=== PATIENT | female | born 1965 | race Caucasian/White ===

== ENCOUNTER 2017-01-14 04:50 | Inpatient (IN) | payer BC, OTHER ==
[~2017-01-14] VITALS: Ht 170.2 cm; Wt 108.0 kg
[2017-01-14] VITALS (9 sets, daily range): BP systolic 130–183; BP diastolic 80–98
[~2017-01-14 04:50] MED LIST: AC500T; DULA0.75 SQ; ENAL5TAB PO; ESTR2TAB PO; FENO145T2 PO; FLUC200T PO; GLIM4TAB PO; HCT25T PO; LEVO125T6 PO; LVT.15T; MECL25TA3 PO; MEDR2.5T PO; MELO-195 PO; METF-380 PO; ONDA4TAB8 SL; OXYC-12 PO; ROSU10TA12 PO; SCP1.5TD TD; SITA50TA PO; VENL150T4 PO
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
[2017-01-14] MEDS ORDERED: NS IV 1000 ML 1,000 ML IV ONE ×2 (05:16→07:37)
[2017-01-14 05:23] LABS: BASOPHILS % (AUTO) 0 % (0-10); EOSINOPHILS # (AUTO) 0.1 10^3/uL (0.0-0.3); EOSINOPHILS % (AUTO) 1 % (0-10); LYMPHOCYTES # (AUTO) 1.2 X 10^3 (1.0-4.0); LYMPHOCYTES % (AUTO) 9 % (12-44); MEAN CORPUSCULAR HEMOGLOBIN 32 PG (25-34); MEAN CORPUSCULAR HGB CONC 35 G/DL (32-36); MEAN CORPUSCULAR VOLUME 90 FL (80-99); MEAN PLATELET VOLUME 10.8 FL (7.4-10.4); MONOCYTES # (AUTO) 1.1 X 10^3 (0.0-1.0); MONOCYTES % (AUTO) 8 % (0-12); NEUTROPHILS # (AUTO) 11.3 X 10^3 (1.8-7.8); NEUTROPHILS % (AUTO) 83 % (42-75); PLATELET COUNT 231 10^3/uL (130-400); RED BLOOD COUNT 4.09 10^6/uL (4.35-5.85); RED CELL DISTRIBUTION WIDTH 13.3 % (10.0-14.5); WHITE BLOOD COUNT 13.7 10^3/uL (4.3-11.0)
--- NOTE | 2017-01-14 05:24 | ED Abdominal Pain ---
General Chief Complaint: Abdominal/GI Problems Stated Complaint: ABD & BACK PAIN Nursing Triage Note: PT TO ED 5 W/ FOR C/O ABD, EPIGASTRIC PAIN, N/V ONSET 0 LAST NOC AFTER EATING A BAKED CHICKEN FROM [employer]. Sepsis Screen: No Definite Risk Source of Information: Patient, Spouse Exam Limitations: No Limitations (RIO HATFIELD) History of Present Illness Time Seen By Provider: 05:10 Initial Comments Patient has ER by private conveyance with chief complaint that after eating some baked chicken last night she began to experience epigastric pain and nausea with some vomiting nonbloody nonbilious approximately 1800 yesterday. She was unable sleep fairly well overnight and it was not getting better she was continuing to have nausea so he came to the ER. She does not have any history of coronary disease. She has had her gallbladder out but not appendix. She does not know she has diverticula of the colon. She says she's felt chills and lack she has a fever all night. She took Tylenol with little to no relief. She's having no shortness of breath or cough. She does not have pain on deep inspiration. She's had no acid reflux. Her pain does not improve with defecation. She had a bowel movement yesterday morning that was normal and formed. No diarrhea. (RIO HATFIELD) Allergies and Home Medications Allergies Coded Allergies: Codeine (Unverified Allergy, Mild, 06/16/08) Home Medications Dulaglutide 0.75 Mg/0.5 Ml Pen.injctr, 0.75 MG SQ UD, (Reported) Enalapril Maleate 5 Mg Tablet, 5 MG PO DAILY, (Reported) Estradiol 2 Mg Tablet, 2 MG PO DAILY, (Reported) Fluconazole 200 Mg Tablet, 200 MG PO UD, (Reported) 2x weekly Glimepiride 4 Mg Tablet, 4 MG PO DAILY, (Reported) Hydrochlorothiazide 25 Mg Tab, 25 MG PO DAILY, (Reported) Levothyroxine Sodium 125 Mcg Tablet, 1 EACH PO DAILY, (Reported) Meclizine HCl 25 Mg Tablet, 25 MG PO Q6H PRN for VERTIGO, #30 Ref 0 Prescribed by: ROSSANA BAE on 08/08/152035 Medroxyprogesterone Acetate 2.5 Mg Tablet, 2.5 MG PO DAILY, (Reported) Meloxicam 15 Mg Tablet, 15 MG PO DAILY, (Reported) Metformin Hcl 1,000 Mg Tablet, 1 EACH PO BID WITH MEALS, (Reported) Ondansetron 4 Mg Tab.rapdis, 4 MG SL Q4H PRN for NAUSEA/VOMITING, #10 Prescribed by: GRACIELA GILMORE on 01/04/15 5913 Venlafaxine Hcl 150 Mg Tab.osm.24, 150 MG PO DAILY, (Reported) Review of Systems Constitutional: chills, fever, malaise EENTM: No Blurred Vision, No Double Vision Respiratory: Denies Cough, Denies Shortness of Air Cardiovascular: Denies Chest Pain, Denies Lightheadedness, Denies Syncope Gastrointestinal: See HPI, Abdominal Pain, Denies Constipated, Denies Diarrhea , Nausea, Vomiting Genitourinary: Denies Burning, Denies Discharge Musculoskeletal: back pain (lumbar new), No joint pain Skin: No pruritus, No rash Psychiatric/Neurological: Denies Headache, Denies Numbness, Denies Paresthesia (RIO HATFIELD) Past Lxasolg-Rehicl-Upjsvn Hx Patient Social History Alcohol Use: Denies Use Recreational Drug Use: No Smoking Status: Never a Smoker Recent Foreign Travel: No Contact w/Someone Who Travel: No Recent Infectious Disease Expo: No Recent Hopitalizations: No Physical Abuse: No Sexual Abuse: No Mistreated: No Fear: No (RIO HATFIELD) Seasonal Allergies Seasonal Allergies: No (RIO HATFIELD) Surgeries History of Surgeries: Yes (08/11/14 B[employer] SERV[employer] shunt for treatment of hydrocephalus) Surgeries: Gallbladder (RIO HATFIELD) Respiratory History of Respiratory Disorde: No (RIO HATFIELD) Cardiovascular History of Cardiac Disorders: Yes Cardiac Disorders: High Cholesterol, Hypertension (RIO HATFIELD) Neurological History of Neurological Disord: Yes (HYDROCEPHALUS, WITH POOR BALANCE AND URINARY INCONTINENCE) Neurological Disorders: Headaches /Migraines (RIO HATFIELD) Gastrointestinal History of Gastrointestinal Di: No (RIO HATFIELD) Musculoskeletal History of Musculoskeletal Dis: Yes Musculoskeletal Disorders: Arthritis, Chronic Back Pain (RIO HATFIELD) Endocrine History of Endocrine Disorders: Yes Endocrine Disorders: Hypothyroidsim, Diabetes, Non-Insulin dep (RIO HATFIELD) Cancer History of Cancer: No (RIO HATFIELD) Psychosocial History of Psychiatric Problem: No Suicide Risk Score: 0 (RIO HATFIELD) Integumentary History of Skin or Integumenta: No (RIO HATFIELD) Blood Transfusions History of Blood Disorders: No (RIO HATFIELD) Family Medical History Significant Family History: No Pertinent Family Hx (RIO HATFIELD) Physical Exam Vital Signs VS - Last 72 Hours, by Label 01/14/17 04:55 Temp 94.4 Pulse 73 Resp 18 B/P (MAP) 153/93 Pulse Ox 97 O2 Delivery Room Air (GRACIELA COOPER MD) Vital Signs Capillary Refill : Less Than 3 Seconds (RIO HATFIELD) General Appearance: WD/WN, mild distress HEENT: PERRL/EOMI, pharynx normal Neck: non-tender, supple, normal inspection Respiratory: chest non-tender, lungs clear, normal breath sounds, no respiratory distress Cardiovascular: normal peripheral pulses, regular rate, rhythm, no edema, systolic murmur (03/07) Peripheral Pulses: 2+ Dorsalis Pedis (R), 2+ Left Dors-Pedis (L) Gastrointestinal: normal bowel sounds, guarding, No rebound, tenderness ( epigastric, right upper quadrant but diffusely tender everywhere), No hepatomegaly, No spleenomegaly Extremities: non-tender, normal inspection, no pedal edema, no calf tenderness , normal capillary refill Back: normal inspection, no CVA tenderness Neurologic/Psychiatric: alert, normal mood/affect, oriented x 3 Skin: normal color, warm/dry (RIO HATFIELD) Focused Exam Evaluation Lactate Level Laboratory Tests 01/14/17 05:18: Lactic Acid Level 3.15*H 01/14/17 07:02: Lactic Acid Level 3.60*H (GRACIELA COOPER MD) Lactic Acid Level Laboratory Tests Test 01/14/17 05:18 01/14/17 07:02 Lactic Acid Level 3.15 MMOL/L (0.50-2.00) *H 3.60 MMOL/L (0.50-2.00) *H (GRACIELA COOPER MD) Progress/Results/Core Measures Results/Orders Lab Results Laboratory Tests Test 01/14/17 05:11 01/14/17 05:18 01/14/17 06:46 01/14/17 07:02 Range/Units White Blood Count 13.7 H 4.3-11.0 10^3/uL Red Blood Count 4.09 L 4.35-5.85 10^6/uL Hemoglobin 12.9 11.5-16.0 G/DL Hematocrit 37 35-52 % Mean Corpuscular Volume 90 80-99 FL Mean Corpuscular Hemoglobin 32 25-34 PG Mean Corpuscular Hemoglobin Concent 35 32-36 G/DL Red Cell Distribution Width 13.3 10.0-14.5 % Platelet Count 231 130-400 10^3/uL Mean Platelet Volume 10.8 H 7.4-10.4 FL Neutrophils (%) (Auto) 83 H 42-75 % Lymphocytes (%) (Auto) 9 L 12-44 % Monocytes (%) (Auto) 8 0-12 % Eosinophils (%) (Auto) 1 0-10 % Basophils (%) (Auto) 0 0-10 % Neutrophils # (Auto) 11.3 H 1.8-7.8 X 10^3 Lymphocytes # (Auto) 1.2 1.0-4.0 X 10^3 Monocytes # (Auto) 1.1 H 0.0-1.0 X 10^3 Eosinophils # (Auto) 0.1 0.0-0.3 10^3/uL Basophils # (Auto) 0.0 0.0-0.1 10^3/uL Prothrombin Time 11.0 L 12.2-14.7 SEC INR Comment 0.8 0.8-1.4 Activated Partial Thromboplast Time 29 24-35 SEC Sodium Level 127 L 135-145 MMOL/L Potassium Level 3.2 L 3.6-5.0 MMOL/L Chloride Level 89 L 98-107 MMOL/L Carbon Dioxide Level 9 *L 21-32 MMOL/L Anion Gap 29 H 5-14 MMOL/L Blood Urea Nitrogen 15 7-18 MG/DL Creatinine 0.77 0.60-1.30 MG/DL Estimat Glomerular Filtration Rate > 60 BUN/Creatinine Ratio 19 Glucose Level 282 H 70-105 MG/DL Calcium Level 9.2 8.5-10.1 MG/DL Magnesium Level 1.9 1.8-2.4 MG/DL Total Bilirubin 0.4 0.1-1.0 MG/DL Aspartate Amino Transf (AST/SGOT) 18 5-34 U/L Alanine Aminotransferase (ALT/SGPT) 32 0-55 U/L Alkaline Phosphatase 73 40-136 U/L Total Protein 8.0 6.4-8.2 GM/DL Albumin 3.8 3.2-4.5 GM/DL Lipase 7007 H 8-78 U/L Salicylates Level < 5.0 L 5.0-20.0 MG/DL Acetaminophen Level < 10 L 10-30 UG/ML Serum Alcohol < 10 <10 MG/DL Lactic Acid Level 3.15 *H 3.60 *H 0.50-2.00 MMOL/L Urine Color YELLOW Urine Clarity CLEAR Urine pH 8 5-9 Urine Specific [place] 1.010 L 1.016-1.022 Urine Protein 1+ H NEGATIVE Urine Glucose (UA) 4+ H NEGATIVE Urine Ketones 3+ H NEGATIVE Urine Nitrite NEGATIVE NEGATIVE Urine Bilirubin NEGATIVE NEGATIVE Urine Urobilinogen NORMAL NORMAL MG/DL Urine Leukocyte Esterase NEGATIVE NEGATIVE Urine RBC (Auto) NEGATIVE NEGATIVE Urine RBC NONE /HPF Urine WBC NONE /HPF Urine Squamous Epithelial Cells 0-2 /HPF Urine Crystals NONE /LPF Urine Bacteria NEGATIVE /HPF Urine Casts NONE /LPF Urine Mucus NEGATIVE /LPF Urine Culture Indicated NO Carboxyhemoglobin 2.5 0.5-2.5 % (GRACIELA COOPER MD) My Orders Orders - GRACIELA COOPER MD Promethazine Injection (Phenergan Injec (01/14/17 06:45) Promethazine Injection (Phenergan Injec (01/14/17 06:29) Morphine Injection (Morphine Injection (01/14/17 06:45) Ns Iv 1000 Ml (Sodium Chloride 0.9%) (01/14/17 07:37) (GRACIELA COOPER MD) Medications Given in ED Current Medications Medications Dose Ordered Sig/Shabana Route Start Time Stop Time Status Last Admin Dose Admin Fentanyl Citrate 50 mcg ONCE ONCE IVP 01/14/17 05:30 01/14/17 05:31 DC 01/14/17 05:26 50 MCG Iohexol 100 ml ONCE ONCE IV 01/14/17 06:30 01/14/17 06:31 DC 01/14/17 06:30 100 ML Ondansetron HCl 4 mg ONCE ONCE IVP 01/14/17 05:30 01/14/17 05:31 DC 01/14/17 05:26 4 MG Ondansetron HCl 4 mg ONCE ONCE IVP 01/14/17 06:00 01/14/17 06:01 DC 01/14/17 06:00 4 MG Piperacillin Sod/ Tazobactam Sod 4.5 gm/Sodium Chloride 100 ml @ 200 mls/hr ONCE ONCE IV 01/14/17 06:00 01/14/17 06:29 DC 01/14/17 07:29 200 MLS/HR Promethazine HCl 25 mg ONCE ONCE IVP 01/14/17 06:45 01/14/17 06:46 DC 01/14/17 06:41 25 MG Sodium Chloride 100 ml ONCE ONCE IV 01/14/17 06:30 01/14/17 06:31 DC 01/14/17 06:30 80 ML Sodium Chloride 1,000 ml @ 0 mls/hr Q0M ONCE IV 01/14/17 05:16 01/14/17 05:19 DC 01/14/17 05:26 1,000 MLS/HR (GRACIELA COOPER MD) Vital Signs/I&O Vital Sign - Last 12Hours 01/14/17 04:55 Temp 94.4 Pulse 73 Resp 18 B/P (MAP) 153/93 Pulse Ox 97 O2 Delivery Room Air (GRACIELA COOPER MD) Blood Pressure Mean: 113 Progress Note #1: Time: 05:30 Progress Note Pancreatitis versus diverticulitis versus PUD versus mesenteric ischemia. Progress Note #2: Time: 06:06 Progress Note Patient has an anion gap metabolic acidosis so we'll add an ethanol, salicylate , Tylenol, carboxyhemoglobin to her lab battery. She's improving somewhat with fluids. Progress Note #3: Time: 06:20 Progress Note Care transferred to Dr. Gilmore. Discussed case lab imaging and plan to get imaging of abdomen and chest looking for a source of the metabolic acidosis and lactic acidosis. (RIO HATFIELD) Progress Note #1: Time: 06:43 Progress Note Care of this patient was assumed from Dr. Hatfield. Case was reviewed in detail with Dr. Hatfield. We discussed labs and viewed the CT together. There are significant inflammatory changes in the upper abdomen around the duodenum. No free air was identified. Radiologist read is pending. Patient is still feeling rather ill with nausea and pain. Phenergan 25 mg has been ordered to be administered with the next liter of normal saline. Patient has received 1 L of saline so far. She will also receive a dose of Zosyn as intra-abdominal infection is presumed based on CT results. Blood cultures have been drawn. Morphine will be given for further pain relief. [employer] shunt was noted on the CT scan and terminates in the right lower abdomen. It does not seem to be involved in any area of inflammation seen on imaging. Progress Note #2: Time: 07:[address] scan revealed pancreatitis. Lipase was 7007. Patient reports her pain was not completely relieved with morphine. Nausea is improving with Phenergan. Patient has now received 2 L of IV fluids. Zosyn is being initiated. Case was reviewed with Dr. Dunham who agrees with admission. Sepsis will be included on the diagnoses as it cannot be ruled out at this time. Potassium 10 mEq is also being run. Consult for PICC line will be added to admission orders as patient has poor venous potential. (GRACIELA COOPER MD) Diagnostic Imaging Diagonstic Imaging: Xray Plain Films/CT/US/NM/MRI: chest (2v) Reviewed: Reviewed by Me Diagonstic Imaging: CT Plain Films/CT/US/NM/MRI: abdomen, pelvis (with contrast) Reviewed: Reviewed Night Joseph Study, Reviewed by Me (RIO HATFIELD) Comments CT scans viewed by me and [employer] report reviewed. See report below: 1. Acute pancreatitis without pancreatic necrosis or peripherally enhancing peripancreatic fluid collection. 2. Status post cholecystectomy without, and bile duct dilatation. 3. Hepatomegaly with steatosis. 4. B[employer] shunt. 5. Small sliding hiatal hernia. (GRACIELA COOPER MD) Transfer of Care Transfer of Care Time: 06:21 Care transferred to: Dr. Gilmore (RIO HATFIELD) Departure Communication (Admissions) Time/Spoke to Admitting Phy: 07:[address] Dunham (GRACIELA COOPER MD) Impression Impression: Primary Impression: Acute pancreatitis Qualified Codes: K85.90 - Acute pancreatitis without necrosis or infection, unspecified Additional Impressions: Metabolic acidosis Hypokalemia Hyponatremia Hypochloremia Sepsis Qualified Codes: A41.9 - Sepsis, unspecified organism Disposition: 09 ADMITTED INPATIENT Condition: Improved Admissions Decision to Admit Reason: Admit from ER (General) Decision to Admit/Date: Jan 14, 2017 Time/Decision to Admit Time: 06:04 (RIO HATFIELD) Decision to Admit Reason: Admit from ER (General) Decision to Admit/Date: Jan 14, 2017 Time/Decision to Admit Time: 06:04 (GRACIELA COOPER MD) Departure-Patient Inst. Referrals: ROSS DUNHAM MD (PCP/Family) Primary Care Physician Copy Copies To 1: ROSS DUNHAM MD, TITUS J Jan 14, 2017 05:24 GRACIELA COOPER MD Jan 14, 2017 06:49
[2017-01-14] MEDS ORDERED: fentaNYL INJECTION 100 MCG/2 ML AMP IVP ONE (05:30)
[2017-01-14] MEDS ORDERED: ONDANSETRON 4 MG/2 ML (SDV) Z0FRAN IVP ONE ×2 (05:30→06:00)
[2017-01-14 05:50] LABS: ALANINE AMINOTRANSFERASE 32 U/L (0-55); ALBUMIN 3.8 GM/DL (3.2-4.5); ASPARTATE AMINO TRANSFERASE 18 U/L (5-34); BILIRUBIN,TOTAL 0.4 MG/DL (0.1-1.0); BLOOD UREA NITROGEN 15 MG/DL (7-18); BUN/CREATININE RATIO 19; CALCIUM 9.2 MG/DL (8.5-10.1); CHLORIDE 89 MMOL/L (98-107); CREATININE SERUM 0.77 MG/DL (0.60-1.30); GFR ESTIMATED > 60; GLUCOSE 282 MG/DL (70-105); MAGNESIUM 1.9 MG/DL (1.8-2.4); POTASSIUM 3.2 MMOL/L (3.6-5.0); SODIUM 127 MMOL/L (135-145)
[2017-01-14 05:56] LABS: ANION GAP 29 MMOL/L (5-14); CARBON DIOXIDE 9 MMOL/L (21-32)
[2017-01-14 05:59] LABS: INR 0.8 (0.8-1.4)
[2017-01-14] MEDS ORDERED: PIPERACILLIN SODIUM/TAZOBACTAM 4.5 GM in NS (IVPB) 100 ML IV ONE (06:00)
[2017-01-14] MEDS ORDERED: POTASSIUM CL 10MEQ/50ML IVPB 50 ML IV ONE (06:15)
[2017-01-14 06:27] LABS: ALCOHOL < 10 MG/DL (<10)
[2017-01-14 06:29] LABS: ACETAMINOPHEN < 10 UG/ML (10-30)
[2017-01-14] MEDS ORDERED: PROMETHAZINE INJ 25 MG/ML (PHENERGAN) AMP ONE (06:29)
[2017-01-14] MEDS ORDERED: NS 100 ML (IVPB) BAG IV ONE (06:30)
[2017-01-14] MEDS ORDERED: IOHEXOL 350 MG/ML 100 ML (OMNIPAQUE 350) VIAL IV ONE (06:30)
[2017-01-14] MEDS: NS IV 1000 ML 1,000 ML IV SCH ×3 (06:41→10:42)
[2017-01-14 06:44] LABS: LIPASE 7007 U/L (8-78)
[2017-01-14] MEDS ORDERED: morphine INJ 10 MG/ML 1ML (SYR OR VIAL) IVP ONE (06:45)
[2017-01-14] MEDS ORDERED: PROMETHAZINE INJ 25 MG/ML (PHENERGAN) AMP IVP ONE (06:45)
[2017-01-14 06:49] LABS: SALICYLATE < 5.0 MG/DL (5.0-20.0)
[2017-01-14 06:54] LABS: BILIRUBIN,URINE NEGATIVE (NEGATIVE); KETONES,URINE 3+ (NEGATIVE); LEUKOCYTE ESTERASE ,URINE NEGATIVE (NEGATIVE); NITRITE,URINE NEGATIVE (NEGATIVE); PH,URINE 8 (5-9); PROTEIN,URINE 1+ (NEGATIVE); UROBILINOGEN,URINE NORMAL (NORMAL)
[2017-01-14 07:01] LABS: SQUAMOUS EPITHELIAL CELL,UR 0-2 /HPF
--- NOTE | 2017-01-14 07:55 | Diagnostic Imaging Report ---
PROCEDURE: CT abdomen and pelvis with contrast. TECHNIQUE: Multiple contiguous axial images were obtained through the abdomen and pelvis after administration of intravenous contrast. INDICATION: Nausea after eating chicken. FINDINGS: Lung bases are clear. There is edema surrounding the head of the pancreas. The head of the pancreas is slightly enlarged. Body and tail of the pancreas appear normal. Pancreatic duct is not dilated. Bile ducts are not dilated. There is hepatomegaly with hepatic steatosis. The spleen appears normal. The adrenal glands are normal. The kidneys appear normal. There is normal enhancement of the abdominal organs and vessels following IV contrast. Stomach and small bowel are not distended. The colon shows normal stool and gas pattern. No pelvic masses. Bladder appears normal. RN ONCOLOGY CLINICAL shunt is noted in the right side of the abdomen. IMPRESSION: 1. Hepatomegaly with hepatic steatosis. 2. Findings are consistent with acute pancreatitis. No evidence of pancreatic necrosis or hemorrhage. Dictated by: Dictated on workstation # [id number]
--- NOTE | 2017-01-14 07:56 | Diagnostic Imaging Report ---
INDICATION: Nausea and vomiting. FINDINGS: PA and lateral chest show the lungs to be well-aerated and clear. Heart is not enlarged. No pulmonary edema. No pneumothorax or pleural effusion. IMPRESSION: Normal PA and lateral chest. Dictated by: Dictated on workstation # [id number]
--- NOTE | 2017-01-14 08:43 | History & Physicial ---
History of Present Illness History of Present Illness Reason for visit/HPI PT IS A 51 Y/O FEMALE WHO IS KNOWN TO ME FROM CLINIC. SHE PRESENTED TO THE HOSPITAL WITH COMPLAINT OF NAUSEA, ABDOMINAL PAIN, AND WAS FOUND TO HAVE ACUTE PANCREATITIS AND METABOLIC ACIDOSIS. Date of Admission Jan 14, 2017 at 07:37 Time Seen by Provider: 08:45 I consulted on this patient on 01/14/17 08:38 Attending Physician Ross Dunham MD Admitting Physician Ross Dunham MD Consult Allergies and Home Medications Allergies Coded Allergies: codeine (Unverified Allergy, Mild, 06/16/08) Home Medications Dulaglutide 0.75 Mg/0.5 Ml Pen.injctr, 0.75 MG INJ Tu, (Reported) Enalapril Maleate 5 Mg Tablet, 5 MG PO DAILY, (Reported) Estradiol 2 Mg Tablet, 2 MG PO HS, (Reported) Fenofibrate Nanocrystallized 145 Mg Tablet, 145 MG PO HS, (Reported) LAST FILLED #30 10-08-16 Fluconazole 200 Mg Tablet, 200 MG PO MoTh, (Reported) Glimepiride 4 Mg Tablet, 4 MG PO DAILY, (Reported) Hydrochlorothiazide 25 Mg Tablet, 25 MG PO DAILY, (Reported) Levothyroxine Sodium 125 Mcg Tablet, 125 MCG PO DAILY, (Reported) Medroxyprogesterone Acetate 2.5 Mg Tablet, 2.5 MG PO DAILY, (Reported) Meloxicam 15 Mg Tablet, 15 MG PO DAILY, (Reported) Metformin HCl 1,000 Mg Tablet, 1,000 MG PO BID, (Reported) Pravastatin Sodium 10 Mg Tablet, 10 MG PO HS, (Reported) Venlafaxine HCl 150 Mg Cap.er.24h, 150 MG PO 1900, (Reported) Past Xkuqerd-Tzfdtf-Mkryiv Hx Patient Social History Living Status: [place] Employed/Student: employed Alcohol Use: Denies Use Recreational Drug Use: No Smoking Status: Never a Smoker 2nd Hand Smoke Exposure: No Physical Abuse Screen: No Sexual Abuse: No Recent Foreign Travel: No Contact w/other who traveled: No Recent Hopitalizations: No Recent Infectious Disease Expo: No Seasonal Allergies Seasonal Allergies: No Surgeries Yes (08/11/14 POSTAL MAIL CARRIER shunt for treatment of hydrocephalus) Gallbladder Respiratory No Cardiovascular Yes High Cholesterol, Hypertension Neurological Yes (HYDROCEPHALUS, WITH POOR BALANCE AND URINARY INCONTINENCE) Headaches /Migraines Gastrointestinal No Musculoskeletal Yes Arthritis, Chronic Back Pain Endocrine History of Endocrine Disorders: Yes Endocrine Disorders: Hypothyroidsim, Diabetes, Non-Insulin dep Cancer No Psychosocial History of Psychiatric Problem: Yes Behavioral Health Disorders: Depression Integumentary History of Skin or Integumenta: No Blood Transfusions History of Blood Disorders: No Reviewed Nursing Assessment Reviewed/Agree w Nursing PMH: Yes Family Medical History Significant Family History: Hypertension Constitutional: No chills, fever, malaise, weakness EENTM: No hoarseness, No throat pain Respiratory: No cough, No dyspnea on exertion, No short of breath Cardiovascular: No chest pain, No edema, No palpitations Gastrointestinal: abdominal pain, diarrhea, nausea, vomiting Genitourinary: no symptoms reported Musculoskeletal: No back pain, No muscle stiffness, No muscle weakness Skin: no symptoms reported Psychiatric/Neurological: Denies Anxiety, Denies Depressed All Other Systems Reviewed Negative Unless Noted: Yes Physical Exam Vital Signs Vital Sign - Last 12Hours 01/14/17 04:55 Temp 94.4 Pulse 73 Resp 18 B/P (MAP) 153/93 Pulse Ox 97 O2 Delivery Room Air Capillary Refill : Less Than 3 Seconds General Appearance: WD/WN, Mild Distress Eyes: Bilateral Eye Normal Inspection, Bilateral Eye PERRL, Bilateral Eye EOMI HEENT: PERRL/EOMI, Pharynx Normal Neck: Full Range of Motion, Non Tender, Supple Respiratory: Chest Non Tender, Lungs Clear, Normal Breath Sounds, No Accessory Muscle Use Cardiovascular: Tachycardia Gastrointestinal: Soft, Tenderness (DIFFUSELY) Rectal: Deferred Back: Normal Inspection Extremity: Normal Capillary Refill, Non Tender, No Calf Tenderness, No Pedal Edema Neurologic/Psychiatric: Alert, Oriented x3, Normal Mood/Affect Skin: Warm/Dry Lymphatic: No Adenopathy Assessment/Plan Assessment and Plan ACUTE PANCREATITIS SEPSIS METABOLIC ACIDOSIS HYPONATREMIA HYPOKALEMIA DIABETES MELLITUS HYPERTENSION ACUTE PANCREATITIS - IV ANTIBIOTICS, IV FLUIDS, NPO EXCEPT ICE CHIPS CT SCAN IMPRESSION FOLLOWS: IMPRESSION: 1. Hepatomegaly with hepatic steatosis. 2. Findings are consistent with acute pancreatitis. No evidence of pancreatic necrosis or hemorrhage. SEPSIS - ON ZOSYN IV METABOLIC ACIDOSIS - MONITOR LABS, SUPPORTIVE CARE WITH IV FLUIDS, ANTICIPATE IMPROVEMENT PT IS HYDRATED AND HER SEPSIS AND ACUTE PANCREATITIS IS TREATED. HYPONATREMIA AND HYPOKALEMIA - SUPPORTIVE CARE, IV FLUIDS, MONITOR LABS. DIABETES MELLITUS - MONITOR LABS, WILL TREAT WITH INSULIN IV PRN, HOLD ALL HOME DIABETIC MEDICATIONS. HYPERTENSION - CHRONIC - MONITOR PRESSURE HOLD ORAL HOME MEDICATIONS. DVT PROPHYLAXIS WILL BE WITH SCD'S AND LOVENOX. GI PROPHYLAXIS WITH IV PROTONIX Problems: Admission Diagnosis ACUTE PANCREATITIS SEPSIS METABOLIC ACIDOSIS HYPONATREMIA HYPOKALEMIA DIABETES MELLITUS HYPERTENSION ROSS DUNHAM MD Jan 14, 2017 08:43
[2017-01-14] MEDS ORDERED: fentaNYL INJECTION 100 MCG/2 ML AMP IVP PRN (09:00)
[2017-01-14] MEDS ORDERED: NS IV 1000 ML 1,000 ML IV SCH (09:04)
[2017-01-14] MEDS ORDERED: NS IV 1000 ML 2,500 ML IV PRN (09:15)
[2017-01-14] MEDS ORDERED: NALOXONE 0.4 MG/ML 1 ML (NARCAN) VIAL IV PRN (09:15)
[2017-01-14] MEDS ORDERED: diphenhydrAMINE 50 MG/ML INJ (BENADRYL) IV PRN (09:15)
[2017-01-14] MEDS ORDERED: PROMETHAZINE INJ 25 MG/ML (PHENERGAN) AMP IV PRN (09:30)
[2017-01-14] MEDS: FAMOTIDINE 20MG/2ML IV (PEPCID) IV SCH ×2 (09:43→21:22)
[2017-01-14] MEDS: ENOXAPARIN 40 MG/0.4 ML (LOVENOX) SYR SC SCH (09:43)
[2017-01-14] MEDS ORDERED: PRAV10TA PO (10:11)
[2017-01-14] MEDS ORDERED: ENAL5TAB PO (10:11)
[2017-01-14] MEDS ORDERED: DULA0.75 INJ (10:11)
[2017-01-14] MEDS ORDERED: VENL150C98 PO (10:11)
[2017-01-14] MEDS ORDERED: GLIM4TAB PO (10:11)
[2017-01-14] MEDS ORDERED: LEVO125T6 PO (10:11)
[2017-01-14] MEDS ORDERED: HYDR25TA4 PO (10:11)
[2017-01-14] MEDS ORDERED: ESTR2TAB PO (10:11)
[2017-01-14] MEDS ORDERED: FENO145T20 PO (10:11)
[2017-01-14] MEDS: fentaNYL PCA 300 MCG/30 ML VIAL IV PRN ×2 (10:18→23:01)
[2017-01-14] MEDS ORDERED: MELO15TA39 PO (10:20)
[2017-01-14] MEDS ORDERED: METF1000 PO (10:20)
[2017-01-14] MEDS ORDERED: FLUC200T5 PO (10:20)
[2017-01-14] MEDS ORDERED: MEDR2.5T PO (10:26)
[2017-01-14] MEDS: inSUlin (REGULAR) HUMAN 1 UNIT/0.01 ML (CHARGE PER UNIT) SC SCH ×2 (12:10→17:59)
[2017-01-14] MEDS: ONDANSETRON 4 MG/2 ML (SDV) Z0FRAN IV PRN (13:30)
[2017-01-14] MEDS ORDERED: INFLUENZA TRIvalent 2017-2018 0.5 ML/45 MCG SYR IM ONE (14:15)
[2017-01-14] MEDS: NS W/KCL 20 MEQ/L 1,000 ML IV SCH ×3 (14:23→22:43)
[2017-01-14] MEDS: PIPERACILLIN/TAZOBACTAM 4.5 GM/NS 100 ML IVPB IV SCH ×4 (14:23→21:22)
[2017-01-14] MEDS ORDERED: NS (IVPB) 0 ML ONE (22:30)
[2017-01-14] MEDS ORDERED: CEFUROXIME 750 MG (ZINACEF) VIAL ONE (22:30)
[2017-01-15] VITALS: BP 137/88
[2017-01-15] MEDS: inSUlin (REGULAR) HUMAN 1 UNIT/0.01 ML (CHARGE PER UNIT) SC SCH ×5 (00:18→21:43)
[2017-01-15] MEDS: ONDANSETRON 4 MG/2 ML (SDV) Z0FRAN IV PRN (02:48)
[2017-01-15 04:00] VITALS: BP 124/89
[2017-01-15] MEDS: PIPERACILLIN/TAZOBACTAM 4.5 GM/NS 100 ML IVPB IV SCH ×6 (05:45→21:07)
[2017-01-15 06:05] LABS: MEAN PLATELET VOLUME 11.4 FL (7.4-10.4); RED BLOOD COUNT 4.79 10^6/uL (4.35-5.85); RED CELL DISTRIBUTION WIDTH 14.6 % (10.0-14.5); WHITE BLOOD COUNT 6.2 10^3/uL (4.3-11.0)
[2017-01-15] MEDS: NS W/KCL 20 MEQ/L 1,000 ML IV SCH (06:32)
[2017-01-15 06:43] LABS: ALANINE AMINOTRANSFERASE 23 U/L (0-55); ALBUMIN 2.9 GM/DL (3.2-4.5); ASPARTATE AMINO TRANSFERASE 25 U/L (5-34); BILIRUBIN,TOTAL 0.4 MG/DL (0.1-1.0); BLOOD UREA NITROGEN 16 MG/DL (7-18); BUN/CREATININE RATIO 16; CALCIUM 6.2 MG/DL (8.5-10.1); CHLORIDE 103 MMOL/L (98-107); CREATININE SERUM 0.99 MG/DL (0.60-1.30); GFR ESTIMATED 59; GLUCOSE 340 MG/DL (70-105); POTASSIUM 4.5 MMOL/L (3.6-5.0); SODIUM 132 MMOL/L (135-145); TOTAL PROTEIN 6.9 GM/DL (6.4-8.2)
[2017-01-15 06:45] LABS: ANION GAP 24 MMOL/L (5-14)
[2017-01-15 06:55] LABS: CARBON DIOXIDE < 5 MMOL/L (21-32)
[2017-01-15 08:00] VITALS: BP 128/80
--- NOTE | 2017-01-15 08:27 | Progress Note (SOAP) ---
Subjective Date Seen by Provider: Jan 15, 2017 Time Seen by Provider: 08:25 Subjective/Events-last exam PT REPORTS THAT SHE DOES FEEL A LITTLE BIT BETTER TODAY COMPARED TO YESTERDAY. SHE REPORTS THAT SHE IS TOLERATING THE ICE CHIPS WITHOUT INCIDENT AND THAT SHE THINKS HER PAIN IS IMPROVED TODAY. Review of Systems General: No Chills, Fatigue HEENT: No Head Aches, No Dysphasia, No Sore Throat Pulmonary: No Dyspnea, No Cough Cardiovascular: No: Chest Pain, Palpitations Gastrointestinal: Abdominal Pain, No: Nausea Genitourinary: No Dysuria, Frequency Musculoskeletal: No: back pain Neurological: No: Weakness, Confusion Objective Exam Vital Signs Date Time Temp Pulse Resp B/P (MAP) Pulse Ox O2 Delivery O2 Flow Rate FiO2 01/15/17 06:34 92 Room Air 01/15/17 05:48 18 01/15/17 04:00 97.3 123 28 124/89 94 Room Air 01/15/17 02:29 92 Room Air 01/15/17 00:00 97.0 126 25 137/88 95 Room Air 01/14/17 23:01 18 01/14/17 23:01 18 01/14/17 22:25 91 Room Air 01/14/17 20:25 98.7 120 18 134/82 95 Room Air 01/14/17 19:17 92 Room Air 01/14/17 18:03 99.5 125 20 130/81 94 Room Air 01/14/17 17:29 125 20 138/81 95 Room Air 01/14/17 16:00 99.1 111 18 161/89 95 Room Air 01/14/17 15:13 117 18 165/95 94 Room Air 01/14/17 15:01 95 Room Air 01/14/17 14:52 114 19 162/94 95 Room Air 01/14/17 14:41 98.3 115 19 170/92 93 Room Air 01/14/17 14:15 93 Room Air 01/14/17 12:00 97.8 108 28 181/98 94 Room Air 01/14/17 10:35 97 Room Air 01/14/17 09:10 97.8 89 20 183/80 96 Room Air 01/14/17 08:45 80 18 99 Capillary Refill : Less Than 3 Seconds General Appearance: No Apparent Distress, WD/WN HEENT: PERRL/EOMI, Pharynx Normal Neck: Full Range of Motion, Supple Respiratory: Chest Non Tender, Lungs Clear, Normal Breath Sounds, No Accessory Muscle Use Cardiovascular: Regular Rate, Rhythm, No Edema Gastrointestinal: distended, other (DECREASED BOWEL SOUNDS, TENDER TO PALPATION OVER EPIGASTRUM, RIGHT AND LEFT UPPER QUADRANTS, BUT NOT IN LOWER ABDOMEN) Extremity: Normal Capillary Refill Neurologic/Psychiatric: Alert, Oriented x3, No Motor/Sensory Deficits, Normal Mood/Affect Skin: Warm/Dry Lymphatic: No Adenopathy Results Lab Laboratory Tests 01/14/17 13:08: Glucometer 252H 01/14/17 13:19: Lactic Acid Level 3.30*H 01/14/17 17:48: Glucometer 292H 01/15/17 00:04: Glucometer 319H 01/15/17 05:24: Glucometer 291H 01/15/17 05:44: White Blood Count 6.2, Red Blood Count 4.79, Hemoglobin 14.5, Hematocrit 44, Mean Corpuscular Volume 91, Mean Corpuscular Hemoglobin 30, Mean Corpuscular Hemoglobin Concent 33, Red Cell Distribution Width 14.6H, Platelet Count 331, Mean Platelet Volume 11.4H, Sodium Level 132L, Potassium Level 4.5, Chloride Level 103, Carbon Dioxide Level < 5*L, Anion Gap 24H, Blood Urea Nitrogen 16, Creatinine 0.99, Estimat Glomerular Filtration Rate 59, BUN/Creatinine Ratio 16 , Glucose Level 340H, Calcium Level 6.2L, Total Bilirubin 0.4, Aspartate Amino Transf (AST/SGOT) 25, Alanine Aminotransferase (ALT/SGPT) 23, Alkaline Phosphatase 45, Total Protein 6.9, Albumin 2.9L Assessment/Plan Assessment/Plan Assess & Plan/Chief Complaint ACUTE PANCREATITIS SEPSIS METABOLIC ACIDOSIS HYPONATREMIA HYPOKALEMIA DIABETES MELLITUS HYPERTENSION ACUTE PANCREATITIS - IV ANTIBIOTICS, IV FLUIDS, NPO EXCEPT ICE CHIPS CT SCAN IMPRESSION FOLLOWS: IMPRESSION: 1. Hepatomegaly with hepatic steatosis. 2. Findings are consistent with acute pancreatitis. No evidence of pancreatic necrosis or hemorrhage. SEPSIS - ON ZOSYN IV METABOLIC ACIDOSIS - MONITOR LABS - CO2 LOW THIS MORNING - CRITICALLY LOW BELOW 5 - PT TO BE GIVEN SODIUM BICARB THIS MORNING, MONITOR LABS AT 1400, SUPPORTIVE CARE WITH IV FLUIDS, ANTICIPATE IMPROVEMENT PT IS HYDRATED AND HER SEPSIS AND ACUTE PANCREATITIS IS TREATED. HYPONATREMIA AND HYPOKALEMIA - SUPPORTIVE CARE, IV FLUIDS, MONITOR LABS. DIABETES MELLITUS - MONITOR LABS, WILL TREAT WITH INSULIN SQ - CHANGE TO SLIDING SCALE B, HOLD ALL HOME DIABETIC MEDICATIONS. HYPERTENSION - CHRONIC - MONITOR PRESSURE HOLD ORAL HOME MEDICATIONS. DVT PROPHYLAXIS WILL BE WITH SCD'S AND LOVENOX. GI PROPHYLAXIS WITH IV PROTONIX Clinical Quality Measures DVT/VTE Risk/Contraindication: Risk Factor Score Per Nursin RFS Level Per Nursing on Admit: 4+=Very High ROSS MCNALLY MD Jan 15, 2017 08:27
[2017-01-15] MEDS: SENNA W/DOCUSATE (SENOKOT S) TABLET PO SCH (08:46)
[2017-01-15] MEDS: FAMOTIDINE 20MG/2ML IV (PEPCID) IV SCH ×2 (08:48→21:07)
[2017-01-15] MEDS: ENOXAPARIN 40 MG/0.4 ML (LOVENOX) SYR SC SCH (08:53)
[2017-01-15] MEDS: SODIUM BICARBONATE 8.4% VIAL 75 MEQ in 1/2 NS IV SOLUTION 1,000 ML IV SCH ×2 (09:24→18:07)
[2017-01-15 12:00] VITALS: BP 159/96
[2017-01-15] MEDS: fentaNYL PCA 300 MCG/30 ML VIAL IV PRN (12:34)
[2017-01-15 14:43] LABS: BLOOD UREA NITROGEN 17 MG/DL (7-18); BUN/CREATININE RATIO 19; CHLORIDE 104 MMOL/L (98-107); CREATININE SERUM 0.89 MG/DL (0.60-1.30); GFR ESTIMATED > 60; GLUCOSE 272 MG/DL (70-105); SODIUM 134 MMOL/L (135-145)
[2017-01-15 14:48] LABS: ANION GAP 22 MMOL/L (5-14); CALCIUM 5.9 MG/DL (8.5-10.1); CARBON DIOXIDE 8 MMOL/L (21-32)
[2017-01-15 14:49] LABS: POTASSIUM 3.9 MMOL/L (3.6-5.0)
[2017-01-15 15:57] VITALS: BP 127/81
[2017-01-15 19:43] VITALS: BP 127/81
[2017-01-16] VITALS (10 sets, daily range): BP systolic 137–176; BP diastolic 72–89
[2017-01-16] MEDS: fentaNYL PCA 300 MCG/30 ML VIAL IV PRN ×2 (00:51→13:24)
[2017-01-16] MEDS: SODIUM BICARBONATE 8.4% VIAL 75 MEQ in 1/2 NS IV SOLUTION 1,000 ML IV SCH ×4 (01:58→22:39)
[2017-01-16] MEDS: ONDANSETRON 4 MG/2 ML (SDV) Z0FRAN IV PRN (03:16)
[2017-01-16] MEDS: inSUlin (REGULAR) HUMAN 1 UNIT/0.01 ML (CHARGE PER UNIT) SC SCH ×3 (05:33→16:10)
[2017-01-16] MEDS: PIPERACILLIN/TAZOBACTAM 4.5 GM/NS 100 ML IVPB IV SCH ×6 (06:39→22:39)
[2017-01-16 07:47] LABS: RED BLOOD COUNT 4.01 10^6/uL (4.35-5.85); RED CELL DISTRIBUTION WIDTH 14.2 % (10.0-14.5); WHITE BLOOD COUNT 8.4 10^3/uL (4.3-11.0)
[2017-01-16 08:04] LABS: ALANINE AMINOTRANSFERASE 20 U/L (0-55); ALBUMIN 2.7 GM/DL (3.2-4.5); ANION GAP 21 MMOL/L (5-14); ASPARTATE AMINO TRANSFERASE 22 U/L (5-34); BILIRUBIN,TOTAL 0.4 MG/DL (0.1-1.0); BLOOD UREA NITROGEN 18 MG/DL (7-18); BUN/CREATININE RATIO 25; CARBON DIOXIDE 13 MMOL/L (21-32); CHLORIDE 101 MMOL/L (98-107); CREATININE SERUM 0.72 MG/DL (0.60-1.30); GFR ESTIMATED > 60; GLUCOSE 202 MG/DL (70-105); LIPASE 435 U/L (8-78); POTASSIUM 3.3 MMOL/L (3.6-5.0); SODIUM 135 MMOL/L (135-145); TOTAL PROTEIN 6.1 GM/DL (6.4-8.2)
[2017-01-16 08:08] LABS: CALCIUM 5.3 MG/DL (8.5-10.1)
[2017-01-16] MEDS: SENNA W/DOCUSATE (SENOKOT S) TABLET PO SCH (08:31)
[2017-01-16] MEDS: FAMOTIDINE 20MG/2ML IV (PEPCID) IV SCH ×2 (08:39→22:39)
[2017-01-16] MEDS: ENOXAPARIN 40 MG/0.4 ML (LOVENOX) SYR SC SCH (08:40)
--- NOTE | 2017-01-16 08:48 | Progress Note (SOAP) ---
Subjective Date Seen by Provider: Jan 16, 2017 Time Seen by Provider: 08:40 Subjective/Events-last exam PT REPORTS THAT SHE IS FEELING BETTER TODAY EXCEPT FOR HER BACK HURTS AND SHE ACHES FROM THE BED AND THE CHAIR. SHE STATES THAT HER STOMACH IS STILL PAINFUL , BUT IT IS BETTER THAN ON ADMISSION AND FEELS BETTER THAN IT DID YESTERDAY. SHE HAS BEEN BELCHING, BUT HAS NOT PASSED ANY GAS. Review of Systems General: Fatigue HEENT: No Head Aches Pulmonary: No Dyspnea, No Cough Cardiovascular: No: Chest Pain, Palpitations Gastrointestinal: No: Nausea, Abdominal Pain Genitourinary: Frequency Musculoskeletal: back pain Neurological: Weakness, No: Confusion Objective Exam Vital Signs Date Time Temp Pulse Resp B/P (MAP) Pulse Ox O2 Delivery O2 Flow Rate FiO2 01/16/17 05:30 21 01/16/17 04:52 97.4 115 36 145/74 92 Room Air 01/16/17 02:37 92 Room Air 01/16/17 00:51 32 01/16/17 00:00 98.5 117 30 176/72 94 Room Air 01/15/17 22:22 92 Room Air 01/15/17 19:43 98.1 131 32 127/81 95 Room Air 01/15/17 18:45 95 Room Air 01/15/17 18:00 43 01/15/17 15:57 97.1 118 43 127/81 95 Room Air 01/15/17 14:06 95 Room Air 01/15/17 12:34 27 01/15/17 12:00 96.5 119 40 159/96 95 Room Air 01/15/17 10:33 94 Room Air Capillary Refill : Less Than 3 Seconds General Appearance: No Apparent Distress, WD/WN HEENT: PERRL/EOMI, Pharynx Normal Neck: Full Range of Motion, Supple Respiratory: Chest Non Tender, Lungs Clear, Normal Breath Sounds Cardiovascular: Regular Rate, Rhythm, No Edema Gastrointestinal: other (DECREASED BOWEL SOUNDS - BUT IMPROVED FROM YESTERDAY - 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, BUT IS IMPROVED OVERALL) Extremity: Normal Capillary Refill, Pedal Edema (1+) Neurologic/Psychiatric: Alert, Oriented x3, Normal Mood/Affect Skin: Normal Color, Warm/Dry Lymphatic: No Adenopathy Results Lab Laboratory Tests 01/15/17 11:17: Glucometer 277H 01/15/17 14:10: Sodium Level 134L, Potassium Level 3.9, Chloride Level 104, Carbon Dioxide Level 8*L, Anion Gap 22H, Blood Urea Nitrogen 17, Creatinine 0.89, Estimat Glomerular Filtration Rate > 60, BUN/Creatinine Ratio 19, Glucose Level 272H, Calcium Level 5.9*L 01/15/17 15:56: Glucometer 248H 01/15/17 21:09: Glucometer 201H 01/16/17 05:20: Glucometer 222H 01/16/17 07:25: White Blood Count 8.4, Red Blood Count 4.01L, Hemoglobin 12.2, Hematocrit 37, Mean Corpuscular Volume 92, Mean Corpuscular Hemoglobin 30, Mean Corpuscular Hemoglobin Concent 33, Red Cell Distribution Width 14.2, Platelet Count 255, Mean Platelet Volume 11.0H, Sodium Level 135, Potassium Level 3.3L, Chloride Level 101, Carbon Dioxide Level 13L, Anion Gap 21H, Blood Urea Nitrogen 18, Creatinine 0.72, Estimat Glomerular Filtration Rate > 60, BUN/Creatinine Ratio 25, Glucose Level 202H, Calcium Level 5.3*L, Total Bilirubin 0.4, Aspartate Amino Transf (AST/SGOT) 22, Alanine Aminotransferase (ALT/SGPT) 20, Alkaline Phosphatase 43, Total Protein 6.1L, Albumin 2.7L, Lipase 435H Microbiology 01/14/17 Blood Culture - Preliminary, Resulted No growth Assessment/Plan Assessment/Plan Assess & Plan/Chief Complaint ACUTE PANCREATITIS SEPSIS METABOLIC ACIDOSIS HYPONATREMIA HYPOKALEMIA DIABETES MELLITUS HYPERTENSION ACUTE PANCREATITIS - IV ANTIBIOTICS, IV FLUIDS, NPO EXCEPT ICE CHIPS AND ADDED JELLO TODAY, LIPASE HAS IMPROVED SIGNIFICANTLY CT SCAN IMPRESSION FOLLOWS: IMPRESSION: 1. Hepatomegaly with hepatic steatosis. 2. Findings are consistent with acute pancreatitis. No evidence of pancreatic necrosis or hemorrhage. SEPSIS - ON ZOSYN IV METABOLIC ACIDOSIS - MONITOR LABS - CO2 LOW THIS MORNING - BUT IMPROVED FROM 5 YESTERDAY - CONTINUE WITH IV FLUIDS WITH SODIUM BICARB IN FLUIDS, HOPEFULLY TOMORROW, THE ON-CALL PHYSICIAN CAN DECREASE OR STOP THE SODIUM BICARB FLUIDS AND JUST GIVE NORMAL SALINE - ANTICIPATE IMPROVEMENT PT IS HYDRATED AND HER SEPSIS AND ACUTE PANCREATITIS IS TREATED. HYPONATREMIA AND HYPOKALEMIA AND HYPOMAGNESEMIA - HYPONATREMIA - IMPROVED, HYPOKALEMIA -AND HYPOMAGNESEMIA - GIVE POTASSIUM AND MAGNESIUM IV TODAY - SUPPORTIVE CARE, IV FLUIDS, MONITOR LABS. DIABETES MELLITUS - MONITOR LABS, WILL TREAT WITH INSULIN SQ - CHANGED TO SLIDING SCALE B, HOLD ALL HOME DIABETIC MEDICATIONS. HYPERTENSION - CHRONIC - MONITOR PRESSURE HOLD ORAL HOME MEDICATIONS. DVT PROPHYLAXIS WILL BE WITH SCD'S AND LOVENOX. GI PROPHYLAXIS WITH IV PROTONIX Clinical Quality Measures DVT/VTE Risk/Contraindication: Risk Factor Score Per Nursin RFS Level Per Nursing on Admit: 4+=Very High ROSS MCNALLY MD Jan 16, 2017 08:48
[2017-01-16] MEDS: POTASSIUM CL 10MEQ/50ML IVPB 50 ML IV SCH ×4 (09:32→23:18)
[2017-01-16] MEDS: CALCIUM CARBONATE 500 MG (TUMS) TAB.CHEW PO SCH ×3 (09:32→22:45)
[2017-01-16] MEDS ORDERED: FUROSEMIDE 40 MG/4 ML INJ (LASIX) IVP NR (09:45)
[2017-01-16] MEDS: MAGNESIUM 1 GM/100 ML IVPB 100 ML IV SCH ×4 (09:53→23:18)
[2017-01-16 22:17] LABS: BASOPHILS % (AUTO) 0 % (0-10); EOSINOPHILS # (AUTO) 0.2 10^3/uL (0.0-0.3); EOSINOPHILS % (AUTO) 2 % (0-10); LYMPHOCYTES # (AUTO) 1.3 X 10^3 (1.0-4.0); LYMPHOCYTES % (AUTO) 14 % (12-44); MEAN CORPUSCULAR HEMOGLOBIN 31 PG (25-34); MEAN CORPUSCULAR HGB CONC 34 G/DL (32-36); MEAN CORPUSCULAR VOLUME 91 FL (80-99); MEAN PLATELET VOLUME 10.5 FL (7.4-10.4); MONOCYTES # (AUTO) 0.5 X 10^3 (0.0-1.0); MONOCYTES % (AUTO) 5 % (0-12); NEUTROPHILS # (AUTO) 7.4 X 10^3 (1.8-7.8); NEUTROPHILS % (AUTO) 79 % (42-75); PLATELET COUNT 226 10^3/uL (130-400); RED BLOOD COUNT 3.54 10^6/uL (4.35-5.85); RED CELL DISTRIBUTION WIDTH 14.1 % (10.0-14.5); WHITE BLOOD COUNT 9.4 10^3/uL (4.3-11.0)
[2017-01-16 22:35] LABS: ALBUMIN 2.7 GM/DL (3.2-4.5); ANION GAP 19 MMOL/L (5-14); BLOOD UREA NITROGEN 16 MG/DL (7-18); BUN/CREATININE RATIO 22; CARBON DIOXIDE 17 MMOL/L (21-32); CHLORIDE 95 MMOL/L (98-107); CREATININE SERUM 0.73 MG/DL (0.60-1.30); GFR ESTIMATED > 60; GLUCOSE 195 MG/DL (70-105); POTASSIUM 3.1 MMOL/L (3.6-5.0); SODIUM 131 MMOL/L (135-145)
[2017-01-16 22:41] LABS: CALCIUM 5.4 MG/DL (8.5-10.1)
[2017-01-16 22:43] LABS: TROPONIN I < 0.30 NG/ML (<0.30)
[2017-01-16] MEDS ORDERED: POTASSIUM CL 10MEQ/50ML IVPB 400 ML IV ONE (23:07)
[2017-01-16] MEDS ORDERED: MAGNESIUM 1 GM/100 ML IVPB 200 ML IV ONE (23:07)
[2017-01-16] MEDS ORDERED: INJECT IV ONE (23:30)
[2017-01-16] MEDS ORDERED: NORMAL SALINE IV ONE (23:30)
[2017-01-16] MEDS ORDERED: CALCIUM GLUCONATE 10% IV ONE (23:30)
[2017-01-16 23:39] LABS: ABG BASE EXCESS 1.5 MMOL/L (-2.5-2.5); ABG HCO3 25 MMOL/L (23-27); ABG OXYGEN SATURATION 92 % (94-100); ABG PCO2 37 MMHG (35-45); ABG PH 7.45 (7.37-7.43); ABG PO2 58 MMHG (79-93); ABG TCO2 26.1 MMOL/L (21.0-31.0); ALLENS TEST YES-POS
[2017-01-16 23:40] LABS: PATIENT TEMP 99.7
[2017-01-16] MEDS ORDERED: CALCIUM GLUC. 10% 4.65 MEQ/10 ML VIAL ONE ×3 (23:47→23:59)
[2017-01-16] MEDS ORDERED: NS IV 500 ML 500 ML ONE (23:57)
[2017-01-17] VITALS (21 sets, daily range): BP systolic 125–171; BP diastolic 60–93
[2017-01-17] MEDS: inSUlin (REGULAR) HUMAN 1 UNIT/0.01 ML (CHARGE PER UNIT) SC SCH ×5 (00:07→20:44)
[2017-01-17] MEDS: POTASSIUM CL 10MEQ/50ML IVPB 50 ML IV SCH ×7 (00:07→05:14)
[2017-01-17] MEDS: MAGNESIUM 1 GM/100 ML IVPB 100 ML IV SCH ×2 (00:23→05:14)
[2017-01-17 01:39] LABS: BILIRUBIN,URINE NEGATIVE (NEGATIVE); KETONES,URINE 3+ (NEGATIVE); LEUKOCYTE ESTERASE ,URINE NEGATIVE (NEGATIVE); NITRITE,URINE NEGATIVE (NEGATIVE); PH,URINE 6 (5-9); PROTEIN,URINE 3+ (NEGATIVE); UROBILINOGEN,URINE NORMAL (NORMAL)
[2017-01-17] MEDS ORDERED: SODIUM BICARB 8.4% 50 MEQ/50 ML (ABBOTT) SYR IV ONE (01:45)
[2017-01-17] MEDS ORDERED: FUROSEMIDE 40 MG/4 ML INJ (LASIX) IV ONE (01:45)
[2017-01-17 04:36] LABS: MEAN PLATELET VOLUME 10.5 FL (7.4-10.4); RED BLOOD COUNT 3.54 10^6/uL (4.35-5.85); RED CELL DISTRIBUTION WIDTH 14.1 % (10.0-14.5); WHITE BLOOD COUNT 9.1 10^3/uL (4.3-11.0)
[2017-01-17 05:03] LABS: ALANINE AMINOTRANSFERASE 19 U/L (0-55); ALBUMIN 2.7 GM/DL (3.2-4.5); ANION GAP 14 MMOL/L (5-14); ASPARTATE AMINO TRANSFERASE 24 U/L (5-34); BILIRUBIN,TOTAL 0.5 MG/DL (0.1-1.0); BLOOD UREA NITROGEN 13 MG/DL (7-18); BUN/CREATININE RATIO 18; CALCIUM 6.8 MG/DL (8.5-10.1); CARBON DIOXIDE 21 MMOL/L (21-32); CHLORIDE 95 MMOL/L (98-107); CREATININE SERUM 0.74 MG/DL (0.60-1.30); GFR ESTIMATED > 60; GLUCOSE 198 MG/DL (70-105); MAGNESIUM 2.2 MG/DL (1.8-2.4); PHOSPHORUS 1.3 MG/DL (2.3-4.7); POTASSIUM 3.6 MMOL/L (3.6-5.0); SODIUM 130 MMOL/L (135-145); TOTAL PROTEIN 6.1 GM/DL (6.4-8.2)
[2017-01-17] MEDS: KCL 20 MEQ TAB (K-DUR) PO SCH (05:15)
[2017-01-17] MEDS: PIPERACILLIN/TAZOBACTAM 4.5 GM/NS 100 ML IVPB IV SCH ×6 (05:51→21:52)
[2017-01-17] MEDS: fentaNYL PCA 300 MCG/30 ML VIAL IV PRN ×2 (06:45→20:46)
[2017-01-17] MEDS: SODIUM BICARBONATE 8.4% VIAL 75 MEQ in 1/2 NS IV SOLUTION 1,000 ML IV SCH (07:45)
[2017-01-17] MEDS: FAMOTIDINE 20MG/2ML IV (PEPCID) IV SCH ×2 (08:30→20:31)
[2017-01-17] MEDS: ENOXAPARIN 40 MG/0.4 ML (LOVENOX) SYR SC SCH (08:30)
[2017-01-17] MEDS: CALCIUM CARBONATE 500 MG (TUMS) TAB.CHEW PO SCH ×3 (08:30→20:31)
[2017-01-17] MEDS: SENNA W/DOCUSATE (SENOKOT S) TABLET PO SCH (08:30)
--- NOTE | 2017-01-17 08:52 | Diagnostic Imaging Report ---
INDICATION: Dyspnea. Comparison with 01/14/2017. FINDINGS: There has been development of bilateral basilar atelectasis. There does appear to be a small left basilar pleural effusion as well now. The heart is not enlarged. The upper lungs are clear. There is no evidence of pulmonary edema. Right PICC line is present tip overlying the superior vena caval shadow at the cavoatrial junction. IMPRESSION: 1. Satisfactory PICC line position. 2. Development of bilateral basilar atelectasis with probable small left basilar effusion. Dictated by: Dictated on workstation # [id number]
--- NOTE | 2017-01-17 11:47 | Progress Note-Hospitalist ---
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 She was transferred up to the ICU I conferred with Dr. Kay for consultation for pancreatitis and Dr. Cunha for respiratory failure and eICU. Patient required BiPAP initiation along with Lasix of 40 mg IV resulted in 2200 mL of urinary output with improved status but still requiring BiPAP periodically. Pancreatitis was reported to have been caused by Trulicity. Patient appears to be much improved with bicarbonate of 21 but will obtain echocardiogram and consult with cardiology in case pulmonary edema is from systolic dysfunction. She reports she is treated for high blood pressure never had any heart problems and she is a nonsmoker. Potassium and phosphorus are both low so we'll have pharmacy dose and supplement No fever, vital signs stable but blood pressure mildly elevated, chronically ill , pleasant, oriented 3, BiPAP on when I walked in the room Tachycardic at 92 bpm, diminished breath sounds all reynaga Noted trace edema lower extremities Laboratory Tests 01/16/17 22:05 01/17/17 04:29 Assessment: Acute respiratory failure requiring ICU transfer last night and BiPAP initiated with still periodic use today Volume overload responding to Lasix IV but consulting cardiology in obtaining echocardiogram to check systolic function Previous metabolic acidosis now resolved so HLIVF Diabetes mellitus Hyperlipidemia Hyponatremia Anemia of acute illness Hypothyroidism Anxiety and depression Hypokalemia Hypophosphatemia Plan: Maintain in ICU ECHO Cardiology consultation Monitor labs Replace potassium and phosphorus Monitor closely Lasix IV Insulin to manage sugars Consult Dr Kay for pancreatitis in case necrotizing status should occur Check lipase today GEORGE FOSTER DO Jan 17, 2017 11:47
--- NOTE | 2017-01-17 12:25 | Consultation-Cardiology ---
HPI-Cardiology Cardiology Consultation: Date of Consultation 01/17/17 Date of Admission Attending Physician Tavia Dunham MD Admitting Physician Tavia Dunham MD Consulting Physician Cecil JOINER MD HPI: Time Seen by Provider: 14:59 Chief Complaint: Shortness of breath, abdominal pain This is a 51-year-old lady who has history of diabetes, passive smoking, hypertension. She presents with abdominal pain and shortness of breath. She has been diagnosed with drug-induced pancreatitis. She's feeling well much better with improved abdominal pain. Her shortness of breath is also improved. She denies any chest pain. She also denies any other cardiac symptoms especially syncope, near-syncope, palpitations. She denies any orthopnea or PND. She denies any weight gain. Review of Systems-Cardiology Review of Systems Constitutional: No As described under HPI, No no symptoms reported, No chills, No fever, No lightheadedness, No malaise, No tiredness, No weight loss, No weight gain, No other Eyes: No As described under HPI, No no symptoms reported, No blindness, No blurred vision, No contact lenses, No drainage, No decreased acuity, No foreign body sensation, No glasses, No inflammation, No pain, No photophobia, No previous injury, No shadows, No tunnel vision, No other, No vision change Ears/Nose/Throat: No As described under HPI, No no symptoms reported, No chronic hearing loss, No epistaxis, No ear discharge, No ear pain, No loose teeth, No mouth pain, No mouth swelling, No nasal drainage, No nose pain, No recent hearing loss, No throat pain, No throat swelling, No ulcerations, No other Respiratory: shortness of breath Cardiovascular: No no symptoms reported, No As described under HPI, No chest pain, No edema, No irregular heart rate, No lightheadedness, No palpitations, No syncope, No other Gastrointestinal: abdominal pain Genitourinary: No no symptoms reported, No As described under HPI, No burning, No dysuria, No discharge, No frequency, No flank pain, No hematuria, No incontinence, No pain, No urgency, No other, No urine frequency changes, No urine coloration changes Musculoskeletal: No no symptoms reported, No As describe under HPI, No back pain, No gout, No joint pain, No joint swelling, No muscle pain, No muscle stiffness, No neck pain, No other Skin: No no symptoms reported, No As described under HPI, No change in color, No change in hair/nails, No dryness, No lesions, No lumps, No rash, No other, No skin related problems, No ulcerations, No rash on exposed areas, No ulcerations on exposed areas Psychiatric/Neurological: No no symptoms reported, No As described under HPI, No anxiety, No depression, No emotional problems, No headache, No numbness, No pre-existing deficit, No seizure, No tingling, No tremors, No weakness, No other , No focal weakness, No syncope Hematologic: No no symptoms reported, No As described under HPI, No anemia, No blood clots, No easy bleeding, No easy bruising, No swollen glands, No other, No bleeding abnormalities All Other Systems Reviewed Negative Unless Noted: Yes GBL-Fguoby-Gngfza Hx Patient Social History Living Status: [place] LIVES IN [place] Employed/Student: employed Alcohol Use: Denies Use Recreational Drug Use: No Smoking Status: Never a Smoker 2nd Hand Smoke Exposure: No Recent Foreign Travel: No Recent Infectious Disease Expo: No Hospitalization with Isolation: Denies Physical Abuse Screen: No Sexual Abuse: No Past Medical History PMH As described under Assessment. Family Medical History Family History: Arthritis Asthma Cardiovascular disease Diabetes mellitus Hypertension Myocardial infarction Osteoporosis Psychosocial problem Respiratory disorder Allergies and Home Medications Allergies Coded Allergies: codeine (Unverified Allergy, Mild, 06/16/08) Home Medications Dulaglutide 0.75 Mg/0.5 Ml Pen.injctr, 0.75 MG INJ Tu, (Reported) Enalapril Maleate 5 Mg Tablet, 5 MG PO DAILY, (Reported) Estradiol 2 Mg Tablet, 2 MG PO HS, (Reported) Fenofibrate Nanocrystallized 145 Mg Tablet, 145 MG PO HS, (Reported) LAST FILLED #30 10-08-16 Fluconazole 200 Mg Tablet, 200 MG PO MoTh, (Reported) Glimepiride 4 Mg Tablet, 4 MG PO DAILY, (Reported) Hydrochlorothiazide 25 Mg Tablet, 25 MG PO DAILY, (Reported) Levothyroxine Sodium 125 Mcg Tablet, 125 MCG PO DAILY, (Reported) Medroxyprogesterone Acetate 2.5 Mg Tablet, 2.5 MG PO DAILY, (Reported) Meloxicam 15 Mg Tablet, 15 MG PO DAILY, (Reported) Metformin HCl 1,000 Mg Tablet, 1,000 MG PO BID, (Reported) Pravastatin Sodium 10 Mg Tablet, 10 MG PO HS, (Reported) Venlafaxine HCl 150 Mg Cap.er.24h, 150 MG PO 1900, (Reported) Physical Exam-Cardiology Physical Exam Vital Signs/I&O Vital Sign - Last 12Hours 01/17/17 01/17/17 01/17/17 01/17/17 03:00 04:00 04:00 04:10 Temp 98.9 Pulse 87 89 98 Resp 23 13 28 B/P (MAP) 125/79 129/70 Pulse Ox 94 96 97 99 O2 Delivery NIV Bilevel NIV Bilevel NIV Bilevel O2 Flow Rate 40.00 40.00 40.00 FiO2 40 01/17/17 01/17/17 01/17/17 01/17/17 04:12 05:00 06:00 06:00 Pulse 104 92 101 Resp 25 16 18 14 B/P (MAP) 144/76 141/66 Pulse Ox 97 95 93 O2 Delivery NIV Bilevel NIV Bilevel NIV Bilevel O2 Flow Rate 35.00 35.00 35.00 01/17/17 01/17/17 01/17/17 01/17/17 06:15 07:00 08:09 08:09 Temp 96.7 Pulse 93 92 Resp 26 B/P (MAP) 153/85 Pulse Ox 93 96 O2 Delivery Nasal Cannula Nasal Cannula Nasal Cannula O2 Flow Rate 3.00 4.00 4.00 01/17/17 01/17/17 01/17/17 01/17/17 09:30 10:10 11:37 12:35 Temp 97.8 Pulse 94 Resp 35 Pulse Ox 94 O2 Delivery Nasal Cannula Nasal Cannula Nasal Cannula O2 Flow Rate 4.00 35.00 4.00 4.00 01/17/17 01/17/17 13:00 13:42 Pulse 93 Pulse Ox 92 O2 Delivery Nasal Cannula O2 Flow Rate 3.00 Capillary Refill : Less Than 3 Seconds Constitutional: No appears stated age, No AAO x 3, No apparent distress, No PERRL, No well-developed, No well-nourished, No other HEENT: No PERRL, No normal ENT inspection, No TMs normal, No pharynx normal, No scleral icterus (R), No scleral icterus (L), No pale conjunctivae (R), No pale conjunctivae (L), No photophobia, No TM abnormal (R), No TM abnormal (L), No pharyngeal erythema, No tonsillar exudate, No other, No discharge, No EOMI, No hearing is well preserved, No hard of hearing, No oral hygience is good, No ulceration, No xanthelasmas are seen Neck: No non-tender, No full range of motion, No supple, No normal inspection, No carotid bruit, No limited range of motion, No lymphadenopathy (R), No lymphadenopathy (L), No tender lateral, No tender midline, No thyromegaly, No other, No carotid pulses are 2 + bilaterally, No with good upstrokes Respiratory: No accessory muscle use, No respiratory distress, No chest tender , No chest expansion is symmetric, No chest is bilaterally symmetric, No lungs clear to percussion, No lungs clear to auscultation, No crackles, No rhonchi, No rales, No stridor, No wheezing, No pleural rub, No other Cardiovascular: No regular rate-rhythm, No irregularly irregular, No extra beats, No parasternal heave is noted, No JVD, No edema, No bradycardia, No tachycardia, No point of maximal impulse, No cardiac thrills are palpable, No S1 and S2, No gallop/S3, No gallop/S4, No diastolic murmur, No systolic murmur, No friction rub, No click, No other Gastrointestinal: No tender, No soft, No round, No distended, No pulsatile mass , No organomegaly, No guarding, No rebound, No tenderness, No hernia, No mass, No audible bowel sounds, No abnormal bowel sounds, No abdominal bruits, No spleenomegaly, No other Rectal: deferred Extremities: No normal range of motion, No non-tender, No normal inspection, No pedal edema, No calf tenderness, No normal capillary refill, No pelvis stable , No calf tenderness, No inflammation, No pedal edema, No slow capillary refill , No swelling, No other, No abrasion, No clubbing, No cyanosis, No ecchymosis, No laceration, No no lower extremity edema bilateral, No significant edema, No tenderness, No wound Neurologic/Psychiatric: No desktop manager II-XII nml as tested, No no motor/sensory deficits, No alert, No normal mood/affect, No oriented x 3, No abnormal cerebellar tests, No abnormal desktop manager II-XII, No abnormal gait, No aphasia, No EOM palsy, No facial droop, No motor weakness, No sensory deficit, No depressed affect, No disoriented x 3, No other, No grossly intact, No power is 5/5 both on sides Skin: No normal color, No warm/dry, No cyanosis, No cool, No diaphoresis, No damp, No ecchymosis, No jaundice, No mottled, No pallor, No rash, No tattoos/ piercings, No ulcerations, No rash on exposed areas, No ulcerations on exposed areas, No other Data Review Labs Laboratory Tests 01/16/17 15:38: Glucometer 199H 01/16/17 22:05: White Blood Count 9.4, Red Blood Count 3.54L, Hemoglobin 10.9L, Hematocrit 32L, Mean Corpuscular Volume 91, Mean Corpuscular Hemoglobin 31, Mean Corpuscular Hemoglobin Concent 34, Red Cell Distribution Width 14.1, Platelet Count 226, Mean Platelet Volume 10.5H, Neutrophils (%) (Auto) 79H, Lymphocytes (%) (Auto) 14, Monocytes (%) (Auto) 5, Eosinophils (%) (Auto) 2, Basophils (%) (Auto) 0, Neutrophils # (Auto) 7.4, Lymphocytes # (Auto) 1.3, Monocytes # (Auto) 0.5, Eosinophils # (Auto) 0.2, Basophils # (Auto) 0.0, Sodium Level 131L, Potassium Level 3.1L, Chloride Level 95L, Carbon Dioxide Level 17L, Anion Gap 19H, Blood Urea Nitrogen 16, Creatinine 0.73, Estimat Glomerular Filtration Rate > 60, BUN/ Creatinine Ratio 22, Glucose Level 195H, Hemoglobin A1c 6.6H, Lactic Acid Level 0.77, Calcium Level 5.4*L, Magnesium Level 2.0, Troponin I < 0.30, Albumin 2.7L 01/16/17 23:25: Blood Gas Puncture Site LT RADIAL, Blood Gas Patient Temperature 99.7, Arterial Blood pH 7.45H, Arterial Blood Partial Pressure CO2 37, Arterial Blood Partial Pressure O2 58L, Arterial Blood HCO3 25, Arterial Blood Total CO2 26.1, Arterial Blood Oxygen Saturation 92L, Arterial Blood Base Excess 1.5, Ignacio Test YES-POS, Blood Gas Ventilator Setting NO, Blood Gas Inspired Oxygen 2LNC 01/17/17 01:03: Urine Color YELLOW, Urine Clarity CLEAR, Urine pH 6, Urine Specific [place] 1.015L, Urine Protein 3+H, Urine Glucose (UA) 4+H, Urine Ketones 3+H, Urine Nitrite NEGATIVE, Urine Bilirubin NEGATIVE, Urine Urobilinogen NORMAL, Urine Leukocyte Esterase NEGATIVE, Urine RBC (Auto) 2+H, Urine RBC NONE, Urine WBC NONE, Urine Squamous Epithelial Cells 2-5, Urine Crystals PRESENTH, Urine Amorphous Sediment FEW BENITO URATESH, Urine Bacteria NEGATIVE, Urine Casts NONE, Urine Mucus NEGATIVE, Urine Culture Indicated NO 01/17/17 04:29: White Blood Count 9.1, Red Blood Count 3.54L, Hemoglobin 10.7L, Hematocrit 32L, Mean Corpuscular Volume 92, Mean Corpuscular Hemoglobin 30, Mean Corpuscular Hemoglobin Concent 33, Red Cell Distribution Width 14.1, Platelet Count 244, Mean Platelet Volume 10.5H, Sodium Level 130L, Potassium Level 3.6, Chloride Level 95L, Carbon Dioxide Level 21, Anion Gap 14, Blood Urea Nitrogen 13, Creatinine 0.74, Estimat Glomerular Filtration Rate > 60, BUN/Creatinine Ratio 18, Glucose Level 198H, Calcium Level 6.8L, Phosphorus Level 1.3L, Magnesium Level 2.2, Total Bilirubin 0.5, Aspartate Amino Transf (AST/SGOT) 24, Alanine Aminotransferase (ALT/SGPT) 19, Alkaline Phosphatase 46, Troponin I < 0.30, Total Protein 6.1L, Albumin 2.7L, Lipase 273H 01/17/17 11:36: Glucometer 166H 01/17/17 12:30: B-Type Natriuretic Peptide 82.4 Microbiology 01/14/17 Blood Culture - Preliminary, Resulted No growth ECG Impression ECG Comment No EKG found. A/P-Cardiology Assessment/Admission Diagnosis 1. Pancreatitis, 2. Shortness of breath, 3. Diabetes, 4. Hypertension Plan 1. Pancreatitis, deferred to primary team. 2. Shortness of breath: Normal echocardiogram. Normal BNP. Euvolemic on examination. No congestive heart failure. May require nuclear stress testing as an outpatient to rule out ischemic heart disease due to significant coronary artery disease risk factors including diabetes. 3. Diabetes, deferred to primary team. 4. Hypertension: Slightly elevated today. Thank you for your consultation. Please call me if you have any questions. Lola Joiner MD, FACP, FACC, FSCAI, FHRS, CCDS Interventional Cardiology Cardiac Electrophysiology Vascular Medicine and Endovascular Interventions Clinical Quality Measures DVT/VTE Risk/Contraindication: Risk Factor Score Per Nursin RFS Level Per Nursing on Admit: 4+=Very High Cecil JOINER MD Jan 17, 2017 12:25 pm
[2017-01-17 12:47] LABS: LIPASE 273 U/L (8-78)
[2017-01-17 12:53] LABS: TROPONIN I < 0.30 NG/ML (<0.30)
[2017-01-17] MEDS ORDERED: RT-ALBUTEROL/IPRATROPIUM 3 ML (DUONEB) VIAL ONE (13:22)
[2017-01-17] MEDS: NS IV 1000 ML 1,000 ML IV SCH (13:31)
[2017-01-17] MEDS: RT-ALBUTEROL/IPRATROPIUM 3 ML (DUONEB) VIAL INH SCH ×2 (13:40→19:05)
[2017-01-17] MEDS ORDERED: POTASSIUM PHOSPHATE IV NR (13:47)
[2017-01-17] MEDS ORDERED: NS IV NR (13:47)
[2017-01-17] MEDS ORDERED: CALCIUM CHLORIDE 1 GM/10 ML (IMS) SYR INJ NR (15:00)
--- NOTE | 2017-01-17 19:55 | Consultation ---
History of Present Illness History of Present Illness Patient Consulted On(la/time) 01/17/17 19:53 Date Seen by Provider: Jan 17, 2017 Time Seen by Provider: 14:58 Reason for Visit: Abdominal pain with the discovery of pancreatitis History of Present Illness acute onset of upper abdominal pain resulting in ER visit. CT scan and laboratory analysis indicated pancreatitis possibly of idiopathic nature. Previous cholecystectomy for gallstones. LFTs normal. Allergies and Home Medications Allergies Coded Allergies: codeine (Unverified Allergy, Mild, 06/16/08) Home Medications Dulaglutide 0.75 Mg/0.5 Ml Pen.injctr, 0.75 MG INJ Tu, (Reported) Enalapril Maleate 5 Mg Tablet, 5 MG PO DAILY, (Reported) Estradiol 2 Mg Tablet, 2 MG PO HS, (Reported) Fenofibrate Nanocrystallized 145 Mg Tablet, 145 MG PO HS, (Reported) LAST FILLED #30 10-08-16 Fluconazole 200 Mg Tablet, 200 MG PO MoTh, (Reported) Glimepiride 4 Mg Tablet, 4 MG PO DAILY, (Reported) Hydrochlorothiazide 25 Mg Tablet, 25 MG PO DAILY, (Reported) Levothyroxine Sodium 125 Mcg Tablet, 125 MCG PO DAILY, (Reported) Medroxyprogesterone Acetate 2.5 Mg Tablet, 2.5 MG PO DAILY, (Reported) Meloxicam 15 Mg Tablet, 15 MG PO DAILY, (Reported) Metformin HCl 1,000 Mg Tablet, 1,000 MG PO BID, (Reported) Pravastatin Sodium 10 Mg Tablet, 10 MG PO HS, (Reported) Venlafaxine HCl 150 Mg Cap.er.24h, 150 MG PO 1900, (Reported) Past Luxetgf-Ebdbye-Lerhfc Hx Patient Social History Alcohol Use: Denies Use Recreational Drug Use: No Smoking Status: Never a Smoker 2nd Hand Smoke Exposure: No Recent Foreign Travel: No Contact w/Someone Who Travel: No Recent Infectious Disease Expo: No Recent Hopitalizations: No Physical Abuse: No Sexual Abuse: No Mistreated: No Fear: No Seasonal Allergies Seasonal Allergies: No Surgeries History of Surgeries: Yes (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) Surgeries: Gallbladder Respiratory History of Respiratory Disorde: No Cardiovascular History of Cardiac Disorders: Yes Cardiac Disorders: High Cholesterol, Hypertension Neurological History of Neurological Disord: Yes (HYDROCEPHALUS, WITH POOR BALANCE AND URINARY INCONTINENCE) Neurological Disorders: Headaches /Migraines Gastrointestinal History of Gastrointestinal Di: No Musculoskeletal History of Musculoskeletal Dis: Yes Musculoskeletal Disorders: Arthritis, Chronic Back Pain Endocrine History of Endocrine Disorders: Yes Endocrine Disorders: Hypothyroidsim, Diabetes, Non-Insulin dep Cancer History of Cancer: No Psychosocial History of Psychiatric Problem: Yes Behavioral Health Disorders: Depression Suicide Risk Score: 0 Integumentary History of Skin or Integumenta: No Blood Transfusions History of Blood Disorders: No Reviewed Nursing Assessment Reviewed/Agree w Nursing PMH: Yes Family Medical History Significant Family History: Hypertension Family Medial History: Arthritis Asthma Cardiovascular disease Diabetes mellitus Hypertension Myocardial infarction Osteoporosis Psychosocial problem Respiratory disorder Review of Systems-General Constitutional: malaise EENTM: no symptoms reported Respiratory: dyspnea on exertion Cardiovascular: no symptoms reported Gastrointestinal: see HPI Genitourinary: no symptoms reported Musculoskeletal: joint pain Skin: no symptoms reported Psychiatric/Neurological: No Symptoms Reported Physical Exam-General Problems Physical Exam Vital Signs Vital Sign - Last 12Hours 01/14/17 01/16/17 01/17/17 04:55 10:00 04:00 Temp 94.4 Pulse 73 Resp 18 B/P (MAP) 153/93 Pulse Ox 97 O2 Delivery Room Air O2 Flow Rate 2.00 FiO2 40 Capillary Refill : Less Than 3 Seconds General Appearance: no apparent distress HEENT: normal ENT inspection Respiratory: decreased breath sounds Cardiovascular: regular rate, rhythm Gastrointestinal: tenderness Neurologic/Psychiatric: alert Skin: warm/dry Comments minimal tenderness over the epigastric region. Assessment/Plan Assessment/Plan Admission Diagnosis/Plan lady with idiopathic and otitis. Amylase and lipase trending down. We'll continue to observe. Hypocalcemia possibly secondary to pancreatitis, being replaced. Clinical Quality Measures DVT/VTE Risk/Contraindication: Risk Factor Score Per Nursin RFS Level Per Nursing on Admit: 4+=Very High JEOVANY LONG MD Jan 17, 2017 7:55 pm
[2017-01-18] VITALS (18 sets, daily range): BP systolic 132–173; BP diastolic 68–97
[2017-01-18] MEDS: RT-ALBUTEROL/IPRATROPIUM 3 ML (DUONEB) VIAL INH SCH ×4 (02:24→19:09)
[2017-01-18 05:06] LABS: BASOPHILS % (AUTO) 0 % (0-10); EOSINOPHILS # (AUTO) 0.3 10^3/uL (0.0-0.3); EOSINOPHILS % (AUTO) 4 % (0-10); LYMPHOCYTES # (AUTO) 0.9 X 10^3 (1.0-4.0); LYMPHOCYTES % (AUTO) 12 % (12-44); MEAN CORPUSCULAR HEMOGLOBIN 30 PG (25-34); MEAN CORPUSCULAR HGB CONC 32 G/DL (32-36); MEAN CORPUSCULAR VOLUME 93 FL (80-99); MEAN PLATELET VOLUME 10.2 FL (7.4-10.4); MONOCYTES # (AUTO) 0.8 X 10^3 (0.0-1.0); MONOCYTES % (AUTO) 11 % (0-12); NEUTROPHILS # (AUTO) 5.4 X 10^3 (1.8-7.8); NEUTROPHILS % (AUTO) 72 % (42-75); PLATELET COUNT 202 10^3/uL (130-400); RED BLOOD COUNT 3.22 10^6/uL (4.35-5.85); WHITE BLOOD COUNT 7.5 10^3/uL (4.3-11.0)
[2017-01-18 05:27] LABS: AMYLASE 58 U/L (25-125); ANION GAP 13 MMOL/L (5-14); BLOOD UREA NITROGEN 8 MG/DL (7-18); BUN/CREATININE RATIO 13; CALCIUM 7.2 MG/DL (8.5-10.1); CARBON DIOXIDE 22 MMOL/L (21-32); CHLORIDE 101 MMOL/L (98-107); CREATININE SERUM 0.63 MG/DL (0.60-1.30); GFR ESTIMATED > 60; GLUCOSE 175 MG/DL (70-105); LIPASE 206 U/L (8-78); MAGNESIUM 1.9 MG/DL (1.8-2.4); PHOSPHORUS 1.7 MG/DL (2.3-4.7); POTASSIUM 3.4 MMOL/L (3.6-5.0); SODIUM 136 MMOL/L (135-145)
[2017-01-18] MEDS: MAGNESIUM 1 GM/100 ML IVPB 100 ML IV SCH (06:22)
[2017-01-18] MEDS: KCL 20 MEQ TAB (K-DUR) PO SCH (06:22)
[2017-01-18] MEDS: POTASSIUM CL 10MEQ/50ML IVPB 50 ML IV SCH (06:22)
[2017-01-18] MEDS: PIPERACILLIN/TAZOBACTAM 4.5 GM/NS 100 ML IVPB IV SCH ×6 (06:39→21:17)
[2017-01-18] MEDS: inSUlin (REGULAR) HUMAN 1 UNIT/0.01 ML (CHARGE PER UNIT) SC SCH (06:39)
[2017-01-18] MEDS: fentaNYL PCA 300 MCG/30 ML VIAL IV PRN ×2 (06:41→17:47)
[2017-01-18] MEDS: FAMOTIDINE 20MG/2ML IV (PEPCID) IV SCH ×2 (09:09→20:04)
[2017-01-18] MEDS: FUROSEMIDE 40 MG/4 ML INJ (LASIX) IVP SCH (09:09)
[2017-01-18] MEDS: ENOXAPARIN 40 MG/0.4 ML (LOVENOX) SYR SC SCH (09:10)
[2017-01-18] MEDS: SENNA W/DOCUSATE (SENOKOT S) TABLET PO SCH (09:10)
[2017-01-18] MEDS: CALCIUM CARBONATE 500 MG (TUMS) TAB.CHEW PO SCH ×3 (09:10→20:04)
--- NOTE | 2017-01-18 09:49 | Diagnostic Imaging Report ---
INDICATION: Dyspnea. COMPARISON: 01/17/2017 FINDINGS: Upright portable view of the chest is obtained. Lung volume is low. Right PICC line is stable. There is increasing bilateral basilar atelectasis with probable small effusions. There is no evidence of pneumothorax. IMPRESSION: Allowing for low lung volumes, there is increasing bilateral basilar airspace disease/atelectasis and worsening bilateral pleural effusions. Dictated by: Dictated on workstation # [id number]
--- NOTE | 2017-01-18 11:39 | Cardiology Progress Note ---
Cardiology SOAP Progress Note Subjective: Improved shortness of breath. Still complains of mild abdominal discomfort. Objective: I&O/Vital Signs Vital Sign - Last 12Hours 01/18/17 01/18/17 01/18/17 01/18/17 00:00 00:00 00:05 01:00 Temp 99.1 Pulse 98 101 93 Resp 30 33 14 B/P (MAP) 160/69 154/71 Pulse Ox 95 96 97 95 O2 Delivery NIV Bilevel NIV Bilevel NIV Bilevel O2 Flow Rate 35.00 35.00 35.00 FiO2 40 01/18/17 01/18/17 01/18/17 01/18/17 01:00 02:00 02:24 02:30 Pulse 93 92 104 108 Resp 18 35 22 B/P (MAP) 153/83 Pulse Ox 93 94 89 O2 Delivery NIV Bilevel High Flow N/C O2 Flow Rate 35.00 35.00 7.00 01/18/17 01/18/17 01/18/17 01/18/17 03:00 04:00 04:00 04:15 Temp 99.2 Pulse 112 103 Resp 38 26 B/P (MAP) 163/97 161/76 Pulse Ox 93 95 O2 Delivery Nasal Cannula Nasal Cannula Nasal Cannula Nasal Cannula O2 Flow Rate 7.00 7.00 5.00 5.00 01/18/17 01/18/17 01/18/17 01/18/17 05:00 06:00 06:30 06:46 Pulse 98 90 Resp 20 19 16 B/P (MAP) 157/73 152/81 Pulse Ox 98 95 97 O2 Delivery Nasal Cannula Nasal Cannula O2 Flow Rate 5.00 5.00 5.00 01/18/17 01/18/17 01/18/17 01/18/17 07:00 07:00 08:00 08:00 Pulse 92 92 90 Resp 15 14 B/P (MAP) 155/77 145/75 Pulse Ox 97 93 O2 Delivery Nasal Cannula Nasal Cannula Nasal Cannula O2 Flow Rate 5.00 5.00 5.00 01/18/17 01/18/17 01/18/17 01/18/17 08:58 09:00 09:00 10:00 Temp 98.5 Pulse 103 111 Resp 21 34 B/P (MAP) 160/75 169/73 Pulse Ox 98 93 95 O2 Delivery Nasal Cannula Nasal Cannula Nasal Cannula O2 Flow Rate 5.00 5.00 5.00 Weight (Pounds): 238 Weight (Ounces): 9.0 Weight (Calculated Kilograms): [id number] Constitutional: No appears stated age, No AAO x 3, No apparent distress, No PERRL, No well-developed, No well-nourished, No other Respiratory: No accessory muscle use, No respiratory distress, No chest tender , No chest expansion is symmetric, No chest is bilaterally symmetric, No lungs clear to percussion, No lungs clear to auscultation, No crackles, No rhonchi, No rales, No stridor, No wheezing, No pleural rub, No other Cardiovascular: No regular rate-rhythm, No irregularly irregular, No extra beats, No parasternal heave is noted, No JVD, No edema, No bradycardia, No tachycardia, No point of maximal impulse, No cardiac thrills are palpable, No S1 and S2, No gallop/S3, No gallop/S4, No diastolic murmur, No systolic murmur, No friction rub, No click, No other Gastrointestional: No tender, No soft, No round, No distended, No pulsatile mass, No organomegaly, No guarding, No rebound, No tenderness, No hernia, No mass, No audible bowel sounds, No abnormal bowel sounds, No abdominal bruits, No spleenomegaly, No other Extremities: No normal range of motion, No non-tender, No normal inspection, No pedal edema, No calf tenderness, No normal capillary refill, No pelvis stable , No calf tenderness, No inflammation, No pedal edema, No slow capillary refill , No swelling, No other, No abrasion, No clubbing, No cyanosis, No ecchymosis, No laceration, No no lower extremity edema bilateral, No significant edema, No tenderness, No wound Neurologic/Psychiatric: No sand miller II-XII nml as tested, No no motor/sensory deficits, No alert, No normal mood/affect, No oriented x 3, No abnormal cerebellar tests, No abnormal sand miller II-XII, No abnormal gait, No aphasia, No EOM palsy, No facial droop, No motor weakness, No sensory deficit, No depressed affect, No disoriented x 3, No other, No grossly intact, No power is 5/5 both on sides Skin: No normal color, No warm/dry, No cyanosis, No cool, No diaphoresis, No damp, No ecchymosis, No jaundice, No mottled, No pallor, No rash, No tattoos/ piercings, No ulcerations, No rash on exposed areas, No ulcerations on exposed areas, No other Results/Procedures: Labs Laboratory Tests 01/17/17 12:30: B-Type Natriuretic Peptide 82.4 01/17/17 17:03: Glucometer 151H 01/17/17 20:37: Glucometer 181H 01/18/17 04:57: White Blood Count 7.5, Red Blood Count 3.22L, Hemoglobin 9.6L, Hematocrit 30L, Mean Corpuscular Volume 93, Mean Corpuscular Hemoglobin 30, Mean Corpuscular Hemoglobin Concent 32, Red Cell Distribution Width 14.0, Platelet Count 202, Mean Platelet Volume 10.2, Neutrophils (%) (Auto) 72, Lymphocytes (%) (Auto) 12 , Monocytes (%) (Auto) 11, Eosinophils (%) (Auto) 4, Basophils (%) (Auto) 0, Neutrophils # (Auto) 5.4, Lymphocytes # (Auto) 0.9L, Monocytes # (Auto) 0.8, Eosinophils # (Auto) 0.3, Basophils # (Auto) 0.0, Sodium Level 136, Potassium Level 3.4L, Chloride Level 101, Carbon Dioxide Level 22, Anion Gap 13, Blood Urea Nitrogen 8, Creatinine 0.63, Estimat Glomerular Filtration Rate > 60, BUN/ Creatinine Ratio 13, Glucose Level 175H, Calcium Level 7.2L, Phosphorus Level 1.7L, Magnesium Level 1.9, Amylase Level 58, Lipase 206H Microbiology 01/14/17 Blood Culture - Preliminary, Resulted No growth A/P: Assessment/Dx: 1. Pancreatitis, 2. Shortness of breath, 3. Diabetes, 4. Hypertension Plan: 1. Pancreatitis, deferred to primary team. 2. Shortness of breath: Normal echocardiogram. Normal BNP. Euvolemic on examination. No congestive heart failure. May require nuclear stress testing as an outpatient to rule out ischemic heart disease due to significant coronary artery disease risk factors including diabetes. 3. Diabetes, deferred to primary team. 4. Hypertension: Slightly elevated today. Thank you for your consultation. Please call me if you have any questions. Lola Joiner MD, FACP, FACC, FSCAI, FHRS, CCDS Interventional Cardiology Cardiac Electrophysiology Vascular Medicine and Endovascular Interventions Cecil JOINER MD Jan 18, 2017 11:38 am
[2017-01-18] MEDS ORDERED: NS IV NR (12:00)
[2017-01-18] MEDS ORDERED: POTASSIUM PHOSPHATE IV NR (12:00)
--- NOTE | 2017-01-18 13:20 | Progress Note (SOAP) ---
Subjective Date Seen by Provider: Jan 18, 2017 Time Seen by Provider: 12:35 Subjective/Events-last exam continues to improve and reports minimal epigastric pain. Passing flatus. Review of Systems General: No Chills, No Night Sweats, No Fatigue, No Malaise HEENT: No Head Aches, No Eye Pain, No Ear Pain, No Dysphasia, No Sinus Congestion, No Post Nasal Drip, No Sore Throat Pulmonary: No Dyspnea, No Cough, No Pleuritic Chest Pain Cardiovascular: No: Chest Pain, Palpitations, Orthopnea, Paroxysmal Noc. Dyspnea, Edema, Lt Headedness Gastrointestinal: Abdominal Pain Genitourinary: No Dysuria, No Frequency, No Incontinence, No Hematuria, No Retention Musculoskeletal: No: other, neck pain, shoulder pain, arm pain, back pain, hand pain, leg pain, foot pain Neurological: No: Weakness, Numbness, Incoordination, Change in speech, Confusion, Seizures, Other Objective Exam Vital Signs Date Time Temp Pulse Resp B/P (MAP) Pulse Ox O2 Delivery O2 Flow Rate FiO2 01/18/17 12:00 Nasal Cannula 5.00 01/18/17 12:00 96 27 147/74 93 Nasal Cannula 5.00 01/18/17 11:00 109 41 132/72 94 Nasal Cannula 5.00 01/18/17 10:00 111 34 169/73 95 Nasal Cannula 5.00 01/18/17 09:00 103 21 160/75 93 Nasal Cannula 5.00 01/18/17 09:00 98.5 01/18/17 08:58 98 Nasal Cannula 5.00 01/18/17 08:00 Nasal Cannula 5.00 01/18/17 08:00 90 14 145/75 93 Nasal Cannula 5.00 01/18/17 07:00 92 01/18/17 07:00 92 15 155/77 97 Nasal Cannula 5.00 01/18/17 06:46 97 5.00 01/18/17 06:30 16 01/18/17 06:00 90 19 152/81 95 Nasal Cannula 5.00 01/18/17 05:00 98 20 157/73 98 Nasal Cannula 5.00 01/18/17 04:15 99.2 Nasal Cannula 5.00 01/18/17 04:00 Nasal Cannula 5.00 01/18/17 04:00 103 26 161/76 95 Nasal Cannula 7.00 01/18/17 03:00 112 38 163/97 93 Nasal Cannula 7.00 01/18/17 02:30 108 22 89 High Flow N/C 7.00 01/18/17 02:24 104 35 94 35.00 01/18/17 02:00 92 18 153/83 93 NIV Bilevel 35.00 01/18/17 01:00 93 01/18/17 01:00 93 14 154/71 95 NIV Bilevel 35.00 01/18/17 00:05 101 33 97 35.00 01/18/17 00:00 96 NIV Bilevel 40 01/18/17 00:00 99.1 98 30 160/69 95 NIV Bilevel 35.00 01/17/17 23:00 104 31 156/74 93 Nasal Cannula 4.00 01/17/17 22:00 94 38 151/70 94 Nasal Cannula 4.00 01/17/17 21:00 96 29 154/80 97 Nasal Cannula 4.00 01/17/17 20:00 96 Nasal Cannula 4.00 01/17/17 20:00 98.1 101 38 167/80 96 Nasal Cannula 4.00 01/17/17 19:05 95 Nasal Cannula 4.50 01/17/17 19:00 100 01/17/17 19:00 100 22 165/84 90 Nasal Cannula 4.00 01/17/17 18:24 28 01/17/17 18:00 101 28 166/93 98 Nasal Cannula 4.00 01/17/17 17:00 89 28 164/85 93 Nasal Cannula 4.00 01/17/17 16:00 87 18 171/79 94 Nasal Cannula 4.00 01/17/17 16:00 Nasal Cannula 4.00 01/17/17 16:00 99.3 01/17/17 15:50 93 36 01/17/17 15:00 94 32 95 Nasal Cannula 4.00 01/17/17 14:00 103 25 147/80 91 Nasal Cannula 4.00 01/17/17 13:42 92 Nasal Cannula 3.00 I & O 01/19/17 07:00 Intake Total 340 ml Output Total 2825 ml Balance -2485 ml Capillary Refill : Less Than 3 Seconds General Appearance: No Apparent Distress HEENT: Normal ENT Inspection Neck: Normal Inspection Respiratory: Lungs Clear Cardiovascular: Tachycardia Gastrointestinal: soft, tenderness Extremity: Normal Inspection Neurologic/Psychiatric: Alert, Oriented x3 Skin: Warm/Dry Results Lab Laboratory Tests 01/17/17 17:03: Glucometer 151H 01/17/17 20:37: Glucometer 181H 01/18/17 04:57: White Blood Count 7.5, Red Blood Count 3.22L, Hemoglobin 9.6L, Hematocrit 30L, Mean Corpuscular Volume 93, Mean Corpuscular Hemoglobin 30, Mean Corpuscular Hemoglobin Concent 32, Red Cell Distribution Width 14.0, Platelet Count 202, Mean Platelet Volume 10.2, Neutrophils (%) (Auto) 72, Lymphocytes (%) (Auto) 12 , Monocytes (%) (Auto) 11, Eosinophils (%) (Auto) 4, Basophils (%) (Auto) 0, Neutrophils # (Auto) 5.4, Lymphocytes # (Auto) 0.9L, Monocytes # (Auto) 0.8, Eosinophils # (Auto) 0.3, Basophils # (Auto) 0.0, Sodium Level 136, Potassium Level 3.4L, Chloride Level 101, Carbon Dioxide Level 22, Anion Gap 13, Blood Urea Nitrogen 8, Creatinine 0.63, Estimat Glomerular Filtration Rate > 60, BUN/ Creatinine Ratio 13, Glucose Level 175H, Calcium Level 7.2L, Phosphorus Level 1.7L, Magnesium Level 1.9, Amylase Level 58, Lipase 206H 01/18/17 12:36: Glucometer 168H Microbiology 01/14/17 Blood Culture - Preliminary, Resulted No growth Assessment/Plan Assessment/Plan Assess & Plan/Chief Complaint lady with idiopathic and otitis. Amylase and lipase trending down. We'll continue to observe. Hypocalcemia possibly secondary to pancreatitis, being replaced. lady with resolving pancreatitis. Potassium phosphorus low, being replaced. Lipase declining Final Diagnosis acute, idiopathic pancreatitis Clinical Quality Measures DVT/VTE Risk/Contraindication: Risk Factor Score Per Nursin RFS Level Per Nursing on Admit: 4+=Very High JEOVANY LONG MD Jan 18, 2017 1:20 pm
--- NOTE | 2017-01-18 13:25 | Progress Note-Hospitalist ---
Progress Note Progress Notes/Assess & Plan Date Seen 01/18/17 Time Seen by Provider: 11:15 Diagonsis/Assessment & Plan Pt doing well Transferring to the floor Lipase near normal TV doing well IV Lasix helping ECHO nl and Cardiology has no concerns Checked meds and labs No fever, vital signs stable, chronically ill, pleasant, oriented 3, O2 on Tachycardic at 92 bpm, dCTAB improved Noted trace edema lower extremities Laboratory Tests 01/18/17 04:57 Assessment: Acute respiratory failure requiring ICU transfer Thursday night and BiPAP initiated but now on NC Volume overload responding to Lasix IV but consulted cardiology and nl echocardiogram and stable status Previous metabolic acidosis now resolved Diabetes mellitus Hyperlipidemia Hyponatremia Anemia of acute illness Hypothyroidism Anxiety and depression Hypokalemia Hypophosphatemia Plan: Tx to floor ECHO reviewed Cardiology consultation appreciated Monitor labs Replace potassium and phosphorus Monitor closely Lasix IV Insulin to manage sugars Consult Dr Kay for pancreatitis in case necrotizing status should occur Check lipase tomorrow GEORGE FOSTER DO Jan 18, 2017 13:25
[2017-01-18 16:05] LABS: CALCIUM PH 7.39
[2017-01-18 16:08] LABS: CALCIUM IONIZED 0.63 mmol/L (1.16-1.32); CORRECTED IONIZED CALCIUM 0.63 mmol/L (1.16-1.32)
[2017-01-18] MEDS: NS IV 1000 ML 1,000 ML IV SCH (17:38)
[2017-01-18] MEDS: inSUlin ASPART (NovoLOG) 1 UNIT/0.01 ML (CHARGE PER UNIT) SC SCH ×2 (17:38→21:17)
[2017-01-18] MEDS: ACETAMINOPHEN 325 MG TABLET/CAPLET (TYLENOL) PO PRN (21:20)
[2017-01-19 00:39] VITALS: BP 164/72
[2017-01-19] MEDS: RT-ALBUTEROL/IPRATROPIUM 3 ML (DUONEB) VIAL INH SCH ×4 (02:28→22:36)
[2017-01-19 04:30] VITALS: BP 171/78
[2017-01-19] MEDS: inSUlin ASPART (NovoLOG) 1 UNIT/0.01 ML (CHARGE PER UNIT) SC SCH ×4 (05:40→21:06)
[2017-01-19] MEDS: PIPERACILLIN/TAZOBACTAM 4.5 GM/NS 100 ML IVPB IV SCH ×6 (06:10→21:07)
[2017-01-19] MEDS: VENlafaxine XR 75 MG (EFFEXOR XR) CAP PO SCH (06:10)
[2017-01-19 06:22] LABS: BASOPHILS % (AUTO) 0 % (0-10); EOSINOPHILS # (AUTO) 0.4 10^3/uL (0.0-0.3); EOSINOPHILS % (AUTO) 5 % (0-10); LYMPHOCYTES # (AUTO) 0.9 X 10^3 (1.0-4.0); LYMPHOCYTES % (AUTO) 12 % (12-44); MEAN CORPUSCULAR HEMOGLOBIN 30 PG (25-34); MEAN CORPUSCULAR HGB CONC 32 G/DL (32-36); MEAN CORPUSCULAR VOLUME 94 FL (80-99); MEAN PLATELET VOLUME 10.3 FL (7.4-10.4); MONOCYTES # (AUTO) 1.3 X 10^3 (0.0-1.0); MONOCYTES % (AUTO) 17 % (0-12); NEUTROPHILS # (AUTO) 5.2 X 10^3 (1.8-7.8); NEUTROPHILS % (AUTO) 66 % (42-75); PLATELET COUNT 213 10^3/uL (130-400); RED BLOOD COUNT 3.08 10^6/uL (4.35-5.85); WHITE BLOOD COUNT 7.9 10^3/uL (4.3-11.0)
[2017-01-19 06:38] LABS: ALANINE AMINOTRANSFERASE 20 U/L (0-55); ALBUMIN 2.7 GM/DL (3.2-4.5); ANION GAP 12 MMOL/L (5-14); ASPARTATE AMINO TRANSFERASE 18 U/L (5-34); BILIRUBIN,TOTAL 0.4 MG/DL (0.1-1.0); BLOOD UREA NITROGEN 7 MG/DL (7-18); BUN/CREATININE RATIO 11; CALCIUM 8.3 MG/DL (8.5-10.1); CARBON DIOXIDE 23 MMOL/L (21-32); CHLORIDE 100 MMOL/L (98-107); CREATININE SERUM 0.66 MG/DL (0.60-1.30); GFR ESTIMATED > 60; GLUCOSE 195 MG/DL (70-105); LIPASE 166 U/L (8-78); POTASSIUM 3.5 MMOL/L (3.6-5.0); SODIUM 135 MMOL/L (135-145); TOTAL PROTEIN 5.8 GM/DL (6.4-8.2)
--- NOTE | 2017-01-19 06:45 | Pulmonary Consultation ---
History of Present Illness History of Present Illness Date of Consultation 01/19/17 06:40 Time Seen by Provider: 06:40 Date of Admission Reason for Visit: Abdominal pain with the discovery of pancreatitis History of Present Illness 51yo presented secondary to worsening abdominal pain and SOB. Pt has a hx of pancreatitis. Pt was dx with acute pancreatitis upon admission. She is getting IVF and surgery is following. Shortness of breath, abdominal pain This is a 51-year-old lady who has history of diabetes, passive smoking, hypertension. She presents with abdominal pain and shortness of breath. She has been diagnosed with drug-induced pancreatitis. She's feeling well much better with improved abdominal pain. Her shortness of breath is also improved. She denies any chest pain. She also denies any other cardiac symptoms especially syncope, near-syncope, palpitations. She denies any orthopnea or PND. She denies any weight gain. Allergies and Home Medications Allergies Coded Allergies: codeine (Unverified Allergy, Mild, 06/16/08) Home Medications Dulaglutide 0.75 Mg/0.5 Ml Pen.injctr, 0.75 MG INJ Tu, (Reported) Enalapril Maleate 5 Mg Tablet, 5 MG PO DAILY, (Reported) Estradiol 2 Mg Tablet, 2 MG PO HS, (Reported) Fenofibrate Nanocrystallized 145 Mg Tablet, 145 MG PO HS, (Reported) LAST FILLED #30 10-08-16 Fluconazole 200 Mg Tablet, 200 MG PO MoTh, (Reported) Glimepiride 4 Mg Tablet, 4 MG PO DAILY, (Reported) Hydrochlorothiazide 25 Mg Tablet, 25 MG PO DAILY, (Reported) Levothyroxine Sodium 125 Mcg Tablet, 125 MCG PO DAILY, (Reported) Medroxyprogesterone Acetate 2.5 Mg Tablet, 2.5 MG PO DAILY, (Reported) Meloxicam 15 Mg Tablet, 15 MG PO DAILY, (Reported) Metformin HCl 1,000 Mg Tablet, 1,000 MG PO BID, (Reported) Pravastatin Sodium 10 Mg Tablet, 10 MG PO HS, (Reported) Venlafaxine HCl 150 Mg Cap.er.24h, 150 MG PO 1900, (Reported) Past Rfmrpgl-Dekwnv-Inveby Hx Patient Social History Alcohol Use: Denies Use Recreational Drug Use: No Smoking Status: Never a Smoker 2nd Hand Smoke Exposure: No Recent Foreign Travel: No Contact w/Someone Who Travel: No Recent Infectious Disease Expo: No Recent Hopitalizations: No Physical Abuse: No Sexual Abuse: No Mistreated: No Fear: No Seasonal Allergies Seasonal Allergies: No Surgeries History of Surgeries: Yes (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 for treatment of hydrocephalus) Surgeries: Gallbladder Respiratory History of Respiratory Disorde: No Cardiovascular History of Cardiac Disorders: Yes Cardiac Disorders: High Cholesterol, Hypertension Neurological History of Neurological Disord: Yes (HYDROCEPHALUS, WITH POOR BALANCE AND URINARY INCONTINENCE) Neurological Disorders: Headaches /Migraines Gastrointestinal History of Gastrointestinal Di: No Musculoskeletal History of Musculoskeletal Dis: Yes Musculoskeletal Disorders: Arthritis, Chronic Back Pain Endocrine History of Endocrine Disorders: Yes Endocrine Disorders: Hypothyroidsim, Diabetes, Non-Insulin dep Cancer History of Cancer: No Psychosocial History of Psychiatric Problem: Yes Behavioral Health Disorders: Depression Suicide Risk Score: 0 Integumentary History of Skin or Integumenta: No Blood Transfusions History of Blood Disorders: No Reviewed Nursing Assessment Reviewed/Agree w Nursing PMH: Yes Family Medical History Significant Family History: Hypertension Family Medial History: Arthritis Asthma Cardiovascular disease Diabetes mellitus Hypertension Myocardial infarction Osteoporosis Psychosocial problem Respiratory disorder Exam Exam Vital Signs Date Time Temp Pulse Resp B/P (MAP) Pulse Ox O2 Delivery O2 Flow Rate FiO2 01/19/17 04:30 98.2 98 29 171/78 96 Nasal Cannula 5.00 01/19/17 02:30 95 Nasal Cannula 4.00 01/19/17 00:39 98.8 93 30 164/72 95 Nasal Cannula 5.00 01/18/17 20:20 98.3 95 24 143/68 94 Nasal Cannula 5.00 01/18/17 19:14 96 Nasal Cannula 5.00 01/18/17 17:47 20 01/18/17 16:39 99.2 100 27 168/70 96 Nasal Cannula 5.00 01/18/17 16:00 Nasal Cannula 5.00 01/18/17 13:10 101.0 92 20 173/75 97 Nasal Cannula 5.00 01/18/17 13:10 Nasal Cannula 5.00 01/18/17 12:00 Nasal Cannula 5.00 01/18/17 12:00 96 27 147/74 93 Nasal Cannula 5.00 01/18/17 11:00 109 41 132/72 94 Nasal Cannula 5.00 01/18/17 10:00 111 34 169/73 95 Nasal Cannula 5.00 01/18/17 09:00 103 21 160/75 93 Nasal Cannula 5.00 01/18/17 09:00 98.5 01/18/17 08:58 98 Nasal Cannula 5.00 01/18/17 08:00 Nasal Cannula 5.00 01/18/17 08:00 90 14 145/75 93 Nasal Cannula 5.00 01/18/17 07:00 92 01/18/17 07:00 92 15 155/77 97 Nasal Cannula 5.00 01/18/17 06:46 97 5.00 General Appearance: No Apparent Distress HEENT: Normal ENT Inspection Neck: Normal Inspection Respiratory: Lungs Clear Cardiovascular: Tachycardia Capillary Refill: Less Than 3 Seconds Peripheral Pulses: 2+ Dorsalis Pedis (R), 2+ Left Dors-Pedis (L) Gastrointestinal: soft, tenderness Extremity: Normal Inspection Neurologic/Psychiatric: Alert, Oriented x3 Skin: Warm/Dry Lymphatic: No Adenopathy Results Lab Laboratory Tests 01/18/17 04:57 01/19/17 06:00 Assessment/Plan Assessment/Plan Acute respiratory failure - improved -BiPAP PRN -Oxygen -SVNs Acute pancreatitis -Surgery following -Appears to be improving -Pt is on Zosyn DM Hyponatremia Anxiety/depression 254 Clinical Quality Measures DVT/VTE Risk/Contraindication: Risk Factor Score Per Nursin RFS Level Per Nursing on Admit: 4+=Very High ANNY NEGRETE DO Jan 19, 2017 06:45
[2017-01-19 08:00] VITALS: BP 158/80
[2017-01-19] MEDS: FUROSEMIDE 40 MG/4 ML INJ (LASIX) IVP SCH (08:18)
[2017-01-19] MEDS: LEVOTHYROXINE 125 MCG (LEVOTHROID) TABLET PO SCH (08:19)
[2017-01-19] MEDS: ENOXAPARIN 40 MG/0.4 ML (LOVENOX) SYR SC SCH (08:19)
[2017-01-19] MEDS: CALCIUM CARBONATE 500 MG (TUMS) TAB.CHEW PO SCH ×3 (08:19→21:06)
[2017-01-19] MEDS: FAMOTIDINE 20MG/2ML IV (PEPCID) IV SCH ×2 (08:20→21:06)
[2017-01-19] MEDS: SENNA W/DOCUSATE (SENOKOT S) TABLET PO SCH (08:37)
[2017-01-19] MEDS: ACETAMINOPHEN 325 MG TABLET/CAPLET (TYLENOL) PO PRN ×3 (08:37→21:07)
[2017-01-19] MEDS ORDERED: ENALAPRIL 5 MG (VASOTEC) TAB PO SCH ×2 (09:00)
--- NOTE | 2017-01-19 09:22 | Progress Note (SOAP) ---
Objective Exam Vital Signs Date Time Temp Pulse Resp B/P (MAP) Pulse Ox O2 Delivery O2 Flow Rate FiO2 01/19/17 06:37 29 01/19/17 04:30 98.2 98 29 171/78 96 Nasal Cannula 5.00 01/19/17 02:30 95 Nasal Cannula 4.00 01/19/17 00:39 98.8 93 30 164/72 95 Nasal Cannula 5.00 01/18/17 20:20 98.3 95 24 143/68 94 Nasal Cannula 5.00 01/18/17 19:14 96 Nasal Cannula 5.00 01/18/17 17:47 20 01/18/17 16:39 99.2 100 27 168/70 96 Nasal Cannula 5.00 01/18/17 16:00 Nasal Cannula 5.00 01/18/17 13:10 101.0 92 20 173/75 97 Nasal Cannula 5.00 01/18/17 13:10 Nasal Cannula 5.00 01/18/17 12:00 Nasal Cannula 5.00 01/18/17 12:00 96 27 147/74 93 Nasal Cannula 5.00 01/18/17 11:00 109 41 132/72 94 Nasal Cannula 5.00 01/18/17 10:00 111 34 169/73 95 Nasal Cannula 5.00 I & O 01/20/17 07:00 Intake Total 100 ml Balance 100 ml Capillary Refill : Less Than 3 Seconds Results Lab Laboratory Tests 01/18/17 12:36: Glucometer 168H 01/18/17 15:53: Glucometer 238H 01/18/17 21:00: Glucometer 279H 01/19/17 05:34: Glucometer 191H 01/19/17 06:00: White Blood Count 7.9, Red Blood Count 3.08L, Hemoglobin 9.2L, Hematocrit 29L, Mean Corpuscular Volume 94, Mean Corpuscular Hemoglobin 30, Mean Corpuscular Hemoglobin Concent 32, Red Cell Distribution Width 14.0, Platelet Count 213, Mean Platelet Volume 10.3, Neutrophils (%) (Auto) 66, Lymphocytes (%) (Auto) 12 , Monocytes (%) (Auto) 17H, Eosinophils (%) (Auto) 5, Basophils (%) (Auto) 0, Neutrophils # (Auto) 5.2, Lymphocytes # (Auto) 0.9L, Monocytes # (Auto) 1.3H, Eosinophils # (Auto) 0.4H, Basophils # (Auto) 0.0, Sodium Level 135, Potassium Level 3.5L, Chloride Level 100, Carbon Dioxide Level 23, Anion Gap 12, Blood Urea Nitrogen 7, Creatinine 0.66, Estimat Glomerular Filtration Rate > 60, BUN/ Creatinine Ratio 11, Glucose Level 195H, Calcium Level 8.3L, Total Bilirubin 0.4 , Aspartate Amino Transf (AST/SGOT) 18, Alanine Aminotransferase (ALT/SGPT) 20, Alkaline Phosphatase 50, Total Protein 5.8L, Albumin 2.7L, Lipase 166H Microbiology 01/14/17 Blood Culture - Preliminary, Resulted No growth Assessment/Plan Assessment/Plan Assess & Plan/Chief Complaint ACUTE PANCREATITIS SEPSIS METABOLIC ACIDOSIS HYPONATREMIA HYPOKALEMIA DIABETES MELLITUS HYPERTENSION ACUTE PANCREATITIS - IV ANTIBIOTICS, IV FLUIDS, NPO EXCEPT ICE CHIPS AND ADDED JELLO TODAY, LIPASE HAS IMPROVED SIGNIFICANTLY CT SCAN IMPRESSION FOLLOWS: IMPRESSION: 1. Hepatomegaly with hepatic steatosis. 2. Findings are consistent with acute pancreatitis. No evidence of pancreatic necrosis or hemorrhage. SEPSIS - ON ZOSYN IV METABOLIC ACIDOSIS - MONITOR LABS - CO2 LOW THIS MORNING - BUT IMPROVED FROM 5 YESTERDAY - CONTINUE WITH IV FLUIDS WITH SODIUM BICARB IN FLUIDS, HOPEFULLY TOMORROW, THE ON-CALL PHYSICIAN CAN DECREASE OR STOP THE SODIUM BICARB FLUIDS AND JUST GIVE NORMAL SALINE - ANTICIPATE IMPROVEMENT PT IS HYDRATED AND HER SEPSIS AND ACUTE PANCREATITIS IS TREATED. HYPONATREMIA AND HYPOKALEMIA AND HYPOMAGNESEMIA - HYPONATREMIA - IMPROVED, HYPOKALEMIA -AND HYPOMAGNESEMIA - GIVE POTASSIUM AND MAGNESIUM IV TODAY - SUPPORTIVE CARE, IV FLUIDS, MONITOR LABS. DIABETES MELLITUS - MONITOR LABS, WILL TREAT WITH INSULIN SQ - CHANGED TO SLIDING SCALE B, HOLD ALL HOME DIABETIC MEDICATIONS. HYPERTENSION - CHRONIC - MONITOR PRESSURE HOLD ORAL HOME MEDICATIONS. DVT PROPHYLAXIS WILL BE WITH SCD'S AND LOVENOX. GI PROPHYLAXIS WITH IV PROTONIX Clinical Quality Measures DVT/VTE Risk/Contraindication: Risk Factor Score Per Nursin RFS Level Per Nursing on Admit: 4+=Very High ROSS MCNALLY MD Jan 19, 2017 09:22
--- NOTE | 2017-01-19 10:24 | Cardiology Progress Note ---
Cardiology SOAP Progress Note Subjective: No significant cardiac symptoms Objective: I&O/Vital Signs Vital Sign - Last 12Hours 01/19/17 01/19/17 01/19/17 01/19/17 00:39 02:30 04:30 06:37 Temp 98.8 98.2 Pulse 93 98 Resp 30 29 29 B/P (MAP) 164/72 171/78 Pulse Ox 95 95 96 O2 Delivery Nasal Cannula Nasal Cannula Nasal Cannula O2 Flow Rate 5.00 4.00 5.00 01/19/17 01/19/17 08:00 09:54 Temp 99.1 Pulse 99 Resp 22 B/P (MAP) 158/80 Pulse Ox 95 96 O2 Delivery Nasal Cannula Nasal Cannula O2 Flow Rate 5.00 2.00 Weight (Pounds): 239 Weight (Ounces): 6.0 Weight (Calculated Kilograms): 108.610600 Constitutional: No appears stated age, No AAO x 3, No apparent distress, No PERRL, No well-developed, No well-nourished, No other Respiratory: No accessory muscle use, No respiratory distress, No chest tender , No chest expansion is symmetric, No chest is bilaterally symmetric, No lungs clear to percussion, No lungs clear to auscultation, No crackles, No rhonchi, No rales, No stridor, No wheezing, No pleural rub, No other Cardiovascular: No regular rate-rhythm, No irregularly irregular, No extra beats, No parasternal heave is noted, No JVD, No edema, No bradycardia, No tachycardia, No point of maximal impulse, No cardiac thrills are palpable, No S1 and S2, No gallop/S3, No gallop/S4, No diastolic murmur, No systolic murmur, No friction rub, No click, No other Gastrointestional: No tender, No soft, No round, No distended, No pulsatile mass, No organomegaly, No guarding, No rebound, No tenderness, No hernia, No mass, No audible bowel sounds, No abnormal bowel sounds, No abdominal bruits, No spleenomegaly, No other Extremities: No normal range of motion, No non-tender, No normal inspection, No pedal edema, No calf tenderness, No normal capillary refill, No pelvis stable , No calf tenderness, No inflammation, No pedal edema, No slow capillary refill , No swelling, No other, No abrasion, No clubbing, No cyanosis, No ecchymosis, No laceration, No no lower extremity edema bilateral, No significant edema, No tenderness, No wound Neurologic/Psychiatric: No banjo repairer II-XII nml as tested, No no motor/sensory deficits, No alert, No normal mood/affect, No oriented x 3, No abnormal cerebellar tests, No abnormal banjo repairer II-XII, No abnormal gait, No aphasia, No EOM palsy, No facial droop, No motor weakness, No sensory deficit, No depressed affect, No disoriented x 3, No other, No grossly intact, No power is 5/5 both on sides Skin: No normal color, No warm/dry, No cyanosis, No cool, No diaphoresis, No damp, No ecchymosis, No jaundice, No mottled, No pallor, No rash, No tattoos/ piercings, No ulcerations, No rash on exposed areas, No ulcerations on exposed areas, No other Results/Procedures: Labs Laboratory Tests 01/18/17 12:36: Glucometer 168H 01/18/17 15:53: Glucometer 238H 01/18/17 21:00: Glucometer 279H 01/19/17 05:34: Glucometer 191H 01/19/17 06:00: White Blood Count 7.9, Red Blood Count 3.08L, Hemoglobin 9.2L, Hematocrit 29L, Mean Corpuscular Volume 94, Mean Corpuscular Hemoglobin 30, Mean Corpuscular Hemoglobin Concent 32, Red Cell Distribution Width 14.0, Platelet Count 213, Mean Platelet Volume 10.3, Neutrophils (%) (Auto) 66, Lymphocytes (%) (Auto) 12 , Monocytes (%) (Auto) 17H, Eosinophils (%) (Auto) 5, Basophils (%) (Auto) 0, Neutrophils # (Auto) 5.2, Lymphocytes # (Auto) 0.9L, Monocytes # (Auto) 1.3H, Eosinophils # (Auto) 0.4H, Basophils # (Auto) 0.0, Sodium Level 135, Potassium Level 3.5L, Chloride Level 100, Carbon Dioxide Level 23, Anion Gap 12, Blood Urea Nitrogen 7, Creatinine 0.66, Estimat Glomerular Filtration Rate > 60, BUN/ Creatinine Ratio 11, Glucose Level 195H, Calcium Level 8.3L, Total Bilirubin 0.4 , Aspartate Amino Transf (AST/SGOT) 18, Alanine Aminotransferase (ALT/SGPT) 20, Alkaline Phosphatase 50, Total Protein 5.8L, Albumin 2.7L, Lipase 166H Microbiology 01/14/17 Blood Culture - Preliminary, Resulted No growth A/P: Assessment/Dx: 1. Pancreatitis, 2. Shortness of breath, 3. Diabetes, 4. Hypertension Plan: 1. Pancreatitis, deferred to primary team. 2. Shortness of breath: Normal echocardiogram. Normal BNP. Euvolemic on examination. No congestive heart failure. May require nuclear stress testing as an outpatient to rule out ischemic heart disease due to significant coronary artery disease risk factors including diabetes. 3. Diabetes, deferred to primary team. 4. Hypertension: Still elevated. Outpatient dose of enalapril started yesterday. We will double the dose of enalapril. Thank you for your consultation. Please call me if you have any questions. Lola Joiner MD, FACP, FACC, FSCAI, FHRS, CCDS Interventional Cardiology Cardiac Electrophysiology Vascular Medicine and Endovascular Interventions Cecil JOINER MD Jan 19, 2017 10:24
[2017-01-19] MEDS: fentaNYL PCA 300 MCG/30 ML VIAL IV PRN (11:03)
[2017-01-19 12:00] VITALS: BP 176/78
--- NOTE | 2017-01-19 12:01 | Progress Note (SOAP) ---
Subjective Date Seen by Provider: Jan 19, 2017 Time Seen by Provider: 07:15 Subjective/Events-last exam abdominal pain much improved. Passing flatus. Lipase declining Review of Systems General: No Chills, No Night Sweats, No Fatigue, No Malaise HEENT: No Head Aches, No Eye Pain, No Ear Pain, No Dysphasia, No Sinus Congestion, No Post Nasal Drip, No Sore Throat Pulmonary: No Dyspnea, No Cough, No Pleuritic Chest Pain Cardiovascular: No: Chest Pain, Palpitations, Orthopnea, Paroxysmal Noc. Dyspnea, Edema, Lt Headedness Gastrointestinal: Abdominal Pain Genitourinary: No Dysuria, No Frequency, No Incontinence, No Hematuria, No Retention Neurological: No: Weakness, Numbness, Incoordination, Change in speech, Confusion, Seizures, Other Objective Exam Vital Signs Date Time Temp Pulse Resp B/P (MAP) Pulse Ox O2 Delivery O2 Flow Rate FiO2 01/19/17 11:03 20 01/19/17 09:54 96 Nasal Cannula 2.00 01/19/17 08:00 99.1 99 22 158/80 95 Nasal Cannula 5.00 01/19/17 06:37 29 01/19/17 04:30 98.2 98 29 171/78 96 Nasal Cannula 5.00 01/19/17 02:30 95 Nasal Cannula 4.00 01/19/17 00:39 98.8 93 30 164/72 95 Nasal Cannula 5.00 01/18/17 20:20 98.3 95 24 143/68 94 Nasal Cannula 5.00 01/18/17 19:14 96 Nasal Cannula 5.00 01/18/17 17:47 20 01/18/17 16:39 99.2 100 27 168/70 96 Nasal Cannula 5.00 01/18/17 16:00 Nasal Cannula 5.00 01/18/17 13:10 101.0 92 20 173/75 97 Nasal Cannula 5.00 01/18/17 13:10 Nasal Cannula 5.00 01/18/17 12:00 Nasal Cannula 5.00 01/18/17 12:00 96 27 147/74 93 Nasal Cannula 5.00 I & O 01/20/17 06:59 Intake Total 100 ml Balance 100 ml Capillary Refill : Less Than 3 Seconds General Appearance: No Apparent Distress Neck: Normal Inspection Respiratory: Lungs Clear Cardiovascular: Regular Rate, Rhythm Gastrointestinal: soft, tenderness Extremity: Normal Inspection Neurologic/Psychiatric: Oriented x3 Skin: Warm/Dry Other comments mild epigastric tenderness. Results Lab Laboratory Tests 01/18/17 12:36: Glucometer 168H 01/18/17 15:53: Glucometer 238H 01/18/17 21:00: Glucometer 279H 01/19/17 05:34: Glucometer 191H 01/19/17 06:00: White Blood Count 7.9, Red Blood Count 3.08L, Hemoglobin 9.2L, Hematocrit 29L, Mean Corpuscular Volume 94, Mean Corpuscular Hemoglobin 30, Mean Corpuscular Hemoglobin Concent 32, Red Cell Distribution Width 14.0, Platelet Count 213, Mean Platelet Volume 10.3, Neutrophils (%) (Auto) 66, Lymphocytes (%) (Auto) 12 , Monocytes (%) (Auto) 17H, Eosinophils (%) (Auto) 5, Basophils (%) (Auto) 0, Neutrophils # (Auto) 5.2, Lymphocytes # (Auto) 0.9L, Monocytes # (Auto) 1.3H, Eosinophils # (Auto) 0.4H, Basophils # (Auto) 0.0, Sodium Level 135, Potassium Level 3.5L, Chloride Level 100, Carbon Dioxide Level 23, Anion Gap 12, Blood Urea Nitrogen 7, Creatinine 0.66, Estimat Glomerular Filtration Rate > 60, BUN/ Creatinine Ratio 11, Glucose Level 195H, Calcium Level 8.3L, Total Bilirubin 0.4 , Aspartate Amino Transf (AST/SGOT) 18, Alanine Aminotransferase (ALT/SGPT) 20, Alkaline Phosphatase 50, Total Protein 5.8L, Albumin 2.7L, Lipase 166H 01/19/17 11:36: Glucometer 214H Microbiology 01/14/17 Blood Culture - Preliminary, Resulted No growth Assessment/Plan Assessment/Plan Assess & Plan/Chief Complaint lady with idiopathic and otitis. Amylase and lipase trending down. We'll continue to observe. Hypocalcemia possibly secondary to pancreatitis, being replaced. lady with resolving pancreatitis. Potassium phosphorus low, being replaced. Lipase declining Final Diagnosis acute, idiopathic pancreatitis Clinical Quality Measures DVT/VTE Risk/Contraindication: Risk Factor Score Per Nursin RFS Level Per Nursing on Admit: 4+=Very High JEOVANY LONG MD Jan 19, 2017 12:01 pm
[2017-01-19] MEDS: NS IV 1000 ML 1,000 ML IV SCH (14:47)
[2017-01-19 16:00] VITALS: BP 172/79
[2017-01-19 20:00] VITALS: BP 180/82
[2017-01-20] VITALS: BP 171/73
[2017-01-20] MEDS: RT-ALBUTEROL/IPRATROPIUM 3 ML (DUONEB) VIAL INH SCH ×3 (03:24→10:10)
[2017-01-20 04:00] VITALS: BP 168/64
[2017-01-20] MEDS: inSUlin ASPART (NovoLOG) 1 UNIT/0.01 ML (CHARGE PER UNIT) SC SCH (06:10)
[2017-01-20] MEDS: VENlafaxine XR 75 MG (EFFEXOR XR) CAP PO SCH (06:10)
[2017-01-20] MEDS: PIPERACILLIN/TAZOBACTAM 4.5 GM/NS 100 ML IVPB IV SCH ×2 (06:10)
[2017-01-20] MEDS: NS IV 1000 ML 1,000 ML IV SCH (06:13)
[2017-01-20 08:00] VITALS: BP 192/88
[2017-01-20] MEDS ORDERED: INFLUENZA TRIvalent 2017-2018 0.5 ML/45 MCG SYR IM ONE (08:41)
[2017-01-20] MEDS: CALCIUM CARBONATE 500 MG (TUMS) TAB.CHEW PO SCH (08:44)
[2017-01-20] MEDS: FAMOTIDINE 20MG/2ML IV (PEPCID) IV SCH (08:44)
[2017-01-20] MEDS: LEVOTHYROXINE 125 MCG (LEVOTHROID) TABLET PO SCH (08:44)
[2017-01-20] MEDS: FUROSEMIDE 40 MG/4 ML INJ (LASIX) IVP SCH (08:44)
[2017-01-20] MEDS: SENNA W/DOCUSATE (SENOKOT S) TABLET PO SCH (08:44)
[2017-01-20] MEDS: ENOXAPARIN 40 MG/0.4 ML (LOVENOX) SYR SC SCH (08:45)
[2017-01-20] MEDS ORDERED: ENALAPRIL 10 MG (VASOTEC) TAB PO SCH (09:00)
--- NOTE | 2017-01-20 09:30 | Discharge Summary ---
Diagnosis/Chief Complaint Date of Admission Jan 14, 2017 at 7:37 am Date of Discharge Admission Diagnosis Admission Diagnosis ACUTE PANCREATITIS SEPSIS METABOLIC ACIDOSIS HYPONATREMIA HYPOKALEMIA DIABETES MELLITUS HYPERTENSION Reason Hospital Visit PT IS A 51 Y/O FEMALE WHO IS KNOWN TO ME FROM CLINIC. SHE PRESENTED TO THE HOSPITAL WITH COMPLAINT OF NAUSEA, ABDOMINAL PAIN, AND WAS FOUND TO HAVE ACUTE PANCREATITIS AND METABOLIC ACIDOSIS. Discharge Summary Discharge Physical Examination Allergies: Coded Allergies: codeine (Unverified Allergy, Mild, 06/16/08) Vitals & I&Os Vital Signs Date Time Temp Pulse Resp B/P (MAP) Pulse Ox O2 Delivery O2 Flow Rate FiO2 01/20/17 08:00 97.5 87 20 192/88 96 Nasal Cannula 3.00 01/18/17 00:00 40 Hospital Course Pending Labs Laboratory Tests 01/20/17 05:59: Glucometer 186 Discharge Instructions to patient/family Please see electronic discharge instructions given to patient. Discharge Medications Reviewed and agree with Discharge Medication list on patient's Discharge Instruction sheet Clinical Quality Measures DVT/VTE Risk/Contraindication: Risk Factor Score Per Nursin RFS Level Per Nursing on Admit: 4+=Very High ROSS MCNALLY MD Jan 20, 2017 9:30 am
[2017-01-20] MEDS ORDERED: PRAV10TA PO (09:39)
[2017-01-20] MEDS ORDERED: [UNRECOGNIZED DRUG - SUPPLY] (09:39)
[2017-01-20] MEDS ORDERED: FENO145T20 PO (09:39)
[2017-01-20] MEDS ORDERED: OXYC-197 PO (09:39)
[2017-01-20] MEDS ORDERED: INSU100I29 SQ (09:39)
[2017-01-20] MEDS ORDERED: ENAL10TA PO (09:39)
--- NOTE | 2017-01-20 09:41 | Discharge Inst-Complex ---
PDI Med Rec & Follow Up Appt. New Medications: Insulin Detemir (Levemir Flextouch) 100 Unit/1 Ml Insuln.pen 15 UNIT SQ DAILY for 30 Days, #1 EA 4 Refills Oxycodone HCl/Acetaminophen (Percocet 5-325 mg Tablet) 1 Each Tablet 1 EACH PO TID PRN for PAIN-MILD TO MODERATE for 30 Days, #30 TAB [pen needle 32g 5/16] () 1 BOX 1 for 90 Days, #90 B 6 Refills 32 guage 5/16 inch needles for insulin pen use with levemir rx Enalapril Maleate (Enalapril Maleate) 10 Mg Tablet 10 MG PO BID, #30 TAB 6 Refills Changed Medications: Fenofibrate Nanocrystallized (Fenofibrate) 145 Mg Tablet 145 MG PO HS, #30 TAB 6 Refills (Changed from: Refills: ; LAST FILLED #30 10-08-16 ) hold until 02/18/17, then resume medications Pravastatin Sodium (Pravastatin Sodium) 10 Mg Tablet 10 MG PO HS for 30 Days, #30 TAB 6 Refills (Changed from: Refills: ) hold until 02/18/17 - then resume medication Continued Medications: Estradiol (Estradiol Tablet) 2 Mg Tablet 2 MG PO HS, TAB Fluconazole (Fluconazole) 200 Mg Tablet 200 MG PO MoTh, TAB Hydrochlorothiazide (Hydrochlorothiazide) 25 Mg Tablet 25 MG PO DAILY, TAB Levothyroxine Sodium (Levothyroxine Sodium) 125 Mcg Tablet 125 MCG PO DAILY, TAB Medroxyprogesterone Acetate (Provera) 2.5 Mg Tablet 2.5 MG PO DAILY, TAB Meloxicam (Meloxicam) 15 Mg Tablet 15 MG PO DAILY, TAB Venlafaxine HCl (Venlafaxine HCl ER) 150 Mg Cap.er.24h 150 MG PO 1900, CAP Discontinued Medications: Dulaglutide (Trulicity) 0.75 Mg/0.5 Ml Pen.injctr 0.75 MG INJ Tu, EA Enalapril Maleate (Enalapril Maleate) 5 Mg Tablet 5 MG PO DAILY, TAB Glimepiride (Glimepiride) 4 Mg Tablet 4 MG PO DAILY, TAB Metformin HCl (Metformin HCl) 1,000 Mg Tablet 1000 MG PO BID, TAB Prescription: Transmitted to Pharmacy Activity, Diet and PDI Resume Normal Activity: Yes Discharge Diet: Other Diet (bland diet) Diet for 24 Hours: No Alcohol, No [place] [employer], No Spicy Foods Diet After 24 Hours: Clear Liquid if Nauseous Drink 6-8 Glasses of Fluid/Day: Yes Driving Instructions: No Driving for 24 Hours May Return to Work/School/Day: May Return to Work ( on 01/26/17) Symptoms to Reoprt to DrBartolo: Appetite Changes, Diarrhea(Persistant), Nausea/ Vomiting, Shortness of Breath For Problems or Questions: Contact Your Physician, Go to Emergency Room Infection Signs and Symptoms: Temperature Above 101 F ROSS MCNALLY MD Jan 20, 2017 9:40 am
[2017-01-20] MEDS ORDERED: inSUlin DETERMIR 1 UNIT/0.01 ML (LEVEMIR) CHARGE PER UNIT SQ NR (09:52)
[2017-01-20 11:09] VITALS: BP 192/88
[2017-01-20] MEDS ORDERED: FAMOTIDINE 20 MG (PEPCID) TABLET PO SCH (21:00)
== END 2017-01-20 11:09 | disposition home or self-care (01) | DRG 871 ==
LOC: EDUNIT# 04:50 → ER 04:52 → 4TH 07:37 → ICU 01-16 20:25 → 4TH 01-18 13:10
PROVIDERS: ADMIT Family Medicine; ATTEND Family Medicine
DX: A41.9 Sepsis, unspecified organism (principal); K85.30 Drug induced acute pancreatitis without necrosis or infection; T38.3X5A Adverse effect of insulin and oral hypoglycemic [antidiabetic] drugs, initial encounter; J96.00 Acute respiratory failure, unspecified whether with hypoxia or hypercapnia; E87.2 Acidosis; E87.1 Hypo-osmolality and hyponatremia; E87.6 Hypokalemia; E87.8 Other disorders of electrolyte and fluid balance, not elsewhere classified; G91.9 Hydrocephalus, unspecified; E11.9 Type 2 diabetes mellitus without complications; I10 Essential (primary) hypertension; E78.00 Pure hypercholesterolemia, unspecified; E03.9 Hypothyroidism, unspecified; E83.51 Hypocalcemia; E87.70 Fluid overload, unspecified; D64.9 Anemia, unspecified; Z98.2 Presence of cerebrospinal fluid drainage device; Z23 Encounter for immunization
CPT/HCPCS: 36415; 36569; 71010; 71020; 74177; 76937; 80048; 80053; 80320; 80329; 81000; 82010; 82040; 82150; 82330; 82375; 82805; 82962; 83036; 83605; 83690; 83735; 83880; 83930; 84100; 84484; 85025; 85027; 85610; 85730; 87040; 93306; 94640; 94660; 94664; 94760; 96361; 96365; 96375; 96376

== ENCOUNTER → 2017-02-27 | Outpatient (CLI) | payer BC ==
[~2017-02-27] MED LIST changes: +DULA0.75 INJ; +ENAL10TA PO; +FENO145T20 PO; +FLUC200T5 PO; +HYDR25TA4 PO; +INSU100I29 SQ; +MELO15TA39 PO; +METF1000 PO; +OXYC-197 PO; +PRAV10TA PO; +VENL150C98 PO; +[UNRECOGNIZED DRUG - SUPPLY]
== END ==
LOC: RAD 11:00
PROVIDERS: ATTEND Nurse Practitioner Family
DX: Z12.31 Encounter for screening mammogram for malignant neoplasm of breast (principal)
CPT/HCPCS: 77067

== ENCOUNTER → 2017-06-26 | Outpatient (CLI) | payer BC ==
[~2017-06-26] MED LIST changes: -FENO145T20 PO; +FENO145T37 PO; -METF1000 PO; +METF10002 PO
--- NOTE | 2017-06-26 13:32 | Diagnostic Imaging Report ---
PROCEDURE: CT head without contrast. TECHNIQUE: Multiple contiguous axial images were obtained through the brain without the use of intravenous contrast. INDICATION: Dizziness and hydrocephalus. COMPARISON: Comparison is made with prior head CT from 08/08/2015. 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 Tip is in the region of the third ventricle. The degree of ventricular dilatation is stable when compared with prior CT. No sulcal effacement, midline shift or hemorrhage is detected. Cisterns are patent. IMPRESSION: Stable head CT and ventriculomegaly when compared with prior examination from 08/08/2015. Dictated by: Dictated on workstation # [id number]
== END ==
LOC: RAD 12:48
PROVIDERS: ATTEND Nurse Practitioner
DX: G91.9 Hydrocephalus, unspecified (principal); R42 Dizziness and giddiness
CPT/HCPCS: 70450

== ENCOUNTER → 2018-10-07 | Emergency (ER) | payer BC ==
[~2018-10-07] MED LIST changes: +ASPI-983 PO; +ATOR80TA76 PO; +BIOT5000 PO; +CHOL200059 PO; +METF-399 PO; -METF10002 PO; +METO-387 PO; +OMG1KC PO; -OXYC-197 PO; +OXYC1TAB87 PO; +PANT40TA3 PO; +PRAV40TA2 PO; +TICA90TA PO
--- NOTE | 2018-10-07 17:00 | NUR ---
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 NOW STATES SHE IS ONLY HAVING BACK PAIN. PT LEFT WITHOUT BEING SEEN.
== END | disposition left against medical advice (07) ==
LOC: EDUNIT# 16:38 → ER 16:39
DX: R07.9 Chest pain, unspecified (principal); M54.9 Dorsalgia, unspecified

== ENCOUNTER 2018-10-08 10:12 | Inpatient (IN) | payer BC ==
[~2018-10-08] VITALS: Ht 170.2 cm; Wt 87.5 kg
[2018-10-08] VITALS (16 sets, daily range): BP systolic 105–161; BP diastolic 75–103
[2018-10-08] MEDS: NS IV 1000 ML 1,000 ML IV SCH (10:10)
[~2018-10-08 10:12] MED LIST changes: -ASPI-983 PO; +ASPIRIN 81 MG CHEW (CHILDREN'S ASA) ONE; -ATOR80TA76 PO; -BIOT5000 PO; -CHOL200059 PO; -HEParin (CATH LAB) 1,000 ML IV ONE; -HEParin (CATH LAB) 2,000 ML IV ONE; -HEParin 1000 UNIT/ML (10ML VIAL) FOR BOLUS ONE; -LIDOCAINE 1% INJ 20 ML 20 ML VIAL ONE; -METO-387 PO; -MIDAZOLAM 5 MG/5 ML (VERSED) VIAL ONE; -NS IV 1000 ML 1,000 ML ONE; -OMG1KC PO; -ONDANSETRON 4 MG/2 ML (SDV) Z0FRAN ONE; -PANT40TA3 PO; -PRAV40TA2 PO; -TICA90TA PO; -fentaNYL INJECTION 100 MCG/2 ML AMP ONE
--- NOTE | 2018-10-08 10:12 | NUR ---
324 mg baby aspirin given to patient
[2018-10-08] MEDS ORDERED: ASPIRIN 81 MG CHEW (CHILDREN'S ASA) PO ONE (10:15)
--- NOTE | 2018-10-08 10:26 | NUR ---
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
[2018-10-08 10:28] LABS: BASOPHILS % (AUTO) 0 % (0-10); EOSINOPHILS # (AUTO) 0.1 10^3/uL (0.0-0.3); EOSINOPHILS % (AUTO) 1 % (0-10); HEMATOCRIT 44 % (35-52); HEMOGLOBIN 14.5 G/DL (11.5-16.0); LYMPHOCYTES % (AUTO) 17 % (12-44); MEAN CORPUSCULAR HEMOGLOBIN 29 PG (25-34); MEAN CORPUSCULAR HGB CONC 33 G/DL (32-36); MEAN CORPUSCULAR VOLUME 89 FL (80-99); MEAN PLATELET VOLUME 10.7 FL (7.4-10.4); MONOCYTES # (AUTO) 0.5 X 10^3 (0.0-1.0); MONOCYTES % (AUTO) 5 % (0-12); NEUTROPHILS # (AUTO) 9.2 X 10^3 (1.8-7.8); NEUTROPHILS % (AUTO) 78 % (42-75); PLATELET COUNT 302 10^3/uL (130-400); RED CELL DISTRIBUTION WIDTH 13.8 % (10.0-14.5); WHITE BLOOD COUNT 11.8 10^3/uL (4.3-11.0)
--- OUTSIDE RECORDS SUMMARY | 2018-10-08 10:28 | XMS REPORT | CCD ---
Author Author [facility] Organization [facility] Address [address] [place] [address] Phone Care Team Providers Care Electronics Recycler Name Role Phone PP Unavailable CCM Unavailable Summary Purpose Interface Exchange Insurance Providers Payer name Policy type / Coverage type Covered green party ID Effective Begin Date Effective End Date Blue Cross Blue [facility] Blue Cross/Blue [facility] [id number] Unknown Family history Mother Diagnosis Age At Onset Cancer Unknown Arthritis Unknown Depression Unknown Hyperlipidemia Unknown Diabetes mellitus Type 2 Unknown Social History Social History Element Codes Description Effective Dates Marital status Unknown Yinka 08/07/2014 Number of children Unknown 0 08/07/2014 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 [employer] 08/07/[address]: 248453445 Never smoker 08/07/[address]: 863976610 Never drinks alcohol 08/07/2014 Allergies, Adverse Reactions, Alerts Substance Reaction Codes Entered Date Inactivated Date Status CODEINE emesis RxNorm: 2670 08/07/2014 No Inactive Date Active Past Medical History Illness Codes Condition Status Onset Date Resolved Date Essential (primary) hypertension ICD-9: 401.9 ICD-10: I10 Active 08/06/2014 Unknown Type 2 diabetes mellitus with hyperglycemia ICD-9: 250.00 ICD-10: E11.65 Active 03/11/2018 Unknown Acute recurrent maxillary sinusitis ICD-9: 461.0 ICD-10: J01.01 Active 06/06/2015 Unknown Mixed hyperlipidemia ICD- 9: 272.2 ICD-10: E78.2 Active 03/11/2018 Unknown Other allergic rhinitis ICD-9: 477.8 ICD-10: J30.89 Active 03/26/2016 Unknown Paresthesia of skin ICD- 9: 782.0 ICD-10: R20.2 Active 02/17/2018 Unknown Pain in right shoulder ICD-9: 719.41 ICD-10: M25.511 Active 12/21/2017 Unknown Rash and other nonspecific skin eruption ICD-9: 782.1 ICD-10: R21 Active 12/21/2017 Unknown Localized edema ICD-9: 782.3 ICD-10: R60.0 Active 11/30/2017 Unknown Other acute sinusitis ICD- 9: 461.8 ICD-10: J01.80 Active 03/26/2016 Unknown Other specified hypothyroidism ICD-9: 244.8 ICD-10: E03.8 Active 11/07/2016 Unknown Acute sinusitis, unspecified ICD-9: 461.9 ICD-10: J01.90 Active 12/06/2014 Unknown Cough ICD-9: 786.2 ICD-10: R05 Active 03/26/2016 Unknown Headache ICD-9: 784.0 ICD-10: R51 Active 05/19/2017 Unknown Acute laryngopharyngitis ICD-9: 465.0 ICD-10: J06.0 Active 04/16/2017 Unknown Left lower quadrant pain ICD-9: 789.04 ICD-10: R10.32 Active 02/10/2017 Unknown Other muscle spasm ICD- 9: 728.85 ICD-10: M62.838 Active 02/02/2017 Unknown Pain in thoracic spine ICD-9: 724.1 ICD-10: M54.6 Active 02/02/2017 Unknown Epigastric pain ICD-9: 789.06 ICD-10: R10.13 Active 01/27/2017 Unknown Other acute pancreatitis without necrosis or infection ICD-9: 577.0 ICD-10: K85.80 Active 01/27/2017 Unknown Type 2 diabetes mellitus without complications ICD-9: 250.00 ICD-10: E11.9 Active 01/27/2017 Unknown Actinic keratosis ICD-9: 702.0 ICD-10: L57.0 Active 11/07/2016 Unknown Bilateral primary osteoarthritis of hip ICD-9: 715.95 ICD-10: M16.0 Active 11/07/2016 Unknown Type 1 diabetes mellitus without complications ICD-9: 250.00 ICD-10: E10.9 Active 11/07/2016 Unknown Pure hyperglyceridemia ICD-9: 272.1 ICD-10: E78.1 Active 09/06/2014 Unknown (Idiopathic) normal pressure hydrocephalus ICD-9: 331.5 ICD-10: G91.2 Active 08/06/2014 Unknown Acute upper respiratory infection, unspecified ICD-9: 465.9 ICD-10: J06.9 Active 06/12/2015 Unknown Other acute nonsuppurative otitis media, right ear ICD-9: 381.00 ICD-10: H65.191 Active 06/12/2015 Unknown Allergic rhinitis due to pollen ICD-9: 477.0 ICD-10: J30.1 Active 06/06/2015 Unknown Dizziness and giddiness ICD-9: 780.4 ICD-10: R42 Active 03/12/2015 Unknown Nausea with vomiting, unspecified ICD-9: 787.01 ICD-10: R11.2 Active 03/12/2015 Unknown Allergic rhinitis, unspecified ICD-9: 477.9 ICD-10: J30.9 Active 12/06/2014 Unknown Hypertriglyceridemia ICD- 9: 272.1 Active 09/06/2014 Unknown Diabetes Unknown Active 08/07/2014 Unknown Hypertension Unknown Active 08/07/2014 Unknown Abnormal gait ICD-9: 781.2 Active 08/06/2014 Unknown DIABETES TYPE II ICD-9: 250.00 Active 08/06/2014 Unknown ESSENTIAL HYPERTENSION ICD-9: 401.9 Active 08/06/2014 Unknown NPH (normal pressure hydrocephalus) ICD-9: 331.5 Active 08/06/2014 Unknown VITAMIN D DEFICIENCY ICD- 9: 268.9 Active 08/06/2014 Unknown Problems Condition Codes Effective Dates Condition Status Essential (primary) hypertension ICD-9: 401.9 ICD-10: I10 08/06/2014 Active Type 2 diabetes mellitus with hyperglycemia ICD-9: 250.00 ICD-10: E11.65 03/11/2018 Active Acute recurrent maxillary sinusitis ICD-9: 461.0 ICD-10: J01.01 06/06/2015 Active Mixed hyperlipidemia ICD- 9: 272.2 ICD-10: E78.2 03/11/2018 Active Other allergic rhinitis ICD-9: 477.8 ICD-10: J30.89 03/26/2016 Active Paresthesia of skin ICD- 9: 782.0 ICD-10: R20.2 02/17/2018 Active Pain in right shoulder ICD-9: 719.41 ICD-10: M25.511 12/21/2017 Active Rash and other nonspecific skin eruption ICD-9: 782.1 ICD-10: R21 12/21/2017 Active Localized edema ICD-9: 782.3 ICD-10: R60.0 11/30/2017 Active Other acute sinusitis ICD- 9: 461.8 ICD-10: J01.80 03/26/2016 Active Other specified hypothyroidism ICD-9: 244.8 ICD-10: E03.8 11/07/2016 Active Acute sinusitis, unspecified ICD-9: 461.9 ICD-10: J01.90 12/06/2014 Active Cough ICD-9: 786.2 ICD-10: R05 03/26/2016 Active Headache ICD-9: 784.0 ICD-10: R51 05/19/2017 Active Acute laryngopharyngitis ICD-9: 465.0 ICD-10: J06.0 04/16/2017 Active Left lower quadrant pain ICD-9: 789.04 ICD-10: R10.32 02/10/2017 Active Other muscle spasm ICD- 9: 728.85 ICD-10: M62.838 02/02/2017 Active Pain in thoracic spine ICD-9: 724.1 ICD-10: M54.6 02/02/2017 Active Epigastric pain ICD-9: 789.06 ICD-10: R10.13 01/27/2017 Active Other acute pancreatitis without necrosis or infection ICD-9: 577.0 ICD-10: K85.80 01/27/2017 Active Type 2 diabetes mellitus without complications ICD-9: 250.00 ICD-10: E11.9 01/27/2017 Active Actinic keratosis ICD-9: 702.0 ICD-10: L57.0 11/07/2016 Active Bilateral primary osteoarthritis of hip ICD-9: 715.95 ICD-10: M16.0 11/07/2016 Active Type 1 diabetes mellitus without complications ICD-9: 250.00 ICD-10: E10.9 11/07/2016 Active Pure hyperglyceridemia ICD-9: 272.1 ICD-10: E78.1 09/06/2014 Active (Idiopathic) normal pressure hydrocephalus ICD-9: 331.5 ICD-10: G91.2 08/06/2014 Active Acute upper respiratory infection, unspecified ICD-9: 465.9 ICD-10: J06.9 06/12/2015 Active Other acute nonsuppurative otitis media, right ear ICD-9: 381.00 ICD-10: H65.191 06/12/2015 Active Allergic rhinitis due to pollen ICD-9: 477.0 ICD-10: J30.1 06/06/2015 Active Dizziness and giddiness ICD-9: 780.4 ICD-10: R42 03/12/2015 Active Nausea with vomiting, unspecified ICD-9: 787.01 ICD-10: R11.2 03/12/2015 Active Allergic rhinitis, unspecified ICD-9: 477.9 ICD-10: J30.9 12/06/2014 Active Hypertriglyceridemia ICD- 9: 272.1 09/06/2014 Active Diabetes Unknown 08/07/2014 Active Hypertension Unknown 08/07/2014 Active Abnormal gait ICD-9: 781.2 08/06/2014 Active DIABETES TYPE II ICD-9: 250.00 08/06/2014 Active ESSENTIAL HYPERTENSION ICD-9: 401.9 08/06/2014 Active NPH (normal pressure hydrocephalus) ICD-9: 331.5 08/06/2014 Active VITAMIN D DEFICIENCY ICD- 9: 268.9 08/06/2014 Active Medications Medication Codes Instructions Start Date Stop Date Status Fill Instructions Levemir FlexTouch U-100 Insulin 100 unit/mL (3 mL) subcutaneous pen RxNorm: 622133 INJECT 40 UNITS SUBCUTANEOUSLY EVERY MORNING AND 35 UNITS EVERY DAY AT BEDTIME. 09/28/2018 No Stop Date Active levothyroxine 125 mcg tablet RxNorm: 323163 TAKE 1 TABLET BY MOUTH ONCE DAILY 08/26/2018 No Stop Date Active levothyroxine 125 mcg tablet RxNorm: 894413 TAKE 1 TABLET BY MOUTH ONCE DAILY 08/11/2018 No Stop Date Active hydrochlorothiazide 25 mg tablet RxNorm: 891246 TAKE 1 TABLET BY MOUTH ONCE DAILY 08/02/2018 No Stop Date Active Levemir FlexTouch U-100 Insulin 100 unit/mL (3 mL) subcutaneous pen RxNorm: 624297 35-40 Unit(s) SQ BID 07/09/2018 07/08/2018 Inactive INCREASE TO 40 UNITS Q AM AND 35 UNTIS Q HS Levemir FlexTouch U-100 Insulin 100 unit/mL (3 mL) subcutaneous pen RxNorm: 651214 35-40 Unit(s) SQ BID 07/09/2018 09/27/2018 Inactive INCREASE TO 40 UNITS Q AM AND 35 UNTIS Q HS doxycycline hyclate 100 mg tablet RxNorm: 2095050 1 Tablet(s) PO BID 07/09/2018 07/18/2018 Inactive venlafaxine ER 150 mg capsule,extended release 24 hr RxNorm: 295623 TAKE 1 CAPSULE BY MOUTH ONCE DAILY 06/08/2018 No Stop Date Active Levemir FlexTouch U-100 Insulin 100 unit/mL (3 mL) subcutaneous pen RxNorm: 913721 30 Unit(s) SQ BID 06/04/2018 07/08/2018 Inactive update RX -increase to 35 units BID if blood sugars over 200 Augmentin 875 mg-125 mg tablet RxNorm: 260106 1 Tablet(s) PO BID 06/04/2018 06/10/2018 Inactive hydrochlorothiazide 25 mg tablet RxNorm: 597539 TAKE 1 TABLET BY MOUTH ONCE DAILY 03/23/2018 08/01/2018 Inactive Levemir FlexTouch U-100 Insulin 100 unit/mL (3 mL) subcutaneous pen RxNorm: 555715 30 Unit(s) SQ QAM and 25 Units SQ QPM 03/18/2018 06/03/2018 Inactive Levemir FlexTouch U-100 Insulin 100 unit/mL (3 mL) subcutaneous pen RxNorm: 757222 Unit(s) 03/11/2018 03/17/2018 Inactive 30 q am and 25 units q PM pravastatin 40 mg tablet RxNorm: 323743 1 Tablet(s) PO daily take with coenzyme q 10 daily 03/03/2018 02/25/2019 Active Levemir FlexTouch U-100 Insulin 100 unit/mL (3 mL) subcutaneous pen RxNorm: 368883 Unit(s) INJECT 25 UNITS SUBCUTANEOUSLY TWICE DAILY 03/03/2018 03/10/2018 Inactive pravastatin 10 mg tablet RxNorm: 627102 1 Tablet(s) PO daily take with coenzyme q 10 daily 02/26/2018 03/02/2018 Inactive prednisone 20 mg tablet RxNorm: 790756 2 Tablet(s) PO daily 02/17/2018 02/21/2018 Inactive levothyroxine 125 mcg tablet RxNorm: 490983 TAKE 1 TABLET BY MOUTH ONCE DAILY 01/11/2018 08/10/2018 Inactive cyclobenzaprine 5 mg tablet RxNorm: 272839 1 Tablet(s) PO TID as needed 12/28/2017 01/11/2018 Inactive Zorvolex 35 mg capsule RxNorm: 7644377 1 Capsule(s) PO TID as needed 12/25/2017 05/23/2018 Inactive Levemir FlexTouch U-100 Insulin 100 unit/mL (3 mL) subcutaneous pen RxNorm: 936360 INJECT 2O UNITS SUBCUTANEOUSLY TWICE DAILY 12/21/2017 03/02/2018 Inactive cyclobenzaprine 5 mg tablet RxNorm: 511099 1 Tablet(s) PO TID as needed 12/21/2017 12/25/2017 Inactive doxycycline hyclate 100 mg capsule RxNorm: 3603671 1 Capsule(s) PO BID 12/21/2017 12/30/2017 Inactive venlafaxine ER 150 mg capsule,extended release 24 hr RxNorm: 019459 TAKE 1 CAPSULE BY MOUTH ONCE DAILY 12/10/2017 06/07/2018 Inactive Singulair 10 mg tablet RxNorm: 003351 1 Tablet(s) PO daily 12/03/2017 12/02/2017 Inactive Singulair 10 mg tablet RxNorm: 532526 1 Tablet(s) PO daily 12/03/2017 01/01/2018 Inactive Zithromax Z-Kulwant 250 mg tablet RxNorm: 686940 1 Tablet(s) PO UD 12/03/2017 03/10/2018 Inactive z pack as directed Kenalog 40 mg/mL suspension for injection RxNorm: 1039811 1 Milliliter(s) Inj 11/30/2017 11/30/2017 Inactive prednisone 20 mg tablet RxNorm: 321408 2 Tablet(s) PO daily 11/30/2017 12/04/2017 Inactive Augmentin 875 mg-125 mg tablet RxNorm: 395537 1 Tablet(s) PO BID 11/27/2017 11/26/2017 Inactive Augmentin 875 mg-125 mg tablet RxNorm: 891373 1 Tablet(s) PO BID 11/27/2017 12/03/2017 Inactive Zorvolex 35 mg capsule RxNorm: 8514243 1 Capsule(s) PO TID as needed 11/09/2017 12/24/2017 Inactive hydrochlorothiazide 25 mg tablet RxNorm: 576634 1 Tablet(s) PO daily 10/22/2017 02/18/2018 Inactive enalapril maleate 5 mg tablet RxNorm: 176915 1 Tablet(s) PO daily TAKE ONE TABLET BY MOUTH ONCE DAILY 08/21/2017 02/16/2018 Inactive Levemir FlexTouch U-100 Insulin 100 unit/mL (3 mL) subcutaneous pen RxNorm: 026106 20 Unit(s) SQ BID 07/30/2017 12/20/2017 Inactive levothyroxine 125 mcg tablet RxNorm: 456018 TAKE ONE TABLET BY MOUTH ONCE DAILY 06/29/2017 01/10/2018 Inactive venlafaxine ER 150 mg capsule,extended release 24 hr RxNorm: 852590 1 Capsule(s) PO daily TAKE ONE CAPSULE BY MOUTH ONCE DAILY 06/08/2017 12/04/2017 Inactive prednisone 20 mg tablet RxNorm: 983230 1 Tablet(s) PO daily 06/02/2017 06/06/2017 Inactive prednisone 20 mg tablet RxNorm: 906143 1 Tablet(s) PO daily 06/01/2017 06/05/2017 Inactive Kenalog 40 mg/mL suspension for injection RxNorm: 1544716 1 Milliliter(s) Inj 05/28/2017 05/28/2017 Inactive cefdinir 300 mg capsule RxNorm: 301575 1 Capsule(s) PO BID 05/28/2017 06/03/2017 Inactive ceftriaxone 500 mg solution for injection RxNorm: 5075118 1 Inj 05/28/2017 05/28/2017 Inactive prednisone 20 mg tablet RxNorm: 508762 1 Tablet(s) PO daily 05/28/2017 05/31/2017 Inactive Keflex 500 mg capsule RxNorm: 926602 1 Capsule(s) PO TID 05/26/2017 06/01/2017 Inactive Keflex 500 mg capsule RxNorm: 529220 1 Capsule(s) PO TID 05/26/2017 05/25/2017 Inactive hydrocodone 10 mg-chlorpheniramine 8 mg/5 mL oral susp extend.rel 12hr RxNorm: 7421734 5-10 Milliliter(s) PO TID as needed 04/16/2017 No Stop Date Active Tussionex Pennkinetic ER 10 mg-8 mg/5 mL suspension,extended release RxNorm: 7128555 5 Milliliter(s) PO BID 04/16/2017 04/27/2017 Inactive Zithromax Z-Kulwant 250 mg tablet RxNorm: 115755 1 Tablet(s) PO UD 03/25/2017 04/15/2017 Inactive z pack as directed enalapril maleate 5 mg tablet RxNorm: 408779 TAKE ONE TABLET BY MOUTH ONCE DAILY 02/26/2017 08/20/2017 Inactive Levemir FlexTouch 100 unit/mL (3 mL) subcutaneous insulin pen RxNorm: 575381 20 Unit(s) SQ BID 02/10/2017 07/11/2017 Inactive Zorvolex 35 mg capsule RxNorm: 1649559 1 Capsule(s) PO TID as needed 02/10/2017 11/08/2017 Inactive valacyclovir 1 gram tablet RxNorm: 297022 1 Tablet(s) PO TID 02/10/2017 02/16/2017 Inactive Levemir FlexTouch 100 unit/mL (3 mL) subcutaneous insulin pen RxNorm: 605979 20 Unit(s) SQ BID 02/04/2017 02/09/2017 Inactive cyclobenzaprine 5 mg tablet RxNorm: 237121 1 Tablet(s) PO qhs x 3 nights and TID as needed muscle spasms 02/02/2017 No Stop Date Active levothyroxine 125 mcg tablet RxNorm: 415275 TAKE ONE TABLET BY MOUTH ONCE DAILY 12/08/2016 06/05/2017 Inactive venlafaxine ER 150 mg capsule,extended release 24 hr RxNorm: 112513 TAKE ONE CAPSULE BY MOUTH ONCE DAILY 12/01/2016 05/29/2017 Inactive Zorvolex 35 mg capsule RxNorm: 7980156 1 Capsule(s) PO TID as needed do not take meloxicam at the same time 11/07/2016 No Stop Date Active enalapril maleate 5 mg tablet RxNorm: 241339 TAKE ONE TABLET BY MOUTH ONCE DAILY 10/31/2016 12/29/2016 Inactive meloxicam 15 mg tablet RxNorm: 071759 TAKE ONE TABLET BY MOUTH ONCE DAILY 10/30/2016 03/10/2018 Inactive meloxicam 15 mg tablet RxNorm: 543073 TAKE ONE TABLET BY MOUTH ONCE DAILY 10/24/2016 10/29/2016 Inactive enalapril maleate 5 mg tablet RxNorm: 686327 TAKE ONE TABLET BY MOUTH ONCE DAILY 10/24/2016 10/30/2016 Inactive venlafaxine ER 150 mg capsule,extended release 24 hr RxNorm: 325160 TAKE ONE CAPSULE BY MOUTH ONCE DAILY 06/16/2016 11/12/2016 Inactive meloxicam 15 mg tablet RxNorm: 621364 TAKE ONE TABLET BY MOUTH ONCE DAILY 06/09/2016 10/06/2016 Inactive enalapril maleate 5 mg tablet RxNorm: 846102 TAKE ONE TABLET BY MOUTH ONCE DAILY 06/02/2016 09/29/2016 Inactive Zithromax Z-Kulwant 250 mg tablet RxNorm: 582866 1 Tablet(s) PO UD 05/21/2016 06/15/2016 Inactive levothyroxine 125 mcg tablet RxNorm: 600109 Tablet(s) TAKE ONE TABLET BY MOUTH ONCE DAILY 04/15/2016 10/11/2016 Inactive Levaquin 500 mg tablet RxNorm: 380486 1 Tablet(s) PO daily 04/03/2016 04/09/2016 Inactive Levaquin 500 mg tablet RxNorm: 415603 1 Tablet(s) PO daily 04/03/2016 04/02/2016 Inactive prednisone 20 mg tablet RxNorm: 439038 2 Tablet(s) PO daily 03/28/2016 04/01/2016 Inactive Zithromax Z-Kulwant 250 mg tablet RxNorm: 761187 1 Tablet(s) PO UD 03/26/2016 03/30/2016 Inactive zpack Kenalog 40 mg/mL suspension for injection RxNorm: 7060183 Milliliter(s) Inj 03/26/2016 03/26/2016 Inactive Zofran ODT 4 mg disintegrating tablet RxNorm: 597716 DISSOLVE ONE TABLET IN MOUTH EVERY 6 HOURS NEEDED 02/22/2016 02/29/2016 Inactive venlafaxine ER 150 mg capsule,extended release 24 hr RxNorm: 568934 TAKE ONE CAPSULE BY MOUTH ONCE DAILY 02/18/2016 06/15/2016 Inactive meloxicam 15 mg tablet RxNorm: 392707 TAKE ONE TABLET BY MOUTH ONCE DAILY 02/04/2016 06/02/2016 Inactive aspirin 81 mg chewable tablet RxNorm: 632156 1 Tablet(s) PO daily 12/13/2015 12/06/2016 Inactive biotin 2,500 mcg tablet RxNorm: 867907 1 Tablet(s) PO daily 12/13/2015 09/07/2016 Inactive hydrochlorothiazide 25 mg tablet RxNorm: 712786 1 Tablet(s) PO daily 12/13/2015 04/10/2016 Inactive enalapril maleate 5 mg tablet RxNorm: 486702 TAKE ONE TABLET BY MOUTH ONCE DAILY 11/22/2015 05/19/2016 Inactive venlafaxine ER 150 mg capsule,extended release 24 hr RxNorm: 844168 TAKE ONE CAPSULE BY MOUTH ONCE DAILY 11/14/2015 02/11/2016 Inactive levothyroxine 125 mcg tablet RxNorm: 868853 Tablet(s) TAKE ONE TABLET BY MOUTH ONCE DAILY 11/06/2015 04/14/2016 Inactive levothyroxine 125 mcg tablet RxNorm: 457249 Tablet(s) TAKE ONE TABLET BY MOUTH ONCE DAILY 08/06/2015 11/03/2015 Inactive meclizine 25 mg tablet RxNorm: 779122 1/2-1 Tablet(s) PO Q6 as needed 07/16/2015 No Stop Date Active Flonase Allergy Relief 50 mcg/actuation nasal spray,suspension RxNorm: 1 [place] NASAL daily 06/13/2015 No Stop Date Active prednisone 20 mg tablet RxNorm: 318177 2 Tablet(s) PO daily 06/13/2015 06/17/2015 Inactive Augmentin 875 mg-125 mg tablet RxNorm: 371427 1 Tablet(s) PO BID 06/13/2015 06/19/2015 Inactive Zithromax Z-Kulwant 250 mg tablet RxNorm: 246438 1 Tablet(s) PO UD 06/07/2015 06/11/2015 Inactive zpack Kenalog 40 mg/mL suspension for injection RxNorm: 3928274 Milliliter(s) Inj 06/07/2015 06/07/2015 Inactive venlafaxine ER 150 mg capsule,extended release 24 hr RxNorm: 131746 TAKE ONE CAPSULE BY MOUTH ONCE DAILY 05/14/2015 11/09/2015 Inactive Augmentin 500 mg-125 mg tablet RxNorm: 702667 1 Tablet(s) PO TID 04/25/2015 05/04/2015 Inactive Augmentin 500 mg-125 mg tablet RxNorm: 333469 1 Tablet(s) PO TID 04/25/2015 04/24/2015 Inactive pravastatin 10 mg tablet RxNorm: 835169 1 Tablet(s) PO daily take with coenzyme q 10 daily 03/21/2015 03/20/2015 Inactive DC crestor pravastatin 10 mg tablet RxNorm: 064625 1 Tablet(s) PO daily take with coenzyme q 10 daily 03/21/2015 07/18/2015 Inactive DC crestor Zofran ODT 4 mg disintegrating tablet RxNorm: 597176 1 Tablet(s) PO Q6 PRN 03/13/2015 02/21/2016 Inactive levothyroxine 125 mcg tablet RxNorm: 140382 TAKE ONE TABLET BY MOUTH ONCE DAILY 02/13/2015 08/05/2015 Inactive meloxicam 15 mg tablet RxNorm: 963240 1 Tablet(s) PO daily 01/28/2015 01/22/2016 Inactive Zofran 4 mg tablet RxNorm: 630643 1 Tablet(s) PO Q6-8H as needed nausea 01/24/2015 No Stop Date Active Trulicity 1.5 mg/0.5 mL subcutaneous pen injector RxNorm: 8763889 0.75mg Milliliter(s) SQ QW 01/10/2015 03/10/2018 Inactive venlafaxine ER 150 mg capsule,extended release 24 hr RxNorm: 964190 1 Capsule(s) PO daily 01/10/2015 05/09/2015 Inactive enalapril maleate 5 mg tablet RxNorm: 076281 1 Tablet(s) PO daily 01/04/2015 07/02/2015 Inactive amoxicillin 500 mg tablet RxNorm: 755206 1 Tablet(s) PO BID 12/07/2014 12/06/2014 Inactive Probiotic & Acidophilus 300 million cell-250 mg capsule RxNorm: 1 Capsule(s) PO BID 12/07/2014 12/16/2014 Inactive amoxicillin 500 mg tablet RxNorm: 961486 1 Tablet(s) PO BID 12/07/2014 12/16/2014 Inactive Kenalog 40 mg/mL suspension for injection RxNorm: 9097249 1 Milliliter(s) Inj 12/07/2014 12/07/2014 Inactive meloxicam 15 mg tablet RxNorm: 732691 1 Tablet(s) PO daily 10/24/2014 10/23/2014 Inactive meloxicam 15 mg tablet RxNorm: 277923 1 Tablet(s) PO daily 10/24/2014 01/27/2015 Inactive azithromycin 500 mg tablet RxNorm: 014863 1 Tablet(s) PO daily 10/11/2014 10/15/2014 Inactive azithromycin 500 mg tablet RxNorm: 487388 1 Tablet(s) PO daily 10/11/2014 10/10/2014 Inactive levothyroxine 125 mcg tablet RxNorm: 619206 1 Tablet(s) PO daily 10/06/2014 02/02/2015 Inactive enalapril maleate 5 mg tablet RxNorm: 132408 1 Tablet(s) PO daily 08/29/2014 12/26/2014 Inactive enalapril maleate 5 mg tablet RxNorm: 265453 1 Tablet(s) PO daily 08/25/2014 08/28/2014 Inactive Medroxy oral RxNorm: 0905166 oral No Start Date Active Vitamin D3 5,000 unit tablet RxNorm: 921315 1 Tablet(s) PO daily No Start Date Active fluconazole 200 mg tablet RxNorm: 072121 Tablet(s) PO No Start Date Active estradiol 2 mg tablet RxNorm: 080295 1 Tablet(s) PO daily No Start Date Active fenofibrate nanocrystallized 145 mg tablet RxNorm: 385729 1 Tablet(s) PO daily No Start Date Active hydrocodone 5 mg-acetaminophen 325 mg tablet RxNorm: 845418 1-2 Tablet(s) PO Q4-6H as needed No Start Date Active enalapril maleate 5 mg tablet RxNorm: 457847 1 Tablet(s) PO daily No Start Date 08/24/2014 Inactive glimepiride 4 mg tablet RxNorm: 674886 1 Tablet(s) PO daily No Start Date 01/26/2017 Inactive meclizine 25 mg tablet RxNorm: 050707 1/2-1 Tablet(s) PO Q6 as needed No Start Date 07/15/2015 Inactive Trulicity 0.75 mg/0.5 mL subcutaneous pen injector RxNorm: 9207064 0.75mg Milliliter(s) SQ QW No Start Date 01/09/2015 Inactive metformin 1,000 mg tablet RxNorm: 387290 Tablet(s) PO BID No Start Date 01/26/2017 Inactive venlafaxine ER 150 mg capsule,extended release 24 hr RxNorm: 170170 1 Capsule(s) PO daily No Start Date 01/09/2015 Inactive meloxicam 15 mg tablet RxNorm: 971189 1 Tablet(s) PO daily No Start Date 10/23/2014 Inactive levothyroxine 125 mcg tablet RxNorm: 897859 1 Tablet(s) PO daily No Start Date 10/05/2014 Inactive Levemir FlexTouch 100 unit/mL (3 mL) subcutaneous insulin pen RxNorm: 516130 15 Unit(s) SQ daily No Start Date 02/03/2017 Inactive Zithromax Z-Kulwant 250 mg tablet RxNorm: 995314 1 Tablet(s) PO UD No Start Date 05/20/2016 Inactive Fish Oil 1,000 mg capsule RxNorm: 1 Capsule(s) PO BID No Start Date 11/04/2016 Inactive Zofran 4 mg tablet RxNorm: 237009 1 Tablet(s) PO Q6-8H as needed nausea No Start Date 01/23/2015 Inactive Crestor 10 mg tablet RxNorm: 719717 1 Tablet(s) PO daily No Start Date 03/20/2015 Inactive Medication Administered Medication Codes Instructions Start Date Status Kenalog 40 mg/mL suspension for injection RxNorm: 0591114 1Milliliter 11/30/2017 No longer Active Kenalog 40 mg/mL suspension for injection RxNorm: 0843086 1Milliliter 05/28/2017 No longer Active ceftriaxone 500 mg solution for injection RxNorm: 3101962 1 05/28/2017 No longer Active Kenalog 40 mg/mL suspension for injection RxNorm: 0262966 Milliliter 03/26/2016 No longer Active Kenalog 40 mg/mL suspension for injection RxNorm: 2101711 Milliliter 06/07/2015 No longer Active Kenalog 40 mg/mL suspension for injection RxNorm: 9930951 1Milliliter 12/07/2014 No longer Active Immunizations Vaccine Codes Date Status Influenza CVX: 141 11/26/2017 completed Assessments Condition Codes Effective Dates Type 2 diabetes mellitus with hyperglycemia ICD-10: E11.65 ICD-9: 250.00 09/17/2018 Essential (primary) hypertension ICD-10: I10 ICD-9: 401.9 09/17/2018 Acute recurrent maxillary sinusitis ICD-10: J01.01 ICD-9: 461.0 07/09/2018 Other allergic rhinitis ICD-10: J30.89 ICD-9: 477.8 06/04/2018 Mixed hyperlipidemia ICD-10: E78.2 ICD-9: 272.2 06/04/2018 Paresthesia of skin ICD-10: R20.2 ICD-9: 782.0 02/17/2018 Rash and other nonspecific skin eruption ICD-10: R21 ICD-9: 782.1 12/21/2017 Pain in right shoulder ICD-10: M25.511 ICD-9: 719.41 12/21/2017 Localized edema ICD-10: R60.0 ICD-9: 782.3 11/30/2017 Other acute sinusitis ICD-10: J01.80 ICD-9: 461.8 11/30/2017 Cough ICD-10: R05 ICD-9: 786.2 05/28/2017 Headache ICD-10: R51 ICD-9: 784.0 05/19/2017 Acute laryngopharyngitis ICD-10: J06.0 ICD-9: 465.0 04/16/2017 Left lower quadrant pain ICD-10: R10.32 ICD-9: 789.04 02/10/2017 Pain in thoracic spine ICD-10: M54.6 ICD-9: 724.1 02/02/2017 Other muscle spasm ICD-10: M62.838 ICD-9: 728.85 02/02/2017 Type 2 diabetes mellitus without complications ICD-10: E11.9 ICD-9: 250.00 01/27/2017 Other acute pancreatitis without necrosis or infection ICD-10: K85.80 ICD-9: 577.0 01/27/2017 Epigastric pain ICD-10: R10.13 ICD-9: 789.06 01/27/2017 Other specified hypothyroidism ICD-10: E03.8 ICD-9: 244.8 11/07/2016 Actinic keratosis ICD-10: L57.0 ICD-9: 702.0 11/07/2016 Bilateral primary osteoarthritis of hip ICD-10: M16.0 ICD-9: 715.95 11/07/2016 Type 1 diabetes mellitus without complications ICD-10: E10.9 ICD-9: 250.00 11/07/2016 Pure hyperglyceridemia ICD-10: E78.1 ICD-9: 272.1 12/13/2015 (Idiopathic) normal pressure hydrocephalus ICD-10: G91.2 ICD-9: 331.5 08/15/2015 Acute upper respiratory infection, unspecified ICD-10: J06.9 ICD-9: 465.9 06/13/2015 Other acute nonsuppurative otitis media, right ear ICD-10: H65.191 ICD-9: 381.00 06/13/2015 Allergic rhinitis due to pollen ICD-10: J30.1 ICD-9: 477.0 06/07/2015 Dizziness and giddiness ICD-10: R42 ICD-9: 780.4 03/13/2015 Nausea with vomiting, unspecified ICD-10: R11.2 ICD-9: 787.01 03/13/2015 Allergic rhinitis, unspecified ICD-10: J30.9 ICD-9: 477.9 12/07/2014 Acute sinusitis, unspecified ICD-10: J01.90 ICD-9: 461.9 12/07/2014 NPH (normal pressure hydrocephalus) ICD-9: 331.5 09/07/2014 ESSENTIAL HYPERTENSION ICD-9: 401.9 09/07/2014 Hypertriglyceridemia ICD-9: 272.1 09/07/2014 DIABETES TYPE II ICD-9: 250.00 09/07/2014 VITAMIN D DEFICIENCY ICD-9: 268.9 08/07/2014 Abnormal gait ICD-9: 781.2 08/07/2014 Reason For Visit Reason For Visit Effective Dates Notes diabetes mellitus 09/17/2018 diabetes mellitus 07/09/2018 diabetes mellitus 06/04/2018 hyperlipidemia 03/11/2018 hand pain 02/17/2018 shoulder pain 12/21/2017 sinus congestion 11/30/2017 sinus congestion 05/28/2017 headache 05/19/2017 cough 04/16/2017 flank pain 02/10/2017 back pain 02/02/2017 Hospital Follow Up 01/27/2017 hypertension 11/07/2016 cough 03/26/2016 hypertension 12/13/2015 Hospital Follow Up 08/15/2015 cough 06/13/2015 earache 06/07/2015 hypertension 03/13/2015 with nausea and vomiting headache 12/07/2014 headache 09/07/2014 headache 08/07/2014 Results Observation Observation Code Item Item Code Result Date CHEM 14 [id number] AST TNP:Lab Request 01/27/2017 CHEM 14 [id number] ALT TNP:Lab Request 01/27/2017 CHEM 14 [id number] BUN TNP:Lab Request 01/27/2017 CHEM 14 [id number] ALBUMIN TNP:Lab Request 01/27/2017 CHEM 14 [id number] CHLORIDE TNP:Lab Request 01/27/2017 CHEM 14 [id number] Bili Total TNP:Lab Request 01/27/2017 CHEM 14 [id number] ALK PHOS TNP:Lab Request 01/27/2017 CHEM 14 [id number] SODIUM TNP:Lab Request 01/27/2017 CHEM 14 [id number] CREATININE TNP:Lab Request 01/27/2017 CHEM 14 [id number] CALCIUM TNP:Lab Request 01/27/2017 CHEM 14 [id number] POTASSIUM TNP:Lab Request 01/27/2017 CHEM 14 [id number] TOTAL PROTEIN TNP:Lab Request 01/27/2017 CHEM 14 [id number] GLUCOSE TNP:Lab Request 01/27/2017 CHEM 14 [id number] Bicarbonate TNP:Lab Request 01/27/2017 CHEM 14 [id number] AGAP TNP:Lab Request 01/27/2017 AMYLASE [id number] Amylase Lvl TNP:Lab Request 01/27/2017 LIPID GRP [id number] CHOLESTEROL 273 mg/dL 2016 LIPID GRP Triglyceride 583 mg/dL 2016 LIPID GRP HDL CHOLESTEROL 48 mg/dL 2016 LIPID GRP [id number] Chol/HDL Ratio 5.69 ratio 2016 LIPID GRP [id number] NON-HDL Chol 225 mg/dL 2016 LIPID GRP LDL Cholesterol N/A Trig >400 2016 A1C HPLC [id number] Hgb A1c 31234-9 7.3 % 2016 TSH [id number] TSH 1.340 uIU/mL 2016 FREE T4 [id number] T4 Free 1.60 ng/dL 2016 MEAN GLUC [id number] Calc Mean Gluc 163 mg/dL 2016 GFR CALC [id number] GFR Non Afr Amr >60 mL/min 2016 GFR CALC [id number] GFR Afr Amr >60 mL/min 2016 CBC [id number] WBC 8.1 10e9/L 2016 CBC [id number] RBC 4.41 10e12/L 2016 CBC [id number] HEMOGLOBIN 13.2 g/dL 2016 CBC [id number] HEMATOCRIT 39.6 % 2016 CBC [id number] MCV 89.8 fL 2016 CBC [id number] MCH 29.9 pg 2016 CBC [id number] MCHC 33.3 g/dL 2016 CBC [id number] PLATELET COUNT 298 10e9/L 2016 CBC [id number] Mean Plt Volume 10.5 fL 2016 CBC [id number] Neut Auto 61.3 % 2016 CBC [id number] Lymph Auto 26.3 % 2016 CBC [id number] [place] Auto 7.7 % 2016 CBC [id number] RDW 13.6 % 2016 CBC [id number] Eos Auto 4.2 % 2016 CBC [id number] Baso Auto 0.5 % 2016 CBC [id number] Neutrophil Abs 4.97 10e9/L 2016 CBC [id number] Lymphocyte Abs 2.13 10e9/L 2016 CBC [id number] Monocyte Abs 0.62 10e9/L 2016 CBC [id number] Eosinophil Abs 0.34 10e9/L 2016 CBC [id number] RDW-SD 44.1 fL 2016 CBC [id number] Basophil Abs 0.04 10e9/L 2016 CHEM 14 [id number] AST 19 U/L 2016 CHEM 14 [id number] ALT 26 U/L 2016 CHEM 14 [id number] BUN 20 mg/dL 2016 CHEM 14 [id number] ALBUMIN 4.1 g/dL 2016 CHEM 14 [id number] CHLORIDE 99 mmol/L 2016 CHEM 14 [id number] Bili Total 0.3 mg/dL 2016 CHEM 14 [id number] ALK PHOS 55 U/L 2016 CHEM 14 [id number] SODIUM 135 mmol/L 2016 CHEM 14 [id number] CREATININE 0.87 mg/dL 2016 CHEM 14 [id number] CALCIUM 9.3 mg/dL 2016 CHEM 14 [id number] POTASSIUM 4.0 mmol/L 2016 CHEM 14 [id number] TOTAL PROTEIN 7.0 g/dL 2016 CHEM 14 [id number] GLUCOSE 149 mg/dL 2016 CHEM 14 [id number] Bicarbonate 26 mmol/L 2016 CHEM 14 [id number] AGAP 10 mmol/L 2016 Review of Systems System Result Effective Dates Constitutional No recent illness 09/17/2018 Constitutional No anorexia 09/17/2018 Constitutional No night sweats 09/17/2018 Constitutional No chills 09/17/2018 Constitutional No diaphoresis 09/17/2018 Constitutional No fatigue 09/17/2018 Constitutional No fever 09/17/2018 Constitutional No insomnia 09/17/2018 Constitutional No malaise 09/17/2018 Constitutional No weight loss 09/17/2018 Constitutional No weight gain 09/17/2018 Eyes No blindness 09/17/2018 Eyes No vision change 09/17/2018 Cardiovascular No chest pain/pressure 09/17/2018 Cardiovascular No dyspnea 09/17/2018 Respiratory No chest congestion 09/17/2018 Respiratory No chest tightness 09/17/2018 Respiratory No cigarette smoking 09/17/2018 Respiratory No cough 09/17/2018 Respiratory No dyspnea on exertion 09/17/2018 Respiratory No dyspnea 09/17/2018 Respiratory passive smoking 09/17/2018 Gastrointestinal No constipation 09/17/2018 Gastrointestinal No diarrhea 09/17/2018 Genitourinary/Nephrology No dysuria 09/17/2018 Genitourinary/Nephrology No nocturia 09/17/2018 Genitourinary/Nephrology No urinary urgency 09/17/2018 Genitourinary/Nephrology No urinary frequency 09/17/2018 Musculoskeletal No back pain 09/17/2018 Musculoskeletal No muscle weakness 09/17/2018 Musculoskeletal No myalgias 09/17/2018 Dermatologic No rash 09/17/2018 Dermatologic No sores 09/17/2018 Neurologic No alteration of consciousness 09/17/2018 Neurologic No mental status change 09/17/2018 Psychiatric depression 09/17/2018 Psychiatric anxiety 09/17/2018 Constitutional recent illness 07/09/2018 Constitutional No anorexia 07/09/2018 Constitutional No night sweats 07/09/2018 Constitutional chills 07/09/2018 Constitutional diaphoresis 07/09/2018 Constitutional fatigue 07/09/2018 Constitutional fever 07/09/2018 Constitutional No insomnia 07/09/2018 Constitutional No malaise 07/09/2018 Constitutional No weight loss 07/09/2018 Constitutional No weight gain 07/09/2018 Eyes No blindness 07/09/2018 Eyes No vision change 07/09/2018 Cardiovascular No chest pain/pressure 07/09/2018 Cardiovascular No dyspnea 07/09/2018 Respiratory No chest congestion 07/09/2018 Respiratory No chest tightness 07/09/2018 Respiratory No cigarette smoking 07/09/2018 Respiratory No cough 07/09/2018 Respiratory No dyspnea on exertion 07/09/2018 Respiratory No dyspnea 07/09/2018 Respiratory passive smoking 07/09/2018 Gastrointestinal No constipation 07/09/2018 Gastrointestinal No diarrhea 07/09/2018 Genitourinary/Nephrology No dysuria 07/09/2018 Genitourinary/Nephrology No nocturia 07/09/2018 Genitourinary/Nephrology No urinary urgency 07/09/2018 Genitourinary/Nephrology No urinary frequency 07/09/2018 Musculoskeletal No back pain 07/09/2018 Musculoskeletal No muscle weakness 07/09/2018 Musculoskeletal No myalgias 07/09/2018 Dermatologic No rash 07/09/2018 Dermatologic No sores 07/09/2018 Neurologic No alteration of consciousness 07/09/2018 Neurologic No mental status change 07/09/2018 Neurologic paresthesia 07/09/2018 Psychiatric anxiety 07/09/2018 Psychiatric depression 07/09/2018 Ears/Nose/Throat/Neck headache 07/09/2018 Constitutional recent illness 06/04/2018 Constitutional No anorexia 06/04/2018 Constitutional No night sweats 06/04/2018 Constitutional No chills 06/04/2018 Constitutional No diaphoresis 06/04/2018 Constitutional No fatigue 06/04/2018 Constitutional No fever 06/04/2018 Constitutional No insomnia 06/04/2018 Constitutional No malaise 06/04/2018 Constitutional No weight loss 06/04/2018 Constitutional No weight gain 06/04/2018 Eyes No blindness 06/04/2018 Eyes No vision change 06/04/2018 Cardiovascular No chest pain/pressure 06/04/2018 Cardiovascular No dyspnea 06/04/2018 Respiratory No chest congestion 06/04/2018 Respiratory No chest tightness 06/04/2018 Respiratory No cigarette smoking 06/04/2018 Respiratory No cough 06/04/2018 Respiratory No dyspnea on exertion 06/04/2018 Respiratory No dyspnea 06/04/2018 Respiratory passive smoking 06/04/2018 Gastrointestinal No constipation 06/04/2018 Gastrointestinal No diarrhea 06/04/2018 Genitourinary/Nephrology No dysuria 06/04/2018 Genitourinary/Nephrology No nocturia 06/04/2018 Genitourinary/Nephrology No urinary urgency 06/04/2018 Genitourinary/Nephrology No urinary frequency 06/04/2018 Musculoskeletal No muscle weakness 06/04/2018 Musculoskeletal No myalgias 06/04/2018 Dermatologic No rash 06/04/2018 Dermatologic No sores 06/04/2018 Neurologic No alteration of consciousness 06/04/2018 Neurologic No mental status change 06/04/2018 Neurologic paresthesia 06/04/2018 Psychiatric anxiety 06/04/2018 Psychiatric depression 06/04/2018 Musculoskeletal No back pain 06/04/2018 Constitutional No recent illness 03/11/2018 Constitutional No chills 03/11/2018 Constitutional No fever 03/11/2018 Eyes No blindness 03/11/2018 Ears/Nose/Throat/Neck No nasal discharge 03/11/2018 Cardiovascular No chest pain/pressure 03/11/2018 Cardiovascular No dyspnea 03/11/2018 Respiratory No cough 03/11/2018 Respiratory No dyspnea 03/11/2018 Musculoskeletal back pain 03/11/2018 Neurologic No alteration of consciousness 03/11/2018 Neurologic No mental status change 03/11/2018 Neurologic paresthesia 03/11/2018 Constitutional No anorexia 03/11/2018 Constitutional No night sweats 03/11/2018 Constitutional No diaphoresis 03/11/2018 Constitutional No fatigue 03/11/2018 Constitutional No insomnia 03/11/2018 Constitutional No malaise 03/11/2018 Eyes No vision change 03/11/2018 Ears/Nose/Throat/Neck No dental pain 03/11/2018 Ears/Nose/Throat/Neck No headache 03/11/2018 Ears/Nose/Throat/Neck No nasal allergies 03/11/2018 Ears/Nose/Throat/Neck No sore throat 03/11/2018 Ears/Nose/Throat/Neck No snoring 03/11/2018 Respiratory No chest congestion 03/11/2018 Respiratory No chest tightness 03/11/2018 Respiratory No cigarette smoking 03/11/2018 Respiratory No dyspnea on exertion 03/11/2018 Respiratory passive smoking 03/11/2018 Gastrointestinal No constipation 03/11/2018 Gastrointestinal No diarrhea 03/11/2018 Genitourinary/Nephrology No dysuria 03/11/2018 Genitourinary/Nephrology No nocturia 03/11/2018 Genitourinary/Nephrology No urinary urgency 03/11/2018 Genitourinary/Nephrology No urinary frequency 03/11/2018 Musculoskeletal joint complaint 03/11/2018 Musculoskeletal No muscle weakness 03/11/2018 Musculoskeletal No myalgias 03/11/2018 Dermatologic No rash 03/11/2018 Dermatologic No sores 03/11/2018 Psychiatric anxiety 03/11/2018 Psychiatric depression 03/11/2018 Constitutional No weight loss 03/11/2018 Constitutional No weight gain 03/11/2018 Constitutional No recent illness 02/17/2018 Constitutional No chills 02/17/2018 Constitutional No fever 02/17/2018 Eyes No eye erythema 02/17/2018 Ears/Nose/Throat/Neck No nasal discharge 02/17/2018 Cardiovascular No chest pain/pressure 02/17/2018 Cardiovascular No dyspnea 02/17/2018 Respiratory No cough 02/17/2018 Respiratory No dyspnea 02/17/2018 Neurologic No alteration of consciousness 02/17/2018 Neurologic No mental status change 02/17/2018 Musculoskeletal back pain 02/17/2018 Neurologic paresthesia 02/17/2018 Constitutional No recent illness 12/21/2017 Constitutional No chills 12/21/2017 Constitutional No diaphoresis 12/21/2017 Constitutional No fever 12/21/2017 Eyes No eye erythema 12/21/2017 Ears/Nose/Throat/Neck No nasal discharge 12/21/2017 Cardiovascular No chest pain/pressure 12/21/2017 Cardiovascular No dyspnea 12/21/2017 Respiratory No cough 12/21/2017 Gastrointestinal No abdominal pain 12/21/2017 Musculoskeletal joint complaint 12/21/2017 Dermatologic rash 12/21/2017 Neurologic No alteration of consciousness 12/21/2017 Neurologic No mental status change 12/21/2017 Constitutional recent illness 11/30/2017 Constitutional No chills 11/30/2017 Constitutional No diaphoresis 11/30/2017 Constitutional No fever 11/30/2017 Eyes No eye erythema 11/30/2017 Ears/Nose/Throat/Neck nasal allergies 11/30/2017 Ears/Nose/Throat/Neck nasal discharge 11/30/2017 Ears/Nose/Throat/Neck postnasal drip 11/30/2017 Ears/Nose/Throat/Neck sinus congestion 11/30/2017 Ears/Nose/Throat/Neck No sore throat 11/30/2017 Cardiovascular No chest pain/pressure 11/30/2017 Cardiovascular No dyspnea 11/30/2017 Respiratory No chest congestion 11/30/2017 Respiratory cough 11/30/2017 Respiratory No dyspnea 11/30/2017 Gastrointestinal No abdominal pain 11/30/2017 Gastrointestinal No constipation 11/30/2017 Gastrointestinal No diarrhea 11/30/2017 Gastrointestinal No nausea 11/30/2017 Gastrointestinal No vomiting 11/30/2017 Dermatologic No rash 11/30/2017 Neurologic No alteration of consciousness 11/30/2017 Neurologic No mental status change 11/30/2017 Ears/Nose/Throat/Neck headache 11/30/2017 Cardiovascular edema 11/30/2017 Constitutional recent illness 05/28/2017 Constitutional No chills 05/28/2017 Constitutional No diaphoresis 05/28/2017 Constitutional No fever 05/28/2017 Eyes No blindness 05/28/2017 Ears/Nose/Throat/Neck No nasal allergies 05/28/2017 Ears/Nose/Throat/Neck No nasal discharge 05/28/2017 Cardiovascular No chest pain/pressure 05/28/2017 Cardiovascular No dyspnea 05/28/2017 Cardiovascular No fatigue 05/28/2017 Respiratory No cough 05/28/2017 Respiratory No dyspnea 05/28/2017 Gastrointestinal No abdominal pain 05/28/2017 Gastrointestinal No constipation 05/28/2017 Gastrointestinal No diarrhea 05/28/2017 Gastrointestinal No nausea 05/28/2017 Gastrointestinal No vomiting 05/28/2017 Musculoskeletal arthralgia(s) 05/28/2017 Musculoskeletal joint complaint 05/28/2017 Dermatologic No rash 05/28/2017 Dermatologic actinic keratosis 05/28/2017 Neurologic No alteration of consciousness 05/28/2017 Neurologic No mental status change 05/28/2017 Ears/Nose/Throat/Neck dizziness 05/28/2017 Ears/Nose/Throat/Neck sinus congestion 05/28/2017 Constitutional recent illness 04/16/2017 Constitutional No anorexia 04/16/2017 Constitutional night sweats 04/16/2017 Constitutional chills 04/16/2017 Constitutional diaphoresis 04/16/2017 Constitutional No fatigue 04/16/2017 Constitutional No fever 04/16/2017 Constitutional No insomnia 04/16/2017 Constitutional No malaise 04/16/2017 Eyes No eye discharge 04/16/2017 Eyes No eye erythema 04/16/2017 Ears/Nose/Throat/Neck dizziness 04/16/2017 Ears/Nose/Throat/Neck No headache 04/16/2017 Ears/Nose/Throat/Neck nasal allergies 04/16/2017 Ears/Nose/Throat/Neck nasal discharge 04/16/2017 Ears/Nose/Throat/Neck otalgia 04/16/2017 Ears/Nose/Throat/Neck sinus congestion 04/16/2017 Ears/Nose/Throat/Neck No sore throat 04/16/2017 Cardiovascular No chest pain/pressure 04/16/2017 Cardiovascular No dyspnea 04/16/2017 Respiratory No productive sputum 04/16/2017 Respiratory No chest congestion 04/16/2017 Respiratory cough 04/16/2017 Gastrointestinal No abdominal pain 04/16/2017 Gastrointestinal No constipation 04/16/2017 Gastrointestinal No diarrhea 04/16/2017 Genitourinary/Nephrology No dysuria 04/16/2017 Musculoskeletal No joint complaint 04/16/2017 Dermatologic No rash 04/16/2017 Neurologic No alteration of consciousness 04/16/2017 Constitutional No recent illness 02/10/2017 Constitutional No chills 02/10/2017 Constitutional No diaphoresis 02/10/2017 Constitutional No fever 02/10/2017 Eyes No eye erythema 02/10/2017 Ears/Nose/Throat/Neck No nasal discharge 02/10/2017 Ears/Nose/Throat/Neck No nasal allergies 02/10/2017 Cardiovascular No chest pain/pressure 02/10/2017 Respiratory No chest congestion 02/10/2017 Respiratory No cough 02/10/2017 Gastrointestinal abdominal pain 02/10/2017 Gastrointestinal No constipation 02/10/2017 Gastrointestinal No diarrhea 02/10/2017 Gastrointestinal No hematochezia 02/10/2017 Gastrointestinal No melena 02/10/2017 Gastrointestinal No nausea 02/10/2017 Gastrointestinal No vomiting 02/10/2017 Gastrointestinal No gastroesophageal reflux 02/10/2017 Genitourinary/Nephrology No dysuria 02/10/2017 Genitourinary/Nephrology flank pain 02/10/2017 Genitourinary/Nephrology No hematuria 02/10/2017 Genitourinary/Nephrology No urinary frequency 02/10/2017 Genitourinary/Nephrology No urinary retention/hesitancy 02/10/2017 Musculoskeletal No joint complaint 02/10/2017 Dermatologic No rash 02/10/2017 Neurologic No alteration of consciousness 02/10/2017 Neurologic No mental status change 02/10/2017 Constitutional recent illness 02/02/2017 Constitutional No chills 02/02/2017 Constitutional No fatigue 02/02/2017 Constitutional No fever 02/02/2017 Constitutional No insomnia 02/02/2017 Constitutional malaise 02/02/2017 Ears/Nose/Throat/Neck dizziness 02/02/2017 Ears/Nose/Throat/Neck No dysphagia 02/02/2017 Ears/Nose/Throat/Neck headache 02/02/2017 Ears/Nose/Throat/Neck No hearing loss 02/02/2017 Ears/Nose/Throat/Neck No nasal allergies 02/02/2017 Ears/Nose/Throat/Neck No sore throat 02/02/2017 Ears/Nose/Throat/Neck No postnasal drip 02/02/2017 Ears/Nose/Throat/Neck No sinus congestion 02/02/2017 Cardiovascular No chest pain/pressure 02/02/2017 Cardiovascular No dyspnea 02/02/2017 Cardiovascular No edema 02/02/2017 Cardiovascular No exercise intolerance 02/02/2017 Cardiovascular No fatigue 02/02/2017 Cardiovascular near-syncope/dizziness 02/02/2017 Respiratory No chest tightness 02/02/2017 Respiratory No cough 02/02/2017 Respiratory No dyspnea 02/02/2017 Respiratory No pedal edema 02/02/2017 Gastrointestinal abdominal pain 02/02/2017 Gastrointestinal No constipation 02/02/2017 Gastrointestinal No diarrhea 02/02/2017 Gastrointestinal No gastroesophageal reflux 02/02/2017 Musculoskeletal No stiffness 02/02/2017 Musculoskeletal No swelling 02/02/2017 Musculoskeletal muscle weakness 02/02/2017 Musculoskeletal No myalgias 02/02/2017 Dermatologic No rash 02/02/2017 Dermatologic No sores 02/02/2017 Psychiatric No anxiety 02/02/2017 Psychiatric No depression 02/02/2017 Musculoskeletal back pain 02/02/2017 Constitutional recent illness 01/27/2017 Constitutional No chills 01/27/2017 Constitutional No diaphoresis 01/27/2017 Constitutional No fever 01/27/2017 Eyes No blindness 01/27/2017 Ears/Nose/Throat/Neck No nasal allergies 01/27/2017 Ears/Nose/Throat/Neck No nasal discharge 01/27/2017 Cardiovascular No chest pain/pressure 01/27/2017 Cardiovascular No dyspnea 01/27/2017 Cardiovascular No fatigue 01/27/2017 Respiratory No cough 01/27/2017 Respiratory No dyspnea 01/27/2017 Gastrointestinal abdominal pain 01/27/2017 Gastrointestinal No constipation 01/27/2017 Gastrointestinal No diarrhea 01/27/2017 Gastrointestinal No nausea 01/27/2017 Gastrointestinal No vomiting 01/27/2017 Musculoskeletal arthralgia(s) 01/27/2017 Musculoskeletal joint complaint 01/27/2017 Dermatologic No rash 01/27/2017 Dermatologic actinic keratosis 01/27/2017 Neurologic No alteration of consciousness 01/27/2017 Neurologic No mental status change 01/27/2017 Constitutional fatigue 01/27/2017 Constitutional malaise 01/27/2017 Constitutional No recent illness 11/07/2016 Constitutional No chills 11/07/2016 Constitutional No diaphoresis 11/07/2016 Constitutional No fever 11/07/2016 Eyes No eye erythema 11/07/2016 Ears/Nose/Throat/Neck No nasal discharge 11/07/2016 Ears/Nose/Throat/Neck No nasal allergies 11/07/2016 Cardiovascular No chest pain/pressure 11/07/2016 Cardiovascular No dyspnea 11/07/2016 Cardiovascular No fatigue 11/07/2016 Respiratory No cough 11/07/2016 Respiratory No dyspnea 11/07/2016 Gastrointestinal No abdominal pain 11/07/2016 Gastrointestinal No constipation 11/07/2016 Gastrointestinal No diarrhea 11/07/2016 Gastrointestinal No vomiting 11/07/2016 Gastrointestinal No nausea 11/07/2016 Musculoskeletal joint complaint 11/07/2016 Musculoskeletal arthralgia(s) 11/07/2016 Dermatologic No rash 11/07/2016 Dermatologic actinic keratosis 11/07/2016 Neurologic No alteration of consciousness 11/07/2016 Neurologic No mental status change 11/07/2016 Constitutional recent illness 03/26/2016 Constitutional No chills 03/26/2016 Constitutional No diaphoresis 03/26/2016 Constitutional No fever 03/26/2016 Eyes No eye erythema 03/26/2016 Ears/Nose/Throat/Neck nasal allergies 03/26/2016 Ears/Nose/Throat/Neck nasal discharge 03/26/2016 Ears/Nose/Throat/Neck postnasal drip 03/26/2016 Ears/Nose/Throat/Neck sinus congestion 03/26/2016 Ears/Nose/Throat/Neck No sore throat 03/26/2016 Cardiovascular No chest pain/pressure 03/26/2016 Cardiovascular No dyspnea 03/26/2016 Respiratory cough 03/26/2016 Respiratory No dyspnea 03/26/2016 Gastrointestinal No abdominal pain 03/26/2016 Gastrointestinal No constipation 03/26/2016 Gastrointestinal No diarrhea 03/26/2016 Gastrointestinal No nausea 03/26/2016 Gastrointestinal No vomiting 03/26/2016 Dermatologic No rash 03/26/2016 Neurologic No alteration of consciousness 03/26/2016 Neurologic No mental status change 03/26/2016 Respiratory productive sputum 03/26/2016 Constitutional No recent illness 12/13/2015 Constitutional No anorexia 12/13/2015 Constitutional No night sweats 12/13/2015 Constitutional No chills 12/13/2015 Constitutional No diaphoresis 12/13/2015 Constitutional No fatigue 12/13/2015 Constitutional No fever 12/13/2015 Constitutional No insomnia 12/13/2015 Constitutional No malaise 12/13/2015 Eyes No vision change 12/13/2015 Ears/Nose/Throat/Neck No dental pain 12/13/2015 Ears/Nose/Throat/Neck No headache 12/13/2015 Ears/Nose/Throat/Neck No nasal allergies 12/13/2015 Ears/Nose/Throat/Neck No nasal discharge 12/13/2015 Ears/Nose/Throat/Neck No sore throat 12/13/2015 Ears/Nose/Throat/Neck No snoring 12/13/2015 Cardiovascular No chest pain/pressure 12/13/2015 Respiratory No chest congestion 12/13/2015 Respiratory No chest tightness 12/13/2015 Respiratory No cigarette smoking 12/13/2015 Respiratory No cough 12/13/2015 Respiratory No dyspnea on exertion 12/13/2015 Respiratory No dyspnea 12/13/2015 Respiratory passive smoking 12/13/2015 Gastrointestinal No constipation 12/13/2015 Gastrointestinal No diarrhea 12/13/2015 Genitourinary/Nephrology No dysuria 12/13/2015 Genitourinary/Nephrology No nocturia 12/13/2015 Genitourinary/Nephrology No urinary urgency 12/13/2015 Genitourinary/Nephrology No urinary frequency 12/13/2015 Musculoskeletal joint complaint 12/13/2015 Musculoskeletal No muscle weakness 12/13/2015 Musculoskeletal No myalgias 12/13/2015 Dermatologic No rash 12/13/2015 Dermatologic No sores 12/13/2015 Psychiatric anxiety 12/13/2015 Psychiatric depression 12/13/2015 Neurologic No dizziness 12/13/2015 Neurologic No headache 12/13/2015 Neurologic No neck pain 12/13/2015 Neurologic No syncope 12/13/2015 Constitutional No recent illness 08/15/2015 Constitutional No anorexia 08/15/2015 Constitutional No night sweats 08/15/2015 Constitutional No chills 08/15/2015 Constitutional No diaphoresis 08/15/2015 Constitutional No fatigue 08/15/2015 Constitutional No fever 08/15/2015 Constitutional No insomnia 08/15/2015 Constitutional No malaise 08/15/2015 Eyes No vision change 08/15/2015 Ears/Nose/Throat/Neck No dental pain 08/15/2015 Ears/Nose/Throat/Neck No headache 08/15/2015 Ears/Nose/Throat/Neck No nasal allergies 08/15/2015 Ears/Nose/Throat/Neck No nasal discharge 08/15/2015 Ears/Nose/Throat/Neck No snoring 08/15/2015 Ears/Nose/Throat/Neck No sore throat 08/15/2015 Cardiovascular No chest pain/pressure 08/15/2015 Respiratory No chest congestion 08/15/2015 Respiratory No chest tightness 08/15/2015 Respiratory No cigarette smoking 08/15/2015 Respiratory No cough 08/15/2015 Respiratory No dyspnea on exertion 08/15/2015 Respiratory No dyspnea 08/15/2015 Respiratory passive smoking 08/15/2015 Gastrointestinal No constipation 08/15/2015 Gastrointestinal No diarrhea 08/15/2015 Genitourinary/Nephrology No dysuria 08/15/2015 Genitourinary/Nephrology No nocturia 08/15/2015 Genitourinary/Nephrology No urinary urgency 08/15/2015 Genitourinary/Nephrology No urinary frequency 08/15/2015 Musculoskeletal joint complaint 08/15/2015 Musculoskeletal No muscle weakness 08/15/2015 Musculoskeletal No myalgias 08/15/2015 Dermatologic No rash 08/15/2015 Dermatologic No sores 08/15/2015 Psychiatric anxiety 08/15/2015 Psychiatric depression 08/15/2015 Constitutional recent illness 06/13/2015 Constitutional night sweats 06/13/2015 Constitutional chills 06/13/2015 Constitutional No fatigue 06/13/2015 Constitutional No fever 06/13/2015 Constitutional No insomnia 06/13/2015 Constitutional No malaise 06/13/2015 Eyes No eye discharge 06/13/2015 Eyes No eye erythema 06/13/2015 Ears/Nose/Throat/Neck dizziness 06/13/2015 Ears/Nose/Throat/Neck headache 06/13/2015 Ears/Nose/Throat/Neck nasal allergies 06/13/2015 Ears/Nose/Throat/Neck nasal discharge 06/13/2015 Ears/Nose/Throat/Neck otalgia 06/13/2015 Ears/Nose/Throat/Neck sinus congestion 06/13/2015 Ears/Nose/Throat/Neck No sore throat 06/13/2015 Cardiovascular No chest pain/pressure 06/13/2015 Cardiovascular No dyspnea 06/13/2015 Respiratory No productive sputum 06/13/2015 Respiratory No chest congestion 06/13/2015 Respiratory cough 06/13/2015 Gastrointestinal No abdominal pain 06/13/2015 Gastrointestinal No constipation 06/13/2015 Gastrointestinal No diarrhea 06/13/2015 Genitourinary/Nephrology No dysuria 06/13/2015 Musculoskeletal No joint complaint 06/13/2015 Dermatologic No rash 06/13/2015 Neurologic No alteration of consciousness 06/13/2015 Constitutional recent illness 06/07/2015 Constitutional No anorexia 06/07/2015 Constitutional night sweats 06/07/2015 Constitutional chills 06/07/2015 Constitutional diaphoresis 06/07/2015 Constitutional No fatigue 06/07/2015 Constitutional No fever 06/07/2015 Constitutional No insomnia 06/07/2015 Constitutional No malaise 06/07/2015 Constitutional No weight loss 06/07/2015 Constitutional No weight gain 06/07/2015 Eyes No eye erythema 06/07/2015 Eyes No eye discharge 06/07/2015 Ears/Nose/Throat/Neck dizziness 06/07/2015 Ears/Nose/Throat/Neck No headache 06/07/2015 Ears/Nose/Throat/Neck nasal allergies 06/07/2015 Ears/Nose/Throat/Neck nasal discharge 06/07/2015 Ears/Nose/Throat/Neck otalgia 06/07/2015 Ears/Nose/Throat/Neck sinus congestion 06/07/2015 Ears/Nose/Throat/Neck No sore throat 06/07/2015 Cardiovascular No chest pain/pressure 06/07/2015 Cardiovascular No dyspnea 06/07/2015 Respiratory No productive sputum 06/07/2015 Respiratory No chest congestion 06/07/2015 Respiratory cough 06/07/2015 Gastrointestinal No abdominal pain 06/07/2015 Gastrointestinal No constipation 06/07/2015 Gastrointestinal No diarrhea 06/07/2015 Genitourinary/Nephrology No dysuria 06/07/2015 Musculoskeletal No joint complaint 06/07/2015 Dermatologic No rash 06/07/2015 Neurologic No alteration of consciousness 06/07/2015 Constitutional No recent illness 03/13/2015 Constitutional No anorexia 03/13/2015 Constitutional No night sweats 03/13/2015 Constitutional No chills 03/13/2015 Constitutional No diaphoresis 03/13/2015 Constitutional No fatigue 03/13/2015 Constitutional No fever 03/13/2015 Constitutional No insomnia 03/13/2015 Constitutional No malaise 03/13/2015 Constitutional weight loss 03/13/2015 Constitutional No weight gain 03/13/2015 Constitutional obesity 03/13/2015 Eyes No vision change 03/13/2015 Ears/Nose/Throat/Neck No dental pain 03/13/2015 Ears/Nose/Throat/Neck No headache 03/13/2015 Ears/Nose/Throat/Neck No nasal allergies 03/13/2015 Ears/Nose/Throat/Neck No nasal discharge 03/13/2015 Ears/Nose/Throat/Neck No snoring 03/13/2015 Ears/Nose/Throat/Neck No sore throat 03/13/2015 Cardiovascular No chest pain/pressure 03/13/2015 Respiratory No chest congestion 03/13/2015 Respiratory No chest tightness 03/13/2015 Respiratory No cigarette smoking 03/13/2015 Respiratory No cough 03/13/2015 Respiratory No dyspnea on exertion 03/13/2015 Respiratory No dyspnea 03/13/2015 Gastrointestinal No constipation 03/13/2015 Gastrointestinal No diarrhea 03/13/2015 Genitourinary/Nephrology No dysuria 03/13/2015 Respiratory passive smoking 03/13/2015 Genitourinary/Nephrology No urinary urgency 03/13/2015 Genitourinary/Nephrology No urinary frequency 03/13/2015 Genitourinary/Nephrology No nocturia 03/13/2015 Musculoskeletal joint complaint 03/13/2015 Musculoskeletal No muscle weakness 03/13/2015 Musculoskeletal No myalgias 03/13/2015 Dermatologic No rash 03/13/2015 Dermatologic No sores 03/13/2015 Psychiatric anxiety 03/13/2015 Psychiatric depression 03/13/2015 Constitutional No fever 12/07/2014 Constitutional fatigue 12/07/2014 Eyes No vision change 12/07/2014 Cardiovascular No chest pain/pressure 12/07/2014 Cardiovascular No dyspnea 12/07/2014 Respiratory No chest congestion 12/07/2014 Gastrointestinal No constipation 12/07/2014 Gastrointestinal No diarrhea 12/07/2014 Genitourinary/Nephrology No urinary incontinence 12/07/2014 Dermatologic No rash 12/07/2014 Neurologic dizziness 12/07/2014 Constitutional fatigue 09/07/2014 Constitutional No fever 09/07/2014 Constitutional No insomnia 09/07/2014 Constitutional No malaise 09/07/2014 Constitutional No weight loss 09/07/2014 Constitutional No weight gain 09/07/2014 Constitutional No recent illness 09/07/2014 Constitutional No anorexia 09/07/2014 Constitutional No night sweats 09/07/2014 Constitutional No chills 09/07/2014 Constitutional No diaphoresis 09/07/2014 Eyes No eye erythema 09/07/2014 Ears/Nose/Throat/Neck dizziness 09/07/2014 Ears/Nose/Throat/Neck No headache 09/07/2014 Cardiovascular No chest pain/pressure 09/07/2014 Cardiovascular No dyspnea 09/07/2014 Cardiovascular No edema 09/07/2014 Respiratory No productive sputum 09/07/2014 Respiratory cough 09/07/2014 Gastrointestinal No constipation 09/07/2014 Gastrointestinal No diarrhea 09/07/2014 Genitourinary/Nephrology urinary incontinence 09/07/2014 Musculoskeletal joint complaint 09/07/2014 Dermatologic No rash 09/07/2014 Dermatologic No sores 09/07/2014 Neurologic No alteration of consciousness 09/07/2014 Neurologic gait abnormality 09/07/2014 Neurologic memory loss 09/07/2014 Psychiatric No anxiety 09/07/2014 Psychiatric depression 09/07/2014 Endocrine No dry or coarse skin 09/07/2014 Hematologic/Lymphatic No abnormal bleeding and bruising 09/07/2014 Constitutional recent illness 08/07/2014 Constitutional No chills 08/07/2014 Constitutional No fatigue 08/07/2014 Constitutional No fever 08/07/2014 Constitutional No insomnia 08/07/2014 Constitutional malaise 08/07/2014 Eyes No blindness 08/07/2014 Eyes No vision change 08/07/2014 Ears/Nose/Throat/Neck No dental pain 08/07/2014 Ears/Nose/Throat/Neck dizziness 08/07/2014 Ears/Nose/Throat/Neck No dysphagia 08/07/2014 Ears/Nose/Throat/Neck headache 08/07/2014 Ears/Nose/Throat/Neck No hearing loss 08/07/2014 Ears/Nose/Throat/Neck No nasal allergies 08/07/2014 Ears/Nose/Throat/Neck No sore throat 08/07/2014 Ears/Nose/Throat/Neck No postnasal drip 08/07/2014 Ears/Nose/Throat/Neck No sinus congestion 08/07/2014 Cardiovascular No chest pain/pressure 08/07/2014 Cardiovascular No dyspnea 08/07/2014 Cardiovascular No edema 08/07/2014 Cardiovascular No exercise intolerance 08/07/2014 Cardiovascular No fatigue 08/07/2014 Cardiovascular near-syncope/dizziness 08/07/2014 Respiratory No chest tightness 08/07/2014 Respiratory No cough 08/07/2014 Respiratory No dyspnea 08/07/2014 Respiratory No pedal edema 08/07/2014 Gastrointestinal No abdominal pain 08/07/2014 Gastrointestinal No constipation 08/07/2014 Gastrointestinal No diarrhea 08/07/2014 Gastrointestinal No gastroesophageal reflux 08/07/2014 Gastrointestinal No nausea 08/07/2014 Gastrointestinal No vomiting 08/07/2014 Genitourinary/Nephrology No dysuria 08/07/2014 Genitourinary/Nephrology No nocturia 08/07/2014 Genitourinary/Nephrology No urinary incontinence 08/07/2014 Musculoskeletal No stiffness 08/07/2014 Musculoskeletal No swelling 08/07/2014 Musculoskeletal No muscle weakness 08/07/2014 Musculoskeletal No myalgias 08/07/2014 Dermatologic No rash 08/07/2014 Dermatologic No sores 08/07/2014 Neurologic dizziness 08/07/2014 Neurologic headache 08/07/2014 Neurologic No neck pain 08/07/2014 Psychiatric No anxiety 08/07/2014 Psychiatric No depression 08/07/2014 Physical Exam Exam Name System Name Item Name Status Result Effective Dates Notes Full Exam - General 1994 Constitutional general appearance Overall: well developed 09/17/2018 None Full Exam - General 1994 Constitutional general appearance Overall: in no acute distress 09/17/2018 None Full Exam - General 1994 Constitutional general appearance Overall: well nourished 09/17/2018 None Full Exam - General 1994 Eyes conjunctiva/eyelids Overall: conjunctiva clear 09/17/2018 None Full Exam - General 1994 Eyes conjunctiva/eyelids Overall: cornea clear 09/17/2018 None Full Exam - General 1994 Eyes conjunctiva/eyelids Overall: eyelids normal 09/17/2018 None Full Exam - General 1994 Eyes pupils and irises Overall: pupils equal, round, reactive to light and accomodation 09/17/2018 None Full Exam - General 1994 Ears/Nose/Throat external ear Overall: normal appearance 09/17/2018 None Full Exam - General 1995 Ears/Nose/Throat external ear Overall: no masses 09/17/2018 None Full Exam - General 1994 Ears/Nose/Throat external ear Overall: normal mastoids 09/17/2018 None Full Exam - General 1995 Ears/Nose/Throat external nose Overall: benign appearance 09/17/2018 None Full Exam - General 1995 Ears/Nose/Throat external nose Overall: no masses 09/17/2018 None Full Exam - General 1994 Ears/Nose/Throat external nose Overall: non-tender 09/17/2018 None Full Exam - General 1994 Ears/Nose/Throat otoscopic exam Overall: external auditory canals clear 09/17/2018 None Full Exam - General 1994 Ears/Nose/Throat otoscopic exam Overall: tympanic membranes clear 09/17/2018 None Full Exam - General 1994 Ears/Nose/Throat lips/teeth/gingiva Overall: benign lips 09/17/2018 None Full Exam - General 1995 Ears/Nose/Throat lips/teeth/gingiva Overall: normal dentition 09/17/2018 None Full Exam - General 1995 Ears/Nose/Throat lips/teeth/gingiva Overall: benign gingiva 09/17/2018 None Full Exam - General 1995 Ears/Nose/Throat lips/teeth/gingiva Overall: no masses 09/17/2018 None Full Exam - General 1994 Ears/Nose/Throat oral cavity/pharynx/larynx Overall: oral mucosa clear 09/17/2018 None Full Exam - General 1994 Ears/Nose/Throat oral cavity/pharynx/larynx Overall: oropharyngeal mucosa clear 09/17/2018 None Full Exam - General 1995 Ears/Nose/Throat oral cavity/pharynx/larynx Overall: no masses 09/17/2018 None Full Exam - General 1994 Respiratory auscultation Overall: breath sounds clear bilaterally 09/17/2018 None Full Exam - General 1994 Respiratory respiratory effort/rhythm Overall: no retractions 09/17/2018 None Full Exam - General 1994 Respiratory respiratory effort/rhythm Overall: normal rate 09/17/2018 None Full Exam - General 1994 Cardiovascular extremities Overall: no clubbing 09/17/2018 None Full Exam - General 1994 Cardiovascular auscultation of heart Overall: regular rate 09/17/2018 None Full Exam - General 1994 Cardiovascular auscultation of heart Overall: normal heart sounds 09/17/2018 None Full Exam - General 1994 Cardiovascular auscultation of heart Overall: no murmurs 09/17/2018 None Full Exam - General 1994 Abdomen abdominal exam Overall: no tenderness 09/17/2018 None Full Exam - General 1994 Abdomen abdominal exam Overall: normal bowel sounds 09/17/2018 None Full Exam - General 1994 Musculoskeletal gait and station Overall: normal gait 09/17/2018 None Full Exam - General 1994 Musculoskeletal gait and station Overall: normal station 09/17/2018 None Full Exam - General 1994 Musculoskeletal head and neck Overall: head atraumatic 09/17/2018 None Full Exam - General 1994 Musculoskeletal head and neck Overall: cervical spine benign 09/17/2018 None Full Exam - General 1994 Integument inspection of skin Overall: no rash, lesions 09/17/2018 None Full Exam - General 1994 Psychiatric orientation/consciousness Overall: oriented to person, place and time 09/17/2018 None Full Exam - General 1994 Psychiatric behavior/psychomotor activity Overall: no tics, normal psychomotor activity 09/17/2018 None Full Exam - General 1994 Psychiatric mood and affect Overall: normal mood and affect 09/17/2018 None Full Exam - General 1994 Psychiatric appearance Overall: well-groomed, good eye contact 09/17/2018 None Full Exam - General 1994 Constitutional general appearance Overall: well developed 07/09/2018 None Full Exam - General 1994 Constitutional general appearance Overall: in no acute distress 07/09/2018 None Full Exam - General 1994 Constitutional general appearance Overall: well nourished 07/09/2018 None Full Exam - General 1994 Eyes conjunctiva/eyelids Overall: conjunctiva clear 07/09/2018 None Full Exam - General 1994 Eyes conjunctiva/eyelids Overall: eyelids normal 07/09/2018 None Full Exam - General 1994 Eyes pupils and irises Overall: pupils equal, round, reactive to light and accomodation 07/09/2018 None Full Exam - General 1994 Ears/Nose/Throat otoscopic exam Overall: external auditory canals clear 07/09/2018 None Full Exam - General 1994 Ears/Nose/Throat otoscopic exam Tympanic membrane: bulging 07/09/2018 None Full Exam - General 1994 Ears/Nose/Throat lips/teeth/gingiva Overall: benign lips 07/09/2018 None Full Exam - General 1994 Ears/Nose/Throat oral cavity/pharynx/larynx Overall: oral mucosa clear 07/09/2018 None Full Exam - General 1994 Ears/Nose/Throat oral cavity/pharynx/larynx Overall: oropharyngeal mucosa clear 07/09/2018 None Full Exam - General 1994 Respiratory auscultation Overall: breath sounds clear bilaterally 07/09/2018 None Full Exam - General 1994 Respiratory respiratory effort/rhythm Overall: no retractions 07/09/2018 None Full Exam - General 1994 Respiratory respiratory effort/rhythm Overall: normal rate 07/09/2018 None Full Exam - General 1994 Cardiovascular auscultation of heart Overall: regular rate 07/09/2018 None Full Exam - General 1994 Cardiovascular auscultation of heart Overall: normal heart sounds 07/09/2018 None Full Exam - General 1994 Abdomen abdominal exam Overall: no tenderness 07/09/2018 None Full Exam - General 1994 Abdomen abdominal exam Overall: normal bowel sounds 07/09/2018 None Full Exam - General 1994 Lymphatic neck nodes Overall: anterior cervical chain benign 07/09/2018 None Full Exam - General 1994 Lymphatic neck nodes Overall: posterior cervical chain benign 07/09/2018 None Full Exam - General 1994 Musculoskeletal head and neck Overall: head atraumatic 07/09/2018 None Full Exam - General 1994 Psychiatric orientation/consciousness Overall: oriented to person, place and time 07/09/2018 None Full Exam - General 1994 Psychiatric mood and affect Overall: normal mood and affect 07/09/2018 None Full Exam - General 1994 Psychiatric appearance Overall: well-groomed, good eye contact 07/09/2018 None Full Exam - General 1994 Constitutional general appearance Overall: well developed 06/04/2018 None Full Exam - General 1994 Constitutional general appearance Overall: in no acute distress 06/04/2018 None Full Exam - General 1994 Constitutional general appearance Overall: well nourished 06/04/2018 None Full Exam - General 1994 Eyes conjunctiva/eyelids Overall: conjunctiva clear 06/04/2018 None Full Exam - General 1994 Eyes conjunctiva/eyelids Overall: cornea clear 06/04/2018 None Full Exam - General 1994 Eyes conjunctiva/eyelids Overall: eyelids normal 06/04/2018 None Full Exam - General 1994 Eyes pupils and irises Overall: pupils equal, round, reactive to light and accomodation 06/04/2018 None Full Exam - General 1995 Ears/Nose/Throat external ear Overall: normal appearance 06/04/2018 None Full Exam - General 1995 Ears/Nose/Throat external ear Overall: no masses 06/04/2018 None Full Exam - General 1995 Ears/Nose/Throat external ear Overall: normal mastoids 06/04/2018 None Full Exam - General 1995 Ears/Nose/Throat external nose Overall: benign appearance 06/04/2018 None Full Exam - General 1995 Ears/Nose/Throat external nose Overall: no masses 06/04/2018 None Full Exam - General 1995 Ears/Nose/Throat external nose Overall: non-tender 06/04/2018 None Full Exam - General 1995 Ears/Nose/Throat otoscopic exam Overall: external auditory canals clear 06/04/2018 None Full Exam - General 1995 Ears/Nose/Throat otoscopic exam Overall: tympanic membranes clear 06/04/2018 None Full Exam - General 1994 Ears/Nose/Throat lips/teeth/gingiva Overall: benign lips 06/04/2018 None Full Exam - General 1994 Ears/Nose/Throat lips/teeth/gingiva Overall: normal dentition 06/04/2018 None Full Exam - General 1994 Ears/Nose/Throat lips/teeth/gingiva Overall: benign gingiva 06/04/2018 None Full Exam - General 1995 Ears/Nose/Throat lips/teeth/gingiva Overall: no masses 06/04/2018 None Full Exam - General 1994 Ears/Nose/Throat oral cavity/pharynx/larynx Overall: oral mucosa clear 06/04/2018 None Full Exam - General 1994 Ears/Nose/Throat oral cavity/pharynx/larynx Overall: oropharyngeal mucosa clear 06/04/2018 None Full Exam - General 1994 Ears/Nose/Throat oral cavity/pharynx/larynx Overall: no masses 06/04/2018 None Full Exam - General 1994 Respiratory auscultation Overall: breath sounds clear bilaterally 06/04/2018 None Full Exam - General 1994 Respiratory respiratory effort/rhythm Overall: no retractions 06/04/2018 None Full Exam - General 1994 Respiratory respiratory effort/rhythm Overall: normal rate 06/04/2018 None Full Exam - General 1994 Cardiovascular extremities Overall: no clubbing 06/04/2018 None Full Exam - General 1994 Cardiovascular auscultation of heart Overall: regular rate 06/04/2018 None Full Exam - General 1994 Cardiovascular auscultation of heart Overall: normal heart sounds 06/04/2018 None Full Exam - General 1994 Cardiovascular auscultation of heart Overall: no murmurs 06/04/2018 None Full Exam - General 1994 Abdomen abdominal exam Overall: no tenderness 06/04/2018 None Full Exam - General 1994 Abdomen abdominal exam Overall: normal bowel sounds 06/04/2018 None Full Exam - General 1994 Musculoskeletal gait and station Overall: normal gait 06/04/2018 None Full Exam - General 1994 Musculoskeletal gait and station Overall: normal station 06/04/2018 None Full Exam - General 1994 Musculoskeletal head and neck Overall: head atraumatic 06/04/2018 None Full Exam - General 1994 Musculoskeletal head and neck Overall: cervical spine benign 06/04/2018 None Full Exam - General 1994 Integument inspection of skin Overall: no rash, lesions 06/04/2018 None Full Exam - General 1994 Psychiatric orientation/consciousness Overall: oriented to person, place and time 06/04/2018 None Full Exam - General 1994 Psychiatric behavior/psychomotor activity Overall: no tics, normal psychomotor activity 06/04/2018 None Full Exam - General 1994 Psychiatric mood and affect Overall: normal mood and affect 06/04/2018 None Full Exam - General 1994 Psychiatric appearance Overall: well-groomed, good eye contact 06/04/2018 None Full Exam - General 1994 Constitutional general appearance Overall: well developed 03/11/2018 None Full Exam - General 1994 Constitutional general appearance Overall: in no acute distress 03/11/2018 None Full Exam - General 1994 Constitutional general appearance Overall: well nourished 03/11/2018 None Full Exam - General 1994 Eyes conjunctiva/eyelids Overall: conjunctiva clear 03/11/2018 None Full Exam - General 1994 Eyes conjunctiva/eyelids Overall: cornea clear 03/11/2018 None Full Exam - General 1994 Eyes conjunctiva/eyelids Overall: eyelids normal 03/11/2018 None Full Exam - General 1994 Eyes pupils and irises Overall: pupils equal, round, reactive to light and accomodation 03/11/2018 None Full Exam - General 1994 Ears/Nose/Throat external ear Overall: normal appearance 03/11/2018 None Full Exam - General 1994 Ears/Nose/Throat external ear Overall: no masses 03/11/2018 None Full Exam - General 1994 Ears/Nose/Throat external ear Overall: normal mastoids 03/11/2018 None Full Exam - General 1994 Ears/Nose/Throat external nose Overall: benign appearance 03/11/2018 None Full Exam - General 1995 Ears/Nose/Throat external nose Overall: no masses 03/11/2018 None Full Exam - General 1995 Ears/Nose/Throat external nose Overall: non-tender 03/11/2018 None Full Exam - General 1995 Ears/Nose/Throat otoscopic exam Overall: external auditory canals clear 03/11/2018 None Full Exam - General 1995 Ears/Nose/Throat otoscopic exam Overall: tympanic membranes clear 03/11/2018 None Full Exam - General 1995 Ears/Nose/Throat lips/teeth/gingiva Overall: benign lips 03/11/2018 None Full Exam - General 1995 Ears/Nose/Throat lips/teeth/gingiva Overall: normal dentition 03/11/2018 None Full Exam - General 1995 Ears/Nose/Throat lips/teeth/gingiva Overall: benign gingiva 03/11/2018 None Full Exam - General 1995 Ears/Nose/Throat lips/teeth/gingiva Overall: no masses 03/11/2018 None Full Exam - General 1994 Ears/Nose/Throat oral cavity/pharynx/larynx Overall: oral mucosa clear 03/11/2018 None Full Exam - General 1994 Ears/Nose/Throat oral cavity/pharynx/larynx Overall: oropharyngeal mucosa clear 03/11/2018 None Full Exam - General 1995 Ears/Nose/Throat oral cavity/pharynx/larynx Overall: no masses 03/11/2018 None Full Exam - General 1994 Respiratory auscultation Overall: breath sounds clear bilaterally 03/11/2018 None Full Exam - General 1994 Respiratory respiratory effort/rhythm Overall: no retractions 03/11/2018 None Full Exam - General 1994 Respiratory respiratory effort/rhythm Overall: normal rate 03/11/2018 None Full Exam - General 1994 Cardiovascular extremities Overall: no clubbing 03/11/2018 None Full Exam - General 1994 Cardiovascular auscultation of heart Overall: regular rate 03/11/2018 None Full Exam - General 1994 Cardiovascular auscultation of heart Overall: normal heart sounds 03/11/2018 None Full Exam - General 1994 Cardiovascular auscultation of heart Overall: no murmurs 03/11/2018 None Full Exam - General 1994 Abdomen abdominal exam Overall: no tenderness 03/11/2018 None Full Exam - General 1994 Abdomen abdominal exam Overall: normal bowel sounds 03/11/2018 None Full Exam - General 1994 Musculoskeletal gait and station Overall: normal gait 03/11/2018 None Full Exam - General 1994 Musculoskeletal gait and station Overall: normal station 03/11/2018 None Full Exam - General 1994 Musculoskeletal head and neck Overall: head atraumatic 03/11/2018 None Full Exam - General 1994 Musculoskeletal head and neck Overall: cervical spine benign 03/11/2018 None Full Exam - General 1994 Integument inspection of skin Overall: no rash, lesions 03/11/2018 None Full Exam - General 1994 Psychiatric orientation/consciousness Overall: oriented to person, place and time 03/11/2018 None Full Exam - General 1994 Psychiatric behavior/psychomotor activity Overall: no tics, normal psychomotor activity 03/11/2018 None Full Exam - General 1994 Psychiatric mood and affect Overall: normal mood and affect 03/11/2018 None Full Exam - General 1994 Psychiatric appearance Overall: well-groomed, good eye contact 03/11/2018 None Full Exam - Orthopedics Constitutional general appearance Overall: well nourished 02/17/2018 None Full Exam - Orthopedics Constitutional general appearance Overall: well developed 02/17/2018 None Full Exam - Orthopedics Constitutional general appearance Overall: in no acute distress 02/17/2018 None Full Exam - Orthopedics Eyes conjunctiva/eyelids Overall: conjunctiva clear 02/17/2018 None Full Exam - Orthopedics Eyes conjunctiva/eyelids Overall: eyelids normal 02/17/2018 None Full Exam - Orthopedics Ears/Nose/Throat lips/teeth/gingiva Overall: benign lips 02/17/2018 None Full Exam - Orthopedics Ears/Nose/Throat oral cavity/pharynx/larynx Overall: oral mucosa clear 02/17/2018 None Full Exam - Orthopedics Respiratory respiratory effort/rhythm Overall: no retractions 02/17/2018 None Full Exam - Orthopedics Respiratory respiratory effort/rhythm Overall: normal rate 02/17/2018 None Full Exam - Orthopedics Psychiatric orientation/consciousness Overall: oriented to person, place and time 02/17/2018 None Full Exam - Orthopedics Psychiatric mood and affect Overall: normal mood and affect 02/17/2018 None Full Exam - Orthopedics Psychiatric appearance Overall: well-groomed, good eye contact 02/17/2018 None Full Exam - Orthopedics MS: head/neck insp & palp - H/N Overall: head atraumatic 02/17/2018 None Full Exam - Orthopedics MS: left upper extremity insp & palp - LUE Tinel's: negative wrist 02/17/2018 None Full Exam - Orthopedics MS: left upper extremity insp & palp - LUE Ignacio's: negative 02/17/2018 within normal limits Full Exam - Orthopedics MS: left upper extremity range of motion - LUE Overall: full range of motion in wrist 02/17/2018 None Full Exam - Orthopedics MS: left upper extremity range of motion - LUE Overall: full range of motion in fingers 02/17/2018 None Full Exam - Orthopedics Cardiovascular examination of vasculature Overall: no clubbing, cyanosis, edema 02/17/2018 None Full Exam - Orthopedics Cardiovascular examination of vasculature Overall: good capillary refill 02/17/2018 None Full Exam - Orthopedics Cardiovascular examination of vasculature Overall: warm extremities 02/17/2018 None Full Exam - General 1994 Constitutional general appearance Overall: well developed 12/21/2017 None Full Exam - General 1994 Constitutional general appearance Overall: in no acute distress 12/21/2017 None Full Exam - General 1994 Constitutional general appearance Overall: well nourished 12/21/2017 None Full Exam - General 1994 Eyes conjunctiva/eyelids Overall: eyelids normal 12/21/2017 None Full Exam - General 1994 Eyes conjunctiva/eyelids Overall: conjunctiva clear 12/21/2017 None Full Exam - General 1994 Eyes conjunctiva/eyelids Overall: cornea clear 12/21/2017 None Full Exam - General 1994 Ears/Nose/Throat lips/teeth/gingiva Overall: benign lips 12/21/2017 None Full Exam - General 1994 Ears/Nose/Throat oral cavity/pharynx/larynx Overall: oral mucosa clear 12/21/2017 None Full Exam - General 1994 Respiratory respiratory effort/rhythm Overall: normal rate 12/21/2017 None Full Exam - General 1994 Respiratory respiratory effort/rhythm Overall: no retractions 12/21/2017 None Full Exam - General 1994 Musculoskeletal head and neck Overall: head atraumatic 12/21/2017 None Full Exam - General 1994 Musculoskeletal upper extremity ROM - shoulder: pain with abduction 12/21/2017 None Full Exam - General 1994 Musculoskeletal upper extremity ROM - shoulder: pain with adduction 12/21/2017 None Full Exam - General 1994 Musculoskeletal upper extremity ROM - shoulder: pain with external rotation 12/21/2017 None Full Exam - General 1994 Musculoskeletal upper extremity ROM - shoulder: pain with internal rotation 12/21/2017 None Full Exam - General 1994 Musculoskeletal upper extremity ROM - shoulder: pain with shoulder flexion 12/21/2017 None Full Exam - General 1994 Musculoskeletal upper extremity ROM - shoulder: pain with shoulder extension 12/21/2017 None Full Exam - General 1994 Neurologic cranial nerves Overall: crainial nerves 2 - 12 grossly intact 12/21/2017 None Full Exam - General 1994 Integument inspection of skin Location: abdomen 12/21/2017 None Full Exam - General 1994 Integument inspection of skin Location: back 12/21/2017 None Full Exam - General 1994 Integument inspection of skin Location: left leg 12/21/2017 None Full Exam - General 1994 Integument inspection of skin Location: right leg 12/21/2017 None Full Exam - General 1994 Integument inspection of skin Pigmentation: erythematous 12/21/2017 None Full Exam - General 1994 Integument inspection of skin Rash/Lesions: papule 12/21/2017 None Full Exam - General 1994 Psychiatric orientation/consciousness Overall: oriented to person, place and time 12/21/2017 None Full Exam - General 1994 Psychiatric mood and affect Overall: normal mood and affect 12/21/2017 None Full Exam - General 1994 Psychiatric appearance Overall: well-groomed, good eye contact 12/21/2017 None Full Exam - ENT Constitutional general appearance Overall: well nourished 11/30/2017 None Full Exam - ENT Constitutional general appearance Overall: well developed 11/30/2017 None Full Exam - ENT Constitutional general appearance Overall: in no acute distress 11/30/2017 None Full Exam - ENT Ears/Nose/Throat otoscopic exam Overall: external auditory canals normal 11/30/2017 None Full Exam - ENT Ears/Nose/Throat otoscopic exam Left tympanic membrane: air-fluid level 11/30/2017 None Full Exam - ENT Ears/Nose/Throat otoscopic exam Right tympanic membrane: air-fluid level 11/30/2017 None Full Exam - ENT Ears/Nose/Throat nasal mucosa, septum, turbinates Drainage: clear 11/30/2017 None Full Exam - ENT Ears/Nose/Throat nasal mucosa, septum, turbinates Drainage: yellow 11/30/2017 None Full Exam - ENT Ears/Nose/Throat lips/teeth/gingiva Overall: benign lips 11/30/2017 None Full Exam - ENT Ears/Nose/Throat oropharynx Posterior Pharynx: clear post nasal drainage 11/30/2017 None Full Exam - ENT Face and Head palpation Left maxillary sinus: tender 11/30/2017 None Full Exam - ENT Face and Head palpation Right maxillary sinus: tender 11/30/2017 None Full Exam - ENT Respiratory inspection Overall: no retractions 11/30/2017 None Full Exam - ENT Respiratory inspection Overall: normal rate 11/30/2017 None Full Exam - ENT Respiratory auscultation Overall: breath sounds clear bilaterally 11/30/2017 None Full Exam - ENT Cardiovascular auscultation of heart Overall: regular rate 11/30/2017 None Full Exam - ENT Cardiovascular auscultation of heart Overall: normal heart sounds 11/30/2017 None Full Exam - ENT Lymphatic palpation of lymph nodes Overall: anterior cervical chain benign 11/30/2017 None Full Exam - ENT Lymphatic palpation of lymph nodes Overall: posterior cervical chain benign 11/30/2017 None Full Exam - ENT Neurologic mood and affect Overall: normal mood 11/30/2017 None Full Exam - ENT Neurologic mood and affect Overall: normal affect 11/30/2017 None Full Exam - ENT Neurologic orientation Overall: oriented to person, place and time 11/30/2017 None Full Exam - ENT Ears/Nose/Throat otoscopic exam Left tympanic membrane: erythematous 11/30/2017 mild Full Exam - ENT Cardiovascular examination of vasculature Edema: non-pitting 11/30/2017 trace Full Exam - ENT Cardiovascular examination of vasculature Edema: bilateral 11/30/2017 to ankles Full Exam - General 1994 Constitutional general appearance Overall: well developed 05/28/2017 None Full Exam - General 1994 Constitutional general appearance Overall: in no acute distress 05/28/2017 None Full Exam - General 1994 Constitutional general appearance Overall: well nourished 05/28/2017 None Full Exam - General 1994 Eyes conjunctiva/eyelids Overall: conjunctiva clear 05/28/2017 None Full Exam - General 1994 Eyes conjunctiva/eyelids Overall: eyelids normal 05/28/2017 None Full Exam - General 1994 Eyes pupils and irises Overall: pupils equal, round, reactive to light and accomodation 05/28/2017 None Full Exam - General 1994 Ears/Nose/Throat lips/teeth/gingiva Overall: benign lips 05/28/2017 None Full Exam - General 1994 Ears/Nose/Throat oral cavity/pharynx/larynx Overall: oral mucosa clear 05/28/2017 None Full Exam - General 1994 Ears/Nose/Throat oral cavity/pharynx/larynx Overall: oropharyngeal mucosa clear 05/28/2017 None Full Exam - General 1994 Respiratory auscultation Overall: breath sounds clear bilaterally 05/28/2017 None Full Exam - General 1994 Respiratory respiratory effort/rhythm Overall: no retractions 05/28/2017 None Full Exam - General 1994 Respiratory respiratory effort/rhythm Overall: normal rate 05/28/2017 None Full Exam - General 1994 Cardiovascular auscultation of heart Overall: regular rate 05/28/2017 None Full Exam - General 1994 Cardiovascular auscultation of heart Overall: normal heart sounds 05/28/2017 None Full Exam - General 1994 Abdomen abdominal exam Overall: no tenderness 05/28/2017 None Full Exam - General 1994 Abdomen abdominal exam Overall: normal bowel sounds 05/28/2017 None Full Exam - General 1994 Lymphatic neck nodes Overall: anterior cervical chain benign 05/28/2017 None Full Exam - General 1994 Lymphatic neck nodes Overall: posterior cervical chain benign 05/28/2017 None Full Exam - General 1994 Musculoskeletal head and neck Overall: head atraumatic 05/28/2017 None Full Exam - General 1994 Psychiatric orientation/consciousness Overall: oriented to person, place and time 05/28/2017 None Full Exam - General 1994 Psychiatric mood and affect Overall: normal mood and affect 05/28/2017 None Full Exam - General 1994 Psychiatric appearance Overall: well-groomed, good eye contact 05/28/2017 None Full Exam - General 1994 Ears/Nose/Throat otoscopic exam Overall: external auditory canals clear 05/28/2017 None Full Exam - General 1994 Ears/Nose/Throat otoscopic exam Tympanic membrane: bulging 05/28/2017 None Full Exam - ENT Constitutional general appearance Overall: well nourished 04/16/2017 None Full Exam - ENT Constitutional general appearance Overall: well developed 04/16/2017 None Full Exam - ENT Constitutional general appearance Overall: in no acute distress 04/16/2017 None Full Exam - ENT Ears/Nose/Throat otoscopic exam Overall: external auditory canals normal 04/16/2017 None Full Exam - ENT Ears/Nose/Throat otoscopic exam Overall: tympanic membranes normal 04/16/2017 None Full Exam - ENT Ears/Nose/Throat oropharynx Overall: oral mucosa clear 04/16/2017 None Full Exam - ENT Face and Head palpation Left maxillary sinus: tender 04/16/2017 None Full Exam - ENT Face and Head palpation Right maxillary sinus: tender 04/16/2017 None Full Exam - ENT Respiratory inspection Overall: no retractions 04/16/2017 None Full Exam - ENT Respiratory inspection Overall: normal rate 04/16/2017 None Full Exam - ENT Respiratory auscultation Overall: breath sounds clear bilaterally 04/16/2017 None Full Exam - ENT Cardiovascular auscultation of heart Overall: regular rate 04/16/2017 None Full Exam - ENT Cardiovascular auscultation of heart Overall: normal heart sounds 04/16/2017 None Full Exam - ENT Lymphatic palpation of lymph nodes Overall: anterior cervical chain benign 04/16/2017 None Full Exam - ENT Lymphatic palpation of lymph nodes Overall: posterior cervical chain benign 04/16/2017 None Full Exam - ENT Integument inspection of skin Overall: no rash, lesions 04/16/2017 None Full Exam - ENT Neurologic orientation Overall: oriented to person, place and time 04/16/2017 None Full Exam - General 1994 Constitutional general appearance Overall: well developed 02/10/2017 None Full Exam - General 1994 Constitutional general appearance Overall: in no acute distress 02/10/2017 None Full Exam - General 1994 Constitutional general appearance Overall: well nourished 02/10/2017 None Full Exam - General 1994 Eyes conjunctiva/eyelids Overall: conjunctiva clear 02/10/2017 None Full Exam - General 1994 Eyes conjunctiva/eyelids Overall: cornea clear 02/10/2017 None Full Exam - General 1994 Eyes conjunctiva/eyelids Overall: eyelids normal 02/10/2017 None Full Exam - General 1994 Ears/Nose/Throat lips/teeth/gingiva Overall: benign lips 02/10/2017 None Full Exam - General 1994 Ears/Nose/Throat oral cavity/pharynx/larynx Overall: oral mucosa clear 02/10/2017 None Full Exam - General 1994 Ears/Nose/Throat oral cavity/pharynx/larynx Overall: oropharyngeal mucosa clear 02/10/2017 None Full Exam - General 1994 Respiratory auscultation Overall: breath sounds clear bilaterally 02/10/2017 None Full Exam - General 1994 Respiratory respiratory effort/rhythm Overall: no retractions 02/10/2017 None Full Exam - General 1994 Respiratory respiratory effort/rhythm Overall: normal rate 02/10/2017 None Full Exam - General 1994 Cardiovascular auscultation of heart Overall: regular rate 02/10/2017 None Full Exam - General 1994 Cardiovascular auscultation of heart Overall: normal heart sounds 02/10/2017 None Full Exam - General 1994 Abdomen abdominal exam Overall: normal bowel sounds 02/10/2017 None Full Exam - General 1994 Abdomen abdominal exam Overall: no tenderness 02/10/2017 None Full Exam - General 1994 Abdomen abdominal exam Lower quadrant: tender to palpation 02/10/2017 None Full Exam - General 1994 Abdomen abdominal exam Lower quadrant: dull pain 02/10/2017 None Full Exam - General 1994 Abdomen abdominal exam Lower quadrant: no guarding 02/10/2017 None Full Exam - General 1994 Abdomen abdominal exam Lower quadrant: no rebound tenderness 02/10/2017 None Full Exam - General 1994 Abdomen abdominal exam Lower quadrant: soft 02/10/2017 None Full Exam - General 1994 Musculoskeletal gait and station Overall: normal station 02/10/2017 None Full Exam - General 1994 Musculoskeletal gait and station Overall: normal gait 02/10/2017 None Full Exam - General 1994 Musculoskeletal head and neck Overall: head atraumatic 02/10/2017 None Full Exam - General 1994 Integument inspection of skin Overall: no rash, lesions 02/10/2017 None Full Exam - General 1994 Neurologic cranial nerves Overall: crainial nerves 2 - 12 grossly intact 02/10/2017 None Full Exam - General 1994 Psychiatric orientation/consciousness Overall: oriented to person, place and time 02/10/2017 None Full Exam - General 1994 Psychiatric mood and affect Overall: normal mood and affect 02/10/2017 None Full Exam - General 1994 Psychiatric appearance Overall: well-groomed, good eye contact 02/10/2017 None Full Exam - General 1994 Constitutional general appearance Development: well developed 02/02/2017 None Full Exam - General 1994 Constitutional general appearance Development: appears stated age 1202/02/2017 None Full Exam - General 1994 Constitutional general appearance Hygiene/Attention to Grooming: good hygiene 02/02/2017 None Full Exam - General 1994 Eyes conjunctiva/eyelids Overall: conjunctiva clear 02/02/2017 None Full Exam - General 1994 Eyes conjunctiva/eyelids Overall: cornea clear 02/02/2017 None Full Exam - General 1994 Eyes conjunctiva/eyelids Overall: eyelids normal 02/02/2017 None Full Exam - General 1994 Eyes pupils and irises Overall: pupils equal, round, reactive to light and accomodation 02/02/2017 None Full Exam - General 1994 Ears/Nose/Throat otoscopic exam Overall: external auditory canals clear 02/02/2017 None Full Exam - General 1994 Ears/Nose/Throat otoscopic exam Overall: tympanic membranes clear 02/02/2017 None Full Exam - General 1994 Ears/Nose/Throat lips/teeth/gingiva Overall: benign lips 02/02/2017 None Full Exam - General 1994 Ears/Nose/Throat lips/teeth/gingiva Overall: normal dentition 02/02/2017 None Full Exam - General 1994 Ears/Nose/Throat oral cavity/pharynx/larynx Overall: oral mucosa clear 02/02/2017 None Full Exam - General 1994 Ears/Nose/Throat oral cavity/pharynx/larynx Overall: oropharyngeal mucosa clear 02/02/2017 None Full Exam - General 1994 Ears/Nose/Throat oral cavity/pharynx/larynx Overall: hypopharynx benign 02/02/2017 None Full Exam - General 1994 Ears/Nose/Throat oral cavity/pharynx/larynx Overall: no masses 02/02/2017 None Full Exam - General 1994 Respiratory auscultation Overall: breath sounds clear bilaterally 02/02/2017 None Full Exam - General 1994 Respiratory respiratory effort/rhythm Overall: no retractions 02/02/2017 None Full Exam - General 1994 Respiratory respiratory effort/rhythm Overall: normal rate 02/02/2017 None Full Exam - General 1994 Cardiovascular extremities Overall: no clubbing 02/02/2017 None Full Exam - General 1994 Cardiovascular auscultation of heart Overall: regular rate 02/02/2017 None Full Exam - General 1994 Cardiovascular auscultation of heart Overall: normal heart sounds 02/02/2017 None Full Exam - General 1994 Musculoskeletal spine, ribs and pelvis Overall: good posture 02/02/2017 None Full Exam - General 1994 Musculoskeletal head and neck Overall: head atraumatic 02/02/2017 None Full Exam - General 1994 Musculoskeletal head and neck Overall: cervical spine benign 02/02/2017 None Full Exam - General 1994 Integument inspection of skin Overall: few scattered moles, no gross abnormalities 02/02/2017 None Full Exam - General 1994 Psychiatric orientation/consciousness Overall: oriented to person, place and time 02/02/2017 None Full Exam - General 1994 Psychiatric mood and affect Overall: normal mood and affect 02/02/2017 None Full Exam - General 1994 Musculoskeletal spine, ribs and pelvis Spine: tender @ thoracic spine 02/02/2017 under bra-line Full Exam - General 1994 Constitutional general appearance Overall: well developed 01/27/2017 None Full Exam - General 1994 Constitutional general appearance Overall: in no acute distress 01/27/2017 None Full Exam - General 1994 Constitutional general appearance Overall: well nourished 01/27/2017 None Full Exam - General 1994 Eyes conjunctiva/eyelids Overall: conjunctiva clear 01/27/2017 None Full Exam - General 1994 Eyes conjunctiva/eyelids Overall: eyelids normal 01/27/2017 None Full Exam - General 1994 Eyes pupils and irises Overall: pupils equal, round, reactive to light and accomodation 01/27/2017 None Full Exam - General 1994 Ears/Nose/Throat otoscopic exam Overall: external auditory canals clear 01/27/2017 None Full Exam - General 1994 Ears/Nose/Throat otoscopic exam Overall: tympanic membranes clear 01/27/2017 None Full Exam - General 1994 Ears/Nose/Throat lips/teeth/gingiva Overall: benign lips 01/27/2017 None Full Exam - General 1994 Ears/Nose/Throat oral cavity/pharynx/larynx Overall: oral mucosa clear 01/27/2017 None Full Exam - General 1994 Ears/Nose/Throat oral cavity/pharynx/larynx Overall: oropharyngeal mucosa clear 01/27/2017 None Full Exam - General 1994 Respiratory auscultation Overall: breath sounds clear bilaterally 01/27/2017 None Full Exam - General 1994 Respiratory respiratory effort/rhythm Overall: no retractions 01/27/2017 None Full Exam - General 1994 Respiratory respiratory effort/rhythm Overall: normal rate 01/27/2017 None Full Exam - General 1994 Cardiovascular auscultation of heart Overall: regular rate 01/27/2017 None Full Exam - General 1994 Cardiovascular auscultation of heart Overall: normal heart sounds 01/27/2017 None Full Exam - General 1994 Abdomen abdominal exam Overall: normal bowel sounds 01/27/2017 None Full Exam - General 1994 Lymphatic neck nodes Overall: anterior cervical chain benign 01/27/2017 None Full Exam - General 1994 Lymphatic neck nodes Overall: posterior cervical chain benign 01/27/2017 None Full Exam - General 1994 Musculoskeletal spine, ribs and pelvis Palpation: tender at greater trochanter 01/27/2017 None Full Exam - General 1994 Musculoskeletal head and neck Overall: head atraumatic 01/27/2017 None Full Exam - General 1994 Integument inspection of skin Location: face 01/27/2017 forehead - small [place] Full Exam - General 1994 Neurologic cranial nerves Overall: crainial nerves 2 - 12 grossly intact 01/27/2017 None Full Exam - General 1994 Psychiatric orientation/consciousness Overall: oriented to person, place and time 01/27/2017 None Full Exam - General 1994 Psychiatric mood and affect Overall: normal mood and affect 01/27/2017 None Full Exam - General 1994 Psychiatric appearance Overall: well-groomed, good eye contact 01/27/2017 None Full Exam - General 1994 Abdomen abdominal exam Upper quadrant: tender to palpation 01/27/2017 None Full Exam - General 1994 Constitutional general appearance Overall: well developed 11/07/2016 None Full Exam - General 1994 Constitutional general appearance Overall: in no acute distress 11/07/2016 None Full Exam - General 1994 Constitutional general appearance Overall: well nourished 11/07/2016 None Full Exam - General 1994 Eyes conjunctiva/eyelids Overall: conjunctiva clear 11/07/2016 None Full Exam - General 1994 Eyes conjunctiva/eyelids Overall: eyelids normal 11/07/2016 None Full Exam - General 1994 Eyes pupils and irises Overall: pupils equal, round, reactive to light and accomodation 11/07/2016 None Full Exam - General 1994 Ears/Nose/Throat otoscopic exam Overall: external auditory canals clear 11/07/2016 None Full Exam - General 1994 Ears/Nose/Throat otoscopic exam Overall: tympanic membranes clear 11/07/2016 None Full Exam - General 1994 Ears/Nose/Throat lips/teeth/gingiva Overall: benign lips 11/07/2016 None Full Exam - General 1994 Ears/Nose/Throat oral cavity/pharynx/larynx Overall: oral mucosa clear 11/07/2016 None Full Exam - General 1994 Ears/Nose/Throat oral cavity/pharynx/larynx Overall: oropharyngeal mucosa clear 11/07/2016 None Full Exam - General 1994 Respiratory respiratory effort/rhythm Overall: no retractions 11/07/2016 None Full Exam - General 1994 Respiratory respiratory effort/rhythm Overall: normal rate 11/07/2016 None Full Exam - General 1994 Respiratory auscultation Overall: breath sounds clear bilaterally 11/07/2016 None Full Exam - General 1994 Cardiovascular auscultation of heart Overall: regular rate 11/07/2016 None Full Exam - General 1994 Cardiovascular auscultation of heart Overall: normal heart sounds 11/07/2016 None Full Exam - General 1994 Abdomen abdominal exam Overall: normal bowel sounds 11/07/2016 None Full Exam - General 1994 Abdomen abdominal exam Overall: no tenderness 11/07/2016 None Full Exam - General 1994 Lymphatic neck nodes Overall: posterior cervical chain benign 11/07/2016 None Full Exam - General 1994 Lymphatic neck nodes Overall: anterior cervical chain benign 11/07/2016 None Full Exam - General 1994 Musculoskeletal head and neck Overall: head atraumatic 11/07/2016 None Full Exam - General 1994 Musculoskeletal spine, ribs and pelvis Palpation: tender at greater trochanter 11/07/2016 None Full Exam - General 1994 Neurologic cranial nerves Overall: crainial nerves 2 - 12 grossly intact 11/07/2016 None Full Exam - General 1994 Psychiatric orientation/consciousness Overall: oriented to person, place and time 11/07/2016 None Full Exam - General 1994 Psychiatric mood and affect Overall: normal mood and affect 11/07/2016 None Full Exam - General 1994 Psychiatric appearance Overall: well-groomed, good eye contact 11/07/2016 None Full Exam - General 1994 Integument inspection of skin Location: face 11/07/2016 forehead - small [place] Full Exam - ENT Constitutional general appearance Overall: well nourished 03/26/2016 None Full Exam - ENT Constitutional general appearance Overall: well developed 03/26/2016 None Full Exam - ENT Constitutional general appearance Overall: in no acute distress 03/26/2016 None Full Exam - ENT Ears/Nose/Throat otoscopic exam Overall: external auditory canals normal 03/26/2016 None Full Exam - ENT Ears/Nose/Throat otoscopic exam Left tympanic membrane: air-fluid level 03/26/2016 None Full Exam - ENT Ears/Nose/Throat otoscopic exam Right tympanic membrane: air-fluid level 03/26/2016 None Full Exam - ENT Ears/Nose/Throat nasal mucosa, septum, turbinates Drainage: clear 03/26/2016 None Full Exam - ENT Ears/Nose/Throat nasal mucosa, septum, turbinates Drainage: yellow 03/26/2016 None Full Exam - ENT Ears/Nose/Throat lips/teeth/gingiva Overall: benign lips 03/26/2016 None Full Exam - ENT Ears/Nose/Throat oropharynx Posterior Pharynx: clear post nasal drainage 03/26/2016 None Full Exam - ENT Respiratory inspection Overall: no retractions 03/26/2016 None Full Exam - ENT Respiratory inspection Overall: normal rate 03/26/2016 None Full Exam - ENT Respiratory auscultation Overall: breath sounds clear bilaterally 03/26/2016 None Full Exam - ENT Cardiovascular auscultation of heart Overall: regular rate 03/26/2016 None Full Exam - ENT Cardiovascular auscultation of heart Overall: normal heart sounds 03/26/2016 None Full Exam - ENT Lymphatic palpation of lymph nodes Overall: anterior cervical chain benign 03/26/2016 None Full Exam - ENT Lymphatic palpation of lymph nodes Overall: posterior cervical chain benign 03/26/2016 None Full Exam - ENT Neurologic mood and affect Overall: normal mood 03/26/2016 None Full Exam - ENT Neurologic mood and affect Overall: normal affect 03/26/2016 None Full Exam - ENT Neurologic orientation Overall: oriented to person, place and time 03/26/2016 None Full Exam - General 1994 Constitutional general appearance Overall: well developed 12/13/2015 None Full Exam - General 1994 Constitutional general appearance Overall: in no acute distress 12/13/2015 None Full Exam - General 1994 Constitutional general appearance Overall: well nourished 12/13/2015 None Full Exam - General 1994 Eyes conjunctiva/eyelids Overall: conjunctiva clear 12/13/2015 None Full Exam - General 1994 Eyes conjunctiva/eyelids Overall: cornea clear 12/13/2015 None Full Exam - General 1994 Eyes conjunctiva/eyelids Overall: eyelids normal 12/13/2015 None Full Exam - General 1994 Eyes pupils and irises Overall: pupils equal, round, reactive to light and accomodation 12/13/2015 None Full Exam - General 1994 Ears/Nose/Throat external ear Overall: normal appearance 12/13/2015 None Full Exam - General 1994 Ears/Nose/Throat external ear Overall: no masses 12/13/2015 None Full Exam - General 1994 Ears/Nose/Throat external ear Overall: normal mastoids 12/13/2015 None Full Exam - General 1994 Ears/Nose/Throat external nose Overall: benign appearance 12/13/2015 None Full Exam - General 1994 Ears/Nose/Throat external nose Overall: no masses 12/13/2015 None Full Exam - General 1994 Ears/Nose/Throat external nose Overall: non-tender 12/13/2015 None Full Exam - General 1994 Ears/Nose/Throat otoscopic exam Overall: external auditory canals clear 12/13/2015 None Full Exam - General 1994 Ears/Nose/Throat otoscopic exam Overall: tympanic membranes clear 12/13/2015 None Full Exam - General 1994 Ears/Nose/Throat lips/teeth/gingiva Overall: benign lips 12/13/2015 None Full Exam - General 1994 Ears/Nose/Throat lips/teeth/gingiva Overall: normal dentition 12/13/2015 None Full Exam - General 1994 Ears/Nose/Throat lips/teeth/gingiva Overall: benign gingiva 12/13/2015 None Full Exam - General 1994 Ears/Nose/Throat lips/teeth/gingiva Overall: no masses 12/13/2015 None Full Exam - General 1994 Ears/Nose/Throat oral cavity/pharynx/larynx Overall: oral mucosa clear 12/13/2015 None Full Exam - General 1994 Ears/Nose/Throat oral cavity/pharynx/larynx Overall: oropharyngeal mucosa clear 12/13/2015 None Full Exam - General 1994 Ears/Nose/Throat oral cavity/pharynx/larynx Overall: no masses 12/13/2015 None Full Exam - General 1994 Respiratory auscultation Overall: breath sounds clear bilaterally 12/13/2015 None Full Exam - General 1994 Respiratory respiratory effort/rhythm Overall: no retractions 12/13/2015 None Full Exam - General 1994 Respiratory respiratory effort/rhythm Overall: normal rate 12/13/2015 None Full Exam - General 1994 Cardiovascular extremities Overall: no clubbing 12/13/2015 None Full Exam - General 1994 Cardiovascular auscultation of heart Overall: regular rate 12/13/2015 None Full Exam - General 1994 Cardiovascular auscultation of heart Overall: normal heart sounds 12/13/2015 None Full Exam - General 1994 Cardiovascular auscultation of heart Overall: no murmurs 12/13/2015 None Full Exam - General 1994 Abdomen abdominal exam Overall: no tenderness 12/13/2015 None Full Exam - General 1994 Abdomen abdominal exam Overall: normal bowel sounds 12/13/2015 None Full Exam - General 1994 Musculoskeletal gait and station Overall: normal gait 12/13/2015 None Full Exam - General 1994 Musculoskeletal gait and station Overall: normal station 12/13/2015 None Full Exam - General 1994 Musculoskeletal head and neck Overall: head atraumatic 12/13/2015 None Full Exam - General 1994 Musculoskeletal head and neck Overall: cervical spine benign 12/13/2015 None Full Exam - General 1994 Integument inspection of skin Overall: no rash, lesions 12/13/2015 None Full Exam - General 1994 Psychiatric orientation/consciousness Overall: oriented to person, place and time 12/13/2015 None Full Exam - General 1994 Psychiatric behavior/psychomotor activity Overall: no tics, normal psychomotor activity 12/13/2015 None Full Exam - General 1994 Psychiatric mood and affect Overall: normal mood and affect 12/13/2015 None Full Exam - General 1994 Psychiatric appearance Overall: well-groomed, good eye contact 12/13/2015 None Full Exam - General 1994 Constitutional general appearance Overall: well developed 08/15/2015 None Full Exam - General 1994 Constitutional general appearance Overall: in no acute distress 08/15/2015 None Full Exam - General 1994 Constitutional general appearance Overall: well nourished 08/15/2015 None Full Exam - General 1994 Eyes conjunctiva/eyelids Overall: conjunctiva clear 08/15/2015 None Full Exam - General 1994 Eyes conjunctiva/eyelids Overall: cornea clear 08/15/2015 None Full Exam - General 1994 Eyes conjunctiva/eyelids Overall: eyelids normal 08/15/2015 None Full Exam - General 1994 Eyes pupils and irises Overall: pupils equal, round, reactive to light and accomodation 08/15/2015 None Full Exam - General 1994 Ears/Nose/Throat external ear Overall: normal appearance 08/15/2015 None Full Exam - General 1994 Ears/Nose/Throat external ear Overall: no masses 08/15/2015 None Full Exam - General 1994 Ears/Nose/Throat external ear Overall: normal mastoids 08/15/2015 None Full Exam - General 1994 Ears/Nose/Throat external nose Overall: benign appearance 08/15/2015 None Full Exam - General 1994 Ears/Nose/Throat external nose Overall: no masses 08/15/2015 None Full Exam - General 1994 Ears/Nose/Throat external nose Overall: non-tender 08/15/2015 None Full Exam - General 1994 Ears/Nose/Throat otoscopic exam Overall: external auditory canals clear 08/15/2015 None Full Exam - General 1994 Ears/Nose/Throat otoscopic exam Overall: tympanic membranes clear 08/15/2015 None Full Exam - General 1994 Ears/Nose/Throat lips/teeth/gingiva Overall: benign lips 08/15/2015 None Full Exam - General 1994 Ears/Nose/Throat lips/teeth/gingiva Overall: normal dentition 08/15/2015 None Full Exam - General 1994 Ears/Nose/Throat lips/teeth/gingiva Overall: benign gingiva 08/15/2015 None Full Exam - General 1994 Ears/Nose/Throat lips/teeth/gingiva Overall: no masses 08/15/2015 None Full Exam - General 1994 Ears/Nose/Throat oral cavity/pharynx/larynx Overall: oral mucosa clear 08/15/2015 None Full Exam - General 1994 Ears/Nose/Throat oral cavity/pharynx/larynx Overall: oropharyngeal mucosa clear 08/15/2015 None Full Exam - General 1994 Ears/Nose/Throat oral cavity/pharynx/larynx Overall: no masses 08/15/2015 None Full Exam - General 1994 Respiratory auscultation Overall: breath sounds clear bilaterally 08/15/2015 None Full Exam - General 1994 Respiratory respiratory effort/rhythm Overall: no retractions 08/15/2015 None Full Exam - General 1994 Respiratory respiratory effort/rhythm Overall: normal rate 08/15/2015 None Full Exam - General 1994 Cardiovascular extremities Overall: no clubbing 08/15/2015 None Full Exam - General 1994 Cardiovascular auscultation of heart Overall: regular rate 08/15/2015 None Full Exam - General 1994 Cardiovascular auscultation of heart Overall: normal heart sounds 08/15/2015 None Full Exam - General 1994 Cardiovascular auscultation of heart Overall: no murmurs 08/15/2015 None Full Exam - General 1994 Abdomen abdominal exam Overall: no tenderness 08/15/2015 None Full Exam - General 1994 Abdomen abdominal exam Overall: normal bowel sounds 08/15/2015 None Full Exam - General 1994 Musculoskeletal gait and station Overall: normal gait 08/15/2015 None Full Exam - General 1994 Musculoskeletal gait and station Overall: normal station 08/15/2015 None Full Exam - General 1994 Musculoskeletal head and neck Overall: head atraumatic 08/15/2015 None Full Exam - General 1994 Musculoskeletal head and neck Overall: cervical spine benign 08/15/2015 None Full Exam - General 1994 Integument inspection of skin Overall: no rash, lesions 08/15/2015 None Full Exam - General 1994 Psychiatric orientation/consciousness Overall: oriented to person, place and time 08/15/2015 None Full Exam - General 1994 Psychiatric behavior/psychomotor activity Overall: no tics, normal psychomotor activity 08/15/2015 None Full Exam - General 1994 Psychiatric mood and affect Overall: normal mood and affect 08/15/2015 None Full Exam - General 1994 Psychiatric appearance Overall: well-groomed, good eye contact 08/15/2015 None Full Exam - ENT Constitutional general appearance Overall: well nourished 06/13/2015 None Full Exam - ENT Constitutional general appearance Overall: well developed 06/13/2015 None Full Exam - ENT Constitutional general appearance Overall: in no acute distress 06/13/2015 None Full Exam - ENT Ears/Nose/Throat otoscopic exam Overall: external auditory canals normal 06/13/2015 None Full Exam - ENT Ears/Nose/Throat oropharynx Overall: oral mucosa clear 06/13/2015 None Full Exam - ENT Face and Head palpation Left maxillary sinus: tender 06/13/2015 None Full Exam - ENT Face and Head palpation Right maxillary sinus: tender 06/13/2015 None Full Exam - ENT Respiratory inspection Overall: no retractions 06/13/2015 None Full Exam - ENT Respiratory inspection Overall: normal rate 06/13/2015 None Full Exam - ENT Respiratory auscultation Overall: breath sounds clear bilaterally 06/13/2015 None Full Exam - ENT Cardiovascular auscultation of heart Overall: regular rate 06/13/2015 None Full Exam - ENT Cardiovascular auscultation of heart Overall: normal heart sounds 06/13/2015 None Full Exam - ENT Lymphatic palpation of lymph nodes Overall: anterior cervical chain benign 06/13/2015 None Full Exam - ENT Lymphatic palpation of lymph nodes Overall: posterior cervical chain benign 06/13/2015 None Full Exam - ENT Integument inspection of skin Overall: no rash, lesions 06/13/2015 None Full Exam - ENT Neurologic orientation Overall: oriented to person, place and time 06/13/2015 None Full Exam - ENT Ears/Nose/Throat otoscopic exam Right tympanic membrane: erythematous 06/13/2015 None Full Exam - ENT Constitutional general appearance Overall: well nourished 06/07/2015 None Full Exam - ENT Constitutional general appearance Overall: well developed 06/07/2015 None Full Exam - ENT Constitutional general appearance Overall: in no acute distress 06/07/2015 None Full Exam - ENT Neurologic orientation Overall: oriented to person, place and time 06/07/2015 None Full Exam - ENT Integument inspection of skin Overall: no rash, lesions 06/07/2015 None Full Exam - ENT Lymphatic palpation of lymph nodes Overall: anterior cervical chain benign 06/07/2015 None Full Exam - ENT Lymphatic palpation of lymph nodes Overall: posterior cervical chain benign 06/07/2015 None Full Exam - ENT Cardiovascular auscultation of heart Overall: regular rate 06/07/2015 None Full Exam - ENT Cardiovascular auscultation of heart Overall: normal heart sounds 06/07/2015 None Full Exam - ENT Respiratory auscultation Overall: breath sounds clear bilaterally 06/07/2015 None Full Exam - ENT Respiratory inspection Overall: no retractions 06/07/2015 None Full Exam - ENT Respiratory inspection Overall: normal rate 06/07/2015 None Full Exam - ENT Ears/Nose/Throat otoscopic exam Overall: external auditory canals normal 06/07/2015 None Full Exam - ENT Ears/Nose/Throat otoscopic exam Overall: tympanic membranes normal 06/07/2015 None Full Exam - ENT Ears/Nose/Throat oropharynx Overall: oral mucosa clear 06/07/2015 None Full Exam - ENT Face and Head palpation Left maxillary sinus: tender 06/07/2015 None Full Exam - ENT Face and Head palpation Right maxillary sinus: tender 06/07/2015 None Full Exam - General 1994 Constitutional general appearance Overall: well nourished 03/13/2015 None Full Exam - General 1994 Constitutional general appearance Overall: well developed 03/13/2015 None Full Exam - General 1994 Constitutional general appearance Overall: in no acute distress 03/13/2015 None Full Exam - General 1994 Eyes pupils and irises Overall: pupils equal, round, reactive to light and accomodation 03/13/2015 None Full Exam - General 1994 Eyes conjunctiva/eyelids Overall: conjunctiva clear 03/13/2015 None Full Exam - General 1994 Eyes conjunctiva/eyelids Overall: eyelids normal 03/13/2015 None Full Exam - General 1994 Eyes conjunctiva/eyelids Overall: cornea clear 03/13/2015 None Full Exam - General 1994 Ears/Nose/Throat oral cavity/pharynx/larynx Overall: oropharyngeal mucosa clear 03/13/2015 None Full Exam - General 1994 Ears/Nose/Throat oral cavity/pharynx/larynx Overall: no masses 03/13/2015 None Full Exam - General 1994 Ears/Nose/Throat oral cavity/pharynx/larynx Overall: oral mucosa clear 03/13/2015 None Full Exam - General 1994 Ears/Nose/Throat lips/teeth/gingiva Overall: benign gingiva 03/13/2015 None Full Exam - General 1994 Ears/Nose/Throat lips/teeth/gingiva Overall: no masses 03/13/2015 None Full Exam - General 1994 Ears/Nose/Throat lips/teeth/gingiva Overall: normal dentition 03/13/2015 None Full Exam - General 1994 Ears/Nose/Throat lips/teeth/gingiva Overall: benign lips 03/13/2015 None Full Exam - General 1994 Ears/Nose/Throat external nose Overall: benign appearance 03/13/2015 None Full Exam - General 1994 Ears/Nose/Throat external nose Overall: non-tender 03/13/2015 None Full Exam - General 1994 Ears/Nose/Throat external nose Overall: no masses 03/13/2015 None Full Exam - General 1994 Ears/Nose/Throat otoscopic exam Overall: tympanic membranes clear 03/13/2015 None Full Exam - General 1994 Ears/Nose/Throat otoscopic exam Overall: external auditory canals clear 03/13/2015 None Full Exam - General 1994 Ears/Nose/Throat external ear Overall: no masses 03/13/2015 None Full Exam - General 1994 Ears/Nose/Throat external ear Overall: normal appearance 03/13/2015 None Full Exam - General 1994 Ears/Nose/Throat external ear Overall: normal mastoids 03/13/2015 None Full Exam - General 1994 Respiratory respiratory effort/rhythm Overall: normal rate 03/13/2015 None Full Exam - General 1994 Respiratory respiratory effort/rhythm Overall: no retractions 03/13/2015 None Full Exam - General 1994 Respiratory auscultation Overall: breath sounds clear bilaterally 03/13/2015 None Full Exam - General 1994 Cardiovascular extremities Overall: no clubbing 03/13/2015 None Full Exam - General 1994 Cardiovascular auscultation of heart Overall: regular rate 03/13/2015 None Full Exam - General 1994 Cardiovascular auscultation of heart Overall: normal heart sounds 03/13/2015 None Full Exam - General 1994 Cardiovascular auscultation of heart Overall: no murmurs 03/13/2015 None Full Exam - General 1994 Abdomen abdominal exam Overall: no tenderness 03/13/2015 None Full Exam - General 1994 Abdomen abdominal exam Overall: normal bowel sounds 03/13/2015 None Full Exam - General 1994 Musculoskeletal head and neck Overall: cervical spine benign 03/13/2015 None Full Exam - General 1994 Musculoskeletal head and neck Overall: head atraumatic 03/13/2015 None Full Exam - General 1994 Musculoskeletal gait and station Overall: normal station 03/13/2015 None Full Exam - General 1994 Musculoskeletal gait and station Overall: normal gait 03/13/2015 None Full Exam - General 1994 Integument inspection of skin Overall: no rash, lesions 03/13/2015 None Full Exam - General 1994 Psychiatric orientation/consciousness Overall: oriented to person, place and time 03/13/2015 None Full Exam - General 1994 Psychiatric behavior/psychomotor activity Overall: no tics, normal psychomotor activity 03/13/2015 None Full Exam - General 1994 Psychiatric mood and affect Overall: normal mood and affect 03/13/2015 None Full Exam - General 1994 Psychiatric appearance Overall: well-groomed, good eye contact 03/13/2015 None Full Exam - General 1994 Constitutional general appearance Overall: well developed 12/07/2014 None Full Exam - General 1994 Constitutional general appearance Overall: in no acute distress 12/07/2014 None Full Exam - General 1994 Constitutional general appearance Overall: well nourished 12/07/2014 None Full Exam - General 1994 Eyes conjunctiva/eyelids Overall: conjunctiva clear 12/07/2014 None Full Exam - General 1994 Eyes conjunctiva/eyelids Overall: cornea clear 12/07/2014 None Full Exam - General 1994 Eyes conjunctiva/eyelids Overall: eyelids normal 12/07/2014 None Full Exam - General 1994 Eyes pupils and irises Overall: pupils equal, round, reactive to light and accomodation 12/07/2014 None Full Exam - General 1994 Ears/Nose/Throat otoscopic exam Overall: external auditory canals clear 12/07/2014 None Full Exam - General 1994 Ears/Nose/Throat otoscopic exam Overall: tympanic membranes clear 12/07/2014 None Full Exam - General 1994 Respiratory auscultation Overall: breath sounds clear bilaterally 12/07/2014 None Full Exam - General 1994 Cardiovascular auscultation of heart Overall: regular rate 12/07/2014 None Full Exam - General 1994 Cardiovascular auscultation of heart Overall: normal heart sounds 12/07/2014 None Full Exam - General 1994 Abdomen abdominal exam Overall: no tenderness 12/07/2014 None Full Exam - General 1994 Abdomen abdominal exam Overall: normal bowel sounds 12/07/2014 None Full Exam - General 1994 Psychiatric orientation/consciousness Overall: oriented to person, place and time 12/07/2014 None Full Exam - General 1994 Ears/Nose/Throat internal nose Sinus tenderness: left frontal 12/07/2014 None Full Exam - General 1994 Ears/Nose/Throat internal nose Sinus tenderness: right frontal 12/07/2014 None Full Exam - General 1994 Ears/Nose/Throat internal nose Sinus tenderness: left maxillary 12/07/2014 None Full Exam - General 1994 Ears/Nose/Throat internal nose Sinus tenderness: right maxillary 12/07/2014 None Full Exam - General 1994 Ears/Nose/Throat internal nose Turbinates: boggy 12/07/2014 None Full Exam - General 1994 Ears/Nose/Throat internal nose Nasal cavity: mucosal exudate 12/07/2014 None Full Exam - General 1994 Constitutional general appearance Development: well developed 09/07/2014 None Full Exam - General 1994 Constitutional general appearance Development: appears stated age 0709/07/2014 None Full Exam - General 1994 Constitutional general appearance Hygiene/Attention to Grooming: good hygiene 09/07/2014 None Full Exam - General 1994 Eyes conjunctiva/eyelids Overall: conjunctiva clear 09/07/2014 None Full Exam - General 1994 Eyes conjunctiva/eyelids Overall: cornea clear 09/07/2014 None Full Exam - General 1994 Eyes conjunctiva/eyelids Overall: eyelids normal 09/07/2014 None Full Exam - General 1994 Eyes pupils and irises Overall: pupils equal, round, reactive to light and accomodation 09/07/2014 None Full Exam - General 1994 Ears/Nose/Throat otoscopic exam Overall: external auditory canals clear 09/07/2014 None Full Exam - General 1994 Ears/Nose/Throat otoscopic exam Overall: tympanic membranes clear 09/07/2014 None Full Exam - General 1994 Ears/Nose/Throat lips/teeth/gingiva Overall: benign lips 09/07/2014 None Full Exam - General 1994 Ears/Nose/Throat lips/teeth/gingiva Overall: normal dentition 09/07/2014 None Full Exam - General 1994 Ears/Nose/Throat oral cavity/pharynx/larynx Overall: oral mucosa clear 09/07/2014 None Full Exam - General 1994 Ears/Nose/Throat oral cavity/pharynx/larynx Overall: oropharyngeal mucosa clear 09/07/2014 None Full Exam - General 1994 Ears/Nose/Throat oral cavity/pharynx/larynx Overall: hypopharynx benign 09/07/2014 None Full Exam - General 1994 Ears/Nose/Throat oral cavity/pharynx/larynx Overall: no masses 09/07/2014 None Full Exam - General 1994 Respiratory auscultation Overall: breath sounds clear bilaterally 09/07/2014 None Full Exam - General 1994 Respiratory respiratory effort/rhythm Overall: no retractions 09/07/2014 None Full Exam - General 1994 Respiratory respiratory effort/rhythm Overall: normal rate 09/07/2014 None Full Exam - General 1994 Cardiovascular extremities Overall: no clubbing 09/07/2014 None Full Exam - General 1994 Cardiovascular auscultation of heart Overall: regular rate 09/07/2014 None Full Exam - General 1994 Cardiovascular auscultation of heart Overall: normal heart sounds 09/07/2014 None Full Exam - General 1994 Abdomen abdominal exam Overall: no tenderness 09/07/2014 None Full Exam - General 1994 Abdomen abdominal exam Overall: normal bowel sounds 09/07/2014 None Full Exam - General 1994 Lymphatic neck nodes Overall: anterior cervical chain benign 09/07/2014 None Full Exam - General 1994 Lymphatic neck nodes Overall: posterior cervical chain benign 09/07/2014 None Full Exam - General 1994 Musculoskeletal spine, ribs and pelvis Overall: spine benign 09/07/2014 None Full Exam - General 1994 Musculoskeletal spine, ribs and pelvis Overall: sacroiliac joint benign 09/07/2014 None Full Exam - General 1994 Musculoskeletal spine, ribs and pelvis Overall: good posture 09/07/2014 None Full Exam - General 1994 Musculoskeletal head and neck Overall: head atraumatic 09/07/2014 None Full Exam - General 1994 Musculoskeletal head and neck Overall: cervical spine benign 09/07/2014 None Full Exam - General 1994 Integument inspection of skin Overall: few scattered moles, no gross abnormalities 09/07/2014 None Full Exam - General 1994 Psychiatric orientation/consciousness Overall: oriented to person, place and time 09/07/2014 None Full Exam - General 1994 Psychiatric mood and affect Overall: normal mood and affect 09/07/2014 None Full Exam - General 1994 Constitutional general appearance Development: well developed 08/07/2014 None Full Exam - General 1994 Constitutional general appearance Development: appears stated age 0608/07/2014 None Full Exam - General 1994 Constitutional general appearance Hygiene/Attention to Grooming: good hygiene 08/07/2014 None Full Exam - General 1994 Eyes conjunctiva/eyelids Overall: conjunctiva clear 08/07/2014 None Full Exam - General 1994 Eyes conjunctiva/eyelids Overall: cornea clear 08/07/2014 None Full Exam - General 1994 Eyes conjunctiva/eyelids Overall: eyelids normal 08/07/2014 None Full Exam - General 1994 Eyes pupils and irises Overall: pupils equal, round, reactive to light and accomodation 08/07/2014 None Full Exam - General 1994 Ears/Nose/Throat otoscopic exam Overall: external auditory canals clear 08/07/2014 None Full Exam - General 1994 Ears/Nose/Throat otoscopic exam Overall: tympanic membranes clear 08/07/2014 None Full Exam - General 1994 Ears/Nose/Throat lips/teeth/gingiva Overall: benign lips 08/07/2014 None Full Exam - General 1994 Ears/Nose/Throat lips/teeth/gingiva Overall: normal dentition 08/07/2014 None Full Exam - General 1994 Ears/Nose/Throat oral cavity/pharynx/larynx Overall: oral mucosa clear 08/07/2014 None Full Exam - General 1994 Ears/Nose/Throat oral cavity/pharynx/larynx Overall: oropharyngeal mucosa clear 08/07/2014 None Full Exam - General 1994 Ears/Nose/Throat oral cavity/pharynx/larynx Overall: hypopharynx benign 08/07/2014 None Full Exam - General 1994 Ears/Nose/Throat oral cavity/pharynx/larynx Overall: no masses 08/07/2014 None Full Exam - General 1994 Respiratory auscultation Overall: breath sounds clear bilaterally 08/07/2014 None Full Exam - General 1994 Respiratory respiratory effort/rhythm Overall: no retractions 08/07/2014 None Full Exam - General 1994 Respiratory respiratory effort/rhythm Overall: normal rate 08/07/2014 None Full Exam - General 1994 Cardiovascular extremities Overall: no clubbing 08/07/2014 None Full Exam - General 1994 Cardiovascular auscultation of heart Overall: regular rate 08/07/2014 None Full Exam - General 1994 Cardiovascular auscultation of heart Overall: normal heart sounds 08/07/2014 None Full Exam - General 1994 Abdomen abdominal exam Overall: no tenderness 08/07/2014 None Full Exam - General 1994 Abdomen abdominal exam Overall: normal bowel sounds 08/07/2014 None Full Exam - General 1994 Lymphatic neck nodes Overall: anterior cervical chain benign 08/07/2014 None Full Exam - General 1994 Lymphatic neck nodes Overall: posterior cervical chain benign 08/07/2014 None Full Exam - General 1994 Musculoskeletal spine, ribs and pelvis Overall: spine benign 08/07/2014 None Full Exam - General 1994 Musculoskeletal spine, ribs and pelvis Overall: sacroiliac joint benign 08/07/2014 None Full Exam - General 1994 Musculoskeletal spine, ribs and pelvis Overall: good posture 08/07/2014 None Full Exam - General 1994 Musculoskeletal head and neck Overall: head atraumatic 08/07/2014 None Full Exam - General 1994 Musculoskeletal head and neck Overall: cervical spine benign 08/07/2014 None Full Exam - General 1994 Integument inspection of skin Overall: few scattered moles, no gross abnormalities 08/07/2014 None Full Exam - General 1994 Psychiatric orientation/consciousness Overall: oriented to person, place and time 08/07/2014 None Full Exam - General 1994 Psychiatric mood and affect Overall: normal mood and affect 08/07/2014 None Procedures Procedure Codes Date TRIAMCINOLONE ACET INJ NOS CPT-4: J3301 11/30/2017 TRIAMCINOLONE ACET INJ NOS CPT-4: J3301 05/28/2017 ROCEPHIN, PER 250 MG CPT- 4: J0696 05/28/2017 THER/PROPH/DIAG INJ SC/IM CPT-4: 00660 05/19/2017 KETOROLAC TROMETHAMINE INJ CPT-4: J1885 05/19/2017 TRIAMCINOLONE ACET INJ NOS CPT-4: J3301 03/26/2016 TRIAMCINOLONE ACET INJ NOS CPT-4: J3301 06/07/2015 THER/PROPH/DIAG INJ SC/IM CPT-4: 70021 12/07/2014 TRIAMCINOLONE ACET INJ NOS CPT-4: J3301 12/07/2014 Vital Signs Date Vital 09/17/2018 Blood Pressure 1: 132/68 Code: 8480-6 BMI: 31.3 Code: 36283-7 Heart Rate 1: 88 bpm Height: 5'7" SpO2: 99% Weight: 200 lbs 07/09/2018 Blood Pressure 1: 138/82 Code: 8480-6 BMI: 31.6 Code: 44714-7 Heart Rate 1: 82 bpm Height: 5'7" SpO2: 96% Weight: 202 lbs 06/04/2018 Blood Pressure 1: 144/76 Code: 8480-6 BMI: 32.0 Code: 95083-3 Heart Rate 1: 82 bpm Height: 5'7" SpO2: 96% Temperature: 36.5 (C) / 97.7 (F) Weight: 204 lbs 03/11/2018 Blood Pressure 1: 142/82 Code: 8480-6 BMI: 32.1 Code: 47228-8 Heart Rate 1: 87 bpm Height: 5'7" SpO2: 97% Weight: 205 lbs 02/17/2018 Blood Pressure 1: 132/76 Code: 8480-6 BMI: 33.5 Code: 10386-5 Heart Rate 1: 92 bpm Height: 5'7" SpO2: 98% Weight: 214 lbs 12/21/2017 Blood Pressure 1: 154/78 Code: 8480-6 BMI: 33.5 Code: 32450-6 Heart Rate 1: 93 bpm Height: 5'7" SpO2: 96% Weight: 214 lbs 11/30/2017 Blood Pressure 1: 148/88 Code: 8480-6 BMI: 33.5 Code: 11508-1 Heart Rate 1: 80 bpm Height: 5'7" SpO2: 97% Temperature: 36.9 (C) / 98.5 (F) Weight: 214 lbs 05/28/2017 Blood Pressure 1: 128/70 Code: 8480-6 BMI: 31.3 Code: 25126-6 Heart Rate 1: 103 bpm Height: 5'7" SpO2: 98% Temperature: 36.7 (C) / 98.1 (F) Weight: 200 lbs 05/19/2017 Blood Pressure 1: 150/72 Code: 8480-6 04/16/2017 Blood Pressure 1: 146/88 Code: 8480-6 BMI: 31.3 Code: 11481-2 Heart Rate 1: 96 bpm Height: 5'7" SpO2: 94% Temperature: 37.2 (C) / 99.0 (F) Weight: 200 lbs 02/10/2017 Blood Pressure 1: 132/72 Code: 8480-6 BMI: 31.3 Code: 08474-5 Heart Rate 1: 99 bpm Height: 5'7" SpO2: 97% Weight: 200 lbs 02/02/2017 Blood Pressure 1: 140/68 Code: 8480-6 BMI: 31.4 Code: 74478-2 Heart Rate 1: 82 bpm Height: 5'7" SpO2: 97% Weight: 200 lbs 8 oz 01/27/2017 Blood Pressure 1: 142/80 Code: 8480-6 BMI: 32.2 Code: 46091-2 Height: 5'7" Temperature: 37.2 (C) / 98.9 (F) Weight: 205 lbs 8 oz 11/07/2016 Blood Pressure 1: 148/82 Code: 8480-6 BMI: 32.7 Code: 70868-9 Heart Rate 1: 106 bpm Height: 5'7" SpO2: 97% Weight: 209 lbs 03/26/2016 Blood Pressure 1: 140/86 Code: 8480-6 Heart Rate 1: 90 bpm Height: SpO2: 97% Weight: 12/13/2015 Blood Pressure 1: 132/72 Code: 8480-6 BMI: 31.2 Code: 50736-6 Heart Rate 1: 84 bpm Height: 5'7" SpO2: 98% Weight: 199 lbs 08/15/2015 Blood Pressure 1: 138/88 Code: 8480-6 BMI: 32.1 Code: 45484-2 Heart Rate 1: 94 bpm Height: 5'7" SpO2: 97% Weight: 205 lbs 06/13/2015 Blood Pressure 1: 188/88 Code: 8480-6 Blood Pressure 1: 146/78 Code: 8480-6 BMI: 32.6 Code: 86635-0 Heart Rate 1: 97 bpm Height: 5'7" SpO2: 98% Weight: 208 lbs 06/07/2015 Blood Pressure 1: 128/82 Code: 8480-6 BMI: 32.4 Code: 87687-0 Heart Rate 1: 80 bpm Height: 5'7" SpO2: 99% Weight: 207 lbs 03/13/2015 Blood Pressure 1: 124/70 Code: 8480-6 BMI: 31.6 Code: 79629-2 Heart Rate 1: 103 bpm Height: 5'7" Respiratory Rate: 18 bpm SpO2: 97% Temperature: 36.6 (C) / 97.8 (F) Weight: 202 lbs 12/07/2014 Blood Pressure 1: 140/80 Code: 8480-6 BMI: 32.3 Code: 43425-3 Heart Rate 1: 97 bpm Height: 5'7" SpO2: 99% Weight: 206 lbs 09/07/2014 Blood Pressure 1: 132/78 Code: 8480-6 BMI: 31.2 Code: 03780-2 Heart Rate 1: 92 bpm Height: 5'7" Weight: 199 lbs 08/07/2014 Blood Pressure 1: 140/84 Code: 8480-6 Heart Rate 1: 96 bpm Height: 5'7" Weight: Functional Status No Functional Status data History of Present Illness Symptom Name Status Result Effective Date Notes Quality insulin dependent 09/17/2018 None Quality chronic 09/17/2018 None Severity severe 09/17/2018 None Alleviating Factors insulin 09/17/2018 None Exacerbating Factors diet 09/17/2018 None Nutrition ADA diet 09/17/2018 trying to avoid carbs -eggs and jordan for breakfast, salad or sandwich for lunch, supper is sometimes mazzios sandwiches, spaghetti frequently, quesadillas, hot ham and cheese from [employer] Pertinent Findings Denies dizziness 09/17/2018 None Pertinent Findings Denies dyspnea 09/17/2018 None Pertinent Findings Denies nausea 09/17/2018 None Pertinent Findings numbness 09/17/2018 None Pertinent Findings tingling 09/17/2018 None Onset of Symptom onset as an adult 09/17/2018 None Test results HgbA1c level 12.1 09/17/2018 None Glucose monitoring occasional glucose testing 09/17/2018 None Quality insulin dependent 07/09/2018 None Quality chronic 07/09/2018 None Severity severe 07/09/2018 None Alleviating Factors insulin 07/09/2018 None Exacerbating Factors diet 07/09/2018 None Nutrition ADA diet 07/09/2018 trying to avoid carbs -eggs and jordan for breakfast, salad or sandwich for lunch, supper is sometimes mazzios sandwiches, spaghetti frequently, quesadillas, hot ham and cheese from [employer] Pertinent Findings Denies dizziness 07/09/2018 None Pertinent Findings Denies dyspnea 07/09/2018 None Pertinent Findings Denies nausea 07/09/2018 None Pertinent Findings numbness 07/09/2018 None Pertinent Findings tingling 07/09/2018 None Onset of Symptom onset as an adult 07/09/2018 None Onset and Resolution sudden in onset 07/09/2018 None Onset of Symptom 3 days ago 07/09/2018 None Severity mild 07/09/2018 None Frequency of Episodes increasing 07/09/2018 None Length of Episodes 3 days 07/09/2018 None Significant Medical Conditions allergic rhinitis 07/09/2018 None Triggers Denies allergens 07/09/2018 None Pertinent Findings Denies facial pain 07/09/2018 None Pertinent Findings Denies fever 07/09/2018 None Location on both sides 07/09/2018 None Quality acute 07/09/2018 None Glucose monitoring occasional glucose testing 07/09/2018 None Glucose monitoring daily 07/09/2018 None Quality insulin dependent 06/04/2018 None Quality chronic 06/04/2018 None Severity severe 06/04/2018 None Alleviating Factors insulin 06/04/2018 None Exacerbating Factors diet 06/04/2018 None Pertinent Findings Denies dizziness 06/04/2018 None Pertinent Findings Denies dyspnea 06/04/2018 None Pertinent Findings Denies nausea 06/04/2018 None Pertinent Findings numbness 06/04/2018 None Pertinent Findings tingling 06/04/2018 None Onset and Resolution sudden in onset 06/04/2018 None Onset of Symptom 3 days ago 06/04/2018 None Severity mild 06/04/2018 None Frequency of Episodes increasing 06/04/2018 None Length of Episodes 3 days 06/04/2018 None Significant Medical Conditions allergic rhinitis 06/04/2018 None Pertinent Findings Denies fever 06/04/2018 None Location on both sides 06/04/2018 None Quality acute 06/04/2018 None Triggers Denies allergens 06/04/2018 None Test results HgbA1c level 12.5 06/04/2018 None Onset of Symptom onset as an adult 06/04/2018 None Blood glucose levels greater than 120 06/04/2018 270s in the morning Glucose monitoring daily 06/04/2018 in the morning Nutrition ADA diet 06/04/2018 trying to avoid carbs -eggs and jordan for breakfast, salad or sandwich for lunch, supper is sometimes mazzios sandwiches, spaghetti frequently, quesadillas, hot ham and cheese from [employer] Pertinent Findings Denies facial pain 06/04/2018 None Test results HgbA1c level 11.3 03/11/2018 None Onset of Symptom during adulthood 03/11/2018 None Onset and Resolution gradual in onset 03/11/2018 None Exacerbating Factors diet 03/11/2018 None Quality decreased HDL 03/11/2018 None Quality increased cholesterol 03/11/2018 None Quality increased TG 03/11/2018 None Quality chronic 03/11/2018 None Quality insulin dependent 03/11/2018 None Severity severe 03/11/2018 None Alleviating Factors insulin 03/11/2018 None Exacerbating Factors diet 03/11/2018 None Glucose monitoring Denies daily 03/11/2018 or twice daily Test results Pt checking blood glucose at home, see scanned readings 03/11/2018 -Brought her meter Pertinent Findings Denies dizziness 03/11/2018 None Pertinent Findings Denies dyspnea 03/11/2018 None Pertinent Findings Denies nausea 03/11/2018 None Pertinent Findings numbness 03/11/2018 None Pertinent Findings tingling 03/11/2018 None Severity severe 03/11/2018 None Frequency of Episodes increasing 03/11/2018 None Significant Medical Conditions diabetes 03/11/2018 None Significant Medications statin 03/11/2018 None Triggers no known associated factors 03/11/2018 None Location on the left 02/17/2018 None Location on the right 02/17/2018 None Quality numbness 02/17/2018 None Quality constant 02/17/2018 None Quality throbbing 02/17/2018 None Quality worsening 02/17/2018 None Onset and Resolution gradual in onset 02/17/2018 None Onset of Symptom 1 months ago 02/17/2018 None Frequency of Episodes daily 02/17/2018 None Pertinent Findings numbness 02/17/2018 None Pertinent Findings tingling 02/17/2018 None shoulder pain Quality aching 12/21/2017 None shoulder pain Quality constant 12/21/2017 None shoulder pain Onset and Resolution sudden in onset 12/21/2017 None shoulder pain Onset and Resolution ongoing 12/21/2017 None shoulder pain Onset of Symptom 2 weeks ago 12/21/2017 None shoulder pain Frequency of Episodes daily 12/21/2017 None shoulder pain Limitation on Activities moderately limits activities 12/21/2017 None rash Location-Major on the upper body 12/21/2017 None rash Location-Major on the lower body 12/21/2017 None rash Color red 12/21/2017 None rash Onset and Resolution sudden in onset 12/21/2017 None rash Onset of Symptom 1 month ago 12/21/2017 None sinus congestion Location frontal sinuses 11/30/2017 None sinus congestion Quality constant 11/30/2017 None sinus congestion Quality fullness 11/30/2017 None sinus congestion Quality pain 11/30/2017 None sinus congestion Quality pressure 11/30/2017 None sinus congestion Onset and Resolution sudden in onset 11/30/2017 None sinus congestion Onset of Symptom 1 weeks ago 11/30/2017 None sinus congestion Frequency of Episodes daily 11/30/2017 None sore throat Location diffusely 11/30/2017 None sore throat Quality aching 11/30/2017 None sore throat Quality constant 11/30/2017 None sore throat Quality burning 11/30/2017 None sore throat Onset and Resolution sudden in onset 11/30/2017 None sore throat Onset of Symptom 1 weeks ago 11/30/2017 None earache Location both ears 11/30/2017 None earache Onset and Resolution sudden in onset 11/30/2017 None earache Onset of Symptom 1 weeks ago 11/30/2017 None edema Onset and Resolution gradual in onset 11/30/2017 None edema Onset of Symptom 1 months ago 11/30/2017 None edema Frequency of Episodes daily 11/30/2017 None edema Location on both ankles 11/30/2017 None edema Quality constant 11/30/2017 None headache Location diffusely 05/28/2017 None headache Quality constant 05/28/2017 None headache Onset and Resolution sudden in onset 05/28/2017 None headache Onset of Symptom 1 days ago 05/28/2017 None sinus congestion Quality constant 05/28/2017 None sinus congestion Quality fullness 05/28/2017 None sinus congestion Onset and Resolution ongoing 05/28/2017 None headache Location diffusely 05/19/2017 None headache Quality constant 05/19/2017 None headache Onset and Resolution sudden in onset 05/19/2017 None headache Onset of Symptom 1 days ago 05/19/2017 None cough Quality acute 04/16/2017 None cough Onset and Resolution sudden in onset 04/16/2017 None cough Location in the throat 04/16/2017 None cough Onset of Symptom 2 days ago 04/16/2017 None cough Pertinent Findings Denies chills 04/16/2017 None cough Pertinent Findings Denies dyspnea 04/16/2017 None cough Pertinent Findings fever 04/16/2017 None cough Pertinent Findings hoarseness 04/16/2017 None cough Pertinent Findings ill contacts 04/16/2017 None cough Pertinent Findings muscle aches 04/16/2017 None cough Pertinent Findings Denies nasal congestion 04/16/2017 None cough Pertinent Findings Denies purulent sputum 04/16/2017 None cough Pertinent Findings Denies post nasal drip 04/16/2017 None sore throat Location diffusely 04/16/2017 None sore throat Quality aching 04/16/2017 None sore throat Quality acute 04/16/2017 None sore throat Onset and Resolution sudden in onset 04/16/2017 None sore throat Onset of Symptom 2 days ago 04/16/2017 None sore throat Pertinent Findings cough 04/16/2017 None sore throat Pertinent Findings decreased energy level 04/16/2017 None sore throat Pertinent Findings fever 04/16/2017 None sore throat Pertinent Findings hoarseness 04/16/2017 None sore throat Pertinent Findings ill contacts 04/16/2017 None sore throat Pertinent Findings lymphadenopathy 04/16/2017 None sore throat Alleviating Factors rest 04/16/2017 None sore throat Exacerbating Factors activity 04/16/2017 None flank pain Location on the left 02/10/2017 None flank pain Quality constant 02/10/2017 None flank pain Quality stabbing 02/10/2017 None flank pain Quality aching 02/10/2017 None flank pain Onset and Resolution sudden in onset 02/10/2017 None flank pain Onset of Symptom 2 days ago 02/10/2017 None back pain Location in the midline of in the middle back area 02/02/2017 None back pain Quality acute 02/02/2017 None back pain Quality intermittent 02/02/2017 None back pain Quality sharp 02/02/2017 None back pain Onset and Resolution sudden in onset 02/02/2017 None back pain Onset of Symptom hours ago 02/02/2017 None back pain Triggers exertion 02/02/2017 (breathing) back pain Mechanism of injury unknown 02/02/2017 None Hospital Follow Up Quality acute illness 01/27/2017 None Hospital Follow Up Pertinent Findings pain 01/27/2017 None Hospital Follow Up Pertinent Findings Other: _ 01/27/2017 None Hospital Follow Up Exacerbating Factors activity 01/27/2017 None Hospital Follow Up Exacerbating Factors eating 01/27/2017 None hypertension Onset and Resolution ongoing 11/07/2016 None hypertension Onset of Symptom during adulthood 11/07/2016 None hypertension Blood Pressure Values not checking blood pressure at home 11/07/2016 None hypertension Alleviating Factors medication 11/07/2016 None hypertension Pertinent Findings Denies dyspnea 11/07/2016 None diabetes mellitus Alleviating Factors medication 11/07/2016 None diabetes mellitus Exacerbating Factors diet 11/07/2016 None diabetes mellitus Pertinent Findings Denies nausea 11/07/2016 None hypothyroid Onset and Resolution ongoing 11/07/2016 None hypothyroid Alleviating Factors medication 11/07/2016 None skin lesion Onset and Resolution sudden in onset 11/07/2016 None skin lesion Onset of Symptom 2 months ago 11/07/2016 None skin lesion Location on the forehead 11/07/2016 None skin lesion Quality enlarging 11/07/2016 None skin lesion Quality firm 11/07/2016 None skin lesion Quality raised 11/07/2016 None hypertension Pertinent Findings Denies edema 11/07/2016 None arthritis Alleviating Factors NSAID's 11/07/2016 None arthritis Exacerbating Factors activity 11/07/2016 None arthritis Location hips 11/07/2016 None arthritis Location on the left 11/07/2016 None arthritis Pertinent Findings Denies fever 11/07/2016 None cough Location in the lung 03/26/2016 None cough Quality productive 03/26/2016 None cough Onset and Resolution sudden in onset 03/26/2016 None cough Pertinent Findings Denies dyspnea 03/26/2016 None cough Pertinent Findings Denies fever 03/26/2016 None earache Location both ears 03/26/2016 None earache Quality acute 03/26/2016 None sinus congestion Location maxillary sinuses 03/26/2016 None sinus congestion Location on both sides 03/26/2016 None sinus congestion Quality acute 03/26/2016 None sinus congestion Onset and Resolution sudden in onset 03/26/2016 None sinus congestion Onset of Symptom 2-3 days ago 03/26/2016 None sinus congestion Pertinent Findings Denies fever 03/26/2016 None sinus congestion Pertinent Findings cough 03/26/2016 None hypertension Onset and Resolution ongoing 12/13/2015 None hypertension Onset of Symptom during adulthood 12/13/2015 None hypertension Blood Pressure Values not checking blood pressure at home 12/13/2015 None hypertension Alleviating Factors medication 12/13/2015 None hypertension Pertinent Findings dizziness 12/13/2015 off and on hypertension Pertinent Findings Denies dyspnea 12/13/2015 None hypertension Pertinent Findings Denies edema 12/13/2015 None diabetes mellitus Test results Pt checking blood glucose readings, did not bring results to clinic 12/13/2015 None diabetes mellitus Glucose monitoring occasional glucose testing 12/13/2015 None diabetes mellitus Alleviating Factors medication 12/13/2015 None diabetes mellitus Exacerbating Factors diet 12/13/2015 None diabetes mellitus Pertinent Findings Denies nausea 12/13/2015 None hypothyroid Onset and Resolution ongoing 12/13/2015 None hypothyroid Alleviating Factors medication 12/13/2015 None earache Location left ear 12/13/2015 None earache Quality acute 12/13/2015 None earache Triggers allergies 12/13/2015 None Hospital Follow Up _ Other: headache and dizziness 08/15/2015 None Hospital Follow Up Quality acute 08/15/2015 None Hospital Follow Up Onset of Symptom 8 days ago 08/15/2015 None Hospital Follow Up Onset and Resolution resolved 08/15/2015 None earache Location both ears 06/13/2015 None earache Quality acute 06/13/2015 None earache Onset and Resolution ongoing 06/13/2015 None earache Severity mild 06/13/2015 None earache Frequency of Episodes increasing 06/13/2015 None earache Significant Medical Conditions allergic rhinitis 06/13/2015 None earache Triggers weather change 06/13/2015 None sinus congestion Onset of Symptom 1 weeks ago 06/13/2015 None cough Location in the throat 06/13/2015 None cough Quality dry 06/13/2015 None cough Onset and Resolution sudden in onset 06/13/2015 None cough Frequency of Episodes daily 06/13/2015 None earache Location both ears 06/07/2015 None earache Onset of Symptom 3 days ago 06/07/2015 None earache Quality acute 06/07/2015 None earache Onset and Resolution ongoing 06/07/2015 None earache Severity mild 06/07/2015 None earache Frequency of Episodes increasing 06/07/2015 None earache Significant Medical Conditions allergic rhinitis 06/07/2015 None earache Triggers weather change 06/07/2015 None hypertension Quality chronic 03/13/2015 None hypertension Onset and Resolution ongoing 03/13/2015 None hypertension Onset of Symptom _ years ago 03/13/2015 None diabetes mellitus Quality non-insulin dependent 03/13/2015 None diabetes mellitus Severity moderate 03/13/2015 None diabetes mellitus Quality chronic 03/13/2015 None diabetes mellitus Test results Pt not checking blood glucose readings at home 03/13/2015 only checking once a week. last bs check was 160s dizziness Quality acute 03/13/2015 None dizziness Onset and Resolution sudden in onset 03/13/2015 None dizziness Onset of Symptom 2-3 months ago 03/13/2015 None diabetes mellitus Test results HgbA1c level 7.3 03/13/[address] Lucero headache Location diffusely 12/07/2014 None headache Quality aching 12/07/2014 None headache Quality dull 12/07/2014 None headache Quality constant 12/07/2014 None headache Onset and Resolution gradual in onset 12/07/2014 None headache Onset of Symptom 1 days ago 12/07/2014 None headache Pertinent Findings dizziness 12/07/2014 None headache Pertinent Findings facial pain 12/07/2014 None headache Pertinent Findings Denies nausea 12/07/2014 None headache Pertinent Findings Denies photophobia 12/07/2014 None headache Location diffusely 09/07/2014 improvement with shunt placement- 6-12-15- Dr Ruvalcaba in [place] did surgery headache Onset and Resolution ongoing 09/07/2014 None headache Onset of Symptom 20 years ago 09/07/2014 None headache Pertinent Findings Denies blurred vision 09/07/2014 None headache Pertinent Findings dizziness 09/07/2014 None diabetes mellitus Quality NIDDM 09/07/2014 None diabetes mellitus Pertinent Findings dizziness 09/07/2014 occasional diabetes mellitus Glucose monitoring occasional glucose testing 09/07/2014 None gait abnormality Onset and Resolution ongoing 09/07/2014 got better after shunt placement- but is unsteady since end of July using cane again. Reports that she sees Peg again in September- having incontinent episodes- was happening before shunt placement happening daily, now maybe twice per week headache Quality improving 09/07/2014 None diabetes mellitus Test results Pt checking blood glucose readings, did not bring results to clinic 09/07/2014 None diabetes mellitus Significant Medications insulin 09/07/2014 None diabetes mellitus Alleviating Factors medication 09/07/2014 None gait abnormality Quality chronic 09/07/2014 None gait abnormality Onset of Symptom during adulthood 09/07/2014 None gait abnormality Frequency of Episodes decreasing 09/07/2014 None headache Location diffusely 08/07/2014 None headache Onset and Resolution ongoing 08/07/2014 None headache Onset of Symptom 20 years ago 08/07/2014 None headache Pertinent Findings Denies blurred vision 08/07/2014 None headache Pertinent Findings dizziness 08/07/2014 None diabetes mellitus Quality NIDDM 08/07/2014 None diabetes mellitus Pertinent Findings dizziness 08/07/2014 None diabetes mellitus Glucose monitoring daily 08/07/2014 164 last night diabetes mellitus Test results Pt checking blood glucose readings, did not bring results to clinic 08/07/2014 she began taking them again. She is keeping them for endocrinoligist. Advance Directives No Advance Directive data Encounters Encounter Performer Location Codes Date ([id number]) [id number] EST. PATIENT, LEVEL IV Diagnosis: Type 2 diabetes mellitus with hyperglycemia[ICD10: E11.65] Diagnosis: Essential (primary) hypertension[ICD10: I10] [facility] CPT-4: 16524 09/17/2018 ([id number]) [id number] EST. PATIENT, LEVEL IV Diagnosis: Type 2 diabetes mellitus with hyperglycemia[ICD10: E11.65] Diagnosis: Essential (primary) hypertension[ICD10: I10] Diagnosis: Acute recurrent maxillary sinusitis[ICD10: J01.01] Kaylan Dunham MD, [facility] CPT-4: 30393 07/09/2018 ([id number]) [id number] EST. PATIENT, LEVEL IV Diagnosis: Type 2 diabetes mellitus with hyperglycemia[ICD10: E11.65] Diagnosis: Mixed hyperlipidemia[ICD10: E78.2] Diagnosis: Other allergic rhinitis[ICD10: J30.89] Kaylan Dunham MD, [facility] CPT-4: 06776 06/04/2018 ([id number]) 09545 EST. PATIENT, LEVEL IV Diagnosis: Type 2 diabetes mellitus with hyperglycemia[ICD10: E11.65] Diagnosis: Mixed hyperlipidemia[ICD10: E78.2] Diagnosis: Essential (primary) hypertension[ICD10: I10] Kaylan Dunham MD, [facility] CPT-4: 85496 03/11/2018 [id number] EST. PATIENT, LEVEL III Diagnosis: Paresthesia of skin[ICD10: R20.2] Aditi Dunham MD, [facility] CPT-4: 70537 02/17/2018 13580 EST. PATIENT, LEVEL IV Diagnosis: Pain in right shoulder[ICD10: M25.511] Diagnosis: Rash and other nonspecific skin eruption[ICD10: R21] Aditi Dunham MD, [facility] CPT-4: 90644 12/21/2017 [id number] EST. PATIENT, LEVEL IV Diagnosis: Other acute sinusitis[ICD10: J01.80] Diagnosis: Other allergic rhinitis[ICD10: J30.89] Diagnosis: Localized edema[ICD10: R60.0] Aditi Dunham MD, [facility] CPT-4: 92557 11/30/2017 ([id number]) 66560 EST. PATIENT, LEVEL III Diagnosis: Acute recurrent maxillary sinusitis[ICD10: J01.01] Diagnosis: Cough[ICD10: R05] Tavia Dunham MD, [facility] CPT-4: 70016 05/28/2017 ([id number]) 82523 EST. PATIENT, LEVEL III Diagnosis: Acute laryngopharyngitis[ICD10: J06.0] Diagnosis: Cough[ICD10: R05] Tavia Dunham MD, [facility] CPT-4: 96123 04/16/2017 [id number] EST. PATIENT, LEVEL III Diagnosis: Left lower quadrant pain[ICD10: R10.32] Aditi Dunham MD, [facility] CPT-4: 46377 02/10/2017 ([id number]) 74534 EST. PATIENT, LEVEL III Diagnosis: Pain in thoracic spine[ICD10: M54.6] Diagnosis: Other muscle spasm[ICD10: M62.838] Tavia Dunham MD, [facility] CPT- 4: 40727 02/02/2017 ([id number]) 43723 EST. PATIENT, LEVEL IV Diagnosis: Other acute pancreatitis without necrosis or infection[ICD10: K85.80] Diagnosis: Epigastric pain[ICD10: R10.13] Diagnosis: Type 2 diabetes mellitus without complications[ICD10: E11.9] Tavia Dunham MD, [facility] CPT-4: 95637 01/27/2017 [id number] EST. PATIENT, LEVEL IV Diagnosis: Essential (primary) hypertension[ICD10: I10] Diagnosis: Type 1 diabetes mellitus without complications[ICD10: E10.9] Diagnosis: Other specified hypothyroidism[ICD10: E03.8] Diagnosis: Bilateral primary osteoarthritis of hip[ICD10: M16.0] Diagnosis: Actinic keratosis[ICD10: L57.0] Aditi Dunham MD, [facility] CPT-4: 22686 11/07/2016 31590 EST. PATIENT, LEVEL III Diagnosis: Other acute sinusitis[ICD10: J01.80] Diagnosis: Other allergic rhinitis[ICD10: J30.89] Diagnosis: Cough[ICD10: R05] Aditi Dunham MD, [facility] CPT-4: 11227 03/26/2016 ([id number]) 72001 EST. PATIENT, LEVEL IV Diagnosis: Essential (primary) hypertension[ICD10: I10] Diagnosis: Pure hyperglyceridemia[ICD10: E78.1] Tavia Dunham MD, [facility] CPT- 4: 34947 12/13/2015 ([id number]) 47609 EST. PATIENT, LEVEL III Diagnosis: Essential (primary) hypertension[ICD10: I10] Diagnosis: (Idiopathic) normal pressure hydrocephalus[ICD10: G91.2] Tavia Dunham MD, [facility] CPT-4: 97628 08/15/2015 31690 EST. PATIENT, LEVEL III Diagnosis: Other acute nonsuppurative otitis media, right ear[ICD10: H65.191] Diagnosis: Acute upper respiratory infection, unspecified[ICD10: J06.9] Aditi Dunham MD, [facility] CPT-4: 65497 06/13/2015 ([id number]) 15981 EST. PATIENT, LEVEL III Diagnosis: Acute recurrent maxillary sinusitis[ICD10: J01.01] Diagnosis: Allergic rhinitis due to pollen[ICD10: J30.1] Kaylan Dunham MD, [facility] CPT-4: 56058 06/07/2015 ([id number]) 31837 EST. PATIENT, LEVEL IV Diagnosis: (Idiopathic) normal pressure hydrocephalus[ICD10: G91.2] Diagnosis: Essential (primary) hypertension[ICD10: I10] Diagnosis: Dizziness and giddiness[ICD10: R42] Diagnosis: Nausea with vomiting, unspecified[ICD10: R11.2] Kaylan Dunham MD, [facility] CPT-4: 18537 03/13/2015 [id number] EST. PATIENT, LEVEL III Diagnosis: Acute sinusitis, unspecified[ICD10: J01.90] Diagnosis: Allergic rhinitis, unspecified[ICD10: J30.9] Tavia Dunham MD, [facility] CPT-4: 69172 12/07/2014 [id number]) 39731 EST. PATIENT, LEVEL IV Diagnosis: ESSENTIAL HYPERTENSION[ICD9: 401.9] Diagnosis: DIABETES TYPE II[ICD9: 250.00] Diagnosis: NPH (normal pressure hydrocephalus)[ICD9: 331.5] Diagnosis: Hypertriglyceridemia[ICD9: 272.1] Kaylan Dunham MD, [facility] CPT- 4: 28740 09/07/2014 ([id number]) OFFICE/OUTPATIENT VISIT NEW Diagnosis: DIABETES TYPE II[ICD9: 250.00] Diagnosis: ESSENTIAL HYPERTENSION[ICD9: 401.9] Diagnosis: NPH (normal pressure hydrocephalus)[ICD9: 331.5] Diagnosis: Abnormal gait[ICD9: 781.2] Diagnosis: VITAMIN D DEFICIENCY[ICD9: 268.9] Tavia Dunham MD, [facility] CPT- 4: 63250 08/07/2014 Plan of Care Planned Activity Notes Codes Status Date Visit Plan: Diabetes Mellitus - Uncontrolled - I have recommended for the patient to have follow up labs prior to the next office visit. The patient has been instructed to continue with current medications as previously directed, continue with regular FSBS monitoring to assure continued control of diabetes. Pt to call for any acute concerns, complaints, or if the blood glucose readings are starting to become less controlled. I have recommended for the patient to follow more strictly to the diabetic diet as discussed in clinic to allow for greater blood glucose control. Hypertension - well controlled - continue with current medications, continue with no added salt diet. Pt has been encouraged to exercise daily. The pt has been advised to call the office if there are any acute concerns about change in blood pressure readings at home. 09/17/2018 [facility]ment: [facility] [phone] [phone] (30 min) Complex 09/17/2018 Patient Education: Patient Medication Summary Completed 09/17/2018 Patient Education: Hypertension Completed 09/17/2018 Patient Education: Patient Medication Summary Completed 09/13/2018 Care Plan: CBC Pending 09/13/2018 Care Plan: CHEM 14 Pending 09/13/2018 Care Plan: A1C HPLC [facility] : 48271-5 Pending 09/13/2018 Appointment: Kay[facility] Mel[facility]el[facility] [phone] [phone] (15 min) Moderate 09/10/2018 Visit Plan: Hypertension - well controlled - continue with current medications, continue with no added salt diet. Pt has been encouraged to exercise daily. The pt has been advised to call the office if there are any acute concerns about change in blood pressure readings at home. Diabetes Mellitus - Uncontrolled - per recent FSBS reports. I have recommended for the patient to have follow up labs prior to the next office visit. The patient has been instructed to continue with current medications as previously directed, continue with regular FSBS monitoring to assure continued control of diabetes. Pt to call for any acute concerns, complaints, or if the blood glucose readings are starting to become less controlled. I have recommended for the patient to follow more strictly to the diabetic diet as discussed in clinic to allow for greater blood glucose control. Sinusitis - Pt has acute infection - pain in face, maxillary region, Pt informed to use decongestant, RX given to patient, sinus rinses also recommended. Call if symptoms do not show improvement. 07/09/2018 Appointment: Kay[facility] Melendez [facility]el[facility] [phone] [phone] (30 min) Complex 07/09/2018 Patient Education: Patient Medication Summary Completed 07/09/2018 Patient Education: Hypertension Completed 07/09/2018 Visit Plan: Diabetes Mellitus - Uncontrolled - per recent FSBS reports. I have recommended for the patient to have follow up labs prior to the next office visit. The patient has been instructed to continue with current medications as previously directed, continue with regular FSBS monitoring to assure continued control of diabetes. Pt to call for any acute concerns, complaints, or if the blood glucose readings are starting to become less controlled. I have recommended for the patient to follow more strictly to the diabetic diet as discussed in clinic to allow for greater blood glucose control. Hyperlipidemia - pt has been counseled about appropriate diet, exercise, and need for low fat food choices. I have discussed the need for the patient to take medications as prescribed. If the patient has negative side effects from the medication, they are to CALL the office and not abruptly discontinue the medication without discussion with a practitioner in the office. We will check labs in 3-6 months for follow up on the patient's chronic medical problem and to assure normal liver response to medications. Allergies - chronic - recommended pt to use allergy medication as prescribed. Pt has been counseled as to the appropriate use of the medication. Pt to call if allergy symptoms are not controlled with the medication. If using nasal spray, instructions as follows: Nasal spray- use twice daily, one spray per nostril twice daily, after 30 minutes, rinse out nose with saline spray.. Use opposite hand per nostril to spray in the nasal steroid allergy spray. 06/04/2018 Appointment: Kay[facility] Melendez [facility]el[facility] [phone] [phone] (30 min) Complex 06/04/2018 Patient Education: Patient Medication Summary Completed 06/04/2018 Patient Education: Cholesterol Management Completed 06/04/2018 Patient Education: Patient Medication Summary Completed 05/25/2018 Care Plan: A1C HPLC LOINC : 56061-8 Pending 05/25/2018 Referral: Ammon Joiner Patient informed. Referral info faxed. Completed 03/24/2018 Visit Plan: Diabetes Mellitus - Uncontrolled - per recent FSBS reports. I have recommended for the patient to have follow up labs prior to the next office visit. The patient has been instructed to continue with current medications as previously directed, continue with regular FSBS monitoring to assure continued control of diabetes. Pt to call for any acute concerns, complaints, or if the blood glucose readings are starting to become less controlled. I have recommended for the patient to follow more strictly to the diabetic diet as discussed in clinic to allow for greater blood glucose control. Hyperlipidemia - pt has been counseled about appropriate diet, exercise, and need for low fat food choices. I have discussed the need for the patient to take medications as prescribed. If the patient has negative side effects from the medication, they are to CALL the office and not abruptly discontinue the medication without discussion with a practitioner in the office. We will check labs in 3-6 months for follow up on the patient's chronic medical problem and to assure normal liver response to medications. Hypertension - well controlled - continue with current medications, continue with no added salt diet. Pt has been encouraged to exercise daily. The pt has been advised to call the office if there are any acute concerns about change in blood pressure readings at home. 03/11/2018 Appointment: Kaylan Melendez WPtel: [phone] [phone] (30 min) Complex 03/11/2018 Patient Education: Patient Medication Summary Completed 03/11/2018 Patient Education: Cholesterol Management Completed 03/11/2018 Patient Education: Hypertension Completed 03/11/2018 Care Plan: Referral Order SNOMED-CT : [id number] Pending 03/11/2018 Visit Plan: Parasthesia - ongoing for about a month - will send RX and refer pt for EMG - The pt is to use prn antiinflammatories to manage acute pain. The patient is to call the office if the pain is worsening or does not improve. 02/17/2018 Appointment: Aditi Hamilton [facility]el[facility] [phone] [phone] (15 min) Moderate 02/17/2018 Patient Education: Patient Medication Summary Completed 02/17/2018 Visit Plan: Right shoulder pain - The pt is to use prn antiinflammatories to manage acute pain. The patient is to call the office if the pain is worsening or does not improve. Rash/Cellulitis - The patient was instructed in appropriate wound care. The patient was instructed to use the antibiotic as per RX. The patient is to call for any change in symptoms, increase in size of the lesion, increase in pain, worsening redness, warmth, discharge. 12/21/2017 Appointment: Aditi Hamilton WPtel: [phone] [facility] (15 min) Moderate 12/21/2017 Patient Education: Patient Medication Summary Completed 12/21/2017 Appointment: Tavia Dunham WPtel: [phone] [facility] (15 min) Moderate 12/02/2017 Visit Plan: Sinusitis - Pt has acute infection - pain in face, maxillary region, Pt informed to use decongestant, RX given to patient, sinus rinses also recommended. Call if symptoms do not show improvement. Allergies - chronic - recommended pt to use allergy medication as prescribed. Pt has been counseled as to the appropriate use of the medication. Pt to call if allergy symptoms are not controlled with the medication. If using nasal spray, instructions as follows: Nasal spray- use twice daily, one spray per nostril twice daily, after 30 minutes, rinse out nose with saline spray.. Use opposite hand per nostril to spray in the nasal steroid allergy spray. Edema - pt has been advised to elevate legs to prevent dependent edema, compression has been recommended to help to naturally decrease peripheral edema. Diuretic use has been discussed and pt has been instructed in appropriate use of such medication as necessary to further attempt to reduce peripheral edema. 11/30/2017 Appointment: Aditi Hamilton WPtel: [phone] [phone] (15 min) Moderate 11/30/2017 Patient Education: Patient Medication Summary Completed 11/30/2017 Care Plan: Comp Metabolic Pending 11/30/2017 Care Plan: Cbc With Differential Pending 11/30/2017 Care Plan: %Hba1C LOINC : 65220-0 Pending 11/30/2017 Care Plan: Lipid Pending 11/30/2017 Care Plan: Tsh Pending 11/30/2017 Care Plan: Free T4 Pending 11/30/2017 Appointment: Tavia Dunham WPtel: [phone] [facility] [place] (15 min) Moderate 11/26/2017 Appointment: Kaylan Melendez WPtel: [phone] [phone] [place] (30 min) Complex 08/13/2017 Appointment: Tavia Dunham WPtel: [phone] [phone] [place] (15 min) Moderate 08/04/2017 Appointment: Tavia Dunham WPtel: [phone] [facility] [place] (15 min) Moderate 07/20/2017 Visit Plan: Sinusitis - Pt has acute infection - pain in face, maxillary region, Pt informed to use decongestant, RX given to patient, sinus rinses also recommended. Call if symptoms do not show improvement. kenalog and rocephin shot today 05/28/2017 Visit Plan: Sinusitis - Pt has acute infection - pain in face, maxillary region, Pt informed to use decongestant, RX given to patient, sinus rinses also recommended. Call if symptoms do not show improvement. kenalog and rocephin shot today 05/28/2017 [facility]ment: [phone] [facility] [place] (30 min) Complex 05/28/2017 Patient Education: Patient Medication Summary Completed 05/28/2017 Appointment: Injection 05/19/2017 Patient Education: Patient Medication Summary Completed 05/19/2017 Visit Plan: URI - Pt advised to increase fluids, vitamin C. Discussed natural and expected course of this diagnosis and need to alert me if symptoms do not follow expected course, or if any worse. RX sent to patient's pharmacy. 04/16/2017 Appointment: [facility]ham [facility]Ptel[facility] [phone] [facility] [place] (15 min) Moderate 04/16/2017 Patient Education: Patient Medication Summary Completed 04/16/2017 Visit Plan: Left side pain - negative UA - no rash present, but pain starts in her back flank area and wraps around to the side - will treat like shingles, pt is to notify clinic if symptoms do not improve, if they worsen, or with any changes, questions, or concerns. 02/10/2017 Appointment: Aditi Hamilton WPtel: [phone] [phone] (15 min) Moderate 02/10/2017 Patient Education: Patient Medication Summary Completed 02/10/2017 Patient Education: Obesity Completed 02/10/2017 Visit Plan: Pain in Thoracic spine with muscle spasm - ibuprofen 600mg three times daily x 3 days, rx for cyclobenzaprine. 02/02/2017 Appointment: Tavia Dunham WPtel: [phone] [phone] (15 min) Moderate 02/02/2017 Patient Education: Patient Medication Summary Completed 02/02/2017 Patient Education: Obesity Completed 02/02/2017 Visit Plan: Diabetes Mellitus - Uncontrolled - per recent FSBS reports. I have recommended for the patient to have follow up labs prior to the next office visit. The patient has been instructed to continue with current medications as previously directed, continue with regular FSBS monitoring to assure continued control of diabetes. Pt to call for any acute concerns, complaints, or if the blood glucose readings are starting to become less controlled. I have recommended for the patient to follow more strictly to the diabetic diet as discussed in clinic to allow for greater blood glucose control. Hypertension - well controlled - continue with current medications, continue with no added salt diet. Pt has been encouraged to exercise daily. The pt has been advised to call the office if there are any acute concerns about change in blood pressure readings at home. Abdominal pain and recent pancreatitis - low fat diet, check repeat labs today. 01/27/2017 Appointment: [facility]Ptel[facility] [phone] [facility] (15 min) Moderate 01/27/2017 Patient Education: Patient Medication Summary Completed 01/27/2017 Patient Education: Obesity Completed 01/27/2017 Visit Plan: Hypertension - well controlled - continue with current medications, continue with no added salt diet. Pt has been encouraged to exercise daily. The pt has been advised to call the office if there are any acute concerns about change in blood pressure readings at home. Diabetes Mellitus - controlled - per recent FSBS reports. I have recommended for the patient to have follow up labs prior to the next office visit. The patient has been instructed to continue with current medications as previously directed, continue with regular FSBS monitoring to assure continued control of diabetes. Pt to call for any acute concerns, complaints, or if the blood glucose readings are starting to become less controlled. Hypothyroidism - pt with chronic hypothyroidism, continue with current medication, will monitor pt to signs or symptoms of lack of adequate supplementation. Pt is to continue with current dose of medication unless directed otherwise. Check labs at regular intervals wither q 3 months or q 6 months based on previous levels of control. Arthritis- occasionally uncontrolled symptoms- recommend pt to take antiinflammatory as directed for pain control. Use tylenol for break through pain symptoms. 11/07/2016 Appointment: Aditi Hamilton WPtel: [address] [place], [place] [phone] (30 min) [facility] 11/07/2016 Patient Education: Patient Medication Summary Completed 11/07/2016 Patient Education: Obesity Completed 11/07/2016 Patient Education: Hypertension Completed 11/07/2016 Visit Plan: Sinusitis - Pt has acute infection - pain in face, maxillary region, Pt informed to use decongestant, RX given to patient, sinus rinses also recommended. Call if symptoms do not show improvement. Allergies - chronic - recommended pt to use allergy medication as prescribed. Pt has been counseled as to the appropriate use of the medication. Pt to call if allergy symptoms are not controlled with the medication. If using nasal spray, instructions as follows: Nasal spray- use twice daily, one spray per nostril twice daily, after 30 minutes, rinse out nose with saline spray.. Use opposite hand per nostril to spray in the nasal steroid allergy spray. 03/26/2016 Visit Plan: Sinusitis - Pt has acute infection - pain in face, maxillary region, Pt informed to use decongestant, RX given to patient, sinus rinses also recommended. Call if symptoms do not show improvement. Allergies - chronic - recommended pt to use allergy medication as prescribed. Pt has been counseled as to the appropriate use of the medication. Pt to call if allergy symptoms are not controlled with the medication. If using nasal spray, instructions as follows: Nasal spray- use twice daily, one spray per nostril twice daily, after 30 minutes, rinse out nose with saline spray.. Use opposite hand per nostril to spray in the nasal steroid allergy spray. 03/26/2016 Appointment: Aditi Hamilton [facility]el: [phone] [phone] (30 min) Complex 03/26/2016 Patient Education: Patient Medication Summary Completed 03/26/2016 Visit Plan: Hypertension - well controlled - continue with current medications, continue with no added salt diet. Pt has been encouraged to exercise daily. The pt has been advised to call the office if there are any acute concerns about change in blood pressure readings at home. Hyperlipidemia - pt has been counseled about appropriate diet, exercise, and need for low fat food choices. I have discussed the need for the patient to take medications as prescribed. If the patient has negative side effects from the medication, they are to CALL the office and not abruptly discontinue the medication without discussion with a practitioner in the office. We will check labs in 3-6 months for follow up on the patient's chronic medical problem and to assure normal liver response to medications. 12/13/2015 Appointment: [facility] Dunham [facility]el[facility] [phone] [facility] (15 min) Moderate 12/13/2015 Patient Education: Patient Medication Summary Completed 12/13/2015 Patient Education: Obesity Completed 12/13/2015 Visit Plan: Hypertension - well controlled - continue with current medications, continue with no added salt diet. Pt has been encouraged to exercise daily. The pt has been advised to call the office if there are any acute concerns about change in blood pressure readings at home. Hydrocephalus - pt doing well - shunt appears to be working well. 08/15/2015 Patient Education: Patient Medication Summary Completed 08/15/2015 Patient Education: Obesity Completed 08/15/2015 Visit Plan: Otitis Media - discussed the diagnosis with the patient, script sent electronically to the pharmacy for treatment of the infection. The disease course was discussed and the need to notify the clinic if symptoms do not improve or if they acutely worsen. URI - Pt advised to increase fluids, vitamin C. Discussed natural and expected course of this diagnosis and need to alert me if symptoms do not follow expected course, or if any worse. RX sent to patient's pharmacy. 06/13/2015 Patient Education: Patient Medication Summary Completed 06/13/2015 Patient Education: Obesity Completed 06/13/2015 Visit Plan: Sinusitis - Pt has acute infection - pain in face, maxillary region, Pt informed to use decongestant, RX given to patient, sinus rinses also recommended. Call if symptoms do not show improvement. Allergies - chronic - recommended pt to use allergy medication as prescribed. Pt has been counseled as to the appropriate use of the medication. Pt to call if allergy symptoms are not controlled with the medication. Kenalog injection today in the office. 06/07/2015 Patient Education: Patient Medication Summary Completed 06/07/2015 Patient Education: Obesity Completed 06/07/2015 Visit Plan: NPH-increased dizziness/nausea/vomiting since adjustment of shunt-discussed with Dr Dunham-keep follow up appointment with neurologist as scheduled-will refill zofran odt to use as needed-call if symptoms worsen or new symptoms develop-patient verbalized understanding of plan. Hypertension - well controlled - continue with current medications, continue with no added salt diet. Pt has been encouraged to exercise daily. The pt has been advised to call the office if there are any acute concerns about change in blood pressure readings at home. Diabetes Mellitus - I have recommended for the patient to have follow up labs prior to the next office visit. The patient has been instructed to continue with current medications as previously directed, continue with regular FSBS monitoring to assure continued control of diabetes. Pt to call for any acute concerns, complaints, or if the blood glucose readings are starting to become less controlled. 03/13/2015 Appointment: (30 min) Complex 03/13/2015 Patient Education: Patient Medication Summary Completed 03/13/2015 Patient Education: Hypertension Completed 03/13/2015 Visit Plan: Acute Sinusitis - Tenderness of frontal and maxillary sinuses. Nasal congestion. Will prescribe Amoxicillin 500 mg PO BID for 10 days. Kenalog shot today. Follow up if symptoms do not improve, or get worse, or with any other concern. 12/07/2014 Appointment: (15 min) Moderate 12/07/2014 Patient Education: Patient Medication Summary Completed 12/07/2014 Visit Plan: Hypertension - well controlled - continue with current medications, continue with no added salt diet. Pt has been encouraged to exercise daily. The pt has been advised to call the office if there are any acute concerns about change in blood pressure readings at home. Diabetes Mellitus - controlled - per recent FSBS reports. I have recommended for the patient to have follow up labs prior to the next office visit. The patient has been instructed to continue with current medications as previously directed, continue with regular FSBS monitoring to assure continued control of diabetes. Pt to call for any acute concerns, complaints, or if the blood glucose readings are starting to become less controlled. Elevated triglycerides-ok to increase fish oil to twice daily-will consider gemfibrozil if level does not improve with fish oil and dietary modifications-low fat diet-no fried foods, fatty foods, fast foods, etc. Patient verbalized understanding of plan. NPH-recent shunt placement by Dr Ruvalcaba-symptoms significantly improved 09/07/2014 Appointment: (15 min) Moderate 09/07/2014 Patient Education: Patient Medication Summary Completed 09/07/2014 Patient Education: Hypertension Completed 09/07/2014 Visit Plan: Diabetes Mellitus - controlled - per recent FSBS reports. I have recommended for the patient to have follow up labs prior to the next office visit. The patient has been instructed to continue with current medications as previously directed, continue with regular FSBS monitoring to assure continued control of diabetes. Pt to call for any acute concerns, complaints, or if the blood glucose readings are starting to become less controlled. Hypertension - well controlled - continue with current medications, continue with no added salt diet. Pt has been encouraged to exercise daily. The pt has been advised to call the office if there are any acute concerns about change in blood pressure readings at home. NPH with Gait abnormality - pt to have surgery this Thursday - will have evaluation post surgically - Pt to start on therapy post surgery - she will call with report of where she wants therapy. Vitamin D deficiency - start on supplement. 08/07/2014 Appointment: Tavia Dunham WPtel[id number] [place] [facility] New Patient 08/07/2014 Patient Education: Patient Medication Summary Completed 08/07/2014 Patient Education: Hypertension Completed 08/07/2014 Referral: Ammon Joiner Referral Appointment Requested Instructions Comment take a probiotic while on antibiotic - take culturelle 1 tab twice daily . Sinusitis - Pt has acute infection - pain in face, maxillary region, Pt informed to use decongestant, RX given to patient, sinus rinses also recommended. Call if symptoms do not show improvement. kenalog and rocephin shot today . Hypertension - well controlled - continue with current medications, continue with no added salt diet. Pt has been encouraged to exercise daily. The pt has been advised to call the office if there are any acute concerns about change in blood pressure readings at home. Diabetes Mellitus - controlled - per recent FSBS reports. I have recommended for the patient to have follow up labs prior to the next office visit. The patient has been instructed to continue with current medications as previously directed, continue with regular FSBS monitoring to assure continued control of diabetes. Pt to call for any acute concerns, complaints, or if the blood glucose readings are starting to become less controlled. Hypothyroidism - pt with chronic hypothyroidism, continue with current medication, will monitor pt to signs or symptoms of lack of adequate supplementation. Pt is to continue with current dose of medication unless directed otherwise. Check labs at regular intervals wither q 3 months or q 6 months based on previous levels of control. Arthritis- occasionally uncontrolled symptoms- recommend pt to take antiinflammatory as directed for pain control. Use tylenol for break through pain symptoms. . Hypertension - well controlled - continue with current medications, continue with no added salt diet. Pt has been encouraged to exercise daily. The pt has been advised to call the office if there are any acute concerns about change in blood pressure readings at home. Hydrocephalus - pt doing well - shunt appears to be working well. increase the levemir to 15 units in the morning and 10 units at night - call or fax a list of your blood glucose to the office next thursday . Diabetes Mellitus - Uncontrolled - per recent FSBS reports. I have recommended for the patient to have follow up labs prior to the next office visit. The patient has been instructed to continue with current medications as previously directed, continue with regular FSBS monitoring to assure continued control of diabetes. Pt to call for any acute concerns, complaints, or if the blood glucose readings are starting to become less controlled. I have recommended for the patient to follow more strictly to the diabetic diet as discussed in clinic to allow for greater blood glucose control. Hypertension - well controlled - continue with current medications, continue with no added salt diet. Pt has been encouraged to exercise daily. The pt has been advised to call the office if there are any acute concerns about change in blood pressure readings at home. Abdominal pain and recent pancreatitis - low fat diet, check repeat labs today. . NPH-increased dizziness/nausea/vomiting since adjustment of shunt-discussed with Dr Dunham-keep follow up appointment with neurologist as scheduled-will refill zofran odt to use as needed-call if symptoms worsen or new symptoms develop-patient verbalized understanding of plan. Hypertension - well controlled - continue with current medications, continue with no added salt diet. Pt has been encouraged to exercise daily. The pt has been advised to call the office if there are any acute concerns about change in blood pressure readings at home. Diabetes Mellitus - I have recommended for the patient to have follow up labs prior to the next office visit. The patient has been instructed to continue with current medications as previously directed, continue with regular FSBS monitoring to assure continued control of diabetes. Pt to call for any acute concerns, complaints, or if the blood glucose readings are starting to become less controlled. . Left side pain - negative UA - no rash present, but pain starts in her back flank area and wraps around to the side - will treat like shingles, pt is to notify clinic if symptoms do not improve, if they worsen, or with any changes, questions, or concerns. . Hypertension - well controlled - continue with current medications, continue with no added salt diet. Pt has been encouraged to exercise daily. The pt has been advised to call the office if there are any acute concerns about change in blood pressure readings at home. Hyperlipidemia - pt has been counseled about appropriate diet, exercise, and need for low fat food choices. I have discussed the need for the patient to take medications as prescribed. If the patient has negative side effects from the medication, they are to CALL the office and not abruptly discontinue the medication without discussion with a practitioner in the office. We will check labs in 3-6 months for follow up on the patient's chronic medical problem and to assure normal liver response to medications. RECOMMEND ZYRTEC OR LAURENT INCREASE LEVEMIR TO 30 UNITS TWICE DAILY IF BLOOD SUGARS STILL OVER 200, INCREASE TO 35 UNITS TWICE DAILY . Diabetes Mellitus - Uncontrolled - per recent FSBS reports. I have recommended for the patient to have follow up labs prior to the next office visit. The patient has been instructed to continue with current medications as previously directed, continue with regular FSBS monitoring to assure continued control of diabetes. Pt to call for any acute concerns, complaints, or if the blood glucose readings are starting to become less controlled. I have recommended for the patient to follow more strictly to the diabetic diet as discussed in clinic to allow for greater blood glucose control. Hyperlipidemia - pt has been counseled about appropriate diet, exercise, and need for low fat food choices. I have discussed the need for the patient to take medications as prescribed. If the patient has negative side effects from the medication, they are to CALL the office and not abruptly discontinue the medication without discussion with a practitioner in the office. We will check labs in 3-6 months for follow up on the patient's chronic medical problem and to assure normal liver response to medications. Allergies - chronic - recommended pt to use allergy medication as prescribed. Pt has been counseled as to the appropriate use of the medication. Pt to call if allergy symptoms are not controlled with the medication. If using nasal spray, instructions as follows: Nasal spray- use twice daily, one spray per nostril twice daily, after 30 minutes, rinse out nose with saline spray.. Use opposite hand per nostril to spray in the nasal steroid allergy spray. . Sinusitis - Pt has acute infection - pain in face, maxillary region, Pt informed to use decongestant, RX given to patient, sinus rinses also recommended. Call if symptoms do not show improvement. Allergies - chronic - recommended pt to use allergy medication as prescribed. Pt has been counseled as to the appropriate use of the medication. Pt to call if allergy symptoms are not controlled with the medication. If using nasal spray, instructions as follows: Nasal spray- use twice daily, one spray per nostril twice daily, after 30 minutes, rinse out nose with saline spray.. Use opposite hand per nostril to spray in the nasal steroid allergy spray. . Sinusitis - Pt has acute infection - pain in face, maxillary region, Pt informed to use decongestant, RX given to patient, sinus rinses also recommended. Call if symptoms do not show improvement. Allergies - chronic - recommended pt to use allergy medication as prescribed. Pt has been counseled as to the appropriate use of the medication. Pt to call if allergy symptoms are not controlled with the medication. If using nasal spray, instructions as follows: Nasal spray- use twice daily, one spray per nostril twice daily, after 30 minutes, rinse out nose with saline spray.. Use opposite hand per nostril to spray in the nasal steroid allergy spray. increase levemir to 40 units in the morning and continue 35 units at bedtime repeat labs in 2 months . Hypertension - well controlled - continue with current medications, continue with no added salt diet. Pt has been encouraged to exercise daily. The pt has been advised to call the office if there are any acute concerns about change in blood pressure readings at home. Diabetes Mellitus - Uncontrolled - per recent FSBS reports. I have recommended for the patient to have follow up labs prior to the next office visit. The patient has been instructed to continue with current medications as previously directed, continue with regular FSBS monitoring to assure continued control of diabetes. Pt to call for any acute concerns, complaints, or if the blood glucose readings are starting to become less controlled. I have recommended for the patient to follow more strictly to the diabetic diet as discussed in clinic to allow for greater blood glucose control. Sinusitis - Pt has acute infection - pain in face, maxillary region, Pt informed to use decongestant, RX given to patient, sinus rinses also recommended. Call if symptoms do not show improvement. vitamin D 2000 to 5000 units daily. biotin supplement . Diabetes Mellitus - controlled - per recent FSBS reports. I have recommended for the patient to have follow up labs prior to the next office visit. The patient has been instructed to continue with current medications as previously directed, continue with regular FSBS monitoring to assure continued control of diabetes. Pt to call for any acute concerns, complaints, or if the blood glucose readings are starting to become less controlled. Hypertension - well controlled - continue with current medications, continue with no added salt diet. Pt has been encouraged to exercise daily. The pt has been advised to call the office if there are any acute concerns about change in blood pressure readings at home. NPH with Gait abnormality - pt to have surgery this Thursday - will have evaluation post surgically - Pt to start on therapy post surgery - she will call with report of where she wants therapy. Vitamin D deficiency - start on supplement. ibuprofen 600mg three times a day x 5 days. . Right shoulder pain - The pt is to use prn antiinflammatories to manage acute pain. The patient is to call the office if the pain is worsening or does not improve. Rash/Cellulitis - The patient was instructed in appropriate wound care. The patient was instructed to use the antibiotic as per RX. The patient is to call for any change in symptoms, increase in size of the lesion, increase in pain, worsening redness, warmth, discharge. . Parasthesia - ongoing for about a month - will send RX and refer pt for EMG - The pt is to use prn antiinflammatories to manage acute pain. The patient is to call the office if the pain is worsening or does not improve. OK TO INCREASE FISH OIL TO TWICE DAILY RECOMMENDED BY DR LUCERO IF TRIGLYCERIDES ARE STILL ELEVATED WITH NEXT LABS, WE CAN CONSIDER STARTING THE GEMFIBROZIL CUT BACK ON FRIED FOODS, FATTY FOODS, FAST FOODS, ETC . Hypertension - well controlled - continue with current medications, continue with no added salt diet. Pt has been encouraged to exercise daily. The pt has been advised to call the office if there are any acute concerns about change in blood pressure readings at home. Diabetes Mellitus - controlled - per recent FSBS reports. I have recommended for the patient to have follow up labs prior to the next office visit. The patient has been instructed to continue with current medications as previously directed, continue with regular FSBS monitoring to assure continued control of diabetes. Pt to call for any acute concerns, complaints, or if the blood glucose readings are starting to become less controlled. Elevated triglycerides-ok to increase fish oil to twice daily-will consider gemfibrozil if level does not improve with fish oil and dietary modifications- low fat diet-no fried foods, fatty foods, fast foods, etc. Patient verbalized understanding of plan. NPH-recent shunt placement by Dr Ruvalcaba-symptoms significantly improved Continue augmentin steroid shot today - start steroid pills tomorrow if needed allergy medicine like zyrtec over the counter will check labs swelling - use compression stockings, keep feet elevated when sitting, decrease salt intake. . Sinusitis - Pt has acute infection - pain in face, maxillary region, Pt informed to use decongestant, RX given to patient, sinus rinses also recommended. Call if symptoms do not show improvement. Allergies - chronic - recommended pt to use allergy medication as prescribed. Pt has been counseled as to the appropriate use of the medication. Pt to call if allergy symptoms are not controlled with the medication. If using nasal spray, instructions as follows: Nasal spray- use twice daily, one spray per nostril twice daily, after 30 minutes, rinse out nose with saline spray.. Use opposite hand per nostril to spray in the nasal steroid allergy spray. Edema - pt has been advised to elevate legs to prevent dependent edema, compression has been recommended to help to naturally decrease peripheral edema. Diuretic use has been discussed and pt has been instructed in appropriate use of such medication as necessary to further attempt to reduce peripheral edema. . Acute Sinusitis - Tenderness of frontal and maxillary sinuses. Nasal congestion. Will prescribe Amoxicillin 500 mg PO BID for 10 days. Kenalog shot today. Follow up if symptoms do not improve, or get worse, or with any other concern. take a probiotic while on antibiotic - take culturelle 1 tab twice daily . Sinusitis - Pt has acute infection - pain in face, maxillary region, Pt informed to use decongestant, RX given to patient, sinus rinses also recommended. Call if symptoms do not show improvement. kenalog and rocephin shot today . URI - Pt advised to increase fluids, vitamin C. Discussed natural and expected course of this diagnosis and need to alert me if symptoms do not follow expected course, or if any worse. RX sent to patient's pharmacy. Kenalog injection today in the office . Sinusitis - Pt has acute infection - pain in face, maxillary region, Pt informed to use decongestant, RX given to patient, sinus rinses also recommended. Call if symptoms do not show improvement. Allergies - chronic - recommended pt to use allergy medication as prescribed. Pt has been counseled as to the appropriate use of the medication. Pt to call if allergy symptoms are not controlled with the medication. Kenalog injection today in the office. ibuprofen 600mg three times daily x 3 days . Pain in Thoracic spine with muscle spasm - ibuprofen 600mg three times daily x 3 days, rx for cyclobenzaprine. Refer to Dr Joiner bring blood sugars in 3 weeks increase levemir to 30 units in the morning and 25 units in the evening . Diabetes Mellitus - Uncontrolled - per recent FSBS reports. I have recommended for the patient to have follow up labs prior to the next office visit. The patient has been instructed to continue with current medications as previously directed, continue with regular FSBS monitoring to assure continued control of diabetes. Pt to call for any acute concerns, complaints, or if the blood glucose readings are starting to become less controlled. I have recommended for the patient to follow more strictly to the diabetic diet as discussed in clinic to allow for greater blood glucose control. Hyperlipidemia - pt has been counseled about appropriate diet, exercise, and need for low fat food choices. I have discussed the need for the patient to take medications as prescribed. If the patient has negative side effects from the medication, they are to CALL the office and not abruptly discontinue the medication without discussion with a practitioner in the office. We will check labs in 3-6 months for follow up on the patient's chronic medical problem and to assure normal liver response to medications. Hypertension - well controlled - continue with current medications, continue with no added salt diet. Pt has been encouraged to exercise daily. The pt has been advised to call the office if there are any acute concerns about change in blood pressure readings at home. . Otitis Media - discussed the diagnosis with the patient, script sent electronically to the pharmacy for treatment of the infection. The disease course was discussed and the need to notify the clinic if symptoms do not improve or if they acutely worsen. URI - Pt advised to increase fluids, vitamin C. Discussed natural and expected course of this diagnosis and need to alert me if symptoms do not follow expected course, or if any worse. RX sent to patient's pharmacy. INCREASE TO 45 UNITS TWICE DAILY X 1 WEEK THEN INCREASE TO 50UNITS IN THE MORNING AND 45 UNITS AT NIGHT NEXT STEP IS MEAL TIME INSULIN CONSIDER CONTINUE GLUCOSE MONITOR . Diabetes Mellitus - Uncontrolled - I have recommended for the patient to have follow up labs prior to the next office visit. The patient has been instructed to continue with current medications as previously directed, continue with regular FSBS monitoring to assure continued control of diabetes. Pt to call for any acute concerns, complaints, or if the blood glucose readings are starting to become less controlled. I have recommended for the patient to follow more strictly to the diabetic diet as discussed in clinic to allow for greater blood glucose control. Hypertension - well controlled - continue with current medications, continue with no added salt diet. Pt has been encouraged to exercise daily. The pt has been advised to call the office if there are any acute concerns about change in blood pressure readings at home.
--- NOTE | 2018-10-08 10:31 | ED Chest Pain ---
General Stated Complaint: ABDNORMAL EKG Source: patient Exam Limitations: no limitations History of Present Illness Date Seen by Provider: Oct 08, 2018 Time Seen by Provider: 10:15 Initial Comments 53-year-old female brought in with abnormal EKG. Patient was getting the outpatient EKG at the heart center. Patient was found to have an acute MA in her inferior and lateral leads.. Patient has no chest pain at this time had chest pain yesterday. Patient denies any shortness of breath nausea vomiting fevers or chills. Allergies and Home Medications Allergies Coded Allergies: codeine (Unverified Allergy, Mild, 06/16/08) Home Medications Enalapril Maleate 10 Mg Tablet, 10 MG PO BID Prescribed by: ROSS MCNALLY on 01/20/17938 Estradiol 2 Mg Tablet, 2 MG PO HS, (Reported) Fenofibrate Nanocrystallized 145 Mg Tablet, 145 MG PO HS hold until 02/18/17, then resume medications Prescribed by: ROSS MCNALLY on 01/20/17938 Fluconazole 200 Mg Tablet, 200 MG PO MoTh, (Reported) Hydrochlorothiazide 25 Mg Tablet, 25 MG PO DAILY, (Reported) Insulin Detemir 100 Unit/1 Ml Insuln.pen, 15 UNIT SQ DAILY Prescribed by: ROSS MCNALLY on 01/20/17938 Levothyroxine Sodium 125 Mcg Tablet, 125 MCG PO DAILY, (Reported) Medroxyprogesterone Acetate 2.5 Mg Tablet, 2.5 MG PO DAILY, (Reported) Meloxicam 15 Mg Tablet, 15 MG PO DAILY, (Reported) Oxycodone HCl/Acetaminophen 1 Each Tablet, 1 EACH PO TID PRN for PAIN-MILD TO MODERATE Prescribed by: ROSS MCNALLY on 01/20/17938 Pravastatin Sodium 10 Mg Tablet, 10 MG PO HS hold until 02/18/17 - then resume medication Prescribed by: ROSS MCNALLY on 01/20/17938 Venlafaxine HCl 150 Mg Cap.er.24h, 150 MG PO 1900, (Reported) Patient Home Medication List Home Medication List Reviewed: Yes Review of Systems Review of Systems Constitutional: No chills, No diaphoresis, No fever Respiratory: No Symptoms Reported Cardiovascular: See HPI Gastrointestinal: No Symptoms Reported Genitourinary: No Symptoms Reported Musculoskeletal: no symptoms reported Skin: no symptoms reported Past Xtlvnin-Sbqryn-Szjocj Hx Past Med/Social Hx: Reviewed Nursing Past Med/Soc Hx Patient Social History 2nd Hand Smoke Exposure: No Recent Hopitalizations: No Immunizations Up To Date Date of Influenza Vaccine: Jan 20, 2017 Seasonal Allergies Seasonal Allergies: No Past Medical History Surgeries: Yes (08/11/14 SENIOR PROCESS ANALYST shunt for treatment of hydrocephalus) Gallbladder Respiratory: No Cardiac: Yes High Cholesterol, Hypertension Neurological: Yes (HYDROCEPHALUS, WITH POOR BALANCE AND URINARY INCONTINENCE) Headaches /Migraines Gastrointestinal: No Musculoskeletal: Yes Arthritis, Chronic Back Pain Endocrine: Yes Hypothyroidsim, Diabetes, Non-Insulin dep Cancer: No Psychosocial: Yes Depression Integumentary: No Blood Disorders: No Family Medical History Arthritis Asthma Cardiovascular disease Diabetes mellitus Hypertension Myocardial infarction Osteoporosis Psychosocial problem Respiratory disorder Hypertension Physical Exam Vital Signs Capillary Refill : Height, Weight, BMI Height: 5'7.00" Weight: 238lbs. 2.0oz. [id number]; 33.2 BMI Method:Stated General Appearance: No Apparent Distress, WD/WN Respiratory: Chest Non Tender, Lungs Clear, Normal Breath Sounds Cardiovascular: Regular Rate, Rhythm, No Edema Gastrointestinal: Non Tender, Soft Neurologic/Psychiatric: Alert, Oriented x3, Normal Mood/Affect, chemical weigher II-XII Norm as Tested Skin: Normal Color Progress/Results/Core Measures Results/Orders Lab Results Laboratory Tests Test 10/08/18 10:21 Range/Units White Blood Count 11.8 H 4.3-11.0 10^3/uL Red Blood Count 4.96 4.35-5.85 10^6/uL Hemoglobin 14.5 11.5-16.0 G/DL Hematocrit 44 35-52 % Mean Corpuscular Volume 89 80-99 FL Mean Corpuscular Hemoglobin 29 25-34 PG Mean Corpuscular Hemoglobin Concent 33 32-36 G/DL Red Cell Distribution Width 13.8 10.0-14.5 % Platelet Count 302 130-400 10^3/uL Mean Platelet Volume 10.7 H 7.4-10.4 FL Neutrophils (%) (Auto) 78 H 42-75 % Lymphocytes (%) (Auto) 17 12-44 % Monocytes (%) (Auto) 5 0-12 % Eosinophils (%) (Auto) 1 0-10 % Basophils (%) (Auto) 0 0-10 % Neutrophils # (Auto) 9.2 H 1.8-7.8 X 10^3 Lymphocytes # (Auto) 2.0 1.0-4.0 X 10^3 Monocytes # (Auto) 0.5 0.0-1.0 X 10^3 Eosinophils # (Auto) 0.1 0.0-0.3 10^3/uL Basophils # (Auto) 0.0 0.0-0.1 10^3/uL My Orders Orders - TENA,CLAYTON L DO Cbc With Automated Diff (10/08/18 10:15) Magnesium (10/08/18 10:15) Chest 1 View, Ap/Pa Only (10/08/18 10:15) Ekg Tracing (10/08/18 10:15) Cardiac Profile 1 (10/08/18 10:15) Comprehensive Metabolic Panel (10/08/18 10:15) Myoglobin Serum (10/08/18 10:15) Protime With Inr (10/08/18 10:15) Partial Thromboplastin Time (10/08/18 10:15) O2 (10/08/18 10:15) Monitor-Rhythm Ecg Trace Only (10/08/18 10:15) Lipid Panel (10/09/18 06:00) Ed Iv/Invasive Line Start (10/08/18 10:15) Aspirin Chewable Tablet (Baby Aspirin Ch (10/08/18 10:15) Aspirin Chewable Tablet (Baby Aspirin Ch (10/08/18 10:11) Medications Given in ED Current Medications Medications Dose Ordered Sig/Shabana Route Start Time Stop Time Status Last Admin Dose Admin Aspirin 81 mg STK-MED ONCE .ROUTE 10/08/18 10:11 10/08/18 10:18 DC 10/08/18 10:11 81 MG Progress Progress Note : Progress Note Patient was seen by Dr. Pruitt in the ER. Computer Numerical Control Grinder was activated and patient transferred to the Computer Numerical Control Grinder in stable condition. Initial ECG Impression Date: Oct 08, 2018 Initial ECG Impression Time: 10:15 Initial ECG Rhythm: Normal Sinus Initial ECG Impression: Acute MA Comment Elevation in 2-3 aVF and the lateral leads V3 through V6 with reciprocal changes in V1 and V2 Departure Impression Primary Impression: ST elevation (STEMI) myocardial infarction Qualified Codes: I21.3 - ST elevation (STEMI) myocardial infarction of unspecified site Disposition: 09 ADMITTED INPATIENT Condition: Stable Departure-Patient Inst. Referrals: ROSS MCNALLY MD (PCP/Family) Primary Care Physician CLAYTON TENA DO Oct 08, 2018 10:31
--- OUTSIDE RECORDS SUMMARY | 2018-10-08 10:31 | XMS REPORT | CCD ---
Author Author [facility] Organization [facility] Address [address] [place] [address] Phone Care Team Providers Care Hand Potter Name Role Phone PP Unavailable CCM Unavailable Summary Purpose Interface Exchange Insurance Providers Payer name Policy type / Coverage type Covered green party ID Effective Begin Date Effective End Date Blue Cross Blue [facility] Blue Cross/Blue [facility] [id number] Unknown Family history Mother Diagnosis Age At Onset Cancer Unknown Arthritis Unknown Depression Unknown Hyperlipidemia Unknown Diabetes mellitus Type 2 Unknown Social History Social History Element Codes Description Effective Dates Marital status Unknown [place] 08/07/2014 Number of children Unknown 0 08/07/2014 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[employer] 08/07/[address]: 052091570 Never smoker 08/07/[address]: 444684887 Never drinks alcohol 08/07/2014 Allergies, Adverse Reactions, [...] Start Date Stop Date Status Fill Instructions levothyroxine 125 mcg tablet RxNorm: 270968 TAKE 1 TABLET BY MOUTH ONCE DAILY 08/26/2018 No Stop Date Active levothyroxine 125 mcg tablet RxNorm: 634408 TAKE 1 TABLET BY MOUTH ONCE DAILY 08/11/2018 No Stop Date Active hydrochlorothiazide 25 mg tablet RxNorm: 057782 TAKE 1 TABLET BY MOUTH ONCE DAILY 08/02/2018 No Stop Date Active Levemir FlexTouch U-100 Insulin 100 unit/mL (3 mL) subcutaneous pen RxNorm: 633732 35-40 Unit(s) SQ BID 07/09/2018 11/05/2018 Active INCREASE TO 40 UNITS Q AM AND 35 UNTIS Q HS Levemir FlexTouch U-100 Insulin 100 unit/mL (3 mL) subcutaneous pen RxNorm: 295816 35-40 Unit(s) SQ BID 07/09/2018 07/08/2018 Inactive INCREASE TO 40 UNITS Q AM AND 35 UNTIS Q HS doxycycline hyclate 100 mg tablet RxNorm: 8874784 1 Tablet(s) PO BID 07/09/2018 07/18/2018 Inactive venlafaxine ER 150 mg capsule,extended release 24 hr RxNorm: 096047 TAKE 1 CAPSULE BY MOUTH ONCE DAILY 06/08/2018 No Stop Date Active Levemir FlexTouch U-100 Insulin 100 unit/mL (3 mL) subcutaneous pen RxNorm: 415975 30 Unit(s) SQ BID 06/04/2018 07/08/2018 Inactive update RX -increase to 35 units BID if blood sugars over 200 Augmentin 875 mg-125 mg tablet RxNorm: 017909 1 Tablet(s) PO BID 06/04/2018 06/10/2018 Inactive hydrochlorothiazide 25 mg tablet RxNorm: 273697 TAKE 1 TABLET BY MOUTH ONCE DAILY 03/23/2018 08/01/2018 Inactive Levemir FlexTouch U-100 Insulin 100 unit/mL (3 mL) subcutaneous pen RxNorm: 928423 30 Unit(s) SQ QAM and 25 Units SQ QPM 03/18/2018 06/03/2018 Inactive Levemir FlexTouch U-100 Insulin 100 unit/mL (3 mL) subcutaneous pen RxNorm: 664043 Unit(s) 03/11/2018 03/17/2018 Inactive 30 q am and 25 units q PM pravastatin 40 mg tablet RxNorm: 825121 1 Tablet(s) PO daily take with coenzyme q 10 daily 03/03/2018 02/25/2019 Active Levemir FlexTouch U-100 Insulin 100 unit/mL (3 mL) subcutaneous pen RxNorm: 813568 Unit(s) INJECT 25 UNITS SUBCUTANEOUSLY TWICE DAILY 03/03/2018 03/10/2018 Inactive pravastatin 10 mg tablet RxNorm: 350837 1 Tablet(s) PO daily take with coenzyme q 10 daily 02/26/2018 03/02/2018 Inactive prednisone 20 mg tablet RxNorm: 796294 2 Tablet(s) PO daily 02/17/2018 02/21/2018 Inactive levothyroxine 125 mcg tablet RxNorm: 467983 TAKE 1 TABLET BY MOUTH ONCE DAILY 01/11/2018 08/10/2018 Inactive cyclobenzaprine 5 mg tablet RxNorm: 791113 1 Tablet(s) PO TID as needed 12/28/2017 01/11/2018 Inactive Zorvolex 35 mg capsule RxNorm: 4793676 1 Capsule(s) PO TID as needed 12/25/2017 05/23/2018 Inactive Levemir FlexTouch U-100 Insulin 100 unit/mL (3 mL) subcutaneous pen RxNorm: 131639 INJECT 2O UNITS SUBCUTANEOUSLY TWICE DAILY 12/21/2017 03/02/2018 Inactive cyclobenzaprine 5 mg tablet RxNorm: 694477 1 Tablet(s) PO TID as needed 12/21/2017 12/25/2017 Inactive doxycycline hyclate 100 mg capsule RxNorm: 6331319 1 Capsule(s) PO BID 12/21/2017 12/30/2017 Inactive venlafaxine ER 150 mg capsule,extended release 24 hr RxNorm: 775717 TAKE 1 CAPSULE BY MOUTH ONCE DAILY 12/10/2017 06/07/2018 Inactive Singulair 10 mg tablet RxNorm: 127290 1 Tablet(s) PO daily 12/03/2017 12/02/2017 Inactive Singulair 10 mg tablet RxNorm: 605292 1 Tablet(s) PO daily 12/03/2017 01/01/2018 Inactive Zithromax Z-Kulwant 250 mg tablet RxNorm: 082732 1 Tablet(s) PO UD 12/03/2017 03/10/2018 Inactive z pack as directed Kenalog 40 mg/mL suspension for injection RxNorm: 8565919 1 Milliliter(s) Inj 11/30/2017 11/30/2017 Inactive prednisone 20 mg tablet RxNorm: 858691 2 Tablet(s) PO daily 11/30/2017 12/04/2017 Inactive Augmentin 875 mg-125 mg tablet RxNorm: 101872 1 Tablet(s) PO BID 11/27/2017 11/26/2017 Inactive Augmentin 875 mg-125 mg tablet RxNorm: 177664 1 Tablet(s) PO BID 11/27/2017 12/03/2017 Inactive Zorvolex 35 mg capsule RxNorm: 9757368 1 Capsule(s) PO TID as needed 11/09/2017 12/24/2017 Inactive hydrochlorothiazide 25 mg tablet RxNorm: 386504 1 Tablet(s) PO daily 10/22/2017 02/18/2018 Inactive enalapril maleate 5 mg tablet RxNorm: 511178 1 Tablet(s) PO daily TAKE ONE TABLET BY MOUTH ONCE DAILY 08/21/2017 02/16/2018 Inactive Levemir FlexTouch U-100 Insulin 100 unit/mL (3 mL) subcutaneous pen RxNorm: 675657 20 Unit(s) SQ BID 07/30/2017 12/20/2017 Inactive levothyroxine 125 mcg tablet RxNorm: 519583 TAKE ONE TABLET BY MOUTH ONCE DAILY 06/29/2017 01/10/2018 Inactive venlafaxine ER 150 mg capsule,extended release 24 hr RxNorm: 050817 1 Capsule(s) PO daily TAKE ONE CAPSULE BY MOUTH ONCE DAILY 06/08/2017 12/04/2017 Inactive prednisone 20 mg tablet RxNorm: 575728 1 Tablet(s) PO daily 06/02/2017 06/06/2017 Inactive prednisone 20 mg tablet RxNorm: 483227 1 Tablet(s) PO daily 06/01/2017 06/05/2017 Inactive Kenalog 40 mg/mL suspension for injection RxNorm: 2622853 1 Milliliter(s) Inj 05/28/2017 05/28/2017 Inactive cefdinir 300 mg capsule RxNorm: 960041 1 Capsule(s) PO BID 05/28/2017 06/03/2017 Inactive ceftriaxone 500 mg solution for injection RxNorm: 1507027 1 Inj 05/28/2017 05/28/2017 Inactive prednisone 20 mg tablet RxNorm: 233008 1 Tablet(s) PO daily 05/28/2017 05/31/2017 Inactive Keflex 500 mg capsule RxNorm: 250181 1 Capsule(s) PO TID 05/26/2017 06/01/2017 Inactive Keflex 500 mg capsule RxNorm: 564130 1 Capsule(s) PO TID 05/26/2017 05/25/2017 Inactive hydrocodone 10 mg-chlorpheniramine 8 mg/5 mL oral susp extend.rel 12hr RxNorm: 2377272 5-10 Milliliter(s) PO TID as needed 04/16/2017 No Stop Date Active Tussionex Pennkinetic ER 10 mg-8 mg/5 mL suspension,extended release RxNorm: 9138965 5 Milliliter(s) PO BID 04/16/2017 04/27/2017 Inactive Zithromax Z-Kulwant 250 mg tablet RxNorm: 612436 1 Tablet(s) PO UD 03/25/2017 04/15/2017 Inactive z pack as directed enalapril maleate 5 mg tablet RxNorm: 965276 TAKE ONE TABLET BY MOUTH ONCE DAILY 02/26/2017 08/20/2017 Inactive Levemir FlexTouch 100 unit/mL (3 mL) subcutaneous insulin pen RxNorm: 789345 20 Unit(s) SQ BID 02/10/2017 07/11/2017 Inactive Zorvolex 35 mg capsule RxNorm: 4977453 1 Capsule(s) PO TID as needed 02/10/2017 11/08/2017 Inactive valacyclovir 1 gram tablet RxNorm: 225073 1 Tablet(s) PO TID 02/10/2017 02/16/2017 Inactive Levemir FlexTouch 100 unit/mL (3 mL) subcutaneous insulin pen RxNorm: 203670 20 Unit(s) SQ BID 02/04/2017 02/09/2017 Inactive cyclobenzaprine 5 mg tablet RxNorm: 961843 1 Tablet(s) PO qhs x 3 nights and TID as needed muscle spasms 02/02/2017 No Stop Date Active levothyroxine 125 mcg tablet RxNorm: 462743 TAKE ONE TABLET BY MOUTH ONCE DAILY 12/08/2016 06/05/2017 Inactive venlafaxine ER 150 mg capsule,extended release 24 hr RxNorm: 241659 TAKE ONE CAPSULE BY MOUTH ONCE DAILY 12/01/2016 05/29/2017 Inactive Zorvolex 35 mg capsule RxNorm: 3798823 1 Capsule(s) PO TID as needed do not take meloxicam at the same time 11/07/2016 No Stop Date Active enalapril maleate 5 mg tablet RxNorm: 495117 TAKE ONE TABLET BY MOUTH ONCE DAILY 10/31/2016 12/29/2016 Inactive meloxicam 15 mg tablet RxNorm: 230626 TAKE ONE TABLET BY MOUTH ONCE DAILY 10/30/2016 03/10/2018 Inactive meloxicam 15 mg tablet RxNorm: 050049 TAKE ONE TABLET BY MOUTH ONCE DAILY 10/24/2016 10/29/2016 Inactive enalapril maleate 5 mg tablet RxNorm: 652026 TAKE ONE TABLET BY MOUTH ONCE DAILY 10/24/2016 10/30/2016 Inactive venlafaxine ER 150 mg capsule,extended release 24 hr RxNorm: 547594 TAKE ONE CAPSULE BY MOUTH ONCE DAILY 06/16/2016 11/12/2016 Inactive meloxicam 15 mg tablet RxNorm: 320551 TAKE ONE TABLET BY MOUTH ONCE DAILY 06/09/2016 10/06/2016 Inactive enalapril maleate 5 mg tablet RxNorm: 979659 TAKE ONE TABLET BY MOUTH ONCE DAILY 06/02/2016 09/29/2016 Inactive Zithromax Z-Kulwant 250 mg tablet RxNorm: 597974 1 Tablet(s) PO UD 05/21/2016 06/15/2016 Inactive levothyroxine 125 mcg tablet RxNorm: 177434 Tablet(s) TAKE ONE TABLET BY MOUTH ONCE DAILY 04/15/2016 10/11/2016 Inactive Levaquin 500 mg tablet RxNorm: 882166 1 Tablet(s) PO daily 04/03/2016 04/09/2016 Inactive Levaquin 500 mg tablet RxNorm: 815721 1 Tablet(s) PO daily 04/03/2016 04/02/2016 Inactive prednisone 20 mg tablet RxNorm: 874723 2 Tablet(s) PO daily 03/28/2016 04/01/2016 Inactive Zithromax Z-Kulwant 250 mg tablet RxNorm: 227312 1 Tablet(s) PO UD 03/26/2016 03/30/2016 Inactive zpack Kenalog 40 mg/mL suspension for injection RxNorm: 2322442 Milliliter(s) Inj 03/26/2016 03/26/2016 Inactive Zofran ODT 4 mg disintegrating tablet RxNorm: 215757 DISSOLVE ONE TABLET IN MOUTH EVERY 6 HOURS NEEDED 02/22/2016 02/29/2016 Inactive venlafaxine ER 150 mg capsule,extended release 24 hr RxNorm: 580130 TAKE ONE CAPSULE BY MOUTH ONCE DAILY 02/18/2016 06/15/2016 Inactive meloxicam 15 mg tablet RxNorm: 864990 TAKE ONE TABLET BY MOUTH ONCE DAILY 02/04/2016 06/02/2016 Inactive aspirin 81 mg chewable tablet RxNorm: 471126 1 Tablet(s) PO daily 12/13/2015 12/06/2016 Inactive biotin 2,500 mcg tablet RxNorm: 064349 1 Tablet(s) PO daily 12/13/2015 09/07/2016 Inactive hydrochlorothiazide 25 mg tablet RxNorm: 564279 1 Tablet(s) PO daily 12/13/2015 04/10/2016 Inactive enalapril maleate 5 mg tablet RxNorm: 200775 TAKE ONE TABLET BY MOUTH ONCE DAILY 11/22/2015 05/19/2016 Inactive venlafaxine ER 150 mg capsule,extended release 24 hr RxNorm: 893725 TAKE ONE CAPSULE BY MOUTH ONCE DAILY 11/14/2015 02/11/2016 Inactive levothyroxine 125 mcg tablet RxNorm: 315973 Tablet(s) TAKE ONE TABLET BY MOUTH ONCE DAILY 11/06/2015 04/14/2016 Inactive levothyroxine 125 mcg tablet RxNorm: 070968 Tablet(s) TAKE ONE TABLET BY MOUTH ONCE DAILY 08/06/2015 11/03/2015 Inactive meclizine 25 mg tablet RxNorm: 439080 1/2-1 Tablet(s) PO Q6 as needed 07/16/2015 No Stop Date Active Flonase Allergy Relief 50 mcg/actuation nasal spray,suspension RxNorm: 1 [place] NASAL daily 06/13/2015 No Stop Date Active prednisone 20 mg tablet RxNorm: 879276 2 Tablet(s) PO daily 06/13/2015 06/17/2015 Inactive Augmentin 875 mg-125 mg tablet RxNorm: 064664 1 Tablet(s) PO BID 06/13/2015 06/19/2015 Inactive Zithromax Z-Kulwant 250 mg tablet RxNorm: 067924 1 Tablet(s) PO UD 06/07/2015 06/11/2015 Inactive zpack Kenalog 40 mg/mL suspension for injection RxNorm: 4677535 Milliliter(s) Inj 06/07/2015 06/07/2015 Inactive venlafaxine ER 150 mg capsule,extended release 24 hr RxNorm: 386190 TAKE ONE CAPSULE BY MOUTH ONCE DAILY 05/14/2015 11/09/2015 Inactive Augmentin 500 mg-125 mg tablet RxNorm: 333442 1 Tablet(s) PO TID 04/25/2015 05/04/2015 Inactive Augmentin 500 mg-125 mg tablet RxNorm: 898849 1 Tablet(s) PO TID 04/25/2015 04/24/2015 Inactive pravastatin 10 mg tablet RxNorm: 679408 1 Tablet(s) PO daily take with coenzyme q 10 daily 03/21/2015 03/20/2015 Inactive DC crestor pravastatin 10 mg tablet RxNorm: 364239 1 Tablet(s) PO daily take with coenzyme q 10 daily 03/21/2015 07/18/2015 Inactive DC crestor Zofran ODT 4 mg disintegrating tablet RxNorm: 685672 1 Tablet(s) PO Q6 PRN 03/13/2015 02/21/2016 Inactive levothyroxine 125 mcg tablet RxNorm: 259392 TAKE ONE TABLET BY MOUTH ONCE DAILY 02/13/2015 08/05/2015 Inactive meloxicam 15 mg tablet RxNorm: 452740 1 Tablet(s) PO daily 01/28/2015 01/22/2016 Inactive Zofran 4 mg tablet RxNorm: 296335 1 Tablet(s) PO Q6-8H as needed nausea 01/24/2015 No Stop Date Active Trulicity 1.5 mg/0.5 mL subcutaneous pen injector RxNorm: 0271316 0.75mg Milliliter(s) SQ QW 01/10/2015 03/10/2018 Inactive venlafaxine ER 150 mg capsule,extended release 24 hr RxNorm: 314318 1 Capsule(s) PO daily 01/10/2015 05/09/2015 Inactive enalapril maleate 5 mg tablet RxNorm: 791063 1 Tablet(s) PO daily 01/04/2015 07/02/2015 Inactive amoxicillin 500 mg tablet RxNorm: 808441 1 Tablet(s) PO BID 12/07/2014 12/06/2014 Inactive Probiotic & Acidophilus 300 million cell-250 mg capsule RxNorm: 1 Capsule(s) PO BID 12/07/2014 12/16/2014 Inactive amoxicillin 500 mg tablet RxNorm: 779706 1 Tablet(s) PO BID 12/07/2014 12/16/2014 Inactive Kenalog 40 mg/mL suspension for injection RxNorm: 8907911 1 Milliliter(s) Inj 12/07/2014 12/07/2014 Inactive meloxicam 15 mg tablet RxNorm: 580021 1 Tablet(s) PO daily 10/24/2014 10/23/2014 Inactive meloxicam 15 mg tablet RxNorm: 039039 1 Tablet(s) PO daily 10/24/2014 01/27/2015 Inactive azithromycin 500 mg tablet RxNorm: 576665 1 Tablet(s) PO daily 10/11/2014 10/15/2014 Inactive azithromycin 500 mg tablet RxNorm: 476978 1 Tablet(s) PO daily 10/11/2014 10/10/2014 Inactive levothyroxine 125 mcg tablet RxNorm: 328378 1 Tablet(s) PO daily 10/06/2014 02/02/2015 Inactive enalapril maleate 5 mg tablet RxNorm: 885072 1 Tablet(s) PO daily 08/29/2014 12/26/2014 Inactive enalapril maleate 5 mg tablet RxNorm: 029104 1 Tablet(s) PO daily 08/25/2014 08/28/2014 Inactive Medroxy oral RxNorm: 8969123 oral No Start Date Active Vitamin D3 5,000 unit tablet RxNorm: 496302 1 Tablet(s) PO daily No Start Date Active fluconazole 200 mg tablet RxNorm: 677165 Tablet(s) PO No Start Date Active estradiol 2 mg tablet RxNorm: 315304 1 Tablet(s) PO daily No Start Date Active fenofibrate nanocrystallized 145 mg tablet RxNorm: 097410 1 Tablet(s) PO daily No Start Date Active hydrocodone 5 mg-acetaminophen 325 mg tablet RxNorm: 309290 1-2 Tablet(s) PO Q4-6H as needed No Start Date Active enalapril maleate 5 mg tablet RxNorm: 781542 1 Tablet(s) PO daily No Start Date 08/24/2014 Inactive glimepiride 4 mg tablet RxNorm: 290742 1 Tablet(s) PO daily No Start Date 01/26/2017 Inactive meclizine 25 mg tablet RxNorm: 182098 1/2-1 Tablet(s) PO Q6 as needed No Start Date 07/15/2015 Inactive Trulicity 0.75 mg/0.5 mL subcutaneous pen injector RxNorm: 1491942 0.75mg Milliliter(s) SQ QW No Start Date 01/09/2015 Inactive metformin 1,000 mg tablet RxNorm: 174542 Tablet(s) PO BID No Start Date 01/26/2017 Inactive venlafaxine ER 150 mg capsule,extended release 24 hr RxNorm: 001090 1 Capsule(s) PO daily No Start Date 01/09/2015 Inactive meloxicam 15 mg tablet RxNorm: 545257 1 Tablet(s) PO daily No Start Date 10/23/2014 Inactive levothyroxine 125 mcg tablet RxNorm: 515305 1 Tablet(s) PO daily No Start Date 10/05/2014 Inactive Levemir FlexTouch 100 unit/mL (3 mL) subcutaneous insulin pen RxNorm: 260859 15 Unit(s) SQ daily No Start Date 02/03/2017 Inactive Zithromax Z-Kulwant 250 mg tablet RxNorm: 136642 1 Tablet(s) PO UD No Start Date 05/20/2016 Inactive Fish Oil 1,000 mg capsule RxNorm: 1 Capsule(s) PO BID No Start Date 11/04/2016 Inactive Zofran 4 mg tablet RxNorm: 942229 1 Tablet(s) PO Q6-8H as needed nausea No Start Date 01/23/2015 Inactive Crestor 10 mg tablet RxNorm: 772417 1 Tablet(s) PO daily No Start Date 03/20/2015 Inactive Medication Administered Medication Codes Instructions Start Date Status Kenalog 40 mg/mL suspension for injection RxNorm: 0536599 1Milliliter 11/30/2017 No longer Active Kenalog 40 mg/mL suspension for injection RxNorm: 9632253 1Milliliter 05/28/2017 No longer Active ceftriaxone 500 mg solution for injection RxNorm: 1235460 1 05/28/2017 No longer Active Kenalog 40 mg/mL suspension for injection RxNorm: 0778922 Milliliter 03/26/2016 No longer Active Kenalog 40 mg/mL suspension for injection RxNorm: 7062844 Milliliter 06/07/2015 No longer Active Kenalog 40 mg/mL suspension for injection RxNorm: 0605642 1Milliliter 12/07/2014 No longer Active Immunizations Vaccine [...] Item Item Code Result Date CHEM 14 [id number] AST TNP:Lab Request 01/27/2017 CHEM 14 [id number] ALT TNP:Lab Request 01/27/2017 CHEM 14 [id number] BUN TNP:Lab Request 01/27/2017 CHEM 14 [id number] ALBUMIN TNP:Lab Request 01/27/2017 CHEM 14 [id number] CHLORIDE TNP:Lab Request 01/27/2017 CHEM 14 [id number] Bili Total TNP:Lab Request 01/27/2017 CHEM 14 [id number] ALK PHOS TNP:Lab Request 01/27/2017 CHEM 14 [id number] SODIUM TNP:Lab Request 01/27/2017 CHEM 14 [id number] CREATININE TNP:Lab Request 01/27/2017 CHEM 14 [id number] CALCIUM TNP:Lab Request 01/27/2017 CHEM 14 [id number] POTASSIUM TNP:Lab Request 01/27/2017 CHEM 14 [id number] TOTAL PROTEIN TNP:Lab Request 01/27/2017 CHEM 14 [id number] GLUCOSE TNP:Lab Request 01/27/2017 CHEM 14 [id number] Bicarbonate TNP:Lab Request 01/27/2017 CHEM 14 [id number] AGAP TNP:Lab Request 01/27/2017 AMYLASE [id number] Amylase Lvl TNP:Lab Request 01/27/2017 LIPID GRP CHOLESTEROL 273 mg/dL 2016 LIPID GRP Triglyceride 583 mg/dL 2016 LIPID GRP HDL CHOLESTEROL 48 mg/dL 2016 LIPID GRP Chol/HDL Ratio 5.69 ratio 2016 LIPID GRP NON-HDL Chol 225 mg/dL 2016 LIPID GRP LDL Cholesterol N/A Trig >400 2016 A1C HPLC 7573647 Hgb A1c 69158-2 7.3 % 2016 TSH [id number] TSH 1.340 uIU/mL 2016 FREE T4 8938061 T4 Free 1.60 ng/dL 2016 MEAN GLUC 4700724 Calc Mean Gluc 163 mg/dL 2016 GFR CALC 5045785 GFR Non Afr Amr >60 mL/min 2016 GFR CALC 6454852 GFR Afr Amr >60 mL/min 2016 CBC 2794536 WBC 8.1 10e9/L 2016 CBC [id number] RBC 4.41 10e12/L 2016 CBC 3790719 HEMOGLOBIN 13.2 g/dL 2016 CBC 2538242 HEMATOCRIT 39.6 % 2016 CBC 8302422 MCV 89.8 fL 2016 CBC 0104840 MCH 29.9 pg 2016 CBC 3904993 MCHC 33.3 g/dL 2016 CBC [id number] PLATELET COUNT 298 10e9/L 2016 CBC 8852664 Mean Plt Volume 10.5 fL 2016 CBC 3863421 Neut Auto 61.3 % 2016 CBC [id number] Lymph Auto 26.3 % 2016 CBC 1665680 [place] Auto 7.7 % 2016 CBC 0324608 RDW 13.6 % 2016 CBC 4769262 Eos Auto 4.2 % 2016 CBC 6892154 Baso Auto 0.5 % 2016 CBC 3627479 Neutrophil Abs 4.97 10e9/L 2016 CBC 6953198 Lymphocyte Abs 2.13 10e9/L 2016 CBC 0038719 Monocyte Abs 0.62 10e9/L 2016 CBC 1965608 Eosinophil Abs 0.34 10e9/L 2016 CBC 0003079 RDW-SD 44.1 fL 2016 CBC 4220452 Basophil Abs 0.04 10e9/L 2016 CHEM 14 5969359 AST 19 U/L 2016 CHEM 14 7058120 ALT 26 U/L 2016 CHEM 14 4917762 BUN 20 mg/dL 2016 CHEM 14 4786249 ALBUMIN 4.1 g/dL 2016 CHEM 14 7138581 CHLORIDE 99 mmol/L 2016 CHEM 14 5061015 Bili Total 0.3 mg/dL 2016 CHEM 14 3818307 ALK PHOS 55 U/L 2016 CHEM 14 9234445 SODIUM 135 mmol/L 2016 CHEM 14 2828865 CREATININE 0.87 mg/dL 2016 CHEM 14 0830102 CALCIUM 9.3 mg/dL 2016 CHEM 14 2458013 POTASSIUM 4.0 mmol/L 2016 CHEM 14 3180576 TOTAL PROTEIN 7.0 g/dL 2016 CHEM 14 4161788 GLUCOSE 149 mg/dL 2016 CHEM 14 1386645 Bicarbonate 26 mmol/L 2016 CHEM 14 5704680 AGAP 10 mmol/L 2016 Review of Systems [...] masses 09/17/2018 None Full Exam - General 1995 Ears/Nose/Throat external ear Overall: normal mastoids 09/17/2018 None Full Exam - General 1995 Ears/Nose/Throat external nose Overall: benign appearance 09/17/2018 None Full Exam - General 1995 Ears/Nose/Throat external nose Overall: no masses 09/17/2018 None Full Exam - General 1995 Ears/Nose/Throat external nose Overall: non-tender 09/17/2018 None Full Exam - General 1995 Ears/Nose/Throat otoscopic exam Overall: external auditory canals clear 09/17/2018 None Full Exam - General 1995 Ears/Nose/Throat otoscopic exam Overall: tympanic membranes clear 09/17/2018 None Full Exam - General 1995 Ears/Nose/Throat lips/teeth/gingiva Overall: benign lips 09/17/2018 None Full Exam - General 1995 Ears/Nose/Throat lips/teeth/gingiva Overall: normal dentition 09/17/2018 None Full Exam - General 1995 Ears/Nose/Throat lips/teeth/gingiva Overall: benign gingiva 09/17/2018 None Full Exam - General 1995 Ears/Nose/Throat lips/teeth/gingiva Overall: no masses 09/17/2018 None Full Exam - General 1995 Ears/Nose/Throat oral cavity/pharynx/larynx Overall: oral mucosa clear 09/17/2018 None Full Exam - General 1995 Ears/Nose/Throat oral cavity/pharynx/larynx Overall: oropharyngeal mucosa clear [...] accomodation 06/04/2018 None Full Exam - General 1994 Ears/Nose/Throat external ear Overall: normal appearance 06/04/2018 None Full Exam - General 1994 Ears/Nose/Throat external ear Overall: no masses 06/04/2018 None Full Exam - General 1994 Ears/Nose/Throat external ear Overall: normal mastoids 06/04/2018 None Full Exam - General 1994 Ears/Nose/Throat external nose Overall: benign appearance 06/04/2018 None Full Exam - General 1994 Ears/Nose/Throat external nose Overall: no masses 06/04/2018 None Full Exam - General 1994 Ears/Nose/Throat external nose Overall: non-tender 06/04/2018 None Full Exam - General 1994 [...] gingiva 06/04/2018 None Full Exam - General 1994 Ears/Nose/Throat lips/teeth/gingiva Overall: no masses 06/04/2018 None [...] sounds 06/04/2018 None Full Exam - General 1995 Musculoskeletal gait and station Overall: normal gait [...] mastoids 03/11/2018 None Full Exam - General 1995 Ears/Nose/Throat external nose Overall: benign appearance 03/11/2018 None Full Exam - General 1995 Ears/Nose/Throat external nose Overall: no masses 03/11/2018 None Full Exam - General 1994 Ears/Nose/Throat external nose Overall: non-tender 03/11/2018 None Full Exam - General 1994 Ears/Nose/Throat otoscopic exam Overall: external auditory canals clear 03/11/2018 None Full Exam - General 1994 Ears/Nose/Throat otoscopic exam Overall: tympanic membranes clear 03/11/2018 None Full Exam - General 1994 Ears/Nose/Throat lips/teeth/gingiva Overall: benign lips 03/11/2018 None Full Exam - General 1994 Ears/Nose/Throat lips/teeth/gingiva Overall: normal dentition 03/11/2018 None Full Exam - General 1994 Ears/Nose/Throat lips/teeth/gingiva Overall: benign gingiva 03/11/2018 None Full Exam - General 1994 Ears/Nose/Throat lips/teeth/gingiva Overall: no masses 03/11/2018 None Full Exam - General 1994 Ears/Nose/Throat oral cavity/pharynx/larynx Overall: oral mucosa clear 03/11/2018 None Full Exam - General 1994 Ears/Nose/Throat oral cavity/pharynx/larynx Overall: oropharyngeal mucosa clear 03/11/2018 None Full Exam - General 1994 Ears/Nose/Throat oral cavity/pharynx/larynx Overall: no masses 03/11/2018 [...] 4: J0696 05/28/2017 THER/PROPH/DIAG INJ SC/IM CPT-4: 03786 05/19/2017 KETOROLAC TROMETHAMINE INJ CPT-4: J1885 05/19/2017 TRIAMCINOLONE ACET INJ NOS CPT-4: J3301 03/26/2016 TRIAMCINOLONE ACET INJ NOS CPT-4: J3301 06/07/2015 THER/PROPH/DIAG INJ SC/IM CPT-4: 12086 12/07/2014 TRIAMCINOLONE ACET INJ NOS CPT-4: J3301 12/07/2014 Vital Signs Date Vital 09/17/2018 Blood Pressure 1: 132/68 Code: 8480-6 BMI: 31.3 Code: 05666-8 Heart Rate 1: 88 bpm Height: 5'7" SpO2: 99% Weight: 200 lbs 07/09/2018 Blood Pressure 1: 138/82 Code: 8480-6 BMI: 31.6 Code: 24257-7 Heart Rate 1: 82 bpm Height: 5'7" SpO2: 96% Weight: 202 lbs 06/04/2018 Blood Pressure 1: 144/76 Code: 8480-6 BMI: 32.0 Code: 40602-4 Heart Rate 1: 82 bpm Height: 5'7" SpO2: 96% Temperature: 36.5 (C) / 97.7 (F) Weight: 204 lbs 03/11/2018 Blood Pressure 1: 142/82 Code: 8480-6 BMI: 32.1 Code: 66702-3 Heart Rate 1: 87 bpm Height: 5'7" SpO2: 97% Weight: 205 lbs 02/17/2018 Blood Pressure 1: 132/76 Code: 8480-6 BMI: 33.5 Code: 90440-8 Heart Rate 1: 92 bpm Height: 5'7" SpO2: 98% Weight: 214 lbs 12/21/2017 Blood Pressure 1: 154/78 Code: 8480-6 BMI: 33.5 Code: 63006-0 Heart Rate 1: 93 bpm Height: 5'7" SpO2: 96% Weight: 214 lbs 11/30/2017 Blood Pressure 1: 148/88 Code: 8480-6 BMI: 33.5 Code: 29549-5 Heart Rate 1: 80 bpm Height: 5'7" SpO2: 97% Temperature: 36.9 (C) / 98.5 (F) Weight: 214 lbs 05/28/2017 Blood Pressure 1: 128/70 Code: 8480-6 BMI: 31.3 Code: 77868-2 Heart Rate 1: 103 bpm Height: 5'7" SpO2: 98% Temperature: 36.7 (C) / 98.1 (F) Weight: 200 lbs 05/19/2017 Blood Pressure 1: 150/72 Code: 8480-6 04/16/2017 Blood Pressure 1: 146/88 Code: 8480-6 BMI: 31.3 Code: 41589-9 Heart Rate 1: 96 bpm Height: 5'7" SpO2: 94% Temperature: 37.2 (C) / 99.0 (F) Weight: 200 lbs 02/10/2017 Blood Pressure 1: 132/72 Code: 8480-6 BMI: 31.3 Code: 93675-2 Heart Rate 1: 99 bpm Height: 5'7" SpO2: 97% Weight: 200 lbs 02/02/2017 Blood Pressure 1: 140/68 Code: 8480-6 BMI: 31.4 Code: 81321-5 Heart Rate 1: 82 bpm Height: 5'7" SpO2: 97% Weight: 200 lbs 8 oz 01/27/2017 Blood Pressure 1: 142/80 Code: 8480-6 BMI: 32.2 Code: 61907-1 Height: 5'7" Temperature: 37.2 (C) / 98.9 (F) Weight: 205 lbs 8 oz 11/07/2016 Blood Pressure 1: 148/82 Code: 8480-6 BMI: 32.7 Code: 32182-3 Heart Rate 1: 106 bpm Height: 5'7" SpO2: 97% Weight: 209 lbs 03/26/2016 Blood Pressure 1: 140/86 Code: 8480-6 Heart Rate 1: 90 bpm Height: SpO2: 97% Weight: 12/13/2015 Blood Pressure 1: 132/72 Code: 8480-6 BMI: 31.2 Code: 66234-8 Heart Rate 1: 84 bpm Height: 5'7" SpO2: 98% Weight: 199 lbs 08/15/2015 Blood Pressure 1: 138/88 Code: 8480-6 BMI: 32.1 Code: 51542-5 Heart Rate 1: 94 bpm Height: 5'7" SpO2: 97% Weight: 205 lbs 06/13/2015 Blood Pressure 1: 188/88 Code: 8480-6 Blood Pressure 1: 146/78 Code: 8480-6 BMI: 32.6 Code: 19924-5 Heart Rate 1: 97 bpm Height: 5'7" SpO2: 98% Weight: 208 lbs 06/07/2015 Blood Pressure 1: 128/82 Code: 8480-6 BMI: 32.4 Code: 61228-7 Heart Rate 1: 80 bpm Height: 5'7" SpO2: 99% Weight: 207 lbs 03/13/2015 Blood Pressure 1: 124/70 Code: 8480-6 BMI: 31.6 Code: 61501-6 Heart Rate 1: 103 bpm Height: 5'7" Respiratory Rate: 18 bpm SpO2: 97% Temperature: 36.6 (C) / 97.8 (F) Weight: 202 lbs 12/07/2014 Blood Pressure 1: 140/80 Code: 8480-6 BMI: 32.3 Code: 41191-9 Heart Rate 1: 97 bpm Height: 5'7" SpO2: 99% Weight: 206 lbs 09/07/2014 Blood Pressure 1: 132/78 Code: 8480-6 BMI: 31.2 Code: 78784-3 Heart Rate 1: 92 bpm Height: 5'7" [...] with shunt placement- 6-12-15- Dr Ruvalcaba in [place] did surgery headache Onset and Resolution ongoing [...] data Encounters Encounter Performer Location Codes Date ([id number]) 13816 EST. PATIENT, LEVEL IV Diagnosis: Type 2 diabetes mellitus with hyperglycemia[ICD10: E11.65] Diagnosis: Essential (primary) hypertension[ICD10: I10] Kaylan Dunham MD, [facility] CPT-4: 35484 09/17/2018 ([id number] EST. PATIENT, LEVEL IV Diagnosis: Type 2 diabetes mellitus with hyperglycemia[ICD10: E11.65] Diagnosis: Essential (primary) hypertension[ICD10: I10] Diagnosis: Acute recurrent maxillary sinusitis[ICD10: J01.01] Kaylan Dunham MD, [facility] CPT-4: 81356 07/09/2018 [id number]) 93804 EST. PATIENT, LEVEL IV Diagnosis: Type 2 diabetes mellitus with hyperglycemia[ICD10: E11.65] Diagnosis: Mixed hyperlipidemia[ICD10: E78.2] Diagnosis: Other allergic rhinitis[ICD10: J30.89] Kaylan Dunham MD, [facility] CPT-4: 24601 06/04/2018 ([id number]) 62146 EST. PATIENT, LEVEL IV Diagnosis: Type 2 diabetes mellitus with hyperglycemia[ICD10: E11.65] Diagnosis: Mixed hyperlipidemia[ICD10: E78.2] Diagnosis: Essential (primary) hypertension[ICD10: I10] Kaylan Dunham MD, [facility] CPT-4: 07427 03/11/2018 83816 EST. PATIENT, LEVEL III Diagnosis: Paresthesia of skin[ICD10: R20.2] Aditi Dunham MD, [facility] CPT-4: 96166 02/17/2018 66923 EST. PATIENT, LEVEL IV Diagnosis: Pain in right shoulder[ICD10: M25.511] Diagnosis: Rash and other nonspecific skin eruption[ICD10: R21] Aditi Dunham MD, [facility] CPT-4: 76288 12/21/2017 75041 EST. PATIENT, LEVEL IV Diagnosis: Other acute sinusitis[ICD10: J01.80] Diagnosis: Other allergic rhinitis[ICD10: J30.89] Diagnosis: Localized edema[ICD10: R60.0] Aditi Dunham MD, [facility] CPT-4: 70007 11/30/2017 ([id number]) 42546 EST. PATIENT, LEVEL III Diagnosis: Acute recurrent maxillary sinusitis[ICD10: J01.01] Diagnosis: Cough[ICD10: R05] Tavia Dunham MD, [facility] CPT-4: 63360 05/28/2017 ([id number]) 43576 EST. PATIENT, LEVEL III Diagnosis: Acute laryngopharyngitis[ICD10: J06.0] Diagnosis: Cough[ICD10: R05] Tavia Dunham MD, [facility] CPT-4: 13877 04/16/2017 20690 EST. PATIENT, LEVEL III Diagnosis: Left lower quadrant pain[ICD10: R10.32] Aditi Dunham MD, [facility] CPT-4: 58067 02/10/2017 ([id number]) 91819 EST. PATIENT, LEVEL III Diagnosis: Pain in thoracic spine[ICD10: M54.6] Diagnosis: Other muscle spasm[ICD10: M62.838] Tavia Dunham MD, [facility] CPT- 4: 81191 02/02/2017 ([id number]) 37953 EST. PATIENT, LEVEL IV Diagnosis: Other acute pancreatitis without necrosis or infection[ICD10: K85.80] Diagnosis: Epigastric pain[ICD10: R10.13] Diagnosis: Type 2 diabetes mellitus without complications[ICD10: E11.9] Tavia Dunham MD, [facility] CPT-4: 46171 01/27/2017 83763 EST. PATIENT, LEVEL IV Diagnosis: Essential (primary) hypertension[ICD10: I10] Diagnosis: Type 1 diabetes mellitus without complications[ICD10: E10.9] Diagnosis: Other specified hypothyroidism[ICD10: E03.8] Diagnosis: Bilateral primary osteoarthritis of hip[ICD10: M16.0] Diagnosis: Actinic keratosis[ICD10: L57.0] Aditi Dunham MD, [facility] CPT-4: 52452 11/07/2016 05783 EST. PATIENT, LEVEL III Diagnosis: Other acute sinusitis[ICD10: J01.80] Diagnosis: Other allergic rhinitis[ICD10: J30.89] Diagnosis: Cough[ICD10: R05] Aditi Dunham MD, [facility] CPT-4: 78699 03/26/2016 ([id number]) 24559 EST. PATIENT, LEVEL IV Diagnosis: Essential (primary) hypertension[ICD10: I10] Diagnosis: Pure hyperglyceridemia[ICD10: E78.1] Tavia Dunham MD, [facility] CPT- 4: 98431 12/13/2015 ([id number]) 77221 EST. PATIENT, LEVEL III Diagnosis: Essential (primary) hypertension[ICD10: I10] Diagnosis: (Idiopathic) normal pressure hydrocephalus[ICD10: G91.2] Tavia Dunham MD, [facility] CPT-4: 93935 08/15/2015 33408 EST. PATIENT, LEVEL III Diagnosis: Other acute nonsuppurative otitis media, right ear[ICD10: H65.191] Diagnosis: Acute upper respiratory infection, unspecified[ICD10: J06.9] Aditi Dunham MD, [facility] CPT-4: 60586 06/13/2015 ([id number]) 96808 EST. PATIENT, LEVEL III Diagnosis: Acute recurrent maxillary sinusitis[ICD10: J01.01] Diagnosis: Allergic rhinitis due to pollen[ICD10: J30.1] Kaylan Dunham MD, [facility] CPT-4: 67129 06/07/2015 ([id number]) 17078 EST. PATIENT, LEVEL IV Diagnosis: (Idiopathic) normal pressure hydrocephalus[ICD10: G91.2] Diagnosis: Essential (primary) hypertension[ICD10: I10] Diagnosis: Dizziness and giddiness[ICD10: R42] Diagnosis: Nausea with vomiting, unspecified[ICD10: R11.2] Kaylan Dunham MD, [facility] CPT-4: 76312 03/13/2015 79541 EST. PATIENT, LEVEL III Diagnosis: Acute sinusitis, unspecified[ICD10: J01.90] Diagnosis: Allergic rhinitis, unspecified[ICD10: J30.9] Tavia Dunham MD, [facility] CPT-4: 34807 12/07/2014 ([id number]) 57422 EST. PATIENT, LEVEL IV Diagnosis: ESSENTIAL HYPERTENSION[ICD9: 401.9] Diagnosis: DIABETES TYPE II[ICD9: 250.00] Diagnosis: NPH (normal pressure hydrocephalus)[ICD9: 331.5] Diagnosis: Hypertriglyceridemia[ICD9: 272.1] Kaylan Dunham MD, [facility] CPT- 4: 24048 09/07/2014 ([id number]) OFFICE/OUTPATIENT VISIT NEW Diagnosis: DIABETES TYPE II[ICD9: 250.00] Diagnosis: ESSENTIAL HYPERTENSION[ICD9: 401.9] Diagnosis: NPH (normal pressure hydrocephalus)[ICD9: 331.5] Diagnosis: Abnormal gait[ICD9: 781.2] Diagnosis: VITAMIN D DEFICIENCY[ICD9: 268.9] Tavia Dunham MD, [facility] CPT- 4: 74341 08/07/2014 Plan of Care Planned Activity Notes [...] at home. 09/17/2018 Appointment: Kaylan Melendez WPtel: [phone] [phone] (30 min) Complex 09/17/2018 Patient Education: Patient Medication Summary Completed 09/17/2018 Patient Education: Hypertension Completed 09/17/2018 Patient Education: Patient Medication Summary Completed 09/13/2018 Care Plan: CBC Pending 09/13/2018 Care Plan: CHEM 14 Pending 09/13/2018 Care Plan: A1C HPLC [facility] : 57309-5 Pending 09/13/2018 Appointment: Kaylan Melendez WPtel: [phone] [phone] (15 min) Moderate 09/10/2018 Visit Plan: Hypertension [...] improvement. 07/09/2018 [facility]ment[phone] ([facility] min) Complex 07/09/2018 Patient Education: Patient [...] allergy spray. 06/04/2018 Appointment: Kaylan Melendez WPtel: [address] [place], [place] [phone] (30 min) [facility] 06/04/2018 Patient Education: Patient Medication Summary Completed 06/04/2018 Patient Education: Cholesterol Management Completed 06/04/2018 Patient Education: Patient Medication Summary Completed 05/25/2018 Care Plan: A1C HPLC [facility] : 15330-4 Pending 05/25/2018 Referral: Ammon Joiner Patient informed. [...] home. 03/11/2018 Appointment: [phone] [phone] (30 min) Complex 03/11/2018 Patient Education: Patient Medication Summary Completed 03/11/2018 Patient Education: Cholesterol Management Completed 03/11/2018 Patient Education: Hypertension Completed 03/11/2018 Care Plan: Referral Order SNOMED-CT : [id number] Pending 03/11/2018 Visit Plan: Parasthesia - ongoing for about a month - will send RX and refer pt for EMG - The pt is to use prn antiinflammatories to manage acute pain. The patient is to call the office if the pain is worsening or does not improve. 02/17/2018 Appointment: [phone] [facility] (15 min) Moderate 02/17/2018 Patient Education: Patient [...] discharge. 12/21/2017 Appointment: Aditi Hamilton WPtel: [phone] [facility] (15 min) Moderate 12/21/2017 Patient Education: Patient Medication Summary Completed 12/21/2017 Appointment: Tavia Dunham WPtel: [facility]0 [facility] (15 min) Moderate 12/02/2017 Visit Plan: Sinusitis [...] peripheral edema. 11/30/2017 Appointment: Aditi Hamilton WPtel: [facility] (15 min) Moderate 11/30/2017 Patient Education: Patient Medication Summary Completed 11/30/2017 Care Plan: Comp Metabolic Pending 11/30/2017 Care Plan: Cbc With Differential Pending 11/30/2017 Care Plan: %Hba1C LOINC : 58552-3 Pending 11/30/2017 Care Plan: Lipid Pending 11/30/2017 Care Plan: Tsh Pending 11/30/2017 Care Plan: Free T4 Pending 11/30/2017 [facility]ment[phone] ([facility] min) Moderate 11/26/2017 Appointment: Kaylan Melendez WPtel: [phone] [phone] [place] (30 min) Complex 08/13/2017 Appointment: Tavia Dunham WPtel: [phone] [facility] [place] (15 min) Moderate 08/04/2017 Appointment: Tavia Dunham WPtel: [phone] [facility] [place] (15 min) Moderate 07/20/2017 Visit Plan: [...] shot today 05/28/2017 Appointment: Tavia Dunham WPtel: [phone] [facility] [place] (30 min) Complex 05/28/2017 Patient Education: [...] patient's pharmacy. 04/16/2017 Appointment: Tavia Dunham WPtel: [phone] [facility] [place] (15 min) Moderate 04/16/2017 Patient Education: [...] or concerns. 02/10/2017 Appointment: [facility] Hamilton [phone] [facility] (15 min) Moderate 02/10/2017 Patient Education: Patient Medication Summary Completed 02/10/2017 Patient Education: Obesity Completed 02/10/2017 Visit Plan: Pain in Thoracic spine with muscle spasm - ibuprofen 600mg three times daily x 3 days, rx for cyclobenzaprine. 02/02/2017 Appointment: Tavia Dunham WPtel: [facility] (15 min) Moderate 02/02/2017 Patient Education: Patient [...] labs today. 01/27/2017 Appointment: Tavia Dunham WPtel: [facility] (15 min) Moderate 01/27/2017 Patient Education: Patient [...] pain symptoms. 11/07/2016 Appointment: [facility] Hamilton [facility]el[facility] [phone] [facility] (30 min) Complex 11/07/2016 Patient Education: Patient Medication Summary Completed [...] allergy spray. 03/26/2016 Appointment: [facility] Hamilton [facility]el[facility] [phone] [phone] (30 min) Complex 03/26/2016 Patient Education: Patient [...] to medications. 12/13/2015 Appointment: [facility] [phone] [facility] (15 min) Moderate 12/13/2015 Patient Education: Patient [...] on supplement. 08/07/2014 Appointment: Tavia Dunham WPtel: [address] [place], [place] [address] [place] (S) New Patient 08/07/2014 Patient Education: [...] readings are starting to become less controlled. INCREASE TO 45 UNITS TWICE DAILY X [...] in blood pressure readings at home. . Left side pain - negative UA [...]
--- OUTSIDE RECORDS SUMMARY | 2018-10-08 10:34 | XMS REPORT | CCD ---
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 Name Role Phone PP Unavailable CCM Unavailable Summary Purpose Interface Exchange Insurance Providers Payer name Policy type / Coverage type Covered alliance party ID Effective Begin Date Effective End Date Blue Cross Blue [facility] Blue Cross/Blue [facility] [id number] Unknown Family history Mother Diagnosis Age At Onset Cancer Unknown Arthritis Unknown Depression Unknown Hyperlipidemia Unknown Diabetes mellitus Type 2 Unknown Social History Social History Element Codes Description Effective Dates Marital status Unknown [place] 08/07/2014 Number of children Unknown 0 08/07/2014 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 08/07/[address]: 698842249 Never smoker 08/07/[address]: 990179914 Never drinks alcohol 08/07/2014 Allergies, Adverse Reactions, [...] Fill Instructions levothyroxine 125 mcg tablet RxNorm: 269496 TAKE 1 TABLET BY MOUTH ONCE DAILY 08/26/2018 No Stop Date Active levothyroxine 125 mcg tablet RxNorm: 004373 TAKE 1 TABLET BY MOUTH ONCE DAILY 08/11/2018 No Stop Date Active hydrochlorothiazide 25 mg tablet RxNorm: 447182 TAKE 1 TABLET BY MOUTH ONCE DAILY 08/02/2018 No Stop Date Active Levemir FlexTouch U-100 Insulin 100 unit/mL (3 mL) subcutaneous pen RxNorm: 909442 35-40 Unit(s) SQ BID 07/09/2018 11/05/2018 Active INCREASE TO 40 UNITS Q AM AND 35 UNTIS Q HS Levemir FlexTouch U-100 Insulin 100 unit/mL (3 mL) subcutaneous pen RxNorm: 081170 35-40 Unit(s) SQ BID 07/09/2018 07/08/2018 Inactive INCREASE TO 40 UNITS Q AM AND 35 UNTIS Q HS doxycycline hyclate 100 mg tablet RxNorm: 4166941 1 Tablet(s) PO BID 07/09/2018 07/18/2018 Inactive venlafaxine ER 150 mg capsule,extended release 24 hr RxNorm: 286818 TAKE 1 CAPSULE BY MOUTH ONCE DAILY 06/08/2018 No Stop Date Active Levemir FlexTouch U-100 Insulin 100 unit/mL (3 mL) subcutaneous pen RxNorm: 080377 30 Unit(s) SQ BID 06/04/2018 07/08/2018 Inactive update RX -increase to 35 units BID if blood sugars over 200 Augmentin 875 mg-125 mg tablet RxNorm: 419789 1 Tablet(s) PO BID 06/04/2018 06/10/2018 Inactive hydrochlorothiazide 25 mg tablet RxNorm: 607358 TAKE 1 TABLET BY MOUTH ONCE DAILY 03/23/2018 08/01/2018 Inactive Levemir FlexTouch U-100 Insulin 100 unit/mL (3 mL) subcutaneous pen RxNorm: 289536 30 Unit(s) SQ QAM and 25 Units SQ QPM 03/18/2018 06/03/2018 Inactive Levemir FlexTouch U-100 Insulin 100 unit/mL (3 mL) subcutaneous pen RxNorm: 933756 Unit(s) 03/11/2018 03/17/2018 Inactive 30 q am and 25 units q PM pravastatin 40 mg tablet RxNorm: 758955 1 Tablet(s) PO daily take with coenzyme q 10 daily 03/03/2018 02/25/2019 Active Levemir FlexTouch U-100 Insulin 100 unit/mL (3 mL) subcutaneous pen RxNorm: 342890 Unit(s) INJECT 25 UNITS SUBCUTANEOUSLY TWICE DAILY 03/03/2018 03/10/2018 Inactive pravastatin 10 mg tablet RxNorm: 035171 1 Tablet(s) PO daily take with coenzyme q 10 daily 02/26/2018 03/02/2018 Inactive prednisone 20 mg tablet RxNorm: 945855 2 Tablet(s) PO daily 02/17/2018 02/21/2018 Inactive levothyroxine 125 mcg tablet RxNorm: 871213 TAKE 1 TABLET BY MOUTH ONCE DAILY 01/11/2018 08/10/2018 Inactive cyclobenzaprine 5 mg tablet RxNorm: 292941 1 Tablet(s) PO TID as needed 12/28/2017 01/11/2018 Inactive Zorvolex 35 mg capsule RxNorm: 9760430 1 Capsule(s) PO TID as needed 12/25/2017 05/23/2018 Inactive Levemir FlexTouch U-100 Insulin 100 unit/mL (3 mL) subcutaneous pen RxNorm: 672049 INJECT 2O UNITS SUBCUTANEOUSLY TWICE DAILY 12/21/2017 03/02/2018 Inactive cyclobenzaprine 5 mg tablet RxNorm: 381539 1 Tablet(s) PO TID as needed 12/21/2017 12/25/2017 Inactive doxycycline hyclate 100 mg capsule RxNorm: 2420125 1 Capsule(s) PO BID 12/21/2017 12/30/2017 Inactive venlafaxine ER 150 mg capsule,extended release 24 hr RxNorm: 947232 TAKE 1 CAPSULE BY MOUTH ONCE DAILY 12/10/2017 06/07/2018 Inactive Singulair 10 mg tablet RxNorm: 917264 1 Tablet(s) PO daily 12/03/2017 12/02/2017 Inactive Singulair 10 mg tablet RxNorm: 942667 1 Tablet(s) PO daily 12/03/2017 01/01/2018 Inactive Zithromax Z-Kulwant 250 mg tablet RxNorm: 024356 1 Tablet(s) PO UD 12/03/2017 03/10/2018 Inactive z pack as directed Kenalog 40 mg/mL suspension for injection RxNorm: 0569755 1 Milliliter(s) Inj 11/30/2017 11/30/2017 Inactive prednisone 20 mg tablet RxNorm: 065920 2 Tablet(s) PO daily 11/30/2017 12/04/2017 Inactive Augmentin 875 mg-125 mg tablet RxNorm: 394436 1 Tablet(s) PO BID 11/27/2017 11/26/2017 Inactive Augmentin 875 mg-125 mg tablet RxNorm: 708203 1 Tablet(s) PO BID 11/27/2017 12/03/2017 Inactive Zorvolex 35 mg capsule RxNorm: 5778624 1 Capsule(s) PO TID as needed 11/09/2017 12/24/2017 Inactive hydrochlorothiazide 25 mg tablet RxNorm: 310605 1 Tablet(s) PO daily 10/22/2017 02/18/2018 Inactive enalapril maleate 5 mg tablet RxNorm: 842030 1 Tablet(s) PO daily TAKE ONE TABLET BY MOUTH ONCE DAILY 08/21/2017 02/16/2018 Inactive Levemir FlexTouch U-100 Insulin 100 unit/mL (3 mL) subcutaneous pen RxNorm: 473703 20 Unit(s) SQ BID 07/30/2017 12/20/2017 Inactive levothyroxine 125 mcg tablet RxNorm: 900650 TAKE ONE TABLET BY MOUTH ONCE DAILY 06/29/2017 01/10/2018 Inactive venlafaxine ER 150 mg capsule,extended release 24 hr RxNorm: 328714 1 Capsule(s) PO daily TAKE ONE CAPSULE BY MOUTH ONCE DAILY 06/08/2017 12/04/2017 Inactive prednisone 20 mg tablet RxNorm: 231504 1 Tablet(s) PO daily 06/02/2017 06/06/2017 Inactive prednisone 20 mg tablet RxNorm: 914517 1 Tablet(s) PO daily 06/01/2017 06/05/2017 Inactive Kenalog 40 mg/mL suspension for injection RxNorm: 1002634 1 Milliliter(s) Inj 05/28/2017 05/28/2017 Inactive cefdinir 300 mg capsule RxNorm: 580850 1 Capsule(s) PO BID 05/28/2017 06/03/2017 Inactive ceftriaxone 500 mg solution for injection RxNorm: 3215763 1 Inj 05/28/2017 05/28/2017 Inactive prednisone 20 mg tablet RxNorm: 210388 1 Tablet(s) PO daily 05/28/2017 05/31/2017 Inactive Keflex 500 mg capsule RxNorm: 420633 1 Capsule(s) PO TID 05/26/2017 06/01/2017 Inactive Keflex 500 mg capsule RxNorm: 162944 1 Capsule(s) PO TID 05/26/2017 05/25/2017 Inactive hydrocodone 10 mg-chlorpheniramine 8 mg/5 mL oral susp extend.rel 12hr RxNorm: 1682601 5-10 Milliliter(s) PO TID as needed 04/16/2017 No Stop Date Active Tussionex Pennkinetic ER 10 mg-8 mg/5 mL suspension,extended release RxNorm: 6516863 5 Milliliter(s) PO BID 04/16/2017 04/27/2017 Inactive Zithromax Z-Kulwant 250 mg tablet RxNorm: 904916 1 Tablet(s) PO UD 03/25/2017 04/15/2017 Inactive z pack as directed enalapril maleate 5 mg tablet RxNorm: 807224 TAKE ONE TABLET BY MOUTH ONCE DAILY 02/26/2017 08/20/2017 Inactive Levemir FlexTouch 100 unit/mL (3 mL) subcutaneous insulin pen RxNorm: 586783 20 Unit(s) SQ BID 02/10/2017 07/11/2017 Inactive Zorvolex 35 mg capsule RxNorm: 7250364 1 Capsule(s) PO TID as needed 02/10/2017 11/08/2017 Inactive valacyclovir 1 gram tablet RxNorm: 573339 1 Tablet(s) PO TID 02/10/2017 02/16/2017 Inactive Levemir FlexTouch 100 unit/mL (3 mL) subcutaneous insulin pen RxNorm: 606982 20 Unit(s) SQ BID 02/04/2017 02/09/2017 Inactive cyclobenzaprine 5 mg tablet RxNorm: 890063 1 Tablet(s) PO qhs x 3 nights and TID as needed muscle spasms 02/02/2017 No Stop Date Active levothyroxine 125 mcg tablet RxNorm: 785027 TAKE ONE TABLET BY MOUTH ONCE DAILY 12/08/2016 06/05/2017 Inactive venlafaxine ER 150 mg capsule,extended release 24 hr RxNorm: 937708 TAKE ONE CAPSULE BY MOUTH ONCE DAILY 12/01/2016 05/29/2017 Inactive Zorvolex 35 mg capsule RxNorm: 4960263 1 Capsule(s) PO TID as needed do not take meloxicam at the same time 11/07/2016 No Stop Date Active enalapril maleate 5 mg tablet RxNorm: 256977 TAKE ONE TABLET BY MOUTH ONCE DAILY 10/31/2016 12/29/2016 Inactive meloxicam 15 mg tablet RxNorm: 589935 TAKE ONE TABLET BY MOUTH ONCE DAILY 10/30/2016 03/10/2018 Inactive meloxicam 15 mg tablet RxNorm: 102150 TAKE ONE TABLET BY MOUTH ONCE DAILY 10/24/2016 10/29/2016 Inactive enalapril maleate 5 mg tablet RxNorm: 783862 TAKE ONE TABLET BY MOUTH ONCE DAILY 10/24/2016 10/30/2016 Inactive venlafaxine ER 150 mg capsule,extended release 24 hr RxNorm: 305190 TAKE ONE CAPSULE BY MOUTH ONCE DAILY 06/16/2016 11/12/2016 Inactive meloxicam 15 mg tablet RxNorm: 932355 TAKE ONE TABLET BY MOUTH ONCE DAILY 06/09/2016 10/06/2016 Inactive enalapril maleate 5 mg tablet RxNorm: 433982 TAKE ONE TABLET BY MOUTH ONCE DAILY 06/02/2016 09/29/2016 Inactive Zithromax Z-Kulwant 250 mg tablet RxNorm: 634566 1 Tablet(s) PO UD 05/21/2016 06/15/2016 Inactive levothyroxine 125 mcg tablet RxNorm: 281811 Tablet(s) TAKE ONE TABLET BY MOUTH ONCE DAILY 04/15/2016 10/11/2016 Inactive Levaquin 500 mg tablet RxNorm: 534919 1 Tablet(s) PO daily 04/03/2016 04/09/2016 Inactive Levaquin 500 mg tablet RxNorm: 797670 1 Tablet(s) PO daily 04/03/2016 04/02/2016 Inactive prednisone 20 mg tablet RxNorm: 344865 2 Tablet(s) PO daily 03/28/2016 04/01/2016 Inactive Zithromax Z-Kulwant 250 mg tablet RxNorm: 263566 1 Tablet(s) PO UD 03/26/2016 03/30/2016 Inactive zpack Kenalog 40 mg/mL suspension for injection RxNorm: 3701844 Milliliter(s) Inj 03/26/2016 03/26/2016 Inactive Zofran ODT 4 mg disintegrating tablet RxNorm: 414283 DISSOLVE ONE TABLET IN MOUTH EVERY 6 HOURS NEEDED 02/22/2016 02/29/2016 Inactive venlafaxine ER 150 mg capsule,extended release 24 hr RxNorm: 487804 TAKE ONE CAPSULE BY MOUTH ONCE DAILY 02/18/2016 06/15/2016 Inactive meloxicam 15 mg tablet RxNorm: 619356 TAKE ONE TABLET BY MOUTH ONCE DAILY 02/04/2016 06/02/2016 Inactive aspirin 81 mg chewable tablet RxNorm: 253114 1 Tablet(s) PO daily 12/13/2015 12/06/2016 Inactive biotin 2,500 mcg tablet RxNorm: 392646 1 Tablet(s) PO daily 12/13/2015 09/07/2016 Inactive hydrochlorothiazide 25 mg tablet RxNorm: 661198 1 Tablet(s) PO daily 12/13/2015 04/10/2016 Inactive enalapril maleate 5 mg tablet RxNorm: 790213 TAKE ONE TABLET BY MOUTH ONCE DAILY 11/22/2015 05/19/2016 Inactive venlafaxine ER 150 mg capsule,extended release 24 hr RxNorm: 203623 TAKE ONE CAPSULE BY MOUTH ONCE DAILY 11/14/2015 02/11/2016 Inactive levothyroxine 125 mcg tablet RxNorm: 406856 Tablet(s) TAKE ONE TABLET BY MOUTH ONCE DAILY 11/06/2015 04/14/2016 Inactive levothyroxine 125 mcg tablet RxNorm: 499461 Tablet(s) TAKE ONE TABLET BY MOUTH ONCE DAILY 08/06/2015 11/03/2015 Inactive meclizine 25 mg tablet RxNorm: 218968 1/2-1 Tablet(s) PO Q6 as needed 07/16/2015 No Stop Date Active Flonase Allergy Relief 50 mcg/actuation nasal spray,suspension RxNorm: 1 Manti NASAL daily 06/13/2015 No Stop Date Active prednisone 20 mg tablet RxNorm: 165427 2 Tablet(s) PO daily 06/13/2015 06/17/2015 Inactive Augmentin 875 mg-125 mg tablet RxNorm: 820975 1 Tablet(s) PO BID 06/13/2015 06/19/2015 Inactive Zithromax Z-Kulwant 250 mg tablet RxNorm: 779801 1 Tablet(s) PO UD 06/07/2015 06/11/2015 Inactive zpack Kenalog 40 mg/mL suspension for injection RxNorm: 2022294 Milliliter(s) Inj 06/07/2015 06/07/2015 Inactive venlafaxine ER 150 mg capsule,extended release 24 hr RxNorm: 880444 TAKE ONE CAPSULE BY MOUTH ONCE DAILY 05/14/2015 11/09/2015 Inactive Augmentin 500 mg-125 mg tablet RxNorm: 428633 1 Tablet(s) PO TID 04/25/2015 05/04/2015 Inactive Augmentin 500 mg-125 mg tablet RxNorm: 598367 1 Tablet(s) PO TID 04/25/2015 04/24/2015 Inactive pravastatin 10 mg tablet RxNorm: 955746 1 Tablet(s) PO daily take with coenzyme q 10 daily 03/21/2015 03/20/2015 Inactive DC crestor pravastatin 10 mg tablet RxNorm: 814131 1 Tablet(s) PO daily take with coenzyme q 10 daily 03/21/2015 07/18/2015 Inactive DC crestor Zofran ODT 4 mg disintegrating tablet RxNorm: 441579 1 Tablet(s) PO Q6 PRN 03/13/2015 02/21/2016 Inactive levothyroxine 125 mcg tablet RxNorm: 399066 TAKE ONE TABLET BY MOUTH ONCE DAILY 02/13/2015 08/05/2015 Inactive meloxicam 15 mg tablet RxNorm: 536255 1 Tablet(s) PO daily 01/28/2015 01/22/2016 Inactive Zofran 4 mg tablet RxNorm: 228235 1 Tablet(s) PO Q6-8H as needed nausea 01/24/2015 No Stop Date Active Trulicity 1.5 mg/0.5 mL subcutaneous pen injector RxNorm: 8838216 0.75mg Milliliter(s) SQ QW 01/10/2015 03/10/2018 Inactive venlafaxine ER 150 mg capsule,extended release 24 hr RxNorm: 672352 1 Capsule(s) PO daily 01/10/2015 05/09/2015 Inactive enalapril maleate 5 mg tablet RxNorm: 872881 1 Tablet(s) PO daily 01/04/2015 07/02/2015 Inactive amoxicillin 500 mg tablet RxNorm: 370349 1 Tablet(s) PO BID 12/07/2014 12/06/2014 Inactive Probiotic & Acidophilus 300 million cell-250 mg capsule RxNorm: 1 Capsule(s) PO BID 12/07/2014 12/16/2014 Inactive amoxicillin 500 mg tablet RxNorm: 503886 1 Tablet(s) PO BID 12/07/2014 12/16/2014 Inactive Kenalog 40 mg/mL suspension for injection RxNorm: 5344166 1 Milliliter(s) Inj 12/07/2014 12/07/2014 Inactive meloxicam 15 mg tablet RxNorm: 804698 1 Tablet(s) PO daily 10/24/2014 10/23/2014 Inactive meloxicam 15 mg tablet RxNorm: 785246 1 Tablet(s) PO daily 10/24/2014 01/27/2015 Inactive azithromycin 500 mg tablet RxNorm: 218672 1 Tablet(s) PO daily 10/11/2014 10/15/2014 Inactive azithromycin 500 mg tablet RxNorm: 937623 1 Tablet(s) PO daily 10/11/2014 10/10/2014 Inactive levothyroxine 125 mcg tablet RxNorm: 109681 1 Tablet(s) PO daily 10/06/2014 02/02/2015 Inactive enalapril maleate 5 mg tablet RxNorm: 342265 1 Tablet(s) PO daily 08/29/2014 12/26/2014 Inactive enalapril maleate 5 mg tablet RxNorm: 670603 1 Tablet(s) PO daily 08/25/2014 08/28/2014 Inactive Medroxy oral RxNorm: 4593200 oral No Start Date Active Vitamin D3 5,000 unit tablet RxNorm: 414349 1 Tablet(s) PO daily No Start Date Active fluconazole 200 mg tablet RxNorm: 548184 Tablet(s) PO No Start Date Active estradiol 2 mg tablet RxNorm: 178056 1 Tablet(s) PO daily No Start Date Active fenofibrate nanocrystallized 145 mg tablet RxNorm: 456756 1 Tablet(s) PO daily No Start Date Active hydrocodone 5 mg-acetaminophen 325 mg tablet RxNorm: 880577 1-2 Tablet(s) PO Q4-6H as needed No Start Date Active enalapril maleate 5 mg tablet RxNorm: 605005 1 Tablet(s) PO daily No Start Date 08/24/2014 Inactive glimepiride 4 mg tablet RxNorm: 615435 1 Tablet(s) PO daily No Start Date 01/26/2017 Inactive meclizine 25 mg tablet RxNorm: 653895 1/2-1 Tablet(s) PO Q6 as needed No Start Date 07/15/2015 Inactive Trulicity 0.75 mg/0.5 mL subcutaneous pen injector RxNorm: 3801972 0.75mg Milliliter(s) SQ QW No Start Date 01/09/2015 Inactive metformin 1,000 mg tablet RxNorm: 284764 Tablet(s) PO BID No Start Date 01/26/2017 Inactive venlafaxine ER 150 mg capsule,extended release 24 hr RxNorm: 630726 1 Capsule(s) PO daily No Start Date 01/09/2015 Inactive meloxicam 15 mg tablet RxNorm: 818833 1 Tablet(s) PO daily No Start Date 10/23/2014 Inactive levothyroxine 125 mcg tablet RxNorm: 422352 1 Tablet(s) PO daily No Start Date 10/05/2014 Inactive Levemir FlexTouch 100 unit/mL (3 mL) subcutaneous insulin pen RxNorm: 653627 15 Unit(s) SQ daily No Start Date 02/03/2017 Inactive Zithromax Z-Kulwant 250 mg tablet RxNorm: 353813 1 Tablet(s) PO UD No Start Date 05/20/2016 Inactive Fish Oil 1,000 mg capsule RxNorm: 1 Capsule(s) PO BID No Start Date 11/04/2016 Inactive Zofran 4 mg tablet RxNorm: 643810 1 Tablet(s) PO Q6-8H as needed nausea No Start Date 01/23/2015 Inactive Crestor 10 mg tablet RxNorm: 409953 1 Tablet(s) PO daily No Start Date 03/20/2015 Inactive Medication Administered Medication Codes Instructions Start Date Status Kenalog 40 mg/mL suspension for injection RxNorm: 6525244 1Milliliter 11/30/2017 No longer Active Kenalog 40 mg/mL suspension for injection RxNorm: 2446615 1Milliliter 05/28/2017 No longer Active ceftriaxone 500 mg solution for injection RxNorm: 1479804 1 05/28/2017 No longer Active Kenalog 40 mg/mL suspension for injection RxNorm: 2076689 Milliliter 03/26/2016 No longer Active Kenalog 40 mg/mL suspension for injection RxNorm: 4648637 Milliliter 06/07/2015 No longer Active Kenalog 40 mg/mL suspension for injection RxNorm: 3735852 1Milliliter 12/07/2014 No longer Active Immunizations Vaccine [...] Item Item Code Result Date CHEM 14 [id number] AST TNP:Lab Request 01/27/2017 CHEM 14 [id number] ALT TNP:Lab Request 01/27/2017 CHEM 14 [id number] BUN TNP:Lab Request 01/27/2017 CHEM 14 [id number] ALBUMIN TNP:Lab Request 01/27/2017 CHEM 14 [id number] CHLORIDE TNP:Lab Request 01/27/2017 CHEM 14 [id number] Bili Total TNP:Lab Request 01/27/2017 CHEM 14 [id number] ALK PHOS TNP:Lab Request 01/27/2017 CHEM 14 [id number] SODIUM TNP:Lab Request 01/27/2017 CHEM 14 [id number] CREATININE TNP:Lab Request 01/27/2017 CHEM 14 [id number] CALCIUM TNP:Lab Request 01/27/2017 CHEM 14 [id number] POTASSIUM TNP:Lab Request 01/27/2017 CHEM 14 [id number] TOTAL PROTEIN TNP:Lab Request 01/27/2017 CHEM 14 [id number] GLUCOSE TNP:Lab Request 01/27/2017 CHEM 14 [id number] Bicarbonate TNP:Lab Request 01/27/2017 CHEM 14 [id number] AGAP TNP:Lab Request 01/27/2017 AMYLASE [id number] Amylase Lvl TNP:Lab Request 01/27/2017 LIPID GRP CHOLESTEROL 273 mg/dL 2016 LIPID GRP Triglyceride 583 mg/dL 2016 LIPID GRP HDL CHOLESTEROL 48 mg/dL 2016 LIPID GRP Chol/HDL Ratio 5.69 ratio 2016 LIPID GRP NON-HDL Chol 225 mg/dL 2016 LIPID GRP LDL Cholesterol N/A Trig >400 2016 A1C HPLC 8429652 Hgb A1c 02236-7 7.3 % 2016 TSH 4930445 TSH 1.340 uIU/mL 2016 FREE T4 7165258 T4 Free 1.60 ng/dL 2016 MEAN GLUC 7544490 Calc Mean Gluc 163 mg/dL 2016 GFR CALC 4162141 GFR Non Afr Amr >60 mL/min 2016 GFR CALC 5488256 GFR Afr Amr >60 mL/min 2016 CBC 9793541 WBC 8.1 10e9/L 2016 CBC 8380052 RBC 4.41 10e12/L 2016 CBC 1418498 HEMOGLOBIN 13.2 g/dL 2016 CBC 4911928 HEMATOCRIT 39.6 % 2016 CBC 5832702 MCV 89.8 fL 2016 CBC 8995995 MCH 29.9 pg 2016 CBC 3742256 MCHC 33.3 g/dL 2016 CBC 5581218 PLATELET COUNT 298 10e9/L 2016 CBC 3387908 Mean Plt Volume 10.5 fL 2016 CBC 7451124 Neut Auto 61.3 % 2016 CBC 5141814 Lymph Auto 26.3 % 2016 CBC 3740412 [place] Auto 7.7 % 2016 CBC 6967935 RDW 13.6 % 2016 CBC 9322207 Eos Auto 4.2 % 2016 CBC 5160897 Baso Auto 0.5 % 2016 CBC 7372277 Neutrophil Abs 4.97 10e9/L 2016 CBC 0828824 Lymphocyte Abs 2.13 10e9/L 2016 CBC 4608938 Monocyte Abs 0.62 10e9/L 2016 CBC 5722632 Eosinophil Abs 0.34 10e9/L 2016 CBC 0764502 RDW-SD 44.1 fL 2016 CBC 2005176 Basophil Abs 0.04 10e9/L 2016 CHEM 14 6617375 AST 19 U/L 2016 CHEM 14 [id number] ALT 26 U/L 2016 CHEM 14 9347013 BUN 20 mg/dL 2016 CHEM 14 8425298 ALBUMIN 4.1 g/dL 2016 CHEM 14 0069111 CHLORIDE 99 mmol/L 2016 CHEM 14 2756137 Bili Total 0.3 mg/dL 2016 CHEM 14 3762602 ALK PHOS 55 U/L 2016 CHEM 14 0205730 SODIUM 135 mmol/L 2016 CHEM 14 1937598 CREATININE 0.87 mg/dL 2016 CHEM 14 9423832 CALCIUM 9.3 mg/dL 2016 CHEM 14 7811177 POTASSIUM 4.0 mmol/L 2016 CHEM 14 3008207 TOTAL PROTEIN 7.0 g/dL 2016 CHEM 14 0960741 GLUCOSE 149 mg/dL 2016 CHEM 14 8934456 Bicarbonate 26 mmol/L 2016 CHEM 14 8052205 AGAP 10 mmol/L 2016 Review of Systems [...] 4: J0696 05/28/2017 THER/PROPH/DIAG INJ SC/IM CPT-4: 78859 05/19/2017 KETOROLAC TROMETHAMINE INJ CPT-4: J1885 05/19/2017 TRIAMCINOLONE ACET INJ NOS CPT-4: J3301 03/26/2016 TRIAMCINOLONE ACET INJ NOS CPT-4: J3301 06/07/2015 THER/PROPH/DIAG INJ SC/IM CPT-4: 07728 12/07/2014 TRIAMCINOLONE ACET INJ NOS CPT-4: J3301 12/07/2014 Vital Signs Date Vital 09/17/2018 Blood Pressure 1: 132/68 Code: 8480-6 BMI: 31.3 Code: 16562-6 Heart Rate 1: 88 bpm Height: 5'7" SpO2: 99% Weight: 200 lbs 07/09/2018 Blood Pressure 1: 138/82 Code: 8480-6 BMI: 31.6 Code: 71782-1 Heart Rate 1: 82 bpm Height: 5'7" SpO2: 96% Weight: 202 lbs 06/04/2018 Blood Pressure 1: 144/76 Code: 8480-6 BMI: 32.0 Code: 56500-2 Heart Rate 1: 82 bpm Height: 5'7" SpO2: 96% Temperature: 36.5 (C) / 97.7 (F) Weight: 204 lbs 03/11/2018 Blood Pressure 1: 142/82 Code: 8480-6 BMI: 32.1 Code: 53020-9 Heart Rate 1: 87 bpm Height: 5'7" SpO2: 97% Weight: 205 lbs 02/17/2018 Blood Pressure 1: 132/76 Code: 8480-6 BMI: 33.5 Code: 29274-3 Heart Rate 1: 92 bpm Height: 5'7" SpO2: 98% Weight: 214 lbs 12/21/2017 Blood Pressure 1: 154/78 Code: 8480-6 BMI: 33.5 Code: 06845-2 Heart Rate 1: 93 bpm Height: 5'7" SpO2: 96% Weight: 214 lbs 11/30/2017 Blood Pressure 1: 148/88 Code: 8480-6 BMI: 33.5 Code: 84055-9 Heart Rate 1: 80 bpm Height: 5'7" SpO2: 97% Temperature: 36.9 (C) / 98.5 (F) Weight: 214 lbs 05/28/2017 Blood Pressure 1: 128/70 Code: 8480-6 BMI: 31.3 Code: 39226-2 Heart Rate 1: 103 bpm Height: 5'7" SpO2: 98% Temperature: 36.7 (C) / 98.1 (F) Weight: 200 lbs 05/19/2017 Blood Pressure 1: 150/72 Code: 8480-6 04/16/2017 Blood Pressure 1: 146/88 Code: 8480-6 BMI: 31.3 Code: 44951-6 Heart Rate 1: 96 bpm Height: 5'7" SpO2: 94% Temperature: 37.2 (C) / 99.0 (F) Weight: 200 lbs 02/10/2017 Blood Pressure 1: 132/72 Code: 8480-6 BMI: 31.3 Code: 98961-7 Heart Rate 1: 99 bpm Height: 5'7" SpO2: 97% Weight: 200 lbs 02/02/2017 Blood Pressure 1: 140/68 Code: 8480-6 BMI: 31.4 Code: 04710-7 Heart Rate 1: 82 bpm Height: 5'7" SpO2: 97% Weight: 200 lbs 8 oz 01/27/2017 Blood Pressure 1: 142/80 Code: 8480-6 BMI: 32.2 Code: 22882-6 Height: 5'7" Temperature: 37.2 (C) / 98.9 (F) Weight: 205 lbs 8 oz 11/07/2016 Blood Pressure 1: 148/82 Code: 8480-6 BMI: 32.7 Code: 04808-5 Heart Rate 1: 106 bpm Height: 5'7" SpO2: 97% Weight: 209 lbs 03/26/2016 Blood Pressure 1: 140/86 Code: 8480-6 Heart Rate 1: 90 bpm Height: SpO2: 97% Weight: 12/13/2015 Blood Pressure 1: 132/72 Code: 8480-6 BMI: 31.2 Code: 18527-5 Heart Rate 1: 84 bpm Height: 5'7" SpO2: 98% Weight: 199 lbs 08/15/2015 Blood Pressure 1: 138/88 Code: 8480-6 BMI: 32.1 Code: 35753-7 Heart Rate 1: 94 bpm Height: 5'7" SpO2: 97% Weight: 205 lbs 06/13/2015 Blood Pressure 1: 188/88 Code: 8480-6 Blood Pressure 1: 146/78 Code: 8480-6 BMI: 32.6 Code: 03022-6 Heart Rate 1: 97 bpm Height: 5'7" SpO2: 98% Weight: 208 lbs 06/07/2015 Blood Pressure 1: 128/82 Code: 8480-6 BMI: 32.4 Code: 54557-4 Heart Rate 1: 80 bpm Height: 5'7" SpO2: 99% Weight: 207 lbs 03/13/2015 Blood Pressure 1: 124/70 Code: 8480-6 BMI: 31.6 Code: 98072-9 Heart Rate 1: 103 bpm Height: 5'7" Respiratory Rate: 18 bpm SpO2: 97% Temperature: 36.6 (C) / 97.8 (F) Weight: 202 lbs 12/07/2014 Blood Pressure 1: 140/80 Code: 8480-6 BMI: 32.3 Code: 07422-4 Heart Rate 1: 97 bpm Height: 5'7" SpO2: 99% Weight: 206 lbs 09/07/2014 Blood Pressure 1: 132/78 Code: 8480-6 BMI: 31.2 Code: 16485-3 Heart Rate 1: 92 bpm Height: 5'7" [...] with shunt placement- 6-12-15- Dr Ruvalcaba in [place] did surgery headache Onset and Resolution ongoing [...] data Encounters Encounter Performer Location Codes Date ([id number]) [id number] EST. PATIENT, LEVEL IV Diagnosis: Type 2 diabetes mellitus with hyperglycemia[ICD10: E11.65] Diagnosis: Essential (primary) hypertension[ICD10: I10] Kaylan Dunham MD, [facility] CPT-4: 85460 09/17/2018 [id number] EST. PATIENT, LEVEL IV Diagnosis: Type 2 diabetes mellitus with hyperglycemia[ICD10: E11.65] Diagnosis: Essential (primary) hypertension[ICD10: I10] Diagnosis: Acute recurrent maxillary sinusitis[ICD10: J01.01] Kaylan Dunham MD, [facility] CPT-4: 29185 07/09/2018 [id number]) [id number] EST. PATIENT, LEVEL IV Diagnosis: Type 2 diabetes mellitus with hyperglycemia[ICD10: E11.65] Diagnosis: Mixed hyperlipidemia[ICD10: E78.2] Diagnosis: Other allergic rhinitis[ICD10: J30.89] Kaylan Dunham MD, [facility] CPT-4: 11890 06/04/2018 ([id number]) [id number] EST. PATIENT, LEVEL IV Diagnosis: Type 2 diabetes mellitus with hyperglycemia[ICD10: E11.65] Diagnosis: Mixed hyperlipidemia[ICD10: E78.2] Diagnosis: Essential (primary) hypertension[ICD10: I10] Kaylan Dunham MD, [facility] CPT-4: 98962 03/11/2018 [id number] EST. PATIENT, LEVEL III Diagnosis: Paresthesia of skin[ICD10: R20.2] Aditi Dunham MD, [facility] CPT-4: 34738 02/17/2018 [id number] EST. PATIENT, LEVEL IV Diagnosis: Pain in right shoulder[ICD10: M25.511] Diagnosis: Rash and other nonspecific skin eruption[ICD10: R21] Aditi Dunham MD, [facility] CPT-4: 68218 12/21/2017 [id number] EST. PATIENT, LEVEL IV Diagnosis: Other acute sinusitis[ICD10: J01.80] Diagnosis: Other allergic rhinitis[ICD10: J30.89] Diagnosis: Localized edema[ICD10: R60.0] Aditi Dunham MD, [facility] CPT-4: 23321 11/30/2017 ([id number]) 97767 EST. PATIENT, LEVEL III Diagnosis: Acute recurrent maxillary sinusitis[ICD10: J01.01] Diagnosis: Cough[ICD10: R05] Tavia Dunham MD, [facility] [facility] 75094 05/28/2017 ([id number]) 51466 EST. PATIENT, LEVEL III Diagnosis: Acute laryngopharyngitis[ICD10: J06.0] Diagnosis: Cough[ICD10: R05] Tavia Dunham MD, [facility] CPT-4: 35951 04/16/2017 [id number] EST. PATIENT, LEVEL III Diagnosis: Left lower quadrant pain[ICD10: R10.32] Aditi Dunham MD, [facility] CPT-4: 58501 02/10/2017 ([id number]) 57834 EST. PATIENT, LEVEL III Diagnosis: Pain in thoracic spine[ICD10: M54.6] Diagnosis: Other muscle spasm[ICD10: M62.838] Tavia Dunham MD, [facility] CPT- 4: 11168 02/02/2017 ([id number]) 44053 EST. PATIENT, LEVEL IV Diagnosis: Other acute pancreatitis without necrosis or infection[ICD10: K85.80] Diagnosis: Epigastric pain[ICD10: R10.13] Diagnosis: Type 2 diabetes mellitus without complications[ICD10: E11.9] Tavia Dunham MD, [facility] CPT-4: 77041 01/27/2017 81295 EST. PATIENT, LEVEL IV Diagnosis: Essential (primary) hypertension[ICD10: I10] Diagnosis: Type 1 diabetes mellitus without complications[ICD10: E10.9] Diagnosis: Other specified hypothyroidism[ICD10: E03.8] Diagnosis: Bilateral primary osteoarthritis of hip[ICD10: M16.0] Diagnosis: Actinic keratosis[ICD10: L57.0] Aditi Dunham MD, [facility] CPT-4: 68592 11/07/2016 00503 EST. PATIENT, LEVEL III Diagnosis: Other acute sinusitis[ICD10: J01.80] Diagnosis: Other allergic rhinitis[ICD10: J30.89] Diagnosis: Cough[ICD10: R05] Aditi Dunham MD, [facility] CPT-4: 06236 03/26/2016 ([id number]) 92544 EST. PATIENT, LEVEL IV Diagnosis: Essential (primary) hypertension[ICD10: I10] Diagnosis: Pure hyperglyceridemia[ICD10: E78.1] Tavia Dunham MD, [facility] CPT- 4: 95671 12/13/2015 ([id number]) 21002 EST. PATIENT, LEVEL III Diagnosis: Essential (primary) hypertension[ICD10: I10] Diagnosis: (Idiopathic) normal pressure hydrocephalus[ICD10: G91.2] Tavia Dunham MD, [facility] CPT-4: 52649 08/15/2015 34590 EST. PATIENT, LEVEL III Diagnosis: Other acute nonsuppurative otitis media, right ear[ICD10: H65.191] Diagnosis: Acute upper respiratory infection, unspecified[ICD10: J06.9] Aditi Dunham MD, [facility] CPT-4: 84219 06/13/2015 ([id number]) 97839 EST. PATIENT, LEVEL III Diagnosis: Acute recurrent maxillary sinusitis[ICD10: J01.01] Diagnosis: Allergic rhinitis due to pollen[ICD10: J30.1] Kaylan Dunham MD, [facility] CPT-4: 12117 06/07/2015 ([id number]) 15506 EST. PATIENT, LEVEL IV Diagnosis: (Idiopathic) normal pressure hydrocephalus[ICD10: G91.2] Diagnosis: Essential (primary) hypertension[ICD10: I10] Diagnosis: Dizziness and giddiness[ICD10: R42] Diagnosis: Nausea with vomiting, unspecified[ICD10: R11.2] Kaylan Dunham MD, [facility] CPT-4: 87455 03/13/2015 92581 EST. PATIENT, LEVEL III Diagnosis: Acute sinusitis, unspecified[ICD10: J01.90] Diagnosis: Allergic rhinitis, unspecified[ICD10: J30.9] Tavia Dunham MD, [facility] CPT-4: 07456 12/07/2014 ([id number]) 41967 EST. PATIENT, LEVEL IV Diagnosis: ESSENTIAL HYPERTENSION[ICD9: 401.9] Diagnosis: DIABETES TYPE II[ICD9: 250.00] Diagnosis: NPH (normal pressure hydrocephalus)[ICD9: 331.5] Diagnosis: Hypertriglyceridemia[ICD9: 272.1] Kaylan Dunham MD, [facility] CPT- 4: 79149 09/07/2014 ([id number]) OFFICE/OUTPATIENT VISIT NEW Diagnosis: DIABETES TYPE II[ICD9: 250.00] Diagnosis: ESSENTIAL HYPERTENSION[ICD9: 401.9] Diagnosis: NPH (normal pressure hydrocephalus)[ICD9: 331.5] Diagnosis: Abnormal gait[ICD9: 781.2] Diagnosis: VITAMIN D DEFICIENCY[ICD9: 268.9] Tavia Dunham MD, [facility] CPT- 4: 37619 08/07/2014 Plan of Care Planned Activity Notes [...] in blood pressure readings at home. 09/17/2018 Patient Education: Patient Medication Summary Completed 09/17/2018 Patient Education: Hypertension Completed 09/17/2018 Patient Education: Patient Medication Summary Completed 09/13/2018 Care Plan: CBC Pending 09/13/2018 Care Plan: CHEM 14 Pending 09/13/2018 Care Plan: A1C HPLC LOINC : 41589-6 Pending 09/13/2018 Appointment: Kaylan Melendez WPtel: [phone] [phone] (15 min) Moderate 09/10/2018 Visit Plan: Hypertension [...] improvement. 07/09/2018 App[facility]ment[phone] (30 min) Complex 07/09/2018 Patient Education: [...] allergy spray. 06/04/2018 Appointment: Kaylan Melendez WPtel: [address] [place], [place] [phone] (30 min) [facility] 06/04/2018 Patient Education: Patient Medication Summary Completed 06/04/2018 Patient Education: Cholesterol Management Completed 06/04/2018 Patient Education: Patient Medication Summary Completed 05/25/2018 Care Plan: A1C HPLC [facility] : 74727-5 Pending 05/25/2018 Referral: Ammon Joiner Patient informed. [...] home. 03/11/2018 Appointment: Kaylan Melendez WPtel: [phone] [phone] (30 min) Complex 03/11/2018 Patient Education: Patient Medication Summary Completed 03/11/2018 Patient Education: Cholesterol Management Completed 03/11/2018 Patient Education: Hypertension Completed 03/11/2018 Care Plan: Referral Order SNOMED-CT : [id number] Pending 03/11/2018 Visit Plan: Parasthesia - ongoing for about a month - will send RX and refer pt for EMG - The pt is to use prn antiinflammatories to manage acute pain. The patient is to call the office if the pain is worsening or does not improve. 02/17/2018 Appointment: Aditi Hamilton WPtel: [phone] (15 min) Moderate 02/17/2018 Patient Education: Patient [...] pain, worsening redness, warmth, discharge. 12/21/2017 Appointment: dAiti Hamilton WPtel: [phone] (15 min) Moderate 12/21/2017 Patient Education: Patient Medication Summary Completed 12/21/2017 Appointment: Tavia Dunham WPtel: [phone] [phone] (15 min) Moderate 12/02/2017 Visit Plan: Sinusitis [...] peripheral edema. 11/30/2017 Appointment: Aditi Hamilton WPtel: [facility] (15 min) Moderate 11/30/2017 Patient Education: Patient Medication Summary Completed 11/30/2017 Care Plan: Comp Metabolic Pending 11/30/2017 Care Plan: Cbc With Differential Pending 11/30/2017 Care Plan: %Hba1C LOINC : 63710-4 Pending 11/30/2017 Care Plan: Lipid Pending 11/30/2017 Care Plan: Tsh Pending 11/30/2017 Care Plan: Free T4 Pending 11/30/2017 Appointment: Tavia Dunham WPtel: [phone] [facility] [place] (15 min) Moderate 11/26/2017 Appointment: Kaylan Melendez WPtel: [phone] [place] (30 min) Complex 08/13/2017 Appointment: Tavia Dunham WPtel: [facility] [place] (15 min) Moderate 08/04/2017 Appointment: Tavia Dunham WPtel: [phone] [phone] (15 min) Moderate 07/20/2017 Visit Plan: Sinusitis [...] shot today 05/28/2017 Appointment: Tavia Dunham WPtel: [facility] [place] (30 min) Complex 05/28/2017 Patient Education: [...] patient's pharmacy. 04/16/2017 Appointment: Tavia Dunham WPtel: [address] [place], [place] [phone] [place] (15 min) Moderate 04/16/2017 Patient Education: [...] or concerns. 02/10/2017 Appointment: Aditi Hamilton WPtel: [facility] [place] (15 min) Moderate 02/10/2017 Patient Education: Patient Medication Summary Completed 02/10/2017 Patient Education: Obesity Completed 02/10/2017 Visit Plan: Pain in Thoracic spine with muscle spasm - ibuprofen 600mg three times daily x 3 days, rx for cyclobenzaprine. 02/02/2017 Appointment: [phone] (15 min) Moderate 02/02/2017 Patient Education: Patient [...] today. 01/27/2017 Appointment: T[facility] Dunham [facility]Ptel: [phone] [phone] (15 min) Moderate 01/27/2017 Patient Education: Patient [...] symptoms. 11/07/2016 Appointment: Aditi Hamilton WPtel: [phone] [facility] (30 min) Complex 11/07/2016 Patient Education: Patient [...] allergy spray. 03/26/2016 Appointment: [phone] (30 min) Complex 03/26/2016 Patient Education: [...] to medications. 12/13/2015 Appointment: Tavia Dunham WPtel: [address] [place] [phone] (15 min) Moderate 12/13/2015 Patient Education: Patient [...] on supplement. 08/07/2014 Appointment: Tavia Dunham WPtel: [address] [place] [phone] [place] (S) New Patient 08/07/2014 Patient Education: Patient Medication Summary Completed 08/07/2014 Patient Education: Hypertension Completed 08/07/2014 Referral: Ammon Joiner Referral Appointment Requested Instructions Comment . Acute Sinusitis - Tenderness of frontal and maxillary sinuses. Nasal congestion. Will prescribe Amoxicillin 500 mg PO BID for 10 days. Kenalog shot today. Follow up if symptoms do not improve, or get worse, or with any other concern. Continue augmentin steroid shot today - start [...] to further attempt to reduce peripheral edema. OK TO INCREASE FISH OIL TO TWICE [...] shunt placement by Dr Ruvalcaba-symptoms significantly improved . Parasthesia - ongoing for about a month - will send RX and refer pt for EMG - The pt is to use prn antiinflammatories to manage acute pain. The patient is to call the office if the pain is worsening or does not improve. ibuprofen 600mg three times a day x [...] increase in pain, worsening redness, warmth, discharge. vitamin D 2000 to 5000 units daily. [...] Vitamin D deficiency - start on supplement. increase levemir to 40 units in the [...] Call if symptoms do not show improvement. . Sinusitis - Pt has acute infection [...] spray in the nasal steroid allergy spray. RECOMMEND ZYRTEC OR LAURENT INCREASE LEVEMIR TO [...] in the nasal steroid allergy spray. . Hypertension - well controlled - continue [...] to assure normal liver response to medications. . Left side pain - negative UA - no rash present, but pain starts in her back flank area and wraps around to the side - will treat like shingles, pt is to notify clinic if symptoms do not improve, if they worsen, or with any changes, questions, or concerns. . NPH-increased dizziness/nausea/vomiting since adjustment of shunt-discussed [...] readings are starting to become less controlled. increase the levemir to 15 units in [...] fat diet, check repeat labs today. . Hypertension - well controlled - continue with current medications, continue with no added salt diet. Pt has been encouraged to exercise daily. The pt has been advised to call the office if there are any acute concerns about change in blood pressure readings at home. Hydrocephalus - pt doing well - shunt appears to be working well. . Hypertension - well controlled - continue [...] Use tylenol for break through pain symptoms. take a probiotic while on antibiotic - take culturelle 1 tab twice daily . Sinusitis - Pt has acute infection - pain in face, maxillary region, Pt informed to use decongestant, RX given to patient, sinus rinses also recommended. Call if symptoms do not show improvement. kenalog and rocephin shot today take a probiotic while on antibiotic - [...]
[2018-10-08] MEDS ORDERED: NITRO DRIP 25000 MCG/D5W 250 ML IV ONE (10:36)
--- OUTSIDE RECORDS SUMMARY | 2018-10-08 10:37 | XMS REPORT | CCD ---
Author Author [facility] Organization [facility] Address [address] [place] [address] Phone Care Team Providers Care Senior Clinical Data Analyst Name Role Phone PP Unavailable CCM Unavailable Summary Purpose Interface Exchange Insurance Providers Payer name Policy type / Coverage type Covered constitution party ID Effective Begin Date Effective End Date Blue Cross Blue 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[employer] 08/07/[address]: 739027545 Never smoker 08/07/[address]: 751252243 Never drinks alcohol 08/07/2014 Allergies, Adverse Reactions, Alerts Substance Reaction Codes Entered Date Inactivated Date Status CODEINE emesis RxNorm: 2670 08/07/2014 No Inactive Date Active Past Medical History Illness Codes Condition Status Onset Date Resolved Date Acute recurrent maxillary sinusitis ICD-9: 461.0 ICD-10: J01.01 Active 06/06/2015 Unknown Essential (primary) hypertension ICD-9: 401.9 ICD-10: I10 Active 08/06/2014 Unknown Type 2 diabetes mellitus with hyperglycemia ICD-9: 250.00 ICD-10: E11.65 Active 03/11/2018 Unknown Mixed hyperlipidemia ICD- 9: 272.2 ICD-10: [...] Problems Condition Codes Effective Dates Condition Status Acute recurrent maxillary sinusitis ICD-9: 461.0 ICD-10: J01.01 06/06/2015 Active Essential (primary) hypertension ICD-9: 401.9 ICD-10: I10 08/06/2014 Active Type 2 diabetes mellitus with hyperglycemia ICD-9: 250.00 ICD-10: E11.65 03/11/2018 Active Mixed hyperlipidemia ICD- 9: 272.2 ICD-10: [...] Fill Instructions levothyroxine 125 mcg tablet RxNorm: 268951 TAKE 1 TABLET BY MOUTH ONCE DAILY 08/26/2018 No Stop Date Active levothyroxine 125 mcg tablet RxNorm: 485618 TAKE 1 TABLET BY MOUTH ONCE DAILY 08/11/2018 No Stop Date Active hydrochlorothiazide 25 mg tablet RxNorm: 555540 TAKE 1 TABLET BY MOUTH ONCE DAILY 08/02/2018 No Stop Date Active Levemir FlexTouch U-100 Insulin 100 unit/mL (3 mL) subcutaneous pen RxNorm: 517586 35-40 Unit(s) SQ BID 07/09/2018 11/05/2018 Active INCREASE TO 40 UNITS Q AM AND 35 UNTIS Q HS Levemir FlexTouch U-100 Insulin 100 unit/mL (3 mL) subcutaneous pen RxNorm: 282095 35-40 Unit(s) SQ BID 07/09/2018 07/08/2018 Inactive INCREASE TO 40 UNITS Q AM AND 35 UNTIS Q HS doxycycline hyclate 100 mg tablet RxNorm: 6976368 1 Tablet(s) PO BID 07/09/2018 07/18/2018 Inactive venlafaxine ER 150 mg capsule,extended release 24 hr RxNorm: 541674 TAKE 1 CAPSULE BY MOUTH ONCE DAILY 06/08/2018 No Stop Date Active Levemir FlexTouch U-100 Insulin 100 unit/mL (3 mL) subcutaneous pen RxNorm: 573970 30 Unit(s) SQ BID 06/04/2018 07/08/2018 Inactive update RX -increase to 35 units BID if blood sugars over 200 Augmentin 875 mg-125 mg tablet RxNorm: 022755 1 Tablet(s) PO BID 06/04/2018 06/10/2018 Inactive hydrochlorothiazide 25 mg tablet RxNorm: 393693 TAKE 1 TABLET BY MOUTH ONCE DAILY 03/23/2018 08/01/2018 Inactive Levemir FlexTouch U-100 Insulin 100 unit/mL (3 mL) subcutaneous pen RxNorm: 042944 30 Unit(s) SQ QAM and 25 Units SQ QPM 03/18/2018 06/03/2018 Inactive Levemir FlexTouch U-100 Insulin 100 unit/mL (3 mL) subcutaneous pen RxNorm: 400255 Unit(s) 03/11/2018 03/17/2018 Inactive 30 q am and 25 units q PM pravastatin 40 mg tablet RxNorm: 895375 1 Tablet(s) PO daily take with coenzyme q 10 daily 03/03/2018 02/25/2019 Active Levemir FlexTouch U-100 Insulin 100 unit/mL (3 mL) subcutaneous pen RxNorm: 819380 Unit(s) INJECT 25 UNITS SUBCUTANEOUSLY TWICE DAILY 03/03/2018 03/10/2018 Inactive pravastatin 10 mg tablet RxNorm: 421754 1 Tablet(s) PO daily take with coenzyme q 10 daily 02/26/2018 03/02/2018 Inactive prednisone 20 mg tablet RxNorm: 322830 2 Tablet(s) PO daily 02/17/2018 02/21/2018 Inactive levothyroxine 125 mcg tablet RxNorm: 560039 TAKE 1 TABLET BY MOUTH ONCE DAILY 01/11/2018 08/10/2018 Inactive cyclobenzaprine 5 mg tablet RxNorm: 015311 1 Tablet(s) PO TID as needed 12/28/2017 01/11/2018 Inactive Zorvolex 35 mg capsule RxNorm: 7994374 1 Capsule(s) PO TID as needed 12/25/2017 05/23/2018 Inactive Levemir FlexTouch U-100 Insulin 100 unit/mL (3 mL) subcutaneous pen RxNorm: 900452 INJECT 2O UNITS SUBCUTANEOUSLY TWICE DAILY 12/21/2017 03/02/2018 Inactive cyclobenzaprine 5 mg tablet RxNorm: 939667 1 Tablet(s) PO TID as needed 12/21/2017 12/25/2017 Inactive doxycycline hyclate 100 mg capsule RxNorm: 0497521 1 Capsule(s) PO BID 12/21/2017 12/30/2017 Inactive venlafaxine ER 150 mg capsule,extended release 24 hr RxNorm: 357419 TAKE 1 CAPSULE BY MOUTH ONCE DAILY 12/10/2017 06/07/2018 Inactive Singulair 10 mg tablet RxNorm: 036864 1 Tablet(s) PO daily 12/03/2017 12/02/2017 Inactive Singulair 10 mg tablet RxNorm: 573045 1 Tablet(s) PO daily 12/03/2017 01/01/2018 Inactive Zithromax Z-Kulwant 250 mg tablet RxNorm: 164933 1 Tablet(s) PO UD 12/03/2017 03/10/2018 Inactive z pack as directed Kenalog 40 mg/mL suspension for injection RxNorm: 8040034 1 Milliliter(s) Inj 11/30/2017 11/30/2017 Inactive prednisone 20 mg tablet RxNorm: 117441 2 Tablet(s) PO daily 11/30/2017 12/04/2017 Inactive Augmentin 875 mg-125 mg tablet RxNorm: 079872 1 Tablet(s) PO BID 11/27/2017 11/26/2017 Inactive Augmentin 875 mg-125 mg tablet RxNorm: 730379 1 Tablet(s) PO BID 11/27/2017 12/03/2017 Inactive Zorvolex 35 mg capsule RxNorm: 7117784 1 Capsule(s) PO TID as needed 11/09/2017 12/24/2017 Inactive hydrochlorothiazide 25 mg tablet RxNorm: 820165 1 Tablet(s) PO daily 10/22/2017 02/18/2018 Inactive enalapril maleate 5 mg tablet RxNorm: 580037 1 Tablet(s) PO daily TAKE ONE TABLET BY MOUTH ONCE DAILY 08/21/2017 02/16/2018 Inactive Levemir FlexTouch U-100 Insulin 100 unit/mL (3 mL) subcutaneous pen RxNorm: 246280 20 Unit(s) SQ BID 07/30/2017 12/20/2017 Inactive levothyroxine 125 mcg tablet RxNorm: 006656 TAKE ONE TABLET BY MOUTH ONCE DAILY 06/29/2017 01/10/2018 Inactive venlafaxine ER 150 mg capsule,extended release 24 hr RxNorm: 159791 1 Capsule(s) PO daily TAKE ONE CAPSULE BY MOUTH ONCE DAILY 06/08/2017 12/04/2017 Inactive prednisone 20 mg tablet RxNorm: 524376 1 Tablet(s) PO daily 06/02/2017 06/06/2017 Inactive prednisone 20 mg tablet RxNorm: 817132 1 Tablet(s) PO daily 06/01/2017 06/05/2017 Inactive Kenalog 40 mg/mL suspension for injection RxNorm: 1193706 1 Milliliter(s) Inj 05/28/2017 05/28/2017 Inactive cefdinir 300 mg capsule RxNorm: 983025 1 Capsule(s) PO BID 05/28/2017 06/03/2017 Inactive ceftriaxone 500 mg solution for injection RxNorm: 5126233 1 Inj 05/28/2017 05/28/2017 Inactive prednisone 20 mg tablet RxNorm: 947626 1 Tablet(s) PO daily 05/28/2017 05/31/2017 Inactive Keflex 500 mg capsule RxNorm: 449079 1 Capsule(s) PO TID 05/26/2017 06/01/2017 Inactive Keflex 500 mg capsule RxNorm: 425835 1 Capsule(s) PO TID 05/26/2017 05/25/2017 Inactive hydrocodone 10 mg-chlorpheniramine 8 mg/5 mL oral susp extend.rel 12hr RxNorm: 3839177 5-10 Milliliter(s) PO TID as needed 04/16/2017 No Stop Date Active Tussionex Pennkinetic ER 10 mg-8 mg/5 mL suspension,extended release RxNorm: 6098175 5 Milliliter(s) PO BID 04/16/2017 04/27/2017 Inactive Zithromax Z-Kulwant 250 mg tablet RxNorm: 183825 1 Tablet(s) PO UD 03/25/2017 04/15/2017 Inactive z pack as directed enalapril maleate 5 mg tablet RxNorm: 406253 TAKE ONE TABLET BY MOUTH ONCE DAILY 02/26/2017 08/20/2017 Inactive Levemir FlexTouch 100 unit/mL (3 mL) subcutaneous insulin pen RxNorm: 820215 20 Unit(s) SQ BID 02/10/2017 07/11/2017 Inactive Zorvolex 35 mg capsule RxNorm: 2221274 1 Capsule(s) PO TID as needed 02/10/2017 11/08/2017 Inactive valacyclovir 1 gram tablet RxNorm: 348427 1 Tablet(s) PO TID 02/10/2017 02/16/2017 Inactive Levemir FlexTouch 100 unit/mL (3 mL) subcutaneous insulin pen RxNorm: 050741 20 Unit(s) SQ BID 02/04/2017 02/09/2017 Inactive cyclobenzaprine 5 mg tablet RxNorm: 018649 1 Tablet(s) PO qhs x 3 nights and TID as needed muscle spasms 02/02/2017 No Stop Date Active levothyroxine 125 mcg tablet RxNorm: 503567 TAKE ONE TABLET BY MOUTH ONCE DAILY 12/08/2016 06/05/2017 Inactive venlafaxine ER 150 mg capsule,extended release 24 hr RxNorm: 183381 TAKE ONE CAPSULE BY MOUTH ONCE DAILY 12/01/2016 05/29/2017 Inactive Zorvolex 35 mg capsule RxNorm: 4277140 1 Capsule(s) PO TID as needed do not take meloxicam at the same time 11/07/2016 No Stop Date Active enalapril maleate 5 mg tablet RxNorm: 050256 TAKE ONE TABLET BY MOUTH ONCE DAILY 10/31/2016 12/29/2016 Inactive meloxicam 15 mg tablet RxNorm: 314706 TAKE ONE TABLET BY MOUTH ONCE DAILY 10/30/2016 03/10/2018 Inactive meloxicam 15 mg tablet RxNorm: 666114 TAKE ONE TABLET BY MOUTH ONCE DAILY 10/24/2016 10/29/2016 Inactive enalapril maleate 5 mg tablet RxNorm: 178830 TAKE ONE TABLET BY MOUTH ONCE DAILY 10/24/2016 10/30/2016 Inactive venlafaxine ER 150 mg capsule,extended release 24 hr RxNorm: 145191 TAKE ONE CAPSULE BY MOUTH ONCE DAILY 06/16/2016 11/12/2016 Inactive meloxicam 15 mg tablet RxNorm: 569075 TAKE ONE TABLET BY MOUTH ONCE DAILY 06/09/2016 10/06/2016 Inactive enalapril maleate 5 mg tablet RxNorm: 125471 TAKE ONE TABLET BY MOUTH ONCE DAILY 06/02/2016 09/29/2016 Inactive Zithromax Z-Kulwant 250 mg tablet RxNorm: 852462 1 Tablet(s) PO UD 05/21/2016 06/15/2016 Inactive levothyroxine 125 mcg tablet RxNorm: 208052 Tablet(s) TAKE ONE TABLET BY MOUTH ONCE DAILY 04/15/2016 10/11/2016 Inactive Levaquin 500 mg tablet RxNorm: 750812 1 Tablet(s) PO daily 04/03/2016 04/09/2016 Inactive Levaquin 500 mg tablet RxNorm: 024485 1 Tablet(s) PO daily 04/03/2016 04/02/2016 Inactive prednisone 20 mg tablet RxNorm: 300078 2 Tablet(s) PO daily 03/28/2016 04/01/2016 Inactive Zithromax Z-Kulwant 250 mg tablet RxNorm: 655141 1 Tablet(s) PO UD 03/26/2016 03/30/2016 Inactive zpack Kenalog 40 mg/mL suspension for injection RxNorm: 1457914 Milliliter(s) Inj 03/26/2016 03/26/2016 Inactive Zofran ODT 4 mg disintegrating tablet RxNorm: 032793 DISSOLVE ONE TABLET IN MOUTH EVERY 6 HOURS NEEDED 02/22/2016 02/29/2016 Inactive venlafaxine ER 150 mg capsule,extended release 24 hr RxNorm: 512086 TAKE ONE CAPSULE BY MOUTH ONCE DAILY 02/18/2016 06/15/2016 Inactive meloxicam 15 mg tablet RxNorm: 452930 TAKE ONE TABLET BY MOUTH ONCE DAILY 02/04/2016 06/02/2016 Inactive aspirin 81 mg chewable tablet RxNorm: 311492 1 Tablet(s) PO daily 12/13/2015 12/06/2016 Inactive biotin 2,500 mcg tablet RxNorm: 217598 1 Tablet(s) PO daily 12/13/2015 09/07/2016 Inactive hydrochlorothiazide 25 mg tablet RxNorm: 591929 1 Tablet(s) PO daily 12/13/2015 04/10/2016 Inactive enalapril maleate 5 mg tablet RxNorm: 081146 TAKE ONE TABLET BY MOUTH ONCE DAILY 11/22/2015 05/19/2016 Inactive venlafaxine ER 150 mg capsule,extended release 24 hr RxNorm: 543803 TAKE ONE CAPSULE BY MOUTH ONCE DAILY 11/14/2015 02/11/2016 Inactive levothyroxine 125 mcg tablet RxNorm: 270306 Tablet(s) TAKE ONE TABLET BY MOUTH ONCE DAILY 11/06/2015 04/14/2016 Inactive levothyroxine 125 mcg tablet RxNorm: 576691 Tablet(s) TAKE ONE TABLET BY MOUTH ONCE DAILY 08/06/2015 11/03/2015 Inactive meclizine 25 mg tablet RxNorm: 647818 1/2-1 Tablet(s) PO Q6 as needed 07/16/2015 No Stop Date Active Flonase Allergy Relief 50 mcg/actuation nasal spray,suspension RxNorm: 1 [place] NASAL daily 06/13/2015 No Stop Date Active prednisone 20 mg tablet RxNorm: 647451 2 Tablet(s) PO daily 06/13/2015 06/17/2015 Inactive Augmentin 875 mg-125 mg tablet RxNorm: 568741 1 Tablet(s) PO BID 06/13/2015 06/19/2015 Inactive Zithromax Z-Kulwant 250 mg tablet RxNorm: 413054 1 Tablet(s) PO UD 06/07/2015 06/11/2015 Inactive zpack Kenalog 40 mg/mL suspension for injection RxNorm: 0469634 Milliliter(s) Inj 06/07/2015 06/07/2015 Inactive venlafaxine ER 150 mg capsule,extended release 24 hr RxNorm: 603248 TAKE ONE CAPSULE BY MOUTH ONCE DAILY 05/14/2015 11/09/2015 Inactive Augmentin 500 mg-125 mg tablet RxNorm: 703147 1 Tablet(s) PO TID 04/25/2015 05/04/2015 Inactive Augmentin 500 mg-125 mg tablet RxNorm: 772763 1 Tablet(s) PO TID 04/25/2015 04/24/2015 Inactive pravastatin 10 mg tablet RxNorm: 037981 1 Tablet(s) PO daily take with coenzyme q 10 daily 03/21/2015 03/20/2015 Inactive DC crestor pravastatin 10 mg tablet RxNorm: 467868 1 Tablet(s) PO daily take with coenzyme q 10 daily 03/21/2015 07/18/2015 Inactive DC crestor Zofran ODT 4 mg disintegrating tablet RxNorm: 698291 1 Tablet(s) PO Q6 PRN 03/13/2015 02/21/2016 Inactive levothyroxine 125 mcg tablet RxNorm: 201099 TAKE ONE TABLET BY MOUTH ONCE DAILY 02/13/2015 08/05/2015 Inactive meloxicam 15 mg tablet RxNorm: 459168 1 Tablet(s) PO daily 01/28/2015 01/22/2016 Inactive Zofran 4 mg tablet RxNorm: 975931 1 Tablet(s) PO Q6-8H as needed nausea 01/24/2015 No Stop Date Active Trulicity 1.5 mg/0.5 mL subcutaneous pen injector RxNorm: 5663911 0.75mg Milliliter(s) SQ QW 01/10/2015 03/10/2018 Inactive venlafaxine ER 150 mg capsule,extended release 24 hr RxNorm: 531444 1 Capsule(s) PO daily 01/10/2015 05/09/2015 Inactive enalapril maleate 5 mg tablet RxNorm: 938206 1 Tablet(s) PO daily 01/04/2015 07/02/2015 Inactive amoxicillin 500 mg tablet RxNorm: 936269 1 Tablet(s) PO BID 12/07/2014 12/06/2014 Inactive Probiotic & Acidophilus 300 million cell-250 mg capsule RxNorm: 1 Capsule(s) PO BID 12/07/2014 12/16/2014 Inactive amoxicillin 500 mg tablet RxNorm: 606813 1 Tablet(s) PO BID 12/07/2014 12/16/2014 Inactive Kenalog 40 mg/mL suspension for injection RxNorm: 7277944 1 Milliliter(s) Inj 12/07/2014 12/07/2014 Inactive meloxicam 15 mg tablet RxNorm: 234108 1 Tablet(s) PO daily 10/24/2014 10/23/2014 Inactive meloxicam 15 mg tablet RxNorm: 501674 1 Tablet(s) PO daily 10/24/2014 01/27/2015 Inactive azithromycin 500 mg tablet RxNorm: 549367 1 Tablet(s) PO daily 10/11/2014 10/15/2014 Inactive azithromycin 500 mg tablet RxNorm: 389883 1 Tablet(s) PO daily 10/11/2014 10/10/2014 Inactive levothyroxine 125 mcg tablet RxNorm: 482927 1 Tablet(s) PO daily 10/06/2014 02/02/2015 Inactive enalapril maleate 5 mg tablet RxNorm: 252651 1 Tablet(s) PO daily 08/29/2014 12/26/2014 Inactive enalapril maleate 5 mg tablet RxNorm: 159610 1 Tablet(s) PO daily 08/25/2014 08/28/2014 Inactive Medroxy oral RxNorm: 5674511 oral No Start Date Active Vitamin D3 5,000 unit tablet RxNorm: 355801 1 Tablet(s) PO daily No Start Date Active fluconazole 200 mg tablet RxNorm: 334572 Tablet(s) PO No Start Date Active estradiol 2 mg tablet RxNorm: 243972 1 Tablet(s) PO daily No Start Date Active fenofibrate nanocrystallized 145 mg tablet RxNorm: 020743 1 Tablet(s) PO daily No Start Date Active hydrocodone 5 mg-acetaminophen 325 mg tablet RxNorm: 421022 1-2 Tablet(s) PO Q4-6H as needed No Start Date Active enalapril maleate 5 mg tablet RxNorm: 693488 1 Tablet(s) PO daily No Start Date 08/24/2014 Inactive glimepiride 4 mg tablet RxNorm: 639457 1 Tablet(s) PO daily No Start Date 01/26/2017 Inactive meclizine 25 mg tablet RxNorm: 263363 1/2-1 Tablet(s) PO Q6 as needed No Start Date 07/15/2015 Inactive Trulicity 0.75 mg/0.5 mL subcutaneous pen injector RxNorm: 5681892 0.75mg Milliliter(s) SQ QW No Start Date 01/09/2015 Inactive metformin 1,000 mg tablet RxNorm: 533030 Tablet(s) PO BID No Start Date 01/26/2017 Inactive venlafaxine ER 150 mg capsule,extended release 24 hr RxNorm: 700131 1 Capsule(s) PO daily No Start Date 01/09/2015 Inactive meloxicam 15 mg tablet RxNorm: 986369 1 Tablet(s) PO daily No Start Date 10/23/2014 Inactive levothyroxine 125 mcg tablet RxNorm: 879887 1 Tablet(s) PO daily No Start Date 10/05/2014 Inactive Levemir FlexTouch 100 unit/mL (3 mL) subcutaneous insulin pen RxNorm: 045018 15 Unit(s) SQ daily No Start Date 02/03/2017 Inactive Zithromax Z-Kulwant 250 mg tablet RxNorm: 373015 1 Tablet(s) PO UD No Start Date 05/20/2016 Inactive Fish Oil 1,000 mg capsule RxNorm: 1 Capsule(s) PO BID No Start Date 11/04/2016 Inactive Zofran 4 mg tablet RxNorm: 602907 1 Tablet(s) PO Q6-8H as needed nausea No Start Date 01/23/2015 Inactive Crestor 10 mg tablet RxNorm: 538785 1 Tablet(s) PO daily No Start Date 03/20/2015 Inactive Medication Administered Medication Codes Instructions Start Date Status Kenalog 40 mg/mL suspension for injection RxNorm: 4122102 1Milliliter 11/30/2017 No longer Active Kenalog 40 mg/mL suspension for injection RxNorm: 5125109 1Milliliter 05/28/2017 No longer Active ceftriaxone 500 mg solution for injection RxNorm: 7733560 1 05/28/2017 No longer Active Kenalog 40 mg/mL suspension for injection RxNorm: 9910647 Milliliter 03/26/2016 No longer Active Kenalog 40 mg/mL suspension for injection RxNorm: 7085100 Milliliter 06/07/2015 No longer Active Kenalog 40 mg/mL suspension for injection RxNorm: 4889359 1Milliliter 12/07/2014 No longer Active Immunizations Vaccine Codes Date Status Influenza CVX: 141 11/26/2017 completed Assessments Condition Codes Effective Dates Essential (primary) hypertension ICD-10: I10 ICD-9: 401.9 07/09/2018 Type 2 diabetes mellitus with hyperglycemia ICD-10: E11.65 ICD-9: 250.00 07/09/2018 Acute recurrent maxillary sinusitis ICD-10: J01.01 ICD-9: 461.0 07/09/2018 Other allergic rhinitis ICD-10: J30.89 ICD-9: 477.8 06/04/2018 Mixed hyperlipidemia ICD-10: E78.2 ICD-9: 272.2 06/04/2018 Paresthesia of skin ICD-10: R20.2 ICD-9: 782.0 02/17/2018 Pain in right shoulder ICD-10: M25.511 ICD-9: 719.41 12/21/2017 Rash and other nonspecific skin eruption ICD-10: R21 ICD-9: 782.1 12/21/2017 Localized edema ICD-10: R60.0 ICD-9: 782.3 [...] without complications ICD-10: E11.9 ICD-9: 250.00 01/27/2017 Epigastric pain ICD-10: R10.13 ICD-9: 789.06 01/27/2017 Other acute pancreatitis without necrosis or infection ICD-10: K85.80 ICD-9: 577.0 01/27/2017 Actinic keratosis ICD-10: L57.0 ICD-9: 702.0 11/07/2016 Type 1 diabetes mellitus without complications ICD-10: E10.9 ICD-9: 250.00 11/07/2016 Bilateral primary osteoarthritis of hip ICD-10: M16.0 ICD-9: 715.95 11/07/2016 Other specified hypothyroidism ICD-10: E03.8 ICD-9: 244.8 11/07/2016 Pure hyperglyceridemia ICD-10: E78.1 ICD-9: 272.1 12/13/2015 (Idiopathic) normal pressure hydrocephalus ICD-10: G91.2 ICD-9: 331.5 08/15/2015 Other acute nonsuppurative otitis media, right ear ICD-10: H65.191 ICD-9: 381.00 06/13/2015 Acute upper respiratory infection, unspecified ICD-10: J06.9 ICD-9: 465.9 06/13/2015 Allergic rhinitis due to pollen ICD-10: J30.1 ICD-9: 477.0 06/07/2015 Nausea with vomiting, unspecified ICD-10: R11.2 ICD-9: 787.01 03/13/2015 Dizziness and giddiness ICD-10: R42 ICD-9: 780.4 03/13/2015 Acute sinusitis, unspecified ICD-10: J01.90 ICD-9: 461.9 12/07/2014 Allergic rhinitis, unspecified ICD-10: J30.9 ICD-9: 477.9 12/07/2014 NPH (normal pressure hydrocephalus) ICD-9: 331.5 09/07/2014 ESSENTIAL HYPERTENSION ICD-9: 401.9 09/07/2014 DIABETES TYPE II ICD-9: 250.00 09/07/2014 Hypertriglyceridemia ICD-9: 272.1 09/07/2014 VITAMIN D DEFICIENCY ICD-9: 268.9 08/07/2014 Abnormal gait ICD-9: 781.2 08/07/2014 Reason For Visit Reason For Visit Effective Dates Notes diabetes mellitus 07/09/2018 diabetes mellitus 06/04/2018 hyperlipidemia [...] Item Item Code Result Date CHEM 14 [id number] AST TNP:Lab Request 01/27/2017 CHEM 14 [id number] ALT TNP:Lab Request 01/27/2017 CHEM 14 [id number] BUN TNP:Lab Request 01/27/2017 CHEM 14 [id number] ALBUMIN TNP:Lab Request 01/27/2017 CHEM 14 [id number] CHLORIDE TNP:Lab Request 01/27/2017 CHEM 14 [id number] Bili Total TNP:Lab Request 01/27/2017 CHEM 14 [id number] ALK PHOS TNP:Lab Request 01/27/2017 CHEM 14 [id number] SODIUM TNP:Lab Request 01/27/2017 CHEM 14 [id number] CREATININE TNP:Lab Request 01/27/2017 CHEM 14 [id number] CALCIUM TNP:Lab Request 01/27/2017 CHEM 14 [id number] POTASSIUM TNP:Lab Request 01/27/2017 CHEM 14 [id number] TOTAL PROTEIN TNP:Lab Request 01/27/2017 CHEM 14 [id number] GLUCOSE TNP:Lab Request 01/27/2017 CHEM 14 [id number] Bicarbonate TNP:Lab Request 01/27/2017 CHEM 14 [id number] AGAP TNP:Lab Request 01/27/2017 AMYLASE [id number] Amylase Lvl TNP:Lab Request 01/27/2017 LIPID GRP CHOLESTEROL 273 mg/dL 2016 LIPID GRP Triglyceride 583 mg/dL 2016 LIPID GRP HDL CHOLESTEROL 48 mg/dL 2016 LIPID GRP Chol/HDL Ratio 5.69 ratio 2016 LIPID GRP 5842833 NON-HDL Chol 225 mg/dL 2016 LIPID GRP LDL Cholesterol N/A Trig >400 2016 A1C HPLC 0129828 Hgb A1c 99708-6 7.3 % 2016 TSH [id number] TSH 1.340 uIU/mL 2016 FREE T4 9176293 T4 Free 1.60 ng/dL 2016 MEAN GLUC 2517509 Calc Mean Gluc 163 mg/dL 2016 GFR CALC 9534091 GFR Non Afr Amr >60 mL/min 2016 GFR CALC 6395407 GFR Afr Amr >60 mL/min 2016 CBC 8696241 WBC 8.1 10e9/L 2016 CBC 5208847 RBC 4.41 10e12/L 2016 CBC 4785045 HEMOGLOBIN 13.2 g/dL 2016 CBC 1354109 HEMATOCRIT 39.6 % 2016 CBC 8167014 MCV 89.8 fL 2016 CBC 1945894 MCH 29.9 pg 2016 CBC 3117597 MCHC 33.3 g/dL 2016 CBC 6985703 PLATELET COUNT 298 10e9/L 2016 CBC 3743541 Mean Plt Volume 10.5 fL 2016 CBC 6656340 Neut Auto 61.3 % 2016 CBC 6337049 Lymph Auto 26.3 % 2016 CBC 5638376 [place] Auto 7.7 % 2016 CBC 6647944 RDW 13.6 % 2016 CBC 5077838 Eos Auto 4.2 % 2016 CBC 7348823 Baso Auto 0.5 % 2016 CBC 5231204 Neutrophil Abs 4.97 10e9/L 2016 CBC 1548315 Lymphocyte Abs 2.13 10e9/L 2016 CBC 7009025 Monocyte Abs 0.62 10e9/L 2016 CBC 3669635 Eosinophil Abs 0.34 10e9/L 2016 CBC 7831257 RDW-SD 44.1 fL 2016 CBC 7996153 Basophil Abs 0.04 10e9/L 2016 CHEM 14 8736885 AST 19 U/L 2016 CHEM 14 [id number] ALT 26 U/L 2016 CHEM 14 5493086 BUN 20 mg/dL 2016 CHEM 14 [id number] ALBUMIN 4.1 g/dL 2016 CHEM 14 8676140 CHLORIDE 99 mmol/L 2016 CHEM 14 5171869 Bili Total 0.3 mg/dL 2016 CHEM 14 4033681 ALK PHOS 55 U/L 2016 CHEM 14 2591096 SODIUM 135 mmol/L 2016 CHEM 14 2180957 CREATININE 0.87 mg/dL 2016 CHEM 14 1507774 CALCIUM 9.3 mg/dL 2016 CHEM 14 6603504 POTASSIUM 4.0 mmol/L 2016 CHEM 14 2561610 TOTAL PROTEIN 7.0 g/dL 2016 CHEM 14 [id number] GLUCOSE 149 mg/dL 2016 CHEM 14 6690204 Bicarbonate 26 mmol/L 2016 CHEM 14 0399771 AGAP 10 mmol/L 2016 Review of Systems System Result Effective Dates Constitutional recent illness 07/09/2018 Constitutional No anorexia [...] accomodation 03/11/2018 None Full Exam - General 1995 Ears/Nose/Throat external ear Overall: normal appearance 03/11/2018 None Full Exam - General 1995 Ears/Nose/Throat external ear Overall: no masses 03/11/2018 None Full Exam - General 1995 Ears/Nose/Throat external ear Overall: normal mastoids 03/11/2018 [...] 4: J0696 05/28/2017 THER/PROPH/DIAG INJ SC/IM CPT-4: 58164 05/19/2017 KETOROLAC TROMETHAMINE INJ CPT-4: J1885 05/19/2017 TRIAMCINOLONE ACET INJ NOS CPT-4: J3301 03/26/2016 TRIAMCINOLONE ACET INJ NOS CPT-4: J3301 06/07/2015 THER/PROPH/DIAG INJ SC/IM CPT-4: 68082 12/07/2014 TRIAMCINOLONE ACET INJ NOS CPT-4: J3301 12/07/2014 Vital Signs Date Vital 07/09/2018 Blood Pressure 1: 138/82 Code: 8480-6 BMI: 31.6 Code: 43359-3 Heart Rate 1: 82 bpm Height: 5'7" SpO2: 96% Weight: 202 lbs 06/04/2018 Blood Pressure 1: 144/76 Code: 8480-6 BMI: 32.0 Code: 12667-2 Heart Rate 1: 82 bpm Height: 5'7" SpO2: 96% Temperature: 36.5 (C) / 97.7 (F) Weight: 204 lbs 03/11/2018 Blood Pressure 1: 142/82 Code: 8480-6 BMI: 32.1 Code: 04787-5 Heart Rate 1: 87 bpm Height: 5'7" SpO2: 97% Weight: 205 lbs 02/17/2018 Blood Pressure 1: 132/76 Code: 8480-6 BMI: 33.5 Code: 49663-1 Heart Rate 1: 92 bpm Height: 5'7" SpO2: 98% Weight: 214 lbs 12/21/2017 Blood Pressure 1: 154/78 Code: 8480-6 BMI: 33.5 Code: 32346-6 Heart Rate 1: 93 bpm Height: 5'7" SpO2: 96% Weight: 214 lbs 11/30/2017 Blood Pressure 1: 148/88 Code: 8480-6 BMI: 33.5 Code: 20835-6 Heart Rate 1: 80 bpm Height: 5'7" SpO2: 97% Temperature: 36.9 (C) / 98.5 (F) Weight: 214 lbs 05/28/2017 Blood Pressure 1: 128/70 Code: 8480-6 BMI: 31.3 Code: 45445-9 Heart Rate 1: 103 bpm Height: 5'7" SpO2: 98% Temperature: 36.7 (C) / 98.1 (F) Weight: 200 lbs 05/19/2017 Blood Pressure 1: 150/72 Code: 8480-6 04/16/2017 Blood Pressure 1: 146/88 Code: 8480-6 BMI: 31.3 Code: 54843-7 Heart Rate 1: 96 bpm Height: 5'7" SpO2: 94% Temperature: 37.2 (C) / 99.0 (F) Weight: 200 lbs 02/10/2017 Blood Pressure 1: 132/72 Code: 8480-6 BMI: 31.3 Code: 65975-8 Heart Rate 1: 99 bpm Height: 5'7" SpO2: 97% Weight: 200 lbs 02/02/2017 Blood Pressure 1: 140/68 Code: 8480-6 BMI: 31.4 Code: 76089-5 Heart Rate 1: 82 bpm Height: 5'7" SpO2: 97% Weight: 200 lbs 8 oz 01/27/2017 Blood Pressure 1: 142/80 Code: 8480-6 BMI: 32.2 Code: 22266-0 Height: 5'7" Temperature: 37.2 (C) / 98.9 (F) Weight: 205 lbs 8 oz 11/07/2016 Blood Pressure 1: 148/82 Code: 8480-6 BMI: 32.7 Code: 94066-8 Heart Rate 1: 106 bpm Height: 5'7" SpO2: 97% Weight: 209 lbs 03/26/2016 Blood Pressure 1: 140/86 Code: 8480-6 Heart Rate 1: 90 bpm Height: SpO2: 97% Weight: 12/13/2015 Blood Pressure 1: 132/72 Code: 8480-6 BMI: 31.2 Code: 60430-0 Heart Rate 1: 84 bpm Height: 5'7" SpO2: 98% Weight: 199 lbs 08/15/2015 Blood Pressure 1: 138/88 Code: 8480-6 BMI: 32.1 Code: 90102-2 Heart Rate 1: 94 bpm Height: 5'7" SpO2: 97% Weight: 205 lbs 06/13/2015 Blood Pressure 1: 188/88 Code: 8480-6 Blood Pressure 1: 146/78 Code: 8480-6 BMI: 32.6 Code: 77090-0 Heart Rate 1: 97 bpm Height: 5'7" SpO2: 98% Weight: 208 lbs 06/07/2015 Blood Pressure 1: 128/82 Code: 8480-6 BMI: 32.4 Code: 64572-0 Heart Rate 1: 80 bpm Height: 5'7" SpO2: 99% Weight: 207 lbs 03/13/2015 Blood Pressure 1: 124/70 Code: 8480-6 BMI: 31.6 Code: 63127-4 Heart Rate 1: 103 bpm Height: 5'7" Respiratory Rate: 18 bpm SpO2: 97% Temperature: 36.6 (C) / 97.8 (F) Weight: 202 lbs 12/07/2014 Blood Pressure 1: 140/80 Code: 8480-6 BMI: 32.3 Code: 69702-5 Heart Rate 1: 97 bpm Height: 5'7" SpO2: 99% Weight: 206 lbs 09/07/2014 Blood Pressure 1: 132/78 Code: 8480-6 BMI: 31.2 Code: 83647-8 Heart Rate 1: 92 bpm Height: 5'7" Weight: 199 lbs 08/07/2014 Blood Pressure 1: 140/84 Code: 8480-6 Heart Rate 1: 96 bpm Height: 5'7" Weight: Functional Status No Functional Status data History of Present Illness Symptom Name Status Result Effective Date Notes Quality insulin dependent 07/09/2018 None Quality chronic [...] Location diffusely 09/07/2014 improvement with shunt placement- --- Dr Ruvalcaba in [place] did surgery headache Onset and Resolution ongoing [...] data Encounters Encounter Performer Location Codes Date ([id number]) 31997 EST. PATIENT, LEVEL IV Diagnosis: Type 2 diabetes mellitus with hyperglycemia[ICD10: E11.65] Diagnosis: Essential (primary) hypertension[ICD10: I10] Diagnosis: Acute recurrent maxillary sinusitis[ICD10: J01.01] [facility] CPT-4: 75550 07/09/2018 ([id number]) 16783 EST. PATIENT, LEVEL IV Diagnosis: Type 2 diabetes mellitus with hyperglycemia[ICD10: E11.65] Diagnosis: Mixed hyperlipidemia[ICD10: E78.2] Diagnosis: Other allergic rhinitis[ICD10: J30.89] [facility] CPT-4: 47465 06/04/2018 ([id number]) 52214 EST. PATIENT, LEVEL IV Diagnosis: Type 2 diabetes mellitus with hyperglycemia[ICD10: E11.65] Diagnosis: Mixed hyperlipidemia[ICD10: E78.2] Diagnosis: Essential (primary) hypertension[ICD10: I10] [facility] CPT-4: 03443 03/11/2018 95612 EST. PATIENT, LEVEL III Diagnosis: Paresthesia of skin[ICD10: R20.2] Aditi Dunham MD, [facility] CPT-4: 13626 02/17/2018 09663 EST. PATIENT, LEVEL IV Diagnosis: Pain in right shoulder[ICD10: M25.511] Diagnosis: Rash and other nonspecific skin eruption[ICD10: R21] Aditi Dunham MD, [facility] CPT-4: 37624 12/21/2017 [id number] EST. PATIENT, LEVEL IV Diagnosis: Other acute sinusitis[ICD10: J01.80] Diagnosis: Other allergic rhinitis[ICD10: J30.89] Diagnosis: Localized edema[ICD10: R60.0] Aditi Dunham MD, [facility] CPT-4: 99622 11/30/2017 ([id number]) 37148 EST. PATIENT, LEVEL III Diagnosis: Acute recurrent maxillary sinusitis[ICD10: J01.01] Diagnosis: Cough[ICD10: R05] Tavia Dunham MD, [facility] CPT-4: 28371 05/28/2017 ([id number]) 04213 EST. PATIENT, LEVEL III Diagnosis: Acute laryngopharyngitis[ICD10: J06.0] Diagnosis: Cough[ICD10: R05] Tavia Dunham MD, [facility] CPT-4: 88287 04/16/2017 11475 EST. PATIENT, LEVEL III Diagnosis: Left lower quadrant pain[ICD10: R10.32] Aditi Dunham MD, [facility] CPT-4: 26013 02/10/2017 ([id number]) 25180 EST. PATIENT, LEVEL III Diagnosis: Pain in thoracic spine[ICD10: M54.6] Diagnosis: Other muscle spasm[ICD10: M62.838] Tavia Dunham MD [facility] CPT- 4: 73072 02/02/2017 ([id number]) 16197 EST. PATIENT, LEVEL IV Diagnosis: Other acute pancreatitis without necrosis or infection[ICD10: K85.80] Diagnosis: Epigastric pain[ICD10: R10.13] Diagnosis: Type 2 diabetes mellitus without complications[ICD10: E11.9] Tavia Dunham MD, [facility] CPT-4: 52933 01/27/2017 86632 EST. PATIENT, LEVEL IV Diagnosis: Essential (primary) hypertension[ICD10: I10] Diagnosis: Type 1 diabetes mellitus without complications[ICD10: E10.9] Diagnosis: Other specified hypothyroidism[ICD10: E03.8] Diagnosis: Bilateral primary osteoarthritis of hip[ICD10: M16.0] Diagnosis: Actinic keratosis[ICD10: L57.0] Aditi Dunham MD, [facility] CPT-4: 03728 11/07/2016 08304 EST. PATIENT, LEVEL III Diagnosis: Other acute sinusitis[ICD10: J01.80] Diagnosis: Other allergic rhinitis[ICD10: J30.89] Diagnosis: Cough[ICD10: R05] Aditi Dunham MD, [facility] CPT-4: 03330 03/26/2016 ([id number]) 58551 EST. PATIENT, LEVEL IV Diagnosis: Essential (primary) hypertension[ICD10: I10] Diagnosis: Pure hyperglyceridemia[ICD10: E78.1] Tavia Dunham MD, [facility] CPT- 4: 76507 12/13/2015 ([id number]) 91916 EST. PATIENT, LEVEL III Diagnosis: Essential (primary) hypertension[ICD10: I10] Diagnosis: (Idiopathic) normal pressure hydrocephalus[ICD10: G91.2] Tavia Dunham MD, [facility] CPT-4: 53614 08/15/2015 60177 EST. PATIENT, LEVEL III Diagnosis: Other acute nonsuppurative otitis media, right ear[ICD10: H65.191] Diagnosis: Acute upper respiratory infection, unspecified[ICD10: J06.9] Aditi Dunham MD, [facility] CPT-4: 11597 06/13/2015 ([id number]) 36685 EST. PATIENT, LEVEL III Diagnosis: Acute recurrent maxillary sinusitis[ICD10: J01.01] Diagnosis: Allergic rhinitis due to pollen[ICD10: J30.1] Kaylan Dunham MD, [facility] CPT-4: 23299 06/07/2015 ([id number]) 72446 EST. PATIENT, LEVEL IV Diagnosis: (Idiopathic) normal pressure hydrocephalus[ICD10: G91.2] Diagnosis: Essential (primary) hypertension[ICD10: I10] Diagnosis: Dizziness and giddiness[ICD10: R42] Diagnosis: Nausea with vomiting, unspecified[ICD10: R11.2] Kaylan Dunham MD, [facility] CPT-4: 04956 03/13/2015 54514 EST. PATIENT, LEVEL III Diagnosis: Acute sinusitis, unspecified[ICD10: J01.90] Diagnosis: Allergic rhinitis, unspecified[ICD10: J30.9] Tavia Dunham MD, [facility] CPT-4: 38605 12/07/2014 ([id number]) 41680 EST. PATIENT, LEVEL IV Diagnosis: ESSENTIAL HYPERTENSION[ICD9: 401.9] Diagnosis: DIABETES TYPE II[ICD9: 250.00] Diagnosis: NPH (normal pressure hydrocephalus)[ICD9: 331.5] Diagnosis: Hypertriglyceridemia[ICD9: 272.1] Kaylan Dunham MD, [facility] CPT- 4: 24270 09/07/2014 ([id number]) OFFICE/OUTPATIENT VISIT NEW Diagnosis: DIABETES TYPE II[ICD9: 250.00] Diagnosis: ESSENTIAL HYPERTENSION[ICD9: 401.9] Diagnosis: NPH (normal pressure hydrocephalus)[ICD9: 331.5] Diagnosis: Abnormal gait[ICD9: 781.2] Diagnosis: VITAMIN D DEFICIENCY[ICD9: 268.9] Tavia Dunham MD, [facility] CPT- 4: 20833 08/07/2014 Plan of Care Planned Activity Notes Codes Status Date Visit Plan: Hypertension - well controlled - [...] improvement. 07/09/2018 [facility] [phone] [phone] ([facility] min[facility] Complex 07/09/2018 Patient Education: [...] spray. 06/04/2018 App[facility]ment: [facility] [phone] [phone] (30 min) Complex 06/04/2018 Patient Education: Patient Medication Summary Completed 06/04/2018 Patient Education: Cholesterol Management Completed 06/04/2018 Patient Education: Patient Medication Summary Completed 05/25/2018 Care Plan: A1C HPLC LOINC : 13470-7 Pending 05/25/2018 Referral: Ammon Joiner Patient informed. [...] at home. 03/11/2018 Appointment: Kaylan Melendez WPtel: [phone] (30 min) Complex 03/11/2018 Patient Education: Patient Medication Summary Completed 03/11/2018 Patient Education: Cholesterol Management Completed 03/11/2018 Patient Education: Hypertension Completed 03/11/2018 Care Plan: Referral Order SNOMED-CT : [id number] Pending 03/11/2018 Visit Plan: Parasthesia - ongoing for about a month - will send RX and refer pt for EMG - The pt is to use prn antiinflammatories to manage acute pain. The patient is to call the office if the pain is worsening or does not improve. 02/17/2018 App[facility]ment: [facility] [phone] [phone] (15 min) Moderate 02/17/2018 Patient Education: [...] warmth, discharge. 12/21/2017 Appointment: Aditi Hamilton WPtel: [address] [place] [phone] (15 min) Moderate 12/21/2017 Patient Education: Patient Medication Summary Completed 12/21/2017 Appointment: Tavia Dunham WPtel: [facility] (15 min) Moderate 12/02/2017 Visit Plan: Sinusitis [...] peripheral edema. 11/30/2017 Appointment: Aditi Hamilton WPtel: [facility] [address] (15 min) Moderate 11/30/2017 Patient Education: Patient Medication Summary Completed 11/30/2017 Care Plan: Comp Metabolic Pending 11/30/2017 Care Plan: Cbc With Differential Pending 11/30/2017 Care Plan: %Hba1C LOINC : 30768-8 Pending 11/30/2017 Care Plan: Lipid Pending 11/30/2017 Care Plan: Tsh Pending 11/30/2017 Care Plan: Free T4 Pending 11/30/2017 Appointment: [phone] [facility] [place] (15 min) Moderate 11/26/2017 Appointment: Kaylan Melendez WPtel: [phone] [phone] [place] (30 min) Complex 08/13/2017 Appointment: Tavia Dunham WPtel: [phone] [facility] [place] (15 min) Moderate 08/04/2017 Appointment: Tavia Dunham WPtel: [phone] [facility] [place] (15 min) Moderate 07/20/2017 Visit Plan: [...] kenalog and rocephin shot today 05/28/2017 Appointment: aTvia Dunham WPtel: [phone] [facility] [place] (30 min) Complex 05/28/2017 Patient Education: [...] pharmacy. 04/16/2017 Appointment: Tavia Dunham WPtel: [phone] [facility] [place] (15 min) Moderate 04/16/2017 Patient Education: [...] or concerns. 02/10/2017 Appointment: Aditi Hamilton WPtel: [phone] [phone] (15 min) Moderate 02/10/2017 Patient Education: Patient Medication Summary Completed 02/10/2017 Patient Education: Obesity Completed 02/10/2017 Visit Plan: Pain in Thoracic spine with muscle spasm - ibuprofen 600mg three times daily x 3 days, rx for cyclobenzaprine. 02/02/2017 Appointment: Tavia Dunham WPtel: [phone] [facility] (15 min) Moderate 02/02/2017 Patient Education: Patient [...] labs today. 01/27/2017 Appointment: Tavia Dunham WPtel: [phone] [facility] (15 min) Moderate 01/27/2017 Patient Education: Patient [...] pain symptoms. 11/07/2016 Appointment: Aditi Hamilton WPtel: [address] [place], [place] [phone] (30 min) [facility] 11/07/2016 Patient Education: Patient Medication Summary [...] spray. 03/26/2016 Appointment: [facility] [phone] [facility] ([facility] min) Complex 03/26/2016 Patient Education: [...] to medications. 12/13/2015 Appointment: T[facility] Dunham [facility]Ptel: [phone] [facility] (15 min) Moderate 12/13/2015 Patient Education: Patient [...] on supplement. 08/07/2014 Appointment: Tavia Dunham WPtel: [facility] [place] ([place] New Patient 08/07/2014 Patient Education: [...]
[2018-10-08] MEDS ORDERED: FAMOTIDINE 20MG/2ML IV (PEPCID) ONE (10:38)
--- OUTSIDE RECORDS SUMMARY | 2018-10-08 10:40 | XMS REPORT | CCD ---
Author Author [facility] Organization [facility] Address [address] [place] [address] Phone Care Team Providers Care Electronic Assembler Group Leader Name Role Phone PP Unavailable CCM Unavailable Summary Purpose Interface Exchange Insurance Providers Payer name Policy type / Coverage type Covered alliance party ID Effective Begin Date Effective End Date Blue Cross Blue [facility] Blue Cross/Blue [facility] [id number] Unknown Family history Mother Diagnosis Age At Onset Cancer Unknown Arthritis Unknown Depression Unknown Hyperlipidemia Unknown Diabetes mellitus Type 2 Unknown Social History Social History Element Codes Description Effective Dates Marital status Unknown [place] 08/07/2014 Number of children Unknown 0 08/07/2014 Employment 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[employer] 08/07/[address]: 800097353 Never smoker 08/07/[address]: 623051853 Never drinks alcohol 08/07/2014 Allergies, Adverse Reactions, [...] Fill Instructions levothyroxine 125 mcg tablet RxNorm: 399940 TAKE 1 TABLET BY MOUTH ONCE DAILY 08/11/2018 No Stop Date Active hydrochlorothiazide 25 mg tablet RxNorm: 523167 TAKE 1 TABLET BY MOUTH ONCE DAILY 08/02/2018 No Stop Date Active Levemir FlexTouch U-100 Insulin 100 unit/mL (3 mL) subcutaneous pen RxNorm: 202185 35-40 Unit(s) SQ BID 07/09/2018 11/05/2018 Active INCREASE TO 40 UNITS Q AM AND 35 UNTIS Q HS Levemir FlexTouch U-100 Insulin 100 unit/mL (3 mL) subcutaneous pen RxNorm: 564175 35-40 Unit(s) SQ BID 07/09/2018 07/08/2018 Inactive INCREASE TO 40 UNITS Q AM AND 35 UNTIS Q HS doxycycline hyclate 100 mg tablet RxNorm: 3498415 1 Tablet(s) PO BID 07/09/2018 07/18/2018 Inactive venlafaxine ER 150 mg capsule,extended release 24 hr RxNorm: 240081 TAKE 1 CAPSULE BY MOUTH ONCE DAILY 06/08/2018 No Stop Date Active Levemir FlexTouch U-100 Insulin 100 unit/mL (3 mL) subcutaneous pen RxNorm: 851682 30 Unit(s) SQ BID 06/04/2018 07/08/2018 Inactive update RX -increase to 35 units BID if blood sugars over 200 Augmentin 875 mg-125 mg tablet RxNorm: 528230 1 Tablet(s) PO BID 06/04/2018 06/10/2018 Inactive hydrochlorothiazide 25 mg tablet RxNorm: 975364 TAKE 1 TABLET BY MOUTH ONCE DAILY 03/23/2018 08/01/2018 Inactive Levemir FlexTouch U-100 Insulin 100 unit/mL (3 mL) subcutaneous pen RxNorm: 558177 30 Unit(s) SQ QAM and 25 Units SQ QPM 03/18/2018 06/03/2018 Inactive Levemir FlexTouch U-100 Insulin 100 unit/mL (3 mL) subcutaneous pen RxNorm: 465142 Unit(s) 03/11/2018 03/17/2018 Inactive 30 q am and 25 units q PM pravastatin 40 mg tablet RxNorm: 055709 1 Tablet(s) PO daily take with coenzyme q 10 daily 03/03/2018 02/25/2019 Active Levemir FlexTouch U-100 Insulin 100 unit/mL (3 mL) subcutaneous pen RxNorm: 002028 Unit(s) INJECT 25 UNITS SUBCUTANEOUSLY TWICE DAILY 03/03/2018 03/10/2018 Inactive pravastatin 10 mg tablet RxNorm: 082073 1 Tablet(s) PO daily take with coenzyme q 10 daily 02/26/2018 03/02/2018 Inactive prednisone 20 mg tablet RxNorm: 766938 2 Tablet(s) PO daily 02/17/2018 02/21/2018 Inactive levothyroxine 125 mcg tablet RxNorm: 903006 TAKE 1 TABLET BY MOUTH ONCE DAILY 01/11/2018 08/10/2018 Inactive cyclobenzaprine 5 mg tablet RxNorm: 772322 1 Tablet(s) PO TID as needed 12/28/2017 01/11/2018 Inactive Zorvolex 35 mg capsule RxNorm: 9489236 1 Capsule(s) PO TID as needed 12/25/2017 05/23/2018 Inactive Levemir FlexTouch U-100 Insulin 100 unit/mL (3 mL) subcutaneous pen RxNorm: 555746 INJECT 2O UNITS SUBCUTANEOUSLY TWICE DAILY 12/21/2017 03/02/2018 Inactive cyclobenzaprine 5 mg tablet RxNorm: 866054 1 Tablet(s) PO TID as needed 12/21/2017 12/25/2017 Inactive doxycycline hyclate 100 mg capsule RxNorm: 4231716 1 Capsule(s) PO BID 12/21/2017 12/30/2017 Inactive venlafaxine ER 150 mg capsule,extended release 24 hr RxNorm: 362274 TAKE 1 CAPSULE BY MOUTH ONCE DAILY 12/10/2017 06/07/2018 Inactive Singulair 10 mg tablet RxNorm: 352182 1 Tablet(s) PO daily 12/03/2017 12/02/2017 Inactive Singulair 10 mg tablet RxNorm: 892131 1 Tablet(s) PO daily 12/03/2017 01/01/2018 Inactive Zithromax Z-Kulwant 250 mg tablet RxNorm: 845915 1 Tablet(s) PO UD 12/03/2017 03/10/2018 Inactive z pack as directed Kenalog 40 mg/mL suspension for injection RxNorm: 5386602 1 Milliliter(s) Inj 11/30/2017 11/30/2017 Inactive prednisone 20 mg tablet RxNorm: 251327 2 Tablet(s) PO daily 11/30/2017 12/04/2017 Inactive Augmentin 875 mg-125 mg tablet RxNorm: 752185 1 Tablet(s) PO BID 11/27/2017 11/26/2017 Inactive Augmentin 875 mg-125 mg tablet RxNorm: 253045 1 Tablet(s) PO BID 11/27/2017 12/03/2017 Inactive Zorvolex 35 mg capsule RxNorm: 8177039 1 Capsule(s) PO TID as needed 11/09/2017 12/24/2017 Inactive hydrochlorothiazide 25 mg tablet RxNorm: 787072 1 Tablet(s) PO daily 10/22/2017 02/18/2018 Inactive enalapril maleate 5 mg tablet RxNorm: 287116 1 Tablet(s) PO daily TAKE ONE TABLET BY MOUTH ONCE DAILY 08/21/2017 02/16/2018 Inactive Levemir FlexTouch U-100 Insulin 100 unit/mL (3 mL) subcutaneous pen RxNorm: 639487 20 Unit(s) SQ BID 07/30/2017 12/20/2017 Inactive levothyroxine 125 mcg tablet RxNorm: 417971 TAKE ONE TABLET BY MOUTH ONCE DAILY 06/29/2017 01/10/2018 Inactive venlafaxine ER 150 mg capsule,extended release 24 hr RxNorm: 916852 1 Capsule(s) PO daily TAKE ONE CAPSULE BY MOUTH ONCE DAILY 06/08/2017 12/04/2017 Inactive prednisone 20 mg tablet RxNorm: 443076 1 Tablet(s) PO daily 06/02/2017 06/06/2017 Inactive prednisone 20 mg tablet RxNorm: 765910 1 Tablet(s) PO daily 06/01/2017 06/05/2017 Inactive Kenalog 40 mg/mL suspension for injection RxNorm: 8564676 1 Milliliter(s) Inj 05/28/2017 05/28/2017 Inactive cefdinir 300 mg capsule RxNorm: 905290 1 Capsule(s) PO BID 05/28/2017 06/03/2017 Inactive ceftriaxone 500 mg solution for injection RxNorm: 7586512 1 Inj 05/28/2017 05/28/2017 Inactive prednisone 20 mg tablet RxNorm: 884782 1 Tablet(s) PO daily 05/28/2017 05/31/2017 Inactive Keflex 500 mg capsule RxNorm: 054624 1 Capsule(s) PO TID 05/26/2017 06/01/2017 Inactive Keflex 500 mg capsule RxNorm: 030836 1 Capsule(s) PO TID 05/26/2017 05/25/2017 Inactive hydrocodone 10 mg-chlorpheniramine 8 mg/5 mL oral susp extend.rel 12hr RxNorm: 0420860 5-10 Milliliter(s) PO TID as needed 04/16/2017 No Stop Date Active Tussionex Pennkinetic ER 10 mg-8 mg/5 mL suspension,extended release RxNorm: 5421971 5 Milliliter(s) PO BID 04/16/2017 04/27/2017 Inactive Zithromax Z-Kulwant 250 mg tablet RxNorm: 697857 1 Tablet(s) PO UD 03/25/2017 04/15/2017 Inactive z pack as directed enalapril maleate 5 mg tablet RxNorm: 733356 TAKE ONE TABLET BY MOUTH ONCE DAILY 02/26/2017 08/20/2017 Inactive Levemir FlexTouch 100 unit/mL (3 mL) subcutaneous insulin pen RxNorm: 978950 20 Unit(s) SQ BID 02/10/2017 07/11/2017 Inactive Zorvolex 35 mg capsule RxNorm: 0168197 1 Capsule(s) PO TID as needed 02/10/2017 11/08/2017 Inactive valacyclovir 1 gram tablet RxNorm: 507654 1 Tablet(s) PO TID 02/10/2017 02/16/2017 Inactive Levemir FlexTouch 100 unit/mL (3 mL) subcutaneous insulin pen RxNorm: 903811 20 Unit(s) SQ BID 02/04/2017 02/09/2017 Inactive cyclobenzaprine 5 mg tablet RxNorm: 690112 1 Tablet(s) PO qhs x 3 nights and TID as needed muscle spasms 02/02/2017 No Stop Date Active levothyroxine 125 mcg tablet RxNorm: 861743 TAKE ONE TABLET BY MOUTH ONCE DAILY 12/08/2016 06/05/2017 Inactive venlafaxine ER 150 mg capsule,extended release 24 hr RxNorm: 772523 TAKE ONE CAPSULE BY MOUTH ONCE DAILY 12/01/2016 05/29/2017 Inactive Zorvolex 35 mg capsule RxNorm: 3794193 1 Capsule(s) PO TID as needed do not take meloxicam at the same time 11/07/2016 No Stop Date Active enalapril maleate 5 mg tablet RxNorm: 599632 TAKE ONE TABLET BY MOUTH ONCE DAILY 10/31/2016 12/29/2016 Inactive meloxicam 15 mg tablet RxNorm: 600308 TAKE ONE TABLET BY MOUTH ONCE DAILY 10/30/2016 03/10/2018 Inactive meloxicam 15 mg tablet RxNorm: 124409 TAKE ONE TABLET BY MOUTH ONCE DAILY 10/24/2016 10/29/2016 Inactive enalapril maleate 5 mg tablet RxNorm: 683678 TAKE ONE TABLET BY MOUTH ONCE DAILY 10/24/2016 10/30/2016 Inactive venlafaxine ER 150 mg capsule,extended release 24 hr RxNorm: 311625 TAKE ONE CAPSULE BY MOUTH ONCE DAILY 06/16/2016 11/12/2016 Inactive meloxicam 15 mg tablet RxNorm: 140097 TAKE ONE TABLET BY MOUTH ONCE DAILY 06/09/2016 10/06/2016 Inactive enalapril maleate 5 mg tablet RxNorm: 276041 TAKE ONE TABLET BY MOUTH ONCE DAILY 06/02/2016 09/29/2016 Inactive Zithromax Z-Kulwant 250 mg tablet RxNorm: 884879 1 Tablet(s) PO UD 05/21/2016 06/15/2016 Inactive levothyroxine 125 mcg tablet RxNorm: 472886 Tablet(s) TAKE ONE TABLET BY MOUTH ONCE DAILY 04/15/2016 10/11/2016 Inactive Levaquin 500 mg tablet RxNorm: 214903 1 Tablet(s) PO daily 04/03/2016 04/09/2016 Inactive Levaquin 500 mg tablet RxNorm: 271231 1 Tablet(s) PO daily 04/03/2016 04/02/2016 Inactive prednisone 20 mg tablet RxNorm: 084130 2 Tablet(s) PO daily 03/28/2016 04/01/2016 Inactive Zithromax Z-Kulwant 250 mg tablet RxNorm: 694922 1 Tablet(s) PO UD 03/26/2016 03/30/2016 Inactive zpack Kenalog 40 mg/mL suspension for injection RxNorm: 2036174 Milliliter(s) Inj 03/26/2016 03/26/2016 Inactive Zofran ODT 4 mg disintegrating tablet RxNorm: 931773 DISSOLVE ONE TABLET IN MOUTH EVERY 6 HOURS NEEDED 02/22/2016 02/29/2016 Inactive venlafaxine ER 150 mg capsule,extended release 24 hr RxNorm: 379220 TAKE ONE CAPSULE BY MOUTH ONCE DAILY 02/18/2016 06/15/2016 Inactive meloxicam 15 mg tablet RxNorm: 151259 TAKE ONE TABLET BY MOUTH ONCE DAILY 02/04/2016 06/02/2016 Inactive aspirin 81 mg chewable tablet RxNorm: 699925 1 Tablet(s) PO daily 12/13/2015 12/06/2016 Inactive biotin 2,500 mcg tablet RxNorm: 963599 1 Tablet(s) PO daily 12/13/2015 09/07/2016 Inactive hydrochlorothiazide 25 mg tablet RxNorm: 836846 1 Tablet(s) PO daily 12/13/2015 04/10/2016 Inactive enalapril maleate 5 mg tablet RxNorm: 305784 TAKE ONE TABLET BY MOUTH ONCE DAILY 11/22/2015 05/19/2016 Inactive venlafaxine ER 150 mg capsule,extended release 24 hr RxNorm: 490782 TAKE ONE CAPSULE BY MOUTH ONCE DAILY 11/14/2015 02/11/2016 Inactive levothyroxine 125 mcg tablet RxNorm: 116265 Tablet(s) TAKE ONE TABLET BY MOUTH ONCE DAILY 11/06/2015 04/14/2016 Inactive levothyroxine 125 mcg tablet RxNorm: 033197 Tablet(s) TAKE ONE TABLET BY MOUTH ONCE DAILY 08/06/2015 11/03/2015 Inactive meclizine 25 mg tablet RxNorm: 864666 1/2-1 Tablet(s) PO Q6 as needed 07/16/2015 No Stop Date Active Flonase Allergy Relief 50 mcg/actuation nasal spray,suspension RxNorm: 1 [place] NASAL daily 06/13/2015 No Stop Date Active prednisone 20 mg tablet RxNorm: 805431 2 Tablet(s) PO daily 06/13/2015 06/17/2015 Inactive Augmentin 875 mg-125 mg tablet RxNorm: 506484 1 Tablet(s) PO BID 06/13/2015 06/19/2015 Inactive Zithromax Z-Kulwant 250 mg tablet RxNorm: 446608 1 Tablet(s) PO UD 06/07/2015 06/11/2015 Inactive zpack Kenalog 40 mg/mL suspension for injection RxNorm: 8206669 Milliliter(s) Inj 06/07/2015 06/07/2015 Inactive venlafaxine ER 150 mg capsule,extended release 24 hr RxNorm: 349361 TAKE ONE CAPSULE BY MOUTH ONCE DAILY 05/14/2015 11/09/2015 Inactive Augmentin 500 mg-125 mg tablet RxNorm: 868738 1 Tablet(s) PO TID 04/25/2015 05/04/2015 Inactive Augmentin 500 mg-125 mg tablet RxNorm: 691743 1 Tablet(s) PO TID 04/25/2015 04/24/2015 Inactive pravastatin 10 mg tablet RxNorm: 857504 1 Tablet(s) PO daily take with coenzyme q 10 daily 03/21/2015 03/20/2015 Inactive DC crestor pravastatin 10 mg tablet RxNorm: 363622 1 Tablet(s) PO daily take with coenzyme q 10 daily 03/21/2015 07/18/2015 Inactive DC crestor Zofran ODT 4 mg disintegrating tablet RxNorm: 163678 1 Tablet(s) PO Q6 PRN 03/13/2015 02/21/2016 Inactive levothyroxine 125 mcg tablet RxNorm: 975303 TAKE ONE TABLET BY MOUTH ONCE DAILY 02/13/2015 08/05/2015 Inactive meloxicam 15 mg tablet RxNorm: 086262 1 Tablet(s) PO daily 01/28/2015 01/22/2016 Inactive Zofran 4 mg tablet RxNorm: 985331 1 Tablet(s) PO Q6-8H as needed nausea 01/24/2015 No Stop Date Active Trulicity 1.5 mg/0.5 mL subcutaneous pen injector RxNorm: 7984532 0.75mg Milliliter(s) SQ QW 01/10/2015 03/10/2018 Inactive venlafaxine ER 150 mg capsule,extended release 24 hr RxNorm: 762771 1 Capsule(s) PO daily 01/10/2015 05/09/2015 Inactive enalapril maleate 5 mg tablet RxNorm: 064124 1 Tablet(s) PO daily 01/04/2015 07/02/2015 Inactive amoxicillin 500 mg tablet RxNorm: 865539 1 Tablet(s) PO BID 12/07/2014 12/06/2014 Inactive Probiotic & Acidophilus 300 million cell-250 mg capsule RxNorm: 1 Capsule(s) PO BID 12/07/2014 12/16/2014 Inactive amoxicillin 500 mg tablet RxNorm: 839960 1 Tablet(s) PO BID 12/07/2014 12/16/2014 Inactive Kenalog 40 mg/mL suspension for injection RxNorm: 7910163 1 Milliliter(s) Inj 12/07/2014 12/07/2014 Inactive meloxicam 15 mg tablet RxNorm: 629133 1 Tablet(s) PO daily 10/24/2014 10/23/2014 Inactive meloxicam 15 mg tablet RxNorm: 825740 1 Tablet(s) PO daily 10/24/2014 01/27/2015 Inactive azithromycin 500 mg tablet RxNorm: 717911 1 Tablet(s) PO daily 10/11/2014 10/15/2014 Inactive azithromycin 500 mg tablet RxNorm: 352325 1 Tablet(s) PO daily 10/11/2014 10/10/2014 Inactive levothyroxine 125 mcg tablet RxNorm: 286878 1 Tablet(s) PO daily 10/06/2014 02/02/2015 Inactive enalapril maleate 5 mg tablet RxNorm: 120579 1 Tablet(s) PO daily 08/29/2014 12/26/2014 Inactive enalapril maleate 5 mg tablet RxNorm: 354151 1 Tablet(s) PO daily 08/25/2014 08/28/2014 Inactive Medroxy oral RxNorm: 0456301 oral No Start Date Active Vitamin D3 5,000 unit tablet RxNorm: 254381 1 Tablet(s) PO daily No Start Date Active fluconazole 200 mg tablet RxNorm: 759776 Tablet(s) PO No Start Date Active estradiol 2 mg tablet RxNorm: 273163 1 Tablet(s) PO daily No Start Date Active fenofibrate nanocrystallized 145 mg tablet RxNorm: 477699 1 Tablet(s) PO daily No Start Date Active hydrocodone 5 mg-acetaminophen 325 mg tablet RxNorm: 854822 1-2 Tablet(s) PO Q4-6H as needed No Start Date Active enalapril maleate 5 mg tablet RxNorm: 884466 1 Tablet(s) PO daily No Start Date 08/24/2014 Inactive glimepiride 4 mg tablet RxNorm: 851661 1 Tablet(s) PO daily No Start Date 01/26/2017 Inactive meclizine 25 mg tablet RxNorm: 102483 1/2-1 Tablet(s) PO Q6 as needed No Start Date 07/15/2015 Inactive Trulicity 0.75 mg/0.5 mL subcutaneous pen injector RxNorm: 7088487 0.75mg Milliliter(s) SQ QW No Start Date 01/09/2015 Inactive metformin 1,000 mg tablet RxNorm: 526444 Tablet(s) PO BID No Start Date 01/26/2017 Inactive venlafaxine ER 150 mg capsule,extended release 24 hr RxNorm: 247027 1 Capsule(s) PO daily No Start Date 01/09/2015 Inactive meloxicam 15 mg tablet RxNorm: 035241 1 Tablet(s) PO daily No Start Date 10/23/2014 Inactive levothyroxine 125 mcg tablet RxNorm: 206213 1 Tablet(s) PO daily No Start Date 10/05/2014 Inactive Levemir FlexTouch 100 unit/mL (3 mL) subcutaneous insulin pen RxNorm: 130644 15 Unit(s) SQ daily No Start Date 02/03/2017 Inactive Zithromax Z-Kulwant 250 mg tablet RxNorm: 754896 1 Tablet(s) PO UD No Start Date 05/20/2016 Inactive Fish Oil 1,000 mg capsule RxNorm: 1 Capsule(s) PO BID No Start Date 11/04/2016 Inactive Zofran 4 mg tablet RxNorm: 986397 1 Tablet(s) PO Q6-8H as needed nausea No Start Date 01/23/2015 Inactive Crestor 10 mg tablet RxNorm: 940676 1 Tablet(s) PO daily No Start Date 03/20/2015 Inactive Medication Administered Medication Codes Instructions Start Date Status Kenalog 40 mg/mL suspension for injection RxNorm: 1647910 1Milliliter 11/30/2017 No longer Active Kenalog 40 mg/mL suspension for injection RxNorm: 3559113 1Milliliter 05/28/2017 No longer Active ceftriaxone 500 mg solution for injection RxNorm: 8922774 1 05/28/2017 No longer Active Kenalog 40 mg/mL suspension for injection RxNorm: 1867827 Milliliter 03/26/2016 No longer Active Kenalog 40 mg/mL suspension for injection RxNorm: 9001291 Milliliter 06/07/2015 No longer Active Kenalog 40 mg/mL suspension for injection RxNorm: 1426458 1Milliliter 12/07/2014 No longer Active Immunizations Vaccine Codes Date Status Influenza CVX: 141 11/26/2017 completed Assessments Condition Codes Effective Dates Essential (primary) hypertension ICD-10: I10 ICD-9: 401.9 07/09/2018 Acute recurrent maxillary sinusitis ICD-10: J01.01 ICD-9: 461.0 07/09/2018 Type 2 diabetes mellitus with hyperglycemia ICD-10: E11.65 ICD-9: 250.00 07/09/2018 Other allergic rhinitis ICD-10: J30.89 ICD-9: [...] Item Item Code Result Date CHEM 14 [id number] AST TNP:Lab Request 01/27/2017 CHEM 14 [id number] ALT TNP:Lab Request 01/27/2017 CHEM 14 [id number] BUN TNP:Lab Request 01/27/2017 CHEM 14 [id number] ALBUMIN TNP:Lab Request 01/27/2017 CHEM 14 [id number] CHLORIDE TNP:Lab Request 01/27/2017 CHEM 14 [id number] Bili Total TNP:Lab Request 01/27/2017 CHEM 14 [id number] ALK PHOS TNP:Lab Request 01/27/2017 CHEM 14 [id number] SODIUM TNP:Lab Request 01/27/2017 CHEM 14 [id number] CREATININE TNP:Lab Request 01/27/2017 CHEM 14 [id number] CALCIUM TNP:Lab Request 01/27/2017 CHEM 14 [id number] POTASSIUM TNP:Lab Request 01/27/2017 CHEM 14 [id number] TOTAL PROTEIN TNP:Lab Request 01/27/2017 CHEM 14 [id number] GLUCOSE TNP:Lab Request 01/27/2017 CHEM 14 [id number] Bicarbonate TNP:Lab Request 01/27/2017 CHEM 14 [id number] AGAP TNP:Lab Request 01/27/2017 AMYLASE [id number] Amylase Lvl TNP:Lab Request 01/27/2017 LIPID GRP CHOLESTEROL 273 mg/dL 2016 LIPID GRP Triglyceride 583 mg/dL 2016 LIPID GRP HDL CHOLESTEROL 48 mg/dL 2016 LIPID GRP Chol/HDL Ratio 5.69 ratio 2016 LIPID GRP NON-HDL Chol 225 mg/dL 2016 LIPID GRP LDL Cholesterol N/A Trig >400 2016 A1C HPLC 0621180 Hgb A1c 28653-5 7.3 % 2016 TSH [id number] TSH 1.340 uIU/mL 2016 FREE T4 1447661 T4 Free 1.60 ng/dL 2016 MEAN GLUC 5460477 Calc Mean Gluc 163 mg/dL 2016 GFR CALC 0922831 GFR Non Afr Amr >60 mL/min 2016 GFR CALC 3719932 GFR Afr Amr >60 mL/min 2016 CBC 4517623 WBC 8.1 10e9/L 2016 CBC 6178014 RBC 4.41 10e12/L 2016 CBC 8063391 HEMOGLOBIN 13.2 g/dL 2016 CBC 2561418 HEMATOCRIT 39.6 % 2016 CBC 0835085 MCV 89.8 fL 2016 CBC 6330211 MCH 29.9 pg 2016 CBC 6755256 MCHC 33.3 g/dL 2016 CBC 6607966 PLATELET COUNT 298 10e9/L 2016 CBC 6492496 Mean Plt Volume 10.5 fL 2016 CBC 9569286 Neut Auto 61.3 % 2016 CBC 7631602 Lymph Auto 26.3 % 2016 CBC 1997020 [place] Auto 7.7 % 2016 CBC 6538390 RDW 13.6 % 2016 CBC 2595274 Eos Auto 4.2 % 2016 CBC 7003585 Baso Auto 0.5 % 2016 CBC 2058622 Neutrophil Abs 4.97 10e9/L 2016 CBC 9349207 Lymphocyte Abs 2.13 10e9/L 2016 CBC 5952190 Monocyte Abs 0.62 10e9/L 2016 CBC 2018216 Eosinophil Abs 0.34 10e9/L 2016 CBC 1759665 RDW-SD 44.1 fL 2016 CBC 0313648 Basophil Abs 0.04 10e9/L 2016 CHEM 14 1706029 AST 19 U/L 2016 CHEM 14 0292321 ALT 26 U/L 2016 CHEM 14 [id number] BUN 20 mg/dL 2016 CHEM 14 8805668 ALBUMIN 4.1 g/dL 2016 CHEM 14 8464210 CHLORIDE 99 mmol/L 2016 CHEM 14 1329536 Bili Total 0.3 mg/dL 2016 CHEM 14 4840309 ALK PHOS 55 U/L 2016 CHEM 14 6663602 SODIUM 135 mmol/L 2016 CHEM 14 5899906 CREATININE 0.87 mg/dL 2016 CHEM 14 7009715 CALCIUM 9.3 mg/dL 2016 CHEM 14 5579886 POTASSIUM 4.0 mmol/L 2016 CHEM 14 6878750 TOTAL PROTEIN 7.0 g/dL 2016 CHEM 14 3157149 GLUCOSE 149 mg/dL 2016 CHEM 14 6867226 Bicarbonate 26 mmol/L 2016 CHEM 14 7341163 AGAP 10 mmol/L 2016 Review of Systems [...] bulging 07/09/2018 None Full Exam - General 1995 Ears/Nose/Throat lips/teeth/gingiva Overall: benign lips 07/09/2018 None [...] clear 08/07/2014 None Full Exam - General 1995 Ears/Nose/Throat [...] 4: J0696 05/28/2017 THER/PROPH/DIAG INJ SC/IM CPT-4: 68262 05/19/2017 KETOROLAC TROMETHAMINE INJ CPT-4: J1885 05/19/2017 TRIAMCINOLONE ACET INJ NOS CPT-4: J3301 03/26/2016 TRIAMCINOLONE ACET INJ NOS CPT-4: J3301 06/07/2015 THER/PROPH/DIAG INJ SC/IM CPT-4: 06507 12/07/2014 TRIAMCINOLONE ACET INJ NOS CPT-4: J3301 12/07/2014 Vital Signs Date Vital 07/09/2018 Blood Pressure 1: 138/82 Code: 8480-6 BMI: 31.6 Code: 27191-8 Heart Rate 1: 82 bpm Height: 5'7" SpO2: 96% Weight: 202 lbs 06/04/2018 Blood Pressure 1: 144/76 Code: 8480-6 BMI: 32.0 Code: 49083-9 Heart Rate 1: 82 bpm Height: 5'7" SpO2: 96% Temperature: 36.5 (C) / 97.7 (F) Weight: 204 lbs 03/11/2018 Blood Pressure 1: 142/82 Code: 8480-6 BMI: 32.1 Code: 24244-6 Heart Rate 1: 87 bpm Height: 5'7" SpO2: 97% Weight: 205 lbs 02/17/2018 Blood Pressure 1: 132/76 Code: 8480-6 BMI: 33.5 Code: 78880-5 Heart Rate 1: 92 bpm Height: 5'7" SpO2: 98% Weight: 214 lbs 12/21/2017 Blood Pressure 1: 154/78 Code: 8480-6 BMI: 33.5 Code: 63904-2 Heart Rate 1: 93 bpm Height: 5'7" SpO2: 96% Weight: 214 lbs 11/30/2017 Blood Pressure 1: 148/88 Code: 8480-6 BMI: 33.5 Code: 80402-4 Heart Rate 1: 80 bpm Height: 5'7" SpO2: 97% Temperature: 36.9 (C) / 98.5 (F) Weight: 214 lbs 05/28/2017 Blood Pressure 1: 128/70 Code: 8480-6 BMI: 31.3 Code: 29600-5 Heart Rate 1: 103 bpm Height: 5'7" SpO2: 98% Temperature: 36.7 (C) / 98.1 (F) Weight: 200 lbs 05/19/2017 Blood Pressure 1: 150/72 Code: 8480-6 04/16/2017 Blood Pressure 1: 146/88 Code: 8480-6 BMI: 31.3 Code: 55511-6 Heart Rate 1: 96 bpm Height: 5'7" SpO2: 94% Temperature: 37.2 (C) / 99.0 (F) Weight: 200 lbs 02/10/2017 Blood Pressure 1: 132/72 Code: 8480-6 BMI: 31.3 Code: 15864-7 Heart Rate 1: 99 bpm Height: 5'7" SpO2: 97% Weight: 200 lbs 02/02/2017 Blood Pressure 1: 140/68 Code: 8480-6 BMI: 31.4 Code: 06038-8 Heart Rate 1: 82 bpm Height: 5'7" SpO2: 97% Weight: 200 lbs 8 oz 01/27/2017 Blood Pressure 1: 142/80 Code: 8480-6 BMI: 32.2 Code: 37963-9 Height: 5'7" Temperature: 37.2 (C) / 98.9 (F) Weight: 205 lbs 8 oz 11/07/2016 Blood Pressure 1: 148/82 Code: 8480-6 BMI: 32.7 Code: 81569-9 Heart Rate 1: 106 bpm Height: 5'7" SpO2: 97% Weight: 209 lbs 03/26/2016 Blood Pressure 1: 140/86 Code: 8480-6 Heart Rate 1: 90 bpm Height: SpO2: 97% Weight: 12/13/2015 Blood Pressure 1: 132/72 Code: 8480-6 BMI: 31.2 Code: 13268-6 Heart Rate 1: 84 bpm Height: 5'7" SpO2: 98% Weight: 199 lbs 08/15/2015 Blood Pressure 1: 138/88 Code: 8480-6 BMI: 32.1 Code: 82577-7 Heart Rate 1: 94 bpm Height: 5'7" SpO2: 97% Weight: 205 lbs 06/13/2015 Blood Pressure 1: 188/88 Code: 8480-6 Blood Pressure 1: 146/78 Code: 8480-6 BMI: 32.6 Code: 12750-9 Heart Rate 1: 97 bpm Height: 5'7" SpO2: 98% Weight: 208 lbs 06/07/2015 Blood Pressure 1: 128/82 Code: 8480-6 BMI: 32.4 Code: 25583-6 Heart Rate 1: 80 bpm Height: 5'7" SpO2: 99% Weight: 207 lbs 03/13/2015 Blood Pressure 1: 124/70 Code: 8480-6 BMI: 31.6 Code: 64236-7 Heart Rate 1: 103 bpm Height: 5'7" Respiratory Rate: 18 bpm SpO2: 97% Temperature: 36.6 (C) / 97.8 (F) Weight: 202 lbs 12/07/2014 Blood Pressure 1: 140/80 Code: 8480-6 BMI: 32.3 Code: 54413-7 Heart Rate 1: 97 bpm Height: 5'7" SpO2: 99% Weight: 206 lbs 09/07/2014 Blood Pressure 1: 132/78 Code: 8480-6 BMI: 31.2 Code: 70619-8 Heart Rate 1: 92 bpm Height: 5'7" [...] Location diffusely 09/07/2014 improvement with shunt placement- 08-11-14- Dr Ruvalcaba in [place] did surgery headache Onset and Resolution ongoing [...] data Encounters Encounter Performer Location Codes Date ([id number]) [id number] EST. PATIENT, LEVEL IV Diagnosis: Type 2 diabetes mellitus with hyperglycemia[ICD10: E11.65] Diagnosis: Essential (primary) hypertension[ICD10: I10] Diagnosis: Acute recurrent maxillary sinusitis[ICD10: J01.01] Kaylan Dunham MD, [facility] CPT-4: 20236 07/09/2018 ([id number]) [id number] EST. PATIENT, LEVEL IV Diagnosis: Type 2 diabetes mellitus with hyperglycemia[ICD10: E11.65] Diagnosis: Mixed hyperlipidemia[ICD10: E78.2] Diagnosis: Other allergic rhinitis[ICD10: J30.89] Kaylan Dunham MD, [facility] CPT-4: 19256 06/04/2018 ([id number]) 77997 EST. PATIENT, LEVEL IV Diagnosis: Type 2 diabetes mellitus with hyperglycemia[ICD10: E11.65] Diagnosis: Mixed hyperlipidemia[ICD10: E78.2] Diagnosis: Essential (primary) hypertension[ICD10: I10] Kaylan Dunham MD, [facility] CPT-4: 29205 03/11/2018 [id number] EST. PATIENT, LEVEL III Diagnosis: Paresthesia of skin[ICD10: R20.2] Aditi Dunham MD, [facility] CPT-4: 08318 02/17/2018 [id number] EST. PATIENT, LEVEL IV Diagnosis: Pain in right shoulder[ICD10: M25.511] Diagnosis: Rash and other nonspecific skin eruption[ICD10: R21] Aditi Dunham MD, [facility] CPT-4: 08256 12/21/2017 [id number] EST. PATIENT, LEVEL IV Diagnosis: Other acute sinusitis[ICD10: J01.80] Diagnosis: Other allergic rhinitis[ICD10: J30.89] Diagnosis: Localized edema[ICD10: R60.0] Aditi Dunham MD, [facility] CPT-4: 92414 11/30/2017 ([id number]) [id number] EST. PATIENT, LEVEL III Diagnosis: Acute recurrent maxillary sinusitis[ICD10: J01.01] Diagnosis: Cough[ICD10: R05] Tavia Dunham MD, [facility] CPT-4: 04875 05/28/2017 ([id number]) 67974 EST. PATIENT, LEVEL III Diagnosis: Acute laryngopharyngitis[ICD10: J06.0] Diagnosis: Cough[ICD10: R05] Tavia Dunham MD, [facility] CPT-4: 01369 04/16/2017 [id number] EST. PATIENT, LEVEL III Diagnosis: Left lower quadrant pain[ICD10: R10.32] Aditi Dunham MD, [facility] CPT-4: 76577 02/10/2017 ([id number]) 77855 EST. PATIENT, LEVEL III Diagnosis: Pain in thoracic spine[ICD10: M54.6] Diagnosis: Other muscle spasm[ICD10: M62.838] Tavia Dunham MD, [facility] CPT- 4: 89575 02/02/2017 ([id number]) 48896 EST. PATIENT, LEVEL IV Diagnosis: Other acute pancreatitis without necrosis or infection[ICD10: K85.80] Diagnosis: Epigastric pain[ICD10: R10.13] Diagnosis: Type 2 diabetes mellitus without complications[ICD10: E11.9] Tavia Dunham MD, [facility] CPT-4: 63663 01/27/2017 99939 EST. PATIENT, LEVEL IV Diagnosis: Essential (primary) hypertension[ICD10: I10] Diagnosis: Type 1 diabetes mellitus without complications[ICD10: E10.9] Diagnosis: Other specified hypothyroidism[ICD10: E03.8] Diagnosis: Bilateral primary osteoarthritis of hip[ICD10: M16.0] Diagnosis: Actinic keratosis[ICD10: L57.0] Aditi Dunham MD, [facility] CPT-4: 66023 11/07/2016 [id number] EST. PATIENT, LEVEL III Diagnosis: Other acute sinusitis[ICD10: J01.80] Diagnosis: Other allergic rhinitis[ICD10: J30.89] Diagnosis: Cough[ICD10: R05] Aditi Dunham MD, [facility] CPT-4: 24501 03/26/2016 ([id number]) 43465 EST. PATIENT, LEVEL IV Diagnosis: Essential (primary) hypertension[ICD10: I10] Diagnosis: Pure hyperglyceridemia[ICD10: E78.1] Tavia Dunham MD, [facility] CPT- 4: 76236 12/13/2015 ([id number]) 28725 EST. PATIENT, LEVEL III Diagnosis: Essential (primary) hypertension[ICD10: I10] Diagnosis: (Idiopathic) normal pressure hydrocephalus[ICD10: G91.2] Tavia Dunham MD, [facility] CPT-4: 74712 08/15/2015 88584 EST. PATIENT, LEVEL III Diagnosis: Other acute nonsuppurative otitis media, right ear[ICD10: H65.191] Diagnosis: Acute upper respiratory infection, unspecified[ICD10: J06.9] Aditi Dunham MD, [facility] CPT-4: 86492 06/13/2015 ([id number]) 57348 EST. PATIENT, LEVEL III Diagnosis: Acute recurrent maxillary sinusitis[ICD10: J01.01] Diagnosis: Allergic rhinitis due to pollen[ICD10: J30.1] Kaylan Dunham MD, [facility] CPT-4: 58215 06/07/2015 ([id number]) 04530 EST. PATIENT, LEVEL IV Diagnosis: (Idiopathic) normal pressure hydrocephalus[ICD10: G91.2] Diagnosis: Essential (primary) hypertension[ICD10: I10] Diagnosis: Dizziness and giddiness[ICD10: R42] Diagnosis: Nausea with vomiting, unspecified[ICD10: R11.2] Kaylan Dunham MD, [facility] CPT-4: 23730 03/13/2015 [id number] EST. PATIENT, LEVEL III Diagnosis: Acute sinusitis, unspecified[ICD10: J01.90] Diagnosis: Allergic rhinitis, unspecified[ICD10: J30.9] Tavia Dunham MD, [facility] CPT-4: 17528 12/07/2014 ([id number]) 85927 EST. PATIENT, LEVEL IV Diagnosis: ESSENTIAL HYPERTENSION[ICD9: 401.9] Diagnosis: DIABETES TYPE II[ICD9: 250.00] Diagnosis: NPH (normal pressure hydrocephalus)[ICD9: 331.5] Diagnosis: Hypertriglyceridemia[ICD9: 272.1] Kaylan Dunham MD, [facility] CPT- 4: 55749 09/07/2014 ([id number]) OFFICE/OUTPATIENT VISIT NEW Diagnosis: DIABETES TYPE II[ICD9: 250.00] Diagnosis: ESSENTIAL HYPERTENSION[ICD9: 401.9] Diagnosis: NPH (normal pressure hydrocephalus)[ICD9: 331.5] Diagnosis: Abnormal gait[ICD9: 781.2] Diagnosis: VITAMIN D DEFICIENCY[ICD9: 268.9] Tavia Dunham MD, [facility] CPT- 4: 97993 08/07/2014 Plan of Care Planned Activity Notes [...] improvement. 07/09/2018 [facility] [phone] [phone] [facility] Complex 07/09/2018 Patient Education: Patient [...] the nasal steroid allergy spray. 06/04/2018 App[facility]ment[facility] [phone] [phone] ([facility]) Complex 06/04/2018 Patient Education: Patient Medication Summary Completed 06/04/2018 Patient Education: Cholesterol Management Completed 06/04/2018 Patient Education: Patient Medication Summary Completed 05/25/2018 Care Plan: A1C HPLC LOINC : 31064-6 Pending 05/25/2018 Referral: Ammon Joiner Patient informed. [...] home. 03/11/2018 App[facility]ment[facility] [phone] [phone] ([facility] min) Complex 03/11/2018 Patient Education: Patient Medication Summary Completed 03/11/2018 Patient Education: Cholesterol Management Completed 03/11/2018 Patient Education: Hypertension Completed 03/11/2018 Care Plan: Referral Order SNOMED-CT : [id number] Pending 03/11/2018 Visit Plan: Parasthesia - ongoing for about a month - will send RX and refer pt for EMG - The pt is to use prn antiinflammatories to manage acute pain. The patient is to call the office if the pain is worsening or does not improve. 02/17/2018 App[facility]ment[facility] [phone] [facility] (15 min) Moderate 02/17/2018 Patient Education: Patient [...] discharge. 12/21/2017 Appointment: Aditi Hamilton WPtel: [phone] [facility] [place] (15 min) Moderate 12/21/2017 Patient Education: Patient Medication Summary Completed 12/21/2017 Appointment: Tavia Dunham WPtel: [phone] [facility] (15 min) Moderate 12/02/2017 Visit Plan: Sinusitis [...] edema. 11/30/2017 Appointment: Aditi Hamilton WPtel: [phone] [facility] (15 min) Moderate 11/30/2017 Patient Education: Patient Medication Summary Completed 11/30/2017 Care Plan: Comp Metabolic Pending 11/30/2017 Care Plan: Cbc With Differential Pending 11/30/2017 Care Plan: %Hba1C LOINC : 30980-6 Pending 11/30/2017 Care Plan: Lipid Pending 11/30/2017 Care Plan: Tsh Pending 11/30/2017 Care Plan: Free T4 Pending 11/30/2017 [phone] [facility] [place] (15 min) Moderate 11/26/2017 App[facility]ment[facility] [phone] [phone] [place] (30 min) Complex 08/13/2017 Appointment: [facility] [phone] [facility] [place] (15 min) Moderate 08/04/2017 Appointment: Tavia Dunham WPtel: [phone] [facility] [place] (15 min) Moderate 07/20/2017 Visit Plan: [...] today 05/28/2017 Appointment: [facility] [phone] [facility] [place] (30 min) Complex 05/28/2017 Patient Education: [...] patient's pharmacy. 04/16/2017 Appointment: [facility] [phone] [facility] [place] (15 min) Moderate 04/16/2017 Patient Education: [...] concerns. 02/10/2017 Appointment: Aditi Hamilton WPtel: [phone] [facility] (15 min) Moderate 02/10/2017 Patient Education: Patient Medication Summary Completed 02/10/2017 Patient Education: Obesity Completed 02/10/2017 Visit Plan: Pain in Thoracic spine with muscle spasm - ibuprofen 600mg three times daily x 3 days, rx for cyclobenzaprine. 02/02/2017 Appointment: Tavia Dunham WPtel: [phone] [facility] (15 min) Moderate 02/02/2017 Patient Education: Patient [...] today. 01/27/2017 Appointment: [facility] [phone] [facility] [place] (15 min) Moderate 01/27/2017 Patient Education: Patient [...] pain symptoms. 11/07/2016 Appointment: Aditi Hamilton [facility]Ptel[facility] ([facility] 11/07/2016 Patient Education: Patient [...] spray. 03/26/2016 Appointment: [facility] Hamilton [facility] [phone] [facility] ([facility] min) Complex 03/26/2016 Patient Education: Patient [...] medications. 12/13/2015 Appointment: [facility] [phone] [facility] (15 min) Moderate 12/13/2015 [...] on supplement. 08/07/2014 Appointment: Tavia Dunham WPtel[facility] [place] ([place] New Patient 08/07/2014 Patient Education: [...]
[2018-10-08 10:41] LABS: INR 0.9 (0.8-1.4); PROTHROMBIN TIME PATIENT 12.5 SEC (12.2-14.7)
--- OUTSIDE RECORDS SUMMARY | 2018-10-08 10:49 | XMS REPORT | CCD ---
Author Author [facility] Organization [facility] Address [address] [place] [address] Phone Care Team Providers Care Network Administrator Name Role Phone PP Unavailable CCM Unavailable Summary Purpose Interface Exchange Insurance Providers Payer name Policy type / Coverage type Covered republican ID Effective Begin Date Effective End Date Blue Cross Blue [facility] Blue Cross/Blue [facility] [id number] Unknown Family history Mother Diagnosis Age At Onset Cancer Unknown Arthritis Unknown Depression Unknown Hyperlipidemia Unknown Diabetes mellitus Type 2 Unknown Social History Social History Element Codes Description Effective Dates Marital status Unknown [place] 08/07/2014 Number of children Unknown 0 08/07/2014 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/07/[address]: 081400572 Never smoker 08/07/[address]: 341430265 Never drinks alcohol 08/07/2014 Allergies, Adverse Reactions, [...] Start Date Stop Date Status Fill Instructions hydrochlorothiazide 25 mg tablet RxNorm: 152472 TAKE 1 TABLET BY MOUTH ONCE DAILY 08/02/2018 No Stop Date Active Levemir FlexTouch U-100 Insulin 100 unit/mL (3 mL) subcutaneous pen RxNorm: 312378 35-40 Unit(s) SQ BID 07/09/2018 11/05/2018 Active INCREASE TO 40 UNITS Q AM AND 35 UNTIS Q HS Levemir FlexTouch U-100 Insulin 100 unit/mL (3 mL) subcutaneous pen RxNorm: 776827 35-40 Unit(s) SQ BID 07/09/2018 07/08/2018 Inactive INCREASE TO 40 UNITS Q AM AND 35 UNTIS Q HS doxycycline hyclate 100 mg tablet RxNorm: 7834626 1 Tablet(s) PO BID 07/09/2018 07/18/2018 Inactive venlafaxine ER 150 mg capsule,extended release 24 hr RxNorm: 394997 TAKE 1 CAPSULE BY MOUTH ONCE DAILY 06/08/2018 No Stop Date Active Levemir FlexTouch U-100 Insulin 100 unit/mL (3 mL) subcutaneous pen RxNorm: 013222 30 Unit(s) SQ BID 06/04/2018 07/08/2018 Inactive update RX -increase to 35 units BID if blood sugars over 200 Augmentin 875 mg-125 mg tablet RxNorm: 580200 1 Tablet(s) PO BID 06/04/2018 06/10/2018 Inactive hydrochlorothiazide 25 mg tablet RxNorm: 954346 TAKE 1 TABLET BY MOUTH ONCE DAILY 03/23/2018 08/01/2018 Inactive Levemir FlexTouch U-100 Insulin 100 unit/mL (3 mL) subcutaneous pen RxNorm: 405831 30 Unit(s) SQ QAM and 25 Units SQ QPM 03/18/2018 06/03/2018 Inactive Levemir FlexTouch U-100 Insulin 100 unit/mL (3 mL) subcutaneous pen RxNorm: 561534 Unit(s) 03/11/2018 03/17/2018 Inactive 30 q am and 25 units q PM pravastatin 40 mg tablet RxNorm: 114002 1 Tablet(s) PO daily take with coenzyme q 10 daily 03/03/2018 02/25/2019 Active Levemir FlexTouch U-100 Insulin 100 unit/mL (3 mL) subcutaneous pen RxNorm: 816148 Unit(s) INJECT 25 UNITS SUBCUTANEOUSLY TWICE DAILY 03/03/2018 03/10/2018 Inactive pravastatin 10 mg tablet RxNorm: 869223 1 Tablet(s) PO daily take with coenzyme q 10 daily 02/26/2018 03/02/2018 Inactive prednisone 20 mg tablet RxNorm: 493917 2 Tablet(s) PO daily 02/17/2018 02/21/2018 Inactive levothyroxine 125 mcg tablet RxNorm: 706851 TAKE 1 TABLET BY MOUTH ONCE DAILY 01/11/2018 No Stop Date Active cyclobenzaprine 5 mg tablet RxNorm: 343758 1 Tablet(s) PO TID as needed 12/28/2017 01/11/2018 Inactive Zorvolex 35 mg capsule RxNorm: 8588127 1 Capsule(s) PO TID as needed 12/25/2017 05/23/2018 Inactive Levemir FlexTouch U-100 Insulin 100 unit/mL (3 mL) subcutaneous pen RxNorm: 125643 INJECT 2O UNITS SUBCUTANEOUSLY TWICE DAILY 12/21/2017 03/02/2018 Inactive cyclobenzaprine 5 mg tablet RxNorm: 240024 1 Tablet(s) PO TID as needed 12/21/2017 12/25/2017 Inactive doxycycline hyclate 100 mg capsule RxNorm: 8867233 1 Capsule(s) PO BID 12/21/2017 12/30/2017 Inactive venlafaxine ER 150 mg capsule,extended release 24 hr RxNorm: 597729 TAKE 1 CAPSULE BY MOUTH ONCE DAILY 12/10/2017 06/07/2018 Inactive Singulair 10 mg tablet RxNorm: 637685 1 Tablet(s) PO daily 12/03/2017 12/02/2017 Inactive Singulair 10 mg tablet RxNorm: 055995 1 Tablet(s) PO daily 12/03/2017 01/01/2018 Inactive Zithromax Z-Kulwant 250 mg tablet RxNorm: 903973 1 Tablet(s) PO UD 12/03/2017 03/10/2018 Inactive z pack as directed Kenalog 40 mg/mL suspension for injection RxNorm: 2773620 1 Milliliter(s) Inj 11/30/2017 11/30/2017 Inactive prednisone 20 mg tablet RxNorm: 206660 2 Tablet(s) PO daily 11/30/2017 12/04/2017 Inactive Augmentin 875 mg-125 mg tablet RxNorm: 964250 1 Tablet(s) PO BID 11/27/2017 11/26/2017 Inactive Augmentin 875 mg-125 mg tablet RxNorm: 260909 1 Tablet(s) PO BID 11/27/2017 12/03/2017 Inactive Zorvolex 35 mg capsule RxNorm: 0523683 1 Capsule(s) PO TID as needed 11/09/2017 12/24/2017 Inactive hydrochlorothiazide 25 mg tablet RxNorm: 114419 1 Tablet(s) PO daily 10/22/2017 02/18/2018 Inactive enalapril maleate 5 mg tablet RxNorm: 533033 1 Tablet(s) PO daily TAKE ONE TABLET BY MOUTH ONCE DAILY 08/21/2017 02/16/2018 Inactive Levemir FlexTouch U-100 Insulin 100 unit/mL (3 mL) subcutaneous pen RxNorm: 829253 20 Unit(s) SQ BID 07/30/2017 12/20/2017 Inactive levothyroxine 125 mcg tablet RxNorm: 074271 TAKE ONE TABLET BY MOUTH ONCE DAILY 06/29/2017 01/10/2018 Inactive venlafaxine ER 150 mg capsule,extended release 24 hr RxNorm: 718296 1 Capsule(s) PO daily TAKE ONE CAPSULE BY MOUTH ONCE DAILY 06/08/2017 12/04/2017 Inactive prednisone 20 mg tablet RxNorm: 785581 1 Tablet(s) PO daily 06/02/2017 06/06/2017 Inactive prednisone 20 mg tablet RxNorm: 889936 1 Tablet(s) PO daily 06/01/2017 06/05/2017 Inactive Kenalog 40 mg/mL suspension for injection RxNorm: 1251461 1 Milliliter(s) Inj 05/28/2017 05/28/2017 Inactive cefdinir 300 mg capsule RxNorm: 991876 1 Capsule(s) PO BID 05/28/2017 06/03/2017 Inactive ceftriaxone 500 mg solution for injection RxNorm: 4353386 1 Inj 05/28/2017 05/28/2017 Inactive prednisone 20 mg tablet RxNorm: 928613 1 Tablet(s) PO daily 05/28/2017 05/31/2017 Inactive Keflex 500 mg capsule RxNorm: 648124 1 Capsule(s) PO TID 05/26/2017 06/01/2017 Inactive Keflex 500 mg capsule RxNorm: 505593 1 Capsule(s) PO TID 05/26/2017 05/25/2017 Inactive hydrocodone 10 mg-chlorpheniramine 8 mg/5 mL oral susp extend.rel 12hr RxNorm: 0053464 5-10 Milliliter(s) PO TID as needed 04/16/2017 No Stop Date Active Tussionex Pennkinetic ER 10 mg-8 mg/5 mL suspension,extended release RxNorm: 6989085 5 Milliliter(s) PO BID 04/16/2017 04/27/2017 Inactive Zithromax Z-Kulwant 250 mg tablet RxNorm: 797186 1 Tablet(s) PO UD 03/25/2017 04/15/2017 Inactive z pack as directed enalapril maleate 5 mg tablet RxNorm: 494857 TAKE ONE TABLET BY MOUTH ONCE DAILY 02/26/2017 08/20/2017 Inactive Levemir FlexTouch 100 unit/mL (3 mL) subcutaneous insulin pen RxNorm: 886769 20 Unit(s) SQ BID 02/10/2017 07/11/2017 Inactive Zorvolex 35 mg capsule RxNorm: 9890026 1 Capsule(s) PO TID as needed 02/10/2017 11/08/2017 Inactive valacyclovir 1 gram tablet RxNorm: 153214 1 Tablet(s) PO TID 02/10/2017 02/16/2017 Inactive Levemir FlexTouch 100 unit/mL (3 mL) subcutaneous insulin pen RxNorm: 538673 20 Unit(s) SQ BID 02/04/2017 02/09/2017 Inactive cyclobenzaprine 5 mg tablet RxNorm: 308348 1 Tablet(s) PO qhs x 3 nights and TID as needed muscle spasms 02/02/2017 No Stop Date Active levothyroxine 125 mcg tablet RxNorm: 177887 TAKE ONE TABLET BY MOUTH ONCE DAILY 12/08/2016 06/05/2017 Inactive venlafaxine ER 150 mg capsule,extended release 24 hr RxNorm: 794432 TAKE ONE CAPSULE BY MOUTH ONCE DAILY 12/01/2016 05/29/2017 Inactive Zorvolex 35 mg capsule RxNorm: 0803244 1 Capsule(s) PO TID as needed do not take meloxicam at the same time 11/07/2016 No Stop Date Active enalapril maleate 5 mg tablet RxNorm: 867492 TAKE ONE TABLET BY MOUTH ONCE DAILY 10/31/2016 12/29/2016 Inactive meloxicam 15 mg tablet RxNorm: 308128 TAKE ONE TABLET BY MOUTH ONCE DAILY 10/30/2016 03/10/2018 Inactive meloxicam 15 mg tablet RxNorm: 632529 TAKE ONE TABLET BY MOUTH ONCE DAILY 10/24/2016 10/29/2016 Inactive enalapril maleate 5 mg tablet RxNorm: 989055 TAKE ONE TABLET BY MOUTH ONCE DAILY 10/24/2016 10/30/2016 Inactive venlafaxine ER 150 mg capsule,extended release 24 hr RxNorm: 363300 TAKE ONE CAPSULE BY MOUTH ONCE DAILY 06/16/2016 11/12/2016 Inactive meloxicam 15 mg tablet RxNorm: 777066 TAKE ONE TABLET BY MOUTH ONCE DAILY 06/09/2016 10/06/2016 Inactive enalapril maleate 5 mg tablet RxNorm: 300835 TAKE ONE TABLET BY MOUTH ONCE DAILY 06/02/2016 09/29/2016 Inactive Zithromax Z-Kulwant 250 mg tablet RxNorm: 201286 1 Tablet(s) PO UD 05/21/2016 06/15/2016 Inactive levothyroxine 125 mcg tablet RxNorm: 711196 Tablet(s) TAKE ONE TABLET BY MOUTH ONCE DAILY 04/15/2016 10/11/2016 Inactive Levaquin 500 mg tablet RxNorm: 845822 1 Tablet(s) PO daily 04/03/2016 04/09/2016 Inactive Levaquin 500 mg tablet RxNorm: 747567 1 Tablet(s) PO daily 04/03/2016 04/02/2016 Inactive prednisone 20 mg tablet RxNorm: 896023 2 Tablet(s) PO daily 03/28/2016 04/01/2016 Inactive Zithromax Z-Kulwant 250 mg tablet RxNorm: 008608 1 Tablet(s) PO UD 03/26/2016 03/30/2016 Inactive zpack Kenalog 40 mg/mL suspension for injection RxNorm: 2949105 Milliliter(s) Inj 03/26/2016 03/26/2016 Inactive Zofran ODT 4 mg disintegrating tablet RxNorm: 949469 DISSOLVE ONE TABLET IN MOUTH EVERY 6 HOURS NEEDED 02/22/2016 02/29/2016 Inactive venlafaxine ER 150 mg capsule,extended release 24 hr RxNorm: 894080 TAKE ONE CAPSULE BY MOUTH ONCE DAILY 02/18/2016 06/15/2016 Inactive meloxicam 15 mg tablet RxNorm: 612683 TAKE ONE TABLET BY MOUTH ONCE DAILY 02/04/2016 06/02/2016 Inactive aspirin 81 mg chewable tablet RxNorm: 642098 1 Tablet(s) PO daily 12/13/2015 12/06/2016 Inactive biotin 2,500 mcg tablet RxNorm: 615650 1 Tablet(s) PO daily 12/13/2015 09/07/2016 Inactive hydrochlorothiazide 25 mg tablet RxNorm: 137082 1 Tablet(s) PO daily 12/13/2015 04/10/2016 Inactive enalapril maleate 5 mg tablet RxNorm: 489990 TAKE ONE TABLET BY MOUTH ONCE DAILY 11/22/2015 05/19/2016 Inactive venlafaxine ER 150 mg capsule,extended release 24 hr RxNorm: 598819 TAKE ONE CAPSULE BY MOUTH ONCE DAILY 11/14/2015 02/11/2016 Inactive levothyroxine 125 mcg tablet RxNorm: 780647 Tablet(s) TAKE ONE TABLET BY MOUTH ONCE DAILY 11/06/2015 04/14/2016 Inactive levothyroxine 125 mcg tablet RxNorm: 362223 Tablet(s) TAKE ONE TABLET BY MOUTH ONCE DAILY 08/06/2015 11/03/2015 Inactive meclizine 25 mg tablet RxNorm: 473275 1/2-1 Tablet(s) PO Q6 as needed 07/16/2015 No Stop Date Active Flonase Allergy Relief 50 mcg/actuation nasal spray,suspension RxNorm: 1 [place] NASAL daily 06/13/2015 No Stop Date Active prednisone 20 mg tablet RxNorm: 864579 2 Tablet(s) PO daily 06/13/2015 06/17/2015 Inactive Augmentin 875 mg-125 mg tablet RxNorm: 141224 1 Tablet(s) PO BID 06/13/2015 06/19/2015 Inactive Zithromax Z-Kulwant 250 mg tablet RxNorm: 746263 1 Tablet(s) PO UD 06/07/2015 06/11/2015 Inactive zpack Kenalog 40 mg/mL suspension for injection RxNorm: 1497624 Milliliter(s) Inj 06/07/2015 06/07/2015 Inactive venlafaxine ER 150 mg capsule,extended release 24 hr RxNorm: 867933 TAKE ONE CAPSULE BY MOUTH ONCE DAILY 05/14/2015 11/09/2015 Inactive Augmentin 500 mg-125 mg tablet RxNorm: 703207 1 Tablet(s) PO TID 04/25/2015 05/04/2015 Inactive Augmentin 500 mg-125 mg tablet RxNorm: 611221 1 Tablet(s) PO TID 04/25/2015 04/24/2015 Inactive pravastatin 10 mg tablet RxNorm: 088024 1 Tablet(s) PO daily take with coenzyme q 10 daily 03/21/2015 03/20/2015 Inactive DC crestor pravastatin 10 mg tablet RxNorm: 537341 1 Tablet(s) PO daily take with coenzyme q 10 daily 03/21/2015 07/18/2015 Inactive DC crestor Zofran ODT 4 mg disintegrating tablet RxNorm: 398594 1 Tablet(s) PO Q6 PRN 03/13/2015 02/21/2016 Inactive levothyroxine 125 mcg tablet RxNorm: 571235 TAKE ONE TABLET BY MOUTH ONCE DAILY 02/13/2015 08/05/2015 Inactive meloxicam 15 mg tablet RxNorm: 894409 1 Tablet(s) PO daily 01/28/2015 01/22/2016 Inactive Zofran 4 mg tablet RxNorm: 234698 1 Tablet(s) PO Q6-8H as needed nausea 01/24/2015 No Stop Date Active Trulicity 1.5 mg/0.5 mL subcutaneous pen injector RxNorm: 3382930 0.75mg Milliliter(s) SQ QW 01/10/2015 03/10/2018 Inactive venlafaxine ER 150 mg capsule,extended release 24 hr RxNorm: 291206 1 Capsule(s) PO daily 01/10/2015 05/09/2015 Inactive enalapril maleate 5 mg tablet RxNorm: 542656 1 Tablet(s) PO daily 01/04/2015 07/02/2015 Inactive amoxicillin 500 mg tablet RxNorm: 243726 1 Tablet(s) PO BID 12/07/2014 12/06/2014 Inactive Probiotic & Acidophilus 300 million cell-250 mg capsule RxNorm: 1 Capsule(s) PO BID 12/07/2014 12/16/2014 Inactive amoxicillin 500 mg tablet RxNorm: 067343 1 Tablet(s) PO BID 12/07/2014 12/16/2014 Inactive Kenalog 40 mg/mL suspension for injection RxNorm: 9689432 1 Milliliter(s) Inj 12/07/2014 12/07/2014 Inactive meloxicam 15 mg tablet RxNorm: 232934 1 Tablet(s) PO daily 10/24/2014 10/23/2014 Inactive meloxicam 15 mg tablet RxNorm: 928830 1 Tablet(s) PO daily 10/24/2014 01/27/2015 Inactive azithromycin 500 mg tablet RxNorm: 155897 1 Tablet(s) PO daily 10/11/2014 10/15/2014 Inactive azithromycin 500 mg tablet RxNorm: 036776 1 Tablet(s) PO daily 10/11/2014 10/10/2014 Inactive levothyroxine 125 mcg tablet RxNorm: 484494 1 Tablet(s) PO daily 10/06/2014 02/02/2015 Inactive enalapril maleate 5 mg tablet RxNorm: 498937 1 Tablet(s) PO daily 08/29/2014 12/26/2014 Inactive enalapril maleate 5 mg tablet RxNorm: 517506 1 Tablet(s) PO daily 08/25/2014 08/28/2014 Inactive Medroxy oral RxNorm: 8848307 oral No Start Date Active Vitamin D3 5,000 unit tablet RxNorm: 182966 1 Tablet(s) PO daily No Start Date Active fluconazole 200 mg tablet RxNorm: 524470 Tablet(s) PO No Start Date Active estradiol 2 mg tablet RxNorm: 024818 1 Tablet(s) PO daily No Start Date Active fenofibrate nanocrystallized 145 mg tablet RxNorm: 115492 1 Tablet(s) PO daily No Start Date Active hydrocodone 5 mg-acetaminophen 325 mg tablet RxNorm: 744702 1-2 Tablet(s) PO Q4-6H as needed No Start Date Active enalapril maleate 5 mg tablet RxNorm: 651061 1 Tablet(s) PO daily No Start Date 08/24/2014 Inactive glimepiride 4 mg tablet RxNorm: 838311 1 Tablet(s) PO daily No Start Date 01/26/2017 Inactive meclizine 25 mg tablet RxNorm: 673513 1/2-1 Tablet(s) PO Q6 as needed No Start Date 07/15/2015 Inactive Trulicity 0.75 mg/0.5 mL subcutaneous pen injector RxNorm: 3582881 0.75mg Milliliter(s) SQ QW No Start Date 01/09/2015 Inactive metformin 1,000 mg tablet RxNorm: 147465 Tablet(s) PO BID No Start Date 01/26/2017 Inactive venlafaxine ER 150 mg capsule,extended release 24 hr RxNorm: 890714 1 Capsule(s) PO daily No Start Date 01/09/2015 Inactive meloxicam 15 mg tablet RxNorm: 860628 1 Tablet(s) PO daily No Start Date 10/23/2014 Inactive levothyroxine 125 mcg tablet RxNorm: 559040 1 Tablet(s) PO daily No Start Date 10/05/2014 Inactive Levemir FlexTouch 100 unit/mL (3 mL) subcutaneous insulin pen RxNorm: 042692 15 Unit(s) SQ daily No Start Date 02/03/2017 Inactive Zithromax Z-Kulwant 250 mg tablet RxNorm: 469419 1 Tablet(s) PO UD No Start Date 05/20/2016 Inactive Fish Oil 1,000 mg capsule RxNorm: 1 Capsule(s) PO BID No Start Date 11/04/2016 Inactive Zofran 4 mg tablet RxNorm: 798102 1 Tablet(s) PO Q6-8H as needed nausea No Start Date 01/23/2015 Inactive Crestor 10 mg tablet RxNorm: 626244 1 Tablet(s) PO daily No Start Date 03/20/2015 Inactive Medication Administered Medication Codes Instructions Start Date Status Kenalog 40 mg/mL suspension for injection RxNorm: 7553996 1Milliliter 11/30/2017 No longer Active Kenalog 40 mg/mL suspension for injection RxNorm: 4443873 1Milliliter 05/28/2017 No longer Active ceftriaxone 500 mg solution for injection RxNorm: 2318521 1 05/28/2017 No longer Active Kenalog 40 mg/mL suspension for injection RxNorm: 3511265 Milliliter 03/26/2016 No longer Active Kenalog 40 mg/mL suspension for injection RxNorm: 6949584 Milliliter 06/07/2015 No longer Active Kenalog 40 mg/mL suspension for injection RxNorm: 9779228 1Milliliter 12/07/2014 No longer Active Immunizations Vaccine [...] Item Item Code Result Date CHEM 14 [id number] AST TNP:Lab Request 01/27/2017 CHEM 14 [id number] ALT TNP:Lab Request 01/27/2017 CHEM 14 [id number] BUN TNP:Lab Request 01/27/2017 CHEM 14 [id number] ALBUMIN TNP:Lab Request 01/27/2017 CHEM 14 [id number] CHLORIDE TNP:Lab Request 01/27/2017 CHEM 14 [id number] Bili Total TNP:Lab Request 01/27/2017 CHEM 14 [id number] ALK PHOS TNP:Lab Request 01/27/2017 CHEM 14 [id number] SODIUM TNP:Lab Request 01/27/2017 CHEM 14 [id number] CREATININE TNP:Lab Request 01/27/2017 CHEM 14 [id number] CALCIUM TNP:Lab Request 01/27/2017 CHEM 14 [id number] POTASSIUM TNP:Lab Request 01/27/2017 CHEM 14 [id number] TOTAL PROTEIN TNP:Lab Request 01/27/2017 CHEM 14 [id number] GLUCOSE TNP:Lab Request 01/27/2017 CHEM 14 [id number] Bicarbonate TNP:Lab Request 01/27/2017 CHEM 14 [id number] AGAP TNP:Lab Request 01/27/2017 AMYLASE [id number] Amylase Lvl TNP:Lab Request 01/27/2017 LIPID GRP CHOLESTEROL 273 mg/dL 2016 LIPID GRP Triglyceride 583 mg/dL 2016 LIPID GRP HDL CHOLESTEROL 48 mg/dL 2016 LIPID GRP Chol/HDL Ratio 5.69 ratio 2016 LIPID GRP NON-HDL Chol 225 mg/dL 2016 LIPID GRP LDL Cholesterol N/A Trig >400 2016 A1C HPLC 1677215 Hgb A1c 21294-5 7.3 % 2016 TSH 6040886 TSH 1.340 uIU/mL 2016 FREE T4 2656398 T4 Free 1.60 ng/dL 2016 MEAN GLUC 0044323 Calc Mean Gluc 163 mg/dL 2016 GFR CALC 1479423 GFR Non Afr Amr >60 mL/min 2016 GFR CALC 7996104 GFR Afr Amr >60 mL/min 2016 CBC 0923163 WBC 8.1 10e9/L 2016 CBC 7802913 RBC 4.41 10e12/L 2016 CBC 1040556 HEMOGLOBIN 13.2 g/dL 2016 CBC 8380586 HEMATOCRIT 39.6 % 2016 CBC 5934294 MCV 89.8 fL 2016 CBC 0227190 MCH 29.9 pg 2016 CBC 4848783 MCHC 33.3 g/dL 2016 CBC 8344302 PLATELET COUNT 298 10e9/L 2016 CBC 7742117 Mean Plt Volume 10.5 fL 2016 CBC 1926684 Neut Auto 61.3 % 2016 CBC 2346800 Lymph Auto 26.3 % 2016 CBC 9637496 [place] Auto 7.7 % 2016 CBC 4546726 RDW 13.6 % 2016 CBC 1442048 Eos Auto 4.2 % 2016 CBC 4551963 Baso Auto 0.5 % 2016 CBC 9177171 Neutrophil Abs 4.97 10e9/L 2016 CBC 5146834 Lymphocyte Abs 2.13 10e9/L 2016 CBC 4541640 Monocyte Abs 0.62 10e9/L 2016 CBC 0605759 Eosinophil Abs 0.34 10e9/L 2016 CBC 2893967 RDW-SD 44.1 fL 2016 CBC 9360193 Basophil Abs 0.04 10e9/L 2016 CHEM 14 2200042 AST 19 U/L 2016 CHEM 14 0451482 ALT 26 U/L 2016 CHEM 14 1719670 BUN 20 mg/dL 2016 CHEM 14 5331711 ALBUMIN 4.1 g/dL 2016 CHEM 14 7142544 CHLORIDE 99 mmol/L 2016 CHEM 14 4768107 Bili Total 0.3 mg/dL 2016 CHEM 14 8692586 ALK PHOS 55 U/L 2016 CHEM 14 8120538 SODIUM 135 mmol/L 2016 CHEM 14 5116521 CREATININE 0.87 mg/dL 2016 CHEM 14 8601587 CALCIUM 9.3 mg/dL 2016 CHEM 14 3795896 POTASSIUM 4.0 mmol/L 2016 CHEM 14 1335945 TOTAL PROTEIN 7.0 g/dL 2016 CHEM 14 6078963 GLUCOSE 149 mg/dL 2016 CHEM 14 7430499 Bicarbonate 26 mmol/L 2016 CHEM 14 9280024 AGAP 10 mmol/L 2016 Review of Systems [...] 1995 Ears/Nose/Throat oral cavity/pharynx/larynx Overall: no masses 06/04/2018 [...] 4: J0696 05/28/2017 THER/PROPH/DIAG INJ SC/IM CPT-4: 95676 05/19/2017 KETOROLAC TROMETHAMINE INJ CPT-4: J1885 05/19/2017 TRIAMCINOLONE ACET INJ NOS CPT-4: J3301 03/26/2016 TRIAMCINOLONE ACET INJ NOS CPT-4: J3301 06/07/2015 THER/PROPH/DIAG INJ SC/IM CPT-4: 04071 12/07/2014 TRIAMCINOLONE ACET INJ NOS CPT-4: J3301 12/07/2014 Vital Signs Date Vital 07/09/2018 Blood Pressure 1: 138/82 Code: 8480-6 BMI: 31.6 Code: 34759-3 Heart Rate 1: 82 bpm Height: 5'7" SpO2: 96% Weight: 202 lbs 06/04/2018 Blood Pressure 1: 144/76 Code: 8480-6 BMI: 32.0 Code: 54994-4 Heart Rate 1: 82 bpm Height: 5'7" SpO2: 96% Temperature: 36.5 (C) / 97.7 (F) Weight: 204 lbs 03/11/2018 Blood Pressure 1: 142/82 Code: 8480-6 BMI: 32.1 Code: 75068-6 Heart Rate 1: 87 bpm Height: 5'7" SpO2: 97% Weight: 205 lbs 02/17/2018 Blood Pressure 1: 132/76 Code: 8480-6 BMI: 33.5 Code: 56517-8 Heart Rate 1: 92 bpm Height: 5'7" SpO2: 98% Weight: 214 lbs 12/21/2017 Blood Pressure 1: 154/78 Code: 8480-6 BMI: 33.5 Code: 22899-7 Heart Rate 1: 93 bpm Height: 5'7" SpO2: 96% Weight: 214 lbs 11/30/2017 Blood Pressure 1: 148/88 Code: 8480-6 BMI: 33.5 Code: 96790-1 Heart Rate 1: 80 bpm Height: 5'7" SpO2: 97% Temperature: 36.9 (C) / 98.5 (F) Weight: 214 lbs 05/28/2017 Blood Pressure 1: 128/70 Code: 8480-6 BMI: 31.3 Code: 28492-6 Heart Rate 1: 103 bpm Height: 5'7" SpO2: 98% Temperature: 36.7 (C) / 98.1 (F) Weight: 200 lbs 05/19/2017 Blood Pressure 1: 150/72 Code: 8480-6 04/16/2017 Blood Pressure 1: 146/88 Code: 8480-6 BMI: 31.3 Code: 34302-4 Heart Rate 1: 96 bpm Height: 5'7" SpO2: 94% Temperature: 37.2 (C) / 99.0 (F) Weight: 200 lbs 02/10/2017 Blood Pressure 1: 132/72 Code: 8480-6 BMI: 31.3 Code: 43596-8 Heart Rate 1: 99 bpm Height: 5'7" SpO2: 97% Weight: 200 lbs 02/02/2017 Blood Pressure 1: 140/68 Code: 8480-6 BMI: 31.4 Code: 17899-5 Heart Rate 1: 82 bpm Height: 5'7" SpO2: 97% Weight: 200 lbs 8 oz 01/27/2017 Blood Pressure 1: 142/80 Code: 8480-6 BMI: 32.2 Code: 84903-1 Height: 5'7" Temperature: 37.2 (C) / 98.9 (F) Weight: 205 lbs 8 oz 11/07/2016 Blood Pressure 1: 148/82 Code: 8480-6 BMI: 32.7 Code: 31421-7 Heart Rate 1: 106 bpm Height: 5'7" SpO2: 97% Weight: 209 lbs 03/26/2016 Blood Pressure 1: 140/86 Code: 8480-6 Heart Rate 1: 90 bpm Height: SpO2: 97% Weight: 12/13/2015 Blood Pressure 1: 132/72 Code: 8480-6 BMI: 31.2 Code: 06545-9 Heart Rate 1: 84 bpm Height: 5'7" SpO2: 98% Weight: 199 lbs 08/15/2015 Blood Pressure 1: 138/88 Code: 8480-6 BMI: 32.1 Code: 34466-1 Heart Rate 1: 94 bpm Height: 5'7" SpO2: 97% Weight: 205 lbs 06/13/2015 Blood Pressure 1: 188/88 Code: 8480-6 Blood Pressure 1: 146/78 Code: 8480-6 BMI: 32.6 Code: 79009-5 Heart Rate 1: 97 bpm Height: 5'7" SpO2: 98% Weight: 208 lbs 06/07/2015 Blood Pressure 1: 128/82 Code: 8480-6 BMI: 32.4 Code: 52127-8 Heart Rate 1: 80 bpm Height: 5'7" SpO2: 99% Weight: 207 lbs 03/13/2015 Blood Pressure 1: 124/70 Code: 8480-6 BMI: 31.6 Code: 22659-6 Heart Rate 1: 103 bpm Height: 5'7" Respiratory Rate: 18 bpm SpO2: 97% Temperature: 36.6 (C) / 97.8 (F) Weight: 202 lbs 12/07/2014 Blood Pressure 1: 140/80 Code: 8480-6 BMI: 32.3 Code: 61435-2 Heart Rate 1: 97 bpm Height: 5'7" SpO2: 99% Weight: 206 lbs 09/07/2014 Blood Pressure 1: 132/78 Code: 8480-6 BMI: 31.2 Code: 24358-0 Heart Rate 1: 92 bpm Height: 5'7" [...] with shunt placement- 08-11-14- Dr Ruvalcaba in [place] did surgery headache Onset and Resolution ongoing [...] data Encounters Encounter Performer Location Codes Date ( 75932 EST. PATIENT, LEVEL IV Diagnosis: Type 2 diabetes mellitus with hyperglycemia[ICD10: E11.65] Diagnosis: Essential (primary) hypertension[ICD10: I10] Diagnosis: Acute recurrent maxillary sinusitis[ICD10: J01.01] Kaylan Dunham MD, [facility] CPT-4: 07327 07/09/2018 ([id number]) 18685 EST. PATIENT, LEVEL IV Diagnosis: Type 2 diabetes mellitus with hyperglycemia[ICD10: E11.65] Diagnosis: Mixed hyperlipidemia[ICD10: E78.2] Diagnosis: Other allergic rhinitis[ICD10: J30.89] Kaylan Dunham MD, [facility] CPT-4: 68429 06/04/2018 ([id number]) 67382 EST. PATIENT, LEVEL IV Diagnosis: Type 2 diabetes mellitus with hyperglycemia[ICD10: E11.65] Diagnosis: Mixed hyperlipidemia[ICD10: E78.2] Diagnosis: Essential (primary) hypertension[ICD10: I10] Kaylan Dunham MD, [facility] CPT-4: 25685 03/11/2018 [id number] EST. PATIENT, LEVEL III Diagnosis: Paresthesia of skin[ICD10: R20.2] Aditi Dunham MD, [facility] CPT-4: 15853 02/17/2018 97557 EST. PATIENT, LEVEL IV Diagnosis: Pain in right shoulder[ICD10: M25.511] Diagnosis: Rash and other nonspecific skin eruption[ICD10: R21] Aditi Dunham MD, [facility] CPT-4: 14657 12/21/2017 [id number] EST. PATIENT, LEVEL IV Diagnosis: Other acute sinusitis[ICD10: J01.80] Diagnosis: Other allergic rhinitis[ICD10: J30.89] Diagnosis: Localized edema[ICD10: R60.0] Aditi Dunham MD, [facility] CPT-4: 35601 11/30/2017 ([id number]) [id number] EST. PATIENT, LEVEL III Diagnosis: Acute recurrent maxillary sinusitis[ICD10: J01.01] Diagnosis: Cough[ICD10: R05] Tavia Dunham MD, [facility] CPT-4: 88257 05/28/2017 ([id number]) [id number] EST. PATIENT, LEVEL III Diagnosis: Acute laryngopharyngitis[ICD10: J06.0] Diagnosis: Cough[ICD10: R05] Tavia Dunham MD, [facility] CPT-4: 52883 04/16/2017 [id number] EST. PATIENT, LEVEL III Diagnosis: Left lower quadrant pain[ICD10: R10.32] Aditi Dunham MD, [facility] CPT-4: 20965 02/10/2017 ([id number]) 64789 EST. PATIENT, LEVEL III Diagnosis: Pain in thoracic spine[ICD10: M54.6] Diagnosis: Other muscle spasm[ICD10: M62.838] Tavia Dunham MD, [facility] CPT- 4: 28862 02/02/2017 ([id number]) 26577 EST. PATIENT, LEVEL IV Diagnosis: Other acute pancreatitis without necrosis or infection[ICD10: K85.80] Diagnosis: Epigastric pain[ICD10: R10.13] Diagnosis: Type 2 diabetes mellitus without complications[ICD10: E11.9] Tavia Dunham MD, [facility] CPT-4: 47105 01/27/2017 [id number] EST. PATIENT, LEVEL IV Diagnosis: Essential (primary) hypertension[ICD10: I10] Diagnosis: Type 1 diabetes mellitus without complications[ICD10: E10.9] Diagnosis: Other specified hypothyroidism[ICD10: E03.8] Diagnosis: Bilateral primary osteoarthritis of hip[ICD10: M16.0] Diagnosis: Actinic keratosis[ICD10: L57.0] Aditi Dunham MD, [facility] CPT-4: 55062 11/07/2016 29704 EST. PATIENT, LEVEL III Diagnosis: Other acute sinusitis[ICD10: J01.80] Diagnosis: Other allergic rhinitis[ICD10: J30.89] Diagnosis: Cough[ICD10: R05] Aditi Dunham MD, [facility] CPT-4: 98810 03/26/2016 ([id number]) 78241 EST. PATIENT, LEVEL IV Diagnosis: Essential (primary) hypertension[ICD10: I10] Diagnosis: Pure hyperglyceridemia[ICD10: E78.1] Tavia Dunham MD, [facility] CPT- 4: 54496 12/13/2015 ([id number]) 80393 EST. PATIENT, LEVEL III Diagnosis: Essential (primary) hypertension[ICD10: I10] Diagnosis: (Idiopathic) normal pressure hydrocephalus[ICD10: G91.2] Tavia Dunham MD, [facility] CPT-4: 27387 08/15/2015 27614 EST. PATIENT, LEVEL III Diagnosis: Other acute nonsuppurative otitis media, right ear[ICD10: H65.191] Diagnosis: Acute upper respiratory infection, unspecified[ICD10: J06.9] Aditi Dunham MD, [facility] CPT-4: 08788 06/13/2015 ([id number]) 72700 EST. PATIENT, LEVEL III Diagnosis: Acute recurrent maxillary sinusitis[ICD10: J01.01] Diagnosis: Allergic rhinitis due to pollen[ICD10: J30.1] Kaylan Dunham MD, [facility] CPT-4: 42942 06/07/2015 ([id number]) 46450 EST. PATIENT, LEVEL IV Diagnosis: (Idiopathic) normal pressure hydrocephalus[ICD10: G91.2] Diagnosis: Essential (primary) hypertension[ICD10: I10] Diagnosis: Dizziness and giddiness[ICD10: R42] Diagnosis: Nausea with vomiting, unspecified[ICD10: R11.2] Kaylan Dunham MD, [facility] CPT-4: 52009 03/13/2015 [id number] EST. PATIENT, LEVEL III Diagnosis: Acute sinusitis, unspecified[ICD10: J01.90] Diagnosis: Allergic rhinitis, unspecified[ICD10: J30.9] Tavia Dunham MD, [facility] CPT-4: 75731 12/07/2014 ([id number]) 42121 EST. PATIENT, LEVEL IV Diagnosis: ESSENTIAL HYPERTENSION[ICD9: 401.9] Diagnosis: DIABETES TYPE II[ICD9: 250.00] Diagnosis: NPH (normal pressure hydrocephalus)[ICD9: 331.5] Diagnosis: Hypertriglyceridemia[ICD9: 272.1] Kaylan Dunham MD, [facility] CPT- 4: 28882 09/07/2014 ([id number]) OFFICE/OUTPATIENT VISIT NEW Diagnosis: DIABETES TYPE II[ICD9: 250.00] Diagnosis: ESSENTIAL HYPERTENSION[ICD9: 401.9] Diagnosis: NPH (normal pressure hydrocephalus)[ICD9: 331.5] Diagnosis: Abnormal gait[ICD9: 781.2] Diagnosis: VITAMIN D DEFICIENCY[ICD9: 268.9] Tavia Dunham MD, [facility] CPT- 4: 91562 08/07/2014 Plan of Care Planned Activity Notes [...] show improvement. 07/09/2018 Appointment: Kaylan Melendez WPtel: [address] [place], [place] [phone] (30 min) Complex 07/09/2018 Patient Education: Patient [...] spray. 06/04/2018 Appointment: Kaylan Melendez WPtel: [address] [place], [place] [phone] (30 min) Complex 06/04/2018 Patient Education: Patient Medication Summary Completed 06/04/2018 Patient Education: Cholesterol Management Completed 06/04/2018 Patient Education: Patient Medication Summary Completed 05/25/2018 Care Plan: A1C HPLC [facility] : 75595-1 Pending 05/25/2018 Referral: Ammon Joiner Patient informed. [...] home. 03/11/2018 Appointment: [facility] [phone] [phone] (30 min) Complex 03/11/2018 Patient Education: Patient Medication Summary Completed 03/11/2018 Patient Education: Cholesterol Management Completed 03/11/2018 Patient Education: Hypertension Completed 03/11/2018 Care Plan: Referral Order SNOMED-CT : [id number] Pending 03/11/2018 Visit Plan: Parasthesia - ongoing for about a month - will send RX and refer pt for EMG - The pt is to use prn antiinflammatories to manage acute pain. The patient is to call the office if the pain is worsening or does not improve. 02/17/2018 Appointment: Ad[facility] Hamilton [facility]el[facility] [phone] [facility] [place] (15 min) Moderate 02/17/2018 Patient Education: Patient [...] warmth, discharge. 12/21/2017 Appointment: Aditi Hamilton WPtel: [facility]6 [facility] (15 min) Moderate 12/21/2017 Patient Education: Patient Medication Summary Completed 12/21/2017 Appointment: Tavia Dunham WPtel: [address] [place], [place] [phone] (15 min) Moderate 12/02/2017 Visit Plan: Sinusitis [...] edema. 11/30/2017 Appointment: Aditi Hamilton WPtel: [facility] (15 min) Moderate 11/30/2017 Patient Education: Patient Medication Summary Completed 11/30/2017 Care Plan: Comp Metabolic Pending 11/30/2017 Care Plan: Cbc With Differential Pending 11/30/2017 Care Plan: %Hba1C LOINC : 08136-0 Pending 11/30/2017 Care Plan: Lipid Pending 11/30/2017 Care Plan: Tsh Pending 11/30/2017 Care Plan: Free T4 Pending 11/30/2017 Appointment: Tavia Dunham WPtel: [facility] [facility] [place] (15 min) Moderate 11/26/2017 Appointment: Kaylan Melendez WPtel: [phone] [phone] [place] (30 min) Complex 08/13/2017 Appointment: Tavia Dunham WPtel: [phone] [facility] [place] (15 min) Moderate 08/04/2017 Appointment: Tavia Dunham WPtel: [facility] [facility] [place] (15 min) Moderate 07/20/2017 Visit [...] shot today 05/28/2017 Appointment: Tavia Dunham WPtel: [facility] [facility] [place] (30 min) Complex 05/28/2017 Patient Education: [...] patient's pharmacy. 04/16/2017 Appointment: Tavia Dunham WPtel: [facility] [facility] [place] (15 min) Moderate 04/16/2017 Patient Education: [...] or concerns. 02/10/2017 Appointment: Aditi Hamilton WPtel: [facility]5 [facility] (15 min) Moderate 02/10/2017 Patient Education: Patient Medication Summary Completed 02/10/2017 Patient Education: Obesity Completed 02/10/2017 Visit Plan: Pain in Thoracic spine with muscle spasm - ibuprofen 600mg three times daily x 3 days, rx for cyclobenzaprine. 02/02/2017 Appointment: Tavia Dunham WPtel: [facility] [facility] (15 min) Moderate 02/02/2017 Patient Education: [...] labs today. 01/27/2017 Appointment: Tavia Dunham WPtel: [facility] [facility] (15 min) Moderate 01/27/2017 Patient Education: Patient [...] pain symptoms. 11/07/2016 Appointment: Aditi Hamilton WPtel: [address] [place], [place] [address] (30 min) [facility] 11/07/2016 Patient Education: Patient Medication Summary Completed [...] allergy spray. 03/26/2016 Appointment: Ad[facility] Hamilton [facility]Ptel[facility] [phone] [facility] [place] (30 min) Complex 03/26/2016 Patient Education: Patient [...] medications. 12/13/2015 [facility]ment: [phone] [facility] (15 min) Moderate 12/13/2015 Patient Education: [...] supplement. 08/07/2014 Appointment: Tavia Dunham WPtel: [facility] [place] New Patient 08/07/2014 Patient [...]
[2018-10-08 10:50] LABS: ALBUMIN 4.5 GM/DL (3.2-4.5); BILIRUBIN,TOTAL 0.4 MG/DL (0.1-1.0); CREATININE SERUM 1.04 MG/DL (0.60-1.30); MAGNESIUM 2.3 MG/DL (1.8-2.4); POTASSIUM 4.3 MMOL/L (3.6-5.0); TOTAL PROTEIN 8.1 GM/DL (6.4-8.2)
[2018-10-08] MEDS ORDERED: NS IV 1000 ML 1,000 ML ONE (10:52)
--- OUTSIDE RECORDS SUMMARY | 2018-10-08 10:52 | XMS REPORT | CCD ---
Author Author [facility] Organization [facility] Address [address] [place] [address] Phone Care Team Providers Care Resource Director Name Role Phone PP Unavailable CCM Unavailable Summary Purpose Interface Exchange Insurance Providers Payer name Policy type / Coverage type Covered republican ID Effective Begin Date Effective End Date Blue Cross Blue [facility] Blue Cross/Blue [facility] [id number] Unknown Family history Mother Diagnosis Age At Onset Cancer Unknown Arthritis Unknown Depression Unknown Hyperlipidemia Unknown Diabetes mellitus Type 2 Unknown Social History Social History Element Codes Description Effective Dates Marital status Unknown Yinka 08/07/2014 Number of children Unknown 0 08/07/2014 Employment Unknown 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[employer] 08/07/[address]: 645879070 Never smoker 08/07/[address]: 670206230 Never drinks alcohol 08/07/2014 Allergies, Adverse Reactions, [...] 100 unit/mL (3 mL) subcutaneous pen RxNorm: 092146 35-40 Unit(s) SQ BID 07/09/2018 11/05/2018 Active INCREASE TO 40 UNITS Q AM AND 35 UNTIS Q HS doxycycline hyclate 100 mg tablet RxNorm: 5172256 1 Tablet(s) PO BID 07/09/2018 07/18/2018 Active Levemir FlexTouch U-100 Insulin 100 unit/mL (3 mL) subcutaneous pen RxNorm: 834275 35-40 Unit(s) SQ BID 07/09/2018 07/08/2018 Inactive INCREASE TO 40 UNITS Q AM AND 35 UNTIS Q HS venlafaxine ER 150 mg capsule,extended release 24 hr RxNorm: 809044 TAKE 1 CAPSULE BY MOUTH ONCE DAILY 06/08/2018 No Stop Date Active Levemir FlexTouch U-100 Insulin 100 unit/mL (3 mL) subcutaneous pen RxNorm: 211794 30 Unit(s) SQ BID 06/04/2018 07/08/2018 Inactive update RX -increase to 35 units BID if blood sugars over 200 Augmentin 875 mg-125 mg tablet RxNorm: 110467 1 Tablet(s) PO BID 06/04/2018 06/10/2018 Inactive hydrochlorothiazide 25 mg tablet RxNorm: 944477 TAKE 1 TABLET BY MOUTH ONCE DAILY 03/23/2018 No Stop Date Active Levemir FlexTouch U-100 Insulin 100 unit/mL (3 mL) subcutaneous pen RxNorm: 169672 30 Unit(s) SQ QAM and 25 Units SQ QPM 03/18/2018 06/03/2018 Inactive Levemir FlexTouch U-100 Insulin 100 unit/mL (3 mL) subcutaneous pen RxNorm: 782100 Unit(s) 03/11/2018 03/17/2018 Inactive 30 q am and 25 units q PM pravastatin 40 mg tablet RxNorm: 996681 1 Tablet(s) PO daily take with coenzyme q 10 daily 03/03/2018 02/25/2019 Active Levemir FlexTouch U-100 Insulin 100 unit/mL (3 mL) subcutaneous pen RxNorm: 949408 Unit(s) INJECT 25 UNITS SUBCUTANEOUSLY TWICE DAILY 03/03/2018 03/10/2018 Inactive pravastatin 10 mg tablet RxNorm: 398008 1 Tablet(s) PO daily take with coenzyme q 10 daily 02/26/2018 03/02/2018 Inactive prednisone 20 mg tablet RxNorm: 224256 2 Tablet(s) PO daily 02/17/2018 02/21/2018 Inactive levothyroxine 125 mcg tablet RxNorm: 596324 TAKE 1 TABLET BY MOUTH ONCE DAILY 01/11/2018 No Stop Date Active cyclobenzaprine 5 mg tablet RxNorm: 336233 1 Tablet(s) PO TID as needed 12/28/2017 01/11/2018 Inactive Zorvolex 35 mg capsule RxNorm: 7515025 1 Capsule(s) PO TID as needed 12/25/2017 05/23/2018 Inactive Levemir FlexTouch U-100 Insulin 100 unit/mL (3 mL) subcutaneous pen RxNorm: 790163 INJECT 2O UNITS SUBCUTANEOUSLY TWICE DAILY 12/21/2017 03/02/2018 Inactive cyclobenzaprine 5 mg tablet RxNorm: 260548 1 Tablet(s) PO TID as needed 12/21/2017 12/25/2017 Inactive doxycycline hyclate 100 mg capsule RxNorm: 6642859 1 Capsule(s) PO BID 12/21/2017 12/30/2017 Inactive venlafaxine ER 150 mg capsule,extended release 24 hr RxNorm: 949628 TAKE 1 CAPSULE BY MOUTH ONCE DAILY 12/10/2017 06/07/2018 Inactive Singulair 10 mg tablet RxNorm: 1 Tablet(s) PO daily 12/03/2017 12/02/2017 Inactive Singulair 10 mg tablet RxNorm: 352264 1 Tablet(s) PO daily 12/03/2017 01/01/2018 Inactive Zithromax Z-Kulwant 250 mg tablet RxNorm: 707033 1 Tablet(s) PO UD 12/03/2017 03/10/2018 Inactive z pack as directed Kenalog 40 mg/mL suspension for injection RxNorm: 3629357 1 Milliliter(s) Inj 11/30/2017 11/30/2017 Inactive prednisone 20 mg tablet RxNorm: 316020 2 Tablet(s) PO daily 11/30/2017 12/04/2017 Inactive Augmentin 875 mg-125 mg tablet RxNorm: 134124 1 Tablet(s) PO BID 11/27/2017 11/26/2017 Inactive Augmentin 875 mg-125 mg tablet RxNorm: 551253 1 Tablet(s) PO BID 11/27/2017 12/03/2017 Inactive Zorvolex 35 mg capsule RxNorm: 4027981 1 Capsule(s) PO TID as needed 11/09/2017 12/24/2017 Inactive hydrochlorothiazide 25 mg tablet RxNorm: 474742 1 Tablet(s) PO daily 10/22/2017 02/18/2018 Inactive enalapril maleate 5 mg tablet RxNorm: 810875 1 Tablet(s) PO daily TAKE ONE TABLET BY MOUTH ONCE DAILY 08/21/2017 02/16/2018 Inactive Levemir FlexTouch U-100 Insulin 100 unit/mL (3 mL) subcutaneous pen RxNorm: 328179 20 Unit(s) SQ BID 07/30/2017 12/20/2017 Inactive levothyroxine 125 mcg tablet RxNorm: 294962 TAKE ONE TABLET BY MOUTH ONCE DAILY 06/29/2017 01/10/2018 Inactive venlafaxine ER 150 mg capsule,extended release 24 hr RxNorm: 069651 1 Capsule(s) PO daily TAKE ONE CAPSULE BY MOUTH ONCE DAILY 06/08/2017 12/04/2017 Inactive prednisone 20 mg tablet RxNorm: 739367 1 Tablet(s) PO daily 06/02/2017 06/06/2017 Inactive prednisone 20 mg tablet RxNorm: 341468 1 Tablet(s) PO daily 06/01/2017 06/05/2017 Inactive Kenalog 40 mg/mL suspension for injection RxNorm: 4157272 1 Milliliter(s) Inj 05/28/2017 05/28/2017 Inactive cefdinir 300 mg capsule RxNorm: 560561 1 Capsule(s) PO BID 05/28/2017 06/03/2017 Inactive ceftriaxone 500 mg solution for injection RxNorm: 5888124 1 Inj 05/28/2017 05/28/2017 Inactive prednisone 20 mg tablet RxNorm: 422164 1 Tablet(s) PO daily 05/28/2017 05/31/2017 Inactive Keflex 500 mg capsule RxNorm: 989803 1 Capsule(s) PO TID 05/26/2017 06/01/2017 Inactive Keflex 500 mg capsule RxNorm: 155899 1 Capsule(s) PO TID 05/26/2017 05/25/2017 Inactive hydrocodone 10 mg-chlorpheniramine 8 mg/5 mL oral susp extend.rel 12hr RxNorm: 2877379 5-10 Milliliter(s) PO TID as needed 04/16/2017 No Stop Date Active Tussionex Pennkinetic ER 10 mg-8 mg/5 mL suspension,extended release RxNorm: 5229634 5 Milliliter(s) PO BID 04/16/2017 04/27/2017 Inactive Zithromax Z-Kulwant 250 mg tablet RxNorm: 625172 1 Tablet(s) PO UD 03/25/2017 04/15/2017 Inactive z pack as directed enalapril maleate 5 mg tablet RxNorm: 485222 TAKE ONE TABLET BY MOUTH ONCE DAILY 02/26/2017 08/20/2017 Inactive Levemir FlexTouch 100 unit/mL (3 mL) subcutaneous insulin pen RxNorm: 438681 20 Unit(s) SQ BID 02/10/2017 07/11/2017 Inactive Zorvolex 35 mg capsule RxNorm: 9503870 1 Capsule(s) PO TID as needed 02/10/2017 11/08/2017 Inactive valacyclovir 1 gram tablet RxNorm: 054951 1 Tablet(s) PO TID 02/10/2017 02/16/2017 Inactive Levemir FlexTouch 100 unit/mL (3 mL) subcutaneous insulin pen RxNorm: 017124 20 Unit(s) SQ BID 02/04/2017 02/09/2017 Inactive cyclobenzaprine 5 mg tablet RxNorm: 916381 1 Tablet(s) PO qhs x 3 nights and TID as needed muscle spasms 02/02/2017 No Stop Date Active levothyroxine 125 mcg tablet RxNorm: 403827 TAKE ONE TABLET BY MOUTH ONCE DAILY 12/08/2016 06/05/2017 Inactive venlafaxine ER 150 mg capsule,extended release 24 hr RxNorm: 511144 TAKE ONE CAPSULE BY MOUTH ONCE DAILY 12/01/2016 05/29/2017 Inactive Zorvolex 35 mg capsule RxNorm: 3107222 1 Capsule(s) PO TID as needed do not take meloxicam at the same time 11/07/2016 No Stop Date Active enalapril maleate 5 mg tablet RxNorm: 874418 TAKE ONE TABLET BY MOUTH ONCE DAILY 10/31/2016 12/29/2016 Inactive meloxicam 15 mg tablet RxNorm: 076691 TAKE ONE TABLET BY MOUTH ONCE DAILY 10/30/2016 03/10/2018 Inactive meloxicam 15 mg tablet RxNorm: 226968 TAKE ONE TABLET BY MOUTH ONCE DAILY 10/24/2016 10/29/2016 Inactive enalapril maleate 5 mg tablet RxNorm: 461675 TAKE ONE TABLET BY MOUTH ONCE DAILY 10/24/2016 10/30/2016 Inactive venlafaxine ER 150 mg capsule,extended release 24 hr RxNorm: 131195 TAKE ONE CAPSULE BY MOUTH ONCE DAILY 06/16/2016 11/12/2016 Inactive meloxicam 15 mg tablet RxNorm: 053404 TAKE ONE TABLET BY MOUTH ONCE DAILY 06/09/2016 10/06/2016 Inactive enalapril maleate 5 mg tablet RxNorm: 002965 TAKE ONE TABLET BY MOUTH ONCE DAILY 06/02/2016 09/29/2016 Inactive Zithromax Z-Kulwant 250 mg tablet RxNorm: 649370 1 Tablet(s) PO UD 05/21/2016 06/15/2016 Inactive levothyroxine 125 mcg tablet RxNorm: 293607 Tablet(s) TAKE ONE TABLET BY MOUTH ONCE DAILY 04/15/2016 10/11/2016 Inactive Levaquin 500 mg tablet RxNorm: 712231 1 Tablet(s) PO daily 04/03/2016 04/09/2016 Inactive Levaquin 500 mg tablet RxNorm: 408743 1 Tablet(s) PO daily 04/03/2016 04/02/2016 Inactive prednisone 20 mg tablet RxNorm: 596652 2 Tablet(s) PO daily 03/28/2016 04/01/2016 Inactive Zithromax Z-Kulwant 250 mg tablet RxNorm: 260313 1 Tablet(s) PO UD 03/26/2016 03/30/2016 Inactive zpack Kenalog 40 mg/mL suspension for injection RxNorm: 7418560 Milliliter(s) Inj 03/26/2016 03/26/2016 Inactive Zofran ODT 4 mg disintegrating tablet RxNorm: 008862 DISSOLVE ONE TABLET IN MOUTH EVERY 6 HOURS NEEDED 02/22/2016 02/29/2016 Inactive venlafaxine ER 150 mg capsule,extended release 24 hr RxNorm: 453584 TAKE ONE CAPSULE BY MOUTH ONCE DAILY 02/18/2016 06/15/2016 Inactive meloxicam 15 mg tablet RxNorm: 569873 TAKE ONE TABLET BY MOUTH ONCE DAILY 02/04/2016 06/02/2016 Inactive aspirin 81 mg chewable tablet RxNorm: 718680 1 Tablet(s) PO daily 12/13/2015 12/06/2016 Inactive biotin 2,500 mcg tablet RxNorm: 757743 1 Tablet(s) PO daily 12/13/2015 09/07/2016 Inactive hydrochlorothiazide 25 mg tablet RxNorm: 977099 1 Tablet(s) PO daily 12/13/2015 04/10/2016 Inactive enalapril maleate 5 mg tablet RxNorm: 658917 TAKE ONE TABLET BY MOUTH ONCE DAILY 11/22/2015 05/19/2016 Inactive venlafaxine ER 150 mg capsule,extended release 24 hr RxNorm: 591326 TAKE ONE CAPSULE BY MOUTH ONCE DAILY 11/14/2015 02/11/2016 Inactive levothyroxine 125 mcg tablet RxNorm: 234074 Tablet(s) TAKE ONE TABLET BY MOUTH ONCE DAILY 11/06/2015 04/14/2016 Inactive levothyroxine 125 mcg tablet RxNorm: 661529 Tablet(s) TAKE ONE TABLET BY MOUTH ONCE DAILY 08/06/2015 11/03/2015 Inactive meclizine 25 mg tablet RxNorm: 112879 1/2-1 Tablet(s) PO Q6 as needed 07/16/2015 No Stop Date Active Flonase Allergy Relief 50 mcg/actuation nasal spray,suspension RxNorm: 1 Mcdonald NASAL daily 06/13/2015 No Stop Date Active prednisone 20 mg tablet RxNorm: 119250 2 Tablet(s) PO daily 06/13/2015 06/17/2015 Inactive Augmentin 875 mg-125 mg tablet RxNorm: 733497 1 Tablet(s) PO BID 06/13/2015 06/19/2015 Inactive Zithromax Z-Kulwant 250 mg tablet RxNorm: 350682 1 Tablet(s) PO UD 06/07/2015 06/11/2015 Inactive zpack Kenalog 40 mg/mL suspension for injection RxNorm: 7720780 Milliliter(s) Inj 06/07/2015 06/07/2015 Inactive venlafaxine ER 150 mg capsule,extended release 24 hr RxNorm: 724434 TAKE ONE CAPSULE BY MOUTH ONCE DAILY 05/14/2015 11/09/2015 Inactive Augmentin 500 mg-125 mg tablet RxNorm: 158578 1 Tablet(s) PO TID 04/25/2015 05/04/2015 Inactive Augmentin 500 mg-125 mg tablet RxNorm: 302212 1 Tablet(s) PO TID 04/25/2015 04/24/2015 Inactive pravastatin 10 mg tablet RxNorm: 410737 1 Tablet(s) PO daily take with coenzyme q 10 daily 03/21/2015 03/20/2015 Inactive DC crestor pravastatin 10 mg tablet RxNorm: 925786 1 Tablet(s) PO daily take with coenzyme q 10 daily 03/21/2015 07/18/2015 Inactive DC crestor Zofran ODT 4 mg disintegrating tablet RxNorm: 569852 1 Tablet(s) PO Q6 PRN 03/13/2015 02/21/2016 Inactive levothyroxine 125 mcg tablet RxNorm: 783977 TAKE ONE TABLET BY MOUTH ONCE DAILY 02/13/2015 08/05/2015 Inactive meloxicam 15 mg tablet RxNorm: 300690 1 Tablet(s) PO daily 01/28/2015 01/22/2016 Inactive Zofran 4 mg tablet RxNorm: 797965 1 Tablet(s) PO Q6-8H as needed nausea 01/24/2015 No Stop Date Active Trulicity 1.5 mg/0.5 mL subcutaneous pen injector RxNorm: 4676555 0.75mg Milliliter(s) SQ QW 01/10/2015 03/10/2018 Inactive venlafaxine ER 150 mg capsule,extended release 24 hr RxNorm: 664611 1 Capsule(s) PO daily 01/10/2015 05/09/2015 Inactive enalapril maleate 5 mg tablet RxNorm: 263968 1 Tablet(s) PO daily 01/04/2015 07/02/2015 Inactive amoxicillin 500 mg tablet RxNorm: 517343 1 Tablet(s) PO BID 12/07/2014 12/06/2014 Inactive Probiotic & Acidophilus 300 million cell-250 mg capsule RxNorm: 1 Capsule(s) PO BID 12/07/2014 12/16/2014 Inactive amoxicillin 500 mg tablet RxNorm: 587461 1 Tablet(s) PO BID 12/07/2014 12/16/2014 Inactive Kenalog 40 mg/mL suspension for injection RxNorm: 9818191 1 Milliliter(s) Inj 12/07/2014 12/07/2014 Inactive meloxicam 15 mg tablet RxNorm: 630627 1 Tablet(s) PO daily 10/24/2014 10/23/2014 Inactive meloxicam 15 mg tablet RxNorm: 272404 1 Tablet(s) PO daily 10/24/2014 01/27/2015 Inactive azithromycin 500 mg tablet RxNorm: 317478 1 Tablet(s) PO daily 10/11/2014 10/15/2014 Inactive azithromycin 500 mg tablet RxNorm: 838237 1 Tablet(s) PO daily 10/11/2014 10/10/2014 Inactive levothyroxine 125 mcg tablet RxNorm: 355500 1 Tablet(s) PO daily 10/06/2014 02/02/2015 Inactive enalapril maleate 5 mg tablet RxNorm: 425076 1 Tablet(s) PO daily 08/29/2014 12/26/2014 Inactive enalapril maleate 5 mg tablet RxNorm: 137596 1 Tablet(s) PO daily 08/25/2014 08/28/2014 Inactive Medroxy oral RxNorm: 6259868 oral No Start Date Active Vitamin D3 5,000 unit tablet RxNorm: 578636 1 Tablet(s) PO daily No Start Date Active fluconazole 200 mg tablet RxNorm: 405958 Tablet(s) PO No Start Date Active estradiol 2 mg tablet RxNorm: 296919 1 Tablet(s) PO daily No Start Date Active fenofibrate nanocrystallized 145 mg tablet RxNorm: 204127 1 Tablet(s) PO daily No Start Date Active hydrocodone 5 mg-acetaminophen 325 mg tablet RxNorm: 304455 1-2 Tablet(s) PO Q4-6H as needed No Start Date Active enalapril maleate 5 mg tablet RxNorm: 570115 1 Tablet(s) PO daily No Start Date 08/24/2014 Inactive glimepiride 4 mg tablet RxNorm: 112271 1 Tablet(s) PO daily No Start Date 01/26/2017 Inactive meclizine 25 mg tablet RxNorm: 745919 1/2-1 Tablet(s) PO Q6 as needed No Start Date 07/15/2015 Inactive Trulicity 0.75 mg/0.5 mL subcutaneous pen injector RxNorm: 4730957 0.75mg Milliliter(s) SQ QW No Start Date 01/09/2015 Inactive metformin 1,000 mg tablet RxNorm: 542851 Tablet(s) PO BID No Start Date 01/26/2017 Inactive venlafaxine ER 150 mg capsule,extended release 24 hr RxNorm: 358197 1 Capsule(s) PO daily No Start Date 01/09/2015 Inactive meloxicam 15 mg tablet RxNorm: 432229 1 Tablet(s) PO daily No Start Date 10/23/2014 Inactive levothyroxine 125 mcg tablet RxNorm: 321952 1 Tablet(s) PO daily No Start Date 10/05/2014 Inactive Levemir FlexTouch 100 unit/mL (3 mL) subcutaneous insulin pen RxNorm: 732797 15 Unit(s) SQ daily No Start Date 02/03/2017 Inactive Zithromax Z-Kulwant 250 mg tablet RxNorm: 679108 1 Tablet(s) PO UD No Start Date 05/20/2016 Inactive Fish Oil 1,000 mg capsule RxNorm: 1 Capsule(s) PO BID No Start Date 11/04/2016 Inactive Zofran 4 mg tablet RxNorm: 757132 1 Tablet(s) PO Q6-8H as needed nausea No Start Date 01/23/2015 Inactive Crestor 10 mg tablet RxNorm: 133407 1 Tablet(s) PO daily No Start Date 03/20/2015 Inactive Medication Administered Medication Codes Instructions Start Date Status Kenalog 40 mg/mL suspension for injection RxNorm: 8746912 1Milliliter 11/30/2017 No longer Active Kenalog 40 mg/mL suspension for injection RxNorm: 1129224 1Milliliter 05/28/2017 No longer Active ceftriaxone 500 mg solution for injection RxNorm: 0455489 1 05/28/2017 No longer Active Kenalog 40 mg/mL suspension for injection RxNorm: 7544737 Milliliter 03/26/2016 No longer Active Kenalog 40 mg/mL suspension for injection RxNorm: 9634893 Milliliter 06/07/2015 No longer Active Kenalog 40 mg/mL suspension for injection RxNorm: 3106372 1Milliliter 12/07/2014 No longer Active Immunizations Vaccine [...] Item Item Code Result Date CHEM 14 [id number] AST TNP:Lab Request 01/27/2017 CHEM 14 [id number] ALT TNP:Lab Request 01/27/2017 CHEM 14 [id number] BUN TNP:Lab Request 01/27/2017 CHEM 14 [id number] ALBUMIN TNP:Lab Request 01/27/2017 CHEM 14 [id number] CHLORIDE TNP:Lab Request 01/27/2017 CHEM 14 [id number] Bili Total TNP:Lab Request 01/27/2017 CHEM 14 [id number] ALK PHOS TNP:Lab Request 01/27/2017 CHEM 14 [id number] SODIUM TNP:Lab Request 01/27/2017 CHEM 14 [id number] CREATININE TNP:Lab Request 01/27/2017 CHEM 14 [id number] CALCIUM TNP:Lab Request 01/27/2017 CHEM 14 [id number] POTASSIUM TNP:Lab Request 01/27/2017 CHEM 14 [id number] TOTAL PROTEIN TNP:Lab Request 01/27/2017 CHEM 14 [id number] GLUCOSE TNP:Lab Request 01/27/2017 CHEM 14 [id number] Bicarbonate TNP:Lab Request 01/27/2017 CHEM 14 [id number] AGAP TNP:Lab Request 01/27/2017 AMYLASE [id number] Amylase Lvl TNP:Lab Request 01/27/2017 LIPID GRP CHOLESTEROL 273 mg/dL 2016 LIPID GRP Triglyceride 583 mg/dL 2016 LIPID GRP HDL CHOLESTEROL 48 mg/dL 2016 LIPID GRP Chol/HDL Ratio 5.69 ratio 2016 LIPID GRP NON-HDL Chol 225 mg/dL 2016 LIPID GRP LDL Cholesterol N/A Trig >400 2016 A1C HPLC 1704547 Hgb A1c 82326-1 7.3 % 2016 TSH 3123957 TSH 1.340 uIU/mL 2016 FREE T4 9458878 T4 Free 1.60 ng/dL 2016 MEAN GLUC 2616997 Calc Mean Gluc 163 mg/dL 2016 GFR CALC 2083078 GFR Non Afr Amr >60 mL/min 2016 GFR CALC 9130980 GFR Afr Amr >60 mL/min 2016 CBC 8591645 WBC 8.1 10e9/L 2016 CBC 5022428 RBC 4.41 10e12/L 2016 CBC 4601086 HEMOGLOBIN 13.2 g/dL 2016 CBC 0003654 HEMATOCRIT 39.6 % 2016 CBC 9565782 MCV 89.8 fL 2016 CBC 8576138 MCH 29.9 pg 2016 CBC 6725534 MCHC 33.3 g/dL 2016 CBC 4841762 PLATELET COUNT 298 10e9/L 2016 CBC 5935574 Mean Plt Volume 10.5 fL 2016 CBC 4514600 Neut Auto 61.3 % 2016 CBC 2582898 Lymph Auto 26.3 % 2016 CBC 2203409 [place] Auto 7.7 % 2016 CBC 0022761 RDW 13.6 % 2016 CBC 8624105 Eos Auto 4.2 % 2016 CBC 2011625 Baso Auto 0.5 % 2016 CBC 5981800 Neutrophil Abs 4.97 10e9/L 2016 CBC 8504536 Lymphocyte Abs 2.13 10e9/L 2016 CBC 5871724 Monocyte Abs 0.62 10e9/L 2016 CBC 4492091 Eosinophil Abs 0.34 10e9/L 2016 CBC 2752184 RDW-SD 44.1 fL 2016 CBC 9633862 Basophil Abs 0.04 10e9/L 2016 CHEM 14 4787705 AST 19 U/L 2016 CHEM 14 4900408 ALT 26 U/L 2016 CHEM 14 9002793 BUN 20 mg/dL 2016 CHEM 14 7786433 ALBUMIN 4.1 g/dL 2016 CHEM 14 0299997 CHLORIDE 99 mmol/L 2016 CHEM 14 3387200 Bili Total 0.3 mg/dL 2016 CHEM 14 4003820 ALK PHOS 55 U/L 2016 CHEM 14 3408010 SODIUM 135 mmol/L 2016 CHEM 14 8749679 CREATININE 0.87 mg/dL 2016 CHEM 14 8671609 CALCIUM 9.3 mg/dL 2016 CHEM 14 3560856 POTASSIUM 4.0 mmol/L 2016 CHEM 14 2821309 TOTAL PROTEIN 7.0 g/dL 2016 CHEM 14 0462985 GLUCOSE 149 mg/dL 2016 CHEM 14 8511364 Bicarbonate 26 mmol/L 2016 CHEM 14 4093012 AGAP 10 mmol/L 2016 Review of Systems [...] accomodation 07/09/2018 None Full Exam - General 1995 Ears/Nose/Throat otoscopic exam Overall: external auditory canals clear 07/09/2018 None Full Exam - General 1995 Ears/Nose/Throat otoscopic exam Tympanic membrane: bulging 07/09/2018 None Full Exam - General 1995 Ears/Nose/Throat lips/teeth/gingiva Overall: benign lips 07/09/2018 None Full Exam - General 1995 [...] 4: J0696 05/28/2017 THER/PROPH/DIAG INJ SC/IM CPT-4: 78784 05/19/2017 KETOROLAC TROMETHAMINE INJ CPT-4: J1885 05/19/2017 TRIAMCINOLONE ACET INJ NOS CPT-4: J3301 03/26/2016 TRIAMCINOLONE ACET INJ NOS CPT-4: J3301 06/07/2015 THER/PROPH/DIAG INJ SC/IM CPT-4: 41051 12/07/2014 TRIAMCINOLONE ACET INJ NOS CPT-4: J3301 12/07/2014 Vital Signs Date Vital 07/09/2018 Blood Pressure 1: 138/82 Code: 8480-6 BMI: 31.6 Code: 45250-7 Heart Rate 1: 82 bpm Height: 5'7" SpO2: 96% Weight: 202 lbs 06/04/2018 Blood Pressure 1: 144/76 Code: 8480-6 BMI: 32.0 Code: 99085-0 Heart Rate 1: 82 bpm Height: 5'7" SpO2: 96% Temperature: 36.5 (C) / 97.7 (F) Weight: 204 lbs 03/11/2018 Blood Pressure 1: 142/82 Code: 8480-6 BMI: 32.1 Code: 63531-2 Heart Rate 1: 87 bpm Height: 5'7" SpO2: 97% Weight: 205 lbs 02/17/2018 Blood Pressure 1: 132/76 Code: 8480-6 BMI: 33.5 Code: 83041-2 Heart Rate 1: 92 bpm Height: 5'7" SpO2: 98% Weight: 214 lbs 12/21/2017 Blood Pressure 1: 154/78 Code: 8480-6 BMI: 33.5 Code: 56433-4 Heart Rate 1: 93 bpm Height: 5'7" SpO2: 96% Weight: 214 lbs 11/30/2017 Blood Pressure 1: 148/88 Code: 8480-6 BMI: 33.5 Code: 87725-4 Heart Rate 1: 80 bpm Height: 5'7" SpO2: 97% Temperature: 36.9 (C) / 98.5 (F) Weight: 214 lbs 05/28/2017 Blood Pressure 1: 128/70 Code: 8480-6 BMI: 31.3 Code: 26639-1 Heart Rate 1: 103 bpm Height: 5'7" SpO2: 98% Temperature: 36.7 (C) / 98.1 (F) Weight: 200 lbs 05/19/2017 Blood Pressure 1: 150/72 Code: 8480-6 04/16/2017 Blood Pressure 1: 146/88 Code: 8480-6 BMI: 31.3 Code: 90764-8 Heart Rate 1: 96 bpm Height: 5'7" SpO2: 94% Temperature: 37.2 (C) / 99.0 (F) Weight: 200 lbs 02/10/2017 Blood Pressure 1: 132/72 Code: 8480-6 BMI: 31.3 Code: 81370-8 Heart Rate 1: 99 bpm Height: 5'7" SpO2: 97% Weight: 200 lbs 02/02/2017 Blood Pressure 1: 140/68 Code: 8480-6 BMI: 31.4 Code: 97751-4 Heart Rate 1: 82 bpm Height: 5'7" SpO2: 97% Weight: 200 lbs 8 oz 01/27/2017 Blood Pressure 1: 142/80 Code: 8480-6 BMI: 32.2 Code: 31680-7 Height: 5'7" Temperature: 37.2 (C) / 98.9 (F) Weight: 205 lbs 8 oz 11/07/2016 Blood Pressure 1: 148/82 Code: 8480-6 BMI: 32.7 Code: 76073-1 Heart Rate 1: 106 bpm Height: 5'7" SpO2: 97% Weight: 209 lbs 03/26/2016 Blood Pressure 1: 140/86 Code: 8480-6 Heart Rate 1: 90 bpm Height: SpO2: 97% Weight: 12/13/2015 Blood Pressure 1: 132/72 Code: 8480-6 BMI: 31.2 Code: 41224-2 Heart Rate 1: 84 bpm Height: 5'7" SpO2: 98% Weight: 199 lbs 08/15/2015 Blood Pressure 1: 138/88 Code: 8480-6 BMI: 32.1 Code: 04332-5 Heart Rate 1: 94 bpm Height: 5'7" SpO2: 97% Weight: 205 lbs 06/13/2015 Blood Pressure 1: 188/88 Code: 8480-6 Blood Pressure 1: 146/78 Code: 8480-6 BMI: 32.6 Code: 80246-7 Heart Rate 1: 97 bpm Height: 5'7" SpO2: 98% Weight: 208 lbs 06/07/2015 Blood Pressure 1: 128/82 Code: 8480-6 BMI: 32.4 Code: 15806-0 Heart Rate 1: 80 bpm Height: 5'7" SpO2: 99% Weight: 207 lbs 03/13/2015 Blood Pressure 1: 124/70 Code: 8480-6 BMI: 31.6 Code: 48803-5 Heart Rate 1: 103 bpm Height: 5'7" Respiratory Rate: 18 bpm SpO2: 97% Temperature: 36.6 (C) / 97.8 (F) Weight: 202 lbs 12/07/2014 Blood Pressure 1: 140/80 Code: 8480-6 BMI: 32.3 Code: 91111-4 Heart Rate 1: 97 bpm Height: 5'7" SpO2: 99% Weight: 206 lbs 09/07/2014 Blood Pressure 1: 132/78 Code: 8480-6 BMI: 31.2 Code: 52690-7 Heart Rate 1: 92 bpm Height: 5'7" [...] with shunt placement- 08-11-14- Dr Ruvalcaba in [place] did surgery headache Onset and Resolution ongoing [...] data Encounters Encounter Performer Location Codes Date () 79668 EST. PATIENT, LEVEL IV Diagnosis: Type 2 diabetes mellitus with hyperglycemia[ICD10: E11.65] Diagnosis: Essential (primary) hypertension[ICD10: I10] Diagnosis: Acute recurrent maxillary sinusitis[ICD10: J01.01] Kaylan Dunham MD, [facility] CPT-4: 10542 07/09/2018 ([id number]) [id number] EST. PATIENT, LEVEL IV Diagnosis: Type 2 diabetes mellitus with hyperglycemia[ICD10: E11.65] Diagnosis: Mixed hyperlipidemia[ICD10: E78.2] Diagnosis: Other allergic rhinitis[ICD10: J30.89] Kaylan Dunham MD, [facility] CPT-4: 81417 06/04/2018 ([id number]) 42142 EST. PATIENT, LEVEL IV Diagnosis: Type 2 diabetes mellitus with hyperglycemia[ICD10: E11.65] Diagnosis: Mixed hyperlipidemia[ICD10: E78.2] Diagnosis: Essential (primary) hypertension[ICD10: I10] Kaylan Dunham MD, [facility] CPT-4: 75576 03/11/2018 [id number] EST. PATIENT, LEVEL III Diagnosis: Paresthesia of skin[ICD10: R20.2] Aditi Dunham MD, [facility] CPT-4: 49132 02/17/2018 [id number] EST. PATIENT, LEVEL IV Diagnosis: Pain in right shoulder[ICD10: M25.511] Diagnosis: Rash and other nonspecific skin eruption[ICD10: R21] Aditi Dunham MD, [facility] CPT-4: 18142 12/21/2017 [id number] EST. PATIENT, LEVEL IV Diagnosis: Other acute sinusitis[ICD10: J01.80] Diagnosis: Other allergic rhinitis[ICD10: J30.89] Diagnosis: Localized edema[ICD10: R60.0] Aditi Dunham MD, [facility] CPT-4: 58628 11/30/2017 ([id number]) 71989 EST. PATIENT, LEVEL III Diagnosis: Acute recurrent maxillary sinusitis[ICD10: J01.01] Diagnosis: Cough[ICD10: R05] Tavia Dunham MD, [facility] CPT-4: 44618 05/28/2017 ([id number]) 03366 EST. PATIENT, LEVEL III Diagnosis: Acute laryngopharyngitis[ICD10: J06.0] Diagnosis: Cough[ICD10: R05] Tavia Dunham MD, [facility] CPT-4: 41445 04/16/2017 03042 EST. PATIENT, LEVEL III Diagnosis: Left lower quadrant pain[ICD10: R10.32] Aditi Dunham MD, [facility] CPT-4: 48500 02/10/2017 ([id number]) 33163 EST. PATIENT, LEVEL III Diagnosis: Pain in thoracic spine[ICD10: M54.6] Diagnosis: Other muscle spasm[ICD10: M62.838] Tavia Dunham MD, [facility] CPT- 4: 15587 02/02/2017 ([id number]) 47038 EST. PATIENT, LEVEL IV Diagnosis: Other acute pancreatitis without necrosis or infection[ICD10: K85.80] Diagnosis: Epigastric pain[ICD10: R10.13] Diagnosis: Type 2 diabetes mellitus without complications[ICD10: E11.9] Tavia Dunham MD, [facility] CPT-4: 74443 01/27/2017 [id number] EST. PATIENT, LEVEL IV Diagnosis: Essential (primary) hypertension[ICD10: I10] Diagnosis: Type 1 diabetes mellitus without complications[ICD10: E10.9] Diagnosis: Other specified hypothyroidism[ICD10: E03.8] Diagnosis: Bilateral primary osteoarthritis of hip[ICD10: M16.0] Diagnosis: Actinic keratosis[ICD10: L57.0] Aditi Dunham MD, [facility] CPT-4: 18797 11/07/2016 49491 EST. PATIENT, LEVEL III Diagnosis: Other acute sinusitis[ICD10: J01.80] Diagnosis: Other allergic rhinitis[ICD10: J30.89] Diagnosis: Cough[ICD10: R05] Aditi Dunham MD, [facility] CPT-4: 60527 03/26/2016 ([id number]) 29704 EST. PATIENT, LEVEL IV Diagnosis: Essential (primary) hypertension[ICD10: I10] Diagnosis: Pure hyperglyceridemia[ICD10: E78.1] Tavia Dunham MD, [facility] CPT- 4: 22942 12/13/2015 ([id number]) 76540 EST. PATIENT, LEVEL III Diagnosis: Essential (primary) hypertension[ICD10: I10] Diagnosis: (Idiopathic) normal pressure hydrocephalus[ICD10: G91.2] Tavia Dunham MD, [facility] CPT-4: 49281 08/15/2015 22254 EST. PATIENT, LEVEL III Diagnosis: Other acute nonsuppurative otitis media, right ear[ICD10: H65.191] Diagnosis: Acute upper respiratory infection, unspecified[ICD10: J06.9] Aditi Dunham MD, [facility] CPT-4: 23764 06/13/2015 ([id number]) 05272 EST. PATIENT, LEVEL III Diagnosis: Acute recurrent maxillary sinusitis[ICD10: J01.01] Diagnosis: Allergic rhinitis due to pollen[ICD10: J30.1] Kaylan Dunham MD, [facility] CPT-4: 55795 06/07/2015 ([id number]) 37366 EST. PATIENT, LEVEL IV Diagnosis: (Idiopathic) normal pressure hydrocephalus[ICD10: G91.2] Diagnosis: Essential (primary) hypertension[ICD10: I10] Diagnosis: Dizziness and giddiness[ICD10: R42] Diagnosis: Nausea with vomiting, unspecified[ICD10: R11.2] Kaylan Dunham MD, [facility] CPT-4: 21785 03/13/2015 31857 EST. PATIENT, LEVEL III Diagnosis: Acute sinusitis, unspecified[ICD10: J01.90] Diagnosis: Allergic rhinitis, unspecified[ICD10: J30.9] Tavia Dunham MD, [facility] CPT-4: 00246 12/07/2014 ([id number]) 17294 EST. PATIENT, LEVEL IV Diagnosis: ESSENTIAL HYPERTENSION[ICD9: 401.9] Diagnosis: DIABETES TYPE II[ICD9: 250.00] Diagnosis: NPH (normal pressure hydrocephalus)[ICD9: 331.5] Diagnosis: Hypertriglyceridemia[ICD9: 272.1] Kaylan Dunham MD, [facility] CPT- 4: 70508 09/07/2014 ([id number]) OFFICE/OUTPATIENT VISIT NEW Diagnosis: DIABETES TYPE II[ICD9: 250.00] Diagnosis: ESSENTIAL HYPERTENSION[ICD9: 401.9] Diagnosis: NPH (normal pressure hydrocephalus)[ICD9: 331.5] Diagnosis: Abnormal gait[ICD9: 781.2] Diagnosis: VITAMIN D DEFICIENCY[ICD9: 268.9] Tavia Dunham MD, [facility] CPT- 4: 00647 08/07/2014 Plan of Care Planned Activity Notes [...] if symptoms do not show improvement. 07/09/2018 Patient Education: Patient Medication Summary Completed [...] allergy spray. 06/04/2018 Appointment: Kaylan Melendez WPtel: [address] [place], [place] [phone] (30 min) [facility] 06/04/2018 Patient Education: Patient Medication Summary Completed 06/04/2018 Patient Education: Cholesterol Management Completed 06/04/2018 Patient Education: Patient Medication Summary Completed 05/25/2018 Care Plan: A1C HPLC LOINC : 48170-9 Pending 05/25/2018 Referral: Ammon Joiner Patient informed. [...] home. 03/11/2018 Appointment: Kaylan Melendez WPtel: [phone] [phone] (30 min) Complex 03/11/2018 Patient Education: Patient Medication Summary Completed 03/11/2018 Patient Education: Cholesterol Management Completed 03/11/2018 Patient Education: Hypertension Completed 03/11/2018 Care Plan: Referral Order SNOMED-CT : [id number] Pending 03/11/2018 Visit Plan: Parasthesia - ongoing for about a month - will send RX and refer pt for EMG - The pt is to use prn antiinflammatories to manage acute pain. The patient is to call the office if the pain is worsening or does not improve. 02/17/2018 Appointment: Aditi Hamilton WPtel: [facility] (15 min) Moderate 02/17/2018 Patient Education: [...] discharge. 12/21/2017 Appointment: Aditi Hamilton WPtel: [phone] [facility] [place] (15 min) Moderate 12/21/2017 Patient Education: Patient Medication Summary Completed 12/21/2017 Appointment: Tavia Dunham WPtel: [address] [place], [place] [phone] (15 min) Moderate 12/02/2017 Visit Plan: Sinusitis [...] peripheral edema. 11/30/2017 Appointment: Aditi Hamilton WPtel: [address] [place] [phone] (15 min) Moderate 11/30/2017 Patient Education: Patient Medication Summary Completed 11/30/2017 Care Plan: Comp Metabolic Pending 11/30/2017 Care Plan: Cbc With Differential Pending 11/30/2017 Care Plan: %Hba1C LOINC : 63882-3 Pending 11/30/2017 Care Plan: Lipid Pending 11/30/2017 Care Plan: Tsh Pending 11/30/2017 Care Plan: Free T4 Pending 11/30/2017 Appointment: Tavia Dunham WPtel: [address] [place], [place] [phone] [place] (15 min) Moderate 11/26/2017 Appointment: Kaylan Melendez WPtel: [address] [place] [phone] [place] (30 min) Complex 08/13/2017 [phone] [place] ([facility] min) Moderate 08/04/2017 Appointment: Tavia Dunham WPtel: [facility] [place] (15 min) Moderate 07/20/2017 Visit Plan: [...] shot today 05/28/2017 Appointment: [facility] [place] (30 min) Complex 05/28/2017 Patient Education: [...] patient's pharmacy. 04/16/2017 Appointment: [facility]el[facility] [place] (15 min) Moderate 04/16/2017 Patient Education: [...] concerns. 02/10/2017 [phone] [place] (15 min) Moderate 02/10/2017 Patient Education: Patient Medication Summary Completed 02/10/2017 Patient Education: Obesity Completed 02/10/2017 Visit Plan: Pain in Thoracic spine with muscle spasm - ibuprofen 600mg three times daily x 3 days, rx for cyclobenzaprine. 02/02/2017 App[facility]ment[phone] (15 min) Moderate 02/02/2017 Patient Education: Patient [...] today. 01/27/2017 [phone] (15 min) Moderate 01/27/2017 Patient Education: Patient [...] pain symptoms. 11/07/2016 Appointment: Aditi Hamilton WPtel: [phone] [phone] (30 min) Complex 11/07/2016 Patient Education: [...] allergy spray. 03/26/2016 App[facility]ment[phone] ([facility] min) Complex 03/26/2016 Patient Education: [...] to medications. 12/13/2015 Appointment: Tavia Dunham WPtel: [address] [place], [place] [phone] (15 min) Moderate 12/13/2015 Patient Education: Patient [...] on supplement. 08/07/2014 Appointment: Tavia Dunham WPtel: [address] [place], [place] [phone] [place] (S) New Patient 08/07/2014 Patient Education: [...]
[2018-10-08] MEDS ORDERED: TICAGRELOR 90 MG TABLET (BRILINTA) PO ONE (10:54)
--- OUTSIDE RECORDS SUMMARY | 2018-10-08 10:55 | XMS REPORT | CCD ---
Author Author [facility] Organization [facility] Address [address] [place] [address] Phone Care Team Providers Care Social Worker Assistant Name Role Phone PP Unavailable CCM Unavailable Summary Purpose Interface Exchange Insurance Providers Payer name Policy type / Coverage type Covered alliance party ID Effective Begin Date Effective End Date Blue Cross Blue [facility] Blue Cross/Blue [facility] [id number] Unknown Family history Mother Diagnosis Age At Onset Cancer Unknown Arthritis Unknown Depression Unknown Hyperlipidemia Unknown Diabetes mellitus Type 2 Unknown Social History Social History Element Codes Description Effective Dates Marital status Unknown [place] 08/07/2014 Number of children Unknown 0 08/07/2014 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[employer] 08/07/[address]: 687760798 Never smoker 08/07/[address]: 697368613 Never drinks alcohol 08/07/2014 Allergies, Adverse Reactions, [...] 100 unit/mL (3 mL) subcutaneous pen RxNorm: 905669 35-40 Unit(s) SQ BID 07/09/2018 11/05/2018 Active INCREASE TO 40 UNITS Q AM AND 35 UNTIS Q HS doxycycline hyclate 100 mg tablet RxNorm: 3885065 1 Tablet(s) PO BID 07/09/2018 07/18/2018 Active Levemir FlexTouch U-100 Insulin 100 unit/mL (3 mL) subcutaneous pen RxNorm: 993019 35-40 Unit(s) SQ BID 07/09/2018 07/08/2018 Inactive INCREASE TO 40 UNITS Q AM AND 35 UNTIS Q HS venlafaxine ER 150 mg capsule,extended release 24 hr RxNorm: 416335 TAKE 1 CAPSULE BY MOUTH ONCE DAILY 06/08/2018 No Stop Date Active Levemir FlexTouch U-100 Insulin 100 unit/mL (3 mL) subcutaneous pen RxNorm: 855599 30 Unit(s) SQ BID 06/04/2018 07/08/2018 Inactive update RX -increase to 35 units BID if blood sugars over 200 Augmentin 875 mg-125 mg tablet RxNorm: 557599 1 Tablet(s) PO BID 06/04/2018 06/10/2018 Inactive hydrochlorothiazide 25 mg tablet RxNorm: 564665 TAKE 1 TABLET BY MOUTH ONCE DAILY 03/23/2018 No Stop Date Active Levemir FlexTouch U-100 Insulin 100 unit/mL (3 mL) subcutaneous pen RxNorm: 497442 30 Unit(s) SQ QAM and 25 Units SQ QPM 03/18/2018 06/03/2018 Inactive Levemir FlexTouch U-100 Insulin 100 unit/mL (3 mL) subcutaneous pen RxNorm: 346405 Unit(s) 03/11/2018 03/17/2018 Inactive 30 q am and 25 units q PM pravastatin 40 mg tablet RxNorm: 580818 1 Tablet(s) PO daily take with coenzyme q 10 daily 03/03/2018 02/25/2019 Active Levemir FlexTouch U-100 Insulin 100 unit/mL (3 mL) subcutaneous pen RxNorm: 088337 Unit(s) INJECT 25 UNITS SUBCUTANEOUSLY TWICE DAILY 03/03/2018 03/10/2018 Inactive pravastatin 10 mg tablet RxNorm: 318615 1 Tablet(s) PO daily take with coenzyme q 10 daily 02/26/2018 03/02/2018 Inactive prednisone 20 mg tablet RxNorm: 843730 2 Tablet(s) PO daily 02/17/2018 02/21/2018 Inactive levothyroxine 125 mcg tablet RxNorm: 424724 TAKE 1 TABLET BY MOUTH ONCE DAILY 01/11/2018 No Stop Date Active cyclobenzaprine 5 mg tablet RxNorm: 062790 1 Tablet(s) PO TID as needed 12/28/2017 01/11/2018 Inactive Zorvolex 35 mg capsule RxNorm: 0832756 1 Capsule(s) PO TID as needed 12/25/2017 05/23/2018 Inactive Levemir FlexTouch U-100 Insulin 100 unit/mL (3 mL) subcutaneous pen RxNorm: 711555 INJECT 2O UNITS SUBCUTANEOUSLY TWICE DAILY 12/21/2017 03/02/2018 Inactive cyclobenzaprine 5 mg tablet RxNorm: 478439 1 Tablet(s) PO TID as needed 12/21/2017 12/25/2017 Inactive doxycycline hyclate 100 mg capsule RxNorm: 2158768 1 Capsule(s) PO BID 12/21/2017 12/30/2017 Inactive venlafaxine ER 150 mg capsule,extended release 24 hr RxNorm: 817037 TAKE 1 CAPSULE BY MOUTH ONCE DAILY 12/10/2017 06/07/2018 Inactive Singulair 10 mg tablet RxNorm: 959862 1 Tablet(s) PO daily 12/03/2017 12/02/2017 Inactive Singulair 10 mg tablet RxNorm: 988012 1 Tablet(s) PO daily 12/03/2017 01/01/2018 Inactive Zithromax Z-Kulwant 250 mg tablet RxNorm: 808561 1 Tablet(s) PO UD 12/03/2017 03/10/2018 Inactive z pack as directed Kenalog 40 mg/mL suspension for injection RxNorm: 4424724 1 Milliliter(s) Inj 11/30/2017 11/30/2017 Inactive prednisone 20 mg tablet RxNorm: 308012 2 Tablet(s) PO daily 11/30/2017 12/04/2017 Inactive Augmentin 875 mg-125 mg tablet RxNorm: 992547 1 Tablet(s) PO BID 11/27/2017 11/26/2017 Inactive Augmentin 875 mg-125 mg tablet RxNorm: 700481 1 Tablet(s) PO BID 11/27/2017 12/03/2017 Inactive Zorvolex 35 mg capsule RxNorm: 4368480 1 Capsule(s) PO TID as needed 11/09/2017 12/24/2017 Inactive hydrochlorothiazide 25 mg tablet RxNorm: 311736 1 Tablet(s) PO daily 10/22/2017 02/18/2018 Inactive enalapril maleate 5 mg tablet RxNorm: 172791 1 Tablet(s) PO daily TAKE ONE TABLET BY MOUTH ONCE DAILY 08/21/2017 02/16/2018 Inactive Levemir FlexTouch U-100 Insulin 100 unit/mL (3 mL) subcutaneous pen RxNorm: 967889 20 Unit(s) SQ BID 07/30/2017 12/20/2017 Inactive levothyroxine 125 mcg tablet RxNorm: 039012 TAKE ONE TABLET BY MOUTH ONCE DAILY 06/29/2017 01/10/2018 Inactive venlafaxine ER 150 mg capsule,extended release 24 hr RxNorm: 027143 1 Capsule(s) PO daily TAKE ONE CAPSULE BY MOUTH ONCE DAILY 06/08/2017 12/04/2017 Inactive prednisone 20 mg tablet RxNorm: 047658 1 Tablet(s) PO daily 06/02/2017 06/06/2017 Inactive prednisone 20 mg tablet RxNorm: 201689 1 Tablet(s) PO daily 06/01/2017 06/05/2017 Inactive Kenalog 40 mg/mL suspension for injection RxNorm: 1563357 1 Milliliter(s) Inj 05/28/2017 05/28/2017 Inactive cefdinir 300 mg capsule RxNorm: 536453 1 Capsule(s) PO BID 05/28/2017 06/03/2017 Inactive ceftriaxone 500 mg solution for injection RxNorm: 1971557 1 Inj 05/28/2017 05/28/2017 Inactive prednisone 20 mg tablet RxNorm: 245210 1 Tablet(s) PO daily 05/28/2017 05/31/2017 Inactive Keflex 500 mg capsule RxNorm: 991854 1 Capsule(s) PO TID 05/26/2017 06/01/2017 Inactive Keflex 500 mg capsule RxNorm: 276167 1 Capsule(s) PO TID 05/26/2017 05/25/2017 Inactive hydrocodone 10 mg-chlorpheniramine 8 mg/5 mL oral susp extend.rel 12hr RxNorm: 2761964 5-10 Milliliter(s) PO TID as needed 04/16/2017 No Stop Date Active Tussionex Pennkinetic ER 10 mg-8 mg/5 mL suspension,extended release RxNorm: 0638187 5 Milliliter(s) PO BID 04/16/2017 04/27/2017 Inactive Zithromax Z-Kulwant 250 mg tablet RxNorm: 586720 1 Tablet(s) PO UD 03/25/2017 04/15/2017 Inactive z pack as directed enalapril maleate 5 mg tablet RxNorm: 207081 TAKE ONE TABLET BY MOUTH ONCE DAILY 02/26/2017 08/20/2017 Inactive Levemir FlexTouch 100 unit/mL (3 mL) subcutaneous insulin pen RxNorm: 575386 20 Unit(s) SQ BID 02/10/2017 07/11/2017 Inactive Zorvolex 35 mg capsule RxNorm: 9010405 1 Capsule(s) PO TID as needed 02/10/2017 11/08/2017 Inactive valacyclovir 1 gram tablet RxNorm: 787017 1 Tablet(s) PO TID 02/10/2017 02/16/2017 Inactive Levemir FlexTouch 100 unit/mL (3 mL) subcutaneous insulin pen RxNorm: 968305 20 Unit(s) SQ BID 02/04/2017 02/09/2017 Inactive cyclobenzaprine 5 mg tablet RxNorm: 863332 1 Tablet(s) PO qhs x 3 nights and TID as needed muscle spasms 02/02/2017 No Stop Date Active levothyroxine 125 mcg tablet RxNorm: 723325 TAKE ONE TABLET BY MOUTH ONCE DAILY 12/08/2016 06/05/2017 Inactive venlafaxine ER 150 mg capsule,extended release 24 hr RxNorm: 580719 TAKE ONE CAPSULE BY MOUTH ONCE DAILY 12/01/2016 05/29/2017 Inactive Zorvolex 35 mg capsule RxNorm: 5220025 1 Capsule(s) PO TID as needed do not take meloxicam at the same time 11/07/2016 No Stop Date Active enalapril maleate 5 mg tablet RxNorm: 069838 TAKE ONE TABLET BY MOUTH ONCE DAILY 10/31/2016 12/29/2016 Inactive meloxicam 15 mg tablet RxNorm: 224555 TAKE ONE TABLET BY MOUTH ONCE DAILY 10/30/2016 03/10/2018 Inactive meloxicam 15 mg tablet RxNorm: 977340 TAKE ONE TABLET BY MOUTH ONCE DAILY 10/24/2016 10/29/2016 Inactive enalapril maleate 5 mg tablet RxNorm: 268172 TAKE ONE TABLET BY MOUTH ONCE DAILY 10/24/2016 10/30/2016 Inactive venlafaxine ER 150 mg capsule,extended release 24 hr RxNorm: 599592 TAKE ONE CAPSULE BY MOUTH ONCE DAILY 06/16/2016 11/12/2016 Inactive meloxicam 15 mg tablet RxNorm: 222928 TAKE ONE TABLET BY MOUTH ONCE DAILY 06/09/2016 10/06/2016 Inactive enalapril maleate 5 mg tablet RxNorm: 195669 TAKE ONE TABLET BY MOUTH ONCE DAILY 06/02/2016 09/29/2016 Inactive Zithromax Z-Kulwant 250 mg tablet RxNorm: 346829 1 Tablet(s) PO UD 05/21/2016 06/15/2016 Inactive levothyroxine 125 mcg tablet RxNorm: 262098 Tablet(s) TAKE ONE TABLET BY MOUTH ONCE DAILY 04/15/2016 10/11/2016 Inactive Levaquin 500 mg tablet RxNorm: 791935 1 Tablet(s) PO daily 04/03/2016 04/09/2016 Inactive Levaquin 500 mg tablet RxNorm: 558154 1 Tablet(s) PO daily 04/03/2016 04/02/2016 Inactive prednisone 20 mg tablet RxNorm: 355693 2 Tablet(s) PO daily 03/28/2016 04/01/2016 Inactive Zithromax Z-Kulwant 250 mg tablet RxNorm: 227764 1 Tablet(s) PO UD 03/26/2016 03/30/2016 Inactive zpack Kenalog 40 mg/mL suspension for injection RxNorm: 4752451 Milliliter(s) Inj 03/26/2016 03/26/2016 Inactive Zofran ODT 4 mg disintegrating tablet RxNorm: 857553 DISSOLVE ONE TABLET IN MOUTH EVERY 6 HOURS NEEDED 02/22/2016 02/29/2016 Inactive venlafaxine ER 150 mg capsule,extended release 24 hr RxNorm: 167956 TAKE ONE CAPSULE BY MOUTH ONCE DAILY 02/18/2016 06/15/2016 Inactive meloxicam 15 mg tablet RxNorm: 076341 TAKE ONE TABLET BY MOUTH ONCE DAILY 02/04/2016 06/02/2016 Inactive aspirin 81 mg chewable tablet RxNorm: 882544 1 Tablet(s) PO daily 12/13/2015 12/06/2016 Inactive biotin 2,500 mcg tablet RxNorm: 435991 1 Tablet(s) PO daily 12/13/2015 09/07/2016 Inactive hydrochlorothiazide 25 mg tablet RxNorm: 354095 1 Tablet(s) PO daily 12/13/2015 04/10/2016 Inactive enalapril maleate 5 mg tablet RxNorm: 015441 TAKE ONE TABLET BY MOUTH ONCE DAILY 11/22/2015 05/19/2016 Inactive venlafaxine ER 150 mg capsule,extended release 24 hr RxNorm: 125159 TAKE ONE CAPSULE BY MOUTH ONCE DAILY 11/14/2015 02/11/2016 Inactive levothyroxine 125 mcg tablet RxNorm: 114678 Tablet(s) TAKE ONE TABLET BY MOUTH ONCE DAILY 11/06/2015 04/14/2016 Inactive levothyroxine 125 mcg tablet RxNorm: 455692 Tablet(s) TAKE ONE TABLET BY MOUTH ONCE DAILY 08/06/2015 11/03/2015 Inactive meclizine 25 mg tablet RxNorm: 603918 1/2-1 Tablet(s) PO Q6 as needed 07/16/2015 No Stop Date Active Flonase Allergy Relief 50 mcg/actuation nasal spray,suspension RxNorm: 1 [place] NASAL daily 06/13/2015 No Stop Date Active prednisone 20 mg tablet RxNorm: 630796 2 Tablet(s) PO daily 06/13/2015 06/17/2015 Inactive Augmentin 875 mg-125 mg tablet RxNorm: 733009 1 Tablet(s) PO BID 06/13/2015 06/19/2015 Inactive Zithromax Z-Kulwant 250 mg tablet RxNorm: 899545 1 Tablet(s) PO UD 06/07/2015 06/11/2015 Inactive zpack Kenalog 40 mg/mL suspension for injection RxNorm: 8782389 Milliliter(s) Inj 06/07/2015 06/07/2015 Inactive venlafaxine ER 150 mg capsule,extended release 24 hr RxNorm: 206027 TAKE ONE CAPSULE BY MOUTH ONCE DAILY 05/14/2015 11/09/2015 Inactive Augmentin 500 mg-125 mg tablet RxNorm: 654597 1 Tablet(s) PO TID 04/25/2015 05/04/2015 Inactive Augmentin 500 mg-125 mg tablet RxNorm: 376345 1 Tablet(s) PO TID 04/25/2015 04/24/2015 Inactive pravastatin 10 mg tablet RxNorm: 935446 1 Tablet(s) PO daily take with coenzyme q 10 daily 03/21/2015 03/20/2015 Inactive DC crestor pravastatin 10 mg tablet RxNorm: 606391 1 Tablet(s) PO daily take with coenzyme q 10 daily 03/21/2015 07/18/2015 Inactive DC crestor Zofran ODT 4 mg disintegrating tablet RxNorm: 825537 1 Tablet(s) PO Q6 PRN 03/13/2015 02/21/2016 Inactive levothyroxine 125 mcg tablet RxNorm: 493000 TAKE ONE TABLET BY MOUTH ONCE DAILY 02/13/2015 08/05/2015 Inactive meloxicam 15 mg tablet RxNorm: 515811 1 Tablet(s) PO daily 01/28/2015 01/22/2016 Inactive Zofran 4 mg tablet RxNorm: 154272 1 Tablet(s) PO Q6-8H as needed nausea 01/24/2015 No Stop Date Active Trulicity 1.5 mg/0.5 mL subcutaneous pen injector RxNorm: 6873362 0.75mg Milliliter(s) SQ QW 01/10/2015 03/10/2018 Inactive venlafaxine ER 150 mg capsule,extended release 24 hr RxNorm: 250382 1 Capsule(s) PO daily 01/10/2015 05/09/2015 Inactive enalapril maleate 5 mg tablet RxNorm: 390485 1 Tablet(s) PO daily 01/04/2015 07/02/2015 Inactive amoxicillin 500 mg tablet RxNorm: 453899 1 Tablet(s) PO BID 12/07/2014 12/06/2014 Inactive Probiotic & Acidophilus 300 million cell-250 mg capsule RxNorm: 1 Capsule(s) PO BID 12/07/2014 12/16/2014 Inactive amoxicillin 500 mg tablet RxNorm: 886177 1 Tablet(s) PO BID 12/07/2014 12/16/2014 Inactive Kenalog 40 mg/mL suspension for injection RxNorm: 8321301 1 Milliliter(s) Inj 12/07/2014 12/07/2014 Inactive meloxicam 15 mg tablet RxNorm: 280615 1 Tablet(s) PO daily 10/24/2014 10/23/2014 Inactive meloxicam 15 mg tablet RxNorm: 028325 1 Tablet(s) PO daily 10/24/2014 01/27/2015 Inactive azithromycin 500 mg tablet RxNorm: 038286 1 Tablet(s) PO daily 10/11/2014 10/15/2014 Inactive azithromycin 500 mg tablet RxNorm: 078700 1 Tablet(s) PO daily 10/11/2014 10/10/2014 Inactive levothyroxine 125 mcg tablet RxNorm: 006123 1 Tablet(s) PO daily 10/06/2014 02/02/2015 Inactive enalapril maleate 5 mg tablet RxNorm: 829443 1 Tablet(s) PO daily 08/29/2014 12/26/2014 Inactive enalapril maleate 5 mg tablet RxNorm: 516345 1 Tablet(s) PO daily 08/25/2014 08/28/2014 Inactive Medroxy oral RxNorm: 8660745 oral No Start Date Active Vitamin D3 5,000 unit tablet RxNorm: 885335 1 Tablet(s) PO daily No Start Date Active fluconazole 200 mg tablet RxNorm: 335881 Tablet(s) PO No Start Date Active estradiol 2 mg tablet RxNorm: 637873 1 Tablet(s) PO daily No Start Date Active fenofibrate nanocrystallized 145 mg tablet RxNorm: 367635 1 Tablet(s) PO daily No Start Date Active hydrocodone 5 mg-acetaminophen 325 mg tablet RxNorm: 443232 1-2 Tablet(s) PO Q4-6H as needed No Start Date Active enalapril maleate 5 mg tablet RxNorm: 547592 1 Tablet(s) PO daily No Start Date 08/24/2014 Inactive glimepiride 4 mg tablet RxNorm: 039119 1 Tablet(s) PO daily No Start Date 01/26/2017 Inactive meclizine 25 mg tablet RxNorm: 769188 1/2-1 Tablet(s) PO Q6 as needed No Start Date 07/15/2015 Inactive Trulicity 0.75 mg/0.5 mL subcutaneous pen injector RxNorm: 1359424 0.75mg Milliliter(s) SQ QW No Start Date 01/09/2015 Inactive metformin 1,000 mg tablet RxNorm: 806012 Tablet(s) PO BID No Start Date 01/26/2017 Inactive venlafaxine ER 150 mg capsule,extended release 24 hr RxNorm: 651842 1 Capsule(s) PO daily No Start Date 01/09/2015 Inactive meloxicam 15 mg tablet RxNorm: 293141 1 Tablet(s) PO daily No Start Date 10/23/2014 Inactive levothyroxine 125 mcg tablet RxNorm: 792240 1 Tablet(s) PO daily No Start Date 10/05/2014 Inactive Levemir FlexTouch 100 unit/mL (3 mL) subcutaneous insulin pen RxNorm: 312378 15 Unit(s) SQ daily No Start Date 02/03/2017 Inactive Zithromax Z-Kulwnat 250 mg tablet RxNorm: 787517 1 Tablet(s) PO UD No Start Date 05/20/2016 Inactive Fish Oil 1,000 mg capsule RxNorm: 1 Capsule(s) PO BID No Start Date 11/04/2016 Inactive Zofran 4 mg tablet RxNorm: 814902 1 Tablet(s) PO Q6-8H as needed nausea No Start Date 01/23/2015 Inactive Crestor 10 mg tablet RxNorm: 407650 1 Tablet(s) PO daily No Start Date 03/20/2015 Inactive Medication Administered Medication Codes Instructions Start Date Status Kenalog 40 mg/mL suspension for injection RxNorm: 7018014 1Milliliter 11/30/2017 No longer Active Kenalog 40 mg/mL suspension for injection RxNorm: 5246124 1Milliliter 05/28/2017 No longer Active ceftriaxone 500 mg solution for injection RxNorm: 2024917 1 05/28/2017 No longer Active Kenalog 40 mg/mL suspension for injection RxNorm: 2202916 Milliliter 03/26/2016 No longer Active Kenalog 40 mg/mL suspension for injection RxNorm: 8017246 Milliliter 06/07/2015 No longer Active Kenalog 40 mg/mL suspension for injection RxNorm: 2149634 1Milliliter 12/07/2014 No longer Active Immunizations Vaccine [...] Item Item Code Result Date CHEM 14 [id number] AST TNP:Lab Request 01/27/2017 CHEM 14 [id number] ALT TNP:Lab Request 01/27/2017 CHEM 14 [id number] BUN TNP:Lab Request 01/27/2017 CHEM 14 [id number] ALBUMIN TNP:Lab Request 01/27/2017 CHEM 14 [id number] CHLORIDE TNP:Lab Request 01/27/2017 CHEM 14 [id number] Bili Total TNP:Lab Request 01/27/2017 CHEM 14 [id number] ALK PHOS TNP:Lab Request 01/27/2017 CHEM 14 [id number] SODIUM TNP:Lab Request 01/27/2017 CHEM 14 [id number] CREATININE TNP:Lab Request 01/27/2017 CHEM 14 [id number] CALCIUM TNP:Lab Request 01/27/2017 CHEM 14 [id number] POTASSIUM TNP:Lab Request 01/27/2017 CHEM 14 [id number] TOTAL PROTEIN TNP:Lab Request 01/27/2017 CHEM 14 [id number] GLUCOSE TNP:Lab Request 01/27/2017 CHEM 14 [id number] Bicarbonate TNP:Lab Request 01/27/2017 CHEM 14 [id number] AGAP TNP:Lab Request 01/27/2017 AMYLASE [id number] Amylase Lvl TNP:Lab Request 01/27/2017 LIPID GRP CHOLESTEROL 273 mg/dL 2016 LIPID GRP Triglyceride 583 mg/dL 2016 LIPID GRP HDL CHOLESTEROL 48 mg/dL 2016 LIPID GRP Chol/HDL Ratio 5.69 ratio 2016 LIPID GRP NON-HDL Chol 225 mg/dL 2016 LIPID GRP LDL Cholesterol N/A Trig >400 2016 A1C HPLC 2968810 Hgb A1c 00393-1 7.3 % 2016 TSH [id number] TSH 1.340 uIU/mL 2016 FREE T4 7667921 T4 Free 1.60 ng/dL 2016 MEAN GLUC 0345032 Calc Mean Gluc 163 mg/dL 2016 GFR CALC 8684552 GFR Non Afr Amr >60 mL/min 2016 GFR CALC 4615587 GFR Afr Amr >60 mL/min 2016 CBC 9736694 WBC 8.1 10e9/L 2016 CBC 5259528 RBC 4.41 10e12/L 2016 CBC 3601112 HEMOGLOBIN 13.2 g/dL 2016 CBC 3741557 HEMATOCRIT 39.6 % 2016 CBC 2706289 MCV 89.8 fL 2016 CBC 0017106 MCH 29.9 pg 2016 CBC 9955847 MCHC 33.3 g/dL 2016 CBC 3590893 PLATELET COUNT 298 10e9/L 2016 CBC 6130269 Mean Plt Volume 10.5 fL 2016 CBC 1282492 Neut Auto 61.3 % 2016 CBC 3977325 Lymph Auto 26.3 % 2016 CBC 2200133 Moody Auto 7.7 % 2016 CBC 0152772 RDW 13.6 % 2016 CBC 9304225 Eos Auto 4.2 % 2016 CBC 1214183 Baso Auto 0.5 % 2016 CBC 2132363 Neutrophil Abs 4.97 10e9/L 2016 CBC 0588011 Lymphocyte Abs 2.13 10e9/L 2016 CBC 6904772 Monocyte Abs 0.62 10e9/L 2016 CBC 6822125 Eosinophil Abs 0.34 10e9/L 2016 CBC 0745516 RDW-SD 44.1 fL 2016 CBC 4668368 Basophil Abs 0.04 10e9/L 2016 CHEM 14 5688915 AST 19 U/L 2016 CHEM 14 8417787 ALT 26 U/L 2016 CHEM 14 6388776 BUN 20 mg/dL 2016 CHEM 14 5681007 ALBUMIN 4.1 g/dL 2016 CHEM 14 5857542 CHLORIDE 99 mmol/L 2016 CHEM 14 8642213 Bili Total 0.3 mg/dL 2016 CHEM 14 8782715 ALK PHOS 55 U/L 2016 CHEM 14 4465118 SODIUM 135 mmol/L 2016 CHEM 14 8177182 CREATININE 0.87 mg/dL 2016 CHEM 14 2335799 CALCIUM 9.3 mg/dL 2016 CHEM 14 3119224 POTASSIUM 4.0 mmol/L 2016 CHEM 14 9254044 TOTAL PROTEIN 7.0 g/dL 2016 CHEM 14 8193438 GLUCOSE 149 mg/dL 2016 CHEM 14 9869885 Bicarbonate 26 mmol/L 2016 CHEM 14 3943365 AGAP 10 mmol/L 2016 Review of Systems [...] 4: J0696 05/28/2017 THER/PROPH/DIAG INJ SC/IM CPT-4: 36504 05/19/2017 KETOROLAC TROMETHAMINE INJ CPT-4: J1885 05/19/2017 TRIAMCINOLONE ACET INJ NOS CPT-4: J3301 03/26/2016 TRIAMCINOLONE ACET INJ NOS CPT-4: J3301 06/07/2015 THER/PROPH/DIAG INJ SC/IM CPT-4: 46580 12/07/2014 TRIAMCINOLONE ACET INJ NOS CPT-4: J3301 12/07/2014 Vital Signs Date Vital 07/09/2018 Blood Pressure 1: 138/82 Code: 8480-6 BMI: 31.6 Code: 00347-4 Heart Rate 1: 82 bpm Height: 5'7" SpO2: 96% Weight: 202 lbs 06/04/2018 Blood Pressure 1: 144/76 Code: 8480-6 BMI: 32.0 Code: 59975-9 Heart Rate 1: 82 bpm Height: 5'7" SpO2: 96% Temperature: 36.5 (C) / 97.7 (F) Weight: 204 lbs 03/11/2018 Blood Pressure 1: 142/82 Code: 8480-6 BMI: 32.1 Code: 46444-7 Heart Rate 1: 87 bpm Height: 5'7" SpO2: 97% Weight: 205 lbs 02/17/2018 Blood Pressure 1: 132/76 Code: 8480-6 BMI: 33.5 Code: 95306-4 Heart Rate 1: 92 bpm Height: 5'7" SpO2: 98% Weight: 214 lbs 12/21/2017 Blood Pressure 1: 154/78 Code: 8480-6 BMI: 33.5 Code: 01308-3 Heart Rate 1: 93 bpm Height: 5'7" SpO2: 96% Weight: 214 lbs 11/30/2017 Blood Pressure 1: 148/88 Code: 8480-6 BMI: 33.5 Code: 61797-8 Heart Rate 1: 80 bpm Height: 5'7" SpO2: 97% Temperature: 36.9 (C) / 98.5 (F) Weight: 214 lbs 05/28/2017 Blood Pressure 1: 128/70 Code: 8480-6 BMI: 31.3 Code: 62977-8 Heart Rate 1: 103 bpm Height: 5'7" SpO2: 98% Temperature: 36.7 (C) / 98.1 (F) Weight: 200 lbs 05/19/2017 Blood Pressure 1: 150/72 Code: 8480-6 04/16/2017 Blood Pressure 1: 146/88 Code: 8480-6 BMI: 31.3 Code: 74487-1 Heart Rate 1: 96 bpm Height: 5'7" SpO2: 94% Temperature: 37.2 (C) / 99.0 (F) Weight: 200 lbs 02/10/2017 Blood Pressure 1: 132/72 Code: 8480-6 BMI: 31.3 Code: 52683-6 Heart Rate 1: 99 bpm Height: 5'7" SpO2: 97% Weight: 200 lbs 02/02/2017 Blood Pressure 1: 140/68 Code: 8480-6 BMI: 31.4 Code: 61849-2 Heart Rate 1: 82 bpm Height: 5'7" SpO2: 97% Weight: 200 lbs 8 oz 01/27/2017 Blood Pressure 1: 142/80 Code: 8480-6 BMI: 32.2 Code: 81187-5 Height: 5'7" Temperature: 37.2 (C) / 98.9 (F) Weight: 205 lbs 8 oz 11/07/2016 Blood Pressure 1: 148/82 Code: 8480-6 BMI: 32.7 Code: 67261-5 Heart Rate 1: 106 bpm Height: 5'7" SpO2: 97% Weight: 209 lbs 03/26/2016 Blood Pressure 1: 140/86 Code: 8480-6 Heart Rate 1: 90 bpm Height: SpO2: 97% Weight: 12/13/2015 Blood Pressure 1: 132/72 Code: 8480-6 BMI: 31.2 Code: 27691-4 Heart Rate 1: 84 bpm Height: 5'7" SpO2: 98% Weight: 199 lbs 08/15/2015 Blood Pressure 1: 138/88 Code: 8480-6 BMI: 32.1 Code: 08971-7 Heart Rate 1: 94 bpm Height: 5'7" SpO2: 97% Weight: 205 lbs 06/13/2015 Blood Pressure 1: 188/88 Code: 8480-6 Blood Pressure 1: 146/78 Code: 8480-6 BMI: 32.6 Code: 74726-1 Heart Rate 1: 97 bpm Height: 5'7" SpO2: 98% Weight: 208 lbs 06/07/2015 Blood Pressure 1: 128/82 Code: 8480-6 BMI: 32.4 Code: 87227-3 Heart Rate 1: 80 bpm Height: 5'7" SpO2: 99% Weight: 207 lbs 03/13/2015 Blood Pressure 1: 124/70 Code: 8480-6 BMI: 31.6 Code: 64093-5 Heart Rate 1: 103 bpm Height: 5'7" Respiratory Rate: 18 bpm SpO2: 97% Temperature: 36.6 (C) / 97.8 (F) Weight: 202 lbs 12/07/2014 Blood Pressure 1: 140/80 Code: 8480-6 BMI: 32.3 Code: 59422-1 Heart Rate 1: 97 bpm Height: 5'7" SpO2: 99% Weight: 206 lbs 09/07/2014 Blood Pressure 1: 132/78 Code: 8480-6 BMI: 31.2 Code: 67648-0 Heart Rate 1: 92 bpm Height: 5'7" [...] with shunt placement- 08-11-14- Dr Ruvalcaba in [place] did surgery headache Onset and Resolution ongoing [...] Encounters Encounter Performer Location Codes Date () 45805 EST. PATIENT, LEVEL IV Diagnosis: Type 2 diabetes mellitus with hyperglycemia[ICD10: E11.65] Diagnosis: Essential (primary) hypertension[ICD10: I10] Diagnosis: Acute recurrent maxillary sinusitis[ICD10: J01.01] Kaylan Dunham MD, [facility] CPT-4: 10850 07/09/2018 ([id number]) 22849 EST. PATIENT, LEVEL IV Diagnosis: Type 2 diabetes mellitus with hyperglycemia[ICD10: E11.65] Diagnosis: Mixed hyperlipidemia[ICD10: E78.2] Diagnosis: Other allergic rhinitis[ICD10: J30.89] Kaylan Dunham MD, [facility] CPT-4: 29202 06/04/2018 ([id number]) 68117 EST. PATIENT, LEVEL IV Diagnosis: Type 2 diabetes mellitus with hyperglycemia[ICD10: E11.65] Diagnosis: Mixed hyperlipidemia[ICD10: E78.2] Diagnosis: Essential (primary) hypertension[ICD10: I10] Kaylan Dunham MD, [facility] CPT-4: 80807 03/11/2018 06095 EST. PATIENT, LEVEL III Diagnosis: Paresthesia of skin[ICD10: R20.2] Aditi Dunham MD, [facility] CPT-4: 84917 02/17/2018 50991 EST. PATIENT, LEVEL IV Diagnosis: Pain in right shoulder[ICD10: M25.511] Diagnosis: Rash and other nonspecific skin eruption[ICD10: R21] Aditi Dunham MD, [facility] CPT-4: 35410 12/21/2017 [id number] EST. PATIENT, LEVEL IV Diagnosis: Other acute sinusitis[ICD10: J01.80] Diagnosis: Other allergic rhinitis[ICD10: J30.89] Diagnosis: Localized edema[ICD10: R60.0] Aditi Dunham MD, [facility] CPT-4: 16405 11/30/2017 ([id number]) 24382 EST. PATIENT, LEVEL III Diagnosis: Acute recurrent maxillary sinusitis[ICD10: J01.01] Diagnosis: Cough[ICD10: R05] Tavia Dunham MD, [facility] CPT-4: 49421 05/28/2017 ([id number]) 10810 EST. PATIENT, LEVEL III Diagnosis: Acute laryngopharyngitis[ICD10: J06.0] Diagnosis: Cough[ICD10: R05] Tavia Dunham MD, [facility] CPT-4: 87727 04/16/2017 [id number] EST. PATIENT, LEVEL III Diagnosis: Left lower quadrant pain[ICD10: R10.32] Aditi Dunham MD, [facility] CPT-4: 38959 02/10/2017 ([id number]) 62271 EST. PATIENT, LEVEL III Diagnosis: Pain in thoracic spine[ICD10: M54.6] Diagnosis: Other muscle spasm[ICD10: M62.838] Tavia Dunham MD, [facility] CPT- 4: 28180 02/02/2017 ([id number]) 92496 EST. PATIENT, LEVEL IV Diagnosis: Other acute pancreatitis without necrosis or infection[ICD10: K85.80] Diagnosis: Epigastric pain[ICD10: R10.13] Diagnosis: Type 2 diabetes mellitus without complications[ICD10: E11.9] Tavia Dunham MD, [facility] CPT-4: [id number] 01/27/2017 30616 EST. PATIENT, LEVEL IV Diagnosis: Essential (primary) hypertension[ICD10: I10] Diagnosis: Type 1 diabetes mellitus without complications[ICD10: E10.9] Diagnosis: Other specified hypothyroidism[ICD10: E03.8] Diagnosis: Bilateral primary osteoarthritis of hip[ICD10: M16.0] Diagnosis: Actinic keratosis[ICD10: L57.0] Aditi Dunham MD, [facility] CPT-4: 12664 11/07/2016 [id number] EST. PATIENT, LEVEL III Diagnosis: Other acute sinusitis[ICD10: J01.80] Diagnosis: Other allergic rhinitis[ICD10: J30.89] Diagnosis: Cough[ICD10: R05] Aditi Dunham MD, [facility] CPT-4: 86194 03/26/2016 ([id number]) 95957 EST. PATIENT, LEVEL IV Diagnosis: Essential (primary) hypertension[ICD10: I10] Diagnosis: Pure hyperglyceridemia[ICD10: E78.1] Tavia Dunham MD, [facility] CPT- 4: 87854 12/13/2015 ([id number]) 76017 EST. PATIENT, LEVEL III Diagnosis: Essential (primary) hypertension[ICD10: I10] Diagnosis: (Idiopathic) normal pressure hydrocephalus[ICD10: G91.2] Tavia Dunham MD, [facility] CPT-4: 77540 08/15/2015 17792 EST. PATIENT, LEVEL III Diagnosis: Other acute nonsuppurative otitis media, right ear[ICD10: H65.191] Diagnosis: Acute upper respiratory infection, unspecified[ICD10: J06.9] Aditi Dunham MD, [facility] CPT-4: 75430 06/13/2015 ([id number]) 59883 EST. PATIENT, LEVEL III Diagnosis: Acute recurrent maxillary sinusitis[ICD10: J01.01] Diagnosis: Allergic rhinitis due to pollen[ICD10: J30.1] Kaylan Dunham MD, [facility] CPT-4: 61189 06/07/2015 ([id number]) 29811 EST. PATIENT, LEVEL IV Diagnosis: (Idiopathic) normal pressure hydrocephalus[ICD10: G91.2] Diagnosis: Essential (primary) hypertension[ICD10: I10] Diagnosis: Dizziness and giddiness[ICD10: R42] Diagnosis: Nausea with vomiting, unspecified[ICD10: R11.2] Kaylan Dunham MD, [facility] CPT-4: 93479 03/13/2015 91474 EST. PATIENT, LEVEL III Diagnosis: Acute sinusitis, unspecified[ICD10: J01.90] Diagnosis: Allergic rhinitis, unspecified[ICD10: J30.9] Tavia Dunham MD, [facility] CPT-4: 21769 12/07/2014 ([id number]) 64920 EST. PATIENT, LEVEL IV Diagnosis: ESSENTIAL HYPERTENSION[ICD9: 401.9] Diagnosis: DIABETES TYPE II[ICD9: 250.00] Diagnosis: NPH (normal pressure hydrocephalus)[ICD9: 331.5] Diagnosis: Hypertriglyceridemia[ICD9: 272.1] Kaylan Dunham MD, [facility] CPT- 4: 14213 09/07/2014 ([id number]) OFFICE/OUTPATIENT VISIT NEW Diagnosis: DIABETES TYPE II[ICD9: 250.00] Diagnosis: ESSENTIAL HYPERTENSION[ICD9: 401.9] Diagnosis: NPH (normal pressure hydrocephalus)[ICD9: 331.5] Diagnosis: Abnormal gait[ICD9: 781.2] Diagnosis: VITAMIN D DEFICIENCY[ICD9: 268.9] Tavia Dunham MD, [facility] CPT- 4: 07509 08/07/2014 Plan of Care Planned Activity Notes [...] allergy spray. 06/04/2018 Appointment: Kaylan Melendez WPtel: [address] [place], [place] [phone] (30 min) [facility] 06/04/2018 Patient Education: Patient Medication Summary Completed 06/04/2018 Patient Education: Cholesterol Management Completed 06/04/2018 Patient Education: Patient Medication Summary Completed 05/25/2018 Care Plan: A1C HPLC LOINC : 38462-7 Pending 05/25/2018 Referral: Ammon Joiner Patient informed. [...] home. 03/11/2018 Appointment: Kaylan Melendez WPtel: [phone] [facility] [phone] (30 min) Complex 03/11/2018 Patient Education: Patient Medication Summary Completed 03/11/2018 Patient Education: Cholesterol Management Completed 03/11/2018 Patient Education: Hypertension Completed 03/11/2018 Care Plan: Referral Order SNOMED-CT : [id number] Pending 03/11/2018 Visit Plan: Parasthesia - ongoing for about a month - will send RX and refer pt for EMG - The pt is to use prn antiinflammatories to manage acute pain. The patient is to call the office if the pain is worsening or does not improve. 02/17/2018 Appointment: Aditi Hamilton WPtel: [facility] [address] (15 min) Moderate 02/17/2018 Patient Education: Patient [...] discharge. 12/21/2017 Appointment: Aditi Hamilton WPtel: [phone] [facility] [address] [place] (15 min) Moderate 12/21/2017 Patient Education: Patient Medication Summary Completed 12/21/2017 Appointment: Tavia Dunham WPtel: [address] [place], [place] [phone] (15 min) Moderate 12/02/2017 Visit Plan: Sinusitis [...] peripheral edema. 11/30/2017 Appointment: Aditi Hamilton WPtel: [address] [place], [place] [phone] (15 min) Moderate 11/30/2017 Patient Education: Patient Medication Summary Completed 11/30/2017 Care Plan: Comp Metabolic Pending 11/30/2017 Care Plan: Cbc With Differential Pending 11/30/2017 Care Plan: %Hba1C LOINC : 02418-4 Pending 11/30/2017 Care Plan: Lipid Pending 11/30/2017 Care Plan: Tsh Pending 11/30/2017 Care Plan: Free T4 Pending 11/30/2017 Appointment: Tavia Dunham WPtel: [address] [place], [place] [phone] [place] (15 min) Moderate 11/26/2017 Appointment: Kaylan Melendez WPtel: [address] [place], [place] [phone] [place] (30 min) Complex 08/13/2017 [phone] [place] ([facility] min) Moderate 08/04/2017 Appointment: Tavia Dunham WPtel: [facility] [place] (15 min) Moderate 07/20/2017 Visit [...] shot today 05/28/2017 Appointment: Tavia Dunham WPtel[facility] [place] ([facility] min) Complex 05/28/2017 [...] patient's pharmacy. 04/16/2017 Appointment: Tavia Dunham WPtel[facility] [place] ([facility] min) Moderate 04/16/2017 [...] concerns. 02/10/2017 [facility]ment[facility] [facility] [place] ([facility] min) Moderate 02/10/2017 Patient Education: Patient Medication Summary Completed 02/10/2017 Patient Education: Obesity Completed 02/10/2017 Visit Plan: Pain in Thoracic spine with muscle spasm - ibuprofen 600mg three times daily x 3 days, rx for cyclobenzaprine. 02/02/2017 Appointment: [facility]el[phone] [facility] ([facility] min) Moderate 02/02/2017 Patient Education: Patient [...] today. 01/27/2017 Appointment: [facility]el[facility] [phone] [facility] (15 min) Moderate 01/27/2017 Patient [...] pain symptoms. 11/07/2016 Appointment: Aditi Hamilton WPtel: [address] [facility] [address] (30 min) Complex 11/07/2016 Patient Education: Patient [...] spray. 03/26/2016 Appointment: [facility] [address] [facility] ([facility] min) Complex 03/26/2016 Patient Education: [...] to medications. 12/13/2015 Appointment: Tavia Dunham WPtel: [address] [place], [place] [phone] (15 min) Moderate 12/13/2015 Patient Education: Patient [...] on supplement. 08/07/2014 Appointment: Tavia Dunham WPtel: [address] [place], [place] [phone] [place] (S) New Patient 08/07/2014 Patient Education: [...]
--- OUTSIDE RECORDS SUMMARY | 2018-10-08 10:59 | XMS REPORT | CCD ---
Author Author [facility] Organization [facility] Address [address] [place] [address] Phone Care Team Providers Care Survey Crew Chief Name Role Phone PP Unavailable CCM Unavailable Summary Purpose Interface Exchange Insurance Providers Payer name Policy type / Coverage type Covered libertarian ID Effective Begin Date Effective End Date Blue Cross Blue [facility] Blue Cross/Blue [facility] [id number] Unknown Family history Mother Diagnosis Age At Onset Cancer Unknown Arthritis Unknown Depression Unknown Hyperlipidemia Unknown Diabetes mellitus Type 2 Unknown Social History Social History Element Codes Description Effective Dates Marital status Unknown [place] 08/07/2014 Number of children Unknown 0 08/07/2014 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 08/07/[address]: 484800429 Never smoker 08/07/[address]: 857029507 Never drinks alcohol 08/07/2014 Allergies, Adverse Reactions, Alerts Substance Reaction Codes Entered Date Inactivated Date Status CODEINE emesis RxNorm: 2670 08/07/2014 No Inactive Date Active Past Medical History Illness Codes Condition Status Onset Date Resolved Date Acute recurrent maxillary sinusitis ICD-9: 461.0 ICD-10: J01.01 Active 06/06/2015 Unknown Type 2 diabetes mellitus with hyperglycemia ICD-9: 250.00 ICD-10: E11.65 Active 03/11/2018 Unknown Mixed hyperlipidemia ICD- 9: 272.2 ICD-10: E78.2 Active 03/11/2018 Unknown Other allergic rhinitis ICD-9: 477.8 ICD-10: J30.89 Active 03/26/2016 Unknown Essential (primary) hypertension ICD-9: 401.9 ICD-10: I10 Active 08/06/2014 Unknown Paresthesia of skin ICD- 9: 782.0 [...] sinusitis ICD-9: 461.0 ICD-10: J01.01 06/06/2015 Active Type 2 diabetes mellitus with hyperglycemia ICD-9: 250.00 ICD-10: E11.65 03/11/2018 Active Mixed hyperlipidemia ICD- 9: 272.2 ICD-10: E78.2 03/11/2018 Active Other allergic rhinitis ICD-9: 477.8 ICD-10: J30.89 03/26/2016 Active Essential (primary) hypertension ICD-9: 401.9 ICD-10: I10 08/06/2014 Active Paresthesia of skin ICD- 9: 782.0 [...] 100 unit/mL (3 mL) subcutaneous pen RxNorm: 218325 35-40 Unit(s) SQ BID 07/09/2018 11/05/2018 Active INCREASE TO 40 UNITS Q AM AND 35 UNTIS Q HS doxycycline hyclate 100 mg tablet RxNorm: 9991032 1 Tablet(s) PO BID 07/09/2018 07/18/2018 Active Levemir FlexTouch U-100 Insulin 100 unit/mL (3 mL) subcutaneous pen RxNorm: 262706 35-40 Unit(s) SQ BID 07/09/2018 07/08/2018 Inactive INCREASE TO 40 UNITS Q AM AND 35 UNTIS Q HS venlafaxine ER 150 mg capsule,extended release 24 hr RxNorm: 988264 TAKE 1 CAPSULE BY MOUTH ONCE DAILY 06/08/2018 No Stop Date Active Levemir FlexTouch U-100 Insulin 100 unit/mL (3 mL) subcutaneous pen RxNorm: 027755 30 Unit(s) SQ BID 06/04/2018 07/08/2018 Inactive update RX -increase to 35 units BID if blood sugars over 200 Augmentin 875 mg-125 mg tablet RxNorm: 408242 1 Tablet(s) PO BID 06/04/2018 06/10/2018 Inactive hydrochlorothiazide 25 mg tablet RxNorm: 054410 TAKE 1 TABLET BY MOUTH ONCE DAILY 03/23/2018 No Stop Date Active Levemir FlexTouch U-100 Insulin 100 unit/mL (3 mL) subcutaneous pen RxNorm: 033805 30 Unit(s) SQ QAM and 25 Units SQ QPM 03/18/2018 06/03/2018 Inactive Levemir FlexTouch U-100 Insulin 100 unit/mL (3 mL) subcutaneous pen RxNorm: 295891 Unit(s) 03/11/2018 03/17/2018 Inactive 30 q am and 25 units q PM pravastatin 40 mg tablet RxNorm: 222139 1 Tablet(s) PO daily take with coenzyme q 10 daily 03/03/2018 02/25/2019 Active Levemir FlexTouch U-100 Insulin 100 unit/mL (3 mL) subcutaneous pen RxNorm: 754908 Unit(s) INJECT 25 UNITS SUBCUTANEOUSLY TWICE DAILY 03/03/2018 03/10/2018 Inactive pravastatin 10 mg tablet RxNorm: 632875 1 Tablet(s) PO daily take with coenzyme q 10 daily 02/26/2018 03/02/2018 Inactive prednisone 20 mg tablet RxNorm: 697813 2 Tablet(s) PO daily 02/17/2018 02/21/2018 Inactive levothyroxine 125 mcg tablet RxNorm: 555663 TAKE 1 TABLET BY MOUTH ONCE DAILY 01/11/2018 No Stop Date Active cyclobenzaprine 5 mg tablet RxNorm: 197968 1 Tablet(s) PO TID as needed 12/28/2017 01/11/2018 Inactive Zorvolex 35 mg capsule RxNorm: 3103459 1 Capsule(s) PO TID as needed 12/25/2017 05/23/2018 Inactive Levemir FlexTouch U-100 Insulin 100 unit/mL (3 mL) subcutaneous pen RxNorm: 104334 INJECT 2O UNITS SUBCUTANEOUSLY TWICE DAILY 12/21/2017 03/02/2018 Inactive cyclobenzaprine 5 mg tablet RxNorm: 542690 1 Tablet(s) PO TID as needed 12/21/2017 12/25/2017 Inactive doxycycline hyclate 100 mg capsule RxNorm: 0886715 1 Capsule(s) PO BID 12/21/2017 12/30/2017 Inactive venlafaxine ER 150 mg capsule,extended release 24 hr RxNorm: 547995 TAKE 1 CAPSULE BY MOUTH ONCE DAILY 12/10/2017 06/07/2018 Inactive Singulair 10 mg tablet RxNorm: 552878 1 Tablet(s) PO daily 12/03/2017 12/02/2017 Inactive Singulair 10 mg tablet RxNorm: 664435 1 Tablet(s) PO daily 12/03/2017 01/01/2018 Inactive Zithromax Z-Kulwant 250 mg tablet RxNorm: 182270 1 Tablet(s) PO UD 12/03/2017 03/10/2018 Inactive z pack as directed Kenalog 40 mg/mL suspension for injection RxNorm: 3250354 1 Milliliter(s) Inj 11/30/2017 11/30/2017 Inactive prednisone 20 mg tablet RxNorm: 616265 2 Tablet(s) PO daily 11/30/2017 12/04/2017 Inactive Augmentin 875 mg-125 mg tablet RxNorm: 228061 1 Tablet(s) PO BID 11/27/2017 11/26/2017 Inactive Augmentin 875 mg-125 mg tablet RxNorm: 691817 1 Tablet(s) PO BID 11/27/2017 12/03/2017 Inactive Zorvolex 35 mg capsule RxNorm: 7646063 1 Capsule(s) PO TID as needed 11/09/2017 12/24/2017 Inactive hydrochlorothiazide 25 mg tablet RxNorm: 467803 1 Tablet(s) PO daily 10/22/2017 02/18/2018 Inactive enalapril maleate 5 mg tablet RxNorm: 656367 1 Tablet(s) PO daily TAKE ONE TABLET BY MOUTH ONCE DAILY 08/21/2017 02/16/2018 Inactive Levemir FlexTouch U-100 Insulin 100 unit/mL (3 mL) subcutaneous pen RxNorm: 264547 20 Unit(s) SQ BID 07/30/2017 12/20/2017 Inactive levothyroxine 125 mcg tablet RxNorm: 966218 TAKE ONE TABLET BY MOUTH ONCE DAILY 06/29/2017 01/10/2018 Inactive venlafaxine ER 150 mg capsule,extended release 24 hr RxNorm: 698308 1 Capsule(s) PO daily TAKE ONE CAPSULE BY MOUTH ONCE DAILY 06/08/2017 12/04/2017 Inactive prednisone 20 mg tablet RxNorm: 335823 1 Tablet(s) PO daily 06/02/2017 06/06/2017 Inactive prednisone 20 mg tablet RxNorm: 415440 1 Tablet(s) PO daily 06/01/2017 06/05/2017 Inactive Kenalog 40 mg/mL suspension for injection RxNorm: 7715390 1 Milliliter(s) Inj 05/28/2017 05/28/2017 Inactive cefdinir 300 mg capsule RxNorm: 915523 1 Capsule(s) PO BID 05/28/2017 06/03/2017 Inactive ceftriaxone 500 mg solution for injection RxNorm: 0973581 1 Inj 05/28/2017 05/28/2017 Inactive prednisone 20 mg tablet RxNorm: 078422 1 Tablet(s) PO daily 05/28/2017 05/31/2017 Inactive Keflex 500 mg capsule RxNorm: 357122 1 Capsule(s) PO TID 05/26/2017 06/01/2017 Inactive Keflex 500 mg capsule RxNorm: 991085 1 Capsule(s) PO TID 05/26/2017 05/25/2017 Inactive hydrocodone 10 mg-chlorpheniramine 8 mg/5 mL oral susp extend.rel 12hr RxNorm: 2258248 5-10 Milliliter(s) PO TID as needed 04/16/2017 No Stop Date Active Tussionex Pennkinetic ER 10 mg-8 mg/5 mL suspension,extended release RxNorm: 5019208 5 Milliliter(s) PO BID 04/16/2017 04/27/2017 Inactive Zithromax Z-Kulwant 250 mg tablet RxNorm: 697721 1 Tablet(s) PO UD 03/25/2017 04/15/2017 Inactive z pack as directed enalapril maleate 5 mg tablet RxNorm: 783907 TAKE ONE TABLET BY MOUTH ONCE DAILY 02/26/2017 08/20/2017 Inactive Levemir FlexTouch 100 unit/mL (3 mL) subcutaneous insulin pen RxNorm: 924928 20 Unit(s) SQ BID 02/10/2017 07/11/2017 Inactive Zorvolex 35 mg capsule RxNorm: 5530574 1 Capsule(s) PO TID as needed 02/10/2017 11/08/2017 Inactive valacyclovir 1 gram tablet RxNorm: 009098 1 Tablet(s) PO TID 02/10/2017 02/16/2017 Inactive Levemir FlexTouch 100 unit/mL (3 mL) subcutaneous insulin pen RxNorm: 631225 20 Unit(s) SQ BID 02/04/2017 02/09/2017 Inactive cyclobenzaprine 5 mg tablet RxNorm: 715052 1 Tablet(s) PO qhs x 3 nights and TID as needed muscle spasms 02/02/2017 No Stop Date Active levothyroxine 125 mcg tablet RxNorm: 526505 TAKE ONE TABLET BY MOUTH ONCE DAILY 12/08/2016 06/05/2017 Inactive venlafaxine ER 150 mg capsule,extended release 24 hr RxNorm: 595544 TAKE ONE CAPSULE BY MOUTH ONCE DAILY 12/01/2016 05/29/2017 Inactive Zorvolex 35 mg capsule RxNorm: 8861893 1 Capsule(s) PO TID as needed do not take meloxicam at the same time 11/07/2016 No Stop Date Active enalapril maleate 5 mg tablet RxNorm: 306086 TAKE ONE TABLET BY MOUTH ONCE DAILY 10/31/2016 12/29/2016 Inactive meloxicam 15 mg tablet RxNorm: 973801 TAKE ONE TABLET BY MOUTH ONCE DAILY 10/30/2016 03/10/2018 Inactive meloxicam 15 mg tablet RxNorm: 571745 TAKE ONE TABLET BY MOUTH ONCE DAILY 10/24/2016 10/29/2016 Inactive enalapril maleate 5 mg tablet RxNorm: 588975 TAKE ONE TABLET BY MOUTH ONCE DAILY 10/24/2016 10/30/2016 Inactive venlafaxine ER 150 mg capsule,extended release 24 hr RxNorm: 767232 TAKE ONE CAPSULE BY MOUTH ONCE DAILY 06/16/2016 11/12/2016 Inactive meloxicam 15 mg tablet RxNorm: 176130 TAKE ONE TABLET BY MOUTH ONCE DAILY 06/09/2016 10/06/2016 Inactive enalapril maleate 5 mg tablet RxNorm: 111252 TAKE ONE TABLET BY MOUTH ONCE DAILY 06/02/2016 09/29/2016 Inactive Zithromax Z-Kulwant 250 mg tablet RxNorm: 264466 1 Tablet(s) PO UD 05/21/2016 06/15/2016 Inactive levothyroxine 125 mcg tablet RxNorm: 233827 Tablet(s) TAKE ONE TABLET BY MOUTH ONCE DAILY 04/15/2016 10/11/2016 Inactive Levaquin 500 mg tablet RxNorm: 023913 1 Tablet(s) PO daily 04/03/2016 04/09/2016 Inactive Levaquin 500 mg tablet RxNorm: 470494 1 Tablet(s) PO daily 04/03/2016 04/02/2016 Inactive prednisone 20 mg tablet RxNorm: 629216 2 Tablet(s) PO daily 03/28/2016 04/01/2016 Inactive Zithromax Z-Kulwant 250 mg tablet RxNorm: 132753 1 Tablet(s) PO UD 03/26/2016 03/30/2016 Inactive zpack Kenalog 40 mg/mL suspension for injection RxNorm: 4078201 Milliliter(s) Inj 03/26/2016 03/26/2016 Inactive Zofran ODT 4 mg disintegrating tablet RxNorm: 315446 DISSOLVE ONE TABLET IN MOUTH EVERY 6 HOURS NEEDED 02/22/2016 02/29/2016 Inactive venlafaxine ER 150 mg capsule,extended release 24 hr RxNorm: 429640 TAKE ONE CAPSULE BY MOUTH ONCE DAILY 02/18/2016 06/15/2016 Inactive meloxicam 15 mg tablet RxNorm: 099066 TAKE ONE TABLET BY MOUTH ONCE DAILY 02/04/2016 06/02/2016 Inactive aspirin 81 mg chewable tablet RxNorm: 000294 1 Tablet(s) PO daily 12/13/2015 12/06/2016 Inactive biotin 2,500 mcg tablet RxNorm: 629661 1 Tablet(s) PO daily 12/13/2015 09/07/2016 Inactive hydrochlorothiazide 25 mg tablet RxNorm: 663024 1 Tablet(s) PO daily 12/13/2015 04/10/2016 Inactive enalapril maleate 5 mg tablet RxNorm: 223196 TAKE ONE TABLET BY MOUTH ONCE DAILY 11/22/2015 05/19/2016 Inactive venlafaxine ER 150 mg capsule,extended release 24 hr RxNorm: 957553 TAKE ONE CAPSULE BY MOUTH ONCE DAILY 11/14/2015 02/11/2016 Inactive levothyroxine 125 mcg tablet RxNorm: 621982 Tablet(s) TAKE ONE TABLET BY MOUTH ONCE DAILY 11/06/2015 04/14/2016 Inactive levothyroxine 125 mcg tablet RxNorm: 442664 Tablet(s) TAKE ONE TABLET BY MOUTH ONCE DAILY 08/06/2015 11/03/2015 Inactive meclizine 25 mg tablet RxNorm: 206244 1/2-1 Tablet(s) PO Q6 as needed 07/16/2015 No Stop Date Active Flonase Allergy Relief 50 mcg/actuation nasal spray,suspension RxNorm: 1 Claude NASAL daily 06/13/2015 No Stop Date Active prednisone 20 mg tablet RxNorm: 512617 2 Tablet(s) PO daily 06/13/2015 06/17/2015 Inactive Augmentin 875 mg-125 mg tablet RxNorm: 230481 1 Tablet(s) PO BID 06/13/2015 06/19/2015 Inactive Zithromax Z-Kulwant 250 mg tablet RxNorm: 706927 1 Tablet(s) PO UD 06/07/2015 06/11/2015 Inactive zpack Kenalog 40 mg/mL suspension for injection RxNorm: 0618191 Milliliter(s) Inj 06/07/2015 06/07/2015 Inactive venlafaxine ER 150 mg capsule,extended release 24 hr RxNorm: 610338 TAKE ONE CAPSULE BY MOUTH ONCE DAILY 05/14/2015 11/09/2015 Inactive Augmentin 500 mg-125 mg tablet RxNorm: 587440 1 Tablet(s) PO TID 04/25/2015 05/04/2015 Inactive Augmentin 500 mg-125 mg tablet RxNorm: 319092 1 Tablet(s) PO TID 04/25/2015 04/24/2015 Inactive pravastatin 10 mg tablet RxNorm: 495077 1 Tablet(s) PO daily take with coenzyme q 10 daily 03/21/2015 03/20/2015 Inactive DC crestor pravastatin 10 mg tablet RxNorm: 040134 1 Tablet(s) PO daily take with coenzyme q 10 daily 03/21/2015 07/18/2015 Inactive DC crestor Zofran ODT 4 mg disintegrating tablet RxNorm: 869434 1 Tablet(s) PO Q6 PRN 03/13/2015 02/21/2016 Inactive levothyroxine 125 mcg tablet RxNorm: 961863 TAKE ONE TABLET BY MOUTH ONCE DAILY 02/13/2015 08/05/2015 Inactive meloxicam 15 mg tablet RxNorm: 338558 1 Tablet(s) PO daily 01/28/2015 01/22/2016 Inactive Zofran 4 mg tablet RxNorm: 280443 1 Tablet(s) PO Q6-8H as needed nausea 01/24/2015 No Stop Date Active Trulicity 1.5 mg/0.5 mL subcutaneous pen injector RxNorm: 5426472 0.75mg Milliliter(s) SQ QW 01/10/2015 03/10/2018 Inactive venlafaxine ER 150 mg capsule,extended release 24 hr RxNorm: 630296 1 Capsule(s) PO daily 01/10/2015 05/09/2015 Inactive enalapril maleate 5 mg tablet RxNorm: 898630 1 Tablet(s) PO daily 01/04/2015 07/02/2015 Inactive amoxicillin 500 mg tablet RxNorm: 103509 1 Tablet(s) PO BID 12/07/2014 12/06/2014 Inactive Probiotic & Acidophilus 300 million cell-250 mg capsule RxNorm: 1 Capsule(s) PO BID 12/07/2014 12/16/2014 Inactive amoxicillin 500 mg tablet RxNorm: 174817 1 Tablet(s) PO BID 12/07/2014 12/16/2014 Inactive Kenalog 40 mg/mL suspension for injection RxNorm: 9262106 1 Milliliter(s) Inj 12/07/2014 12/07/2014 Inactive meloxicam 15 mg tablet RxNorm: 314708 1 Tablet(s) PO daily 10/24/2014 10/23/2014 Inactive meloxicam 15 mg tablet RxNorm: 860058 1 Tablet(s) PO daily 10/24/2014 01/27/2015 Inactive azithromycin 500 mg tablet RxNorm: 703640 1 Tablet(s) PO daily 10/11/2014 10/15/2014 Inactive azithromycin 500 mg tablet RxNorm: 464247 1 Tablet(s) PO daily 10/11/2014 10/10/2014 Inactive levothyroxine 125 mcg tablet RxNorm: 456729 1 Tablet(s) PO daily 10/06/2014 02/02/2015 Inactive enalapril maleate 5 mg tablet RxNorm: 934045 1 Tablet(s) PO daily 08/29/2014 12/26/2014 Inactive enalapril maleate 5 mg tablet RxNorm: 327071 1 Tablet(s) PO daily 08/25/2014 08/28/2014 Inactive Medroxy oral RxNorm: 7478808 oral No Start Date Active Vitamin D3 5,000 unit tablet RxNorm: 840818 1 Tablet(s) PO daily No Start Date Active fluconazole 200 mg tablet RxNorm: 025004 Tablet(s) PO No Start Date Active estradiol 2 mg tablet RxNorm: 940138 1 Tablet(s) PO daily No Start Date Active fenofibrate nanocrystallized 145 mg tablet RxNorm: 416999 1 Tablet(s) PO daily No Start Date Active hydrocodone 5 mg-acetaminophen 325 mg tablet RxNorm: 712624 1-2 Tablet(s) PO Q4-6H as needed No Start Date Active enalapril maleate 5 mg tablet RxNorm: 123863 1 Tablet(s) PO daily No Start Date 08/24/2014 Inactive glimepiride 4 mg tablet RxNorm: 603960 1 Tablet(s) PO daily No Start Date 01/26/2017 Inactive meclizine 25 mg tablet RxNorm: 768932 1/2-1 Tablet(s) PO Q6 as needed No Start Date 07/15/2015 Inactive Trulicity 0.75 mg/0.5 mL subcutaneous pen injector RxNorm: 3694393 0.75mg Milliliter(s) SQ QW No Start Date 01/09/2015 Inactive metformin 1,000 mg tablet RxNorm: 517665 Tablet(s) PO BID No Start Date 01/26/2017 Inactive venlafaxine ER 150 mg capsule,extended release 24 hr RxNorm: 199049 1 Capsule(s) PO daily No Start Date 01/09/2015 Inactive meloxicam 15 mg tablet RxNorm: 964652 1 Tablet(s) PO daily No Start Date 10/23/2014 Inactive levothyroxine 125 mcg tablet RxNorm: 891124 1 Tablet(s) PO daily No Start Date 10/05/2014 Inactive Levemir FlexTouch 100 unit/mL (3 mL) subcutaneous insulin pen RxNorm: 868691 15 Unit(s) SQ daily No Start Date 02/03/2017 Inactive Zithromax Z-Kulwant 250 mg tablet RxNorm: 482842 1 Tablet(s) PO UD No Start Date 05/20/2016 Inactive Fish Oil 1,000 mg capsule RxNorm: 1 Capsule(s) PO BID No Start Date 11/04/2016 Inactive Zofran 4 mg tablet RxNorm: 787953 1 Tablet(s) PO Q6-8H as needed nausea No Start Date 01/23/2015 Inactive Crestor 10 mg tablet RxNorm: 285799 1 Tablet(s) PO daily No Start Date 03/20/2015 Inactive Medication Administered Medication Codes Instructions Start Date Status Kenalog 40 mg/mL suspension for injection RxNorm: 4981103 1Milliliter 11/30/2017 No longer Active Kenalog 40 mg/mL suspension for injection RxNorm: 9208290 1Milliliter 05/28/2017 No longer Active ceftriaxone 500 mg solution for injection RxNorm: 6423142 1 05/28/2017 No longer Active Kenalog 40 mg/mL suspension for injection RxNorm: 7552415 Milliliter 03/26/2016 No longer Active Kenalog 40 mg/mL suspension for injection RxNorm: 1364293 Milliliter 06/07/2015 No longer Active Kenalog 40 mg/mL suspension for injection RxNorm: 3594895 1Milliliter 12/07/2014 No longer Active Immunizations Vaccine Codes Date Status Influenza CVX: 141 11/26/2017 completed Assessments Condition Codes Effective Dates Other allergic rhinitis ICD-10: J30.89 ICD-9: 477.8 06/04/2018 Mixed hyperlipidemia ICD-10: E78.2 ICD-9: 272.2 06/04/2018 Type 2 diabetes mellitus with hyperglycemia ICD-10: E11.65 ICD-9: 250.00 06/04/2018 Essential (primary) hypertension ICD-10: I10 ICD-9: 401.9 03/11/2018 Paresthesia of skin ICD-10: R20.2 ICD-9: 782.0 02/17/2018 Rash and other nonspecific skin eruption ICD-10: R21 ICD-9: 782.1 12/21/2017 Pain in right shoulder ICD-10: M25.511 ICD-9: 719.41 12/21/2017 Localized edema ICD-10: R60.0 ICD-9: 782.3 11/30/2017 Other acute sinusitis ICD-10: J01.80 ICD-9: 461.8 11/30/2017 Acute recurrent maxillary sinusitis ICD-10: J01.01 ICD-9: 461.0 05/28/2017 Cough ICD-10: R05 ICD-9: 786.2 05/28/2017 Headache [...] For Visit Effective Dates Notes diabetes mellitus 06/04/2018 hyperlipidemia 03/11/2018 hand pain [...] Item Item Code Result Date CHEM 14 [id number] AST TNP:Lab Request 01/27/2017 CHEM 14 [id number] ALT TNP:Lab Request 01/27/2017 CHEM 14 [id number] BUN TNP:Lab Request 01/27/2017 CHEM 14 [id number] ALBUMIN TNP:Lab Request 01/27/2017 CHEM 14 [id number] CHLORIDE TNP:Lab Request 01/27/2017 CHEM 14 [id number] Bili Total TNP:Lab Request 01/27/2017 CHEM 14 [id number] ALK PHOS TNP:Lab Request 01/27/2017 CHEM 14 [id number] SODIUM TNP:Lab Request 01/27/2017 CHEM 14 [id number] CREATININE TNP:Lab Request 01/27/2017 CHEM 14 [id number] CALCIUM TNP:Lab Request 01/27/2017 CHEM 14 [id number] POTASSIUM TNP:Lab Request 01/27/2017 CHEM 14 [id number] TOTAL PROTEIN TNP:Lab Request 01/27/2017 CHEM 14 [id number] GLUCOSE TNP:Lab Request 01/27/2017 CHEM 14 [id number] Bicarbonate TNP:Lab Request 01/27/2017 CHEM 14 [id number] AGAP TNP:Lab Request 01/27/2017 AMYLASE [id number] Amylase Lvl TNP:Lab Request 01/27/2017 LIPID GRP CHOLESTEROL 273 mg/dL 2016 LIPID GRP Triglyceride 583 mg/dL 2016 LIPID GRP HDL CHOLESTEROL 48 mg/dL 2016 LIPID GRP Chol/HDL Ratio 5.69 ratio 2016 LIPID GRP NON-HDL Chol 225 mg/dL 2016 LIPID GRP LDL Cholesterol N/A Trig >400 2016 A1C HPLC 4166164 Hgb A1c 82119-4 7.3 % 2016 TSH [id number] TSH 1.340 uIU/mL 2016 FREE T4 1359106 T4 Free 1.60 ng/dL 2016 MEAN GLUC 4231840 Calc Mean Gluc 163 mg/dL 2016 GFR CALC 6361276 GFR Non Afr Amr >60 mL/min 2016 GFR CALC 4618477 GFR Afr Amr >60 mL/min 2016 CBC [id number] WBC 8.1 10e9/L 2016 CBC 7119215 RBC 4.41 10e12/L 2016 CBC 9801553 HEMOGLOBIN 13.2 g/dL 2016 CBC 3889374 HEMATOCRIT 39.6 % 2016 CBC 1578566 MCV 89.8 fL 2016 CBC 4224709 MCH 29.9 pg 2016 CBC 2423108 MCHC 33.3 g/dL 2016 CBC 5315013 PLATELET COUNT 298 10e9/L 2016 CBC 6953228 Mean Plt Volume 10.5 fL 2016 CBC 2959128 Neut Auto 61.3 % 2016 CBC 8544052 Lymph Auto 26.3 % 2016 CBC 9980546 [place] Auto 7.7 % 2016 CBC 8036196 RDW 13.6 % 2016 CBC 4253736 Eos Auto 4.2 % 2016 CBC 9695792 Baso Auto 0.5 % 2016 CBC 6798219 Neutrophil Abs 4.97 10e9/L 2016 CBC 3759209 Lymphocyte Abs 2.13 10e9/L 2016 CBC 5076498 Monocyte Abs 0.62 10e9/L 2016 CBC 7176235 Eosinophil Abs 0.34 10e9/L 2016 CBC 8221072 RDW-SD 44.1 fL 2016 CBC 7091116 Basophil Abs 0.04 10e9/L 2016 CHEM 14 [id number] AST 19 U/L 2016 CHEM 14 4177207 ALT 26 U/L 2016 CHEM 14 8460225 BUN 20 mg/dL 2016 CHEM 14 0563029 ALBUMIN 4.1 g/dL 2016 CHEM 14 4207032 CHLORIDE 99 mmol/L 2016 CHEM 14 6909973 Bili Total 0.3 mg/dL 2016 CHEM 14 2978614 ALK PHOS 55 U/L 2016 CHEM 14 5196700 SODIUM 135 mmol/L 2016 CHEM 14 6434470 CREATININE 0.87 mg/dL 2016 CHEM 14 5847612 CALCIUM 9.3 mg/dL 2016 CHEM 14 5247877 POTASSIUM 4.0 mmol/L 2016 CHEM 14 6723514 TOTAL PROTEIN 7.0 g/dL 2016 CHEM 14 8284743 GLUCOSE 149 mg/dL 2016 CHEM 14 0054104 Bicarbonate 26 mmol/L 2016 CHEM 14 7855438 AGAP 10 mmol/L 2016 Review of Systems System Result Effective Dates Constitutional recent illness 06/04/2018 Constitutional No anorexia [...] 4: J0696 05/28/2017 THER/PROPH/DIAG INJ SC/IM CPT-4: 25621 05/19/2017 KETOROLAC TROMETHAMINE INJ CPT-4: J1885 05/19/2017 TRIAMCINOLONE ACET INJ NOS CPT-4: J3301 03/26/2016 TRIAMCINOLONE ACET INJ NOS CPT-4: J3301 06/07/2015 THER/PROPH/DIAG INJ SC/IM CPT-4: 78375 12/07/2014 TRIAMCINOLONE ACET INJ NOS CPT-4: J3301 12/07/2014 Vital Signs Date Vital 06/04/2018 Blood Pressure 1: 144/76 Code: 8480-6 BMI: 32.0 Code: 67580-3 Heart Rate 1: 82 bpm Height: 5'7" SpO2: 96% Temperature: 36.5 (C) / 97.7 (F) Weight: 204 lbs 03/11/2018 Blood Pressure 1: 142/82 Code: 8480-6 BMI: 32.1 Code: 69253-3 Heart Rate 1: 87 bpm Height: 5'7" SpO2: 97% Weight: 205 lbs 02/17/2018 Blood Pressure 1: 132/76 Code: 8480-6 BMI: 33.5 Code: 54880-6 Heart Rate 1: 92 bpm Height: 5'7" SpO2: 98% Weight: 214 lbs 12/21/2017 Blood Pressure 1: 154/78 Code: 8480-6 BMI: 33.5 Code: 22014-6 Heart Rate 1: 93 bpm Height: 5'7" SpO2: 96% Weight: 214 lbs 11/30/2017 Blood Pressure 1: 148/88 Code: 8480-6 BMI: 33.5 Code: 77476-6 Heart Rate 1: 80 bpm Height: 5'7" SpO2: 97% Temperature: 36.9 (C) / 98.5 (F) Weight: 214 lbs 05/28/2017 Blood Pressure 1: 128/70 Code: 8480-6 BMI: 31.3 Code: 90869-1 Heart Rate 1: 103 bpm Height: 5'7" SpO2: 98% Temperature: 36.7 (C) / 98.1 (F) Weight: 200 lbs 05/19/2017 Blood Pressure 1: 150/72 Code: 8480-6 04/16/2017 Blood Pressure 1: 146/88 Code: 8480-6 BMI: 31.3 Code: 27115-8 Heart Rate 1: 96 bpm Height: 5'7" SpO2: 94% Temperature: 37.2 (C) / 99.0 (F) Weight: 200 lbs 02/10/2017 Blood Pressure 1: 132/72 Code: 8480-6 BMI: 31.3 Code: 53485-5 Heart Rate 1: 99 bpm Height: 5'7" SpO2: 97% Weight: 200 lbs 02/02/2017 Blood Pressure 1: 140/68 Code: 8480-6 BMI: 31.4 Code: 27448-5 Heart Rate 1: 82 bpm Height: 5'7" SpO2: 97% Weight: 200 lbs 8 oz 01/27/2017 Blood Pressure 1: 142/80 Code: 8480-6 BMI: 32.2 Code: 39043-1 Height: 5'7" Temperature: 37.2 (C) / 98.9 (F) Weight: 205 lbs 8 oz 11/07/2016 Blood Pressure 1: 148/82 Code: 8480-6 BMI: 32.7 Code: 29636-3 Heart Rate 1: 106 bpm Height: 5'7" SpO2: 97% Weight: 209 lbs 03/26/2016 Blood Pressure 1: 140/86 Code: 8480-6 Heart Rate 1: 90 bpm Height: SpO2: 97% Weight: 12/13/2015 Blood Pressure 1: 132/72 Code: 8480-6 BMI: 31.2 Code: 66757-0 Heart Rate 1: 84 bpm Height: 5'7" SpO2: 98% Weight: 199 lbs 08/15/2015 Blood Pressure 1: 138/88 Code: 8480-6 BMI: 32.1 Code: 94647-3 Heart Rate 1: 94 bpm Height: 5'7" SpO2: 97% Weight: 205 lbs 06/13/2015 Blood Pressure 1: 188/88 Code: 8480-6 Blood Pressure 1: 146/78 Code: 8480-6 BMI: 32.6 Code: 85676-7 Heart Rate 1: 97 bpm Height: 5'7" SpO2: 98% Weight: 208 lbs 06/07/2015 Blood Pressure 1: 128/82 Code: 8480-6 BMI: 32.4 Code: 23668-9 Heart Rate 1: 80 bpm Height: 5'7" SpO2: 99% Weight: 207 lbs 03/13/2015 Blood Pressure 1: 124/70 Code: 8480-6 BMI: 31.6 Code: 79306-5 Heart Rate 1: 103 bpm Height: 5'7" Respiratory Rate: 18 bpm SpO2: 97% Temperature: 36.6 (C) / 97.8 (F) Weight: 202 lbs 12/07/2014 Blood Pressure 1: 140/80 Code: 8480-6 BMI: 32.3 Code: 34879-9 Heart Rate 1: 97 bpm Height: 5'7" SpO2: 99% Weight: 206 lbs 09/07/2014 Blood Pressure 1: 132/78 Code: 8480-6 BMI: 31.2 Code: 86519-9 Heart Rate 1: 92 bpm Height: 5'7" Weight: 199 lbs 08/07/2014 Blood Pressure 1: 140/84 Code: 8480-6 Heart Rate 1: 96 bpm Height: 5'7" Weight: Functional Status No Functional Status data History of Present Illness Symptom Name Status Result Effective Date Notes Quality insulin dependent 06/04/2018 None Quality chronic [...] with shunt placement- 6-12-15- Dr Ruvalcaba in [place] did surgery headache Onset and Resolution ongoing [...] data Encounters Encounter Performer Location Codes Date ([id number]) [id number] EST. PATIENT, LEVEL IV Diagnosis: Type 2 diabetes mellitus with hyperglycemia[ICD10: E11.65] Diagnosis: Mixed hyperlipidemia[ICD10: E78.2] Diagnosis: Other allergic rhinitis[ICD10: J30.89] Kaylan Dunham MD, [facility] CPT-4: 47159 06/04/2018 ([id number]) 73584 EST. PATIENT, LEVEL IV Diagnosis: Type 2 diabetes mellitus with hyperglycemia[ICD10: E11.65] Diagnosis: Mixed hyperlipidemia[ICD10: E78.2] Diagnosis: Essential (primary) hypertension[ICD10: I10] Kaylan Dunham MD, [facility] CPT-4: 72069 03/11/2018 25664 EST. PATIENT, LEVEL III Diagnosis: Paresthesia of skin[ICD10: R20.2] Aditi Dunham MD, [facility] CPT-4: 43111 02/17/2018 97330 EST. PATIENT, LEVEL IV Diagnosis: Pain in right shoulder[ICD10: M25.511] Diagnosis: Rash and other nonspecific skin eruption[ICD10: R21] Aditi Dunham MD, [facility] CPT-4: 94033 12/21/2017 00292 EST. PATIENT, LEVEL IV Diagnosis: Other acute sinusitis[ICD10: J01.80] Diagnosis: Other allergic rhinitis[ICD10: J30.89] Diagnosis: Localized edema[ICD10: R60.0] Aditi Dunham MD, [facility] CPT-4: 88409 11/30/2017 ([id number]) 62590 EST. PATIENT, LEVEL III Diagnosis: Acute recurrent maxillary sinusitis[ICD10: J01.01] Diagnosis: Cough[ICD10: R05] Tavia Dunham MD, [facility] CPT-4: 71535 05/28/2017 ([id number]) 25724 EST. PATIENT, LEVEL III Diagnosis: Acute laryngopharyngitis[ICD10: J06.0] Diagnosis: Cough[ICD10: R05] Tavia Dunham MD, [facility] CPT-4: 86578 04/16/2017 32075 EST. PATIENT, LEVEL III Diagnosis: Left lower quadrant pain[ICD10: R10.32] Aditi Dunham MD, [facility] CPT-4: 23570 02/10/2017 ([id number]) 93338 EST. PATIENT, LEVEL III Diagnosis: Pain in thoracic spine[ICD10: M54.6] Diagnosis: Other muscle spasm[ICD10: M62.838] Tavia Dunham MD, [facility] CPT- 4: 54021 02/02/2017 ([id number]) 19121 EST. PATIENT, LEVEL IV Diagnosis: Other acute pancreatitis without necrosis or infection[ICD10: K85.80] Diagnosis: Epigastric pain[ICD10: R10.13] Diagnosis: Type 2 diabetes mellitus without complications[ICD10: E11.9] Tavia Dunham MD, [facility] CPT-4: 36106 01/27/2017 46880 EST. PATIENT, LEVEL IV Diagnosis: Essential (primary) hypertension[ICD10: I10] Diagnosis: Type 1 diabetes mellitus without complications[ICD10: E10.9] Diagnosis: Other specified hypothyroidism[ICD10: E03.8] Diagnosis: Bilateral primary osteoarthritis of hip[ICD10: M16.0] Diagnosis: Actinic keratosis[ICD10: L57.0] Aditi Dunham MD, [facility] CPT-4: 97314 11/07/2016 62494 EST. PATIENT, LEVEL III Diagnosis: Other acute sinusitis[ICD10: J01.80] Diagnosis: Other allergic rhinitis[ICD10: J30.89] Diagnosis: Cough[ICD10: R05] Aditi Dunham MD, [facility] CPT-4: 95093 03/26/2016 ([id number]) 82805 EST. PATIENT, LEVEL IV Diagnosis: Essential (primary) hypertension[ICD10: I10] Diagnosis: Pure hyperglyceridemia[ICD10: E78.1] Tavia Dunham MD, [facility] CPT- 4: 11774 12/13/2015 ([id number]) 09943 EST. PATIENT, LEVEL III Diagnosis: Essential (primary) hypertension[ICD10: I10] Diagnosis: (Idiopathic) normal pressure hydrocephalus[ICD10: G91.2] Tavia Dunham MD, [facility] CPT-4: 45688 08/15/2015 67040 EST. PATIENT, LEVEL III Diagnosis: Other acute nonsuppurative otitis media, right ear[ICD10: H65.191] Diagnosis: Acute upper respiratory infection, unspecified[ICD10: J06.9] Aditi Dunham MD, [facility] CPT-4: 25210 06/13/2015 ([id number]) 55190 EST. PATIENT, LEVEL III Diagnosis: Acute recurrent maxillary sinusitis[ICD10: J01.01] Diagnosis: Allergic rhinitis due to pollen[ICD10: J30.1] Kaylan Dunham MD, [facility] CPT-4: 23910 06/07/2015 [id number] 53512 EST. PATIENT, LEVEL IV Diagnosis: (Idiopathic) normal pressure hydrocephalus[ICD10: G91.2] Diagnosis: Essential (primary) hypertension[ICD10: I10] Diagnosis: Dizziness and giddiness[ICD10: R42] Diagnosis: Nausea with vomiting, unspecified[ICD10: R11.2] Kaylan Dunham MD, [facility] CPT-4: 25298 03/13/2015 58983 EST. PATIENT, LEVEL III Diagnosis: Acute sinusitis, unspecified[ICD10: J01.90] Diagnosis: Allergic rhinitis, unspecified[ICD10: J30.9] Tavia Dunham MD, [facility] CPT-4: 86224 12/07/2014 ([id number] 02852 EST. PATIENT, LEVEL IV Diagnosis: ESSENTIAL HYPERTENSION[ICD9: 401.9] Diagnosis: DIABETES TYPE II[ICD9: 250.00] Diagnosis: NPH (normal pressure hydrocephalus)[ICD9: 331.5] Diagnosis: Hypertriglyceridemia[ICD9: 272.1] Kaylan Dunham MD, [facility] CPT- 4: 56202 09/07/2014 ([id number]) OFFICE/OUTPATIENT VISIT NEW Diagnosis: DIABETES TYPE II[ICD9: 250.00] Diagnosis: ESSENTIAL HYPERTENSION[ICD9: 401.9] Diagnosis: NPH (normal pressure hydrocephalus)[ICD9: 331.5] Diagnosis: Abnormal gait[ICD9: 781.2] Diagnosis: VITAMIN D DEFICIENCY[ICD9: 268.9] Tavia Dunham MD, [facility] CPT- 4: 89345 08/07/2014 Plan of Care Planned Activity Notes [...] allergy spray. 06/04/2018 Appointment: Kaylan Melendez WPtel: [phone] ([facility] min) [facility] 06/04/2018 Patient Education: Patient Medication Summary Completed 06/04/2018 Patient Education: Cholesterol Management Completed 06/04/2018 Patient Education: Patient Medication Summary Completed 05/25/2018 Care Plan: A1C HPLC LOINC : 13309-0 Pending 05/25/2018 Referral: Ammon Joiner Patient informed. [...] home. 03/11/2018 Appointment: Kaylan Melendez WPtel: [phone] [phone] [place] (30 min) Complex 03/11/2018 Patient Education: Patient Medication Summary Completed 03/11/2018 Patient Education: Cholesterol Management Completed 03/11/2018 Patient Education: Hypertension Completed 03/11/2018 Care Plan: Referral Order SNOMED-CT : [id number] Pending 03/11/2018 Visit Plan: Parasthesia - ongoing for about a month - will send RX and refer pt for EMG - The pt is to use prn antiinflammatories to manage acute pain. The patient is to call the office if the pain is worsening or does not improve. 02/17/2018 Appointment: Aditi Hamilton WPtel: [phone] [facility] [place] (15 min) Moderate 02/17/2018 Patient Education: Patient [...] warmth, discharge. 12/21/2017 Appointment: Aditi Hamilton WPtel: [facility] [place] (15 min) Moderate 12/21/2017 Patient Education: Patient Medication Summary Completed 12/21/2017 Appointment: Tavia Dunham WPtel: [phone] [facility] [place] (15 min) Moderate 12/02/2017 Visit Plan: Sinusitis [...] peripheral edema. 11/30/2017 Appointment: Aditi Hamilton WPtel: [facility]5 [facility] (15 min) Moderate 11/30/2017 Patient Education: Patient Medication Summary Completed 11/30/2017 Care Plan: Comp Metabolic Pending 11/30/2017 Care Plan: Cbc With Differential Pending 11/30/2017 Care Plan: %Hba1C LOINC : 29717-5 Pending 11/30/2017 Care Plan: Lipid Pending 11/30/2017 Care Plan: Tsh Pending 11/30/2017 Care Plan: Free T4 Pending 11/30/2017 Appointment: Tavia Dunham WPtel: [facility]5 [facility] (15 min) Moderate 11/26/2017 Appointment: Kaylan Melendez WPtel: [facility]5 [phone] [place] (30 min) Complex 08/13/2017 Appointment: Tavia Dunham WPtel: [facility]5 [facility] (15 min) Moderate 08/04/2017 Appointment: Tavia Dunham WPtel: [facility]5 [facility] (15 min) Moderate 07/20/2017 Visit Plan: Sinusitis [...] today 05/28/2017 Appointment: Tavia Dunham WPtel: [phone] [facility] [place] (30 min) Complex 05/28/2017 Patient [...] patient's pharmacy. 04/16/2017 Appointment: Tavia Dunham WPtel: [facility]0 [facility] (15 min) Moderate 04/16/2017 Patient Education: Patient [...] or concerns. 02/10/2017 Appointment: Aditi Hamilton WPtel: [facility] [place] (15 min) Moderate 02/10/2017 Patient Education: Patient Medication Summary Completed 02/10/2017 Patient Education: Obesity Completed 02/10/2017 Visit Plan: Pain in Thoracic spine with muscle spasm - ibuprofen 600mg three times daily x 3 days, rx for cyclobenzaprine. 02/02/2017 Appointment: Tavia Dunham WPtel: [facility]7 [facility] [place] (15 min) Moderate 02/02/2017 Patient Education: Patient [...] today. 01/27/2017 [facility]ment[phone] ([facility] min) Moderate 01/27/2017 Patient Education: [...] symptoms. 11/07/2016 Appointment: [facility] Hamilton [facility]el[facility] [phone] [facility] ([facility] min) Complex 11/07/2016 Patient Education: Patient [...] allergy spray. 03/26/2016 Appointment: Aditi Hamilton WPtel: [address] [place], [place] [address] (30 min) Complex 03/26/2016 Patient Education: Patient [...] medications. 12/13/2015 Appointment: [phone] ([facility] min) Moderate 12/13/2015 Patient Education: [...] - start on supplement. 08/07/2014 Appointment: [facility]ahm [facility]el[phone] [facility] [place] ([place] New Patient 08/07/2014 Patient [...] Vitamin D deficiency - start on supplement. . Sinusitis - Pt has acute infection [...]
--- OUTSIDE RECORDS SUMMARY | 2018-10-08 11:01 | XMS REPORT | CCD ---
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 Name Role Phone PP Unavailable CCM Unavailable Summary Purpose Interface Exchange Insurance Providers Payer name Policy type / Coverage type Covered green party ID Effective Begin Date Effective End Date Blue Cross Blue [facility] Blue Cross/Blue [facility] [id number] 2016 Unknown Family history Mother Diagnosis Age At Onset Cancer Unknown Arthritis Unknown Depression Unknown Hyperlipidemia Unknown Diabetes mellitus Type 2 Unknown Social History Social History Element Codes Description Effective Dates Marital status Unknown Yinka 08/07/2014 Number of children Unknown 0 08/07/2014 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/07/[address]: 597943729 Never smoker 08/07/[address]: 438882142 Never drinks alcohol 08/07/2014 Allergies, Adverse Reactions, Alerts Substance Reaction Codes Entered Date Inactivated Date Status CODEINE emesis RxNorm: 2670 08/07/2014 No Inactive Date Active Past Medical History Illness Codes Condition Status Onset Date Resolved Date Acute sinusitis, unspecified ICD-9: 461.9 ICD-10: J01.90 [...] ICD-9: 715.95 ICD-10: M16.0 Active 11/07/2016 Unknown Essential (primary) hypertension ICD-9: 401.9 ICD-10: I10 Active 08/06/2014 Unknown Other specified hypothyroidism ICD-9: 244.8 ICD-10: E03.8 Active 11/07/2016 Unknown Type 1 diabetes mellitus without complications ICD-9: 250.00 ICD-10: E10.9 Active 11/07/2016 Unknown Other acute sinusitis ICD- 9: 461.8 ICD-10: J01.80 Active 03/26/2016 Unknown Other allergic rhinitis ICD-9: 477.8 ICD-10: J30.89 Active 03/26/2016 Unknown Pure hyperglyceridemia ICD-9: 272.1 ICD-10: E78.1 Active 09/06/2014 Unknown (Idiopathic) normal pressure hydrocephalus ICD-9: 331.5 ICD-10: G91.2 Active 08/06/2014 Unknown Acute upper respiratory infection, unspecified ICD-9: 465.9 ICD-10: J06.9 Active 06/12/2015 Unknown Other acute nonsuppurative otitis media, right ear ICD-9: 381.00 ICD-10: H65.191 Active 06/12/2015 Unknown Acute recurrent maxillary sinusitis ICD-9: 461.0 ICD-10: J01.01 Active 06/06/2015 Unknown Allergic rhinitis due to pollen ICD-9: [...] Condition Codes Effective Dates Condition Status Acute sinusitis, unspecified ICD-9: 461.9 ICD-10: J01.90 [...] hip ICD-9: 715.95 ICD-10: M16.0 11/07/2016 Active Essential (primary) hypertension ICD-9: 401.9 ICD-10: I10 08/06/2014 Active Other specified hypothyroidism ICD-9: 244.8 ICD-10: E03.8 11/07/2016 Active Type 1 diabetes mellitus without complications ICD-9: 250.00 ICD-10: E10.9 11/07/2016 Active Other acute sinusitis ICD- 9: 461.8 ICD-10: J01.80 03/26/2016 Active Other allergic rhinitis ICD-9: 477.8 ICD-10: J30.89 03/26/2016 Active Pure hyperglyceridemia ICD-9: 272.1 ICD-10: E78.1 09/06/2014 Active (Idiopathic) normal pressure hydrocephalus ICD-9: 331.5 ICD-10: G91.2 08/06/2014 Active Acute upper respiratory infection, unspecified ICD-9: 465.9 ICD-10: J06.9 06/12/2015 Active Other acute nonsuppurative otitis media, right ear ICD-9: 381.00 ICD-10: H65.191 06/12/2015 Active Acute recurrent maxillary sinusitis ICD-9: 461.0 ICD-10: J01.01 06/06/2015 Active Allergic rhinitis due to pollen ICD-9: [...] Start Date Stop Date Status Fill Instructions cefdinir 300 mg capsule RxNorm: 240485 1 Capsule(s) PO BID 05/28/2017 06/03/2017 Active prednisone 20 mg tablet RxNorm: 428880 1 Tablet(s) PO daily 05/28/2017 06/01/2017 Inactive Kenalog 40 mg/mL suspension for injection RxNorm: 5315485 1 Milliliter(s) Inj 05/28/2017 05/28/2017 Inactive ceftriaxone 500 mg solution for injection RxNorm: 9390984 1 Inj 05/28/2017 05/28/2017 Inactive Keflex 500 mg capsule RxNorm: 993380 1 Capsule(s) PO TID 05/26/2017 06/01/2017 Inactive Keflex 500 mg capsule RxNorm: 840518 1 Capsule(s) PO TID 05/26/2017 05/25/2017 Inactive hydrocodone 10 mg-chlorpheniramine 8 mg/5 mL oral susp extend.rel 12hr RxNorm: 6080359 5-10 Milliliter(s) PO TID as needed 04/16/2017 No Stop Date Active Tussionex Pennkinetic ER 10 mg-8 mg/5 mL suspension,extended release RxNorm: 4628994 5 Milliliter(s) PO BID 04/16/2017 04/27/2017 Inactive Zithromax Z-Kulwant 250 mg tablet RxNorm: 482000 1 Tablet(s) PO UD 03/25/2017 04/15/2017 Inactive z pack as directed enalapril maleate 5 mg tablet RxNorm: 041176 TAKE ONE TABLET BY MOUTH ONCE DAILY 02/26/2017 No Stop Date Active Levemir FlexTouch 100 unit/mL (3 mL) subcutaneous insulin pen RxNorm: 726148 20 Unit(s) SQ BID 02/10/2017 07/11/2017 Active Zorvolex 35 mg capsule RxNorm: 4614150 1 Capsule(s) PO TID as needed 02/10/2017 No Stop Date Active valacyclovir 1 gram tablet RxNorm: 473226 1 Tablet(s) PO TID 02/10/2017 02/16/2017 Inactive Levemir FlexTouch 100 unit/mL (3 mL) subcutaneous insulin pen RxNorm: 056984 20 Unit(s) SQ BID 02/04/2017 02/09/2017 Inactive cyclobenzaprine 5 mg tablet RxNorm: 414831 1 Tablet(s) PO qhs x 3 nights and TID as needed muscle spasms 02/02/2017 No Stop Date Active levothyroxine 125 mcg tablet RxNorm: 811100 TAKE ONE TABLET BY MOUTH ONCE DAILY 12/08/2016 06/05/2017 Active venlafaxine ER 150 mg capsule,extended release 24 hr RxNorm: 669317 TAKE ONE CAPSULE BY MOUTH ONCE DAILY 12/01/2016 05/29/2017 Inactive Zorvolex 35 mg capsule RxNorm: 1378457 1 Capsule(s) PO TID as needed do not take meloxicam at the same time 11/07/2016 No Stop Date Active enalapril maleate 5 mg tablet RxNorm: 123018 TAKE ONE TABLET BY MOUTH ONCE DAILY 10/31/2016 12/29/2016 Inactive meloxicam 15 mg tablet RxNorm: 291251 TAKE ONE TABLET BY MOUTH ONCE DAILY 10/30/2016 04/27/2017 Inactive meloxicam 15 mg tablet RxNorm: 704136 TAKE ONE TABLET BY MOUTH ONCE DAILY 10/24/2016 10/29/2016 Inactive enalapril maleate 5 mg tablet RxNorm: 504779 TAKE ONE TABLET BY MOUTH ONCE DAILY 10/24/2016 10/30/2016 Inactive venlafaxine ER 150 mg capsule,extended release 24 hr RxNorm: 928430 TAKE ONE CAPSULE BY MOUTH ONCE DAILY 06/16/2016 11/12/2016 Inactive meloxicam 15 mg tablet RxNorm: 104812 TAKE ONE TABLET BY MOUTH ONCE DAILY 06/09/2016 10/06/2016 Inactive enalapril maleate 5 mg tablet RxNorm: 333452 TAKE ONE TABLET BY MOUTH ONCE DAILY 06/02/2016 09/29/2016 Inactive Zithromax Z-Kulwant 250 mg tablet RxNorm: 381881 1 Tablet(s) PO UD 05/21/2016 06/15/2016 Inactive levothyroxine 125 mcg tablet RxNorm: 305350 Tablet(s) TAKE ONE TABLET BY MOUTH ONCE DAILY 04/15/2016 10/11/2016 Inactive Levaquin 500 mg tablet RxNorm: 038530 1 Tablet(s) PO daily 04/03/2016 04/09/2016 Inactive Levaquin 500 mg tablet RxNorm: 159248 1 Tablet(s) PO daily 04/03/2016 04/02/2016 Inactive prednisone 20 mg tablet RxNorm: 208552 2 Tablet(s) PO daily 03/28/2016 04/01/2016 Inactive Zithromax Z-Kulwant 250 mg tablet RxNorm: 630635 1 Tablet(s) PO UD 03/26/2016 03/30/2016 Inactive zpack Kenalog 40 mg/mL suspension for injection RxNorm: 4317343 Milliliter(s) Inj 03/26/2016 03/26/2016 Inactive Zofran ODT 4 mg disintegrating tablet RxNorm: 645390 DISSOLVE ONE TABLET IN MOUTH EVERY 6 HOURS NEEDED 02/22/2016 02/29/2016 Inactive venlafaxine ER 150 mg capsule,extended release 24 hr RxNorm: 900194 TAKE ONE CAPSULE BY MOUTH ONCE DAILY 02/18/2016 06/15/2016 Inactive meloxicam 15 mg tablet RxNorm: 661799 TAKE ONE TABLET BY MOUTH ONCE DAILY 02/04/2016 06/02/2016 Inactive aspirin 81 mg chewable tablet RxNorm: 929859 1 Tablet(s) PO daily 12/13/2015 12/06/2016 Inactive biotin 2,500 mcg tablet RxNorm: 725794 1 Tablet(s) PO daily 12/13/2015 09/07/2016 Inactive hydrochlorothiazide 25 mg tablet RxNorm: 460755 1 Tablet(s) PO daily 12/13/2015 04/10/2016 Inactive enalapril maleate 5 mg tablet RxNorm: 514926 TAKE ONE TABLET BY MOUTH ONCE DAILY 11/22/2015 05/19/2016 Inactive venlafaxine ER 150 mg capsule,extended release 24 hr RxNorm: 608002 TAKE ONE CAPSULE BY MOUTH ONCE DAILY 11/14/2015 02/11/2016 Inactive levothyroxine 125 mcg tablet RxNorm: 690356 Tablet(s) TAKE ONE TABLET BY MOUTH ONCE DAILY 11/06/2015 04/14/2016 Inactive levothyroxine 125 mcg tablet RxNorm: 033270 Tablet(s) TAKE ONE TABLET BY MOUTH ONCE DAILY 08/06/2015 11/03/2015 Inactive meclizine 25 mg tablet RxNorm: 888096 1/2-1 Tablet(s) PO Q6 as needed 07/16/2015 No Stop Date Active Flonase Allergy Relief 50 mcg/actuation nasal spray,suspension RxNorm: 1 [place] NASAL daily 06/13/2015 No Stop Date Active prednisone 20 mg tablet RxNorm: 475694 2 Tablet(s) PO daily 06/13/2015 06/17/2015 Inactive Augmentin 875 mg-125 mg tablet RxNorm: 536139 1 Tablet(s) PO BID 06/13/2015 06/19/2015 Inactive Zithromax Z-Kulwant 250 mg tablet RxNorm: 305133 1 Tablet(s) PO UD 06/07/2015 06/11/2015 Inactive zpashlomo Kenalog 40 mg/mL suspension for injection RxNorm: 0600142 Milliliter(s) Inj 06/07/2015 06/07/2015 Inactive venlafaxine ER 150 mg capsule,extended release 24 hr RxNorm: 321160 TAKE ONE CAPSULE BY MOUTH ONCE DAILY 05/14/2015 11/09/2015 Inactive Augmentin 500 mg-125 mg tablet RxNorm: 185940 1 Tablet(s) PO TID 04/25/2015 05/04/2015 Inactive Augmentin 500 mg-125 mg tablet RxNorm: 670184 1 Tablet(s) PO TID 04/25/2015 04/24/2015 Inactive pravastatin 10 mg tablet RxNorm: 022123 1 Tablet(s) PO daily take with coenzyme q 10 daily 03/21/2015 07/18/2015 Inactive DC crestor pravastatin 10 mg tablet RxNorm: 985935 1 Tablet(s) PO daily take with coenzyme q 10 daily 03/21/2015 03/20/2015 Inactive DC crestor Zofran ODT 4 mg disintegrating tablet RxNorm: 377829 1 Tablet(s) PO Q6 PRN 03/13/2015 02/21/2016 Inactive levothyroxine 125 mcg tablet RxNorm: 219988 TAKE ONE TABLET BY MOUTH ONCE DAILY 02/13/2015 08/05/2015 Inactive meloxicam 15 mg tablet RxNorm: 086784 1 Tablet(s) PO daily 01/28/2015 01/22/2016 Inactive Zofran 4 mg tablet RxNorm: 047241 1 Tablet(s) PO Q6-8H as needed nausea 01/24/2015 No Stop Date Active Trulicity 1.5 mg/0.5 mL subcutaneous pen injector RxNorm: 0774267 0.75mg Milliliter(s) SQ QW 01/10/2015 No Stop Date Active venlafaxine ER 150 mg capsule,extended release 24 hr RxNorm: 835489 1 Capsule(s) PO daily 01/10/2015 05/09/2015 Inactive enalapril maleate 5 mg tablet RxNorm: 265679 1 Tablet(s) PO daily 01/04/2015 07/02/2015 Inactive amoxicillin 500 mg tablet RxNorm: 643824 1 Tablet(s) PO BID 12/07/2014 12/06/2014 Inactive Probiotic & Acidophilus 300 million cell-250 mg capsule RxNorm: 1 Capsule(s) PO BID 12/07/2014 12/16/2014 Inactive amoxicillin 500 mg tablet RxNorm: 408814 1 Tablet(s) PO BID 12/07/2014 12/16/2014 Inactive Kenalog 40 mg/mL suspension for injection RxNorm: 6062986 1 Milliliter(s) Inj 12/07/2014 12/07/2014 Inactive meloxicam 15 mg tablet RxNorm: 781265 1 Tablet(s) PO daily 10/24/2014 10/23/2014 Inactive meloxicam 15 mg tablet RxNorm: 613348 1 Tablet(s) PO daily 10/24/2014 01/27/2015 Inactive azithromycin 500 mg tablet RxNorm: 995804 1 Tablet(s) PO daily 10/11/2014 10/15/2014 Inactive azithromycin 500 mg tablet RxNorm: 423080 1 Tablet(s) PO daily 10/11/2014 10/10/2014 Inactive levothyroxine 125 mcg tablet RxNorm: 206245 1 Tablet(s) PO daily 10/06/2014 02/02/2015 Inactive enalapril maleate 5 mg tablet RxNorm: 678884 1 Tablet(s) PO daily 08/29/2014 12/26/2014 Inactive enalapril maleate 5 mg tablet RxNorm: 836121 1 Tablet(s) PO daily 08/25/2014 08/28/2014 Inactive Medroxy oral RxNorm: 1597951 oral No Start Date Active Vitamin D3 5,000 unit tablet RxNorm: 036729 1 Tablet(s) PO daily No Start Date Active fluconazole 200 mg tablet RxNorm: 331991 Tablet(s) PO No Start Date Active estradiol 2 mg tablet RxNorm: 522624 1 Tablet(s) PO daily No Start Date Active fenofibrate nanocrystallized 145 mg tablet RxNorm: 708086 1 Tablet(s) PO daily No Start Date Active hydrocodone 5 mg-acetaminophen 325 mg tablet RxNorm: 818816 1-2 Tablet(s) PO Q4-6H as needed No Start Date Active enalapril maleate 5 mg tablet RxNorm: 384147 1 Tablet(s) PO daily No Start Date 08/24/2014 Inactive glimepiride 4 mg tablet RxNorm: 275319 1 Tablet(s) PO daily No Start Date 01/26/2017 Inactive meclizine 25 mg tablet RxNorm: 769949 1/2-1 Tablet(s) PO Q6 as needed No Start Date 07/15/2015 Inactive Trulicity 0.75 mg/0.5 mL subcutaneous pen injector RxNorm: 4688574 0.75mg Milliliter(s) SQ QW No Start Date 01/09/2015 Inactive metformin 1,000 mg tablet RxNorm: 006891 Tablet(s) PO BID No Start Date 01/26/2017 Inactive venlafaxine ER 150 mg capsule,extended release 24 hr RxNorm: 762465 1 Capsule(s) PO daily No Start Date 01/09/2015 Inactive meloxicam 15 mg tablet RxNorm: 558054 1 Tablet(s) PO daily No Start Date 10/23/2014 Inactive levothyroxine 125 mcg tablet RxNorm: 151625 1 Tablet(s) PO daily No Start Date 10/05/2014 Inactive Levemir FlexTouch 100 unit/mL (3 mL) subcutaneous insulin pen RxNorm: 767305 15 Unit(s) SQ daily No Start Date 02/03/2017 Inactive Zithromax Z-Kulwant 250 mg tablet RxNorm: 332955 1 Tablet(s) PO UD No Start Date 05/20/2016 Inactive Fish Oil 1,000 mg capsule RxNorm: 1 Capsule(s) PO BID No Start Date 11/04/2016 Inactive Zofran 4 mg tablet RxNorm: 863177 1 Tablet(s) PO Q6-8H as needed nausea No Start Date 01/23/2015 Inactive Crestor 10 mg tablet RxNorm: 733119 1 Tablet(s) PO daily No Start Date 03/20/2015 Inactive Medication Administered Medication Codes Instructions Start Date Status Kenalog 40 mg/mL suspension for injection RxNorm: 2223412 1Milliliter 05/28/2017 No longer Active ceftriaxone 500 mg solution for injection RxNorm: 4893994 1 05/28/2017 No longer Active Kenalog 40 mg/mL suspension for injection RxNorm: 7479851 Milliliter 03/26/2016 No longer Active Kenalog 40 mg/mL suspension for injection RxNorm: 5297195 Milliliter 06/07/2015 No longer Active Kenalog 40 mg/mL suspension for injection RxNorm: 3975642 1Milliliter 12/07/2014 No longer Active Immunizations No Immunization data Assessments Condition Codes Effective Dates Acute recurrent maxillary sinusitis ICD-10: J01.01 ICD-9: [...] specified hypothyroidism ICD-10: E03.8 ICD-9: 244.8 11/07/2016 Essential (primary) hypertension ICD-10: I10 ICD-9: 401.9 11/07/2016 Actinic keratosis ICD-10: L57.0 ICD-9: 702.0 11/07/2016 Bilateral primary osteoarthritis of hip ICD-10: M16.0 ICD-9: 715.95 11/07/2016 Type 1 diabetes mellitus without complications ICD-10: E10.9 ICD-9: 250.00 11/07/2016 Other allergic rhinitis ICD-10: J30.89 ICD-9: 477.8 03/26/2016 Other acute sinusitis ICD-10: J01.80 ICD-9: 461.8 03/26/2016 Pure hyperglyceridemia ICD-10: E78.1 ICD-9: 272.1 12/13/2015 [...] Visit Reason For Visit Effective Dates Notes sinus congestion 05/28/2017 headache 05/19/2017 cough 04/16/2017 flank pain 02/10/2017 back pain 02/02/2017 Hospital Follow Up 01/27/2017 hypertension 11/07/2016 cough 03/26/2016 hypertension 12/13/2015 Hospital Follow Up 08/15/2015 cough 06/13/2015 earache 06/07/2015 hypertension 03/13/2015 with nausea and vomiting headache 12/07/2014 headache 09/07/2014 headache 08/07/2014 Results Observation Observation Code Item Item Code Result Date CHEM 14 [id number] AST TNP:Lab Request 01/27/2017 CHEM 14 [id number] ALT TNP:Lab Request 01/27/2017 CHEM 14 [id number] BUN TNP:Lab Request 01/27/2017 CHEM 14 [id number] ALBUMIN TNP:Lab Request 01/27/2017 CHEM 14 [id number] CHLORIDE TNP:Lab Request 01/27/2017 CHEM 14 [id number] Bili Total TNP:Lab Request 01/27/2017 CHEM 14 [id number] ALK PHOS TNP:Lab Request 01/27/2017 CHEM 14 [id number] SODIUM TNP:Lab Request 01/27/2017 CHEM 14 [id number] CREATININE TNP:Lab Request 01/27/2017 CHEM 14 [id number] CALCIUM TNP:Lab Request 01/27/2017 CHEM 14 [id number] POTASSIUM TNP:Lab Request 01/27/2017 CHEM 14 [id number] TOTAL PROTEIN TNP:Lab Request 01/27/2017 CHEM 14 [id number] GLUCOSE TNP:Lab Request 01/27/2017 CHEM 14 [id number] Bicarbonate TNP:Lab Request 01/27/2017 CHEM 14 [id number] AGAP TNP:Lab Request 01/27/2017 AMYLASE [id number] Amylase Lvl TNP:Lab Request 01/27/2017 LIPID GRP [id number] CHOLESTEROL 273 mg/dL 2016 LIPID GRP [id number] Triglyceride 583 mg/dL 2016 LIPID GRP HDL CHOLESTEROL 48 mg/dL 2016 LIPID GRP 8337716 Chol/HDL Ratio 5.69 ratio 2016 LIPID GRP 1309284 NON-HDL Chol 225 mg/dL 2016 LIPID GRP 3061586 LDL Cholesterol N/A Trig >400 2016 A1C HPLC 0819476 Hgb A1c 26885-9 7.3 % 2016 TSH 9770304 TSH 1.340 uIU/mL 2016 FREE T4 3693518 T4 Free 1.60 ng/dL 2016 MEAN GLUC 3643450 Calc Mean Gluc 163 mg/dL 2016 GFR CALC 7933737 GFR Non Afr Amr >60 mL/min 2016 GFR CALC 6344056 GFR Afr Amr >60 mL/min 2016 CBC 1919134 WBC 8.1 10e9/L 2016 CBC 7828928 RBC 4.41 10e12/L 2016 CBC 3663194 HEMOGLOBIN 13.2 g/dL 2016 CBC 5724083 HEMATOCRIT 39.6 % 2016 CBC 0381182 MCV 89.8 fL 2016 CBC 7222748 MCH 29.9 pg 2016 CBC 2323218 MCHC 33.3 g/dL 2016 CBC 3373100 PLATELET COUNT 298 10e9/L 2016 CBC 9911604 Mean Plt Volume 10.5 fL 2016 CBC 0385154 Neut Auto 61.3 % 2016 CBC 9183546 Lymph Auto 26.3 % 2016 CBC 3844720 Long Auto 7.7 % 2016 CBC 6091920 RDW 13.6 % 2016 CBC 8854091 Eos Auto 4.2 % 2016 CBC 8332967 Baso Auto 0.5 % 2016 CBC 9796160 Neutrophil Abs 4.97 10e9/L 2016 CBC 5106739 Lymphocyte Abs 2.13 10e9/L 2016 CBC 5227928 Monocyte Abs 0.62 10e9/L 2016 CBC 7321680 Eosinophil Abs 0.34 10e9/L 2016 CBC 2499221 Basophil Abs 0.04 10e9/L 2016 CBC 3380419 RDW-SD 44.1 fL 2016 CHEM 14 6856862 AST 19 U/L 2016 CHEM 14 8962668 ALT 26 U/L 2016 CHEM 14 8890443 BUN 20 mg/dL 2016 CHEM 14 9624221 ALBUMIN 4.1 g/dL 2016 CHEM 14 9672058 CHLORIDE 99 mmol/L 2016 CHEM 14 4628825 Bili Total 0.3 mg/dL 2016 CHEM 14 6772965 ALK PHOS 55 U/L 2016 CHEM 14 5465988 SODIUM 135 mmol/L 2016 CHEM 14 2181988 CREATININE 0.87 mg/dL 2016 CHEM 14 6009266 CALCIUM 9.3 mg/dL 2016 CHEM 14 4767986 POTASSIUM 4.0 mmol/L 2016 CHEM 14 1097642 TOTAL PROTEIN 7.0 g/dL 2016 CHEM 14 5780750 GLUCOSE 149 mg/dL 2016 CHEM 14 6274490 Bicarbonate 26 mmol/L 2016 CHEM 14 0863001 AGAP 10 mmol/L 2016 Review of Systems System Result Effective Dates Constitutional recent illness 05/28/2017 Constitutional No chills [...] Date TRIAMCINOLONE ACET INJ NOS CPT-4: J3301 05/28/2017 ROCEPHIN, PER 250 MG CPT- 4: J0696 05/28/2017 THER/PROPH/DIAG INJ SC/IM CPT-4: 09700 05/19/2017 KETOROLAC TROMETHAMINE INJ CPT-4: J1885 05/19/2017 TRIAMCINOLONE ACET INJ NOS CPT-4: J3301 03/26/2016 TRIAMCINOLONE ACET INJ NOS CPT-4: J3301 06/07/2015 THER/PROPH/DIAG INJ SC/IM CPT-4: 92233 12/07/2014 TRIAMCINOLONE ACET INJ NOS CPT-4: J3301 12/07/2014 Vital Signs Date Vital 05/28/2017 Blood Pressure 1: 128/70 Code: 8480-6 BMI: 31.3 Code: 57986-8 Heart Rate 1: 103 bpm Height: 5'7" SpO2: 98% Temperature: 36.7 (C) / 98.1 (F) Weight: 200 lbs 05/19/2017 Blood Pressure 1: 150/72 Code: 8480-6 04/16/2017 Blood Pressure 1: 146/88 Code: 8480-6 BMI: 31.3 Code: 73744-5 Heart Rate 1: 96 bpm Height: 5'7" SpO2: 94% Temperature: 37.2 (C) / 99.0 (F) Weight: 200 lbs 02/10/2017 Blood Pressure 1: 132/72 Code: 8480-6 BMI: 31.3 Code: 49284-9 Heart Rate 1: 99 bpm Height: 5'7" SpO2: 97% Weight: 200 lbs 02/02/2017 Blood Pressure 1: 140/68 Code: 8480-6 BMI: 31.4 Code: 08024-4 Heart Rate 1: 82 bpm Height: 5'7" SpO2: 97% Weight: 200 lbs 8 oz 01/27/2017 Blood Pressure 1: 142/80 Code: 8480-6 BMI: 32.2 Code: 80414-5 Height: 5'7" Temperature: 37.2 (C) / 98.9 (F) Weight: 205 lbs 8 oz 11/07/2016 Blood Pressure 1: 148/82 Code: 8480-6 BMI: 32.7 Code: 84568-2 Heart Rate 1: 106 bpm Height: 5'7" SpO2: 97% Weight: 209 lbs 03/26/2016 Blood Pressure 1: 140/86 Code: 8480-6 Heart Rate 1: 90 bpm Height: SpO2: 97% Weight: 12/13/2015 Blood Pressure 1: 132/72 Code: 8480-6 BMI: 31.2 Code: 61331-8 Heart Rate 1: 84 bpm Height: 5'7" SpO2: 98% Weight: 199 lbs 08/15/2015 Blood Pressure 1: 138/88 Code: 8480-6 BMI: 32.1 Code: 05040-0 Heart Rate 1: 94 bpm Height: 5'7" SpO2: 97% Weight: 205 lbs 06/13/2015 Blood Pressure 1: 146/78 Code: 8480-6 Blood Pressure 1: 188/88 Code: 8480-6 BMI: 32.6 Code: 55933-9 Heart Rate 1: 97 bpm Height: 5'7" SpO2: 98% Weight: 208 lbs 06/07/2015 Blood Pressure 1: 128/82 Code: 8480-6 BMI: 32.4 Code: 51730-1 Heart Rate 1: 80 bpm Height: 5'7" SpO2: 99% Weight: 207 lbs 03/13/2015 Blood Pressure 1: 124/70 Code: 8480-6 BMI: 31.6 Code: 96196-6 Heart Rate 1: 103 bpm Height: 5'7" Respiratory Rate: 18 bpm SpO2: 97% Temperature: 36.6 (C) / 97.8 (F) Weight: 202 lbs 12/07/2014 Blood Pressure 1: 140/80 Code: 8480-6 BMI: 32.3 Code: 31860-9 Heart Rate 1: 97 bpm Height: 5'7" SpO2: 99% Weight: 206 lbs 09/07/2014 Blood Pressure 1: 132/78 Code: 8480-6 BMI: 31.2 Code: 60488-7 Heart Rate 1: 92 bpm Height: 5'7" Weight: 199 lbs 08/07/2014 Blood Pressure 1: 140/84 Code: 8480-6 Heart Rate 1: 96 bpm Height: 5'7" Weight: Functional Status No Functional Status data History of Present Illness Symptom Name Status Result Effective Date Notes headache Location diffusely 05/28/2017 None headache Quality [...] with shunt placement- 6-12-15- Dr Ruvalcaba in [place] did surgery headache Onset and Resolution ongoing [...] Encounters Encounter Performer Location Codes Date ( [id number] EST. PATIENT, LEVEL III Diagnosis: Acute recurrent maxillary sinusitis[ICD10: J01.01] Diagnosis: Cough[ICD10: R05] [facility] CPT-4: 58944 05/28/2017 ([id number]) 36425 EST. PATIENT, LEVEL III Diagnosis: Acute laryngopharyngitis[ICD10: J06.0] Diagnosis: Cough[ICD10: R05] [facility] CPT-4: 19273 04/16/2017 [id number] EST. PATIENT, LEVEL III Diagnosis: Left lower quadrant pain[ICD10: R10.32] [facility] CPT-4: 57754 02/10/2017 ([id number]) 58515 EST. PATIENT, LEVEL III Diagnosis: Pain in thoracic spine[ICD10: M54.6] Diagnosis: Other muscle spasm[ICD10: M62.838] Tavia [facility] MD, [facility] CPT- 4: 15891 02/02/2017 ([id number]) 05937 EST. PATIENT, LEVEL IV Diagnosis: Other acute pancreatitis without necrosis or infection[ICD10: K85.80] Diagnosis: Epigastric pain[ICD10: R10.13] Diagnosis: Type 2 diabetes mellitus without complications[ICD10: E11.9] Tavia Dunham MD, [facility] CPT-4: 27710 01/27/2017 [id number] EST. PATIENT, LEVEL IV Diagnosis: Essential (primary) hypertension[ICD10: I10] Diagnosis: Type 1 diabetes mellitus without complications[ICD10: E10.9] Diagnosis: Other specified hypothyroidism[ICD10: E03.8] Diagnosis: Bilateral primary osteoarthritis of hip[ICD10: M16.0] Diagnosis: Actinic keratosis[ICD10: L57.0] Aditi Dunham MD, [facility] CPT-4: 99056 11/07/2016 [id number] EST. PATIENT, LEVEL III Diagnosis: Other acute sinusitis[ICD10: J01.80] Diagnosis: Other allergic rhinitis[ICD10: J30.89] Diagnosis: Cough[ICD10: R05] Aditi Dunham MD, [facility] CPT-4: 96018 03/26/2016 ([id number]) 14589 EST. PATIENT, LEVEL IV Diagnosis: Essential (primary) hypertension[ICD10: I10] Diagnosis: Pure hyperglyceridemia[ICD10: E78.1] Tavia Dunham MD, [facility] CPT- 4: 42912 12/13/2015 ([id number]) 40576 EST. PATIENT, LEVEL III Diagnosis: Essential (primary) hypertension[ICD10: I10] Diagnosis: (Idiopathic) normal pressure hydrocephalus[ICD10: G91.2] Tavia Dunham MD, [facility] CPT-4: 38177 08/15/2015 [id number] EST. PATIENT, LEVEL III Diagnosis: Other acute nonsuppurative otitis media, right ear[ICD10: H65.191] Diagnosis: Acute upper respiratory infection, unspecified[ICD10: J06.9] Aditi Dunham MD, [facility] CPT-4: 31674 06/13/2015 [id number]) 08225 EST. PATIENT, LEVEL III Diagnosis: Acute recurrent maxillary sinusitis[ICD10: J01.01] Diagnosis: Allergic rhinitis due to pollen[ICD10: J30.1] Kaylan Dunham MD, [facility] CPT-4: 05404 06/07/2015 ([id number]) 21586 EST. PATIENT, LEVEL IV Diagnosis: (Idiopathic) normal pressure hydrocephalus[ICD10: G91.2] Diagnosis: Essential (primary) hypertension[ICD10: I10] Diagnosis: Dizziness and giddiness[ICD10: R42] Diagnosis: Nausea with vomiting, unspecified[ICD10: R11.2] Kaylan Dunham MD, [facility] CPT-4: 31774 03/13/2015 13974 EST. PATIENT, LEVEL III Diagnosis: Acute sinusitis, unspecified[ICD10: J01.90] Diagnosis: Allergic rhinitis, unspecified[ICD10: J30.9] Tavia [facility] MD, [facility] CPT-4: 38682 12/07/[id number]) [id number] EST. PATIENT, LEVEL IV Diagnosis: ESSENTIAL HYPERTENSION[ICD9: 401.9] Diagnosis: DIABETES TYPE II[ICD9: 250.00] Diagnosis: NPH (normal pressure hydrocephalus)[ICD9: 331.5] Diagnosis: Hypertriglyceridemia[ICD9: 272.1] Kaylan Dunham MD, [facility] CPT- 4: 17953 09/07/2014 ([id number]) OFFICE/OUTPATIENT VISIT NEW Diagnosis: DIABETES TYPE II[ICD9: 250.00] Diagnosis: ESSENTIAL HYPERTENSION[ICD9: 401.9] Diagnosis: NPH (normal pressure hydrocephalus)[ICD9: 331.5] Diagnosis: Abnormal gait[ICD9: 781.2] Diagnosis: VITAMIN D DEFICIENCY[ICD9: 268.9] Tavia Dunham MD, [facility] CPT- 4: 42478 08/07/2014 Plan of Care Planned Activity Notes Codes Status Date Visit Plan: Sinusitis - Pt has acute [...] shot today 05/28/2017 Appointment: Tavia Dunham WPtel: [facility] (30 min) Complex 05/28/2017 Patient Education: Patient [...] patient's pharmacy. 04/16/2017 Appointment: [facility] Dun[facility]el[facility] (15 min) Moderate 04/16/2017 Patient Education: Patient [...] or concerns. 02/10/2017 Appointment: Aditi Hamilton [facility]Ptel[facility] ([facility] min) Moderate 02/10/2017 Patient Education: Patient Medication Summary Completed 02/10/2017 Patient Education: Obesity Completed 02/10/2017 Visit Plan: Pain in Thoracic spine with muscle spasm - ibuprofen 600mg three times daily x 3 days, rx for cyclobenzaprine. 02/02/2017 Appointment: Tavia Dunham [facility]Ptel[facility] (15 min) Moderate 02/02/2017 Patient Education: [...] today. 01/27/2017 Appointment: [facility] [address] [facility] (15 min) Moderate 01/27/2017 Patient Education: [...] symptoms. 11/07/2016 Appointment: [facility] Hamilton [facility]el[facility] [phone] [facility] [place] (30 min) Complex 11/07/2016 Patient Education: Patient [...] allergy spray. 03/26/2016 Appointment: Aditi Hamilton WPtel: [address] [place], [place] [address] (30 min) Complex 03/26/2016 Patient Education: Patient [...] medications. 12/13/2015 Appointment: [facility] [address] [facility] (15 min) Moderate 12/13/2015 Patient Education: [...] on supplement. 08/07/2014 Appointment: Tavia Dunham WPtel[facility] [place] New Patient 08/07/2014 Patient Education: Patient Medication Summary Completed 08/07/2014 Patient Education: Hypertension Completed 08/07/2014 Instructions Comment . Acute Sinusitis - Tenderness of frontal and maxillary sinuses. Nasal congestion. Will prescribe Amoxicillin 500 mg PO BID for 10 days. Kenalog shot today. Follow up if symptoms do not improve, or get worse, or with any other concern. OK TO INCREASE FISH OIL TO TWICE [...] shunt placement by Dr Ruvalcaba-symptoms significantly improved vitamin D 2000 to 5000 units daily. [...] daily x 3 days, rx for cyclobenzaprine. . Otitis Media - discussed the diagnosis [...]
--- OUTSIDE RECORDS SUMMARY | 2018-10-08 11:03 | XMS REPORT | CCD ---
Author Author Tavia Dunham Organization [facility] Address [address] [place] [address] Phone Care Team Providers Care Hospice Spiritual Care Coordinator Name Role Phone PP Unavailable CCM Unavailable Summary Purpose Interface Exchange Insurance Providers Payer name Policy type / Coverage type Covered libertarian ID Effective Begin Date Effective End Date [employer] [facility] [employer] [id number] Unknown Unknown [employer]/Blue Shield [id number] Unknown Unknown Family history Mother Diagnosis Age At Onset Cancer Unknown Arthritis Unknown Depression Unknown Hyperlipidemia Unknown Diabetes mellitus Type 2 Unknown Social History Social History Element Codes Description Effective Dates Marital status Unknown Yinka 08/07/2014 Number of children Unknown 0 08/07/2014 Employment 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[employer] 08/07/[address]: 785701209 Never smoker 08/07/[address]: 222042168 Never drinks alcohol 08/07/2014 Allergies, Adverse Reactions, Alerts Substance Reaction Codes Entered Date Inactivated Date Status CODEINE emesis RxNorm: 2670 08/07/2014 No Inactive Date Active Past Medical History Illness Codes Condition Status Onset Date Resolved Date Cough ICD-9: 786.2 ICD-10: R05 Active 03/26/2016 Unknown Other acute sinusitis ICD- 9: 461.8 ICD-10: J01.80 Active 03/26/2016 Unknown Other allergic rhinitis ICD-9: 477.8 ICD-10: J30.89 Active 03/26/2016 Unknown Essential (primary) hypertension ICD-9: 401.9 ICD-10: I10 Active 08/06/2014 Unknown Pure hyperglyceridemia ICD-9: 272.1 ICD-10: E78.1 [...] ICD-9: 787.01 ICD-10: R11.2 Active 03/12/2015 Unknown Acute sinusitis, unspecified ICD-9: 461.9 ICD-10: J01.90 Active 12/06/2014 Unknown Allergic rhinitis, unspecified ICD-9: 477.9 ICD-10: [...] Problems Condition Codes Effective Dates Condition Status Cough ICD-9: 786.2 ICD-10: R05 03/26/2016 Active Other acute sinusitis ICD- 9: 461.8 ICD-10: J01.80 03/26/2016 Active Other allergic rhinitis ICD-9: 477.8 ICD-10: J30.89 03/26/2016 Active Essential (primary) hypertension ICD-9: 401.9 ICD-10: I10 08/06/2014 Active Pure hyperglyceridemia ICD-9: 272.1 ICD-10: E78.1 [...] unspecified ICD-9: 787.01 ICD-10: R11.2 03/12/2015 Active Acute sinusitis, unspecified ICD-9: 461.9 ICD-10: J01.90 12/06/2014 Active Allergic rhinitis, unspecified ICD-9: 477.9 ICD-10: [...] Start Date Stop Date Status Fill Instructions venlafaxine ER 150 mg capsule,extended release 24 hr RxNorm: 572396 TAKE ONE CAPSULE BY MOUTH ONCE DAILY 06/16/2016 11/12/2016 Active meloxicam 15 mg tablet RxNorm: 228724 TAKE ONE TABLET BY MOUTH ONCE DAILY 06/09/2016 10/06/2016 Active enalapril maleate 5 mg tablet RxNorm: 850588 TAKE ONE TABLET BY MOUTH ONCE DAILY 06/02/2016 09/29/2016 Active Zithromax Z-Kulwant 250 mg tablet RxNorm: 579082 1 Tablet(s) PO UD 05/21/2016 06/15/2016 Inactive levothyroxine 125 mcg tablet RxNorm: 066889 Tablet(s) TAKE ONE TABLET BY MOUTH ONCE DAILY 04/15/2016 10/11/2016 Active Levaquin 500 mg tablet RxNorm: 955648 1 Tablet(s) PO daily 04/03/2016 04/09/2016 Inactive Levaquin 500 mg tablet RxNorm: 300896 1 Tablet(s) PO daily 04/03/2016 04/02/2016 Inactive prednisone 20 mg tablet RxNorm: 056741 2 Tablet(s) PO daily 03/28/2016 04/01/2016 Inactive Zithromax Z-Kulwant 250 mg tablet RxNorm: 625861 1 Tablet(s) PO UD 03/26/2016 03/30/2016 Inactive zpack Kenalog 40 mg/mL suspension for injection RxNorm: 8950582 Milliliter(s) Inj 03/26/2016 03/26/2016 Inactive Zofran ODT 4 mg disintegrating tablet RxNorm: 120310 DISSOLVE ONE TABLET IN MOUTH EVERY 6 HOURS NEEDED 02/22/2016 02/29/2016 Inactive venlafaxine ER 150 mg capsule,extended release 24 hr RxNorm: 219381 TAKE ONE CAPSULE BY MOUTH ONCE DAILY 02/18/2016 06/15/2016 Inactive meloxicam 15 mg tablet RxNorm: 992272 TAKE ONE TABLET BY MOUTH ONCE DAILY 02/04/2016 06/02/2016 Inactive aspirin 81 mg chewable tablet RxNorm: 978766 1 Tablet(s) PO daily 12/13/2015 12/06/2016 Active biotin 2,500 mcg tablet RxNorm: 502673 1 Tablet(s) PO daily 12/13/2015 09/07/2016 Inactive hydrochlorothiazide 25 mg tablet RxNorm: 519343 1 Tablet(s) PO daily 12/13/2015 04/10/2016 Inactive enalapril maleate 5 mg tablet RxNorm: 795449 TAKE ONE TABLET BY MOUTH ONCE DAILY 11/22/2015 05/19/2016 Inactive venlafaxine ER 150 mg capsule,extended release 24 hr RxNorm: 710368 TAKE ONE CAPSULE BY MOUTH ONCE DAILY 11/14/2015 02/11/2016 Inactive levothyroxine 125 mcg tablet RxNorm: 473314 Tablet(s) TAKE ONE TABLET BY MOUTH ONCE DAILY 11/06/2015 04/14/2016 Inactive levothyroxine 125 mcg tablet RxNorm: 398336 Tablet(s) TAKE ONE TABLET BY MOUTH ONCE DAILY 08/06/2015 11/03/2015 Inactive meclizine 25 mg tablet RxNorm: 475725 1/2-1 Tablet(s) PO Q6 as needed 07/16/2015 No Stop Date Active Flonase Allergy Relief 50 mcg/actuation nasal spray,suspension RxNorm: 1 [place] NASAL daily 06/13/2015 No Stop Date Active prednisone 20 mg tablet RxNorm: 816683 2 Tablet(s) PO daily 06/13/2015 06/17/2015 Inactive Augmentin 875 mg-125 mg tablet RxNorm: 331777 1 Tablet(s) PO BID 06/13/2015 06/19/2015 Inactive Zithromax Z-Kulwant 250 mg tablet RxNorm: 644970 1 Tablet(s) PO UD 06/07/2015 06/11/2015 Inactive zpack Kenalog 40 mg/mL suspension for injection RxNorm: 7379319 Milliliter(s) Inj 06/07/2015 06/07/2015 Inactive venlafaxine ER 150 mg capsule,extended release 24 hr RxNorm: 390484 TAKE ONE CAPSULE BY MOUTH ONCE DAILY 05/14/2015 11/09/2015 Inactive Augmentin 500 mg-125 mg tablet RxNorm: 148608 1 Tablet(s) PO TID 04/25/2015 05/04/2015 Inactive Augmentin 500 mg-125 mg tablet RxNorm: 760676 1 Tablet(s) PO TID 04/25/2015 04/24/2015 Inactive pravastatin 10 mg tablet RxNorm: 154000 1 Tablet(s) PO daily take with coenzyme q 10 daily 03/21/2015 07/18/2015 Inactive DC crestor pravastatin 10 mg tablet RxNorm: 658868 1 Tablet(s) PO daily take with coenzyme q 10 daily 03/21/2015 03/20/2015 Inactive DC crestor Zofran ODT 4 mg disintegrating tablet RxNorm: 223730 1 Tablet(s) PO Q6 PRN 03/13/2015 02/21/2016 Inactive levothyroxine 125 mcg tablet RxNorm: 402894 TAKE ONE TABLET BY MOUTH ONCE DAILY 02/13/2015 08/05/2015 Inactive meloxicam 15 mg tablet RxNorm: 289142 1 Tablet(s) PO daily 01/28/2015 01/22/2016 Inactive Zofran 4 mg tablet RxNorm: 962221 1 Tablet(s) PO Q6-8H as needed nausea 01/24/2015 No Stop Date Active Trulicity 1.5 mg/0.5 mL subcutaneous pen injector RxNorm: 0919722 0.75mg Milliliter(s) SQ QW 01/10/2015 No Stop Date Active venlafaxine ER 150 mg capsule,extended release 24 hr RxNorm: 141206 1 Capsule(s) PO daily 01/10/2015 05/09/2015 Inactive enalapril maleate 5 mg tablet RxNorm: 540840 1 Tablet(s) PO daily 01/04/2015 07/02/2015 Inactive amoxicillin 500 mg tablet RxNorm: 439785 1 Tablet(s) PO BID 12/07/2014 12/06/2014 Inactive Probiotic & Acidophilus 300 million cell-250 mg capsule RxNorm: 1 Capsule(s) PO BID 12/07/2014 12/16/2014 Inactive amoxicillin 500 mg tablet RxNorm: 915574 1 Tablet(s) PO BID 12/07/2014 12/16/2014 Inactive Kenalog 40 mg/mL suspension for injection RxNorm: 2746006 1 Milliliter(s) Inj 12/07/2014 12/07/2014 Inactive meloxicam 15 mg tablet RxNorm: 513073 1 Tablet(s) PO daily 10/24/2014 10/23/2014 Inactive meloxicam 15 mg tablet RxNorm: 639710 1 Tablet(s) PO daily 10/24/2014 01/27/2015 Inactive azithromycin 500 mg tablet RxNorm: 511910 1 Tablet(s) PO daily 10/11/2014 10/15/2014 Inactive azithromycin 500 mg tablet RxNorm: 089727 1 Tablet(s) PO daily 10/11/2014 10/10/2014 Inactive levothyroxine 125 mcg tablet RxNorm: 800870 1 Tablet(s) PO daily 10/06/2014 02/02/2015 Inactive enalapril maleate 5 mg tablet RxNorm: 778775 1 Tablet(s) PO daily 08/29/2014 12/26/2014 Inactive enalapril maleate 5 mg tablet RxNorm: 589364 1 Tablet(s) PO daily 08/25/2014 08/28/2014 Inactive Medroxy oral RxNorm: 9677031 oral No Start Date Active glimepiride 4 mg tablet RxNorm: 241852 1 Tablet(s) PO daily No Start Date Active Vitamin D3 5,000 unit tablet RxNorm: 270549 1 Tablet(s) PO daily No Start Date Active metformin 1,000 mg tablet RxNorm: 155572 Tablet(s) PO BID No Start Date Active fluconazole 200 mg tablet RxNorm: 065518 Tablet(s) PO No Start Date Active estradiol 2 mg tablet RxNorm: 829180 1 Tablet(s) PO daily No Start Date Active fenofibrate nanocrystallized 145 mg tablet RxNorm: 042623 1 Tablet(s) PO daily No Start Date Active Fish Oil 1,000 mg capsule RxNorm: 1 Capsule(s) PO BID No Start Date Active hydrocodone 5 mg-acetaminophen 325 mg tablet RxNorm: 974745 1-2 Tablet(s) PO Q4-6H as needed No Start Date Active enalapril maleate 5 mg tablet RxNorm: 017225 1 Tablet(s) PO daily No Start Date 08/24/2014 Inactive meclizine 25 mg tablet RxNorm: 007304 1/2-1 Tablet(s) PO Q6 as needed No Start Date 07/15/2015 Inactive Trulicity 0.75 mg/0.5 mL subcutaneous pen injector RxNorm: 8048401 0.75mg Milliliter(s) SQ QW No Start Date 01/09/2015 Inactive venlafaxine ER 150 mg capsule,extended release 24 hr RxNorm: 407974 1 Capsule(s) PO daily No Start Date 01/09/2015 Inactive meloxicam 15 mg tablet RxNorm: 869190 1 Tablet(s) PO daily No Start Date 10/23/2014 Inactive levothyroxine 125 mcg tablet RxNorm: 070112 1 Tablet(s) PO daily No Start Date 10/05/2014 Inactive Zithromax Z-Kulwant 250 mg tablet RxNorm: 742147 1 Tablet(s) PO UD No Start Date 05/20/2016 Inactive Zofran 4 mg tablet RxNorm: 534153 1 Tablet(s) PO Q6-8H as needed nausea No Start Date 01/23/2015 Inactive Crestor 10 mg tablet RxNorm: 833188 1 Tablet(s) PO daily No Start Date 03/20/2015 Inactive Medication Administered Medication Codes Instructions Start Date Status Kenalog 40 mg/mL suspension for injection RxNorm: 5746058 Milliliter 03/26/2016 No longer Active Kenalog 40 mg/mL suspension for injection RxNorm: 4307599 Milliliter 06/07/2015 No longer Active Kenalog 40 mg/mL suspension for injection RxNorm: 2065274 1Milliliter 12/07/2014 No longer Active Immunizations No Immunization data Assessments Condition Codes Effective Dates Cough ICD-10: R05 ICD-9: 786.2 03/26/2016 Other allergic rhinitis ICD-10: J30.89 ICD-9: 477.8 03/26/2016 Other acute sinusitis ICD-10: J01.80 ICD-9: 461.8 03/26/2016 Pure hyperglyceridemia ICD-10: E78.1 ICD-9: 272.1 12/13/2015 Essential (primary) hypertension ICD-10: I10 ICD-9: 401.9 12/13/2015 (Idiopathic) normal pressure hydrocephalus ICD-10: G91.2 ICD-9: 331.5 08/15/2015 Acute upper respiratory infection, unspecified ICD-10: J06.9 ICD-9: 465.9 06/13/2015 Other acute nonsuppurative otitis media, right ear ICD-10: H65.191 ICD-9: 381.00 06/13/2015 Acute recurrent maxillary sinusitis ICD-10: J01.01 ICD-9: 461.0 06/07/2015 Allergic rhinitis due to pollen ICD-10: J30.1 [...] Visit Reason For Visit Effective Dates Notes cough 03/26/2016 hypertension 12/13/2015 Hospital Follow Up 08/15/2015 cough 06/13/2015 earache 06/07/2015 hypertension 03/13/2015 with nausea and vomiting headache 12/07/2014 headache 09/07/2014 headache 08/07/2014 Results Observation Observation Code Item Item Code Result Date CBC 7101176 WBC 8.1 10e9/L 2016 CBC 1970132 RBC 4.41 10e12/L 2016 CBC 1313310 HEMOGLOBIN 13.2 g/dL 2016 CBC 5627956 HEMATOCRIT 39.6 % 2016 CBC 9333727 MCV 89.8 fL 2016 CBC 2985369 MCH 29.9 pg 2016 CBC 7563478 MCHC 33.3 g/dL 2016 CBC 2291124 PLATELET COUNT 298 10e9/L 2016 CBC 1493045 Mean Plt Volume 10.5 fL 2016 CBC 7468257 Neut Auto 61.3 % 2016 CBC 5910655 Lymph Auto 26.3 % 2016 CBC 0693054 [place] Auto 7.7 % 2016 CBC 5119828 Eos Auto 4.2 % 2016 CBC 6575478 RDW 13.6 % 2016 CBC 3596074 Baso Auto 0.5 % 2016 CBC 7767552 Neutrophil Abs 4.97 10e9/L 2016 CBC 8122715 Lymphocyte Abs 2.13 10e9/L 2016 CBC 3935923 Monocyte Abs 0.62 10e9/L 2016 CBC 3571652 Eosinophil Abs 0.34 10e9/L 2016 CBC 0154497 Basophil Abs 0.04 10e9/L 2016 CBC 6546725 RDW-SD 44.1 fL 2016 Review of Systems System Result Effective Dates Constitutional recent illness 03/26/2016 Constitutional No chills [...] Result Effective Dates Notes Full Exam - ENT Constitutional general appearance [...] Codes Date TRIAMCINOLONE ACET INJ NOS CPT-4: [id number] 03/26/2016 TRIAMCINOLONE ACET INJ NOS CPT-4: [id number] 06/07/2015 THER/PROPH/DIAG INJ SC/IM CPT-4: 74178Lmkmtkn 12/07/2014 TRIAMCINOLONE ACET INJ NOS CPT-4: T6851Kmfqxja 12/07/2014 Vital Signs Date Vital 03/26/2016 Blood Pressure 1: 140/86 Code: 8480-6 Heart Rate 1: 90 bpm Height: SpO2: 97% Weight: 12/13/2015 Blood Pressure 1: 132/72 Code: 8480-6 BMI: 31.2 Code: 37252-9 Heart Rate 1: 84 bpm Height: 5'7" SpO2: 98% Weight: 199 lbs 08/15/2015 Blood Pressure 1: 138/88 Code: 8480-6 BMI: 32.1 Code: 15305-6 Heart Rate 1: 94 bpm Height: 5'7" SpO2: 97% Weight: 205 lbs 06/13/2015 Blood Pressure 1: 146/78 Code: 8480-6 Blood Pressure 1: 188/88 Code: 8480-6 BMI: 32.6 Code: 81248-5 Heart Rate 1: 97 bpm Height: 5'7" SpO2: 98% Weight: 208 lbs 06/07/2015 Blood Pressure 1: 128/82 Code: 8480-6 BMI: 32.4 Code: 25368-0 Heart Rate 1: 80 bpm Height: 5'7" SpO2: 99% Weight: 207 lbs 03/13/2015 Blood Pressure 1: 124/70 Code: 8480-6 BMI: 31.6 Code: 21613-8 Heart Rate 1: 103 bpm Height: 5'7" Respiratory Rate: 18 bpm SpO2: 97% Temperature: 36.6 (C) / 97.8 (F) Weight: 202 lbs 12/07/2014 Blood Pressure 1: 140/80 Code: 8480-6 BMI: 32.3 Code: 66938-5 Heart Rate 1: 97 bpm Height: 5'7" SpO2: 99% Weight: 206 lbs 09/07/2014 Blood Pressure 1: 132/78 Code: 8480-6 BMI: 31.2 Code: 84729-8 Heart Rate 1: 92 bpm Height: 5'7" Weight: 199 lbs 08/07/2014 Blood Pressure 1: 140/84 Code: 8480-6 Heart Rate 1: 96 bpm Height: 5'7" Weight: Functional Status No Functional Status data History of Present Illness Symptom Name Status Result Effective Date Notes cough Location in the lung 03/26/2016 None [...] with shunt placement- 6-12-15- Dr Ruvalcaba in [place] did surgery headache Onset and Resolution ongoing [...] data Encounters Encounter Performer Location Codes Date EST. PATIENT, LEVEL III Diagnosis: Other acute sinusitis[ICD10: J01.80] Diagnosis: Other allergic rhinitis[ICD10: J30.89] Diagnosis: Cough[ICD10: R05] Aditi Dunham MD, [facility] CPT-4: 60169 03/26/2016 ([id number]) 01208 EST. PATIENT, LEVEL IV Diagnosis: Essential (primary) hypertension[ICD10: I10] Diagnosis: Pure hyperglyceridemia[ICD10: E78.1] [facility] CPT- 4: 46652 12/13/2015 [id number]) [id number] EST. PATIENT, LEVEL III Diagnosis: Essential (primary) hypertension[ICD10: I10] Diagnosis: (Idiopathic) normal pressure hydrocephalus[ICD10: G91.2] Tavia Dunham MD, [facility] CPT-4: 22704 08/15/2015 92017 EST. PATIENT, LEVEL III Diagnosis: Other acute nonsuppurative otitis media, right ear[ICD10: H65.191] Diagnosis: Acute upper respiratory infection, unspecified[ICD10: J06.9] Aditi Dunham MD, [facility] CPT-4: 21375 06/13/2015 ([id number]) 35122 EST. PATIENT, LEVEL III Diagnosis: Acute recurrent maxillary sinusitis[ICD10: J01.01] Diagnosis: Allergic rhinitis due to pollen[ICD10: J30.1] Kaylan Dunham MD, [facility] CPT-4: 36324 06/07/2015 ([id number]) 54588 EST. PATIENT, LEVEL IV Diagnosis: (Idiopathic) normal pressure hydrocephalus[ICD10: G91.2] Diagnosis: Essential (primary) hypertension[ICD10: I10] Diagnosis: Dizziness and giddiness[ICD10: R42] Diagnosis: Nausea with vomiting, unspecified[ICD10: R11.2] Kaylan Dunham MD, [facility] CPT-4: 96093 03/13/2015 89219 EST. PATIENT, LEVEL III Diagnosis: Acute sinusitis, unspecified[ICD10: J01.90] Diagnosis: Allergic rhinitis, unspecified[ICD10: J30.9] Tavia Dunham MD, [facility] CPT-4: 75768 12/07/2014 ([id number]) 05092 EST. PATIENT, LEVEL IV Diagnosis: ESSENTIAL HYPERTENSION[ICD9: 401.9] Diagnosis: DIABETES TYPE II[ICD9: 250.00] Diagnosis: NPH (normal pressure hydrocephalus)[ICD9: 331.5] Diagnosis: Hypertriglyceridemia[ICD9: 272.1] Kaylan Dunham MD, [facility] CPT- 4: 47197 09/07/2014 ([id number]) OFFICE/OUTPATIENT VISIT NEW Diagnosis: DIABETES TYPE II[ICD9: 250.00] Diagnosis: ESSENTIAL HYPERTENSION[ICD9: 401.9] Diagnosis: NPH (normal pressure hydrocephalus)[ICD9: 331.5] Diagnosis: Abnormal gait[ICD9: 781.2] Diagnosis: VITAMIN D DEFICIENCY[ICD9: 268.9] Tavia Dunham MD, [facility] CPT- 4: 51880 08/07/2014 Plan of Care Planned Activity Notes Codes Status Date Visit Plan: Sinusitis - Pt has acute infection - pain in face, maxillary region, Pt informed to use decongestant, RX given to patient, sinus rinses also recommended. Call if symptoms do not show improvement.Allergies - chronic - recommended pt to use allergy medication as prescribed. Pt has been counseled as to the appropriate use of the medication. Pt to call if allergy symptoms are not controlled with the medication.If using nasal spray, instructions as follows: Nasal [...] recommended. Call if symptoms do not show improvement.Allergies - chronic - recommended pt to use allergy medication as prescribed. Pt has been counseled as to the appropriate use of the medication. Pt to call if allergy symptoms are not controlled with the medication.If using nasal spray, instructions as follows: Nasal spray- use twice daily, one spray per nostril twice daily, after 30 minutes, rinse out nose with saline spray.. Use opposite hand per nostril to spray in the nasal steroid allergy spray. 03/26/2016 Appointment: Aditi Hamilton WPtel: [address] [place], [place] [address] (30 min) [facility] 03/26/2016 Patient Education: Patient Medication Summary Completed 03/26/2016 Visit Plan: Hypertension - well controlled - continue with current medications, continue with no added salt diet. Pt has been encouraged to exercise daily.The pt has been advised to call the office if there are any acute concerns about change in blood pressure readings at home.Hyperlipidemia - pt has been counseled about appropriate [...] medications. 12/13/2015 Appointment: [facility]el[facility] [facility] [place] (15 min) Moderate 12/13/2015 Patient Education: Patient Medication Summary Completed 12/13/2015 Patient Education: Obesity Completed 12/13/2015 Visit Plan: Hypertension - well controlled - continue with current medications, continue with no added salt diet. Pt has been encouraged to exercise daily.The pt has been advised to call the office if there are any acute concerns about change in blood pressure readings at home.Hydrocephalus - pt doing well - shunt appears [...] do not improve or if they acutely worsen.URI - Pt advised to increase fluids, vitamin [...] recommended. Call if symptoms do not show improvement.Allergies - chronic - recommended pt to use allergy medication as prescribed. Pt has been counseled as to the appropriate use of the medication. Pt to call if allergy symptoms are not controlled with the medication.Kenalog injection today in the office. 06/07/2015 Patient [...] diet. Pt has been encouraged to exercise daily.The pt has been advised to call the office if there are any acute concerns about change in blood pressure readings at home.Diabetes Mellitus - I have recommended for the [...] diet. Pt has been encouraged to exercise daily.The pt has been advised to call the office if there are any acute concerns about change in blood pressure readings at home.Diabetes Mellitus - controlled - per recent FSBS [...] glucose readings are starting to become less controlled.Elevated triglycerides-ok to increase fish oil to twice daily- will consider gemfibrozil if level does not improve with fish oil and dietary modifications-low fat diet-no fried foods, fatty foods, fast foods, etc. Patient verbalized understanding of plan. NPH-recent shunt placement by Dr Ruvalcaba- symptoms significantly improved 09/07/2014 Appointment: (15 min) Moderate [...] acute concerns, complaints, or if the blood glucos e readings are starting to become less controlled.Hypertension - well controlled - continue with current medications, continue with no added salt diet. Pt has been encouraged to exercise daily.The pt has been advised to call the office if there are any acute concerns about change in blood pressure readings at home.NPH with Gait abnormality - pt to have surgery this Thursday - will have evaluation post surgically - Pt to start on therapy post surgery - she will call with report of where she wants therapy.Vitamin D deficiency - start on supplement. 08/07/2014 Appointment: Tavia Dunham WPtel: [facility] [place] ([place] New Patient 08/07/2014 Patient [...] assure normal liver response to medications. . NPH-increased dizziness/nausea/vomiting since adjustment of shunt-discussed [...] are starting to become less controlled. . Hypertension - well controlled - continue with current medications, continue with no added salt diet. Pt has been encouraged to exercise daily. The pt has been advised to call the office if there are any acute concerns about change in blood pressure readings at home. Hydrocephalus - pt doing well - shunt appears to be working well. Kenalog injection today in the office . [...] medication. Kenalog injection today in the office. . Otitis Media - discussed the diagnosis [...]
--- OUTSIDE RECORDS SUMMARY | 2018-10-08 11:06 | XMS REPORT | CCD ---
Author Author [facility] Organization [facility] Address [address] [place] [address] Phone Care Team Providers Care Billing Checker Name Role Phone PP Unavailable CCM Unavailable Summary Purpose Interface Exchange Insurance Providers Payer name Policy type / Coverage type Covered green party ID Effective Begin Date Effective End Date Blue Cross [facility] Blue Cross/Blue [facility] [id number] Unknown Family history Mother Diagnosis Age At Onset Cancer Unknown Arthritis Unknown Depression Unknown Hyperlipidemia Unknown Diabetes mellitus Type 2 Unknown Social History Social History Element Codes Description Effective Dates Marital status Unknown Y[place] 08/07/2014 Number of children Unknown 0 08/07/2014 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[employer] 08/07/[address]: 444348619 Never smoker 08/07/[address]: 919792575 Never drinks alcohol 08/07/2014 Allergies, Adverse Reactions, Alerts Substance Reaction Codes Entered Date Inactivated Date Status CODEINE emesis RxNorm: 2670 08/07/2014 No Inactive Date Active Past Medical History Illness Codes Condition Status Onset Date Resolved Date Mixed hyperlipidemia ICD- 9: 272.2 ICD-10: E78.2 Active 03/11/2018 Unknown Other allergic rhinitis ICD-9: 477.8 ICD-10: J30.89 Active 03/26/2016 Unknown Type 2 diabetes mellitus with hyperglycemia ICD-9: 250.00 ICD-10: E11.65 Active 03/11/2018 Unknown Essential (primary) hypertension ICD-9: 401.9 ICD-10: [...] Problems Condition Codes Effective Dates Condition Status Mixed hyperlipidemia ICD- 9: 272.2 ICD-10: E78.2 03/11/2018 Active Other allergic rhinitis ICD-9: 477.8 ICD-10: J30.89 03/26/2016 Active Type 2 diabetes mellitus with hyperglycemia ICD-9: 250.00 ICD-10: E11.65 03/11/2018 Active Essential (primary) hypertension ICD-9: 401.9 ICD-10: [...] 150 mg capsule,extended release 24 hr RxNorm: 051046 TAKE 1 CAPSULE BY MOUTH ONCE DAILY 06/08/2018 No Stop Date Active Levemir FlexTouch U-100 Insulin 100 unit/mL (3 mL) subcutaneous pen RxNorm: 125505 30 Unit(s) SQ BID 06/04/2018 10/01/2018 Active update RX -increase to 35 units BID if blood sugars over 200 Augmentin 875 mg-125 mg tablet RxNorm: 883888 1 Tablet(s) PO BID 06/04/2018 06/10/2018 Active hydrochlorothiazide 25 mg tablet RxNorm: 005800 TAKE 1 TABLET BY MOUTH ONCE DAILY 03/23/2018 No Stop Date Active Levemir FlexTouch U-100 Insulin 100 unit/mL (3 mL) subcutaneous pen RxNorm: 381349 30 Unit(s) SQ QAM and 25 Units SQ QPM 03/18/2018 06/03/2018 Inactive Levemir FlexTouch U-100 Insulin 100 unit/mL (3 mL) subcutaneous pen RxNorm: 047237 Unit(s) 03/11/2018 03/17/2018 Inactive 30 q am and 25 units q PM pravastatin 40 mg tablet RxNorm: 354514 1 Tablet(s) PO daily take with coenzyme q 10 daily 03/03/2018 02/25/2019 Active Levemir FlexTouch U-100 Insulin 100 unit/mL (3 mL) subcutaneous pen RxNorm: 953475 Unit(s) INJECT 25 UNITS SUBCUTANEOUSLY TWICE DAILY 03/03/2018 03/10/2018 Inactive pravastatin 10 mg tablet RxNorm: 822505 1 Tablet(s) PO daily take with coenzyme q 10 daily 02/26/2018 03/02/2018 Inactive prednisone 20 mg tablet RxNorm: 527436 2 Tablet(s) PO daily 02/17/2018 02/21/2018 Inactive levothyroxine 125 mcg tablet RxNorm: 416883 TAKE 1 TABLET BY MOUTH ONCE DAILY 01/11/2018 No Stop Date Active cyclobenzaprine 5 mg tablet RxNorm: 225126 1 Tablet(s) PO TID as needed 12/28/2017 01/11/2018 Inactive Zorvolex 35 mg capsule RxNorm: 5542867 1 Capsule(s) PO TID as needed 12/25/2017 05/23/2018 Inactive Levemir FlexTouch U-100 Insulin 100 unit/mL (3 mL) subcutaneous pen RxNorm: 357638 INJECT 2O UNITS SUBCUTANEOUSLY TWICE DAILY 12/21/2017 03/02/2018 Inactive cyclobenzaprine 5 mg tablet RxNorm: 873790 1 Tablet(s) PO TID as needed 12/21/2017 12/25/2017 Inactive doxycycline hyclate 100 mg capsule RxNorm: 3896351 1 Capsule(s) PO BID 12/21/2017 12/30/2017 Inactive venlafaxine ER 150 mg capsule,extended release 24 hr RxNorm: 782679 TAKE 1 CAPSULE BY MOUTH ONCE DAILY 12/10/2017 06/07/2018 Inactive Singulair 10 mg tablet RxNorm: 467233 1 Tablet(s) PO daily 12/03/2017 12/02/2017 Inactive Singulair 10 mg tablet RxNorm: 136523 1 Tablet(s) PO daily 12/03/2017 01/01/2018 Inactive Zithromax Z-Kulwant 250 mg tablet RxNorm: 150975 1 Tablet(s) PO UD 12/03/2017 03/10/2018 Inactive z pack as directed Kenalog 40 mg/mL suspension for injection RxNorm: 4602656 1 Milliliter(s) Inj 11/30/2017 11/30/2017 Inactive prednisone 20 mg tablet RxNorm: 615314 2 Tablet(s) PO daily 11/30/2017 12/04/2017 Inactive Augmentin 875 mg-125 mg tablet RxNorm: 061331 1 Tablet(s) PO BID 11/27/2017 11/26/2017 Inactive Augmentin 875 mg-125 mg tablet RxNorm: 649845 1 Tablet(s) PO BID 11/27/2017 12/03/2017 Inactive Zorvolex 35 mg capsule RxNorm: 2250936 1 Capsule(s) PO TID as needed 11/09/2017 12/24/2017 Inactive hydrochlorothiazide 25 mg tablet RxNorm: 574342 1 Tablet(s) PO daily 10/22/2017 02/18/2018 Inactive enalapril maleate 5 mg tablet RxNorm: 088020 1 Tablet(s) PO daily TAKE ONE TABLET BY MOUTH ONCE DAILY 08/21/2017 02/16/2018 Inactive Levemir FlexTouch U-100 Insulin 100 unit/mL (3 mL) subcutaneous pen RxNorm: 747602 20 Unit(s) SQ BID 07/30/2017 12/20/2017 Inactive levothyroxine 125 mcg tablet RxNorm: 729001 TAKE ONE TABLET BY MOUTH ONCE DAILY 06/29/2017 01/10/2018 Inactive venlafaxine ER 150 mg capsule,extended release 24 hr RxNorm: 480499 1 Capsule(s) PO daily TAKE ONE CAPSULE BY MOUTH ONCE DAILY 06/08/2017 12/04/2017 Inactive prednisone 20 mg tablet RxNorm: 912058 1 Tablet(s) PO daily 06/02/2017 06/06/2017 Inactive prednisone 20 mg tablet RxNorm: 883551 1 Tablet(s) PO daily 06/01/2017 06/05/2017 Inactive Kenalog 40 mg/mL suspension for injection RxNorm: 1260480 1 Milliliter(s) Inj 05/28/2017 05/28/2017 Inactive cefdinir 300 mg capsule RxNorm: 255031 1 Capsule(s) PO BID 05/28/2017 06/03/2017 Inactive ceftriaxone 500 mg solution for injection RxNorm: 2051153 1 Inj 05/28/2017 05/28/2017 Inactive prednisone 20 mg tablet RxNorm: 939553 1 Tablet(s) PO daily 05/28/2017 05/31/2017 Inactive Keflex 500 mg capsule RxNorm: 611804 1 Capsule(s) PO TID 05/26/2017 06/01/2017 Inactive Keflex 500 mg capsule RxNorm: 731144 1 Capsule(s) PO TID 05/26/2017 05/25/2017 Inactive hydrocodone 10 mg-chlorpheniramine 8 mg/5 mL oral susp extend.rel 12hr RxNorm: 8139338 5-10 Milliliter(s) PO TID as needed 04/16/2017 No Stop Date Active Tussionex Pennkinetic ER 10 mg-8 mg/5 mL suspension,extended release RxNorm: 0542772 5 Milliliter(s) PO BID 04/16/2017 04/27/2017 Inactive Zithromax Z-Kulwant 250 mg tablet RxNorm: 493341 1 Tablet(s) PO UD 03/25/2017 04/15/2017 Inactive z pack as directed enalapril maleate 5 mg tablet RxNorm: 299126 TAKE ONE TABLET BY MOUTH ONCE DAILY 02/26/2017 08/20/2017 Inactive Levemir FlexTouch 100 unit/mL (3 mL) subcutaneous insulin pen RxNorm: 655132 20 Unit(s) SQ BID 02/10/2017 07/11/2017 Inactive Zorvolex 35 mg capsule RxNorm: 1477267 1 Capsule(s) PO TID as needed 02/10/2017 11/08/2017 Inactive valacyclovir 1 gram tablet RxNorm: 327396 1 Tablet(s) PO TID 02/10/2017 02/16/2017 Inactive Levemir FlexTouch 100 unit/mL (3 mL) subcutaneous insulin pen RxNorm: 209950 20 Unit(s) SQ BID 02/04/2017 02/09/2017 Inactive cyclobenzaprine 5 mg tablet RxNorm: 702791 1 Tablet(s) PO qhs x 3 nights and TID as needed muscle spasms 02/02/2017 No Stop Date Active levothyroxine 125 mcg tablet RxNorm: 076503 TAKE ONE TABLET BY MOUTH ONCE DAILY 12/08/2016 06/05/2017 Inactive venlafaxine ER 150 mg capsule,extended release 24 hr RxNorm: 648233 TAKE ONE CAPSULE BY MOUTH ONCE DAILY 12/01/2016 05/29/2017 Inactive Zorvolex 35 mg capsule RxNorm: 1090282 1 Capsule(s) PO TID as needed do not take meloxicam at the same time 11/07/2016 No Stop Date Active enalapril maleate 5 mg tablet RxNorm: 038243 TAKE ONE TABLET BY MOUTH ONCE DAILY 10/31/2016 12/29/2016 Inactive meloxicam 15 mg tablet RxNorm: 427160 TAKE ONE TABLET BY MOUTH ONCE DAILY 10/30/2016 03/10/2018 Inactive meloxicam 15 mg tablet RxNorm: 778355 TAKE ONE TABLET BY MOUTH ONCE DAILY 10/24/2016 10/29/2016 Inactive enalapril maleate 5 mg tablet RxNorm: 286496 TAKE ONE TABLET BY MOUTH ONCE DAILY 10/24/2016 10/30/2016 Inactive venlafaxine ER 150 mg capsule,extended release 24 hr RxNorm: 321039 TAKE ONE CAPSULE BY MOUTH ONCE DAILY 06/16/2016 11/12/2016 Inactive meloxicam 15 mg tablet RxNorm: 240292 TAKE ONE TABLET BY MOUTH ONCE DAILY 06/09/2016 10/06/2016 Inactive enalapril maleate 5 mg tablet RxNorm: 283614 TAKE ONE TABLET BY MOUTH ONCE DAILY 06/02/2016 09/29/2016 Inactive Zithromax Z-Kulwant 250 mg tablet RxNorm: 130752 1 Tablet(s) PO UD 05/21/2016 06/15/2016 Inactive levothyroxine 125 mcg tablet RxNorm: 742647 Tablet(s) TAKE ONE TABLET BY MOUTH ONCE DAILY 04/15/2016 10/11/2016 Inactive Levaquin 500 mg tablet RxNorm: 256790 1 Tablet(s) PO daily 04/03/2016 04/09/2016 Inactive Levaquin 500 mg tablet RxNorm: 159832 1 Tablet(s) PO daily 04/03/2016 04/02/2016 Inactive prednisone 20 mg tablet RxNorm: 471935 2 Tablet(s) PO daily 03/28/2016 04/01/2016 Inactive Zithromax Z-Kulwant 250 mg tablet RxNorm: 644680 1 Tablet(s) PO UD 03/26/2016 03/30/2016 Inactive raymond Kenalog 40 mg/mL suspension for injection RxNorm: 3365998 Milliliter(s) Inj 03/26/2016 03/26/2016 Inactive Zofran ODT 4 mg disintegrating tablet RxNorm: 128804 DISSOLVE ONE TABLET IN MOUTH EVERY 6 HOURS NEEDED 02/22/2016 02/29/2016 Inactive venlafaxine ER 150 mg capsule,extended release 24 hr RxNorm: 054566 TAKE ONE CAPSULE BY MOUTH ONCE DAILY 02/18/2016 06/15/2016 Inactive meloxicam 15 mg tablet RxNorm: 607559 TAKE ONE TABLET BY MOUTH ONCE DAILY 02/04/2016 06/02/2016 Inactive aspirin 81 mg chewable tablet RxNorm: 291304 1 Tablet(s) PO daily 12/13/2015 12/06/2016 Inactive biotin 2,500 mcg tablet RxNorm: 670319 1 Tablet(s) PO daily 12/13/2015 09/07/2016 Inactive hydrochlorothiazide 25 mg tablet RxNorm: 393108 1 Tablet(s) PO daily 12/13/2015 04/10/2016 Inactive enalapril maleate 5 mg tablet RxNorm: 259056 TAKE ONE TABLET BY MOUTH ONCE DAILY 11/22/2015 05/19/2016 Inactive venlafaxine ER 150 mg capsule,extended release 24 hr RxNorm: 682487 TAKE ONE CAPSULE BY MOUTH ONCE DAILY 11/14/2015 02/11/2016 Inactive levothyroxine 125 mcg tablet RxNorm: 314188 Tablet(s) TAKE ONE TABLET BY MOUTH ONCE DAILY 11/06/2015 04/14/2016 Inactive levothyroxine 125 mcg tablet RxNorm: 653784 Tablet(s) TAKE ONE TABLET BY MOUTH ONCE DAILY 08/06/2015 11/03/2015 Inactive meclizine 25 mg tablet RxNorm: 201957 1/2-1 Tablet(s) PO Q6 as needed 07/16/2015 No Stop Date Active Flonase Allergy Relief 50 mcg/actuation nasal spray,suspension RxNorm: 1 [place] NASAL daily 06/13/2015 No Stop Date Active prednisone 20 mg tablet RxNorm: 306388 2 Tablet(s) PO daily 06/13/2015 06/17/2015 Inactive Augmentin 875 mg-125 mg tablet RxNorm: 863615 1 Tablet(s) PO BID 06/13/2015 06/19/2015 Inactive Zithromax Z-Kulwant 250 mg tablet RxNorm: 902483 1 Tablet(s) PO UD 06/07/2015 06/11/2015 Inactive raymond Kenalog 40 mg/mL suspension for injection RxNorm: 7986993 Milliliter(s) Inj 06/07/2015 06/07/2015 Inactive venlafaxine ER 150 mg capsule,extended release 24 hr RxNorm: 326514 TAKE ONE CAPSULE BY MOUTH ONCE DAILY 05/14/2015 11/09/2015 Inactive Augmentin 500 mg-125 mg tablet RxNorm: 626176 1 Tablet(s) PO TID 04/25/2015 05/04/2015 Inactive Augmentin 500 mg-125 mg tablet RxNorm: 652784 1 Tablet(s) PO TID 04/25/2015 04/24/2015 Inactive pravastatin 10 mg tablet RxNorm: 896932 1 Tablet(s) PO daily take with coenzyme q 10 daily 03/21/2015 03/20/2015 Inactive DC crestor pravastatin 10 mg tablet RxNorm: 658606 1 Tablet(s) PO daily take with coenzyme q 10 daily 03/21/2015 07/18/2015 Inactive DC crestor Zofran ODT 4 mg disintegrating tablet RxNorm: 810824 1 Tablet(s) PO Q6 PRN 03/13/2015 02/21/2016 Inactive levothyroxine 125 mcg tablet RxNorm: 851363 TAKE ONE TABLET BY MOUTH ONCE DAILY 02/13/2015 08/05/2015 Inactive meloxicam 15 mg tablet RxNorm: 143747 1 Tablet(s) PO daily 01/28/2015 01/22/2016 Inactive Zofran 4 mg tablet RxNorm: 456204 1 Tablet(s) PO Q6-8H as needed nausea 01/24/2015 No Stop Date Active Trulicity 1.5 mg/0.5 mL subcutaneous pen injector RxNorm: 9295569 0.75mg Milliliter(s) SQ QW 01/10/2015 03/10/2018 Inactive venlafaxine ER 150 mg capsule,extended release 24 hr RxNorm: 154080 1 Capsule(s) PO daily 01/10/2015 05/09/2015 Inactive enalapril maleate 5 mg tablet RxNorm: 941864 1 Tablet(s) PO daily 01/04/2015 07/02/2015 Inactive amoxicillin 500 mg tablet RxNorm: 165923 1 Tablet(s) PO BID 12/07/2014 12/06/2014 Inactive Probiotic & Acidophilus 300 million cell-250 mg capsule RxNorm: 1 Capsule(s) PO BID 12/07/2014 12/16/2014 Inactive amoxicillin 500 mg tablet RxNorm: 949435 1 Tablet(s) PO BID 12/07/2014 12/16/2014 Inactive Kenalog 40 mg/mL suspension for injection RxNorm: 4153411 1 Milliliter(s) Inj 12/07/2014 12/07/2014 Inactive meloxicam 15 mg tablet RxNorm: 410959 1 Tablet(s) PO daily 10/24/2014 10/23/2014 Inactive meloxicam 15 mg tablet RxNorm: 265288 1 Tablet(s) PO daily 10/24/2014 01/27/2015 Inactive azithromycin 500 mg tablet RxNorm: 008700 1 Tablet(s) PO daily 10/11/2014 10/15/2014 Inactive azithromycin 500 mg tablet RxNorm: 303155 1 Tablet(s) PO daily 10/11/2014 10/10/2014 Inactive levothyroxine 125 mcg tablet RxNorm: 510690 1 Tablet(s) PO daily 10/06/2014 02/02/2015 Inactive enalapril maleate 5 mg tablet RxNorm: 176439 1 Tablet(s) PO daily 08/29/2014 12/26/2014 Inactive enalapril maleate 5 mg tablet RxNorm: 716025 1 Tablet(s) PO daily 08/25/2014 08/28/2014 Inactive Medroxy oral RxNorm: 7257229 oral No Start Date Active Vitamin D3 5,000 unit tablet RxNorm: 758810 1 Tablet(s) PO daily No Start Date Active fluconazole 200 mg tablet RxNorm: 109771 Tablet(s) PO No Start Date Active estradiol 2 mg tablet RxNorm: 163318 1 Tablet(s) PO daily No Start Date Active fenofibrate nanocrystallized 145 mg tablet RxNorm: 873621 1 Tablet(s) PO daily No Start Date Active hydrocodone 5 mg-acetaminophen 325 mg tablet RxNorm: 635857 1-2 Tablet(s) PO Q4-6H as needed No Start Date Active enalapril maleate 5 mg tablet RxNorm: 523536 1 Tablet(s) PO daily No Start Date 08/24/2014 Inactive glimepiride 4 mg tablet RxNorm: 532209 1 Tablet(s) PO daily No Start Date 01/26/2017 Inactive meclizine 25 mg tablet RxNorm: 604594 1/2-1 Tablet(s) PO Q6 as needed No Start Date 07/15/2015 Inactive Trulicity 0.75 mg/0.5 mL subcutaneous pen injector RxNorm: 0420164 0.75mg Milliliter(s) SQ QW No Start Date 01/09/2015 Inactive metformin 1,000 mg tablet RxNorm: 517127 Tablet(s) PO BID No Start Date 01/26/2017 Inactive venlafaxine ER 150 mg capsule,extended release 24 hr RxNorm: 011468 1 Capsule(s) PO daily No Start Date 01/09/2015 Inactive meloxicam 15 mg tablet RxNorm: 897732 1 Tablet(s) PO daily No Start Date 10/23/2014 Inactive levothyroxine 125 mcg tablet RxNorm: 690106 1 Tablet(s) PO daily No Start Date 10/05/2014 Inactive Levemir FlexTouch 100 unit/mL (3 mL) subcutaneous insulin pen RxNorm: 333408 15 Unit(s) SQ daily No Start Date 02/03/2017 Inactive Zithromax Z-Kulwant 250 mg tablet RxNorm: 820386 1 Tablet(s) PO UD No Start Date 05/20/2016 Inactive Fish Oil 1,000 mg capsule RxNorm: 1 Capsule(s) PO BID No Start Date 11/04/2016 Inactive Zofran 4 mg tablet RxNorm: 209909 1 Tablet(s) PO Q6-8H as needed nausea No Start Date 01/23/2015 Inactive Crestor 10 mg tablet RxNorm: 041834 1 Tablet(s) PO daily No Start Date 03/20/2015 Inactive Medication Administered Medication Codes Instructions Start Date Status Kenalog 40 mg/mL suspension for injection RxNorm: 4710637 1Milliliter 11/30/2017 No longer Active Kenalog 40 mg/mL suspension for injection RxNorm: 4708054 1Milliliter 05/28/2017 No longer Active ceftriaxone 500 mg solution for injection RxNorm: 4021452 1 05/28/2017 No longer Active Kenalog 40 mg/mL suspension for injection RxNorm: 7421870 Milliliter 03/26/2016 No longer Active Kenalog 40 mg/mL suspension for injection RxNorm: 4117102 Milliliter 06/07/2015 No longer Active Kenalog 40 mg/mL suspension for injection RxNorm: 7835732 1Milliliter 12/07/2014 No longer Active Immunizations Vaccine [...] Item Item Code Result Date CHEM 14 [id number] AST TNP:Lab Request 01/27/2017 CHEM 14 [id number] ALT TNP:Lab Request 01/27/2017 CHEM 14 [id number] BUN TNP:Lab Request 01/27/2017 CHEM 14 [id number] ALBUMIN TNP:Lab Request 01/27/2017 CHEM 14 [id number] CHLORIDE TNP:Lab Request 01/27/2017 CHEM 14 [id number] Bili Total TNP:Lab Request 01/27/2017 CHEM 14 [id number] ALK PHOS TNP:Lab Request 01/27/2017 CHEM 14 [id number] SODIUM TNP:Lab Request 01/27/2017 CHEM 14 [id number] CREATININE TNP:Lab Request 01/27/2017 CHEM 14 [id number] CALCIUM TNP:Lab Request 01/27/2017 CHEM 14 [id number] POTASSIUM TNP:Lab Request 01/27/2017 CHEM 14 [id number] TOTAL PROTEIN TNP:Lab Request 01/27/2017 CHEM 14 [id number] GLUCOSE TNP:Lab Request 01/27/2017 CHEM 14 [id number] Bicarbonate TNP:Lab Request 01/27/2017 CHEM 14 [id number] AGAP TNP:Lab Request 01/27/2017 AMYLASE [id number] Amylase Lvl TNP:Lab Request 01/27/2017 LIPID GRP CHOLESTEROL 273 mg/dL 2016 LIPID GRP Triglyceride 583 mg/dL 2016 LIPID GRP HDL CHOLESTEROL 48 mg/dL 2016 LIPID GRP Chol/HDL Ratio 5.69 ratio 2016 LIPID GRP NON-HDL Chol 225 mg/dL 2016 LIPID GRP LDL Cholesterol N/A Trig >400 2016 A1C HPLC 6524307 Hgb A1c 58545-9 7.3 % 2016 TSH [id number] TSH 1.340 uIU/mL 2016 FREE T4 0625918 T4 Free 1.60 ng/dL 2016 MEAN GLUC 5981848 Calc Mean Gluc 163 mg/dL 2016 GFR CALC [id number] GFR Non Afr Amr >60 mL/min 2016 GFR CALC 6629334 GFR Afr Amr >60 mL/min 2016 CBC 7920635 WBC 8.1 10e9/L 2016 CBC 3228944 RBC 4.41 10e12/L 2016 CBC 0131719 HEMOGLOBIN 13.2 g/dL 2016 CBC 9608060 HEMATOCRIT 39.6 % 2016 CBC 0171792 MCV 89.8 fL 2016 CBC 4380065 MCH 29.9 pg 2016 CBC 8064161 MCHC 33.3 g/dL 2016 CBC 3345105 PLATELET COUNT 298 10e9/L 2016 CBC 4466645 Mean Plt Volume 10.5 fL 2016 CBC 0247038 Neut Auto 61.3 % 2016 CBC 6019908 Lymph Auto 26.3 % 2016 CBC 2354001 Borden Auto 7.7 % 2016 CBC 4589355 RDW 13.6 % 2016 CBC 2620231 Eos Auto 4.2 % 2016 CBC 5428983 Baso Auto 0.5 % 2016 CBC 2260063 Neutrophil Abs 4.97 10e9/L 2016 CBC 8364481 Lymphocyte Abs 2.13 10e9/L 2016 CBC 1908184 Monocyte Abs 0.62 10e9/L 2016 CBC 7437579 Eosinophil Abs 0.34 10e9/L 2016 CBC 8954915 RDW-SD 44.1 fL 2016 CBC 5304367 Basophil Abs 0.04 10e9/L 2016 CHEM 14 5051272 AST 19 U/L 2016 CHEM 14 4189989 ALT 26 U/L 2016 CHEM 14 8033981 BUN 20 mg/dL 2016 CHEM 14 7952916 ALBUMIN 4.1 g/dL 2016 CHEM 14 2016779 CHLORIDE 99 mmol/L 2016 CHEM 14 8497779 Bili Total 0.3 mg/dL 2016 CHEM 14 0396338 ALK PHOS 55 U/L 2016 CHEM 14 7529661 SODIUM 135 mmol/L 2016 CHEM 14 4615196 CREATININE 0.87 mg/dL 2016 CHEM 14 6264157 CALCIUM 9.3 mg/dL 2016 CHEM 14 3885188 POTASSIUM 4.0 mmol/L 2016 CHEM 14 9256884 TOTAL PROTEIN 7.0 g/dL 2016 CHEM 14 3950509 GLUCOSE 149 mg/dL 2016 CHEM 14 5536070 Bicarbonate 26 mmol/L 2016 CHEM 14 2970502 AGAP 10 mmol/L 2016 Review of Systems [...] 1994 Ears/Nose/Throat external nose Overall: no masses 03/11/2018 [...] 4: J0696 05/28/2017 THER/PROPH/DIAG INJ SC/IM CPT-4: 87253 05/19/2017 KETOROLAC TROMETHAMINE INJ CPT-4: J1885 05/19/2017 TRIAMCINOLONE ACET INJ NOS CPT-4: J3301 03/26/2016 TRIAMCINOLONE ACET INJ NOS CPT-4: J3301 06/07/2015 THER/PROPH/DIAG INJ SC/IM CPT-4: 56132 12/07/2014 TRIAMCINOLONE ACET INJ NOS CPT-4: J3301 12/07/2014 Vital Signs Date Vital 06/04/2018 Blood Pressure 1: 144/76 Code: 8480-6 BMI: 32.0 Code: 62431-3 Heart Rate 1: 82 bpm Height: 5'7" SpO2: 96% Temperature: 36.5 (C) / 97.7 (F) Weight: 204 lbs 03/11/2018 Blood Pressure 1: 142/82 Code: 8480-6 BMI: 32.1 Code: 72220-6 Heart Rate 1: 87 bpm Height: 5'7" SpO2: 97% Weight: 205 lbs 02/17/2018 Blood Pressure 1: 132/76 Code: 8480-6 BMI: 33.5 Code: 21851-7 Heart Rate 1: 92 bpm Height: 5'7" SpO2: 98% Weight: 214 lbs 12/21/2017 Blood Pressure 1: 154/78 Code: 8480-6 BMI: 33.5 Code: 71415-5 Heart Rate 1: 93 bpm Height: 5'7" SpO2: 96% Weight: 214 lbs 11/30/2017 Blood Pressure 1: 148/88 Code: 8480-6 BMI: 33.5 Code: 55635-3 Heart Rate 1: 80 bpm Height: 5'7" SpO2: 97% Temperature: 36.9 (C) / 98.5 (F) Weight: 214 lbs 05/28/2017 Blood Pressure 1: 128/70 Code: 8480-6 BMI: 31.3 Code: 18647-4 Heart Rate 1: 103 bpm Height: 5'7" SpO2: 98% Temperature: 36.7 (C) / 98.1 (F) Weight: 200 lbs 05/19/2017 Blood Pressure 1: 150/72 Code: 8480-6 04/16/2017 Blood Pressure 1: 146/88 Code: 8480-6 BMI: 31.3 Code: 20737-6 Heart Rate 1: 96 bpm Height: 5'7" SpO2: 94% Temperature: 37.2 (C) / 99.0 (F) Weight: 200 lbs 02/10/2017 Blood Pressure 1: 132/72 Code: 8480-6 BMI: 31.3 Code: 73602-0 Heart Rate 1: 99 bpm Height: 5'7" SpO2: 97% Weight: 200 lbs 02/02/2017 Blood Pressure 1: 140/68 Code: 8480-6 BMI: 31.4 Code: 33369-0 Heart Rate 1: 82 bpm Height: 5'7" SpO2: 97% Weight: 200 lbs 8 oz 01/27/2017 Blood Pressure 1: 142/80 Code: 8480-6 BMI: 32.2 Code: 33555-9 Height: 5'7" Temperature: 37.2 (C) / 98.9 (F) Weight: 205 lbs 8 oz 11/07/2016 Blood Pressure 1: 148/82 Code: 8480-6 BMI: 32.7 Code: 36867-7 Heart Rate 1: 106 bpm Height: 5'7" SpO2: 97% Weight: 209 lbs 03/26/2016 Blood Pressure 1: 140/86 Code: 8480-6 Heart Rate 1: 90 bpm Height: SpO2: 97% Weight: 12/13/2015 Blood Pressure 1: 132/72 Code: 8480-6 BMI: 31.2 Code: 58139-5 Heart Rate 1: 84 bpm Height: 5'7" SpO2: 98% Weight: 199 lbs 08/15/2015 Blood Pressure 1: 138/88 Code: 8480-6 BMI: 32.1 Code: 70425-5 Heart Rate 1: 94 bpm Height: 5'7" SpO2: 97% Weight: 205 lbs 06/13/2015 Blood Pressure 1: 188/88 Code: 8480-6 Blood Pressure 1: 146/78 Code: 8480-6 BMI: 32.6 Code: 41459-2 Heart Rate 1: 97 bpm Height: 5'7" SpO2: 98% Weight: 208 lbs 06/07/2015 Blood Pressure 1: 128/82 Code: 8480-6 BMI: 32.4 Code: 93124-5 Heart Rate 1: 80 bpm Height: 5'7" SpO2: 99% Weight: 207 lbs 03/13/2015 Blood Pressure 1: 124/70 Code: 8480-6 BMI: 31.6 Code: 81380-7 Heart Rate 1: 103 bpm Height: 5'7" Respiratory Rate: 18 bpm SpO2: 97% Temperature: 36.6 (C) / 97.8 (F) Weight: 202 lbs 12/07/2014 Blood Pressure 1: 140/80 Code: 8480-6 BMI: 32.3 Code: 13798-8 Heart Rate 1: 97 bpm Height: 5'7" SpO2: 99% Weight: 206 lbs 09/07/2014 Blood Pressure 1: 132/78 Code: 8480-6 BMI: 31.2 Code: 73369-9 Heart Rate 1: 92 bpm Height: 5'7" [...] with shunt placement- 08-11-14- Dr Ruvalcaba in [place] did surgery headache Onset and Resolution ongoing [...] Encounters Encounter Performer Location Codes Date ( [id number] EST. PATIENT, LEVEL IV Diagnosis: Type 2 diabetes mellitus with hyperglycemia[ICD10: E11.65] Diagnosis: Mixed hyperlipidemia[ICD10: E78.2] Diagnosis: Other allergic rhinitis[ICD10: J30.89] Kaylan Dunham MD, [facility] CPT-4: 02242 06/04/2018 ([id number]) 28136 EST. PATIENT, LEVEL IV Diagnosis: Type 2 diabetes mellitus with hyperglycemia[ICD10: E11.65] Diagnosis: Mixed hyperlipidemia[ICD10: E78.2] Diagnosis: Essential (primary) hypertension[ICD10: I10] [facility] CPT-4: 39128 03/11/2018 [id number] EST. PATIENT, LEVEL III Diagnosis: Paresthesia of skin[ICD10: R20.2] Aditi Dunham MD, [facility] CPT-4: 23294 02/17/2018 [id number] EST. PATIENT, LEVEL IV Diagnosis: Pain in right shoulder[ICD10: M25.511] Diagnosis: Rash and other nonspecific skin eruption[ICD10: R21] Aditi Dunham MD, [facility] CPT-4: 81339 12/21/2017 [id number] EST. PATIENT, LEVEL IV Diagnosis: Other acute sinusitis[ICD10: J01.80] Diagnosis: Other allergic rhinitis[ICD10: J30.89] Diagnosis: Localized edema[ICD10: R60.0] Aditi Dunham MD [facility] CPT-4: 91237 11/30/2017 ([id number]) 30268 EST. PATIENT, LEVEL III Diagnosis: Acute recurrent maxillary sinusitis[ICD10: J01.01] Diagnosis: Cough[ICD10: R05] Tavia Dunham MD, [facility] CPT-4: 69206 05/28/2017 ([id number]) 61755 EST. PATIENT, LEVEL III Diagnosis: Acute laryngopharyngitis[ICD10: J06.0] Diagnosis: Cough[ICD10: R05] Tavia Dunham MD, [facility] CPT-4: 84096 04/16/2017 [id number] EST. PATIENT, LEVEL III Diagnosis: Left lower quadrant pain[ICD10: R10.32] Aditi Dunham MD, [facility] CPT-4: 53485 02/10/2017 ([id number]) [id number] EST. PATIENT, LEVEL III Diagnosis: Pain in thoracic spine[ICD10: M54.6] Diagnosis: Other muscle spasm[ICD10: M62.838] Tavia Dunham MD, [facility] CPT- 4: 89838 02/02/2017 ([id number]) [id number] EST. PATIENT, LEVEL IV Diagnosis: Other acute pancreatitis without necrosis or infection[ICD10: K85.80] Diagnosis: Epigastric pain[ICD10: R10.13] Diagnosis: Type 2 diabetes mellitus without complications[ICD10: E11.9] Tavia Dunham MD, [facility] CPT-4: 02752 01/27/2017 [id number] EST. PATIENT, LEVEL IV Diagnosis: Essential (primary) hypertension[ICD10: I10] Diagnosis: Type 1 diabetes mellitus without complications[ICD10: E10.9] Diagnosis: Other specified hypothyroidism[ICD10: E03.8] Diagnosis: Bilateral primary osteoarthritis of hip[ICD10: M16.0] Diagnosis: Actinic keratosis[ICD10: L57.0] Aditi Dunham MD, [facility] CPT-4: 34530 11/07/2016 36576 EST. PATIENT, LEVEL III Diagnosis: Other acute sinusitis[ICD10: J01.80] Diagnosis: Other allergic rhinitis[ICD10: J30.89] Diagnosis: Cough[ICD10: R05] Aditi Dunham MD, [facility] CPT-4: 42500 03/26/2016 ([id number]) 48622 EST. PATIENT, LEVEL IV Diagnosis: Essential (primary) hypertension[ICD10: I10] Diagnosis: Pure hyperglyceridemia[ICD10: E78.1] Tavia Dunham MD, [facility] CPT- 4: 05710 12/13/2015 ([id number]) 17059 EST. PATIENT, LEVEL III Diagnosis: Essential (primary) hypertension[ICD10: I10] Diagnosis: (Idiopathic) normal pressure hydrocephalus[ICD10: G91.2] Tavia Dunham MD, [facility] CPT-4: 18294 08/15/2015 18602 EST. PATIENT, LEVEL III Diagnosis: Other acute nonsuppurative otitis media, right ear[ICD10: H65.191] Diagnosis: Acute upper respiratory infection, unspecified[ICD10: J06.9] Aditi Dunham MD, [facility] CPT-4: 86243 06/13/2015 ([id number]) 89025 EST. PATIENT, LEVEL III Diagnosis: Acute recurrent maxillary sinusitis[ICD10: J01.01] Diagnosis: Allergic rhinitis due to pollen[ICD10: J30.1] Kaylan Dunham MD, [facility] CPT-4: 49221 06/07/2015 ([id number]) 14305 EST. PATIENT, LEVEL IV Diagnosis: (Idiopathic) normal pressure hydrocephalus[ICD10: G91.2] Diagnosis: Essential (primary) hypertension[ICD10: I10] Diagnosis: Dizziness and giddiness[ICD10: R42] Diagnosis: Nausea with vomiting, unspecified[ICD10: R11.2] Kaylan Dunham MD, [facility] CPT-4: 21454 03/13/2015 55484 EST. PATIENT, LEVEL III Diagnosis: Acute sinusitis, unspecified[ICD10: J01.90] Diagnosis: Allergic rhinitis, unspecified[ICD10: J30.9] Tavia Dunham MD, [facility] CPT-4: 56376 12/07/2014 ([id number]) 65798 EST. PATIENT, LEVEL IV Diagnosis: ESSENTIAL HYPERTENSION[ICD9: 401.9] Diagnosis: DIABETES TYPE II[ICD9: 250.00] Diagnosis: NPH (normal pressure hydrocephalus)[ICD9: 331.5] Diagnosis: Hypertriglyceridemia[ICD9: 272.1] Kaylan Melendez Tavia Dunham MD, [facility] CPT- 4: 13466 09/07/2014 ([id number]) OFFICE/OUTPATIENT VISIT NEW Diagnosis: DIABETES TYPE II[ICD9: 250.00] Diagnosis: ESSENTIAL HYPERTENSION[ICD9: 401.9] Diagnosis: NPH (normal pressure hydrocephalus)[ICD9: 331.5] Diagnosis: Abnormal gait[ICD9: 781.2] Diagnosis: VITAMIN D DEFICIENCY[ICD9: 268.9] Tavia Dunham MD, [facility] CPT- 4: 62624 08/07/2014 Plan of Care Planned Activity Notes [...] spray. 06/04/2018 Appointment: [facility] [phone] [facility] [phone] (30 min) Complex 06/04/2018 Patient Education: Patient Medication Summary Completed 06/04/2018 Patient Education: Cholesterol Management Completed 06/04/2018 Patient Education: Patient Medication Summary Completed 05/25/2018 Care Plan: A1C HPLC [facility] : 44872-2 Pending 05/25/2018 Referral: Ammon Joiner Patient informed. [...] home. 03/11/2018 Appointment: Kay[facility] Mel[place] [facility] [phone] [facility] [phone] (30 min) Complex 03/11/2018 Patient Education: Patient Medication Summary Completed 03/11/2018 Patient Education: Cholesterol Management Completed 03/11/2018 Patient Education: Hypertension Completed 03/11/2018 Care Plan: Referral Order SNOMED-CT : [id number] Pending 03/11/2018 Visit Plan: Parasthesia - ongoing for about a month - will send RX and refer pt for EMG - The pt is to use prn antiinflammatories to manage acute pain. The patient is to call the office if the pain is worsening or does not improve. 02/17/2018 Appointment: Aditi [place] WPtel: [facility]66[facility] (15 min) Moderate 02/17/2018 Patient Education: Patient [...] warmth, discharge. 12/21/2017 Appointment: Aditi [place] WPtel: [facility] [place] (15 min) Moderate 12/21/2017 Patient Education: Patient Medication Summary Completed 12/21/2017 Appointment: Tavia Dunham WPtel: [facility] [place] (15 min) Moderate 12/02/2017 Visit [...] edema. 11/30/2017 Appointment: Aditi [place] WPtel: [phone] [facility] [place] (15 min) Moderate 11/30/2017 Patient Education: Patient Medication Summary Completed 11/30/2017 Care Plan: Comp Metabolic Pending 11/30/2017 Care Plan: Cbc With Differential Pending 11/30/2017 Care Plan: %Hba1C LOINC : 39833-3 Pending 11/30/2017 Care Plan: Lipid Pending 11/30/2017 Care Plan: Tsh Pending 11/30/2017 Care Plan: Free T4 Pending 11/30/2017 Appointment: Tavia Dunham WPtel: [phone] [facility] [place] (15 min) Moderate 11/26/2017 Appointment: Kaylan Melendez WPtel: [phone] [phone] [place] (30 min) Complex 08/13/2017 Appointment: Tavia Dunham WPtel: [phone] [facility] [place] (15 min) Moderate 08/04/2017 Appointment: Tavia Dunham WPtel: [phone] [facility] [place] (15 min) Moderate 07/20/2017 Visit [...] today 05/28/2017 Appointment: Tavia Dunham WPtel: [phone] [facility] [place] (30 min) Complex 05/28/2017 Patient [...] pharmacy. 04/16/2017 Appointment: Tavia Dunham WPtel: [phone] [phone] (15 min) Moderate 04/16/2017 Patient Education: [...] concerns. 02/10/2017 Appointment: Aditi [place] WPtel: [phone] [facility] [place] (15 min) Moderate 02/10/2017 Patient Education: Patient Medication Summary Completed 02/10/2017 Patient Education: Obesity Completed 02/10/2017 Visit Plan: Pain in Thoracic spine with muscle spasm - ibuprofen 600mg three times daily x 3 days, rx for cyclobenzaprine. 02/02/2017 [phone] [place] ([facility]) Moderate 02/02/2017 Patient Education: [...] today. 01/27/2017 [facility]ment[phone] ([facility]) Moderate 01/27/2017 Patient Education: [...] symptoms. 11/07/2016 Appointment: [facility] [place] [facility] [phone] [facility] [place] ([place] min) Complex 11/07/2016 Patient Education: Patient [...] allergy spray. 03/26/2016 Appointment: [facility] [place] [facility]el[facility] [phone] [facility] [place] (30 min) Complex 03/26/2016 Patient Education: Patient [...] to medications. 12/13/2015 Appointment: [facility] ([facility]) Moderate 12/13/2015 Patient Education: [...] on supplement. 08/07/2014 Appointment: Tavia Dunham WPtel: [address] [place] [address] [place] (S) New Patient 08/07/2014 Patient Education: [...]
--- OUTSIDE RECORDS SUMMARY | 2018-10-08 11:09 | XMS REPORT | CCD ---
Author Author [facility] Organization [facility] Address [address] [place] [address] Phone Care Team Providers Care Nurse'S Aides Teacher Name Role Phone PP Unavailable CCM Unavailable Summary Purpose Interface Exchange Insurance Providers Payer name Policy type / Coverage type Covered green party ID Effective Begin Date Effective End Date Blue Cross Blue [facility] Blue Cross/Blue [facility] [id number] Unknown Family history Mother Diagnosis Age At Onset Cancer Unknown Arthritis Unknown Depression Unknown Hyperlipidemia Unknown Diabetes mellitus Type 2 Unknown Social History Social History Element Codes Description Effective Dates Marital status Unknown Yinka 08/07/2014 Number of children Unknown 0 08/07/2014 Employment 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[employer] 08/07/[address]: 149586473 Never smoker 08/07/[address]: 153708001 Never drinks alcohol 08/07/2014 Allergies, Adverse Reactions, [...] 150 mg capsule,extended release 24 hr RxNorm: 953919 TAKE 1 CAPSULE BY MOUTH ONCE DAILY 06/08/2018 No Stop Date Active Levemir FlexTouch U-100 Insulin 100 unit/mL (3 mL) subcutaneous pen RxNorm: 985399 30 Unit(s) SQ BID 06/04/2018 10/01/2018 Active update RX -increase to 35 units BID if blood sugars over 200 Augmentin 875 mg-125 mg tablet RxNorm: 932647 1 Tablet(s) PO BID 06/04/2018 06/10/2018 Active hydrochlorothiazide 25 mg tablet RxNorm: 133293 TAKE 1 TABLET BY MOUTH ONCE DAILY 03/23/2018 No Stop Date Active Levemir FlexTouch U-100 Insulin 100 unit/mL (3 mL) subcutaneous pen RxNorm: 104750 30 Unit(s) SQ QAM and 25 Units SQ QPM 03/18/2018 06/03/2018 Inactive Levemir FlexTouch U-100 Insulin 100 unit/mL (3 mL) subcutaneous pen RxNorm: 903448 Unit(s) 03/11/2018 03/17/2018 Inactive 30 q am and 25 units q PM pravastatin 40 mg tablet RxNorm: 225366 1 Tablet(s) PO daily take with coenzyme q 10 daily 03/03/2018 02/25/2019 Active Levemir FlexTouch U-100 Insulin 100 unit/mL (3 mL) subcutaneous pen RxNorm: 158569 Unit(s) INJECT 25 UNITS SUBCUTANEOUSLY TWICE DAILY 03/03/2018 03/10/2018 Inactive pravastatin 10 mg tablet RxNorm: 208054 1 Tablet(s) PO daily take with coenzyme q 10 daily 02/26/2018 03/02/2018 Inactive prednisone 20 mg tablet RxNorm: 528064 2 Tablet(s) PO daily 02/17/2018 02/21/2018 Inactive levothyroxine 125 mcg tablet RxNorm: 185126 TAKE 1 TABLET BY MOUTH ONCE DAILY 01/11/2018 No Stop Date Active cyclobenzaprine 5 mg tablet RxNorm: 425202 1 Tablet(s) PO TID as needed 12/28/2017 01/11/2018 Inactive Zorvolex 35 mg capsule RxNorm: 7313390 1 Capsule(s) PO TID as needed 12/25/2017 05/23/2018 Inactive Levemir FlexTouch U-100 Insulin 100 unit/mL (3 mL) subcutaneous pen RxNorm: 781395 INJECT 2O UNITS SUBCUTANEOUSLY TWICE DAILY 12/21/2017 03/02/2018 Inactive cyclobenzaprine 5 mg tablet RxNorm: 721303 1 Tablet(s) PO TID as needed 12/21/2017 12/25/2017 Inactive doxycycline hyclate 100 mg capsule RxNorm: 4288572 1 Capsule(s) PO BID 12/21/2017 12/30/2017 Inactive venlafaxine ER 150 mg capsule,extended release 24 hr RxNorm: 710696 TAKE 1 CAPSULE BY MOUTH ONCE DAILY 12/10/2017 06/07/2018 Inactive Singulair 10 mg tablet RxNorm: 540115 1 Tablet(s) PO daily 12/03/2017 12/02/2017 Inactive Singulair 10 mg tablet RxNorm: 985750 1 Tablet(s) PO daily 12/03/2017 01/01/2018 Inactive Zithromax Z-Kulwant 250 mg tablet RxNorm: 427616 1 Tablet(s) PO UD 12/03/2017 03/10/2018 Inactive z pack as directed Kenalog 40 mg/mL suspension for injection RxNorm: 5030911 1 Milliliter(s) Inj 11/30/2017 11/30/2017 Inactive prednisone 20 mg tablet RxNorm: 737835 2 Tablet(s) PO daily 11/30/2017 12/04/2017 Inactive Augmentin 875 mg-125 mg tablet RxNorm: 973080 1 Tablet(s) PO BID 11/27/2017 11/26/2017 Inactive Augmentin 875 mg-125 mg tablet RxNorm: 178227 1 Tablet(s) PO BID 11/27/2017 12/03/2017 Inactive Zorvolex 35 mg capsule RxNorm: 3628240 1 Capsule(s) PO TID as needed 11/09/2017 12/24/2017 Inactive hydrochlorothiazide 25 mg tablet RxNorm: 686099 1 Tablet(s) PO daily 10/22/2017 02/18/2018 Inactive enalapril maleate 5 mg tablet RxNorm: 981984 1 Tablet(s) PO daily TAKE ONE TABLET BY MOUTH ONCE DAILY 08/21/2017 02/16/2018 Inactive Levemir FlexTouch U-100 Insulin 100 unit/mL (3 mL) subcutaneous pen RxNorm: 439565 20 Unit(s) SQ BID 07/30/2017 12/20/2017 Inactive levothyroxine 125 mcg tablet RxNorm: 615112 TAKE ONE TABLET BY MOUTH ONCE DAILY 06/29/2017 01/10/2018 Inactive venlafaxine ER 150 mg capsule,extended release 24 hr RxNorm: 942253 1 Capsule(s) PO daily TAKE ONE CAPSULE BY MOUTH ONCE DAILY 06/08/2017 12/04/2017 Inactive prednisone 20 mg tablet RxNorm: 032894 1 Tablet(s) PO daily 06/02/2017 06/06/2017 Inactive prednisone 20 mg tablet RxNorm: 639667 1 Tablet(s) PO daily 06/01/2017 06/05/2017 Inactive Kenalog 40 mg/mL suspension for injection RxNorm: 5683724 1 Milliliter(s) Inj 05/28/2017 05/28/2017 Inactive cefdinir 300 mg capsule RxNorm: 214723 1 Capsule(s) PO BID 05/28/2017 06/03/2017 Inactive ceftriaxone 500 mg solution for injection RxNorm: 1066873 1 Inj 05/28/2017 05/28/2017 Inactive prednisone 20 mg tablet RxNorm: 722827 1 Tablet(s) PO daily 05/28/2017 05/31/2017 Inactive Keflex 500 mg capsule RxNorm: 328680 1 Capsule(s) PO TID 05/26/2017 06/01/2017 Inactive Keflex 500 mg capsule RxNorm: 273775 1 Capsule(s) PO TID 05/26/2017 05/25/2017 Inactive hydrocodone 10 mg-chlorpheniramine 8 mg/5 mL oral susp extend.rel 12hr RxNorm: 5462485 5-10 Milliliter(s) PO TID as needed 04/16/2017 No Stop Date Active Tussionex Pennkinetic ER 10 mg-8 mg/5 mL suspension,extended release RxNorm: 9331907 5 Milliliter(s) PO BID 04/16/2017 04/27/2017 Inactive Zithromax Z-Kulwant 250 mg tablet RxNorm: 692789 1 Tablet(s) PO UD 03/25/2017 04/15/2017 Inactive z pack as directed enalapril maleate 5 mg tablet RxNorm: 315187 TAKE ONE TABLET BY MOUTH ONCE DAILY 02/26/2017 08/20/2017 Inactive Levemir FlexTouch 100 unit/mL (3 mL) subcutaneous insulin pen RxNorm: 204040 20 Unit(s) SQ BID 02/10/2017 07/11/2017 Inactive Zorvolex 35 mg capsule RxNorm: 8940236 1 Capsule(s) PO TID as needed 02/10/2017 11/08/2017 Inactive valacyclovir 1 gram tablet RxNorm: 035527 1 Tablet(s) PO TID 02/10/2017 02/16/2017 Inactive Levemir FlexTouch 100 unit/mL (3 mL) subcutaneous insulin pen RxNorm: 007246 20 Unit(s) SQ BID 02/04/2017 02/09/2017 Inactive cyclobenzaprine 5 mg tablet RxNorm: 062627 1 Tablet(s) PO qhs x 3 nights and TID as needed muscle spasms 02/02/2017 No Stop Date Active levothyroxine 125 mcg tablet RxNorm: 881144 TAKE ONE TABLET BY MOUTH ONCE DAILY 12/08/2016 06/05/2017 Inactive venlafaxine ER 150 mg capsule,extended release 24 hr RxNorm: 434503 TAKE ONE CAPSULE BY MOUTH ONCE DAILY 12/01/2016 05/29/2017 Inactive Zorvolex 35 mg capsule RxNorm: 0956969 1 Capsule(s) PO TID as needed do not take meloxicam at the same time 11/07/2016 No Stop Date Active enalapril maleate 5 mg tablet RxNorm: 219866 TAKE ONE TABLET BY MOUTH ONCE DAILY 10/31/2016 12/29/2016 Inactive meloxicam 15 mg tablet RxNorm: 142985 TAKE ONE TABLET BY MOUTH ONCE DAILY 10/30/2016 03/10/2018 Inactive meloxicam 15 mg tablet RxNorm: 414348 TAKE ONE TABLET BY MOUTH ONCE DAILY 10/24/2016 10/29/2016 Inactive enalapril maleate 5 mg tablet RxNorm: 795240 TAKE ONE TABLET BY MOUTH ONCE DAILY 10/24/2016 10/30/2016 Inactive venlafaxine ER 150 mg capsule,extended release 24 hr RxNorm: 417738 TAKE ONE CAPSULE BY MOUTH ONCE DAILY 06/16/2016 11/12/2016 Inactive meloxicam 15 mg tablet RxNorm: 095365 TAKE ONE TABLET BY MOUTH ONCE DAILY 06/09/2016 10/06/2016 Inactive enalapril maleate 5 mg tablet RxNorm: 745764 TAKE ONE TABLET BY MOUTH ONCE DAILY 06/02/2016 09/29/2016 Inactive Zithromax Z-Kulwant 250 mg tablet RxNorm: 174010 1 Tablet(s) PO UD 05/21/2016 06/15/2016 Inactive levothyroxine 125 mcg tablet RxNorm: 329890 Tablet(s) TAKE ONE TABLET BY MOUTH ONCE DAILY 04/15/2016 10/11/2016 Inactive Levaquin 500 mg tablet RxNorm: 090897 1 Tablet(s) PO daily 04/03/2016 04/09/2016 Inactive Levaquin 500 mg tablet RxNorm: 936834 1 Tablet(s) PO daily 04/03/2016 04/02/2016 Inactive prednisone 20 mg tablet RxNorm: 247969 2 Tablet(s) PO daily 03/28/2016 04/01/2016 Inactive Zithromax Z-Kulwant 250 mg tablet RxNorm: 465422 1 Tablet(s) PO UD 03/26/2016 03/30/2016 Inactive raymond Kenalog 40 mg/mL suspension for injection RxNorm: 0700438 Milliliter(s) Inj 03/26/2016 03/26/2016 Inactive Zofran ODT 4 mg disintegrating tablet RxNorm: 521986 DISSOLVE ONE TABLET IN MOUTH EVERY 6 HOURS NEEDED 02/22/2016 02/29/2016 Inactive venlafaxine ER 150 mg capsule,extended release 24 hr RxNorm: 248003 TAKE ONE CAPSULE BY MOUTH ONCE DAILY 02/18/2016 06/15/2016 Inactive meloxicam 15 mg tablet RxNorm: 999512 TAKE ONE TABLET BY MOUTH ONCE DAILY 02/04/2016 06/02/2016 Inactive aspirin 81 mg chewable tablet RxNorm: 244421 1 Tablet(s) PO daily 12/13/2015 12/06/2016 Inactive biotin 2,500 mcg tablet RxNorm: 820728 1 Tablet(s) PO daily 12/13/2015 09/07/2016 Inactive hydrochlorothiazide 25 mg tablet RxNorm: 123819 1 Tablet(s) PO daily 12/13/2015 04/10/2016 Inactive enalapril maleate 5 mg tablet RxNorm: 022431 TAKE ONE TABLET BY MOUTH ONCE DAILY 11/22/2015 05/19/2016 Inactive venlafaxine ER 150 mg capsule,extended release 24 hr RxNorm: 513173 TAKE ONE CAPSULE BY MOUTH ONCE DAILY 11/14/2015 02/11/2016 Inactive levothyroxine 125 mcg tablet RxNorm: 725144 Tablet(s) TAKE ONE TABLET BY MOUTH ONCE DAILY 11/06/2015 04/14/2016 Inactive levothyroxine 125 mcg tablet RxNorm: 347964 Tablet(s) TAKE ONE TABLET BY MOUTH ONCE DAILY 08/06/2015 11/03/2015 Inactive meclizine 25 mg tablet RxNorm: 909335 1/2-1 Tablet(s) PO Q6 as needed 07/16/2015 No Stop Date Active Flonase Allergy Relief 50 mcg/actuation nasal spray,suspension RxNorm: 1 Henry NASAL daily 06/13/2015 No Stop Date Active prednisone 20 mg tablet RxNorm: 669166 2 Tablet(s) PO daily 06/13/2015 06/17/2015 Inactive Augmentin 875 mg-125 mg tablet RxNorm: 822676 1 Tablet(s) PO BID 06/13/2015 06/19/2015 Inactive Zithromax Z-Kulwant 250 mg tablet RxNorm: 767378 1 Tablet(s) PO UD 06/07/2015 06/11/2015 Inactive raymond Kenalog 40 mg/mL suspension for injection RxNorm: 5825182 Milliliter(s) Inj 06/07/2015 06/07/2015 Inactive venlafaxine ER 150 mg capsule,extended release 24 hr RxNorm: 895288 TAKE ONE CAPSULE BY MOUTH ONCE DAILY 05/14/2015 11/09/2015 Inactive Augmentin 500 mg-125 mg tablet RxNorm: 371178 1 Tablet(s) PO TID 04/25/2015 05/04/2015 Inactive Augmentin 500 mg-125 mg tablet RxNorm: 950858 1 Tablet(s) PO TID 04/25/2015 04/24/2015 Inactive pravastatin 10 mg tablet RxNorm: 808722 1 Tablet(s) PO daily take with coenzyme q 10 daily 03/21/2015 03/20/2015 Inactive DC crestor pravastatin 10 mg tablet RxNorm: 388658 1 Tablet(s) PO daily take with coenzyme q 10 daily 03/21/2015 07/18/2015 Inactive DC crestor Zofran ODT 4 mg disintegrating tablet RxNorm: 978367 1 Tablet(s) PO Q6 PRN 03/13/2015 02/21/2016 Inactive levothyroxine 125 mcg tablet RxNorm: 274135 TAKE ONE TABLET BY MOUTH ONCE DAILY 02/13/2015 08/05/2015 Inactive meloxicam 15 mg tablet RxNorm: 037446 1 Tablet(s) PO daily 01/28/2015 01/22/2016 Inactive Zofran 4 mg tablet RxNorm: 206526 1 Tablet(s) PO Q6-8H as needed nausea 01/24/2015 No Stop Date Active Trulicity 1.5 mg/0.5 mL subcutaneous pen injector RxNorm: 0671582 0.75mg Milliliter(s) SQ QW 01/10/2015 03/10/2018 Inactive venlafaxine ER 150 mg capsule,extended release 24 hr RxNorm: 795639 1 Capsule(s) PO daily 01/10/2015 05/09/2015 Inactive enalapril maleate 5 mg tablet RxNorm: 755659 1 Tablet(s) PO daily 01/04/2015 07/02/2015 Inactive amoxicillin 500 mg tablet RxNorm: 261474 1 Tablet(s) PO BID 12/07/2014 12/06/2014 Inactive Probiotic & Acidophilus 300 million cell-250 mg capsule RxNorm: 1 Capsule(s) PO BID 12/07/2014 12/16/2014 Inactive amoxicillin 500 mg tablet RxNorm: 331187 1 Tablet(s) PO BID 12/07/2014 12/16/2014 Inactive Kenalog 40 mg/mL suspension for injection RxNorm: 9098548 1 Milliliter(s) Inj 12/07/2014 12/07/2014 Inactive meloxicam 15 mg tablet RxNorm: 368454 1 Tablet(s) PO daily 10/24/2014 10/23/2014 Inactive meloxicam 15 mg tablet RxNorm: 037342 1 Tablet(s) PO daily 10/24/2014 01/27/2015 Inactive azithromycin 500 mg tablet RxNorm: 189018 1 Tablet(s) PO daily 10/11/2014 10/15/2014 Inactive azithromycin 500 mg tablet RxNorm: 347493 1 Tablet(s) PO daily 10/11/2014 10/10/2014 Inactive levothyroxine 125 mcg tablet RxNorm: 120974 1 Tablet(s) PO daily 10/06/2014 02/02/2015 Inactive enalapril maleate 5 mg tablet RxNorm: 846542 1 Tablet(s) PO daily 08/29/2014 12/26/2014 Inactive enalapril maleate 5 mg tablet RxNorm: 884762 1 Tablet(s) PO daily 08/25/2014 08/28/2014 Inactive Medroxy oral RxNorm: 2838597 oral No Start Date Active Vitamin D3 5,000 unit tablet RxNorm: 094099 1 Tablet(s) PO daily No Start Date Active fluconazole 200 mg tablet RxNorm: 837546 Tablet(s) PO No Start Date Active estradiol 2 mg tablet RxNorm: 519729 1 Tablet(s) PO daily No Start Date Active fenofibrate nanocrystallized 145 mg tablet RxNorm: 005687 1 Tablet(s) PO daily No Start Date Active hydrocodone 5 mg-acetaminophen 325 mg tablet RxNorm: 339734 1-2 Tablet(s) PO Q4-6H as needed No Start Date Active enalapril maleate 5 mg tablet RxNorm: 663930 1 Tablet(s) PO daily No Start Date 08/24/2014 Inactive glimepiride 4 mg tablet RxNorm: 452628 1 Tablet(s) PO daily No Start Date 01/26/2017 Inactive meclizine 25 mg tablet RxNorm: 042396 1/2-1 Tablet(s) PO Q6 as needed No Start Date 07/15/2015 Inactive Trulicity 0.75 mg/0.5 mL subcutaneous pen injector RxNorm: 7378013 0.75mg Milliliter(s) SQ QW No Start Date 01/09/2015 Inactive metformin 1,000 mg tablet RxNorm: 344185 Tablet(s) PO BID No Start Date 01/26/2017 Inactive venlafaxine ER 150 mg capsule,extended release 24 hr RxNorm: 596604 1 Capsule(s) PO daily No Start Date 01/09/2015 Inactive meloxicam 15 mg tablet RxNorm: 387912 1 Tablet(s) PO daily No Start Date 10/23/2014 Inactive levothyroxine 125 mcg tablet RxNorm: 304247 1 Tablet(s) PO daily No Start Date 10/05/2014 Inactive Levemir FlexTouch 100 unit/mL (3 mL) subcutaneous insulin pen RxNorm: 725366 15 Unit(s) SQ daily No Start Date 02/03/2017 Inactive Zithromax Z-Kulwant 250 mg tablet RxNorm: 799732 1 Tablet(s) PO UD No Start Date 05/20/2016 Inactive Fish Oil 1,000 mg capsule RxNorm: 1 Capsule(s) PO BID No Start Date 11/04/2016 Inactive Zofran 4 mg tablet RxNorm: 255375 1 Tablet(s) PO Q6-8H as needed nausea No Start Date 01/23/2015 Inactive Crestor 10 mg tablet RxNorm: 242951 1 Tablet(s) PO daily No Start Date 03/20/2015 Inactive Medication Administered Medication Codes Instructions Start Date Status Kenalog 40 mg/mL suspension for injection RxNorm: 4352894 1Milliliter 11/30/2017 No longer Active Kenalog 40 mg/mL suspension for injection RxNorm: 1225461 1Milliliter 05/28/2017 No longer Active ceftriaxone 500 mg solution for injection RxNorm: 0158599 1 05/28/2017 No longer Active Kenalog 40 mg/mL suspension for injection RxNorm: 6002262 Milliliter 03/26/2016 No longer Active Kenalog 40 mg/mL suspension for injection RxNorm: 2068800 Milliliter 06/07/2015 No longer Active Kenalog 40 mg/mL suspension for injection RxNorm: 5771861 1Milliliter 12/07/2014 No longer Active Immunizations Vaccine [...] Item Item Code Result Date CHEM 14 [id number] AST TNP:Lab Request 01/27/2017 CHEM 14 [id number] ALT TNP:Lab Request 01/27/2017 CHEM 14 [id number] BUN TNP:Lab Request 01/27/2017 CHEM 14 [id number] ALBUMIN TNP:Lab Request 01/27/2017 CHEM 14 [id number] CHLORIDE TNP:Lab Request 01/27/2017 CHEM 14 [id number] Bili Total TNP:Lab Request 01/27/2017 CHEM 14 [id number] ALK PHOS TNP:Lab Request 01/27/2017 CHEM 14 [id number] SODIUM TNP:Lab Request 01/27/2017 CHEM 14 [id number] CREATININE TNP:Lab Request 01/27/2017 CHEM 14 [id number] CALCIUM TNP:Lab Request 01/27/2017 CHEM 14 [id number] POTASSIUM TNP:Lab Request 01/27/2017 CHEM 14 [id number] TOTAL PROTEIN TNP:Lab Request 01/27/2017 CHEM 14 [id number] GLUCOSE TNP:Lab Request 01/27/2017 CHEM 14 [id number] Bicarbonate TNP:Lab Request 01/27/2017 CHEM 14 [id number] AGAP TNP:Lab Request 01/27/2017 AMYLASE [id number] Amylase Lvl TNP:Lab Request 01/27/2017 LIPID GRP CHOLESTEROL 273 mg/dL 2016 LIPID GRP Triglyceride 583 mg/dL 2016 LIPID GRP HDL CHOLESTEROL 48 mg/dL 2016 LIPID GRP Chol/HDL Ratio 5.69 ratio 2016 LIPID GRP NON-HDL Chol 225 mg/dL 2016 LIPID GRP LDL Cholesterol N/A Trig >400 2016 A1C HPLC 0613348 Hgb A1c 43554-0 7.3 % 2016 TSH [id number] TSH 1.340 uIU/mL 2016 FREE T4 1523222 T4 Free 1.60 ng/dL 2016 MEAN GLUC 6795611 Calc Mean Gluc 163 mg/dL 2016 GFR CALC 0665408 GFR Non Afr Amr >60 mL/min 2016 GFR CALC 8547525 GFR Afr Amr >60 mL/min 2016 CBC 5212311 WBC 8.1 10e9/L 2016 CBC 6193460 RBC 4.41 10e12/L 2016 CBC 8733171 HEMOGLOBIN 13.2 g/dL 2016 CBC 5993870 HEMATOCRIT 39.6 % 2016 CBC 5732372 MCV 89.8 fL 2016 CBC 4405009 MCH 29.9 pg 2016 CBC 4981740 MCHC 33.3 g/dL 2016 CBC 6298554 PLATELET COUNT 298 10e9/L 2016 CBC 6488886 Mean Plt Volume 10.5 fL 2016 CBC 6882393 Neut Auto 61.3 % 2016 CBC 0716914 Lymph Auto 26.3 % 2016 CBC 8814686 [place] Auto 7.7 % 2016 CBC 3497368 RDW 13.6 % 2016 CBC 5987791 Eos Auto 4.2 % 2016 CBC 3741363 Baso Auto 0.5 % 2016 CBC 4276415 Neutrophil Abs 4.97 10e9/L 2016 CBC 4980672 Lymphocyte Abs 2.13 10e9/L 2016 CBC 5531302 Monocyte Abs 0.62 10e9/L 2016 CBC 5029636 Eosinophil Abs 0.34 10e9/L 2016 CBC 4262565 RDW-SD 44.1 fL 2016 CBC 2932390 Basophil Abs 0.04 10e9/L 2016 CHEM 14 [id number] AST 19 U/L 2016 CHEM 14 3192960 ALT 26 U/L 2016 CHEM 14 2458870 BUN 20 mg/dL 2016 CHEM 14 1777631 ALBUMIN 4.1 g/dL 2016 CHEM 14 1227391 CHLORIDE 99 mmol/L 2016 CHEM 14 4329879 Bili Total 0.3 mg/dL 2016 CHEM 14 6789333 ALK PHOS 55 U/L 2016 CHEM 14 1761059 SODIUM 135 mmol/L 2016 CHEM 14 [id number] CREATININE 0.87 mg/dL 2016 CHEM 14 5989669 CALCIUM 9.3 mg/dL 2016 CHEM 14 0296827 POTASSIUM 4.0 mmol/L 2016 CHEM 14 7794366 TOTAL PROTEIN 7.0 g/dL 2016 CHEM 14 5399452 GLUCOSE 149 mg/dL 2016 CHEM 14 2632746 Bicarbonate 26 mmol/L 2016 CHEM 14 5635778 AGAP 10 mmol/L 2016 Review of Systems [...] 4: J0696 05/28/2017 THER/PROPH/DIAG INJ SC/IM CPT-4: 14610 05/19/2017 KETOROLAC TROMETHAMINE INJ CPT-4: J1885 05/19/2017 TRIAMCINOLONE ACET INJ NOS CPT-4: J3301 03/26/2016 TRIAMCINOLONE ACET INJ NOS CPT-4: J3301 06/07/2015 THER/PROPH/DIAG INJ SC/IM CPT-4: 79548 12/07/2014 TRIAMCINOLONE ACET INJ NOS CPT-4: J3301 12/07/2014 Vital Signs Date Vital 06/04/2018 Blood Pressure 1: 144/76 Code: 8480-6 BMI: 32.0 Code: 18382-1 Heart Rate 1: 82 bpm Height: 5'7" SpO2: 96% Temperature: 36.5 (C) / 97.7 (F) Weight: 204 lbs 03/11/2018 Blood Pressure 1: 142/82 Code: 8480-6 BMI: 32.1 Code: 70708-5 Heart Rate 1: 87 bpm Height: 5'7" SpO2: 97% Weight: 205 lbs 02/17/2018 Blood Pressure 1: 132/76 Code: 8480-6 BMI: 33.5 Code: 75209-7 Heart Rate 1: 92 bpm Height: 5'7" SpO2: 98% Weight: 214 lbs 12/21/2017 Blood Pressure 1: 154/78 Code: 8480-6 BMI: 33.5 Code: 78157-4 Heart Rate 1: 93 bpm Height: 5'7" SpO2: 96% Weight: 214 lbs 11/30/2017 Blood Pressure 1: 148/88 Code: 8480-6 BMI: 33.5 Code: 05672-4 Heart Rate 1: 80 bpm Height: 5'7" SpO2: 97% Temperature: 36.9 (C) / 98.5 (F) Weight: 214 lbs 05/28/2017 Blood Pressure 1: 128/70 Code: 8480-6 BMI: 31.3 Code: 50866-9 Heart Rate 1: 103 bpm Height: 5'7" SpO2: 98% Temperature: 36.7 (C) / 98.1 (F) Weight: 200 lbs 05/19/2017 Blood Pressure 1: 150/72 Code: 8480-6 04/16/2017 Blood Pressure 1: 146/88 Code: 8480-6 BMI: 31.3 Code: 07188-5 Heart Rate 1: 96 bpm Height: 5'7" SpO2: 94% Temperature: 37.2 (C) / 99.0 (F) Weight: 200 lbs 02/10/2017 Blood Pressure 1: 132/72 Code: 8480-6 BMI: 31.3 Code: 13764-2 Heart Rate 1: 99 bpm Height: 5'7" SpO2: 97% Weight: 200 lbs 02/02/2017 Blood Pressure 1: 140/68 Code: 8480-6 BMI: 31.4 Code: 13887-7 Heart Rate 1: 82 bpm Height: 5'7" SpO2: 97% Weight: 200 lbs 8 oz 01/27/2017 Blood Pressure 1: 142/80 Code: 8480-6 BMI: 32.2 Code: 14232-3 Height: 5'7" Temperature: 37.2 (C) / 98.9 (F) Weight: 205 lbs 8 oz 11/07/2016 Blood Pressure 1: 148/82 Code: 8480-6 BMI: 32.7 Code: 72455-0 Heart Rate 1: 106 bpm Height: 5'7" SpO2: 97% Weight: 209 lbs 03/26/2016 Blood Pressure 1: 140/86 Code: 8480-6 Heart Rate 1: 90 bpm Height: SpO2: 97% Weight: 12/13/2015 Blood Pressure 1: 132/72 Code: 8480-6 BMI: 31.2 Code: 25525-3 Heart Rate 1: 84 bpm Height: 5'7" SpO2: 98% Weight: 199 lbs 08/15/2015 Blood Pressure 1: 138/88 Code: 8480-6 BMI: 32.1 Code: 44585-2 Heart Rate 1: 94 bpm Height: 5'7" SpO2: 97% Weight: 205 lbs 06/13/2015 Blood Pressure 1: 188/88 Code: 8480-6 Blood Pressure 1: 146/78 Code: 8480-6 BMI: 32.6 Code: 30516-7 Heart Rate 1: 97 bpm Height: 5'7" SpO2: 98% Weight: 208 lbs 06/07/2015 Blood Pressure 1: 128/82 Code: 8480-6 BMI: 32.4 Code: 39455-3 Heart Rate 1: 80 bpm Height: 5'7" SpO2: 99% Weight: 207 lbs 03/13/2015 Blood Pressure 1: 124/70 Code: 8480-6 BMI: 31.6 Code: 19929-9 Heart Rate 1: 103 bpm Height: 5'7" Respiratory Rate: 18 bpm SpO2: 97% Temperature: 36.6 (C) / 97.8 (F) Weight: 202 lbs 12/07/2014 Blood Pressure 1: 140/80 Code: 8480-6 BMI: 32.3 Code: 99592-0 Heart Rate 1: 97 bpm Height: 5'7" SpO2: 99% Weight: 206 lbs 09/07/2014 Blood Pressure 1: 132/78 Code: 8480-6 BMI: 31.2 Code: 94270-5 Heart Rate 1: 92 bpm Height: 5'7" [...] with shunt placement- 08-11-14- Dr Ruvalcaba in [place] did surgery headache Onset and Resolution ongoing [...] Encounters Encounter Performer Location Codes Date ( [id number] EST. PATIENT, LEVEL IV Diagnosis: Type 2 diabetes mellitus with hyperglycemia[ICD10: E11.65] Diagnosis: Mixed hyperlipidemia[ICD10: E78.2] Diagnosis: Other allergic rhinitis[ICD10: J30.89] Kaylan Dunham MD, [facility] CPT-4: 34066 06/04/2018 ([id number]) 27142 EST. PATIENT, LEVEL IV Diagnosis: Type 2 diabetes mellitus with hyperglycemia[ICD10: E11.65] Diagnosis: Mixed hyperlipidemia[ICD10: E78.2] Diagnosis: Essential (primary) hypertension[ICD10: I10] [facility] CPT-4: 45296 03/11/2018 17225 EST. PATIENT, LEVEL III Diagnosis: Paresthesia of skin[ICD10: R20.2] Aditi Dunham MD, [facility] CPT-4: 01688 02/17/2018 [id number] EST. PATIENT, LEVEL IV Diagnosis: Pain in right shoulder[ICD10: M25.511] Diagnosis: Rash and other nonspecific skin eruption[ICD10: R21] Aditi Dunham MD, [facility] CPT-4: 58598 12/21/2017 63905 EST. PATIENT, LEVEL IV Diagnosis: Other acute sinusitis[ICD10: J01.80] Diagnosis: Other allergic rhinitis[ICD10: J30.89] Diagnosis: Localized edema[ICD10: R60.0] Aditi Dunham MD [facility] CPT-4: 15261 11/30/2017 ([id number]) 41524 EST. PATIENT, LEVEL III Diagnosis: Acute recurrent maxillary sinusitis[ICD10: J01.01] Diagnosis: Cough[ICD10: R05] Tavia Dunham MD, [facility] CPT-4: 92553 05/28/2017 ([id number]) 79734 EST. PATIENT, LEVEL III Diagnosis: Acute laryngopharyngitis[ICD10: J06.0] Diagnosis: Cough[ICD10: R05] Tavia Dunham MD, [facility] CPT-4: 82394 04/16/2017 84300 EST. PATIENT, LEVEL III Diagnosis: Left lower quadrant pain[ICD10: R10.32] Aditi Dunham MD, [facility] CPT-4: 56350 02/10/2017 ([id number]) 28759 EST. PATIENT, LEVEL III Diagnosis: Pain in thoracic spine[ICD10: M54.6] Diagnosis: Other muscle spasm[ICD10: M62.838] Tavia Dunham MD, [facility] CPT- 4: 56847 02/02/2017 ([id number]) 05594 EST. PATIENT, LEVEL IV Diagnosis: Other acute pancreatitis without necrosis or infection[ICD10: K85.80] Diagnosis: Epigastric pain[ICD10: R10.13] Diagnosis: Type 2 diabetes mellitus without complications[ICD10: E11.9] Tavia Dunham MD, [facility] CPT-4: 67672 01/27/2017 [id number] EST. PATIENT, LEVEL IV Diagnosis: Essential (primary) hypertension[ICD10: I10] Diagnosis: Type 1 diabetes mellitus without complications[ICD10: E10.9] Diagnosis: Other specified hypothyroidism[ICD10: E03.8] Diagnosis: Bilateral primary osteoarthritis of hip[ICD10: M16.0] Diagnosis: Actinic keratosis[ICD10: L57.0] Aditi Dunham MD, [facility] CPT-4: 04453 11/07/2016 [id number] EST. PATIENT, LEVEL III Diagnosis: Other acute sinusitis[ICD10: J01.80] Diagnosis: Other allergic rhinitis[ICD10: J30.89] Diagnosis: Cough[ICD10: R05] Aditi Dunham MD, [facility] CPT-4: 67753 03/26/2016 ([id number]) [id number] EST. PATIENT, LEVEL IV Diagnosis: Essential (primary) hypertension[ICD10: I10] Diagnosis: Pure hyperglyceridemia[ICD10: E78.1] Tavia Dunham MD, [facility] CPT- 4: 31914 12/13/2015 ([id number]) [id number] EST. PATIENT, LEVEL III Diagnosis: Essential (primary) hypertension[ICD10: I10] Diagnosis: (Idiopathic) normal pressure hydrocephalus[ICD10: G91.2] Tavia Dunham MD, [facility] CPT-4: 66090 08/15/2015 [id number] EST. PATIENT, LEVEL III Diagnosis: Other acute nonsuppurative otitis media, right ear[ICD10: H65.191] Diagnosis: Acute upper respiratory infection, unspecified[ICD10: J06.9] Aditi Dunham MD, [facility] CPT-4: 68580 06/13/2015 ([id number]) 19735 EST. PATIENT, LEVEL III Diagnosis: Acute recurrent maxillary sinusitis[ICD10: J01.01] Diagnosis: Allergic rhinitis due to pollen[ICD10: J30.1] Kaylan Dunham MD, [facility] CPT-4: 06518 06/07/2015 ([id number]) 09056 EST. PATIENT, LEVEL IV Diagnosis: (Idiopathic) normal pressure hydrocephalus[ICD10: G91.2] Diagnosis: Essential (primary) hypertension[ICD10: I10] Diagnosis: Dizziness and giddiness[ICD10: R42] Diagnosis: Nausea with vomiting, unspecified[ICD10: R11.2] Kaylan Dunham MD, [facility] CPT-4: 69998 03/13/2015 24106 EST. PATIENT, LEVEL III Diagnosis: Acute sinusitis, unspecified[ICD10: J01.90] Diagnosis: Allergic rhinitis, unspecified[ICD10: J30.9] Tavia Dunham MD, [facility] CPT-4: 13160 12/07/2014 ([id number]) 84085 EST. PATIENT, LEVEL IV Diagnosis: ESSENTIAL HYPERTENSION[ICD9: 401.9] Diagnosis: DIABETES TYPE II[ICD9: 250.00] Diagnosis: NPH (normal pressure hydrocephalus)[ICD9: 331.5] Diagnosis: Hypertriglyceridemia[ICD9: 272.1] Kaylan Melendez Tavia Dunham MD, [facility] CPT- 4: 33530 09/07/2014 ([id number]) OFFICE/OUTPATIENT VISIT NEW Diagnosis: DIABETES TYPE II[ICD9: 250.00] Diagnosis: ESSENTIAL HYPERTENSION[ICD9: 401.9] Diagnosis: NPH (normal pressure hydrocephalus)[ICD9: 331.5] Diagnosis: Abnormal gait[ICD9: 781.2] Diagnosis: VITAMIN D DEFICIENCY[ICD9: 268.9] Tavia Dunham MD, [facility] CPT- 4: 58999 08/07/2014 Plan of Care Planned Activity Notes [...] spray. 06/04/2018 [facility]ment[facility] [phone] [facility] [phone] (30 min) Complex 06/04/2018 Patient Education: Patient Medication Summary Completed 06/04/2018 Patient Education: Cholesterol Management Completed 06/04/2018 Patient Education: Patient Medication Summary Completed 05/25/2018 Care Plan: A1C HPLC [facility] : 31562-7 Pending 05/25/2018 Referral: Ammon Joiner Patient informed. [...] home. 03/11/2018 Appointment: [facility] [phone] [facility] [phone] (30 min) Complex 03/11/2018 Patient Education: Patient Medication Summary Completed 03/11/2018 Patient Education: Cholesterol Management Completed 03/11/2018 Patient Education: Hypertension Completed 03/11/2018 Care Plan: Referral Order SNOMED-CT : [id number] Pending 03/11/2018 Visit Plan: Parasthesia - ongoing for about a month - will send RX and refer pt for EMG - The pt is to use prn antiinflammatories to manage acute pain. The patient is to call the office if the pain is worsening or does not improve. 02/17/2018 Appointment: Aditi Hamilton WPtel: [facility]66[facility] (15 min) Moderate 02/17/2018 Patient Education: [...] warmth, discharge. 12/21/2017 Appointment: Aditi Hamilton WPtel: [facility] [place] (15 min) Moderate 12/21/2017 Patient Education: Patient Medication Summary Completed 12/21/2017 Appointment: Tavia Dunham WPtel: [facility] [place] (15 min) Moderate 12/02/2017 Visit Plan: [...] edema. 11/30/2017 Appointment: Aditi Hamilton WPtel: [phone] [facility] [place] (15 min) Moderate 11/30/2017 Patient Education: Patient Medication Summary Completed 11/30/2017 Care Plan: Comp Metabolic Pending 11/30/2017 Care Plan: Cbc With Differential Pending 11/30/2017 Care Plan: %Hba1C LOINC : 74168-4 Pending 11/30/2017 Care Plan: Lipid Pending 11/30/2017 Care Plan: Tsh Pending 11/30/2017 Care Plan: Free T4 Pending 11/30/2017 Appointment: Tavia Dunham WPtel: [phone] [facility] [place] (15 min) Moderate 11/26/2017 Appointment: Kaylan Melendez WPtel: [phone] [phone] [place] (30 min) Complex 08/13/2017 Appointment: Tavia Dunham WPtel: [phone] [facility] [place] (15 min) Moderate 08/04/2017 Appointment: Tavia Dunham WPtel: [phone] [facility] [place] (15 min) Moderate 07/20/2017 Visit Plan: [...] today 05/28/2017 Appointment: Tavia Dunham WPtel: [phone] [facility] [place] (30 min) Complex 05/28/2017 Patient Education: [...] pharmacy. 04/16/2017 Appointment: Tavia Dunham WPtel: [phone] [facility] (15 min) Moderate 04/16/2017 Patient Education: Patient [...] or concerns. 02/10/2017 Appointment: Aditi Hamilton WPtel: [phone] [facility] [place] (15 min) Moderate 02/10/2017 Patient Education: Patient Medication Summary Completed 02/10/2017 Patient Education: Obesity Completed 02/10/2017 Visit Plan: Pain in Thoracic spine with muscle spasm - ibuprofen 600mg three times daily x 3 days, rx for cyclobenzaprine. 02/02/2017 App[facility]ment: [phone] [place] (15 min) Moderate 02/02/2017 Patient Education: [...] today. 01/27/2017 Appointment: [facility]el[phone] (15 min) Moderate 01/27/2017 Patient Education: [...] symptoms. 11/07/2016 Appointment: [facility] [phone] [facility] (30 min) Complex 11/07/2016 Patient Education: [...] spray. 03/26/2016 Appointment: Ad[facility] Hamilton [facility]el: [phone] [facility] [address] [facility] [address] (30 min) Complex 03/26/2016 Patient [...] to medications. 12/13/2015 Appointment: Tavia Dunham WPtel: [facility] (15 min) Moderate 12/13/2015 Patient Education: Patient [...] on supplement. 08/07/2014 Appointment: Tavia Dunham WPtel: [address] [place], [place] [address] [place] (S) New Patient 08/07/2014 Patient Education: [...]
--- OUTSIDE RECORDS SUMMARY | 2018-10-08 11:12 | XMS REPORT | CCD ---
Author Author [facility] Organization [facility] Address [address] [place] [address] Phone Care Team Providers Care Nutrition Professor Name Role Phone PP Unavailable CCM Unavailable Summary Purpose Interface Exchange Insurance Providers Payer name Policy type / Coverage type Covered republican ID Effective Begin Date Effective End Date Blue Cross Blue [facility] Blue Cross/Blue [facility] [place] [id number] Unknown Family history Mother Diagnosis Age At Onset Cancer Unknown Arthritis Unknown Depression Unknown Hyperlipidemia Unknown Diabetes mellitus Type 2 Unknown Social History Social History Element Codes Description Effective Dates Marital status Unknown Yinka 08/07/2014 Number of children Unknown 0 08/07/2014 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[employer] 08/07/[address]: 379019579 Never smoker 08/07/[address]: 694741650 Never drinks alcohol 08/07/2014 Allergies, Adverse Reactions, [...] 100 unit/mL (3 mL) subcutaneous pen RxNorm: 885454 30 Unit(s) SQ BID 06/04/2018 10/01/2018 Active update RX -increase to 35 units BID if blood sugars over 200 Augmentin 875 mg-125 mg tablet RxNorm: 047520 1 Tablet(s) PO BID 06/04/2018 06/10/2018 Active hydrochlorothiazide 25 mg tablet RxNorm: 268026 TAKE 1 TABLET BY MOUTH ONCE DAILY 03/23/2018 No Stop Date Active Levemir FlexTouch U-100 Insulin 100 unit/mL (3 mL) subcutaneous pen RxNorm: 454833 30 Unit(s) SQ QAM and 25 Units SQ QPM 03/18/2018 06/03/2018 Inactive Levemir FlexTouch U-100 Insulin 100 unit/mL (3 mL) subcutaneous pen RxNorm: 536201 Unit(s) 03/11/2018 03/17/2018 Inactive 30 q am and 25 units q PM pravastatin 40 mg tablet RxNorm: 803832 1 Tablet(s) PO daily take with coenzyme q 10 daily 03/03/2018 02/25/2019 Active Levemir FlexTouch U-100 Insulin 100 unit/mL (3 mL) subcutaneous pen RxNorm: 416515 Unit(s) INJECT 25 UNITS SUBCUTANEOUSLY TWICE DAILY 03/03/2018 03/10/2018 Inactive pravastatin 10 mg tablet RxNorm: 925130 1 Tablet(s) PO daily take with coenzyme q 10 daily 02/26/2018 03/02/2018 Inactive prednisone 20 mg tablet RxNorm: 706098 2 Tablet(s) PO daily 02/17/2018 02/21/2018 Inactive levothyroxine 125 mcg tablet RxNorm: 528522 TAKE 1 TABLET BY MOUTH ONCE DAILY 01/11/2018 No Stop Date Active cyclobenzaprine 5 mg tablet RxNorm: 798721 1 Tablet(s) PO TID as needed 12/28/2017 01/11/2018 Inactive Zorvolex 35 mg capsule RxNorm: 0385302 1 Capsule(s) PO TID as needed 12/25/2017 05/23/2018 Inactive Levemir FlexTouch U-100 Insulin 100 unit/mL (3 mL) subcutaneous pen RxNorm: 273160 INJECT 2O UNITS SUBCUTANEOUSLY TWICE DAILY 12/21/2017 03/02/2018 Inactive cyclobenzaprine 5 mg tablet RxNorm: 396543 1 Tablet(s) PO TID as needed 12/21/2017 12/25/2017 Inactive doxycycline hyclate 100 mg capsule RxNorm: 3247715 1 Capsule(s) PO BID 12/21/2017 12/30/2017 Inactive venlafaxine ER 150 mg capsule,extended release 24 hr RxNorm: 777625 TAKE 1 CAPSULE BY MOUTH ONCE DAILY 12/10/2017 No Stop Date Active Singulair 10 mg tablet RxNorm: 295815 1 Tablet(s) PO daily 12/03/2017 12/02/2017 Inactive Singulair 10 mg tablet RxNorm: 265452 1 Tablet(s) PO daily 12/03/2017 01/01/2018 Inactive Zithromax Z-Kulwant 250 mg tablet RxNorm: 179735 1 Tablet(s) PO UD 12/03/2017 03/10/2018 Inactive z pack as directed Kenalog 40 mg/mL suspension for injection RxNorm: 8507564 1 Milliliter(s) Inj 11/30/2017 11/30/2017 Inactive prednisone 20 mg tablet RxNorm: 750598 2 Tablet(s) PO daily 11/30/2017 12/04/2017 Inactive Augmentin 875 mg-125 mg tablet RxNorm: 902176 1 Tablet(s) PO BID 11/27/2017 11/26/2017 Inactive Augmentin 875 mg-125 mg tablet RxNorm: 857073 1 Tablet(s) PO BID 11/27/2017 12/03/2017 Inactive Zorvolex 35 mg capsule RxNorm: 9557318 1 Capsule(s) PO TID as needed 11/09/2017 12/24/2017 Inactive hydrochlorothiazide 25 mg tablet RxNorm: 561416 1 Tablet(s) PO daily 10/22/2017 02/18/2018 Inactive enalapril maleate 5 mg tablet RxNorm: 654370 1 Tablet(s) PO daily TAKE ONE TABLET BY MOUTH ONCE DAILY 08/21/2017 02/16/2018 Inactive Levemir FlexTouch U-100 Insulin 100 unit/mL (3 mL) subcutaneous pen RxNorm: 062768 20 Unit(s) SQ BID 07/30/2017 12/20/2017 Inactive levothyroxine 125 mcg tablet RxNorm: 172761 TAKE ONE TABLET BY MOUTH ONCE DAILY 06/29/2017 01/10/2018 Inactive venlafaxine ER 150 mg capsule,extended release 24 hr RxNorm: 767693 1 Capsule(s) PO daily TAKE ONE CAPSULE BY MOUTH ONCE DAILY 06/08/2017 12/04/2017 Inactive prednisone 20 mg tablet RxNorm: 525500 1 Tablet(s) PO daily 06/02/2017 06/06/2017 Inactive prednisone 20 mg tablet RxNorm: 748072 1 Tablet(s) PO daily 06/01/2017 06/05/2017 Inactive Kenalog 40 mg/mL suspension for injection RxNorm: 2963808 1 Milliliter(s) Inj 05/28/2017 05/28/2017 Inactive cefdinir 300 mg capsule RxNorm: 176767 1 Capsule(s) PO BID 05/28/2017 06/03/2017 Inactive ceftriaxone 500 mg solution for injection RxNorm: 9915346 1 Inj 05/28/2017 05/28/2017 Inactive prednisone 20 mg tablet RxNorm: 786480 1 Tablet(s) PO daily 05/28/2017 05/31/2017 Inactive Keflex 500 mg capsule RxNorm: 030532 1 Capsule(s) PO TID 05/26/2017 06/01/2017 Inactive Keflex 500 mg capsule RxNorm: 337563 1 Capsule(s) PO TID 05/26/2017 05/25/2017 Inactive hydrocodone 10 mg-chlorpheniramine 8 mg/5 mL oral susp extend.rel 12hr RxNorm: 9072921 5-10 Milliliter(s) PO TID as needed 04/16/2017 No Stop Date Active Tussionex Pennkinetic ER 10 mg-8 mg/5 mL suspension,extended release RxNorm: 9414158 5 Milliliter(s) PO BID 04/16/2017 04/27/2017 Inactive Zithromax Z-Kulwant 250 mg tablet RxNorm: 771371 1 Tablet(s) PO UD 03/25/2017 04/15/2017 Inactive z pack as directed enalapril maleate 5 mg tablet RxNorm: 696064 TAKE ONE TABLET BY MOUTH ONCE DAILY 02/26/2017 08/20/2017 Inactive Levemir FlexTouch 100 unit/mL (3 mL) subcutaneous insulin pen RxNorm: 618095 20 Unit(s) SQ BID 02/10/2017 07/11/2017 Inactive Zorvolex 35 mg capsule RxNorm: 9984477 1 Capsule(s) PO TID as needed 02/10/2017 11/08/2017 Inactive valacyclovir 1 gram tablet RxNorm: 069103 1 Tablet(s) PO TID 02/10/2017 02/16/2017 Inactive Levemir FlexTouch 100 unit/mL (3 mL) subcutaneous insulin pen RxNorm: 428516 20 Unit(s) SQ BID 02/04/2017 02/09/2017 Inactive cyclobenzaprine 5 mg tablet RxNorm: 505037 1 Tablet(s) PO qhs x 3 nights and TID as needed muscle spasms 02/02/2017 No Stop Date Active levothyroxine 125 mcg tablet RxNorm: 801723 TAKE ONE TABLET BY MOUTH ONCE DAILY 12/08/2016 06/05/2017 Inactive venlafaxine ER 150 mg capsule,extended release 24 hr RxNorm: 029789 TAKE ONE CAPSULE BY MOUTH ONCE DAILY 12/01/2016 05/29/2017 Inactive Zorvolex 35 mg capsule RxNorm: 2683191 1 Capsule(s) PO TID as needed do not take meloxicam at the same time 11/07/2016 No Stop Date Active enalapril maleate 5 mg tablet RxNorm: 872676 TAKE ONE TABLET BY MOUTH ONCE DAILY 10/31/2016 12/29/2016 Inactive meloxicam 15 mg tablet RxNorm: 004386 TAKE ONE TABLET BY MOUTH ONCE DAILY 10/30/2016 03/10/2018 Inactive meloxicam 15 mg tablet RxNorm: 068169 TAKE ONE TABLET BY MOUTH ONCE DAILY 10/24/2016 10/29/2016 Inactive enalapril maleate 5 mg tablet RxNorm: 902450 TAKE ONE TABLET BY MOUTH ONCE DAILY 10/24/2016 10/30/2016 Inactive venlafaxine ER 150 mg capsule,extended release 24 hr RxNorm: 260301 TAKE ONE CAPSULE BY MOUTH ONCE DAILY 06/16/2016 11/12/2016 Inactive meloxicam 15 mg tablet RxNorm: 987786 TAKE ONE TABLET BY MOUTH ONCE DAILY 06/09/2016 10/06/2016 Inactive enalapril maleate 5 mg tablet RxNorm: 409566 TAKE ONE TABLET BY MOUTH ONCE DAILY 06/02/2016 09/29/2016 Inactive Zithromax Z-Kulwant 250 mg tablet RxNorm: 382406 1 Tablet(s) PO UD 05/21/2016 06/15/2016 Inactive levothyroxine 125 mcg tablet RxNorm: 809151 Tablet(s) TAKE ONE TABLET BY MOUTH ONCE DAILY 04/15/2016 10/11/2016 Inactive Levaquin 500 mg tablet RxNorm: 338383 1 Tablet(s) PO daily 04/03/2016 04/09/2016 Inactive Levaquin 500 mg tablet RxNorm: 076421 1 Tablet(s) PO daily 04/03/2016 04/02/2016 Inactive prednisone 20 mg tablet RxNorm: 406113 2 Tablet(s) PO daily 03/28/2016 04/01/2016 Inactive Zithromax Z-Kulwant 250 mg tablet RxNorm: 041707 1 Tablet(s) PO UD 03/26/2016 03/30/2016 Inactive zmike Kenalog 40 mg/mL suspension for injection RxNorm: 5609585 Milliliter(s) Inj 03/26/2016 03/26/2016 Inactive Zofran ODT 4 mg disintegrating tablet RxNorm: 313742 DISSOLVE ONE TABLET IN MOUTH EVERY 6 HOURS NEEDED 02/22/2016 02/29/2016 Inactive venlafaxine ER 150 mg capsule,extended release 24 hr RxNorm: 026971 TAKE ONE CAPSULE BY MOUTH ONCE DAILY 02/18/2016 06/15/2016 Inactive meloxicam 15 mg tablet RxNorm: 240361 TAKE ONE TABLET BY MOUTH ONCE DAILY 02/04/2016 06/02/2016 Inactive aspirin 81 mg chewable tablet RxNorm: 651187 1 Tablet(s) PO daily 12/13/2015 12/06/2016 Inactive biotin 2,500 mcg tablet RxNorm: 600513 1 Tablet(s) PO daily 12/13/2015 09/07/2016 Inactive hydrochlorothiazide 25 mg tablet RxNorm: 005865 1 Tablet(s) PO daily 12/13/2015 04/10/2016 Inactive enalapril maleate 5 mg tablet RxNorm: 900694 TAKE ONE TABLET BY MOUTH ONCE DAILY 11/22/2015 05/19/2016 Inactive venlafaxine ER 150 mg capsule,extended release 24 hr RxNorm: 662311 TAKE ONE CAPSULE BY MOUTH ONCE DAILY 11/14/2015 02/11/2016 Inactive levothyroxine 125 mcg tablet RxNorm: 198265 Tablet(s) TAKE ONE TABLET BY MOUTH ONCE DAILY 11/06/2015 04/14/2016 Inactive levothyroxine 125 mcg tablet RxNorm: 703937 Tablet(s) TAKE ONE TABLET BY MOUTH ONCE DAILY 08/06/2015 11/03/2015 Inactive meclizine 25 mg tablet RxNorm: 650818 1/2-1 Tablet(s) PO Q6 as needed 07/16/2015 No Stop Date Active Flonase Allergy Relief 50 mcg/actuation nasal spray,suspension RxNorm: 1 [place] NASAL daily 06/13/2015 No Stop Date Active prednisone 20 mg tablet RxNorm: 496512 2 Tablet(s) PO daily 06/13/2015 06/17/2015 Inactive Augmentin 875 mg-125 mg tablet RxNorm: 016487 1 Tablet(s) PO BID 06/13/2015 06/19/2015 Inactive Zithromax Z-Kulwant 250 mg tablet RxNorm: 995866 1 Tablet(s) PO UD 06/07/2015 06/11/2015 Inactive raymond Kenalog 40 mg/mL suspension for injection RxNorm: 9566037 Milliliter(s) Inj 06/07/2015 06/07/2015 Inactive venlafaxine ER 150 mg capsule,extended release 24 hr RxNorm: 598067 TAKE ONE CAPSULE BY MOUTH ONCE DAILY 05/14/2015 11/09/2015 Inactive Augmentin 500 mg-125 mg tablet RxNorm: 063748 1 Tablet(s) PO TID 04/25/2015 05/04/2015 Inactive Augmentin 500 mg-125 mg tablet RxNorm: 757831 1 Tablet(s) PO TID 04/25/2015 04/24/2015 Inactive pravastatin 10 mg tablet RxNorm: 981760 1 Tablet(s) PO daily take with coenzyme q 10 daily 03/21/2015 03/20/2015 Inactive DC crestor pravastatin 10 mg tablet RxNorm: 250224 1 Tablet(s) PO daily take with coenzyme q 10 daily 03/21/2015 07/18/2015 Inactive DC crestor Zofran ODT 4 mg disintegrating tablet RxNorm: 363279 1 Tablet(s) PO Q6 PRN 03/13/2015 02/21/2016 Inactive levothyroxine 125 mcg tablet RxNorm: 503387 TAKE ONE TABLET BY MOUTH ONCE DAILY 02/13/2015 08/05/2015 Inactive meloxicam 15 mg tablet RxNorm: 917239 1 Tablet(s) PO daily 01/28/2015 01/22/2016 Inactive Zofran 4 mg tablet RxNorm: 305453 1 Tablet(s) PO Q6-8H as needed nausea 01/24/2015 No Stop Date Active Trulicity 1.5 mg/0.5 mL subcutaneous pen injector RxNorm: 0191799 0.75mg Milliliter(s) SQ QW 01/10/2015 03/10/2018 Inactive venlafaxine ER 150 mg capsule,extended release 24 hr RxNorm: 982072 1 Capsule(s) PO daily 01/10/2015 05/09/2015 Inactive enalapril maleate 5 mg tablet RxNorm: 800828 1 Tablet(s) PO daily 01/04/2015 07/02/2015 Inactive amoxicillin 500 mg tablet RxNorm: 541299 1 Tablet(s) PO BID 12/07/2014 12/06/2014 Inactive Probiotic & Acidophilus 300 million cell-250 mg capsule RxNorm: 1 Capsule(s) PO BID 12/07/2014 12/16/2014 Inactive amoxicillin 500 mg tablet RxNorm: 599618 1 Tablet(s) PO BID 12/07/2014 12/16/2014 Inactive Kenalog 40 mg/mL suspension for injection RxNorm: 3571006 1 Milliliter(s) Inj 12/07/2014 12/07/2014 Inactive meloxicam 15 mg tablet RxNorm: 292247 1 Tablet(s) PO daily 10/24/2014 10/23/2014 Inactive meloxicam 15 mg tablet RxNorm: 730827 1 Tablet(s) PO daily 10/24/2014 01/27/2015 Inactive azithromycin 500 mg tablet RxNorm: 206337 1 Tablet(s) PO daily 10/11/2014 10/15/2014 Inactive azithromycin 500 mg tablet RxNorm: 813868 1 Tablet(s) PO daily 10/11/2014 10/10/2014 Inactive levothyroxine 125 mcg tablet RxNorm: 859611 1 Tablet(s) PO daily 10/06/2014 02/02/2015 Inactive enalapril maleate 5 mg tablet RxNorm: 421629 1 Tablet(s) PO daily 08/29/2014 12/26/2014 Inactive enalapril maleate 5 mg tablet RxNorm: 685486 1 Tablet(s) PO daily 08/25/2014 08/28/2014 Inactive Medroxy oral RxNorm: 4170381 oral No Start Date Active Vitamin D3 5,000 unit tablet RxNorm: 438605 1 Tablet(s) PO daily No Start Date Active fluconazole 200 mg tablet RxNorm: 579084 Tablet(s) PO No Start Date Active estradiol 2 mg tablet RxNorm: 108303 1 Tablet(s) PO daily No Start Date Active fenofibrate nanocrystallized 145 mg tablet RxNorm: 544964 1 Tablet(s) PO daily No Start Date Active hydrocodone 5 mg-acetaminophen 325 mg tablet RxNorm: 234564 1-2 Tablet(s) PO Q4-6H as needed No Start Date Active enalapril maleate 5 mg tablet RxNorm: 161889 1 Tablet(s) PO daily No Start Date 08/24/2014 Inactive glimepiride 4 mg tablet RxNorm: 160627 1 Tablet(s) PO daily No Start Date 01/26/2017 Inactive meclizine 25 mg tablet RxNorm: 824666 1/2-1 Tablet(s) PO Q6 as needed No Start Date 07/15/2015 Inactive Trulicity 0.75 mg/0.5 mL subcutaneous pen injector RxNorm: 9865638 0.75mg Milliliter(s) SQ QW No Start Date 01/09/2015 Inactive metformin 1,000 mg tablet RxNorm: 271982 Tablet(s) PO BID No Start Date 01/26/2017 Inactive venlafaxine ER 150 mg capsule,extended release 24 hr RxNorm: 771747 1 Capsule(s) PO daily No Start Date 01/09/2015 Inactive meloxicam 15 mg tablet RxNorm: 134156 1 Tablet(s) PO daily No Start Date 10/23/2014 Inactive levothyroxine 125 mcg tablet RxNorm: 122933 1 Tablet(s) PO daily No Start Date 10/05/2014 Inactive Levemir FlexTouch 100 unit/mL (3 mL) subcutaneous insulin pen RxNorm: 253384 15 Unit(s) SQ daily No Start Date 02/03/2017 Inactive Zithromax Z-Kulwant 250 mg tablet RxNorm: 676319 1 Tablet(s) PO UD No Start Date 05/20/2016 Inactive Fish Oil 1,000 mg capsule RxNorm: 1 Capsule(s) PO BID No Start Date 11/04/2016 Inactive Zofran 4 mg tablet RxNorm: 977046 1 Tablet(s) PO Q6-8H as needed nausea No Start Date 01/23/2015 Inactive Crestor 10 mg tablet RxNorm: 730666 1 Tablet(s) PO daily No Start Date 03/20/2015 Inactive Medication Administered Medication Codes Instructions Start Date Status Kenalog 40 mg/mL suspension for injection RxNorm: 9818413 1Milliliter 11/30/2017 No longer Active Kenalog 40 mg/mL suspension for injection RxNorm: 7768411 1Milliliter 05/28/2017 No longer Active ceftriaxone 500 mg solution for injection RxNorm: 6746358 1 05/28/2017 No longer Active Kenalog 40 mg/mL suspension for injection RxNorm: 4565149 Milliliter 03/26/2016 No longer Active Kenalog 40 mg/mL suspension for injection RxNorm: 5773837 Milliliter 06/07/2015 No longer Active Kenalog 40 mg/mL suspension for injection RxNorm: 6706545 1Milliliter 12/07/2014 No longer Active Immunizations Vaccine [...] Item Item Code Result Date CHEM 14 [id number] AST TNP:Lab Request 01/27/2017 CHEM 14 [id number] ALT TNP:Lab Request 01/27/2017 CHEM 14 [id number] BUN TNP:Lab Request 01/27/2017 CHEM 14 [id number] ALBUMIN TNP:Lab Request 01/27/2017 CHEM 14 [id number] CHLORIDE TNP:Lab Request 01/27/2017 CHEM 14 [id number] Bili Total TNP:Lab Request 01/27/2017 CHEM 14 [id number] ALK PHOS TNP:Lab Request 01/27/2017 CHEM 14 [id number] SODIUM TNP:Lab Request 01/27/2017 CHEM 14 [id number] CREATININE TNP:Lab Request 01/27/2017 CHEM 14 [id number] CALCIUM TNP:Lab Request 01/27/2017 CHEM 14 [id number] POTASSIUM TNP:Lab Request 01/27/2017 CHEM 14 [id number] TOTAL PROTEIN TNP:Lab Request 01/27/2017 CHEM 14 [id number] GLUCOSE TNP:Lab Request 01/27/2017 CHEM 14 [id number] Bicarbonate TNP:Lab Request 01/27/2017 CHEM 14 [id number] AGAP TNP:Lab Request 01/27/2017 AMYLASE [id number] Amylase Lvl TNP:Lab Request 01/27/2017 LIPID GRP CHOLESTEROL 273 mg/dL 2016 LIPID GRP Triglyceride 583 mg/dL 2016 LIPID GRP HDL CHOLESTEROL 48 mg/dL 2016 LIPID GRP Chol/HDL Ratio 5.69 ratio 2016 LIPID GRP NON-HDL Chol 225 mg/dL 2016 LIPID GRP LDL Cholesterol N/A Trig >400 2016 A1C HPLC 8416984 Hgb A1c 01852-2 7.3 % 2016 TSH 1646324 TSH 1.340 uIU/mL 2016 FREE T4 7291598 T4 Free 1.60 ng/dL 2016 MEAN GLUC 5762076 Calc Mean Gluc 163 mg/dL 2016 GFR CALC 4214218 GFR Non Afr Amr >60 mL/min 2016 GFR CALC 8298887 GFR Afr Amr >60 mL/min 2016 CBC 6415765 WBC 8.1 10e9/L 2016 CBC 5621619 RBC 4.41 10e12/L 2016 CBC 2260666 HEMOGLOBIN 13.2 g/dL 2016 CBC 3851935 HEMATOCRIT 39.6 % 2016 CBC 3845770 MCV 89.8 fL 2016 CBC 0682803 MCH 29.9 pg 2016 CBC 1306340 MCHC 33.3 g/dL 2016 CBC 0198624 PLATELET COUNT 298 10e9/L 2016 CBC 7408265 Mean Plt Volume 10.5 fL 2016 CBC 4975812 Neut Auto 61.3 % 2016 CBC 5757782 Lymph Auto 26.3 % 2016 CBC 4820397 Potter Auto 7.7 % 2016 CBC 3677804 RDW 13.6 % 2016 CBC 6163246 Eos Auto 4.2 % 2016 CBC 1687118 Baso Auto 0.5 % 2016 CBC 1254106 Neutrophil Abs 4.97 10e9/L 2016 CBC 6215141 Lymphocyte Abs 2.13 10e9/L 2016 CBC 5536545 Monocyte Abs 0.62 10e9/L 2016 CBC 7121727 Eosinophil Abs 0.34 10e9/L 2016 CBC 7635222 RDW-SD 44.1 fL 2016 CBC 3284727 Basophil Abs 0.04 10e9/L 2016 CHEM 14 7845316 AST 19 U/L 2016 CHEM 14 8758981 ALT 26 U/L 2016 CHEM 14 9332703 BUN 20 mg/dL 2016 CHEM 14 9430893 ALBUMIN 4.1 g/dL 2016 CHEM 14 9623418 CHLORIDE 99 mmol/L 2016 CHEM 14 2987665 Bili Total 0.3 mg/dL 2016 CHEM 14 2480540 ALK PHOS 55 U/L 2016 CHEM 14 0092192 SODIUM 135 mmol/L 2016 CHEM 14 2944932 CREATININE 0.87 mg/dL 2016 CHEM 14 3443471 CALCIUM 9.3 mg/dL 2016 CHEM 14 3656979 POTASSIUM 4.0 mmol/L 2016 CHEM 14 7428422 TOTAL PROTEIN 7.0 g/dL 2016 CHEM 14 4169010 GLUCOSE 149 mg/dL 2016 CHEM 14 6044286 Bicarbonate 26 mmol/L 2016 CHEM 14 5340102 AGAP 10 mmol/L 2016 Review of Systems [...] 4: J0696 05/28/2017 THER/PROPH/DIAG INJ SC/IM CPT-4: 70201 05/19/2017 KETOROLAC TROMETHAMINE INJ CPT-4: J1885 05/19/2017 TRIAMCINOLONE ACET INJ NOS CPT-4: J3301 03/26/2016 TRIAMCINOLONE ACET INJ NOS CPT-4: J3301 06/07/2015 THER/PROPH/DIAG INJ SC/IM CPT-4: 60807 12/07/2014 TRIAMCINOLONE ACET INJ NOS CPT-4: J3301 12/07/2014 Vital Signs Date Vital 06/04/2018 Blood Pressure 1: 144/76 Code: 8480-6 BMI: 32.0 Code: 05066-8 Heart Rate 1: 82 bpm Height: 5'7" SpO2: 96% Temperature: 36.5 (C) / 97.7 (F) Weight: 204 lbs 03/11/2018 Blood Pressure 1: 142/82 Code: 8480-6 BMI: 32.1 Code: 53086-1 Heart Rate 1: 87 bpm Height: 5'7" SpO2: 97% Weight: 205 lbs 02/17/2018 Blood Pressure 1: 132/76 Code: 8480-6 BMI: 33.5 Code: 47673-0 Heart Rate 1: 92 bpm Height: 5'7" SpO2: 98% Weight: 214 lbs 12/21/2017 Blood Pressure 1: 154/78 Code: 8480-6 BMI: 33.5 Code: 87456-7 Heart Rate 1: 93 bpm Height: 5'7" SpO2: 96% Weight: 214 lbs 11/30/2017 Blood Pressure 1: 148/88 Code: 8480-6 BMI: 33.5 Code: 48403-0 Heart Rate 1: 80 bpm Height: 5'7" SpO2: 97% Temperature: 36.9 (C) / 98.5 (F) Weight: 214 lbs 05/28/2017 Blood Pressure 1: 128/70 Code: 8480-6 BMI: 31.3 Code: 32989-6 Heart Rate 1: 103 bpm Height: 5'7" SpO2: 98% Temperature: 36.7 (C) / 98.1 (F) Weight: 200 lbs 05/19/2017 Blood Pressure 1: 150/72 Code: 8480-6 04/16/2017 Blood Pressure 1: 146/88 Code: 8480-6 BMI: 31.3 Code: 00793-5 Heart Rate 1: 96 bpm Height: 5'7" SpO2: 94% Temperature: 37.2 (C) / 99.0 (F) Weight: 200 lbs 02/10/2017 Blood Pressure 1: 132/72 Code: 8480-6 BMI: 31.3 Code: 04042-4 Heart Rate 1: 99 bpm Height: 5'7" SpO2: 97% Weight: 200 lbs 02/02/2017 Blood Pressure 1: 140/68 Code: 8480-6 BMI: 31.4 Code: 45346-4 Heart Rate 1: 82 bpm Height: 5'7" SpO2: 97% Weight: 200 lbs 8 oz 01/27/2017 Blood Pressure 1: 142/80 Code: 8480-6 BMI: 32.2 Code: 05878-9 Height: 5'7" Temperature: 37.2 (C) / 98.9 (F) Weight: 205 lbs 8 oz 11/07/2016 Blood Pressure 1: 148/82 Code: 8480-6 BMI: 32.7 Code: 67989-4 Heart Rate 1: 106 bpm Height: 5'7" SpO2: 97% Weight: 209 lbs 03/26/2016 Blood Pressure 1: 140/86 Code: 8480-6 Heart Rate 1: 90 bpm Height: SpO2: 97% Weight: 12/13/2015 Blood Pressure 1: 132/72 Code: 8480-6 BMI: 31.2 Code: 89114-1 Heart Rate 1: 84 bpm Height: 5'7" SpO2: 98% Weight: 199 lbs 08/15/2015 Blood Pressure 1: 138/88 Code: 8480-6 BMI: 32.1 Code: 68069-8 Heart Rate 1: 94 bpm Height: 5'7" SpO2: 97% Weight: 205 lbs 06/13/2015 Blood Pressure 1: 188/88 Code: 8480-6 Blood Pressure 1: 146/78 Code: 8480-6 BMI: 32.6 Code: 28752-6 Heart Rate 1: 97 bpm Height: 5'7" SpO2: 98% Weight: 208 lbs 06/07/2015 Blood Pressure 1: 128/82 Code: 8480-6 BMI: 32.4 Code: 80482-9 Heart Rate 1: 80 bpm Height: 5'7" SpO2: 99% Weight: 207 lbs 03/13/2015 Blood Pressure 1: 124/70 Code: 8480-6 BMI: 31.6 Code: 39611-9 Heart Rate 1: 103 bpm Height: 5'7" Respiratory Rate: 18 bpm SpO2: 97% Temperature: 36.6 (C) / 97.8 (F) Weight: 202 lbs 12/07/2014 Blood Pressure 1: 140/80 Code: 8480-6 BMI: 32.3 Code: 19176-4 Heart Rate 1: 97 bpm Height: 5'7" SpO2: 99% Weight: 206 lbs 09/07/2014 Blood Pressure 1: 132/78 Code: 8480-6 BMI: 31.2 Code: 39629-9 Heart Rate 1: 92 bpm Height: 5'7" [...] with shunt placement- 08-11-14- Dr Ruvalcaba in [place] did surgery headache Onset and Resolution ongoing [...] Encounters Encounter Performer Location Codes Date ( [id number] EST. PATIENT, LEVEL IV Diagnosis: Type 2 diabetes mellitus with hyperglycemia[ICD10: E11.65] Diagnosis: Mixed hyperlipidemia[ICD10: E78.2] Diagnosis: Other allergic rhinitis[ICD10: J30.89] Kaylan Dunham MD, [facility] CPT-4: 02782 06/04/2018 ([id number]) 76108 EST. PATIENT, LEVEL IV Diagnosis: Type 2 diabetes mellitus with hyperglycemia[ICD10: E11.65] Diagnosis: Mixed hyperlipidemia[ICD10: E78.2] Diagnosis: Essential (primary) hypertension[ICD10: I10] Kaylan Dunham MD, [facility] CPT-4: 16010 03/11/2018 98710 EST. PATIENT, LEVEL III Diagnosis: Paresthesia of skin[ICD10: R20.2] Aditi Dunham MD, [facility] CPT-4: 97626 02/17/2018 64303 EST. PATIENT, LEVEL IV Diagnosis: Pain in right shoulder[ICD10: M25.511] Diagnosis: Rash and other nonspecific skin eruption[ICD10: R21] Aditi Dunham MD, [facility] CPT-4: 30037 12/21/2017 20550 EST. PATIENT, LEVEL IV Diagnosis: Other acute sinusitis[ICD10: J01.80] Diagnosis: Other allergic rhinitis[ICD10: J30.89] Diagnosis: Localized edema[ICD10: R60.0] Aditi Dunham MD, [facility] CPT-4: 28410 11/30/2017 ([id number]) 68222 EST. PATIENT, LEVEL III Diagnosis: Acute recurrent maxillary sinusitis[ICD10: J01.01] Diagnosis: Cough[ICD10: R05] Tavia Dunham MD, [facility] CPT-4: 13710 05/28/2017 ([id number]) 22181 EST. PATIENT, LEVEL III Diagnosis: Acute laryngopharyngitis[ICD10: J06.0] Diagnosis: Cough[ICD10: R05] Tavia Dunham MD, [facility] CPT-4: 88455 04/16/2017 56249 EST. PATIENT, LEVEL III Diagnosis: Left lower quadrant pain[ICD10: R10.32] Aditi Dunham MD, [facility] CPT-4: 62898 02/10/2017 ([id number]) 61125 EST. PATIENT, LEVEL III Diagnosis: Pain in thoracic spine[ICD10: M54.6] Diagnosis: Other muscle spasm[ICD10: M62.838] Tavia Dunham MD, [facility] CPT- 4: 05878 02/02/2017 ([id number]) 48075 EST. PATIENT, LEVEL IV Diagnosis: Other acute pancreatitis without necrosis or infection[ICD10: K85.80] Diagnosis: Epigastric pain[ICD10: R10.13] Diagnosis: Type 2 diabetes mellitus without complications[ICD10: E11.9] Tavia Dunham MD, [facility] CPT-4: 90181 01/27/2017 [id number] EST. PATIENT, LEVEL IV Diagnosis: Essential (primary) hypertension[ICD10: I10] Diagnosis: Type 1 diabetes mellitus without complications[ICD10: E10.9] Diagnosis: Other specified hypothyroidism[ICD10: E03.8] Diagnosis: Bilateral primary osteoarthritis of hip[ICD10: M16.0] Diagnosis: Actinic keratosis[ICD10: L57.0] Aditi Dunham MD, [facility] CPT-4: 23594 11/07/2016 [id number] EST. PATIENT, LEVEL III Diagnosis: Other acute sinusitis[ICD10: J01.80] Diagnosis: Other allergic rhinitis[ICD10: J30.89] Diagnosis: Cough[ICD10: R05] Aditi Dunham MD, [facility] CPT-4: 68314 03/26/2016 ([id number]) 51411 EST. PATIENT, LEVEL IV Diagnosis: Essential (primary) hypertension[ICD10: I10] Diagnosis: Pure hyperglyceridemia[ICD10: E78.1] Tavia Dunham MD, [facility] CPT- 4: 92639 12/13/2015 ([id number]) [id number] EST. PATIENT, LEVEL III Diagnosis: Essential (primary) hypertension[ICD10: I10] Diagnosis: (Idiopathic) normal pressure hydrocephalus[ICD10: G91.2] Tavia Dunham MD, [facility] CPT-4: 92838 08/15/2015 54540 EST. PATIENT, LEVEL III Diagnosis: Other acute nonsuppurative otitis media, right ear[ICD10: H65.191] Diagnosis: Acute upper respiratory infection, unspecified[ICD10: J06.9] Aditi Dunham MD, [facility] CPT-4: 86005 06/13/2015 ([id number]) 22183 EST. PATIENT, LEVEL III Diagnosis: Acute recurrent maxillary sinusitis[ICD10: J01.01] Diagnosis: Allergic rhinitis due to pollen[ICD10: J30.1] Kaylan Dunham MD, [facility] CPT-4: 25841 06/07/2015 ([id number]) 38940 EST. PATIENT, LEVEL IV Diagnosis: (Idiopathic) normal pressure hydrocephalus[ICD10: G91.2] Diagnosis: Essential (primary) hypertension[ICD10: I10] Diagnosis: Dizziness and giddiness[ICD10: R42] Diagnosis: Nausea with vomiting, unspecified[ICD10: R11.2] Kaylan Dunham MD, [facility] CPT-4: 20847 03/13/2015 50924 EST. PATIENT, LEVEL III Diagnosis: Acute sinusitis, unspecified[ICD10: J01.90] Diagnosis: Allergic rhinitis, unspecified[ICD10: J30.9] Tavia Dunham MD, [facility] CPT-4: 85971 12/07/2014 ([id number]) 07805 EST. PATIENT, LEVEL IV Diagnosis: ESSENTIAL HYPERTENSION[ICD9: 401.9] Diagnosis: DIABETES TYPE II[ICD9: 250.00] Diagnosis: NPH (normal pressure hydrocephalus)[ICD9: 331.5] Diagnosis: Hypertriglyceridemia[ICD9: 272.1] [facility] CPT- 4: 31743 09/07/2014 ([id number]) OFFICE/OUTPATIENT VISIT NEW Diagnosis: DIABETES TYPE II[ICD9: 250.00] Diagnosis: ESSENTIAL HYPERTENSION[ICD9: 401.9] Diagnosis: NPH (normal pressure hydrocephalus)[ICD9: 331.5] Diagnosis: Abnormal gait[ICD9: 781.2] Diagnosis: VITAMIN D DEFICIENCY[ICD9: 268.9] [facility] CPT- 4: 86883 08/07/2014 Plan of Care Planned Activity Notes [...] in the nasal steroid allergy spray. 06/04/2018 Patient Education: Patient Medication Summary Completed 06/04/2018 Patient Education: Cholesterol Management Completed 06/04/2018 Patient Education: Patient Medication Summary Completed 05/25/2018 Care Plan: A1C [facility] : [id number] Pending 05/25/2018 Referral: Ammon Joiner Patient informed. [...] home. 03/11/2018 [phone] [phone] ([facility] min[facility] 03/11/2018 Patient Education: Patient Medication Summary Completed 03/11/2018 Patient Education: Cholesterol Management Completed 03/11/2018 Patient Education: Hypertension Completed 03/11/2018 Care Plan: Referral Order SNOMED-CT : [id number] Pending 03/11/2018 Visit Plan: Parasthesia - ongoing for about a month - will send RX and refer pt for EMG - The pt is to use prn antiinflammatories to manage acute pain. The patient is to call the office if the pain is worsening or does not improve. 02/17/2018 Appointment: Aditi Hamilton WPtel: [phone] [facility] (15 min) Moderate 02/17/2018 Patient Education: [...] discharge. 12/21/2017 Appointment: Aditi Hamilton WPtel: [phone] [facility] (15 min) Moderate 12/21/2017 Patient Education: Patient Medication Summary Completed 12/21/2017 Appointment: Tavia Dunham WPtel: [phone] [facility] (15 min) Moderate 12/02/2017 Visit Plan: [...] edema. 11/30/2017 Appointment: Aditi Hamilton WPtel: [phone] [facility] (15 min) Moderate 11/30/2017 Patient Education: Patient Medication Summary Completed 11/30/2017 Care Plan: Comp Metabolic Pending 11/30/2017 Care Plan: Cbc With Differential Pending 11/30/2017 Care Plan: %Hba1C LOINC : 91384-3 Pending 11/30/2017 Care Plan: Lipid Pending 11/30/2017 Care Plan: Tsh Pending 11/30/2017 Care Plan: Free T4 Pending 11/30/2017 Appointment: Tavia Dunham WPtel: [phone] [facility] [place] (15 min) Moderate 11/26/2017 App[facility]ment: [phone] [phone] [place] (30 min) Complex 08/13/2017 Appointment: Tavia Dunham WPtel: [phone] [facility] [place] (15 min) Moderate 08/04/2017 Appointment: Tavia Dunham WPtel: [phone] [facility] [place] (15 min) Moderate 07/20/2017 Visit Plan: [...] today 05/28/2017 Appointment: [phone] [place] (30 min) Complex 05/28/2017 Patient Education: [...] patient's pharmacy. 04/16/2017 Appointment: [facility]ham [facility]el[phone] [facility] [place] (15 min) Moderate 04/16/2017 Patient Education: [...] or concerns. 02/10/2017 App[facility]ment: [phone] [facility] [place] (15 min) Moderate 02/10/2017 Patient Education: Patient Medication Summary Completed 02/10/2017 Patient Education: Obesity Completed 02/10/2017 Visit Plan: Pain in Thoracic spine with muscle spasm - ibuprofen 600mg three times daily x 3 days, rx for cyclobenzaprine. 02/02/2017 Appointment: Tavia Dunham [facility]Ptel: [phone] [facility] [place] (15 min) Moderate 02/02/2017 Patient Education: [...] labs today. 01/27/2017 Appointment: Tavia Dunham [facility]Ptel: [phone] [facility] [place] (15 min) Moderate 01/27/2017 Patient Education: [...] pain symptoms. 11/07/2016 Appointment: Aditi Hamilton WPtel: [address] [place], [place] [address] (30 min) [facility] 11/07/2016 Patient Education: Patient Medication Summary Completed [...] spray. 03/26/2016 Appointment: [phone] [facility] (30 min) Complex 03/26/2016 Patient [...] to medications. 12/13/2015 Appointment: Tavia Dunham [facility]el[facility] [phone] [facility] (15 min) Moderate 12/13/2015 Patient Education: Patient [...] on supplement. 08/07/2014 Appointment: Tavia Dunham WPtel: [facility] [place] (S[facility] New Patient 08/07/2014 Patient Education: [...]
--- NOTE | 2018-10-08 11:13 | Cardiac Procedure Note-CS/ASA ---
Pre-Procedure Note Pre-Op Procedure Note H&P Reviewed The H&P was reviewed, patient examined and no changes noted. Date H&P Reviewed: Oct 08, 2018 Time H&P Reviewed: 10:30 Conscious Sedation Pre-Proced Time 10:30 ASA Score 3 For ASA 3 and 4: Consider anesthesia and medical clearance. Also, for patients with a history of failed moderate sedation consider anesthesia. Airway Lungs Heart ASA score ASA 1: a normal healthy patient ASA 2: a patient with a mild systemic disease (mid diabetes, controlled hypertension, obesity ASA 3: a patient with a severe systemic disease that limits activity (angina, COPD, prior Myocardial infarction) x ASA 4: a patient with an incapacitating disease that is a constant threat to life (CHF, renal failure) ASA 5: a moribund patient not expected to survive 24 hrs. (ruptured aneurysm) ASA 6: a declared brain- patient whose organs are being harvested. For emergent operations, add the letter E after the classification Mallampati Classification Grade 3 Sedation Plan Analgesia, Amnesia, Plan communicated to team members, Discussed options with patient/fam, Discussed risks with patient/fam The patient is an appropriate candidate to undergo the planned procedure, sedation, and anesthesia. The patient immediately re-assessed prior to indication. VANESA RANGEL MD Oct 08, 2018 11:13
--- NOTE | 2018-10-08 11:13 | Cardiology History & Physical ---
HPI-Cardiology Cardiology Consultation Date of Consultation 10/08/18 Date of Admission Time Seen by Provider: 10:30 Indication: chest pain HPI 53 years old lady with history of hypertension, hyperlipidemia, diabetes mellitus, started to have chest pain on and off for about a week, had more significant pain yesterday, she went to her primary care physician and referred for evaluation with EKG, when she had the EKG shows her to have ST elevation, sent directly to the ER and I was called. On my evaluation she reported improvement in her chest pain still having ST elevation PMH-Cardiology Immunizations Up To Date Date of Influenza Vaccine: Jan 20, 2017 Seasonal Allergies Seasonal Allergies: No Surgeries Yes (08/11/14 [employer] shunt for treatment of hydrocephalus) Respiratory No Cardiovascular Yes Neurological Yes (HYDROCEPHALUS, WITH POOR BALANCE AND URINARY INCONTINENCE) Headaches /Migraines Gastrointestinal No Musculoskeletal Yes Arthritis, Chronic Back Pain Endocrine Yes Hypothyroidsim, Diabetes, Non-Insulin dep Cancer No Psychosocial Yes Depression Integumentary No Blood Transfusions No Social History Patient Social History Marrital Status: Employed/Student: employed Family Hx Significant Family History: Hypertension Family History: Arthritis Asthma Cardiovascular disease Diabetes mellitus Hypertension Myocardial infarction Osteoporosis Psychosocial problem Respiratory disorder ROS-Cardiology Review of Systems General: No Chills, No Night Sweats, No Fatigue, No Malaise, No Appetite HEENT: No Head Aches, No Visual Changes, No Eye Pain, No Ear Pain, No Dysphasia, No Sinus Congestion, No Post Nasal Drip, No Sore Throat Pulmonary: No Dyspnea, No Cough, No Pleuritic Chest Pain Cardiovascular: Chest Pain; No: Palpitations, Orthopnea, Paroxysmal Noc. Dyspnea, Edema, Lt Headedness Gastrointestinal: No: Nausea, Vomiting, Abdominal Pain, Diarrhea, Constipation, Melena, Hematochezia Genitourinary: No Dysuria, No Frequency, No Incontinence, No Hematuria, No Retention Musculoskeletal: No: neck pain, shoulder pain, arm pain, back pain, hand pain, leg pain, foot pain Neurological: No: Weakness, Numbness, Incoordination, Change in speech, Confusion, Seizures Home Medications & Allergies Allergies: Coded Allergies: codeine (Unverified Allergy, Mild, 06/16/08) Home Medication List Reviewed: Yes Exam-Cardiology Exam General Appearance: Alert, Oriented X3, Cooperative, No Acute Distress HEENT: Atraumatic, PERRLA Respiratory: Clear to Auscultation, Normal Air Movement Cardiovascular: Regular Rate, Normal S1, Normal S2, No Murmurs Abdominal: Normal Bowel Sounds, Soft, No Tenderness, No Hepatosplenomegaly, No Masses Extremities: No Clubbing, No Cyanosis, No Edema, Normal Pulses, No Tenderness/Swelling Skin: No Rashes, No Breakdown, No Significant Lesion Neuro: Normal Gait, Normal Speech, Strength at 5/5 X4 Ext, Normal Tone, Sensation Intact Psych/Mental Status: Mental Status NL, Mood NL Results Labs Labs Laboratory Tests 10/08/18 10:21: White Blood Count 11.8H, Red Blood Count 4.96, Hemoglobin 14.5, Hematocrit 44, Mean Corpuscular Volume 89, Mean Corpuscular Hemoglobin 29, Mean Corpuscular Hemoglobin Concent 33, Red Cell Distribution Width 13.8, Platelet Count 302, Mean Platelet Volume 10.7H, Neutrophils (%) (Auto) 78H, Lymphocytes (%) (Auto) 17, Monocytes (%) (Auto) 5, Eosinophils (%) (Auto) 1, Basophils (%) (Auto) 0, Neutrophils # (Auto) 9.2H, Lymphocytes # (Auto) 2.0, Monocytes # (Auto) 0.5, Eosinophils # (Auto) 0.1, Basophils # (Auto) 0.0, Prothrombin Time 12.5, INR Comment 0.9, Activated Partial Thromboplast Time 26, Sodium Level 135, Potassium Level 4.3, Chloride Level 99, Carbon Dioxide Level 23, Anion Gap 13, Blood Urea Nitrogen 23H, Creatinine 1.04, Estimat Glomerular Filtration Rate 55, BUN/Creatinine Ratio 22, Glucose Level 248H, Calcium Level 10.0, Corrected Calcium 9.6, Magnesium Level 2.3, Total Bilirubin 0.4, Aspartate Amino Transf (AST/SGOT) 53H, Alanine Aminotransferase (ALT/SGPT) 35, Alkaline Phosphatase 93, Myoglobin 290.1H, Troponin I 3.387*H, Total Protein 8.1, Albumin 4.5 A/P-Cardiology Admission Diagnosis Acute ST elevation CA Coronary artery disease Hypertension Hyperlipidemia Admission Status: Inpatient Order (span 2 midnights) Reason for Inpatient Admission: acute ST elevation myocardial infarction Assessment/Plan Acute ST elevation or infarction in the inferolateral leads, planning to proceed with emergency cardiac catheterization Coronary artery disease, no previous history, emergency cardiac catheterization was carried out showing severe stenosis in the midright coronary artery successful deployment of 2.2526 mm resolute integrity drug-eluting stent expanded to 2.3 mm with excellent results. The rest of the system had mild disease. Next Hypertension, started on beta blockers and WILSON inhibitor, monitor blood pressure next Hyperlipidemia started on Lipitor 80 mg daily Diabetes mellitus, managed by primary care physician Family history of heart disease next History of normal pressure hydrocephalus, history of shunt in the past. Allergy to codeine Clinical Quality Measures DVT/VTE Risk/Contraindication: Risk Factor Score Per Nursin RFS Level Per Nursing on Admit: 4+=Very High VANESA RANGEL MD Oct 08, 2018 11:13
[2018-10-08] MEDS ORDERED: PATIENT MAY USE OWN MEDS, ALL PO SCH (11:15)
--- OUTSIDE RECORDS SUMMARY | 2018-10-08 11:15 | XMS REPORT | CCD ---
Author Author [facility] Organization [facility] Address [address] [place] [address] Phone Care Team Providers [facility] Name Role Phone PP Unavailable CCM Unavailable Summary Purpose Interface Exchange Insurance Providers Payer name Policy type / Coverage type Covered alliance party ID Effective Begin Date Effective End Date Blue Cross Blue [facility] Blue Cross/Blue [facility] [id number] Unknown Family history Mother Diagnosis Age At Onset Cancer Unknown Arthritis Unknown Depression Unknown Hyperlipidemia Unknown Diabetes mellitus Type 2 Unknown Social History Social History Element Codes Description Effective Dates Marital status Unknown [place] 08/07/2014 Number of children Unknown 0 08/07/2014 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/07/[address]: 993907323 Never smoker 08/07/[address]: 838152731 Never drinks alcohol 08/07/2014 Allergies, Adverse Reactions, Alerts Substance Reaction Codes Entered Date Inactivated Date Status CODEINE emesis RxNorm: 2670 08/07/2014 No Inactive Date Active Past Medical History Illness Codes Condition Status Onset Date Resolved Date Type 2 diabetes mellitus with hyperglycemia ICD-9: 250.00 ICD-10: E11.65 Active 03/11/2018 Unknown Essential (primary) hypertension ICD-9: 401.9 ICD-10: I10 Active 08/06/2014 Unknown Mixed hyperlipidemia ICD- 9: 272.2 ICD-10: E78.2 Active 03/11/2018 Unknown Paresthesia of skin ICD- 9: 782.0 [...] ICD-9: 477.8 ICD-10: J30.89 Active 03/26/2016 Unknown Other specified hypothyroidism ICD-9: [...] Problems Condition Codes Effective Dates Condition Status Type 2 diabetes mellitus with hyperglycemia ICD-9: 250.00 ICD-10: E11.65 03/11/2018 Active Essential (primary) hypertension ICD-9: 401.9 ICD-10: I10 08/06/2014 Active Mixed hyperlipidemia ICD- 9: 272.2 ICD-10: E78.2 03/11/2018 Active Paresthesia of skin ICD- 9: 782.0 ICD-10: R20.2 02/17/2018 Active Pain in right shoulder ICD-9: 719.41 ICD-10: M25.511 12/21/2017 Active Rash and other nonspecific skin eruption ICD-9: 782.1 ICD-10: R21 12/21/2017 Active Localized edema ICD-9: 782.3 ICD-10: R60.0 11/30/2017 Active Other acute sinusitis ICD- 9: 461.8 ICD-10: J01.80 03/26/2016 Active Other allergic rhinitis ICD-9: 477.8 ICD-10: J30.89 03/26/2016 Active Other specified hypothyroidism ICD-9: 244.8 [...] Fill Instructions hydrochlorothiazide 25 mg tablet RxNorm: 937509 TAKE 1 TABLET BY MOUTH ONCE DAILY 03/23/2018 No Stop Date Active Levemir FlexTouch U-100 Insulin 100 unit/mL (3 mL) subcutaneous pen RxNorm: 596517 30 Unit(s) SQ QAM and 25 Units SQ QPM 03/18/2018 07/15/2018 Active Levemir FlexTouch U-100 Insulin 100 unit/mL (3 mL) subcutaneous pen RxNorm: 203441 Unit(s) 03/11/2018 03/17/2018 Inactive 30 q am and 25 units q PM pravastatin 40 mg tablet RxNorm: 547184 1 Tablet(s) PO daily take with coenzyme q 10 daily 03/03/2018 02/25/2019 Active Levemir FlexTouch U-100 Insulin 100 unit/mL (3 mL) subcutaneous pen RxNorm: 594224 Unit(s) INJECT 25 UNITS SUBCUTANEOUSLY TWICE DAILY 03/03/2018 03/10/2018 Inactive pravastatin 10 mg tablet RxNorm: 876529 1 Tablet(s) PO daily take with coenzyme q 10 daily 02/26/2018 03/02/2018 Inactive prednisone 20 mg tablet RxNorm: 760818 2 Tablet(s) PO daily 02/17/2018 02/21/2018 Inactive levothyroxine 125 mcg tablet RxNorm: 877326 TAKE 1 TABLET BY MOUTH ONCE DAILY 01/11/2018 No Stop Date Active cyclobenzaprine 5 mg tablet RxNorm: 549897 1 Tablet(s) PO TID as needed 12/28/2017 01/11/2018 Inactive Zorvolex 35 mg capsule RxNorm: 2086972 1 Capsule(s) PO TID as needed 12/25/2017 05/23/2018 Inactive Levemir FlexTouch U-100 Insulin 100 unit/mL (3 mL) subcutaneous pen RxNorm: 227070 INJECT 2O UNITS SUBCUTANEOUSLY TWICE DAILY 12/21/2017 03/02/2018 Inactive cyclobenzaprine 5 mg tablet RxNorm: 249556 1 Tablet(s) PO TID as needed 12/21/2017 12/25/2017 Inactive doxycycline hyclate 100 mg capsule RxNorm: 9285390 1 Capsule(s) PO BID 12/21/2017 12/30/2017 Inactive venlafaxine ER 150 mg capsule,extended release 24 hr RxNorm: 865946 TAKE 1 CAPSULE BY MOUTH ONCE DAILY 12/10/2017 No Stop Date Active Singulair 10 mg tablet RxNorm: 883290 1 Tablet(s) PO daily 12/03/2017 12/02/2017 Inactive Singulair 10 mg tablet RxNorm: 877572 1 Tablet(s) PO daily 12/03/2017 01/01/2018 Inactive Zithromax Z-Kulwant 250 mg tablet RxNorm: 198266 1 Tablet(s) PO UD 12/03/2017 03/10/2018 Inactive z pack as directed Kenalog 40 mg/mL suspension for injection RxNorm: 3749091 1 Milliliter(s) Inj 11/30/2017 11/30/2017 Inactive prednisone 20 mg tablet RxNorm: 822214 2 Tablet(s) PO daily 11/30/2017 12/04/2017 Inactive Augmentin 875 mg-125 mg tablet RxNorm: 949643 1 Tablet(s) PO BID 11/27/2017 11/26/2017 Inactive Augmentin 875 mg-125 mg tablet RxNorm: 296618 1 Tablet(s) PO BID 11/27/2017 12/03/2017 Inactive Zorvolex 35 mg capsule RxNorm: 6524516 1 Capsule(s) PO TID as needed 11/09/2017 12/24/2017 Inactive hydrochlorothiazide 25 mg tablet RxNorm: 437398 1 Tablet(s) PO daily 10/22/2017 02/18/2018 Inactive enalapril maleate 5 mg tablet RxNorm: 931563 1 Tablet(s) PO daily TAKE ONE TABLET BY MOUTH ONCE DAILY 08/21/2017 02/16/2018 Inactive Levemir FlexTouch U-100 Insulin 100 unit/mL (3 mL) subcutaneous pen RxNorm: 144551 20 Unit(s) SQ BID 07/30/2017 12/20/2017 Inactive levothyroxine 125 mcg tablet RxNorm: 612159 TAKE ONE TABLET BY MOUTH ONCE DAILY 06/29/2017 01/10/2018 Inactive venlafaxine ER 150 mg capsule,extended release 24 hr RxNorm: 067667 1 Capsule(s) PO daily TAKE ONE CAPSULE BY MOUTH ONCE DAILY 06/08/2017 12/04/2017 Inactive prednisone 20 mg tablet RxNorm: 944705 1 Tablet(s) PO daily 06/02/2017 06/06/2017 Inactive prednisone 20 mg tablet RxNorm: 409234 1 Tablet(s) PO daily 06/01/2017 06/05/2017 Inactive Kenalog 40 mg/mL suspension for injection RxNorm: 6110203 1 Milliliter(s) Inj 05/28/2017 05/28/2017 Inactive cefdinir 300 mg capsule RxNorm: 888892 1 Capsule(s) PO BID 05/28/2017 06/03/2017 Inactive ceftriaxone 500 mg solution for injection RxNorm: 9949957 1 Inj 05/28/2017 05/28/2017 Inactive prednisone 20 mg tablet RxNorm: 496014 1 Tablet(s) PO daily 05/28/2017 05/31/2017 Inactive Keflex 500 mg capsule RxNorm: 278281 1 Capsule(s) PO TID 05/26/2017 06/01/2017 Inactive Keflex 500 mg capsule RxNorm: 438532 1 Capsule(s) PO TID 05/26/2017 05/25/2017 Inactive hydrocodone 10 mg-chlorpheniramine 8 mg/5 mL oral susp extend.rel 12hr RxNorm: 4357202 5-10 Milliliter(s) PO TID as needed 04/16/2017 No Stop Date Active Tussionex Pennkinetic ER 10 mg-8 mg/5 mL suspension,extended release RxNorm: 0959328 5 Milliliter(s) PO BID 04/16/2017 04/27/2017 Inactive Zithromax Z-Kulwant 250 mg tablet RxNorm: 551015 1 Tablet(s) PO UD 03/25/2017 04/15/2017 Inactive z pack as directed enalapril maleate 5 mg tablet RxNorm: 083808 TAKE ONE TABLET BY MOUTH ONCE DAILY 02/26/2017 08/20/2017 Inactive Levemir FlexTouch 100 unit/mL (3 mL) subcutaneous insulin pen RxNorm: 875535 20 Unit(s) SQ BID 02/10/2017 07/11/2017 Inactive Zorvolex 35 mg capsule RxNorm: 6349298 1 Capsule(s) PO TID as needed 02/10/2017 11/08/2017 Inactive valacyclovir 1 gram tablet RxNorm: 502368 1 Tablet(s) PO TID 02/10/2017 02/16/2017 Inactive Levemir FlexTouch 100 unit/mL (3 mL) subcutaneous insulin pen RxNorm: 498526 20 Unit(s) SQ BID 02/04/2017 02/09/2017 Inactive cyclobenzaprine 5 mg tablet RxNorm: 016030 1 Tablet(s) PO qhs x 3 nights and TID as needed muscle spasms 02/02/2017 No Stop Date Active levothyroxine 125 mcg tablet RxNorm: 420670 TAKE ONE TABLET BY MOUTH ONCE DAILY 12/08/2016 06/05/2017 Inactive venlafaxine ER 150 mg capsule,extended release 24 hr RxNorm: 845644 TAKE ONE CAPSULE BY MOUTH ONCE DAILY 12/01/2016 05/29/2017 Inactive Zorvolex 35 mg capsule RxNorm: 4909889 1 Capsule(s) PO TID as needed do not take meloxicam at the same time 11/07/2016 No Stop Date Active enalapril maleate 5 mg tablet RxNorm: 404990 TAKE ONE TABLET BY MOUTH ONCE DAILY 10/31/2016 12/29/2016 Inactive meloxicam 15 mg tablet RxNorm: 257394 TAKE ONE TABLET BY MOUTH ONCE DAILY 10/30/2016 03/10/2018 Inactive meloxicam 15 mg tablet RxNorm: 566123 TAKE ONE TABLET BY MOUTH ONCE DAILY 10/24/2016 10/29/2016 Inactive enalapril maleate 5 mg tablet RxNorm: 885757 TAKE ONE TABLET BY MOUTH ONCE DAILY 10/24/2016 10/30/2016 Inactive venlafaxine ER 150 mg capsule,extended release 24 hr RxNorm: 703350 TAKE ONE CAPSULE BY MOUTH ONCE DAILY 06/16/2016 11/12/2016 Inactive meloxicam 15 mg tablet RxNorm: 154514 TAKE ONE TABLET BY MOUTH ONCE DAILY 06/09/2016 10/06/2016 Inactive enalapril maleate 5 mg tablet RxNorm: 990061 TAKE ONE TABLET BY MOUTH ONCE DAILY 06/02/2016 09/29/2016 Inactive Zithromax Z-Kulwant 250 mg tablet RxNorm: 536597 1 Tablet(s) PO UD 05/21/2016 06/15/2016 Inactive levothyroxine 125 mcg tablet RxNorm: 710253 Tablet(s) TAKE ONE TABLET BY MOUTH ONCE DAILY 04/15/2016 10/11/2016 Inactive Levaquin 500 mg tablet RxNorm: 321339 1 Tablet(s) PO daily 04/03/2016 04/09/2016 Inactive Levaquin 500 mg tablet RxNorm: 698843 1 Tablet(s) PO daily 04/03/2016 04/02/2016 Inactive prednisone 20 mg tablet RxNorm: 828045 2 Tablet(s) PO daily 03/28/2016 04/01/2016 Inactive Zithromax Z-Kulwant 250 mg tablet RxNorm: 581334 1 Tablet(s) PO UD 03/26/2016 03/30/2016 Inactive zpack Kenalog 40 mg/mL suspension for injection RxNorm: 9483939 Milliliter(s) Inj 03/26/2016 03/26/2016 Inactive Zofran ODT 4 mg disintegrating tablet RxNorm: 656905 DISSOLVE ONE TABLET IN MOUTH EVERY 6 HOURS NEEDED 02/22/2016 02/29/2016 Inactive venlafaxine ER 150 mg capsule,extended release 24 hr RxNorm: 187338 TAKE ONE CAPSULE BY MOUTH ONCE DAILY 02/18/2016 06/15/2016 Inactive meloxicam 15 mg tablet RxNorm: 206613 TAKE ONE TABLET BY MOUTH ONCE DAILY 02/04/2016 06/02/2016 Inactive aspirin 81 mg chewable tablet RxNorm: 731825 1 Tablet(s) PO daily 12/13/2015 12/06/2016 Inactive biotin 2,500 mcg tablet RxNorm: 276782 1 Tablet(s) PO daily 12/13/2015 09/07/2016 Inactive hydrochlorothiazide 25 mg tablet RxNorm: 433863 1 Tablet(s) PO daily 12/13/2015 04/10/2016 Inactive enalapril maleate 5 mg tablet RxNorm: 865236 TAKE ONE TABLET BY MOUTH ONCE DAILY 11/22/2015 05/19/2016 Inactive venlafaxine ER 150 mg capsule,extended release 24 hr RxNorm: 668891 TAKE ONE CAPSULE BY MOUTH ONCE DAILY 11/14/2015 02/11/2016 Inactive levothyroxine 125 mcg tablet RxNorm: 809749 Tablet(s) TAKE ONE TABLET BY MOUTH ONCE DAILY 11/06/2015 04/14/2016 Inactive levothyroxine 125 mcg tablet RxNorm: 732741 Tablet(s) TAKE ONE TABLET BY MOUTH ONCE DAILY 08/06/2015 11/03/2015 Inactive meclizine 25 mg tablet RxNorm: 841444 1/2-1 Tablet(s) PO Q6 as needed 07/16/2015 No Stop Date Active Flonase Allergy Relief 50 mcg/actuation nasal spray,suspension RxNorm: 1 [place] NASAL daily 06/13/2015 No Stop Date Active prednisone 20 mg tablet RxNorm: 360582 2 Tablet(s) PO daily 06/13/2015 06/17/2015 Inactive Augmentin 875 mg-125 mg tablet RxNorm: 664045 1 Tablet(s) PO BID 06/13/2015 06/19/2015 Inactive Zithromax Z-Kulwant 250 mg tablet RxNorm: 085514 1 Tablet(s) PO UD 06/07/2015 06/11/2015 Inactive zpack Kenalog 40 mg/mL suspension for injection RxNorm: 6368034 Milliliter(s) Inj 06/07/2015 06/07/2015 Inactive venlafaxine ER 150 mg capsule,extended release 24 hr RxNorm: 753396 TAKE ONE CAPSULE BY MOUTH ONCE DAILY 05/14/2015 11/09/2015 Inactive Augmentin 500 mg-125 mg tablet RxNorm: 288030 1 Tablet(s) PO TID 04/25/2015 05/04/2015 Inactive Augmentin 500 mg-125 mg tablet RxNorm: 222909 1 Tablet(s) PO TID 04/25/2015 04/24/2015 Inactive pravastatin 10 mg tablet RxNorm: 201293 1 Tablet(s) PO daily take with coenzyme q 10 daily 03/21/2015 03/20/2015 Inactive DC crestor pravastatin 10 mg tablet RxNorm: 690845 1 Tablet(s) PO daily take with coenzyme q 10 daily 03/21/2015 07/18/2015 Inactive DC crestor Zofran ODT 4 mg disintegrating tablet RxNorm: 685988 1 Tablet(s) PO Q6 PRN 03/13/2015 02/21/2016 Inactive levothyroxine 125 mcg tablet RxNorm: 106481 TAKE ONE TABLET BY MOUTH ONCE DAILY 02/13/2015 08/05/2015 Inactive meloxicam 15 mg tablet RxNorm: 085909 1 Tablet(s) PO daily 01/28/2015 01/22/2016 Inactive Zofran 4 mg tablet RxNorm: 840538 1 Tablet(s) PO Q6-8H as needed nausea 01/24/2015 No Stop Date Active Trulicity 1.5 mg/0.5 mL subcutaneous pen injector RxNorm: 9848343 0.75mg Milliliter(s) SQ QW 01/10/2015 03/10/2018 Inactive venlafaxine ER 150 mg capsule,extended release 24 hr RxNorm: 529607 1 Capsule(s) PO daily 01/10/2015 05/09/2015 Inactive enalapril maleate 5 mg tablet RxNorm: 913671 1 Tablet(s) PO daily 01/04/2015 07/02/2015 Inactive amoxicillin 500 mg tablet RxNorm: 684408 1 Tablet(s) PO BID 12/07/2014 12/06/2014 Inactive Probiotic & Acidophilus 300 million cell-250 mg capsule RxNorm: 1 Capsule(s) PO BID 12/07/2014 12/16/2014 Inactive amoxicillin 500 mg tablet RxNorm: 660614 1 Tablet(s) PO BID 12/07/2014 12/16/2014 Inactive Kenalog 40 mg/mL suspension for injection RxNorm: 7812920 1 Milliliter(s) Inj 12/07/2014 12/07/2014 Inactive meloxicam 15 mg tablet RxNorm: 223734 1 Tablet(s) PO daily 10/24/2014 10/23/2014 Inactive meloxicam 15 mg tablet RxNorm: 143465 1 Tablet(s) PO daily 10/24/2014 01/27/2015 Inactive azithromycin 500 mg tablet RxNorm: 898263 1 Tablet(s) PO daily 10/11/2014 10/15/2014 Inactive azithromycin 500 mg tablet RxNorm: 343189 1 Tablet(s) PO daily 10/11/2014 10/10/2014 Inactive levothyroxine 125 mcg tablet RxNorm: 521966 1 Tablet(s) PO daily 10/06/2014 02/02/2015 Inactive enalapril maleate 5 mg tablet RxNorm: 007790 1 Tablet(s) PO daily 08/29/2014 12/26/2014 Inactive enalapril maleate 5 mg tablet RxNorm: 193700 1 Tablet(s) PO daily 08/25/2014 08/28/2014 Inactive Medroxy oral RxNorm: 0709122 oral No Start Date Active Vitamin D3 5,000 unit tablet RxNorm: 134513 1 Tablet(s) PO daily No Start Date Active fluconazole 200 mg tablet RxNorm: 382927 Tablet(s) PO No Start Date Active estradiol 2 mg tablet RxNorm: 371800 1 Tablet(s) PO daily No Start Date Active fenofibrate nanocrystallized 145 mg tablet RxNorm: 018007 1 Tablet(s) PO daily No Start Date Active hydrocodone 5 mg-acetaminophen 325 mg tablet RxNorm: 070726 1-2 Tablet(s) PO Q4-6H as needed No Start Date Active enalapril maleate 5 mg tablet RxNorm: 311321 1 Tablet(s) PO daily No Start Date 08/24/2014 Inactive glimepiride 4 mg tablet RxNorm: 364964 1 Tablet(s) PO daily No Start Date 01/26/2017 Inactive meclizine 25 mg tablet RxNorm: 058111 1/2-1 Tablet(s) PO Q6 as needed No Start Date 07/15/2015 Inactive Trulicity 0.75 mg/0.5 mL subcutaneous pen injector RxNorm: 6348593 0.75mg Milliliter(s) SQ QW No Start Date 01/09/2015 Inactive metformin 1,000 mg tablet RxNorm: 532790 Tablet(s) PO BID No Start Date 01/26/2017 Inactive venlafaxine ER 150 mg capsule,extended release 24 hr RxNorm: 062680 1 Capsule(s) PO daily No Start Date 01/09/2015 Inactive meloxicam 15 mg tablet RxNorm: 120656 1 Tablet(s) PO daily No Start Date 10/23/2014 Inactive levothyroxine 125 mcg tablet RxNorm: 830995 1 Tablet(s) PO daily No Start Date 10/05/2014 Inactive Levemir FlexTouch 100 unit/mL (3 mL) subcutaneous insulin pen RxNorm: 632439 15 Unit(s) SQ daily No Start Date 02/03/2017 Inactive Zithromax Z-Kulwant 250 mg tablet RxNorm: 682236 1 Tablet(s) PO UD No Start Date 05/20/2016 Inactive Fish Oil 1,000 mg capsule RxNorm: 1 Capsule(s) PO BID No Start Date 11/04/2016 Inactive Zofran 4 mg tablet RxNorm: 175326 1 Tablet(s) PO Q6-8H as needed nausea No Start Date 01/23/2015 Inactive Crestor 10 mg tablet RxNorm: 865561 1 Tablet(s) PO daily No Start Date 03/20/2015 Inactive Medication Administered Medication Codes Instructions Start Date Status Kenalog 40 mg/mL suspension for injection RxNorm: 2600193 1Milliliter 11/30/2017 No longer Active Kenalog 40 mg/mL suspension for injection RxNorm: 4179018 1Milliliter 05/28/2017 No longer Active ceftriaxone 500 mg solution for injection RxNorm: 7060082 1 05/28/2017 No longer Active Kenalog 40 mg/mL suspension for injection RxNorm: 0208254 Milliliter 03/26/2016 No longer Active Kenalog 40 mg/mL suspension for injection RxNorm: 0865971 Milliliter 06/07/2015 No longer Active Kenalog 40 mg/mL suspension for injection RxNorm: 4267633 1Milliliter 12/07/2014 No longer Active Immunizations Vaccine Codes Date Status Influenza CVX: 141 11/26/2017 completed Assessments Condition Codes Effective Dates Type 2 diabetes mellitus with hyperglycemia ICD-10: E11.65 ICD-9: 250.00 05/25/2018 Essential (primary) hypertension ICD-10: I10 ICD-9: 401.9 03/11/2018 Mixed hyperlipidemia ICD-10: E78.2 ICD-9: 272.2 03/11/2018 Paresthesia of skin ICD-10: R20.2 ICD-9: 782.0 02/17/2018 Rash and other nonspecific skin eruption ICD-10: R21 ICD-9: 782.1 12/21/2017 Pain in right shoulder ICD-10: M25.511 ICD-9: 719.41 12/21/2017 Localized edema ICD-10: R60.0 ICD-9: 782.3 11/30/2017 Other acute sinusitis ICD-10: J01.80 ICD-9: 461.8 11/30/2017 Other allergic rhinitis ICD-10: J30.89 ICD-9: 477.8 11/30/2017 Acute recurrent maxillary sinusitis ICD-10: J01.01 [...] Visit Reason For Visit Effective Dates Notes hyperlipidemia 03/11/2018 hand pain 02/17/2018 shoulder pain [...] Item Item Code Result Date CHEM 14 [id number] AST TNP:Lab Request 01/27/2017 CHEM 14 [id number] ALT TNP:Lab Request 01/27/2017 CHEM 14 [id number] BUN TNP:Lab Request 01/27/2017 CHEM 14 [id number] ALBUMIN TNP:Lab Request 01/27/2017 CHEM 14 [id number] CHLORIDE TNP:Lab Request 01/27/2017 CHEM 14 [id number] Bili Total TNP:Lab Request 01/27/2017 CHEM 14 [id number] ALK PHOS TNP:Lab Request 01/27/2017 CHEM 14 [id number] SODIUM TNP:Lab Request 01/27/2017 CHEM 14 [id number] CREATININE TNP:Lab Request 01/27/2017 CHEM 14 [id number] CALCIUM TNP:Lab Request 01/27/2017 CHEM 14 [id number] POTASSIUM TNP:Lab Request 01/27/2017 CHEM 14 [id number] TOTAL PROTEIN TNP:Lab Request 01/27/2017 CHEM 14 [id number] GLUCOSE TNP:Lab Request 01/27/2017 CHEM 14 [id number] Bicarbonate TNP:Lab Request 01/27/2017 CHEM 14 [id number] AGAP TNP:Lab Request 01/27/2017 AMYLASE [id number] Amylase Lvl TNP:Lab Request 01/27/2017 LIPID GRP CHOLESTEROL 273 mg/dL 2016 LIPID GRP Triglyceride 583 mg/dL 2016 LIPID GRP HDL CHOLESTEROL 48 mg/dL 2016 LIPID GRP Chol/HDL Ratio 5.69 ratio 2016 LIPID GRP NON-HDL Chol 225 mg/dL 2016 LIPID GRP LDL Cholesterol N/A Trig >400 2016 A1C HPLC 3392837 Hgb A1c 52281-5 7.3 % 2016 TSH [id number] TSH 1.340 uIU/mL 2016 FREE T4 8771095 T4 Free 1.60 ng/dL 2016 MEAN GLUC 9351045 Calc Mean Gluc 163 mg/dL 2016 GFR CALC 1467085 GFR Non Afr Amr >60 mL/min 2016 GFR CALC 3270221 GFR Afr Amr >60 mL/min 2016 CBC 0483262 WBC 8.1 10e9/L 2016 CBC 7301869 RBC 4.41 10e12/L 2016 CBC 7081405 HEMOGLOBIN 13.2 g/dL 2016 CBC [id number] HEMATOCRIT 39.6 % 2016 CBC 9801700 MCV 89.8 fL 2016 CBC 9287013 MCH 29.9 pg 2016 CBC 2773627 MCHC 33.3 g/dL 2016 CBC 0059913 PLATELET COUNT 298 10e9/L 2016 CBC 5319196 Mean Plt Volume 10.5 fL 2016 CBC 1859105 Neut Auto 61.3 % 2016 CBC 1175337 Lymph Auto 26.3 % 2016 CBC 4954243 [place] Auto 7.7 % 2016 CBC 3952948 RDW 13.6 % 2016 CBC 6702931 Eos Auto 4.2 % 2016 CBC 5857804 Baso Auto 0.5 % 2016 CBC 3049535 Neutrophil Abs 4.97 10e9/L 2016 CBC 7472579 Lymphocyte Abs 2.13 10e9/L 2016 CBC 1387841 Monocyte Abs 0.62 10e9/L 2016 CBC 1484541 Eosinophil Abs 0.34 10e9/L 2016 CBC 9310916 RDW-SD 44.1 fL 2016 CBC 2124540 Basophil Abs 0.04 10e9/L 2016 CHEM 14 [id number] AST 19 U/L 2016 CHEM 14 5260209 ALT 26 U/L 2016 CHEM 14 5202014 BUN 20 mg/dL 2016 CHEM 14 [id number] ALBUMIN 4.1 g/dL 2016 CHEM 14 8082748 CHLORIDE 99 mmol/L 2016 CHEM 14 3129640 Bili Total 0.3 mg/dL 2016 CHEM 14 8588250 ALK PHOS 55 U/L 2016 CHEM 14 9086523 SODIUM 135 mmol/L 2016 CHEM 14 8827878 CREATININE 0.87 mg/dL 2016 CHEM 14 7839827 CALCIUM 9.3 mg/dL 2016 CHEM 14 9330193 POTASSIUM 4.0 mmol/L 2016 CHEM 14 9976139 TOTAL PROTEIN 7.0 g/dL 2016 CHEM 14 6839312 GLUCOSE 149 mg/dL 2016 CHEM 14 7691618 Bicarbonate 26 mmol/L 2016 CHEM 14 7891399 AGAP 10 mmol/L 2016 Review of Systems System Result Effective Dates Constitutional No recent illness 03/11/2018 Constitutional No [...] affect 08/15/2015 None Full Exam - General 1995 Psychiatric appearance Overall: well-groomed, good eye contact [...] 4: J0696 05/28/2017 THER/PROPH/DIAG INJ SC/IM CPT-4: 77244 05/19/2017 KETOROLAC TROMETHAMINE INJ CPT-4: J1885 05/19/2017 TRIAMCINOLONE ACET INJ NOS CPT-4: J3301 03/26/2016 TRIAMCINOLONE ACET INJ NOS CPT-4: J3301 06/07/2015 THER/PROPH/DIAG INJ SC/IM CPT-4: 43903 12/07/2014 TRIAMCINOLONE ACET INJ NOS CPT-4: J3301 12/07/2014 Vital Signs Date Vital 03/11/2018 Blood Pressure 1: 142/82 Code: 8480-6 BMI: 32.1 Code: 35383-8 Heart Rate 1: 87 bpm Height: 5'7" SpO2: 97% Weight: 205 lbs 02/17/2018 Blood Pressure 1: 132/76 Code: 8480-6 BMI: 33.5 Code: 97426-4 Heart Rate 1: 92 bpm Height: 5'7" SpO2: 98% Weight: 214 lbs 12/21/2017 Blood Pressure 1: 154/78 Code: 8480-6 BMI: 33.5 Code: 14087-1 Heart Rate 1: 93 bpm Height: 5'7" SpO2: 96% Weight: 214 lbs 11/30/2017 Blood Pressure 1: 148/88 Code: 8480-6 BMI: 33.5 Code: 12063-5 Heart Rate 1: 80 bpm Height: 5'7" SpO2: 97% Temperature: 36.9 (C) / 98.5 (F) Weight: 214 lbs 05/28/2017 Blood Pressure 1: 128/70 Code: 8480-6 BMI: 31.3 Code: 06565-8 Heart Rate 1: 103 bpm Height: 5'7" SpO2: 98% Temperature: 36.7 (C) / 98.1 (F) Weight: 200 lbs 05/19/2017 Blood Pressure 1: 150/72 Code: 8480-6 04/16/2017 Blood Pressure 1: 146/88 Code: 8480-6 BMI: 31.3 Code: 78517-6 Heart Rate 1: 96 bpm Height: 5'7" SpO2: 94% Temperature: 37.2 (C) / 99.0 (F) Weight: 200 lbs 02/10/2017 Blood Pressure 1: 132/72 Code: 8480-6 BMI: 31.3 Code: 42827-9 Heart Rate 1: 99 bpm Height: 5'7" SpO2: 97% Weight: 200 lbs 02/02/2017 Blood Pressure 1: 140/68 Code: 8480-6 BMI: 31.4 Code: 96972-9 Heart Rate 1: 82 bpm Height: 5'7" SpO2: 97% Weight: 200 lbs 8 oz 01/27/2017 Blood Pressure 1: 142/80 Code: 8480-6 BMI: 32.2 Code: 64157-2 Height: 5'7" Temperature: 37.2 (C) / 98.9 (F) Weight: 205 lbs 8 oz 11/07/2016 Blood Pressure 1: 148/82 Code: 8480-6 BMI: 32.7 Code: 90010-1 Heart Rate 1: 106 bpm Height: 5'7" SpO2: 97% Weight: 209 lbs 03/26/2016 Blood Pressure 1: 140/86 Code: 8480-6 Heart Rate 1: 90 bpm Height: SpO2: 97% Weight: 12/13/2015 Blood Pressure 1: 132/72 Code: 8480-6 BMI: 31.2 Code: 13910-6 Heart Rate 1: 84 bpm Height: 5'7" SpO2: 98% Weight: 199 lbs 08/15/2015 Blood Pressure 1: 138/88 Code: 8480-6 BMI: 32.1 Code: 98506-2 Heart Rate 1: 94 bpm Height: 5'7" SpO2: 97% Weight: 205 lbs 06/13/2015 Blood Pressure 1: 188/88 Code: 8480-6 Blood Pressure 1: 146/78 Code: 8480-6 BMI: 32.6 Code: 27702-8 Heart Rate 1: 97 bpm Height: 5'7" SpO2: 98% Weight: 208 lbs 06/07/2015 Blood Pressure 1: 128/82 Code: 8480-6 BMI: 32.4 Code: 87370-6 Heart Rate 1: 80 bpm Height: 5'7" SpO2: 99% Weight: 207 lbs 03/13/2015 Blood Pressure 1: 124/70 Code: 8480-6 BMI: 31.6 Code: 32663-8 Heart Rate 1: 103 bpm Height: 5'7" Respiratory Rate: 18 bpm SpO2: 97% Temperature: 36.6 (C) / 97.8 (F) Weight: 202 lbs 12/07/2014 Blood Pressure 1: 140/80 Code: 8480-6 BMI: 32.3 Code: 64812-8 Heart Rate 1: 97 bpm Height: 5'7" SpO2: 99% Weight: 206 lbs 09/07/2014 Blood Pressure 1: 132/78 Code: 8480-6 BMI: 31.2 Code: 86068-7 Heart Rate 1: 92 bpm Height: 5'7" Weight: 199 lbs 08/07/2014 Blood Pressure 1: 140/84 Code: 8480-6 Heart Rate 1: 96 bpm Height: 5'7" Weight: Functional Status No Functional Status data History of Present Illness Symptom Name Status Result Effective Date Notes Test results HgbA1c level 11.3 03/11/2018 None [...] with shunt placement- 08-11-14- Dr Ruvalcaba in [place] did surgery headache Onset and Resolution ongoing [...] data Encounters Encounter Performer Location Codes Date ([id number]) [id number] EST. PATIENT, LEVEL IV Diagnosis: Type 2 diabetes mellitus with hyperglycemia[ICD10: E11.65] Diagnosis: Mixed hyperlipidemia[ICD10: E78.2] Diagnosis: Essential (primary) hypertension[ICD10: I10] Kaylan Dunham MD, [facility] CPT-4: 75979 03/11/2018 [id number] EST. PATIENT, LEVEL III Diagnosis: Paresthesia of skin[ICD10: R20.2] Aditi Dunham MD, [facility] CPT-4: 69589 02/17/2018 [id number] EST. PATIENT, LEVEL IV Diagnosis: Pain in right shoulder[ICD10: M25.511] Diagnosis: Rash and other nonspecific skin eruption[ICD10: R21] Aditi Dunham MD, [facility] CPT-4: 12778 12/21/2017 [id number] EST. PATIENT, LEVEL IV Diagnosis: Other acute sinusitis[ICD10: J01.80] Diagnosis: Other allergic rhinitis[ICD10: J30.89] Diagnosis: Localized edema[ICD10: R60.0] Aditi Dunham MD, [facility] CPT-4: 20944 11/30/2017 ([id number]) 41741 EST. PATIENT, LEVEL III Diagnosis: Acute recurrent maxillary sinusitis[ICD10: J01.01] Diagnosis: Cough[ICD10: R05] Tavia Dunham MD, [facility] CPT-4: 17730 05/28/2017 ([id number]) 53851 EST. PATIENT, LEVEL III Diagnosis: Acute laryngopharyngitis[ICD10: J06.0] Diagnosis: Cough[ICD10: R05] Tavia Dunham MD, [facility] CPT-4: 11586 04/16/2017 29283 EST. PATIENT, LEVEL III Diagnosis: Left lower quadrant pain[ICD10: R10.32] Aditi Dunham MD, [facility] CPT-4: 50328 02/10/2017 ([id number]) 61402 EST. PATIENT, LEVEL III Diagnosis: Pain in thoracic spine[ICD10: M54.6] Diagnosis: Other muscle spasm[ICD10: M62.838] Tavia Dunham MD, [facility] CPT- 4: 53685 02/02/2017 ([id number]) 49331 EST. PATIENT, LEVEL IV Diagnosis: Other acute pancreatitis without necrosis or infection[ICD10: K85.80] Diagnosis: Epigastric pain[ICD10: R10.13] Diagnosis: Type 2 diabetes mellitus without complications[ICD10: E11.9] Tavia Dunham MD, [facility] CPT-4: 30695 01/27/2017 [id number] EST. PATIENT, LEVEL IV Diagnosis: Essential (primary) hypertension[ICD10: I10] Diagnosis: Type 1 diabetes mellitus without complications[ICD10: E10.9] Diagnosis: Other specified hypothyroidism[ICD10: E03.8] Diagnosis: Bilateral primary osteoarthritis of hip[ICD10: M16.0] Diagnosis: Actinic keratosis[ICD10: L57.0] Aditi Dunham MD, [facility] CPT-4: 42072 11/07/2016 43724 EST. PATIENT, LEVEL III Diagnosis: Other acute sinusitis[ICD10: J01.80] Diagnosis: Other allergic rhinitis[ICD10: J30.89] Diagnosis: Cough[ICD10: R05] Aditi Dunham MD, [facility] CPT-4: 69721 03/26/2016 ([id number]) 87375 EST. PATIENT, LEVEL IV Diagnosis: Essential (primary) hypertension[ICD10: I10] Diagnosis: Pure hyperglyceridemia[ICD10: E78.1] Tavia Dunham MD, [facility] CPT- 4: 91169 12/13/2015 ([id number]) 23587 EST. PATIENT, LEVEL III Diagnosis: Essential (primary) hypertension[ICD10: I10] Diagnosis: (Idiopathic) normal pressure hydrocephalus[ICD10: G91.2] Tavia Dunham MD, [facility] CPT-4: 70176 08/15/2015 63052 EST. PATIENT, LEVEL III Diagnosis: Other acute nonsuppurative otitis media, right ear[ICD10: H65.191] Diagnosis: Acute upper respiratory infection, unspecified[ICD10: J06.9] Aditi Dunham MD, [facility] CPT-4: 33140 06/13/2015 ([id number]) 14227 EST. PATIENT, LEVEL III Diagnosis: Acute recurrent maxillary sinusitis[ICD10: J01.01] Diagnosis: Allergic rhinitis due to pollen[ICD10: J30.1] Kaylan Dunham MD, [facility] CPT-4: 05160 06/07/2015 ([id number]) 38282 EST. PATIENT, LEVEL IV Diagnosis: (Idiopathic) normal pressure hydrocephalus[ICD10: G91.2] Diagnosis: Essential (primary) hypertension[ICD10: I10] Diagnosis: Dizziness and giddiness[ICD10: R42] Diagnosis: Nausea with vomiting, unspecified[ICD10: R11.2] Kaylan Dunham MD, [facility] CPT-4: 50414 03/13/2015 21702 EST. PATIENT, LEVEL III Diagnosis: Acute sinusitis, unspecified[ICD10: J01.90] Diagnosis: Allergic rhinitis, unspecified[ICD10: J30.9] Tavia Dunham MD, [facility] CPT-4: 91185 12/07/2014 ([id number]) 20243 EST. PATIENT, LEVEL IV Diagnosis: ESSENTIAL HYPERTENSION[ICD9: 401.9] Diagnosis: DIABETES TYPE II[ICD9: 250.00] Diagnosis: NPH (normal pressure hydrocephalus)[ICD9: 331.5] Diagnosis: Hypertriglyceridemia[ICD9: 272.1] Kaylan Dunham MD, [facility] CPT- 4: 37501 09/07/2014 ([id number]) OFFICE/OUTPATIENT VISIT NEW Diagnosis: DIABETES TYPE II[ICD9: 250.00] Diagnosis: ESSENTIAL HYPERTENSION[ICD9: 401.9] Diagnosis: NPH (normal pressure hydrocephalus)[ICD9: 331.5] Diagnosis: Abnormal gait[ICD9: 781.2] Diagnosis: VITAMIN D DEFICIENCY[ICD9: 268.9] Tavia Dunham MD, [facility] CPT- 4: 83724 08/07/2014 Plan of Care Planned Activity Notes Codes Status Date Patient Education: Patient Medication Summary Completed 05/25/2018 Care Plan: A1C [facility] : [id number] Pending 05/25/2018 Referral: Ammon Joiner Patient informed. [...] home. 03/11/2018 Appointment: Kaylan Melendez WPtel: [facility] [phone] (30 min) Complex 03/11/2018 Patient Education: Patient Medication Summary Completed 03/11/2018 Patient Education: Cholesterol Management Completed 03/11/2018 Patient Education: Hypertension Completed 03/11/2018 Care Plan: Referral Order SNOMED-CT : [id number] Pending 03/11/2018 Visit Plan: Parasthesia - ongoing for about a month - will send RX and refer pt for EMG - The pt is to use prn antiinflammatories to manage acute pain. The patient is to call the office if the pain is worsening or does not improve. 02/17/2018 Appointment: Aditi Hamilton WPtel: [facility] [place] (15 min) Moderate 02/17/2018 Patient Education: Patient [...] discharge. 12/21/2017 Appointment: Aditi Hamilton WPtel: [facility] [place] [place] (15 min) Moderate 12/21/2017 Patient Education: Patient Medication Summary Completed 12/21/2017 Appointment: Tavia Dunham WPtel: [facility] [place] (15 min) Moderate 12/02/2017 Visit Plan: Sinusitis [...] edema. 11/30/2017 Appointment: Aditi Hamilton [facility]Ptel[facility] [place] ([facility] min) Moderate 11/30/2017 Patient Education: Patient Medication Summary Completed 11/30/2017 Care Plan: Comp Metabolic Pending 11/30/2017 Care Plan: Cbc With Differential Pending 11/30/2017 Care Plan: %Hba1C LOINC : 11354-9 Pending 11/30/2017 Care Plan: Lipid Pending 11/30/2017 Care Plan: Tsh Pending 11/30/2017 Care Plan: Free T4 Pending 11/30/2017 [phone] [place] (15 min) Moderate 11/26/2017 Appointment: Kaylan Melendez WPtel: [facility] [phone] [place] (30 min) Complex 08/13/2017 Appointment: Tavia Dunham WPtel: [facility] [place] [place] (15 min) Moderate 08/04/2017 Appointment: Tavia Dunham WPtel: [phone] [facility] [place] (15 min) Moderate 07/20/2017 Visit Plan: [...] shot today 05/28/2017 Appointment: Tavia Dunham WPtel: [phone] [facility] [place] (30 min) Complex 05/28/2017 Patient Education: [...] pharmacy. 04/16/2017 Appointment: Tavia Dunham WPtel: [facility] [place] [place] (15 min) Moderate 04/16/2017 Patient Education: [...] concerns. 02/10/2017 Appointment: [facility] Hamilton [phone] [facility] [place] (15 min) Moderate 02/10/2017 Patient Education: Patient Medication Summary Completed 02/10/2017 Patient Education: Obesity Completed 02/10/2017 Visit Plan: Pain in Thoracic spine with muscle spasm - ibuprofen 600mg three times daily x 3 days, rx for cyclobenzaprine. 02/02/2017 App[facility]ment: [phone] (15 min) Moderate 02/02/2017 Patient Education: [...] today. 01/27/2017 App[facility]ment: [phone] (15 min) Moderate 01/27/2017 Patient Education: [...] symptoms. 11/07/2016 Appointment: Aditi Hamilton WPtel: [phone] [facility] (30 min) Complex 11/07/2016 Patient Education: Patient [...] allergy spray. 03/26/2016 Appointment: Aditi Hamilton WPtel: [phone] [facility] (30 min) Complex 03/26/2016 Patient Education: Patient [...] to medications. 12/13/2015 Appointment: Tavia Dunham WPtel: [address] [place], [place] [address] (15 min) Moderate 12/13/2015 Patient Education: Patient [...] on supplement. 08/07/2014 Appointment: Tavia Dunham WPtel: [address] [place] [address] [place] (S) New Patient 08/07/2014 Patient Education: [...]
--- NOTE | 2018-10-08 11:19 | Cardiac Cath Report ---
Cardiac Cath Report Physician (s)/Dividend Clerk (s) Physician VANESA RANGEL MD Pre-Procedure Diagnosis Pre-Procedure Diagnosis: STEMI Post-Procedure Note Procedure Start Date: Oct 08, 2018 Name of Procedure: left heart catheterization Left ventriculogram Emergency stenting to the right coronary artery Findings/Procedure Note PROCEDURE NOTE: 53 years old lady admitted with the acute ST elevation myocardial infarctions inferior leads, lateral leads. Has been having chest pain waxing and waning for about a week. Decided to proceed with emergency cardiac catheterization. After explaining the procedure to the patient, all pros and cons were explained, all questions were answered. The patient signed the consent and then she was placed on the cardiac catheterization laboratory. Groin was prepped SL fashion local anesthesia was used. Sheath placed in the right femoral artery. Sharan right and left catheter were used to access the coronary system. Pigtail was used to access the left ventricular cavity. FR guide with sidehole was used, 6000 units of heparin were given then and BMW wire was advanced in the right coronary artery has subtotal occlusion at the midright coronary artery predilatation with 2.5 balloon and then deployment of resolute integrity 2.2526 mm drug-eluting stent expanded to 2.3 mm 109 zuleyka with excellent results. Door to balloon time was 38 minutes Left ventriculogram Was done showing inferior wall hypokinesia estimated ejection fraction 40 percent At the end of the procedure the sheath was removed. Closure device was used FINDINGS: Hemodynamics LV 130/10, end-diastolic pressure of 10 Aorta 117/68 mean of 91 ANATOMY: Left Main is free of obstructive disease Left Anterior Descending is small with mild disease nonobstructive disease Left Circumflex is small with mild to moderate disease at the ostium of the second obtuse marginal branch, nonobstructive disease Right Coronory Artery is dominant artery, small artery with severe stenosis/subtotal occlusion at the midportion successful balloon plasty then deployment of a long stent using resolute integrity 2.2526 mm expanded to 2.3 mm 109 zuleyka, door to balloon time was 38 minutes with excellent results LV Gram was done showing normal left ventricular size and systolic function estimated ejection fraction 40-45 percent CONCLUSION: 1. STEMI with door to balloon/ establishment of flow time 38 minutes 2. Subtotal occlusion of the right coronary artery with successful intervention using resolute integrity 2.2526 mm expanded to 2.3 mm with excellent results 3. Mild to moderate disease in the second obtuse marginal branch, mild disease in the LAD otherwise nonobstructive disease 3. Normal left ventricle size with inferior wall hypokinesia, ejection fraction 40-45 percent DISCUSSION AND RECOMMENDATION: continue to maximize medical therapy. Patient was started on aspirin and Brilinta, started on beta blockers, WILSON inhibitor and Lipitor 80 mg daily Anesthesia Type: Conscious Sedation Estimated blood loss (mL): 15 ml Contrast Amount: 94 ml Total Radiation Dose: 615 mGy Post-Procedure Diagnosis Post-operative diagnosis: Acute ST elevation myocardial infarction Coronary artery disease Hypertension Hyperlipidemia VANESA RANGEL MD Oct 08, 2018 11:19
--- OUTSIDE RECORDS SUMMARY | 2018-10-08 11:19 | XMS REPORT | CCD ---
Author Author [facility] Organization [facility] Address [address] [place] [address] Phone Care Team Providers Care Fruit Inspector Name Role Phone PP Unavailable CCM Unavailable Summary Purpose Interface Exchange Insurance Providers Payer name Policy type / Coverage type Covered libertarian ID Effective Begin Date Effective End Date Blue Cross Blue [facility] Blue Cross/Blue [facility] [id number] Unknown Family history Mother Diagnosis Age At Onset Cancer Unknown Arthritis Unknown Depression Unknown Hyperlipidemia Unknown Diabetes mellitus Type 2 Unknown Social History Social History Element Codes Description Effective Dates Marital status Unknown [place] 08/07/2014 Number of children Unknown 0 08/07/2014 Employment 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[employer] 08/07/[address]: 248279105 Never smoker 08/07/[address]: 192457499 Never drinks alcohol 08/07/2014 Allergies, Adverse Reactions, [...] Fill Instructions hydrochlorothiazide 25 mg tablet RxNorm: 236184 TAKE 1 TABLET BY MOUTH ONCE DAILY 03/23/2018 No Stop Date Active Levemir FlexTouch U-100 Insulin 100 unit/mL (3 mL) subcutaneous pen RxNorm: 432564 30 Unit(s) SQ QAM and 25 Units SQ QPM 03/18/2018 07/15/2018 Active Levemir FlexTouch U-100 Insulin 100 unit/mL (3 mL) subcutaneous pen RxNorm: 595438 Unit(s) 03/11/2018 03/17/2018 Inactive 30 q am and 25 units q PM pravastatin 40 mg tablet RxNorm: 042944 1 Tablet(s) PO daily take with coenzyme q 10 daily 03/03/2018 02/25/2019 Active Levemir FlexTouch U-100 Insulin 100 unit/mL (3 mL) subcutaneous pen RxNorm: 199812 Unit(s) INJECT 25 UNITS SUBCUTANEOUSLY TWICE DAILY 03/03/2018 03/10/2018 Inactive pravastatin 10 mg tablet RxNorm: 854697 1 Tablet(s) PO daily take with coenzyme q 10 daily 02/26/2018 03/02/2018 Inactive prednisone 20 mg tablet RxNorm: 401521 2 Tablet(s) PO daily 02/17/2018 02/21/2018 Inactive levothyroxine 125 mcg tablet RxNorm: 608237 TAKE 1 TABLET BY MOUTH ONCE DAILY 01/11/2018 No Stop Date Active cyclobenzaprine 5 mg tablet RxNorm: 520697 1 Tablet(s) PO TID as needed 12/28/2017 01/11/2018 Inactive Zorvolex 35 mg capsule RxNorm: 6377864 1 Capsule(s) PO TID as needed 12/25/2017 05/23/2018 Inactive Levemir FlexTouch U-100 Insulin 100 unit/mL (3 mL) subcutaneous pen RxNorm: 950861 INJECT 2O UNITS SUBCUTANEOUSLY TWICE DAILY 12/21/2017 03/02/2018 Inactive cyclobenzaprine 5 mg tablet RxNorm: 182350 1 Tablet(s) PO TID as needed 12/21/2017 12/25/2017 Inactive doxycycline hyclate 100 mg capsule RxNorm: 2042959 1 Capsule(s) PO BID 12/21/2017 12/30/2017 Inactive venlafaxine ER 150 mg capsule,extended release 24 hr RxNorm: 336296 TAKE 1 CAPSULE BY MOUTH ONCE DAILY 12/10/2017 No Stop Date Active Singulair 10 mg tablet RxNorm: 437225 1 Tablet(s) PO daily 12/03/2017 12/02/2017 Inactive Singulair 10 mg tablet RxNorm: 551801 1 Tablet(s) PO daily 12/03/2017 01/01/2018 Inactive Zithromax Z-Kulwant 250 mg tablet RxNorm: 526815 1 Tablet(s) PO UD 12/03/2017 03/10/2018 Inactive z pack as directed Kenalog 40 mg/mL suspension for injection RxNorm: 2645203 1 Milliliter(s) Inj 11/30/2017 11/30/2017 Inactive prednisone 20 mg tablet RxNorm: 491821 2 Tablet(s) PO daily 11/30/2017 12/04/2017 Inactive Augmentin 875 mg-125 mg tablet RxNorm: 246987 1 Tablet(s) PO BID 11/27/2017 11/26/2017 Inactive Augmentin 875 mg-125 mg tablet RxNorm: 947206 1 Tablet(s) PO BID 11/27/2017 12/03/2017 Inactive Zorvolex 35 mg capsule RxNorm: 0615724 1 Capsule(s) PO TID as needed 11/09/2017 12/24/2017 Inactive hydrochlorothiazide 25 mg tablet RxNorm: 300351 1 Tablet(s) PO daily 10/22/2017 02/18/2018 Inactive enalapril maleate 5 mg tablet RxNorm: 008494 1 Tablet(s) PO daily TAKE ONE TABLET BY MOUTH ONCE DAILY 08/21/2017 02/16/2018 Inactive Levemir FlexTouch U-100 Insulin 100 unit/mL (3 mL) subcutaneous pen RxNorm: 675917 20 Unit(s) SQ BID 07/30/2017 12/20/2017 Inactive levothyroxine 125 mcg tablet RxNorm: 382731 TAKE ONE TABLET BY MOUTH ONCE DAILY 06/29/2017 01/10/2018 Inactive venlafaxine ER 150 mg capsule,extended release 24 hr RxNorm: 115938 1 Capsule(s) PO daily TAKE ONE CAPSULE BY MOUTH ONCE DAILY 06/08/2017 12/04/2017 Inactive prednisone 20 mg tablet RxNorm: 509321 1 Tablet(s) PO daily 06/02/2017 06/06/2017 Inactive prednisone 20 mg tablet RxNorm: 184187 1 Tablet(s) PO daily 06/01/2017 06/05/2017 Inactive Kenalog 40 mg/mL suspension for injection RxNorm: 5023045 1 Milliliter(s) Inj 05/28/2017 05/28/2017 Inactive cefdinir 300 mg capsule RxNorm: 425970 1 Capsule(s) PO BID 05/28/2017 06/03/2017 Inactive ceftriaxone 500 mg solution for injection RxNorm: 1834569 1 Inj 05/28/2017 05/28/2017 Inactive prednisone 20 mg tablet RxNorm: 989916 1 Tablet(s) PO daily 05/28/2017 05/31/2017 Inactive Keflex 500 mg capsule RxNorm: 705204 1 Capsule(s) PO TID 05/26/2017 06/01/2017 Inactive Keflex 500 mg capsule RxNorm: 583086 1 Capsule(s) PO TID 05/26/2017 05/25/2017 Inactive hydrocodone 10 mg-chlorpheniramine 8 mg/5 mL oral susp extend.rel 12hr RxNorm: 8828289 5-10 Milliliter(s) PO TID as needed 04/16/2017 No Stop Date Active Tussionex Pennkinetic ER 10 mg-8 mg/5 mL suspension,extended release RxNorm: 1379699 5 Milliliter(s) PO BID 04/16/2017 04/27/2017 Inactive Zithromax Z-Kulwant 250 mg tablet RxNorm: 598640 1 Tablet(s) PO UD 03/25/2017 04/15/2017 Inactive z pack as directed enalapril maleate 5 mg tablet RxNorm: 696649 TAKE ONE TABLET BY MOUTH ONCE DAILY 02/26/2017 08/20/2017 Inactive Levemir FlexTouch 100 unit/mL (3 mL) subcutaneous insulin pen RxNorm: 933350 20 Unit(s) SQ BID 02/10/2017 07/11/2017 Inactive Zorvolex 35 mg capsule RxNorm: 8014738 1 Capsule(s) PO TID as needed 02/10/2017 11/08/2017 Inactive valacyclovir 1 gram tablet RxNorm: 980450 1 Tablet(s) PO TID 02/10/2017 02/16/2017 Inactive Levemir FlexTouch 100 unit/mL (3 mL) subcutaneous insulin pen RxNorm: 281036 20 Unit(s) SQ BID 02/04/2017 02/09/2017 Inactive cyclobenzaprine 5 mg tablet RxNorm: 743132 1 Tablet(s) PO qhs x 3 nights and TID as needed muscle spasms 02/02/2017 No Stop Date Active levothyroxine 125 mcg tablet RxNorm: 914652 TAKE ONE TABLET BY MOUTH ONCE DAILY 12/08/2016 06/05/2017 Inactive venlafaxine ER 150 mg capsule,extended release 24 hr RxNorm: 280595 TAKE ONE CAPSULE BY MOUTH ONCE DAILY 12/01/2016 05/29/2017 Inactive Zorvolex 35 mg capsule RxNorm: 6876594 1 Capsule(s) PO TID as needed do not take meloxicam at the same time 11/07/2016 No Stop Date Active enalapril maleate 5 mg tablet RxNorm: 613513 TAKE ONE TABLET BY MOUTH ONCE DAILY 10/31/2016 12/29/2016 Inactive meloxicam 15 mg tablet RxNorm: 023761 TAKE ONE TABLET BY MOUTH ONCE DAILY 10/30/2016 03/10/2018 Inactive meloxicam 15 mg tablet RxNorm: 935107 TAKE ONE TABLET BY MOUTH ONCE DAILY 10/24/2016 10/29/2016 Inactive enalapril maleate 5 mg tablet RxNorm: 250686 TAKE ONE TABLET BY MOUTH ONCE DAILY 10/24/2016 10/30/2016 Inactive venlafaxine ER 150 mg capsule,extended release 24 hr RxNorm: 850474 TAKE ONE CAPSULE BY MOUTH ONCE DAILY 06/16/2016 11/12/2016 Inactive meloxicam 15 mg tablet RxNorm: 692856 TAKE ONE TABLET BY MOUTH ONCE DAILY 06/09/2016 10/06/2016 Inactive enalapril maleate 5 mg tablet RxNorm: 875389 TAKE ONE TABLET BY MOUTH ONCE DAILY 06/02/2016 09/29/2016 Inactive Zithromax Z-Kulwant 250 mg tablet RxNorm: 924029 1 Tablet(s) PO UD 05/21/2016 06/15/2016 Inactive levothyroxine 125 mcg tablet RxNorm: 860676 Tablet(s) TAKE ONE TABLET BY MOUTH ONCE DAILY 04/15/2016 10/11/2016 Inactive Levaquin 500 mg tablet RxNorm: 997526 1 Tablet(s) PO daily 04/03/2016 04/09/2016 Inactive Levaquin 500 mg tablet RxNorm: 076225 1 Tablet(s) PO daily 04/03/2016 04/02/2016 Inactive prednisone 20 mg tablet RxNorm: 925936 2 Tablet(s) PO daily 03/28/2016 04/01/2016 Inactive Zithromax Z-Kulwant 250 mg tablet RxNorm: 880191 1 Tablet(s) PO UD 03/26/2016 03/30/2016 Inactive zpack Kenalog 40 mg/mL suspension for injection RxNorm: 9883742 Milliliter(s) Inj 03/26/2016 03/26/2016 Inactive Zofran ODT 4 mg disintegrating tablet RxNorm: 794671 DISSOLVE ONE TABLET IN MOUTH EVERY 6 HOURS NEEDED 02/22/2016 02/29/2016 Inactive venlafaxine ER 150 mg capsule,extended release 24 hr RxNorm: 990208 TAKE ONE CAPSULE BY MOUTH ONCE DAILY 02/18/2016 06/15/2016 Inactive meloxicam 15 mg tablet RxNorm: 152709 TAKE ONE TABLET BY MOUTH ONCE DAILY 02/04/2016 06/02/2016 Inactive aspirin 81 mg chewable tablet RxNorm: 326379 1 Tablet(s) PO daily 12/13/2015 12/06/2016 Inactive biotin 2,500 mcg tablet RxNorm: 067289 1 Tablet(s) PO daily 12/13/2015 09/07/2016 Inactive hydrochlorothiazide 25 mg tablet RxNorm: 462841 1 Tablet(s) PO daily 12/13/2015 04/10/2016 Inactive enalapril maleate 5 mg tablet RxNorm: 417752 TAKE ONE TABLET BY MOUTH ONCE DAILY 11/22/2015 05/19/2016 Inactive venlafaxine ER 150 mg capsule,extended release 24 hr RxNorm: 873251 TAKE ONE CAPSULE BY MOUTH ONCE DAILY 11/14/2015 02/11/2016 Inactive levothyroxine 125 mcg tablet RxNorm: 608955 Tablet(s) TAKE ONE TABLET BY MOUTH ONCE DAILY 11/06/2015 04/14/2016 Inactive levothyroxine 125 mcg tablet RxNorm: 124839 Tablet(s) TAKE ONE TABLET BY MOUTH ONCE DAILY 08/06/2015 11/03/2015 Inactive meclizine 25 mg tablet RxNorm: 990078 1/2-1 Tablet(s) PO Q6 as needed 07/16/2015 No Stop Date Active Flonase Allergy Relief 50 mcg/actuation nasal spray,suspension RxNorm: 1 [place] NASAL daily 06/13/2015 No Stop Date Active prednisone 20 mg tablet RxNorm: 183206 2 Tablet(s) PO daily 06/13/2015 06/17/2015 Inactive Augmentin 875 mg-125 mg tablet RxNorm: 540072 1 Tablet(s) PO BID 06/13/2015 06/19/2015 Inactive Zithromax Z-Kulwant 250 mg tablet RxNorm: 510912 1 Tablet(s) PO UD 06/07/2015 06/11/2015 Inactive zpack Kenalog 40 mg/mL suspension for injection RxNorm: 8360910 Milliliter(s) Inj 06/07/2015 06/07/2015 Inactive venlafaxine ER 150 mg capsule,extended release 24 hr RxNorm: 407485 TAKE ONE CAPSULE BY MOUTH ONCE DAILY 05/14/2015 11/09/2015 Inactive Augmentin 500 mg-125 mg tablet RxNorm: 347653 1 Tablet(s) PO TID 04/25/2015 05/04/2015 Inactive Augmentin 500 mg-125 mg tablet RxNorm: 283253 1 Tablet(s) PO TID 04/25/2015 04/24/2015 Inactive pravastatin 10 mg tablet RxNorm: 310501 1 Tablet(s) PO daily take with coenzyme q 10 daily 03/21/2015 03/20/2015 Inactive DC crestor pravastatin 10 mg tablet RxNorm: 438088 1 Tablet(s) PO daily take with coenzyme q 10 daily 03/21/2015 07/18/2015 Inactive DC crestor Zofran ODT 4 mg disintegrating tablet RxNorm: 284676 1 Tablet(s) PO Q6 PRN 03/13/2015 02/21/2016 Inactive levothyroxine 125 mcg tablet RxNorm: 795170 TAKE ONE TABLET BY MOUTH ONCE DAILY 02/13/2015 08/05/2015 Inactive meloxicam 15 mg tablet RxNorm: 171347 1 Tablet(s) PO daily 01/28/2015 01/22/2016 Inactive Zofran 4 mg tablet RxNorm: 738140 1 Tablet(s) PO Q6-8H as needed nausea 01/24/2015 No Stop Date Active Trulicity 1.5 mg/0.5 mL subcutaneous pen injector RxNorm: 4612419 0.75mg Milliliter(s) SQ QW 01/10/2015 03/10/2018 Inactive venlafaxine ER 150 mg capsule,extended release 24 hr RxNorm: 076223 1 Capsule(s) PO daily 01/10/2015 05/09/2015 Inactive enalapril maleate 5 mg tablet RxNorm: 489139 1 Tablet(s) PO daily 01/04/2015 07/02/2015 Inactive amoxicillin 500 mg tablet RxNorm: 606198 1 Tablet(s) PO BID 12/07/2014 12/06/2014 Inactive Probiotic & Acidophilus 300 million cell-250 mg capsule RxNorm: 1 Capsule(s) PO BID 12/07/2014 12/16/2014 Inactive amoxicillin 500 mg tablet RxNorm: 076547 1 Tablet(s) PO BID 12/07/2014 12/16/2014 Inactive Kenalog 40 mg/mL suspension for injection RxNorm: 3600755 1 Milliliter(s) Inj 12/07/2014 12/07/2014 Inactive meloxicam 15 mg tablet RxNorm: 831235 1 Tablet(s) PO daily 10/24/2014 10/23/2014 Inactive meloxicam 15 mg tablet RxNorm: 022896 1 Tablet(s) PO daily 10/24/2014 01/27/2015 Inactive azithromycin 500 mg tablet RxNorm: 082750 1 Tablet(s) PO daily 10/11/2014 10/15/2014 Inactive azithromycin 500 mg tablet RxNorm: 135981 1 Tablet(s) PO daily 10/11/2014 10/10/2014 Inactive levothyroxine 125 mcg tablet RxNorm: 637562 1 Tablet(s) PO daily 10/06/2014 02/02/2015 Inactive enalapril maleate 5 mg tablet RxNorm: 851330 1 Tablet(s) PO daily 08/29/2014 12/26/2014 Inactive enalapril maleate 5 mg tablet RxNorm: 575156 1 Tablet(s) PO daily 08/25/2014 08/28/2014 Inactive Medroxy oral RxNorm: 3434585 oral No Start Date Active Vitamin D3 5,000 unit tablet RxNorm: 611305 1 Tablet(s) PO daily No Start Date Active fluconazole 200 mg tablet RxNorm: 724350 Tablet(s) PO No Start Date Active estradiol 2 mg tablet RxNorm: 887267 1 Tablet(s) PO daily No Start Date Active fenofibrate nanocrystallized 145 mg tablet RxNorm: 641290 1 Tablet(s) PO daily No Start Date Active hydrocodone 5 mg-acetaminophen 325 mg tablet RxNorm: 073679 1-2 Tablet(s) PO Q4-6H as needed No Start Date Active enalapril maleate 5 mg tablet RxNorm: 150193 1 Tablet(s) PO daily No Start Date 08/24/2014 Inactive glimepiride 4 mg tablet RxNorm: 302725 1 Tablet(s) PO daily No Start Date 01/26/2017 Inactive meclizine 25 mg tablet RxNorm: 623612 1/2-1 Tablet(s) PO Q6 as needed No Start Date 07/15/2015 Inactive Trulicity 0.75 mg/0.5 mL subcutaneous pen injector RxNorm: 4429031 0.75mg Milliliter(s) SQ QW No Start Date 01/09/2015 Inactive metformin 1,000 mg tablet RxNorm: 235811 Tablet(s) PO BID No Start Date 01/26/2017 Inactive venlafaxine ER 150 mg capsule,extended release 24 hr RxNorm: 244516 1 Capsule(s) PO daily No Start Date 01/09/2015 Inactive meloxicam 15 mg tablet RxNorm: 628473 1 Tablet(s) PO daily No Start Date 10/23/2014 Inactive levothyroxine 125 mcg tablet RxNorm: 344414 1 Tablet(s) PO daily No Start Date 10/05/2014 Inactive Levemir FlexTouch 100 unit/mL (3 mL) subcutaneous insulin pen RxNorm: 324541 15 Unit(s) SQ daily No Start Date 02/03/2017 Inactive Zithromax Z-Kulwant 250 mg tablet RxNorm: 756934 1 Tablet(s) PO UD No Start Date 05/20/2016 Inactive Fish Oil 1,000 mg capsule RxNorm: 1 Capsule(s) PO BID No Start Date 11/04/2016 Inactive Zofran 4 mg tablet RxNorm: 779381 1 Tablet(s) PO Q6-8H as needed nausea No Start Date 01/23/2015 Inactive Crestor 10 mg tablet RxNorm: 361237 1 Tablet(s) PO daily No Start Date 03/20/2015 Inactive Medication Administered Medication Codes Instructions Start Date Status Kenalog 40 mg/mL suspension for injection RxNorm: 8506781 1Milliliter 11/30/2017 No longer Active Kenalog 40 mg/mL suspension for injection RxNorm: 6211526 1Milliliter 05/28/2017 No longer Active ceftriaxone 500 mg solution for injection RxNorm: 2791451 1 05/28/2017 No longer Active Kenalog 40 mg/mL suspension for injection RxNorm: 2161764 Milliliter 03/26/2016 No longer Active Kenalog 40 mg/mL suspension for injection RxNorm: 8052361 Milliliter 06/07/2015 No longer Active Kenalog 40 mg/mL suspension for injection RxNorm: 3517374 1Milliliter 12/07/2014 No longer Active Immunizations Vaccine [...] Item Item Code Result Date CHEM 14 [id number] AST TNP:Lab Request 01/27/2017 CHEM 14 [id number] ALT TNP:Lab Request 01/27/2017 CHEM 14 [id number] BUN TNP:Lab Request 01/27/2017 CHEM 14 [id number] ALBUMIN TNP:Lab Request 01/27/2017 CHEM 14 [id number] CHLORIDE TNP:Lab Request 01/27/2017 CHEM 14 [id number] Bili Total TNP:Lab Request 01/27/2017 CHEM 14 [id number] ALK PHOS TNP:Lab Request 01/27/2017 CHEM 14 [id number] SODIUM TNP:Lab Request 01/27/2017 CHEM 14 [id number] CREATININE TNP:Lab Request 01/27/2017 CHEM 14 [id number] CALCIUM TNP:Lab Request 01/27/2017 CHEM 14 [id number] POTASSIUM TNP:Lab Request 01/27/2017 CHEM 14 [id number] TOTAL PROTEIN TNP:Lab Request 01/27/2017 CHEM 14 [id number] GLUCOSE TNP:Lab Request 01/27/2017 CHEM 14 [id number] Bicarbonate TNP:Lab Request 01/27/2017 CHEM 14 [id number] AGAP TNP:Lab Request 01/27/2017 AMYLASE [id number] Amylase Lvl TNP:Lab Request 01/27/2017 LIPID GRP CHOLESTEROL 273 mg/dL 2016 LIPID GRP Triglyceride 583 mg/dL 2016 LIPID GRP HDL CHOLESTEROL 48 mg/dL 2016 LIPID GRP Chol/HDL Ratio 5.69 ratio 2016 LIPID GRP NON-HDL Chol 225 mg/dL 2016 LIPID GRP LDL Cholesterol N/A Trig >400 2016 A1C HPLC 1544039 Hgb A1c 15315-8 7.3 % 2016 TSH 8283844 TSH 1.340 uIU/mL 2016 FREE T4 7643103 T4 Free 1.60 ng/dL 2016 MEAN GLUC 0601294 Calc Mean Gluc 163 mg/dL 2016 GFR CALC 7765458 GFR Non Afr Amr >60 mL/min 2016 GFR CALC 8918968 GFR Afr Amr >60 mL/min 2016 CBC 9268173 WBC 8.1 10e9/L 2016 CBC 1454339 RBC 4.41 10e12/L 2016 CBC 2573800 HEMOGLOBIN 13.2 g/dL 2016 CBC 5404873 HEMATOCRIT 39.6 % 2016 CBC 1672966 MCV 89.8 fL 2016 CBC 0366233 MCH 29.9 pg 2016 CBC 1346634 MCHC 33.3 g/dL 2016 CBC 7475803 PLATELET COUNT 298 10e9/L 2016 CBC 9215674 Mean Plt Volume 10.5 fL 2016 CBC 1303756 Neut Auto 61.3 % 2016 CBC 4742371 Lymph Auto 26.3 % 2016 CBC 0456023 [place] Auto 7.7 % 2016 CBC 0870048 RDW 13.6 % 2016 CBC 6028198 Eos Auto 4.2 % 2016 CBC 2224509 Baso Auto 0.5 % 2016 CBC 5122541 Neutrophil Abs 4.97 10e9/L 2016 CBC 8580653 Lymphocyte Abs 2.13 10e9/L 2016 CBC 9625566 Monocyte Abs 0.62 10e9/L 2016 CBC 8040484 Eosinophil Abs 0.34 10e9/L 2016 CBC 2610362 RDW-SD 44.1 fL 2016 CBC 0513245 Basophil Abs 0.04 10e9/L 2016 CHEM 14 4685803 AST 19 U/L 2016 CHEM 14 8378880 ALT 26 U/L 2016 CHEM 14 5796481 BUN 20 mg/dL 2016 CHEM 14 3094700 ALBUMIN 4.1 g/dL 2016 CHEM 14 2022434 CHLORIDE 99 mmol/L 2016 CHEM 14 3182189 Bili Total 0.3 mg/dL 2016 CHEM 14 3942050 ALK PHOS 55 U/L 2016 CHEM 14 1197892 SODIUM 135 mmol/L 2016 CHEM 14 7248164 CREATININE 0.87 mg/dL 2016 CHEM 14 0675075 CALCIUM 9.3 mg/dL 2016 CHEM 14 9243451 POTASSIUM 4.0 mmol/L 2016 CHEM 14 9614430 TOTAL PROTEIN 7.0 g/dL 2016 CHEM 14 9267678 GLUCOSE 149 mg/dL 2016 CHEM 14 3029147 Bicarbonate 26 mmol/L 2016 CHEM 14 1959255 AGAP 10 mmol/L 2016 Review of Systems [...] 4: J0696 05/28/2017 THER/PROPH/DIAG INJ SC/IM CPT-4: 13954 05/19/2017 KETOROLAC TROMETHAMINE INJ CPT-4: J1885 05/19/2017 TRIAMCINOLONE ACET INJ NOS CPT-4: J3301 03/26/2016 TRIAMCINOLONE ACET INJ NOS CPT-4: J3301 06/07/2015 THER/PROPH/DIAG INJ SC/IM CPT-4: 62792 12/07/2014 TRIAMCINOLONE ACET INJ NOS CPT-4: J3301 12/07/2014 Vital Signs Date Vital 03/11/2018 Blood Pressure 1: 142/82 Code: 8480-6 BMI: 32.1 Code: 45999-9 Heart Rate 1: 87 bpm Height: 5'7" SpO2: 97% Weight: 205 lbs 02/17/2018 Blood Pressure 1: 132/76 Code: 8480-6 BMI: 33.5 Code: 20529-6 Heart Rate 1: 92 bpm Height: 5'7" SpO2: 98% Weight: 214 lbs 12/21/2017 Blood Pressure 1: 154/78 Code: 8480-6 BMI: 33.5 Code: 78130-8 Heart Rate 1: 93 bpm Height: 5'7" SpO2: 96% Weight: 214 lbs 11/30/2017 Blood Pressure 1: 148/88 Code: 8480-6 BMI: 33.5 Code: 12032-4 Heart Rate 1: 80 bpm Height: 5'7" SpO2: 97% Temperature: 36.9 (C) / 98.5 (F) Weight: 214 lbs 05/28/2017 Blood Pressure 1: 128/70 Code: 8480-6 BMI: 31.3 Code: 22936-5 Heart Rate 1: 103 bpm Height: 5'7" SpO2: 98% Temperature: 36.7 (C) / 98.1 (F) Weight: 200 lbs 05/19/2017 Blood Pressure 1: 150/72 Code: 8480-6 04/16/2017 Blood Pressure 1: 146/88 Code: 8480-6 BMI: 31.3 Code: 01858-4 Heart Rate 1: 96 bpm Height: 5'7" SpO2: 94% Temperature: 37.2 (C) / 99.0 (F) Weight: 200 lbs 02/10/2017 Blood Pressure 1: 132/72 Code: 8480-6 BMI: 31.3 Code: 29222-1 Heart Rate 1: 99 bpm Height: 5'7" SpO2: 97% Weight: 200 lbs 02/02/2017 Blood Pressure 1: 140/68 Code: 8480-6 BMI: 31.4 Code: 87783-6 Heart Rate 1: 82 bpm Height: 5'7" SpO2: 97% Weight: 200 lbs 8 oz 01/27/2017 Blood Pressure 1: 142/80 Code: 8480-6 BMI: 32.2 Code: 88621-3 Height: 5'7" Temperature: 37.2 (C) / 98.9 (F) Weight: 205 lbs 8 oz 11/07/2016 Blood Pressure 1: 148/82 Code: 8480-6 BMI: 32.7 Code: 81622-0 Heart Rate 1: 106 bpm Height: 5'7" SpO2: 97% Weight: 209 lbs 03/26/2016 Blood Pressure 1: 140/86 Code: 8480-6 Heart Rate 1: 90 bpm Height: SpO2: 97% Weight: 12/13/2015 Blood Pressure 1: 132/72 Code: 8480-6 BMI: 31.2 Code: 44579-7 Heart Rate 1: 84 bpm Height: 5'7" SpO2: 98% Weight: 199 lbs 08/15/2015 Blood Pressure 1: 138/88 Code: 8480-6 BMI: 32.1 Code: 45043-3 Heart Rate 1: 94 bpm Height: 5'7" SpO2: 97% Weight: 205 lbs 06/13/2015 Blood Pressure 1: 188/88 Code: 8480-6 Blood Pressure 1: 146/78 Code: 8480-6 BMI: 32.6 Code: 98219-1 Heart Rate 1: 97 bpm Height: 5'7" SpO2: 98% Weight: 208 lbs 06/07/2015 Blood Pressure 1: 128/82 Code: 8480-6 BMI: 32.4 Code: 80104-4 Heart Rate 1: 80 bpm Height: 5'7" SpO2: 99% Weight: 207 lbs 03/13/2015 Blood Pressure 1: 124/70 Code: 8480-6 BMI: 31.6 Code: 97251-2 Heart Rate 1: 103 bpm Height: 5'7" Respiratory Rate: 18 bpm SpO2: 97% Temperature: 36.6 (C) / 97.8 (F) Weight: 202 lbs 12/07/2014 Blood Pressure 1: 140/80 Code: 8480-6 BMI: 32.3 Code: 15753-6 Heart Rate 1: 97 bpm Height: 5'7" SpO2: 99% Weight: 206 lbs 09/07/2014 Blood Pressure 1: 132/78 Code: 8480-6 BMI: 31.2 Code: 03494-4 Heart Rate 1: 92 bpm Height: 5'7" [...] with shunt placement- 08-11-14- Dr Ruvalcaba in [place] did surgery headache Onset and Resolution ongoing [...] data Encounters Encounter Performer Location Codes Date ([id number]) 19134 EST. PATIENT, LEVEL IV Diagnosis: Type 2 diabetes mellitus with hyperglycemia[ICD10: E11.65] Diagnosis: Mixed hyperlipidemia[ICD10: E78.2] Diagnosis: Essential (primary) hypertension[ICD10: I10] Kaylan Dunham MD, [facility] CPT-4: 85601 03/11/2018 [id number] EST. PATIENT, LEVEL III Diagnosis: Paresthesia of skin[ICD10: R20.2] Aditi Dunham MD, [facility] CPT-4: 50056 02/17/2018 79714 EST. PATIENT, LEVEL IV Diagnosis: Pain in right shoulder[ICD10: M25.511] Diagnosis: Rash and other nonspecific skin eruption[ICD10: R21] Aditi Dunham MD, [facility] CPT-4: 29366 12/21/2017 [id number] EST. PATIENT, LEVEL IV Diagnosis: Other acute sinusitis[ICD10: J01.80] Diagnosis: Other allergic rhinitis[ICD10: J30.89] Diagnosis: Localized edema[ICD10: R60.0] Aditi Dunham MD, [facility] CPT-4: 14413 11/30/2017 ([id number]) 33760 EST. PATIENT, LEVEL III Diagnosis: Acute recurrent maxillary sinusitis[ICD10: J01.01] Diagnosis: Cough[ICD10: R05] Tavia Dunham MD, [facility] CPT-4: 94364 05/28/2017 ([id number]) 15077 EST. PATIENT, LEVEL III Diagnosis: Acute laryngopharyngitis[ICD10: J06.0] Diagnosis: Cough[ICD10: R05] Tavia Dunham MD, [facility] CPT-4: 51684 04/16/2017 [id number] EST. PATIENT, LEVEL III Diagnosis: Left lower quadrant pain[ICD10: R10.32] Aditi Dunham MD, [facility] CPT-4: 82277 02/10/2017 ([id number]) 26981 EST. PATIENT, LEVEL III Diagnosis: Pain in thoracic spine[ICD10: M54.6] Diagnosis: Other muscle spasm[ICD10: M62.838] Tavia Dunham MD, [facility] CPT- 4: 15213 02/02/2017 ([id number]) 06233 EST. PATIENT, LEVEL IV Diagnosis: Other acute pancreatitis without necrosis or infection[ICD10: K85.80] Diagnosis: Epigastric pain[ICD10: R10.13] Diagnosis: Type 2 diabetes mellitus without complications[ICD10: E11.9] Tavia Dunham MD, [facility] CPT-4: 88590 01/27/2017 [id number] EST. PATIENT, LEVEL IV Diagnosis: Essential (primary) hypertension[ICD10: I10] Diagnosis: Type 1 diabetes mellitus without complications[ICD10: E10.9] Diagnosis: Other specified hypothyroidism[ICD10: E03.8] Diagnosis: Bilateral primary osteoarthritis of hip[ICD10: M16.0] Diagnosis: Actinic keratosis[ICD10: L57.0] Aditi Dunham MD, [facility] CPT-4: 22287 11/07/2016 [id number] EST. PATIENT, LEVEL III Diagnosis: Other acute sinusitis[ICD10: J01.80] Diagnosis: Other allergic rhinitis[ICD10: J30.89] Diagnosis: Cough[ICD10: R05] Aditi Dunham MD, [facility] CPT-4: 42488 03/26/2016 ([id number]) 24673 EST. PATIENT, LEVEL IV Diagnosis: Essential (primary) hypertension[ICD10: I10] Diagnosis: Pure hyperglyceridemia[ICD10: E78.1] Tavia Dunham MD, [facility] CPT- 4: 12225 12/13/2015 ([id number]) [id number] EST. PATIENT, LEVEL III Diagnosis: Essential (primary) hypertension[ICD10: I10] Diagnosis: (Idiopathic) normal pressure hydrocephalus[ICD10: G91.2] Tavia Dunham MD, [facility] CPT-4: 55007 08/15/2015 [id number] EST. PATIENT, LEVEL III Diagnosis: Other acute nonsuppurative otitis media, right ear[ICD10: H65.191] Diagnosis: Acute upper respiratory infection, unspecified[ICD10: J06.9] Aditi Dunham MD, [facility] CPT-4: 09405 06/13/2015 ([id number]) [id number] EST. PATIENT, LEVEL III Diagnosis: Acute recurrent maxillary sinusitis[ICD10: J01.01] Diagnosis: Allergic rhinitis due to pollen[ICD10: J30.1] Kaylan Dunham MD, [facility] CPT-4: 76253 06/07/2015 ([id number]) [id number] EST. PATIENT, LEVEL IV Diagnosis: (Idiopathic) normal pressure hydrocephalus[ICD10: G91.2] Diagnosis: Essential (primary) hypertension[ICD10: I10] Diagnosis: Dizziness and giddiness[ICD10: R42] Diagnosis: Nausea with vomiting, unspecified[ICD10: R11.2] Kaylan Dunham MD, [facility] CPT-4: 84575 03/13/2015 [id number] EST. PATIENT, LEVEL III Diagnosis: Acute sinusitis, unspecified[ICD10: J01.90] Diagnosis: Allergic rhinitis, unspecified[ICD10: J30.9] Tavia Dunham MD, [facility] CPT-4: 84257 12/07/2014 ([id number]) 10775 EST. PATIENT, LEVEL IV Diagnosis: ESSENTIAL HYPERTENSION[ICD9: 401.9] Diagnosis: DIABETES TYPE II[ICD9: 250.00] Diagnosis: NPH (normal pressure hydrocephalus)[ICD9: 331.5] Diagnosis: Hypertriglyceridemia[ICD9: 272.1] Kaylan Dunham MD, [facility] CPT- 4: 67386 09/07/2014 ([id number]) OFFICE/OUTPATIENT VISIT NEW Diagnosis: DIABETES TYPE II[ICD9: 250.00] Diagnosis: ESSENTIAL HYPERTENSION[ICD9: 401.9] Diagnosis: NPH (normal pressure hydrocephalus)[ICD9: 331.5] Diagnosis: Abnormal gait[ICD9: 781.2] Diagnosis: VITAMIN D DEFICIENCY[ICD9: 268.9] Tavia Dunham MD, [facility] CPT- 4: 23821 08/07/2014 Plan of Care Planned Activity Notes Codes Status Date Patient Education: Patient Medication Summary Completed 05/25/2018 Care Plan: A1C [facility] : [id number] Pending 05/25/2018 Referral: Ammon Joiner Patient informed. [...] at home. 03/11/2018 Appointment: Kaylan Melendez WPtel: [facility]0 [phone] (30 min) Complex 03/11/2018 Patient Education: Patient Medication Summary Completed 03/11/2018 Patient Education: Cholesterol Management Completed 03/11/2018 Patient Education: Hypertension Completed 03/11/2018 Care Plan: Referral Order SNOMED-CT : [id number] Pending 03/11/2018 Visit Plan: Parasthesia - ongoing for about a month - will send RX and refer pt for EMG - The pt is to use prn antiinflammatories to manage acute pain. The patient is to call the office if the pain is worsening or does not improve. 02/17/2018 Appointment: Aditi Hamilton WPtel: [facility] (15 min) Moderate 02/17/2018 Patient Education: [...] warmth, discharge. 12/21/2017 Appointment: Aditi Hamilton WPtel: [facility]0 [facility] [place] (15 min) Moderate 12/21/2017 Patient Education: Patient Medication Summary Completed 12/21/2017 Appointment: Tavia Dunham WPtel: [facility]5 [facility] (15 min) Moderate 12/02/2017 Visit Plan: Sinusitis [...] peripheral edema. 11/30/2017 Appointment: Aditi Hamilton [facility]Ptel[facility] ([facility] Mod[facility] 11/30/2017 Patient Education: Patient Medication Summary Completed 11/30/2017 Care Plan: Comp Metabolic Pending 11/30/2017 Care Plan: Cbc With Differential Pending 11/30/2017 Care Plan: %Hba1C LOINC : 67339-6 Pending 11/30/2017 Care Plan: Lipid Pending 11/30/2017 Care Plan: Tsh Pending 11/30/2017 Care Plan: Free T4 Pending 11/30/2017 [phone] [place] (15 min) Moderate 11/26/2017 Appointment: Kaylan Melendez WPtel: [facility]5 [phone] [place] (30 min) Complex 08/13/2017 Appointment: Tavia Dunham WPtel: [facility]8 [facility] [place] (15 min) Moderate 08/04/2017 Appointment: Tavia Dunham WPtel: [phone] [facility] [place] (15 min) Moderate 07/20/2017 Visit Plan: [...] shot today 05/28/2017 Appointment: Tavia Dunham WPtel: [phone] [facility] [place] (30 min) Complex 05/28/2017 Patient Education: [...] patient's pharmacy. 04/16/2017 Appointment: Tavia Dunham WPtel: [facility]8 [facility] [place] (15 min) Moderate 04/16/2017 Patient Education: [...] or concerns. 02/10/2017 App[facility]ment: [phone] [place] (15 min) Moderate 02/10/2017 Patient Education: Patient Medication Summary Completed 02/10/2017 Patient Education: Obesity Completed 02/10/2017 Visit Plan: Pain in Thoracic spine with muscle spasm - ibuprofen 600mg three times daily x 3 days, rx for cyclobenzaprine. 02/02/2017 App[facility]ment: [phone] (15 min) Moderate 02/02/2017 Patient Education: Patient [...] today. 01/27/2017 App[facility]ment: [phone] (15 min) Moderate 01/27/2017 Patient Education: Patient [...] symptoms. 11/07/2016 Appointment: Aditi Hamilton WPtel: [phone] [facility] (30 min) Complex 11/07/2016 Patient Education: [...] allergy spray. 03/26/2016 Appointment: Aditi Hamilton WPtel: [phone] [facility] (30 min) Complex 03/26/2016 Patient Education: [...] to medications. 12/13/2015 Appointment: Tavia Dunham WPtel: [address] [place] [address] (15 min) Moderate 12/13/2015 Patient Education: Patient [...] on supplement. 08/07/2014 Appointment: Tavia Dunham WPtel: [address] [place] [address] [place] (S) New Patient 08/07/2014 Patient Education: [...]
--- OUTSIDE RECORDS SUMMARY | 2018-10-08 11:22 | XMS REPORT | CCD ---
Author Author [facility] Organization [facility] Address [address] [place] [address] Phone Care Team Providers Care Farm Reporter Name Role Phone PP Unavailable CCM Unavailable Summary Purpose Interface Exchange Insurance Providers Payer name Policy type / Coverage type Covered alliance party ID Effective Begin Date Effective End Date Blue Cross Blue [facility] Blue Cross/Blue [facility] [id number] Unknown Family history Mother Diagnosis Age At Onset Cancer Unknown Arthritis Unknown Depression Unknown Hyperlipidemia Unknown Diabetes mellitus Type 2 Unknown Social History Social History Element Codes Description Effective Dates Marital status Unknown [place] 08/07/2014 Number of children Unknown 0 08/07/2014 Employment Unknown 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 [employer] 08/07/[address]: 420638255 Never smoker 08/07/[address]: 206963492 Never drinks alcohol 08/07/2014 Allergies, Adverse Reactions, [...] Fill Instructions hydrochlorothiazide 25 mg tablet RxNorm: 164703 TAKE 1 TABLET BY MOUTH ONCE DAILY 03/23/2018 No Stop Date Active Levemir FlexTouch U-100 Insulin 100 unit/mL (3 mL) subcutaneous pen RxNorm: 269259 30 Unit(s) SQ QAM and 25 Units SQ QPM 03/18/2018 07/15/2018 Active Levemir FlexTouch U-100 Insulin 100 unit/mL (3 mL) subcutaneous pen RxNorm: 206666 Unit(s) 03/11/2018 03/17/2018 Inactive 30 q am and 25 units q PM pravastatin 40 mg tablet RxNorm: 530435 1 Tablet(s) PO daily take with coenzyme q 10 daily 03/03/2018 02/25/2019 Active Levemir FlexTouch U-100 Insulin 100 unit/mL (3 mL) subcutaneous pen RxNorm: 124800 Unit(s) INJECT 25 UNITS SUBCUTANEOUSLY TWICE DAILY 03/03/2018 03/10/2018 Inactive pravastatin 10 mg tablet RxNorm: 661721 1 Tablet(s) PO daily take with coenzyme q 10 daily 02/26/2018 03/02/2018 Inactive prednisone 20 mg tablet RxNorm: 687567 2 Tablet(s) PO daily 02/17/2018 02/21/2018 Inactive levothyroxine 125 mcg tablet RxNorm: 223426 TAKE 1 TABLET BY MOUTH ONCE DAILY 01/11/2018 No Stop Date Active cyclobenzaprine 5 mg tablet RxNorm: 480880 1 Tablet(s) PO TID as needed 12/28/2017 01/11/2018 Inactive Zorvolex 35 mg capsule RxNorm: 8343170 1 Capsule(s) PO TID as needed 12/25/2017 05/23/2018 Inactive Levemir FlexTouch U-100 Insulin 100 unit/mL (3 mL) subcutaneous pen RxNorm: 261271 INJECT 2O UNITS SUBCUTANEOUSLY TWICE DAILY 12/21/2017 03/02/2018 Inactive cyclobenzaprine 5 mg tablet RxNorm: 790942 1 Tablet(s) PO TID as needed 12/21/2017 12/25/2017 Inactive doxycycline hyclate 100 mg capsule RxNorm: 4099165 1 Capsule(s) PO BID 12/21/2017 12/30/2017 Inactive venlafaxine ER 150 mg capsule,extended release 24 hr RxNorm: 384336 TAKE 1 CAPSULE BY MOUTH ONCE DAILY 12/10/2017 No Stop Date Active Singulair 10 mg tablet RxNorm: 007969 1 Tablet(s) PO daily 12/03/2017 12/02/2017 Inactive Singulair 10 mg tablet RxNorm: 626202 1 Tablet(s) PO daily 12/03/2017 01/01/2018 Inactive Zithromax Z-Kulwant 250 mg tablet RxNorm: 374994 1 Tablet(s) PO UD 12/03/2017 03/10/2018 Inactive z pack as directed Kenalog 40 mg/mL suspension for injection RxNorm: 8327780 1 Milliliter(s) Inj 11/30/2017 11/30/2017 Inactive prednisone 20 mg tablet RxNorm: 824348 2 Tablet(s) PO daily 11/30/2017 12/04/2017 Inactive Augmentin 875 mg-125 mg tablet RxNorm: 082679 1 Tablet(s) PO BID 11/27/2017 11/26/2017 Inactive Augmentin 875 mg-125 mg tablet RxNorm: 347047 1 Tablet(s) PO BID 11/27/2017 12/03/2017 Inactive Zorvolex 35 mg capsule RxNorm: 2105710 1 Capsule(s) PO TID as needed 11/09/2017 12/24/2017 Inactive hydrochlorothiazide 25 mg tablet RxNorm: 642936 1 Tablet(s) PO daily 10/22/2017 02/18/2018 Inactive enalapril maleate 5 mg tablet RxNorm: 042930 1 Tablet(s) PO daily TAKE ONE TABLET BY MOUTH ONCE DAILY 08/21/2017 02/16/2018 Inactive Levemir FlexTouch U-100 Insulin 100 unit/mL (3 mL) subcutaneous pen RxNorm: 866777 20 Unit(s) SQ BID 07/30/2017 12/20/2017 Inactive levothyroxine 125 mcg tablet RxNorm: 600039 TAKE ONE TABLET BY MOUTH ONCE DAILY 06/29/2017 01/10/2018 Inactive venlafaxine ER 150 mg capsule,extended release 24 hr RxNorm: 314852 1 Capsule(s) PO daily TAKE ONE CAPSULE BY MOUTH ONCE DAILY 06/08/2017 12/04/2017 Inactive prednisone 20 mg tablet RxNorm: 585320 1 Tablet(s) PO daily 06/02/2017 06/06/2017 Inactive prednisone 20 mg tablet RxNorm: 780374 1 Tablet(s) PO daily 06/01/2017 06/05/2017 Inactive Kenalog 40 mg/mL suspension for injection RxNorm: 4647509 1 Milliliter(s) Inj 05/28/2017 05/28/2017 Inactive cefdinir 300 mg capsule RxNorm: 136373 1 Capsule(s) PO BID 05/28/2017 06/03/2017 Inactive ceftriaxone 500 mg solution for injection RxNorm: 9120003 1 Inj 05/28/2017 05/28/2017 Inactive prednisone 20 mg tablet RxNorm: 341960 1 Tablet(s) PO daily 05/28/2017 05/31/2017 Inactive Keflex 500 mg capsule RxNorm: 477988 1 Capsule(s) PO TID 05/26/2017 06/01/2017 Inactive Keflex 500 mg capsule RxNorm: 592835 1 Capsule(s) PO TID 05/26/2017 05/25/2017 Inactive hydrocodone 10 mg-chlorpheniramine 8 mg/5 mL oral susp extend.rel 12hr RxNorm: 2845664 5-10 Milliliter(s) PO TID as needed 04/16/2017 No Stop Date Active Tussionex Pennkinetic ER 10 mg-8 mg/5 mL suspension,extended release RxNorm: 7891226 5 Milliliter(s) PO BID 04/16/2017 04/27/2017 Inactive Zithromax Z-Kulwant 250 mg tablet RxNorm: 389785 1 Tablet(s) PO UD 03/25/2017 04/15/2017 Inactive z pack as directed enalapril maleate 5 mg tablet RxNorm: 001659 TAKE ONE TABLET BY MOUTH ONCE DAILY 02/26/2017 08/20/2017 Inactive Levemir FlexTouch 100 unit/mL (3 mL) subcutaneous insulin pen RxNorm: 237691 20 Unit(s) SQ BID 02/10/2017 07/11/2017 Inactive Zorvolex 35 mg capsule RxNorm: 4869375 1 Capsule(s) PO TID as needed 02/10/2017 11/08/2017 Inactive valacyclovir 1 gram tablet RxNorm: 595059 1 Tablet(s) PO TID 02/10/2017 02/16/2017 Inactive Levemir FlexTouch 100 unit/mL (3 mL) subcutaneous insulin pen RxNorm: 807177 20 Unit(s) SQ BID 02/04/2017 02/09/2017 Inactive cyclobenzaprine 5 mg tablet RxNorm: 815684 1 Tablet(s) PO qhs x 3 nights and TID as needed muscle spasms 02/02/2017 No Stop Date Active levothyroxine 125 mcg tablet RxNorm: 801055 TAKE ONE TABLET BY MOUTH ONCE DAILY 12/08/2016 06/05/2017 Inactive venlafaxine ER 150 mg capsule,extended release 24 hr RxNorm: 788226 TAKE ONE CAPSULE BY MOUTH ONCE DAILY 12/01/2016 05/29/2017 Inactive Zorvolex 35 mg capsule RxNorm: 4258758 1 Capsule(s) PO TID as needed do not take meloxicam at the same time 11/07/2016 No Stop Date Active enalapril maleate 5 mg tablet RxNorm: 642204 TAKE ONE TABLET BY MOUTH ONCE DAILY 10/31/2016 12/29/2016 Inactive meloxicam 15 mg tablet RxNorm: 413852 TAKE ONE TABLET BY MOUTH ONCE DAILY 10/30/2016 03/10/2018 Inactive meloxicam 15 mg tablet RxNorm: 914165 TAKE ONE TABLET BY MOUTH ONCE DAILY 10/24/2016 10/29/2016 Inactive enalapril maleate 5 mg tablet RxNorm: 976243 TAKE ONE TABLET BY MOUTH ONCE DAILY 10/24/2016 10/30/2016 Inactive venlafaxine ER 150 mg capsule,extended release 24 hr RxNorm: 950386 TAKE ONE CAPSULE BY MOUTH ONCE DAILY 06/16/2016 11/12/2016 Inactive meloxicam 15 mg tablet RxNorm: 805453 TAKE ONE TABLET BY MOUTH ONCE DAILY 06/09/2016 10/06/2016 Inactive enalapril maleate 5 mg tablet RxNorm: 738414 TAKE ONE TABLET BY MOUTH ONCE DAILY 06/02/2016 09/29/2016 Inactive Zithromax Z-Kulwant 250 mg tablet RxNorm: 619103 1 Tablet(s) PO UD 05/21/2016 06/15/2016 Inactive levothyroxine 125 mcg tablet RxNorm: 988688 Tablet(s) TAKE ONE TABLET BY MOUTH ONCE DAILY 04/15/2016 10/11/2016 Inactive Levaquin 500 mg tablet RxNorm: 248786 1 Tablet(s) PO daily 04/03/2016 04/09/2016 Inactive Levaquin 500 mg tablet RxNorm: 189094 1 Tablet(s) PO daily 04/03/2016 04/02/2016 Inactive prednisone 20 mg tablet RxNorm: 033341 2 Tablet(s) PO daily 03/28/2016 04/01/2016 Inactive Zithromax Z-Kulwant 250 mg tablet RxNorm: 928489 1 Tablet(s) PO UD 03/26/2016 03/30/2016 Inactive zpack Kenalog 40 mg/mL suspension for injection RxNorm: 6504503 Milliliter(s) Inj 03/26/2016 03/26/2016 Inactive Zofran ODT 4 mg disintegrating tablet RxNorm: 142030 DISSOLVE ONE TABLET IN MOUTH EVERY 6 HOURS NEEDED 02/22/2016 02/29/2016 Inactive venlafaxine ER 150 mg capsule,extended release 24 hr RxNorm: 720333 TAKE ONE CAPSULE BY MOUTH ONCE DAILY 02/18/2016 06/15/2016 Inactive meloxicam 15 mg tablet RxNorm: 778812 TAKE ONE TABLET BY MOUTH ONCE DAILY 02/04/2016 06/02/2016 Inactive aspirin 81 mg chewable tablet RxNorm: 733296 1 Tablet(s) PO daily 12/13/2015 12/06/2016 Inactive biotin 2,500 mcg tablet RxNorm: 624191 1 Tablet(s) PO daily 12/13/2015 09/07/2016 Inactive hydrochlorothiazide 25 mg tablet RxNorm: 284129 1 Tablet(s) PO daily 12/13/2015 04/10/2016 Inactive enalapril maleate 5 mg tablet RxNorm: 511307 TAKE ONE TABLET BY MOUTH ONCE DAILY 11/22/2015 05/19/2016 Inactive venlafaxine ER 150 mg capsule,extended release 24 hr RxNorm: 768166 TAKE ONE CAPSULE BY MOUTH ONCE DAILY 11/14/2015 02/11/2016 Inactive levothyroxine 125 mcg tablet RxNorm: 023594 Tablet(s) TAKE ONE TABLET BY MOUTH ONCE DAILY 11/06/2015 04/14/2016 Inactive levothyroxine 125 mcg tablet RxNorm: 010502 Tablet(s) TAKE ONE TABLET BY MOUTH ONCE DAILY 08/06/2015 11/03/2015 Inactive meclizine 25 mg tablet RxNorm: 599062 1/2-1 Tablet(s) PO Q6 as needed 07/16/2015 No Stop Date Active Flonase Allergy Relief 50 mcg/actuation nasal spray,suspension RxNorm: 1 [place] NASAL daily 06/13/2015 No Stop Date Active prednisone 20 mg tablet RxNorm: 802899 2 Tablet(s) PO daily 06/13/2015 06/17/2015 Inactive Augmentin 875 mg-125 mg tablet RxNorm: 418420 1 Tablet(s) PO BID 06/13/2015 06/19/2015 Inactive Zithromax Z-Kulwant 250 mg tablet RxNorm: 768295 1 Tablet(s) PO UD 06/07/2015 06/11/2015 Inactive zpack Kenalog 40 mg/mL suspension for injection RxNorm: 1404174 Milliliter(s) Inj 06/07/2015 06/07/2015 Inactive venlafaxine ER 150 mg capsule,extended release 24 hr RxNorm: 344735 TAKE ONE CAPSULE BY MOUTH ONCE DAILY 05/14/2015 11/09/2015 Inactive Augmentin 500 mg-125 mg tablet RxNorm: 756269 1 Tablet(s) PO TID 04/25/2015 05/04/2015 Inactive Augmentin 500 mg-125 mg tablet RxNorm: 521077 1 Tablet(s) PO TID 04/25/2015 04/24/2015 Inactive pravastatin 10 mg tablet RxNorm: 559033 1 Tablet(s) PO daily take with coenzyme q 10 daily 03/21/2015 03/20/2015 Inactive DC crestor pravastatin 10 mg tablet RxNorm: 578308 1 Tablet(s) PO daily take with coenzyme q 10 daily 03/21/2015 07/18/2015 Inactive DC crestor Zofran ODT 4 mg disintegrating tablet RxNorm: 264856 1 Tablet(s) PO Q6 PRN 03/13/2015 02/21/2016 Inactive levothyroxine 125 mcg tablet RxNorm: 854184 TAKE ONE TABLET BY MOUTH ONCE DAILY 02/13/2015 08/05/2015 Inactive meloxicam 15 mg tablet RxNorm: 461805 1 Tablet(s) PO daily 01/28/2015 01/22/2016 Inactive Zofran 4 mg tablet RxNorm: 915858 1 Tablet(s) PO Q6-8H as needed nausea 01/24/2015 No Stop Date Active Trulicity 1.5 mg/0.5 mL subcutaneous pen injector RxNorm: 5478524 0.75mg Milliliter(s) SQ QW 01/10/2015 03/10/2018 Inactive venlafaxine ER 150 mg capsule,extended release 24 hr RxNorm: 385897 1 Capsule(s) PO daily 01/10/2015 05/09/2015 Inactive enalapril maleate 5 mg tablet RxNorm: 200045 1 Tablet(s) PO daily 01/04/2015 07/02/2015 Inactive amoxicillin 500 mg tablet RxNorm: 491843 1 Tablet(s) PO BID 12/07/2014 12/06/2014 Inactive Probiotic & Acidophilus 300 million cell-250 mg capsule RxNorm: 1 Capsule(s) PO BID 12/07/2014 12/16/2014 Inactive amoxicillin 500 mg tablet RxNorm: 952966 1 Tablet(s) PO BID 12/07/2014 12/16/2014 Inactive Kenalog 40 mg/mL suspension for injection RxNorm: 5388629 1 Milliliter(s) Inj 12/07/2014 12/07/2014 Inactive meloxicam 15 mg tablet RxNorm: 974427 1 Tablet(s) PO daily 10/24/2014 10/23/2014 Inactive meloxicam 15 mg tablet RxNorm: 107142 1 Tablet(s) PO daily 10/24/2014 01/27/2015 Inactive azithromycin 500 mg tablet RxNorm: 452007 1 Tablet(s) PO daily 10/11/2014 10/15/2014 Inactive azithromycin 500 mg tablet RxNorm: 976560 1 Tablet(s) PO daily 10/11/2014 10/10/2014 Inactive levothyroxine 125 mcg tablet RxNorm: 762977 1 Tablet(s) PO daily 10/06/2014 02/02/2015 Inactive enalapril maleate 5 mg tablet RxNorm: 125864 1 Tablet(s) PO daily 08/29/2014 12/26/2014 Inactive enalapril maleate 5 mg tablet RxNorm: 383936 1 Tablet(s) PO daily 08/25/2014 08/28/2014 Inactive Medroxy oral RxNorm: 2657537 oral No Start Date Active Vitamin D3 5,000 unit tablet RxNorm: 006025 1 Tablet(s) PO daily No Start Date Active fluconazole 200 mg tablet RxNorm: 286297 Tablet(s) PO No Start Date Active estradiol 2 mg tablet RxNorm: 164759 1 Tablet(s) PO daily No Start Date Active fenofibrate nanocrystallized 145 mg tablet RxNorm: 371455 1 Tablet(s) PO daily No Start Date Active hydrocodone 5 mg-acetaminophen 325 mg tablet RxNorm: 745523 1-2 Tablet(s) PO Q4-6H as needed No Start Date Active enalapril maleate 5 mg tablet RxNorm: 986670 1 Tablet(s) PO daily No Start Date 08/24/2014 Inactive glimepiride 4 mg tablet RxNorm: 046815 1 Tablet(s) PO daily No Start Date 01/26/2017 Inactive meclizine 25 mg tablet RxNorm: 933146 1/2-1 Tablet(s) PO Q6 as needed No Start Date 07/15/2015 Inactive Trulicity 0.75 mg/0.5 mL subcutaneous pen injector RxNorm: 7565969 0.75mg Milliliter(s) SQ QW No Start Date 01/09/2015 Inactive metformin 1,000 mg tablet RxNorm: 374506 Tablet(s) PO BID No Start Date 01/26/2017 Inactive venlafaxine ER 150 mg capsule,extended release 24 hr RxNorm: 404306 1 Capsule(s) PO daily No Start Date 01/09/2015 Inactive meloxicam 15 mg tablet RxNorm: 957939 1 Tablet(s) PO daily No Start Date 10/23/2014 Inactive levothyroxine 125 mcg tablet RxNorm: 397346 1 Tablet(s) PO daily No Start Date 10/05/2014 Inactive Levemir FlexTouch 100 unit/mL (3 mL) subcutaneous insulin pen RxNorm: 423876 15 Unit(s) SQ daily No Start Date 02/03/2017 Inactive Zithromax Z-Kulwant 250 mg tablet RxNorm: 877257 1 Tablet(s) PO UD No Start Date 05/20/2016 Inactive Fish Oil 1,000 mg capsule RxNorm: 1 Capsule(s) PO BID No Start Date 11/04/2016 Inactive Zofran 4 mg tablet RxNorm: 749967 1 Tablet(s) PO Q6-8H as needed nausea No Start Date 01/23/2015 Inactive Crestor 10 mg tablet RxNorm: 997691 1 Tablet(s) PO daily No Start Date 03/20/2015 Inactive Medication Administered Medication Codes Instructions Start Date Status Kenalog 40 mg/mL suspension for injection RxNorm: 9507619 1Milliliter 11/30/2017 No longer Active Kenalog 40 mg/mL suspension for injection RxNorm: 6536726 1Milliliter 05/28/2017 No longer Active ceftriaxone 500 mg solution for injection RxNorm: 1438110 1 05/28/2017 No longer Active Kenalog 40 mg/mL suspension for injection RxNorm: 5266634 Milliliter 03/26/2016 No longer Active Kenalog 40 mg/mL suspension for injection RxNorm: 5952758 Milliliter 06/07/2015 No longer Active Kenalog 40 mg/mL suspension for injection RxNorm: 7521787 1Milliliter 12/07/2014 No longer Active Immunizations Vaccine [...] Item Item Code Result Date CHEM 14 [id number] AST TNP:Lab Request 01/27/2017 CHEM 14 [id number] ALT TNP:Lab Request 01/27/2017 CHEM 14 [id number] BUN TNP:Lab Request 01/27/2017 CHEM 14 [id number] ALBUMIN TNP:Lab Request 01/27/2017 CHEM 14 [id number] CHLORIDE TNP:Lab Request 01/27/2017 CHEM 14 [id number] Bili Total TNP:Lab Request 01/27/2017 CHEM 14 [id number] ALK PHOS TNP:Lab Request 01/27/2017 CHEM 14 [id number] SODIUM TNP:Lab Request 01/27/2017 CHEM 14 [id number] CREATININE TNP:Lab Request 01/27/2017 CHEM 14 [id number] CALCIUM TNP:Lab Request 01/27/2017 CHEM 14 [id number] POTASSIUM TNP:Lab Request 01/27/2017 CHEM 14 [id number] TOTAL PROTEIN TNP:Lab Request 01/27/2017 CHEM 14 [id number] GLUCOSE TNP:Lab Request 01/27/2017 CHEM 14 [id number] Bicarbonate TNP:Lab Request 01/27/2017 CHEM 14 [id number] AGAP TNP:Lab Request 01/27/2017 AMYLASE [id number] Amylase Lvl TNP:Lab Request 01/27/2017 LIPID GRP CHOLESTEROL 273 mg/dL 2016 LIPID GRP Triglyceride 583 mg/dL 2016 LIPID GRP HDL CHOLESTEROL 48 mg/dL 2016 LIPID GRP Chol/HDL Ratio 5.69 ratio 2016 LIPID GRP NON-HDL Chol 225 mg/dL 2016 LIPID GRP LDL Cholesterol N/A Trig >400 2016 A1C HPLC 9178389 Hgb A1c 31875-9 7.3 % 2016 TSH 1349637 TSH 1.340 uIU/mL 2016 FREE T4 0674565 T4 Free 1.60 ng/dL 2016 MEAN GLUC 1953291 Calc Mean Gluc 163 mg/dL 2016 GFR CALC 3083640 GFR Non Afr Amr >60 mL/min 2016 GFR CALC 3184399 GFR Afr Amr >60 mL/min 2016 CBC 7537957 WBC 8.1 10e9/L 2016 CBC 2169933 RBC 4.41 10e12/L 2016 CBC 1801361 HEMOGLOBIN 13.2 g/dL 2016 CBC 9196852 HEMATOCRIT 39.6 % 2016 CBC 4580346 MCV 89.8 fL 2016 CBC 1586929 MCH 29.9 pg 2016 CBC 7736664 MCHC 33.3 g/dL 2016 CBC 3571317 PLATELET COUNT 298 10e9/L 2016 CBC 9298538 Mean Plt Volume 10.5 fL 2016 CBC 7346733 Neut Auto 61.3 % 2016 CBC 7215273 Lymph Auto 26.3 % 2016 CBC 7156026 [place] Auto 7.7 % 2016 CBC 5304491 RDW 13.6 % 2016 CBC 7975524 Eos Auto 4.2 % 2016 CBC 0116643 Baso Auto 0.5 % 2016 CBC 9524975 Neutrophil Abs 4.97 10e9/L 2016 CBC 6750351 Lymphocyte Abs 2.13 10e9/L 2016 CBC 3706339 Monocyte Abs 0.62 10e9/L 2016 CBC 5416680 Eosinophil Abs 0.34 10e9/L 2016 CBC 8617935 RDW-SD 44.1 fL 2016 CBC 2088519 Basophil Abs 0.04 10e9/L 2016 CHEM 14 7778484 AST 19 U/L 2016 CHEM 14 8153009 ALT 26 U/L 2016 CHEM 14 8055038 BUN 20 mg/dL 2016 CHEM 14 1055701 ALBUMIN 4.1 g/dL 2016 CHEM 14 1658593 CHLORIDE 99 mmol/L 2016 CHEM 14 6525928 Bili Total 0.3 mg/dL 2016 CHEM 14 4952027 ALK PHOS 55 U/L 2016 CHEM 14 4398006 SODIUM 135 mmol/L 2016 CHEM 14 7620587 CREATININE 0.87 mg/dL 2016 CHEM 14 5780778 CALCIUM 9.3 mg/dL 2016 CHEM 14 2867194 POTASSIUM 4.0 mmol/L 2016 CHEM 14 7788916 TOTAL PROTEIN 7.0 g/dL 2016 CHEM 14 5562424 GLUCOSE 149 mg/dL 2016 CHEM 14 3691316 Bicarbonate 26 mmol/L 2016 CHEM 14 4335652 AGAP 10 mmol/L 2016 Review of Systems [...] 4: J0696 05/28/2017 THER/PROPH/DIAG INJ SC/IM CPT-4: 63956 05/19/2017 KETOROLAC TROMETHAMINE INJ CPT-4: J1885 05/19/2017 TRIAMCINOLONE ACET INJ NOS CPT-4: J3301 03/26/2016 TRIAMCINOLONE ACET INJ NOS CPT-4: J3301 06/07/2015 THER/PROPH/DIAG INJ SC/IM CPT-4: 43715 12/07/2014 TRIAMCINOLONE ACET INJ NOS CPT-4: J3301 12/07/2014 Vital Signs Date Vital 03/11/2018 Blood Pressure 1: 142/82 Code: 8480-6 BMI: 32.1 Code: 55617-8 Heart Rate 1: 87 bpm Height: 5'7" SpO2: 97% Weight: 205 lbs 02/17/2018 Blood Pressure 1: 132/76 Code: 8480-6 BMI: 33.5 Code: 38735-6 Heart Rate 1: 92 bpm Height: 5'7" SpO2: 98% Weight: 214 lbs 12/21/2017 Blood Pressure 1: 154/78 Code: 8480-6 BMI: 33.5 Code: 97701-0 Heart Rate 1: 93 bpm Height: 5'7" SpO2: 96% Weight: 214 lbs 11/30/2017 Blood Pressure 1: 148/88 Code: 8480-6 BMI: 33.5 Code: 11058-8 Heart Rate 1: 80 bpm Height: 5'7" SpO2: 97% Temperature: 36.9 (C) / 98.5 (F) Weight: 214 lbs 05/28/2017 Blood Pressure 1: 128/70 Code: 8480-6 BMI: 31.3 Code: 07878-3 Heart Rate 1: 103 bpm Height: 5'7" SpO2: 98% Temperature: 36.7 (C) / 98.1 (F) Weight: 200 lbs 05/19/2017 Blood Pressure 1: 150/72 Code: 8480-6 04/16/2017 Blood Pressure 1: 146/88 Code: 8480-6 BMI: 31.3 Code: 79004-5 Heart Rate 1: 96 bpm Height: 5'7" SpO2: 94% Temperature: 37.2 (C) / 99.0 (F) Weight: 200 lbs 02/10/2017 Blood Pressure 1: 132/72 Code: 8480-6 BMI: 31.3 Code: 87432-8 Heart Rate 1: 99 bpm Height: 5'7" SpO2: 97% Weight: 200 lbs 02/02/2017 Blood Pressure 1: 140/68 Code: 8480-6 BMI: 31.4 Code: 54139-1 Heart Rate 1: 82 bpm Height: 5'7" SpO2: 97% Weight: 200 lbs 8 oz 01/27/2017 Blood Pressure 1: 142/80 Code: 8480-6 BMI: 32.2 Code: 49213-6 Height: 5'7" Temperature: 37.2 (C) / 98.9 (F) Weight: 205 lbs 8 oz 11/07/2016 Blood Pressure 1: 148/82 Code: 8480-6 BMI: 32.7 Code: 14651-6 Heart Rate 1: 106 bpm Height: 5'7" SpO2: 97% Weight: 209 lbs 03/26/2016 Blood Pressure 1: 140/86 Code: 8480-6 Heart Rate 1: 90 bpm Height: SpO2: 97% Weight: 12/13/2015 Blood Pressure 1: 132/72 Code: 8480-6 BMI: 31.2 Code: 57644-5 Heart Rate 1: 84 bpm Height: 5'7" SpO2: 98% Weight: 199 lbs 08/15/2015 Blood Pressure 1: 138/88 Code: 8480-6 BMI: 32.1 Code: 38462-9 Heart Rate 1: 94 bpm Height: 5'7" SpO2: 97% Weight: 205 lbs 06/13/2015 Blood Pressure 1: 188/88 Code: 8480-6 Blood Pressure 1: 146/78 Code: 8480-6 BMI: 32.6 Code: 24306-9 Heart Rate 1: 97 bpm Height: 5'7" SpO2: 98% Weight: 208 lbs 06/07/2015 Blood Pressure 1: 128/82 Code: 8480-6 BMI: 32.4 Code: 72397-6 Heart Rate 1: 80 bpm Height: 5'7" SpO2: 99% Weight: 207 lbs 03/13/2015 Blood Pressure 1: 124/70 Code: 8480-6 BMI: 31.6 Code: 95455-4 Heart Rate 1: 103 bpm Height: 5'7" Respiratory Rate: 18 bpm SpO2: 97% Temperature: 36.6 (C) / 97.8 (F) Weight: 202 lbs 12/07/2014 Blood Pressure 1: 140/80 Code: 8480-6 BMI: 32.3 Code: 57824-8 Heart Rate 1: 97 bpm Height: 5'7" SpO2: 99% Weight: 206 lbs 09/07/2014 Blood Pressure 1: 132/78 Code: 8480-6 BMI: 31.2 Code: 11461-8 Heart Rate 1: 92 bpm Height: 5'7" [...] with shunt placement- 08-11-14- Dr Ruvalcaba in [place] did surgery headache Onset and Resolution ongoing [...] data Encounters Encounter Performer Location Codes Date ([id number]) 30400 EST. PATIENT, LEVEL IV Diagnosis: Type 2 diabetes mellitus with hyperglycemia[ICD10: E11.65] Diagnosis: Mixed hyperlipidemia[ICD10: E78.2] Diagnosis: Essential (primary) hypertension[ICD10: I10] Kaylan Dunham MD, [facility] CPT-4: 90200 03/11/2018 [id number] EST. PATIENT, LEVEL III Diagnosis: Paresthesia of skin[ICD10: R20.2] Aditi Dunham MD, [facility] CPT-4: 74004 02/17/2018 70447 EST. PATIENT, LEVEL IV Diagnosis: Pain in right shoulder[ICD10: M25.511] Diagnosis: Rash and other nonspecific skin eruption[ICD10: R21] Aditi Dunham MD, [facility] CPT-4: 82559 12/21/2017 84350 EST. PATIENT, LEVEL IV Diagnosis: Other acute sinusitis[ICD10: J01.80] Diagnosis: Other allergic rhinitis[ICD10: J30.89] Diagnosis: Localized edema[ICD10: R60.0] Aditi Dunham MD, [facility] CPT-4: 99962 11/30/2017 ([id number]) 95618 EST. PATIENT, LEVEL III Diagnosis: Acute recurrent maxillary sinusitis[ICD10: J01.01] Diagnosis: Cough[ICD10: R05] Tavia Dunham MD, [facility] CPT-4: 36751 05/28/2017 ([id number]) 49051 EST. PATIENT, LEVEL III Diagnosis: Acute laryngopharyngitis[ICD10: J06.0] Diagnosis: Cough[ICD10: R05] Tavia Dunham MD, [facility] CPT-4: 27695 04/16/2017 97072 EST. PATIENT, LEVEL III Diagnosis: Left lower quadrant pain[ICD10: R10.32] Aditi Dunham MD, [facility] CPT-4: 11975 02/10/2017 ([id number]) 46104 EST. PATIENT, LEVEL III Diagnosis: Pain in thoracic spine[ICD10: M54.6] Diagnosis: Other muscle spasm[ICD10: M62.838] Tavia Dunham MD, [facility] CPT- 4: 26261 02/02/2017 ([id number]) 90409 EST. PATIENT, LEVEL IV Diagnosis: Other acute pancreatitis without necrosis or infection[ICD10: K85.80] Diagnosis: Epigastric pain[ICD10: R10.13] Diagnosis: Type 2 diabetes mellitus without complications[ICD10: E11.9] Tavia Dunham MD, [facility] CPT-4: 53858 01/27/2017 [id number] EST. PATIENT, LEVEL IV Diagnosis: Essential (primary) hypertension[ICD10: I10] Diagnosis: Type 1 diabetes mellitus without complications[ICD10: E10.9] Diagnosis: Other specified hypothyroidism[ICD10: E03.8] Diagnosis: Bilateral primary osteoarthritis of hip[ICD10: M16.0] Diagnosis: Actinic keratosis[ICD10: L57.0] Aditi Dunham MD, [facility] CPT-4: 10686 11/07/2016 [id number] EST. PATIENT, LEVEL III Diagnosis: Other acute sinusitis[ICD10: J01.80] Diagnosis: Other allergic rhinitis[ICD10: J30.89] Diagnosis: Cough[ICD10: R05] Aditi Dunham MD, [facility] CPT-4: 54742 03/26/2016 ([id number]) 35645 EST. PATIENT, LEVEL IV Diagnosis: Essential (primary) hypertension[ICD10: I10] Diagnosis: Pure hyperglyceridemia[ICD10: E78.1] Tavia Dunham MD, [facility] CPT- 4: 28345 12/13/2015 ([id number]) 03239 EST. PATIENT, LEVEL III Diagnosis: Essential (primary) hypertension[ICD10: I10] Diagnosis: (Idiopathic) normal pressure hydrocephalus[ICD10: G91.2] Tavia Dunham MD, [facility] CPT-4: 21782 08/15/2015 [id number] EST. PATIENT, LEVEL III Diagnosis: Other acute nonsuppurative otitis media, right ear[ICD10: H65.191] Diagnosis: Acute upper respiratory infection, unspecified[ICD10: J06.9] Aditi Dunham MD, [facility] CPT-4: 82196 06/13/2015 ([id number]) [id number] EST. PATIENT, LEVEL III Diagnosis: Acute recurrent maxillary sinusitis[ICD10: J01.01] Diagnosis: Allergic rhinitis due to pollen[ICD10: J30.1] Kaylan Dunham MD, [facility] CPT-4: 05797 06/07/2015 ([id number]) 01475 EST. PATIENT, LEVEL IV Diagnosis: (Idiopathic) normal pressure hydrocephalus[ICD10: G91.2] Diagnosis: Essential (primary) hypertension[ICD10: I10] Diagnosis: Dizziness and giddiness[ICD10: R42] Diagnosis: Nausea with vomiting, unspecified[ICD10: R11.2] Kaylan Dunham MD, [facility] CPT-4: 64338 03/13/2015 [id number] EST. PATIENT, LEVEL III Diagnosis: Acute sinusitis, unspecified[ICD10: J01.90] Diagnosis: Allergic rhinitis, unspecified[ICD10: J30.9] Tavia Dunham MD, [facility] CPT-4: 25701 12/07/2014 ([id number]) [id number] EST. PATIENT, LEVEL IV Diagnosis: ESSENTIAL HYPERTENSION[ICD9: 401.9] Diagnosis: DIABETES TYPE II[ICD9: 250.00] Diagnosis: NPH (normal pressure hydrocephalus)[ICD9: 331.5] Diagnosis: Hypertriglyceridemia[ICD9: 272.1] Kaylan uDnham MD, [facility] CPT- 4: 15807 09/07/2014 ([id number]) OFFICE/OUTPATIENT VISIT NEW Diagnosis: DIABETES TYPE II[ICD9: 250.00] Diagnosis: ESSENTIAL HYPERTENSION[ICD9: 401.9] Diagnosis: NPH (normal pressure hydrocephalus)[ICD9: 331.5] Diagnosis: Abnormal gait[ICD9: 781.2] Diagnosis: VITAMIN D DEFICIENCY[ICD9: 268.9] Tavia Dunham MD, [facility] CPT- 4: 80042 08/07/2014 Plan of Care Planned Activity Notes Codes Status Date Patient Education: Patient Medication Summary Completed 05/25/2018 Care Plan: A1C [facility] : [id number] Pending 05/25/2018 Referral: Ammon Joiner Patient informed. [...] at home. 03/11/2018 Appointment: Kaylan Melendez WPtel: [facility]0 [phone] (30 min) Complex 03/11/2018 Patient Education: Patient Medication Summary Completed 03/11/2018 Patient Education: Cholesterol Management Completed 03/11/2018 Patient Education: Hypertension Completed 03/11/2018 Care Plan: Referral Order SNOMED-CT : [id number] Pending 03/11/2018 Visit Plan: Parasthesia - ongoing for about a month - will send RX and refer pt for EMG - The pt is to use prn antiinflammatories to manage acute pain. The patient is to call the office if the pain is worsening or does not improve. 02/17/2018 Appointment: Aditi Hamilton WPtel: [facility] (15 min) Moderate 02/17/2018 Patient Education: [...] warmth, discharge. 12/21/2017 Appointment: Aditi Hamilton WPtel: [facility] [place] (15 min) Moderate 12/21/2017 Patient Education: Patient Medication Summary Completed 12/21/2017 Appointment: Tavia Dunham WPtel: [facility] (15 min) Moderate 12/02/2017 Visit Plan: [...] Appointment: Aditi Hamilton WPtel: [facility] [place] (15 min) Moderate 11/30/2017 Patient Education: Patient Medication Summary Completed 11/30/2017 Care Plan: Comp Metabolic Pending 11/30/2017 Care Plan: Cbc With Differential Pending 11/30/2017 Care Plan: %Hba1C LOINC : 86160-1 Pending 11/30/2017 Care Plan: Lipid Pending 11/30/2017 Care Plan: Tsh Pending 11/30/2017 Care Plan: Free T4 Pending 11/30/2017 App[facility]ment: [phone] [place] (15 min) Moderate 11/26/2017 Appointment: Kaylan Melendez WPtel: [phone] [place] (30 min) Complex 08/13/2017 Appointment: Tavia Dunham WPtel: [facility] [place] (15 min) Moderate 08/04/2017 Appointment: Tavia Dunham WPtel: [phone] [facility] [place] (15 min) Moderate 07/20/2017 Visit [...] today 05/28/2017 Appointment: Tavia Dunham WPtel: [phone] [facility] [place] (30 min) Complex 05/28/2017 Patient [...] patient's pharmacy. 04/16/2017 Appointment: Tavia Dunham WPtel: [facility] [place] (15 min) Moderate 04/16/2017 Patient [...] or concerns. 02/10/2017 Appointment: Aditi Hamilton WPtel: [phone] [facility] [place] [place] (15 min) Moderate 02/10/2017 Patient Education: Patient Medication Summary Completed 02/10/2017 Patient Education: Obesity Completed 02/10/2017 Visit Plan: Pain in Thoracic spine with muscle spasm - ibuprofen 600mg three times daily x 3 days, rx for cyclobenzaprine. 02/02/2017 Appointment: [phone] [place] (15 min) Moderate 02/02/2017 Patient Education: Patient [...] today. 01/27/2017 Appointment: [phone] [place] (15 min) Moderate 01/27/2017 Patient Education: Patient [...] symptoms. 11/07/2016 Appointment: Aditi Hamilton WPtel: [phone] [facility] (30 min) Complex 11/07/2016 Patient Education: Patient [...] allergy spray. 03/26/2016 Appointment: Aditi Hamilton WPtel: [phone] [facility] (30 min) Complex 03/26/2016 Patient Education: [...] to medications. 12/13/2015 Appointment: Tavia Dunham WPtel: [address] [place], [place] [address] (15 min) Moderate 12/13/2015 Patient Education: Patient [...] on supplement. 08/07/2014 Appointment: Tavia Dunham WPtel: [address] [place] [address] [place] (S) New Patient 08/07/2014 Patient Education: [...]
--- OUTSIDE RECORDS SUMMARY | 2018-10-08 11:25 | XMS REPORT | CCD ---
Author Author [facility] Organization [facility] Address [address] [place] [address] Phone Care Team Providers Care Party Plan Sales Host/Hostess Name Role Phone PP Unavailable CCM Unavailable Summary Purpose Interface Exchange Insurance Providers Payer name Policy type / Coverage type Covered democrat ID Effective Begin Date Effective End Date Blue Cross Blue [facility] Blue Cross/Blue [facility] [id number] Unknown Family history Mother Diagnosis Age At Onset Cancer Unknown Arthritis Unknown Depression Unknown Hyperlipidemia Unknown Diabetes mellitus Type 2 Unknown Social History Social History Element Codes Description Effective Dates Marital status Unknown Yinka 08/07/2014 Number of children Unknown 0 08/07/2014 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/[address]: 720751848 Never smoker 08/07/[address]: 667310152 Never drinks alcohol 08/07/2014 Allergies, Adverse Reactions, Alerts Substance Reaction Codes Entered Date Inactivated Date Status CODEINE emesis RxNorm: 2670 08/07/2014 No Inactive Date Active Past Medical History Illness Codes Condition Status Onset Date Resolved Date Essential (primary) hypertension ICD-9: 401.9 ICD-10: I10 Active 08/06/2014 Unknown Mixed hyperlipidemia ICD- 9: 272.2 ICD-10: E78.2 Active 03/11/2018 Unknown Type 2 diabetes mellitus with hyperglycemia ICD-9: 250.00 ICD-10: E11.65 Active 03/11/2018 Unknown Paresthesia of skin ICD- [...] ICD- 9: 272.2 ICD-10: E78.2 03/11/2018 Active Type 2 diabetes mellitus with hyperglycemia ICD-9: 250.00 ICD-10: E11.65 03/11/2018 Active Paresthesia of skin ICD- 9: [...] Fill Instructions hydrochlorothiazide 25 mg tablet RxNorm: 462478 TAKE 1 TABLET BY MOUTH ONCE DAILY 03/23/2018 No Stop Date Active Levemir FlexTouch U-100 Insulin 100 unit/mL (3 mL) subcutaneous pen RxNorm: 084341 30 Unit(s) SQ QAM and 25 Units SQ QPM 03/18/2018 07/15/2018 Active Levemir FlexTouch U-100 Insulin 100 unit/mL (3 mL) subcutaneous pen RxNorm: 610463 Unit(s) 03/11/2018 03/17/2018 Inactive 30 q am and 25 units q PM pravastatin 40 mg tablet RxNorm: 010211 1 Tablet(s) PO daily take with coenzyme q 10 daily 03/03/2018 02/25/2019 Active Levemir FlexTouch U-100 Insulin 100 unit/mL (3 mL) subcutaneous pen RxNorm: 090456 Unit(s) INJECT 25 UNITS SUBCUTANEOUSLY TWICE DAILY 03/03/2018 03/10/2018 Inactive pravastatin 10 mg tablet RxNorm: 958661 1 Tablet(s) PO daily take with coenzyme q 10 daily 02/26/2018 03/02/2018 Inactive prednisone 20 mg tablet RxNorm: 912536 2 Tablet(s) PO daily 02/17/2018 02/21/2018 Inactive levothyroxine 125 mcg tablet RxNorm: 415260 TAKE 1 TABLET BY MOUTH ONCE DAILY 01/11/2018 No Stop Date Active cyclobenzaprine 5 mg tablet RxNorm: 591533 1 Tablet(s) PO TID as needed 12/28/2017 01/11/2018 Inactive Zorvolex 35 mg capsule RxNorm: 5411158 1 Capsule(s) PO TID as needed 12/25/2017 05/23/2018 Active Levemir FlexTouch U-100 Insulin 100 unit/mL (3 mL) subcutaneous pen RxNorm: 960272 INJECT 2O UNITS SUBCUTANEOUSLY TWICE DAILY 12/21/2017 03/02/2018 Inactive cyclobenzaprine 5 mg tablet RxNorm: 227035 1 Tablet(s) PO TID as needed 12/21/2017 12/25/2017 Inactive doxycycline hyclate 100 mg capsule RxNorm: 7096066 1 Capsule(s) PO BID 12/21/2017 12/30/2017 Inactive venlafaxine ER 150 mg capsule,extended release 24 hr RxNorm: 173370 TAKE 1 CAPSULE BY MOUTH ONCE DAILY 12/10/2017 No Stop Date Active Singulair 10 mg tablet RxNorm: 030931 1 Tablet(s) PO daily 12/03/2017 12/02/2017 Inactive Singulair 10 mg tablet RxNorm: 254609 1 Tablet(s) PO daily 12/03/2017 01/01/2018 Inactive Zithromax Z-Kulwant 250 mg tablet RxNorm: 245331 1 Tablet(s) PO UD 12/03/2017 03/10/2018 Inactive z pack as directed Kenalog 40 mg/mL suspension for injection RxNorm: 4356207 1 Milliliter(s) Inj 11/30/2017 11/30/2017 Inactive prednisone 20 mg tablet RxNorm: 929055 2 Tablet(s) PO daily 11/30/2017 12/04/2017 Inactive Augmentin 875 mg-125 mg tablet RxNorm: 904701 1 Tablet(s) PO BID 11/27/2017 11/26/2017 Inactive Augmentin 875 mg-125 mg tablet RxNorm: 090163 1 Tablet(s) PO BID 11/27/2017 12/03/2017 Inactive Zorvolex 35 mg capsule RxNorm: 5546806 1 Capsule(s) PO TID as needed 11/09/2017 12/24/2017 Inactive hydrochlorothiazide 25 mg tablet RxNorm: 580644 1 Tablet(s) PO daily 10/22/2017 02/18/2018 Inactive enalapril maleate 5 mg tablet RxNorm: 654067 1 Tablet(s) PO daily TAKE ONE TABLET BY MOUTH ONCE DAILY 08/21/2017 02/16/2018 Inactive Levemir FlexTouch U-100 Insulin 100 unit/mL (3 mL) subcutaneous pen RxNorm: 421586 20 Unit(s) SQ BID 07/30/2017 12/20/2017 Inactive levothyroxine 125 mcg tablet RxNorm: 403887 TAKE ONE TABLET BY MOUTH ONCE DAILY 06/29/2017 01/10/2018 Inactive venlafaxine ER 150 mg capsule,extended release 24 hr RxNorm: 716249 1 Capsule(s) PO daily TAKE ONE CAPSULE BY MOUTH ONCE DAILY 06/08/2017 12/04/2017 Inactive prednisone 20 mg tablet RxNorm: 861135 1 Tablet(s) PO daily 06/02/2017 06/06/2017 Inactive prednisone 20 mg tablet RxNorm: 564039 1 Tablet(s) PO daily 06/01/2017 06/05/2017 Inactive Kenalog 40 mg/mL suspension for injection RxNorm: 5160019 1 Milliliter(s) Inj 05/28/2017 05/28/2017 Inactive cefdinir 300 mg capsule RxNorm: 162532 1 Capsule(s) PO BID 05/28/2017 06/03/2017 Inactive ceftriaxone 500 mg solution for injection RxNorm: 2765063 1 Inj 05/28/2017 05/28/2017 Inactive prednisone 20 mg tablet RxNorm: 145685 1 Tablet(s) PO daily 05/28/2017 05/31/2017 Inactive Keflex 500 mg capsule RxNorm: 948104 1 Capsule(s) PO TID 05/26/2017 06/01/2017 Inactive Keflex 500 mg capsule RxNorm: 314057 1 Capsule(s) PO TID 05/26/2017 05/25/2017 Inactive hydrocodone 10 mg-chlorpheniramine 8 mg/5 mL oral susp extend.rel 12hr RxNorm: 6894949 5-10 Milliliter(s) PO TID as needed 04/16/2017 No Stop Date Active Tussionex Pennkinetic ER 10 mg-8 mg/5 mL suspension,extended release RxNorm: 7935269 5 Milliliter(s) PO BID 04/16/2017 04/27/2017 Inactive Zithromax Z-Kulwant 250 mg tablet RxNorm: 331926 1 Tablet(s) PO UD 03/25/2017 04/15/2017 Inactive z pack as directed enalapril maleate 5 mg tablet RxNorm: 328703 TAKE ONE TABLET BY MOUTH ONCE DAILY 02/26/2017 08/20/2017 Inactive Levemir FlexTouch 100 unit/mL (3 mL) subcutaneous insulin pen RxNorm: 041250 20 Unit(s) SQ BID 02/10/2017 07/11/2017 Inactive Zorvolex 35 mg capsule RxNorm: 6391998 1 Capsule(s) PO TID as needed 02/10/2017 11/08/2017 Inactive valacyclovir 1 gram tablet RxNorm: 967323 1 Tablet(s) PO TID 02/10/2017 02/16/2017 Inactive Levemir FlexTouch 100 unit/mL (3 mL) subcutaneous insulin pen RxNorm: 673533 20 Unit(s) SQ BID 02/04/2017 02/09/2017 Inactive cyclobenzaprine 5 mg tablet RxNorm: 906718 1 Tablet(s) PO qhs x 3 nights and TID as needed muscle spasms 02/02/2017 No Stop Date Active levothyroxine 125 mcg tablet RxNorm: 657845 TAKE ONE TABLET BY MOUTH ONCE DAILY 12/08/2016 06/05/2017 Inactive venlafaxine ER 150 mg capsule,extended release 24 hr RxNorm: 225364 TAKE ONE CAPSULE BY MOUTH ONCE DAILY 12/01/2016 05/29/2017 Inactive Zorvolex 35 mg capsule RxNorm: 0548803 1 Capsule(s) PO TID as needed do not take meloxicam at the same time 11/07/2016 No Stop Date Active enalapril maleate 5 mg tablet RxNorm: 908471 TAKE ONE TABLET BY MOUTH ONCE DAILY 10/31/2016 12/29/2016 Inactive meloxicam 15 mg tablet RxNorm: 136913 TAKE ONE TABLET BY MOUTH ONCE DAILY 10/30/2016 03/10/2018 Inactive meloxicam 15 mg tablet RxNorm: 800101 TAKE ONE TABLET BY MOUTH ONCE DAILY 10/24/2016 10/29/2016 Inactive enalapril maleate 5 mg tablet RxNorm: 890601 TAKE ONE TABLET BY MOUTH ONCE DAILY 10/24/2016 10/30/2016 Inactive venlafaxine ER 150 mg capsule,extended release 24 hr RxNorm: 292137 TAKE ONE CAPSULE BY MOUTH ONCE DAILY 06/16/2016 11/12/2016 Inactive meloxicam 15 mg tablet RxNorm: 142742 TAKE ONE TABLET BY MOUTH ONCE DAILY 06/09/2016 10/06/2016 Inactive enalapril maleate 5 mg tablet RxNorm: 034827 TAKE ONE TABLET BY MOUTH ONCE DAILY 06/02/2016 09/29/2016 Inactive Zithromax Z-Kulwant 250 mg tablet RxNorm: 502712 1 Tablet(s) PO UD 05/21/2016 06/15/2016 Inactive levothyroxine 125 mcg tablet RxNorm: 043879 Tablet(s) TAKE ONE TABLET BY MOUTH ONCE DAILY 04/15/2016 10/11/2016 Inactive Levaquin 500 mg tablet RxNorm: 355987 1 Tablet(s) PO daily 04/03/2016 04/09/2016 Inactive Levaquin 500 mg tablet RxNorm: 571092 1 Tablet(s) PO daily 04/03/2016 04/02/2016 Inactive prednisone 20 mg tablet RxNorm: 137645 2 Tablet(s) PO daily 03/28/2016 04/01/2016 Inactive Zithromax Z-Kulwant 250 mg tablet RxNorm: 930223 1 Tablet(s) PO UD 03/26/2016 03/30/2016 Inactive zpack Kenalog 40 mg/mL suspension for injection RxNorm: 8181594 Milliliter(s) Inj 03/26/2016 03/26/2016 Inactive Zofran ODT 4 mg disintegrating tablet RxNorm: 734040 DISSOLVE ONE TABLET IN MOUTH EVERY 6 HOURS NEEDED 02/22/2016 02/29/2016 Inactive venlafaxine ER 150 mg capsule,extended release 24 hr RxNorm: 616195 TAKE ONE CAPSULE BY MOUTH ONCE DAILY 02/18/2016 06/15/2016 Inactive meloxicam 15 mg tablet RxNorm: 473402 TAKE ONE TABLET BY MOUTH ONCE DAILY 02/04/2016 06/02/2016 Inactive aspirin 81 mg chewable tablet RxNorm: 566315 1 Tablet(s) PO daily 12/13/2015 12/06/2016 Inactive biotin 2,500 mcg tablet RxNorm: 253585 1 Tablet(s) PO daily 12/13/2015 09/07/2016 Inactive hydrochlorothiazide 25 mg tablet RxNorm: 129592 1 Tablet(s) PO daily 12/13/2015 04/10/2016 Inactive enalapril maleate 5 mg tablet RxNorm: 728013 TAKE ONE TABLET BY MOUTH ONCE DAILY 11/22/2015 05/19/2016 Inactive venlafaxine ER 150 mg capsule,extended release 24 hr RxNorm: 283932 TAKE ONE CAPSULE BY MOUTH ONCE DAILY 11/14/2015 02/11/2016 Inactive levothyroxine 125 mcg tablet RxNorm: 801743 Tablet(s) TAKE ONE TABLET BY MOUTH ONCE DAILY 11/06/2015 04/14/2016 Inactive levothyroxine 125 mcg tablet RxNorm: 509697 Tablet(s) TAKE ONE TABLET BY MOUTH ONCE DAILY 08/06/2015 11/03/2015 Inactive meclizine 25 mg tablet RxNorm: 132241 1/2-1 Tablet(s) PO Q6 as needed 07/16/2015 No Stop Date Active Flonase Allergy Relief 50 mcg/actuation nasal spray,suspension RxNorm: 1 [place] NASAL daily 06/13/2015 No Stop Date Active prednisone 20 mg tablet RxNorm: 517332 2 Tablet(s) PO daily 06/13/2015 06/17/2015 Inactive Augmentin 875 mg-125 mg tablet RxNorm: 336137 1 Tablet(s) PO BID 06/13/2015 06/19/2015 Inactive Zithromax Z-Kulwant 250 mg tablet RxNorm: 752909 1 Tablet(s) PO UD 06/07/2015 06/11/2015 Inactive zpack Kenalog 40 mg/mL suspension for injection RxNorm: 9939840 Milliliter(s) Inj 06/07/2015 06/07/2015 Inactive venlafaxine ER 150 mg capsule,extended release 24 hr RxNorm: 545007 TAKE ONE CAPSULE BY MOUTH ONCE DAILY 05/14/2015 11/09/2015 Inactive Augmentin 500 mg-125 mg tablet RxNorm: 958995 1 Tablet(s) PO TID 04/25/2015 05/04/2015 Inactive Augmentin 500 mg-125 mg tablet RxNorm: 821145 1 Tablet(s) PO TID 04/25/2015 04/24/2015 Inactive pravastatin 10 mg tablet RxNorm: 704364 1 Tablet(s) PO daily take with coenzyme q 10 daily 03/21/2015 03/20/2015 Inactive DC crestor pravastatin 10 mg tablet RxNorm: 945515 1 Tablet(s) PO daily take with coenzyme q 10 daily 03/21/2015 07/18/2015 Inactive DC crestor Zofran ODT 4 mg disintegrating tablet RxNorm: 172786 1 Tablet(s) PO Q6 PRN 03/13/2015 02/21/2016 Inactive levothyroxine 125 mcg tablet RxNorm: 059113 TAKE ONE TABLET BY MOUTH ONCE DAILY 02/13/2015 08/05/2015 Inactive meloxicam 15 mg tablet RxNorm: 588981 1 Tablet(s) PO daily 01/28/2015 01/22/2016 Inactive Zofran 4 mg tablet RxNorm: 649463 1 Tablet(s) PO Q6-8H as needed nausea 01/24/2015 No Stop Date Active Trulicity 1.5 mg/0.5 mL subcutaneous pen injector RxNorm: 9353099 0.75mg Milliliter(s) SQ QW 01/10/2015 03/10/2018 Inactive venlafaxine ER 150 mg capsule,extended release 24 hr RxNorm: 262769 1 Capsule(s) PO daily 01/10/2015 05/09/2015 Inactive enalapril maleate 5 mg tablet RxNorm: 562441 1 Tablet(s) PO daily 01/04/2015 07/02/2015 Inactive amoxicillin 500 mg tablet RxNorm: 227356 1 Tablet(s) PO BID 12/07/2014 12/06/2014 Inactive Probiotic & Acidophilus 300 million cell-250 mg capsule RxNorm: 1 Capsule(s) PO BID 12/07/2014 12/16/2014 Inactive amoxicillin 500 mg tablet RxNorm: 641736 1 Tablet(s) PO BID 12/07/2014 12/16/2014 Inactive Kenalog 40 mg/mL suspension for injection RxNorm: 5979948 1 Milliliter(s) Inj 12/07/2014 12/07/2014 Inactive meloxicam 15 mg tablet RxNorm: 981229 1 Tablet(s) PO daily 10/24/2014 10/23/2014 Inactive meloxicam 15 mg tablet RxNorm: 801315 1 Tablet(s) PO daily 10/24/2014 01/27/2015 Inactive azithromycin 500 mg tablet RxNorm: 866378 1 Tablet(s) PO daily 10/11/2014 10/15/2014 Inactive azithromycin 500 mg tablet RxNorm: 358151 1 Tablet(s) PO daily 10/11/2014 10/10/2014 Inactive levothyroxine 125 mcg tablet RxNorm: 365431 1 Tablet(s) PO daily 10/06/2014 02/02/2015 Inactive enalapril maleate 5 mg tablet RxNorm: 517914 1 Tablet(s) PO daily 08/29/2014 12/26/2014 Inactive enalapril maleate 5 mg tablet RxNorm: 114584 1 Tablet(s) PO daily 08/25/2014 08/28/2014 Inactive Medroxy oral RxNorm: 6756776 oral No Start Date Active Vitamin D3 5,000 unit tablet RxNorm: 263075 1 Tablet(s) PO daily No Start Date Active fluconazole 200 mg tablet RxNorm: 694670 Tablet(s) PO No Start Date Active estradiol 2 mg tablet RxNorm: 633905 1 Tablet(s) PO daily No Start Date Active fenofibrate nanocrystallized 145 mg tablet RxNorm: 212972 1 Tablet(s) PO daily No Start Date Active hydrocodone 5 mg-acetaminophen 325 mg tablet RxNorm: 318692 1-2 Tablet(s) PO Q4-6H as needed No Start Date Active enalapril maleate 5 mg tablet RxNorm: 352286 1 Tablet(s) PO daily No Start Date 08/24/2014 Inactive glimepiride 4 mg tablet RxNorm: 721488 1 Tablet(s) PO daily No Start Date 01/26/2017 Inactive meclizine 25 mg tablet RxNorm: 131171 1/2-1 Tablet(s) PO Q6 as needed No Start Date 07/15/2015 Inactive Trulicity 0.75 mg/0.5 mL subcutaneous pen injector RxNorm: 8169726 0.75mg Milliliter(s) SQ QW No Start Date 01/09/2015 Inactive metformin 1,000 mg tablet RxNorm: 531001 Tablet(s) PO BID No Start Date 01/26/2017 Inactive venlafaxine ER 150 mg capsule,extended release 24 hr RxNorm: 309453 1 Capsule(s) PO daily No Start Date 01/09/2015 Inactive meloxicam 15 mg tablet RxNorm: 268815 1 Tablet(s) PO daily No Start Date 10/23/2014 Inactive levothyroxine 125 mcg tablet RxNorm: 774553 1 Tablet(s) PO daily No Start Date 10/05/2014 Inactive Levemir FlexTouch 100 unit/mL (3 mL) subcutaneous insulin pen RxNorm: 321253 15 Unit(s) SQ daily No Start Date 02/03/2017 Inactive Zithromax Z-Kulwant 250 mg tablet RxNorm: 125013 1 Tablet(s) PO UD No Start Date 05/20/2016 Inactive Fish Oil 1,000 mg capsule RxNorm: 1 Capsule(s) PO BID No Start Date 11/04/2016 Inactive Zofran 4 mg tablet RxNorm: 603761 1 Tablet(s) PO Q6-8H as needed nausea No Start Date 01/23/2015 Inactive Crestor 10 mg tablet RxNorm: 996806 1 Tablet(s) PO daily No Start Date 03/20/2015 Inactive Medication Administered Medication Codes Instructions Start Date Status Kenalog 40 mg/mL suspension for injection RxNorm: 5775126 1Milliliter 11/30/2017 No longer Active Kenalog 40 mg/mL suspension for injection RxNorm: 8330852 1Milliliter 05/28/2017 No longer Active ceftriaxone 500 mg solution for injection RxNorm: 9564551 1 05/28/2017 No longer Active Kenalog 40 mg/mL suspension for injection RxNorm: 0763783 Milliliter 03/26/2016 No longer Active Kenalog 40 mg/mL suspension for injection RxNorm: 7438122 Milliliter 06/07/2015 No longer Active Kenalog 40 mg/mL suspension for injection RxNorm: 9007746 1Milliliter 12/07/2014 No longer Active Immunizations Vaccine Codes Date Status Influenza CVX: 141 11/26/2017 completed Assessments Condition Codes Effective Dates Essential (primary) hypertension ICD-10: I10 ICD-9: 401.9 03/11/2018 Type 2 diabetes mellitus with hyperglycemia ICD-10: E11.65 ICD-9: 250.00 03/11/2018 Mixed hyperlipidemia ICD-10: E78.2 ICD-9: 272.2 [...] Item Item Code Result Date CHEM 14 [id number] AST TNP:Lab Request 01/27/2017 CHEM 14 [id number] ALT TNP:Lab Request 01/27/2017 CHEM 14 [id number] BUN TNP:Lab Request 01/27/2017 CHEM 14 [id number] ALBUMIN TNP:Lab Request 01/27/2017 CHEM 14 [id number] CHLORIDE TNP:Lab Request 01/27/2017 CHEM 14 [id number] Bili Total TNP:Lab Request 01/27/2017 CHEM 14 [id number] ALK PHOS TNP:Lab Request 01/27/2017 CHEM 14 [id number] SODIUM TNP:Lab Request 01/27/2017 CHEM 14 [id number] CREATININE TNP:Lab Request 01/27/2017 CHEM 14 [id number] CALCIUM TNP:Lab Request 01/27/2017 CHEM 14 [id number] POTASSIUM TNP:Lab Request 01/27/2017 CHEM 14 [id number] TOTAL PROTEIN TNP:Lab Request 01/27/2017 CHEM 14 [id number] GLUCOSE TNP:Lab Request 01/27/2017 CHEM 14 [id number] Bicarbonate TNP:Lab Request 01/27/2017 CHEM 14 [id number] AGAP TNP:Lab Request 01/27/2017 AMYLASE [id number] Amylase Lvl TNP:Lab Request 01/27/2017 CHEM 14 [id number] AST 19 U/L 2016 CHEM 14 [id number] ALT 26 U/L 2016 CHEM 14 [id number] BUN 20 mg/dL 2016 CHEM 14 [id number] ALBUMIN 4.1 g/dL 2016 CHEM 14 [id number] CHLORIDE 99 mmol/L 2016 CHEM 14 8013759 Bili Total 0.3 mg/dL 2016 CHEM 14 [id number] ALK PHOS 55 U/L 2016 CHEM 14 0494299 SODIUM 135 mmol/L 2016 CHEM 14 [id number] CREATININE 0.87 mg/dL 2016 CHEM 14 5032650 CALCIUM 9.3 mg/dL 2016 CHEM 14 [id number] POTASSIUM 4.0 mmol/L 2016 CHEM 14 1194862 TOTAL PROTEIN 7.0 g/dL 2016 CHEM 14 [id number] GLUCOSE 149 mg/dL 2016 CHEM 14 0522296 Bicarbonate 26 mmol/L 2016 CHEM 14 2114959 AGAP 10 mmol/L 2016 CBC 2375808 WBC 8.1 10e9/L 2016 CBC 8804433 RBC 4.41 10e12/L 2016 CBC 5214309 HEMOGLOBIN 13.2 g/dL 2016 CBC 2654824 HEMATOCRIT 39.6 % 2016 CBC 2663497 MCV 89.8 fL 2016 CBC 8306646 MCH 29.9 pg 2016 CBC 4966690 MCHC 33.3 g/dL 2016 CBC 3632974 PLATELET COUNT 298 10e9/L 2016 CBC 6037450 Mean Plt Volume 10.5 fL 2016 CBC 3903424 Neut Auto 61.3 % 2016 CBC 1389563 Lymph Auto 26.3 % 2016 CBC 3790923 [place] Auto 7.7 % 2016 CBC 4913233 RDW 13.6 % 2016 CBC 1441509 Eos Auto 4.2 % 2016 CBC 5366569 Baso Auto 0.5 % 2016 CBC 9827196 Neutrophil Abs 4.97 10e9/L 2016 CBC 6530717 Lymphocyte Abs 2.13 10e9/L 2016 CBC 9143104 Monocyte Abs 0.62 10e9/L 2016 CBC 9630238 Eosinophil Abs 0.34 10e9/L 2016 CBC 5505013 RDW-SD 44.1 fL 2016 CBC 5552991 Basophil Abs 0.04 10e9/L 2016 GFR CALC 6818762 GFR Non Afr Amr >60 mL/min 2016 GFR CALC 6812881 GFR Afr Amr >60 mL/min 2016 MEAN GLUC 4827473 Calc Mean Gluc 163 mg/dL 2016 FREE T4 2622435 T4 Free 1.60 ng/dL 2016 TSH 6654313 TSH 1.340 uIU/mL 2016 A1C HPLC 1706136 Hgb A1c 83671-2 7.3 % 2016 LIPID GRP CHOLESTEROL 273 mg/dL 2016 LIPID GRP Triglyceride 583 mg/dL 2016 LIPID GRP HDL CHOLESTEROL 48 mg/dL 2016 LIPID GRP Chol/HDL Ratio 5.69 ratio 2016 LIPID GRP NON-HDL Chol 225 mg/dL 2016 LIPID GRP LDL Cholesterol N/A Trig >400 2016 Review of Systems System Result Effective [...] 4: J0696 05/28/2017 THER/PROPH/DIAG INJ SC/IM CPT-4: 56906 05/19/2017 KETOROLAC TROMETHAMINE INJ CPT-4: J1885 05/19/2017 TRIAMCINOLONE ACET INJ NOS CPT-4: J3301 03/26/2016 TRIAMCINOLONE ACET INJ NOS CPT-4: J3301 06/07/2015 THER/PROPH/DIAG INJ SC/IM CPT-4: 85474 12/07/2014 TRIAMCINOLONE ACET INJ NOS CPT-4: J3301 12/07/2014 Vital Signs Date Vital 03/11/2018 Blood Pressure 1: 142/82 Code: 8480-6 BMI: 32.1 Code: 45418-2 Heart Rate 1: 87 bpm Height: 5'7" SpO2: 97% Weight: 205 lbs 02/17/2018 Blood Pressure 1: 132/76 Code: 8480-6 BMI: 33.5 Code: 00162-4 Heart Rate 1: 92 bpm Height: 5'7" SpO2: 98% Weight: 214 lbs 12/21/2017 Blood Pressure 1: 154/78 Code: 8480-6 BMI: 33.5 Code: 11505-6 Heart Rate 1: 93 bpm Height: 5'7" SpO2: 96% Weight: 214 lbs 11/30/2017 Blood Pressure 1: 148/88 Code: 8480-6 BMI: 33.5 Code: 72515-8 Heart Rate 1: 80 bpm Height: 5'7" SpO2: 97% Temperature: 36.9 (C) / 98.5 (F) Weight: 214 lbs 05/28/2017 Blood Pressure 1: 128/70 Code: 8480-6 BMI: 31.3 Code: 96265-5 Heart Rate 1: 103 bpm Height: 5'7" SpO2: 98% Temperature: 36.7 (C) / 98.1 (F) Weight: 200 lbs 05/19/2017 Blood Pressure 1: 150/72 Code: 8480-6 04/16/2017 Blood Pressure 1: 146/88 Code: 8480-6 BMI: 31.3 Code: 77184-1 Heart Rate 1: 96 bpm Height: 5'7" SpO2: 94% Temperature: 37.2 (C) / 99.0 (F) Weight: 200 lbs 02/10/2017 Blood Pressure 1: 132/72 Code: 8480-6 BMI: 31.3 Code: 18865-9 Heart Rate 1: 99 bpm Height: 5'7" SpO2: 97% Weight: 200 lbs 02/02/2017 Blood Pressure 1: 140/68 Code: 8480-6 BMI: 31.4 Code: 20010-5 Heart Rate 1: 82 bpm Height: 5'7" SpO2: 97% Weight: 200 lbs 8 oz 01/27/2017 Blood Pressure 1: 142/80 Code: 8480-6 BMI: 32.2 Code: 97802-8 Height: 5'7" Temperature: 37.2 (C) / 98.9 (F) Weight: 205 lbs 8 oz 11/07/2016 Blood Pressure 1: 148/82 Code: 8480-6 BMI: 32.7 Code: 81139-0 Heart Rate 1: 106 bpm Height: 5'7" SpO2: 97% Weight: 209 lbs 03/26/2016 Blood Pressure 1: 140/86 Code: 8480-6 Heart Rate 1: 90 bpm Height: SpO2: 97% Weight: 12/13/2015 Blood Pressure 1: 132/72 Code: 8480-6 BMI: 31.2 Code: 04727-5 Heart Rate 1: 84 bpm Height: 5'7" SpO2: 98% Weight: 199 lbs 08/15/2015 Blood Pressure 1: 138/88 Code: 8480-6 BMI: 32.1 Code: 62436-0 Heart Rate 1: 94 bpm Height: 5'7" SpO2: 97% Weight: 205 lbs 06/13/2015 Blood Pressure 1: 188/88 Code: 8480-6 Blood Pressure 1: 146/78 Code: 8480-6 BMI: 32.6 Code: 77262-4 Heart Rate 1: 97 bpm Height: 5'7" SpO2: 98% Weight: 208 lbs 06/07/2015 Blood Pressure 1: 128/82 Code: 8480-6 BMI: 32.4 Code: 27111-0 Heart Rate 1: 80 bpm Height: 5'7" SpO2: 99% Weight: 207 lbs 03/13/2015 Blood Pressure 1: 124/70 Code: 8480-6 BMI: 31.6 Code: 66873-7 Heart Rate 1: 103 bpm Height: 5'7" Respiratory Rate: 18 bpm SpO2: 97% Temperature: 36.6 (C) / 97.8 (F) Weight: 202 lbs 12/07/2014 Blood Pressure 1: 140/80 Code: 8480-6 BMI: 32.3 Code: 13692-5 Heart Rate 1: 97 bpm Height: 5'7" SpO2: 99% Weight: 206 lbs 09/07/2014 Blood Pressure 1: 132/78 Code: 8480-6 BMI: 31.2 Code: 09186-4 Heart Rate 1: 92 bpm Height: 5'7" [...] with shunt placement- 08-11-14- Dr Ruvalcaba in [place] did surgery headache Onset and Resolution ongoing [...] data Encounters Encounter Performer Location Codes Date ([id number]) [id number] EST. PATIENT, LEVEL IV Diagnosis: Type 2 diabetes mellitus with hyperglycemia[ICD10: E11.65] Diagnosis: Mixed hyperlipidemia[ICD10: E78.2] Diagnosis: Essential (primary) hypertension[ICD10: I10] Kaylan Dunham MD, [facility] CPT-4: 21073 03/11/2018 [id number] EST. PATIENT, LEVEL III Diagnosis: Paresthesia of skin[ICD10: R20.2] Aditi Dunham MD, [facility] CPT-4: 06995 02/17/2018 [id number] EST. PATIENT, LEVEL IV Diagnosis: Pain in right shoulder[ICD10: M25.511] Diagnosis: Rash and other nonspecific skin eruption[ICD10: R21] Aditi Dunham MD, [facility] CPT-4: 52953 12/21/2017 [id number] EST. PATIENT, LEVEL IV Diagnosis: Other acute sinusitis[ICD10: J01.80] Diagnosis: Other allergic rhinitis[ICD10: J30.89] Diagnosis: Localized edema[ICD10: R60.0] Aditi Dunham MD, [facility] CPT-4: 59198 11/30/2017 ([id number]) 42722 EST. PATIENT, LEVEL III Diagnosis: Acute recurrent maxillary sinusitis[ICD10: J01.01] Diagnosis: Cough[ICD10: R05] Tavia Dunham MD, [facility] CPT-4: 81785 05/28/2017 ([id number]) [id number] EST. PATIENT, LEVEL III Diagnosis: Acute laryngopharyngitis[ICD10: J06.0] Diagnosis: Cough[ICD10: R05] Tavia Dunham MD, [facility] CPT-4: 42870 04/16/2017 [id number] EST. PATIENT, LEVEL III Diagnosis: Left lower quadrant pain[ICD10: R10.32] Aditi Dunham MD, [facility] CPT-4: 53637 02/10/2017 ([id number]) 39672 EST. PATIENT, LEVEL III Diagnosis: Pain in thoracic spine[ICD10: M54.6] Diagnosis: Other muscle spasm[ICD10: M62.838] Tavia Dunham MD, [facility] CPT- 4: 71492 02/02/2017 ([id number]) 97256 EST. PATIENT, LEVEL IV Diagnosis: Other acute pancreatitis without necrosis or infection[ICD10: K85.80] Diagnosis: Epigastric pain[ICD10: R10.13] Diagnosis: Type 2 diabetes mellitus without complications[ICD10: E11.9] Tavia Dunham MD, [facility] CPT-4: 60809 01/27/2017 [id number] EST. PATIENT, LEVEL IV Diagnosis: Essential (primary) hypertension[ICD10: I10] Diagnosis: Type 1 diabetes mellitus without complications[ICD10: E10.9] Diagnosis: Other specified hypothyroidism[ICD10: E03.8] Diagnosis: Bilateral primary osteoarthritis of hip[ICD10: M16.0] Diagnosis: Actinic keratosis[ICD10: L57.0] Aditi Dunham MD, [facility] CPT-4: 38451 11/07/2016 [id number] EST. PATIENT, LEVEL III Diagnosis: Other acute sinusitis[ICD10: J01.80] Diagnosis: Other allergic rhinitis[ICD10: J30.89] Diagnosis: Cough[ICD10: R05] Aditi Dunham MD, [facility] CPT-4: 29900 03/26/2016 ([id number]) [id number] EST. PATIENT, LEVEL IV Diagnosis: Essential (primary) hypertension[ICD10: I10] Diagnosis: Pure hyperglyceridemia[ICD10: E78.1] Tavia Dunham MD, [facility] CPT- 4: 32711 12/13/2015 ([id number]) 87551 EST. PATIENT, LEVEL III Diagnosis: Essential (primary) hypertension[ICD10: I10] Diagnosis: (Idiopathic) normal pressure hydrocephalus[ICD10: G91.2] Tavia Dunham MD, [facility] CPT-4: 48424 08/15/2015 21502 EST. PATIENT, LEVEL III Diagnosis: Other acute nonsuppurative otitis media, right ear[ICD10: H65.191] Diagnosis: Acute upper respiratory infection, unspecified[ICD10: J06.9] Aditi Dunham MD, [facility] CPT-4: 19656 06/13/2015 ([id number]) 77680 EST. PATIENT, LEVEL III Diagnosis: Acute recurrent maxillary sinusitis[ICD10: J01.01] Diagnosis: Allergic rhinitis due to pollen[ICD10: J30.1] Kaylan Dunham MD, [facility] CPT-4: 64406 06/07/2015 ([id number]) 81699 EST. PATIENT, LEVEL IV Diagnosis: (Idiopathic) normal pressure hydrocephalus[ICD10: G91.2] Diagnosis: Essential (primary) hypertension[ICD10: I10] Diagnosis: Dizziness and giddiness[ICD10: R42] Diagnosis: Nausea with vomiting, unspecified[ICD10: R11.2] Kaylan Dunham MD, [facility] CPT-4: 63138 03/13/2015 06282 EST. PATIENT, LEVEL III Diagnosis: Acute sinusitis, unspecified[ICD10: J01.90] Diagnosis: Allergic rhinitis, unspecified[ICD10: J30.9] Tavia Dunham MD, [facility] CPT-4: 46054 12/07/2014 ([id number]) 74033 EST. PATIENT, LEVEL IV Diagnosis: ESSENTIAL HYPERTENSION[ICD9: 401.9] Diagnosis: DIABETES TYPE II[ICD9: 250.00] Diagnosis: NPH (normal pressure hydrocephalus)[ICD9: 331.5] Diagnosis: Hypertriglyceridemia[ICD9: 272.1] Kaylan Dunham MD, [facility] CPT- 4: 58471 09/07/2014 ([id number]) OFFICE/OUTPATIENT VISIT NEW Diagnosis: DIABETES TYPE II[ICD9: 250.00] Diagnosis: ESSENTIAL HYPERTENSION[ICD9: 401.9] Diagnosis: NPH (normal pressure hydrocephalus)[ICD9: 331.5] Diagnosis: Abnormal gait[ICD9: 781.2] Diagnosis: VITAMIN D DEFICIENCY[ICD9: 268.9] Tavia Dunham MD, [facility] CPT- 4: 28351 08/07/2014 Plan of Care Planned Activity Notes Codes Status Date Referral: Ammon Joiner Patient informed. Referral info [...] home. 03/11/2018 Appointment: Kaylan Melendez WPtel: [phone] [phone] [place] (30 min) Complex 03/11/2018 Patient Education: Patient Medication Summary Completed 03/11/2018 Patient Education: Cholesterol Management Completed 03/11/2018 Patient Education: Hypertension Completed 03/11/2018 Care Plan: Referral Order SNOMED-CT : [id number] Pending 03/11/2018 Visit Plan: Parasthesia - ongoing for about a month - will send RX and refer pt for EMG - The pt is to use prn antiinflammatories to manage acute pain. The patient is to call the office if the pain is worsening or does not improve. 02/17/2018 Appointment: Aditi Hamilton WPtel: [address] [place], [place] [phone] (15 min) Moderate 02/17/2018 Patient Education: Patient [...] warmth, discharge. 12/21/2017 Appointment: Aditi Hamilton WPtel: [facility] [place] (15 min) Moderate 12/21/2017 Patient Education: Patient Medication Summary Completed 12/21/2017 Appointment: T[facility] Dunham [facility] (15 min) Moderate 12/02/2017 Visit Plan: Sinusitis [...] peripheral edema. 11/30/2017 Appointment: Aditi Hamilton WPtel: [facility] (15 min) Moderate 11/30/2017 Patient Education: Patient Medication Summary Completed 11/30/2017 Care Plan: Comp Metabolic Pending 11/30/2017 Care Plan: Cbc With Differential Pending 11/30/2017 Care Plan: %Hba1C LOINC : 91430-4 Pending 11/30/2017 Care Plan: Lipid Pending 11/30/2017 Care Plan: Tsh Pending 11/30/2017 Care Plan: Free T4 Pending 11/30/2017 Appointment: T[facility] Dunham [facility] [place] (15 min) Moderate 11/26/2017 Appointment: Kaylan Melendez WPtel: [phone] [place] (30 min) Complex 08/13/2017 Appointment: Tavia Dunham [facility]Ptel[facility] [place] (15 min) Moderate 08/04/2017 Appointment: [facility] [phone] [facility] (15 min) Moderate 07/20/2017 Visit Plan: Sinusitis [...] shot today 05/28/2017 Appointment: Tavia Dunham WPtel: [facility] [place] (30 min) Complex 05/28/2017 Patient Education: [...] patient's pharmacy. 04/16/2017 Appointment: Tavia Dunham WPtel[facility] (15 min) Moderate 04/16/2017 Patient Education: [...] or concerns. 02/10/2017 Appointment: Aditi Hamilton WPtel: [facility] (15 min) Moderate 02/10/2017 Patient Education: Patient Medication Summary Completed 02/10/2017 Patient Education: Obesity Completed 02/10/2017 Visit Plan: Pain in Thoracic spine with muscle spasm - ibuprofen 600mg three times daily x 3 days, rx for cyclobenzaprine. 02/02/2017 Appointment: [facility] [phone] [facility] (15 min) Moderate 02/02/2017 Patient Education: [...] diet, check repeat labs today. 01/27/2017 Appointment: Timur [facility]y [facility] [phone] [facility] (15 min) Moderate 01/27/2017 Patient Education: [...] symptoms. 11/07/2016 Appointment: Aditi Hamilton WPtel: [phone] [facility] (30 min) Complex 11/07/2016 Patient Education: Patient [...] spray. 03/26/2016 Appointment: [facility] [phone] [facility] (30 min) Complex 03/26/2016 Patient Education: [...] to medications. 12/13/2015 Appointment: Tavia Dunham [facility]Ptel[facility] (15 min) Moderate 12/13/2015 Patient Education: [...] on supplement. 08/07/2014 Appointment: [facility] [phone] [facility] [place] ([place] New Patient 08/07/2014 Patient Education: Patient Medication Summary Completed 08/07/2014 Patient Education: Hypertension Completed 08/07/2014 Referral: Ammno Joiner Referral Appointment Requested Instructions Comment . [...]
--- OUTSIDE RECORDS SUMMARY | 2018-10-08 11:29 | XMS REPORT | CCD ---
Author Author [facility] Organization [facility] Address [address] [place] [address] Phone Care Team Providers Care Copyholder Name Role Phone PP Unavailable CCM Unavailable Summary Purpose Interface Exchange Insurance Providers Payer name Policy type / Coverage type Covered democrat ID Effective Begin Date Effective End Date Blue Cross Blue [facility] Blue Cross/Blue 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/[address]: 357052819 Never smoker 08/07/[address]: 632458493 Never drinks alcohol 08/07/2014 Allergies, Adverse Reactions, [...] 100 unit/mL (3 mL) subcutaneous pen RxNorm: 659285 30 Unit(s) SQ QAM and 25 Units SQ QPM 03/18/2018 07/15/2018 Active Levemir FlexTouch U-100 Insulin 100 unit/mL (3 mL) subcutaneous pen RxNorm: 368559 Unit(s) 03/11/2018 03/17/2018 Inactive 30 q am and 25 units q PM pravastatin 40 mg tablet RxNorm: 398719 1 Tablet(s) PO daily take with coenzyme q 10 daily 03/03/2018 02/25/2019 Active Levemir FlexTouch U-100 Insulin 100 unit/mL (3 mL) subcutaneous pen RxNorm: 477872 Unit(s) INJECT 25 UNITS SUBCUTANEOUSLY TWICE DAILY 03/03/2018 03/10/2018 Inactive pravastatin 10 mg tablet RxNorm: 043064 1 Tablet(s) PO daily take with coenzyme q 10 daily 02/26/2018 03/02/2018 Inactive prednisone 20 mg tablet RxNorm: 381928 2 Tablet(s) PO daily 02/17/2018 02/21/2018 Inactive levothyroxine 125 mcg tablet RxNorm: 236288 TAKE 1 TABLET BY MOUTH ONCE DAILY 01/11/2018 No Stop Date Active cyclobenzaprine 5 mg tablet RxNorm: 018578 1 Tablet(s) PO TID as needed 12/28/2017 01/11/2018 Inactive Zorvolex 35 mg capsule RxNorm: 6666590 1 Capsule(s) PO TID as needed 12/25/2017 05/23/2018 Active Levemir FlexTouch U-100 Insulin 100 unit/mL (3 mL) subcutaneous pen RxNorm: 396985 INJECT 2O UNITS SUBCUTANEOUSLY TWICE DAILY 12/21/2017 03/02/2018 Inactive cyclobenzaprine 5 mg tablet RxNorm: 995633 1 Tablet(s) PO TID as needed 12/21/2017 12/25/2017 Inactive doxycycline hyclate 100 mg capsule RxNorm: 6861554 1 Capsule(s) PO BID 12/21/2017 12/30/2017 Inactive venlafaxine ER 150 mg capsule,extended release 24 hr RxNorm: 712323 TAKE 1 CAPSULE BY MOUTH ONCE DAILY 12/10/2017 No Stop Date Active Singulair 10 mg tablet RxNorm: 178094 1 Tablet(s) PO daily 12/03/2017 12/02/2017 Inactive Singulair 10 mg tablet RxNorm: 670538 1 Tablet(s) PO daily 12/03/2017 01/01/2018 Inactive Zithromax Z-Kulwant 250 mg tablet RxNorm: 081629 1 Tablet(s) PO UD 12/03/2017 03/10/2018 Inactive z pack as directed Kenalog 40 mg/mL suspension for injection RxNorm: 1039408 1 Milliliter(s) Inj 11/30/2017 11/30/2017 Inactive prednisone 20 mg tablet RxNorm: 123237 2 Tablet(s) PO daily 11/30/2017 12/04/2017 Inactive Augmentin 875 mg-125 mg tablet RxNorm: 609447 1 Tablet(s) PO BID 11/27/2017 11/26/2017 Inactive Augmentin 875 mg-125 mg tablet RxNorm: 454175 1 Tablet(s) PO BID 11/27/2017 12/03/2017 Inactive Zorvolex 35 mg capsule RxNorm: 3503156 1 Capsule(s) PO TID as needed 11/09/2017 12/24/2017 Inactive hydrochlorothiazide 25 mg tablet RxNorm: 615181 1 Tablet(s) PO daily 10/22/2017 02/18/2018 Inactive enalapril maleate 5 mg tablet RxNorm: 868921 1 Tablet(s) PO daily TAKE ONE TABLET BY MOUTH ONCE DAILY 08/21/2017 02/16/2018 Inactive Levemir FlexTouch U-100 Insulin 100 unit/mL (3 mL) subcutaneous pen RxNorm: 895737 20 Unit(s) SQ BID 07/30/2017 12/20/2017 Inactive levothyroxine 125 mcg tablet RxNorm: 914694 TAKE ONE TABLET BY MOUTH ONCE DAILY 06/29/2017 01/10/2018 Inactive venlafaxine ER 150 mg capsule,extended release 24 hr RxNorm: 686861 1 Capsule(s) PO daily TAKE ONE CAPSULE BY MOUTH ONCE DAILY 06/08/2017 12/04/2017 Inactive prednisone 20 mg tablet RxNorm: 599151 1 Tablet(s) PO daily 06/02/2017 06/06/2017 Inactive prednisone 20 mg tablet RxNorm: 293785 1 Tablet(s) PO daily 06/01/2017 06/05/2017 Inactive Kenalog 40 mg/mL suspension for injection RxNorm: 4235205 1 Milliliter(s) Inj 05/28/2017 05/28/2017 Inactive cefdinir 300 mg capsule RxNorm: 258209 1 Capsule(s) PO BID 05/28/2017 06/03/2017 Inactive ceftriaxone 500 mg solution for injection RxNorm: 7498007 1 Inj 05/28/2017 05/28/2017 Inactive prednisone 20 mg tablet RxNorm: 784378 1 Tablet(s) PO daily 05/28/2017 05/31/2017 Inactive Keflex 500 mg capsule RxNorm: 541146 1 Capsule(s) PO TID 05/26/2017 06/01/2017 Inactive Keflex 500 mg capsule RxNorm: 349590 1 Capsule(s) PO TID 05/26/2017 05/25/2017 Inactive hydrocodone 10 mg-chlorpheniramine 8 mg/5 mL oral susp extend.rel 12hr RxNorm: 0778461 5-10 Milliliter(s) PO TID as needed 04/16/2017 No Stop Date Active Tussionex Pennkinetic ER 10 mg-8 mg/5 mL suspension,extended release RxNorm: 4883777 5 Milliliter(s) PO BID 04/16/2017 04/27/2017 Inactive Zithromax Z-Kulwant 250 mg tablet RxNorm: 612752 1 Tablet(s) PO UD 03/25/2017 04/15/2017 Inactive z pack as directed enalapril maleate 5 mg tablet RxNorm: 087227 TAKE ONE TABLET BY MOUTH ONCE DAILY 02/26/2017 08/20/2017 Inactive Levemir FlexTouch 100 unit/mL (3 mL) subcutaneous insulin pen RxNorm: 716287 20 Unit(s) SQ BID 02/10/2017 07/11/2017 Inactive Zorvolex 35 mg capsule RxNorm: 6256620 1 Capsule(s) PO TID as needed 02/10/2017 11/08/2017 Inactive valacyclovir 1 gram tablet RxNorm: 802113 1 Tablet(s) PO TID 02/10/2017 02/16/2017 Inactive Levemir FlexTouch 100 unit/mL (3 mL) subcutaneous insulin pen RxNorm: 811765 20 Unit(s) SQ BID 02/04/2017 02/09/2017 Inactive cyclobenzaprine 5 mg tablet RxNorm: 553026 1 Tablet(s) PO qhs x 3 nights and TID as needed muscle spasms 02/02/2017 No Stop Date Active levothyroxine 125 mcg tablet RxNorm: 685271 TAKE ONE TABLET BY MOUTH ONCE DAILY 12/08/2016 06/05/2017 Inactive venlafaxine ER 150 mg capsule,extended release 24 hr RxNorm: 861988 TAKE ONE CAPSULE BY MOUTH ONCE DAILY 12/01/2016 05/29/2017 Inactive Zorvolex 35 mg capsule RxNorm: 2565575 1 Capsule(s) PO TID as needed do not take meloxicam at the same time 11/07/2016 No Stop Date Active enalapril maleate 5 mg tablet RxNorm: 227188 TAKE ONE TABLET BY MOUTH ONCE DAILY 10/31/2016 12/29/2016 Inactive meloxicam 15 mg tablet RxNorm: 826874 TAKE ONE TABLET BY MOUTH ONCE DAILY 10/30/2016 03/10/2018 Inactive meloxicam 15 mg tablet RxNorm: 902401 TAKE ONE TABLET BY MOUTH ONCE DAILY 10/24/2016 10/29/2016 Inactive enalapril maleate 5 mg tablet RxNorm: 619589 TAKE ONE TABLET BY MOUTH ONCE DAILY 10/24/2016 10/30/2016 Inactive venlafaxine ER 150 mg capsule,extended release 24 hr RxNorm: 879380 TAKE ONE CAPSULE BY MOUTH ONCE DAILY 06/16/2016 11/12/2016 Inactive meloxicam 15 mg tablet RxNorm: 854161 TAKE ONE TABLET BY MOUTH ONCE DAILY 06/09/2016 10/06/2016 Inactive enalapril maleate 5 mg tablet RxNorm: 789389 TAKE ONE TABLET BY MOUTH ONCE DAILY 06/02/2016 09/29/2016 Inactive Zithromax Z-Kulwant 250 mg tablet RxNorm: 959600 1 Tablet(s) PO UD 05/21/2016 06/15/2016 Inactive levothyroxine 125 mcg tablet RxNorm: 459910 Tablet(s) TAKE ONE TABLET BY MOUTH ONCE DAILY 04/15/2016 10/11/2016 Inactive Levaquin 500 mg tablet RxNorm: 153829 1 Tablet(s) PO daily 04/03/2016 04/09/2016 Inactive Levaquin 500 mg tablet RxNorm: 764056 1 Tablet(s) PO daily 04/03/2016 04/02/2016 Inactive prednisone 20 mg tablet RxNorm: 498624 2 Tablet(s) PO daily 03/28/2016 04/01/2016 Inactive Zithromax Z-Kulwant 250 mg tablet RxNorm: 887907 1 Tablet(s) PO UD 03/26/2016 03/30/2016 Inactive zpack Kenalog 40 mg/mL suspension for injection RxNorm: 1910372 Milliliter(s) Inj 03/26/2016 03/26/2016 Inactive Zofran ODT 4 mg disintegrating tablet RxNorm: 921383 DISSOLVE ONE TABLET IN MOUTH EVERY 6 HOURS NEEDED 02/22/2016 02/29/2016 Inactive venlafaxine ER 150 mg capsule,extended release 24 hr RxNorm: 301197 TAKE ONE CAPSULE BY MOUTH ONCE DAILY 02/18/2016 06/15/2016 Inactive meloxicam 15 mg tablet RxNorm: 063547 TAKE ONE TABLET BY MOUTH ONCE DAILY 02/04/2016 06/02/2016 Inactive aspirin 81 mg chewable tablet RxNorm: 834622 1 Tablet(s) PO daily 12/13/2015 12/06/2016 Inactive biotin 2,500 mcg tablet RxNorm: 145082 1 Tablet(s) PO daily 12/13/2015 09/07/2016 Inactive hydrochlorothiazide 25 mg tablet RxNorm: 128842 1 Tablet(s) PO daily 12/13/2015 04/10/2016 Inactive enalapril maleate 5 mg tablet RxNorm: 409655 TAKE ONE TABLET BY MOUTH ONCE DAILY 11/22/2015 05/19/2016 Inactive venlafaxine ER 150 mg capsule,extended release 24 hr RxNorm: 586237 TAKE ONE CAPSULE BY MOUTH ONCE DAILY 11/14/2015 02/11/2016 Inactive levothyroxine 125 mcg tablet RxNorm: 674514 Tablet(s) TAKE ONE TABLET BY MOUTH ONCE DAILY 11/06/2015 04/14/2016 Inactive levothyroxine 125 mcg tablet RxNorm: 850764 Tablet(s) TAKE ONE TABLET BY MOUTH ONCE DAILY 08/06/2015 11/03/2015 Inactive meclizine 25 mg tablet RxNorm: 532532 1/2-1 Tablet(s) PO Q6 as needed 07/16/2015 No Stop Date Active Flonase Allergy Relief 50 mcg/actuation nasal spray,suspension RxNorm: 1 Means NASAL daily 06/13/2015 No Stop Date Active prednisone 20 mg tablet RxNorm: 465140 2 Tablet(s) PO daily 06/13/2015 06/17/2015 Inactive Augmentin 875 mg-125 mg tablet RxNorm: 913181 1 Tablet(s) PO BID 06/13/2015 06/19/2015 Inactive Zithromax Z-Kulwant 250 mg tablet RxNorm: 482136 1 Tablet(s) PO UD 06/07/2015 06/11/2015 Inactive zpack Kenalog 40 mg/mL suspension for injection RxNorm: 7848014 Milliliter(s) Inj 06/07/2015 06/07/2015 Inactive venlafaxine ER 150 mg capsule,extended release 24 hr RxNorm: 128478 TAKE ONE CAPSULE BY MOUTH ONCE DAILY 05/14/2015 11/09/2015 Inactive Augmentin 500 mg-125 mg tablet RxNorm: 226059 1 Tablet(s) PO TID 04/25/2015 05/04/2015 Inactive Augmentin 500 mg-125 mg tablet RxNorm: 960477 1 Tablet(s) PO TID 04/25/2015 04/24/2015 Inactive pravastatin 10 mg tablet RxNorm: 954686 1 Tablet(s) PO daily take with coenzyme q 10 daily 03/21/2015 03/20/2015 Inactive DC crestor pravastatin 10 mg tablet RxNorm: 205190 1 Tablet(s) PO daily take with coenzyme q 10 daily 03/21/2015 07/18/2015 Inactive DC crestor Zofran ODT 4 mg disintegrating tablet RxNorm: 628198 1 Tablet(s) PO Q6 PRN 03/13/2015 02/21/2016 Inactive levothyroxine 125 mcg tablet RxNorm: 736339 TAKE ONE TABLET BY MOUTH ONCE DAILY 02/13/2015 08/05/2015 Inactive meloxicam 15 mg tablet RxNorm: 403263 1 Tablet(s) PO daily 01/28/2015 01/22/2016 Inactive Zofran 4 mg tablet RxNorm: 182893 1 Tablet(s) PO Q6-8H as needed nausea 01/24/2015 No Stop Date Active Trulicity 1.5 mg/0.5 mL subcutaneous pen injector RxNorm: 4298694 0.75mg Milliliter(s) SQ QW 01/10/2015 03/10/2018 Inactive venlafaxine ER 150 mg capsule,extended release 24 hr RxNorm: 995063 1 Capsule(s) PO daily 01/10/2015 05/09/2015 Inactive enalapril maleate 5 mg tablet RxNorm: 655697 1 Tablet(s) PO daily 01/04/2015 07/02/2015 Inactive amoxicillin 500 mg tablet RxNorm: 885680 1 Tablet(s) PO BID 12/07/2014 12/06/2014 Inactive Probiotic & Acidophilus 300 million cell-250 mg capsule RxNorm: 1 Capsule(s) PO BID 12/07/2014 12/16/2014 Inactive amoxicillin 500 mg tablet RxNorm: 623842 1 Tablet(s) PO BID 12/07/2014 12/16/2014 Inactive Kenalog 40 mg/mL suspension for injection RxNorm: 6948854 1 Milliliter(s) Inj 12/07/2014 12/07/2014 Inactive meloxicam 15 mg tablet RxNorm: 987023 1 Tablet(s) PO daily 10/24/2014 10/23/2014 Inactive meloxicam 15 mg tablet RxNorm: 204459 1 Tablet(s) PO daily 10/24/2014 01/27/2015 Inactive azithromycin 500 mg tablet RxNorm: 445113 1 Tablet(s) PO daily 10/11/2014 10/15/2014 Inactive azithromycin 500 mg tablet RxNorm: 870637 1 Tablet(s) PO daily 10/11/2014 10/10/2014 Inactive levothyroxine 125 mcg tablet RxNorm: 915334 1 Tablet(s) PO daily 10/06/2014 02/02/2015 Inactive enalapril maleate 5 mg tablet RxNorm: 455660 1 Tablet(s) PO daily 08/29/2014 12/26/2014 Inactive enalapril maleate 5 mg tablet RxNorm: 769767 1 Tablet(s) PO daily 08/25/2014 08/28/2014 Inactive Medroxy oral RxNorm: 7802179 oral No Start Date Active Vitamin D3 5,000 unit tablet RxNorm: 682917 1 Tablet(s) PO daily No Start Date Active fluconazole 200 mg tablet RxNorm: 256995 Tablet(s) PO No Start Date Active estradiol 2 mg tablet RxNorm: 822809 1 Tablet(s) PO daily No Start Date Active fenofibrate nanocrystallized 145 mg tablet RxNorm: 045763 1 Tablet(s) PO daily No Start Date Active hydrocodone 5 mg-acetaminophen 325 mg tablet RxNorm: 215348 1-2 Tablet(s) PO Q4-6H as needed No Start Date Active enalapril maleate 5 mg tablet RxNorm: 173109 1 Tablet(s) PO daily No Start Date 08/24/2014 Inactive glimepiride 4 mg tablet RxNorm: 617321 1 Tablet(s) PO daily No Start Date 01/26/2017 Inactive meclizine 25 mg tablet RxNorm: 604344 1/2-1 Tablet(s) PO Q6 as needed No Start Date 07/15/2015 Inactive Trulicity 0.75 mg/0.5 mL subcutaneous pen injector RxNorm: 1872689 0.75mg Milliliter(s) SQ QW No Start Date 01/09/2015 Inactive metformin 1,000 mg tablet RxNorm: 999007 Tablet(s) PO BID No Start Date 01/26/2017 Inactive venlafaxine ER 150 mg capsule,extended release 24 hr RxNorm: 999685 1 Capsule(s) PO daily No Start Date 01/09/2015 Inactive meloxicam 15 mg tablet RxNorm: 873543 1 Tablet(s) PO daily No Start Date 10/23/2014 Inactive levothyroxine 125 mcg tablet RxNorm: 749410 1 Tablet(s) PO daily No Start Date 10/05/2014 Inactive Levemir FlexTouch 100 unit/mL (3 mL) subcutaneous insulin pen RxNorm: 311727 15 Unit(s) SQ daily No Start Date 02/03/2017 Inactive Zithromax Z-Kulwant 250 mg tablet RxNorm: 741980 1 Tablet(s) PO UD No Start Date 05/20/2016 Inactive Fish Oil 1,000 mg capsule RxNorm: 1 Capsule(s) PO BID No Start Date 11/04/2016 Inactive Zofran 4 mg tablet RxNorm: 400713 1 Tablet(s) PO Q6-8H as needed nausea No Start Date 01/23/2015 Inactive Crestor 10 mg tablet RxNorm: 650889 1 Tablet(s) PO daily No Start Date 03/20/2015 Inactive Medication Administered Medication Codes Instructions Start Date Status Kenalog 40 mg/mL suspension for injection RxNorm: 7377292 1Milliliter 11/30/2017 No longer Active Kenalog 40 mg/mL suspension for injection RxNorm: 0172500 1Milliliter 05/28/2017 No longer Active ceftriaxone 500 mg solution for injection RxNorm: 8056014 1 05/28/2017 No longer Active Kenalog 40 mg/mL suspension for injection RxNorm: 8544839 Milliliter 03/26/2016 No longer Active Kenalog 40 mg/mL suspension for injection RxNorm: 3115032 Milliliter 06/07/2015 No longer Active Kenalog 40 mg/mL suspension for injection RxNorm: 7230820 1Milliliter 12/07/2014 No longer Active Immunizations Vaccine [...] Item Item Code Result Date CHEM 14 [id number] AST TNP:Lab Request 01/27/2017 CHEM 14 [id number] ALT TNP:Lab Request 01/27/2017 CHEM 14 [id number] BUN TNP:Lab Request 01/27/2017 CHEM 14 [id number] ALBUMIN TNP:Lab Request 01/27/2017 CHEM 14 [id number] CHLORIDE TNP:Lab Request 01/27/2017 CHEM 14 [id number] Bili Total TNP:Lab Request 01/27/2017 CHEM 14 [id number] ALK PHOS TNP:Lab Request 01/27/2017 CHEM 14 [id number] SODIUM TNP:Lab Request 01/27/2017 CHEM 14 [id number] CREATININE TNP:Lab Request 01/27/2017 CHEM 14 [id number] CALCIUM TNP:Lab Request 01/27/2017 CHEM 14 [id number] POTASSIUM TNP:Lab Request 01/27/2017 CHEM 14 [id number] TOTAL PROTEIN TNP:Lab Request 01/27/2017 CHEM 14 [id number] GLUCOSE TNP:Lab Request 01/27/2017 CHEM 14 [id number] Bicarbonate TNP:Lab Request 01/27/2017 CHEM 14 [id number] AGAP TNP:Lab Request 01/27/2017 AMYLASE [id number] Amylase Lvl TNP:Lab Request 01/27/2017 LIPID GRP CHOLESTEROL 273 mg/dL 2016 LIPID GRP Triglyceride 583 mg/dL 2016 LIPID GRP HDL CHOLESTEROL 48 mg/dL 2016 LIPID GRP Chol/HDL Ratio 5.69 ratio 2016 LIPID GRP NON-HDL Chol 225 mg/dL 2016 LIPID GRP LDL Cholesterol N/A Trig >400 2016 A1C HPLC 9979160 Hgb A1c 44286-6 7.3 % 2016 TSH 7245573 TSH 1.340 uIU/mL 2016 FREE T4 6311253 T4 Free 1.60 ng/dL 2016 MEAN GLUC 3402795 Calc Mean Gluc 163 mg/dL 2016 GFR CALC 9650222 GFR Non Afr Amr >60 mL/min 2016 GFR CALC 7828835 GFR Afr Amr >60 mL/min 2016 CBC 4308262 WBC 8.1 10e9/L 2016 CBC 0490678 RBC 4.41 10e12/L 2016 CBC 7637693 HEMOGLOBIN 13.2 g/dL 2016 CBC 3275132 HEMATOCRIT 39.6 % 2016 CBC 5445902 MCV 89.8 fL 2016 CBC 8698268 MCH 29.9 pg 2016 CBC 0907943 MCHC 33.3 g/dL 2016 CBC 3417463 PLATELET COUNT 298 10e9/L 2016 CBC 7723355 Mean Plt Volume 10.5 fL 2016 CBC 0889343 Neut Auto 61.3 % 2016 CBC 3453366 Lymph Auto 26.3 % 2016 CBC 4520165 [place] Auto 7.7 % 2016 CBC 3657536 RDW 13.6 % 2016 CBC 6929849 Eos Auto 4.2 % 2016 CBC 4933907 Baso Auto 0.5 % 2016 CBC 2335632 Neutrophil Abs 4.97 10e9/L 2016 CBC 7782166 Lymphocyte Abs 2.13 10e9/L 2016 CBC 3794299 Monocyte Abs 0.62 10e9/L 2016 CBC 1750930 Eosinophil Abs 0.34 10e9/L 2016 CBC 7329808 Basophil Abs 0.04 10e9/L 2016 CBC 9418512 RDW-SD 44.1 fL 2016 CHEM 14 0271683 AST 19 U/L 2016 CHEM 14 3188989 ALT 26 U/L 2016 CHEM 14 7638420 BUN 20 mg/dL 2016 CHEM 14 4981238 ALBUMIN 4.1 g/dL 2016 CHEM 14 6667277 CHLORIDE 99 mmol/L 2016 CHEM 14 2058396 Bili Total 0.3 mg/dL 2016 CHEM 14 2598741 ALK PHOS 55 U/L 2016 CHEM 14 8696297 SODIUM 135 mmol/L 2016 CHEM 14 1782202 CREATININE 0.87 mg/dL 2016 CHEM 14 0674865 CALCIUM 9.3 mg/dL 2016 CHEM 14 2301803 POTASSIUM 4.0 mmol/L 2016 CHEM 14 6111162 TOTAL PROTEIN 7.0 g/dL 2016 CHEM 14 9285146 GLUCOSE 149 mg/dL 2016 CHEM 14 0005124 Bicarbonate 26 mmol/L 2016 CHEM 14 1172290 AGAP 10 mmol/L 2016 Review of Systems [...] 4: J0696 05/28/2017 THER/PROPH/DIAG INJ SC/IM CPT-4: 99343 05/19/2017 KETOROLAC TROMETHAMINE INJ CPT-4: J1885 05/19/2017 TRIAMCINOLONE ACET INJ NOS CPT-4: J3301 03/26/2016 TRIAMCINOLONE ACET INJ NOS CPT-4: J3301 06/07/2015 THER/PROPH/DIAG INJ SC/IM CPT-4: 87447 12/07/2014 TRIAMCINOLONE ACET INJ NOS CPT-4: J3301 12/07/2014 Vital Signs Date Vital 03/11/2018 Blood Pressure 1: 142/82 Code: 8480-6 BMI: 32.1 Code: 34746-5 Heart Rate 1: 87 bpm Height: 5'7" SpO2: 97% Weight: 205 lbs 02/17/2018 Blood Pressure 1: 132/76 Code: 8480-6 BMI: 33.5 Code: 34593-0 Heart Rate 1: 92 bpm Height: 5'7" SpO2: 98% Weight: 214 lbs 12/21/2017 Blood Pressure 1: 154/78 Code: 8480-6 BMI: 33.5 Code: 75219-9 Heart Rate 1: 93 bpm Height: 5'7" SpO2: 96% Weight: 214 lbs 11/30/2017 Blood Pressure 1: 148/88 Code: 8480-6 BMI: 33.5 Code: 33015-7 Heart Rate 1: 80 bpm Height: 5'7" SpO2: 97% Temperature: 36.9 (C) / 98.5 (F) Weight: 214 lbs 05/28/2017 Blood Pressure 1: 128/70 Code: 8480-6 BMI: 31.3 Code: 45798-5 Heart Rate 1: 103 bpm Height: 5'7" SpO2: 98% Temperature: 36.7 (C) / 98.1 (F) Weight: 200 lbs 05/19/2017 Blood Pressure 1: 150/72 Code: 8480-6 04/16/2017 Blood Pressure 1: 146/88 Code: 8480-6 BMI: 31.3 Code: 15666-8 Heart Rate 1: 96 bpm Height: 5'7" SpO2: 94% Temperature: 37.2 (C) / 99.0 (F) Weight: 200 lbs 02/10/2017 Blood Pressure 1: 132/72 Code: 8480-6 BMI: 31.3 Code: 13395-4 Heart Rate 1: 99 bpm Height: 5'7" SpO2: 97% Weight: 200 lbs 02/02/2017 Blood Pressure 1: 140/68 Code: 8480-6 BMI: 31.4 Code: 43080-1 Heart Rate 1: 82 bpm Height: 5'7" SpO2: 97% Weight: 200 lbs 8 oz 01/27/2017 Blood Pressure 1: 142/80 Code: 8480-6 BMI: 32.2 Code: 48667-7 Height: 5'7" Temperature: 37.2 (C) / 98.9 (F) Weight: 205 lbs 8 oz 11/07/2016 Blood Pressure 1: 148/82 Code: 8480-6 BMI: 32.7 Code: 42749-3 Heart Rate 1: 106 bpm Height: 5'7" SpO2: 97% Weight: 209 lbs 03/26/2016 Blood Pressure 1: 140/86 Code: 8480-6 Heart Rate 1: 90 bpm Height: SpO2: 97% Weight: 12/13/2015 Blood Pressure 1: 132/72 Code: 8480-6 BMI: 31.2 Code: 23031-4 Heart Rate 1: 84 bpm Height: 5'7" SpO2: 98% Weight: 199 lbs 08/15/2015 Blood Pressure 1: 138/88 Code: 8480-6 BMI: 32.1 Code: 54058-1 Heart Rate 1: 94 bpm Height: 5'7" SpO2: 97% Weight: 205 lbs 06/13/2015 Blood Pressure 1: 146/78 Code: 8480-6 Blood Pressure 1: 188/88 Code: 8480-6 BMI: 32.6 Code: 70206-1 Heart Rate 1: 97 bpm Height: 5'7" SpO2: 98% Weight: 208 lbs 06/07/2015 Blood Pressure 1: 128/82 Code: 8480-6 BMI: 32.4 Code: 98076-1 Heart Rate 1: 80 bpm Height: 5'7" SpO2: 99% Weight: 207 lbs 03/13/2015 Blood Pressure 1: 124/70 Code: 8480-6 BMI: 31.6 Code: 48900-5 Heart Rate 1: 103 bpm Height: 5'7" Respiratory Rate: 18 bpm SpO2: 97% Temperature: 36.6 (C) / 97.8 (F) Weight: 202 lbs 12/07/2014 Blood Pressure 1: 140/80 Code: 8480-6 BMI: 32.3 Code: 32782-8 Heart Rate 1: 97 bpm Height: 5'7" SpO2: 99% Weight: 206 lbs 09/07/2014 Blood Pressure 1: 132/78 Code: 8480-6 BMI: 31.2 Code: 71048-0 Heart Rate 1: 92 bpm Height: 5'7" [...] with shunt placement- 6-12-15- Dr Ruvalcaba in [place] did surgery headache Onset and Resolution ongoing [...] data Encounters Encounter Performer Location Codes Date ([id number]) [id number] EST. PATIENT, LEVEL IV Diagnosis: Type 2 diabetes mellitus with hyperglycemia[ICD10: E11.65] Diagnosis: Mixed hyperlipidemia[ICD10: E78.2] Diagnosis: Essential (primary) hypertension[ICD10: I10] Kaylan Dunham MD, [facility] CPT-4: 47538 03/11/2018 [id number] EST. PATIENT, LEVEL III Diagnosis: Paresthesia of skin[ICD10: R20.2] Aditi Dunham MD, [facility] CPT-4: 35143 02/17/2018 91884 EST. PATIENT, LEVEL IV Diagnosis: Pain in right shoulder[ICD10: M25.511] Diagnosis: Rash and other nonspecific skin eruption[ICD10: R21] Aditi Dunham MD, [facility] CPT-4: 06472 12/21/2017 90745 EST. PATIENT, LEVEL IV Diagnosis: Other acute sinusitis[ICD10: J01.80] Diagnosis: Other allergic rhinitis[ICD10: J30.89] Diagnosis: Localized edema[ICD10: R60.0] Aditi Dunham MD, [facility] CPT-4: 75825 11/30/2017 ([id number]) 13246 EST. PATIENT, LEVEL III Diagnosis: Acute recurrent maxillary sinusitis[ICD10: J01.01] Diagnosis: Cough[ICD10: R05] Tavia Dunham MD, [facility] CPT-4: 62260 05/28/2017 ([id number]) 82319 EST. PATIENT, LEVEL III Diagnosis: Acute laryngopharyngitis[ICD10: J06.0] Diagnosis: Cough[ICD10: R05] Tavia Dunham MD, [facility] CPT-4: 80932 04/16/2017 [id number] EST. PATIENT, LEVEL III Diagnosis: Left lower quadrant pain[ICD10: R10.32] Aditi Dunham MD, [facility] CPT-4: 34412 02/10/2017 ([id number]) 45798 EST. PATIENT, LEVEL III Diagnosis: Pain in thoracic spine[ICD10: M54.6] Diagnosis: Other muscle spasm[ICD10: M62.838] Tavia Dunham MD, [facility] CPT- 4: 45379 02/02/2017 ([id number]) 50730 EST. PATIENT, LEVEL IV Diagnosis: Other acute pancreatitis without necrosis or infection[ICD10: K85.80] Diagnosis: Epigastric pain[ICD10: R10.13] Diagnosis: Type 2 diabetes mellitus without complications[ICD10: E11.9] Tavia Dunham MD, [facility] CPT-4: 10238 01/27/2017 [id number] EST. PATIENT, LEVEL IV Diagnosis: Essential (primary) hypertension[ICD10: I10] Diagnosis: Type 1 diabetes mellitus without complications[ICD10: E10.9] Diagnosis: Other specified hypothyroidism[ICD10: E03.8] Diagnosis: Bilateral primary osteoarthritis of hip[ICD10: M16.0] Diagnosis: Actinic keratosis[ICD10: L57.0] Aditi Dunham MD, [facility] CPT-4: 73795 11/07/2016 [id number] EST. PATIENT, LEVEL III Diagnosis: Other acute sinusitis[ICD10: J01.80] Diagnosis: Other allergic rhinitis[ICD10: J30.89] Diagnosis: Cough[ICD10: R05] Aditi Dunham MD, [facility] CPT-4: 56840 03/26/2016 ([id number]) 20324 EST. PATIENT, LEVEL IV Diagnosis: Essential (primary) hypertension[ICD10: I10] Diagnosis: Pure hyperglyceridemia[ICD10: E78.1] Tavia Dunham MD, [facility] CPT- 4: 80751 12/13/2015 ([id number]) 23141 EST. PATIENT, LEVEL III Diagnosis: Essential (primary) hypertension[ICD10: I10] Diagnosis: (Idiopathic) normal pressure hydrocephalus[ICD10: G91.2] Tavia Dunham MD, [facility] CPT-4: 62419 08/15/2015 [id number] EST. PATIENT, LEVEL III Diagnosis: Other acute nonsuppurative otitis media, right ear[ICD10: H65.191] Diagnosis: Acute upper respiratory infection, unspecified[ICD10: J06.9] Aditi Dunham MD, [facility] CPT-4: 05847 06/13/2015 ([id number]) 60152 EST. PATIENT, LEVEL III Diagnosis: Acute recurrent maxillary sinusitis[ICD10: J01.01] Diagnosis: Allergic rhinitis due to pollen[ICD10: J30.1] Kaylan Dunham MD, [facility] CPT-4: 24119 06/07/2015 ([id number]) 80726 EST. PATIENT, LEVEL IV Diagnosis: (Idiopathic) normal pressure hydrocephalus[ICD10: G91.2] Diagnosis: Essential (primary) hypertension[ICD10: I10] Diagnosis: Dizziness and giddiness[ICD10: R42] Diagnosis: Nausea with vomiting, unspecified[ICD10: R11.2] Kaylan Dunham MD, [facility] CPT-4: 83238 03/13/2015 [id number] EST. PATIENT, LEVEL III Diagnosis: Acute sinusitis, unspecified[ICD10: J01.90] Diagnosis: Allergic rhinitis, unspecified[ICD10: J30.9] Tavia Dunham MD, [facility] CPT-4: 89152 12/07/2014 ([id number]) 69500 EST. PATIENT, LEVEL IV Diagnosis: ESSENTIAL HYPERTENSION[ICD9: 401.9] Diagnosis: DIABETES TYPE II[ICD9: 250.00] Diagnosis: NPH (normal pressure hydrocephalus)[ICD9: 331.5] Diagnosis: Hypertriglyceridemia[ICD9: 272.1] Kaylan Dunham MD, [facility] CPT- 4: 93439 09/07/2014 ([id number]) OFFICE/OUTPATIENT VISIT NEW Diagnosis: DIABETES TYPE II[ICD9: 250.00] Diagnosis: ESSENTIAL HYPERTENSION[ICD9: 401.9] Diagnosis: NPH (normal pressure hydrocephalus)[ICD9: 331.5] Diagnosis: Abnormal gait[ICD9: 781.2] Diagnosis: VITAMIN D DEFICIENCY[ICD9: 268.9] Tavia Dunham MD, [facility] CPT- 4: 14140 08/07/2014 Plan of Care Planned Activity Notes [...] at home. 03/11/2018 Appointment: Kaylan Melendez WPtel: [phone] [phone] [place] (30 min) Complex 03/11/2018 Patient Education: Patient Medication Summary Completed 03/11/2018 Patient Education: Cholesterol Management Completed 03/11/2018 Patient Education: Hypertension Completed 03/11/2018 Care Plan: Referral Order SNOMED-CT : [id number] Pending 03/11/2018 Visit Plan: Parasthesia - ongoing for about a month - will send RX and refer pt for EMG - The pt is to use prn antiinflammatories to manage acute pain. The patient is to call the office if the pain is worsening or does not improve. 02/17/2018 Appointment: Aditi Hamilton WPtel: [phone] [facility] [place] (15 min) Moderate 02/17/2018 Patient Education: [...] discharge. 12/21/2017 Appointment: Aditi Hamilton WPtel: [phone] [facility] [place] (15 min) Moderate 12/21/2017 Patient Education: Patient Medication Summary Completed 12/21/2017 Appointment: Tavia Dunham WPtel: [phone] [facility] [place] (15 min) Moderate 12/02/2017 Visit Plan: [...] edema. 11/30/2017 [phone] ([facility] Moderate 11/30/2017 Patient Education: Patient Medication Summary Completed 11/30/2017 Care Plan: Comp Metabolic Pending 11/30/2017 Care Plan: Cbc With Differential Pending 11/30/2017 Care Plan: %Hba1C LOINC : 02465-3 Pending 11/30/2017 Care Plan: Lipid Pending 11/30/2017 Care Plan: Tsh Pending 11/30/2017 Care Plan: Free T4 Pending 11/30/2017 Appointment: [facility]ham [facility] ([facility] Moderate 11/26/2017 [facility]ment[phone] [place] (30 min) Complex 08/13/2017 App[facility]ment: [phone] [place] ([place] min) Moderate 08/04/2017 Appointment: Tavia Dunham WPtel: [facility] (15 min) Moderate 07/20/2017 Visit Plan: Sinusitis [...] today 05/28/2017 App[facility]ment: [phone] [place] ([place]) Complex 05/28/2017 Patient [...] patient's pharmacy. 04/16/2017 App[facility]: [phone] [place] ([facility] [place]) Moderate 04/16/2017 Patient [...] concerns. 02/10/2017 App[facility]ment: [phone] [facility] [place] (15 min) Moderate 02/10/2017 Patient Education: Patient Medication Summary Completed 02/10/2017 Patient Education: Obesity Completed 02/10/2017 Visit Plan: Pain in Thoracic spine with muscle spasm - ibuprofen 600mg three times daily x 3 days, rx for cyclobenzaprine. 02/02/2017 App[facility]ment: [phone] [facility] [place] ([place]) Moderate 02/02/2017 Patient [...] labs today. 01/27/2017 App[facility]ment: [phone] [place] ([place]) Moderate 01/27/2017 Patient [...] break through pain symptoms. 11/07/2016 [facility]ment: [phone] ([facility] min) Complex 11/07/2016 Patient Education: [...] spray. 03/26/2016 App[facility]ment: [phone] [facility] ([facility] min) Complex 03/26/2016 Patient Education: [...] to medications. 12/13/2015 Appointment: Tavia Dunham WPtel[facility] ([facility] [place]) Moderate 12/13/2015 Patient Education: [...] on supplement. 08/07/2014 Appointment: Tavia Dunham WPtel[facility] [place] ([place] New Patient 08/07/2014 Patient [...]
--- OUTSIDE RECORDS SUMMARY | 2018-10-08 11:32 | XMS REPORT | CCD ---
Author Author [facility] Organization [facility] Address [address] [place] [address] Phone Care Team Providers Care Icing Coater Name Role Phone PP Unavailable CCM Unavailable Summary Purpose Interface Exchange Insurance Providers Payer name Policy type / Coverage type Covered libertarian ID Effective Begin Date Effective End Date Blue Cross Blue [facility] Blue Cross/Blue [facility] [id number] Unknown Family history Mother Diagnosis Age At Onset Cancer Unknown Arthritis Unknown Depression Unknown Hyperlipidemia Unknown Diabetes mellitus Type 2 Unknown Social History Social History Element Codes Description Effective Dates Marital status Unknown [place] 08/07/2014 Number of children Unknown 0 08/07/2014 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 08/07/[address]: 811268382 Never smoker 08/07/[address]: 645376405 Never drinks alcohol 08/07/2014 Allergies, Adverse Reactions, [...] 100 unit/mL (3 mL) subcutaneous pen RxNorm: 809836 Unit(s) 03/11/2018 07/08/2018 Active 30 q am and 25 units q PM pravastatin 40 mg tablet RxNorm: 879232 1 Tablet(s) PO daily take with coenzyme q 10 daily 03/03/2018 02/25/2019 Active Levemir FlexTouch U-100 Insulin 100 unit/mL (3 mL) subcutaneous pen RxNorm: 134657 Unit(s) INJECT 25 UNITS SUBCUTANEOUSLY TWICE DAILY 03/03/2018 03/10/2018 Inactive pravastatin 10 mg tablet RxNorm: 349851 1 Tablet(s) PO daily take with coenzyme q 10 daily 02/26/2018 03/02/2018 Inactive prednisone 20 mg tablet RxNorm: 398431 2 Tablet(s) PO daily 02/17/2018 02/21/2018 Inactive levothyroxine 125 mcg tablet RxNorm: 533962 TAKE 1 TABLET BY MOUTH ONCE DAILY 01/11/2018 No Stop Date Active cyclobenzaprine 5 mg tablet RxNorm: 007947 1 Tablet(s) PO TID as needed 12/28/2017 01/11/2018 Inactive Zorvolex 35 mg capsule RxNorm: 3985673 1 Capsule(s) PO TID as needed 12/25/2017 05/23/2018 Active Levemir FlexTouch U-100 Insulin 100 unit/mL (3 mL) subcutaneous pen RxNorm: 613819 INJECT 2O UNITS SUBCUTANEOUSLY TWICE DAILY 12/21/2017 03/02/2018 Inactive cyclobenzaprine 5 mg tablet RxNorm: 354073 1 Tablet(s) PO TID as needed 12/21/2017 12/25/2017 Inactive doxycycline hyclate 100 mg capsule RxNorm: 7552682 1 Capsule(s) PO BID 12/21/2017 12/30/2017 Inactive venlafaxine ER 150 mg capsule,extended release 24 hr RxNorm: 341829 TAKE 1 CAPSULE BY MOUTH ONCE DAILY 12/10/2017 No Stop Date Active Singulair 10 mg tablet RxNorm: 443570 1 Tablet(s) PO daily 12/03/2017 12/02/2017 Inactive Singulair 10 mg tablet RxNorm: 044307 1 Tablet(s) PO daily 12/03/2017 01/01/2018 Inactive Zithromax Z-Kulwant 250 mg tablet RxNorm: 595776 1 Tablet(s) PO UD 12/03/2017 03/10/2018 Inactive z pack as directed Kenalog 40 mg/mL suspension for injection RxNorm: 3846656 1 Milliliter(s) Inj 11/30/2017 11/30/2017 Inactive prednisone 20 mg tablet RxNorm: 815549 2 Tablet(s) PO daily 11/30/2017 12/04/2017 Inactive Augmentin 875 mg-125 mg tablet RxNorm: 924597 1 Tablet(s) PO BID 11/27/2017 11/26/2017 Inactive Augmentin 875 mg-125 mg tablet RxNorm: 628709 1 Tablet(s) PO BID 11/27/2017 12/03/2017 Inactive Zorvolex 35 mg capsule RxNorm: 0193917 1 Capsule(s) PO TID as needed 11/09/2017 12/24/2017 Inactive hydrochlorothiazide 25 mg tablet RxNorm: 280614 1 Tablet(s) PO daily 10/22/2017 02/18/2018 Inactive enalapril maleate 5 mg tablet RxNorm: 861208 1 Tablet(s) PO daily TAKE ONE TABLET BY MOUTH ONCE DAILY 08/21/2017 02/16/2018 Inactive Levemir FlexTouch U-100 Insulin 100 unit/mL (3 mL) subcutaneous pen RxNorm: 723686 20 Unit(s) SQ BID 07/30/2017 12/20/2017 Inactive levothyroxine 125 mcg tablet RxNorm: 834497 TAKE ONE TABLET BY MOUTH ONCE DAILY 06/29/2017 01/10/2018 Inactive venlafaxine ER 150 mg capsule,extended release 24 hr RxNorm: 938832 1 Capsule(s) PO daily TAKE ONE CAPSULE BY MOUTH ONCE DAILY 06/08/2017 12/04/2017 Inactive prednisone 20 mg tablet RxNorm: 502996 1 Tablet(s) PO daily 06/02/2017 06/06/2017 Inactive prednisone 20 mg tablet RxNorm: 522211 1 Tablet(s) PO daily 06/01/2017 06/05/2017 Inactive Kenalog 40 mg/mL suspension for injection RxNorm: 5235155 1 Milliliter(s) Inj 05/28/2017 05/28/2017 Inactive cefdinir 300 mg capsule RxNorm: 202167 1 Capsule(s) PO BID 05/28/2017 06/03/2017 Inactive ceftriaxone 500 mg solution for injection RxNorm: 9034910 1 Inj 05/28/2017 05/28/2017 Inactive prednisone 20 mg tablet RxNorm: 050633 1 Tablet(s) PO daily 05/28/2017 05/31/2017 Inactive Keflex 500 mg capsule RxNorm: 542403 1 Capsule(s) PO TID 05/26/2017 06/01/2017 Inactive Keflex 500 mg capsule RxNorm: 760807 1 Capsule(s) PO TID 05/26/2017 05/25/2017 Inactive hydrocodone 10 mg-chlorpheniramine 8 mg/5 mL oral susp extend.rel 12hr RxNorm: 6810308 5-10 Milliliter(s) PO TID as needed 04/16/2017 No Stop Date Active Tussionex Pennkinetic ER 10 mg-8 mg/5 mL suspension,extended release RxNorm: 9082617 5 Milliliter(s) PO BID 04/16/2017 04/27/2017 Inactive Zithromax Z-Kulwant 250 mg tablet RxNorm: 227875 1 Tablet(s) PO UD 03/25/2017 04/15/2017 Inactive z pack as directed enalapril maleate 5 mg tablet RxNorm: 161445 TAKE ONE TABLET BY MOUTH ONCE DAILY 02/26/2017 08/20/2017 Inactive Levemir FlexTouch 100 unit/mL (3 mL) subcutaneous insulin pen RxNorm: 446295 20 Unit(s) SQ BID 02/10/2017 07/11/2017 Inactive Zorvolex 35 mg capsule RxNorm: 8037760 1 Capsule(s) PO TID as needed 02/10/2017 11/08/2017 Inactive valacyclovir 1 gram tablet RxNorm: 364192 1 Tablet(s) PO TID 02/10/2017 02/16/2017 Inactive Levemir FlexTouch 100 unit/mL (3 mL) subcutaneous insulin pen RxNorm: 703378 20 Unit(s) SQ BID 02/04/2017 02/09/2017 Inactive cyclobenzaprine 5 mg tablet RxNorm: 271196 1 Tablet(s) PO qhs x 3 nights and TID as needed muscle spasms 02/02/2017 No Stop Date Active levothyroxine 125 mcg tablet RxNorm: 632636 TAKE ONE TABLET BY MOUTH ONCE DAILY 12/08/2016 06/05/2017 Inactive venlafaxine ER 150 mg capsule,extended release 24 hr RxNorm: 314191 TAKE ONE CAPSULE BY MOUTH ONCE DAILY 12/01/2016 05/29/2017 Inactive Zorvolex 35 mg capsule RxNorm: 1281569 1 Capsule(s) PO TID as needed do not take meloxicam at the same time 11/07/2016 No Stop Date Active enalapril maleate 5 mg tablet RxNorm: 366682 TAKE ONE TABLET BY MOUTH ONCE DAILY 10/31/2016 12/29/2016 Inactive meloxicam 15 mg tablet RxNorm: 161066 TAKE ONE TABLET BY MOUTH ONCE DAILY 10/30/2016 03/10/2018 Inactive meloxicam 15 mg tablet RxNorm: 741674 TAKE ONE TABLET BY MOUTH ONCE DAILY 10/24/2016 10/29/2016 Inactive enalapril maleate 5 mg tablet RxNorm: 229136 TAKE ONE TABLET BY MOUTH ONCE DAILY 10/24/2016 10/30/2016 Inactive venlafaxine ER 150 mg capsule,extended release 24 hr RxNorm: 354542 TAKE ONE CAPSULE BY MOUTH ONCE DAILY 06/16/2016 11/12/2016 Inactive meloxicam 15 mg tablet RxNorm: 063178 TAKE ONE TABLET BY MOUTH ONCE DAILY 06/09/2016 10/06/2016 Inactive enalapril maleate 5 mg tablet RxNorm: 797231 TAKE ONE TABLET BY MOUTH ONCE DAILY 06/02/2016 09/29/2016 Inactive Zithromax Z-Kulwant 250 mg tablet RxNorm: 304243 1 Tablet(s) PO UD 05/21/2016 06/15/2016 Inactive levothyroxine 125 mcg tablet RxNorm: 555736 Tablet(s) TAKE ONE TABLET BY MOUTH ONCE DAILY 04/15/2016 10/11/2016 Inactive Levaquin 500 mg tablet RxNorm: 821571 1 Tablet(s) PO daily 04/03/2016 04/09/2016 Inactive Levaquin 500 mg tablet RxNorm: 480459 1 Tablet(s) PO daily 04/03/2016 04/02/2016 Inactive prednisone 20 mg tablet RxNorm: 428135 2 Tablet(s) PO daily 03/28/2016 04/01/2016 Inactive Zithromax Z-Kulwant 250 mg tablet RxNorm: 601999 1 Tablet(s) PO UD 03/26/2016 03/30/2016 Inactive zpack Kenalog 40 mg/mL suspension for injection RxNorm: 9597045 Milliliter(s) Inj 03/26/2016 03/26/2016 Inactive Zofran ODT 4 mg disintegrating tablet RxNorm: 733842 DISSOLVE ONE TABLET IN MOUTH EVERY 6 HOURS NEEDED 02/22/2016 02/29/2016 Inactive venlafaxine ER 150 mg capsule,extended release 24 hr RxNorm: 074039 TAKE ONE CAPSULE BY MOUTH ONCE DAILY 02/18/2016 06/15/2016 Inactive meloxicam 15 mg tablet RxNorm: 904062 TAKE ONE TABLET BY MOUTH ONCE DAILY 02/04/2016 06/02/2016 Inactive aspirin 81 mg chewable tablet RxNorm: 689014 1 Tablet(s) PO daily 12/13/2015 12/06/2016 Inactive biotin 2,500 mcg tablet RxNorm: 973663 1 Tablet(s) PO daily 12/13/2015 09/07/2016 Inactive hydrochlorothiazide 25 mg tablet RxNorm: 727600 1 Tablet(s) PO daily 12/13/2015 04/10/2016 Inactive enalapril maleate 5 mg tablet RxNorm: 147452 TAKE ONE TABLET BY MOUTH ONCE DAILY 11/22/2015 05/19/2016 Inactive venlafaxine ER 150 mg capsule,extended release 24 hr RxNorm: 400617 TAKE ONE CAPSULE BY MOUTH ONCE DAILY 11/14/2015 02/11/2016 Inactive levothyroxine 125 mcg tablet RxNorm: 672284 Tablet(s) TAKE ONE TABLET BY MOUTH ONCE DAILY 11/06/2015 04/14/2016 Inactive levothyroxine 125 mcg tablet RxNorm: 367336 Tablet(s) TAKE ONE TABLET BY MOUTH ONCE DAILY 08/06/2015 11/03/2015 Inactive meclizine 25 mg tablet RxNorm: 066433 1/2-1 Tablet(s) PO Q6 as needed 07/16/2015 No Stop Date Active Flonase Allergy Relief 50 mcg/actuation nasal spray,suspension RxNorm: 1 [place] NASAL daily 06/13/2015 No Stop Date Active prednisone 20 mg tablet RxNorm: 952515 2 Tablet(s) PO daily 06/13/2015 06/17/2015 Inactive Augmentin 875 mg-125 mg tablet RxNorm: 515874 1 Tablet(s) PO BID 06/13/2015 06/19/2015 Inactive Zithromax Z-Kulwant 250 mg tablet RxNorm: 903333 1 Tablet(s) PO UD 06/07/2015 06/11/2015 Inactive zpack Kenalog 40 mg/mL suspension for injection RxNorm: 9634454 Milliliter(s) Inj 06/07/2015 06/07/2015 Inactive venlafaxine ER 150 mg capsule,extended release 24 hr RxNorm: 647778 TAKE ONE CAPSULE BY MOUTH ONCE DAILY 05/14/2015 11/09/2015 Inactive Augmentin 500 mg-125 mg tablet RxNorm: 562598 1 Tablet(s) PO TID 04/25/2015 05/04/2015 Inactive Augmentin 500 mg-125 mg tablet RxNorm: 126982 1 Tablet(s) PO TID 04/25/2015 04/24/2015 Inactive pravastatin 10 mg tablet RxNorm: 417549 1 Tablet(s) PO daily take with coenzyme q 10 daily 03/21/2015 03/20/2015 Inactive DC crestor pravastatin 10 mg tablet RxNorm: 054075 1 Tablet(s) PO daily take with coenzyme q 10 daily 03/21/2015 07/18/2015 Inactive DC crestor Zofran ODT 4 mg disintegrating tablet RxNorm: 260159 1 Tablet(s) PO Q6 PRN 03/13/2015 02/21/2016 Inactive levothyroxine 125 mcg tablet RxNorm: 406740 TAKE ONE TABLET BY MOUTH ONCE DAILY 02/13/2015 08/05/2015 Inactive meloxicam 15 mg tablet RxNorm: 732857 1 Tablet(s) PO daily 01/28/2015 01/22/2016 Inactive Zofran 4 mg tablet RxNorm: 606987 1 Tablet(s) PO Q6-8H as needed nausea 01/24/2015 No Stop Date Active Trulicity 1.5 mg/0.5 mL subcutaneous pen injector RxNorm: 0723354 0.75mg Milliliter(s) SQ QW 01/10/2015 03/10/2018 Inactive venlafaxine ER 150 mg capsule,extended release 24 hr RxNorm: 277707 1 Capsule(s) PO daily 01/10/2015 05/09/2015 Inactive enalapril maleate 5 mg tablet RxNorm: 303518 1 Tablet(s) PO daily 01/04/2015 07/02/2015 Inactive amoxicillin 500 mg tablet RxNorm: 067339 1 Tablet(s) PO BID 12/07/2014 12/06/2014 Inactive Probiotic & Acidophilus 300 million cell-250 mg capsule RxNorm: 1 Capsule(s) PO BID 12/07/2014 12/16/2014 Inactive amoxicillin 500 mg tablet RxNorm: 030234 1 Tablet(s) PO BID 12/07/2014 12/16/2014 Inactive Kenalog 40 mg/mL suspension for injection RxNorm: 7586908 1 Milliliter(s) Inj 12/07/2014 12/07/2014 Inactive meloxicam 15 mg tablet RxNorm: 733530 1 Tablet(s) PO daily 10/24/2014 10/23/2014 Inactive meloxicam 15 mg tablet RxNorm: 906370 1 Tablet(s) PO daily 10/24/2014 01/27/2015 Inactive azithromycin 500 mg tablet RxNorm: 271254 1 Tablet(s) PO daily 10/11/2014 10/15/2014 Inactive azithromycin 500 mg tablet RxNorm: 434508 1 Tablet(s) PO daily 10/11/2014 10/10/2014 Inactive levothyroxine 125 mcg tablet RxNorm: 770259 1 Tablet(s) PO daily 10/06/2014 02/02/2015 Inactive enalapril maleate 5 mg tablet RxNorm: 345548 1 Tablet(s) PO daily 08/29/2014 12/26/2014 Inactive enalapril maleate 5 mg tablet RxNorm: 593155 1 Tablet(s) PO daily 08/25/2014 08/28/2014 Inactive Medroxy oral RxNorm: 5107683 oral No Start Date Active Vitamin D3 5,000 unit tablet RxNorm: 709733 1 Tablet(s) PO daily No Start Date Active fluconazole 200 mg tablet RxNorm: 833038 Tablet(s) PO No Start Date Active estradiol 2 mg tablet RxNorm: 766186 1 Tablet(s) PO daily No Start Date Active fenofibrate nanocrystallized 145 mg tablet RxNorm: 541443 1 Tablet(s) PO daily No Start Date Active hydrocodone 5 mg-acetaminophen 325 mg tablet RxNorm: 220295 1-2 Tablet(s) PO Q4-6H as needed No Start Date Active enalapril maleate 5 mg tablet RxNorm: 028188 1 Tablet(s) PO daily No Start Date 08/24/2014 Inactive glimepiride 4 mg tablet RxNorm: 247215 1 Tablet(s) PO daily No Start Date 01/26/2017 Inactive meclizine 25 mg tablet RxNorm: 069325 1/2-1 Tablet(s) PO Q6 as needed No Start Date 07/15/2015 Inactive Trulicity 0.75 mg/0.5 mL subcutaneous pen injector RxNorm: 4201560 0.75mg Milliliter(s) SQ QW No Start Date 01/09/2015 Inactive metformin 1,000 mg tablet RxNorm: 082194 Tablet(s) PO BID No Start Date 01/26/2017 Inactive venlafaxine ER 150 mg capsule,extended release 24 hr RxNorm: 255579 1 Capsule(s) PO daily No Start Date 01/09/2015 Inactive meloxicam 15 mg tablet RxNorm: 800270 1 Tablet(s) PO daily No Start Date 10/23/2014 Inactive levothyroxine 125 mcg tablet RxNorm: 183290 1 Tablet(s) PO daily No Start Date 10/05/2014 Inactive Levemir FlexTouch 100 unit/mL (3 mL) subcutaneous insulin pen RxNorm: 650096 15 Unit(s) SQ daily No Start Date 02/03/2017 Inactive Zithromax Z-Kulwant 250 mg tablet RxNorm: 966318 1 Tablet(s) PO UD No Start Date 05/20/2016 Inactive Fish Oil 1,000 mg capsule RxNorm: 1 Capsule(s) PO BID No Start Date 11/04/2016 Inactive Zofran 4 mg tablet RxNorm: 706364 1 Tablet(s) PO Q6-8H as needed nausea No Start Date 01/23/2015 Inactive Crestor 10 mg tablet RxNorm: 525153 1 Tablet(s) PO daily No Start Date 03/20/2015 Inactive Medication Administered Medication Codes Instructions Start Date Status Kenalog 40 mg/mL suspension for injection RxNorm: 9578759 1Milliliter 11/30/2017 No longer Active Kenalog 40 mg/mL suspension for injection RxNorm: 8387429 1Milliliter 05/28/2017 No longer Active ceftriaxone 500 mg solution for injection RxNorm: 3442150 1 05/28/2017 No longer Active Kenalog 40 mg/mL suspension for injection RxNorm: 1084621 Milliliter 03/26/2016 No longer Active Kenalog 40 mg/mL suspension for injection RxNorm: 8305953 Milliliter 06/07/2015 No longer Active Kenalog 40 mg/mL suspension for injection RxNorm: 5464865 1Milliliter 12/07/2014 No longer Active Immunizations Vaccine [...] Item Item Code Result Date CHEM 14 [id number] AST TNP:Lab Request 01/27/2017 CHEM 14 [id number] ALT TNP:Lab Request 01/27/2017 CHEM 14 [id number] BUN TNP:Lab Request 01/27/2017 CHEM 14 [id number] ALBUMIN TNP:Lab Request 01/27/2017 CHEM 14 [id number] CHLORIDE TNP:Lab Request 01/27/2017 CHEM 14 [id number] Bili Total TNP:Lab Request 01/27/2017 CHEM 14 [id number] ALK PHOS TNP:Lab Request 01/27/2017 CHEM 14 [id number] SODIUM TNP:Lab Request 01/27/2017 CHEM 14 [id number] CREATININE TNP:Lab Request 01/27/2017 CHEM 14 [id number] CALCIUM TNP:Lab Request 01/27/2017 CHEM 14 [id number] POTASSIUM TNP:Lab Request 01/27/2017 CHEM 14 [id number] TOTAL PROTEIN TNP:Lab Request 01/27/2017 CHEM 14 [id number] GLUCOSE TNP:Lab Request 01/27/2017 CHEM 14 [id number] Bicarbonate TNP:Lab Request 01/27/2017 CHEM 14 [id number] AGAP TNP:Lab Request 01/27/2017 AMYLASE [id number] Amylase Lvl TNP:Lab Request 01/27/2017 LIPID GRP [id number] CHOLESTEROL 273 mg/dL 2016 LIPID GRP Triglyceride 583 mg/dL 2016 LIPID GRP HDL CHOLESTEROL 48 mg/dL 2016 LIPID GRP Chol/HDL Ratio 5.69 ratio 2016 LIPID GRP NON-HDL Chol 225 mg/dL 2016 LIPID GRP LDL Cholesterol N/A Trig >400 2016 A1C HPLC 3301929 Hgb A1c 87243-3 7.3 % 2016 TSH 6534037 TSH 1.340 uIU/mL 2016 FREE T4 7488440 T4 Free 1.60 ng/dL 2016 MEAN GLUC 3463876 Calc Mean Gluc 163 mg/dL 2016 GFR CALC 9772720 GFR Non Afr Amr >60 mL/min 2016 GFR CALC 2648566 GFR Afr Amr >60 mL/min 2016 CBC 4788815 WBC 8.1 10e9/L 2016 CBC 0227444 RBC 4.41 10e12/L 2016 CBC 8493188 HEMOGLOBIN 13.2 g/dL 2016 CBC 6718722 HEMATOCRIT 39.6 % 2016 CBC 9803297 MCV 89.8 fL 2016 CBC 0556410 MCH 29.9 pg 2016 CBC 2829140 MCHC 33.3 g/dL 2016 CBC 5995227 PLATELET COUNT 298 10e9/L 2016 CBC 3220432 Mean Plt Volume 10.5 fL 2016 CBC 9897998 Neut Auto 61.3 % 2016 CBC 5038240 Lymph Auto 26.3 % 2016 CBC 1569414 [place] Auto 7.7 % 2016 CBC 9393496 RDW 13.6 % 2016 CBC 4664274 Eos Auto 4.2 % 2016 CBC 5801573 Baso Auto 0.5 % 2016 CBC 6434279 Neutrophil Abs 4.97 10e9/L 2016 CBC 8034836 Lymphocyte Abs 2.13 10e9/L 2016 CBC 7058181 Monocyte Abs 0.62 10e9/L 2016 CBC 5948935 Eosinophil Abs 0.34 10e9/L 2016 CBC 0248563 Basophil Abs 0.04 10e9/L 2016 CBC 1338856 RDW-SD 44.1 fL 2016 CHEM 14 9739988 AST 19 U/L 2016 CHEM 14 5177935 ALT 26 U/L 2016 CHEM 14 6856472 BUN 20 mg/dL 2016 CHEM 14 3395745 ALBUMIN 4.1 g/dL 2016 CHEM 14 8693348 CHLORIDE 99 mmol/L 2016 CHEM 14 2122471 Bili Total 0.3 mg/dL 2016 CHEM 14 1807082 ALK PHOS 55 U/L 2016 CHEM 14 8999386 SODIUM 135 mmol/L 2016 CHEM 14 4073577 CREATININE 0.87 mg/dL 2016 CHEM 14 9247892 CALCIUM 9.3 mg/dL 2016 CHEM 14 3817102 POTASSIUM 4.0 mmol/L 2016 CHEM 14 6699540 TOTAL PROTEIN 7.0 g/dL 2016 CHEM 14 8419571 GLUCOSE 149 mg/dL 2016 CHEM 14 7200490 Bicarbonate 26 mmol/L 2016 CHEM 14 7005527 AGAP 10 mmol/L 2016 Review of Systems [...] clear 02/02/2017 None Full Exam - General 1995 Ears/Nose/Throat lips/teeth/gingiva Overall: benign lips 02/02/2017 None [...] 4: J0696 05/28/2017 THER/PROPH/DIAG INJ SC/IM CPT-4: 98390 05/19/2017 KETOROLAC TROMETHAMINE INJ CPT-4: J1885 05/19/2017 TRIAMCINOLONE ACET INJ NOS CPT-4: J3301 03/26/2016 TRIAMCINOLONE ACET INJ NOS CPT-4: J3301 06/07/2015 THER/PROPH/DIAG INJ SC/IM CPT-4: 14009 12/07/2014 TRIAMCINOLONE ACET INJ NOS CPT-4: J3301 12/07/2014 Vital Signs Date Vital 03/11/2018 Blood Pressure 1: 142/82 Code: 8480-6 BMI: 32.1 Code: 29065-2 Heart Rate 1: 87 bpm Height: 5'7" SpO2: 97% Weight: 205 lbs 02/17/2018 Blood Pressure 1: 132/76 Code: 8480-6 BMI: 33.5 Code: 77573-0 Heart Rate 1: 92 bpm Height: 5'7" SpO2: 98% Weight: 214 lbs 12/21/2017 Blood Pressure 1: 154/78 Code: 8480-6 BMI: 33.5 Code: 93598-9 Heart Rate 1: 93 bpm Height: 5'7" SpO2: 96% Weight: 214 lbs 11/30/2017 Blood Pressure 1: 148/88 Code: 8480-6 BMI: 33.5 Code: 96858-8 Heart Rate 1: 80 bpm Height: 5'7" SpO2: 97% Temperature: 36.9 (C) / 98.5 (F) Weight: 214 lbs 05/28/2017 Blood Pressure 1: 128/70 Code: 8480-6 BMI: 31.3 Code: 02364-9 Heart Rate 1: 103 bpm Height: 5'7" SpO2: 98% Temperature: 36.7 (C) / 98.1 (F) Weight: 200 lbs 05/19/2017 Blood Pressure 1: 150/72 Code: 8480-6 04/16/2017 Blood Pressure 1: 146/88 Code: 8480-6 BMI: 31.3 Code: 53430-7 Heart Rate 1: 96 bpm Height: 5'7" SpO2: 94% Temperature: 37.2 (C) / 99.0 (F) Weight: 200 lbs 02/10/2017 Blood Pressure 1: 132/72 Code: 8480-6 BMI: 31.3 Code: 95431-0 Heart Rate 1: 99 bpm Height: 5'7" SpO2: 97% Weight: 200 lbs 02/02/2017 Blood Pressure 1: 140/68 Code: 8480-6 BMI: 31.4 Code: 17804-1 Heart Rate 1: 82 bpm Height: 5'7" SpO2: 97% Weight: 200 lbs 8 oz 01/27/2017 Blood Pressure 1: 142/80 Code: 8480-6 BMI: 32.2 Code: 55557-7 Height: 5'7" Temperature: 37.2 (C) / 98.9 (F) Weight: 205 lbs 8 oz 11/07/2016 Blood Pressure 1: 148/82 Code: 8480-6 BMI: 32.7 Code: 26732-6 Heart Rate 1: 106 bpm Height: 5'7" SpO2: 97% Weight: 209 lbs 03/26/2016 Blood Pressure 1: 140/86 Code: 8480-6 Heart Rate 1: 90 bpm Height: SpO2: 97% Weight: 12/13/2015 Blood Pressure 1: 132/72 Code: 8480-6 BMI: 31.2 Code: 98528-1 Heart Rate 1: 84 bpm Height: 5'7" SpO2: 98% Weight: 199 lbs 08/15/2015 Blood Pressure 1: 138/88 Code: 8480-6 BMI: 32.1 Code: 11703-3 Heart Rate 1: 94 bpm Height: 5'7" SpO2: 97% Weight: 205 lbs 06/13/2015 Blood Pressure 1: 146/78 Code: 8480-6 Blood Pressure 1: 188/88 Code: 8480-6 BMI: 32.6 Code: 92038-8 Heart Rate 1: 97 bpm Height: 5'7" SpO2: 98% Weight: 208 lbs 06/07/2015 Blood Pressure 1: 128/82 Code: 8480-6 BMI: 32.4 Code: 60450-5 Heart Rate 1: 80 bpm Height: 5'7" SpO2: 99% Weight: 207 lbs 03/13/2015 Blood Pressure 1: 124/70 Code: 8480-6 BMI: 31.6 Code: 18555-1 Heart Rate 1: 103 bpm Height: 5'7" Respiratory Rate: 18 bpm SpO2: 97% Temperature: 36.6 (C) / 97.8 (F) Weight: 202 lbs 12/07/2014 Blood Pressure 1: 140/80 Code: 8480-6 BMI: 32.3 Code: 01509-6 Heart Rate 1: 97 bpm Height: 5'7" SpO2: 99% Weight: 206 lbs 09/07/2014 Blood Pressure 1: 132/78 Code: 8480-6 BMI: 31.2 Code: 31813-2 Heart Rate 1: 92 bpm Height: 5'7" [...] with shunt placement- 6-12-15- Dr Ruvalcaba in [place] did surgery headache Onset and Resolution ongoing [...] Encounters Encounter Performer Location Codes Date ( 44790 EST. PATIENT, LEVEL IV Diagnosis: Type 2 diabetes mellitus with hyperglycemia[ICD10: E11.65] Diagnosis: Mixed hyperlipidemia[ICD10: E78.2] Diagnosis: Essential (primary) hypertension[ICD10: I10] Kaylan Dunham MD, [facility] CPT-4: 17121 03/11/2018 [id number] EST. PATIENT, LEVEL III Diagnosis: Paresthesia of skin[ICD10: R20.2] Aditi Dunham MD, [facility] CPT-4: 02039 02/17/2018 [id number] EST. PATIENT, LEVEL IV Diagnosis: Pain in right shoulder[ICD10: M25.511] Diagnosis: Rash and other nonspecific skin eruption[ICD10: R21] Aditi Dunham MD, [facility] CPT-4: 07970 12/21/2017 [id number] EST. PATIENT, LEVEL IV Diagnosis: Other acute sinusitis[ICD10: J01.80] Diagnosis: Other allergic rhinitis[ICD10: J30.89] Diagnosis: Localized edema[ICD10: R60.0] Aditi Dunham MD, [facility] CPT-4: 46233 11/30/2017 ([id number]) 18186 EST. PATIENT, LEVEL III Diagnosis: Acute recurrent maxillary sinusitis[ICD10: J01.01] Diagnosis: Cough[ICD10: R05] Tavia Dunham MD, [facility] CPT-4: 91958 05/28/2017 ([id number]) 31809 EST. PATIENT, LEVEL III Diagnosis: Acute laryngopharyngitis[ICD10: J06.0] Diagnosis: Cough[ICD10: R05] Tavia Dunham MD, [facility] CPT-4: 18070 04/16/2017 [id number] EST. PATIENT, LEVEL III Diagnosis: Left lower quadrant pain[ICD10: R10.32] Aditi Dunham MD, [facility] CPT-4: 91023 02/10/2017 ([id number]) 12283 EST. PATIENT, LEVEL III Diagnosis: Pain in thoracic spine[ICD10: M54.6] Diagnosis: Other muscle spasm[ICD10: M62.838] Tavia Dunham MD, [facility] CPT- 4: 46494 02/02/2017 ([id number]) 68128 EST. PATIENT, LEVEL IV Diagnosis: Other acute pancreatitis without necrosis or infection[ICD10: K85.80] Diagnosis: Epigastric pain[ICD10: R10.13] Diagnosis: Type 2 diabetes mellitus without complications[ICD10: E11.9] Tavia Dunham MD, [facility] CPT-4: 04613 01/27/2017 [id number] EST. PATIENT, LEVEL IV Diagnosis: Essential (primary) hypertension[ICD10: I10] Diagnosis: Type 1 diabetes mellitus without complications[ICD10: E10.9] Diagnosis: Other specified hypothyroidism[ICD10: E03.8] Diagnosis: Bilateral primary osteoarthritis of hip[ICD10: M16.0] Diagnosis: Actinic keratosis[ICD10: L57.0] Aditi Dunham MD, [facility] CPT-4: 93101 11/07/2016 32328 EST. PATIENT, LEVEL III Diagnosis: Other acute sinusitis[ICD10: J01.80] Diagnosis: Other allergic rhinitis[ICD10: J30.89] Diagnosis: Cough[ICD10: R05] Aditi Dunham MD, [facility] CPT-4: 40560 03/26/2016 ([id number]) 38806 EST. PATIENT, LEVEL IV Diagnosis: Essential (primary) hypertension[ICD10: I10] Diagnosis: Pure hyperglyceridemia[ICD10: E78.1] Tavia Dunham MD, [facility] CPT- 4: 60868 12/13/2015 ([id number]) 60804 EST. PATIENT, LEVEL III Diagnosis: Essential (primary) hypertension[ICD10: I10] Diagnosis: (Idiopathic) normal pressure hydrocephalus[ICD10: G91.2] Tavia Dunham MD, [facility] CPT-4: 63515 08/15/2015 [id number] EST. PATIENT, LEVEL III Diagnosis: Other acute nonsuppurative otitis media, right ear[ICD10: H65.191] Diagnosis: Acute upper respiratory infection, unspecified[ICD10: J06.9] Aditi Dunham MD, [facility] CPT-4: 51830 06/13/2015 ([id number]) [id number] EST. PATIENT, LEVEL III Diagnosis: Acute recurrent maxillary sinusitis[ICD10: J01.01] Diagnosis: Allergic rhinitis due to pollen[ICD10: J30.1] Kaylan Dunham MD, [facility] CPT-4: 41343 06/07/2015 ([id number]) 26585 EST. PATIENT, LEVEL IV Diagnosis: (Idiopathic) normal pressure hydrocephalus[ICD10: G91.2] Diagnosis: Essential (primary) hypertension[ICD10: I10] Diagnosis: Dizziness and giddiness[ICD10: R42] Diagnosis: Nausea with vomiting, unspecified[ICD10: R11.2] Kaylan Dunham MD, [facility] CPT-4: 01637 03/13/2015 [id number] EST. PATIENT, LEVEL III Diagnosis: Acute sinusitis, unspecified[ICD10: J01.90] Diagnosis: Allergic rhinitis, unspecified[ICD10: J30.9] Tavia Dunham MD, [facility] CPT-4: 08032 12/07/2014 ([id number]) [id number] EST. PATIENT, LEVEL IV Diagnosis: ESSENTIAL HYPERTENSION[ICD9: 401.9] Diagnosis: DIABETES TYPE II[ICD9: 250.00] Diagnosis: NPH (normal pressure hydrocephalus)[ICD9: 331.5] Diagnosis: Hypertriglyceridemia[ICD9: 272.1] Kaylan Dunham MD, [facility] CPT- 4: 77019 09/07/2014 ([id number]) OFFICE/OUTPATIENT VISIT NEW Diagnosis: DIABETES TYPE II[ICD9: 250.00] Diagnosis: ESSENTIAL HYPERTENSION[ICD9: 401.9] Diagnosis: NPH (normal pressure hydrocephalus)[ICD9: 331.5] Diagnosis: Abnormal gait[ICD9: 781.2] Diagnosis: VITAMIN D DEFICIENCY[ICD9: 268.9] Tavia Dunham MD, [facility] CPT- 4: 94679 08/07/2014 Plan of Care Planned Activity Notes [...] in blood pressure readings at home. 03/11/2018 Patient Education: Patient Medication Summary Completed 03/11/2018 Patient Education: Cholesterol Management Completed 03/11/2018 Patient Education: Hypertension Completed 03/11/2018 Care Plan: Referral Order SNOMED-CT : [id number] Pending 03/11/2018 Visit Plan: Parasthesia - ongoing for about a month - will send RX and refer pt for EMG - The pt is to use prn antiinflammatories to manage acute pain. The patient is to call the office if the pain is worsening or does not improve. 02/17/2018 Appointment: Aditi Hamilton WPtel: [facility] (15 min) Moderate 02/17/2018 Patient Education: Patient [...] discharge. 12/21/2017 Appointment: Aditi Hamilton WPtel: [facility]5 [facility] (15 min) Moderate 12/21/2017 Patient Education: Patient Medication Summary Completed 12/21/2017 Appointment: Tavia Dunham WPtel: [facility]8 [facility] (15 min) Moderate 12/02/2017 Visit Plan: [...] edema. 11/30/2017 Appointment: Aditi Hamilton WPtel: [phone] [facility] [place] (15 min) Moderate 11/30/2017 Patient Education: Patient Medication Summary Completed 11/30/2017 Care Plan: Comp Metabolic Pending 11/30/2017 Care Plan: Cbc With Differential Pending 11/30/2017 Care Plan: %Hba1C LOINC : 59224-6 Pending 11/30/2017 Care Plan: Lipid Pending 11/30/2017 Care Plan: Tsh Pending 11/30/2017 Care Plan: Free T4 Pending 11/30/2017 Appointment: Tavia Dunham WPtel: [phone] [facility] [place] (15 min) Moderate 11/26/2017 Appointment: Kaylan Melendez WPtel: [phone] [phone] [place] (30 min) Complex 08/13/2017 Appointment: Tavia Dunham WPtel: [phone] [facility] [place] (15 min) Moderate 08/04/2017 Appointment: Tavia Dunham WPtel: [phone] [facility] [place] (15 min) Moderate 07/20/2017 Visit [...] today 05/28/2017 [phone] ([facility]) Complex 05/28/2017 Patient Education: Patient [...] pharmacy. 04/16/2017 Appointment: Tavia Dunham WPtel: [phone] [facility] (15 min) Moderate 04/16/2017 Patient Education: [...] concerns. 02/10/2017 [phone] ([facility]) Moderate 02/10/2017 Patient Education: Patient Medication Summary Completed 02/10/2017 Patient Education: Obesity Completed 02/10/2017 Visit Plan: Pain in Thoracic spine with muscle spasm - ibuprofen 600mg three times daily x 3 days, rx for cyclobenzaprine. 02/02/2017 Appointment: Tvaia Dunham WPtel: [facility] [place] (15 min) Moderate 02/02/2017 Patient [...] today. 01/27/2017 Appointment: [phone] (15 min) Moderate 01/27/2017 Patient Education: [...] pain symptoms. 11/07/2016 Appointment: [phone] (30 min) Complex 11/07/2016 Patient Education: [...] spray. 03/26/2016 App[facility]ment: [phone] (30 min) Complex 03/26/2016 Patient Education: [...] to medications. 12/13/2015 Appointment: [facility]ham [facility]el[phone] (15 min) Moderate 12/13/2015 Patient Education: [...] 08/07/2014 Appointment: Tavia Dunham WPtel: [facility] [place] (S[facility] New Patient 08/07/2014 Patient [...]
--- OUTSIDE RECORDS SUMMARY | 2018-10-08 11:35 | XMS REPORT | CCD ---
Author Author [facility] Organization [facility] Address [address] [place] [address] Phone Care Team Providers Care Churn Driller Name Role Phone PP Unavailable CCM Unavailable Summary Purpose Interface Exchange Insurance Providers Payer name Policy type / Coverage type Covered green party ID Effective Begin Date Effective End Date Blue Cross Blue 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/[address]: 126220903 Never smoker 08/07/[address]: 089197972 Never drinks alcohol 08/07/2014 Allergies, Adverse Reactions, [...] 100 unit/mL (3 mL) subcutaneous pen RxNorm: 054048 Unit(s) 03/11/2018 07/08/2018 Active 30 q am and 25 units q PM pravastatin 40 mg tablet RxNorm: 991118 1 Tablet(s) PO daily take with coenzyme q 10 daily 03/03/2018 02/25/2019 Active Levemir FlexTouch U-100 Insulin 100 unit/mL (3 mL) subcutaneous pen RxNorm: 985522 Unit(s) INJECT 25 UNITS SUBCUTANEOUSLY TWICE DAILY 03/03/2018 03/10/2018 Inactive pravastatin 10 mg tablet RxNorm: 433065 1 Tablet(s) PO daily take with coenzyme q 10 daily 02/26/2018 03/02/2018 Inactive prednisone 20 mg tablet RxNorm: 205606 2 Tablet(s) PO daily 02/17/2018 02/21/2018 Inactive levothyroxine 125 mcg tablet RxNorm: 463708 TAKE 1 TABLET BY MOUTH ONCE DAILY 01/11/2018 No Stop Date Active cyclobenzaprine 5 mg tablet RxNorm: 466977 1 Tablet(s) PO TID as needed 12/28/2017 01/11/2018 Inactive Zorvolex 35 mg capsule RxNorm: 5707384 1 Capsule(s) PO TID as needed 12/25/2017 05/23/2018 Active Levemir FlexTouch U-100 Insulin 100 unit/mL (3 mL) subcutaneous pen RxNorm: 794975 INJECT 2O UNITS SUBCUTANEOUSLY TWICE DAILY 12/21/2017 03/02/2018 Inactive cyclobenzaprine 5 mg tablet RxNorm: 008196 1 Tablet(s) PO TID as needed 12/21/2017 12/25/2017 Inactive doxycycline hyclate 100 mg capsule RxNorm: 2706718 1 Capsule(s) PO BID 12/21/2017 12/30/2017 Inactive venlafaxine ER 150 mg capsule,extended release 24 hr RxNorm: 306355 TAKE 1 CAPSULE BY MOUTH ONCE DAILY 12/10/2017 No Stop Date Active Singulair 10 mg tablet RxNorm: 010358 1 Tablet(s) PO daily 12/03/2017 12/02/2017 Inactive Singulair 10 mg tablet RxNorm: 345274 1 Tablet(s) PO daily 12/03/2017 01/01/2018 Inactive Zithromax Z-Kulwant 250 mg tablet RxNorm: 821142 1 Tablet(s) PO UD 12/03/2017 03/10/2018 Inactive z pack as directed Kenalog 40 mg/mL suspension for injection RxNorm: 7282871 1 Milliliter(s) Inj 11/30/2017 11/30/2017 Inactive prednisone 20 mg tablet RxNorm: 851658 2 Tablet(s) PO daily 11/30/2017 12/04/2017 Inactive Augmentin 875 mg-125 mg tablet RxNorm: 158923 1 Tablet(s) PO BID 11/27/2017 11/26/2017 Inactive Augmentin 875 mg-125 mg tablet RxNorm: 613885 1 Tablet(s) PO BID 11/27/2017 12/03/2017 Inactive Zorvolex 35 mg capsule RxNorm: 3845653 1 Capsule(s) PO TID as needed 11/09/2017 12/24/2017 Inactive hydrochlorothiazide 25 mg tablet RxNorm: 296972 1 Tablet(s) PO daily 10/22/2017 02/18/2018 Inactive enalapril maleate 5 mg tablet RxNorm: 709573 1 Tablet(s) PO daily TAKE ONE TABLET BY MOUTH ONCE DAILY 08/21/2017 02/16/2018 Inactive Levemir FlexTouch U-100 Insulin 100 unit/mL (3 mL) subcutaneous pen RxNorm: 816161 20 Unit(s) SQ BID 07/30/2017 12/20/2017 Inactive levothyroxine 125 mcg tablet RxNorm: 268016 TAKE ONE TABLET BY MOUTH ONCE DAILY 06/29/2017 01/10/2018 Inactive venlafaxine ER 150 mg capsule,extended release 24 hr RxNorm: 362776 1 Capsule(s) PO daily TAKE ONE CAPSULE BY MOUTH ONCE DAILY 06/08/2017 12/04/2017 Inactive prednisone 20 mg tablet RxNorm: 802052 1 Tablet(s) PO daily 06/02/2017 06/06/2017 Inactive prednisone 20 mg tablet RxNorm: 313025 1 Tablet(s) PO daily 06/01/2017 06/05/2017 Inactive Kenalog 40 mg/mL suspension for injection RxNorm: 6906189 1 Milliliter(s) Inj 05/28/2017 05/28/2017 Inactive cefdinir 300 mg capsule RxNorm: 408065 1 Capsule(s) PO BID 05/28/2017 06/03/2017 Inactive ceftriaxone 500 mg solution for injection RxNorm: 0674534 1 Inj 05/28/2017 05/28/2017 Inactive prednisone 20 mg tablet RxNorm: 751349 1 Tablet(s) PO daily 05/28/2017 05/31/2017 Inactive Keflex 500 mg capsule RxNorm: 429735 1 Capsule(s) PO TID 05/26/2017 06/01/2017 Inactive Keflex 500 mg capsule RxNorm: 391530 1 Capsule(s) PO TID 05/26/2017 05/25/2017 Inactive hydrocodone 10 mg-chlorpheniramine 8 mg/5 mL oral susp extend.rel 12hr RxNorm: 8654686 5-10 Milliliter(s) PO TID as needed 04/16/2017 No Stop Date Active Tussionex Pennkinetic ER 10 mg-8 mg/5 mL suspension,extended release RxNorm: 8758908 5 Milliliter(s) PO BID 04/16/2017 04/27/2017 Inactive Zithromax Z-Kulwant 250 mg tablet RxNorm: 539498 1 Tablet(s) PO UD 03/25/2017 04/15/2017 Inactive z pack as directed enalapril maleate 5 mg tablet RxNorm: 213295 TAKE ONE TABLET BY MOUTH ONCE DAILY 02/26/2017 08/20/2017 Inactive Levemir FlexTouch 100 unit/mL (3 mL) subcutaneous insulin pen RxNorm: 097945 20 Unit(s) SQ BID 02/10/2017 07/11/2017 Inactive Zorvolex 35 mg capsule RxNorm: 2230809 1 Capsule(s) PO TID as needed 02/10/2017 11/08/2017 Inactive valacyclovir 1 gram tablet RxNorm: 267037 1 Tablet(s) PO TID 02/10/2017 02/16/2017 Inactive Levemir FlexTouch 100 unit/mL (3 mL) subcutaneous insulin pen RxNorm: 145917 20 Unit(s) SQ BID 02/04/2017 02/09/2017 Inactive cyclobenzaprine 5 mg tablet RxNorm: 899290 1 Tablet(s) PO qhs x 3 nights and TID as needed muscle spasms 02/02/2017 No Stop Date Active levothyroxine 125 mcg tablet RxNorm: 561713 TAKE ONE TABLET BY MOUTH ONCE DAILY 12/08/2016 06/05/2017 Inactive venlafaxine ER 150 mg capsule,extended release 24 hr RxNorm: 872893 TAKE ONE CAPSULE BY MOUTH ONCE DAILY 12/01/2016 05/29/2017 Inactive Zorvolex 35 mg capsule RxNorm: 2207601 1 Capsule(s) PO TID as needed do not take meloxicam at the same time 11/07/2016 No Stop Date Active enalapril maleate 5 mg tablet RxNorm: 364268 TAKE ONE TABLET BY MOUTH ONCE DAILY 10/31/2016 12/29/2016 Inactive meloxicam 15 mg tablet RxNorm: 022552 TAKE ONE TABLET BY MOUTH ONCE DAILY 10/30/2016 03/10/2018 Inactive meloxicam 15 mg tablet RxNorm: 569977 TAKE ONE TABLET BY MOUTH ONCE DAILY 10/24/2016 10/29/2016 Inactive enalapril maleate 5 mg tablet RxNorm: 160028 TAKE ONE TABLET BY MOUTH ONCE DAILY 10/24/2016 10/30/2016 Inactive venlafaxine ER 150 mg capsule,extended release 24 hr RxNorm: 157916 TAKE ONE CAPSULE BY MOUTH ONCE DAILY 06/16/2016 11/12/2016 Inactive meloxicam 15 mg tablet RxNorm: 882651 TAKE ONE TABLET BY MOUTH ONCE DAILY 06/09/2016 10/06/2016 Inactive enalapril maleate 5 mg tablet RxNorm: 049701 TAKE ONE TABLET BY MOUTH ONCE DAILY 06/02/2016 09/29/2016 Inactive Zithromax Z-Kulwant 250 mg tablet RxNorm: 793970 1 Tablet(s) PO UD 05/21/2016 06/15/2016 Inactive levothyroxine 125 mcg tablet RxNorm: 286958 Tablet(s) TAKE ONE TABLET BY MOUTH ONCE DAILY 04/15/2016 10/11/2016 Inactive Levaquin 500 mg tablet RxNorm: 099288 1 Tablet(s) PO daily 04/03/2016 04/09/2016 Inactive Levaquin 500 mg tablet RxNorm: 060075 1 Tablet(s) PO daily 04/03/2016 04/02/2016 Inactive prednisone 20 mg tablet RxNorm: 595158 2 Tablet(s) PO daily 03/28/2016 04/01/2016 Inactive Zithromax Z-Kulwant 250 mg tablet RxNorm: 322986 1 Tablet(s) PO UD 03/26/2016 03/30/2016 Inactive zpack Kenalog 40 mg/mL suspension for injection RxNorm: 8164411 Milliliter(s) Inj 03/26/2016 03/26/2016 Inactive Zofran ODT 4 mg disintegrating tablet RxNorm: 980677 DISSOLVE ONE TABLET IN MOUTH EVERY 6 HOURS NEEDED 02/22/2016 02/29/2016 Inactive venlafaxine ER 150 mg capsule,extended release 24 hr RxNorm: 521389 TAKE ONE CAPSULE BY MOUTH ONCE DAILY 02/18/2016 06/15/2016 Inactive meloxicam 15 mg tablet RxNorm: 893519 TAKE ONE TABLET BY MOUTH ONCE DAILY 02/04/2016 06/02/2016 Inactive aspirin 81 mg chewable tablet RxNorm: 529942 1 Tablet(s) PO daily 12/13/2015 12/06/2016 Inactive biotin 2,500 mcg tablet RxNorm: 982058 1 Tablet(s) PO daily 12/13/2015 09/07/2016 Inactive hydrochlorothiazide 25 mg tablet RxNorm: 575507 1 Tablet(s) PO daily 12/13/2015 04/10/2016 Inactive enalapril maleate 5 mg tablet RxNorm: 269564 TAKE ONE TABLET BY MOUTH ONCE DAILY 11/22/2015 05/19/2016 Inactive venlafaxine ER 150 mg capsule,extended release 24 hr RxNorm: 491508 TAKE ONE CAPSULE BY MOUTH ONCE DAILY 11/14/2015 02/11/2016 Inactive levothyroxine 125 mcg tablet RxNorm: 274413 Tablet(s) TAKE ONE TABLET BY MOUTH ONCE DAILY 11/06/2015 04/14/2016 Inactive levothyroxine 125 mcg tablet RxNorm: 055516 Tablet(s) TAKE ONE TABLET BY MOUTH ONCE DAILY 08/06/2015 11/03/2015 Inactive meclizine 25 mg tablet RxNorm: 790645 1/2-1 Tablet(s) PO Q6 as needed 07/16/2015 No Stop Date Active Flonase Allergy Relief 50 mcg/actuation nasal spray,suspension RxNorm: 1 [place] NASAL daily 06/13/2015 No Stop Date Active prednisone 20 mg tablet RxNorm: 693066 2 Tablet(s) PO daily 06/13/2015 06/17/2015 Inactive Augmentin 875 mg-125 mg tablet RxNorm: 278235 1 Tablet(s) PO BID 06/13/2015 06/19/2015 Inactive Zithromax Z-Kulwant 250 mg tablet RxNorm: 877379 1 Tablet(s) PO UD 06/07/2015 06/11/2015 Inactive zpack Kenalog 40 mg/mL suspension for injection RxNorm: 5697274 Milliliter(s) Inj 06/07/2015 06/07/2015 Inactive venlafaxine ER 150 mg capsule,extended release 24 hr RxNorm: 997168 TAKE ONE CAPSULE BY MOUTH ONCE DAILY 05/14/2015 11/09/2015 Inactive Augmentin 500 mg-125 mg tablet RxNorm: 774716 1 Tablet(s) PO TID 04/25/2015 05/04/2015 Inactive Augmentin 500 mg-125 mg tablet RxNorm: 484700 1 Tablet(s) PO TID 04/25/2015 04/24/2015 Inactive pravastatin 10 mg tablet RxNorm: 660464 1 Tablet(s) PO daily take with coenzyme q 10 daily 03/21/2015 03/20/2015 Inactive DC crestor pravastatin 10 mg tablet RxNorm: 673099 1 Tablet(s) PO daily take with coenzyme q 10 daily 03/21/2015 07/18/2015 Inactive DC crestor Zofran ODT 4 mg disintegrating tablet RxNorm: 724261 1 Tablet(s) PO Q6 PRN 03/13/2015 02/21/2016 Inactive levothyroxine 125 mcg tablet RxNorm: 711785 TAKE ONE TABLET BY MOUTH ONCE DAILY 02/13/2015 08/05/2015 Inactive meloxicam 15 mg tablet RxNorm: 516583 1 Tablet(s) PO daily 01/28/2015 01/22/2016 Inactive Zofran 4 mg tablet RxNorm: 585857 1 Tablet(s) PO Q6-8H as needed nausea 01/24/2015 No Stop Date Active Trulicity 1.5 mg/0.5 mL subcutaneous pen injector RxNorm: 4887948 0.75mg Milliliter(s) SQ QW 01/10/2015 03/10/2018 Inactive venlafaxine ER 150 mg capsule,extended release 24 hr RxNorm: 661870 1 Capsule(s) PO daily 01/10/2015 05/09/2015 Inactive enalapril maleate 5 mg tablet RxNorm: 273844 1 Tablet(s) PO daily 01/04/2015 07/02/2015 Inactive amoxicillin 500 mg tablet RxNorm: 170088 1 Tablet(s) PO BID 12/07/2014 12/06/2014 Inactive Probiotic & Acidophilus 300 million cell-250 mg capsule RxNorm: 1 Capsule(s) PO BID 12/07/2014 12/16/2014 Inactive amoxicillin 500 mg tablet RxNorm: 511114 1 Tablet(s) PO BID 12/07/2014 12/16/2014 Inactive Kenalog 40 mg/mL suspension for injection RxNorm: 9142246 1 Milliliter(s) Inj 12/07/2014 12/07/2014 Inactive meloxicam 15 mg tablet RxNorm: 380420 1 Tablet(s) PO daily 10/24/2014 10/23/2014 Inactive meloxicam 15 mg tablet RxNorm: 844577 1 Tablet(s) PO daily 10/24/2014 01/27/2015 Inactive azithromycin 500 mg tablet RxNorm: 128488 1 Tablet(s) PO daily 10/11/2014 10/15/2014 Inactive azithromycin 500 mg tablet RxNorm: 827056 1 Tablet(s) PO daily 10/11/2014 10/10/2014 Inactive levothyroxine 125 mcg tablet RxNorm: 305156 1 Tablet(s) PO daily 10/06/2014 02/02/2015 Inactive enalapril maleate 5 mg tablet RxNorm: 214794 1 Tablet(s) PO daily 08/29/2014 12/26/2014 Inactive enalapril maleate 5 mg tablet RxNorm: 948078 1 Tablet(s) PO daily 08/25/2014 08/28/2014 Inactive Medroxy oral RxNorm: 2205920 oral No Start Date Active Vitamin D3 5,000 unit tablet RxNorm: 222920 1 Tablet(s) PO daily No Start Date Active fluconazole 200 mg tablet RxNorm: 422273 Tablet(s) PO No Start Date Active estradiol 2 mg tablet RxNorm: 120792 1 Tablet(s) PO daily No Start Date Active fenofibrate nanocrystallized 145 mg tablet RxNorm: 418009 1 Tablet(s) PO daily No Start Date Active hydrocodone 5 mg-acetaminophen 325 mg tablet RxNorm: 425070 1-2 Tablet(s) PO Q4-6H as needed No Start Date Active enalapril maleate 5 mg tablet RxNorm: 800409 1 Tablet(s) PO daily No Start Date 08/24/2014 Inactive glimepiride 4 mg tablet RxNorm: 220903 1 Tablet(s) PO daily No Start Date 01/26/2017 Inactive meclizine 25 mg tablet RxNorm: 663448 1/2-1 Tablet(s) PO Q6 as needed No Start Date 07/15/2015 Inactive Trulicity 0.75 mg/0.5 mL subcutaneous pen injector RxNorm: 6506663 0.75mg Milliliter(s) SQ QW No Start Date 01/09/2015 Inactive metformin 1,000 mg tablet RxNorm: 997642 Tablet(s) PO BID No Start Date 01/26/2017 Inactive venlafaxine ER 150 mg capsule,extended release 24 hr RxNorm: 118548 1 Capsule(s) PO daily No Start Date 01/09/2015 Inactive meloxicam 15 mg tablet RxNorm: 724921 1 Tablet(s) PO daily No Start Date 10/23/2014 Inactive levothyroxine 125 mcg tablet RxNorm: 071350 1 Tablet(s) PO daily No Start Date 10/05/2014 Inactive Levemir FlexTouch 100 unit/mL (3 mL) subcutaneous insulin pen RxNorm: 733184 15 Unit(s) SQ daily No Start Date 02/03/2017 Inactive Zithromax Z-Kulwant 250 mg tablet RxNorm: 882440 1 Tablet(s) PO UD No Start Date 05/20/2016 Inactive Fish Oil 1,000 mg capsule RxNorm: 1 Capsule(s) PO BID No Start Date 11/04/2016 Inactive Zofran 4 mg tablet RxNorm: 689952 1 Tablet(s) PO Q6-8H as needed nausea No Start Date 01/23/2015 Inactive Crestor 10 mg tablet RxNorm: 592404 1 Tablet(s) PO daily No Start Date 03/20/2015 Inactive Medication Administered Medication Codes Instructions Start Date Status Kenalog 40 mg/mL suspension for injection RxNorm: 9446512 1Milliliter 11/30/2017 No longer Active Kenalog 40 mg/mL suspension for injection RxNorm: 4922242 1Milliliter 05/28/2017 No longer Active ceftriaxone 500 mg solution for injection RxNorm: 9256951 1 05/28/2017 No longer Active Kenalog 40 mg/mL suspension for injection RxNorm: 0377078 Milliliter 03/26/2016 No longer Active Kenalog 40 mg/mL suspension for injection RxNorm: 9782286 Milliliter 06/07/2015 No longer Active Kenalog 40 mg/mL suspension for injection RxNorm: 6115782 1Milliliter 12/07/2014 No longer Active Immunizations Vaccine [...] Item Item Code Result Date CHEM 14 [id number] AST TNP:Lab Request 01/27/2017 CHEM 14 [id number] ALT TNP:Lab Request 01/27/2017 CHEM 14 [id number] BUN TNP:Lab Request 01/27/2017 CHEM 14 [id number] ALBUMIN TNP:Lab Request 01/27/2017 CHEM 14 [id number] CHLORIDE TNP:Lab Request 01/27/2017 CHEM 14 [id number] Bili Total TNP:Lab Request 01/27/2017 CHEM 14 [id number] ALK PHOS TNP:Lab Request 01/27/2017 CHEM 14 [id number] SODIUM TNP:Lab Request 01/27/2017 CHEM 14 [id number] CREATININE TNP:Lab Request 01/27/2017 CHEM 14 [id number] CALCIUM TNP:Lab Request 01/27/2017 CHEM 14 [id number] POTASSIUM TNP:Lab Request 01/27/2017 CHEM 14 [id number] TOTAL PROTEIN TNP:Lab Request 01/27/2017 CHEM 14 [id number] GLUCOSE TNP:Lab Request 01/27/2017 CHEM 14 [id number] Bicarbonate TNP:Lab Request 01/27/2017 CHEM 14 [id number] AGAP TNP:Lab Request 01/27/2017 AMYLASE [id number] Amylase Lvl TNP:Lab Request 01/27/2017 LIPID GRP [id number] CHOLESTEROL 273 mg/dL 2016 LIPID GRP Triglyceride 583 mg/dL 2016 LIPID GRP HDL CHOLESTEROL 48 mg/dL 2016 LIPID GRP Chol/HDL Ratio 5.69 ratio 2016 LIPID GRP NON-HDL Chol 225 mg/dL 2016 LIPID GRP LDL Cholesterol N/A Trig >400 2016 A1C HPLC 6972233 Hgb A1c 92578-2 7.3 % 2016 TSH 3687157 TSH 1.340 uIU/mL 2016 FREE T4 3493180 T4 Free 1.60 ng/dL 2016 MEAN GLUC 6058027 Calc Mean Gluc 163 mg/dL 2016 GFR CALC 1708231 GFR Non Afr Amr >60 mL/min 2016 GFR CALC 9369107 GFR Afr Amr >60 mL/min 2016 CBC 8199114 WBC 8.1 10e9/L 2016 CBC 6713368 RBC 4.41 10e12/L 2016 CBC 3079631 HEMOGLOBIN 13.2 g/dL 2016 CBC 7760219 HEMATOCRIT 39.6 % 2016 CBC 4374160 MCV 89.8 fL 2016 CBC 1950389 MCH 29.9 pg 2016 CBC 2396578 MCHC 33.3 g/dL 2016 CBC 6570428 PLATELET COUNT 298 10e9/L 2016 CBC 0987172 Mean Plt Volume 10.5 fL 2016 CBC 4741918 Neut Auto 61.3 % 2016 CBC 0250648 Lymph Auto 26.3 % 2016 CBC 9735828 [place] Auto 7.7 % 2016 CBC 9580375 RDW 13.6 % 2016 CBC 3512897 Eos Auto 4.2 % 2016 CBC 6406735 Baso Auto 0.5 % 2016 CBC 8461391 Neutrophil Abs 4.97 10e9/L 2016 CBC 8635074 Lymphocyte Abs 2.13 10e9/L 2016 CBC 2593252 Monocyte Abs 0.62 10e9/L 2016 CBC 5858849 Eosinophil Abs 0.34 10e9/L 2016 CBC 9548658 RDW-SD 44.1 fL 2016 CBC 0992745 Basophil Abs 0.04 10e9/L 2016 CHEM 14 0145780 AST 19 U/L 2016 CHEM 14 1013357 ALT 26 U/L 2016 CHEM 14 5597761 BUN 20 mg/dL 2016 CHEM 14 6221843 ALBUMIN 4.1 g/dL 2016 CHEM 14 9427797 CHLORIDE 99 mmol/L 2016 CHEM 14 2967800 Bili Total 0.3 mg/dL 2016 CHEM 14 8176341 ALK PHOS 55 U/L 2016 CHEM 14 3589021 SODIUM 135 mmol/L 2016 CHEM 14 3372064 CREATININE 0.87 mg/dL 2016 CHEM 14 7152505 CALCIUM 9.3 mg/dL 2016 CHEM 14 4795843 POTASSIUM 4.0 mmol/L 2016 CHEM 14 1264349 TOTAL PROTEIN 7.0 g/dL 2016 CHEM 14 8634158 GLUCOSE 149 mg/dL 2016 CHEM 14 3641437 Bicarbonate 26 mmol/L 2016 CHEM 14 6574335 AGAP 10 mmol/L 2016 Review of Systems [...] 4: J0696 05/28/2017 THER/PROPH/DIAG INJ SC/IM CPT-4: 92831 05/19/2017 KETOROLAC TROMETHAMINE INJ CPT-4: J1885 05/19/2017 TRIAMCINOLONE ACET INJ NOS CPT-4: J3301 03/26/2016 TRIAMCINOLONE ACET INJ NOS CPT-4: J3301 06/07/2015 THER/PROPH/DIAG INJ SC/IM CPT-4: 50848 12/07/2014 TRIAMCINOLONE ACET INJ NOS CPT-4: J3301 12/07/2014 Vital Signs Date Vital 03/11/2018 Blood Pressure 1: 142/82 Code: 8480-6 BMI: 32.1 Code: 31244-5 Heart Rate 1: 87 bpm Height: 5'7" SpO2: 97% Weight: 205 lbs 02/17/2018 Blood Pressure 1: 132/76 Code: 8480-6 BMI: 33.5 Code: 11509-3 Heart Rate 1: 92 bpm Height: 5'7" SpO2: 98% Weight: 214 lbs 12/21/2017 Blood Pressure 1: 154/78 Code: 8480-6 BMI: 33.5 Code: 43373-7 Heart Rate 1: 93 bpm Height: 5'7" SpO2: 96% Weight: 214 lbs 11/30/2017 Blood Pressure 1: 148/88 Code: 8480-6 BMI: 33.5 Code: 60933-3 Heart Rate 1: 80 bpm Height: 5'7" SpO2: 97% Temperature: 36.9 (C) / 98.5 (F) Weight: 214 lbs 05/28/2017 Blood Pressure 1: 128/70 Code: 8480-6 BMI: 31.3 Code: 50823-3 Heart Rate 1: 103 bpm Height: 5'7" SpO2: 98% Temperature: 36.7 (C) / 98.1 (F) Weight: 200 lbs 05/19/2017 Blood Pressure 1: 150/72 Code: 8480-6 04/16/2017 Blood Pressure 1: 146/88 Code: 8480-6 BMI: 31.3 Code: 08754-4 Heart Rate 1: 96 bpm Height: 5'7" SpO2: 94% Temperature: 37.2 (C) / 99.0 (F) Weight: 200 lbs 02/10/2017 Blood Pressure 1: 132/72 Code: 8480-6 BMI: 31.3 Code: 92988-3 Heart Rate 1: 99 bpm Height: 5'7" SpO2: 97% Weight: 200 lbs 02/02/2017 Blood Pressure 1: 140/68 Code: 8480-6 BMI: 31.4 Code: 57213-2 Heart Rate 1: 82 bpm Height: 5'7" SpO2: 97% Weight: 200 lbs 8 oz 01/27/2017 Blood Pressure 1: 142/80 Code: 8480-6 BMI: 32.2 Code: 43353-9 Height: 5'7" Temperature: 37.2 (C) / 98.9 (F) Weight: 205 lbs 8 oz 11/07/2016 Blood Pressure 1: 148/82 Code: 8480-6 BMI: 32.7 Code: 39532-7 Heart Rate 1: 106 bpm Height: 5'7" SpO2: 97% Weight: 209 lbs 03/26/2016 Blood Pressure 1: 140/86 Code: 8480-6 Heart Rate 1: 90 bpm Height: SpO2: 97% Weight: 12/13/2015 Blood Pressure 1: 132/72 Code: 8480-6 BMI: 31.2 Code: 99390-0 Heart Rate 1: 84 bpm Height: 5'7" SpO2: 98% Weight: 199 lbs 08/15/2015 Blood Pressure 1: 138/88 Code: 8480-6 BMI: 32.1 Code: 04020-4 Heart Rate 1: 94 bpm Height: 5'7" SpO2: 97% Weight: 205 lbs 06/13/2015 Blood Pressure 1: 146/78 Code: 8480-6 Blood Pressure 1: 188/88 Code: 8480-6 BMI: 32.6 Code: 17580-6 Heart Rate 1: 97 bpm Height: 5'7" SpO2: 98% Weight: 208 lbs 06/07/2015 Blood Pressure 1: 128/82 Code: 8480-6 BMI: 32.4 Code: 99213-2 Heart Rate 1: 80 bpm Height: 5'7" SpO2: 99% Weight: 207 lbs 03/13/2015 Blood Pressure 1: 124/70 Code: 8480-6 BMI: 31.6 Code: 38505-0 Heart Rate 1: 103 bpm Height: 5'7" Respiratory Rate: 18 bpm SpO2: 97% Temperature: 36.6 (C) / 97.8 (F) Weight: 202 lbs 12/07/2014 Blood Pressure 1: 140/80 Code: 8480-6 BMI: 32.3 Code: 62840-0 Heart Rate 1: 97 bpm Height: 5'7" SpO2: 99% Weight: 206 lbs 09/07/2014 Blood Pressure 1: 132/78 Code: 8480-6 BMI: 31.2 Code: 85409-4 Heart Rate 1: 92 bpm Height: 5'7" [...] with shunt placement- 6-12-15- Dr Ruvalcaba in [place] did surgery headache Onset and Resolution ongoing [...] Encounters Encounter Performer Location Codes Date ( [id number] EST. PATIENT, LEVEL IV Diagnosis: Type 2 diabetes mellitus with hyperglycemia[ICD10: E11.65] Diagnosis: Mixed hyperlipidemia[ICD10: E78.2] Diagnosis: Essential (primary) hypertension[ICD10: I10] Kaylan Dunham MD, [facility] CPT-4: 50951 03/11/2018 [id number] EST. PATIENT, LEVEL III Diagnosis: Paresthesia of skin[ICD10: R20.2] Aditi Dunham MD, [facility] CPT-4: 15265 02/17/2018 [id number] EST. PATIENT, LEVEL IV Diagnosis: Pain in right shoulder[ICD10: M25.511] Diagnosis: Rash and other nonspecific skin eruption[ICD10: R21] Aditi Dunham MD, [facility] CPT-4: 70736 12/21/2017 [id number] EST. PATIENT, LEVEL IV Diagnosis: Other acute sinusitis[ICD10: J01.80] Diagnosis: Other allergic rhinitis[ICD10: J30.89] Diagnosis: Localized edema[ICD10: R60.0] Aditi Dunham MD, [facility] CPT-4: 32558 11/30/2017 ([id number]) 08744 EST. PATIENT, LEVEL III Diagnosis: Acute recurrent maxillary sinusitis[ICD10: J01.01] Diagnosis: Cough[ICD10: R05] Tavia Dunham MD, [facility] CPT-4: 03539 05/28/2017 ([id number]) 77620 EST. PATIENT, LEVEL III Diagnosis: Acute laryngopharyngitis[ICD10: J06.0] Diagnosis: Cough[ICD10: R05] Tavia Dunham MD, [facility] CPT-4: 37643 04/16/2017 06143 EST. PATIENT, LEVEL III Diagnosis: Left lower quadrant pain[ICD10: R10.32] Aditi Dunham MD, [facility] CPT-4: 82852 02/10/2017 ([id number]) 87109 EST. PATIENT, LEVEL III Diagnosis: Pain in thoracic spine[ICD10: M54.6] Diagnosis: Other muscle spasm[ICD10: M62.838] Tavia Dunham MD, [facility] CPT- 4: 14884 02/02/2017 ([id number]) 30368 EST. PATIENT, LEVEL IV Diagnosis: Other acute pancreatitis without necrosis or infection[ICD10: K85.80] Diagnosis: Epigastric pain[ICD10: R10.13] Diagnosis: Type 2 diabetes mellitus without complications[ICD10: E11.9] Tavia Dunham MD, [facility] CPT-4: 06320 01/27/2017 [id number] EST. PATIENT, LEVEL IV Diagnosis: Essential (primary) hypertension[ICD10: I10] Diagnosis: Type 1 diabetes mellitus without complications[ICD10: E10.9] Diagnosis: Other specified hypothyroidism[ICD10: E03.8] Diagnosis: Bilateral primary osteoarthritis of hip[ICD10: M16.0] Diagnosis: Actinic keratosis[ICD10: L57.0] Aditi Dunham MD, [facility] CPT-4: 79415 11/07/2016 [id number] EST. PATIENT, LEVEL III Diagnosis: Other acute sinusitis[ICD10: J01.80] Diagnosis: Other allergic rhinitis[ICD10: J30.89] Diagnosis: Cough[ICD10: R05] Aditi Dunham MD, [facility] CPT-4: 29756 03/26/2016 ([id number]) 94891 EST. PATIENT, LEVEL IV Diagnosis: Essential (primary) hypertension[ICD10: I10] Diagnosis: Pure hyperglyceridemia[ICD10: E78.1] Tavia Dunham MD, [facility] CPT- 4: 38160 12/13/2015 ([id number]) 92099 EST. PATIENT, LEVEL III Diagnosis: Essential (primary) hypertension[ICD10: I10] Diagnosis: (Idiopathic) normal pressure hydrocephalus[ICD10: G91.2] Tavia Dunham MD, [facility] CPT-4: 37843 08/15/2015 11430 EST. PATIENT, LEVEL III Diagnosis: Other acute nonsuppurative otitis media, right ear[ICD10: H65.191] Diagnosis: Acute upper respiratory infection, unspecified[ICD10: J06.9] Aditi uDnham MD, [facility] CPT-4: 86827 06/13/2015 ([id number]) [id number] EST. PATIENT, LEVEL III Diagnosis: Acute recurrent maxillary sinusitis[ICD10: J01.01] Diagnosis: Allergic rhinitis due to pollen[ICD10: J30.1] Kaylan Dunham MD, [facility] CPT-4: 47208 06/07/2015 ([id number]) [id number] EST. PATIENT, LEVEL IV Diagnosis: (Idiopathic) normal pressure hydrocephalus[ICD10: G91.2] Diagnosis: Essential (primary) hypertension[ICD10: I10] Diagnosis: Dizziness and giddiness[ICD10: R42] Diagnosis: Nausea with vomiting, unspecified[ICD10: R11.2] Kaylan Dunham MD, [facility] CPT-4: 81847 03/13/2015 [id number] EST. PATIENT, LEVEL III Diagnosis: Acute sinusitis, unspecified[ICD10: J01.90] Diagnosis: Allergic rhinitis, unspecified[ICD10: J30.9] Tavia Dunham MD, [facility] CPT-4: 54921 12/07/2014 ([id number]) [id number] EST. PATIENT, LEVEL IV Diagnosis: ESSENTIAL HYPERTENSION[ICD9: 401.9] Diagnosis: DIABETES TYPE II[ICD9: 250.00] Diagnosis: NPH (normal pressure hydrocephalus)[ICD9: 331.5] Diagnosis: Hypertriglyceridemia[ICD9: 272.1] Kaylan Dunham MD, [facility] CPT- 4: 07911 09/07/2014 ([id number]) OFFICE/OUTPATIENT VISIT NEW Diagnosis: DIABETES TYPE II[ICD9: 250.00] Diagnosis: ESSENTIAL HYPERTENSION[ICD9: 401.9] Diagnosis: NPH (normal pressure hydrocephalus)[ICD9: 331.5] Diagnosis: Abnormal gait[ICD9: 781.2] Diagnosis: VITAMIN D DEFICIENCY[ICD9: 268.9] Tavia Dunham MD, [facility] CPT- 4: 34829 08/07/2014 Plan of Care Planned Activity Notes [...] 03/11/2018 Care Plan: Referral Order SNOMED-CT : [id number] Pending 03/11/2018 Visit Plan: Parasthesia - ongoing for about a month - will send RX and refer pt for EMG - The pt is to use prn antiinflammatories to manage acute pain. The patient is to call the office if the pain is worsening or does not improve. 02/17/2018 Appointment: Aditi Hamilton WPtel: [facility] (15 min) Moderate 02/17/2018 Patient Education: [...] warmth, discharge. 12/21/2017 Appointment: Aditi Hamilton WPtel: [facility]5 [facility] (15 min) Moderate 12/21/2017 Patient Education: Patient Medication Summary Completed 12/21/2017 Appointment: Tavia Dunham WPtel: [facility]0 [facility]66[facility] (15 min) Moderate 12/02/2017 Visit Plan: [...] WPtel: [phone] [facility] [place] (15 min) Moderate 11/30/2017 Patient Education: Patient Medication Summary Completed 11/30/2017 Care Plan: Comp Metabolic Pending 11/30/2017 Care Plan: Cbc With Differential Pending 11/30/2017 Care Plan: %Hba1C LOINC : 36555-2 Pending 11/30/2017 Care Plan: Lipid Pending 11/30/2017 Care Plan: Tsh Pending 11/30/2017 Care Plan: Free T4 Pending 11/30/2017 Appointment: Tavia Dunham WPtel: [phone] [facility] [place] (15 min) Moderate 11/26/2017 Appointment: Kaylan Melendez WPtel: [phone] [phone] [place] (30 min) Complex 08/13/2017 Appointment: Tavia Dunham WPtel: [phone] [facility] [place] (15 min) Moderate 08/04/2017 Appointment: Tavia Dunham WPtel: [phone] [facility] [place] (15 min) Moderate 07/20/2017 Visit Plan: [...] today 05/28/2017 [phone] ([facility] Complex 05/28/2017 Patient Education: Patient [...] pharmacy. 04/16/2017 Appointment: Tavia Dunham WPtel: [phone] [facility] (15 min) Moderate 04/16/2017 Patient Education: Patient [...] or concerns. 02/10/2017 Appointment: [facility] Hamilton [phone] (15 min) Moderate 02/10/2017 Patient Education: Patient Medication Summary Completed 02/10/2017 Patient Education: Obesity Completed 02/10/2017 Visit Plan: Pain in Thoracic spine with muscle spasm - ibuprofen 600mg three times daily x 3 days, rx for cyclobenzaprine. 02/02/2017 Appointment: Tavia Dunham WPtel: [facility] [place] (15 min) Moderate 02/02/2017 Patient Education: [...] labs today. 01/27/2017 Appointment: [phone] (15 min) Moderate 01/27/2017 Patient [...] pain symptoms. 11/07/2016 Appointment: Ad[facility] Hamilton [facility]el[phone] (30 min) Complex 11/07/2016 Patient Education: [...] spray. 03/26/2016 Appointment: Ad[facility] Hamilton [facility]el[phone] (30 min) Complex 03/26/2016 Patient Education: [...] medications. 12/13/2015 Appointment: [phone] (15 min) Moderate 12/13/2015 Patient [...] deficiency - start on supplement. 08/07/2014 Appointment: Tavai Dunham WPtel: [facility] [place] ([place] New Patient 08/07/2014 [...]
--- OUTSIDE RECORDS SUMMARY | 2018-10-08 11:38 | XMS REPORT | CCD ---
Author Author [facility] Organization [facility] Address [address] [place] [address] Phone Care Team Providers Care Sales Commissions Analyst Name Role Phone PP Unavailable CCM Unavailable Summary Purpose Interface Exchange Insurance Providers Payer name Policy type / Coverage type Covered green party ID Effective Begin Date Effective End Date Blue Cross Blue [facility] Blue Cross/Blue [facility] [id number] Unknown Family history Mother Diagnosis Age At Onset Cancer Unknown Arthritis Unknown Depression Unknown Hyperlipidemia Unknown Diabetes mellitus Type 2 Unknown Social History Social History Element Codes Description Effective Dates Marital status Unknown [place] 08/07/2014 Number of children Unknown 0 08/07/2014 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[employer] 08/07/[address]: 602187605 Never smoker 08/07/[address]: 938122570 Never drinks alcohol 08/07/2014 Allergies, Adverse Reactions, Alerts Substance Reaction Codes Entered Date Inactivated Date Status CODEINE emesis RxNorm: 2670 08/07/2014 No Inactive Date Active Past Medical History Illness Codes Condition Status Onset Date Resolved Date Paresthesia of skin ICD- 9: 782.0 ICD-10: R20.2 Active 02/17/2018 Unknown Pain in right shoulder ICD-9: 719.41 ICD-10: M25.511 Active 12/21/2017 Unknown Rash and other nonspecific skin eruption ICD-9: 782.1 ICD-10: R21 Active 12/21/2017 Unknown Essential (primary) hypertension ICD-9: 401.9 ICD-10: I10 Active 08/06/2014 Unknown Localized edema ICD-9: 782.3 ICD-10: R60.0 [...] Problems Condition Codes Effective Dates Condition Status Paresthesia of skin ICD- 9: 782.0 ICD-10: R20.2 02/17/2018 Active Pain in right shoulder ICD-9: 719.41 ICD-10: M25.511 12/21/2017 Active Rash and other nonspecific skin eruption ICD-9: 782.1 ICD-10: R21 12/21/2017 Active Essential (primary) hypertension ICD-9: 401.9 ICD-10: I10 08/06/2014 Active Localized edema ICD-9: 782.3 ICD-10: R60.0 [...] Start Date Stop Date Status Fill Instructions pravastatin 40 mg tablet RxNorm: 557955 1 Tablet(s) PO daily take with coenzyme q 10 daily 03/03/2018 02/25/2019 Active Levemir FlexTouch U-100 Insulin 100 unit/mL (3 mL) subcutaneous pen RxNorm: 589794 Unit(s) INJECT 25 UNITS SUBCUTANEOUSLY TWICE DAILY 03/03/2018 06/30/2018 Active pravastatin 10 mg tablet RxNorm: 810101 1 Tablet(s) PO daily take with coenzyme q 10 daily 02/26/2018 03/02/2018 Inactive prednisone 20 mg tablet RxNorm: 613227 2 Tablet(s) PO daily 02/17/2018 02/21/2018 Inactive levothyroxine 125 mcg tablet RxNorm: 949087 TAKE 1 TABLET BY MOUTH ONCE DAILY 01/11/2018 No Stop Date Active cyclobenzaprine 5 mg tablet RxNorm: 855715 1 Tablet(s) PO TID as needed 12/28/2017 01/11/2018 Inactive Zorvolex 35 mg capsule RxNorm: 8297302 1 Capsule(s) PO TID as needed 12/25/2017 05/23/2018 Active Levemir FlexTouch U-100 Insulin 100 unit/mL (3 mL) subcutaneous pen RxNorm: 766248 INJECT 2O UNITS SUBCUTANEOUSLY TWICE DAILY 12/21/2017 03/02/2018 Inactive cyclobenzaprine 5 mg tablet RxNorm: 415299 1 Tablet(s) PO TID as needed 12/21/2017 12/25/2017 Inactive doxycycline hyclate 100 mg capsule RxNorm: 5616739 1 Capsule(s) PO BID 12/21/2017 12/30/2017 Inactive venlafaxine ER 150 mg capsule,extended release 24 hr RxNorm: 366174 TAKE 1 CAPSULE BY MOUTH ONCE DAILY 12/10/2017 No Stop Date Active Zithromax Z-Kulwant 250 mg tablet RxNorm: 491576 1 Tablet(s) PO UD 12/03/2017 No Stop Date Active z pack as directed Singulair 10 mg tablet RxNorm: 898788 1 Tablet(s) PO daily 12/03/2017 12/02/2017 Inactive Singulair 10 mg tablet RxNorm: 322654 1 Tablet(s) PO daily 12/03/2017 01/01/2018 Inactive Kenalog 40 mg/mL suspension for injection RxNorm: 3879359 1 Milliliter(s) Inj 11/30/2017 11/30/2017 Inactive prednisone 20 mg tablet RxNorm: 361690 2 Tablet(s) PO daily 11/30/2017 12/04/2017 Inactive Augmentin 875 mg-125 mg tablet RxNorm: 552886 1 Tablet(s) PO BID 11/27/2017 11/26/2017 Inactive Augmentin 875 mg-125 mg tablet RxNorm: 920064 1 Tablet(s) PO BID 11/27/2017 12/03/2017 Inactive Zorvolex 35 mg capsule RxNorm: 8552190 1 Capsule(s) PO TID as needed 11/09/2017 12/24/2017 Inactive hydrochlorothiazide 25 mg tablet RxNorm: 496463 1 Tablet(s) PO daily 10/22/2017 02/18/2018 Inactive enalapril maleate 5 mg tablet RxNorm: 084784 1 Tablet(s) PO daily TAKE ONE TABLET BY MOUTH ONCE DAILY 08/21/2017 02/16/2018 Inactive Levemir FlexTouch U-100 Insulin 100 unit/mL (3 mL) subcutaneous pen RxNorm: 610169 20 Unit(s) SQ BID 07/30/2017 12/20/2017 Inactive levothyroxine 125 mcg tablet RxNorm: 557893 TAKE ONE TABLET BY MOUTH ONCE DAILY 06/29/2017 01/10/2018 Inactive venlafaxine ER 150 mg capsule,extended release 24 hr RxNorm: 790582 1 Capsule(s) PO daily TAKE ONE CAPSULE BY MOUTH ONCE DAILY 06/08/2017 12/04/2017 Inactive prednisone 20 mg tablet RxNorm: 802482 1 Tablet(s) PO daily 06/02/2017 06/06/2017 Inactive prednisone 20 mg tablet RxNorm: 980599 1 Tablet(s) PO daily 06/01/2017 06/05/2017 Inactive Kenalog 40 mg/mL suspension for injection RxNorm: 8804195 1 Milliliter(s) Inj 05/28/2017 05/28/2017 Inactive cefdinir 300 mg capsule RxNorm: 199397 1 Capsule(s) PO BID 05/28/2017 06/03/2017 Inactive ceftriaxone 500 mg solution for injection RxNorm: 4195861 1 Inj 05/28/2017 05/28/2017 Inactive prednisone 20 mg tablet RxNorm: 742726 1 Tablet(s) PO daily 05/28/2017 05/31/2017 Inactive Keflex 500 mg capsule RxNorm: 619894 1 Capsule(s) PO TID 05/26/2017 06/01/2017 Inactive Keflex 500 mg capsule RxNorm: 561132 1 Capsule(s) PO TID 05/26/2017 05/25/2017 Inactive hydrocodone 10 mg-chlorpheniramine 8 mg/5 mL oral susp extend.rel 12hr RxNorm: 4795566 5-10 Milliliter(s) PO TID as needed 04/16/2017 No Stop Date Active Tussionex Pennkinetic ER 10 mg-8 mg/5 mL suspension,extended release RxNorm: 3940564 5 Milliliter(s) PO BID 04/16/2017 04/27/2017 Inactive Zithromax Z-Kulwant 250 mg tablet RxNorm: 055135 1 Tablet(s) PO UD 03/25/2017 04/15/2017 Inactive z pack as directed enalapril maleate 5 mg tablet RxNorm: 721737 TAKE ONE TABLET BY MOUTH ONCE DAILY 02/26/2017 08/20/2017 Inactive Levemir FlexTouch 100 unit/mL (3 mL) subcutaneous insulin pen RxNorm: 675754 20 Unit(s) SQ BID 02/10/2017 07/11/2017 Inactive Zorvolex 35 mg capsule RxNorm: 7307148 1 Capsule(s) PO TID as needed 02/10/2017 11/08/2017 Inactive valacyclovir 1 gram tablet RxNorm: 319494 1 Tablet(s) PO TID 02/10/2017 02/16/2017 Inactive Levemir FlexTouch 100 unit/mL (3 mL) subcutaneous insulin pen RxNorm: 736713 20 Unit(s) SQ BID 02/04/2017 02/09/2017 Inactive cyclobenzaprine 5 mg tablet RxNorm: 997747 1 Tablet(s) PO qhs x 3 nights and TID as needed muscle spasms 02/02/2017 No Stop Date Active levothyroxine 125 mcg tablet RxNorm: 550992 TAKE ONE TABLET BY MOUTH ONCE DAILY 12/08/2016 06/05/2017 Inactive venlafaxine ER 150 mg capsule,extended release 24 hr RxNorm: 290339 TAKE ONE CAPSULE BY MOUTH ONCE DAILY 12/01/2016 05/29/2017 Inactive Zorvolex 35 mg capsule RxNorm: 5539685 1 Capsule(s) PO TID as needed do not take meloxicam at the same time 11/07/2016 No Stop Date Active enalapril maleate 5 mg tablet RxNorm: 685102 TAKE ONE TABLET BY MOUTH ONCE DAILY 10/31/2016 12/29/2016 Inactive meloxicam 15 mg tablet RxNorm: 650776 TAKE ONE TABLET BY MOUTH ONCE DAILY 10/30/2016 04/27/2017 Inactive meloxicam 15 mg tablet RxNorm: 256070 TAKE ONE TABLET BY MOUTH ONCE DAILY 10/24/2016 10/29/2016 Inactive enalapril maleate 5 mg tablet RxNorm: 892764 TAKE ONE TABLET BY MOUTH ONCE DAILY 10/24/2016 10/30/2016 Inactive venlafaxine ER 150 mg capsule,extended release 24 hr RxNorm: 700406 TAKE ONE CAPSULE BY MOUTH ONCE DAILY 06/16/2016 11/12/2016 Inactive meloxicam 15 mg tablet RxNorm: 266117 TAKE ONE TABLET BY MOUTH ONCE DAILY 06/09/2016 10/06/2016 Inactive enalapril maleate 5 mg tablet RxNorm: 733685 TAKE ONE TABLET BY MOUTH ONCE DAILY 06/02/2016 09/29/2016 Inactive Zithromax Z-Kulwant 250 mg tablet RxNorm: 916459 1 Tablet(s) PO UD 05/21/2016 06/15/2016 Inactive levothyroxine 125 mcg tablet RxNorm: 912055 Tablet(s) TAKE ONE TABLET BY MOUTH ONCE DAILY 04/15/2016 10/11/2016 Inactive Levaquin 500 mg tablet RxNorm: 698901 1 Tablet(s) PO daily 04/03/2016 04/09/2016 Inactive Levaquin 500 mg tablet RxNorm: 520506 1 Tablet(s) PO daily 04/03/2016 04/02/2016 Inactive prednisone 20 mg tablet RxNorm: 887611 2 Tablet(s) PO daily 03/28/2016 04/01/2016 Inactive Zithromax Z-Kulwant 250 mg tablet RxNorm: 478024 1 Tablet(s) PO UD 03/26/2016 03/30/2016 Inactive zpack Kenalog 40 mg/mL suspension for injection RxNorm: 5237736 Milliliter(s) Inj 03/26/2016 03/26/2016 Inactive Zofran ODT 4 mg disintegrating tablet RxNorm: 010583 DISSOLVE ONE TABLET IN MOUTH EVERY 6 HOURS NEEDED 02/22/2016 02/29/2016 Inactive venlafaxine ER 150 mg capsule,extended release 24 hr RxNorm: 456581 TAKE ONE CAPSULE BY MOUTH ONCE DAILY 02/18/2016 06/15/2016 Inactive meloxicam 15 mg tablet RxNorm: 979646 TAKE ONE TABLET BY MOUTH ONCE DAILY 02/04/2016 06/02/2016 Inactive aspirin 81 mg chewable tablet RxNorm: 795450 1 Tablet(s) PO daily 12/13/2015 12/06/2016 Inactive biotin 2,500 mcg tablet RxNorm: 802538 1 Tablet(s) PO daily 12/13/2015 09/07/2016 Inactive hydrochlorothiazide 25 mg tablet RxNorm: 270499 1 Tablet(s) PO daily 12/13/2015 04/10/2016 Inactive enalapril maleate 5 mg tablet RxNorm: 875664 TAKE ONE TABLET BY MOUTH ONCE DAILY 11/22/2015 05/19/2016 Inactive venlafaxine ER 150 mg capsule,extended release 24 hr RxNorm: 251678 TAKE ONE CAPSULE BY MOUTH ONCE DAILY 11/14/2015 02/11/2016 Inactive levothyroxine 125 mcg tablet RxNorm: 066482 Tablet(s) TAKE ONE TABLET BY MOUTH ONCE DAILY 11/06/2015 04/14/2016 Inactive levothyroxine 125 mcg tablet RxNorm: 936882 Tablet(s) TAKE ONE TABLET BY MOUTH ONCE DAILY 08/06/2015 11/03/2015 Inactive meclizine 25 mg tablet RxNorm: 588557 1/2-1 Tablet(s) PO Q6 as needed 07/16/2015 No Stop Date Active Flonase Allergy Relief 50 mcg/actuation nasal spray,suspension RxNorm: 1 [place] NASAL daily 06/13/2015 No Stop Date Active prednisone 20 mg tablet RxNorm: 799404 2 Tablet(s) PO daily 06/13/2015 06/17/2015 Inactive Augmentin 875 mg-125 mg tablet RxNorm: 195103 1 Tablet(s) PO BID 06/13/2015 06/19/2015 Inactive Zithromax Z-Kulwant 250 mg tablet RxNorm: 746606 1 Tablet(s) PO UD 06/07/2015 06/11/2015 Inactive zpack Kenalog 40 mg/mL suspension for injection RxNorm: 2051437 Milliliter(s) Inj 06/07/2015 06/07/2015 Inactive venlafaxine ER 150 mg capsule,extended release 24 hr RxNorm: 743373 TAKE ONE CAPSULE BY MOUTH ONCE DAILY 05/14/2015 11/09/2015 Inactive Augmentin 500 mg-125 mg tablet RxNorm: 518068 1 Tablet(s) PO TID 04/25/2015 05/04/2015 Inactive Augmentin 500 mg-125 mg tablet RxNorm: 156706 1 Tablet(s) PO TID 04/25/2015 04/24/2015 Inactive pravastatin 10 mg tablet RxNorm: 771664 1 Tablet(s) PO daily take with coenzyme q 10 daily 03/21/2015 03/20/2015 Inactive DC crestor pravastatin 10 mg tablet RxNorm: 601726 1 Tablet(s) PO daily take with coenzyme q 10 daily 03/21/2015 07/18/2015 Inactive DC crestor Zofran ODT 4 mg disintegrating tablet RxNorm: 603756 1 Tablet(s) PO Q6 PRN 03/13/2015 02/21/2016 Inactive levothyroxine 125 mcg tablet RxNorm: 418793 TAKE ONE TABLET BY MOUTH ONCE DAILY 02/13/2015 08/05/2015 Inactive meloxicam 15 mg tablet RxNorm: 606382 1 Tablet(s) PO daily 01/28/2015 01/22/2016 Inactive Zofran 4 mg tablet RxNorm: 312638 1 Tablet(s) PO Q6-8H as needed nausea 01/24/2015 No Stop Date Active Trulicity 1.5 mg/0.5 mL subcutaneous pen injector RxNorm: 3516071 0.75mg Milliliter(s) SQ QW 01/10/2015 No Stop Date Active venlafaxine ER 150 mg capsule,extended release 24 hr RxNorm: 010046 1 Capsule(s) PO daily 01/10/2015 05/09/2015 Inactive enalapril maleate 5 mg tablet RxNorm: 734658 1 Tablet(s) PO daily 01/04/2015 07/02/2015 Inactive amoxicillin 500 mg tablet RxNorm: 996446 1 Tablet(s) PO BID 12/07/2014 12/06/2014 Inactive Probiotic & Acidophilus 300 million cell-250 mg capsule RxNorm: 1 Capsule(s) PO BID 12/07/2014 12/16/2014 Inactive amoxicillin 500 mg tablet RxNorm: 875427 1 Tablet(s) PO BID 12/07/2014 12/16/2014 Inactive Kenalog 40 mg/mL suspension for injection RxNorm: 4129519 1 Milliliter(s) Inj 12/07/2014 12/07/2014 Inactive meloxicam 15 mg tablet RxNorm: 464608 1 Tablet(s) PO daily 10/24/2014 10/23/2014 Inactive meloxicam 15 mg tablet RxNorm: 191142 1 Tablet(s) PO daily 10/24/2014 01/27/2015 Inactive azithromycin 500 mg tablet RxNorm: 564847 1 Tablet(s) PO daily 10/11/2014 10/15/2014 Inactive azithromycin 500 mg tablet RxNorm: 840110 1 Tablet(s) PO daily 10/11/2014 10/10/2014 Inactive levothyroxine 125 mcg tablet RxNorm: 953690 1 Tablet(s) PO daily 10/06/2014 02/02/2015 Inactive enalapril maleate 5 mg tablet RxNorm: 919418 1 Tablet(s) PO daily 08/29/2014 12/26/2014 Inactive enalapril maleate 5 mg tablet RxNorm: 688712 1 Tablet(s) PO daily 08/25/2014 08/28/2014 Inactive Medroxy oral RxNorm: 4332021 oral No Start Date Active Vitamin D3 5,000 unit tablet RxNorm: 976635 1 Tablet(s) PO daily No Start Date Active fluconazole 200 mg tablet RxNorm: 536802 Tablet(s) PO No Start Date Active estradiol 2 mg tablet RxNorm: 708002 1 Tablet(s) PO daily No Start Date Active fenofibrate nanocrystallized 145 mg tablet RxNorm: 209378 1 Tablet(s) PO daily No Start Date Active hydrocodone 5 mg-acetaminophen 325 mg tablet RxNorm: 118290 1-2 Tablet(s) PO Q4-6H as needed No Start Date Active enalapril maleate 5 mg tablet RxNorm: 297237 1 Tablet(s) PO daily No Start Date 08/24/2014 Inactive glimepiride 4 mg tablet RxNorm: 269740 1 Tablet(s) PO daily No Start Date 01/26/2017 Inactive meclizine 25 mg tablet RxNorm: 216776 1/2-1 Tablet(s) PO Q6 as needed No Start Date 07/15/2015 Inactive Trulicity 0.75 mg/0.5 mL subcutaneous pen injector RxNorm: 3953258 0.75mg Milliliter(s) SQ QW No Start Date 01/09/2015 Inactive metformin 1,000 mg tablet RxNorm: 657781 Tablet(s) PO BID No Start Date 01/26/2017 Inactive venlafaxine ER 150 mg capsule,extended release 24 hr RxNorm: 367204 1 Capsule(s) PO daily No Start Date 01/09/2015 Inactive meloxicam 15 mg tablet RxNorm: 537918 1 Tablet(s) PO daily No Start Date 10/23/2014 Inactive levothyroxine 125 mcg tablet RxNorm: 104366 1 Tablet(s) PO daily No Start Date 10/05/2014 Inactive Levemir FlexTouch 100 unit/mL (3 mL) subcutaneous insulin pen RxNorm: 197259 15 Unit(s) SQ daily No Start Date 02/03/2017 Inactive Zithromax Z-Kulwant 250 mg tablet RxNorm: 767283 1 Tablet(s) PO UD No Start Date 05/20/2016 Inactive Fish Oil 1,000 mg capsule RxNorm: 1 Capsule(s) PO BID No Start Date 11/04/2016 Inactive Zofran 4 mg tablet RxNorm: 929494 1 Tablet(s) PO Q6-8H as needed nausea No Start Date 01/23/2015 Inactive Crestor 10 mg tablet RxNorm: 623591 1 Tablet(s) PO daily No Start Date 03/20/2015 Inactive Medication Administered Medication Codes Instructions Start Date Status Kenalog 40 mg/mL suspension for injection RxNorm: 7784768 1Milliliter 11/30/2017 No longer Active Kenalog 40 mg/mL suspension for injection RxNorm: 5211687 1Milliliter 05/28/2017 No longer Active ceftriaxone 500 mg solution for injection RxNorm: 3281021 1 05/28/2017 No longer Active Kenalog 40 mg/mL suspension for injection RxNorm: 3307990 Milliliter 03/26/2016 No longer Active Kenalog 40 mg/mL suspension for injection RxNorm: 5136524 Milliliter 06/07/2015 No longer Active Kenalog 40 mg/mL suspension for injection RxNorm: 9335594 1Milliliter 12/07/2014 No longer Active Immunizations Vaccine Codes Date Status Influenza CVX: 141 11/26/2017 completed Assessments Condition Codes Effective Dates Paresthesia of skin ICD-10: R20.2 ICD-9: 782.0 [...] quadrant pain ICD-10: R10.32 ICD-9: 789.04 02/10/2017 Other muscle spasm ICD-10: M62.838 ICD-9: 728.85 02/02/2017 Pain in thoracic spine ICD-10: M54.6 ICD-9: 724.1 02/02/2017 Type 2 diabetes mellitus without complications ICD-10: E11.9 ICD-9: 250.00 01/27/2017 Other acute pancreatitis without necrosis or infection ICD-10: K85.80 ICD-9: 577.0 01/27/2017 Epigastric pain ICD-10: R10.13 ICD-9: 789.06 01/27/2017 Bilateral primary osteoarthritis of hip ICD-10: M16.0 ICD-9: 715.95 11/07/2016 Type 1 diabetes mellitus without complications ICD-10: E10.9 ICD-9: 250.00 11/07/2016 Actinic keratosis ICD-10: L57.0 ICD-9: 702.0 11/07/2016 Essential (primary) hypertension ICD-10: I10 ICD-9: 401.9 11/07/2016 Other specified hypothyroidism ICD-10: E03.8 ICD-9: [...] Visit Reason For Visit Effective Dates Notes hand pain 02/17/2018 shoulder pain 12/21/2017 sinus congestion 11/30/2017 sinus congestion 05/28/2017 headache 05/19/2017 cough 04/16/2017 flank pain 02/10/2017 back pain 02/02/2017 Hospital Follow Up 01/27/2017 hypertension 11/07/2016 cough 03/26/2016 hypertension 12/13/2015 Hospital Follow Up 08/15/2015 cough 06/13/2015 earache 06/07/2015 hypertension 03/13/2015 with nausea and vomiting headache 12/07/2014 headache 09/07/2014 headache 08/07/2014 Results Observation Observation Code Item Item Code Result Date CHEM 14 [id number] AST TNP:Lab Request 01/27/2017 CHEM 14 [id number] ALT TNP:Lab Request 01/27/2017 CHEM 14 [id number] BUN TNP:Lab Request 01/27/2017 CHEM 14 [id number] ALBUMIN TNP:Lab Request 01/27/2017 CHEM 14 [id number] CHLORIDE TNP:Lab Request 01/27/2017 CHEM 14 [id number] Bili Total TNP:Lab Request 01/27/2017 CHEM 14 [id number] ALK PHOS TNP:Lab Request 01/27/2017 CHEM 14 [id number] SODIUM TNP:Lab Request 01/27/2017 CHEM 14 [id number] CREATININE TNP:Lab Request 01/27/2017 CHEM 14 [id number] CALCIUM TNP:Lab Request 01/27/2017 CHEM 14 [id number] POTASSIUM TNP:Lab Request 01/27/2017 CHEM 14 [id number] TOTAL PROTEIN TNP:Lab Request 01/27/2017 CHEM 14 [id number] GLUCOSE TNP:Lab Request 01/27/2017 CHEM 14 [id number] Bicarbonate TNP:Lab Request 01/27/2017 CHEM 14 [id number] AGAP TNP:Lab Request 01/27/2017 AMYLASE [id number] Amylase Lvl TNP:Lab Request 01/27/2017 LIPID GRP CHOLESTEROL 273 mg/dL 2016 LIPID GRP Triglyceride 583 mg/dL 2016 LIPID GRP HDL CHOLESTEROL 48 mg/dL 2016 LIPID GRP Chol/HDL Ratio 5.69 ratio 2016 LIPID GRP NON-HDL Chol 225 mg/dL 2016 LIPID GRP LDL Cholesterol N/A Trig >400 2016 A1C HPLC 9635865 Hgb A1c 29818-9 7.3 % 2016 TSH [id number] TSH 1.340 uIU/mL 2016 FREE T4 5781002 T4 Free 1.60 ng/dL 2016 MEAN GLUC 1575897 Calc Mean Gluc 163 mg/dL 2016 GFR CALC 5647634 GFR Non Afr Amr >60 mL/min 2016 GFR CALC 4671671 GFR Afr Amr >60 mL/min 2016 CBC 4608793 WBC 8.1 10e9/L 2016 CBC 2429524 RBC 4.41 10e12/L 2016 CBC 5436493 HEMOGLOBIN 13.2 g/dL 2016 CBC 8590383 HEMATOCRIT 39.6 % 2016 CBC 8189065 MCV 89.8 fL 2016 CBC 1148142 MCH 29.9 pg 2016 CBC 7022805 MCHC 33.3 g/dL 2016 CBC 7826498 PLATELET COUNT 298 10e9/L 2016 CBC 5992822 Mean Plt Volume 10.5 fL 2016 CBC 4840681 Neut Auto 61.3 % 2016 CBC 1693118 Lymph Auto 26.3 % 2016 CBC 3175680 [place] Auto 7.7 % 2016 CBC 8374238 RDW 13.6 % 2016 CBC 0475476 Eos Auto 4.2 % 2016 CBC 4324068 Baso Auto 0.5 % 2016 CBC 4401732 Neutrophil Abs 4.97 10e9/L 2016 CBC 2812278 Lymphocyte Abs 2.13 10e9/L 2016 CBC 3166245 Monocyte Abs 0.62 10e9/L 2016 CBC 6019403 Eosinophil Abs 0.34 10e9/L 2016 CBC 2671321 RDW-SD 44.1 fL 2016 CBC 0693453 Basophil Abs 0.04 10e9/L 2016 CHEM 14 6907864 AST 19 U/L 2016 CHEM 14 8798587 ALT 26 U/L 2016 CHEM 14 8013053 BUN 20 mg/dL 2016 CHEM 14 [id number] ALBUMIN 4.1 g/dL 2016 CHEM 14 6779331 CHLORIDE 99 mmol/L 2016 CHEM 14 3121474 Bili Total 0.3 mg/dL 2016 CHEM 14 6855445 ALK PHOS 55 U/L 2016 CHEM 14 5180797 SODIUM 135 mmol/L 2016 CHEM 14 9048168 CREATININE 0.87 mg/dL 2016 CHEM 14 1137533 CALCIUM 9.3 mg/dL 2016 CHEM 14 3396582 POTASSIUM 4.0 mmol/L 2016 CHEM 14 8540192 TOTAL PROTEIN 7.0 g/dL 2016 CHEM 14 7430681 GLUCOSE 149 mg/dL 2016 CHEM 14 1483040 Bicarbonate 26 mmol/L 2016 CHEM 14 6497458 AGAP 10 mmol/L 2016 Review of Systems System Result Effective Dates Constitutional No recent illness 02/17/2018 Constitutional No [...] Result Effective Dates Notes Full Exam - Orthopedics Constitutional general appearance [...] clear 09/07/2014 None Full Exam - General 1995 Ears/Nose/Throat oral cavity/pharynx/larynx Overall: oropharyngeal mucosa clear 09/07/2014 None Full Exam - General 1995 Ears/Nose/Throat oral cavity/pharynx/larynx Overall: hypopharynx benign 09/07/2014 [...] 4: J0696 05/28/2017 THER/PROPH/DIAG INJ SC/IM CPT-4: 47297 05/19/2017 KETOROLAC TROMETHAMINE INJ CPT-4: J1885 05/19/2017 TRIAMCINOLONE ACET INJ NOS CPT-4: J3301 03/26/2016 TRIAMCINOLONE ACET INJ NOS CPT-4: J3301 06/07/2015 THER/PROPH/DIAG INJ SC/IM CPT-4: 82585 12/07/2014 TRIAMCINOLONE ACET INJ NOS CPT-4: J3301 12/07/2014 Vital Signs Date Vital 02/17/2018 Blood Pressure 1: 132/76 Code: 8480-6 BMI: 33.5 Code: 69823-4 Heart Rate 1: 92 bpm Height: 5'7" SpO2: 98% Weight: 214 lbs 12/21/2017 Blood Pressure 1: 154/78 Code: 8480-6 BMI: 33.5 Code: 36558-4 Heart Rate 1: 93 bpm Height: 5'7" SpO2: 96% Weight: 214 lbs 11/30/2017 Blood Pressure 1: 148/88 Code: 8480-6 BMI: 33.5 Code: 29787-6 Heart Rate 1: 80 bpm Height: 5'7" SpO2: 97% Temperature: 36.9 (C) / 98.5 (F) Weight: 214 lbs 05/28/2017 Blood Pressure 1: 128/70 Code: 8480-6 BMI: 31.3 Code: 49768-8 Heart Rate 1: 103 bpm Height: 5'7" SpO2: 98% Temperature: 36.7 (C) / 98.1 (F) Weight: 200 lbs 05/19/2017 Blood Pressure 1: 150/72 Code: 8480-6 04/16/2017 Blood Pressure 1: 146/88 Code: 8480-6 BMI: 31.3 Code: 17764-0 Heart Rate 1: 96 bpm Height: 5'7" SpO2: 94% Temperature: 37.2 (C) / 99.0 (F) Weight: 200 lbs 02/10/2017 Blood Pressure 1: 132/72 Code: 8480-6 BMI: 31.3 Code: 83155-9 Heart Rate 1: 99 bpm Height: 5'7" SpO2: 97% Weight: 200 lbs 02/02/2017 Blood Pressure 1: 140/68 Code: 8480-6 BMI: 31.4 Code: 35176-3 Heart Rate 1: 82 bpm Height: 5'7" SpO2: 97% Weight: 200 lbs 8 oz 01/27/2017 Blood Pressure 1: 142/80 Code: 8480-6 BMI: 32.2 Code: 81610-6 Height: 5'7" Temperature: 37.2 (C) / 98.9 (F) Weight: 205 lbs 8 oz 11/07/2016 Blood Pressure 1: 148/82 Code: 8480-6 BMI: 32.7 Code: 79029-7 Heart Rate 1: 106 bpm Height: 5'7" SpO2: 97% Weight: 209 lbs 03/26/2016 Blood Pressure 1: 140/86 Code: 8480-6 Heart Rate 1: 90 bpm Height: SpO2: 97% Weight: 12/13/2015 Blood Pressure 1: 132/72 Code: 8480-6 BMI: 31.2 Code: 03896-6 Heart Rate 1: 84 bpm Height: 5'7" SpO2: 98% Weight: 199 lbs 08/15/2015 Blood Pressure 1: 138/88 Code: 8480-6 BMI: 32.1 Code: 45753-2 Heart Rate 1: 94 bpm Height: 5'7" SpO2: 97% Weight: 205 lbs 06/13/2015 Blood Pressure 1: 146/78 Code: 8480-6 Blood Pressure 1: 188/88 Code: 8480-6 BMI: 32.6 Code: 08636-0 Heart Rate 1: 97 bpm Height: 5'7" SpO2: 98% Weight: 208 lbs 06/07/2015 Blood Pressure 1: 128/82 Code: 8480-6 BMI: 32.4 Code: 85146-8 Heart Rate 1: 80 bpm Height: 5'7" SpO2: 99% Weight: 207 lbs 03/13/2015 Blood Pressure 1: 124/70 Code: 8480-6 BMI: 31.6 Code: 85248-5 Heart Rate 1: 103 bpm Height: 5'7" Respiratory Rate: 18 bpm SpO2: 97% Temperature: 36.6 (C) / 97.8 (F) Weight: 202 lbs 12/07/2014 Blood Pressure 1: 140/80 Code: 8480-6 BMI: 32.3 Code: 65176-7 Heart Rate 1: 97 bpm Height: 5'7" SpO2: 99% Weight: 206 lbs 09/07/2014 Blood Pressure 1: 132/78 Code: 8480-6 BMI: 31.2 Code: 55828-7 Heart Rate 1: 92 bpm Height: 5'7" Weight: 199 lbs 08/07/2014 Blood Pressure 1: 140/84 Code: 8480-6 Heart Rate 1: 96 bpm Height: 5'7" Weight: Functional Status No Functional Status data History of Present Illness Symptom Name Status Result Effective Date Notes Location on the left 02/17/2018 None Location [...] Location diffusely 09/07/2014 improvement with shunt placement- 6--- Dr Ruvalcaba in [place] did surgery headache Onset and Resolution ongoing [...] data Encounters Encounter Performer Location Codes Date 48403 EST. PATIENT, LEVEL III Diagnosis: Paresthesia of skin[ICD10: R20.2] Aditi Dunham MD, [facility] CPT-4: 75187 02/17/2018 [id number] EST. PATIENT, LEVEL IV Diagnosis: Pain in right shoulder[ICD10: M25.511] Diagnosis: Rash and other nonspecific skin eruption[ICD10: R21] Aditi Dunham MD, [facility] CPT-4: 23978 12/21/2017 [id number] EST. PATIENT, LEVEL IV Diagnosis: Other acute sinusitis[ICD10: J01.80] Diagnosis: Other allergic rhinitis[ICD10: J30.89] Diagnosis: Localized edema[ICD10: R60.0] Aditi Dunham MD, [facility] CPT-4: 51578 11/30/2017 ([id number]) [id number] EST. PATIENT, LEVEL III Diagnosis: Acute recurrent maxillary sinusitis[ICD10: J01.01] Diagnosis: Cough[ICD10: R05] Tavia Dunham MD, [facility] CPT-4: 92917 05/28/2017 ([id number]) [id number] EST. PATIENT, LEVEL III Diagnosis: Acute laryngopharyngitis[ICD10: J06.0] Diagnosis: Cough[ICD10: R05] Tavia Dunham MD, [facility] CPT-4: 73344 04/16/2017 [id number] EST. PATIENT, LEVEL III Diagnosis: Left lower quadrant pain[ICD10: R10.32] Aditi Dunham MD, [facility] CPT-4: 23512 02/10/2017 ([id number]) 63281 EST. PATIENT, LEVEL III Diagnosis: Pain in thoracic spine[ICD10: M54.6] Diagnosis: Other muscle spasm[ICD10: M62.838] Tavia Dunham MD [facility] CPT- 4: 56135 02/02/2017 ([id number]) 24143 EST. PATIENT, LEVEL IV Diagnosis: Other acute pancreatitis without necrosis or infection[ICD10: K85.80] Diagnosis: Epigastric pain[ICD10: R10.13] Diagnosis: Type 2 diabetes mellitus without complications[ICD10: E11.9] Tavia Dunham MD, [facility] CPT-4: 78484 01/27/2017 [id number] EST. PATIENT, LEVEL IV Diagnosis: Essential (primary) hypertension[ICD10: I10] Diagnosis: Type 1 diabetes mellitus without complications[ICD10: E10.9] Diagnosis: Other specified hypothyroidism[ICD10: E03.8] Diagnosis: Bilateral primary osteoarthritis of hip[ICD10: M16.0] Diagnosis: Actinic keratosis[ICD10: L57.0] Aditi Dunham MD, [facility] CPT-4: 94186 11/07/2016 59937 EST. PATIENT, LEVEL III Diagnosis: Other acute sinusitis[ICD10: J01.80] Diagnosis: Other allergic rhinitis[ICD10: J30.89] Diagnosis: Cough[ICD10: R05] Aditi Dunham MD, [facility] CPT-4: 10838 03/26/2016 [id number]) 54603 EST. PATIENT, LEVEL IV Diagnosis: Essential (primary) hypertension[ICD10: I10] Diagnosis: Pure hyperglyceridemia[ICD10: E78.1] Tavia Dunham MD, [facility] CPT- 4: 59420 12/13/2015 ([id number]) 45082 EST. PATIENT, LEVEL III Diagnosis: Essential (primary) hypertension[ICD10: I10] Diagnosis: (Idiopathic) normal pressure hydrocephalus[ICD10: G91.2] Tavia Dunham MD, [facility] CPT-4: 07254 08/15/2015 76255 EST. PATIENT, LEVEL III Diagnosis: Other acute nonsuppurative otitis media, right ear[ICD10: H65.191] Diagnosis: Acute upper respiratory infection, unspecified[ICD10: J06.9] Aditi Dunham MD, [facility] CPT-4: 34941 06/13/2015 ([id number]) 21995 EST. PATIENT, LEVEL III Diagnosis: Acute recurrent maxillary sinusitis[ICD10: J01.01] Diagnosis: Allergic rhinitis due to pollen[ICD10: J30.1] Kaylan Dunham MD, [facility] CPT-4: 15277 06/07/2015 ([id number]) 28764 EST. PATIENT, LEVEL IV Diagnosis: (Idiopathic) normal pressure hydrocephalus[ICD10: G91.2] Diagnosis: Essential (primary) hypertension[ICD10: I10] Diagnosis: Dizziness and giddiness[ICD10: R42] Diagnosis: Nausea with vomiting, unspecified[ICD10: R11.2] Kaylan Dunham MD, [facility] CPT-4: 01766 03/13/2015 42330 EST. PATIENT, LEVEL III Diagnosis: Acute sinusitis, unspecified[ICD10: J01.90] Diagnosis: Allergic rhinitis, unspecified[ICD10: J30.9] Tavia Dunham MD, [facility] CPT-4: 22695 12/07/2014 ([id number]) 02535 EST. PATIENT, LEVEL IV Diagnosis: ESSENTIAL HYPERTENSION[ICD9: 401.9] Diagnosis: DIABETES TYPE II[ICD9: 250.00] Diagnosis: NPH (normal pressure hydrocephalus)[ICD9: 331.5] Diagnosis: Hypertriglyceridemia[ICD9: 272.1] Kaylan Dunham MD, [facility] CPT- 4: 15131 09/07/2014 ([id number]) OFFICE/OUTPATIENT VISIT NEW Diagnosis: DIABETES TYPE II[ICD9: 250.00] Diagnosis: ESSENTIAL HYPERTENSION[ICD9: 401.9] Diagnosis: NPH (normal pressure hydrocephalus)[ICD9: 331.5] Diagnosis: Abnormal gait[ICD9: 781.2] Diagnosis: VITAMIN D DEFICIENCY[ICD9: 268.9] Tavia Dunham MD, [facility] CPT- 4: 39336 08/07/2014 Plan of Care Planned Activity Notes Codes Status Date Visit Plan: Parasthesia - ongoing for about a month - will send RX and refer pt for EMG - The pt is to use prn antiinflammatories to manage acute pain. The patient is to call the office if the pain is worsening or does not improve. 02/17/2018 App[facility]ment[phone] ([facility] min) Moderate 02/17/2018 Patient Education: Patient [...] warmth, discharge. 12/21/2017 Appointment: Aditi Hamilton WPtel: [phone] [facility] [place] (15 min) Moderate 12/21/2017 Patient Education: Patient Medication Summary Completed 12/21/2017 Appointment: Tavia Dunham WPtel: [facility] [place] (15 min) Moderate 12/02/2017 Visit Plan: [...] peripheral edema. 11/30/2017 Appointment: Aditi Hamilton WPtel: [address] [place], [place] [address] (15 min) Moderate 11/30/2017 Patient Education: Patient Medication Summary Completed 11/30/2017 Care Plan: Comp Metabolic Pending 11/30/2017 Care Plan: Cbc With Differential Pending 11/30/2017 Care Plan: %Hba1C LOINC : 45519-2 Pending 11/30/2017 Care Plan: Lipid Pending 11/30/2017 Care Plan: Tsh Pending 11/30/2017 Care Plan: Free T4 Pending 11/30/2017 Appointment: Tavia Dunham WPtel[facility] [place] [place] (15 min) Moderate 11/26/2017 Appointment: Kaylan Melendez WPtel: [facility] [phone] [place] (30 min) Complex 08/13/2017 Appointment: Tavia Dunham WPtel: [phone] [facility] [place] (15 min) Moderate 08/04/2017 Appointment: Tavia Dunham WPtel: [phone] [facility] [place] (15 min) Moderate 07/20/2017 Visit [...] shot today 05/28/2017 Appointment: Tavia Dunham WPtel: [facility] [place] [place] (30 min) Complex 05/28/2017 Patient [...] patient's pharmacy. 04/16/2017 Appointment: Tavia Dunham WPtel: [facility] [place] [facility] [place] (15 min) Moderate 04/16/2017 Patient [...] concerns. 02/10/2017 Appointment: Aditi Hamilton WPtel: [phone] [facility] [place] (15 min) Moderate 02/10/2017 Patient Education: Patient Medication Summary Completed 02/10/2017 Patient Education: Obesity Completed 02/10/2017 Visit Plan: Pain in Thoracic spine with muscle spasm - ibuprofen 600mg three times daily x 3 days, rx for cyclobenzaprine. 02/02/2017 Appointment: [place] [phone] ([facility] min) Moderate 02/02/2017 Patient Education: [...] today. 01/27/2017 Appointment: [phone] (15 min) Moderate 01/27/2017 Patient Education: [...] symptoms. 11/07/2016 Appointment: [facility] Hamilton [phone] ([facility] min) Complex 11/07/2016 Patient Education: Patient [...] spray. 03/26/2016 Appointment: Aditi Hamilton WPtel: [phone] [facility] (30 min) Complex 03/26/2016 Patient Education: Patient [...] medications. 12/13/2015 Appointment: Tavia Dunham WPtel: [address] [place] [address] (15 min) Moderate 12/13/2015 Patient Education: Patient [...] supplement. 08/07/2014 Appointment: Tavia Dunham WPtel: [address] [place] [address] [place] ([place]) New Patient 08/07/2014 Patient Education: [...]
--- OUTSIDE RECORDS SUMMARY | 2018-10-08 11:41 | XMS REPORT | CCD ---
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 Name Role Phone PP Unavailable CCM Unavailable Summary Purpose Interface Exchange Insurance Providers Payer name Policy type / Coverage type Covered alliance party ID Effective Begin Date Effective End Date Blue Cross Blue [facility] Blue Cross/Blue [facility] [id number] Unknown Family history Mother Diagnosis Age At Onset Cancer Unknown Arthritis Unknown Depression Unknown Hyperlipidemia Unknown Diabetes mellitus Type 2 Unknown Social History Social History Element Codes Description Effective Dates Marital status Unknown [place] 08/07/2014 Number of children Unknown 0 08/07/2014 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[employer] 08/07/[address]: 556072850 Never smoker 08/07/[address]: 566805064 Never drinks alcohol 08/07/2014 Allergies, Adverse Reactions, [...] Date Stop Date Status Fill Instructions pravastatin 10 mg tablet RxNorm: 698117 1 Tablet(s) PO daily take with coenzyme q 10 daily 02/26/2018 02/20/2019 Active prednisone 20 mg tablet RxNorm: 133199 2 Tablet(s) PO daily 02/17/2018 02/21/2018 Inactive levothyroxine 125 mcg tablet RxNorm: 904351 TAKE 1 TABLET BY MOUTH ONCE DAILY 01/11/2018 No Stop Date Active cyclobenzaprine 5 mg tablet RxNorm: 828875 1 Tablet(s) PO TID as needed 12/28/2017 01/11/2018 Inactive Zorvolex 35 mg capsule RxNorm: 3362367 1 Capsule(s) PO TID as needed 12/25/2017 05/23/2018 Active Levemir FlexTouch U-100 Insulin 100 unit/mL (3 mL) subcutaneous pen RxNorm: 261575 INJECT 2O UNITS SUBCUTANEOUSLY TWICE DAILY 12/21/2017 No Stop Date Active cyclobenzaprine 5 mg tablet RxNorm: 328769 1 Tablet(s) PO TID as needed 12/21/2017 12/25/2017 Inactive doxycycline hyclate 100 mg capsule RxNorm: 7833196 1 Capsule(s) PO BID 12/21/2017 12/30/2017 Inactive venlafaxine ER 150 mg capsule,extended release 24 hr RxNorm: 164986 TAKE 1 CAPSULE BY MOUTH ONCE DAILY 12/10/2017 No Stop Date Active Zithromax Z-Kulwant 250 mg tablet RxNorm: 330494 1 Tablet(s) PO UD 12/03/2017 No Stop Date Active z pack as directed Singulair 10 mg tablet RxNorm: 889577 1 Tablet(s) PO daily 12/03/2017 12/02/2017 Inactive Singulair 10 mg tablet RxNorm: 083424 1 Tablet(s) PO daily 12/03/2017 01/01/2018 Inactive Kenalog 40 mg/mL suspension for injection RxNorm: 1382807 1 Milliliter(s) Inj 11/30/2017 11/30/2017 Inactive prednisone 20 mg tablet RxNorm: 782624 2 Tablet(s) PO daily 11/30/2017 12/04/2017 Inactive Augmentin 875 mg-125 mg tablet RxNorm: 059145 1 Tablet(s) PO BID 11/27/2017 11/26/2017 Inactive Augmentin 875 mg-125 mg tablet RxNorm: 023806 1 Tablet(s) PO BID 11/27/2017 12/03/2017 Inactive Zorvolex 35 mg capsule RxNorm: 9220876 1 Capsule(s) PO TID as needed 11/09/2017 12/24/2017 Inactive hydrochlorothiazide 25 mg tablet RxNorm: 618883 1 Tablet(s) PO daily 10/22/2017 02/18/2018 Inactive enalapril maleate 5 mg tablet RxNorm: 795297 1 Tablet(s) PO daily TAKE ONE TABLET BY MOUTH ONCE DAILY 08/21/2017 02/16/2018 Inactive Levemir FlexTouch U-100 Insulin 100 unit/mL (3 mL) subcutaneous pen RxNorm: 001226 20 Unit(s) SQ BID 07/30/2017 12/20/2017 Inactive levothyroxine 125 mcg tablet RxNorm: 670831 TAKE ONE TABLET BY MOUTH ONCE DAILY 06/29/2017 01/10/2018 Inactive venlafaxine ER 150 mg capsule,extended release 24 hr RxNorm: 634799 1 Capsule(s) PO daily TAKE ONE CAPSULE BY MOUTH ONCE DAILY 06/08/2017 12/04/2017 Inactive prednisone 20 mg tablet RxNorm: 099398 1 Tablet(s) PO daily 06/02/2017 06/06/2017 Inactive prednisone 20 mg tablet RxNorm: 790507 1 Tablet(s) PO daily 06/01/2017 06/05/2017 Inactive Kenalog 40 mg/mL suspension for injection RxNorm: 0850379 1 Milliliter(s) Inj 05/28/2017 05/28/2017 Inactive cefdinir 300 mg capsule RxNorm: 289919 1 Capsule(s) PO BID 05/28/2017 06/03/2017 Inactive ceftriaxone 500 mg solution for injection RxNorm: 7181127 1 Inj 05/28/2017 05/28/2017 Inactive prednisone 20 mg tablet RxNorm: 365051 1 Tablet(s) PO daily 05/28/2017 05/31/2017 Inactive Keflex 500 mg capsule RxNorm: 709133 1 Capsule(s) PO TID 05/26/2017 06/01/2017 Inactive Keflex 500 mg capsule RxNorm: 716916 1 Capsule(s) PO TID 05/26/2017 05/25/2017 Inactive hydrocodone 10 mg-chlorpheniramine 8 mg/5 mL oral susp extend.rel 12hr RxNorm: 8763572 5-10 Milliliter(s) PO TID as needed 04/16/2017 No Stop Date Active Tussionex Pennkinetic ER 10 mg-8 mg/5 mL suspension,extended release RxNorm: 0136627 5 Milliliter(s) PO BID 04/16/2017 04/27/2017 Inactive Zithromax Z-Kulwant 250 mg tablet RxNorm: 102975 1 Tablet(s) PO UD 03/25/2017 04/15/2017 Inactive z pack as directed enalapril maleate 5 mg tablet RxNorm: 768661 TAKE ONE TABLET BY MOUTH ONCE DAILY 02/26/2017 08/20/2017 Inactive Levemir FlexTouch 100 unit/mL (3 mL) subcutaneous insulin pen RxNorm: 801580 20 Unit(s) SQ BID 02/10/2017 07/11/2017 Inactive Zorvolex 35 mg capsule RxNorm: 1424259 1 Capsule(s) PO TID as needed 02/10/2017 11/08/2017 Inactive valacyclovir 1 gram tablet RxNorm: 744161 1 Tablet(s) PO TID 02/10/2017 02/16/2017 Inactive Levemir FlexTouch 100 unit/mL (3 mL) subcutaneous insulin pen RxNorm: 843518 20 Unit(s) SQ BID 02/04/2017 02/09/2017 Inactive cyclobenzaprine 5 mg tablet RxNorm: 205198 1 Tablet(s) PO qhs x 3 nights and TID as needed muscle spasms 02/02/2017 No Stop Date Active levothyroxine 125 mcg tablet RxNorm: 172579 TAKE ONE TABLET BY MOUTH ONCE DAILY 12/08/2016 06/05/2017 Inactive venlafaxine ER 150 mg capsule,extended release 24 hr RxNorm: 767450 TAKE ONE CAPSULE BY MOUTH ONCE DAILY 12/01/2016 05/29/2017 Inactive Zorvolex 35 mg capsule RxNorm: 5414950 1 Capsule(s) PO TID as needed do not take meloxicam at the same time 11/07/2016 No Stop Date Active enalapril maleate 5 mg tablet RxNorm: 329941 TAKE ONE TABLET BY MOUTH ONCE DAILY 10/31/2016 12/29/2016 Inactive meloxicam 15 mg tablet RxNorm: 342399 TAKE ONE TABLET BY MOUTH ONCE DAILY 10/30/2016 04/27/2017 Inactive meloxicam 15 mg tablet RxNorm: 809375 TAKE ONE TABLET BY MOUTH ONCE DAILY 10/24/2016 10/29/2016 Inactive enalapril maleate 5 mg tablet RxNorm: 265315 TAKE ONE TABLET BY MOUTH ONCE DAILY 10/24/2016 10/30/2016 Inactive venlafaxine ER 150 mg capsule,extended release 24 hr RxNorm: 492952 TAKE ONE CAPSULE BY MOUTH ONCE DAILY 06/16/2016 11/12/2016 Inactive meloxicam 15 mg tablet RxNorm: 728157 TAKE ONE TABLET BY MOUTH ONCE DAILY 06/09/2016 10/06/2016 Inactive enalapril maleate 5 mg tablet RxNorm: 334954 TAKE ONE TABLET BY MOUTH ONCE DAILY 06/02/2016 09/29/2016 Inactive Zithromax Z-Kulwant 250 mg tablet RxNorm: 080650 1 Tablet(s) PO UD 05/21/2016 06/15/2016 Inactive levothyroxine 125 mcg tablet RxNorm: 500374 Tablet(s) TAKE ONE TABLET BY MOUTH ONCE DAILY 04/15/2016 10/11/2016 Inactive Levaquin 500 mg tablet RxNorm: 845091 1 Tablet(s) PO daily 04/03/2016 04/09/2016 Inactive Levaquin 500 mg tablet RxNorm: 502577 1 Tablet(s) PO daily 04/03/2016 04/02/2016 Inactive prednisone 20 mg tablet RxNorm: 121245 2 Tablet(s) PO daily 03/28/2016 04/01/2016 Inactive Zithromax Z-Kulwant 250 mg tablet RxNorm: 097189 1 Tablet(s) PO UD 03/26/2016 03/30/2016 Inactive zpashlomo Kenalog 40 mg/mL suspension for injection RxNorm: 6540073 Milliliter(s) Inj 03/26/2016 03/26/2016 Inactive Zofran ODT 4 mg disintegrating tablet RxNorm: 695281 DISSOLVE ONE TABLET IN MOUTH EVERY 6 HOURS NEEDED 02/22/2016 02/29/2016 Inactive venlafaxine ER 150 mg capsule,extended release 24 hr RxNorm: 854416 TAKE ONE CAPSULE BY MOUTH ONCE DAILY 02/18/2016 06/15/2016 Inactive meloxicam 15 mg tablet RxNorm: 664795 TAKE ONE TABLET BY MOUTH ONCE DAILY 02/04/2016 06/02/2016 Inactive aspirin 81 mg chewable tablet RxNorm: 516097 1 Tablet(s) PO daily 12/13/2015 12/06/2016 Inactive biotin 2,500 mcg tablet RxNorm: 462946 1 Tablet(s) PO daily 12/13/2015 09/07/2016 Inactive hydrochlorothiazide 25 mg tablet RxNorm: 116246 1 Tablet(s) PO daily 12/13/2015 04/10/2016 Inactive enalapril maleate 5 mg tablet RxNorm: 003434 TAKE ONE TABLET BY MOUTH ONCE DAILY 11/22/2015 05/19/2016 Inactive venlafaxine ER 150 mg capsule,extended release 24 hr RxNorm: 854434 TAKE ONE CAPSULE BY MOUTH ONCE DAILY 11/14/2015 02/11/2016 Inactive levothyroxine 125 mcg tablet RxNorm: 376273 Tablet(s) TAKE ONE TABLET BY MOUTH ONCE DAILY 11/06/2015 04/14/2016 Inactive levothyroxine 125 mcg tablet RxNorm: 388410 Tablet(s) TAKE ONE TABLET BY MOUTH ONCE DAILY 08/06/2015 11/03/2015 Inactive meclizine 25 mg tablet RxNorm: 048925 1/2-1 Tablet(s) PO Q6 as needed 07/16/2015 No Stop Date Active Flonase Allergy Relief 50 mcg/actuation nasal spray,suspension RxNorm: 1 [place] NASAL daily 06/13/2015 No Stop Date Active prednisone 20 mg tablet RxNorm: 751947 2 Tablet(s) PO daily 06/13/2015 06/17/2015 Inactive Augmentin 875 mg-125 mg tablet RxNorm: 156231 1 Tablet(s) PO BID 06/13/2015 06/19/2015 Inactive Zithromax Z-Kulwant 250 mg tablet RxNorm: 362616 1 Tablet(s) PO UD 06/07/2015 06/11/2015 Inactive zpack Kenalog 40 mg/mL suspension for injection RxNorm: 6485382 Milliliter(s) Inj 06/07/2015 06/07/2015 Inactive venlafaxine ER 150 mg capsule,extended release 24 hr RxNorm: 123456 TAKE ONE CAPSULE BY MOUTH ONCE DAILY 05/14/2015 11/09/2015 Inactive Augmentin 500 mg-125 mg tablet RxNorm: 762164 1 Tablet(s) PO TID 04/25/2015 05/04/2015 Inactive Augmentin 500 mg-125 mg tablet RxNorm: 758878 1 Tablet(s) PO TID 04/25/2015 04/24/2015 Inactive pravastatin 10 mg tablet RxNorm: 986550 1 Tablet(s) PO daily take with coenzyme q 10 daily 03/21/2015 03/20/2015 Inactive DC crestor pravastatin 10 mg tablet RxNorm: 736527 1 Tablet(s) PO daily take with coenzyme q 10 daily 03/21/2015 07/18/2015 Inactive DC crestor Zofran ODT 4 mg disintegrating tablet RxNorm: 604009 1 Tablet(s) PO Q6 PRN 03/13/2015 02/21/2016 Inactive levothyroxine 125 mcg tablet RxNorm: 630139 TAKE ONE TABLET BY MOUTH ONCE DAILY 02/13/2015 08/05/2015 Inactive meloxicam 15 mg tablet RxNorm: 936730 1 Tablet(s) PO daily 01/28/2015 01/22/2016 Inactive Zofran 4 mg tablet RxNorm: 834239 1 Tablet(s) PO Q6-8H as needed nausea 01/24/2015 No Stop Date Active Trulicity 1.5 mg/0.5 mL subcutaneous pen injector RxNorm: 3241985 0.75mg Milliliter(s) SQ QW 01/10/2015 No Stop Date Active venlafaxine ER 150 mg capsule,extended release 24 hr RxNorm: 072902 1 Capsule(s) PO daily 01/10/2015 05/09/2015 Inactive enalapril maleate 5 mg tablet RxNorm: 425184 1 Tablet(s) PO daily 01/04/2015 07/02/2015 Inactive amoxicillin 500 mg tablet RxNorm: 796897 1 Tablet(s) PO BID 12/07/2014 12/06/2014 Inactive Probiotic & Acidophilus 300 million cell-250 mg capsule RxNorm: 1 Capsule(s) PO BID 12/07/2014 12/16/2014 Inactive amoxicillin 500 mg tablet RxNorm: 443716 1 Tablet(s) PO BID 12/07/2014 12/16/2014 Inactive Kenalog 40 mg/mL suspension for injection RxNorm: 3370148 1 Milliliter(s) Inj 12/07/2014 12/07/2014 Inactive meloxicam 15 mg tablet RxNorm: 842344 1 Tablet(s) PO daily 10/24/2014 10/23/2014 Inactive meloxicam 15 mg tablet RxNorm: 533365 1 Tablet(s) PO daily 10/24/2014 01/27/2015 Inactive azithromycin 500 mg tablet RxNorm: 835243 1 Tablet(s) PO daily 10/11/2014 10/15/2014 Inactive azithromycin 500 mg tablet RxNorm: 219709 1 Tablet(s) PO daily 10/11/2014 10/10/2014 Inactive levothyroxine 125 mcg tablet RxNorm: 157534 1 Tablet(s) PO daily 10/06/2014 02/02/2015 Inactive enalapril maleate 5 mg tablet RxNorm: 066375 1 Tablet(s) PO daily 08/29/2014 12/26/2014 Inactive enalapril maleate 5 mg tablet RxNorm: 130619 1 Tablet(s) PO daily 08/25/2014 08/28/2014 Inactive Medroxy oral RxNorm: 4721714 oral No Start Date Active Vitamin D3 5,000 unit tablet RxNorm: 643426 1 Tablet(s) PO daily No Start Date Active fluconazole 200 mg tablet RxNorm: 152633 Tablet(s) PO No Start Date Active estradiol 2 mg tablet RxNorm: 777393 1 Tablet(s) PO daily No Start Date Active fenofibrate nanocrystallized 145 mg tablet RxNorm: 093752 1 Tablet(s) PO daily No Start Date Active hydrocodone 5 mg-acetaminophen 325 mg tablet RxNorm: 534065 1-2 Tablet(s) PO Q4-6H as needed No Start Date Active enalapril maleate 5 mg tablet RxNorm: 474745 1 Tablet(s) PO daily No Start Date 08/24/2014 Inactive glimepiride 4 mg tablet RxNorm: 752010 1 Tablet(s) PO daily No Start Date 01/26/2017 Inactive meclizine 25 mg tablet RxNorm: 591408 1/2-1 Tablet(s) PO Q6 as needed No Start Date 07/15/2015 Inactive Trulicity 0.75 mg/0.5 mL subcutaneous pen injector RxNorm: 1267976 0.75mg Milliliter(s) SQ QW No Start Date 01/09/2015 Inactive metformin 1,000 mg tablet RxNorm: 527303 Tablet(s) PO BID No Start Date 01/26/2017 Inactive venlafaxine ER 150 mg capsule,extended release 24 hr RxNorm: 448714 1 Capsule(s) PO daily No Start Date 01/09/2015 Inactive meloxicam 15 mg tablet RxNorm: 173474 1 Tablet(s) PO daily No Start Date 10/23/2014 Inactive levothyroxine 125 mcg tablet RxNorm: 481581 1 Tablet(s) PO daily No Start Date 10/05/2014 Inactive Levemir FlexTouch 100 unit/mL (3 mL) subcutaneous insulin pen RxNorm: 471743 15 Unit(s) SQ daily No Start Date 02/03/2017 Inactive Zithromax Z-Kulwant 250 mg tablet RxNorm: 478233 1 Tablet(s) PO UD No Start Date 05/20/2016 Inactive Fish Oil 1,000 mg capsule RxNorm: 1 Capsule(s) PO BID No Start Date 11/04/2016 Inactive Zofran 4 mg tablet RxNorm: 763002 1 Tablet(s) PO Q6-8H as needed nausea No Start Date 01/23/2015 Inactive Crestor 10 mg tablet RxNorm: 352415 1 Tablet(s) PO daily No Start Date 03/20/2015 Inactive Medication Administered Medication Codes Instructions Start Date Status Kenalog 40 mg/mL suspension for injection RxNorm: 6221002 1Milliliter 11/30/2017 No longer Active Kenalog 40 mg/mL suspension for injection RxNorm: 0755797 1Milliliter 05/28/2017 No longer Active ceftriaxone 500 mg solution for injection RxNorm: 7531553 1 05/28/2017 No longer Active Kenalog 40 mg/mL suspension for injection RxNorm: 6799998 Milliliter 03/26/2016 No longer Active Kenalog 40 mg/mL suspension for injection RxNorm: 7939038 Milliliter 06/07/2015 No longer Active Kenalog 40 mg/mL suspension for injection RxNorm: 2441204 1Milliliter 12/07/2014 No longer Active Immunizations Vaccine Codes Date Status Influenza CVX: 141 11/26/2017 completed Assessments Condition Codes Effective Dates Paresthesia of skin ICD-10: R20.2 ICD-9: 782.0 02/17/2018 Pain in right shoulder ICD-10: M25.511 ICD-9: 719.41 12/21/2017 Rash and other nonspecific skin eruption ICD-10: R21 ICD-9: 782.1 12/21/2017 Other acute sinusitis ICD-10: J01.80 ICD-9: 461.8 11/30/2017 Other allergic rhinitis ICD-10: J30.89 ICD-9: 477.8 11/30/2017 Localized edema ICD-10: R60.0 ICD-9: 782.3 11/30/2017 Acute recurrent maxillary sinusitis ICD-10: J01.01 ICD-9: 461.0 05/28/2017 Cough ICD-10: R05 ICD-9: 786.2 05/28/2017 Headache ICD-10: R51 ICD-9: 784.0 05/19/2017 Acute laryngopharyngitis ICD-10: J06.0 ICD-9: 465.0 04/16/2017 Left lower quadrant pain ICD-10: R10.32 ICD-9: 789.04 02/10/2017 Pain in thoracic spine ICD-10: M54.6 ICD-9: 724.1 02/02/2017 Other muscle spasm ICD-10: M62.838 ICD-9: 728.85 02/02/2017 Other acute pancreatitis without necrosis or infection ICD-10: K85.80 ICD-9: 577.0 01/27/2017 Epigastric pain ICD-10: R10.13 ICD-9: 789.06 01/27/2017 Type 2 diabetes mellitus without complications ICD-10: E11.9 ICD-9: 250.00 01/27/2017 Essential (primary) hypertension ICD-10: I10 ICD-9: 401.9 11/07/2016 Bilateral primary osteoarthritis of hip ICD-10: M16.0 ICD-9: 715.95 11/07/2016 Actinic keratosis ICD-10: L57.0 ICD-9: 702.0 11/07/2016 Type 1 diabetes mellitus without complications ICD-10: E10.9 ICD-9: 250.00 11/07/2016 Other specified hypothyroidism ICD-10: E03.8 ICD-9: [...] Item Item Code Result Date CHEM 14 [id number] AST TNP:Lab Request 01/27/2017 CHEM 14 [id number] ALT TNP:Lab Request 01/27/2017 CHEM 14 [id number] BUN TNP:Lab Request 01/27/2017 CHEM 14 [id number] ALBUMIN TNP:Lab Request 01/27/2017 CHEM 14 [id number] CHLORIDE TNP:Lab Request 01/27/2017 CHEM 14 [id number] Bili Total TNP:Lab Request 01/27/2017 CHEM 14 [id number] ALK PHOS TNP:Lab Request 01/27/2017 CHEM 14 [id number] SODIUM TNP:Lab Request 01/27/2017 CHEM 14 [id number] CREATININE TNP:Lab Request 01/27/2017 CHEM 14 [id number] CALCIUM TNP:Lab Request 01/27/2017 CHEM 14 [id number] POTASSIUM TNP:Lab Request 01/27/2017 CHEM 14 [id number] TOTAL PROTEIN TNP:Lab Request 01/27/2017 CHEM 14 [id number] GLUCOSE TNP:Lab Request 01/27/2017 CHEM 14 [id number] Bicarbonate TNP:Lab Request 01/27/2017 CHEM 14 [id number] AGAP TNP:Lab Request 01/27/2017 AMYLASE [id number] Amylase Lvl TNP:Lab Request 01/27/2017 LIPID GRP [id number] CHOLESTEROL 273 mg/dL 2016 LIPID GRP Triglyceride 583 mg/dL 2016 LIPID GRP HDL CHOLESTEROL 48 mg/dL 2016 LIPID GRP Chol/HDL Ratio 5.69 ratio 2016 LIPID GRP NON-HDL Chol 225 mg/dL 2016 LIPID GRP LDL Cholesterol N/A Trig >400 2016 A1C HPLC 8643312 Hgb A1c 58629-8 7.3 % 2016 TSH 2388215 TSH 1.340 uIU/mL 2016 FREE T4 3231014 T4 Free 1.60 ng/dL 2016 MEAN GLUC 6746772 Calc Mean Gluc 163 mg/dL 2016 GFR CALC 3159885 GFR Non Afr Amr >60 mL/min 2016 GFR CALC 3010569 GFR Afr Amr >60 mL/min 2016 CBC 7005110 WBC 8.1 10e9/L 2016 CBC 6111358 RBC 4.41 10e12/L 2016 CBC 9277120 HEMOGLOBIN 13.2 g/dL 2016 CBC 2363642 HEMATOCRIT 39.6 % 2016 CBC 2215889 MCV 89.8 fL 2016 CBC 8203766 MCH 29.9 pg 2016 CBC 0494462 MCHC 33.3 g/dL 2016 CBC 7149424 PLATELET COUNT 298 10e9/L 2016 CBC 4271180 Mean Plt Volume 10.5 fL 2016 CBC 2059178 Neut Auto 61.3 % 2016 CBC 4979335 Lymph Auto 26.3 % 2016 CBC 1265432 Mcculloch Auto 7.7 % 2016 CBC 7119508 RDW 13.6 % 2016 CBC 2206508 Eos Auto 4.2 % 2016 CBC 3363202 Baso Auto 0.5 % 2016 CBC 2044475 Neutrophil Abs 4.97 10e9/L 2016 CBC 5034721 Lymphocyte Abs 2.13 10e9/L 2016 CBC 1659274 Monocyte Abs 0.62 10e9/L 2016 CBC 4018893 Eosinophil Abs 0.34 10e9/L 2016 CBC 8309083 Basophil Abs 0.04 10e9/L 2016 CBC 1118596 RDW-SD 44.1 fL 2016 CHEM 14 0708269 AST 19 U/L 2016 CHEM 14 [id number] ALT 26 U/L 2016 CHEM 14 [id number] BUN 20 mg/dL 2016 CHEM 14 4745173 ALBUMIN 4.1 g/dL 2016 CHEM 14 4343994 CHLORIDE 99 mmol/L 2016 CHEM 14 0800851 Bili Total 0.3 mg/dL 2016 CHEM 14 0646029 ALK PHOS 55 U/L 2016 CHEM 14 4779764 SODIUM 135 mmol/L 2016 CHEM 14 0541122 CREATININE 0.87 mg/dL 2016 CHEM 14 5396353 CALCIUM 9.3 mg/dL 2016 CHEM 14 5952932 POTASSIUM 4.0 mmol/L 2016 CHEM 14 9464805 TOTAL PROTEIN 7.0 g/dL 2016 CHEM 14 3293632 GLUCOSE 149 mg/dL 2016 CHEM 14 4543156 Bicarbonate 26 mmol/L 2016 CHEM 14 2945964 AGAP 10 mmol/L 2016 Review of Systems [...] 4: J0696 05/28/2017 THER/PROPH/DIAG INJ SC/IM CPT-4: 26867 05/19/2017 KETOROLAC TROMETHAMINE INJ CPT-4: J1885 05/19/2017 TRIAMCINOLONE ACET INJ NOS CPT-4: J3301 03/26/2016 TRIAMCINOLONE ACET INJ NOS CPT-4: J3301 06/07/2015 THER/PROPH/DIAG INJ SC/IM CPT-4: 49540 12/07/2014 TRIAMCINOLONE ACET INJ NOS CPT-4: J3301 12/07/2014 Vital Signs Date Vital 02/17/2018 Blood Pressure 1: 132/76 Code: 8480-6 BMI: 33.5 Code: 65594-0 Heart Rate 1: 92 bpm Height: 5'7" SpO2: 98% Weight: 214 lbs 12/21/2017 Blood Pressure 1: 154/78 Code: 8480-6 BMI: 33.5 Code: 01407-9 Heart Rate 1: 93 bpm Height: 5'7" SpO2: 96% Weight: 214 lbs 11/30/2017 Blood Pressure 1: 148/88 Code: 8480-6 BMI: 33.5 Code: 97836-4 Heart Rate 1: 80 bpm Height: 5'7" SpO2: 97% Temperature: 36.9 (C) / 98.5 (F) Weight: 214 lbs 05/28/2017 Blood Pressure 1: 128/70 Code: 8480-6 BMI: 31.3 Code: 54840-2 Heart Rate 1: 103 bpm Height: 5'7" SpO2: 98% Temperature: 36.7 (C) / 98.1 (F) Weight: 200 lbs 05/19/2017 Blood Pressure 1: 150/72 Code: 8480-6 04/16/2017 Blood Pressure 1: 146/88 Code: 8480-6 BMI: 31.3 Code: 66120-4 Heart Rate 1: 96 bpm Height: 5'7" SpO2: 94% Temperature: 37.2 (C) / 99.0 (F) Weight: 200 lbs 02/10/2017 Blood Pressure 1: 132/72 Code: 8480-6 BMI: 31.3 Code: 72381-3 Heart Rate 1: 99 bpm Height: 5'7" SpO2: 97% Weight: 200 lbs 02/02/2017 Blood Pressure 1: 140/68 Code: 8480-6 BMI: 31.4 Code: 53203-5 Heart Rate 1: 82 bpm Height: 5'7" SpO2: 97% Weight: 200 lbs 8 oz 01/27/2017 Blood Pressure 1: 142/80 Code: 8480-6 BMI: 32.2 Code: 56111-7 Height: 5'7" Temperature: 37.2 (C) / 98.9 (F) Weight: 205 lbs 8 oz 11/07/2016 Blood Pressure 1: 148/82 Code: 8480-6 BMI: 32.7 Code: 34226-5 Heart Rate 1: 106 bpm Height: 5'7" SpO2: 97% Weight: 209 lbs 03/26/2016 Blood Pressure 1: 140/86 Code: 8480-6 Heart Rate 1: 90 bpm Height: SpO2: 97% Weight: 12/13/2015 Blood Pressure 1: 132/72 Code: 8480-6 BMI: 31.2 Code: 02016-1 Heart Rate 1: 84 bpm Height: 5'7" SpO2: 98% Weight: 199 lbs 08/15/2015 Blood Pressure 1: 138/88 Code: 8480-6 BMI: 32.1 Code: 15133-7 Heart Rate 1: 94 bpm Height: 5'7" SpO2: 97% Weight: 205 lbs 06/13/2015 Blood Pressure 1: 188/88 Code: 8480-6 Blood Pressure 1: 146/78 Code: 8480-6 BMI: 32.6 Code: 93893-0 Heart Rate 1: 97 bpm Height: 5'7" SpO2: 98% Weight: 208 lbs 06/07/2015 Blood Pressure 1: 128/82 Code: 8480-6 BMI: 32.4 Code: 89229-6 Heart Rate 1: 80 bpm Height: 5'7" SpO2: 99% Weight: 207 lbs 03/13/2015 Blood Pressure 1: 124/70 Code: 8480-6 BMI: 31.6 Code: 09748-1 Heart Rate 1: 103 bpm Height: 5'7" Respiratory Rate: 18 bpm SpO2: 97% Temperature: 36.6 (C) / 97.8 (F) Weight: 202 lbs 12/07/2014 Blood Pressure 1: 140/80 Code: 8480-6 BMI: 32.3 Code: 67093-8 Heart Rate 1: 97 bpm Height: 5'7" SpO2: 99% Weight: 206 lbs 09/07/2014 Blood Pressure 1: 132/78 Code: 8480-6 BMI: 31.2 Code: 91841-3 Heart Rate 1: 92 bpm Height: 5'7" [...] with shunt placement- 6-12-15- Dr Ruvalcaba in [place] did surgery headache Onset and Resolution ongoing [...] Codes Date EST. PATIENT, LEVEL III Diagnosis: Paresthesia of skin[ICD10: R20.2] [facility] CPT-4: 46058 02/17/2018 [id number] EST. PATIENT, LEVEL IV Diagnosis: Pain in right shoulder[ICD10: M25.511] Diagnosis: Rash and other nonspecific skin eruption[ICD10: R21] Aditi Dunham MD, [facility] CPT-4: 21269 12/21/2017 [id number] EST. PATIENT, LEVEL IV Diagnosis: Other acute sinusitis[ICD10: J01.80] Diagnosis: Other allergic rhinitis[ICD10: J30.89] Diagnosis: Localized edema[ICD10: R60.0] Aditi Dunham MD, [facility] CPT-4: 16262 11/30/2017 ([id number] 74081 EST. PATIENT, LEVEL III Diagnosis: Acute recurrent maxillary sinusitis[ICD10: J01.01] Diagnosis: Cough[ICD10: R05] Tavia Dunham MD [facility] CPT-4: 21420 05/28/2017 ([id number]) [id number] EST. PATIENT, LEVEL III Diagnosis: Acute laryngopharyngitis[ICD10: J06.0] Diagnosis: Cough[ICD10: R05] Tavia Dunham MD, [facility] CPT-4: 04245 04/16/2017 [id number] EST. PATIENT, LEVEL III Diagnosis: Left lower quadrant pain[ICD10: R10.32] Aditi Dunham MD [facility] CPT-4: 61451 02/10/2017 ([id number]) [id number] EST. PATIENT, LEVEL III Diagnosis: Pain in thoracic spine[ICD10: M54.6] Diagnosis: Other muscle spasm[ICD10: M62.838] aTvia Dunham MD, [facility] CPT- 4: 94599 02/02/2017 ([id number]) 91206 EST. PATIENT, LEVEL IV Diagnosis: Other acute pancreatitis without necrosis or infection[ICD10: K85.80] Diagnosis: Epigastric pain[ICD10: R10.13] Diagnosis: Type 2 diabetes mellitus without complications[ICD10: E11.9] Tavia Dunham MD, [facility] CPT-4: 05301 01/27/2017 [id number] EST. PATIENT, LEVEL IV Diagnosis: Essential (primary) hypertension[ICD10: I10] Diagnosis: Type 1 diabetes mellitus without complications[ICD10: E10.9] Diagnosis: Other specified hypothyroidism[ICD10: E03.8] Diagnosis: Bilateral primary osteoarthritis of hip[ICD10: M16.0] Diagnosis: Actinic keratosis[ICD10: L57.0] Aditi Dunham MD, [facility] CPT-4: 37290 11/07/2016 [id number] EST. PATIENT, LEVEL III Diagnosis: Other acute sinusitis[ICD10: J01.80] Diagnosis: Other allergic rhinitis[ICD10: J30.89] Diagnosis: Cough[ICD10: R05] Aditi Dunham MD, [facility] CPT-4: 49586 03/26/2016 ([id number]) [id number] EST. PATIENT, LEVEL IV Diagnosis: Essential (primary) hypertension[ICD10: I10] Diagnosis: Pure hyperglyceridemia[ICD10: E78.1] Tavia Dunham MD, [facility] CPT- 4: 39592 12/13/2015 ([id number]) 35460 EST. PATIENT, LEVEL III Diagnosis: Essential (primary) hypertension[ICD10: I10] Diagnosis: (Idiopathic) normal pressure hydrocephalus[ICD10: G91.2] Tavia Dunham MD, [facility] CPT-4: 80306 08/15/2015 [id number] EST. PATIENT, LEVEL III Diagnosis: Other acute nonsuppurative otitis media, right ear[ICD10: H65.191] Diagnosis: Acute upper respiratory infection, unspecified[ICD10: J06.9] Aditi Dunham MD, [facility] CPT-4: 58802 06/13/2015 ([id number]) [id number] EST. PATIENT, LEVEL III Diagnosis: Acute recurrent maxillary sinusitis[ICD10: J01.01] Diagnosis: Allergic rhinitis due to pollen[ICD10: J30.1] Kaylan Dunham MD, [facility] CPT-4: 43194 06/07/2015 ([id number]) [id number] EST. PATIENT, LEVEL IV Diagnosis: (Idiopathic) normal pressure hydrocephalus[ICD10: G91.2] Diagnosis: Essential (primary) hypertension[ICD10: I10] Diagnosis: Dizziness and giddiness[ICD10: R42] Diagnosis: Nausea with vomiting, unspecified[ICD10: R11.2] Kaylan Dunham MD, [facility] CPT-4: 58956 03/13/2015 [id number] EST. PATIENT, LEVEL III Diagnosis: Acute sinusitis, unspecified[ICD10: J01.90] Diagnosis: Allergic rhinitis, unspecified[ICD10: J30.9] Tavia Dunham MD, [facility] CPT-4: 61046 12/07/2014 ([id number]) [id number] EST. PATIENT, LEVEL IV Diagnosis: ESSENTIAL HYPERTENSION[ICD9: 401.9] Diagnosis: DIABETES TYPE II[ICD9: 250.00] Diagnosis: NPH (normal pressure hydrocephalus)[ICD9: 331.5] Diagnosis: Hypertriglyceridemia[ICD9: 272.1] [facility] CPT- 4: 43147 09/07/2014 ([id number]) OFFICE/OUTPATIENT VISIT NEW Diagnosis: DIABETES TYPE II[ICD9: 250.00] Diagnosis: ESSENTIAL HYPERTENSION[ICD9: 401.9] Diagnosis: NPH (normal pressure hydrocephalus)[ICD9: 331.5] Diagnosis: Abnormal gait[ICD9: 781.2] Diagnosis: VITAMIN D DEFICIENCY[ICD9: 268.9] [facility] CPT- 4: 76908 08/07/2014 Plan of Care Planned Activity Notes Codes Status Date Visit Plan: Parasthesia - ongoing for about a month - will send RX and refer pt for EMG - The pt is to use prn antiinflammatories to manage acute pain. The patient is to call the office if the pain is worsening or does not improve. 02/17/2018 Appointment: Aditi Hamilton WPtel: [address] [place], [place] [phone] (15 min) Moderate 02/17/2018 Patient Education: Patient [...] warmth, discharge. 12/21/2017 Appointment: Aditi Hamilton WPtel: [facility] [place] [place] (15 min) Moderate 12/21/2017 Patient Education: Patient Medication Summary Completed 12/21/2017 Appointment: Tavia Dunham WPtel: [phone] [facility] (15 min) Moderate 12/02/2017 Visit Plan: Sinusitis [...] edema. 11/30/2017 App[facility]ment: [phone] [facility] (15 min) Moderate 11/30/2017 Patient Education: Patient Medication Summary Completed 11/30/2017 Care Plan: Comp Metabolic Pending 11/30/2017 Care Plan: Cbc With Differential Pending 11/30/2017 Care Plan: %Hba1C LOINC : [id number] Pending 11/30/2017 Care Plan: Lipid Pending 11/30/2017 Care Plan: Tsh Pending 11/30/2017 Care Plan: Free T4 Pending 11/30/2017 Appointment: Tavia Dunham WPtel: [facility] [place] (15 min) Moderate 11/26/2017 Appointment: [phone] [facility] [place] (30 min) Complex 08/13/2017 Appointment: [facility] [phone] [facility] [place] (15 min) Moderate 08/04/2017 Appointment: Tavia Dunham WPtel: [facility] [place] (15 min) Moderate 07/20/2017 Visit Plan: Sinusitis [...] today 05/28/2017 Appointment: [facility]ham [facility]el[facility] [phone] [facility] [place] (30 min) Complex 05/28/2017 Patient [...] patient's pharmacy. 04/16/2017 Appointment: [facility]ham [facility]Ptel[facility] [phone] [facility] [place] (15 min) Moderate 04/16/2017 Patient [...] concerns. 02/10/2017 Appointment: Ad[facility] Hamilton [facility]el[facility] [phone] [facility] [place] (15 min) Moderate 02/10/2017 Patient Education: Patient Medication Summary Completed 02/10/2017 Patient Education: Obesity Completed 02/10/2017 Visit Plan: Pain in Thoracic spine with muscle spasm - ibuprofen 600mg three times daily x 3 days, rx for cyclobenzaprine. 02/02/2017 Appointment: [facility]ham [facility]el[facility] [phone] [facility] [place] (15 min) Moderate 02/02/2017 Patient [...] labs today. 01/27/2017 Appointment: [facility]el[facility] [phone] [facility] [place] (15 min) Moderate 01/27/2017 Patient [...] pain symptoms. 11/07/2016 Appointment: [facility] [phone] [facility] (30 min) Complex 11/07/2016 Patient Education: [...] 03/26/2016 Appointment: Ad[facility] Hamilton [facility]Ptel[facility] [phone] [facility] (30 min) Complex 03/26/2016 Patient [...] to medications. 12/13/2015 Appointment: Tavia Dunham WPtel: [facility] [place] [facility] (15 min) Moderate 12/13/2015 Patient Education: [...] on supplement. 08/07/2014 Appointment: Tavia Dunham WPtel: [address] [place], [place] [address] [place] (S) New Patient 08/07/2014 Patient Education: [...]
--- OUTSIDE RECORDS SUMMARY | 2018-10-08 11:44 | XMS REPORT | CCD ---
Author Author [facility] Organization [facility] Address [address] [place] [address] Phone Care Team Providers Care Pan Shaker Name Role Phone PP Unavailable CCM Unavailable Summary Purpose Interface Exchange Insurance Providers Payer name Policy type / Coverage type Covered green party ID Effective Begin Date Effective End Date Blue Cross Blue [facility] Blue Cross/Blue [facility] [id number] Unknown Family history Mother Diagnosis Age At Onset Cancer Unknown Arthritis Unknown Depression Unknown Hyperlipidemia Unknown Diabetes mellitus Type 2 Unknown Social History Social History Element Codes Description Effective Dates Marital status Unknown [place] 08/07/2014 Number of children Unknown 0 08/07/2014 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 [employer] 08/07/[address]: 726756131 Never smoker 08/07/[address]: 210457970 Never drinks alcohol 08/07/2014 Allergies, Adverse Reactions, [...] Start Date Stop Date Status Fill Instructions prednisone 20 mg tablet RxNorm: 373386 2 Tablet(s) PO daily 02/17/2018 02/21/2018 Inactive levothyroxine 125 mcg tablet RxNorm: 442646 TAKE 1 TABLET BY MOUTH ONCE DAILY 01/11/2018 No Stop Date Active cyclobenzaprine 5 mg tablet RxNorm: 640167 1 Tablet(s) PO TID as needed 12/28/2017 01/11/2018 Inactive Zorvolex 35 mg capsule RxNorm: 1015489 1 Capsule(s) PO TID as needed 12/25/2017 05/23/2018 Active Levemir FlexTouch U-100 Insulin 100 unit/mL (3 mL) subcutaneous pen RxNorm: 654067 INJECT 2O UNITS SUBCUTANEOUSLY TWICE DAILY 12/21/2017 No Stop Date Active cyclobenzaprine 5 mg tablet RxNorm: 377702 1 Tablet(s) PO TID as needed 12/21/2017 12/25/2017 Inactive doxycycline hyclate 100 mg capsule RxNorm: 3561475 1 Capsule(s) PO BID 12/21/2017 12/30/2017 Inactive venlafaxine ER 150 mg capsule,extended release 24 hr RxNorm: 611010 TAKE 1 CAPSULE BY MOUTH ONCE DAILY 12/10/2017 No Stop Date Active Zithromax Z-Kulwant 250 mg tablet RxNorm: 473336 1 Tablet(s) PO UD 12/03/2017 No Stop Date Active z pack as directed Singulair 10 mg tablet RxNorm: 341762 1 Tablet(s) PO daily 12/03/2017 12/02/2017 Inactive Singulair 10 mg tablet RxNorm: 019534 1 Tablet(s) PO daily 12/03/2017 01/01/2018 Inactive Kenalog 40 mg/mL suspension for injection RxNorm: 0423086 1 Milliliter(s) Inj 11/30/2017 11/30/2017 Inactive prednisone 20 mg tablet RxNorm: 346741 2 Tablet(s) PO daily 11/30/2017 12/04/2017 Inactive Augmentin 875 mg-125 mg tablet RxNorm: 002593 1 Tablet(s) PO BID 11/27/2017 11/26/2017 Inactive Augmentin 875 mg-125 mg tablet RxNorm: 433536 1 Tablet(s) PO BID 11/27/2017 12/03/2017 Inactive Zorvolex 35 mg capsule RxNorm: 0299235 1 Capsule(s) PO TID as needed 11/09/2017 12/24/2017 Inactive hydrochlorothiazide 25 mg tablet RxNorm: 383904 1 Tablet(s) PO daily 10/22/2017 02/18/2018 Inactive enalapril maleate 5 mg tablet RxNorm: 333944 1 Tablet(s) PO daily TAKE ONE TABLET BY MOUTH ONCE DAILY 08/21/2017 02/16/2018 Inactive Levemir FlexTouch U-100 Insulin 100 unit/mL (3 mL) subcutaneous pen RxNorm: 773988 20 Unit(s) SQ BID 07/30/2017 12/20/2017 Inactive levothyroxine 125 mcg tablet RxNorm: 790782 TAKE ONE TABLET BY MOUTH ONCE DAILY 06/29/2017 01/10/2018 Inactive venlafaxine ER 150 mg capsule,extended release 24 hr RxNorm: 212344 1 Capsule(s) PO daily TAKE ONE CAPSULE BY MOUTH ONCE DAILY 06/08/2017 12/04/2017 Inactive prednisone 20 mg tablet RxNorm: 754480 1 Tablet(s) PO daily 06/02/2017 06/06/2017 Inactive prednisone 20 mg tablet RxNorm: 355463 1 Tablet(s) PO daily 06/01/2017 06/05/2017 Inactive Kenalog 40 mg/mL suspension for injection RxNorm: 2354686 1 Milliliter(s) Inj 05/28/2017 05/28/2017 Inactive cefdinir 300 mg capsule RxNorm: 389343 1 Capsule(s) PO BID 05/28/2017 06/03/2017 Inactive ceftriaxone 500 mg solution for injection RxNorm: 0740404 1 Inj 05/28/2017 05/28/2017 Inactive prednisone 20 mg tablet RxNorm: 338238 1 Tablet(s) PO daily 05/28/2017 05/31/2017 Inactive Keflex 500 mg capsule RxNorm: 038967 1 Capsule(s) PO TID 05/26/2017 06/01/2017 Inactive Keflex 500 mg capsule RxNorm: 761766 1 Capsule(s) PO TID 05/26/2017 05/25/2017 Inactive hydrocodone 10 mg-chlorpheniramine 8 mg/5 mL oral susp extend.rel 12hr RxNorm: 4705367 5-10 Milliliter(s) PO TID as needed 04/16/2017 No Stop Date Active Tussionex Pennkinetic ER 10 mg-8 mg/5 mL suspension,extended release RxNorm: 3758059 5 Milliliter(s) PO BID 04/16/2017 04/27/2017 Inactive Zithromax Z-Kulwant 250 mg tablet RxNorm: 818607 1 Tablet(s) PO UD 03/25/2017 04/15/2017 Inactive z pack as directed enalapril maleate 5 mg tablet RxNorm: 419773 TAKE ONE TABLET BY MOUTH ONCE DAILY 02/26/2017 08/20/2017 Inactive Levemir FlexTouch 100 unit/mL (3 mL) subcutaneous insulin pen RxNorm: 332867 20 Unit(s) SQ BID 02/10/2017 07/11/2017 Inactive Zorvolex 35 mg capsule RxNorm: 7818983 1 Capsule(s) PO TID as needed 02/10/2017 11/08/2017 Inactive valacyclovir 1 gram tablet RxNorm: 782046 1 Tablet(s) PO TID 02/10/2017 02/16/2017 Inactive Levemir FlexTouch 100 unit/mL (3 mL) subcutaneous insulin pen RxNorm: 300499 20 Unit(s) SQ BID 02/04/2017 02/09/2017 Inactive cyclobenzaprine 5 mg tablet RxNorm: 309894 1 Tablet(s) PO qhs x 3 nights and TID as needed muscle spasms 02/02/2017 No Stop Date Active levothyroxine 125 mcg tablet RxNorm: 785559 TAKE ONE TABLET BY MOUTH ONCE DAILY 12/08/2016 06/05/2017 Inactive venlafaxine ER 150 mg capsule,extended release 24 hr RxNorm: 096316 TAKE ONE CAPSULE BY MOUTH ONCE DAILY 12/01/2016 05/29/2017 Inactive Zorvolex 35 mg capsule RxNorm: 8062566 1 Capsule(s) PO TID as needed do not take meloxicam at the same time 11/07/2016 No Stop Date Active enalapril maleate 5 mg tablet RxNorm: 238126 TAKE ONE TABLET BY MOUTH ONCE DAILY 10/31/2016 12/29/2016 Inactive meloxicam 15 mg tablet RxNorm: 729804 TAKE ONE TABLET BY MOUTH ONCE DAILY 10/30/2016 04/27/2017 Inactive meloxicam 15 mg tablet RxNorm: 414273 TAKE ONE TABLET BY MOUTH ONCE DAILY 10/24/2016 10/29/2016 Inactive enalapril maleate 5 mg tablet RxNorm: 806522 TAKE ONE TABLET BY MOUTH ONCE DAILY 10/24/2016 10/30/2016 Inactive venlafaxine ER 150 mg capsule,extended release 24 hr RxNorm: 008528 TAKE ONE CAPSULE BY MOUTH ONCE DAILY 06/16/2016 11/12/2016 Inactive meloxicam 15 mg tablet RxNorm: 390090 TAKE ONE TABLET BY MOUTH ONCE DAILY 06/09/2016 10/06/2016 Inactive enalapril maleate 5 mg tablet RxNorm: 211502 TAKE ONE TABLET BY MOUTH ONCE DAILY 06/02/2016 09/29/2016 Inactive Zithromax Z-Kulwant 250 mg tablet RxNorm: 903197 1 Tablet(s) PO UD 05/21/2016 06/15/2016 Inactive levothyroxine 125 mcg tablet RxNorm: 894308 Tablet(s) TAKE ONE TABLET BY MOUTH ONCE DAILY 04/15/2016 10/11/2016 Inactive Levaquin 500 mg tablet RxNorm: 861786 1 Tablet(s) PO daily 04/03/2016 04/09/2016 Inactive Levaquin 500 mg tablet RxNorm: 080739 1 Tablet(s) PO daily 04/03/2016 04/02/2016 Inactive prednisone 20 mg tablet RxNorm: 992763 2 Tablet(s) PO daily 03/28/2016 04/01/2016 Inactive Zithromax Z-Kulwant 250 mg tablet RxNorm: 361062 1 Tablet(s) PO UD 03/26/2016 03/30/2016 Inactive zpack Kenalog 40 mg/mL suspension for injection RxNorm: 4954911 Milliliter(s) Inj 03/26/2016 03/26/2016 Inactive Zofran ODT 4 mg disintegrating tablet RxNorm: 889591 DISSOLVE ONE TABLET IN MOUTH EVERY 6 HOURS NEEDED 02/22/2016 02/29/2016 Inactive venlafaxine ER 150 mg capsule,extended release 24 hr RxNorm: 836609 TAKE ONE CAPSULE BY MOUTH ONCE DAILY 02/18/2016 06/15/2016 Inactive meloxicam 15 mg tablet RxNorm: 811018 TAKE ONE TABLET BY MOUTH ONCE DAILY 02/04/2016 06/02/2016 Inactive aspirin 81 mg chewable tablet RxNorm: 933047 1 Tablet(s) PO daily 12/13/2015 12/06/2016 Inactive biotin 2,500 mcg tablet RxNorm: 631207 1 Tablet(s) PO daily 12/13/2015 09/07/2016 Inactive hydrochlorothiazide 25 mg tablet RxNorm: 985030 1 Tablet(s) PO daily 12/13/2015 04/10/2016 Inactive enalapril maleate 5 mg tablet RxNorm: 026986 TAKE ONE TABLET BY MOUTH ONCE DAILY 11/22/2015 05/19/2016 Inactive venlafaxine ER 150 mg capsule,extended release 24 hr RxNorm: 968703 TAKE ONE CAPSULE BY MOUTH ONCE DAILY 11/14/2015 02/11/2016 Inactive levothyroxine 125 mcg tablet RxNorm: 660682 Tablet(s) TAKE ONE TABLET BY MOUTH ONCE DAILY 11/06/2015 04/14/2016 Inactive levothyroxine 125 mcg tablet RxNorm: 447645 Tablet(s) TAKE ONE TABLET BY MOUTH ONCE DAILY 08/06/2015 11/03/2015 Inactive meclizine 25 mg tablet RxNorm: 070038 1/2-1 Tablet(s) PO Q6 as needed 07/16/2015 No Stop Date Active Flonase Allergy Relief 50 mcg/actuation nasal spray,suspension RxNorm: 1 [place] NASAL daily 06/13/2015 No Stop Date Active prednisone 20 mg tablet RxNorm: 517304 2 Tablet(s) PO daily 06/13/2015 06/17/2015 Inactive Augmentin 875 mg-125 mg tablet RxNorm: 695263 1 Tablet(s) PO BID 06/13/2015 06/19/2015 Inactive Zithromax Z-Kulwant 250 mg tablet RxNorm: 434614 1 Tablet(s) PO UD 06/07/2015 06/11/2015 Inactive zpashlomo Kenalog 40 mg/mL suspension for injection RxNorm: 3332963 Milliliter(s) Inj 06/07/2015 06/07/2015 Inactive venlafaxine ER 150 mg capsule,extended release 24 hr RxNorm: 844016 TAKE ONE CAPSULE BY MOUTH ONCE DAILY 05/14/2015 11/09/2015 Inactive Augmentin 500 mg-125 mg tablet RxNorm: 345983 1 Tablet(s) PO TID 04/25/2015 05/04/2015 Inactive Augmentin 500 mg-125 mg tablet RxNorm: 528910 1 Tablet(s) PO TID 04/25/2015 04/24/2015 Inactive pravastatin 10 mg tablet RxNorm: 178470 1 Tablet(s) PO daily take with coenzyme q 10 daily 03/21/2015 07/18/2015 Inactive DC crestor pravastatin 10 mg tablet RxNorm: 228541 1 Tablet(s) PO daily take with coenzyme q 10 daily 03/21/2015 03/20/2015 Inactive DC crestor Zofran ODT 4 mg disintegrating tablet RxNorm: 529491 1 Tablet(s) PO Q6 PRN 03/13/2015 02/21/2016 Inactive levothyroxine 125 mcg tablet RxNorm: 379618 TAKE ONE TABLET BY MOUTH ONCE DAILY 02/13/2015 08/05/2015 Inactive meloxicam 15 mg tablet RxNorm: 461355 1 Tablet(s) PO daily 01/28/2015 01/22/2016 Inactive Zofran 4 mg tablet RxNorm: 876495 1 Tablet(s) PO Q6-8H as needed nausea 01/24/2015 No Stop Date Active Trulicity 1.5 mg/0.5 mL subcutaneous pen injector RxNorm: 4990060 0.75mg Milliliter(s) SQ QW 01/10/2015 No Stop Date Active venlafaxine ER 150 mg capsule,extended release 24 hr RxNorm: 042269 1 Capsule(s) PO daily 01/10/2015 05/09/2015 Inactive enalapril maleate 5 mg tablet RxNorm: 903761 1 Tablet(s) PO daily 01/04/2015 07/02/2015 Inactive amoxicillin 500 mg tablet RxNorm: 049636 1 Tablet(s) PO BID 12/07/2014 12/06/2014 Inactive Probiotic & Acidophilus 300 million cell-250 mg capsule RxNorm: 1 Capsule(s) PO BID 12/07/2014 12/16/2014 Inactive amoxicillin 500 mg tablet RxNorm: 670989 1 Tablet(s) PO BID 12/07/2014 12/16/2014 Inactive Kenalog 40 mg/mL suspension for injection RxNorm: 7951420 1 Milliliter(s) Inj 12/07/2014 12/07/2014 Inactive meloxicam 15 mg tablet RxNorm: 683921 1 Tablet(s) PO daily 10/24/2014 10/23/2014 Inactive meloxicam 15 mg tablet RxNorm: 678681 1 Tablet(s) PO daily 10/24/2014 01/27/2015 Inactive azithromycin 500 mg tablet RxNorm: 448956 1 Tablet(s) PO daily 10/11/2014 10/15/2014 Inactive azithromycin 500 mg tablet RxNorm: 234988 1 Tablet(s) PO daily 10/11/2014 10/10/2014 Inactive levothyroxine 125 mcg tablet RxNorm: 449770 1 Tablet(s) PO daily 10/06/2014 02/02/2015 Inactive enalapril maleate 5 mg tablet RxNorm: 089579 1 Tablet(s) PO daily 08/29/2014 12/26/2014 Inactive enalapril maleate 5 mg tablet RxNorm: 053884 1 Tablet(s) PO daily 08/25/2014 08/28/2014 Inactive Medroxy oral RxNorm: 4121897 oral No Start Date Active Vitamin D3 5,000 unit tablet RxNorm: 643069 1 Tablet(s) PO daily No Start Date Active fluconazole 200 mg tablet RxNorm: 196848 Tablet(s) PO No Start Date Active estradiol 2 mg tablet RxNorm: 388739 1 Tablet(s) PO daily No Start Date Active fenofibrate nanocrystallized 145 mg tablet RxNorm: 584436 1 Tablet(s) PO daily No Start Date Active hydrocodone 5 mg-acetaminophen 325 mg tablet RxNorm: 005037 1-2 Tablet(s) PO Q4-6H as needed No Start Date Active enalapril maleate 5 mg tablet RxNorm: 431518 1 Tablet(s) PO daily No Start Date 08/24/2014 Inactive glimepiride 4 mg tablet RxNorm: 691137 1 Tablet(s) PO daily No Start Date 01/26/2017 Inactive meclizine 25 mg tablet RxNorm: 728660 1/2-1 Tablet(s) PO Q6 as needed No Start Date 07/15/2015 Inactive Trulicity 0.75 mg/0.5 mL subcutaneous pen injector RxNorm: 7962084 0.75mg Milliliter(s) SQ QW No Start Date 01/09/2015 Inactive metformin 1,000 mg tablet RxNorm: 164073 Tablet(s) PO BID No Start Date 01/26/2017 Inactive venlafaxine ER 150 mg capsule,extended release 24 hr RxNorm: 755476 1 Capsule(s) PO daily No Start Date 01/09/2015 Inactive meloxicam 15 mg tablet RxNorm: 688785 1 Tablet(s) PO daily No Start Date 10/23/2014 Inactive levothyroxine 125 mcg tablet RxNorm: 269272 1 Tablet(s) PO daily No Start Date 10/05/2014 Inactive Levemir FlexTouch 100 unit/mL (3 mL) subcutaneous insulin pen RxNorm: 058803 15 Unit(s) SQ daily No Start Date 02/03/2017 Inactive Zithromax Z-Kulwant 250 mg tablet RxNorm: 743129 1 Tablet(s) PO UD No Start Date 05/20/2016 Inactive Fish Oil 1,000 mg capsule RxNorm: 1 Capsule(s) PO BID No Start Date 11/04/2016 Inactive Zofran 4 mg tablet RxNorm: 710658 1 Tablet(s) PO Q6-8H as needed nausea No Start Date 01/23/2015 Inactive Crestor 10 mg tablet RxNorm: 505713 1 Tablet(s) PO daily No Start Date 03/20/2015 Inactive Medication Administered Medication Codes Instructions Start Date Status Kenalog 40 mg/mL suspension for injection RxNorm: 7229830 1Milliliter 11/30/2017 No longer Active Kenalog 40 mg/mL suspension for injection RxNorm: 2343504 1Milliliter 05/28/2017 No longer Active ceftriaxone 500 mg solution for injection RxNorm: 2187613 1 05/28/2017 No longer Active Kenalog 40 mg/mL suspension for injection RxNorm: 2804204 Milliliter 03/26/2016 No longer Active Kenalog 40 mg/mL suspension for injection RxNorm: 1764148 Milliliter 06/07/2015 No longer Active Kenalog 40 mg/mL suspension for injection RxNorm: 7894940 1Milliliter 12/07/2014 No longer Active Immunizations Vaccine [...] Item Item Code Result Date CHEM 14 [id number] AST TNP:Lab Request 01/27/2017 CHEM 14 [id number] ALT TNP:Lab Request 01/27/2017 CHEM 14 [id number] BUN TNP:Lab Request 01/27/2017 CHEM 14 [id number] ALBUMIN TNP:Lab Request 01/27/2017 CHEM 14 [id number] CHLORIDE TNP:Lab Request 01/27/2017 CHEM 14 [id number] Bili Total TNP:Lab Request 01/27/2017 CHEM 14 [id number] ALK PHOS TNP:Lab Request 01/27/2017 CHEM 14 [id number] SODIUM TNP:Lab Request 01/27/2017 CHEM 14 [id number] CREATININE TNP:Lab Request 01/27/2017 CHEM 14 [id number] CALCIUM TNP:Lab Request 01/27/2017 CHEM 14 [id number] POTASSIUM TNP:Lab Request 01/27/2017 CHEM 14 [id number] TOTAL PROTEIN TNP:Lab Request 01/27/2017 CHEM 14 [id number] GLUCOSE TNP:Lab Request 01/27/2017 CHEM 14 [id number] Bicarbonate TNP:Lab Request 01/27/2017 CHEM 14 [id number] AGAP TNP:Lab Request 01/27/2017 AMYLASE [id number] Amylase Lvl TNP:Lab Request 01/27/2017 LIPID GRP CHOLESTEROL 273 mg/dL 2016 LIPID GRP Triglyceride 583 mg/dL 2016 LIPID GRP HDL CHOLESTEROL 48 mg/dL 2016 LIPID GRP Chol/HDL Ratio 5.69 ratio 2016 LIPID GRP NON-HDL Chol 225 mg/dL 2016 LIPID GRP LDL Cholesterol N/A Trig >400 2016 A1C HPLC 7027215 Hgb A1c 78563-3 7.3 % 2016 TSH 1907931 TSH 1.340 uIU/mL 2016 FREE T4 2858741 T4 Free 1.60 ng/dL 2016 MEAN GLUC 1645708 Calc Mean Gluc 163 mg/dL 2016 GFR CALC 5484290 GFR Non Afr Amr >60 mL/min 2016 GFR CALC 3409163 GFR Afr Amr >60 mL/min 2016 CBC 4174314 WBC 8.1 10e9/L 2016 CBC 4250158 RBC 4.41 10e12/L 2016 CBC 7911196 HEMOGLOBIN 13.2 g/dL 2016 CBC 5615917 HEMATOCRIT 39.6 % 2016 CBC 8221235 MCV 89.8 fL 2016 CBC 1672955 MCH 29.9 pg 2016 CBC 5429012 MCHC 33.3 g/dL 2016 CBC 1930708 PLATELET COUNT 298 10e9/L 2016 CBC 1155859 Mean Plt Volume 10.5 fL 2016 CBC 9196689 Neut Auto 61.3 % 2016 CBC 8934731 Lymph Auto 26.3 % 2016 CBC 8668021 [place] Auto 7.7 % 2016 CBC 8977353 RDW 13.6 % 2016 CBC 6526162 Eos Auto 4.2 % 2016 CBC 9321878 Baso Auto 0.5 % 2016 CBC 4546606 Neutrophil Abs 4.97 10e9/L 2016 CBC 9627289 Lymphocyte Abs 2.13 10e9/L 2016 CBC 1290858 Monocyte Abs 0.62 10e9/L 2016 CBC 3050381 Eosinophil Abs 0.34 10e9/L 2016 CBC 3565746 Basophil Abs 0.04 10e9/L 2016 CBC 2720718 RDW-SD 44.1 fL 2016 CHEM 14 7993097 AST 19 U/L 2016 CHEM 14 4679285 ALT 26 U/L 2016 CHEM 14 0443661 BUN 20 mg/dL 2016 CHEM 14 7419167 ALBUMIN 4.1 g/dL 2016 CHEM 14 5640456 CHLORIDE 99 mmol/L 2016 CHEM 14 2643332 Bili Total 0.3 mg/dL 2016 CHEM 14 2295092 ALK PHOS 55 U/L 2016 CHEM 14 4315196 SODIUM 135 mmol/L 2016 CHEM 14 8556867 CREATININE 0.87 mg/dL 2016 CHEM 14 1750203 CALCIUM 9.3 mg/dL 2016 CHEM 14 1878780 POTASSIUM 4.0 mmol/L 2016 CHEM 14 3887541 TOTAL PROTEIN 7.0 g/dL 2016 CHEM 14 2239882 GLUCOSE 149 mg/dL 2016 CHEM 14 7115294 Bicarbonate 26 mmol/L 2016 CHEM 14 8914664 AGAP 10 mmol/L 2016 Review of Systems [...] affect 12/21/2017 None Full Exam - General 1995 Psychiatric [...] accomodation 11/07/2016 None Full Exam - General 1995 Ears/Nose/Throat otoscopic exam Overall: external auditory canals clear 11/07/2016 None Full Exam - General 1994 Ears/Nose/Throat otoscopic exam Overall: tympanic membranes clear 11/07/2016 None Full Exam - General 1994 Ears/Nose/Throat lips/teeth/gingiva Overall: benign lips 11/07/2016 None Full Exam - General 1995 Ears/Nose/Throat [...] 4: J0696 05/28/2017 THER/PROPH/DIAG INJ SC/IM CPT-4: 82791 05/19/2017 KETOROLAC TROMETHAMINE INJ CPT-4: J1885 05/19/2017 TRIAMCINOLONE ACET INJ NOS CPT-4: J3301 03/26/2016 TRIAMCINOLONE ACET INJ NOS CPT-4: J3301 06/07/2015 THER/PROPH/DIAG INJ SC/IM CPT-4: 56181 12/07/2014 TRIAMCINOLONE ACET INJ NOS CPT-4: J3301 12/07/2014 Vital Signs Date Vital 02/17/2018 Blood Pressure 1: 132/76 Code: 8480-6 BMI: 33.5 Code: 53588-2 Heart Rate 1: 92 bpm Height: 5'7" SpO2: 98% Weight: 214 lbs 12/21/2017 Blood Pressure 1: 154/78 Code: 8480-6 BMI: 33.5 Code: 74742-0 Heart Rate 1: 93 bpm Height: 5'7" SpO2: 96% Weight: 214 lbs 11/30/2017 Blood Pressure 1: 148/88 Code: 8480-6 BMI: 33.5 Code: 76056-9 Heart Rate 1: 80 bpm Height: 5'7" SpO2: 97% Temperature: 36.9 (C) / 98.5 (F) Weight: 214 lbs 05/28/2017 Blood Pressure 1: 128/70 Code: 8480-6 BMI: 31.3 Code: 45585-9 Heart Rate 1: 103 bpm Height: 5'7" SpO2: 98% Temperature: 36.7 (C) / 98.1 (F) Weight: 200 lbs 05/19/2017 Blood Pressure 1: 150/72 Code: 8480-6 04/16/2017 Blood Pressure 1: 146/88 Code: 8480-6 BMI: 31.3 Code: 04409-3 Heart Rate 1: 96 bpm Height: 5'7" SpO2: 94% Temperature: 37.2 (C) / 99.0 (F) Weight: 200 lbs 02/10/2017 Blood Pressure 1: 132/72 Code: 8480-6 BMI: 31.3 Code: 45327-1 Heart Rate 1: 99 bpm Height: 5'7" SpO2: 97% Weight: 200 lbs 02/02/2017 Blood Pressure 1: 140/68 Code: 8480-6 BMI: 31.4 Code: 35550-1 Heart Rate 1: 82 bpm Height: 5'7" SpO2: 97% Weight: 200 lbs 8 oz 01/27/2017 Blood Pressure 1: 142/80 Code: 8480-6 BMI: 32.2 Code: 65773-1 Height: 5'7" Temperature: 37.2 (C) / 98.9 (F) Weight: 205 lbs 8 oz 11/07/2016 Blood Pressure 1: 148/82 Code: 8480-6 BMI: 32.7 Code: 18635-0 Heart Rate 1: 106 bpm Height: 5'7" SpO2: 97% Weight: 209 lbs 03/26/2016 Blood Pressure 1: 140/86 Code: 8480-6 Heart Rate 1: 90 bpm Height: SpO2: 97% Weight: 12/13/2015 Blood Pressure 1: 132/72 Code: 8480-6 BMI: 31.2 Code: 54850-7 Heart Rate 1: 84 bpm Height: 5'7" SpO2: 98% Weight: 199 lbs 08/15/2015 Blood Pressure 1: 138/88 Code: 8480-6 BMI: 32.1 Code: 20834-3 Heart Rate 1: 94 bpm Height: 5'7" SpO2: 97% Weight: 205 lbs 06/13/2015 Blood Pressure 1: 146/78 Code: 8480-6 Blood Pressure 1: 188/88 Code: 8480-6 BMI: 32.6 Code: 02912-0 Heart Rate 1: 97 bpm Height: 5'7" SpO2: 98% Weight: 208 lbs 06/07/2015 Blood Pressure 1: 128/82 Code: 8480-6 BMI: 32.4 Code: 41377-4 Heart Rate 1: 80 bpm Height: 5'7" SpO2: 99% Weight: 207 lbs 03/13/2015 Blood Pressure 1: 124/70 Code: 8480-6 BMI: 31.6 Code: 40792-8 Heart Rate 1: 103 bpm Height: 5'7" Respiratory Rate: 18 bpm SpO2: 97% Temperature: 36.6 (C) / 97.8 (F) Weight: 202 lbs 12/07/2014 Blood Pressure 1: 140/80 Code: 8480-6 BMI: 32.3 Code: 99918-9 Heart Rate 1: 97 bpm Height: 5'7" SpO2: 99% Weight: 206 lbs 09/07/2014 Blood Pressure 1: 132/78 Code: 8480-6 BMI: 31.2 Code: 91782-2 Heart Rate 1: 92 bpm Height: 5'7" [...] with shunt placement- 6-12-15- Dr Ruvalcaba in [place] did surgery headache Onset and Resolution ongoing [...] skin[ICD10: R20.2] [facility] CPT-4: 37126 02/17/2018 [id number] EST. PATIENT, LEVEL IV Diagnosis: Pain in right shoulder[ICD10: M25.511] Diagnosis: Rash and other nonspecific skin eruption[ICD10: R21] [facility] CPT-4: 17482 12/21/2017 [id number] EST. PATIENT, LEVEL IV Diagnosis: Other acute sinusitis[ICD10: J01.80] Diagnosis: Other allergic rhinitis[ICD10: J30.89] Diagnosis: Localized edema[ICD10: R60.0] [facility] CPT-4: 61976 11/30/2017 ([id number]) 41534 EST. PATIENT, LEVEL III Diagnosis: Acute recurrent maxillary sinusitis[ICD10: J01.01] Diagnosis: Cough[ICD10: R05] Tavia Dunham MD [facility] CPT-4: 05304 05/28/2017 ([id number]) 63027 EST. PATIENT, LEVEL III Diagnosis: Acute laryngopharyngitis[ICD10: J06.0] Diagnosis: Cough[ICD10: R05] Tavia Dunham MD, [facility] CPT-4: 03467 04/16/2017 [id number] EST. PATIENT, LEVEL III Diagnosis: Left lower quadrant pain[ICD10: R10.32] Aditi Dunham MD [facility] CPT-4: 22984 02/10/2017 ([id number]) 79185 EST. PATIENT, LEVEL III Diagnosis: Pain in thoracic spine[ICD10: M54.6] Diagnosis: Other muscle spasm[ICD10: M62.838] Tavia Dunham MD [facility] CPT- 4: 43869 02/02/2017 ([id number]) 02568 EST. PATIENT, LEVEL IV Diagnosis: Other acute pancreatitis without necrosis or infection[ICD10: K85.80] Diagnosis: Epigastric pain[ICD10: R10.13] Diagnosis: Type 2 diabetes mellitus without complications[ICD10: E11.9] Tavia Dunham MD [facility] CPT-4: 18280 01/27/2017 [id number] EST. PATIENT, LEVEL IV Diagnosis: Essential (primary) hypertension[ICD10: I10] Diagnosis: Type 1 diabetes mellitus without complications[ICD10: E10.9] Diagnosis: Other specified hypothyroidism[ICD10: E03.8] Diagnosis: Bilateral primary osteoarthritis of hip[ICD10: M16.0] Diagnosis: Actinic keratosis[ICD10: L57.0] Aditi Dunham MD, [facility] CPT-4: 28086 11/07/2016 [id number] EST. PATIENT, LEVEL III Diagnosis: Other acute sinusitis[ICD10: J01.80] Diagnosis: Other allergic rhinitis[ICD10: J30.89] Diagnosis: Cough[ICD10: R05] Aditi Dunham MD, [facility] CPT-4: 17605 03/26/2016 ([id number]) 67111 EST. PATIENT, LEVEL IV Diagnosis: Essential (primary) hypertension[ICD10: I10] Diagnosis: Pure hyperglyceridemia[ICD10: E78.1] Tavia Dunham MD, [facility] CPT- 4: 42241 12/13/2015 ([id number]) 27109 EST. PATIENT, LEVEL III Diagnosis: Essential (primary) hypertension[ICD10: I10] Diagnosis: (Idiopathic) normal pressure hydrocephalus[ICD10: G91.2] Tavia Dunham MD, [facility] CPT-4: 31998 08/15/2015 [id number] EST. PATIENT, LEVEL III Diagnosis: Other acute nonsuppurative otitis media, right ear[ICD10: H65.191] Diagnosis: Acute upper respiratory infection, unspecified[ICD10: J06.9] Aditi Dunham MD, [facility] CPT-4: 53785 06/13/2015 ([id number]) 73039 EST. PATIENT, LEVEL III Diagnosis: Acute recurrent maxillary sinusitis[ICD10: J01.01] Diagnosis: Allergic rhinitis due to pollen[ICD10: J30.1] Kaylan Dunham MD, [facility] CPT-4: 79991 06/07/2015 ([id number]) 03146 EST. PATIENT, LEVEL IV Diagnosis: (Idiopathic) normal pressure hydrocephalus[ICD10: G91.2] Diagnosis: Essential (primary) hypertension[ICD10: I10] Diagnosis: Dizziness and giddiness[ICD10: R42] Diagnosis: Nausea with vomiting, unspecified[ICD10: R11.2] Kaylan Dunham MD, [facility] CPT-4: 08071 03/13/2015 [id number] EST. PATIENT, LEVEL III Diagnosis: Acute sinusitis, unspecified[ICD10: J01.90] Diagnosis: Allergic rhinitis, unspecified[ICD10: J30.9] Tavia Dunham MD, [facility] CPT-4: 08850 12/07/2014 ([id number]) [id number] EST. PATIENT, LEVEL IV Diagnosis: ESSENTIAL HYPERTENSION[ICD9: 401.9] Diagnosis: DIABETES TYPE II[ICD9: 250.00] Diagnosis: NPH (normal pressure hydrocephalus)[ICD9: 331.5] Diagnosis: Hypertriglyceridemia[ICD9: 272.1] [facility] CPT- 4: 77051 09/07/2014 ([id number]) OFFICE/OUTPATIENT VISIT NEW Diagnosis: DIABETES TYPE II[ICD9: 250.00] Diagnosis: ESSENTIAL HYPERTENSION[ICD9: 401.9] Diagnosis: NPH (normal pressure hydrocephalus)[ICD9: 331.5] Diagnosis: Abnormal gait[ICD9: 781.2] Diagnosis: VITAMIN D DEFICIENCY[ICD9: 268.9] Tavia Dunham MD, [facility] CPT- 4: 01965 08/07/2014 Plan of Care Planned Activity Notes Codes Status Date Visit Plan: Parasthesia - ongoing for about a month - will send RX and refer pt for EMG - The pt is to use prn antiinflammatories to manage acute pain. The patient is to call the office if the pain is worsening or does not improve. 02/17/2018 Appointment: Aditi Hamilton WPtel: [address] [place], [place] [id number] (15 min) Moderate 02/17/2018 Patient Education: Patient [...] warmth, discharge. 12/21/2017 Appointment: Aditi Hamilton WPtel: [facility] (15 min) Moderate 12/21/2017 Patient Education: Patient Medication Summary Completed 12/21/2017 Appointment: Tavia Dunham WPtel: [address] [place], [place] [phone] (15 min) Moderate 12/02/2017 Visit Plan: Sinusitis [...] peripheral edema. 11/30/2017 Appointment: Aditi Hamilton WPtel: [facility] (15 min) Moderate 11/30/2017 Patient Education: Patient Medication Summary Completed 11/30/2017 Care Plan: Comp Metabolic Pending 11/30/2017 Care Plan: Cbc With Differential Pending 11/30/2017 Care Plan: %Hba1C LOINC : 04950-9 Pending 11/30/2017 Care Plan: Lipid Pending 11/30/2017 Care Plan: Tsh Pending 11/30/2017 Care Plan: Free T4 Pending 11/30/2017 Appointment: Tavia Dunham WPtel: [address] [place], [place] [phone] (15 min) Moderate 11/26/2017 Appointment: Kaylan Melendez WPtel: [address] [place], [place] [phone] [place] (30 min) Complex 08/13/2017 Appointment: Tavia Dunham WPtel: [facility] (15 min) Moderate 08/04/2017 Appointment: Tavia Dunham WPtel: [address] [place], [place] [phone] (15 min) Moderate 07/20/2017 Visit Plan: Sinusitis [...] today 05/28/2017 Appointment: Tavia Dunham WPtel: [phone] [facility] [place] (30 min) Complex 05/28/2017 Patient [...] pharmacy. 04/16/2017 Appointment: Tavia Dunham WPtel: [facility] [place] (15 min) Moderate 04/16/2017 Patient Education: [...] or concerns. 02/10/2017 Appointment: Aditi Hamilton [facility]el[facility] [place] (15 min) Moderate 02/10/2017 Patient Education: Patient Medication Summary Completed 02/10/2017 Patient Education: Obesity Completed 02/10/2017 Visit Plan: Pain in Thoracic spine with muscle spasm - ibuprofen 600mg three times daily x 3 days, rx for cyclobenzaprine. 02/02/2017 Appointment: Tavia Dunham WPtel: [facility] [place] (15 min) Moderate 02/02/2017 Patient Education: [...] today. 01/27/2017 Appointment: [facility] Dunham [facility]el[phone] (15 min) Moderate 01/27/2017 Patient Education: Patient [...] symptoms. 11/07/2016 Appointment: [facility] Hamilton [phone] (30 min) Complex 11/07/2016 Patient Education: Patient [...] allergy spray. 03/26/2016 Appointment: Aditi Hamilton WPtel: [address] [place] [id number] (30 min) Complex 03/26/2016 Patient Education: Patient [...] to medications. 12/13/2015 Appointment: Tavia Dunham WPtel: [facility] (15 min) Moderate 12/13/2015 Patient Education: Patient [...] on supplement. 08/07/2014 Appointment: Tavia Dunham WPtel: [facility] [place] (S[place] New Patient 08/07/2014 Patient Education: [...]
--- OUTSIDE RECORDS SUMMARY | 2018-10-08 11:47 | XMS REPORT | CCD ---
Author Author [facility] Organization [facility] Address [address] [place] [address] Phone Care Team Providers Care Section Laborer Name Role Phone PP Unavailable CCM Unavailable Summary Purpose Interface Exchange Insurance Providers Payer name Policy type / Coverage type Covered libertarian ID Effective Begin Date Effective End Date Blue Cross Blue [facility] Blue Cross/Blue [facility] [id number] Unknown Family history Mother Diagnosis Age At Onset Cancer Unknown Arthritis Unknown Depression Unknown Hyperlipidemia Unknown Diabetes mellitus Type 2 Unknown Social History Social History Element Codes Description Effective Dates Marital status Unknown [place] 08/07/2014 Number of children Unknown 0 08/07/2014 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[employer] 08/07/[address]: 436683349 Never smoker 08/07/[address]: 622926123 Never drinks alcohol 08/07/2014 Allergies, Adverse Reactions, [...] Fill Instructions prednisone 20 mg tablet RxNorm: 903770 2 Tablet(s) PO daily 02/17/2018 02/21/2018 Active levothyroxine 125 mcg tablet RxNorm: 786133 TAKE 1 TABLET BY MOUTH ONCE DAILY 01/11/2018 No Stop Date Active cyclobenzaprine 5 mg tablet RxNorm: 411136 1 Tablet(s) PO TID as needed 12/28/2017 01/11/2018 Inactive Zorvolex 35 mg capsule RxNorm: 4825787 1 Capsule(s) PO TID as needed 12/25/2017 05/23/2018 Active Levemir FlexTouch U-100 Insulin 100 unit/mL (3 mL) subcutaneous pen RxNorm: 164107 INJECT 2O UNITS SUBCUTANEOUSLY TWICE DAILY 12/21/2017 No Stop Date Active cyclobenzaprine 5 mg tablet RxNorm: 038179 1 Tablet(s) PO TID as needed 12/21/2017 12/25/2017 Inactive doxycycline hyclate 100 mg capsule RxNorm: 9533569 1 Capsule(s) PO BID 12/21/2017 12/30/2017 Inactive venlafaxine ER 150 mg capsule,extended release 24 hr RxNorm: 217302 TAKE 1 CAPSULE BY MOUTH ONCE DAILY 12/10/2017 No Stop Date Active Zithromax Z-Kulwant 250 mg tablet RxNorm: 596173 1 Tablet(s) PO UD 12/03/2017 No Stop Date Active z pack as directed Singulair 10 mg tablet RxNorm: 313928 1 Tablet(s) PO daily 12/03/2017 12/02/2017 Inactive Singulair 10 mg tablet RxNorm: 484788 1 Tablet(s) PO daily 12/03/2017 01/01/2018 Inactive Kenalog 40 mg/mL suspension for injection RxNorm: 4869424 1 Milliliter(s) Inj 11/30/2017 11/30/2017 Inactive prednisone 20 mg tablet RxNorm: 641913 2 Tablet(s) PO daily 11/30/2017 12/04/2017 Inactive Augmentin 875 mg-125 mg tablet RxNorm: 304640 1 Tablet(s) PO BID 11/27/2017 11/26/2017 Inactive Augmentin 875 mg-125 mg tablet RxNorm: 585891 1 Tablet(s) PO BID 11/27/2017 12/03/2017 Inactive Zorvolex 35 mg capsule RxNorm: 4688602 1 Capsule(s) PO TID as needed 11/09/2017 12/24/2017 Inactive hydrochlorothiazide 25 mg tablet RxNorm: 938603 1 Tablet(s) PO daily 10/22/2017 02/18/2018 Active enalapril maleate 5 mg tablet RxNorm: 281046 1 Tablet(s) PO daily TAKE ONE TABLET BY MOUTH ONCE DAILY 08/21/2017 02/16/2018 Inactive Levemir FlexTouch U-100 Insulin 100 unit/mL (3 mL) subcutaneous pen RxNorm: 608858 20 Unit(s) SQ BID 07/30/2017 12/20/2017 Inactive levothyroxine 125 mcg tablet RxNorm: 699168 TAKE ONE TABLET BY MOUTH ONCE DAILY 06/29/2017 01/10/2018 Inactive venlafaxine ER 150 mg capsule,extended release 24 hr RxNorm: 042361 1 Capsule(s) PO daily TAKE ONE CAPSULE BY MOUTH ONCE DAILY 06/08/2017 12/04/2017 Inactive prednisone 20 mg tablet RxNorm: 180590 1 Tablet(s) PO daily 06/02/2017 06/06/2017 Inactive prednisone 20 mg tablet RxNorm: 177449 1 Tablet(s) PO daily 06/01/2017 06/05/2017 Inactive Kenalog 40 mg/mL suspension for injection RxNorm: 0445795 1 Milliliter(s) Inj 05/28/2017 05/28/2017 Inactive cefdinir 300 mg capsule RxNorm: 155413 1 Capsule(s) PO BID 05/28/2017 06/03/2017 Inactive ceftriaxone 500 mg solution for injection RxNorm: 6468305 1 Inj 05/28/2017 05/28/2017 Inactive prednisone 20 mg tablet RxNorm: 620469 1 Tablet(s) PO daily 05/28/2017 05/31/2017 Inactive Keflex 500 mg capsule RxNorm: 735753 1 Capsule(s) PO TID 05/26/2017 06/01/2017 Inactive Keflex 500 mg capsule RxNorm: 480996 1 Capsule(s) PO TID 05/26/2017 05/25/2017 Inactive hydrocodone 10 mg-chlorpheniramine 8 mg/5 mL oral susp extend.rel 12hr RxNorm: 1084408 5-10 Milliliter(s) PO TID as needed 04/16/2017 No Stop Date Active Tussionex Pennkinetic ER 10 mg-8 mg/5 mL suspension,extended release RxNorm: 4313337 5 Milliliter(s) PO BID 04/16/2017 04/27/2017 Inactive Zithromax Z-Kulwant 250 mg tablet RxNorm: 254748 1 Tablet(s) PO UD 03/25/2017 04/15/2017 Inactive z pack as directed enalapril maleate 5 mg tablet RxNorm: 124395 TAKE ONE TABLET BY MOUTH ONCE DAILY 02/26/2017 08/20/2017 Inactive Levemir FlexTouch 100 unit/mL (3 mL) subcutaneous insulin pen RxNorm: 289152 20 Unit(s) SQ BID 02/10/2017 07/11/2017 Inactive Zorvolex 35 mg capsule RxNorm: 6437698 1 Capsule(s) PO TID as needed 02/10/2017 11/08/2017 Inactive valacyclovir 1 gram tablet RxNorm: 783154 1 Tablet(s) PO TID 02/10/2017 02/16/2017 Inactive Levemir FlexTouch 100 unit/mL (3 mL) subcutaneous insulin pen RxNorm: 387114 20 Unit(s) SQ BID 02/04/2017 02/09/2017 Inactive cyclobenzaprine 5 mg tablet RxNorm: 811025 1 Tablet(s) PO qhs x 3 nights and TID as needed muscle spasms 02/02/2017 No Stop Date Active levothyroxine 125 mcg tablet RxNorm: 584857 TAKE ONE TABLET BY MOUTH ONCE DAILY 12/08/2016 06/05/2017 Inactive venlafaxine ER 150 mg capsule,extended release 24 hr RxNorm: 592784 TAKE ONE CAPSULE BY MOUTH ONCE DAILY 12/01/2016 05/29/2017 Inactive Zorvolex 35 mg capsule RxNorm: 1013332 1 Capsule(s) PO TID as needed do not take meloxicam at the same time 11/07/2016 No Stop Date Active enalapril maleate 5 mg tablet RxNorm: 280013 TAKE ONE TABLET BY MOUTH ONCE DAILY 10/31/2016 12/29/2016 Inactive meloxicam 15 mg tablet RxNorm: 360137 TAKE ONE TABLET BY MOUTH ONCE DAILY 10/30/2016 04/27/2017 Inactive meloxicam 15 mg tablet RxNorm: 893339 TAKE ONE TABLET BY MOUTH ONCE DAILY 10/24/2016 10/29/2016 Inactive enalapril maleate 5 mg tablet RxNorm: 330474 TAKE ONE TABLET BY MOUTH ONCE DAILY 10/24/2016 10/30/2016 Inactive venlafaxine ER 150 mg capsule,extended release 24 hr RxNorm: 038273 TAKE ONE CAPSULE BY MOUTH ONCE DAILY 06/16/2016 11/12/2016 Inactive meloxicam 15 mg tablet RxNorm: 483060 TAKE ONE TABLET BY MOUTH ONCE DAILY 06/09/2016 10/06/2016 Inactive enalapril maleate 5 mg tablet RxNorm: 851714 TAKE ONE TABLET BY MOUTH ONCE DAILY 06/02/2016 09/29/2016 Inactive Zithromax Z-Kulwant 250 mg tablet RxNorm: 497119 1 Tablet(s) PO UD 05/21/2016 06/15/2016 Inactive levothyroxine 125 mcg tablet RxNorm: 865467 Tablet(s) TAKE ONE TABLET BY MOUTH ONCE DAILY 04/15/2016 10/11/2016 Inactive Levaquin 500 mg tablet RxNorm: 996310 1 Tablet(s) PO daily 04/03/2016 04/09/2016 Inactive Levaquin 500 mg tablet RxNorm: 693339 1 Tablet(s) PO daily 04/03/2016 04/02/2016 Inactive prednisone 20 mg tablet RxNorm: 502792 2 Tablet(s) PO daily 03/28/2016 04/01/2016 Inactive Zithromax Z-Kulwant 250 mg tablet RxNorm: 046082 1 Tablet(s) PO UD 03/26/2016 03/30/2016 Inactive zpack Kenalog 40 mg/mL suspension for injection RxNorm: 1645462 Milliliter(s) Inj 03/26/2016 03/26/2016 Inactive Zofran ODT 4 mg disintegrating tablet RxNorm: 436079 DISSOLVE ONE TABLET IN MOUTH EVERY 6 HOURS NEEDED 02/22/2016 02/29/2016 Inactive venlafaxine ER 150 mg capsule,extended release 24 hr RxNorm: 839953 TAKE ONE CAPSULE BY MOUTH ONCE DAILY 02/18/2016 06/15/2016 Inactive meloxicam 15 mg tablet RxNorm: 582808 TAKE ONE TABLET BY MOUTH ONCE DAILY 02/04/2016 06/02/2016 Inactive aspirin 81 mg chewable tablet RxNorm: 158361 1 Tablet(s) PO daily 12/13/2015 12/06/2016 Inactive biotin 2,500 mcg tablet RxNorm: 254932 1 Tablet(s) PO daily 12/13/2015 09/07/2016 Inactive hydrochlorothiazide 25 mg tablet RxNorm: 328950 1 Tablet(s) PO daily 12/13/2015 04/10/2016 Inactive enalapril maleate 5 mg tablet RxNorm: 864056 TAKE ONE TABLET BY MOUTH ONCE DAILY 11/22/2015 05/19/2016 Inactive venlafaxine ER 150 mg capsule,extended release 24 hr RxNorm: 590162 TAKE ONE CAPSULE BY MOUTH ONCE DAILY 11/14/2015 02/11/2016 Inactive levothyroxine 125 mcg tablet RxNorm: 027778 Tablet(s) TAKE ONE TABLET BY MOUTH ONCE DAILY 11/06/2015 04/14/2016 Inactive levothyroxine 125 mcg tablet RxNorm: 760806 Tablet(s) TAKE ONE TABLET BY MOUTH ONCE DAILY 08/06/2015 11/03/2015 Inactive meclizine 25 mg tablet RxNorm: 162734 1/2-1 Tablet(s) PO Q6 as needed 07/16/2015 No Stop Date Active Flonase Allergy Relief 50 mcg/actuation nasal spray,suspension RxNorm: 1 [place] NASAL daily 06/13/2015 No Stop Date Active prednisone 20 mg tablet RxNorm: 744760 2 Tablet(s) PO daily 06/13/2015 06/17/2015 Inactive Augmentin 875 mg-125 mg tablet RxNorm: 033421 1 Tablet(s) PO BID 06/13/2015 06/19/2015 Inactive Zithromax Z-Kulwant 250 mg tablet RxNorm: 921370 1 Tablet(s) PO UD 06/07/2015 06/11/2015 Inactive zpashlomo Kenalog 40 mg/mL suspension for injection RxNorm: 2464202 Milliliter(s) Inj 06/07/2015 06/07/2015 Inactive venlafaxine ER 150 mg capsule,extended release 24 hr RxNorm: 576524 TAKE ONE CAPSULE BY MOUTH ONCE DAILY 05/14/2015 11/09/2015 Inactive Augmentin 500 mg-125 mg tablet RxNorm: 966028 1 Tablet(s) PO TID 04/25/2015 05/04/2015 Inactive Augmentin 500 mg-125 mg tablet RxNorm: 293047 1 Tablet(s) PO TID 04/25/2015 04/24/2015 Inactive pravastatin 10 mg tablet RxNorm: 562540 1 Tablet(s) PO daily take with coenzyme q 10 daily 03/21/2015 07/18/2015 Inactive DC crestor pravastatin 10 mg tablet RxNorm: 675272 1 Tablet(s) PO daily take with coenzyme q 10 daily 03/21/2015 03/20/2015 Inactive DC crestor Zofran ODT 4 mg disintegrating tablet RxNorm: 495528 1 Tablet(s) PO Q6 PRN 03/13/2015 02/21/2016 Inactive levothyroxine 125 mcg tablet RxNorm: 301959 TAKE ONE TABLET BY MOUTH ONCE DAILY 02/13/2015 08/05/2015 Inactive meloxicam 15 mg tablet RxNorm: 077940 1 Tablet(s) PO daily 01/28/2015 01/22/2016 Inactive Zofran 4 mg tablet RxNorm: 847324 1 Tablet(s) PO Q6-8H as needed nausea 01/24/2015 No Stop Date Active Trulicity 1.5 mg/0.5 mL subcutaneous pen injector RxNorm: 9203138 0.75mg Milliliter(s) SQ QW 01/10/2015 No Stop Date Active venlafaxine ER 150 mg capsule,extended release 24 hr RxNorm: 528734 1 Capsule(s) PO daily 01/10/2015 05/09/2015 Inactive enalapril maleate 5 mg tablet RxNorm: 785422 1 Tablet(s) PO daily 01/04/2015 07/02/2015 Inactive amoxicillin 500 mg tablet RxNorm: 048084 1 Tablet(s) PO BID 12/07/2014 12/06/2014 Inactive Probiotic & Acidophilus 300 million cell-250 mg capsule RxNorm: 1 Capsule(s) PO BID 12/07/2014 12/16/2014 Inactive amoxicillin 500 mg tablet RxNorm: 128951 1 Tablet(s) PO BID 12/07/2014 12/16/2014 Inactive Kenalog 40 mg/mL suspension for injection RxNorm: 5388423 1 Milliliter(s) Inj 12/07/2014 12/07/2014 Inactive meloxicam 15 mg tablet RxNorm: 404484 1 Tablet(s) PO daily 10/24/2014 10/23/2014 Inactive meloxicam 15 mg tablet RxNorm: 065032 1 Tablet(s) PO daily 10/24/2014 01/27/2015 Inactive azithromycin 500 mg tablet RxNorm: 798807 1 Tablet(s) PO daily 10/11/2014 10/15/2014 Inactive azithromycin 500 mg tablet RxNorm: 875557 1 Tablet(s) PO daily 10/11/2014 10/10/2014 Inactive levothyroxine 125 mcg tablet RxNorm: 890957 1 Tablet(s) PO daily 10/06/2014 02/02/2015 Inactive enalapril maleate 5 mg tablet RxNorm: 433089 1 Tablet(s) PO daily 08/29/2014 12/26/2014 Inactive enalapril maleate 5 mg tablet RxNorm: 183673 1 Tablet(s) PO daily 08/25/2014 08/28/2014 Inactive Medroxy oral RxNorm: 0301299 oral No Start Date Active Vitamin D3 5,000 unit tablet RxNorm: 428355 1 Tablet(s) PO daily No Start Date Active fluconazole 200 mg tablet RxNorm: 859410 Tablet(s) PO No Start Date Active estradiol 2 mg tablet RxNorm: 460824 1 Tablet(s) PO daily No Start Date Active fenofibrate nanocrystallized 145 mg tablet RxNorm: 513214 1 Tablet(s) PO daily No Start Date Active hydrocodone 5 mg-acetaminophen 325 mg tablet RxNorm: 732903 1-2 Tablet(s) PO Q4-6H as needed No Start Date Active enalapril maleate 5 mg tablet RxNorm: 125830 1 Tablet(s) PO daily No Start Date 08/24/2014 Inactive glimepiride 4 mg tablet RxNorm: 685963 1 Tablet(s) PO daily No Start Date 01/26/2017 Inactive meclizine 25 mg tablet RxNorm: 143684 1/2-1 Tablet(s) PO Q6 as needed No Start Date 07/15/2015 Inactive Trulicity 0.75 mg/0.5 mL subcutaneous pen injector RxNorm: 2425865 0.75mg Milliliter(s) SQ QW No Start Date 01/09/2015 Inactive metformin 1,000 mg tablet RxNorm: 730601 Tablet(s) PO BID No Start Date 01/26/2017 Inactive venlafaxine ER 150 mg capsule,extended release 24 hr RxNorm: 209299 1 Capsule(s) PO daily No Start Date 01/09/2015 Inactive meloxicam 15 mg tablet RxNorm: 957002 1 Tablet(s) PO daily No Start Date 10/23/2014 Inactive levothyroxine 125 mcg tablet RxNorm: 374698 1 Tablet(s) PO daily No Start Date 10/05/2014 Inactive Levemir FlexTouch 100 unit/mL (3 mL) subcutaneous insulin pen RxNorm: 114161 15 Unit(s) SQ daily No Start Date 02/03/2017 Inactive Zithromax Z-Kulwant 250 mg tablet RxNorm: 085260 1 Tablet(s) PO UD No Start Date 05/20/2016 Inactive Fish Oil 1,000 mg capsule RxNorm: 1 Capsule(s) PO BID No Start Date 11/04/2016 Inactive Zofran 4 mg tablet RxNorm: 230260 1 Tablet(s) PO Q6-8H as needed nausea No Start Date 01/23/2015 Inactive Crestor 10 mg tablet RxNorm: 035634 1 Tablet(s) PO daily No Start Date 03/20/2015 Inactive Medication Administered Medication Codes Instructions Start Date Status Kenalog 40 mg/mL suspension for injection RxNorm: 3458141 1Milliliter 11/30/2017 No longer Active Kenalog 40 mg/mL suspension for injection RxNorm: 7750405 1Milliliter 05/28/2017 No longer Active ceftriaxone 500 mg solution for injection RxNorm: 5463073 1 05/28/2017 No longer Active Kenalog 40 mg/mL suspension for injection RxNorm: 5629179 Milliliter 03/26/2016 No longer Active Kenalog 40 mg/mL suspension for injection RxNorm: 9217137 Milliliter 06/07/2015 No longer Active Kenalog 40 mg/mL suspension for injection RxNorm: 2262166 1Milliliter 12/07/2014 No longer Active Immunizations Vaccine [...] Item Item Code Result Date CHEM 14 [id number] AST TNP:Lab Request 01/27/2017 CHEM 14 [id number] ALT TNP:Lab Request 01/27/2017 CHEM 14 [id number] BUN TNP:Lab Request 01/27/2017 CHEM 14 [id number] ALBUMIN TNP:Lab Request 01/27/2017 CHEM 14 [id number] CHLORIDE TNP:Lab Request 01/27/2017 CHEM 14 [id number] Bili Total TNP:Lab Request 01/27/2017 CHEM 14 [id number] ALK PHOS TNP:Lab Request 01/27/2017 CHEM 14 [id number] SODIUM TNP:Lab Request 01/27/2017 CHEM 14 [id number] CREATININE TNP:Lab Request 01/27/2017 CHEM 14 [id number] CALCIUM TNP:Lab Request 01/27/2017 CHEM 14 [id number] POTASSIUM TNP:Lab Request 01/27/2017 CHEM 14 [id number] TOTAL PROTEIN TNP:Lab Request 01/27/2017 CHEM 14 [id number] GLUCOSE TNP:Lab Request 01/27/2017 CHEM 14 [id number] Bicarbonate TNP:Lab Request 01/27/2017 CHEM 14 [id number] AGAP TNP:Lab Request 01/27/2017 AMYLASE [id number] Amylase Lvl TNP:Lab Request 01/27/2017 LIPID GRP CHOLESTEROL 273 mg/dL 2016 LIPID GRP Triglyceride 583 mg/dL 2016 LIPID GRP HDL CHOLESTEROL 48 mg/dL 2016 LIPID GRP Chol/HDL Ratio 5.69 ratio 2016 LIPID GRP NON-HDL Chol 225 mg/dL 2016 LIPID GRP LDL Cholesterol N/A Trig >400 2016 A1C HPLC 0740830 Hgb A1c 42841-4 7.3 % 2016 TSH 9524439 TSH 1.340 uIU/mL 2016 FREE T4 8678233 T4 Free 1.60 ng/dL 2016 MEAN GLUC 3059527 Calc Mean Gluc 163 mg/dL 2016 GFR CALC 5789395 GFR Non Afr Amr >60 mL/min 2016 GFR CALC 5853561 GFR Afr Amr >60 mL/min 2016 CBC 9873236 WBC 8.1 10e9/L 2016 CBC 4087583 RBC 4.41 10e12/L 2016 CBC 2321878 HEMOGLOBIN 13.2 g/dL 2016 CBC 6041064 HEMATOCRIT 39.6 % 2016 CBC 8080894 MCV 89.8 fL 2016 CBC 3278217 MCH 29.9 pg 2016 CBC 2540067 MCHC 33.3 g/dL 2016 CBC 8623507 PLATELET COUNT 298 10e9/L 2016 CBC 8402985 Mean Plt Volume 10.5 fL 2016 CBC 5256034 Neut Auto 61.3 % 2016 CBC 1586555 Lymph Auto 26.3 % 2016 CBC 6745848 [place] Auto 7.7 % 2016 CBC 2168508 RDW 13.6 % 2016 CBC 0961839 Eos Auto 4.2 % 2016 CBC 5816063 Baso Auto 0.5 % 2016 CBC 4582641 Neutrophil Abs 4.97 10e9/L 2016 CBC 3060620 Lymphocyte Abs 2.13 10e9/L 2016 CBC 1418379 Monocyte Abs 0.62 10e9/L 2016 CBC 1649613 Eosinophil Abs 0.34 10e9/L 2016 CBC 7408534 Basophil Abs 0.04 10e9/L 2016 CBC 3247497 RDW-SD 44.1 fL 2016 CHEM 14 8131681 AST 19 U/L 2016 CHEM 14 6265359 ALT 26 U/L 2016 CHEM 14 5944818 BUN 20 mg/dL 2016 CHEM 14 5128492 ALBUMIN 4.1 g/dL 2016 CHEM 14 8749410 CHLORIDE 99 mmol/L 2016 CHEM 14 8396645 Bili Total 0.3 mg/dL 2016 CHEM 14 8306763 ALK PHOS 55 U/L 2016 CHEM 14 5470189 SODIUM 135 mmol/L 2016 CHEM 14 0141460 CREATININE 0.87 mg/dL 2016 CHEM 14 8970716 CALCIUM 9.3 mg/dL 2016 CHEM 14 6263033 POTASSIUM 4.0 mmol/L 2016 CHEM 14 4723651 TOTAL PROTEIN 7.0 g/dL 2016 CHEM 14 8276766 GLUCOSE 149 mg/dL 2016 CHEM 14 6747391 Bicarbonate 26 mmol/L 2016 CHEM 14 9479639 AGAP 10 mmol/L 2016 Review of Systems [...] 4: J0696 05/28/2017 THER/PROPH/DIAG INJ SC/IM CPT-4: 71547 05/19/2017 KETOROLAC TROMETHAMINE INJ CPT-4: J1885 05/19/2017 TRIAMCINOLONE ACET INJ NOS CPT-4: J3301 03/26/2016 TRIAMCINOLONE ACET INJ NOS CPT-4: J3301 06/07/2015 THER/PROPH/DIAG INJ SC/IM CPT-4: 07165 12/07/2014 TRIAMCINOLONE ACET INJ NOS CPT-4: J3301 12/07/2014 Vital Signs Date Vital 02/17/2018 Blood Pressure 1: 132/76 Code: 8480-6 BMI: 33.5 Code: 12072-5 Heart Rate 1: 92 bpm Height: 5'7" SpO2: 98% Weight: 214 lbs 12/21/2017 Blood Pressure 1: 154/78 Code: 8480-6 BMI: 33.5 Code: 63196-4 Heart Rate 1: 93 bpm Height: 5'7" SpO2: 96% Weight: 214 lbs 11/30/2017 Blood Pressure 1: 148/88 Code: 8480-6 BMI: 33.5 Code: 31098-6 Heart Rate 1: 80 bpm Height: 5'7" SpO2: 97% Temperature: 36.9 (C) / 98.5 (F) Weight: 214 lbs 05/28/2017 Blood Pressure 1: 128/70 Code: 8480-6 BMI: 31.3 Code: 69138-5 Heart Rate 1: 103 bpm Height: 5'7" SpO2: 98% Temperature: 36.7 (C) / 98.1 (F) Weight: 200 lbs 05/19/2017 Blood Pressure 1: 150/72 Code: 8480-6 04/16/2017 Blood Pressure 1: 146/88 Code: 8480-6 BMI: 31.3 Code: 69793-6 Heart Rate 1: 96 bpm Height: 5'7" SpO2: 94% Temperature: 37.2 (C) / 99.0 (F) Weight: 200 lbs 02/10/2017 Blood Pressure 1: 132/72 Code: 8480-6 BMI: 31.3 Code: 74678-9 Heart Rate 1: 99 bpm Height: 5'7" SpO2: 97% Weight: 200 lbs 02/02/2017 Blood Pressure 1: 140/68 Code: 8480-6 BMI: 31.4 Code: 80874-5 Heart Rate 1: 82 bpm Height: 5'7" SpO2: 97% Weight: 200 lbs 8 oz 01/27/2017 Blood Pressure 1: 142/80 Code: 8480-6 BMI: 32.2 Code: 37542-0 Height: 5'7" Temperature: 37.2 (C) / 98.9 (F) Weight: 205 lbs 8 oz 11/07/2016 Blood Pressure 1: 148/82 Code: 8480-6 BMI: 32.7 Code: 05018-2 Heart Rate 1: 106 bpm Height: 5'7" SpO2: 97% Weight: 209 lbs 03/26/2016 Blood Pressure 1: 140/86 Code: 8480-6 Heart Rate 1: 90 bpm Height: SpO2: 97% Weight: 12/13/2015 Blood Pressure 1: 132/72 Code: 8480-6 BMI: 31.2 Code: 45326-3 Heart Rate 1: 84 bpm Height: 5'7" SpO2: 98% Weight: 199 lbs 08/15/2015 Blood Pressure 1: 138/88 Code: 8480-6 BMI: 32.1 Code: 80456-2 Heart Rate 1: 94 bpm Height: 5'7" SpO2: 97% Weight: 205 lbs 06/13/2015 Blood Pressure 1: 146/78 Code: 8480-6 Blood Pressure 1: 188/88 Code: 8480-6 BMI: 32.6 Code: 20821-2 Heart Rate 1: 97 bpm Height: 5'7" SpO2: 98% Weight: 208 lbs 06/07/2015 Blood Pressure 1: 128/82 Code: 8480-6 BMI: 32.4 Code: 25212-0 Heart Rate 1: 80 bpm Height: 5'7" SpO2: 99% Weight: 207 lbs 03/13/2015 Blood Pressure 1: 124/70 Code: 8480-6 BMI: 31.6 Code: 56179-5 Heart Rate 1: 103 bpm Height: 5'7" Respiratory Rate: 18 bpm SpO2: 97% Temperature: 36.6 (C) / 97.8 (F) Weight: 202 lbs 12/07/2014 Blood Pressure 1: 140/80 Code: 8480-6 BMI: 32.3 Code: 61269-7 Heart Rate 1: 97 bpm Height: 5'7" SpO2: 99% Weight: 206 lbs 09/07/2014 Blood Pressure 1: 132/78 Code: 8480-6 BMI: 31.2 Code: 92708-1 Heart Rate 1: 92 bpm Height: 5'7" [...] with shunt placement- 6-12-15- Dr Ruvalcaba in [place] did surgery headache Onset and Resolution ongoing [...] skin[ICD10: R20.2] [facility] CPT-4: 10399 02/17/2018 [id number] EST. PATIENT, LEVEL IV Diagnosis: Pain in right shoulder[ICD10: M25.511] Diagnosis: Rash and other nonspecific skin eruption[ICD10: R21] [facility] CPT-4: 69196 12/21/2017 [id number] EST. PATIENT, LEVEL IV Diagnosis: Other acute sinusitis[ICD10: J01.80] Diagnosis: Other allergic rhinitis[ICD10: J30.89] Diagnosis: Localized edema[ICD10: R60.0] [facility] CPT-4: 47178 11/30/2017 ([id number]) 42521 EST. PATIENT, LEVEL III Diagnosis: Acute recurrent maxillary sinusitis[ICD10: J01.01] Diagnosis: Cough[ICD10: R05] Tavia Dunham MD [facility] CPT-4: 90465 05/28/2017 ([id number]) 18094 EST. PATIENT, LEVEL III Diagnosis: Acute laryngopharyngitis[ICD10: J06.0] Diagnosis: Cough[ICD10: R05] Tavia Dunham MD, [facility] CPT-4: 19008 04/16/2017 [id number] EST. PATIENT, LEVEL III Diagnosis: Left lower quadrant pain[ICD10: R10.32] Aditi Dunham MD [facility] CPT-4: 75451 02/10/2017 ([id number]) 49538 EST. PATIENT, LEVEL III Diagnosis: Pain in thoracic spine[ICD10: M54.6] Diagnosis: Other muscle spasm[ICD10: M62.838] Tavia Dunham MD [facility] CPT- 4: 00066 02/02/2017 ([id number]) 51284 EST. PATIENT, LEVEL IV Diagnosis: Other acute pancreatitis without necrosis or infection[ICD10: K85.80] Diagnosis: Epigastric pain[ICD10: R10.13] Diagnosis: Type 2 diabetes mellitus without complications[ICD10: E11.9] Tavia Dunham MD [facility] CPT-4: 28430 01/27/2017 [id number] EST. PATIENT, LEVEL IV Diagnosis: Essential (primary) hypertension[ICD10: I10] Diagnosis: Type 1 diabetes mellitus without complications[ICD10: E10.9] Diagnosis: Other specified hypothyroidism[ICD10: E03.8] Diagnosis: Bilateral primary osteoarthritis of hip[ICD10: M16.0] Diagnosis: Actinic keratosis[ICD10: L57.0] Aditi Dunham MD, [facility] CPT-4: 26249 11/07/2016 02203 EST. PATIENT, LEVEL III Diagnosis: Other acute sinusitis[ICD10: J01.80] Diagnosis: Other allergic rhinitis[ICD10: J30.89] Diagnosis: Cough[ICD10: R05] Aditi Dunham MD, [facility] CPT-4: 06554 03/26/2016 ([id number]) 27647 EST. PATIENT, LEVEL IV Diagnosis: Essential (primary) hypertension[ICD10: I10] Diagnosis: Pure hyperglyceridemia[ICD10: E78.1] Tavia Dunham MD, [facility] CPT- 4: 23275 12/13/2015 ([id number]) 79914 EST. PATIENT, LEVEL III Diagnosis: Essential (primary) hypertension[ICD10: I10] Diagnosis: (Idiopathic) normal pressure hydrocephalus[ICD10: G91.2] Tavia Dunham MD, [facility] CPT-4: 55247 08/15/2015 [id number] EST. PATIENT, LEVEL III Diagnosis: Other acute nonsuppurative otitis media, right ear[ICD10: H65.191] Diagnosis: Acute upper respiratory infection, unspecified[ICD10: J06.9] Aditi Dunham MD, [facility] CPT-4: 28589 06/13/2015 ([id number]) 74975 EST. PATIENT, LEVEL III Diagnosis: Acute recurrent maxillary sinusitis[ICD10: J01.01] Diagnosis: Allergic rhinitis due to pollen[ICD10: J30.1] Kaylan Dunham MD, [facility] CPT-4: 28161 06/07/2015 ([id number]) 78941 EST. PATIENT, LEVEL IV Diagnosis: (Idiopathic) normal pressure hydrocephalus[ICD10: G91.2] Diagnosis: Essential (primary) hypertension[ICD10: I10] Diagnosis: Dizziness and giddiness[ICD10: R42] Diagnosis: Nausea with vomiting, unspecified[ICD10: R11.2] Kaylan Dunham MD, [facility] CPT-4: 82048 03/13/2015 [id number] EST. PATIENT, LEVEL III Diagnosis: Acute sinusitis, unspecified[ICD10: J01.90] Diagnosis: Allergic rhinitis, unspecified[ICD10: J30.9] Tavia Dunham MD, [facility] CPT-4: 62497 12/07/2014 ([id number]) [id number] EST. PATIENT, LEVEL IV Diagnosis: ESSENTIAL HYPERTENSION[ICD9: 401.9] Diagnosis: DIABETES TYPE II[ICD9: 250.00] Diagnosis: NPH (normal pressure hydrocephalus)[ICD9: 331.5] Diagnosis: Hypertriglyceridemia[ICD9: 272.1] Kaylan Al Dunham MD, [facility] CPT- 4: 19244 09/07/2014 ([id number]) OFFICE/OUTPATIENT VISIT NEW Diagnosis: DIABETES TYPE II[ICD9: 250.00] Diagnosis: ESSENTIAL HYPERTENSION[ICD9: 401.9] Diagnosis: NPH (normal pressure hydrocephalus)[ICD9: 331.5] Diagnosis: Abnormal gait[ICD9: 781.2] Diagnosis: VITAMIN D DEFICIENCY[ICD9: 268.9] Tavia Dunham MD, [facility] CPT- 4: 22689 08/07/2014 Plan of Care Planned Activity Notes Codes Status Date Visit Plan: Parasthesia - ongoing for about a month - will send RX and refer pt for EMG - The pt is to use prn antiinflammatories to manage acute pain. The patient is to call the office if the pain is worsening or does not improve. 02/17/2018 Patient Education: Patient Medication Summary Completed [...] discharge. 12/21/2017 Appointment: Aditi Hamilton WPtel: [facility]5 [id number] (15 min) Moderate 12/21/2017 Patient Education: Patient Medication Summary Completed 12/21/2017 Appointment: Tavia Dunham [facility]Ptel[facility] ([facility] min) Moderate 12/02/2017 Visit Plan: Sinusitis [...] edema. 11/30/2017 Appointment: Aditi Hamilton WPtel: [phone] [facility] (15 min) Moderate 11/30/2017 Patient Education: Patient Medication Summary Completed 11/30/2017 Care Plan: Comp Metabolic Pending 11/30/2017 Care Plan: Cbc With Differential Pending 11/30/2017 Care Plan: %Hba1C LOINC : 84003-5 Pending 11/30/2017 Care Plan: Lipid Pending 11/30/2017 Care Plan: Tsh Pending 11/30/2017 Care Plan: Free T4 Pending 11/30/2017 Appointment: Tavia Dunham WPtel: [phone] [facility] [place] (15 min) Moderate 11/26/2017 Appointment: Kaylan Melendez WPtel: [phone] [phone] [place] (30 min) Complex 08/13/2017 Appointment: Tavia Dunham WPtel: [phone] [facility] [place] (15 min) Moderate 08/04/2017 Appointment: Tavia Dunham WPtel: [phone] [facility] [place] (15 min) Moderate 07/20/2017 Visit [...] today 05/28/2017 Appointment: Tavia Dunham WPtel: [phone] [facility] (30 min) Complex 05/28/2017 Patient Education: Patient [...] pharmacy. 04/16/2017 Appointment: Tavia Dunham WPtel: [facility]9 [facility] (15 min) Moderate 04/16/2017 Patient Education: [...] or concerns. 02/10/2017 Appointment: Aditi Hamilton WPtel[facility] ([place] min) Moderate 02/10/2017 Patient Education: Patient Medication Summary Completed 02/10/2017 Patient Education: Obesity Completed 02/10/2017 Visit Plan: Pain in Thoracic spine with muscle spasm - ibuprofen 600mg three times daily x 3 days, rx for cyclobenzaprine. 02/02/2017 Appointment: Tavia Dunham WPtel: [facility] [place] (15 min) Moderate 02/02/2017 Patient [...] today. 01/27/2017 Appointment: [facility]ham [phone] ([facility] min) Moderate 01/27/2017 Patient Education: Patient [...] symptoms. 11/07/2016 Appointment: Ad[facility] Hamilton [facility]el[phone] (30 min) Complex 11/07/2016 Patient Education: Patient [...] allergy spray. 03/26/2016 Appointment: Aditi Hamilton WPtel: [address] [place], [place] [phone] (30 min) [facility] 03/26/2016 Patient Education: Patient Medication Summary Completed [...] medications. 12/13/2015 Appointment: [facility]ham [phone] [place] (15 min) Moderate 12/13/2015 Patient Education: [...] supplement. 08/07/2014 Appointment: [facility]ham [phone] [place] (S) New Patient 08/07/2014 Patient Education: [...]
--- OUTSIDE RECORDS SUMMARY | 2018-10-08 11:50 | XMS REPORT | CCD ---
Author Author [facility] Organization [facility] Address [address] [place] [address] Phone Care Team Providers Care Masticator Name Role Phone PP Unavailable CCM Unavailable Summary Purpose Interface Exchange Insurance Providers Payer name Policy type / Coverage type Covered constitution party ID Effective Begin Date Effective End Date Blue Cross Blue [facility] Blue Cross/Blue [facility] [id number] Unknown Family history Mother Diagnosis Age At Onset Cancer Unknown Arthritis Unknown Depression Unknown Hyperlipidemia Unknown Diabetes mellitus Type 2 Unknown Social History Social History Element Codes Description Effective Dates Marital status Unknown [place] 08/07/2014 Number of children Unknown 0 08/07/2014 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 [employer] 08/07/[address]: 912093973 Never smoker 08/07/[address]: 981538166 Never drinks alcohol 08/07/2014 Allergies, Adverse Reactions, Alerts Substance Reaction Codes Entered Date Inactivated Date Status CODEINE emesis RxNorm: 2670 08/07/2014 No Inactive Date Active Past Medical History Illness Codes Condition Status Onset Date Resolved Date Pain in right shoulder ICD-9: 719.41 ICD-10: [...] Problems Condition Codes Effective Dates Condition Status Pain in right shoulder ICD-9: 719.41 ICD-10: [...] Fill Instructions levothyroxine 125 mcg tablet RxNorm: 439440 TAKE 1 TABLET BY MOUTH ONCE DAILY 01/11/2018 No Stop Date Active cyclobenzaprine 5 mg tablet RxNorm: 847354 1 Tablet(s) PO TID as needed 12/28/2017 01/11/2018 Inactive Zorvolex 35 mg capsule RxNorm: 3560838 1 Capsule(s) PO TID as needed 12/25/2017 05/23/2018 Active Levemir FlexTouch U-100 Insulin 100 unit/mL (3 mL) subcutaneous pen RxNorm: 331893 INJECT 2O UNITS SUBCUTANEOUSLY TWICE DAILY 12/21/2017 No Stop Date Active cyclobenzaprine 5 mg tablet RxNorm: 112521 1 Tablet(s) PO TID as needed 12/21/2017 12/25/2017 Inactive doxycycline hyclate 100 mg capsule RxNorm: 0703654 1 Capsule(s) PO BID 12/21/2017 12/30/2017 Inactive venlafaxine ER 150 mg capsule,extended release 24 hr RxNorm: 183445 TAKE 1 CAPSULE BY MOUTH ONCE DAILY 12/10/2017 No Stop Date Active Zithromax Z-Kulwant 250 mg tablet RxNorm: 796402 1 Tablet(s) PO UD 12/03/2017 No Stop Date Active z pack as directed Singulair 10 mg tablet RxNorm: 976717 1 Tablet(s) PO daily 12/03/2017 12/02/2017 Inactive Singulair 10 mg tablet RxNorm: 343382 1 Tablet(s) PO daily 12/03/2017 01/01/2018 Inactive Kenalog 40 mg/mL suspension for injection RxNorm: 2742355 1 Milliliter(s) Inj 11/30/2017 11/30/2017 Inactive prednisone 20 mg tablet RxNorm: 276292 2 Tablet(s) PO daily 11/30/2017 12/04/2017 Inactive Augmentin 875 mg-125 mg tablet RxNorm: 284149 1 Tablet(s) PO BID 11/27/2017 11/26/2017 Inactive Augmentin 875 mg-125 mg tablet RxNorm: 084953 1 Tablet(s) PO BID 11/27/2017 12/03/2017 Inactive Zorvolex 35 mg capsule RxNorm: 2647695 1 Capsule(s) PO TID as needed 11/09/2017 12/24/2017 Inactive hydrochlorothiazide 25 mg tablet RxNorm: 930045 1 Tablet(s) PO daily 10/22/2017 02/18/2018 Active enalapril maleate 5 mg tablet RxNorm: 534215 1 Tablet(s) PO daily TAKE ONE TABLET BY MOUTH ONCE DAILY 08/21/2017 02/16/2018 Active Levemir FlexTouch U-100 Insulin 100 unit/mL (3 mL) subcutaneous pen RxNorm: 921629 20 Unit(s) SQ BID 07/30/2017 12/20/2017 Inactive levothyroxine 125 mcg tablet RxNorm: 848915 TAKE ONE TABLET BY MOUTH ONCE DAILY 06/29/2017 01/10/2018 Inactive venlafaxine ER 150 mg capsule,extended release 24 hr RxNorm: 369748 1 Capsule(s) PO daily TAKE ONE CAPSULE BY MOUTH ONCE DAILY 06/08/2017 12/04/2017 Inactive prednisone 20 mg tablet RxNorm: 773427 1 Tablet(s) PO daily 06/02/2017 06/06/2017 Inactive prednisone 20 mg tablet RxNorm: 738125 1 Tablet(s) PO daily 06/01/2017 06/05/2017 Inactive Kenalog 40 mg/mL suspension for injection RxNorm: 6155898 1 Milliliter(s) Inj 05/28/2017 05/28/2017 Inactive cefdinir 300 mg capsule RxNorm: 897572 1 Capsule(s) PO BID 05/28/2017 06/03/2017 Inactive ceftriaxone 500 mg solution for injection RxNorm: 4095687 1 Inj 05/28/2017 05/28/2017 Inactive prednisone 20 mg tablet RxNorm: 580505 1 Tablet(s) PO daily 05/28/2017 05/31/2017 Inactive Keflex 500 mg capsule RxNorm: 597470 1 Capsule(s) PO TID 05/26/2017 06/01/2017 Inactive Keflex 500 mg capsule RxNorm: 671551 1 Capsule(s) PO TID 05/26/2017 05/25/2017 Inactive hydrocodone 10 mg-chlorpheniramine 8 mg/5 mL oral susp extend.rel 12hr RxNorm: 5506047 5-10 Milliliter(s) PO TID as needed 04/16/2017 No Stop Date Active Tussionex Pennkinetic ER 10 mg-8 mg/5 mL suspension,extended release RxNorm: 1047678 5 Milliliter(s) PO BID 04/16/2017 04/27/2017 Inactive Zithromax Z-Kulwant 250 mg tablet RxNorm: 785578 1 Tablet(s) PO UD 03/25/2017 04/15/2017 Inactive z pack as directed enalapril maleate 5 mg tablet RxNorm: 037469 TAKE ONE TABLET BY MOUTH ONCE DAILY 02/26/2017 08/20/2017 Inactive Levemir FlexTouch 100 unit/mL (3 mL) subcutaneous insulin pen RxNorm: 439683 20 Unit(s) SQ BID 02/10/2017 07/11/2017 Inactive Zorvolex 35 mg capsule RxNorm: 6785306 1 Capsule(s) PO TID as needed 02/10/2017 11/08/2017 Inactive valacyclovir 1 gram tablet RxNorm: 915376 1 Tablet(s) PO TID 02/10/2017 02/16/2017 Inactive Levemir FlexTouch 100 unit/mL (3 mL) subcutaneous insulin pen RxNorm: 361819 20 Unit(s) SQ BID 02/04/2017 02/09/2017 Inactive cyclobenzaprine 5 mg tablet RxNorm: 427086 1 Tablet(s) PO qhs x 3 nights and TID as needed muscle spasms 02/02/2017 No Stop Date Active levothyroxine 125 mcg tablet RxNorm: 961323 TAKE ONE TABLET BY MOUTH ONCE DAILY 12/08/2016 06/05/2017 Inactive venlafaxine ER 150 mg capsule,extended release 24 hr RxNorm: 804481 TAKE ONE CAPSULE BY MOUTH ONCE DAILY 12/01/2016 05/29/2017 Inactive Zorvolex 35 mg capsule RxNorm: 6138159 1 Capsule(s) PO TID as needed do not take meloxicam at the same time 11/07/2016 No Stop Date Active enalapril maleate 5 mg tablet RxNorm: 927596 TAKE ONE TABLET BY MOUTH ONCE DAILY 10/31/2016 12/29/2016 Inactive meloxicam 15 mg tablet RxNorm: 095209 TAKE ONE TABLET BY MOUTH ONCE DAILY 10/30/2016 04/27/2017 Inactive meloxicam 15 mg tablet RxNorm: 872807 TAKE ONE TABLET BY MOUTH ONCE DAILY 10/24/2016 10/29/2016 Inactive enalapril maleate 5 mg tablet RxNorm: 460534 TAKE ONE TABLET BY MOUTH ONCE DAILY 10/24/2016 10/30/2016 Inactive venlafaxine ER 150 mg capsule,extended release 24 hr RxNorm: 712846 TAKE ONE CAPSULE BY MOUTH ONCE DAILY 06/16/2016 11/12/2016 Inactive meloxicam 15 mg tablet RxNorm: 271635 TAKE ONE TABLET BY MOUTH ONCE DAILY 06/09/2016 10/06/2016 Inactive enalapril maleate 5 mg tablet RxNorm: 198277 TAKE ONE TABLET BY MOUTH ONCE DAILY 06/02/2016 09/29/2016 Inactive Zithromax Z-Kulwant 250 mg tablet RxNorm: 775798 1 Tablet(s) PO UD 05/21/2016 06/15/2016 Inactive levothyroxine 125 mcg tablet RxNorm: 211942 Tablet(s) TAKE ONE TABLET BY MOUTH ONCE DAILY 04/15/2016 10/11/2016 Inactive Levaquin 500 mg tablet RxNorm: 106649 1 Tablet(s) PO daily 04/03/2016 04/09/2016 Inactive Levaquin 500 mg tablet RxNorm: 557883 1 Tablet(s) PO daily 04/03/2016 04/02/2016 Inactive prednisone 20 mg tablet RxNorm: 359587 2 Tablet(s) PO daily 03/28/2016 04/01/2016 Inactive Zithromax Z-Kulwant 250 mg tablet RxNorm: 643201 1 Tablet(s) PO UD 03/26/2016 03/30/2016 Inactive zpack Kenalog 40 mg/mL suspension for injection RxNorm: 6375788 Milliliter(s) Inj 03/26/2016 03/26/2016 Inactive Zofran ODT 4 mg disintegrating tablet RxNorm: 565449 DISSOLVE ONE TABLET IN MOUTH EVERY 6 HOURS NEEDED 02/22/2016 02/29/2016 Inactive venlafaxine ER 150 mg capsule,extended release 24 hr RxNorm: 920653 TAKE ONE CAPSULE BY MOUTH ONCE DAILY 02/18/2016 06/15/2016 Inactive meloxicam 15 mg tablet RxNorm: 261090 TAKE ONE TABLET BY MOUTH ONCE DAILY 02/04/2016 06/02/2016 Inactive aspirin 81 mg chewable tablet RxNorm: 728181 1 Tablet(s) PO daily 12/13/2015 12/06/2016 Inactive biotin 2,500 mcg tablet RxNorm: 959524 1 Tablet(s) PO daily 12/13/2015 09/07/2016 Inactive hydrochlorothiazide 25 mg tablet RxNorm: 301507 1 Tablet(s) PO daily 12/13/2015 04/10/2016 Inactive enalapril maleate 5 mg tablet RxNorm: 310048 TAKE ONE TABLET BY MOUTH ONCE DAILY 11/22/2015 05/19/2016 Inactive venlafaxine ER 150 mg capsule,extended release 24 hr RxNorm: 767569 TAKE ONE CAPSULE BY MOUTH ONCE DAILY 11/14/2015 02/11/2016 Inactive levothyroxine 125 mcg tablet RxNorm: 745455 Tablet(s) TAKE ONE TABLET BY MOUTH ONCE DAILY 11/06/2015 04/14/2016 Inactive levothyroxine 125 mcg tablet RxNorm: 325900 Tablet(s) TAKE ONE TABLET BY MOUTH ONCE DAILY 08/06/2015 11/03/2015 Inactive meclizine 25 mg tablet RxNorm: 538439 1/2-1 Tablet(s) PO Q6 as needed 07/16/2015 No Stop Date Active Flonase Allergy Relief 50 mcg/actuation nasal spray,suspension RxNorm: 1 [place] NASAL daily 06/13/2015 No Stop Date Active prednisone 20 mg tablet RxNorm: 881797 2 Tablet(s) PO daily 06/13/2015 06/17/2015 Inactive Augmentin 875 mg-125 mg tablet RxNorm: 604084 1 Tablet(s) PO BID 06/13/2015 06/19/2015 Inactive Zithromax Z-Kulwant 250 mg tablet RxNorm: 592947 1 Tablet(s) PO UD 06/07/2015 06/11/2015 Inactive zpack Kenalog 40 mg/mL suspension for injection RxNorm: 3165650 Milliliter(s) Inj 06/07/2015 06/07/2015 Inactive venlafaxine ER 150 mg capsule,extended release 24 hr RxNorm: 396908 TAKE ONE CAPSULE BY MOUTH ONCE DAILY 05/14/2015 11/09/2015 Inactive Augmentin 500 mg-125 mg tablet RxNorm: 360452 1 Tablet(s) PO TID 04/25/2015 05/04/2015 Inactive Augmentin 500 mg-125 mg tablet RxNorm: 269280 1 Tablet(s) PO TID 04/25/2015 04/24/2015 Inactive pravastatin 10 mg tablet RxNorm: 460794 1 Tablet(s) PO daily take with coenzyme q 10 daily 03/21/2015 07/18/2015 Inactive DC crestor pravastatin 10 mg tablet RxNorm: 353484 1 Tablet(s) PO daily take with coenzyme q 10 daily 03/21/2015 03/20/2015 Inactive DC crestor Zofran ODT 4 mg disintegrating tablet RxNorm: 707305 1 Tablet(s) PO Q6 PRN 03/13/2015 02/21/2016 Inactive levothyroxine 125 mcg tablet RxNorm: 364209 TAKE ONE TABLET BY MOUTH ONCE DAILY 02/13/2015 08/05/2015 Inactive meloxicam 15 mg tablet RxNorm: 332555 1 Tablet(s) PO daily 01/28/2015 01/22/2016 Inactive Zofran 4 mg tablet RxNorm: 262942 1 Tablet(s) PO Q6-8H as needed nausea 01/24/2015 No Stop Date Active Trulicity 1.5 mg/0.5 mL subcutaneous pen injector RxNorm: 6614678 0.75mg Milliliter(s) SQ QW 01/10/2015 No Stop Date Active venlafaxine ER 150 mg capsule,extended release 24 hr RxNorm: 733165 1 Capsule(s) PO daily 01/10/2015 05/09/2015 Inactive enalapril maleate 5 mg tablet RxNorm: 885084 1 Tablet(s) PO daily 01/04/2015 07/02/2015 Inactive amoxicillin 500 mg tablet RxNorm: 143446 1 Tablet(s) PO BID 12/07/2014 12/06/2014 Inactive Probiotic & Acidophilus 300 million cell-250 mg capsule RxNorm: 1 Capsule(s) PO BID 12/07/2014 12/16/2014 Inactive amoxicillin 500 mg tablet RxNorm: 790233 1 Tablet(s) PO BID 12/07/2014 12/16/2014 Inactive Kenalog 40 mg/mL suspension for injection RxNorm: 7573235 1 Milliliter(s) Inj 12/07/2014 12/07/2014 Inactive meloxicam 15 mg tablet RxNorm: 160393 1 Tablet(s) PO daily 10/24/2014 10/23/2014 Inactive meloxicam 15 mg tablet RxNorm: 123563 1 Tablet(s) PO daily 10/24/2014 01/27/2015 Inactive azithromycin 500 mg tablet RxNorm: 066574 1 Tablet(s) PO daily 10/11/2014 10/15/2014 Inactive azithromycin 500 mg tablet RxNorm: 205953 1 Tablet(s) PO daily 10/11/2014 10/10/2014 Inactive levothyroxine 125 mcg tablet RxNorm: 239450 1 Tablet(s) PO daily 10/06/2014 02/02/2015 Inactive enalapril maleate 5 mg tablet RxNorm: 082392 1 Tablet(s) PO daily 08/29/2014 12/26/2014 Inactive enalapril maleate 5 mg tablet RxNorm: 993470 1 Tablet(s) PO daily 08/25/2014 08/28/2014 Inactive Medroxy oral RxNorm: 9962499 oral No Start Date Active Vitamin D3 5,000 unit tablet RxNorm: 234124 1 Tablet(s) PO daily No Start Date Active fluconazole 200 mg tablet RxNorm: 995272 Tablet(s) PO No Start Date Active estradiol 2 mg tablet RxNorm: 116890 1 Tablet(s) PO daily No Start Date Active fenofibrate nanocrystallized 145 mg tablet RxNorm: 793581 1 Tablet(s) PO daily No Start Date Active hydrocodone 5 mg-acetaminophen 325 mg tablet RxNorm: 571378 1-2 Tablet(s) PO Q4-6H as needed No Start Date Active enalapril maleate 5 mg tablet RxNorm: 331547 1 Tablet(s) PO daily No Start Date 08/24/2014 Inactive glimepiride 4 mg tablet RxNorm: 034920 1 Tablet(s) PO daily No Start Date 01/26/2017 Inactive meclizine 25 mg tablet RxNorm: 641806 1/2-1 Tablet(s) PO Q6 as needed No Start Date 07/15/2015 Inactive Trulicity 0.75 mg/0.5 mL subcutaneous pen injector RxNorm: 2882305 0.75mg Milliliter(s) SQ QW No Start Date 01/09/2015 Inactive metformin 1,000 mg tablet RxNorm: 447319 Tablet(s) PO BID No Start Date 01/26/2017 Inactive venlafaxine ER 150 mg capsule,extended release 24 hr RxNorm: 321211 1 Capsule(s) PO daily No Start Date 01/09/2015 Inactive meloxicam 15 mg tablet RxNorm: 103657 1 Tablet(s) PO daily No Start Date 10/23/2014 Inactive levothyroxine 125 mcg tablet RxNorm: 073242 1 Tablet(s) PO daily No Start Date 10/05/2014 Inactive Levemir FlexTouch 100 unit/mL (3 mL) subcutaneous insulin pen RxNorm: 374760 15 Unit(s) SQ daily No Start Date 02/03/2017 Inactive Zithromax Z-Kulwant 250 mg tablet RxNorm: 289714 1 Tablet(s) PO UD No Start Date 05/20/2016 Inactive Fish Oil 1,000 mg capsule RxNorm: 1 Capsule(s) PO BID No Start Date 11/04/2016 Inactive Zofran 4 mg tablet RxNorm: 554970 1 Tablet(s) PO Q6-8H as needed nausea No Start Date 01/23/2015 Inactive Crestor 10 mg tablet RxNorm: 258871 1 Tablet(s) PO daily No Start Date 03/20/2015 Inactive Medication Administered Medication Codes Instructions Start Date Status Kenalog 40 mg/mL suspension for injection RxNorm: 6360747 1Milliliter 11/30/2017 No longer Active Kenalog 40 mg/mL suspension for injection RxNorm: 6760312 1Milliliter 05/28/2017 No longer Active ceftriaxone 500 mg solution for injection RxNorm: 5361784 1 05/28/2017 No longer Active Kenalog 40 mg/mL suspension for injection RxNorm: 1325570 Milliliter 03/26/2016 No longer Active Kenalog 40 mg/mL suspension for injection RxNorm: 8123916 Milliliter 06/07/2015 No longer Active Kenalog 40 mg/mL suspension for injection RxNorm: 6632014 1Milliliter 12/07/2014 No longer Active Immunizations Vaccine Codes Date Status Influenza CVX: 141 11/26/2017 completed Assessments Condition Codes Effective Dates Rash and other nonspecific skin eruption ICD-10: [...] Visit Reason For Visit Effective Dates Notes shoulder pain 12/21/2017 sinus congestion 11/30/2017 sinus congestion 05/28/2017 headache 05/19/2017 cough 04/16/2017 flank pain 02/10/2017 back pain 02/02/2017 Hospital Follow Up 01/27/2017 hypertension 11/07/2016 cough 03/26/2016 hypertension 12/13/2015 Hospital Follow Up 08/15/2015 cough 06/13/2015 earache 06/07/2015 hypertension 03/13/2015 with nausea and vomiting headache 12/07/2014 headache 09/07/2014 headache 08/07/2014 Results Observation Observation Code Item Item Code Result Date CHEM 14 [id number] AST TNP:Lab Request 01/27/2017 CHEM 14 [id number] ALT TNP:Lab Request 01/27/2017 CHEM 14 [id number] BUN TNP:Lab Request 01/27/2017 CHEM 14 [id number] ALBUMIN TNP:Lab Request 01/27/2017 CHEM 14 [id number] CHLORIDE TNP:Lab Request 01/27/2017 CHEM 14 [id number] Bili Total TNP:Lab Request 01/27/2017 CHEM 14 [id number] ALK PHOS TNP:Lab Request 01/27/2017 CHEM 14 [id number] SODIUM TNP:Lab Request 01/27/2017 CHEM 14 [id number] CREATININE TNP:Lab Request 01/27/2017 CHEM 14 [id number] CALCIUM TNP:Lab Request 01/27/2017 CHEM 14 [id number] POTASSIUM TNP:Lab Request 01/27/2017 CHEM 14 [id number] TOTAL PROTEIN TNP:Lab Request 01/27/2017 CHEM 14 [id number] GLUCOSE TNP:Lab Request 01/27/2017 CHEM 14 [id number] Bicarbonate TNP:Lab Request 01/27/2017 CHEM 14 [id number] AGAP TNP:Lab Request 01/27/2017 AMYLASE [id number] Amylase Lvl TNP:Lab Request 01/27/2017 LIPID GRP CHOLESTEROL 273 mg/dL 2016 LIPID GRP Triglyceride 583 mg/dL 2016 LIPID GRP HDL CHOLESTEROL 48 mg/dL 2016 LIPID GRP Chol/HDL Ratio 5.69 ratio 2016 LIPID GRP NON-HDL Chol 225 mg/dL 2016 LIPID GRP LDL Cholesterol N/A Trig >400 2016 A1C HPLC 2642920 Hgb A1c 10091-6 7.3 % 2016 TSH 2812041 TSH 1.340 uIU/mL 2016 FREE T4 1850920 T4 Free 1.60 ng/dL 2016 MEAN GLUC 5205188 Calc Mean Gluc 163 mg/dL 2016 GFR CALC 6049808 GFR Non Afr Amr >60 mL/min 2016 GFR CALC 7996866 GFR Afr Amr >60 mL/min 2016 CBC 4052057 WBC 8.1 10e9/L 2016 CBC 4603442 RBC 4.41 10e12/L 2016 CBC 4048983 HEMOGLOBIN 13.2 g/dL 2016 CBC 2383436 HEMATOCRIT 39.6 % 2016 CBC 0095008 MCV 89.8 fL 2016 CBC 8667267 MCH 29.9 pg 2016 CBC 2327738 MCHC 33.3 g/dL 2016 CBC 0009044 PLATELET COUNT 298 10e9/L 2016 CBC 6575246 Mean Plt Volume 10.5 fL 2016 CBC 9762855 Neut Auto 61.3 % 2016 CBC 7978866 Lymph Auto 26.3 % 2016 CBC 3072196 [place] Auto 7.7 % 2016 CBC 8431006 Eos Auto 4.2 % 2016 CBC 8783851 RDW 13.6 % 2016 CBC 0496032 Baso Auto 0.5 % 2016 CBC 0242041 Neutrophil Abs 4.97 10e9/L 2016 CBC 6922179 Lymphocyte Abs 2.13 10e9/L 2016 CBC 0807475 Monocyte Abs 0.62 10e9/L 2016 CBC 1318436 Eosinophil Abs 0.34 10e9/L 2016 CBC 2105271 Basophil Abs 0.04 10e9/L 2016 CBC 2991437 RDW-SD 44.1 fL 2016 CHEM 14 [id number] AST 19 U/L 2016 CHEM 14 2392707 ALT 26 U/L 2016 CHEM 14 [id number] BUN 20 mg/dL 2016 CHEM 14 [id number] ALBUMIN 4.1 g/dL 2016 CHEM 14 6808924 CHLORIDE 99 mmol/L 2016 CHEM 14 2436786 Bili Total 0.3 mg/dL 2016 CHEM 14 3176365 ALK PHOS 55 U/L 2016 CHEM 14 0324114 SODIUM 135 mmol/L 2016 CHEM 14 8205558 CREATININE 0.87 mg/dL 2016 CHEM 14 3343612 CALCIUM 9.3 mg/dL 2016 CHEM 14 5236874 POTASSIUM 4.0 mmol/L 2016 CHEM 14 9626870 TOTAL PROTEIN 7.0 g/dL 2016 CHEM 14 7092624 GLUCOSE 149 mg/dL 2016 CHEM 14 9384119 Bicarbonate 26 mmol/L 2016 CHEM 14 7637363 AGAP 10 mmol/L 2016 Review of Systems System Result Effective Dates Constitutional No recent illness 12/21/2017 Constitutional No [...] 4: J0696 05/28/2017 THER/PROPH/DIAG INJ SC/IM CPT-4: 39294 05/19/2017 KETOROLAC TROMETHAMINE INJ CPT-4: J1885 05/19/2017 TRIAMCINOLONE ACET INJ NOS CPT-4: J3301 03/26/2016 TRIAMCINOLONE ACET INJ NOS CPT-4: J3301 06/07/2015 THER/PROPH/DIAG INJ SC/IM CPT-4: 26268 12/07/2014 TRIAMCINOLONE ACET INJ NOS CPT-4: J3301 12/07/2014 Vital Signs Date Vital 12/21/2017 Blood Pressure 1: 154/78 Code: 8480-6 BMI: 33.5 Code: 62180-0 Heart Rate 1: 93 bpm Height: 5'7" SpO2: 96% Weight: 214 lbs 11/30/2017 Blood Pressure 1: 148/88 Code: 8480-6 BMI: 33.5 Code: 94892-8 Heart Rate 1: 80 bpm Height: 5'7" SpO2: 97% Temperature: 36.9 (C) / 98.5 (F) Weight: 214 lbs 05/28/2017 Blood Pressure 1: 128/70 Code: 8480-6 BMI: 31.3 Code: 09697-8 Heart Rate 1: 103 bpm Height: 5'7" SpO2: 98% Temperature: 36.7 (C) / 98.1 (F) Weight: 200 lbs 05/19/2017 Blood Pressure 1: 150/72 Code: 8480-6 04/16/2017 Blood Pressure 1: 146/88 Code: 8480-6 BMI: 31.3 Code: 64150-9 Heart Rate 1: 96 bpm Height: 5'7" SpO2: 94% Temperature: 37.2 (C) / 99.0 (F) Weight: 200 lbs 02/10/2017 Blood Pressure 1: 132/72 Code: 8480-6 BMI: 31.3 Code: 80481-6 Heart Rate 1: 99 bpm Height: 5'7" SpO2: 97% Weight: 200 lbs 02/02/2017 Blood Pressure 1: 140/68 Code: 8480-6 BMI: 31.4 Code: 77697-2 Heart Rate 1: 82 bpm Height: 5'7" SpO2: 97% Weight: 200 lbs 8 oz 01/27/2017 Blood Pressure 1: 142/80 Code: 8480-6 BMI: 32.2 Code: 36914-4 Height: 5'7" Temperature: 37.2 (C) / 98.9 (F) Weight: 205 lbs 8 oz 11/07/2016 Blood Pressure 1: 148/82 Code: 8480-6 BMI: 32.7 Code: 38306-4 Heart Rate 1: 106 bpm Height: 5'7" SpO2: 97% Weight: 209 lbs 03/26/2016 Blood Pressure 1: 140/86 Code: 8480-6 Heart Rate 1: 90 bpm Height: SpO2: 97% Weight: 12/13/2015 Blood Pressure 1: 132/72 Code: 8480-6 BMI: 31.2 Code: 84857-0 Heart Rate 1: 84 bpm Height: 5'7" SpO2: 98% Weight: 199 lbs 08/15/2015 Blood Pressure 1: 138/88 Code: 8480-6 BMI: 32.1 Code: 44885-5 Heart Rate 1: 94 bpm Height: 5'7" SpO2: 97% Weight: 205 lbs 06/13/2015 Blood Pressure 1: 146/78 Code: 8480-6 Blood Pressure 1: 188/88 Code: 8480-6 BMI: 32.6 Code: 92719-0 Heart Rate 1: 97 bpm Height: 5'7" SpO2: 98% Weight: 208 lbs 06/07/2015 Blood Pressure 1: 128/82 Code: 8480-6 BMI: 32.4 Code: 65294-1 Heart Rate 1: 80 bpm Height: 5'7" SpO2: 99% Weight: 207 lbs 03/13/2015 Blood Pressure 1: 124/70 Code: 8480-6 BMI: 31.6 Code: 84771-8 Heart Rate 1: 103 bpm Height: 5'7" Respiratory Rate: 18 bpm SpO2: 97% Temperature: 36.6 (C) / 97.8 (F) Weight: 202 lbs 12/07/2014 Blood Pressure 1: 140/80 Code: 8480-6 BMI: 32.3 Code: 87791-9 Heart Rate 1: 97 bpm Height: 5'7" SpO2: 99% Weight: 206 lbs 09/07/2014 Blood Pressure 1: 132/78 Code: 8480-6 BMI: 31.2 Code: 01177-1 Heart Rate 1: 92 bpm Height: 5'7" Weight: 199 lbs 08/07/2014 Blood Pressure 1: 140/84 Code: 8480-6 Heart Rate 1: 96 bpm Height: 5'7" Weight: Functional Status No Functional Status data History of Present Illness Symptom Name Status Result Effective Date Notes shoulder pain Quality aching 12/21/2017 None shoulder [...] with shunt placement- 08-11-14- Dr Ruvalcaba in [place] did surgery headache Onset and Resolution ongoing [...] data Encounters Encounter Performer Location Codes Date 69622 EST. PATIENT, LEVEL IV Diagnosis: Pain in right shoulder[ICD10: M25.511] Diagnosis: Rash and other nonspecific skin eruption[ICD10: R21] [facility] CPT-4: 86539 12/21/2017 71170 EST. PATIENT, LEVEL IV Diagnosis: Other acute sinusitis[ICD10: J01.80] Diagnosis: Other allergic rhinitis[ICD10: J30.89] Diagnosis: Localized edema[ICD10: R60.0] Aditi Dunham MD, [facility] CPT-4: 73130 11/30/2017 ([id number]) 78048 EST. PATIENT, LEVEL III Diagnosis: Acute recurrent maxillary sinusitis[ICD10: J01.01] Diagnosis: Cough[ICD10: R05] Tavia Dunham MD, [facility] CPT-4: 15448 05/28/2017 ([id number]) 93954 EST. PATIENT, LEVEL III Diagnosis: Acute laryngopharyngitis[ICD10: J06.0] Diagnosis: Cough[ICD10: R05] Tavia Dunham MD, [facility] CPT-4: 20084 04/16/2017 [id number] EST. PATIENT, LEVEL III Diagnosis: Left lower quadrant pain[ICD10: R10.32] Aditi Dunham MD, [facility] CPT-4: 40851 02/10/2017 ([id number]) 76102 EST. PATIENT, LEVEL III Diagnosis: Pain in thoracic spine[ICD10: M54.6] Diagnosis: Other muscle spasm[ICD10: M62.838] Tavia Dunham MD, [facility] CPT- 4: 36316 02/02/2017 ([id number]) 51337 EST. PATIENT, LEVEL IV Diagnosis: Other acute pancreatitis without necrosis or infection[ICD10: K85.80] Diagnosis: Epigastric pain[ICD10: R10.13] Diagnosis: Type 2 diabetes mellitus without complications[ICD10: E11.9] Tavia Dunham MD, [facility] CPT-4: 61084 01/27/2017 [id number] EST. PATIENT, LEVEL IV Diagnosis: Essential (primary) hypertension[ICD10: I10] Diagnosis: Type 1 diabetes mellitus without complications[ICD10: E10.9] Diagnosis: Other specified hypothyroidism[ICD10: E03.8] Diagnosis: Bilateral primary osteoarthritis of hip[ICD10: M16.0] Diagnosis: Actinic keratosis[ICD10: L57.0] Aditi Dunham MD, [facility] CPT-4: 48650 11/07/2016 55020 EST. PATIENT, LEVEL III Diagnosis: Other acute sinusitis[ICD10: J01.80] Diagnosis: Other allergic rhinitis[ICD10: J30.89] Diagnosis: Cough[ICD10: R05] Aditi Dunham MD, [facility] CPT-4: 21257 03/26/2016 ([id number]) 85228 EST. PATIENT, LEVEL IV Diagnosis: Essential (primary) hypertension[ICD10: I10] Diagnosis: Pure hyperglyceridemia[ICD10: E78.1] Tavia Dunham MD, [facility] CPT- 4: 51978 12/13/2015 ([id number]) 07648 EST. PATIENT, LEVEL III Diagnosis: Essential (primary) hypertension[ICD10: I10] Diagnosis: (Idiopathic) normal pressure hydrocephalus[ICD10: G91.2] Tavia Dunham MD, [facility] CPT-4: 96367 08/15/2015 04900 EST. PATIENT, LEVEL III Diagnosis: Other acute nonsuppurative otitis media, right ear[ICD10: H65.191] Diagnosis: Acute upper respiratory infection, unspecified[ICD10: J06.9] Aditi Dunham MD, [facility] CPT-4: 97038 06/13/2015 ([id number]) 62562 EST. PATIENT, LEVEL III Diagnosis: Acute recurrent maxillary sinusitis[ICD10: J01.01] Diagnosis: Allergic rhinitis due to pollen[ICD10: J30.1] Kaylan Dunham MD, [facility] [place] CPT-4: 47446 06/07/2015 ([id number]) [id number] EST. PATIENT, LEVEL IV Diagnosis: (Idiopathic) normal pressure hydrocephalus[ICD10: G91.2] Diagnosis: Essential (primary) hypertension[ICD10: I10] Diagnosis: Dizziness and giddiness[ICD10: R42] Diagnosis: Nausea with vomiting, unspecified[ICD10: R11.2] Kaylan Dunham MD, [facility] [place] CPT-4: 23978 03/13/2015 [id number] EST. PATIENT, LEVEL III Diagnosis: Acute sinusitis, unspecified[ICD10: J01.90] Diagnosis: Allergic rhinitis, unspecified[ICD10: J30.9] Tavia Dunham MD, [facility] CPT-4: 92677 12/07/2014 ([id number]) [id number] EST. PATIENT, LEVEL IV Diagnosis: ESSENTIAL HYPERTENSION[ICD9: 401.9] Diagnosis: DIABETES TYPE II[ICD9: 250.00] Diagnosis: NPH (normal pressure hydrocephalus)[ICD9: 331.5] Diagnosis: Hypertriglyceridemia[ICD9: 272.1] Kaylan Al Dunham MD, [facility] CPT- 4: 57680 09/07/2014 ([id number]) OFFICE/OUTPATIENT VISIT NEW Diagnosis: DIABETES TYPE II[ICD9: 250.00] Diagnosis: ESSENTIAL HYPERTENSION[ICD9: 401.9] Diagnosis: NPH (normal pressure hydrocephalus)[ICD9: 331.5] Diagnosis: Abnormal gait[ICD9: 781.2] Diagnosis: VITAMIN D DEFICIENCY[ICD9: 268.9] Tavia Dunham MD, [facility] CPT- 4: 72672 08/07/2014 Plan of Care Planned Activity Notes Codes Status Date Visit Plan: Right shoulder pain - The [...] warmth, discharge. 12/21/2017 Appointment: Aditi Hamilton WPtel: [address] [place], [place] [id number] (15 min) Moderate 12/21/2017 Patient Education: Patient Medication Summary Completed 12/21/2017 App[facility]ment: [facility] ([facility]) Moderate 12/02/2017 Visit Plan: [...] edema. 11/30/2017 Appointment: Aditi Hamilton WPtel: [phone] [facility] (15 min) Moderate 11/30/2017 Patient Education: Patient Medication Summary Completed 11/30/2017 Care Plan: Comp Metabolic Pending 11/30/2017 Care Plan: Cbc With Differential Pending 11/30/2017 Care Plan: %Hba1C LOINC : 46899-1 Pending 11/30/2017 Care Plan: Lipid Pending 11/30/2017 Care Plan: Tsh Pending 11/30/2017 Care Plan: Free T4 Pending 11/30/2017 Appointment: Tavia Dunham WPtel: [phone] [facility] [place] (15 min) Moderate 11/26/2017 Appointment: Kaylan Melendez WPtel: [phone] [phone] [place] (30 min) Complex 08/13/2017 Appointment: Tavia Dunham WPtel: [phone] [facility] [place] (15 min) Moderate 08/04/2017 Appointment: Tavia Dunham WPtel: [phone] [facility] [place] (15 min) Moderate 07/20/2017 Visit Plan: [...] today 05/28/2017 Appointment: Tavia Dunham WPtel: [phone] [facility] (30 min) Complex 05/28/2017 Patient Education: Patient [...] pharmacy. 04/16/2017 Appointment: Tavia Dunham WPtel: [facility] (15 min) Moderate 04/16/2017 Patient Education: Patient [...] changes, questions, or concerns. 02/10/2017 Appointment: Aditi Hmailton WPtel: [facility] (15 min) Moderate 02/10/2017 Patient Education: Patient Medication Summary Completed 02/10/2017 Patient Education: Obesity Completed 02/10/2017 Visit Plan: Pain in Thoracic spine with muscle spasm - ibuprofen 600mg three times daily x 3 days, rx for cyclobenzaprine. 02/02/2017 Appointment: Tavia Dunham WPtel: [facility] [place] (15 min) Moderate 02/02/2017 Patient Education: [...] today. 01/27/2017 App[facility]ment: [phone] [facility] ([facility] min) Moderate 01/27/2017 Patient Education: [...] [phone] [place] (30 min) Complex 11/07/2016 Patient Education: Patient [...] allergy spray. 03/26/2016 Appointment: Aditi Hamilton WPtel: [address] [place], [place] [phone] (30 min) [facility] 03/26/2016 Patient Education: Patient Medication Summary Completed [...] medications. 12/13/2015 Appointment: [phone] [place] (15 min) Moderate 12/13/2015 Patient [...] supplement. 08/07/2014 App[facility]ment: [phone] [facility] [place] ([place] New Patient 08/07/2014 Patient [...] shunt placement by Dr Ruvalcaba-symptoms significantly improved ibuprofen 600mg three times a day x [...]
--- OUTSIDE RECORDS SUMMARY | 2018-10-08 11:52 | XMS REPORT | CCD ---
Author Author [facility] Organization [facility] Address [address] [place] [address] Phone Care Team Providers Care Mapper Name Role Phone PP Unavailable CCM Unavailable Summary Purpose Interface Exchange Insurance Providers Payer name Policy type / Coverage type Covered libertarian ID Effective Begin Date Effective End Date Blue Cross Blue [facility] Blue Cross/Blue [facility] [id number] Unknown Family history Mother Diagnosis Age At Onset Cancer Unknown Arthritis Unknown Depression Unknown Hyperlipidemia Unknown Diabetes mellitus Type 2 Unknown Social History Social History Element Codes Description Effective Dates Marital status Unknown [place] 08/07/2014 Number of children Unknown 0 08/07/2014 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/07/[address]: 469409327 Never smoker 08/07/[address]: 589532331 Never drinks alcohol 08/07/2014 Allergies, Adverse Reactions, [...] Start Date Stop Date Status Fill Instructions cyclobenzaprine 5 mg tablet RxNorm: 028850 1 Tablet(s) PO TID as needed 12/28/2017 01/11/2018 Active Zorvolex 35 mg capsule RxNorm: 3958397 1 Capsule(s) PO TID as needed 12/25/2017 05/23/2018 Active Levemir FlexTouch U-100 Insulin 100 unit/mL (3 mL) subcutaneous pen RxNorm: 081286 INJECT 2O UNITS SUBCUTANEOUSLY TWICE DAILY 12/21/2017 No Stop Date Active doxycycline hyclate 100 mg capsule RxNorm: 7470779 1 Capsule(s) PO BID 12/21/2017 12/30/2017 Active cyclobenzaprine 5 mg tablet RxNorm: 708215 1 Tablet(s) PO TID as needed 12/21/2017 12/25/2017 Inactive venlafaxine ER 150 mg capsule,extended release 24 hr RxNorm: 900345 TAKE 1 CAPSULE BY MOUTH ONCE DAILY 12/10/2017 No Stop Date Active Singulair 10 mg tablet RxNorm: 307709 1 Tablet(s) PO daily 12/03/2017 01/01/2018 Active Zithromax Z-Kulwant 250 mg tablet RxNorm: 422339 1 Tablet(s) PO UD 12/03/2017 No Stop Date Active z pack as directed Singulair 10 mg tablet RxNorm: 284073 1 Tablet(s) PO daily 12/03/2017 12/02/2017 Inactive Kenalog 40 mg/mL suspension for injection RxNorm: 4822930 1 Milliliter(s) Inj 11/30/2017 11/30/2017 Inactive prednisone 20 mg tablet RxNorm: 842471 2 Tablet(s) PO daily 11/30/2017 12/04/2017 Inactive Augmentin 875 mg-125 mg tablet RxNorm: 299671 1 Tablet(s) PO BID 11/27/2017 11/26/2017 Inactive Augmentin 875 mg-125 mg tablet RxNorm: 273183 1 Tablet(s) PO BID 11/27/2017 12/03/2017 Inactive Zorvolex 35 mg capsule RxNorm: 5632259 1 Capsule(s) PO TID as needed 11/09/2017 12/24/2017 Inactive hydrochlorothiazide 25 mg tablet RxNorm: 197894 1 Tablet(s) PO daily 10/22/2017 02/18/2018 Active enalapril maleate 5 mg tablet RxNorm: 074527 1 Tablet(s) PO daily TAKE ONE TABLET BY MOUTH ONCE DAILY 08/21/2017 02/16/2018 Active Levemir FlexTouch U-100 Insulin 100 unit/mL (3 mL) subcutaneous pen RxNorm: 357769 20 Unit(s) SQ BID 07/30/2017 12/20/2017 Inactive levothyroxine 125 mcg tablet RxNorm: 652460 TAKE ONE TABLET BY MOUTH ONCE DAILY 06/29/2017 No Stop Date Active venlafaxine ER 150 mg capsule,extended release 24 hr RxNorm: 155301 1 Capsule(s) PO daily TAKE ONE CAPSULE BY MOUTH ONCE DAILY 06/08/2017 12/04/2017 Inactive prednisone 20 mg tablet RxNorm: 597397 1 Tablet(s) PO daily 06/02/2017 06/06/2017 Inactive prednisone 20 mg tablet RxNorm: 127858 1 Tablet(s) PO daily 06/01/2017 06/05/2017 Inactive Kenalog 40 mg/mL suspension for injection RxNorm: 1878226 1 Milliliter(s) Inj 05/28/2017 05/28/2017 Inactive cefdinir 300 mg capsule RxNorm: 947292 1 Capsule(s) PO BID 05/28/2017 06/03/2017 Inactive ceftriaxone 500 mg solution for injection RxNorm: 7381086 1 Inj 05/28/2017 05/28/2017 Inactive prednisone 20 mg tablet RxNorm: 342997 1 Tablet(s) PO daily 05/28/2017 05/31/2017 Inactive Keflex 500 mg capsule RxNorm: 020838 1 Capsule(s) PO TID 05/26/2017 06/01/2017 Inactive Keflex 500 mg capsule RxNorm: 056485 1 Capsule(s) PO TID 05/26/2017 05/25/2017 Inactive hydrocodone 10 mg-chlorpheniramine 8 mg/5 mL oral susp extend.rel 12hr RxNorm: 5678310 5-10 Milliliter(s) PO TID as needed 04/16/2017 No Stop Date Active Tussionex Pennkinetic ER 10 mg-8 mg/5 mL suspension,extended release RxNorm: 7878589 5 Milliliter(s) PO BID 04/16/2017 04/27/2017 Inactive Zithromax Z-Kulwant 250 mg tablet RxNorm: 919641 1 Tablet(s) PO UD 03/25/2017 04/15/2017 Inactive z pack as directed enalapril maleate 5 mg tablet RxNorm: 422082 TAKE ONE TABLET BY MOUTH ONCE DAILY 02/26/2017 08/20/2017 Inactive Levemir FlexTouch 100 unit/mL (3 mL) subcutaneous insulin pen RxNorm: 575498 20 Unit(s) SQ BID 02/10/2017 07/11/2017 Inactive Zorvolex 35 mg capsule RxNorm: 8162893 1 Capsule(s) PO TID as needed 02/10/2017 11/08/2017 Inactive valacyclovir 1 gram tablet RxNorm: 205359 1 Tablet(s) PO TID 02/10/2017 02/16/2017 Inactive Levemir FlexTouch 100 unit/mL (3 mL) subcutaneous insulin pen RxNorm: 632667 20 Unit(s) SQ BID 02/04/2017 02/09/2017 Inactive cyclobenzaprine 5 mg tablet RxNorm: 447809 1 Tablet(s) PO qhs x 3 nights and TID as needed muscle spasms 02/02/2017 No Stop Date Active levothyroxine 125 mcg tablet RxNorm: 709440 TAKE ONE TABLET BY MOUTH ONCE DAILY 12/08/2016 06/05/2017 Inactive venlafaxine ER 150 mg capsule,extended release 24 hr RxNorm: 774688 TAKE ONE CAPSULE BY MOUTH ONCE DAILY 12/01/2016 05/29/2017 Inactive Zorvolex 35 mg capsule RxNorm: 8357472 1 Capsule(s) PO TID as needed do not take meloxicam at the same time 11/07/2016 No Stop Date Active enalapril maleate 5 mg tablet RxNorm: 034204 TAKE ONE TABLET BY MOUTH ONCE DAILY 10/31/2016 12/29/2016 Inactive meloxicam 15 mg tablet RxNorm: 402996 TAKE ONE TABLET BY MOUTH ONCE DAILY 10/30/2016 04/27/2017 Inactive meloxicam 15 mg tablet RxNorm: 632395 TAKE ONE TABLET BY MOUTH ONCE DAILY 10/24/2016 10/29/2016 Inactive enalapril maleate 5 mg tablet RxNorm: 471420 TAKE ONE TABLET BY MOUTH ONCE DAILY 10/24/2016 10/30/2016 Inactive venlafaxine ER 150 mg capsule,extended release 24 hr RxNorm: 228881 TAKE ONE CAPSULE BY MOUTH ONCE DAILY 06/16/2016 11/12/2016 Inactive meloxicam 15 mg tablet RxNorm: 344520 TAKE ONE TABLET BY MOUTH ONCE DAILY 06/09/2016 10/06/2016 Inactive enalapril maleate 5 mg tablet RxNorm: 423326 TAKE ONE TABLET BY MOUTH ONCE DAILY 06/02/2016 09/29/2016 Inactive Zithromax Z-Kulwant 250 mg tablet RxNorm: 357809 1 Tablet(s) PO UD 05/21/2016 06/15/2016 Inactive levothyroxine 125 mcg tablet RxNorm: 112129 Tablet(s) TAKE ONE TABLET BY MOUTH ONCE DAILY 04/15/2016 10/11/2016 Inactive Levaquin 500 mg tablet RxNorm: 578948 1 Tablet(s) PO daily 04/03/2016 04/09/2016 Inactive Levaquin 500 mg tablet RxNorm: 452860 1 Tablet(s) PO daily 04/03/2016 04/02/2016 Inactive prednisone 20 mg tablet RxNorm: 323002 2 Tablet(s) PO daily 03/28/2016 04/01/2016 Inactive Zithromax Z-Kulwant 250 mg tablet RxNorm: 211235 1 Tablet(s) PO UD 03/26/2016 03/30/2016 Inactive zpack Kenalog 40 mg/mL suspension for injection RxNorm: 0497071 Milliliter(s) Inj 03/26/2016 03/26/2016 Inactive Zofran ODT 4 mg disintegrating tablet RxNorm: 409105 DISSOLVE ONE TABLET IN MOUTH EVERY 6 HOURS NEEDED 02/22/2016 02/29/2016 Inactive venlafaxine ER 150 mg capsule,extended release 24 hr RxNorm: 861578 TAKE ONE CAPSULE BY MOUTH ONCE DAILY 02/18/2016 06/15/2016 Inactive meloxicam 15 mg tablet RxNorm: 239707 TAKE ONE TABLET BY MOUTH ONCE DAILY 02/04/2016 06/02/2016 Inactive aspirin 81 mg chewable tablet RxNorm: 856488 1 Tablet(s) PO daily 12/13/2015 12/06/2016 Inactive biotin 2,500 mcg tablet RxNorm: 155455 1 Tablet(s) PO daily 12/13/2015 09/07/2016 Inactive hydrochlorothiazide 25 mg tablet RxNorm: 296537 1 Tablet(s) PO daily 12/13/2015 04/10/2016 Inactive enalapril maleate 5 mg tablet RxNorm: 679608 TAKE ONE TABLET BY MOUTH ONCE DAILY 11/22/2015 05/19/2016 Inactive venlafaxine ER 150 mg capsule,extended release 24 hr RxNorm: 662429 TAKE ONE CAPSULE BY MOUTH ONCE DAILY 11/14/2015 02/11/2016 Inactive levothyroxine 125 mcg tablet RxNorm: 991133 Tablet(s) TAKE ONE TABLET BY MOUTH ONCE DAILY 11/06/2015 04/14/2016 Inactive levothyroxine 125 mcg tablet RxNorm: 965808 Tablet(s) TAKE ONE TABLET BY MOUTH ONCE DAILY 08/06/2015 11/03/2015 Inactive meclizine 25 mg tablet RxNorm: 546373 1/2-1 Tablet(s) PO Q6 as needed 07/16/2015 No Stop Date Active Flonase Allergy Relief 50 mcg/actuation nasal spray,suspension RxNorm: 1 [place] NASAL daily 06/13/2015 No Stop Date Active prednisone 20 mg tablet RxNorm: 153220 2 Tablet(s) PO daily 06/13/2015 06/17/2015 Inactive Augmentin 875 mg-125 mg tablet RxNorm: 773818 1 Tablet(s) PO BID 06/13/2015 06/19/2015 Inactive Zithromax Z-Kulwant 250 mg tablet RxNorm: 426102 1 Tablet(s) PO UD 06/07/2015 06/11/2015 Inactive zpack Kenalog 40 mg/mL suspension for injection RxNorm: 4881888 Milliliter(s) Inj 06/07/2015 06/07/2015 Inactive venlafaxine ER 150 mg capsule,extended release 24 hr RxNorm: 938902 TAKE ONE CAPSULE BY MOUTH ONCE DAILY 05/14/2015 11/09/2015 Inactive Augmentin 500 mg-125 mg tablet RxNorm: 258486 1 Tablet(s) PO TID 04/25/2015 05/04/2015 Inactive Augmentin 500 mg-125 mg tablet RxNorm: 456250 1 Tablet(s) PO TID 04/25/2015 04/24/2015 Inactive pravastatin 10 mg tablet RxNorm: 055055 1 Tablet(s) PO daily take with coenzyme q 10 daily 03/21/2015 07/18/2015 Inactive DC crestor pravastatin 10 mg tablet RxNorm: 792495 1 Tablet(s) PO daily take with coenzyme q 10 daily 03/21/2015 03/20/2015 Inactive DC crestor Zofran ODT 4 mg disintegrating tablet RxNorm: 888878 1 Tablet(s) PO Q6 PRN 03/13/2015 02/21/2016 Inactive levothyroxine 125 mcg tablet RxNorm: 746955 TAKE ONE TABLET BY MOUTH ONCE DAILY 02/13/2015 08/05/2015 Inactive meloxicam 15 mg tablet RxNorm: 011324 1 Tablet(s) PO daily 01/28/2015 01/22/2016 Inactive Zofran 4 mg tablet RxNorm: 744100 1 Tablet(s) PO Q6-8H as needed nausea 01/24/2015 No Stop Date Active Trulicity 1.5 mg/0.5 mL subcutaneous pen injector RxNorm: 9692337 0.75mg Milliliter(s) SQ QW 01/10/2015 No Stop Date Active venlafaxine ER 150 mg capsule,extended release 24 hr RxNorm: 866964 1 Capsule(s) PO daily 01/10/2015 05/09/2015 Inactive enalapril maleate 5 mg tablet RxNorm: 778410 1 Tablet(s) PO daily 01/04/2015 07/02/2015 Inactive amoxicillin 500 mg tablet RxNorm: 959124 1 Tablet(s) PO BID 12/07/2014 12/06/2014 Inactive Probiotic & Acidophilus 300 million cell-250 mg capsule RxNorm: 1 Capsule(s) PO BID 12/07/2014 12/16/2014 Inactive amoxicillin 500 mg tablet RxNorm: 793669 1 Tablet(s) PO BID 12/07/2014 12/16/2014 Inactive Kenalog 40 mg/mL suspension for injection RxNorm: 8751950 1 Milliliter(s) Inj 12/07/2014 12/07/2014 Inactive meloxicam 15 mg tablet RxNorm: 323299 1 Tablet(s) PO daily 10/24/2014 10/23/2014 Inactive meloxicam 15 mg tablet RxNorm: 501247 1 Tablet(s) PO daily 10/24/2014 01/27/2015 Inactive azithromycin 500 mg tablet RxNorm: 844028 1 Tablet(s) PO daily 10/11/2014 10/15/2014 Inactive azithromycin 500 mg tablet RxNorm: 754093 1 Tablet(s) PO daily 10/11/2014 10/10/2014 Inactive levothyroxine 125 mcg tablet RxNorm: 012320 1 Tablet(s) PO daily 10/06/2014 02/02/2015 Inactive enalapril maleate 5 mg tablet RxNorm: 303851 1 Tablet(s) PO daily 08/29/2014 12/26/2014 Inactive enalapril maleate 5 mg tablet RxNorm: 605008 1 Tablet(s) PO daily 08/25/2014 08/28/2014 Inactive Medroxy oral RxNorm: 1647689 oral No Start Date Active Vitamin D3 5,000 unit tablet RxNorm: 021014 1 Tablet(s) PO daily No Start Date Active fluconazole 200 mg tablet RxNorm: 218324 Tablet(s) PO No Start Date Active estradiol 2 mg tablet RxNorm: 864833 1 Tablet(s) PO daily No Start Date Active fenofibrate nanocrystallized 145 mg tablet RxNorm: 791104 1 Tablet(s) PO daily No Start Date Active hydrocodone 5 mg-acetaminophen 325 mg tablet RxNorm: 478187 1-2 Tablet(s) PO Q4-6H as needed No Start Date Active enalapril maleate 5 mg tablet RxNorm: 239527 1 Tablet(s) PO daily No Start Date 08/24/2014 Inactive glimepiride 4 mg tablet RxNorm: 022051 1 Tablet(s) PO daily No Start Date 01/26/2017 Inactive meclizine 25 mg tablet RxNorm: 401046 1/2-1 Tablet(s) PO Q6 as needed No Start Date 07/15/2015 Inactive Trulicity 0.75 mg/0.5 mL subcutaneous pen injector RxNorm: 1057154 0.75mg Milliliter(s) SQ QW No Start Date 01/09/2015 Inactive metformin 1,000 mg tablet RxNorm: 239421 Tablet(s) PO BID No Start Date 01/26/2017 Inactive venlafaxine ER 150 mg capsule,extended release 24 hr RxNorm: 274306 1 Capsule(s) PO daily No Start Date 01/09/2015 Inactive meloxicam 15 mg tablet RxNorm: 780456 1 Tablet(s) PO daily No Start Date 10/23/2014 Inactive levothyroxine 125 mcg tablet RxNorm: 989516 1 Tablet(s) PO daily No Start Date 10/05/2014 Inactive Levemir FlexTouch 100 unit/mL (3 mL) subcutaneous insulin pen RxNorm: 202393 15 Unit(s) SQ daily No Start Date 02/03/2017 Inactive Zithromax Z-Kulwant 250 mg tablet RxNorm: 319329 1 Tablet(s) PO UD No Start Date 05/20/2016 Inactive Fish Oil 1,000 mg capsule RxNorm: 1 Capsule(s) PO BID No Start Date 11/04/2016 Inactive Zofran 4 mg tablet RxNorm: 994211 1 Tablet(s) PO Q6-8H as needed nausea No Start Date 01/23/2015 Inactive Crestor 10 mg tablet RxNorm: 612740 1 Tablet(s) PO daily No Start Date 03/20/2015 Inactive Medication Administered Medication Codes Instructions Start Date Status Kenalog 40 mg/mL suspension for injection RxNorm: 4299327 1Milliliter 11/30/2017 No longer Active Kenalog 40 mg/mL suspension for injection RxNorm: 7926420 1Milliliter 05/28/2017 No longer Active ceftriaxone 500 mg solution for injection RxNorm: 6834740 1 05/28/2017 No longer Active Kenalog 40 mg/mL suspension for injection RxNorm: 6375576 Milliliter 03/26/2016 No longer Active Kenalog 40 mg/mL suspension for injection RxNorm: 0313826 Milliliter 06/07/2015 No longer Active Kenalog 40 mg/mL suspension for injection RxNorm: 4103800 1Milliliter 12/07/2014 No longer Active Immunizations Vaccine [...] Item Item Code Result Date CHEM 14 [id number] AST TNP:Lab Request 01/27/2017 CHEM 14 [id number] ALT TNP:Lab Request 01/27/2017 CHEM 14 [id number] BUN TNP:Lab Request 01/27/2017 CHEM 14 [id number] ALBUMIN TNP:Lab Request 01/27/2017 CHEM 14 [id number] CHLORIDE TNP:Lab Request 01/27/2017 CHEM 14 [id number] Bili Total TNP:Lab Request 01/27/2017 CHEM 14 [id number] ALK PHOS TNP:Lab Request 01/27/2017 CHEM 14 [id number] SODIUM TNP:Lab Request 01/27/2017 CHEM 14 [id number] CREATININE TNP:Lab Request 01/27/2017 CHEM 14 [id number] CALCIUM TNP:Lab Request 01/27/2017 CHEM 14 [id number] POTASSIUM TNP:Lab Request 01/27/2017 CHEM 14 [id number] TOTAL PROTEIN TNP:Lab Request 01/27/2017 CHEM 14 [id number] GLUCOSE TNP:Lab Request 01/27/2017 CHEM 14 [id number] Bicarbonate TNP:Lab Request 01/27/2017 CHEM 14 [id number] AGAP TNP:Lab Request 01/27/2017 AMYLASE [id number] Amylase Lvl TNP:Lab Request 01/27/2017 LIPID GRP [id number] CHOLESTEROL 273 mg/dL 2016 LIPID GRP Triglyceride 583 mg/dL 2016 LIPID GRP HDL CHOLESTEROL 48 mg/dL 2016 LIPID GRP 1955100 Chol/HDL Ratio 5.69 ratio 2016 LIPID GRP 4221179 NON-HDL Chol 225 mg/dL 2016 LIPID GRP LDL Cholesterol N/A Trig >400 2016 A1C HPLC 6448787 Hgb A1c 11452-8 7.3 % 2016 TSH 5565991 TSH 1.340 uIU/mL 2016 FREE T4 6115168 T4 Free 1.60 ng/dL 2016 MEAN GLUC 1637724 Calc Mean Gluc 163 mg/dL 2016 GFR CALC 9270485 GFR Non Afr Amr >60 mL/min 2016 GFR CALC 3946133 GFR Afr Amr >60 mL/min 2016 CBC 8633376 WBC 8.1 10e9/L 2016 CBC 7021139 RBC 4.41 10e12/L 2016 CBC 1122937 HEMOGLOBIN 13.2 g/dL 2016 CBC 8794318 HEMATOCRIT 39.6 % 2016 CBC 6695201 MCV 89.8 fL 2016 CBC 2012981 MCH 29.9 pg 2016 CBC 0173844 MCHC 33.3 g/dL 2016 CBC 6640677 PLATELET COUNT 298 10e9/L 2016 CBC 9591794 Mean Plt Volume 10.5 fL 2016 CBC 0194012 Neut Auto 61.3 % 2016 CBC 9654019 Lymph Auto 26.3 % 2016 CBC 4658556 [place] Auto 7.7 % 2016 CBC 5675820 Eos Auto 4.2 % 2016 CBC 7504845 RDW 13.6 % 2016 CBC 1854054 Baso Auto 0.5 % 2016 CBC 4278396 Neutrophil Abs 4.97 10e9/L 2016 CBC 7998607 Lymphocyte Abs 2.13 10e9/L 2016 CBC 6948506 Monocyte Abs 0.62 10e9/L 2016 CBC 4685477 Eosinophil Abs 0.34 10e9/L 2016 CBC 2406942 Basophil Abs 0.04 10e9/L 2016 CBC 0760538 RDW-SD 44.1 fL 2016 CHEM 14 1069073 AST 19 U/L 2016 CHEM 14 9630789 ALT 26 U/L 2016 CHEM 14 2592650 BUN 20 mg/dL 2016 CHEM 14 8469329 ALBUMIN 4.1 g/dL 2016 CHEM 14 1465097 CHLORIDE 99 mmol/L 2016 CHEM 14 6462380 Bili Total 0.3 mg/dL 2016 CHEM 14 4560186 ALK PHOS 55 U/L 2016 CHEM 14 8141309 SODIUM 135 mmol/L 2016 CHEM 14 0388491 CREATININE 0.87 mg/dL 2016 CHEM 14 2915391 CALCIUM 9.3 mg/dL 2016 CHEM 14 1213564 POTASSIUM 4.0 mmol/L 2016 CHEM 14 4593271 TOTAL PROTEIN 7.0 g/dL 2016 CHEM 14 4726247 GLUCOSE 149 mg/dL 2016 CHEM 14 1446685 Bicarbonate 26 mmol/L 2016 CHEM 14 0749464 AGAP 10 mmol/L 2016 Review of Systems [...] 4: J0696 05/28/2017 THER/PROPH/DIAG INJ SC/IM CPT-4: 67638 05/19/2017 KETOROLAC TROMETHAMINE INJ CPT-4: J1885 05/19/2017 TRIAMCINOLONE ACET INJ NOS CPT-4: J3301 03/26/2016 TRIAMCINOLONE ACET INJ NOS CPT-4: J3301 06/07/2015 THER/PROPH/DIAG INJ SC/IM CPT-4: 86312 12/07/2014 TRIAMCINOLONE ACET INJ NOS CPT-4: J3301 12/07/2014 Vital Signs Date Vital 12/21/2017 Blood Pressure 1: 154/78 Code: 8480-6 BMI: 33.5 Code: 24070-0 Heart Rate 1: 93 bpm Height: 5'7" SpO2: 96% Weight: 214 lbs 11/30/2017 Blood Pressure 1: 148/88 Code: 8480-6 BMI: 33.5 Code: 12027-0 Heart Rate 1: 80 bpm Height: 5'7" SpO2: 97% Temperature: 36.9 (C) / 98.5 (F) Weight: 214 lbs 05/28/2017 Blood Pressure 1: 128/70 Code: 8480-6 BMI: 31.3 Code: 19710-5 Heart Rate 1: 103 bpm Height: 5'7" SpO2: 98% Temperature: 36.7 (C) / 98.1 (F) Weight: 200 lbs 05/19/2017 Blood Pressure 1: 150/72 Code: 8480-6 04/16/2017 Blood Pressure 1: 146/88 Code: 8480-6 BMI: 31.3 Code: 49021-3 Heart Rate 1: 96 bpm Height: 5'7" SpO2: 94% Temperature: 37.2 (C) / 99.0 (F) Weight: 200 lbs 02/10/2017 Blood Pressure 1: 132/72 Code: 8480-6 BMI: 31.3 Code: 60680-4 Heart Rate 1: 99 bpm Height: 5'7" SpO2: 97% Weight: 200 lbs 02/02/2017 Blood Pressure 1: 140/68 Code: 8480-6 BMI: 31.4 Code: 82061-3 Heart Rate 1: 82 bpm Height: 5'7" SpO2: 97% Weight: 200 lbs 8 oz 01/27/2017 Blood Pressure 1: 142/80 Code: 8480-6 BMI: 32.2 Code: 39713-2 Height: 5'7" Temperature: 37.2 (C) / 98.9 (F) Weight: 205 lbs 8 oz 11/07/2016 Blood Pressure 1: 148/82 Code: 8480-6 BMI: 32.7 Code: 28079-4 Heart Rate 1: 106 bpm Height: 5'7" SpO2: 97% Weight: 209 lbs 03/26/2016 Blood Pressure 1: 140/86 Code: 8480-6 Heart Rate 1: 90 bpm Height: SpO2: 97% Weight: 12/13/2015 Blood Pressure 1: 132/72 Code: 8480-6 BMI: 31.2 Code: 21165-8 Heart Rate 1: 84 bpm Height: 5'7" SpO2: 98% Weight: 199 lbs 08/15/2015 Blood Pressure 1: 138/88 Code: 8480-6 BMI: 32.1 Code: 25490-1 Heart Rate 1: 94 bpm Height: 5'7" SpO2: 97% Weight: 205 lbs 06/13/2015 Blood Pressure 1: 146/78 Code: 8480-6 Blood Pressure 1: 188/88 Code: 8480-6 BMI: 32.6 Code: 28723-0 Heart Rate 1: 97 bpm Height: 5'7" SpO2: 98% Weight: 208 lbs 06/07/2015 Blood Pressure 1: 128/82 Code: 8480-6 BMI: 32.4 Code: 15218-4 Heart Rate 1: 80 bpm Height: 5'7" SpO2: 99% Weight: 207 lbs 03/13/2015 Blood Pressure 1: 124/70 Code: 8480-6 BMI: 31.6 Code: 62618-3 Heart Rate 1: 103 bpm Height: 5'7" Respiratory Rate: 18 bpm SpO2: 97% Temperature: 36.6 (C) / 97.8 (F) Weight: 202 lbs 12/07/2014 Blood Pressure 1: 140/80 Code: 8480-6 BMI: 32.3 Code: 01307-3 Heart Rate 1: 97 bpm Height: 5'7" SpO2: 99% Weight: 206 lbs 09/07/2014 Blood Pressure 1: 132/78 Code: 8480-6 BMI: 31.2 Code: 20524-6 Heart Rate 1: 92 bpm Height: 5'7" [...] Location diffusely 09/07/2014 improvement with shunt placement- 6--15- Dr Ruvalcaba in [place] did surgery headache Onset and Resolution ongoing [...] Performer Location Codes Date EST. PATIENT, LEVEL IV Diagnosis: Pain in right shoulder[ICD10: M25.511] Diagnosis: Rash and other nonspecific skin eruption[ICD10: R21] [facility] CPT-4: 58933 12/21/[id number] EST. PATIENT, LEVEL IV Diagnosis: Other acute sinusitis[ICD10: J01.80] Diagnosis: Other allergic rhinitis[ICD10: J30.89] Diagnosis: Localized edema[ICD10: R60.0] Aditi Dunham MD [facility] CPT-4: 40650 11/30/2017 ([id number]) 64071 EST. PATIENT, LEVEL III Diagnosis: Acute recurrent maxillary sinusitis[ICD10: J01.01] Diagnosis: Cough[ICD10: R05] Tavia Dunham MD [facility] CPT-4: 17099 05/28/2017 ([id number]) [id number] EST. PATIENT, LEVEL III Diagnosis: Acute laryngopharyngitis[ICD10: J06.0] Diagnosis: Cough[ICD10: R05] Tavia Dunham MD [facility] CPT-4: 91799 04/16/2017 [id number] EST. PATIENT, LEVEL III Diagnosis: Left lower quadrant pain[ICD10: R10.32] Aditi Dunham MD [facility] CPT-4: 68400 02/10/2017 ([id number]) 03588 EST. PATIENT, LEVEL III Diagnosis: Pain in thoracic spine[ICD10: M54.6] Diagnosis: Other muscle spasm[ICD10: M62.838] Tavia Dunham MD [facility] CPT- 4: 38191 02/02/2017 ([id number]) 57348 EST. PATIENT, LEVEL IV Diagnosis: Other acute pancreatitis without necrosis or infection[ICD10: K85.80] Diagnosis: Epigastric pain[ICD10: R10.13] Diagnosis: Type 2 diabetes mellitus without complications[ICD10: E11.9] Tavia Dunham MD, [facility] CPT-4: 28119 01/27/2017 [id number] EST. PATIENT, LEVEL IV Diagnosis: Essential (primary) hypertension[ICD10: I10] Diagnosis: Type 1 diabetes mellitus without complications[ICD10: E10.9] Diagnosis: Other specified hypothyroidism[ICD10: E03.8] Diagnosis: Bilateral primary osteoarthritis of hip[ICD10: M16.0] Diagnosis: Actinic keratosis[ICD10: L57.0] Aditi Dunham MD, [facility] CPT-4: 97854 11/07/2016 [id number] EST. PATIENT, LEVEL III Diagnosis: Other acute sinusitis[ICD10: J01.80] Diagnosis: Other allergic rhinitis[ICD10: J30.89] Diagnosis: Cough[ICD10: R05] Aditi Dunham MD, [facility] CPT-4: 74644 03/26/2016 ([id number]) 94854 EST. PATIENT, LEVEL IV Diagnosis: Essential (primary) hypertension[ICD10: I10] Diagnosis: Pure hyperglyceridemia[ICD10: E78.1] Tavia Dunham MD, [facility] CPT- 4: 56676 12/13/2015 ([id number]) 34042 EST. PATIENT, LEVEL III Diagnosis: Essential (primary) hypertension[ICD10: I10] Diagnosis: (Idiopathic) normal pressure hydrocephalus[ICD10: G91.2] Tavia Dunham MD, [facility] CPT-4: 15878 08/15/2015 [id number] EST. PATIENT, LEVEL III Diagnosis: Other acute nonsuppurative otitis media, right ear[ICD10: H65.191] Diagnosis: Acute upper respiratory infection, unspecified[ICD10: J06.9] Aditi Dunham MD, [facility] CPT-4: 94497 06/13/2015 ([id number]) 37195 EST. PATIENT, LEVEL III Diagnosis: Acute recurrent maxillary sinusitis[ICD10: J01.01] Diagnosis: Allergic rhinitis due to pollen[ICD10: J30.1] Kaylan Dunham MD, [facility] CPT-4: 15769 06/07/2015 ([id number]) 23875 EST. PATIENT, LEVEL IV Diagnosis: (Idiopathic) normal pressure hydrocephalus[ICD10: G91.2] Diagnosis: Essential (primary) hypertension[ICD10: I10] Diagnosis: Dizziness and giddiness[ICD10: R42] Diagnosis: Nausea with vomiting, unspecified[ICD10: R11.2] Kaylan Dunham MD, [facility] CPT-4: 67768 03/13/2015 [id number] EST. PATIENT, LEVEL III Diagnosis: Acute sinusitis, unspecified[ICD10: J01.90] Diagnosis: Allergic rhinitis, unspecified[ICD10: J30.9] Tavia Dunham MD, [facility] CPT-4: 18068 12/07/2014 ([id number]) 32359 EST. PATIENT, LEVEL IV Diagnosis: ESSENTIAL HYPERTENSION[ICD9: 401.9] Diagnosis: DIABETES TYPE II[ICD9: 250.00] Diagnosis: NPH (normal pressure hydrocephalus)[ICD9: 331.5] Diagnosis: Hypertriglyceridemia[ICD9: 272.1] [facility] CPT- 4: 71446 09/07/2014 ([id number]) OFFICE/OUTPATIENT VISIT NEW Diagnosis: DIABETES TYPE II[ICD9: 250.00] Diagnosis: ESSENTIAL HYPERTENSION[ICD9: 401.9] Diagnosis: NPH (normal pressure hydrocephalus)[ICD9: 331.5] Diagnosis: Abnormal gait[ICD9: 781.2] Diagnosis: VITAMIN D DEFICIENCY[ICD9: 268.9] [facility] CPT- 4: 88389 08/07/2014 Plan of Care Planned Activity Notes [...] warmth, discharge. 12/21/2017 Appointment: Aditi Hamilton WPtel: [address] [place], [place] [phone] (15 min) Moderate 12/21/2017 Patient Education: Patient Medication Summary Completed 12/21/2017 Appointment: Tavia Dunham WPtel: [address] [place], [place] [phone] (15 min) Moderate 12/02/2017 Visit Plan: Sinusitis [...] WPtel: [phone] [facility] (15 min) Moderate 11/30/2017 Patient Education: Patient Medication Summary Completed 11/30/2017 Care Plan: Comp Metabolic Pending 11/30/2017 Care Plan: Cbc With Differential Pending 11/30/2017 Care Plan: %Hba1C LOINC : [id number] Pending 11/30/2017 Care Plan: Lipid Pending 11/30/2017 Care Plan: Tsh Pending 11/30/2017 Care Plan: Free T4 Pending 11/30/2017 Appointment: Tavia Dunham WPtel: [phone] [facility] [place] (15 min) Moderate 11/26/2017 Appointment: Kaylan Melendez WPtel: [phone] [phone] [place] (30 min) Complex 08/13/2017 Appointment: Tavia Dunahm WPtel: [phone] [facility] [place] (15 min) Moderate 08/04/2017 Appointment: Tavia Dunham WPtel: [phone] [facility] [place] (15 min) Moderate 07/20/2017 Visit [...] Appointment: [facility]el[facility] ([facility] Complex 05/28/2017 Patient Education: [...] Appointment: Tavia Dunham WPtel: [facility] (15 min) Moderate 04/16/2017 Patient Education: Patient [...] Appointment: Aditi Hamilton WPtel: [phone] (15 min) Moderate 02/10/2017 Patient Education: Patient Medication Summary Completed 02/10/2017 Patient Education: Obesity Completed 02/10/2017 Visit Plan: Pain in Thoracic spine with muscle spasm - ibuprofen 600mg three times daily x 3 days, rx for cyclobenzaprine. 02/02/2017 Appointment: Tavia Dunham WPtel: [id number] ([facility] min) Moderate 02/02/2017 Patient [...] today. 01/27/2017 App[facility]ment[phone] ([facility] min) Moderate 01/27/2017 Patient [...] for break through pain symptoms. 11/07/2016 [facility] Aid[phone] ([facility]) Complex 11/07/2016 Patient Education: Patient [...] allergy spray. 03/26/2016 Appointment: Aditi Hamilton WPtel[facility] ([facility]) Complex 03/26/2016 Patient Education: Patient [...] medications. 12/13/2015 App[facility]ment[phone] ([facility] min) Moderate 12/13/2015 Patient Education: [...] on supplement. 08/07/2014 Appointment: Tavia Dunham WPtel: [address] [place], [place] [address] [place] ([place]) New Patient 08/07/2014 Patient Education: [...]
--- OUTSIDE RECORDS SUMMARY | 2018-10-08 11:55 | XMS REPORT | CCD ---
Author Author [facility] Organization [facility] Address [address] [place] [address] Phone Care Team Providers Care Machine Operator Packaging Name Role Phone PP Unavailable CCM Unavailable Summary Purpose Interface Exchange Insurance Providers Payer name Policy type / Coverage type Covered green party ID Effective Begin Date Effective End Date Blue Cross Blue [facility] Blue Cross/Blue [facility] [id number] Unknown Family history Mother Diagnosis Age At Onset Cancer Unknown Arthritis Unknown Depression Unknown Hyperlipidemia Unknown Diabetes mellitus Type 2 Unknown Social History Social History Element Codes Description Effective Dates Marital status Unknown [place] 08/07/2014 Number of children Unknown 0 08/07/2014 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[employer] 08/07/[address]: 526117289 Never smoker 08/07/[address]: 299368206 Never drinks alcohol 08/07/2014 Allergies, Adverse Reactions, [...] 100 unit/mL (3 mL) subcutaneous pen RxNorm: 778258 INJECT 2O UNITS SUBCUTANEOUSLY TWICE DAILY 12/21/2017 No Stop Date Active cyclobenzaprine 5 mg tablet RxNorm: 829378 1 Tablet(s) PO TID as needed 12/21/2017 12/25/2017 Active doxycycline hyclate 100 mg capsule RxNorm: 0309234 1 Capsule(s) PO BID 12/21/2017 12/30/2017 Active venlafaxine ER 150 mg capsule,extended release 24 hr RxNorm: 775816 TAKE 1 CAPSULE BY MOUTH ONCE DAILY 12/10/2017 No Stop Date Active Singulair 10 mg tablet RxNorm: 580029 1 Tablet(s) PO daily 12/03/2017 01/01/2018 Active Zithromax Z-Kulwant 250 mg tablet RxNorm: 348839 1 Tablet(s) PO UD 12/03/2017 No Stop Date Active z pack as directed Singulair 10 mg tablet RxNorm: 859145 1 Tablet(s) PO daily 12/03/2017 12/02/2017 Inactive Kenalog 40 mg/mL suspension for injection RxNorm: 1663046 1 Milliliter(s) Inj 11/30/2017 11/30/2017 Inactive prednisone 20 mg tablet RxNorm: 839508 2 Tablet(s) PO daily 11/30/2017 12/04/2017 Inactive Augmentin 875 mg-125 mg tablet RxNorm: 074522 1 Tablet(s) PO BID 11/27/2017 11/26/2017 Inactive Augmentin 875 mg-125 mg tablet RxNorm: 768101 1 Tablet(s) PO BID 11/27/2017 12/03/2017 Inactive Zorvolex 35 mg capsule RxNorm: 6219419 1 Capsule(s) PO TID as needed 11/09/2017 04/07/2018 Active hydrochlorothiazide 25 mg tablet RxNorm: 375966 1 Tablet(s) PO daily 10/22/2017 02/18/2018 Active enalapril maleate 5 mg tablet RxNorm: 244543 1 Tablet(s) PO daily TAKE ONE TABLET BY MOUTH ONCE DAILY 08/21/2017 02/16/2018 Active Levemir FlexTouch U-100 Insulin 100 unit/mL (3 mL) subcutaneous pen RxNorm: 031341 20 Unit(s) SQ BID 07/30/2017 12/20/2017 Inactive levothyroxine 125 mcg tablet RxNorm: 753962 TAKE ONE TABLET BY MOUTH ONCE DAILY 06/29/2017 No Stop Date Active venlafaxine ER 150 mg capsule,extended release 24 hr RxNorm: 698367 1 Capsule(s) PO daily TAKE ONE CAPSULE BY MOUTH ONCE DAILY 06/08/2017 12/04/2017 Inactive prednisone 20 mg tablet RxNorm: 520477 1 Tablet(s) PO daily 06/02/2017 06/06/2017 Inactive prednisone 20 mg tablet RxNorm: 313712 1 Tablet(s) PO daily 06/01/2017 06/05/2017 Inactive Kenalog 40 mg/mL suspension for injection RxNorm: 1884134 1 Milliliter(s) Inj 05/28/2017 05/28/2017 Inactive cefdinir 300 mg capsule RxNorm: 510752 1 Capsule(s) PO BID 05/28/2017 06/03/2017 Inactive ceftriaxone 500 mg solution for injection RxNorm: 4664661 1 Inj 05/28/2017 05/28/2017 Inactive prednisone 20 mg tablet RxNorm: 333449 1 Tablet(s) PO daily 05/28/2017 05/31/2017 Inactive Keflex 500 mg capsule RxNorm: 411951 1 Capsule(s) PO TID 05/26/2017 06/01/2017 Inactive Keflex 500 mg capsule RxNorm: 232294 1 Capsule(s) PO TID 05/26/2017 05/25/2017 Inactive hydrocodone 10 mg-chlorpheniramine 8 mg/5 mL oral susp extend.rel 12hr RxNorm: 1083004 5-10 Milliliter(s) PO TID as needed 04/16/2017 No Stop Date Active Tussionex Pennkinetic ER 10 mg-8 mg/5 mL suspension,extended release RxNorm: 2874769 5 Milliliter(s) PO BID 04/16/2017 04/27/2017 Inactive Zithromax Z-Kulwant 250 mg tablet RxNorm: 474503 1 Tablet(s) PO UD 03/25/2017 04/15/2017 Inactive z pack as directed enalapril maleate 5 mg tablet RxNorm: 493123 TAKE ONE TABLET BY MOUTH ONCE DAILY 02/26/2017 08/20/2017 Inactive Levemir FlexTouch 100 unit/mL (3 mL) subcutaneous insulin pen RxNorm: 421942 20 Unit(s) SQ BID 02/10/2017 07/11/2017 Inactive Zorvolex 35 mg capsule RxNorm: 4324473 1 Capsule(s) PO TID as needed 02/10/2017 11/08/2017 Inactive valacyclovir 1 gram tablet RxNorm: 991387 1 Tablet(s) PO TID 02/10/2017 02/16/2017 Inactive Levemir FlexTouch 100 unit/mL (3 mL) subcutaneous insulin pen RxNorm: 960231 20 Unit(s) SQ BID 02/04/2017 02/09/2017 Inactive cyclobenzaprine 5 mg tablet RxNorm: 619843 1 Tablet(s) PO qhs x 3 nights and TID as needed muscle spasms 02/02/2017 No Stop Date Active levothyroxine 125 mcg tablet RxNorm: 200593 TAKE ONE TABLET BY MOUTH ONCE DAILY 12/08/2016 06/05/2017 Inactive venlafaxine ER 150 mg capsule,extended release 24 hr RxNorm: 617700 TAKE ONE CAPSULE BY MOUTH ONCE DAILY 12/01/2016 05/29/2017 Inactive Zorvolex 35 mg capsule RxNorm: 0825225 1 Capsule(s) PO TID as needed do not take meloxicam at the same time 11/07/2016 No Stop Date Active enalapril maleate 5 mg tablet RxNorm: 101459 TAKE ONE TABLET BY MOUTH ONCE DAILY 10/31/2016 12/29/2016 Inactive meloxicam 15 mg tablet RxNorm: 353464 TAKE ONE TABLET BY MOUTH ONCE DAILY 10/30/2016 04/27/2017 Inactive meloxicam 15 mg tablet RxNorm: 004235 TAKE ONE TABLET BY MOUTH ONCE DAILY 10/24/2016 10/29/2016 Inactive enalapril maleate 5 mg tablet RxNorm: 638394 TAKE ONE TABLET BY MOUTH ONCE DAILY 10/24/2016 10/30/2016 Inactive venlafaxine ER 150 mg capsule,extended release 24 hr RxNorm: 568288 TAKE ONE CAPSULE BY MOUTH ONCE DAILY 06/16/2016 11/12/2016 Inactive meloxicam 15 mg tablet RxNorm: 852520 TAKE ONE TABLET BY MOUTH ONCE DAILY 06/09/2016 10/06/2016 Inactive enalapril maleate 5 mg tablet RxNorm: 985437 TAKE ONE TABLET BY MOUTH ONCE DAILY 06/02/2016 09/29/2016 Inactive Zithromax Z-Kulwant 250 mg tablet RxNorm: 085318 1 Tablet(s) PO UD 05/21/2016 06/15/2016 Inactive levothyroxine 125 mcg tablet RxNorm: 513872 Tablet(s) TAKE ONE TABLET BY MOUTH ONCE DAILY 04/15/2016 10/11/2016 Inactive Levaquin 500 mg tablet RxNorm: 020886 1 Tablet(s) PO daily 04/03/2016 04/09/2016 Inactive Levaquin 500 mg tablet RxNorm: 906839 1 Tablet(s) PO daily 04/03/2016 04/02/2016 Inactive prednisone 20 mg tablet RxNorm: 755350 2 Tablet(s) PO daily 03/28/2016 04/01/2016 Inactive Zithromax Z-Kulwant 250 mg tablet RxNorm: 464608 1 Tablet(s) PO UD 03/26/2016 03/30/2016 Inactive raymond Kenalog 40 mg/mL suspension for injection RxNorm: 2727322 Milliliter(s) Inj 03/26/2016 03/26/2016 Inactive Zofran ODT 4 mg disintegrating tablet RxNorm: 579151 DISSOLVE ONE TABLET IN MOUTH EVERY 6 HOURS NEEDED 02/22/2016 02/29/2016 Inactive venlafaxine ER 150 mg capsule,extended release 24 hr RxNorm: 568593 TAKE ONE CAPSULE BY MOUTH ONCE DAILY 02/18/2016 06/15/2016 Inactive meloxicam 15 mg tablet RxNorm: 438671 TAKE ONE TABLET BY MOUTH ONCE DAILY 02/04/2016 06/02/2016 Inactive aspirin 81 mg chewable tablet RxNorm: 297421 1 Tablet(s) PO daily 12/13/2015 12/06/2016 Inactive biotin 2,500 mcg tablet RxNorm: 335255 1 Tablet(s) PO daily 12/13/2015 09/07/2016 Inactive hydrochlorothiazide 25 mg tablet RxNorm: 231555 1 Tablet(s) PO daily 12/13/2015 04/10/2016 Inactive enalapril maleate 5 mg tablet RxNorm: 485626 TAKE ONE TABLET BY MOUTH ONCE DAILY 11/22/2015 05/19/2016 Inactive venlafaxine ER 150 mg capsule,extended release 24 hr RxNorm: 168882 TAKE ONE CAPSULE BY MOUTH ONCE DAILY 11/14/2015 02/11/2016 Inactive levothyroxine 125 mcg tablet RxNorm: 204869 Tablet(s) TAKE ONE TABLET BY MOUTH ONCE DAILY 11/06/2015 04/14/2016 Inactive levothyroxine 125 mcg tablet RxNorm: 509737 Tablet(s) TAKE ONE TABLET BY MOUTH ONCE DAILY 08/06/2015 11/03/2015 Inactive meclizine 25 mg tablet RxNorm: 699250 1/2-1 Tablet(s) PO Q6 as needed 07/16/2015 No Stop Date Active Flonase Allergy Relief 50 mcg/actuation nasal spray,suspension RxNorm: 1 [place] NASAL daily 06/13/2015 No Stop Date Active prednisone 20 mg tablet RxNorm: 731435 2 Tablet(s) PO daily 06/13/2015 06/17/2015 Inactive Augmentin 875 mg-125 mg tablet RxNorm: 619162 1 Tablet(s) PO BID 06/13/2015 06/19/2015 Inactive Zithromax Z-Kulwant 250 mg tablet RxNorm: 107499 1 Tablet(s) PO UD 06/07/2015 06/11/2015 Inactive zpack Kenalog 40 mg/mL suspension for injection RxNorm: 2904850 Milliliter(s) Inj 06/07/2015 06/07/2015 Inactive venlafaxine ER 150 mg capsule,extended release 24 hr RxNorm: 072319 TAKE ONE CAPSULE BY MOUTH ONCE DAILY 05/14/2015 11/09/2015 Inactive Augmentin 500 mg-125 mg tablet RxNorm: 857802 1 Tablet(s) PO TID 04/25/2015 05/04/2015 Inactive Augmentin 500 mg-125 mg tablet RxNorm: 056563 1 Tablet(s) PO TID 04/25/2015 04/24/2015 Inactive pravastatin 10 mg tablet RxNorm: 805273 1 Tablet(s) PO daily take with coenzyme q 10 daily 03/21/2015 07/18/2015 Inactive DC crestor pravastatin 10 mg tablet RxNorm: 843112 1 Tablet(s) PO daily take with coenzyme q 10 daily 03/21/2015 03/20/2015 Inactive DC crestor Zofran ODT 4 mg disintegrating tablet RxNorm: 800421 1 Tablet(s) PO Q6 PRN 03/13/2015 02/21/2016 Inactive levothyroxine 125 mcg tablet RxNorm: 182406 TAKE ONE TABLET BY MOUTH ONCE DAILY 02/13/2015 08/05/2015 Inactive meloxicam 15 mg tablet RxNorm: 772769 1 Tablet(s) PO daily 01/28/2015 01/22/2016 Inactive Zofran 4 mg tablet RxNorm: 516758 1 Tablet(s) PO Q6-8H as needed nausea 01/24/2015 No Stop Date Active Trulicity 1.5 mg/0.5 mL subcutaneous pen injector RxNorm: 0601179 0.75mg Milliliter(s) SQ QW 01/10/2015 No Stop Date Active venlafaxine ER 150 mg capsule,extended release 24 hr RxNorm: 018647 1 Capsule(s) PO daily 01/10/2015 05/09/2015 Inactive enalapril maleate 5 mg tablet RxNorm: 836992 1 Tablet(s) PO daily 01/04/2015 07/02/2015 Inactive amoxicillin 500 mg tablet RxNorm: 924218 1 Tablet(s) PO BID 12/07/2014 12/06/2014 Inactive Probiotic & Acidophilus 300 million cell-250 mg capsule RxNorm: 1 Capsule(s) PO BID 12/07/2014 12/16/2014 Inactive amoxicillin 500 mg tablet RxNorm: 344292 1 Tablet(s) PO BID 12/07/2014 12/16/2014 Inactive Kenalog 40 mg/mL suspension for injection RxNorm: 6241878 1 Milliliter(s) Inj 12/07/2014 12/07/2014 Inactive meloxicam 15 mg tablet RxNorm: 091340 1 Tablet(s) PO daily 10/24/2014 10/23/2014 Inactive meloxicam 15 mg tablet RxNorm: 080118 1 Tablet(s) PO daily 10/24/2014 01/27/2015 Inactive azithromycin 500 mg tablet RxNorm: 171707 1 Tablet(s) PO daily 10/11/2014 10/15/2014 Inactive azithromycin 500 mg tablet RxNorm: 029114 1 Tablet(s) PO daily 10/11/2014 10/10/2014 Inactive levothyroxine 125 mcg tablet RxNorm: 666996 1 Tablet(s) PO daily 10/06/2014 02/02/2015 Inactive enalapril maleate 5 mg tablet RxNorm: 072139 1 Tablet(s) PO daily 08/29/2014 12/26/2014 Inactive enalapril maleate 5 mg tablet RxNorm: 972952 1 Tablet(s) PO daily 08/25/2014 08/28/2014 Inactive Medroxy oral RxNorm: 3474977 oral No Start Date Active Vitamin D3 5,000 unit tablet RxNorm: 917797 1 Tablet(s) PO daily No Start Date Active fluconazole 200 mg tablet RxNorm: 125551 Tablet(s) PO No Start Date Active estradiol 2 mg tablet RxNorm: 730932 1 Tablet(s) PO daily No Start Date Active fenofibrate nanocrystallized 145 mg tablet RxNorm: 994153 1 Tablet(s) PO daily No Start Date Active hydrocodone 5 mg-acetaminophen 325 mg tablet RxNorm: 981085 1-2 Tablet(s) PO Q4-6H as needed No Start Date Active enalapril maleate 5 mg tablet RxNorm: 020264 1 Tablet(s) PO daily No Start Date 08/24/2014 Inactive glimepiride 4 mg tablet RxNorm: 960872 1 Tablet(s) PO daily No Start Date 01/26/2017 Inactive meclizine 25 mg tablet RxNorm: 016683 1/2-1 Tablet(s) PO Q6 as needed No Start Date 07/15/2015 Inactive Trulicity 0.75 mg/0.5 mL subcutaneous pen injector RxNorm: 7880778 0.75mg Milliliter(s) SQ QW No Start Date 01/09/2015 Inactive metformin 1,000 mg tablet RxNorm: 131189 Tablet(s) PO BID No Start Date 01/26/2017 Inactive venlafaxine ER 150 mg capsule,extended release 24 hr RxNorm: 566986 1 Capsule(s) PO daily No Start Date 01/09/2015 Inactive meloxicam 15 mg tablet RxNorm: 606134 1 Tablet(s) PO daily No Start Date 10/23/2014 Inactive levothyroxine 125 mcg tablet RxNorm: 723259 1 Tablet(s) PO daily No Start Date 10/05/2014 Inactive Levemir FlexTouch 100 unit/mL (3 mL) subcutaneous insulin pen RxNorm: 314284 15 Unit(s) SQ daily No Start Date 02/03/2017 Inactive Zithromax Z-Kulwant 250 mg tablet RxNorm: 780863 1 Tablet(s) PO UD No Start Date 05/20/2016 Inactive Fish Oil 1,000 mg capsule RxNorm: 1 Capsule(s) PO BID No Start Date 11/04/2016 Inactive Zofran 4 mg tablet RxNorm: 776892 1 Tablet(s) PO Q6-8H as needed nausea No Start Date 01/23/2015 Inactive Crestor 10 mg tablet RxNorm: 254156 1 Tablet(s) PO daily No Start Date 03/20/2015 Inactive Medication Administered Medication Codes Instructions Start Date Status Kenalog 40 mg/mL suspension for injection RxNorm: 5907012 1Milliliter 11/30/2017 No longer Active Kenalog 40 mg/mL suspension for injection RxNorm: 6659526 1Milliliter 05/28/2017 No longer Active ceftriaxone 500 mg solution for injection RxNorm: 0314288 1 05/28/2017 No longer Active Kenalog 40 mg/mL suspension for injection RxNorm: 5916257 Milliliter 03/26/2016 No longer Active Kenalog 40 mg/mL suspension for injection RxNorm: 8768282 Milliliter 06/07/2015 No longer Active Kenalog 40 mg/mL suspension for injection RxNorm: 2169991 1Milliliter 12/07/2014 No longer Active Immunizations Vaccine [...] Item Item Code Result Date CHEM 14 [id number] AST TNP:Lab Request 01/27/2017 CHEM 14 [id number] ALT TNP:Lab Request 01/27/2017 CHEM 14 [id number] BUN TNP:Lab Request 01/27/2017 CHEM 14 [id number] ALBUMIN TNP:Lab Request 01/27/2017 CHEM 14 [id number] CHLORIDE TNP:Lab Request 01/27/2017 CHEM 14 [id number] Bili Total TNP:Lab Request 01/27/2017 CHEM 14 [id number] ALK PHOS TNP:Lab Request 01/27/2017 CHEM 14 [id number] SODIUM TNP:Lab Request 01/27/2017 CHEM 14 [id number] CREATININE TNP:Lab Request 01/27/2017 CHEM 14 [id number] CALCIUM TNP:Lab Request 01/27/2017 CHEM 14 [id number] POTASSIUM TNP:Lab Request 01/27/2017 CHEM 14 [id number] TOTAL PROTEIN TNP:Lab Request 01/27/2017 CHEM 14 [id number] GLUCOSE TNP:Lab Request 01/27/2017 CHEM 14 [id number] Bicarbonate TNP:Lab Request 01/27/2017 CHEM 14 [id number] AGAP TNP:Lab Request 01/27/2017 AMYLASE [id number] Amylase Lvl TNP:Lab Request 01/27/2017 LIPID GRP [id number] CHOLESTEROL 273 mg/dL 2016 LIPID GRP Triglyceride 583 mg/dL 2016 LIPID GRP HDL CHOLESTEROL 48 mg/dL 2016 LIPID GRP Chol/HDL Ratio 5.69 ratio 2016 LIPID GRP NON-HDL Chol 225 mg/dL 2016 LIPID GRP LDL Cholesterol N/A Trig >400 2016 A1C HPLC 1758097 Hgb A1c 41477-7 7.3 % 2016 TSH [id number] TSH 1.340 uIU/mL 2016 FREE T4 4438022 T4 Free 1.60 ng/dL 2016 MEAN GLUC 9215460 Calc Mean Gluc 163 mg/dL 2016 GFR CALC 6716695 GFR Non Afr Amr >60 mL/min 2016 GFR CALC 8612668 GFR Afr Amr >60 mL/min 2016 CBC 9596847 WBC 8.1 10e9/L 2016 CBC 9664188 RBC 4.41 10e12/L 2016 CBC 7852329 HEMOGLOBIN 13.2 g/dL 2016 CBC 1663509 HEMATOCRIT 39.6 % 2016 CBC 7504728 MCV 89.8 fL 2016 CBC 3241189 MCH 29.9 pg 2016 CBC 7486625 MCHC 33.3 g/dL 2016 CBC 7130551 PLATELET COUNT 298 10e9/L 2016 CBC 2405947 Mean Plt Volume 10.5 fL 2016 CBC 1673278 Neut Auto 61.3 % 2016 CBC 6513661 Lymph Auto 26.3 % 2016 CBC 7188089 [place] Auto 7.7 % 2016 CBC 2472569 RDW 13.6 % 2016 CBC 0110588 Eos Auto 4.2 % 2016 CBC 8573996 Baso Auto 0.5 % 2016 CBC 3788185 Neutrophil Abs 4.97 10e9/L 2016 CBC 9392019 Lymphocyte Abs 2.13 10e9/L 2016 CBC 4359199 Monocyte Abs 0.62 10e9/L 2016 CBC 4726922 Eosinophil Abs 0.34 10e9/L 2016 CBC 8919310 Basophil Abs 0.04 10e9/L 2016 CBC 8224133 RDW-SD 44.1 fL 2016 CHEM 14 1075110 AST 19 U/L 2016 CHEM 14 6392756 ALT 26 U/L 2016 CHEM 14 9591898 BUN 20 mg/dL 2016 CHEM 14 7230271 ALBUMIN 4.1 g/dL 2016 CHEM 14 1518224 CHLORIDE 99 mmol/L 2016 CHEM 14 1707283 Bili Total 0.3 mg/dL 2016 CHEM 14 5430476 ALK PHOS 55 U/L 2016 CHEM 14 5808362 SODIUM 135 mmol/L 2016 CHEM 14 3546753 CREATININE 0.87 mg/dL 2016 CHEM 14 6826167 CALCIUM 9.3 mg/dL 2016 CHEM 14 9876398 POTASSIUM 4.0 mmol/L 2016 CHEM 14 5216252 TOTAL PROTEIN 7.0 g/dL 2016 CHEM 14 1353676 GLUCOSE 149 mg/dL 2016 CHEM 14 0648940 Bicarbonate 26 mmol/L 2016 CHEM 14 3236135 AGAP 10 mmol/L 2016 Review of Systems [...] 4: J0696 05/28/2017 THER/PROPH/DIAG INJ SC/IM CPT-4: 14922 05/19/2017 KETOROLAC TROMETHAMINE INJ CPT-4: J1885 05/19/2017 TRIAMCINOLONE ACET INJ NOS CPT-4: J3301 03/26/2016 TRIAMCINOLONE ACET INJ NOS CPT-4: J3301 06/07/2015 THER/PROPH/DIAG INJ SC/IM CPT-4: 73253 12/07/2014 TRIAMCINOLONE ACET INJ NOS CPT-4: J3301 12/07/2014 Vital Signs Date Vital 12/21/2017 Blood Pressure 1: 154/78 Code: 8480-6 BMI: 33.5 Code: 73911-7 Heart Rate 1: 93 bpm Height: 5'7" SpO2: 96% Weight: 214 lbs 11/30/2017 Blood Pressure 1: 148/88 Code: 8480-6 BMI: 33.5 Code: 78364-1 Heart Rate 1: 80 bpm Height: 5'7" SpO2: 97% Temperature: 36.9 (C) / 98.5 (F) Weight: 214 lbs 05/28/2017 Blood Pressure 1: 128/70 Code: 8480-6 BMI: 31.3 Code: 11125-4 Heart Rate 1: 103 bpm Height: 5'7" SpO2: 98% Temperature: 36.7 (C) / 98.1 (F) Weight: 200 lbs 05/19/2017 Blood Pressure 1: 150/72 Code: 8480-6 04/16/2017 Blood Pressure 1: 146/88 Code: 8480-6 BMI: 31.3 Code: 23793-0 Heart Rate 1: 96 bpm Height: 5'7" SpO2: 94% Temperature: 37.2 (C) / 99.0 (F) Weight: 200 lbs 02/10/2017 Blood Pressure 1: 132/72 Code: 8480-6 BMI: 31.3 Code: 41432-2 Heart Rate 1: 99 bpm Height: 5'7" SpO2: 97% Weight: 200 lbs 02/02/2017 Blood Pressure 1: 140/68 Code: 8480-6 BMI: 31.4 Code: 14828-0 Heart Rate 1: 82 bpm Height: 5'7" SpO2: 97% Weight: 200 lbs 8 oz 01/27/2017 Blood Pressure 1: 142/80 Code: 8480-6 BMI: 32.2 Code: 78946-3 Height: 5'7" Temperature: 37.2 (C) / 98.9 (F) Weight: 205 lbs 8 oz 11/07/2016 Blood Pressure 1: 148/82 Code: 8480-6 BMI: 32.7 Code: 56750-4 Heart Rate 1: 106 bpm Height: 5'7" SpO2: 97% Weight: 209 lbs 03/26/2016 Blood Pressure 1: 140/86 Code: 8480-6 Heart Rate 1: 90 bpm Height: SpO2: 97% Weight: 12/13/2015 Blood Pressure 1: 132/72 Code: 8480-6 BMI: 31.2 Code: 05513-5 Heart Rate 1: 84 bpm Height: 5'7" SpO2: 98% Weight: 199 lbs 08/15/2015 Blood Pressure 1: 138/88 Code: 8480-6 BMI: 32.1 Code: 46868-9 Heart Rate 1: 94 bpm Height: 5'7" SpO2: 97% Weight: 205 lbs 06/13/2015 Blood Pressure 1: 146/78 Code: 8480-6 Blood Pressure 1: 188/88 Code: 8480-6 BMI: 32.6 Code: 47885-5 Heart Rate 1: 97 bpm Height: 5'7" SpO2: 98% Weight: 208 lbs 06/07/2015 Blood Pressure 1: 128/82 Code: 8480-6 BMI: 32.4 Code: 67656-3 Heart Rate 1: 80 bpm Height: 5'7" SpO2: 99% Weight: 207 lbs 03/13/2015 Blood Pressure 1: 124/70 Code: 8480-6 BMI: 31.6 Code: 88654-2 Heart Rate 1: 103 bpm Height: 5'7" Respiratory Rate: 18 bpm SpO2: 97% Temperature: 36.6 (C) / 97.8 (F) Weight: 202 lbs 12/07/2014 Blood Pressure 1: 140/80 Code: 8480-6 BMI: 32.3 Code: 72470-0 Heart Rate 1: 97 bpm Height: 5'7" SpO2: 99% Weight: 206 lbs 09/07/2014 Blood Pressure 1: 132/78 Code: 8480-6 BMI: 31.2 Code: 15508-6 Heart Rate 1: 92 bpm Height: 5'7" [...] with shunt placement- 6-12-15- Dr Ruvalcaba in [place] did surgery headache Onset and Resolution ongoing [...] nonspecific skin eruption[ICD10: R21] Aditi Dunham MD, [facility] CPT-4: 34207 12/21/2017 [id number] EST. PATIENT, LEVEL IV Diagnosis: Other acute sinusitis[ICD10: J01.80] Diagnosis: Other allergic rhinitis[ICD10: J30.89] Diagnosis: Localized edema[ICD10: R60.0] Aditi Dunham MD, [facility] CPT-4: 46443 11/30/2017 ([id number]) 92675 EST. PATIENT, LEVEL III Diagnosis: Acute recurrent maxillary sinusitis[ICD10: J01.01] Diagnosis: Cough[ICD10: R05] Tavia Dunham MD, [facility] CPT-4: 20737 05/28/2017 ([id number]) 45670 EST. PATIENT, LEVEL III Diagnosis: Acute laryngopharyngitis[ICD10: J06.0] Diagnosis: Cough[ICD10: R05] Tavia Dunham MD, [facility] CPT-4: 59004 04/16/2017 59546 EST. PATIENT, LEVEL III Diagnosis: Left lower quadrant pain[ICD10: R10.32] Aditi Dunham MD, [facility] CPT-4: 34393 02/10/2017 ([id number]) 72592 EST. PATIENT, LEVEL III Diagnosis: Pain in thoracic spine[ICD10: M54.6] Diagnosis: Other muscle spasm[ICD10: M62.838] Tavia Dunham MD, [facility] CPT- 4: 37002 02/02/2017 ([id number]) 93129 EST. PATIENT, LEVEL IV Diagnosis: Other acute pancreatitis without necrosis or infection[ICD10: K85.80] Diagnosis: Epigastric pain[ICD10: R10.13] Diagnosis: Type 2 diabetes mellitus without complications[ICD10: E11.9] Tavia Dunham MD, [facility] CPT-4: 11170 01/27/2017 [id number] EST. PATIENT, LEVEL IV Diagnosis: Essential (primary) hypertension[ICD10: I10] Diagnosis: Type 1 diabetes mellitus without complications[ICD10: E10.9] Diagnosis: Other specified hypothyroidism[ICD10: E03.8] Diagnosis: Bilateral primary osteoarthritis of hip[ICD10: M16.0] Diagnosis: Actinic keratosis[ICD10: L57.0] Adtii Dunham MD, [facility] CPT-4: 56621 11/07/2016 99312 EST. PATIENT, LEVEL III Diagnosis: Other acute sinusitis[ICD10: J01.80] Diagnosis: Other allergic rhinitis[ICD10: J30.89] Diagnosis: Cough[ICD10: R05] Aditi Dunham MD, [facility] CPT-4: 14292 03/26/2016 ([id number]) 44995 EST. PATIENT, LEVEL IV Diagnosis: Essential (primary) hypertension[ICD10: I10] Diagnosis: Pure hyperglyceridemia[ICD10: E78.1] Tavia Dunham MD, [facility] CPT- 4: 92112 12/13/2015 ([id number]) 87950 EST. PATIENT, LEVEL III Diagnosis: Essential (primary) hypertension[ICD10: I10] Diagnosis: (Idiopathic) normal pressure hydrocephalus[ICD10: G91.2] Tavia Dunham MD, [facility] CPT-4: 06729 08/15/2015 14500 EST. PATIENT, LEVEL III Diagnosis: Other acute nonsuppurative otitis media, right ear[ICD10: H65.191] Diagnosis: Acute upper respiratory infection, unspecified[ICD10: J06.9] Aditi Dunham MD, [facility] CPT-4: 00539 06/13/2015 ([id number]) 47293 EST. PATIENT, LEVEL III Diagnosis: Acute recurrent maxillary sinusitis[ICD10: J01.01] Diagnosis: Allergic rhinitis due to pollen[ICD10: J30.1] Kaylan Dunham MD, [facility] CPT-4: 37348 06/07/2015 ([id number]) 31858 EST. PATIENT, LEVEL IV Diagnosis: (Idiopathic) normal pressure hydrocephalus[ICD10: G91.2] Diagnosis: Essential (primary) hypertension[ICD10: I10] Diagnosis: Dizziness and giddiness[ICD10: R42] Diagnosis: Nausea with vomiting, unspecified[ICD10: R11.2] Kaylan Dunham MD, [facility] CPT-4: 59736 03/13/2015 04011 EST. PATIENT, LEVEL III Diagnosis: Acute sinusitis, unspecified[ICD10: J01.90] Diagnosis: Allergic rhinitis, unspecified[ICD10: J30.9] Tavia Dunham MD, [facility] CPT-4: 01099 12/07/2014 ([id number]) 82079 EST. PATIENT, LEVEL IV Diagnosis: ESSENTIAL HYPERTENSION[ICD9: 401.9] Diagnosis: DIABETES TYPE II[ICD9: 250.00] Diagnosis: NPH (normal pressure hydrocephalus)[ICD9: 331.5] Diagnosis: Hypertriglyceridemia[ICD9: 272.1] Kaylan Dunham MD, [facility] CPT- 4: 14429 09/07/2014 ([id number]) OFFICE/OUTPATIENT VISIT NEW Diagnosis: DIABETES TYPE II[ICD9: 250.00] Diagnosis: ESSENTIAL HYPERTENSION[ICD9: 401.9] Diagnosis: NPH (normal pressure hydrocephalus)[ICD9: 331.5] Diagnosis: Abnormal gait[ICD9: 781.2] Diagnosis: VITAMIN D DEFICIENCY[ICD9: 268.9] [facility] CPT- 4: 07748 08/07/2014 Plan of Care Planned Activity Notes [...] in pain, worsening redness, warmth, discharge. 12/21/2017 Patient Education: Patient Medication Summary Completed 12/21/2017 Appointment: Tavia Dunham WPtel: [facility] [place] (15 min) Moderate 12/02/2017 Visit Plan: Sinusitis [...] peripheral edema. 11/30/2017 Appointment: Aditi Hamilton WPtel: [facility] [place] [place] (15 min) Moderate 11/30/2017 Patient Education: Patient Medication Summary Completed 11/30/2017 Care Plan: Comp Metabolic Pending 11/30/2017 Care Plan: Cbc With Differential Pending 11/30/2017 Care Plan: %Hba1C LOINC : 30633-6 Pending 11/30/2017 Care Plan: Lipid Pending 11/30/2017 Care Plan: Tsh Pending 11/30/2017 Care Plan: Free T4 Pending 11/30/2017 [phone] [place] (15 min) Moderate 11/26/2017 Appointment: Kaylan Melendez WPtel: [phone] [phone] [place] (30 min) Complex 08/13/2017 Appointment: Tavia Dunham WPtel: [phone] [facility] [place] (15 min) Moderate 08/04/2017 Appointment: Tavia Dunham [id number] [place] ([facility] min) Moderate 07/20/2017 Visit Plan: [...] today 05/28/2017 Appointment: [id number] [place] ([facility] min) Complex 05/28/2017 [...] pharmacy. 04/16/2017 Appointment: [id number] ([facility] min) Moderate 04/16/2017 Patient Education: [...] concerns. 02/10/2017 Appointment: Aditi Hamilton WPtel: [phone] [facility] (15 min) Moderate 02/10/2017 Patient Education: Patient Medication Summary Completed 02/10/2017 Patient Education: Obesity Completed 02/10/2017 Visit Plan: Pain in Thoracic spine with muscle spasm - ibuprofen 600mg three times daily x 3 days, rx for cyclobenzaprine. 02/02/2017 App[facility]ment: [phone] [id number] ([facility] min) Moderate 02/02/2017 Patient [...] today. 01/27/2017 App[facility]ment: [phone] ([facility] min) Moderate 01/27/2017 Patient [...] symptoms. 11/07/2016 [id number] ([facility] min) Complex 11/07/2016 Patient Education: Patient [...] allergy spray. 03/26/2016 Appointment: Aditi Hamilton WPtel: [phone] [facility] (30 min) Complex 03/26/2016 Patient Education: [...] medications. 12/13/2015 Appointment: [phone] ([facility] min) Moderate 12/13/2015 Patient [...] on supplement. 08/07/2014 Appointment: Tavia Dunham WPtel: [address] [place], [place] [id number] [place] (S) New Patient 08/07/2014 Patient Education: [...]
--- OUTSIDE RECORDS SUMMARY | 2018-10-08 11:58 | XMS REPORT | CCD ---
Author Author [facility] Organization [facility] Address [address] [place] [address] Phone Care Team Providers Care Wet End Supervisor Name Role Phone PP Unavailable CCM Unavailable Summary Purpose Interface Exchange Insurance Providers Payer name Policy type / Coverage type Covered libertarian ID Effective Begin Date Effective End Date Blue Cross [place] Blue [place] [id number] Unknown Family history Mother Diagnosis Age At Onset Cancer Unknown Arthritis Unknown Depression Unknown Hyperlipidemia Unknown Diabetes mellitus Type 2 Unknown Social History Social History Element Codes Description Effective Dates Marital status Unknown [place] 08/07/2014 Number of children Unknown 0 08/07/2014 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 [employer] 08/07/[address]: 578608963 Never smoker 08/07/[address]: 952899735 Never drinks alcohol 08/07/2014 Allergies, Adverse Reactions, [...] 100 unit/mL (3 mL) subcutaneous pen RxNorm: 092952 INJECT 2O UNITS SUBCUTANEOUSLY TWICE DAILY 12/21/2017 No Stop Date Active cyclobenzaprine 5 mg tablet RxNorm: 788705 1 Tablet(s) PO TID as needed 12/21/2017 12/25/2017 Active doxycycline hyclate 100 mg capsule RxNorm: 9115317 1 Capsule(s) PO BID 12/21/2017 12/30/2017 Active venlafaxine ER 150 mg capsule,extended release 24 hr RxNorm: 054475 TAKE 1 CAPSULE BY MOUTH ONCE DAILY 12/10/2017 No Stop Date Active Singulair 10 mg tablet RxNorm: 885668 1 Tablet(s) PO daily 12/03/2017 01/01/2018 Active Zithromax Z-Kulwant 250 mg tablet RxNorm: 192793 1 Tablet(s) PO UD 12/03/2017 No Stop Date Active z pack as directed Singulair 10 mg tablet RxNorm: 424708 1 Tablet(s) PO daily 12/03/2017 12/02/2017 Inactive Kenalog 40 mg/mL suspension for injection RxNorm: 2604393 1 Milliliter(s) Inj 11/30/2017 11/30/2017 Inactive prednisone 20 mg tablet RxNorm: 143404 2 Tablet(s) PO daily 11/30/2017 12/04/2017 Inactive Augmentin 875 mg-125 mg tablet RxNorm: 023413 1 Tablet(s) PO BID 11/27/2017 11/26/2017 Inactive Augmentin 875 mg-125 mg tablet RxNorm: 597175 1 Tablet(s) PO BID 11/27/2017 12/03/2017 Inactive Zorvolex 35 mg capsule RxNorm: 5380066 1 Capsule(s) PO TID as needed 11/09/2017 04/07/2018 Active hydrochlorothiazide 25 mg tablet RxNorm: 596357 1 Tablet(s) PO daily 10/22/2017 02/18/2018 Active enalapril maleate 5 mg tablet RxNorm: 228201 1 Tablet(s) PO daily TAKE ONE TABLET BY MOUTH ONCE DAILY 08/21/2017 02/16/2018 Active Levemir FlexTouch U-100 Insulin 100 unit/mL (3 mL) subcutaneous pen RxNorm: 543481 20 Unit(s) SQ BID 07/30/2017 12/20/2017 Inactive levothyroxine 125 mcg tablet RxNorm: 334861 TAKE ONE TABLET BY MOUTH ONCE DAILY 06/29/2017 No Stop Date Active venlafaxine ER 150 mg capsule,extended release 24 hr RxNorm: 419041 1 Capsule(s) PO daily TAKE ONE CAPSULE BY MOUTH ONCE DAILY 06/08/2017 12/04/2017 Inactive prednisone 20 mg tablet RxNorm: 776322 1 Tablet(s) PO daily 06/02/2017 06/06/2017 Inactive prednisone 20 mg tablet RxNorm: 956753 1 Tablet(s) PO daily 06/01/2017 06/05/2017 Inactive Kenalog 40 mg/mL suspension for injection RxNorm: 0605599 1 Milliliter(s) Inj 05/28/2017 05/28/2017 Inactive cefdinir 300 mg capsule RxNorm: 076099 1 Capsule(s) PO BID 05/28/2017 06/03/2017 Inactive ceftriaxone 500 mg solution for injection RxNorm: 0749313 1 Inj 05/28/2017 05/28/2017 Inactive prednisone 20 mg tablet RxNorm: 303187 1 Tablet(s) PO daily 05/28/2017 05/31/2017 Inactive Keflex 500 mg capsule RxNorm: 964687 1 Capsule(s) PO TID 05/26/2017 06/01/2017 Inactive Keflex 500 mg capsule RxNorm: 599366 1 Capsule(s) PO TID 05/26/2017 05/25/2017 Inactive hydrocodone 10 mg-chlorpheniramine 8 mg/5 mL oral susp extend.rel 12hr RxNorm: 1835054 5-10 Milliliter(s) PO TID as needed 04/16/2017 No Stop Date Active Tussionex Pennkinetic ER 10 mg-8 mg/5 mL suspension,extended release RxNorm: 8980337 5 Milliliter(s) PO BID 04/16/2017 04/27/2017 Inactive Zithromax Z-Kulwant 250 mg tablet RxNorm: 160193 1 Tablet(s) PO UD 03/25/2017 04/15/2017 Inactive z pack as directed enalapril maleate 5 mg tablet RxNorm: 379112 TAKE ONE TABLET BY MOUTH ONCE DAILY 02/26/2017 08/20/2017 Inactive Levemir FlexTouch 100 unit/mL (3 mL) subcutaneous insulin pen RxNorm: 875548 20 Unit(s) SQ BID 02/10/2017 07/11/2017 Inactive Zorvolex 35 mg capsule RxNorm: 2569037 1 Capsule(s) PO TID as needed 02/10/2017 11/08/2017 Inactive valacyclovir 1 gram tablet RxNorm: 511817 1 Tablet(s) PO TID 02/10/2017 02/16/2017 Inactive Levemir FlexTouch 100 unit/mL (3 mL) subcutaneous insulin pen RxNorm: 141980 20 Unit(s) SQ BID 02/04/2017 02/09/2017 Inactive cyclobenzaprine 5 mg tablet RxNorm: 489296 1 Tablet(s) PO qhs x 3 nights and TID as needed muscle spasms 02/02/2017 No Stop Date Active levothyroxine 125 mcg tablet RxNorm: 753803 TAKE ONE TABLET BY MOUTH ONCE DAILY 12/08/2016 06/05/2017 Inactive venlafaxine ER 150 mg capsule,extended release 24 hr RxNorm: 911302 TAKE ONE CAPSULE BY MOUTH ONCE DAILY 12/01/2016 05/29/2017 Inactive Zorvolex 35 mg capsule RxNorm: 3646227 1 Capsule(s) PO TID as needed do not take meloxicam at the same time 11/07/2016 No Stop Date Active enalapril maleate 5 mg tablet RxNorm: 383567 TAKE ONE TABLET BY MOUTH ONCE DAILY 10/31/2016 12/29/2016 Inactive meloxicam 15 mg tablet RxNorm: 411711 TAKE ONE TABLET BY MOUTH ONCE DAILY 10/30/2016 04/27/2017 Inactive meloxicam 15 mg tablet RxNorm: 437500 TAKE ONE TABLET BY MOUTH ONCE DAILY 10/24/2016 10/29/2016 Inactive enalapril maleate 5 mg tablet RxNorm: 181429 TAKE ONE TABLET BY MOUTH ONCE DAILY 10/24/2016 10/30/2016 Inactive venlafaxine ER 150 mg capsule,extended release 24 hr RxNorm: 179478 TAKE ONE CAPSULE BY MOUTH ONCE DAILY 06/16/2016 11/12/2016 Inactive meloxicam 15 mg tablet RxNorm: 604007 TAKE ONE TABLET BY MOUTH ONCE DAILY 06/09/2016 10/06/2016 Inactive enalapril maleate 5 mg tablet RxNorm: 751773 TAKE ONE TABLET BY MOUTH ONCE DAILY 06/02/2016 09/29/2016 Inactive Zithromax Z-Kulwant 250 mg tablet RxNorm: 195496 1 Tablet(s) PO UD 05/21/2016 06/15/2016 Inactive levothyroxine 125 mcg tablet RxNorm: 725613 Tablet(s) TAKE ONE TABLET BY MOUTH ONCE DAILY 04/15/2016 10/11/2016 Inactive Levaquin 500 mg tablet RxNorm: 673228 1 Tablet(s) PO daily 04/03/2016 04/09/2016 Inactive Levaquin 500 mg tablet RxNorm: 568892 1 Tablet(s) PO daily 04/03/2016 04/02/2016 Inactive prednisone 20 mg tablet RxNorm: 964344 2 Tablet(s) PO daily 03/28/2016 04/01/2016 Inactive Zithromax Z-Kulwant 250 mg tablet RxNorm: 677062 1 Tablet(s) PO UD 03/26/2016 03/30/2016 Inactive raymond Kenalog 40 mg/mL suspension for injection RxNorm: 5571619 Milliliter(s) Inj 03/26/2016 03/26/2016 Inactive Zofran ODT 4 mg disintegrating tablet RxNorm: 955633 DISSOLVE ONE TABLET IN MOUTH EVERY 6 HOURS NEEDED 02/22/2016 02/29/2016 Inactive venlafaxine ER 150 mg capsule,extended release 24 hr RxNorm: 317151 TAKE ONE CAPSULE BY MOUTH ONCE DAILY 02/18/2016 06/15/2016 Inactive meloxicam 15 mg tablet RxNorm: 441134 TAKE ONE TABLET BY MOUTH ONCE DAILY 02/04/2016 06/02/2016 Inactive aspirin 81 mg chewable tablet RxNorm: 528889 1 Tablet(s) PO daily 12/13/2015 12/06/2016 Inactive biotin 2,500 mcg tablet RxNorm: 756288 1 Tablet(s) PO daily 12/13/2015 09/07/2016 Inactive hydrochlorothiazide 25 mg tablet RxNorm: 841643 1 Tablet(s) PO daily 12/13/2015 04/10/2016 Inactive enalapril maleate 5 mg tablet RxNorm: 477442 TAKE ONE TABLET BY MOUTH ONCE DAILY 11/22/2015 05/19/2016 Inactive venlafaxine ER 150 mg capsule,extended release 24 hr RxNorm: 969592 TAKE ONE CAPSULE BY MOUTH ONCE DAILY 11/14/2015 02/11/2016 Inactive levothyroxine 125 mcg tablet RxNorm: 503552 Tablet(s) TAKE ONE TABLET BY MOUTH ONCE DAILY 11/06/2015 04/14/2016 Inactive levothyroxine 125 mcg tablet RxNorm: 509670 Tablet(s) TAKE ONE TABLET BY MOUTH ONCE DAILY 08/06/2015 11/03/2015 Inactive meclizine 25 mg tablet RxNorm: 919501 1/2-1 Tablet(s) PO Q6 as needed 07/16/2015 No Stop Date Active Flonase Allergy Relief 50 mcg/actuation nasal spray,suspension RxNorm: 1 [place] NASAL daily 06/13/2015 No Stop Date Active prednisone 20 mg tablet RxNorm: 746394 2 Tablet(s) PO daily 06/13/2015 06/17/2015 Inactive Augmentin 875 mg-125 mg tablet RxNorm: 938788 1 Tablet(s) PO BID 06/13/2015 06/19/2015 Inactive Zithromax Z-Kulwant 250 mg tablet RxNorm: 450810 1 Tablet(s) PO UD 06/07/2015 06/11/2015 Inactive zpack Kenalog 40 mg/mL suspension for injection RxNorm: 6291803 Milliliter(s) Inj 06/07/2015 06/07/2015 Inactive venlafaxine ER 150 mg capsule,extended release 24 hr RxNorm: 062712 TAKE ONE CAPSULE BY MOUTH ONCE DAILY 05/14/2015 11/09/2015 Inactive Augmentin 500 mg-125 mg tablet RxNorm: 309509 1 Tablet(s) PO TID 04/25/2015 05/04/2015 Inactive Augmentin 500 mg-125 mg tablet RxNorm: 095975 1 Tablet(s) PO TID 04/25/2015 04/24/2015 Inactive pravastatin 10 mg tablet RxNorm: 388152 1 Tablet(s) PO daily take with coenzyme q 10 daily 03/21/2015 07/18/2015 Inactive DC crestor pravastatin 10 mg tablet RxNorm: 839247 1 Tablet(s) PO daily take with coenzyme q 10 daily 03/21/2015 03/20/2015 Inactive DC crestor Zofran ODT 4 mg disintegrating tablet RxNorm: 455083 1 Tablet(s) PO Q6 PRN 03/13/2015 02/21/2016 Inactive levothyroxine 125 mcg tablet RxNorm: 248047 TAKE ONE TABLET BY MOUTH ONCE DAILY 02/13/2015 08/05/2015 Inactive meloxicam 15 mg tablet RxNorm: 370866 1 Tablet(s) PO daily 01/28/2015 01/22/2016 Inactive Zofran 4 mg tablet RxNorm: 480389 1 Tablet(s) PO Q6-8H as needed nausea 01/24/2015 No Stop Date Active Trulicity 1.5 mg/0.5 mL subcutaneous pen injector RxNorm: 9628396 0.75mg Milliliter(s) SQ QW 01/10/2015 No Stop Date Active venlafaxine ER 150 mg capsule,extended release 24 hr RxNorm: 161235 1 Capsule(s) PO daily 01/10/2015 05/09/2015 Inactive enalapril maleate 5 mg tablet RxNorm: 542754 1 Tablet(s) PO daily 01/04/2015 07/02/2015 Inactive amoxicillin 500 mg tablet RxNorm: 156576 1 Tablet(s) PO BID 12/07/2014 12/06/2014 Inactive Probiotic & Acidophilus 300 million cell-250 mg capsule RxNorm: 1 Capsule(s) PO BID 12/07/2014 12/16/2014 Inactive amoxicillin 500 mg tablet RxNorm: 070239 1 Tablet(s) PO BID 12/07/2014 12/16/2014 Inactive Kenalog 40 mg/mL suspension for injection RxNorm: 7604219 1 Milliliter(s) Inj 12/07/2014 12/07/2014 Inactive meloxicam 15 mg tablet RxNorm: 629660 1 Tablet(s) PO daily 10/24/2014 10/23/2014 Inactive meloxicam 15 mg tablet RxNorm: 373052 1 Tablet(s) PO daily 10/24/2014 01/27/2015 Inactive azithromycin 500 mg tablet RxNorm: 822885 1 Tablet(s) PO daily 10/11/2014 10/15/2014 Inactive azithromycin 500 mg tablet RxNorm: 357377 1 Tablet(s) PO daily 10/11/2014 10/10/2014 Inactive levothyroxine 125 mcg tablet RxNorm: 690800 1 Tablet(s) PO daily 10/06/2014 02/02/2015 Inactive enalapril maleate 5 mg tablet RxNorm: 021373 1 Tablet(s) PO daily 08/29/2014 12/26/2014 Inactive enalapril maleate 5 mg tablet RxNorm: 133630 1 Tablet(s) PO daily 08/25/2014 08/28/2014 Inactive Medroxy oral RxNorm: 7008663 oral No Start Date Active Vitamin D3 5,000 unit tablet RxNorm: 713839 1 Tablet(s) PO daily No Start Date Active fluconazole 200 mg tablet RxNorm: 488743 Tablet(s) PO No Start Date Active estradiol 2 mg tablet RxNorm: 957975 1 Tablet(s) PO daily No Start Date Active fenofibrate nanocrystallized 145 mg tablet RxNorm: 548875 1 Tablet(s) PO daily No Start Date Active hydrocodone 5 mg-acetaminophen 325 mg tablet RxNorm: 300867 1-2 Tablet(s) PO Q4-6H as needed No Start Date Active enalapril maleate 5 mg tablet RxNorm: 305902 1 Tablet(s) PO daily No Start Date 08/24/2014 Inactive glimepiride 4 mg tablet RxNorm: 906388 1 Tablet(s) PO daily No Start Date 01/26/2017 Inactive meclizine 25 mg tablet RxNorm: 734350 1/2-1 Tablet(s) PO Q6 as needed No Start Date 07/15/2015 Inactive Trulicity 0.75 mg/0.5 mL subcutaneous pen injector RxNorm: 0306503 0.75mg Milliliter(s) SQ QW No Start Date 01/09/2015 Inactive metformin 1,000 mg tablet RxNorm: 433139 Tablet(s) PO BID No Start Date 01/26/2017 Inactive venlafaxine ER 150 mg capsule,extended release 24 hr RxNorm: 742285 1 Capsule(s) PO daily No Start Date 01/09/2015 Inactive meloxicam 15 mg tablet RxNorm: 709476 1 Tablet(s) PO daily No Start Date 10/23/2014 Inactive levothyroxine 125 mcg tablet RxNorm: 398869 1 Tablet(s) PO daily No Start Date 10/05/2014 Inactive Levemir FlexTouch 100 unit/mL (3 mL) subcutaneous insulin pen RxNorm: 650055 15 Unit(s) SQ daily No Start Date 02/03/2017 Inactive Zithromax Z-Kulwant 250 mg tablet RxNorm: 538838 1 Tablet(s) PO UD No Start Date 05/20/2016 Inactive Fish Oil 1,000 mg capsule RxNorm: 1 Capsule(s) PO BID No Start Date 11/04/2016 Inactive Zofran 4 mg tablet RxNorm: 993529 1 Tablet(s) PO Q6-8H as needed nausea No Start Date 01/23/2015 Inactive Crestor 10 mg tablet RxNorm: 805635 1 Tablet(s) PO daily No Start Date 03/20/2015 Inactive Medication Administered Medication Codes Instructions Start Date Status Kenalog 40 mg/mL suspension for injection RxNorm: 1839679 1Milliliter 11/30/2017 No longer Active Kenalog 40 mg/mL suspension for injection RxNorm: 4049849 1Milliliter 05/28/2017 No longer Active ceftriaxone 500 mg solution for injection RxNorm: 5209566 1 05/28/2017 No longer Active Kenalog 40 mg/mL suspension for injection RxNorm: 7102982 Milliliter 03/26/2016 No longer Active Kenalog 40 mg/mL suspension for injection RxNorm: 1307915 Milliliter 06/07/2015 No longer Active Kenalog 40 mg/mL suspension for injection RxNorm: 7555501 1Milliliter 12/07/2014 No longer Active Immunizations Vaccine [...] Item Item Code Result Date CHEM 14 [id number] AST TNP:Lab Request 01/27/2017 CHEM 14 [id number] ALT TNP:Lab Request 01/27/2017 CHEM 14 [id number] BUN TNP:Lab Request 01/27/2017 CHEM 14 [id number] ALBUMIN TNP:Lab Request 01/27/2017 CHEM 14 [id number] CHLORIDE TNP:Lab Request 01/27/2017 CHEM 14 [id number] Bili Total TNP:Lab Request 01/27/2017 CHEM 14 [id number] ALK PHOS TNP:Lab Request 01/27/2017 CHEM 14 [id number] SODIUM TNP:Lab Request 01/27/2017 CHEM 14 [id number] CREATININE TNP:Lab Request 01/27/2017 CHEM 14 [id number] CALCIUM TNP:Lab Request 01/27/2017 CHEM 14 [id number] POTASSIUM TNP:Lab Request 01/27/2017 CHEM 14 [id number] TOTAL PROTEIN TNP:Lab Request 01/27/2017 CHEM 14 [id number] GLUCOSE TNP:Lab Request 01/27/2017 CHEM 14 [id number] Bicarbonate TNP:Lab Request 01/27/2017 CHEM 14 [id number] AGAP TNP:Lab Request 01/27/2017 AMYLASE [id number] Amylase Lvl TNP:Lab Request 01/27/2017 LIPID GRP [id number] CHOLESTEROL 273 mg/dL 2016 LIPID GRP Triglyceride 583 mg/dL 2016 LIPID GRP HDL CHOLESTEROL 48 mg/dL 2016 LIPID GRP Chol/HDL Ratio 5.69 ratio 2016 LIPID GRP NON-HDL Chol 225 mg/dL 2016 LIPID GRP LDL Cholesterol N/A Trig >400 2016 A1C HPLC 7599153 Hgb A1c 83767-4 7.3 % 2016 TSH 4559889 TSH 1.340 uIU/mL 2016 FREE T4 5357296 T4 Free 1.60 ng/dL 2016 MEAN GLUC 7632242 Calc Mean Gluc 163 mg/dL 2016 GFR CALC 7769416 GFR Non Afr Amr >60 mL/min 2016 GFR CALC 4370719 GFR Afr Amr >60 mL/min 2016 CBC 8571947 WBC 8.1 10e9/L 2016 CBC 3299106 RBC 4.41 10e12/L 2016 CBC 3341337 HEMOGLOBIN 13.2 g/dL 2016 CBC 3763116 HEMATOCRIT 39.6 % 2016 CBC 4955712 MCV 89.8 fL 2016 CBC 0330042 MCH 29.9 pg 2016 CBC 4696846 MCHC 33.3 g/dL 2016 CBC 9152373 PLATELET COUNT 298 10e9/L 2016 CBC 5100222 Mean Plt Volume 10.5 fL 2016 CBC 1222171 Neut Auto 61.3 % 2016 CBC 7715805 Lymph Auto 26.3 % 2016 CBC 4629966 Divide Auto 7.7 % 2016 CBC 1922631 RDW 13.6 % 2016 CBC 7914984 Eos Auto 4.2 % 2016 CBC 6121059 Baso Auto 0.5 % 2016 CBC 2540441 Neutrophil Abs 4.97 10e9/L 2016 CBC 2575514 Lymphocyte Abs 2.13 10e9/L 2016 CBC 6255544 Monocyte Abs 0.62 10e9/L 2016 CBC 6995275 Eosinophil Abs 0.34 10e9/L 2016 CBC 9605944 Basophil Abs 0.04 10e9/L 2016 CBC 6926349 RDW-SD 44.1 fL 2016 CHEM 14 8357028 AST 19 U/L 2016 CHEM 14 0853102 ALT 26 U/L 2016 CHEM 14 0426788 BUN 20 mg/dL 2016 CHEM 14 5580048 ALBUMIN 4.1 g/dL 2016 CHEM 14 8949865 CHLORIDE 99 mmol/L 2016 CHEM 14 2558000 Bili Total 0.3 mg/dL 2016 CHEM 14 1309225 ALK PHOS 55 U/L 2016 CHEM 14 1703930 SODIUM 135 mmol/L 2016 CHEM 14 3931041 CREATININE 0.87 mg/dL 2016 CHEM 14 4596999 CALCIUM 9.3 mg/dL 2016 CHEM 14 4029098 POTASSIUM 4.0 mmol/L 2016 CHEM 14 8837597 TOTAL PROTEIN 7.0 g/dL 2016 CHEM 14 9538681 GLUCOSE 149 mg/dL 2016 CHEM 14 9745819 Bicarbonate 26 mmol/L 2016 CHEM 14 7951182 AGAP 10 mmol/L 2016 Review of Systems [...] 4: J0696 05/28/2017 THER/PROPH/DIAG INJ SC/IM CPT-4: 20689 05/19/2017 KETOROLAC TROMETHAMINE INJ CPT-4: J1885 05/19/2017 TRIAMCINOLONE ACET INJ NOS CPT-4: J3301 03/26/2016 TRIAMCINOLONE ACET INJ NOS CPT-4: J3301 06/07/2015 THER/PROPH/DIAG INJ SC/IM CPT-4: 98894 12/07/2014 TRIAMCINOLONE ACET INJ NOS CPT-4: J3301 12/07/2014 Vital Signs Date Vital 12/21/2017 Blood Pressure 1: 154/78 Code: 8480-6 BMI: 33.5 Code: 06869-4 Heart Rate 1: 93 bpm Height: 5'7" SpO2: 96% Weight: 214 lbs 11/30/2017 Blood Pressure 1: 148/88 Code: 8480-6 BMI: 33.5 Code: 77582-8 Heart Rate 1: 80 bpm Height: 5'7" SpO2: 97% Temperature: 36.9 (C) / 98.5 (F) Weight: 214 lbs 05/28/2017 Blood Pressure 1: 128/70 Code: 8480-6 BMI: 31.3 Code: 79584-6 Heart Rate 1: 103 bpm Height: 5'7" SpO2: 98% Temperature: 36.7 (C) / 98.1 (F) Weight: 200 lbs 05/19/2017 Blood Pressure 1: 150/72 Code: 8480-6 04/16/2017 Blood Pressure 1: 146/88 Code: 8480-6 BMI: 31.3 Code: 81689-8 Heart Rate 1: 96 bpm Height: 5'7" SpO2: 94% Temperature: 37.2 (C) / 99.0 (F) Weight: 200 lbs 02/10/2017 Blood Pressure 1: 132/72 Code: 8480-6 BMI: 31.3 Code: 77930-4 Heart Rate 1: 99 bpm Height: 5'7" SpO2: 97% Weight: 200 lbs 02/02/2017 Blood Pressure 1: 140/68 Code: 8480-6 BMI: 31.4 Code: 36895-6 Heart Rate 1: 82 bpm Height: 5'7" SpO2: 97% Weight: 200 lbs 8 oz 01/27/2017 Blood Pressure 1: 142/80 Code: 8480-6 BMI: 32.2 Code: 98001-0 Height: 5'7" Temperature: 37.2 (C) / 98.9 (F) Weight: 205 lbs 8 oz 11/07/2016 Blood Pressure 1: 148/82 Code: 8480-6 BMI: 32.7 Code: 62844-3 Heart Rate 1: 106 bpm Height: 5'7" SpO2: 97% Weight: 209 lbs 03/26/2016 Blood Pressure 1: 140/86 Code: 8480-6 Heart Rate 1: 90 bpm Height: SpO2: 97% Weight: 12/13/2015 Blood Pressure 1: 132/72 Code: 8480-6 BMI: 31.2 Code: 30893-9 Heart Rate 1: 84 bpm Height: 5'7" SpO2: 98% Weight: 199 lbs 08/15/2015 Blood Pressure 1: 138/88 Code: 8480-6 BMI: 32.1 Code: 87856-4 Heart Rate 1: 94 bpm Height: 5'7" SpO2: 97% Weight: 205 lbs 06/13/2015 Blood Pressure 1: 146/78 Code: 8480-6 Blood Pressure 1: 188/88 Code: 8480-6 BMI: 32.6 Code: 42820-0 Heart Rate 1: 97 bpm Height: 5'7" SpO2: 98% Weight: 208 lbs 06/07/2015 Blood Pressure 1: 128/82 Code: 8480-6 BMI: 32.4 Code: 96685-1 Heart Rate 1: 80 bpm Height: 5'7" SpO2: 99% Weight: 207 lbs 03/13/2015 Blood Pressure 1: 124/70 Code: 8480-6 BMI: 31.6 Code: 50496-6 Heart Rate 1: 103 bpm Height: 5'7" Respiratory Rate: 18 bpm SpO2: 97% Temperature: 36.6 (C) / 97.8 (F) Weight: 202 lbs 12/07/2014 Blood Pressure 1: 140/80 Code: 8480-6 BMI: 32.3 Code: 60556-6 Heart Rate 1: 97 bpm Height: 5'7" SpO2: 99% Weight: 206 lbs 09/07/2014 Blood Pressure 1: 132/78 Code: 8480-6 BMI: 31.2 Code: 10921-0 Heart Rate 1: 92 bpm Height: 5'7" [...] with shunt placement- 6-12-15- Dr Ruvalcaba in [place] did surgery headache Onset and Resolution ongoing [...] Aditi Dunham MD, [facility] CPT-4: 73204 12/21/2017 [id number] EST. PATIENT, LEVEL IV Diagnosis: Other acute sinusitis[ICD10: J01.80] Diagnosis: Other allergic rhinitis[ICD10: J30.89] Diagnosis: Localized edema[ICD10: R60.0] Aditi Dunham MD, [facility] CPT-4: 92307 11/30/2017 ([id number]) 92608 EST. PATIENT, LEVEL III Diagnosis: Acute recurrent maxillary sinusitis[ICD10: J01.01] Diagnosis: Cough[ICD10: R05] Tavia Dunham MD, [facility] CPT-4: 08956 05/28/2017 ([id number]) 85299 EST. PATIENT, LEVEL III Diagnosis: Acute laryngopharyngitis[ICD10: J06.0] Diagnosis: Cough[ICD10: R05] Tavia Dunham MD, [facility] CPT-4: 14826 04/16/2017 27545 EST. PATIENT, LEVEL III Diagnosis: Left lower quadrant pain[ICD10: R10.32] Aditi Dunham MD, [facility] CPT-4: 19776 02/10/2017 ([id number]) 58764 EST. PATIENT, LEVEL III Diagnosis: Pain in thoracic spine[ICD10: M54.6] Diagnosis: Other muscle spasm[ICD10: M62.838] Tavia Dunham MD, [facility] CPT- 4: 10633 02/02/2017 ([id number]) 26609 EST. PATIENT, LEVEL IV Diagnosis: Other acute pancreatitis without necrosis or infection[ICD10: K85.80] Diagnosis: Epigastric pain[ICD10: R10.13] Diagnosis: Type 2 diabetes mellitus without complications[ICD10: E11.9] Tavia Dunham MD, [facility] CPT-4: 57642 01/27/2017 [id number] EST. PATIENT, LEVEL IV Diagnosis: Essential (primary) hypertension[ICD10: I10] Diagnosis: Type 1 diabetes mellitus without complications[ICD10: E10.9] Diagnosis: Other specified hypothyroidism[ICD10: E03.8] Diagnosis: Bilateral primary osteoarthritis of hip[ICD10: M16.0] Diagnosis: Actinic keratosis[ICD10: L57.0] Aditi Dunham MD, [facility] CPT-4: 62503 11/07/2016 04913 EST. PATIENT, LEVEL III Diagnosis: Other acute sinusitis[ICD10: J01.80] Diagnosis: Other allergic rhinitis[ICD10: J30.89] Diagnosis: Cough[ICD10: R05] Aditi Dunham MD, [facility] CPT-4: 45544 03/26/2016 ([id number]) 40429 EST. PATIENT, LEVEL IV Diagnosis: Essential (primary) hypertension[ICD10: I10] Diagnosis: Pure hyperglyceridemia[ICD10: E78.1] Tavia Dunham MD, [facility] CPT- 4: 87595 12/13/2015 ([id number]) 25783 EST. PATIENT, LEVEL III Diagnosis: Essential (primary) hypertension[ICD10: I10] Diagnosis: (Idiopathic) normal pressure hydrocephalus[ICD10: G91.2] Tavia Dunham MD, [facility] CPT-4: 36705 08/15/2015 92757 EST. PATIENT, LEVEL III Diagnosis: Other acute nonsuppurative otitis media, right ear[ICD10: H65.191] Diagnosis: Acute upper respiratory infection, unspecified[ICD10: J06.9] Aditi Dunham MD, [facility] CPT-4: 93264 06/13/2015 ([id number]) 05315 EST. PATIENT, LEVEL III Diagnosis: Acute recurrent maxillary sinusitis[ICD10: J01.01] Diagnosis: Allergic rhinitis due to pollen[ICD10: J30.1] Kaylan Dunham MD, [facility] CPT-4: 04956 06/07/2015 ([id number]) 11290 EST. PATIENT, LEVEL IV Diagnosis: (Idiopathic) normal pressure hydrocephalus[ICD10: G91.2] Diagnosis: Essential (primary) hypertension[ICD10: I10] Diagnosis: Dizziness and giddiness[ICD10: R42] Diagnosis: Nausea with vomiting, unspecified[ICD10: R11.2] Kaylan Dunham MD, [facility] CPT-4: 50981 03/13/2015 01472 EST. PATIENT, LEVEL III Diagnosis: Acute sinusitis, unspecified[ICD10: J01.90] Diagnosis: Allergic rhinitis, unspecified[ICD10: J30.9] Tavia Dunham MD, [facility] CPT-4: 99857 12/07/2014 ([id number]) 82629 EST. PATIENT, LEVEL IV Diagnosis: ESSENTIAL HYPERTENSION[ICD9: 401.9] Diagnosis: DIABETES TYPE II[ICD9: 250.00] Diagnosis: NPH (normal pressure hydrocephalus)[ICD9: 331.5] Diagnosis: Hypertriglyceridemia[ICD9: 272.1] Kaylan Dunham MD, [facility] CPT- 4: 01139 09/07/2014 ([id number]) OFFICE/OUTPATIENT VISIT NEW Diagnosis: DIABETES TYPE II[ICD9: 250.00] Diagnosis: ESSENTIAL HYPERTENSION[ICD9: 401.9] Diagnosis: NPH (normal pressure hydrocephalus)[ICD9: 331.5] Diagnosis: Abnormal gait[ICD9: 781.2] Diagnosis: VITAMIN D DEFICIENCY[ICD9: 268.9] [facility] CPT- 4: 28701 08/07/2014 Plan of Care Planned Activity Notes [...] Tavia Dunham WPtel: [facility] (15 min) Moderate 12/02/2017 Visit Plan: [...] edema. 11/30/2017 Appointment: Aditi Hamilton WPtel: [facility] [place] (15 min) Moderate 11/30/2017 Patient Education: Patient Medication Summary Completed 11/30/2017 Care Plan: Comp Metabolic Pending 11/30/2017 Care Plan: Cbc With Differential Pending 11/30/2017 Care Plan: %Hba1C LOINC : 39359-0 Pending 11/30/2017 Care Plan: Lipid Pending 11/30/2017 Care Plan: Tsh Pending 11/30/2017 Care Plan: Free T4 Pending 11/30/2017 Appointment: [facility] Dunham [phone] [place] [place] [place] (15 min) Moderate 11/26/2017 Appointment: Kaylan Melendez WPtel: [phone] [phone] [place] (30 min) Complex 08/13/2017 Appointment: Tavia Dunham WPtel: [phone] [facility] [place] (15 min) Moderate 08/04/2017 Appointment: Tavia Dunham [facility]el[phone] [place] [place] [place] (15 min) Moderate 07/20/2017 Visit Plan: [...] today 05/28/2017 Appointment: [phone] [id number] [place] (30 min) Complex 05/28/2017 Patient Education: [...] pharmacy. 04/16/2017 Appointment: Tavia Dunham [facility]el[phone] [place] [id number] (15 min) Moderate 04/16/2017 Patient Education: Patient [...] concerns. 02/10/2017 Appointment: Aditi Hamilton WPtel: [phone] [id number] (15 min) Moderate 02/10/2017 Patient Education: Patient Medication Summary Completed 02/10/2017 Patient Education: Obesity Completed 02/10/2017 Visit Plan: Pain in Thoracic spine with muscle spasm - ibuprofen 600mg three times daily x 3 days, rx for cyclobenzaprine. 02/02/2017 Appointment: Tavia Dunham [facility]Ptel[phone] [place] [id number] (15 min) Moderate 02/02/2017 Patient Education: Patient [...] today. 01/27/2017 Appointment: Tavia Dunham [facility]Ptel[phone] [place] [id number] (15 min) Moderate 01/27/2017 Patient Education: Patient [...] symptoms. 11/07/2016 [facility]ment: [id number] ([facility] min) Complex 11/07/2016 Patient Education: [...] spray. 03/26/2016 Appointment: Aditi Hamilton WPtel: [phone] [id number] (30 min) Complex 03/26/2016 Patient Education: Patient [...] medications. 12/13/2015 Appointment: Tavia Dunham [facility]Ptel[phone] [place] [id number] (15 min) Moderate 12/13/2015 Patient Education: Patient [...] on supplement. 08/07/2014 Appointment: Tavia Dunham WPtel: [address] [place], [place] [id number] [place] ([place]) New Patient 08/07/2014 Patient Education: [...]
--- OUTSIDE RECORDS SUMMARY | 2018-10-08 12:00 | XMS REPORT | CCD ---
Author Author [facility] Organization [facility] Address [address] [place] [address] Phone Care Team Providers Care Physician Recruiter Name Role Phone PP Unavailable CCM Unavailable Summary Purpose Interface Exchange Insurance Providers Payer name Policy type / Coverage type Covered republican ID Effective Begin Date Effective End Date Blue Cross Blue [facility] Blue Cross/Blue [facility] [id number] 2016 Unknown Family history Mother Diagnosis Age At Onset Cancer Unknown Arthritis Unknown Depression Unknown Hyperlipidemia Unknown Diabetes mellitus Type 2 Unknown Social History Social History Element Codes Description Effective Dates Marital status Unknown [place] 08/07/2014 Number of children Unknown 0 08/07/2014 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 08/07/[address]: 542275413 Never smoker 08/07/[address]: 928001902 Never drinks alcohol 08/07/2014 Allergies, Adverse Reactions, [...] Fill Instructions hydrochlorothiazide 25 mg tablet RxNorm: 564140 1 Tablet(s) PO daily 10/22/2017 02/18/2018 Active enalapril maleate 5 mg tablet RxNorm: 712753 1 Tablet(s) PO daily TAKE ONE TABLET BY MOUTH ONCE DAILY 08/21/2017 02/16/2018 Active Levemir FlexTouch U-100 Insulin 100 unit/mL (3 mL) subcutaneous pen RxNorm: 924519 20 Unit(s) SQ BID 07/30/2017 12/28/2017 Active levothyroxine 125 mcg tablet RxNorm: 105047 TAKE ONE TABLET BY MOUTH ONCE DAILY 06/29/2017 No Stop Date Active venlafaxine ER 150 mg capsule,extended release 24 hr RxNorm: 313561 1 Capsule(s) PO daily TAKE ONE CAPSULE BY MOUTH ONCE DAILY 06/08/2017 12/04/2017 Active prednisone 20 mg tablet RxNorm: 740705 1 Tablet(s) PO daily 06/02/2017 06/06/2017 Inactive prednisone 20 mg tablet RxNorm: 186933 1 Tablet(s) PO daily 06/01/2017 06/05/2017 Inactive Kenalog 40 mg/mL suspension for injection RxNorm: 6416432 1 Milliliter(s) Inj 05/28/2017 05/28/2017 Inactive cefdinir 300 mg capsule RxNorm: 949314 1 Capsule(s) PO BID 05/28/2017 06/03/2017 Inactive ceftriaxone 500 mg solution for injection RxNorm: 8420508 1 Inj 05/28/2017 05/28/2017 Inactive prednisone 20 mg tablet RxNorm: 166161 1 Tablet(s) PO daily 05/28/2017 05/31/2017 Inactive Keflex 500 mg capsule RxNorm: 210832 1 Capsule(s) PO TID 05/26/2017 06/01/2017 Inactive Keflex 500 mg capsule RxNorm: 638090 1 Capsule(s) PO TID 05/26/2017 05/25/2017 Inactive hydrocodone 10 mg-chlorpheniramine 8 mg/5 mL oral susp extend.rel 12hr RxNorm: 5262422 5-10 Milliliter(s) PO TID as needed 04/16/2017 No Stop Date Active Tussionex Pennkinetic ER 10 mg-8 mg/5 mL suspension,extended release RxNorm: 8138154 5 Milliliter(s) PO BID 04/16/2017 04/27/2017 Inactive Zithromax Z-Kulwant 250 mg tablet RxNorm: 983230 1 Tablet(s) PO UD 03/25/2017 04/15/2017 Inactive z pack as directed enalapril maleate 5 mg tablet RxNorm: 943068 TAKE ONE TABLET BY MOUTH ONCE DAILY 02/26/2017 08/20/2017 Inactive Zorvolex 35 mg capsule RxNorm: 4079556 1 Capsule(s) PO TID as needed 02/10/2017 No Stop Date Active Levemir FlexTouch 100 unit/mL (3 mL) subcutaneous insulin pen RxNorm: 747152 20 Unit(s) SQ BID 02/10/2017 07/11/2017 Inactive valacyclovir 1 gram tablet RxNorm: 448447 1 Tablet(s) PO TID 02/10/2017 02/16/2017 Inactive Levemir FlexTouch 100 unit/mL (3 mL) subcutaneous insulin pen RxNorm: 265421 20 Unit(s) SQ BID 02/04/2017 02/09/2017 Inactive cyclobenzaprine 5 mg tablet RxNorm: 345712 1 Tablet(s) PO qhs x 3 nights and TID as needed muscle spasms 02/02/2017 No Stop Date Active levothyroxine 125 mcg tablet RxNorm: 794508 TAKE ONE TABLET BY MOUTH ONCE DAILY 12/08/2016 06/05/2017 Inactive venlafaxine ER 150 mg capsule,extended release 24 hr RxNorm: 373030 TAKE ONE CAPSULE BY MOUTH ONCE DAILY 12/01/2016 05/29/2017 Inactive Zorvolex 35 mg capsule RxNorm: 2066539 1 Capsule(s) PO TID as needed do not take meloxicam at the same time 11/07/2016 No Stop Date Active enalapril maleate 5 mg tablet RxNorm: 574821 TAKE ONE TABLET BY MOUTH ONCE DAILY 10/31/2016 12/29/2016 Inactive meloxicam 15 mg tablet RxNorm: 095611 TAKE ONE TABLET BY MOUTH ONCE DAILY 10/30/2016 04/27/2017 Inactive meloxicam 15 mg tablet RxNorm: 105625 TAKE ONE TABLET BY MOUTH ONCE DAILY 10/24/2016 10/29/2016 Inactive enalapril maleate 5 mg tablet RxNorm: 619585 TAKE ONE TABLET BY MOUTH ONCE DAILY 10/24/2016 10/30/2016 Inactive venlafaxine ER 150 mg capsule,extended release 24 hr RxNorm: 054774 TAKE ONE CAPSULE BY MOUTH ONCE DAILY 06/16/2016 11/12/2016 Inactive meloxicam 15 mg tablet RxNorm: 520930 TAKE ONE TABLET BY MOUTH ONCE DAILY 06/09/2016 10/06/2016 Inactive enalapril maleate 5 mg tablet RxNorm: 183086 TAKE ONE TABLET BY MOUTH ONCE DAILY 06/02/2016 09/29/2016 Inactive Zithromax Z-Kulwant 250 mg tablet RxNorm: 656855 1 Tablet(s) PO UD 05/21/2016 06/15/2016 Inactive levothyroxine 125 mcg tablet RxNorm: 258719 Tablet(s) TAKE ONE TABLET BY MOUTH ONCE DAILY 04/15/2016 10/11/2016 Inactive Levaquin 500 mg tablet RxNorm: 968549 1 Tablet(s) PO daily 04/03/2016 04/09/2016 Inactive Levaquin 500 mg tablet RxNorm: 469841 1 Tablet(s) PO daily 04/03/2016 04/02/2016 Inactive prednisone 20 mg tablet RxNorm: 005209 2 Tablet(s) PO daily 03/28/2016 04/01/2016 Inactive Zithromax Z-Kulwant 250 mg tablet RxNorm: 566003 1 Tablet(s) PO UD 03/26/2016 03/30/2016 Inactive zpack Kenalog 40 mg/mL suspension for injection RxNorm: 9456700 Milliliter(s) Inj 03/26/2016 03/26/2016 Inactive Zofran ODT 4 mg disintegrating tablet RxNorm: 198608 DISSOLVE ONE TABLET IN MOUTH EVERY 6 HOURS NEEDED 02/22/2016 02/29/2016 Inactive venlafaxine ER 150 mg capsule,extended release 24 hr RxNorm: 306638 TAKE ONE CAPSULE BY MOUTH ONCE DAILY 02/18/2016 06/15/2016 Inactive meloxicam 15 mg tablet RxNorm: 077373 TAKE ONE TABLET BY MOUTH ONCE DAILY 02/04/2016 06/02/2016 Inactive aspirin 81 mg chewable tablet RxNorm: 108734 1 Tablet(s) PO daily 12/13/2015 12/06/2016 Inactive biotin 2,500 mcg tablet RxNorm: 951478 1 Tablet(s) PO daily 12/13/2015 09/07/2016 Inactive hydrochlorothiazide 25 mg tablet RxNorm: 126385 1 Tablet(s) PO daily 12/13/2015 04/10/2016 Inactive enalapril maleate 5 mg tablet RxNorm: 855414 TAKE ONE TABLET BY MOUTH ONCE DAILY 11/22/2015 05/19/2016 Inactive venlafaxine ER 150 mg capsule,extended release 24 hr RxNorm: 852241 TAKE ONE CAPSULE BY MOUTH ONCE DAILY 11/14/2015 02/11/2016 Inactive levothyroxine 125 mcg tablet RxNorm: 445563 Tablet(s) TAKE ONE TABLET BY MOUTH ONCE DAILY 11/06/2015 04/14/2016 Inactive levothyroxine 125 mcg tablet RxNorm: 047314 Tablet(s) TAKE ONE TABLET BY MOUTH ONCE DAILY 08/06/2015 11/03/2015 Inactive meclizine 25 mg tablet RxNorm: 803953 1/2-1 Tablet(s) PO Q6 as needed 07/16/2015 No Stop Date Active Flonase Allergy Relief 50 mcg/actuation nasal spray,suspension RxNorm: 1 [place] NASAL daily 06/13/2015 No Stop Date Active prednisone 20 mg tablet RxNorm: 968036 2 Tablet(s) PO daily 06/13/2015 06/17/2015 Inactive Augmentin 875 mg-125 mg tablet RxNorm: 318850 1 Tablet(s) PO BID 06/13/2015 06/19/2015 Inactive Zithromax Z-Kulwant 250 mg tablet RxNorm: 755908 1 Tablet(s) PO UD 06/07/2015 06/11/2015 Inactive zpack Kenalog 40 mg/mL suspension for injection RxNorm: 6820491 Milliliter(s) Inj 06/07/2015 06/07/2015 Inactive venlafaxine ER 150 mg capsule,extended release 24 hr RxNorm: 423388 TAKE ONE CAPSULE BY MOUTH ONCE DAILY 05/14/2015 11/09/2015 Inactive Augmentin 500 mg-125 mg tablet RxNorm: 838659 1 Tablet(s) PO TID 04/25/2015 05/04/2015 Inactive Augmentin 500 mg-125 mg tablet RxNorm: 660562 1 Tablet(s) PO TID 04/25/2015 04/24/2015 Inactive pravastatin 10 mg tablet RxNorm: 507131 1 Tablet(s) PO daily take with coenzyme q 10 daily 03/21/2015 07/18/2015 Inactive DC crestor pravastatin 10 mg tablet RxNorm: 384002 1 Tablet(s) PO daily take with coenzyme q 10 daily 03/21/2015 03/20/2015 Inactive DC crestor Zofran ODT 4 mg disintegrating tablet RxNorm: 951778 1 Tablet(s) PO Q6 PRN 03/13/2015 02/21/2016 Inactive levothyroxine 125 mcg tablet RxNorm: 239009 TAKE ONE TABLET BY MOUTH ONCE DAILY 02/13/2015 08/05/2015 Inactive meloxicam 15 mg tablet RxNorm: 242449 1 Tablet(s) PO daily 01/28/2015 01/22/2016 Inactive Zofran 4 mg tablet RxNorm: 340831 1 Tablet(s) PO Q6-8H as needed nausea 01/24/2015 No Stop Date Active Trulicity 1.5 mg/0.5 mL subcutaneous pen injector RxNorm: 7087306 0.75mg Milliliter(s) SQ QW 01/10/2015 No Stop Date Active venlafaxine ER 150 mg capsule,extended release 24 hr RxNorm: 887637 1 Capsule(s) PO daily 01/10/2015 05/09/2015 Inactive enalapril maleate 5 mg tablet RxNorm: 539006 1 Tablet(s) PO daily 01/04/2015 07/02/2015 Inactive amoxicillin 500 mg tablet RxNorm: 573236 1 Tablet(s) PO BID 12/07/2014 12/06/2014 Inactive Probiotic & Acidophilus 300 million cell-250 mg capsule RxNorm: 1 Capsule(s) PO BID 12/07/2014 12/16/2014 Inactive amoxicillin 500 mg tablet RxNorm: 547333 1 Tablet(s) PO BID 12/07/2014 12/16/2014 Inactive Kenalog 40 mg/mL suspension for injection RxNorm: 5641543 1 Milliliter(s) Inj 12/07/2014 12/07/2014 Inactive meloxicam 15 mg tablet RxNorm: 015432 1 Tablet(s) PO daily 10/24/2014 10/23/2014 Inactive meloxicam 15 mg tablet RxNorm: 168700 1 Tablet(s) PO daily 10/24/2014 01/27/2015 Inactive azithromycin 500 mg tablet RxNorm: 280543 1 Tablet(s) PO daily 10/11/2014 10/15/2014 Inactive azithromycin 500 mg tablet RxNorm: 934655 1 Tablet(s) PO daily 10/11/2014 10/10/2014 Inactive levothyroxine 125 mcg tablet RxNorm: 819244 1 Tablet(s) PO daily 10/06/2014 02/02/2015 Inactive enalapril maleate 5 mg tablet RxNorm: 171712 1 Tablet(s) PO daily 08/29/2014 12/26/2014 Inactive enalapril maleate 5 mg tablet RxNorm: 222672 1 Tablet(s) PO daily 08/25/2014 08/28/2014 Inactive Medroxy oral RxNorm: 9804451 oral No Start Date Active Vitamin D3 5,000 unit tablet RxNorm: 557442 1 Tablet(s) PO daily No Start Date Active fluconazole 200 mg tablet RxNorm: 337375 Tablet(s) PO No Start Date Active estradiol 2 mg tablet RxNorm: 877630 1 Tablet(s) PO daily No Start Date Active fenofibrate nanocrystallized 145 mg tablet RxNorm: 611859 1 Tablet(s) PO daily No Start Date Active hydrocodone 5 mg-acetaminophen 325 mg tablet RxNorm: 665402 1-2 Tablet(s) PO Q4-6H as needed No Start Date Active enalapril maleate 5 mg tablet RxNorm: 678283 1 Tablet(s) PO daily No Start Date 08/24/2014 Inactive glimepiride 4 mg tablet RxNorm: 373571 1 Tablet(s) PO daily No Start Date 01/26/2017 Inactive meclizine 25 mg tablet RxNorm: 119739 1/2-1 Tablet(s) PO Q6 as needed No Start Date 07/15/2015 Inactive Trulicity 0.75 mg/0.5 mL subcutaneous pen injector RxNorm: 3152441 0.75mg Milliliter(s) SQ QW No Start Date 01/09/2015 Inactive metformin 1,000 mg tablet RxNorm: 047930 Tablet(s) PO BID No Start Date 01/26/2017 Inactive venlafaxine ER 150 mg capsule,extended release 24 hr RxNorm: 878800 1 Capsule(s) PO daily No Start Date 01/09/2015 Inactive meloxicam 15 mg tablet RxNorm: 854576 1 Tablet(s) PO daily No Start Date 10/23/2014 Inactive levothyroxine 125 mcg tablet RxNorm: 376749 1 Tablet(s) PO daily No Start Date 10/05/2014 Inactive Levemir FlexTouch 100 unit/mL (3 mL) subcutaneous insulin pen RxNorm: 925086 15 Unit(s) SQ daily No Start Date 02/03/2017 Inactive Zithromax Z-Kulwant 250 mg tablet RxNorm: 208769 1 Tablet(s) PO UD No Start Date 05/20/2016 Inactive Fish Oil 1,000 mg capsule RxNorm: 1 Capsule(s) PO BID No Start Date 11/04/2016 Inactive Zofran 4 mg tablet RxNorm: 668348 1 Tablet(s) PO Q6-8H as needed nausea No Start Date 01/23/2015 Inactive Crestor 10 mg tablet RxNorm: 973360 1 Tablet(s) PO daily No Start Date 03/20/2015 Inactive Medication Administered Medication Codes Instructions Start Date Status Kenalog 40 mg/mL suspension for injection RxNorm: 0485436 1Milliliter 05/28/2017 No longer Active ceftriaxone 500 mg solution for injection RxNorm: 8545642 1 05/28/2017 No longer Active Kenalog 40 mg/mL suspension for injection RxNorm: 8916795 Milliliter 03/26/2016 No longer Active Kenalog 40 mg/mL suspension for injection RxNorm: 4307797 Milliliter 06/07/2015 No longer Active Kenalog 40 mg/mL suspension for injection RxNorm: 4151479 1Milliliter 12/07/2014 No longer Active Immunizations No [...] Item Item Code Result Date CHEM 14 [id number] AST TNP:Lab Request 01/27/2017 CHEM 14 [id number] ALT TNP:Lab Request 01/27/2017 CHEM 14 [id number] BUN TNP:Lab Request 01/27/2017 CHEM 14 [id number] ALBUMIN TNP:Lab Request 01/27/2017 CHEM 14 [id number] CHLORIDE TNP:Lab Request 01/27/2017 CHEM 14 [id number] Bili Total TNP:Lab Request 01/27/2017 CHEM 14 [id number] ALK PHOS TNP:Lab Request 01/27/2017 CHEM 14 [id number] SODIUM TNP:Lab Request 01/27/2017 CHEM 14 [id number] CREATININE TNP:Lab Request 01/27/2017 CHEM 14 [id number] CALCIUM TNP:Lab Request 01/27/2017 CHEM 14 [id number] POTASSIUM TNP:Lab Request 01/27/2017 CHEM 14 [id number] TOTAL PROTEIN TNP:Lab Request 01/27/2017 CHEM 14 [id number] GLUCOSE TNP:Lab Request 01/27/2017 CHEM 14 [id number] Bicarbonate TNP:Lab Request 01/27/2017 CHEM 14 [id number] AGAP TNP:Lab Request 01/27/2017 AMYLASE [id number] Amylase Lvl TNP:Lab Request 01/27/2017 LIPID GRP [id number] CHOLESTEROL 273 mg/dL 2016 LIPID GRP Triglyceride 583 mg/dL 2016 LIPID GRP HDL CHOLESTEROL 48 mg/dL 2016 LIPID GRP Chol/HDL Ratio 5.69 ratio 2016 LIPID GRP NON-HDL Chol 225 mg/dL 2016 LIPID GRP LDL Cholesterol N/A Trig >400 2016 A1C HPLC 8326540 Hgb A1c 22110-0 7.3 % 2016 TSH 0691724 TSH 1.340 uIU/mL 2016 FREE T4 5859057 T4 Free 1.60 ng/dL 2016 MEAN GLUC 6767975 Calc Mean Gluc 163 mg/dL 2016 GFR CALC 2629121 GFR Non Afr Amr >60 mL/min 2016 GFR CALC 6082678 GFR Afr Amr >60 mL/min 2016 CBC 9016215 WBC 8.1 10e9/L 2016 CBC 9042681 RBC 4.41 10e12/L 2016 CBC 1939019 HEMOGLOBIN 13.2 g/dL 2016 CBC 9853039 HEMATOCRIT 39.6 % 2016 CBC 6627775 MCV 89.8 fL 2016 CBC 3804274 MCH 29.9 pg 2016 CBC 9238355 MCHC 33.3 g/dL 2016 CBC 0195016 PLATELET COUNT 298 10e9/L 2016 CBC 6512634 Mean Plt Volume 10.5 fL 2016 CBC 4495907 Neut Auto 61.3 % 2016 CBC 3706615 Lymph Auto 26.3 % 2016 CBC 2778958 [place] Auto 7.7 % 2016 CBC 2892475 Eos Auto 4.2 % 2016 CBC 0355818 RDW 13.6 % 2016 CBC 2420359 Baso Auto 0.5 % 2016 CBC 5496008 Neutrophil Abs 4.97 10e9/L 2016 CBC 6895246 Lymphocyte Abs 2.13 10e9/L 2016 CBC 0962137 Monocyte Abs 0.62 10e9/L 2016 CBC 2424539 Eosinophil Abs 0.34 10e9/L 2016 CBC 1819212 RDW-SD 44.1 fL 2016 CBC 6473047 Basophil Abs 0.04 10e9/L 2016 CHEM 14 9164970 AST 19 U/L 2016 CHEM 14 3297682 ALT 26 U/L 2016 CHEM 14 7605279 BUN 20 mg/dL 2016 CHEM 14 8972206 ALBUMIN 4.1 g/dL 2016 CHEM 14 0373207 CHLORIDE 99 mmol/L 2016 CHEM 14 0712893 Bili Total 0.3 mg/dL 2016 CHEM 14 6810850 ALK PHOS 55 U/L 2016 CHEM 14 2489273 SODIUM 135 mmol/L 2016 CHEM 14 9121383 CREATININE 0.87 mg/dL 2016 CHEM 14 4332952 CALCIUM 9.3 mg/dL 2016 CHEM 14 5539451 POTASSIUM 4.0 mmol/L 2016 CHEM 14 8045924 TOTAL PROTEIN 7.0 g/dL 2016 CHEM 14 6010209 GLUCOSE 149 mg/dL 2016 CHEM 14 0491763 Bicarbonate 26 mmol/L 2016 CHEM 14 4091396 AGAP 10 mmol/L 2016 Review of Systems [...] clear 11/07/2016 None Full Exam - General 1995 [...] 4: J0696 05/28/2017 THER/PROPH/DIAG INJ SC/IM CPT-4: 46757 05/19/2017 KETOROLAC TROMETHAMINE INJ CPT-4: J1885 05/19/2017 TRIAMCINOLONE ACET INJ NOS CPT-4: J3301 03/26/2016 TRIAMCINOLONE ACET INJ NOS CPT-4: J3301 06/07/2015 THER/PROPH/DIAG INJ SC/IM CPT-4: 37890 12/07/2014 TRIAMCINOLONE ACET INJ NOS CPT-4: J3301 12/07/2014 Vital Signs Date Vital 05/28/2017 Blood Pressure 1: 128/70 Code: 8480-6 BMI: 31.3 Code: 23811-1 Heart Rate 1: 103 bpm Height: 5'7" SpO2: 98% Temperature: 36.7 (C) / 98.1 (F) Weight: 200 lbs 05/19/2017 Blood Pressure 1: 150/72 Code: 8480-6 04/16/2017 Blood Pressure 1: 146/88 Code: 8480-6 BMI: 31.3 Code: 80593-7 Heart Rate 1: 96 bpm Height: 5'7" SpO2: 94% Temperature: 37.2 (C) / 99.0 (F) Weight: 200 lbs 02/10/2017 Blood Pressure 1: 132/72 Code: 8480-6 BMI: 31.3 Code: 27101-1 Heart Rate 1: 99 bpm Height: 5'7" SpO2: 97% Weight: 200 lbs 02/02/2017 Blood Pressure 1: 140/68 Code: 8480-6 BMI: 31.4 Code: 98393-4 Heart Rate 1: 82 bpm Height: 5'7" SpO2: 97% Weight: 200 lbs 8 oz 01/27/2017 Blood Pressure 1: 142/80 Code: 8480-6 BMI: 32.2 Code: 34028-1 Height: 5'7" Temperature: 37.2 (C) / 98.9 (F) Weight: 205 lbs 8 oz 11/07/2016 Blood Pressure 1: 148/82 Code: 8480-6 BMI: 32.7 Code: 26462-4 Heart Rate 1: 106 bpm Height: 5'7" SpO2: 97% Weight: 209 lbs 03/26/2016 Blood Pressure 1: 140/86 Code: 8480-6 Heart Rate 1: 90 bpm Height: SpO2: 97% Weight: 12/13/2015 Blood Pressure 1: 132/72 Code: 8480-6 BMI: 31.2 Code: 02092-1 Heart Rate 1: 84 bpm Height: 5'7" SpO2: 98% Weight: 199 lbs 08/15/2015 Blood Pressure 1: 138/88 Code: 8480-6 BMI: 32.1 Code: 21200-2 Heart Rate 1: 94 bpm Height: 5'7" SpO2: 97% Weight: 205 lbs 06/13/2015 Blood Pressure 1: 188/88 Code: 8480-6 Blood Pressure 1: 146/78 Code: 8480-6 BMI: 32.6 Code: 74308-0 Heart Rate 1: 97 bpm Height: 5'7" SpO2: 98% Weight: 208 lbs 06/07/2015 Blood Pressure 1: 128/82 Code: 8480-6 BMI: 32.4 Code: 59335-1 Heart Rate 1: 80 bpm Height: 5'7" SpO2: 99% Weight: 207 lbs 03/13/2015 Blood Pressure 1: 124/70 Code: 8480-6 BMI: 31.6 Code: 98468-3 Heart Rate 1: 103 bpm Height: 5'7" Respiratory Rate: 18 bpm SpO2: 97% Temperature: 36.6 (C) / 97.8 (F) Weight: 202 lbs 12/07/2014 Blood Pressure 1: 140/80 Code: 8480-6 BMI: 32.3 Code: 10409-8 Heart Rate 1: 97 bpm Height: 5'7" SpO2: 99% Weight: 206 lbs 09/07/2014 Blood Pressure 1: 132/78 Code: 8480-6 BMI: 31.2 Code: 92204-7 Heart Rate 1: 92 bpm Height: 5'7" [...] with shunt placement- --- Dr Ruvalcaba in [place] did surgery headache Onset and Resolution ongoing [...] data Encounters Encounter Performer Location Codes Date ([id number]) [id number] EST. PATIENT, LEVEL III Diagnosis: Acute recurrent maxillary sinusitis[ICD10: J01.01] Diagnosis: Cough[ICD10: R05] Tavia Dunham MD, [facility] CPT-4: 38894 05/28/2017 ([id number]) 93194 EST. PATIENT, LEVEL III Diagnosis: Acute laryngopharyngitis[ICD10: J06.0] Diagnosis: Cough[ICD10: R05] Tavia Dunham MD, [facility] CPT-4: 78562 04/16/2017 39806 EST. PATIENT, LEVEL III Diagnosis: Left lower quadrant pain[ICD10: R10.32] Aditi Dunham MD, [facility] CPT-4: 60267 02/10/2017 ([id number]) 42933 EST. PATIENT, LEVEL III Diagnosis: Pain in thoracic spine[ICD10: M54.6] Diagnosis: Other muscle spasm[ICD10: M62.838] Tavia Dunham MD, [facility] CPT- 4: 33602 02/02/2017 ([id number]) 52164 EST. PATIENT, LEVEL IV Diagnosis: Other acute pancreatitis without necrosis or infection[ICD10: K85.80] Diagnosis: Epigastric pain[ICD10: R10.13] Diagnosis: Type 2 diabetes mellitus without complications[ICD10: E11.9] Tavia Dunham MD, [facility] CPT-4: 44056 01/27/2017 [id number] EST. PATIENT, LEVEL IV Diagnosis: Essential (primary) hypertension[ICD10: I10] Diagnosis: Type 1 diabetes mellitus without complications[ICD10: E10.9] Diagnosis: Other specified hypothyroidism[ICD10: E03.8] Diagnosis: Bilateral primary osteoarthritis of hip[ICD10: M16.0] Diagnosis: Actinic keratosis[ICD10: L57.0] Aditi Dunham MD, [facility] CPT-4: 67630 11/07/2016 [id number] EST. PATIENT, LEVEL III Diagnosis: Other acute sinusitis[ICD10: J01.80] Diagnosis: Other allergic rhinitis[ICD10: J30.89] Diagnosis: Cough[ICD10: R05] Aditi Dunham MD, [facility] CPT-4: 46545 03/26/2016 ([id number]) 79504 EST. PATIENT, LEVEL IV Diagnosis: Essential (primary) hypertension[ICD10: I10] Diagnosis: Pure hyperglyceridemia[ICD10: E78.1] Tavia Dunham MD, [facility] CPT- 4: 91017 12/13/2015 ([id number]) 58505 EST. PATIENT, LEVEL III Diagnosis: Essential (primary) hypertension[ICD10: I10] Diagnosis: (Idiopathic) normal pressure hydrocephalus[ICD10: G91.2] Tavia Dunham MD, [facility] CPT-4: 52377 08/15/2015 42122 EST. PATIENT, LEVEL III Diagnosis: Other acute nonsuppurative otitis media, right ear[ICD10: H65.191] Diagnosis: Acute upper respiratory infection, unspecified[ICD10: J06.9] Aditi Dunham MD, [facility] CPT-4: 00777 06/13/2015 ([id number]) 59411 EST. PATIENT, LEVEL III Diagnosis: Acute recurrent maxillary sinusitis[ICD10: J01.01] Diagnosis: Allergic rhinitis due to pollen[ICD10: J30.1] Kaylan Dunham MD, [facility] CPT-4: 39504 06/07/2015 ([id number]) 89526 EST. PATIENT, LEVEL IV Diagnosis: (Idiopathic) normal pressure hydrocephalus[ICD10: G91.2] Diagnosis: Essential (primary) hypertension[ICD10: I10] Diagnosis: Dizziness and giddiness[ICD10: R42] Diagnosis: Nausea with vomiting, unspecified[ICD10: R11.2] Kaylan Dunham MD, [facility] CPT-4: 75634 03/13/2015 89868 EST. PATIENT, LEVEL III Diagnosis: Acute sinusitis, unspecified[ICD10: J01.90] Diagnosis: Allergic rhinitis, unspecified[ICD10: J30.9] [facility] CPT-4: 41152 12/07/2014 ([id number]) 77029 EST. PATIENT, LEVEL IV Diagnosis: ESSENTIAL HYPERTENSION[ICD9: 401.9] Diagnosis: DIABETES TYPE II[ICD9: 250.00] Diagnosis: NPH (normal pressure hydrocephalus)[ICD9: 331.5] Diagnosis: Hypertriglyceridemia[ICD9: 272.1] [facility] CPT- 4: 80527 09/07/2014 ([id number]) OFFICE/OUTPATIENT VISIT NEW Diagnosis: DIABETES TYPE II[ICD9: 250.00] Diagnosis: ESSENTIAL HYPERTENSION[ICD9: 401.9] Diagnosis: NPH (normal pressure hydrocephalus)[ICD9: 331.5] Diagnosis: Abnormal gait[ICD9: 781.2] Diagnosis: VITAMIN D DEFICIENCY[ICD9: 268.9] [facility] CPT- 4: 73739 08/07/2014 Plan of Care Planned Activity Notes Codes Status Date Appointment: Kaylan Melendez WPtel: [phone] [phone] [place] (30 min) Complex 08/13/2017 Appointment: Tavia Dunham WPtel: [facility] [place] (15 min) Moderate 08/04/2017 Appointment: Tavia Dunham WPtel: [facility] (15 min) Moderate 07/20/2017 Visit Plan: Sinusitis [...] shot today 05/28/2017 Appointment: Tavia Dunham WPtel: [facility] [place] (30 min) Complex 05/28/2017 Patient Education: [...] pharmacy. 04/16/2017 Appointment: Tavia Dunham WPtel: [phone] [facility] (15 min) Moderate 04/16/2017 Patient Education: Patient [...] or concerns. 02/10/2017 Appointment: Aditi Hamilton WPtel: [facility] [place] (15 min) Moderate 02/10/2017 Patient Education: Patient Medication Summary Completed 02/10/2017 Patient Education: Obesity Completed 02/10/2017 Visit Plan: Pain in Thoracic spine with muscle spasm - ibuprofen 600mg three times daily x 3 days, rx for cyclobenzaprine. 02/02/2017 Appointment: Tavia Dunham WPtel: [phone] [phone] (15 min) Moderate 02/02/2017 Patient Education: Patient [...] labs today. 01/27/2017 Appointment: Tavia Dunham WPtel: [phone] [facility] (15 min) Moderate 01/27/2017 Patient Education: Patient [...] pain symptoms. 11/07/2016 [facility]ment: [phone] [place] ([place] min) Complex 11/07/2016 Patient Education: Patient [...] spray. 03/26/2016 Appointment: Aditi Hamilton WPtel: [phone] [facility] (30 min) Complex 03/26/2016 Patient Education: [...] medications. 12/13/2015 Appointment: Tavia Dunham WPtel: [phone] [facility] (15 min) Moderate 12/13/2015 Patient Education: Patient [...]
--- OUTSIDE RECORDS SUMMARY | 2018-10-08 12:02 | XMS REPORT | CCD ---
Author Author [facility] Organization [facility] Address [address] [place] [address] Phone Care Team Providers Care Generator Operator Name Role Phone PP Unavailable CCM Unavailable Summary Purpose Interface Exchange Insurance Providers Payer name Policy type / Coverage type Covered libertarian ID Effective Begin Date Effective End Date Blue Cross Blue [facility] Blue Cross/Blue [facility] [id number] Unknown Family history Mother Diagnosis Age At Onset Cancer Unknown Arthritis Unknown Depression Unknown Hyperlipidemia Unknown Diabetes mellitus Type 2 Unknown Social History Social History Element Codes Description Effective Dates Marital status Unknown [place] 08/07/2014 Number of children Unknown 0 08/07/2014 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 08/07/[address]: 097546789 Never smoker 08/07/[address]: 723726099 Never drinks alcohol 08/07/2014 Allergies, Adverse Reactions, Alerts Substance Reaction Codes Entered Date Inactivated Date Status CODEINE emesis RxNorm: 2670 08/07/2014 No Inactive Date Active Past Medical History Illness Codes Condition Status Onset Date Resolved Date Left lower quadrant pain ICD-9: 789.04 ICD-10: [...] ICD-9: 250.00 ICD-10: E10.9 Active 11/07/2016 Unknown Cough ICD-9: 786.2 ICD-10: R05 Active [...] Problems Condition Codes Effective Dates Condition Status Left lower quadrant pain ICD-9: 789.04 ICD-10: [...] complications ICD-9: 250.00 ICD-10: E10.9 11/07/2016 Active Cough ICD-9: 786.2 ICD-10: R05 03/26/2016 [...] Start Date Stop Date Status Fill Instructions Zithromax Z-Kulwant 250 mg tablet RxNorm: 633298 1 Tablet(s) PO UD 03/25/2017 No Stop Date Active z pack as directed enalapril maleate 5 mg tablet RxNorm: 414937 TAKE ONE TABLET BY MOUTH ONCE DAILY 02/26/2017 No Stop Date Active Levemir FlexTouch 100 unit/mL (3 mL) subcutaneous insulin pen RxNorm: 534537 20 Unit(s) SQ BID 02/10/2017 07/11/2017 Active Zorvolex 35 mg capsule RxNorm: 5839557 1 Capsule(s) PO TID as needed 02/10/2017 No Stop Date Active valacyclovir 1 gram tablet RxNorm: 765126 1 Tablet(s) PO TID 02/10/2017 02/16/2017 Inactive Levemir FlexTouch 100 unit/mL (3 mL) subcutaneous insulin pen RxNorm: 437813 20 Unit(s) SQ BID 02/04/2017 02/09/2017 Inactive cyclobenzaprine 5 mg tablet RxNorm: 711604 1 Tablet(s) PO qhs x 3 nights and TID as needed muscle spasms 02/02/2017 No Stop Date Active levothyroxine 125 mcg tablet RxNorm: 342332 TAKE ONE TABLET BY MOUTH ONCE DAILY 12/08/2016 06/05/2017 Active venlafaxine ER 150 mg capsule,extended release 24 hr RxNorm: 888266 TAKE ONE CAPSULE BY MOUTH ONCE DAILY 12/01/2016 05/29/2017 Active Zorvolex 35 mg capsule RxNorm: 3876351 1 Capsule(s) PO TID as needed do not take meloxicam at the same time 11/07/2016 No Stop Date Active enalapril maleate 5 mg tablet RxNorm: 318652 TAKE ONE TABLET BY MOUTH ONCE DAILY 10/31/2016 12/29/2016 Inactive meloxicam 15 mg tablet RxNorm: 169481 TAKE ONE TABLET BY MOUTH ONCE DAILY 10/30/2016 04/27/2017 Active meloxicam 15 mg tablet RxNorm: 172647 TAKE ONE TABLET BY MOUTH ONCE DAILY 10/24/2016 10/29/2016 Inactive enalapril maleate 5 mg tablet RxNorm: 271987 TAKE ONE TABLET BY MOUTH ONCE DAILY 10/24/2016 10/30/2016 Inactive venlafaxine ER 150 mg capsule,extended release 24 hr RxNorm: 873909 TAKE ONE CAPSULE BY MOUTH ONCE DAILY 06/16/2016 11/12/2016 Inactive meloxicam 15 mg tablet RxNorm: 408718 TAKE ONE TABLET BY MOUTH ONCE DAILY 06/09/2016 10/06/2016 Inactive enalapril maleate 5 mg tablet RxNorm: 744646 TAKE ONE TABLET BY MOUTH ONCE DAILY 06/02/2016 09/29/2016 Inactive Zithromax Z-Kulwant 250 mg tablet RxNorm: 396973 1 Tablet(s) PO UD 05/21/2016 06/15/2016 Inactive levothyroxine 125 mcg tablet RxNorm: 350510 Tablet(s) TAKE ONE TABLET BY MOUTH ONCE DAILY 04/15/2016 10/11/2016 Inactive Levaquin 500 mg tablet RxNorm: 431281 1 Tablet(s) PO daily 04/03/2016 04/09/2016 Inactive Levaquin 500 mg tablet RxNorm: 944202 1 Tablet(s) PO daily 04/03/2016 04/02/2016 Inactive prednisone 20 mg tablet RxNorm: 084639 2 Tablet(s) PO daily 03/28/2016 04/01/2016 Inactive Zithromax Z-Kulwant 250 mg tablet RxNorm: 895814 1 Tablet(s) PO UD 03/26/2016 03/30/2016 Inactive zpack Kenalog 40 mg/mL suspension for injection RxNorm: 8726167 Milliliter(s) Inj 03/26/2016 03/26/2016 Inactive Zofran ODT 4 mg disintegrating tablet RxNorm: 622799 DISSOLVE ONE TABLET IN MOUTH EVERY 6 HOURS NEEDED 02/22/2016 02/29/2016 Inactive venlafaxine ER 150 mg capsule,extended release 24 hr RxNorm: 690254 TAKE ONE CAPSULE BY MOUTH ONCE DAILY 02/18/2016 06/15/2016 Inactive meloxicam 15 mg tablet RxNorm: 177934 TAKE ONE TABLET BY MOUTH ONCE DAILY 02/04/2016 06/02/2016 Inactive aspirin 81 mg chewable tablet RxNorm: 606887 1 Tablet(s) PO daily 12/13/2015 12/06/2016 Inactive biotin 2,500 mcg tablet RxNorm: 684912 1 Tablet(s) PO daily 12/13/2015 09/07/2016 Inactive hydrochlorothiazide 25 mg tablet RxNorm: 252285 1 Tablet(s) PO daily 12/13/2015 04/10/2016 Inactive enalapril maleate 5 mg tablet RxNorm: 428245 TAKE ONE TABLET BY MOUTH ONCE DAILY 11/22/2015 05/19/2016 Inactive venlafaxine ER 150 mg capsule,extended release 24 hr RxNorm: 796847 TAKE ONE CAPSULE BY MOUTH ONCE DAILY 11/14/2015 02/11/2016 Inactive levothyroxine 125 mcg tablet RxNorm: 169388 Tablet(s) TAKE ONE TABLET BY MOUTH ONCE DAILY 11/06/2015 04/14/2016 Inactive levothyroxine 125 mcg tablet RxNorm: 827164 Tablet(s) TAKE ONE TABLET BY MOUTH ONCE DAILY 08/06/2015 11/03/2015 Inactive meclizine 25 mg tablet RxNorm: 980122 1/2-1 Tablet(s) PO Q6 as needed 07/16/2015 No Stop Date Active Flonase Allergy Relief 50 mcg/actuation nasal spray,suspension RxNorm: 1 [place] NASAL daily 06/13/2015 No Stop Date Active prednisone 20 mg tablet RxNorm: 955167 2 Tablet(s) PO daily 06/13/2015 06/17/2015 Inactive Augmentin 875 mg-125 mg tablet RxNorm: 203922 1 Tablet(s) PO BID 06/13/2015 06/19/2015 Inactive Zithromax Z-Kulwant 250 mg tablet RxNorm: 953927 1 Tablet(s) PO UD 06/07/2015 06/11/2015 Inactive zpack Kenalog 40 mg/mL suspension for injection RxNorm: 8050434 Milliliter(s) Inj 06/07/2015 06/07/2015 Inactive venlafaxine ER 150 mg capsule,extended release 24 hr RxNorm: 812827 TAKE ONE CAPSULE BY MOUTH ONCE DAILY 05/14/2015 11/09/2015 Inactive Augmentin 500 mg-125 mg tablet RxNorm: 838417 1 Tablet(s) PO TID 04/25/2015 05/04/2015 Inactive Augmentin 500 mg-125 mg tablet RxNorm: 307864 1 Tablet(s) PO TID 04/25/2015 04/24/2015 Inactive pravastatin 10 mg tablet RxNorm: 054396 1 Tablet(s) PO daily take with coenzyme q 10 daily 03/21/2015 07/18/2015 Inactive DC crestor pravastatin 10 mg tablet RxNorm: 185734 1 Tablet(s) PO daily take with coenzyme q 10 daily 03/21/2015 03/20/2015 Inactive DC crestor Zofran ODT 4 mg disintegrating tablet RxNorm: 187337 1 Tablet(s) PO Q6 PRN 03/13/2015 02/21/2016 Inactive levothyroxine 125 mcg tablet RxNorm: 576700 TAKE ONE TABLET BY MOUTH ONCE DAILY 02/13/2015 08/05/2015 Inactive meloxicam 15 mg tablet RxNorm: 213319 1 Tablet(s) PO daily 01/28/2015 01/22/2016 Inactive Zofran 4 mg tablet RxNorm: 182442 1 Tablet(s) PO Q6-8H as needed nausea 01/24/2015 No Stop Date Active Trulicity 1.5 mg/0.5 mL subcutaneous pen injector RxNorm: 2975714 0.75mg Milliliter(s) SQ QW 01/10/2015 No Stop Date Active venlafaxine ER 150 mg capsule,extended release 24 hr RxNorm: 327771 1 Capsule(s) PO daily 01/10/2015 05/09/2015 Inactive enalapril maleate 5 mg tablet RxNorm: 392376 1 Tablet(s) PO daily 01/04/2015 07/02/2015 Inactive amoxicillin 500 mg tablet RxNorm: 958238 1 Tablet(s) PO BID 12/07/2014 12/06/2014 Inactive Probiotic & Acidophilus 300 million cell-250 mg capsule RxNorm: 1 Capsule(s) PO BID 12/07/2014 12/16/2014 Inactive amoxicillin 500 mg tablet RxNorm: 956418 1 Tablet(s) PO BID 12/07/2014 12/16/2014 Inactive Kenalog 40 mg/mL suspension for injection RxNorm: 6362850 1 Milliliter(s) Inj 12/07/2014 12/07/2014 Inactive meloxicam 15 mg tablet RxNorm: 911775 1 Tablet(s) PO daily 10/24/2014 10/23/2014 Inactive meloxicam 15 mg tablet RxNorm: 033756 1 Tablet(s) PO daily 10/24/2014 01/27/2015 Inactive azithromycin 500 mg tablet RxNorm: 828293 1 Tablet(s) PO daily 10/11/2014 10/15/2014 Inactive azithromycin 500 mg tablet RxNorm: 051616 1 Tablet(s) PO daily 10/11/2014 10/10/2014 Inactive levothyroxine 125 mcg tablet RxNorm: 421282 1 Tablet(s) PO daily 10/06/2014 02/02/2015 Inactive enalapril maleate 5 mg tablet RxNorm: 825356 1 Tablet(s) PO daily 08/29/2014 12/26/2014 Inactive enalapril maleate 5 mg tablet RxNorm: 385023 1 Tablet(s) PO daily 08/25/2014 08/28/2014 Inactive Medroxy oral RxNorm: 0039084 oral No Start Date Active Vitamin D3 5,000 unit tablet RxNorm: 951930 1 Tablet(s) PO daily No Start Date Active fluconazole 200 mg tablet RxNorm: 417040 Tablet(s) PO No Start Date Active estradiol 2 mg tablet RxNorm: 260802 1 Tablet(s) PO daily No Start Date Active fenofibrate nanocrystallized 145 mg tablet RxNorm: 154979 1 Tablet(s) PO daily No Start Date Active hydrocodone 5 mg-acetaminophen 325 mg tablet RxNorm: 659673 1-2 Tablet(s) PO Q4-6H as needed No Start Date Active enalapril maleate 5 mg tablet RxNorm: 922511 1 Tablet(s) PO daily No Start Date 08/24/2014 Inactive glimepiride 4 mg tablet RxNorm: 446173 1 Tablet(s) PO daily No Start Date 01/26/2017 Inactive meclizine 25 mg tablet RxNorm: 883169 1/2-1 Tablet(s) PO Q6 as needed No Start Date 07/15/2015 Inactive Trulicity 0.75 mg/0.5 mL subcutaneous pen injector RxNorm: 5973907 0.75mg Milliliter(s) SQ QW No Start Date 01/09/2015 Inactive metformin 1,000 mg tablet RxNorm: 511938 Tablet(s) PO BID No Start Date 01/26/2017 Inactive venlafaxine ER 150 mg capsule,extended release 24 hr RxNorm: 206313 1 Capsule(s) PO daily No Start Date 01/09/2015 Inactive meloxicam 15 mg tablet RxNorm: 137364 1 Tablet(s) PO daily No Start Date 10/23/2014 Inactive levothyroxine 125 mcg tablet RxNorm: 953818 1 Tablet(s) PO daily No Start Date 10/05/2014 Inactive Levemir FlexTouch 100 unit/mL (3 mL) subcutaneous insulin pen RxNorm: 399307 15 Unit(s) SQ daily No Start Date 02/03/2017 Inactive Zithromax Z-Kulwant 250 mg tablet RxNorm: 626769 1 Tablet(s) PO UD No Start Date 05/20/2016 Inactive Fish Oil 1,000 mg capsule RxNorm: 1 Capsule(s) PO BID No Start Date 11/04/2016 Inactive Zofran 4 mg tablet RxNorm: 904269 1 Tablet(s) PO Q6-8H as needed nausea No Start Date 01/23/2015 Inactive Crestor 10 mg tablet RxNorm: 412592 1 Tablet(s) PO daily No Start Date 03/20/2015 Inactive Medication Administered Medication Codes Instructions Start Date Status Kenalog 40 mg/mL suspension for injection RxNorm: 7291005 Milliliter 03/26/2016 No longer Active Kenalog 40 mg/mL suspension for injection RxNorm: 4745393 Milliliter 06/07/2015 No longer Active Kenalog 40 mg/mL suspension for injection RxNorm: 1264245 1Milliliter 12/07/2014 No longer Active Immunizations No Immunization data Assessments Condition Codes Effective Dates Left lower quadrant pain ICD-10: R10.32 ICD-9: [...] without complications ICD-10: E10.9 ICD-9: 250.00 11/07/2016 Cough ICD-10: R05 ICD-9: 786.2 03/26/2016 Other [...] Visit Reason For Visit Effective Dates Notes flank pain 02/10/2017 back pain 02/02/2017 Hospital Follow Up 01/27/2017 hypertension 11/07/2016 cough 03/26/2016 hypertension 12/13/2015 Hospital Follow Up 08/15/2015 cough 06/13/2015 earache 06/07/2015 hypertension 03/13/2015 with nausea and vomiting headache 12/07/2014 headache 09/07/2014 headache 08/07/2014 Results Observation Observation Code Item Item Code Result Date CHEM 14 [id number] AST TNP:Lab Request 01/27/2017 CHEM 14 [id number] ALT TNP:Lab Request 01/27/2017 CHEM 14 [id number] BUN TNP:Lab Request 01/27/2017 CHEM 14 [id number] ALBUMIN TNP:Lab Request 01/27/2017 CHEM 14 [id number] CHLORIDE TNP:Lab Request 01/27/2017 CHEM 14 [id number] Bili Total TNP:Lab Request 01/27/2017 CHEM 14 [id number] ALK PHOS TNP:Lab Request 01/27/2017 CHEM 14 [id number] SODIUM TNP:Lab Request 01/27/2017 CHEM 14 [id number] CREATININE TNP:Lab Request 01/27/2017 CHEM 14 [id number] CALCIUM TNP:Lab Request 01/27/2017 CHEM 14 [id number] POTASSIUM TNP:Lab Request 01/27/2017 CHEM 14 [id number] TOTAL PROTEIN TNP:Lab Request 01/27/2017 CHEM 14 [id number] GLUCOSE TNP:Lab Request 01/27/2017 CHEM 14 [id number] Bicarbonate TNP:Lab Request 01/27/2017 CHEM 14 [id number] AGAP TNP:Lab Request 01/27/2017 AMYLASE [id number] Amylase Lvl TNP:Lab Request 01/27/2017 LIPID GRP [id number] CHOLESTEROL 273 mg/dL 2016 LIPID GRP Triglyceride 583 mg/dL 2016 LIPID GRP HDL CHOLESTEROL 48 mg/dL 2016 LIPID GRP Chol/HDL Ratio 5.69 ratio 2016 LIPID GRP 8024415 NON-HDL Chol 225 mg/dL 2016 LIPID GRP LDL Cholesterol N/A Trig >400 2016 A1C HPLC 8675807 Hgb A1c 76324-5 7.3 % 2016 TSH 5900522 TSH 1.340 uIU/mL 2016 FREE T4 0781188 T4 Free 1.60 ng/dL 2016 MEAN GLUC 3146477 Calc Mean Gluc 163 mg/dL 2016 GFR CALC 6637321 GFR Non Afr Amr >60 mL/min 2016 GFR CALC 5427380 GFR Afr Amr >60 mL/min 2016 CBC 8742066 WBC 8.1 10e9/L 2016 CBC 9604393 RBC 4.41 10e12/L 2016 CBC 7638260 HEMOGLOBIN 13.2 g/dL 2016 CBC 6888718 HEMATOCRIT 39.6 % 2016 CBC 4834310 MCV 89.8 fL 2016 CBC 1956427 MCH 29.9 pg 2016 CBC 1977595 MCHC 33.3 g/dL 2016 CBC 0439385 PLATELET COUNT 298 10e9/L 2016 CBC 4354357 Mean Plt Volume 10.5 fL 2016 CBC 6610435 Neut Auto 61.3 % 2016 CBC 8507827 Lymph Auto 26.3 % 2016 CBC 6770043 [place] Auto 7.7 % 2016 CBC 6831939 Eos Auto 4.2 % 2016 CBC 6504182 RDW 13.6 % 2016 CBC 2209380 Baso Auto 0.5 % 2016 CBC 3796504 Neutrophil Abs 4.97 10e9/L 2016 CBC 1934729 Lymphocyte Abs 2.13 10e9/L 2016 CBC 9463997 Monocyte Abs 0.62 10e9/L 2016 CBC 0342339 Eosinophil Abs 0.34 10e9/L 2016 CBC 1290118 RDW-SD 44.1 fL 2016 CBC 7414701 Basophil Abs 0.04 10e9/L 2016 CHEM 14 0397186 AST 19 U/L 2016 CHEM 14 0073426 ALT 26 U/L 2016 CHEM 14 [id number] BUN 20 mg/dL 2016 CHEM 14 4309920 ALBUMIN 4.1 g/dL 2016 CHEM 14 2609989 CHLORIDE 99 mmol/L 2016 CHEM 14 7738814 Bili Total 0.3 mg/dL 2016 CHEM 14 5313398 ALK PHOS 55 U/L 2016 CHEM 14 6945837 SODIUM 135 mmol/L 2016 CHEM 14 9097666 CREATININE 0.87 mg/dL 2016 CHEM 14 9180196 CALCIUM 9.3 mg/dL 2016 CHEM 14 5104616 POTASSIUM 4.0 mmol/L 2016 CHEM 14 5555820 TOTAL PROTEIN 7.0 g/dL 2016 CHEM 14 5335318 GLUCOSE 149 mg/dL 2016 CHEM 14 2277723 Bicarbonate 26 mmol/L 2016 CHEM 14 6950000 AGAP 10 mmol/L 2016 Review of Systems System Result Effective Dates Constitutional No recent illness 02/10/2017 Constitutional No [...] Date TRIAMCINOLONE ACET INJ NOS CPT-4: J3301 03/26/2016 TRIAMCINOLONE ACET INJ NOS CPT-4: J3301 06/07/2015 THER/PROPH/DIAG INJ SC/IM CPT-4: 54932 12/07/2014 TRIAMCINOLONE ACET INJ NOS CPT-4: J3301 12/07/2014 Vital Signs Date Vital 02/10/2017 Blood Pressure 1: 132/72 Code: 8480-6 BMI: 31.3 Code: 56385-1 Heart Rate 1: 99 bpm Height: 5'7" SpO2: 97% Weight: 200 lbs 02/02/2017 Blood Pressure 1: 140/68 Code: 8480-6 BMI: 31.4 Code: 70584-3 Heart Rate 1: 82 bpm Height: 5'7" SpO2: 97% Weight: 200 lbs 8 oz 01/27/2017 Blood Pressure 1: 142/80 Code: 8480-6 BMI: 32.2 Code: 67821-0 Height: 5'7" Temperature: 37.2 (C) / 98.9 (F) Weight: 205 lbs 8 oz 11/07/2016 Blood Pressure 1: 148/82 Code: 8480-6 BMI: 32.7 Code: 19834-1 Heart Rate 1: 106 bpm Height: 5'7" SpO2: 97% Weight: 209 lbs 03/26/2016 Blood Pressure 1: 140/86 Code: 8480-6 Heart Rate 1: 90 bpm Height: SpO2: 97% Weight: 12/13/2015 Blood Pressure 1: 132/72 Code: 8480-6 BMI: 31.2 Code: 00157-0 Heart Rate 1: 84 bpm Height: 5'7" SpO2: 98% Weight: 199 lbs 08/15/2015 Blood Pressure 1: 138/88 Code: 8480-6 BMI: 32.1 Code: 35328-1 Heart Rate 1: 94 bpm Height: 5'7" SpO2: 97% Weight: 205 lbs 06/13/2015 Blood Pressure 1: 146/78 Code: 8480-6 Blood Pressure 1: 188/88 Code: 8480-6 BMI: 32.6 Code: 64514-1 Heart Rate 1: 97 bpm Height: 5'7" SpO2: 98% Weight: 208 lbs 06/07/2015 Blood Pressure 1: 128/82 Code: 8480-6 BMI: 32.4 Code: 62128-3 Heart Rate 1: 80 bpm Height: 5'7" SpO2: 99% Weight: 207 lbs 03/13/2015 Blood Pressure 1: 124/70 Code: 8480-6 BMI: 31.6 Code: 10681-8 Heart Rate 1: 103 bpm Height: 5'7" Respiratory Rate: 18 bpm SpO2: 97% Temperature: 36.6 (C) / 97.8 (F) Weight: 202 lbs 12/07/2014 Blood Pressure 1: 140/80 Code: 8480-6 BMI: 32.3 Code: 33611-5 Heart Rate 1: 97 bpm Height: 5'7" SpO2: 99% Weight: 206 lbs 09/07/2014 Blood Pressure 1: 132/78 Code: 8480-6 BMI: 31.2 Code: 41803-1 Heart Rate 1: 92 bpm Height: 5'7" Weight: 199 lbs 08/07/2014 Blood Pressure 1: 140/84 Code: 8480-6 Heart Rate 1: 96 bpm Height: 5'7" Weight: Functional Status No Functional Status data History of Present Illness Symptom Name Status Result Effective Date Notes flank pain Location on the left 02/10/2017 [...] HgbA1c level 7.3 03/13/[address] Zavala headache Location diffusely 12/07/2014 None headache Quality [...] with shunt placement- 08-11-14- Dr Ruvalcaba in [place] did surgery headache Onset and Resolution ongoing [...] data Encounters Encounter Performer Location Codes Date 55069 EST. PATIENT, LEVEL III Diagnosis: Left lower quadrant pain[ICD10: R10.32] Aditi Dunham MD, [facility] CPT-4: 08954 02/10/2017 ([id number]) 32582 EST. PATIENT, LEVEL III Diagnosis: Pain in thoracic spine[ICD10: M54.6] Diagnosis: Other muscle spasm[ICD10: M62.838] Tavia Dunham MD, [facility] CPT- 4: 69618 02/02/2017 ([id number]) 97603 EST. PATIENT, LEVEL IV Diagnosis: Other acute pancreatitis without necrosis or infection[ICD10: K85.80] Diagnosis: Epigastric pain[ICD10: R10.13] Diagnosis: Type 2 diabetes mellitus without complications[ICD10: E11.9] [facility] CPT-4: 18912 01/27/2017 51989 EST. PATIENT, LEVEL IV Diagnosis: Essential (primary) hypertension[ICD10: I10] Diagnosis: Type 1 diabetes mellitus without complications[ICD10: E10.9] Diagnosis: Other specified hypothyroidism[ICD10: E03.8] Diagnosis: Bilateral primary osteoarthritis of hip[ICD10: M16.0] Diagnosis: Actinic keratosis[ICD10: L57.0] [facility] CPT-4: 05754 11/07/2016 [id number] EST. PATIENT, LEVEL III Diagnosis: Other acute sinusitis[ICD10: J01.80] Diagnosis: Other allergic rhinitis[ICD10: J30.89] Diagnosis: Cough[ICD10: R05] Aditi Dunham MD, [facility] CPT-4: 69372 03/26/2016 ([id number]) 23115 EST. PATIENT, LEVEL IV Diagnosis: Essential (primary) hypertension[ICD10: I10] Diagnosis: Pure hyperglyceridemia[ICD10: E78.1] Tavia Dunham MD, [facility] CPT- 4: 58135 12/13/2015 ([id number]) 39786 EST. PATIENT, LEVEL III Diagnosis: Essential (primary) hypertension[ICD10: I10] Diagnosis: (Idiopathic) normal pressure hydrocephalus[ICD10: G91.2] Tavia Dunham MD, [facility] CPT-4: 84183 08/15/2015 [id number] EST. PATIENT, LEVEL III Diagnosis: Other acute nonsuppurative otitis media, right ear[ICD10: H65.191] Diagnosis: Acute upper respiratory infection, unspecified[ICD10: J06.9] Aditi Dunham MD, [facility] CPT-4: 71028 06/13/2015 ([id number]) 53253 EST. PATIENT, LEVEL III Diagnosis: Acute recurrent maxillary sinusitis[ICD10: J01.01] Diagnosis: Allergic rhinitis due to pollen[ICD10: J30.1] Kaylan Dunham MD, [facility] CPT-4: 49090 06/07/2015 ([id number]) 17451 EST. PATIENT, LEVEL IV Diagnosis: (Idiopathic) normal pressure hydrocephalus[ICD10: G91.2] Diagnosis: Essential (primary) hypertension[ICD10: I10] Diagnosis: Dizziness and giddiness[ICD10: R42] Diagnosis: Nausea with vomiting, unspecified[ICD10: R11.2] Kaylan Dunham MD, [facility] CPT-4: 23936 03/13/2015 28211 EST. PATIENT, LEVEL III Diagnosis: Acute sinusitis, unspecified[ICD10: J01.90] Diagnosis: Allergic rhinitis, unspecified[ICD10: J30.9] [facility] CPT-4: 14691 12/07/2014 ([id number]) 95705 EST. PATIENT, LEVEL IV Diagnosis: ESSENTIAL HYPERTENSION[ICD9: 401.9] Diagnosis: DIABETES TYPE II[ICD9: 250.00] Diagnosis: NPH (normal pressure hydrocephalus)[ICD9: 331.5] Diagnosis: Hypertriglyceridemia[ICD9: 272.1] [facility] CPT- 4: 46149 09/07/2014 ([id number]) OFFICE/OUTPATIENT VISIT NEW Diagnosis: DIABETES TYPE II[ICD9: 250.00] Diagnosis: ESSENTIAL HYPERTENSION[ICD9: 401.9] Diagnosis: NPH (normal pressure hydrocephalus)[ICD9: 331.5] Diagnosis: Abnormal gait[ICD9: 781.2] Diagnosis: VITAMIN D DEFICIENCY[ICD9: 268.9] [facility] CPT- 4: 68539 08/07/2014 Plan of Care Planned Activity Notes Codes Status Date Appointment: Aditi Hamilton WPtel: [address] [place], [place] [phone] (15 min) Moderate 02/10/2017 Patient Education: Patient Medication Summary Completed 02/10/2017 Patient Education: Obesity Completed 02/10/2017 Appointment: Tavia Dunham WPtel: [address] [place], [place] [phone] (15 min) Moderate 02/02/2017 Patient Education: Patient Medication Summary Completed 02/02/2017 Patient Education: Obesity Completed 02/02/2017 Appointment: Tavia Dunham WPtel: [address] [place], [place] [phone] (15 min) Moderate 01/27/2017 Patient Education: Patient Medication Summary Completed 01/27/2017 Patient Education: Obesity Completed 01/27/2017 Appointment: Aditi Hamilton WPtel: [address] [place], [place] [phone] (30 min) Complex 11/07/2016 Patient Education: Patient Medication Summary Completed 11/07/2016 Patient Education: Obesity Completed 11/07/2016 Patient Education: Hypertension Completed 11/07/2016 Appointment: Aditi Hamilton [id number] (30 min) Complex 03/26/2016 Patient Education: Patient Medication Summary Completed 03/26/2016 Appointment: Tavia Dunham WPtel: [id number] (15 min) Moderate 12/13/2015 Patient Education: Patient Medication Summary Completed 12/13/2015 Patient Education: Obesity Completed 12/13/2015 Patient Education: Patient Medication Summary Completed 08/15/2015 Patient Education: Obesity Completed 08/15/2015 Patient Education: Patient Medication Summary Completed 06/13/2015 Patient Education: Obesity Completed 06/13/2015 Patient Education: Patient Medication Summary Completed 06/07/2015 Patient Education: Obesity Completed 06/07/2015 Appointment: (30 min) Complex 03/13/2015 Patient Education: Patient Medication Summary Completed 03/13/2015 Patient Education: Hypertension Completed 03/13/2015 Appointment: (15 min) Moderate 12/07/2014 Patient Education: Patient Medication Summary Completed 12/07/2014 Appointment: (15 min) Moderate 09/07/2014 Patient Education: Patient Medication Summary Completed 09/07/2014 Patient Education: Hypertension Completed 09/07/2014 Appointment: Tavia Dunham WPtel: [address] [place], [place] [id number] [place] ([place]) New Patient 08/07/2014 Patient Education: Patient Medication Summary Completed 08/07/2014 Patient Education: Hypertension Completed 08/07/2014 Instructions No Instructions
--- OUTSIDE RECORDS SUMMARY | 2018-10-08 12:05 | XMS REPORT | CCD ---
Author Author [facility] Organization [facility] Address [address] [place] [address] Phone Care Team Providers Care Machinist Supervisor Outside Name Role Phone PP Unavailable CCM Unavailable Summary Purpose Interface Exchange Insurance Providers Payer name Policy type / Coverage type Covered alliance party ID Effective Begin Date Effective End Date Blue Cross Blue [facility] Blue Cross/Blue [facility] [id number] Unknown Family history Mother Diagnosis Age At Onset Cancer Unknown Arthritis Unknown Depression Unknown Hyperlipidemia Unknown Diabetes mellitus Type 2 Unknown Social History Social History Element Codes Description Effective Dates Marital status Unknown Yinka 08/07/2014 Number of children Unknown 0 08/07/2014 Employment 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 [employer] 08/07/[address]: 831861036 Never smoker 08/07/[address]: 643264144 Never drinks alcohol 08/07/2014 Allergies, Adverse Reactions, Alerts Substance Reaction Codes Entered Date Inactivated Date Status CODEINE emesis RxNorm: 2670 08/07/2014 No Inactive Date Active Past Medical History Illness Codes Condition Status Onset Date Resolved Date Acute laryngopharyngitis ICD-9: 465.0 ICD-10: J06.0 Active 04/16/2017 Unknown Cough ICD-9: 786.2 ICD-10: R05 Active 03/26/2016 Unknown Left lower quadrant pain ICD-9: 789.04 [...] Condition Codes Effective Dates Condition Status Acute laryngopharyngitis ICD-9: 465.0 ICD-10: J06.0 04/16/2017 Active Cough ICD-9: 786.2 ICD-10: R05 03/26/2016 Active Left lower quadrant pain ICD-9: 789.04 [...] Start Date Stop Date Status Fill Instructions hydrocodone 10 mg-chlorpheniramine 8 mg/5 mL oral susp extend.rel 12hr RxNorm: 3745676 5-10 Milliliter(s) PO TID as needed 04/16/2017 No Stop Date Active Tussionex Pennkinetic ER 10 mg-8 mg/5 mL suspension,extended release RxNorm: 6404916 5 Milliliter(s) PO BID 04/16/2017 04/27/2017 Active Zithromax Z-Kulwant 250 mg tablet RxNorm: 429640 1 Tablet(s) PO UD 03/25/2017 04/15/2017 Inactive z pack as directed enalapril maleate 5 mg tablet RxNorm: 072696 TAKE ONE TABLET BY MOUTH ONCE DAILY 02/26/2017 No Stop Date Active Levemir FlexTouch 100 unit/mL (3 mL) subcutaneous insulin pen RxNorm: 292070 20 Unit(s) SQ BID 02/10/2017 07/11/2017 Active Zorvolex 35 mg capsule RxNorm: 2044853 1 Capsule(s) PO TID as needed 02/10/2017 No Stop Date Active valacyclovir 1 gram tablet RxNorm: 411678 1 Tablet(s) PO TID 02/10/2017 02/16/2017 Inactive Levemir FlexTouch 100 unit/mL (3 mL) subcutaneous insulin pen RxNorm: 726359 20 Unit(s) SQ BID 02/04/2017 02/09/2017 Inactive cyclobenzaprine 5 mg tablet RxNorm: 247615 1 Tablet(s) PO qhs x 3 nights and TID as needed muscle spasms 02/02/2017 No Stop Date Active levothyroxine 125 mcg tablet RxNorm: 317280 TAKE ONE TABLET BY MOUTH ONCE DAILY 12/08/2016 06/05/2017 Active venlafaxine ER 150 mg capsule,extended release 24 hr RxNorm: 216488 TAKE ONE CAPSULE BY MOUTH ONCE DAILY 12/01/2016 05/29/2017 Active Zorvolex 35 mg capsule RxNorm: 2418803 1 Capsule(s) PO TID as needed do not take meloxicam at the same time 11/07/2016 No Stop Date Active enalapril maleate 5 mg tablet RxNorm: 550432 TAKE ONE TABLET BY MOUTH ONCE DAILY 10/31/2016 12/29/2016 Inactive meloxicam 15 mg tablet RxNorm: 085109 TAKE ONE TABLET BY MOUTH ONCE DAILY 10/30/2016 04/27/2017 Active meloxicam 15 mg tablet RxNorm: 146176 TAKE ONE TABLET BY MOUTH ONCE DAILY 10/24/2016 10/29/2016 Inactive enalapril maleate 5 mg tablet RxNorm: 818454 TAKE ONE TABLET BY MOUTH ONCE DAILY 10/24/2016 10/30/2016 Inactive venlafaxine ER 150 mg capsule,extended release 24 hr RxNorm: 399110 TAKE ONE CAPSULE BY MOUTH ONCE DAILY 06/16/2016 11/12/2016 Inactive meloxicam 15 mg tablet RxNorm: 831780 TAKE ONE TABLET BY MOUTH ONCE DAILY 06/09/2016 10/06/2016 Inactive enalapril maleate 5 mg tablet RxNorm: 521300 TAKE ONE TABLET BY MOUTH ONCE DAILY 06/02/2016 09/29/2016 Inactive Zithromax Z-Kulwant 250 mg tablet RxNorm: 106325 1 Tablet(s) PO UD 05/21/2016 06/15/2016 Inactive levothyroxine 125 mcg tablet RxNorm: 404628 Tablet(s) TAKE ONE TABLET BY MOUTH ONCE DAILY 04/15/2016 10/11/2016 Inactive Levaquin 500 mg tablet RxNorm: 427861 1 Tablet(s) PO daily 04/03/2016 04/09/2016 Inactive Levaquin 500 mg tablet RxNorm: 444112 1 Tablet(s) PO daily 04/03/2016 04/02/2016 Inactive prednisone 20 mg tablet RxNorm: 930898 2 Tablet(s) PO daily 03/28/2016 04/01/2016 Inactive Zithromax Z-Kulwant 250 mg tablet RxNorm: 614304 1 Tablet(s) PO UD 03/26/2016 03/30/2016 Inactive zpack Kenalog 40 mg/mL suspension for injection RxNorm: 4812007 Milliliter(s) Inj 03/26/2016 03/26/2016 Inactive Zofran ODT 4 mg disintegrating tablet RxNorm: 472561 DISSOLVE ONE TABLET IN MOUTH EVERY 6 HOURS NEEDED 02/22/2016 02/29/2016 Inactive venlafaxine ER 150 mg capsule,extended release 24 hr RxNorm: 164505 TAKE ONE CAPSULE BY MOUTH ONCE DAILY 02/18/2016 06/15/2016 Inactive meloxicam 15 mg tablet RxNorm: 388753 TAKE ONE TABLET BY MOUTH ONCE DAILY 02/04/2016 06/02/2016 Inactive aspirin 81 mg chewable tablet RxNorm: 314751 1 Tablet(s) PO daily 12/13/2015 12/06/2016 Inactive biotin 2,500 mcg tablet RxNorm: 633315 1 Tablet(s) PO daily 12/13/2015 09/07/2016 Inactive hydrochlorothiazide 25 mg tablet RxNorm: 435847 1 Tablet(s) PO daily 12/13/2015 04/10/2016 Inactive enalapril maleate 5 mg tablet RxNorm: 642936 TAKE ONE TABLET BY MOUTH ONCE DAILY 11/22/2015 05/19/2016 Inactive venlafaxine ER 150 mg capsule,extended release 24 hr RxNorm: 957526 TAKE ONE CAPSULE BY MOUTH ONCE DAILY 11/14/2015 02/11/2016 Inactive levothyroxine 125 mcg tablet RxNorm: 865562 Tablet(s) TAKE ONE TABLET BY MOUTH ONCE DAILY 11/06/2015 04/14/2016 Inactive levothyroxine 125 mcg tablet RxNorm: 534375 Tablet(s) TAKE ONE TABLET BY MOUTH ONCE DAILY 08/06/2015 11/03/2015 Inactive meclizine 25 mg tablet RxNorm: 029925 1/2-1 Tablet(s) PO Q6 as needed 07/16/2015 No Stop Date Active Flonase Allergy Relief 50 mcg/actuation nasal spray,suspension RxNorm: 1 [place] NASAL daily 06/13/2015 No Stop Date Active prednisone 20 mg tablet RxNorm: 025142 2 Tablet(s) PO daily 06/13/2015 06/17/2015 Inactive Augmentin 875 mg-125 mg tablet RxNorm: 976995 1 Tablet(s) PO BID 06/13/2015 06/19/2015 Inactive Zithromax Z-Kulwant 250 mg tablet RxNorm: 778519 1 Tablet(s) PO UD 06/07/2015 06/11/2015 Inactive zpack Kenalog 40 mg/mL suspension for injection RxNorm: 4164562 Milliliter(s) Inj 06/07/2015 06/07/2015 Inactive venlafaxine ER 150 mg capsule,extended release 24 hr RxNorm: 676348 TAKE ONE CAPSULE BY MOUTH ONCE DAILY 05/14/2015 11/09/2015 Inactive Augmentin 500 mg-125 mg tablet RxNorm: 571228 1 Tablet(s) PO TID 04/25/2015 05/04/2015 Inactive Augmentin 500 mg-125 mg tablet RxNorm: 460967 1 Tablet(s) PO TID 04/25/2015 04/24/2015 Inactive pravastatin 10 mg tablet RxNorm: 450901 1 Tablet(s) PO daily take with coenzyme q 10 daily 03/21/2015 07/18/2015 Inactive DC crestor pravastatin 10 mg tablet RxNorm: 907183 1 Tablet(s) PO daily take with coenzyme q 10 daily 03/21/2015 03/20/2015 Inactive DC crestor Zofran ODT 4 mg disintegrating tablet RxNorm: 177448 1 Tablet(s) PO Q6 PRN 03/13/2015 02/21/2016 Inactive levothyroxine 125 mcg tablet RxNorm: 163285 TAKE ONE TABLET BY MOUTH ONCE DAILY 02/13/2015 08/05/2015 Inactive meloxicam 15 mg tablet RxNorm: 585031 1 Tablet(s) PO daily 01/28/2015 01/22/2016 Inactive Zofran 4 mg tablet RxNorm: 333623 1 Tablet(s) PO Q6-8H as needed nausea 01/24/2015 No Stop Date Active Trulicity 1.5 mg/0.5 mL subcutaneous pen injector RxNorm: 7402075 0.75mg Milliliter(s) SQ QW 01/10/2015 No Stop Date Active venlafaxine ER 150 mg capsule,extended release 24 hr RxNorm: 866371 1 Capsule(s) PO daily 01/10/2015 05/09/2015 Inactive enalapril maleate 5 mg tablet RxNorm: 318763 1 Tablet(s) PO daily 01/04/2015 07/02/2015 Inactive amoxicillin 500 mg tablet RxNorm: 196914 1 Tablet(s) PO BID 12/07/2014 12/06/2014 Inactive Probiotic & Acidophilus 300 million cell-250 mg capsule RxNorm: 1 Capsule(s) PO BID 12/07/2014 12/16/2014 Inactive amoxicillin 500 mg tablet RxNorm: 675732 1 Tablet(s) PO BID 12/07/2014 12/16/2014 Inactive Kenalog 40 mg/mL suspension for injection RxNorm: 8469793 1 Milliliter(s) Inj 12/07/2014 12/07/2014 Inactive meloxicam 15 mg tablet RxNorm: 717713 1 Tablet(s) PO daily 10/24/2014 10/23/2014 Inactive meloxicam 15 mg tablet RxNorm: 741003 1 Tablet(s) PO daily 10/24/2014 01/27/2015 Inactive azithromycin 500 mg tablet RxNorm: 928623 1 Tablet(s) PO daily 10/11/2014 10/15/2014 Inactive azithromycin 500 mg tablet RxNorm: 320942 1 Tablet(s) PO daily 10/11/2014 10/10/2014 Inactive levothyroxine 125 mcg tablet RxNorm: 668909 1 Tablet(s) PO daily 10/06/2014 02/02/2015 Inactive enalapril maleate 5 mg tablet RxNorm: 212238 1 Tablet(s) PO daily 08/29/2014 12/26/2014 Inactive enalapril maleate 5 mg tablet RxNorm: 325211 1 Tablet(s) PO daily 08/25/2014 08/28/2014 Inactive Medroxy oral RxNorm: 3480642 oral No Start Date Active Vitamin D3 5,000 unit tablet RxNorm: 484337 1 Tablet(s) PO daily No Start Date Active fluconazole 200 mg tablet RxNorm: 541746 Tablet(s) PO No Start Date Active estradiol 2 mg tablet RxNorm: 241585 1 Tablet(s) PO daily No Start Date Active fenofibrate nanocrystallized 145 mg tablet RxNorm: 456973 1 Tablet(s) PO daily No Start Date Active hydrocodone 5 mg-acetaminophen 325 mg tablet RxNorm: 568011 1-2 Tablet(s) PO Q4-6H as needed No Start Date Active enalapril maleate 5 mg tablet RxNorm: 319624 1 Tablet(s) PO daily No Start Date 08/24/2014 Inactive glimepiride 4 mg tablet RxNorm: 468796 1 Tablet(s) PO daily No Start Date 01/26/2017 Inactive meclizine 25 mg tablet RxNorm: 552893 1/2-1 Tablet(s) PO Q6 as needed No Start Date 07/15/2015 Inactive Trulicity 0.75 mg/0.5 mL subcutaneous pen injector RxNorm: 4374850 0.75mg Milliliter(s) SQ QW No Start Date 01/09/2015 Inactive metformin 1,000 mg tablet RxNorm: 501322 Tablet(s) PO BID No Start Date 01/26/2017 Inactive venlafaxine ER 150 mg capsule,extended release 24 hr RxNorm: 347980 1 Capsule(s) PO daily No Start Date 01/09/2015 Inactive meloxicam 15 mg tablet RxNorm: 348498 1 Tablet(s) PO daily No Start Date 10/23/2014 Inactive levothyroxine 125 mcg tablet RxNorm: 423263 1 Tablet(s) PO daily No Start Date 10/05/2014 Inactive Levemir FlexTouch 100 unit/mL (3 mL) subcutaneous insulin pen RxNorm: 181853 15 Unit(s) SQ daily No Start Date 02/03/2017 Inactive Zithromax Z-Kulwant 250 mg tablet RxNorm: 288903 1 Tablet(s) PO UD No Start Date 05/20/2016 Inactive Fish Oil 1,000 mg capsule RxNorm: 1 Capsule(s) PO BID No Start Date 11/04/2016 Inactive Zofran 4 mg tablet RxNorm: 468653 1 Tablet(s) PO Q6-8H as needed nausea No Start Date 01/23/2015 Inactive Crestor 10 mg tablet RxNorm: 146947 1 Tablet(s) PO daily No Start Date 03/20/2015 Inactive Medication Administered Medication Codes Instructions Start Date Status Kenalog 40 mg/mL suspension for injection RxNorm: 8911677 Milliliter 03/26/2016 No longer Active Kenalog 40 mg/mL suspension for injection RxNorm: 1922931 Milliliter 06/07/2015 No longer Active Kenalog 40 mg/mL suspension for injection RxNorm: 5099280 1Milliliter 12/07/2014 No longer Active Immunizations No Immunization data Assessments Condition Codes Effective Dates Acute laryngopharyngitis ICD-10: J06.0 ICD-9: 465.0 04/16/2017 Cough ICD-10: R05 ICD-9: 786.2 04/16/2017 Left lower quadrant pain ICD-10: R10.32 [...] Reason For Visit Effective Dates Notes cough 04/16/2017 flank pain 02/10/2017 back pain 02/02/2017 Hospital Follow Up 01/27/2017 hypertension 11/07/2016 cough 03/26/2016 hypertension 12/13/2015 Hospital Follow Up 08/15/2015 cough 06/13/2015 earache 06/07/2015 hypertension 03/13/2015 with nausea and vomiting headache 12/07/2014 headache 09/07/2014 headache 08/07/2014 Results Observation Observation Code Item Item Code Result Date CHEM 14 [id number] AST TNP:Lab Request 01/27/2017 CHEM 14 [id number] ALT TNP:Lab Request 01/27/2017 CHEM 14 [id number] BUN TNP:Lab Request 01/27/2017 CHEM 14 [id number] ALBUMIN TNP:Lab Request 01/27/2017 CHEM 14 [id number] CHLORIDE TNP:Lab Request 01/27/2017 CHEM 14 [id number] Bili Total TNP:Lab Request 01/27/2017 CHEM 14 [id number] ALK PHOS TNP:Lab Request 01/27/2017 CHEM 14 [id number] SODIUM TNP:Lab Request 01/27/2017 CHEM 14 [id number] CREATININE TNP:Lab Request 01/27/2017 CHEM 14 [id number] CALCIUM TNP:Lab Request 01/27/2017 CHEM 14 [id number] POTASSIUM TNP:Lab Request 01/27/2017 CHEM 14 [id number] TOTAL PROTEIN TNP:Lab Request 01/27/2017 CHEM 14 [id number] GLUCOSE TNP:Lab Request 01/27/2017 CHEM 14 [id number] Bicarbonate TNP:Lab Request 01/27/2017 CHEM 14 [id number] AGAP TNP:Lab Request 01/27/2017 AMYLASE [id number] Amylase Lvl TNP:Lab Request 01/27/2017 LIPID GRP [id number] CHOLESTEROL 273 mg/dL 2016 LIPID GRP Triglyceride 583 mg/dL 2016 LIPID GRP HDL CHOLESTEROL 48 mg/dL 2016 LIPID GRP Chol/HDL Ratio 5.69 ratio 2016 LIPID GRP NON-HDL Chol 225 mg/dL 2016 LIPID GRP LDL Cholesterol N/A Trig >400 2016 A1C HPLC 0852518 Hgb A1c 98983-4 7.3 % 2016 TSH [id number] TSH 1.340 uIU/mL 2016 FREE T4 2876786 T4 Free 1.60 ng/dL 2016 MEAN GLUC 5157067 Calc Mean Gluc 163 mg/dL 2016 GFR CALC 7784237 GFR Non Afr Amr >60 mL/min 2016 GFR CALC 6315130 GFR Afr Amr >60 mL/min 2016 CBC 4972044 WBC 8.1 10e9/L 2016 CBC 2026397 RBC 4.41 10e12/L 2016 CBC 8389110 HEMOGLOBIN 13.2 g/dL 2016 CBC 7474584 HEMATOCRIT 39.6 % 2016 CBC 6745963 MCV 89.8 fL 2016 CBC 0366191 MCH 29.9 pg 2016 CBC 5118803 MCHC 33.3 g/dL 2016 CBC 8413823 PLATELET COUNT 298 10e9/L 2016 CBC 9663122 Mean Plt Volume 10.5 fL 2016 CBC 7015222 Neut Auto 61.3 % 2016 CBC 1766057 Lymph Auto 26.3 % 2016 CBC 6298274 Roberts Auto 7.7 % 2016 CBC 6002969 Eos Auto 4.2 % 2016 CBC 7468580 RDW 13.6 % 2016 CBC 3932038 Baso Auto 0.5 % 2016 CBC 7665517 Neutrophil Abs 4.97 10e9/L 2016 CBC 3839978 Lymphocyte Abs 2.13 10e9/L 2016 CBC 1783432 Monocyte Abs 0.62 10e9/L 2016 CBC 0846211 Eosinophil Abs 0.34 10e9/L 2016 CBC 0660144 RDW-SD 44.1 fL 2016 CBC 1499715 Basophil Abs 0.04 10e9/L 2016 CHEM 14 7419698 AST 19 U/L 2016 CHEM 14 8527956 ALT 26 U/L 2016 CHEM 14 0948362 BUN 20 mg/dL 2016 CHEM 14 9968095 ALBUMIN 4.1 g/dL 2016 CHEM 14 9010731 CHLORIDE 99 mmol/L 2016 CHEM 14 8270865 Bili Total 0.3 mg/dL 2016 CHEM 14 2165268 ALK PHOS 55 U/L 2016 CHEM 14 1581295 SODIUM 135 mmol/L 2016 CHEM 14 9120972 CREATININE 0.87 mg/dL 2016 CHEM 14 2295544 CALCIUM 9.3 mg/dL 2016 CHEM 14 9639371 POTASSIUM 4.0 mmol/L 2016 CHEM 14 3154103 TOTAL PROTEIN 7.0 g/dL 2016 CHEM 14 8239820 GLUCOSE 149 mg/dL 2016 CHEM 14 6701643 Bicarbonate 26 mmol/L 2016 CHEM 14 6173227 AGAP 10 mmol/L 2016 Review of Systems System Result Effective Dates Constitutional recent illness 04/16/2017 Constitutional No anorexia [...] CPT-4: J3301 06/07/2015 THER/PROPH/DIAG INJ SC/IM CPT-4: 66617 12/07/2014 TRIAMCINOLONE ACET INJ NOS CPT-4: J3301 12/07/2014 Vital Signs Date Vital 04/16/2017 Blood Pressure 1: 146/88 Code: 8480-6 BMI: 31.3 Code: 82402-9 Heart Rate 1: 96 bpm Height: 5'7" SpO2: 94% Temperature: 37.2 (C) / 99.0 (F) Weight: 200 lbs 02/10/2017 Blood Pressure 1: 132/72 Code: 8480-6 BMI: 31.3 Code: 92197-9 Heart Rate 1: 99 bpm Height: 5'7" SpO2: 97% Weight: 200 lbs 02/02/2017 Blood Pressure 1: 140/68 Code: 8480-6 BMI: 31.4 Code: 24100-0 Heart Rate 1: 82 bpm Height: 5'7" SpO2: 97% Weight: 200 lbs 8 oz 01/27/2017 Blood Pressure 1: 142/80 Code: 8480-6 BMI: 32.2 Code: 32663-0 Height: 5'7" Temperature: 37.2 (C) / 98.9 (F) Weight: 205 lbs 8 oz 11/07/2016 Blood Pressure 1: 148/82 Code: 8480-6 BMI: 32.7 Code: 03095-9 Heart Rate 1: 106 bpm Height: 5'7" SpO2: 97% Weight: 209 lbs 03/26/2016 Blood Pressure 1: 140/86 Code: 8480-6 Heart Rate 1: 90 bpm Height: SpO2: 97% Weight: 12/13/2015 Blood Pressure 1: 132/72 Code: 8480-6 BMI: 31.2 Code: 63493-0 Heart Rate 1: 84 bpm Height: 5'7" SpO2: 98% Weight: 199 lbs 08/15/2015 Blood Pressure 1: 138/88 Code: 8480-6 BMI: 32.1 Code: 25764-4 Heart Rate 1: 94 bpm Height: 5'7" SpO2: 97% Weight: 205 lbs 06/13/2015 Blood Pressure 1: 188/88 Code: 8480-6 Blood Pressure 1: 146/78 Code: 8480-6 BMI: 32.6 Code: 53351-5 Heart Rate 1: 97 bpm Height: 5'7" SpO2: 98% Weight: 208 lbs 06/07/2015 Blood Pressure 1: 128/82 Code: 8480-6 BMI: 32.4 Code: 38430-6 Heart Rate 1: 80 bpm Height: 5'7" SpO2: 99% Weight: 207 lbs 03/13/2015 Blood Pressure 1: 124/70 Code: 8480-6 BMI: 31.6 Code: 16877-9 Heart Rate 1: 103 bpm Height: 5'7" Respiratory Rate: 18 bpm SpO2: 97% Temperature: 36.6 (C) / 97.8 (F) Weight: 202 lbs 12/07/2014 Blood Pressure 1: 140/80 Code: 8480-6 BMI: 32.3 Code: 89033-8 Heart Rate 1: 97 bpm Height: 5'7" SpO2: 99% Weight: 206 lbs 09/07/2014 Blood Pressure 1: 132/78 Code: 8480-6 BMI: 31.2 Code: 07049-9 Heart Rate 1: 92 bpm Height: 5'7" Weight: 199 lbs 08/07/2014 Blood Pressure 1: 140/84 Code: 8480-6 Heart Rate 1: 96 bpm Height: 5'7" Weight: Functional Status No Functional Status data History of Present Illness Symptom Name Status Result Effective Date Notes cough Quality acute 04/16/2017 None cough Onset [...] with shunt placement- 08-11-14- Dr Ruvalcaba in [place] did surgery headache Onset and Resolution ongoing [...] data Encounters Encounter Performer Location Codes Date ([id number]) 41696 EST. PATIENT, LEVEL III Diagnosis: Acute laryngopharyngitis[ICD10: J06.0] Diagnosis: Cough[ICD10: R05] [facility] CPT-4: 87305 04/16/2017 39345 EST. PATIENT, LEVEL III Diagnosis: Left lower quadrant pain[ICD10: R10.32] Aditi Dunhma MD [facility] CPT-4: 44900 02/10/2017 ([id number]) 38606 EST. PATIENT, LEVEL III Diagnosis: Pain in thoracic spine[ICD10: M54.6] Diagnosis: Other muscle spasm[ICD10: M62.838] Tavia Dunham MD [facility] CPT- 4: 71622 02/02/2017 ([id number]) 50836 EST. PATIENT, LEVEL IV Diagnosis: Other acute pancreatitis without necrosis or infection[ICD10: K85.80] Diagnosis: Epigastric pain[ICD10: R10.13] Diagnosis: Type 2 diabetes mellitus without complications[ICD10: E11.9] Tavia Dunham MD, [facility] CPT-4: 19940 01/27/2017 73790 EST. PATIENT, LEVEL IV Diagnosis: Essential (primary) hypertension[ICD10: I10] Diagnosis: Type 1 diabetes mellitus without complications[ICD10: E10.9] Diagnosis: Other specified hypothyroidism[ICD10: E03.8] Diagnosis: Bilateral primary osteoarthritis of hip[ICD10: M16.0] Diagnosis: Actinic keratosis[ICD10: L57.0] Aditi Dunham MD, [facility] CPT-4: 02812 11/07/2016 58827 EST. PATIENT, LEVEL III Diagnosis: Other acute sinusitis[ICD10: J01.80] Diagnosis: Other allergic rhinitis[ICD10: J30.89] Diagnosis: Cough[ICD10: R05] Aditi Dunham MD, [facility] CPT-4: 73368 03/26/2016 ([id number]) 31136 EST. PATIENT, LEVEL IV Diagnosis: Essential (primary) hypertension[ICD10: I10] Diagnosis: Pure hyperglyceridemia[ICD10: E78.1] Tavia Dunham MD, [facility] CPT- 4: 27170 12/13/2015 ([id number]) 24244 EST. PATIENT, LEVEL III Diagnosis: Essential (primary) hypertension[ICD10: I10] Diagnosis: (Idiopathic) normal pressure hydrocephalus[ICD10: G91.2] Tavia Dunham MD, [facility] CPT-4: 44744 08/15/2015 85377 EST. PATIENT, LEVEL III Diagnosis: Other acute nonsuppurative otitis media, right ear[ICD10: H65.191] Diagnosis: Acute upper respiratory infection, unspecified[ICD10: J06.9] Aditi Dunham MD, [facility] CPT-4: 21056 06/13/2015 ([id number]) 75630 EST. PATIENT, LEVEL III Diagnosis: Acute recurrent maxillary sinusitis[ICD10: J01.01] Diagnosis: Allergic rhinitis due to pollen[ICD10: J30.1] Kaylan Dunham MD, [facility] CPT-4: 05367 06/07/2015 ([id number]) 04323 EST. PATIENT, LEVEL IV Diagnosis: (Idiopathic) normal pressure hydrocephalus[ICD10: G91.2] Diagnosis: Essential (primary) hypertension[ICD10: I10] Diagnosis: Dizziness and giddiness[ICD10: R42] Diagnosis: Nausea with vomiting, unspecified[ICD10: R11.2] Kaylan Dunham MD, [facility] CPT-4: 54606 03/13/2015 77331 EST. PATIENT, LEVEL III Diagnosis: Acute sinusitis, unspecified[ICD10: J01.90] Diagnosis: Allergic rhinitis, unspecified[ICD10: J30.9] Tavia Dunham MD, [facility] CPT-4: 53246 12/07/2014 ([id number]) 56742 EST. PATIENT, LEVEL IV Diagnosis: ESSENTIAL HYPERTENSION[ICD9: 401.9] Diagnosis: DIABETES TYPE II[ICD9: 250.00] Diagnosis: NPH (normal pressure hydrocephalus)[ICD9: 331.5] Diagnosis: Hypertriglyceridemia[ICD9: 272.1] Kaylan Dunham MD, [facility] CPT- 4: 38933 09/07/2014 ([id number]) OFFICE/OUTPATIENT VISIT NEW Diagnosis: DIABETES TYPE II[ICD9: 250.00] Diagnosis: ESSENTIAL HYPERTENSION[ICD9: 401.9] Diagnosis: NPH (normal pressure hydrocephalus)[ICD9: 331.5] Diagnosis: Abnormal gait[ICD9: 781.2] Diagnosis: VITAMIN D DEFICIENCY[ICD9: 268.9] Tavia Dunham MD, [facility] CPT- 4: 66089 08/07/2014 Plan of Care Planned Activity Notes Codes Status Date Visit Plan: URI - Pt advised to increase fluids, vitamin C. Discussed natural and expected course of this diagnosis and need to alert me if symptoms do not follow expected course, or if any worse. RX sent to patient's pharmacy. 04/16/2017 Patient Education: Patient Medication Summary Completed [...] concerns. 02/10/2017 Appointment[facility] [phone] [facility] (15 min) Moderate 02/10/2017 Patient Education: Patient Medication Summary Completed 02/10/2017 Patient Education: Obesity Completed 02/10/2017 Visit Plan: Pain in Thoracic spine with muscle spasm - ibuprofen 600mg three times daily x 3 days, rx for cyclobenzaprine. 02/02/2017 [facility] [phone] [id number] ([facility] min) Moderate 02/02/2017 Patient Education: [...] today. 01/27/2017 [facility] [phone] [facility] ([facility] min) Moderate 01/27/2017 Patient Education: [...] symptoms. 11/07/2016 App[facility]ment[facility] [phone] [facility] (30 min) Complex 11/07/2016 Patient [...] spray. 03/26/2016 Appointment: Aditi Hamilton WPtel: [phone] [facility] (30 min) Complex 03/26/2016 Patient Education: Patient [...] medications. 12/13/2015 [facility] [phone] [facility] ([facility] min) Moderate 12/13/2015 Patient Education: [...] supplement. 08/07/2014 Appointment: Tavia Dunham WPtel: [address] [place], [place] [id number] [place] ([place]) New Patient 08/07/2014 Patient Education: [...] tylenol for break through pain symptoms. . URI - Pt advised to increase [...]
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
[2018-10-08] MEDS ORDERED: ONDANSETRON 4 MG/2 ML (SDV) Z0FRAN ONE (13:26)
[2018-10-08] MEDS: ONDANSETRON 4 MG/2 ML (SDV) Z0FRAN IVP PRN ×2 (13:33→19:36)
[2018-10-08] MEDS: ACETAMINOPHEN 325 MG TABLET PO PRN ×2 (14:58→19:37)
[2018-10-08] MEDS ORDERED: BIOT5000 PO ×2 (17:43)
[2018-10-08] MEDS ORDERED: CHOL200059 PO ×2 (17:43)
[2018-10-08] MEDS ORDERED: PRAV40TA2 PO (17:43)
[2018-10-08] MEDS ORDERED: INSU100I29 SQ ×2 (17:43)
[2018-10-08] MEDS ORDERED: FENO145T37 PO ×2 (17:43)
[2018-10-08] MEDS: OMEGA 3 (FISH OIL) 1000 MG CAP PO SCH (17:58)
[2018-10-08] MEDS: TICAGRELOR 90 MG TABLET (BRILINTA) PO SCH (21:01)
[2018-10-08] MEDS: ATORVASTATIN 80 MG (LIPITOR) TABLET PO SCH (21:02)
[2018-10-09] VITALS (12 sets, daily range): BP systolic 126–154; BP diastolic 73–94
[2018-10-09 03:58] LABS: HEMOGLOBIN 13.8 G/DL (11.5-16.0); RED CELL DISTRIBUTION WIDTH 13.8 % (10.0-14.5); WHITE BLOOD COUNT 11.9 10^3/uL (4.3-11.0)
[2018-10-09 04:20] LABS: CALCIUM 9.8 MG/DL (8.5-10.1); CREATININE SERUM 0.96 MG/DL (0.60-1.30); POTASSIUM 4.1 MMOL/L (3.6-5.0)
[2018-10-09] MEDS: NS IV 1000 ML 1,000 ML IV SCH ×3 (07:32→17:11)
[2018-10-09] MEDS: OMEGA 3 (FISH OIL) 1000 MG CAP PO SCH ×2 (07:34→18:04)
--- NOTE | 2018-10-09 07:59 | Cardiology Progress Note ---
Subjective Date Seen by Provider: Oct 09, 2018 Time Seen by Provider: 07:57 Subjective/Events-last exam patient is sitting in a chair, feeling better, no chest pain was reported, still having EKG abnormality, groin is healing well Review of Systems General: No Chills, No Night Sweats, No Fatigue, No Malaise, No Appetite, No Other HEENT: No Head Aches, No Visual Changes, No Eye Pain, No Ear Pain, No Dysphasia, No Sinus Congestion, No Post Nasal Drip, No Sore Throat, No Other Pulmonary: No Dyspnea, No Cough, No Pleuritic Chest Pain, No Other Cardiovascular: No: Chest Pain, Palpitations, Orthopnea, Paroxysmal Noc. Dyspn ea, Edema, Lt Headedness, Other Objective-Cardiology Exam Last Set of Vital Signs Vital Signs 10/09/18 07:35 Temp 97.4 Capillary Refill : Less Than 3 Seconds I&O Intake and Output 10/09/18 00:00 Intake Total 810 ml Output Total 450 ml Balance 360 ml Intake Oral 810 ml Output Urine Total 450 ml # Voids 3 Daily Weight Change No General: Alert, Oriented X3, Cooperative, No Acute Distress HEENT: Atraumatic, PERRLA Neck: Supple, No JVD Lungs: Clear to Auscultation, Normal Air Movement Heart: Regular Rate, Normal S1, Normal S2, No Murmurs Abdomen: Normal Bowel Sounds, Soft, No Tenderness, No Hepatosplenomegaly, No Masses Extremities: No Clubbing, No Cyanosis, No Edema, Normal Pulses, No Tenderness/Swelling Skin: No Rashes, No Breakdown, No Significant Lesion Neuro: Normal Gait, Normal Speech, Strength at 5/5 X4 Ext, Normal Tone, Sensati on Intact Psych/Mental Status: Mental Status NL, Mood NL Results Lab Laboratory Tests 10/08/18 10:21 10/09/18 03:09 Laboratory Tests Test 10/08/18 10:21 10/09/18 03:09 10/09/18 07:18 Range/Units White Blood Count 11.8 H 11.9 H 4.3-11.0 10^3/uL Red Blood Count 4.96 4.66 4.35-5.85 10^6/uL Hemoglobin 14.5 13.8 11.5-16.0 G/DL Hematocrit 44 42 35-52 % Mean Corpuscular Volume 89 91 80-99 FL Mean Corpuscular Hemoglobin 29 30 25-34 PG Mean Corpuscular Hemoglobin Concent 33 33 32-36 G/DL Red Cell Distribution Width 13.8 13.8 10.0-14.5 % Platelet Count 302 270 130-400 10^3/uL Mean Platelet Volume 10.7 H 11.0 H 7.4-10.4 FL Neutrophils (%) (Auto) 78 H 42-75 % Lymphocytes (%) (Auto) 17 12-44 % Monocytes (%) (Auto) 5 0-12 % Eosinophils (%) (Auto) 1 0-10 % Basophils (%) (Auto) 0 0-10 % Neutrophils # (Auto) 9.2 H 1.8-7.8 X 10^3 Lymphocytes # (Auto) 2.0 1.0-4.0 X 10^3 Monocytes # (Auto) 0.5 0.0-1.0 X 10^3 Eosinophils # (Auto) 0.1 0.0-0.3 10^3/uL Basophils # (Auto) 0.0 0.0-0.1 10^3/uL Prothrombin Time 12.5 12.2-14.7 SEC INR Comment 0.9 0.8-1.4 Activated Partial Thromboplast Time 26 24-35 SEC Sodium Level 135 138 135-145 MMOL/L Potassium Level 4.3 4.1 3.6-5.0 MMOL/L Chloride Level 99 104 98-107 MMOL/L Carbon Dioxide Level 23 20 L 21-32 MMOL/L Anion Gap 13 14 5-14 MMOL/L Blood Urea Nitrogen 23 H 14 7-18 MG/DL Creatinine 1.04 0.96 0.60-1.30 MG/DL Estimat Glomerular Filtration Rate 55 60 BUN/Creatinine Ratio 22 15 Glucose Level 248 H 193 H 70-105 MG/DL Calcium Level 10.0 9.8 8.5-10.1 MG/DL Corrected Calcium 9.6 8.5-10.1 MG/DL Magnesium Level 2.3 1.8-2.4 MG/DL Total Bilirubin 0.4 0.1-1.0 MG/DL Aspartate Amino Transf (AST/SGOT) 53 H 5-34 U/L Alanine Aminotransferase (ALT/SGPT) 35 0-55 U/L Alkaline Phosphatase 93 40-136 U/L Myoglobin 290.1 H 10.0-92.0 NG/ML Troponin I 3.387 *H 17.577 *H 20.162 *H <0.028 NG/ML Total Protein 8.1 6.4-8.2 GM/DL Albumin 4.5 3.2-4.5 GM/DL Triglycerides Level 649 H <150 MG/DL Cholesterol Level 193 < 200 MG/DL LDL Cholesterol Direct 54 1-129 MG/DL VLDL Cholesterol 130 H 5-40 MG/DL HDL Cholesterol 43 40-60 MG/DL A/P-Cardiology Admission Diagnosis Acute ST elevation [place] Coronary artery disease Hypertension Hyperlipidemia Assessment/Plan Acute ST elevation or infarction in the inferolateral leads, status post emergency cardiac catheterization and stenting to the right coronary artery Coronary artery disease, no previous history, emergency cardiac catheterization was carried out showing severe stenosis in the midright coronary artery successful deployment of 2.2526 mm resolute integrity drug-eluting stent expanded to 2.3 mm with excellent results. The rest of the system had mild disease. Hypertension, continue on current medication, home medications were restarted and I added Toprol and monitor blood pressure Hyperlipidemia started on Lipitor 80 mg daily, maintained on fenofibrate as an outpatient, triglyceride 645 Diabetes mellitus, managed by primary care physician Hypothyroidism, continue to monitor, managed by primary care physician Family history of heart disease History of normal pressure hydrocephalus, history of shunt in the past. Allergy to codeine Clinical Quality Measures DVT/VTE Risk/Contraindication: Risk Factor Score Per Nursin RFS Level Per Nursing on Admit: 4+=Very High VANESA RANGEL MD Oct 09, 2018 07:59
[2018-10-09] MEDS ORDERED: lisINopril 5 MG (PRINIVIL) TABLET PO SCH (09:00)
[2018-10-09] MEDS: VENlafaxine XR 75 MG (EFFEXOR XR) CAP PO SCH (09:05)
[2018-10-09] MEDS: ENALAPRIL 10 MG (VASOTEC) TAB PO SCH ×2 (09:05→20:39)
[2018-10-09] MEDS: ASPIRIN E.C. 81 MG (ECOTRIN) TAB PO SCH (09:05)
[2018-10-09] MEDS: HYDROCHLOROTHIAZIDE 25 MG (HCTZ) TAB PO SCH (09:05)
[2018-10-09] MEDS: ESTRADIOL 1 MG TAB (ESTRACE) PO SCH (09:05)
[2018-10-09] MEDS: fluCOnazole (DIFLUCAN) 100 MG TAB PO SCH (09:05)
[2018-10-09] MEDS: TICAGRELOR 90 MG TABLET (BRILINTA) PO SCH ×2 (09:05→20:39)
[2018-10-09] MEDS: LEVOTHYROXINE 125 MCG (LEVOTHROID) TABLET PO SCH (09:05)
[2018-10-09] MEDS: PANTOPRAZOLE 40 MG (PROTONIX) TAB PO SCH (09:05)
[2018-10-09] MEDS: medroxyPROGESTERone 2.5 MG (PROVERA) TABLET PO SCH (09:10)
[2018-10-09] MEDS: ACETAMINOPHEN 325 MG TABLET PO PRN ×2 (15:21→20:40)
[2018-10-09] MEDS: FENOFIBRATE 134 MG (LOFIBRA) CAPSULE PO SCH (20:39)
[2018-10-09] MEDS: ATORVASTATIN 80 MG (LIPITOR) TABLET PO SCH (20:39)
[2018-10-10] VITALS (10 sets, daily range): BP systolic 84–130; BP diastolic 49–76
[2018-10-10] MEDS: ACETAMINOPHEN 325 MG TABLET PO PRN ×4 (00:44→23:53)
[2018-10-10] MEDS: NS IV 1000 ML 1,000 ML IV SCH ×6 (03:43→23:30)
[2018-10-10 04:09] LABS: HEMOGLOBIN 13.6 G/DL (11.5-16.0); MEAN PLATELET VOLUME 10.7 FL (7.4-10.4); RED CELL DISTRIBUTION WIDTH 14.1 % (10.0-14.5); WHITE BLOOD COUNT 14.8 10^3/uL (4.3-11.0)
[2018-10-10 04:30] LABS: CALCIUM 10.2 MG/DL (8.5-10.1); CREATININE SERUM 1.1 MG/DL (0.60-1.30); POTASSIUM 4.3 MMOL/L (3.6-5.0)
[2018-10-10] MEDS: PANTOPRAZOLE 40 MG (PROTONIX) TAB PO SCH (07:40)
[2018-10-10] MEDS: TICAGRELOR 90 MG TABLET (BRILINTA) PO SCH ×2 (07:40→20:10)
[2018-10-10] MEDS: medroxyPROGESTERone 2.5 MG (PROVERA) TABLET PO SCH (07:40)
[2018-10-10] MEDS: LEVOTHYROXINE 125 MCG (LEVOTHROID) TABLET PO SCH (07:40)
[2018-10-10] MEDS: ESTRADIOL 1 MG TAB (ESTRACE) PO SCH (07:40)
--- NOTE | 2018-10-10 07:40 | NUR ---
PT C/O LEFT SHOULDER PAIN 03/11 THIS AM W/O ANY OTHER S/S. EKG OBTAINED AND DR RANGEL INFORMED.
[2018-10-10] MEDS: VENlafaxine XR 75 MG (EFFEXOR XR) CAP PO SCH (07:41)
[2018-10-10] MEDS: OMEGA 3 (FISH OIL) 1000 MG CAP PO SCH ×2 (07:41→18:00)
[2018-10-10] MEDS: ENALAPRIL 10 MG (VASOTEC) TAB PO SCH ×2 (07:41→20:10)
[2018-10-10] MEDS: ASPIRIN E.C. 81 MG (ECOTRIN) TAB PO SCH (07:41)
[2018-10-10] MEDS: HYDROCHLOROTHIAZIDE 25 MG (HCTZ) TAB PO SCH (07:41)
--- NOTE | 2018-10-10 08:57 | Cardiology Progress Note ---
Subjective Date Seen by Provider: Oct 10, 2018 Time Seen by Provider: 08:55 Subjective/Events-last exam patient is laying down in bed, had mild left shoulder pain, denied any chest pain. EKG this morning showed new ST elevation in the lateral leads that was not present on yesterday's EKG. I discussed with her the management plan recommended reevaluating coronary angiogram Review of Systems General: No Chills, No Night Sweats, No Fatigue, No Malaise, No Appetite, No Other HEENT: No Head Aches, No Visual Changes, No Eye Pain, No Ear Pain, No Dysphasia, No Sinus Congestion, No Post Nasal Drip, No Sore Throat, No Other Pulmonary: No Dyspnea, No Cough, No Pleuritic Chest Pain, No Other Cardiovascular: No: Chest Pain, Palpitations, Orthopnea, Paroxysmal Noc. Dyspnea, Edema, Lt Headedness, Other Objective-Cardiology Exam Last Set of Vital Signs Vital Signs 10/10/18 08:27 Temp 97.9 Pulse 86 Resp 14 B/P (MAP) 118/70 (86) Pulse Ox 96 O2 Delivery Room Air Capillary Refill : Less Than 3 Seconds I&O l Intake and Output 10/10/18 00:00 Intake Total 2820 ml Output Total 1550 ml Balance 1270 ml Intake Oral 1820 ml IV Total 1000 ml Output Urine Total 1550 ml # Voids 8 # Bowel Movements 1 General: Alert, Oriented X3, Cooperative, No Acute Distress HEENT: Atraumatic, PERRLA Neck: Supple, No JVD Lungs: Clear to Auscultation, Normal Air Movement Heart: Regular Rate, Normal S1, Normal S2, No Murmurs Abdomen: Normal Bowel Sounds, Soft, No Tenderness, No Hepatosplenomegaly, No Masses Extremities: No Clubbing, No Cyanosis, No Edema, Normal Pulses, No Tenderness/Swelling Skin: No Rashes, No Breakdown, No Significant Lesion Neuro: Normal Gait, Normal Speech, Strength at 5/5 X4 Ext, Normal Tone, Sensation Intact Psych/Mental Status: Mental Status NL, Mood NL Results Lab Laboratory Tests 10/10/18 03:55 A/P-Cardiology Admission Diagnosis Acute ST elevation [place] Coronary artery disease Hypertension Hyperlipidemia Assessment/Plan Acute ST elevation or infarction in the inferolateral leads, status post emergency cardiac catheterization and stenting to the right coronary artery Coronary artery disease, no previous history, emergency cardiac catheterization was carried out showing severe stenosis in the midright coronary artery successful deployment of 2.2526 mm resolute integrity drug-eluting stent expanded to 2.3 mm with excellent results. The rest of the system had mild disease. EKG this morning showed changes with new ST elevation, persistent elevation in troponin. I am planning to evaluate coronary angiogram today Hypertension, continue on current medication Hyperlipidemia started on Lipitor 80 mg daily, maintained on fenofibrate as an outpatient, triglyceride 645, continue to monitor Diabetes mellitus, managed by primary care physician Hypothyroidism, continue to monitor, managed by primary care physician Family history of heart disease History of normal pressure hydrocephalus, history of shunt in the past. Allergy to codeine Clinical Quality Measures DVT/VTE Risk/Contraindication: Risk Factor Score Per Nursin RFS Level Per Nursing on Admit: 4+=Very High VANESA RANGEL MD Oct 10, 2018 08:57
--- NOTE | 2018-10-10 08:58 | Cardiac Procedure Note-CS/ASA ---
Pre-Procedure Note Pre-Op Procedure Note H&P Reviewed The H&P was reviewed, patient examined and no changes noted. Date H&P Reviewed: Oct 10, 2018 Time H&P Reviewed: 08:57 Conscious Sedation Pre-Proced Time 08:57 ASA Score 3 For ASA 3 and 4: Consider anesthesia and medical clearance. Also, for patients with a history of failed moderate sedation consider anesthesia. Airway Lungs Heart ASA score ASA 1: a normal healthy patient ASA 2: a patient with a mild systemic disease (mid diabetes, controlled hypertension, obesity x ASA 3: a patient with a severe systemic disease that limits activity (angina, COPD, prior Myocardial infarction) ASA 4: a patient with an incapacitating disease that is a constant threat to life (CHF, renal failure) ASA 5: a moribund patient not expected to survive 24 hrs. (ruptured aneurysm) ASA 6: a declared brain- patient whose organs are being harvested. For emergent operations, add the letter E after the classification Mallampati Classification Grade 3 Sedation Plan Analgesia, Amnesia, Plan communicated to team members, Discussed options with patient/fam, Discussed risks with patient/fam The patient is an appropriate candidate to undergo the planned procedure, sedation, and anesthesia. The patient immediately re-assessed prior to indication. VANESA RANGEL MD Oct 10, 2018 08:58
[2018-10-10] MEDS ORDERED: NS IV 1000 ML 0 ML ONE (09:30)
[2018-10-10] MEDS ORDERED: LIDOCAINE 1% INJ 20 ML 20 ML VIAL ONE ×2 (09:30→10:18)
[2018-10-10] MEDS ORDERED: HEParin (CATH LAB) 2,000 ML IV ONE (09:30)
[2018-10-10] MEDS ORDERED: fentaNYL INJECTION 100 MCG/2 ML AMP ONE (09:36)
[2018-10-10] MEDS ORDERED: MIDAZOLAM 5 MG/5 ML (VERSED) VIAL ONE (09:36)
--- NOTE | 2018-10-10 09:50 | NUR ---
PT LEFT FLOOR VIA BED W/ DIRECTOR DERMATOLOGY STAFF.
[2018-10-10] MEDS ORDERED: NITRO DRIP 25000 MCG/D5W 250 ML IV ONE (10:28)
[2018-10-10] MEDS ORDERED: PATIENT MAY USE OWN MEDS, ALL PO SCH (10:45)
--- NOTE | 2018-10-10 10:52 | Cardiac Cath Report ---
Cardiac Cath Report Physician (s)/Fruit Stuffer (s) Physician VANESA RANGEL MD Pre-Procedure Diagnosis Pre-Procedure Diagnosis: CAD Post-Procedure Note Procedure Start Date: Oct 10, 2018 Name of Procedure: [facility] Findings/Procedure Note PROCEDURE NOTE: 53 years old lady with recent acute ST elevation myocardial infarction, had em ergency stenting to the right coronary artery. Troponin continue to rise. Continue to have subtle ST elevation in the inferior lead, this morning had ST elevation on the lateral leads, having some left shoulder pain, decided to repeat the cardiac catheterization reevaluate the coronary anatomy. After explaining the procedure to the patient, all pros and cons were explained, all questions were answered. The patient signed the consent and then she was placed on the cardiac catheterization laboratory. Groin was prepped SL fashion local anesthesia was used. Sheath placed in the right femoral artery. Sharan right and left catheter were used to access the coronary system. Sharan right prolapsed to the left ventricular cavity pressure was measured no left eugenio tricular gram was done. At the end of the procedure the sheath was removed. Closure device was used FINDINGS: Hemodynamics LV 128/17, end-diastolic pressure of 17 Aorta 109/60, mean of 81 ANATOMY: Left Main is free of obstructive disease Left Anterior Descending is moderate in size tortuous artery, first diagonal has moderate to severe stenosis, very small artery Left Circumflex is moderate in size with no obstructive disease Right Coronory Artery is small to moderate in size, patent stent in the midright coronary artery, right PDA is tortuous with good flow, right PLV is very small artery LV Gram was not done, pressure was measured CONCLUSION: 1. Patent stent in the right coronary artery with mild disease in the right PDA, very small posterior lateral branch, overall the right coronary system is a small to moderate size artery with tkbi-gh-ddfsjjrm disease 2. Tortuous LAD system with moderate severe stenosis in the diagonal artery that is very small artery less than 1 mm in diameter 3. Moderate size circumflex system with no obstructive disease 4. Improvement in the left ventricular end-diastolic pressure compared to the previous study DISCUSSION AND RECOMMENDATION: patient has small arteries, probably has disease distally in small branches, the epicardial arteries appear to be tortuous with pntu-rp-kukkspfr disease nonobstructive disease at this point. I will continue maximizing medical therapy. I will evaluate troponin and myoglobin in the morning Anesthesia Type: Conscious Sedation Estimated blood loss (mL): 15 ml Contrast Amount: 61 ml Total Radiation Dose: 513 mGy Post-Procedure Diagnosis Post-operative diagnosis: Coronary artery disease Hypertension Hyperlipidemia Diabetes mellitus VANESA RANGEL MD Oct 10, 2018 10:52
--- NOTE | 2018-10-10 11:10 | NUR ---
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
--- NOTE | 2018-10-10 16:30 | NUR ---
REPORT GIVEN TO ABE MARTINI WHO ASSUMES CARE OF PT FOR REMAINDER OF SHIFT.
[2018-10-10] MEDS: ATORVASTATIN 80 MG (LIPITOR) TABLET PO SCH (20:10)
[2018-10-10] MEDS: FENOFIBRATE 134 MG (LOFIBRA) CAPSULE PO SCH (20:10)
[2018-10-11] VITALS: BP 165/95
[2018-10-11] MEDS: NS IV 1000 ML 1,000 ML IV SCH ×2 (02:17)
[2018-10-11 04:00] VITALS: BP 114/69
[2018-10-11 04:13] LABS: HEMOGLOBIN 11.6 G/DL (11.5-16.0); MEAN PLATELET VOLUME 10.9 FL (7.4-10.4); WHITE BLOOD COUNT 11.8 10^3/uL (4.3-11.0)
[2018-10-11 04:35] LABS: BUN/CREATININE RATIO 20; CALCIUM 9.3 MG/DL (8.5-10.1); CARBON DIOXIDE 22 MMOL/L (21-32); CHLORIDE 104 MMOL/L (98-107); CREATININE SERUM 0.86 MG/DL (0.60-1.30); GFR ESTIMATED > 60; GLUCOSE 194 MG/DL (70-105); POTASSIUM 3.5 MMOL/L (3.6-5.0); SODIUM 138 MMOL/L (135-145)
[2018-10-11] MEDS: OMEGA 3 (FISH OIL) 1000 MG CAP PO SCH (07:36)
[2018-10-11] MEDS: LEVOTHYROXINE 125 MCG (LEVOTHROID) TABLET PO SCH (07:37)
[2018-10-11] MEDS: ESTRADIOL 1 MG TAB (ESTRACE) PO SCH (07:37)
[2018-10-11] MEDS: ENALAPRIL 10 MG (VASOTEC) TAB PO SCH (07:38)
[2018-10-11] MEDS: TICAGRELOR 90 MG TABLET (BRILINTA) PO SCH (07:38)
[2018-10-11] MEDS: VENlafaxine XR 75 MG (EFFEXOR XR) CAP PO SCH (07:38)
[2018-10-11] MEDS: PANTOPRAZOLE 40 MG (PROTONIX) TAB PO SCH (07:38)
[2018-10-11] MEDS: ASPIRIN E.C. 81 MG (ECOTRIN) TAB PO SCH (07:38)
[2018-10-11] MEDS: medroxyPROGESTERone 2.5 MG (PROVERA) TABLET PO SCH (07:38)
[2018-10-11] MEDS: HYDROCHLOROTHIAZIDE 25 MG (HCTZ) TAB PO SCH (07:43)
[2018-10-11] MEDS: fluCOnazole (DIFLUCAN) 100 MG TAB PO SCH (07:43)
[2018-10-11 08:00] VITALS: BP 120/93
[2018-10-11] MEDS ORDERED: OMG1KC PO ×2 (08:35)
[2018-10-11] MEDS ORDERED: TICA90TA PO ×2 (08:35)
[2018-10-11] MEDS ORDERED: ASPI-983 PO ×2 (08:35)
[2018-10-11] MEDS ORDERED: ATOR80TA76 PO ×2 (08:35)
[2018-10-11] MEDS ORDERED: METO-387 PO ×2 (08:35)
[2018-10-11] MEDS ORDERED: PANT40TA3 PO ×2 (08:35)
--- NOTE | 2018-10-11 08:38 | Discharge Inst-Post CATH ---
Discharge Inst-CATH/EP Problems Reviewed?: Yes Post Cardiac Cath/EP D/C Inst Follow Up/Plan Appointment with Dr. Pruitt's office in 2 weeks <b>CARDIAC CATH/EP PROCEDURE DISCHARGE INSTRUCTIONS</b> ACTIVITY * Go Home directly and rest. * Limit activity of the leg (or wrist if it was used) for 7 days including aerobics, swimming, jogging, bicycling, etc. * Restrict stair-climbing for 7 days if possible, if not, climb up with your non-cath leg, then bring together on the same step. * Avoid lifting, pushing, pulling or excessive movement of the affected e xtremity for 7 days. * Customary sexual activity may be resumed after 2 days-use caution not to use a position that strains or causes pain to the affected extremity. * No driving for 24 hours. * NO SMOKING. * Avoid straining for bowel movements for 7 days. * Gentle walking on level ground is allowed. * Returning to work will depend on the type of procedure and the results. Your doctor will discuss this with you. CALL YOUR DOCTOR FOR ANY OF THE FOLLOWING: *If bleeding from the puncture site occurs- Apply gentle pressure to site with clean cloth and call your doctor or EMS. * If a knot or lump forms under the skin, increases in size, or causes pain. * If bruising appears to be worsening or moving further down your leg instead of disappearing. * Temperature above 101 F. CARE OF YOUR GROIN INCISION; * Bruising or purple discoloration of the skin near the puncture site is common. * You may shower only, no bathtub bathing for 5 days. Be careful to avoid slipping as your leg may feel stiff. * If a closure device was used on your femoral artery, please see the attached guide regarding care of the device and your leg. * Leave dressing on FOR 24 hours. CARE OF YOUR WRIST INCISION; * Bruising or purple discoloration of the skin near the puncture site is common. * You may shower. * DO NOT submerge wrist. * Leave dressing on FOR 24 hours. VANESA PRUITT MD Oct 11, 2018 08:37
--- NOTE | 2018-10-11 08:42 | Cardiology Discharge Summary ---
Diagnosis/Chief Complaint Date of Admission October 08, 2018 Date of Discharge October 11, [address] elevation [place] Coronary artery disease Hypertension Hyperlipidemia Discharge Diagnosis acute ST elevation myocardial infarction Coronary artery disease Hypertension Hyperlipidemia Chief Complaint/HPI Chief Complaint/HPI 53 years old lady with history of hypertension, hyperlipidemia, diabetes mellitus, started to have chest pain on and off for about a week, had more significant pain yesterday, she went to her primary care physician and referred for evaluation with EKG, when she had the EKG shows her to have ST elevation, sent directly to the ER and I was called. On my evaluation she reported improvement in her chest pain still having ST elevation Discharge Summary Hospital Course Was the Problem List Reviewed?: Yes Hospital Course Acute ST elevation or infarction in the inferolateral leads, status post emergency cardiac catheterization and stenting to the right coronary artery Coronary artery disease, no previous history, emergency cardiac catheterization was carried out showing severe stenosis in the midright coronary artery successful deployment of 2.2526 mm resolute integrity drug-eluting stent expanded to 2.3 mm with excellent results. The rest of the system had mild to moderate disease, patient had some left shoulder pain on October 10, 2018, had new ST elevation in the lateral lead, I repeated the cardiac catheterization which showed patent stents, small vessel disease, disease in a small diagonal branch that is too small for intervention. Repeating troponin level and myoglobin level this morning showed troponin to be trending down and myoglobin is back to normal. Patient will be going home and follow-up as an outpatient, educated in length about taking aspirin and Brilinta Hypertension, controlled, continue on enalapril 10 mg twice a day and Toprol-XL 25 mg daily Hyperlipidemia started on Lipitor 80 mg daily, maintained on fenofibrate as an outpatient, triglyceride 645, continue to monitor Diabetes mellitus, managed by primary care physician Hypothyroidism, continue to monitor, managed by primary care physician Family history of heart disease History of normal pressure hydrocephalus, history of shunt in the past. Allergy to codeine Labs Laboratory Tests 10/08/18 10:21: White Blood Count 11.8H, Mean Platelet Volume 10.7H, Neutrophils (%) (Auto) 78H, Neutrophils # (Auto) 9.2H, Blood Urea Nitrogen 23H, Glucose Level 248H, Aspartate Amino Transf (AST/SGOT) 53H, Myoglobin 290.1H, Troponin I 3.387*H 10/09/18 03:09: White Blood Count 11.9H, Mean Platelet Volume 11.0H, Glucose Level 193H, Troponin I 17.577*H, Carbon Dioxide Level 20L, Triglycerides Level 649H, VLDL Cholesterol 130H 10/09/18 07:18: Troponin I 20.162*H 10/10/18 03:55: White Blood Count 14.8H, Mean Platelet Volume 10.7H, Glucose Level 240H, Carbon Dioxide Level 20L, Anion Gap 15H, Calcium Level 10.2H 10/11/18 03:48: White Blood Count 11.8H, Red Blood Count 3.90L, Mean Platelet Volume 10.9H, Pota ssium Level 3.5L, Glucose Level 194H, Troponin I 13.872*H Procedures None. Discharge Physical Examination Allergies: Coded Allergies: codeine (Unverified Allergy, Mild, 06/16/08) Vitals & I&Os Vital Signs Date Time Temp Pulse Resp B/P (MAP) Pulse Ox O2 Delivery O2 Flow Rate FiO2 10/11/18 07:00 78 10/11/18 04:00 114/69 (84) Room Air 10/10/18 16:00 94 10/10/18 12:00 10/10/18 11:20 98.1 General Appearance: Alert, Oriented X3, Cooperative, No Acute Distress HEENT: Atraumatic, PERRLA Respiratory: Clear to Auscultation, Normal Air Movement Cardiovascular: Regular Rate, Normal S1, Normal S2, No Murmurs Abdominal: Normal Bowel Sounds, Soft, No Tenderness, No Hepatosplenomegaly, No Masses Extremities: No Clubbing, No Cyanosis, No Edema, Normal Pulses, No Tenderness/Swelling Skin: No Rashes, No Breakdown, No Significant Lesion Neuro: Normal Gait, Normal Speech, Strength at 5/5 X4 Ext, Normal Tone, Sensation Intact, Cranial Nerves 3-12 NL, Reflexes 2+ Psych/Mental Status: Mental Status NL, Mood NL Discharge Home Medications Reviewed and agree with Discharge Medication list on patient's Discharge Instruction sheet Instructions to Patient/Family Please see electronic discharge instructions given to patient. Clinical Quality Measures Admission Status Admission Status: Inpatient Order (span 2 midnights) Reason for Inpatient Admission: acute ST elevation myocardial infarction AMI/AHF: Ejection Fraction: Normal LVSF DVT/VTE Risk/Contraindication: Risk Factor Score Per Nursin RFS Level Per Nursing on Admit: 4+=Very High VANESA RANGEL MD Oct 11, 2018 08:42
== END 2018-10-11 09:40 | disposition home or self-care (01) | DRG 247 ==
LOC: EDUNIT# 10:12 → ER 10:13 → CATH 10:33 → ICU 10:33 → CATH 11:27 → ICU 11:27 → UNDOFXSDCACCOM 10-09 09:10 → UNDOFXSDCRRACCOM 10-09 09:10 → UNDOFXSDCSVC 10-09 09:10 → ICU 10-11 09:40 → CATH 10-11 09:40
PROVIDERS: ADMIT Internal Medicine Cardiovascular Disease; ATTEND Internal Medicine Cardiovascular Disease
PROC: 027034Z Dilation of Coronary Artery, One Artery with Drug-eluting Intraluminal Device, Percutaneous Approach (ICD-10-PCS; principal; 2018-10-08)
PROC: 4A023N7 Measurement of Cardiac Sampling and Pressure, Left Heart, Percutaneous Approach (ICD-10-PCS; 2018-10-08)
PROC: B2111ZZ Fluoroscopy of Multiple Coronary Arteries using Low Osmolar Contrast (ICD-10-PCS; 2018-10-08)
PROC: B2151ZZ Fluoroscopy of Left Heart using Low Osmolar Contrast (ICD-10-PCS; 2018-10-08)
DX: I21.19 ST elevation (STEMI) myocardial infarction involving other coronary artery of inferior wall (principal); I25.10 Atherosclerotic heart disease of native coronary artery without angina pectoris; E78.5 Hyperlipidemia, unspecified; I10 Essential (primary) hypertension; R32 Unspecified urinary incontinence; E11.9 Type 2 diabetes mellitus without complications; Z79.4 Long term (current) use of insulin; F32.9 Major depressive disorder, single episode, unspecified; E03.9 Hypothyroidism, unspecified; M19.90 Unspecified osteoarthritis, unspecified site
CPT/HCPCS: 36415; 80048; 80053; 83735; 83874; 84484; 85025; 85027; 85610; 85730; 87081; 93005; 93041; 93306

== ENCOUNTER → 2018-10-08 | Outpatient (CLI) | payer BC ==
[~2018-10-08] MED LIST changes: +HEParin (CATH LAB) 1,000 ML IV ONE; +HEParin (CATH LAB) 2,000 ML IV ONE; +HEParin 1000 UNIT/ML (10ML VIAL) FOR BOLUS ONE; +LIDOCAINE 1% INJ 20 ML 20 ML VIAL ONE; +MIDAZOLAM 5 MG/5 ML (VERSED) VIAL ONE; +NS IV 1000 ML 1,000 ML ONE; +ONDANSETRON 4 MG/2 ML (SDV) Z0FRAN ONE; +fentaNYL INJECTION 100 MCG/2 ML AMP ONE
== END ==
LOC: CARD 09:49
PROVIDERS: ATTEND Nurse Practitioner Family
DX: R07.9 Chest pain, unspecified (principal)
CPT/HCPCS: 85347; 93458

== ENCOUNTER → 2018-10-11 | Outpatient (CLI) | payer BC ==
[~2018-10-11] MED LIST changes: +ASPI-983 PO; -ASPIRIN 81 MG CHEW (CHILDREN'S ASA) ONE; +ATOR80TA76 PO; +BIOT5000 PO; +CHOL200059 PO; +METO-387 PO; +OMG1KC PO; +PANT40TA3 PO; +PRAV40TA2 PO; +TICA90TA PO
== END ==
LOC: PREOP 05:41
PROVIDERS: ATTEND Surgery
DX: Z01.818 Encounter for other preprocedural examination (principal); Z12.11 Encounter for screening for malignant neoplasm of colon

== ENCOUNTER → 2019-02-21 | Outpatient (REF) ==
--- NOTE | 2019-02-21 15:14 | Diagnostic Imaging Report ---
INDICATION: Pain status post injury. COMPARISON: None. FINDINGS: Three views of the right knee joint demonstrate no acute fracture or dislocation. No focal osseous lesions are seen. No significant joint effusion is seen. The surrounding soft tissue structures are unremarkable. There are no radiopaque foreign bodies. There is mild calcified arterial sclerosis. IMPRESSION: 1. No acute fractures or dislocations of the right knee joint. Dictated by: Dictated on workstation # [id number]
== END | disposition home or self-care (01) ==
LOC: OCC 14:44
PROVIDERS: ATTEND Nurse Practitioner Family
CPT/HCPCS: 73562

== ENCOUNTER → 2019-03-03 | Outpatient (REF) ==
[~2019-03-03] MED LIST changes: +ENLP5T PO; +GLIM4TAB3 PO; -METO-387 PO; +MTP25TSR PO
--- NOTE | 2019-03-03 10:35 | Diagnostic Imaging Report ---
PROCEDURE: MRI right joint lower extremity without contrast. TECHNIQUE: Multiplanar, multisequence non contrast-enhanced MRI of the right lower extremity was accomplished. INDICATION: Reports slipping on ice with knee pain. FINDINGS: The anterior and posterior cruciate ligaments are intact. The medial collateral is normal. There is edema in the proximal fibula with cortical fracture along the tibiofibular joint. Small amount of effusion present. There is some edema noted within the fibular collateral ligament and biceps femoris tendon attachment to the fibula though no evidence of full-thickness disruption. The tibial plateau appears normal and intact. Femoral condyles are normal. The articulating cartilage along the femoral condyle and tibial plateaus is well-preserved. No evidence of cortical edema. The patellofemoral joint appears normal. Trochlea is normal. The surrounding muscles and tendons appear normal. There is no joint effusion. No evidence of popliteal cyst. IMPRESSION: 1. Nondisplaced occult fracture along the proximal tip of the fibula abutting the tibia. There is no evidence of disruption along the tibiofibular joint. The tibia appears intact. 2. The adjacent fibular collateral ligament and biceps femoris tendon attachment to the fibula do show some edema without evidence of full-thickness tear. Dictated by: Dictated on workstation # [id number]
== END | disposition home or self-care (01) ==
LOC: OCC 08:07
PROVIDERS: ATTEND Nurse Practitioner Family
CPT/HCPCS: 73721

== ENCOUNTER → 2019-04-07 | Outpatient (CLI) | payer BC ==
--- NOTE | 2019-04-07 12:44 | Diagnostic Imaging Report ---
PROCEDURE: CT head without contrast. TECHNIQUE: Multiple contiguous axial images were obtained through the brain without the use of intravenous contrast. Auto Exposure Controls were utilized during the CT exam to meet ALARA standards for radiation dose reduction. INDICATION: Headache. COMPARISON: Correlation is made with prior head CT from 06/26/2017. FINDINGS: Right frontal MANAGER ED shunt tube is again noted with tip across the midline. The tip is in the region of the third ventricle. Ventricles are slightly decreased in size when compared with prior study. No sulcal effacement or midline shift is identified. No acute intra-axial or extra-axial hemorrhage is detected. Cisterns are patent. Visualized paranasal sinuses are clear. IMPRESSION: Ventriculomegaly with right frontal MANAGER ED shunt tube. Overall ventricular size is slightly decreased when compared with prior CT from 06/26/2017. Dictated by: Dictated on workstation # [id number]
== END ==
LOC: RAD 12:03
PROVIDERS: ATTEND Nurse Practitioner Family
DX: R51 Headache (principal); Z98.2 Presence of cerebrospinal fluid drainage device
CPT/HCPCS: 70450

== ENCOUNTER → 2020-10-31 | Outpatient (CLI) | payer BC ==
[~2020-10-31] MED LIST changes: +ASPI-1238 PO; -ASPI-983 PO; -ENAL10TA PO; +ENAL10TA16 PO; +FENO145T26 PO; -FENO145T37 PO; -GLIM4TAB3 PO; +GLIM4TAB5 PO; -PANT40TA3 PO; +PANT40TA52 PO
--- NOTE | 2020-10-31 11:31 | Diagnostic Imaging Report ---
INDICATION: Routine screening. COMPARISON: 02/27/2017 and 11/13/2015. TECHNIQUE: 2D and 3D bilateral screening mammography was performed with CAD. FINDINGS: Scattered fibroglandular densities are identified bilaterally. The parenchymal pattern is stable. No mass or malignant-appearing microcalcifications are seen. There are benign calcifications present. The axillae are unremarkable. IMPRESSION: No mammographic features suspicious for malignancy are identified. ACR BI-RADS Category 2: Benign findings. Result letter will be mailed to the patient. Note: At least 10% of breast cancer is not imaged by mammography. Dictated by: Dictated on workstation # [id number]
== END ==
LOC: RAD 10:22
PROVIDERS: ATTEND Surgery
DX: Z12.31 Encounter for screening mammogram for malignant neoplasm of breast (principal)
CPT/HCPCS: 77063; 77067

== ENCOUNTER → 2021-02-04 | Outpatient (CLI) | payer BC ==
[~2021-02-04] MED LIST changes: +ESTR2TAB3 PO
--- NOTE | 2021-02-04 18:04 | Diagnostic Imaging Report ---
INDICATION: Left heel pain Jt lateral views of the left heel are obtained. Moderate enthesophytes are seen along the plantar aspect of the calcaneus and at the Achilles attachment. Atherosclerotic calcifications are present. There is no evidence of fracture. No lytic or sclerotic lesion is identified. IMPRESSION: 1. Posterior and plantar calcaneal enthesopathy without acute osseous abnormality identified. Dictated by: Dictated on workstation # [id number]
--- NOTE | 2021-02-04 18:06 | Diagnostic Imaging Report ---
EXAMINATION: Left shoulder 2 or more views HISTORY: Shoulder pain COMPARISON: None available. FINDINGS: The alignment is normal. No fracture is seen. The acromioclavicular and glenohumeral joint spaces are normal. IMPRESSION: 1. No fracture. Dictated by: Dictated on workstation # [id number]
== END ==
LOC: RAD 17:01
PROVIDERS: ATTEND Nurse Practitioner Family
DX: M77.32 Calcaneal spur, left foot (principal); M25.512 Pain in left shoulder
CPT/HCPCS: 73030; 73650

== ENCOUNTER → 2021-06-21 | Outpatient (CLI) | payer BC ==
[~2021-06-21] VITALS: Ht 170 cm; Wt 91.0 kg
[~2021-06-21] MED LIST changes: +CATHETER FLUSH 10 ML SYR IVP PRN; -FLUC200T5 PO; +FLUC200T9 PO; +REGADENOSON 0.4 MG/5 ML SYR (LEXISCAN) IV ONE
[2021-06-21 09:17] VITALS: BP 142/85
--- NOTE | 2021-06-21 17:02 | STRESS TEST ---
DATE OF SERVICE: 06/21/2021 RESTING AND POST REGADENOSON TECHNETIUM-99M TETROFOSMIN SPECT CT IMAGING ORDERING PHYSICIAN: Dr. Hoskins. PRIMARY PHYSICIAN: Dr. Dunham. CLINICAL DIAGNOSIS: Coronary artery disease. Baseline images were carried out after injection of 10.05 mCi of technetium-99m Tetrofosmin. This was followed by 0.4 mg Regadenoson and 27.2 mCi of technetium-99m Tetrofosmin for stress imaging. The electrocardiogram showed sinus rhythm at baseline. An old inferolateral myocardial infarction is suggested on the electrocardiogram. The electrocardiogram did not change significantly with the Regadenoson infusion. The patient did not report symptoms. Review of images at rest and following stress indicates a moderate sized inferolateral perfusion defect that is partially transient. Gated images show well preserved global left ventricular systolic function. There is inferolateral localized hypokinesis to akinesis. Left ventricular ejection fraction is calculated to be 73%. CONCLUSIONS: 1. Inferolateral myocardial infarction with a small to moderate amount of efrain-infarct ischemia (____). 2. Localized inferolateral hypokinesis to akinesis. 3. Well preserved global left ventricular systolic function with a calculated ejection fraction of 73%. Job ID: [id number] DocumentID: [id number] Dictated Date: 06/21/2021 14:40:23 Technical Internship Date: 06/21/2021 17:01:49 Dictated By: KALI HOSKINS MD, MA, FACP, FACC,
== END ==
LOC: CARD 07:30
PROVIDERS: ATTEND Internal Medicine Cardiovascular Disease
DX: I25.10 Atherosclerotic heart disease of native coronary artery without angina pectoris (principal); I21.9 Acute myocardial infarction, unspecified; I67.82 Cerebral ischemia
CPT/HCPCS: 78452; 93017; A9502

== ENCOUNTER 2021-07-16 08:00 | Day surgery (SDC) | payer BC ==
[~2021-07-16] VITALS: Ht 170.2 cm; Wt 92.1 kg
[2021-07-16] VITALS (9 sets, daily range): BP systolic 111–159; BP diastolic 59–82
[2021-07-16 07:43] LABS: HEMATOCRIT 45 % (35-52); HEMOGLOBIN 14.4 g/dL (11.5-16.0); MEAN CORPUSCULAR HEMOGLOBIN 28 pg (25-34); MEAN CORPUSCULAR HGB CONC 32 g/dL (32-36); MEAN CORPUSCULAR VOLUME 89 fL (80-99); PLATELET COUNT 264 10^3/uL (130-400); WHITE BLOOD COUNT 6.3 10^3/uL (4.3-11.0)
[2021-07-16 07:52] LABS: ALBUMIN 4.4 GM/DL (3.2-4.5)
[2021-07-16 07:54] LABS: TOTAL PROTEIN 7.9 GM/DL (6.4-8.2)
[2021-07-16 07:56] LABS: BILIRUBIN,TOTAL 0.5 MG/DL (0.1-1.0)
[2021-07-16 07:58] LABS: CREATININE SERUM 1.06 MG/DL (0.60-1.30)
[2021-07-16 07:59] LABS: INR 0.9 (0.8-1.4); PROTHROMBIN TIME PATIENT 12.6 SEC (12.2-14.7)
[~2021-07-16 08:00] MED LIST changes: -CATHETER FLUSH 10 ML SYR IVP PRN; +ERGO1250 PO; +ESTR10IN VG; +EZET10TA49 PO; +FENO200C27 PO; +HEParin (CATH LAB) 2,000 ML IV ONE; +INSU100C3 SQ; +LIDOCAINE 1% INJ 20 ML VIAL ONE; +MECL-149 PO; +MIDAZOLAM 5 MG/5 ML (VERSED) VIAL ONE; +NS IV 1000 ML 1,000 ML IV SCH; +NS IV 1000 ML 1,000 ML ONE; +ONDA4TAB11 PO; +OXYB10TA29 PO; -REGADENOSON 0.4 MG/5 ML SYR (LEXISCAN) IV ONE; +fentaNYL INJ 100 MCG/2 ML AMP ONE
--- NOTE | 2021-07-16 09:10 | Cardiac Procedure Note-CS/ASA ---
Pre-Procedure Note Pre-Op Procedure Note H&P Reviewed The H&P was reviewed, patient examined and no changes noted. Date H&P Reviewed: July 16, 2021 Time H&P Reviewed: 08:45 Conscious Sedation Pre-Proced Time 08:45 ASA Score 3 For ASA 3 and 4: Consider anesthesia and medical clearance. Also, for patients with a history of failed moderate sedation consider anesthesia. Airway Lungs Heart ASA score ASA 1: a normal healthy patient ASA 2: a patient with a mild systemic disease (mid diabetes, controlled hypertension, obesity ASA 3: a patient with a severe systemic disease that limits activity (angina, COPD, prior Myocardial infarction) ASA 4: a patient with an incapacitating disease that is a constant threat to life (CHF, renal failure) ASA 5: a moribund patient not expected to survive 24 hrs. (ruptured aneurysm) ASA 6: a declared brain- patient whose organs are being harvested. For emergent operations, add the letter E after the classification Mallampati Classification Grade 2 Sedation Plan Analgesia, Amnesia, Plan communicated to team members, Discussed options with patient/fam, Discussed risks with patient/fam The patient is an appropriate candidate to undergo the planned procedure, sedation, and anesthesia. The patient immediately re-assessed prior to indication. KALI BRUNO MD FACP FAC CCDS July 16, 2021 09:10
--- NOTE | 2021-07-16 09:14 | Discharge Inst-Cardiology ---
Discharge Inst-Cardiac Discharge Medications Continued Medications: Aspirin (Aspirin EC) 81 Mg Tablet.dr 81 MG PO DAILY, #100 TAB 4 Refills Atorvastatin Calcium (Atorvastatin Calcium) 80 Mg Tablet 80 MG PO HS, #30 TAB 3 Refills Cholecalciferol (Vitamin D3) (Vitamin D-3) 2,000 Unit Tablet 2000 UNIT PO DAILY Enalapril Maleate (Enalapril Maleate) 10 Mg Tablet 10 MG PO BID, #30 TAB 6 Refills Ergocalciferol (Vitamin D2) (Vitamin D2) 1,250 Mcg (68787 Unit) Capsule 1250 MCG PO WEEK, CAP Estradiol (Estradiol Tablet) 2 Mg Tablet 2 MG PO DAILY Estradiol (Imvexxy) 10 Mcg Insert 10 MCG VG TWICE A WEEK, INSERT Ezetimibe (Ezetimibe) 10 Mg Tablet 10 MG PO DAILY, TAB Fenofibrate,Micronized (Fenofibrate) 200 Mg Capsule 200 MG PO DAILY, CAP Hydrochlorothiazide (Hydrochlorothiazide) 25 Mg Tablet 25 MG PO DAILY, TAB Insulin Aspart (Novolog) 100 Unit/Ml Cartridge 10 UNITS SQ TIDAC, EA Insulin Detemir (Levemir Flextouch) 100 Unit/1 Ml Insuln.pen 70 UNIT SQ BID WITH MEALS Levothyroxine Sodium (Levothyroxine Sodium) 125 Mcg Tablet 125 MCG PO DAILY, TAB Meclizine HCl (Meclizine HCl) 25 Mg Tablet 25-50 MG PO Q6H PRN for DIZZINESS, TAB Metoprolol Succinate (Metoprolol Succinate) 25 Mg Tab.er.24h 25 MG PO DAILY, #30 TAB 4 Refills Perkins 3 Polyunsat Fatty Acids (Fish Oil 1,000 mg Capsule) 1,000 Mg Cap 1000 MG PO BID WITH MEALS, #100 CAP 3 Refills Ondansetron (Ondansetron Odt) 4 Mg Tab.rapdis 4 MG PO Q6H for Nausea, TAB Oxybutynin Chloride (Oxybutynin Chloride ER) 10 Mg Tab.er.24 10 MG PO DAILY, TAB Pantoprazole Sodium (Pantoprazole Sodium) 40 Mg Tablet.dr 40 MG PO DAILY, #30 TAB 3 Refills [pen needle 32g 5/16] () 1 BOX 1 for 90 Days, #90 B 6 Refills 32 guage 5/16 inch needles for insulin pen use with levemir rx Venlafaxine HCl (Venlafaxine HCl ER) 150 Mg Cap.er.24h 150 MG PO DAILY, CAP KALI BRUNO MD FACP FAC CCDS July 16, 2021 09:14
--- NOTE | 2021-07-16 09:14 | Discharge Inst-Post CATH ---
Discharge Inst-CATH/EP Post Cardiac Cath/EP D/C Inst Follow Up/Plan F/u with Dr Hoskins in 2-3 weeks ACTIVITY * Go Home directly and rest. * Limit activity of the leg (or wrist if it was used) for 7 days including aerobics, swimming, jogging, bicycling, etc. * Restrict stair-climbing for 7 days if possible, if not, climb up with your n on-cath leg, then bring together on the same step. * Avoid lifting, pushing, pulling or excessive movement of the affected ex tremity for 7 days. * Customary sexual activity may be resumed after 2 days-use caution not to use a position that strains or causes pain to the affected extremity. * No driving for 24 hours. * NO SMOKING. * Avoid straining for bowel movements for 7 days. * Gentle walking on level ground is allowed. * Returning to work will depend on the type of procedure and the results. Your doctor will discuss this with you. CALL YOUR DOCTOR FOR ANY OF THE FOLLOWING: *If bleeding from the puncture site occurs- Apply gentle pressure to site with clean cloth and call your doctor or EMS. * If a knot or lump forms under the skin, increases in size, or causes pain. * If bruising appears to be worsening or moving further down your leg instead of disappearing. * Temperature above 101 F. CARE OF YOUR GROIN INCISION; * Bruising or purple discoloration of the skin near the puncture site is common. * You may shower only, no bathtub bathing for 5 days. Be careful to avoid slipping as your leg may feel stiff. * If a closure device was used on your femoral artery, please see the attached guide regarding care of the device and your leg. * Leave dressing on FOR 24 hours. CARE OF YOUR WRIST INCISION; * Bruising or purple discoloration of the skin near the puncture site is common. * You may shower. * DO NOT submerge wrist. * Leave dressing on FOR 24 hours. KALI HOSKINS MD FACP FAC CCDS July 16, 2021 09:14
[2021-07-16] MEDS ORDERED: PATIENT MAY USE OWN MEDS, ALL PO SCH (09:15)
[2021-07-16] MEDS ORDERED: NS IV 1000 ML 1,000 ML IV SCH (09:15)
--- NOTE | 2021-07-16 11:38 | CARDIAC CATHETERIZATION ---
DATE OF SERVICE: 07/16/2021 CARDIAC CATHETERIZATION REPORT The patient is a 55-year-old lady with a history of coronary artery disease and continuing risk factors. Myocardial perfusion imaging carried out on 06/21/2021 showed inferolateral myocardial infarction with a small to moderate amount of efrain-infarct ischemia. Cardiac catheterization was carried out after having obtained an informed consent. DESCRIPTION OF PROCEDURE: She was brought to the cardiac catheterization laboratory in a fasting state. Right groin was prepared and draped in the usual sterile fashion. Lidocaine 1% was used for local anesthesia. Modified Seldinger technique was used to advance a 5-Monegasque sheath into the right femoral artery. We used 5-Monegasque JL4 catheter for left coronary angiography and 5-Monegasque JR4 catheter for right coronary angiography. We used 5-Monegasque JR4 catheter for left heart catheterization and left ventricular angiography. Angiography of the right femoral artery was carried out through the sheath at the beginning of the procedure. At the end of the procedure, Mynx was used to achieve hemostasis following sheath removal. She tolerated the procedure well. HEMODYNAMICS: Left ventricular end-diastolic pressure following coronary angiography was 8 mmHg. There was no significant pressure gradient on pullback across the aortic valve. Ascending aortic pressure was 100/54 with a mean of 72 mmHg. CORONARY ANGIOGRAPHY: Left main coronary artery is free of significant disease. Left anterior descending artery has mild plaques. The first diagonal branch of left anterior descending artery has moderately severe proximal stenosis. This vessel is of a small caliber and does not appear amenable to intervention. The left circumflex artery had diffuse mild to moderate plaque. There did not appear to be significant focal stenosis in the left circumflex. The right coronary artery is dominant. It has a patent stent in its proximal to mid portion. The right coronary artery has diffuse mild to moderate plaque. LEFT VENTRICULAR ANGIOGRAPHY: Left ventricular angiography was carried out in the right anterior oblique projection. Only a small amount of contrast was used. The study is not adequate for wall motion analysis. Global left ventricular systolic function appears well preserved and left ventricular ejection fraction approximately 60%. CONCLUSIONS: 1. Coronary artery disease as described above. The right coronary artery exhibits a patent stent in its mid portion. There is mild to moderate diffuse plaque of all coronary arteries. A small caliber first diagonal of the left anterior descending has moderately severe proximal disease, but is of too small a caliber for intervention. 2. Well-preserved global left ventricular systolic function with ejection fraction of approximately 60%. 3. Normal left ventricular end-diastolic pressure. DISCUSSION AND RECOMMENDATIONS: Based on results of the study, it appears appropriate to continue a conservative approach. Risk factor modification has been reviewed. Current regimen is being continued. Outpatient followup is advised. Job ID: [id number] DocumentID: [id number] Dictated Date: 07/16/2021 09:19:59 Row Boss Hoeing Date: 07/16/2021 11:37:52 Dictated By: KALI BRUNO MD, MA, FACP, FACC, MTDD
== END 2021-07-16 12:20 | disposition home or self-care (01) ==
LOC: CATH 08:00 → SDC 09:33 → CATH 12:20
PROVIDERS: ATTEND Internal Medicine Cardiovascular Disease
DX: I25.10 Atherosclerotic heart disease of native coronary artery without angina pectoris (principal); I11.9 Hypertensive heart disease without heart failure; I25.2 Old myocardial infarction; E78.2 Mixed hyperlipidemia; Z79.4 Long term (current) use of insulin; Z95.5 Presence of coronary angioplasty implant and graft; Z79.899 Other long term (current) drug therapy; Z85.038 Personal history of other malignant neoplasm of large intestine; Z79.82 Long term (current) use of aspirin
CPT/HCPCS: 80053; 80061; 82947; 85027; 85610; 85730; 87081; 93005; 93458; C1760; C1894; 36415

== ENCOUNTER → 2022-04-25 | Outpatient (CLI) | payer BC ==
[~2022-04-25] MED LIST changes: -HEParin (CATH LAB) 2,000 ML IV ONE; +HOLD METFORMIN - RECEIVED CONTRAST 20 ML VIAL IV SCH; +IOHEXOL 350 MG/ML 100 ML (OMNIPAQUE 350) VIAL IV ONE; -LIDOCAINE 1% INJ 20 ML VIAL ONE; -MIDAZOLAM 5 MG/5 ML (VERSED) VIAL ONE; +NS 100 ML (IVPB) BAG IV ONE; -NS IV 1000 ML 1,000 ML IV SCH; -NS IV 1000 ML 1,000 ML ONE; -fentaNYL INJ 100 MCG/2 ML AMP ONE
--- NOTE | 2022-04-25 10:20 | Diagnostic Imaging Report ---
PROCEDURE: CT neck soft tissue with contrast. TECHNIQUE: Multiple contiguous axial images were obtained through the neck after the administration of contrast. Auto Exposure Controls were utilized during the CT exam to meet ALARA standards for radiation dose reduction. INDICATION: Mass at the base of the neck on the right. COMPARISON: 02/15/2016. FINDINGS: Lymphadenopathy is seen in the base of the neck on the left, with a marker lymph node measuring 3.3 x 2.1 cm and 2.0 cm craniocaudal. At least 4 separate pathologically enlarged lymph nodes are seen in this area. Mildly prominent cervical lymph nodes are seen in the more superior neck. The posterior nasopharynx and oropharynx demonstrate appropriate symmetry. There is no displacement of the parapharyngeal fat planes. There is no abnormal process evident within the prevertebral or retropharyngeal space. There is no evidence of abnormal thickening of the epiglottis or aryepiglottic folds. The vocal folds appear symmetric. The parotid, submandibular and thyroid gland are unremarkable. The vascular structures the neck demonstrate no evidence of high-grade stenosis on this nondedicated exam. The visualized lung apices are clear. The visualized intracranial contents demonstrate no evidence of pathologic intracranial enhancement or intracranial mass effect. There is partial visualization of a STRATEGIC BUYER shunt. Visualized orbital contents are unremarkable. The visualized paranasal sinuses are clear. The mastoids and middle ears are clear. No acute osseous abnormality in the cervical spine. Impression: 1. Pathologically enlarged lymph nodes in the base of the neck on the left. Recommend correlation with patient history and consider ultrasound with FNA to further evaluate. 2. No mass or fluid collection is seen in the aerodigestive tract. Dictated by: Dictated on workstation # [id number]
== END ==
LOC: RAD 08:15
PROVIDERS: ATTEND Nurse Practitioner Family
DX: R59.9 Enlarged lymph nodes, unspecified (principal)
CPT/HCPCS: 70491

== ENCOUNTER → 2022-05-06 | Day surgery (SDC) | payer BC ==
[~2022-05-06] VITALS: Ht 170.2 cm; Wt 95.5 kg
[~2022-05-06] MED LIST changes: +ENAL-66 PO; -ENLP5T PO; -HOLD METFORMIN - RECEIVED CONTRAST 20 ML VIAL IV SCH; -IOHEXOL 350 MG/ML 100 ML (OMNIPAQUE 350) VIAL IV ONE; +LIDOCAINE 1% INJ 30 ML (XYLOCAINE) VIAL INJ ONE; +LIDOCAINE 1% INJ 30 ML (XYLOCAINE) VIAL ONE; -NS 100 ML (IVPB) BAG IV ONE
--- NOTE | 2022-05-06 10:13 | Diagnostic Imaging Report ---
INDICATION: Left neck lymphadenopathy. Patient presents for ultrasound-guided core biopsy. DETAILS OF THE PROCEDURE: The patient was brought to the procedure room and placed on the table in the supine position. Ultrasound imaging over the left neck was performed to evaluate for an appropriate entry site. The left neck was then prepped and draped in the usual sterile fashion. A small amount of 1% lidocaine was utilized for local anesthesia. A total of 5 core biopsies was obtained of a dominant lymph node in the lower left neck utilizing an 18-gauge Temno biopsy needle. One specimen was sent for flow cytometry. Hemostasis was obtained. The patient tolerated the procedure well and left the Department in stable condition. IMPRESSION: Successful ultrasound guided core biopsy of lower left neck lymphadenopathy. Pathology results are currently pending. Dictated by: Dictated on workstation # [id number]
== END ==
LOC: RAD 08:43
PROVIDERS: ATTEND Family Medicine
DX: R59.0 Localized enlarged lymph nodes (principal)
CPT/HCPCS: 76942

== ENCOUNTER → 2022-05-12 | Outpatient (CLI) | payer BC ==
[~2022-05-12] MED LIST changes: +HOLD METFORMIN - RECEIVED CONTRAST 20 ML VIAL IV SCH; +IOHEXOL 350 MG/ML 100 ML (OMNIPAQUE 350) VIAL IV ONE; -LIDOCAINE 1% INJ 30 ML (XYLOCAINE) VIAL INJ ONE; -LIDOCAINE 1% INJ 30 ML (XYLOCAINE) VIAL ONE; +NS 100 ML (IVPB) BAG IV ONE
--- NOTE | 2022-05-12 15:29 | Diagnostic Imaging Report ---
EXAMINATION: CT neck, chest, abdomen, and pelvis with intravenous contrast. TECHNIQUE: Multiple contiguous axial images were obtained through the neck, chest, abdomen and pelvis after the uneventful administration of intravenous contrast. All CT scans use one or more of the following dose optimizing techniques: automated exposure control, MA and/or KvP adjustment based on patient size and exam type or iterative reconstruction. HISTORY: Neck mass, metastatic carcinoma. COMPARISON: 04/25/2022. FINDINGS: NECK CT: There are redemonstrated prominent bilateral cervical chain lymph nodes with the largest measuring 1.0 x 0.6 cm in the right submandibular neck (series 6, image 47). Vessels of the neck demonstrate normal course and caliber. Fascial planes are preserved and the deep spaces of the neck are normal. The visualized airway is widely patent. The base of the skull and the temporal bones are normal. Limited views of the brain including the cerebellum and brainstem are normal. The visualized portions of the orbits are normal. No suspicious osseous lesion or compression fracture. CHEST CT: Thyroid: The visualized thyroid gland is normal. Mediastinum: Heart size is normal without significant pericardial effusion. The aorta is normal in caliber. There are multiple enlarged left supraclavicular lymph nodes. A retention representative node measures 3.4 x 2.5 cm (series 6, image 77). This is unchanged from 04/25/2022. There is no suspicious axillary or mediastinal lymphadenopathy seen. Lungs and airways: The lungs are clear without consolidation, pleural effusion, or pneumothorax. No suspicious pulmonary nodule. The airways are normal. ABDOMEN AND PELVIS CT: Solid organs: The liver is normal without focal lesion. The gallbladder is surgically absent. There is no biliary ductal dilation. Pancreas is normal. Spleen is normal. Adrenal glands are normal. The kidneys are normal without hydronephrosis. Bowel: The stomach and small bowel are normal without obstruction. The colon and appendix are normal. Peritoneum: There is no intraperitoneal free fluid or free air. There are multiple enlarged retroperitoneal and left iliac chain lymphadenopathy. A retention representative left retroperitoneal lesion measures 5.4 x 4.5 cm (series 2, image 160). Vasculature: Calcification of the aorta without aneurysm. Musculoskeletal: Degenerative changes of the spine without suspicious osseous lesion or compression fracture. A YOUTH ACCOMMODATION SUPPORT WORKER shunt is present terminating within the pelvis. Pelvis: The uterus and adnexa are normal. The urinary bladder is normal. IMPRESSION: 1. Multiple enlarged left supraclavicular and left retroperitoneal and iliac chain lymph nodes which are highly concerning for irma metastatic disease or lymphoma. Consider ultrasound-guided biopsy of the left supraclavicular lymph nodes for more definitive characterization. 2. No acute abnormality or suspicious findings within the neck, chest, abdomen, or pelvis. Dictated by: Dictated on workstation # [id number]
== END ==
LOC: RAD 14:10
PROVIDERS: ATTEND Nurse Practitioner Family
DX: C79.9 Secondary malignant neoplasm of unspecified site (principal); R22.1 Localized swelling, mass and lump, neck
CPT/HCPCS: 70491; 71260; 74176

== ENCOUNTER 2022-05-28 05:28 | Outpatient (CLI) | payer BC ==
[~2022-05-28] VITALS: Ht 170.2 cm; Wt 92.1 kg
[~2022-05-28 05:28] MED LIST changes: -HOLD METFORMIN - RECEIVED CONTRAST 20 ML VIAL IV SCH; -IOHEXOL 350 MG/ML 100 ML (OMNIPAQUE 350) VIAL IV ONE; -NS 100 ML (IVPB) BAG IV ONE
[2022-05-28] MEDS ORDERED: BIOT10004 PO (09:22)
[2022-05-28] MEDS ORDERED: LEVO-131 PO (09:47)
[2022-05-28] MEDS ORDERED: ENAL-66 PO (09:47)
[2022-05-29] MEDS ORDERED: TRM50T PO (08:26)
== END 2022-05-28 09:49 | disposition home or self-care (01) ==
LOC: PREOP 05:28
PROVIDERS: ATTEND Surgery
DX: Z01.818 Encounter for other preprocedural examination (principal)

== ENCOUNTER 2022-05-29 07:34 | Day surgery (SDC) | payer BC ==
[~2022-05-29] VITALS: Ht 170 cm; Wt 92.1 kg
[2022-05-29] VITALS (11 sets, daily range): BP systolic 107–152; BP diastolic 55–67
[~2022-05-29 07:34] MED LIST changes: +BIOT10004 PO; -ENAL10TA16 PO; +ENLP10T PO; -INSU100I29 SQ; +INSU100I30 SQ; +LEVO-131 PO
[2022-05-29] MEDS ORDERED: BUP/EPI 0.5% 1:200,000 (SENSORCAINE) 30 ML VIAL ONE (07:41)
[2022-05-29] MEDS ORDERED: LACTATED RINGERS 1,000 ML IV PRN (07:45)
[2022-05-29] MEDS ORDERED: ceFAZolin INJECTION 2,000 MG in NS (IVPB) 50 ML IV ONE (07:45)
--- NOTE | 2022-05-29 07:47 | Progress Note-Pre Operative ---
Pre-Operative Progress Note Date H&P Reviewed: May 29, 2022 Time H&P Reviewed: 07:34 History & Physical: H&P Reviewed, Patient Examed, No changes noted Pre-Operative Diagnosis: left neck mass JACKY RAMOS DO May 29, 2022 07:47
[2022-05-29] MEDS ORDERED: TRM50T PO (08:26)
--- NOTE | 2022-05-29 08:31 | Discharge Inst-Simple/Standard ---
Discharge Inst-Standard Discharge Medications New, Converted or Re-Newed RX: Transmitted to Pharmacy Patient Instructions/Follow Up Plan of Care/Instructions/FU: 2 weeks Yahaira Activity as Tolerated: No Discharge Diet: Regular Diet Other Inst to Patient Follow up Appt: Make appointment for 2 week. Instructions: No strenuous activity. May shower in 24 hours, no tub bath or soaking. Use incentive spirometer at home as directed. No Smoking Skin/Wound Care: You have special glue over your incision that will fall off on it's own. Symptoms to Report: Appetite Changes, Extremity Discoloration, Numbness/Tingling, Swelling Increased, Bleeding Excessive, Eyesight Changes, Pain Increased, Urine Color Change, Constipation(Persistent), Fever over 101 degree F, Pain/Pressure in chest, Urinating Difficulty, Cough Up/Vomit Blood, Heart Beat Irreg/Pounding, Pain/Pressure in jaw, Vaginal Bleeding Increase, Cramps in feet or legs, Lightheadedness, Pain/Pressure in shoulder, Diarrhea(Persistent), Memory Changes Suddenly, Questions/Concerns, Weight gain consecutive days, Dizziness/Fainting, Nausea/Vomiting, Shortness of Breath, Weight gain over 2 pounds If questions or concerns contact your physician Or seek help at emergency department. JACKY RAMOS DO May 29, 2022 08:31
--- NOTE | 2022-05-29 08:32 | Progress Note-Post Operative ---
Post-Operative Progess Note Surgeon (s)/Ski Patrol Officer (s) Surgeon JACKY RAMOS DO Ski Patrol Officer: na Pre-Operative Diagnosis left neck mass Post-Operative Diagnosis same Procedure & Operative Findings Date of Procedure 05/29/22 Procedure Performed/Findings excision left neck mass Anesthesia Type general Estimated Blood Loss Estimated blood loss (mL): minimal Specimens/Packing Specimens Removed neck mass JACKY RAMOS DO May 29, 2022 08:32
[2022-05-29] MEDS ORDERED: HYDROmorphone 2 MG/ML VIAL (DILAUDID) IV ONE (08:45)
[2022-05-29] MEDS ORDERED: ONDANSETRON 4 MG/2 ML (SDV) Z0FRAN IVP PRN (08:45)
--- NOTE | 2022-05-29 09:47 | OPERATIVE REPORT ---
DATE OF SERVICE: 05/29/2022 PREOPERATIVE DIAGNOSIS: Left neck mass. POSTOPERATIVE DIAGNOSIS: Left neck mass. PROCEDURE: Excision of left neck mass, 2.5 x 3 x 1.5 cm. SURGEON: Jacky Syed DO ANESTHESIA: General. ESTIMATED BLOOD LOSS: Minimal. COMPLICATIONS: None. INDICATIONS: The patient is a 56-year-old female who had a left neck mass present and had further workup demonstrating metastatic carcinoma with papillary features, needing more tissue and excision of the mass. She understands risks and benefits of procedure and wished to proceed. Consent was signed in chart. DESCRIPTION OF PROCEDURE: The patient was taken to the operating suite. She was prepped and draped in sterile fashion. Timeout was performed. Local anesthetic was infiltrated and #15 blade scalpel was used to make a skin incision over the palpable mass. Cautery was used to dissect down through subcutaneous tissues, muscle was encountered, which had to be divided and the mass was able to be palpated. A blunt and cautery dissection was used to remove the mass. Hemostasis was achieved. Specimen was sent fresh. The wound was irrigated with copious amounts of irrigation. The subcutaneous tissues then reapproximated using 3-0 Vicryl. Skin was then closed with skin Affix. The patient tolerated the procedure well without complications, taken to recovery room in stable condition. Job ID: [id number] DocumentID: [id number] Dictated Date: 05/29/2022 08:35:37 Lead Injection Mold Technician Date: 05/29/2022 09:45:00 Dictated By: JACKY SYED DO
--- NOTE | 2022-05-29 10:18 | Anesthesia-General Post-Op ---
General Patient Condition Mental Status/LOC: Same as Preop Cardiovascular: Satisfactory Nausea/Vomiting: Absent Respiratory: Satisfactory Pain: Controlled Complications: Absent Post Op Complications Complications None Follow Up Care/Instructions Patient Instructions None needed. Anesthesia/Patient Condition Patient Condition Patient is doing well, no complaints, stable vital signs, no apparent adverse anesthesia problems. No complications reported per nursing. D/C home per [facility] [place] Criteria: Yes YADY BRYANT CRNA May 29, 2022 10:17
== END 2022-05-29 10:15 | disposition home or self-care (01) ==
LOC: SDC 07:34
PROVIDERS: ATTEND Surgery
DX: C96.9 Malignant neoplasm of lymphoid, hematopoietic and related tissue, unspecified (principal); C79.9 Secondary malignant neoplasm of unspecified site; I25.10 Atherosclerotic heart disease of native coronary artery without angina pectoris; R94.31 Abnormal electrocardiogram [ECG] [EKG]; I11.9 Hypertensive heart disease without heart failure; E78.2 Mixed hyperlipidemia; Z95.5 Presence of coronary angioplasty implant and graft
CPT/HCPCS: 82947; 87081

== ENCOUNTER 2022-07-07 05:31 | Outpatient (CLI) | payer BC ==
[~2022-07-07] VITALS: Ht 170.1 cm; Wt 96.2 kg
[~2022-07-07 05:31] MED LIST changes: +TRM50T PO
[2022-07-08] MEDS ORDERED: LEVO112C4 PO (13:20)
[2022-07-08] MEDS ORDERED: SOLI5TAB7 PO (13:20)
== END 2022-07-08 13:27 | disposition home or self-care (01) ==
LOC: PREOP 05:31
PROVIDERS: ATTEND Surgery
DX: Z01.818 Encounter for other preprocedural examination (principal)

== ENCOUNTER 2022-07-09 10:26 | Day surgery (SDC) | payer BC ==
[~2022-07-09] VITALS: Ht 170 cm; Wt 96.2 kg
[2022-07-09] VITALS (7 sets, daily range): BP systolic 113–144; BP diastolic 58–70
[~2022-07-09 10:26] MED LIST changes: +LEVO112C4 PO; +SOLI5TAB7 PO
[2022-07-09] MEDS ORDERED: LIDOCAINE/EPI 1%-1:100,000 (XYLOCAINE) 20ML ONE (10:31)
[2022-07-09] MEDS ORDERED: 0.9% SODIUM CHLORIDE PF INJ 20 ML VIAL ONE (10:31)
[2022-07-09] MEDS ORDERED: HEParin (CENTRAL IV FLUSH) 500 UNIT/5 ML SYR ONE (10:31)
[2022-07-09] MEDS ORDERED: HEParin (CENTRAL IV FLUSH) 500 UNIT/5 ML SYR IV ONE (11:00)
[2022-07-09] MEDS ORDERED: ceFAZolin INJECTION 2,000 MG in NS (IVPB) 50 ML IV ONE (11:15)
[2022-07-09] MEDS ORDERED: LACTATED RINGERS 1,000 ML IV PRN (11:15)
[2022-07-09] MEDS ORDERED: PROPOFOL INJECTION 50 ML IV ONE (11:16)
[2022-07-09] MEDS ORDERED: MIDAZOLAM 2 MG/2 ML (VERSED) VIAL ONE (11:16)
--- NOTE | 2022-07-09 11:26 | Progress Note-Pre Operative ---
Pre-Operative Progress Note Date H&P Reviewed: July 09, 2022 Time H&P Reviewed: 11:25 History & Physical: H&P Reviewed, Patient Examed, No changes noted Pre-Operative Diagnosis: metastatic carcinoma JACKY RAMOS DO July 09, 2022 11:26
[2022-07-09] MEDS ORDERED: LIDOCAINE/EPI 1%-1:100,000 (XYLOCAINE) 20ML INJ ONE (12:23)
[2022-07-09] MEDS ORDERED: 0.9% SODIUM CHLORIDE PF INJ 20 ML VIAL IV ONE (12:24)
--- NOTE | 2022-07-09 12:39 | Discharge Inst-Simple/Standard ---
Discharge Inst-Standard Patient Instructions/Follow Up Plan of Care/Instructions/FU: 2 weeks Yahaira Activity as Tolerated: No Discharge Diet: Regular Diet Other Inst to Patient Follow up Appt: Make appointment for 2 week. Instructions: No lifting greater than 10 pounds. No strenuous activity. May shower in 24 hours, no tub bath or soaking. Use incentive spirometer at home as directed. No Smoking Skin/Wound Care: You have special glue over your incision that will fall off on it's own. Ice pack on 15 min and off 30 min for first 48 hrs, this reduces swelling and discomfort. Symptoms to Report: Appetite Changes, Extremity Discoloration, Numbness/Tingling, Swelling Increased, Bleeding Excessive, Eyesight Changes, Pain Increased, Urine Color Change, Constipation(Persistent), Fever over 101 degree F, Pain/Pressure in chest, Urinating Difficulty, Cough Up/Vomit Blood, Heart Beat Irreg/Pounding, Pain/Pressure in jaw, Vaginal Bleeding Increase, Cramps in feet or legs, Lightheadedness, Pain/Pressure in shoulder, Diarrhea(Persistent), Memory Changes Suddenly, Questions/Concerns, Weight gain consecutive days, Dizziness/Fainting, Nausea/Vomiting, Shortness of Breath, Weight gain over 2 pounds If questions or concerns contact your physician Or seek help at emergency department. JACKY RAMOS DO July 09, 2022 12:39
--- NOTE | 2022-07-09 12:44 | Progress Note-Post Operative ---
Post-Operative Progess Note Surgeon (s)/Carpet Loom Fixer (s) Surgeon JACKY RAMOS DO Carpet Loom Fixer: na Pre-Operative Diagnosis metastatic carcinoma Post-Operative Diagnosis same Procedure & Operative Findings Date of Procedure 07/09/22 Procedure Performed/Findings PROCEDURE: Right internal jugular port placement using ultrasound guidance. COMPLICATIONS: None. INDICATIONS: The patient is a 56 year old female with metastatic carcinoma. Patient understands the risks and benefits of port placement and wished to proceed with the procedure. Consent was signed on the chart. PROCEDURE: The patient was taken to the operating suite, was prepped and draped in the sterile fashion. A surgical pause was performed. Ultrasound was used to locate the internal jugular vein. Once located anesthetic was infiltrated above it. Using micro-access kit, the right internal vein was accessed. Dark nonpulsatile blood was withdrawn. The wire was inserted. Fluoroscopy assured proper placement. The needle was removed. The micro-access dilator was advanced over the wire and the wire was removed. The regular wire was inserted and fluoroscopy assured proper placement. The wire was then secured. Local anesthetic was used to anesthetize from the neck for tunneling down to the right chest and for pocket creation. A 15 blade scalpel was used to make an incision over the right chest. Cautery was used to dissect down to the pectoral fascia. A pocket was created with blunt dissection. The dilator sheath was then advanced over the wire under fluoroscopy and the dilator and wire were removed. The Groshong catheter was inserted through the sheath and the sheath was then removed. The Groshong wire was removed. The catheter was then tunneled to the right chest pocket. Fluoroscopy was used to cut to length and this was then attached to the port which was then placed within the pocket. The port was then accessed without difficulty. It was then flushed with saline and then heparin. The subcutaneous tissues were then reapproximated using 3-0 Vicryl. The areas were then washed and dried. Skin Affix was placed over incision. The insertion point of the neck Skin Affix was placed over the incision. The patient tolerated the procedure well without complication and was taken to recovery room in stable condition. Chest x-ray is pending. Anesthesia Type mac c local Estimated Blood Loss Estimated blood loss (mL): minimal Specimens/Packing Specimens Removed JACKY Quijano DO July 09, 2022 12:44
--- NOTE | 2022-07-09 12:50 | Anesthesia-General Post-Op ---
MAC Patient Condition Mental Status/LOC: Same as Preop Cardiovascular: Satisfactory Nausea/Vomiting: Absent Respiratory: Satisfactory Pain: Controlled Complications: Absent Post Op Complications Complications None Follow Up Care/Instructions Patient Instructions None needed. Anesthesiology Discharge Order Discharge Order Patient is doing well, no complaints, stable vital signs, no apparent adverse anesthesia problems. No complications reported per nursing. JADEN MARTINEZ CRNA July 09, 2022 12:50
--- NOTE | 2022-07-09 13:27 | Diagnostic Imaging Report ---
CHEST 1 VIEW, AP/PA ONLY Indication: Port-A-Cath placement Comparison: 01/18/2017 Findings: Right IJ Port-A-Cath is well-positioned with tip terminating in the mid SVC. No pleural effusion or pneumothorax. The lungs are clear. Normal heart size. Impression: 1. Well-positioned right IJ Port-A-Cath without pneumothorax. Dictated by: Dictated on workstation # [id number]
[2022-07-09] MEDS ORDERED: HYDROcodone/APAP 5 MG/325 MG (LORTAB) TAB PO ONE (13:30)
[2022-07-09] MEDS ORDERED: HYDROcodone/APAP 5 MG/325 MG (LORTAB) TAB ONE (13:33)
--- NOTE | 2022-07-09 19:20 | Diagnostic Imaging Report ---
INDICATION: Port-A-Cath placement Single view obtained with a portable intensifier in surgery during Port-A-Cath placement. 19.5 seconds of fluoroscopy time was used. Intraoperative view demonstrates port over the right chest with catheter into the right internal jugular vein and catheter tip overlying the SVC right atrial junction. IMPRESSION: Intraoperative views obtained during Port-A-Cath placement as above. Dictated by: Dictated on workstation # [id number]
== END 2022-07-09 13:47 | disposition home or self-care (01) ==
LOC: SDC 10:26
PROVIDERS: ATTEND Surgery
DX: C77.9 Secondary and unspecified malignant neoplasm of lymph node, unspecified (principal); C18.9 Malignant neoplasm of colon, unspecified; I87.2 Venous insufficiency (chronic) (peripheral); K21.9 Gastro-esophageal reflux disease without esophagitis
CPT/HCPCS: 36561; 71045; 76000; 87081; C1788